=== PATIENT | male | born 1965 | race Caucasian/White ===

== ENCOUNTER 2020-09-09 10:30 | Outpatient (REF) | payer OTHER, SELFPAY ==
--- NOTE | 2020-09-09 | US_ITS ---
EXAMINATION: US COMPLETE ABDOMEN WITH LIVER ELASTOGRAPHY CLINICAL INFORMATION: Chronic viral hepatitis seen. COMPARISON: None. TECHNIQUE: Real-time imaging of the abdominal viscera. Noninvasive ultrasound liver fibrosis assessment is performed using Rusty ElastPQ point quantification shear wave elastography (pSWE) with a 5 MHz transducer. Multiple elastography samples are obtained. FINDINGS: PANCREAS: The pancreas is completely obscured by overlying gas. ABDOMINAL AORTA: The proximal abdominal aorta is normal caliber. The [id number]-[id number] abdominal aorta is obscured by overlying gas. INFERIOR VENA CAVA: Visualized portions are normal. LIVER: The liver demonstrates increased size, normal contour and increased echogenicity. No focal lesion or intrahepatic biliary duct dilatation. The right lobe measures 18.0 cm in length. The left lobe measures 13.2 cm in length. There is normal hepatopedal flow seen in the portal vein. Shear wave elastography provides a median stiffness of 1.65 m/s (reference: normal median stiffness is 0.81 - 1.22 m/s). The IQR/median stiffness to assess sampling precision is 0.06 (reference: optimal IQR/median stiffness is under 0.3). GALLBLADDER: The gallbladder is contracted with echogenic bile noted. COMMON BILE DUCT: Normal in caliber measuring 1.0 cm in diameter. RIGHT KIDNEY: There is anechoic cyst midpole measuring 1.7 x 1.7 x 1.4 cm right No hydronephrosis. No renal calculi or focal parenchymal lesions. The kidney measures 11.5 cm in maximum dimension. LEFT KIDNEY: The kidney measures 11.2 cm in maximum dimension. There is an anechoic cyst in the upper pole measuring 2.1 x 2.1 x 1.9 cm. A complex cyst seen in lower pole measuring 3.5 x 3.1 x 3.1 cm. There is a nonobstructive echogenic stone upper pole measuring 0.3 x 0.2 x 0.3 cm. SPLEEN: Normal. The spleen measures 11.4 cm in maximum dimension. FREE FLUID: None. US/US abdomen comp w elastography IMPRESSION: 1. Hepatomegaly with increased echogenicity. 2. Echogenic bile in a contracted gallbladder. 3. Bilateral renal cysts with a complex lower pole left renal cyst and a nonobstructive echogenic stone upper pole left kidney. 4. The pancreas is not visualized. 5. Elastography: [id number] fibrosis.
== END 2020-09-09 10:31 | disposition home or self-care (01) ==
LOC: HO.US 10:30
PROVIDERS: Visit Provider Family Medicine
DX: B18.2 Chronic viral hepatitis C (principal)
CPT/HCPCS: 76705; 76981

== ENCOUNTER 2022-06-13 09:21 | Emergency (ER) | payer OTHER, SELFPAY ==
--- NOTE | ~2022-06-13 | XR_ITS ---
EXAMINATION: XR WRIST-RIGHT CLINICAL INFORMATION: Status post fall, pain. COMPARISON: None TECHNIQUE: 3 views of the right wrist and dedicated view of the navicular, total of 4 images were obtained. FINDINGS: Moderate diffuse osteopenia. Moderate to severe osteoarthrosis is noted at the radiocarpal joint with evidence of widening of the scapholunate joint space, consistent with underlying scapholunate ligamentous tear. Mild osteoarthrosis at the distal radioulnar joint. Cystic changes are noted within the lunate, most consistent with posttraumatic and/or postsurgical degenerative changes. The carpal bones are intact. Mild osteoarthrosis is noted at the first carpometacarpal joint. Distal tapering is noted at the terminal phalanx of the index finger, most consistent with old posttraumatic change. No evidence of any displaced fracture, subluxation or dislocation. No radiopaque foreign body. XR/XR hand wrist RT IMPRESSION: 1. Moderate diffuse osteopenia. 2. Moderate to severe osteoarthrosis of the radiocarpal joint and features of scapholunate ligamentous tear. 3. Mild osteoarthrosis at the first carpometacarpal joint and distal radioulnar joint. 4. Cystic changes within the lunate, may represent posttraumatic and/or post degenerative cysts. 5. Smooth tapering with well-corticated bony involving the terminal phalanx of the second digit, most consistent with old posttraumatic change. 6. No radiographic evidence of any displaced fracture, subluxation or dislocation or radiopaque foreign body.
[2022-06-13 09:33] VITALS: BP 174/90; PULSE 71; RESP 17; TEMP 36.6; O2SAT 98; BMI 29.5
--- NOTE | 2022-06-13 12:16 | ED.EXTPRO ---
HPI - Extremity Problem General Chief complaint: Extremity Injury, Upper Stated complaint: Fall/ R wrist pain Time Seen by Provider: 06/13/22 12:16 Source: patient Mode of arrival: ambulatory Limitations: no limitations History of Present Illness HPI Narrative: 57-year-old male presents to the ER for evaluation of right lateral wrist pain after he fell off of a ladder yesterday. He reports missing the last 3 rungs of the ladder when he was painting in his house, he fell backward onto his buttock and used his right hand to brace himself. He has history of a left hip replacement and did not want a fall onto his left side. He reports swelling and pain in the hand That worsened this morning. He reports pain with any movement of the wrist. He denies any numbness, tingling, weakness. He is left-hand dominant. No other injuries. MD Complaint: joint swelling and joint pain Onset (ago): day(s) (1) Pain Consistency: constant Location: right and upper extremity Severity scale (1-10): 6 Quality: aching Radiation: none Relieving factors: rest and other ( Ice) Exacerbating factors: range of motion and palpation Associated symptoms: denies other symptoms Related Data Home Medications Medication Instructions Recorded Confirmed acamprosate 333 mg tablet,delayed 666 mg PO TID 09/04/20 release albuterol sulfate 2.5 mg/3 mL 2.5 mg inhalation Q4-6H PRN 09/04/20 (0.083 %) solution for nebulization bictegravir 50 mg-emtricitabine 1 tab PO DAILY 09/04/20 200 mg-tenofovir alafenam 25 mg tablet (Biktarvy) buprenorphine 300 mg/1.5 mL mg subcut 09/04/20 solution,exten.rel.subcutaneous syringe (Sublocade) bupropion HCl 150 mg 24 hr tablet, 150 mg PO QAM 09/04/20 extended release fluticasone furoate 100 1 inh inhalation DAILY 09/04/20 mcg-vilanterol 25 mcg/dose inhalation powder (Breo Ellipta) gabapentin 800 mg tablet 800 mg PO TID 09/04/20 hydroxyzine HCl 50 mg tablet 50 mg PO TID 09/04/20 inhalational spacing device #1 ea 09/04/20 (Aerochamber Plus Z Stat spacer) naproxen 500 mg tablet 500 mg PO BID 09/04/20 omeprazole 40 mg capsule,delayed 40 mg PO DAILY 09/04/20 release prazosin 1 mg capsule 1 mg PO BEDTIME 09/04/20 quetiapine 300 mg tablet 300 mg PO DAILY 09/04/20 sulfamethoxazole 800 1 tab PO Q12H 09/04/20 mg-trimethoprim 160 mg tablet (Bactrim DS) Previous Rx's Medication Instructions Recorded ibuprofen 600 mg tablet 600 mg PO Q8H PRN pain #20 tabs 06/13/22 Allergies Allergy/AdvReac Type Severity Reaction Status Date / Time No Known Allergies Allergy Unverified 06/11/20 16:55 [No Known Allergies*] Review of Systems Review of Systems: Constitutional: No Fever, No Chills Cardiovascular: No Chest Pain, No SOB Gastrointestinal: No Nausea, No Vomiting Musculoskeletal: + joint pain, No Myalgias Skin: No Skin Lesions, No rash Neuro: No Weakness, No Numbness, No Dizziness, No Headache Psych: No Anxiety/Panic, No Depression Heme/Lymph: No Bruising, No Lymphadenopathy PMFSH Past Medical History Medical History (Updated 06/13/22 @ 12:21 by THU Sung) Colitis COPD (chronic obstructive pulmonary disease) Hepatitis C HIV infection Hypertension IBS (irritable bowel syndrome) Opioid dependence Osteoarthritis of both hips Prediabetes PTSD (post-traumatic stress disorder) Surgical History (Updated 09/04/20 @ 13:45 by Rachelle Reyes CMA) History of right hip replacement Status post right shoulder hemiarthroplasty Social History Social History Advance Directives: No Advance Directives Information Provided: No Physical Exam Vital Signs: Vital Signs: Last Vital Signs Temp 98 F 06/13/22 09:33 Pulse 71 06/13/22 09:33 Resp 17 06/13/22 09:33 BP 174/90 H 06/13/22 09:33 Pulse Ox 98 06/13/22 09:33 O2 Del Method 06/13/22 09:33 BMI result Body Mass Index 29.5 Appearance: Alert. Oriented X3. No acute distress. HEENT: normal inspection CVS: Normal heart rate and rhythm. Pulses normal. Respiratory: No respiratory distress. Skin: Skin warm and dry. Normal skin color. Normal skin turgor. No rashes. Extremities: dorsal right wrist with mild generalized swelling. There is tenderness over the proximal 5th meta carpal as well as the styloid process of the ulna. Pain with flexion and extension of the right wrist. 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 No sensory or motor deficit. Neuro: Oriented X 3. Nonfocal Course Course Course Narrative: 57-year-old male presents to the ER with right wrist pain after he fell yesterday off a ladder, missing the last 3 runs falling back onto his buttock and using his right hand to brace himself. X-ray today does not show any acute fractures. There are multiple chronic findings including osteopenia, osteoarthritis and evidence of old injuries within the right hand. He has tenderness of the ulnar aspect of the wrist and hand, exacerbated by palpation and range of motion of the wrist. Will place in a velcro cock-up wrist splint for immobilization and support. he will follow-up with his PCP. stable for d/c Discharge Plan Discharge Clinical Impression: Sprain and strain of wrist Patient Disposition: Home, Self-Care Instructions: Wrist Sprain (ED) Additional Instructions: Your x-ray today did not show any broken bones but it did show chronic findings of osteopenia, osteoarthrosis and some post traumatic and post degenerative changes within the hand and joints. Recommend wearing the provided wrist splint as needed for comfort and support. Recommend icing your wrist several times per day and elevate whenever possible. Take the prescribed anti-inflammatory pain medication as needed for pain and swelling. Follow up with Orthopedics if you are still having pain despite conservative measures. If you develop new or worsening symptoms call 911 or come back to the ER for further evaluation. Prescriptions: New ibuprofen 600 mg tablet 600 mg PO Q8H PRN (Reason: pain) Qty: 20 0RF Referrals: [facility] [place] [facility] [Provider Group] Shayy Nielson NP [Primary Care Provider] - Discharge Date/Time: 06/13/22 13:14
== END 2022-06-13 13:14 | disposition home or self-care (01) ==
LOC: HO.ED 12:56
PROVIDERS: Emergency Provider Emergency Medicine; PCP Nurse Practitioner Primary Care
DX: S63.501A Unspecified sprain of right wrist, initial encounter (principal); S66.911A Strain of unspecified muscle, fascia and tendon at wrist and hand level, right hand, initial encounter; W11.XXXA Fall on and from ladder, initial encounter; Y93.9 Activity, unspecified; Y92.017 Garden or yard in single-family (private) house as the place of occurrence of the external cause; Y99.9 Unspecified external cause status; M85.841 Other specified disorders of bone density and structure, right hand; M19.031 Primary osteoarthritis, right wrist
CPT/HCPCS: 73110; 73130; 99282; 99283

== ENCOUNTER 2022-09-06 15:48 | Inpatient (IN) | payer OTHER, SELFPAY ==
--- NOTE | 2022-09-06 | ECG_ITS ---
Test Reason : CHEST PAIN Blood Pressure : / mmHG Vent. Rate : 063 BPM Atrial Rate : 063 BPM P-R Int : 134 ms QRS Dur : 076 ms QT Int : 440 ms P-R-T Axes : 026 058 047 degrees QTc Int : 450 ms Normal sinus rhythm Nonspecific T wave abnormality Abnormal ECG When compared with ECG of 26-OCT-2019 21:54, Vent. rate has decreased BY 47 BPM Nonspecific T wave abnormality now evident in Anterior leads Referred By: Generic ED Physician Electronically Signed By:GIULIANO CH
--- NOTE | ~2022-09-06 | XR_ITS ---
EXAMINATION: XR CHEST CLINICAL INFORMATION: Altered mental status COMPARISON: 10/27/2019 TECHNIQUE: Frontal view of the chest was obtained. FINDINGS: Heart size normal. No evidence of CHF. Previously seen multifocal airspace disease has cleared. Some coarse reticulonodular markings are seen at the lung bases. No consolidations, pleural effusions or lung masses are seen. Suture anchor present right humerus. XR/XR chest 1V IMPRESSION: No acute intrathoracic disease.
--- NOTE | ~2022-09-06 | CT_ITS ---
EXAMINATION: CT HEAD WITHOUT CONTRAST CLINICAL INFORMATION: Altered mental status fall. COMPARISON: Prior CT August 2017 TECHNIQUE: Contiguous axial imaging was performed from the skull base to vertex without intravenous administration of contrast. This CT examination was performed using dose optimization techniques as appropriate, variously including the following: *Automated exposure control *Adjustment of mA and/or kV according to patient size (this includes techniques or standardized protocols for targeted exams where dose is matched to indication/reason for exam; i.e. extremities or head) *Use of iterative reconstruction technique DLP: 762 mGy-cm FINDINGS: Soft tissues: Normal. No fracture. Chronic mucosal thickening of the left maxillary sinus new compared to prior. Mastoid air cells clear. There is no intracranial mass hemorrhage or cerebral edema. Ventricles and basal cisterns are unremarkable. CT/CT head/brain wo IV con IMPRESSION: No acute intracranial pathology.
--- NOTE | ~2022-09-06 | CT_ITS ---
EXAMINATION: CT ABDOMEN AND PELVIS WITHOUT CONTRAST CLINICAL INFORMATION: Elevated ammonia with lactic acidosis COMPARISON: Ultrasound abdomen 09/09/2020, CT abdomen pelvis 10/29/2019 TECHNIQUE: Multidetector volumetric imaging was performed from the superior aspect of the liver through the pubic symphysis. Sagittal and coronal reformatted images were obtained on the technologist's workstation. This CT examination was performed using dose optimization techniques as appropriate, variously including the following: *Automated exposure control *Adjustment of mA and/or kV according to patient size (this includes techniques or standardized protocols for targeted exams where dose is matched to indication/reason for exam; i.e. extremities or head) *Use of iterative reconstruction technique DLP: 722 mGy-cm FINDINGS: LUNG BASES: The visualized lung bases are unremarkable. LIVER, GALLBLADDER, AND BILIARY TREE: The liver is normal in size. The border is somewhat nodular. Attenuation is normal, greater than the spleen. No focal mass or bile duct dilatation is seen The gallbladder is unremarkable with no evidence of radiopaque gallstones, gallbladder wall thickening, or obvious pericholecystic inflammatory changes. PANCREAS: Unremarkable. SPLEEN: Unremarkable. ADRENAL GLANDS: Unremarkable. KIDNEYS AND URETERS: Right: The right kidney appears normal aside from the presence of a water density 1.7 cm benign Bosniak class I renal cyst. No pelvocaliectasis or solid renal masses. No nephrolithiasis. Left: There is a 4 mm nonobstructing calculus present at the upper pole left kidney. 2 cysts are present, one in the upper pole measuring 2.2 cm and one in the lower pole measuring 3.8 cm. The larger lower pole cyst has a probable tiny septation which was noted to be complex on ultrasound BLADDER: Detail obscured by bilateral hip prostheses. GASTROINTESTINAL TRACT: The small and large bowel are unremarkable. The appendix is unremarkable. ABDOMINAL WALL: No significant hernia is appreciated. LYMPH NODES: No retroperitoneal lymphadenopathy. VASCULAR: Calcific plaque without aneurysms PELVIC VISCERA: Cannot assess secondary to artifact. OSSEOUS STRUCTURES: Bilateral hip prostheses are present. Degenerative changes are present in the spine. There is a compression fracture of the superior endplate of L4, unchanged from prior. Marked degenerative changes with narrowing present at T12-L1 and L1-L2. CT/CT abdomen pelvis wo IV con IMPRESSION: 1. A cause for the patient's lactic acidosis has not been found. 2. Nodular border of the liver suggests possible cirrhosis. Correlate clinically and with lab values. 3. Incidental note made of bilateral benign Bosniak class I renal cysts which need no further follow-up, nonobstructing left renal calculus and degenerative changes in the spine with compression fracture superior endplate L4. Fleischner guidelines were followed.
[2022-09-06 16:16] VITALS: BP 132/76; BP 134/72; PULSE 66; PULSE 70; RESP 16; O2SAT 100; O2SAT 95; BMI 24.4
--- NOTE | 2022-09-06 16:50 | ED_ITS ---
HPI - Altered Mental Status General Chief Complaint: Fall Stated Complaint: AMS, UNSTEADY GAIT Time Seen by Provider: 09/06/22 16:48 Source: patient Mode of arrival: EMS Limitations: no limitations and altered mental status History of Present Illness HPI narrative: Patient history of HIV infection hepatitis-C PTSD opiate dependence hypertension came from sober home for increased confusion for last few days and near fall today patient is very confused unable answer questions afebrile no signs of head injury Related Data Home Medications Medication Instructions Recorded Confirmed acamprosate 333 mg tablet,delayed 666 mg PO TID 09/04/20 release albuterol sulfate 2.5 mg/3 mL 2.5 mg inhalation Q4-6H PRN 09/04/20 (0.083 %) solution for nebulization bictegravir 50 mg-emtricitabine 1 tab PO DAILY 09/04/20 200 mg-tenofovir alafenam 25 mg tablet (Biktarvy) buprenorphine 300 mg/1.5 mL mg subcut 09/04/20 solution,exten.rel.subcutaneous syringe (Sublocade) bupropion HCl 150 mg 24 hr tablet, 150 mg PO QAM 09/04/20 extended release fluticasone furoate 100 1 inh inhalation DAILY 09/04/20 mcg-vilanterol 25 mcg/dose inhalation powder (Breo Ellipta) gabapentin 800 mg tablet 800 mg PO TID 09/04/20 hydroxyzine HCl 50 mg tablet 50 mg PO TID 09/04/20 inhalational spacing device #1 ea 09/04/20 (Aerochamber Plus Z Stat spacer) naproxen 500 mg tablet 500 mg PO BID 09/04/20 omeprazole 40 mg capsule,delayed 40 mg PO DAILY 09/04/20 release prazosin 1 mg capsule 1 mg PO BEDTIME 09/04/20 quetiapine 300 mg tablet 300 mg PO DAILY 09/04/20 sulfamethoxazole 800 1 tab PO Q12H 09/04/20 mg-trimethoprim 160 mg tablet (Bactrim DS) Previous Rx's Medication Instructions Recorded ibuprofen 600 mg tablet 600 mg PO Q8H PRN pain #20 tabs 06/13/22 Allergies Allergy/AdvReac Type Severity Reaction Status Date / Time No Known Allergies Allergy Unverified 06/11/20 16:55 [No Known Allergies*] Review of Systems Review of Systems: Yes all other systems are reviewed and are negative PMFSH Past Medical History Medical History Colitis COPD (chronic obstructive pulmonary disease) Hepatitis C HIV infection Hypertension IBS (irritable bowel syndrome) Opioid dependence Osteoarthritis of both hips Prediabetes PTSD (post-traumatic stress disorder) Surgical History History of right hip replacement Status post right shoulder hemiarthroplasty Social History Social History Alcohol intake: former Smoked in Last 30 Days: Yes Use of substances other than those prescribed or required for medical reasons: No Advance Directives: No Advance Directives Information Provided: Yes Physical Exam ED Vital Signs: Vital Signs - 24 hr 09/06/22 16:16 09/06/22 20:02 09/07/22 00:03 Temperature 98.2 F 98.5 F Pulse Rate 66 67 68 Respiratory Rate 16 14 14 Blood Pressure 134/72 176/92 H 178/97 H Pulse Oximetry 95 96 95 Oxygen Delivery Method Room Air Room Air Room Air 09/07/22 00:13 09/07/22 00:14 09/07/22 00:15 Temperature Pulse Rate 64 70 68 Respiratory Rate Blood Pressure 166/88 H 166/85 H 155/79 H Pulse Oximetry Oxygen Delivery Method BMI result Body Mass Index 24.4 Appearance: Alert. And awake x1. No acute distress. Eyes: PERRLA, No Nystagmus ENT: Pharynx normal. Oral Mucosa moist Neck: Normal inspection. Neck supple. CVS: Normal heart rate and rhythm. Pulses normal. Respiratory: No respiratory distress. Equal air entry bilateral, no wheezing/rales/rhonchi Abdomen: Soft and nontender. Bowel sounds are present, no mass palpable, no CVA tenderness Skin: Skin warm and dry. Normal skin color. Normal skin turgor. Extremities: No lower extremity edema. No calf tenderness Neuro: Oriented X 3. No motor deficit. No sensory deficit.No cerebellar signs , cranial nerves II-XII intact Medications Administered Generic Name Dose Route Start Last Admin Trade Name Freq PRN Reason Stop Dose Admin Enoxaparin Sodium 40 mg 09/06/22 23:00 09/07/22 00:42 Enoxaparin Sodium 40 Mg/0.4 Ml Syringe SUBCUT 40 mg Q24H CRISTY Administration Lactated Ringer's 1,000 mls @ 100 mls/hr 09/06/22 23:00 09/07/22 00:42 Lr IVCONT 100 mls/hr .Q10H CRISTY Administration Sodium Chloride 3 ml 09/07/22 00:00 09/07/22 00:42 0.9 % Sodium Chloride Flush 3 Ml Syringe IVFLUSH 3 ml QSHIFT CRISTY Administration Discontinued Medications Generic Name Dose Route Start Last Admin Trade Name Beryl PRN Reason Stop Dose Admin Sodium Chloride 1,000 mls @ 999 mls/hr 09/06/22 16:50 09/06/22 18:51 Ns IV 09/06/22 17:50 Infused .Q1H1M ONE Infusion Piperacillin Sod/Tazobactam 50 mls @ 100 mls/hr 09/06/22 17:58 09/06/22 19:33 Sod 3.375 gm/ Sodium Chloride IV 09/06/22 18:27 Infused ONCE ONE Infusion Sodium Chloride 3,000 mls @ 1,000 mls/hr 09/06/22 17:59 09/07/22 00:43 Ns IV 09/06/22 20:58 Infused .Q3H STA Infusion Vancomycin HCl 2,000 mg in 520 mls @ 260 mls/hr 09/06/22 19:29 09/07/22 00:47 Vancomycin/Ns IV 09/06/22 21:28 Infused ONCE ONE Infusion Lactulose 20 gm 09/06/22 17:58 09/06/22 18:50 Lactulose 20 Gm/30 Ml Solution PO 09/06/22 17:59 20 gm ONCE ONE Administration Medical Decision Making Medical Decision Making MDM Narrative: Patient with history of HIV infection hepatitis-C PTSD opiate dependence hypertension came from sober home for increased confusion for last few days and near fall today lab workup showed leukocytosis 18.8 1000 with left shift with bandemia lactic acid of 5.2 ammonia of 78 cause for acute confusion not very clear source of infection unknown, possibility of meningitis or encephalopathy considered although there is no neck pain spinal tap was done which was clear sent for culture meningitis profile will give him empirical vancomycin and Zosyn for broad-spectrum coverage after receiving IV fluids patient alert and awake almost back to baseline Differential Diagnosis Substance abuse/sepsis/drug overdose/meningitis/encephalopathy/metabolic abnormality Admission/Observation Consideration of admission/observation: Escalation of care including admission/observation considered Consult Healthcare Provider Management of the patient was discussed with: Hospitalist Lab Data MDM Lab Attestation statement: I reviewed the patient's lab results. Result Diagrams: 09/06/22 17:32 09/07/22 00:24 Labs: Lab Results 09/06/22 09/06/22 09/06/22 Range/Units 17:17 17:17 17:31 WBC (4.8-10.8) X10*3/uL RBC (4.60-5.80) X10*6/uL Hgb (14.0-18.0) g/dl Hct (42.0-52.0) % MCV (80.0-98.0) fL MCH (27.0-33.0) pg MCHC (31.0-36.0) g/dl RDW (11.0-16.0) % Plt Count (160-400) X10*3/uL MPV (9.4-12.4) fL Immature Gran % (Auto) (0.0-0.4) % Neut % (Auto) (45-73) % Lymph % (Auto) (20-40) % [place] % (Auto) (2-11) % Eos % (Auto) (0-4) % Baso % (Auto) (0-2) % Lymph # (Auto) (1.2-4.9) X10*3/uL [place] # (Auto) (0.1-1.2) X10*3/uL Eos # (Auto) (0.0-0.4) X10*3/uL Baso # (Auto) (0.0-0.2) X10*3/uL Abs Immat Gran (auto) (0.00-0.03) X10*3/uL Absolute Neuts (auto) (2.0-8.3) x10*3/uL Absolute Nucleated RBC (0.0-0.012) X10*3/uL Nucleated RBC % (auto) (0.0-0.2) /100WBC PT 11.9 (10.0-13.1) SEC INR 1.0 (0.9-1.1) Sodium (135-145) mmol/L Potassium (3.3-5.1) mmol/L Chloride (96-108) mmol/L Carbon Dioxide (22-29) mmol/L Anion Gap (12-20) BUN (9-16) mg/dL Creatinine (0.5-1.4) mg/dL Estim Creat Clear Calc Estimated GFR Random Glucose (60-115) mg/dL Lactic Acid (0.5-2.0) mmol/L Lactic Acid F/U @ 2Hr (0.5-2.0) mmol/L Lactic Acid F/U @ 4Hr (0.5-2.0) mmol/L Calcium (8.4-10.2) mg/dL Magnesium (1.6-2.6) mg/dL Total Bilirubin (0.0-1.0) mg/dL AST (5-37) U/L ALT (0-40) U/L Alkaline Phosphatase (39-117) U/L Ammonia 78 H (13-55) umol/L Total Protein (6.5-8.0) g/dL Albumin (3.5-5.0) g/dL Urine Color Urine Appearance Urine pH (5.0-9.0) Ur Specific [place] (1.005-1.025) Urine Protein (Neg-Trace) mg/dL Urine Glucose (UA) (Negative) mg/dL Urine Ketones (Negative) mg/dL Urine Blood (Negative) Urine Nitrite (Negative) Ur Leukocyte Esterase (Negative) CSF Tube Number CSF Volume ML CSF Appearance CSF Color CSF WBC MM*3 CSF RBC MM*3 CSF Neutrophils % CSF Lymphocytes % CSF Monocytes % % CSF Appearance (b) CSF Glucose mg/dL CSF Total Protein (15-45) mg/dL Urine Opiates Screen (Not Detect) Urine Fentanyl Screen (Not Detect) Ur Barbiturates Screen (Not Detect) Ur Phencyclidine Scrn (Not Detect) Ur Amphetamines Screen (Not Detect) U Benzodiazepines Scrn (Not Detect) Urine Cocaine Screen (Not Detect) U Marijuana (THC) Screen (Not Detect) Influenza Type A (PCR) NEGATIVE (Negative) Influenza Type B (PCR) NEGATIVE (Negative) RSV RNA Qual (PCR) NEGATIVE (Negative) SARS-CoV-2 RNA (RT-PCR) NEGATIVE (Negative) 09/06/22 09/06/22 09/06/22 Range/Units 17:31 17:32 17:32 WBC 18.8 H (4.8-10.8) X10*3/uL RBC 4.66 (4.60-5.80) X10*6/uL Hgb 14.8 (14.0-18.0) g/dl Hct 44.5 (42.0-52.0) % MCV 95.5 (80.0-98.0) fL MCH 31.8 (27.0-33.0) pg MCHC 33.3 (31.0-36.0) g/dl RDW 13.4 (11.0-16.0) % Plt Count 185 (160-400) X10*3/uL MPV 11.3 (9.4-12.4) fL Immature Gran % (Auto) 1.2 H (0.0-0.4) % Neut % (Auto) 79.8 H (45-73) % Lymph % (Auto) 12.5 L (20-40) % [place] % (Auto) 5.7 (2-11) % Eos % (Auto) 0.2 (0-4) % Baso % (Auto) 0.6 (0-2) % Lymph # (Auto) 2.4 (1.2-4.9) X10*3/uL [place] # (Auto) 1.1 (0.1-1.2) X10*3/uL Eos # (Auto) 0.0 (0.0-0.4) X10*3/uL Baso # (Auto) 0.1 (0.0-0.2) X10*3/uL Abs Immat Gran (auto) 0.23 H (0.00-0.03) X10*3/uL Absolute Neuts (auto) 14.9 H (2.0-8.3) x10*3/uL Absolute Nucleated RBC 0.000 (0.0-0.012) X10*3/uL Nucleated RBC % (auto) 0.0 (0.0-0.2) /100WBC PT (10.0-13.1) SEC INR (0.9-1.1) Sodium 140 (135-145) mmol/L Potassium 5.2 H (3.3-5.1) mmol/L Chloride 105 (96-108) mmol/L Carbon Dioxide 26 (22-29) mmol/L Anion Gap 14 (12-20) BUN 18 H (9-16) mg/dL Creatinine 0.96 (0.5-1.4) mg/dL Estim Creat Clear Calc 97.1 Estimated GFR > 60 Random Glucose 85 (60-115) mg/dL Lactic Acid 5.2 H* (0.5-2.0) mmol/L Lactic Acid F/U @ 2Hr (0.5-2.0) mmol/L Lactic Acid F/U @ 4Hr (0.5-2.0) mmol/L Calcium 8.9 (8.4-10.2) mg/dL Magnesium 2.4 (1.6-2.6) mg/dL Total Bilirubin 0.8 (0.0-1.0) mg/dL AST 63 H (5-37) U/L ALT 39 (0-40) U/L Alkaline Phosphatase 225 H (39-117) U/L Ammonia (13-55) umol/L Total Protein 8.0 (6.5-8.0) g/dL Albumin 3.9 (3.5-5.0) g/dL Urine Color Urine Appearance Urine pH (5.0-9.0) Ur Specific [place] (1.005-1.025) Urine Protein (Neg-Trace) mg/dL Urine Glucose (UA) (Negative) mg/dL Urine Ketones (Negative) mg/dL Urine Blood (Negative) Urine Nitrite (Negative) Ur Leukocyte Esterase (Negative) CSF Tube Number CSF Volume ML CSF Appearance CSF Color CSF WBC MM*3 CSF RBC MM*3 CSF Neutrophils % CSF Lymphocytes % CSF Monocytes % % CSF Appearance (b) CSF Glucose mg/dL CSF Total Protein (15-45) mg/dL Urine Opiates Screen (Not Detect) Urine Fentanyl Screen (Not Detect) Ur Barbiturates Screen (Not Detect) Ur Phencyclidine Scrn (Not Detect) Ur Amphetamines Screen (Not Detect) U Benzodiazepines Scrn (Not Detect) Urine Cocaine Screen (Not Detect) U Marijuana (THC) Screen (Not Detect) Influenza Type A (PCR) (Negative) Influenza Type B (PCR) (Negative) RSV RNA Qual (PCR) (Negative) SARS-CoV-2 RNA (RT-PCR) (Negative) 09/06/22 09/06/22 09/06/22 Range/Units 20:02 20:02 20:02 WBC (4.8-10.8) X10*3/uL RBC (4.60-5.80) X10*6/uL Hgb (14.0-18.0) g/dl Hct (42.0-52.0) % MCV (80.0-98.0) fL MCH (27.0-33.0) pg MCHC (31.0-36.0) g/dl RDW (11.0-16.0) % Plt Count (160-400) X10*3/uL MPV (9.4-12.4) fL Immature Gran % (Auto) (0.0-0.4) % Neut % (Auto) (45-73) % Lymph % (Auto) (20-40) % [place] % (Auto) (2-11) % Eos % (Auto) (0-4) % Baso % (Auto) (0-2) % Lymph # (Auto) (1.2-4.9) X10*3/uL [place] # (Auto) (0.1-1.2) X10*3/uL Eos # (Auto) (0.0-0.4) X10*3/uL Baso # (Auto) (0.0-0.2) X10*3/uL Abs Immat Gran (auto) (0.00-0.03) X10*3/uL Absolute Neuts (auto) (2.0-8.3) x10*3/uL Absolute Nucleated RBC (0.0-0.012) X10*3/uL Nucleated RBC % (auto) (0.0-0.2) /100WBC PT (10.0-13.1) SEC INR (0.9-1.1) Sodium (135-145) mmol/L Potassium (3.3-5.1) mmol/L Chloride (96-108) mmol/L Carbon Dioxide (22-29) mmol/L Anion Gap (12-20) BUN (9-16) mg/dL Creatinine (0.5-1.4) mg/dL Estim Creat Clear Calc Estimated GFR Random Glucose (60-115) mg/dL Lactic Acid (0.5-2.0) mmol/L Lactic Acid F/U @ 2Hr (0.5-2.0) mmol/L Lactic Acid F/U @ 4Hr (0.5-2.0) mmol/L Calcium (8.4-10.2) mg/dL Magnesium (1.6-2.6) mg/dL Total Bilirubin (0.0-1.0) mg/dL AST (5-37) U/L ALT (0-40) U/L Alkaline Phosphatase (39-117) U/L Ammonia (13-55) umol/L Total Protein (6.5-8.0) g/dL Albumin (3.5-5.0) g/dL Urine Color Urine Appearance Urine pH (5.0-9.0) Ur Specific [place] (1.005-1.025) Urine Protein (Neg-Trace) mg/dL Urine Glucose (UA) (Negative) mg/dL Urine Ketones (Negative) mg/dL Urine Blood (Negative) Urine Nitrite (Negative) Ur Leukocyte Esterase (Negative) CSF Tube Number 1 1 4 CSF Volume 1.5 2.0 ML CSF Appearance CLEAR HAZY CSF Color COLORLESS PINK CSF WBC 2 5 MM*3 CSF RBC 64 828 MM*3 CSF Neutrophils 50 50 % CSF Lymphocytes 50 % CSF Monocytes % 50 % CSF Appearance (b) Clear, Colorless CSF Glucose 58 mg/dL CSF Total Protein 50.5 H (15-45) mg/dL Urine Opiates Screen (Not Detect) Urine Fentanyl Screen (Not Detect) Ur Barbiturates Screen (Not Detect) Ur Phencyclidine Scrn (Not Detect) Ur Amphetamines Screen (Not Detect) U Benzodiazepines Scrn (Not Detect) Urine Cocaine Screen (Not Detect) U Marijuana (THC) Screen (Not Detect) Influenza Type A (PCR) (Negative) Influenza Type B (PCR) (Negative) RSV RNA Qual (PCR) (Negative) SARS-CoV-2 RNA (RT-PCR) (Negative) 09/06/22 09/06/22 09/06/22 Range/Units 20:28 20:28 20:28 WBC (4.8-10.8) X10*3/uL RBC (4.60-5.80) X10*6/uL Hgb (14.0-18.0) g/dl Hct (42.0-52.0) % MCV (80.0-98.0) fL MCH (27.0-33.0) pg MCHC (31.0-36.0) g/dl RDW (11.0-16.0) % Plt Count (160-400) X10*3/uL MPV (9.4-12.4) fL Immature Gran % (Auto) (0.0-0.4) % Neut % (Auto) (45-73) % Lymph % (Auto) (20-40) % [place] % (Auto) (2-11) % Eos % (Auto) (0-4) % Baso % (Auto) (0-2) % Lymph # (Auto) (1.2-4.9) X10*3/uL [place] # (Auto) (0.1-1.2) X10*3/uL Eos # (Auto) (0.0-0.4) X10*3/uL Baso # (Auto) (0.0-0.2) X10*3/uL Abs Immat Gran (auto) (0.00-0.03) X10*3/uL Absolute Neuts (auto) (2.0-8.3) x10*3/uL Absolute Nucleated RBC (0.0-0.012) X10*3/uL Nucleated RBC % (auto) (0.0-0.2) /100WBC PT (10.0-13.1) SEC INR (0.9-1.1) Sodium (135-145) mmol/L Potassium (3.3-5.1) mmol/L Chloride (96-108) mmol/L Carbon Dioxide (22-29) mmol/L Anion Gap (12-20) BUN (9-16) mg/dL Creatinine (0.5-1.4) mg/dL Estim Creat Clear Calc Estimated GFR Random Glucose (60-115) mg/dL Lactic Acid (0.5-2.0) mmol/L Lactic Acid F/U @ 2Hr 2.8 H* (0.5-2.0) mmol/L Lactic Acid F/U @ 4Hr (0.5-2.0) mmol/L Calcium (8.4-10.2) mg/dL Magnesium (1.6-2.6) mg/dL Total Bilirubin (0.0-1.0) mg/dL AST (5-37) U/L ALT (0-40) U/L Alkaline Phosphatase (39-117) U/L Ammonia (13-55) umol/L Total Protein (6.5-8.0) g/dL Albumin (3.5-5.0) g/dL Urine Color Yellow Urine Appearance Clear Urine pH 7.5 (5.0-9.0) Ur Specific [place] 1.010 (1.005-1.025) Urine Protein Negative (Neg-Trace) mg/dL Urine Glucose (UA) Negative (Negative) mg/dL Urine Ketones Negative (Negative) mg/dL Urine Blood Negative (Negative) Urine Nitrite Negative (Negative) Ur Leukocyte Esterase Negative (Negative) CSF Tube Number CSF Volume ML CSF Appearance CSF Color CSF WBC MM*3 CSF RBC MM*3 CSF Neutrophils % CSF Lymphocytes % CSF Monocytes % % CSF Appearance (b) CSF Glucose mg/dL CSF Total Protein (15-45) mg/dL Urine Opiates Screen Not Detected (Not Detect) Urine Fentanyl Screen Not Detected (Not Detect) Ur Barbiturates Screen Not Detected (Not Detect) Ur Phencyclidine Scrn Not Detected (Not Detect) Ur Amphetamines Screen Not Detected (Not Detect) U Benzodiazepines Scrn Not Detected (Not Detect) Urine Cocaine Screen Not Detected (Not Detect) U Marijuana (THC) Screen Not Detected (Not Detect) Influenza Type A (PCR) (Negative) Influenza Type B (PCR) (Negative) RSV RNA Qual (PCR) (Negative) SARS-CoV-2 RNA (RT-PCR) (Negative) 09/07/22 09/07/22 Range/Units 00:24 00:24 WBC (4.8-10.8) X10*3/uL RBC (4.60-5.80) X10*6/uL Hgb (14.0-18.0) g/dl Hct (42.0-52.0) % MCV (80.0-98.0) fL MCH (27.0-33.0) pg MCHC (31.0-36.0) g/dl RDW (11.0-16.0) % Plt Count (160-400) X10*3/uL MPV (9.4-12.4) fL Immature Gran % (Auto) (0.0-0.4) % Neut % (Auto) (45-73) % Lymph % (Auto) (20-40) % [place] % (Auto) (2-11) % Eos % (Auto) (0-4) % Baso % (Auto) (0-2) % Lymph # (Auto) (1.2-4.9) X10*3/uL [place] # (Auto) (0.1-1.2) X10*3/uL Eos # (Auto) (0.0-0.4) X10*3/uL Baso # (Auto) (0.0-0.2) X10*3/uL Abs Immat Gran (auto) (0.00-0.03) X10*3/uL Absolute Neuts (auto) (2.0-8.3) x10*3/uL Absolute Nucleated RBC (0.0-0.012) X10*3/uL Nucleated RBC % (auto) (0.0-0.2) /100WBC PT (10.0-13.1) SEC INR (0.9-1.1) Sodium 142 (135-145) mmol/L Potassium 4.7 (3.3-5.1) mmol/L Chloride 107 (96-108) mmol/L Carbon Dioxide 24 (22-29) mmol/L Anion Gap 16 (12-20) BUN 13 (9-16) mg/dL Creatinine 0.89 (0.5-1.4) mg/dL Estim Creat Clear Calc 104.7 Estimated GFR > 60 Random Glucose 81 (60-115) mg/dL Lactic Acid (0.5-2.0) mmol/L Lactic Acid F/U @ 2Hr (0.5-2.0) mmol/L Lactic Acid F/U @ 4Hr 6.3 H* (0.5-2.0) mmol/L Calcium 8.4 (8.4-10.2) mg/dL Magnesium (1.6-2.6) mg/dL Total Bilirubin (0.0-1.0) mg/dL AST (5-37) U/L ALT (0-40) U/L Alkaline Phosphatase (39-117) U/L Ammonia (13-55) umol/L Total Protein (6.5-8.0) g/dL Albumin (3.5-5.0) g/dL Urine Color Urine Appearance Urine pH (5.0-9.0) Ur Specific [place] (1.005-1.025) Urine Protein (Neg-Trace) mg/dL Urine Glucose (UA) (Negative) mg/dL Urine Ketones (Negative) mg/dL Urine Blood (Negative) Urine Nitrite (Negative) Ur Leukocyte Esterase (Negative) CSF Tube Number CSF Volume ML CSF Appearance CSF Color CSF WBC MM*3 CSF RBC MM*3 CSF Neutrophils % CSF Lymphocytes % CSF Monocytes % % CSF Appearance (b) CSF Glucose mg/dL CSF Total Protein (15-45) mg/dL Urine Opiates Screen (Not Detect) Urine Fentanyl Screen (Not Detect) Ur Barbiturates Screen (Not Detect) Ur Phencyclidine Scrn (Not Detect) Ur Amphetamines Screen (Not Detect) U Benzodiazepines Scrn (Not Detect) Urine Cocaine Screen (Not Detect) U Marijuana (THC) Screen (Not Detect) Influenza Type A (PCR) (Negative) Influenza Type B (PCR) (Negative) RSV RNA Qual (PCR) (Negative) SARS-CoV-2 RNA (RT-PCR) (Negative) Independent Interpretation I performed an independent interpretation of an: EKG Interpretation: Normal sinus rhythm heart rate 63 beats per minute nonspecific T-wave changes no acute ST wave changes no acute ischemia Radiology Impression Discussion of test interpretation with radiology: I have reviewed the radi ologist's reading. Procedures Lumbar Puncture Time Out Performed: Yes Patient Position: upright Skin Prep: Povidone-Iodine 1% Local Anesthetic: lidocaine 2% Amount of anesthesia used (mL): 4 Spinal Needle Gauge: 22G Interspace Used: L4-L5 Fluid Initially Obtained: clear Complications: none Critical Care Time Critical Care Time Critical Care Time: Yes Total Critical Care Time: 65 Attestation: The patient was critically ill with a high probability of imminent or life threatening deterioration. I spent greater than 70 minutes of discontinuous time evaluating the patient,delivering critical care at the bedside, discussing and evaluating pertinent data with consultants. Critical care time does not include time spent performing separately billable procedures or teaching. Total time spent performing critical care was 65 minutes. Discharge Plan Discharge Clinical Impression: Leukocytosis, AMS (altered mental status), Acidosis, lactic, Hyperammonemia Patient Disposition: Admitted As Inpatient
[2022-09-06] MEDS: 0.9 % Sodium Chloride 1,000 ML 999 ML IV (17:19)
--- NOTE | 2022-09-06 17:19 | PC.NURSE ---
Pt remains confused, unable to recite year, slo to respond to other questions like name and here he is. NSR on monitor. Fluids started. Skin pwd. No unilateral weakness on exam. Breathing easy, unlabored. Denies pain.
[2022-09-06 17:37] LABS: MANUAL DIFF FLAG NO
[2022-09-06 17:41] LABS: Prothrombin Time 11.9 SEC (10.0-13.1)
[2022-09-06 17:43] LABS: Basophils Absolute Auto 0.1 X10*3/uL (0.0-0.2); Basophils Percent Auto 0.6 % (0-2); Eosinophils Percent Auto 0.2 % (0-4); Hematocrit 44.5 % (42.0-52.0); Hemoglobin 14.8 g/dl (14.0-18.0); Imm Gran Abs Auto 0.23 X10*3/uL (0.00-0.03); Imm Gran Pct Auto 1.2 % (0.0-0.4); Lymphocytes Absolute Auto 2.4 X10*3/uL (1.2-4.9); Lymphocytes Percent Auto 12.5 % (20-40); Mean Corpuscular HGB Conc 33.3 g/dl (31.0-36.0); Mean Corpuscular Hemoglobin 31.8 pg (27.0-33.0); Mean Corpuscular Volume 95.5 fL (80.0-98.0); Mean Platelet Volume 11.3 fL (9.4-12.4); Monocytes Absolute Auto 1.1 X10*3/uL (0.1-1.2); Monocytes Percent Auto 5.7 % (2-11); Neutrophils Absolute Auto 14.9 x10*3/uL (2.0-8.3); Neutrophils Percent Auto 79.8 % (45-73); Platelet Count 185 X10*3/uL (160-400); Red Blood Count 4.66 X10*6/uL (4.60-5.80); Red Cell Distribution Width 13.4 % (11.0-16.0); White Blood Count 18.8 X10*3/uL (4.8-10.8)
[2022-09-06 17:49] LABS: Ammonia 78 umol/L (13-55)
[2022-09-06 17:57] LABS: Alanine Aminotransferase 39 U/L (0-40); Albumin Level 3.9 g/dL (3.5-5.0); Alkaline Phosphatase 225 U/L (39-117); Anion Gap 14 (12-20); Aspartate Amino Transferase 63 U/L (5-37); Bilirubin Total 0.8 mg/dL (0.0-1.0); Blood Urea Nitrogen 18 mg/dL (9-16); Calcium 8.9 mg/dL (8.4-10.2); Carbon Dioxide 26 mmol/L (22-29); Chloride 105 mmol/L (96-108); Creatinine Clr Calc Pharmacy 97.1; Estimated Glomerular Filt Rate > 60; Glucose Random 85 mg/dL (60-115); Magnesium 2.4 mg/dL (1.6-2.6); Potassium 5.2 mmol/L (3.3-5.1); Sodium 140 mmol/L (135-145)
[2022-09-06 18:00] LABS: Lactic Acid 5.2 mmol/L (0.5-2.0)
[2022-09-06 18:02] LABS: Influenza A PCR NEGATIVE (Negative); Influenza B PCR NEGATIVE (Negative); Resp Syncy Virus RNA Qual PCR NEGATIVE (Negative); SARS COV2 PCR INHOUSE NEGATIVE (Negative)
[2022-09-06] MEDS: Piperacillin Sodium/Tazobactam 3.375 GM in 0.9 % Sodium Chloride 50 ML IV (18:49)
[2022-09-06] MEDS: Lactulose 20 GM/30 ML SOLUTION PO (18:50)
[2022-09-06] MEDS: 0.9 % Sodium Chloride 3,000 ML 1000 ML IV (18:51)
[2022-09-06 19:36] LABS: Reflex Lactate? Lactic Acid Added
[2022-09-06 20:02] VITALS: BP 176/92; PULSE 67; RESP 14; TEMP 36.8; O2SAT 96
[2022-09-06 20:13] LABS: CSF Tube # 1
[2022-09-06 20:28] LABS: CSF Appearance Clear, Colorless
[2022-09-06 20:35] LABS: Glucose CSF 58 mg/dL; Total Protein CSF 50.5 mg/dL (15-45)
[2022-09-06 20:45] LABS: Appearance Urine Clear; Color Urine Yellow; Glucose Urine UA Negative (Negative); Leukocyte Esterase Urine Negative (Negative); Nitrite Urine Negative (Negative); PH 7.5 (5.0-9.0); Urine Blood Negative (Negative); Urine Ketones Negative (Negative); Urine Protein Negative (Neg-Trace)
[2022-09-06 20:48] LABS: Amphetamine Screen Urine Not Detected (Not Detect); Barbiturates, Urine Not Detected (Not Detect); Benzodiazepines Screen Urine Not Detected (Not Detect); Cannabinoid Screen Urine Not Detected (Not Detect); Cocaine Screen Urine Not Detected (Not Detect); Fentanyl, urine Not Detected (Not Detect); Opiate Screen Urine Not Detected (Not Detect); Phencyclidine Screen Urine Not Detected (Not Detect)
[2022-09-06 20:53] LABS: ~Lactic Acid-LAB USE ONLY 2.8 mmol/L (0.5-2.0)
--- NOTE | 2022-09-06 21:19 | PC.NURSE ---
Pt'S v/s stable, pt is on the cadiac monitor and it shows NSR. Pt seems to be talking to himself frequency. Pt had 2 bags of fluids running when this nurse arrived. Pt has the 3rd IV bag running and Vanco as order by the provider. Pt has been urinating on the urine.
[2022-09-06 21:30] LABS: Appearance CSF CLEAR; CSF Tube # 1; CSF Volume 1.5 ML; Color CSF COLORLESS; Lymphocytes CSF 50 %; Neutrophils CSF 50 %; Red Blood Cell CSF 64 MM*3; White Blood Cell CSF 2 MM*3
[2022-09-06 21:31] LABS: Appearance CSF HAZY; CSF Monos 50 %; CSF Tube # 4; Color CSF PINK; Neutrophils CSF 50 %; Red Blood Cell CSF 828 MM*3; White Blood Cell CSF 5 MM*3
--- NOTE | 2022-09-06 21:33 | MHC.EDTECH ---
Spoke with Dr. Breaux second order for EKG ordered at 16:50 will be canceled
[2022-09-06 22:31] LABS: Reflex Lactate? 2 Y
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
[2022-09-07] VITALS (7 sets, daily range): BP systolic 127–178; BP diastolic 74–97; PULSE 56–71; RESP 14–19; TEMP 36.6–36.9; O2SAT 93–98
[2022-09-07] MEDS: 0.9 % Sodium Chloride Flush 3 ML SYRINGE IVFLUSH ×2 (00:42→07:26)
[2022-09-07] MEDS: Enoxaparin Sodium 40 MG/0.4 ML SYRINGE SUBCUT (00:42)
[2022-09-07] MEDS: Lactated Ringers 1,000 ML 100 ML IVCONT ×2 (00:42→07:28)
[2022-09-07 00:55] LABS: Anion Gap 16 (12-20); Blood Urea Nitrogen 13 mg/dL (9-16); Calcium 8.4 mg/dL (8.4-10.2); Carbon Dioxide 24 mmol/L (22-29); Chloride 107 mmol/L (96-108); Creatinine Clr Calc Pharmacy 104.7; Estimated Glomerular Filt Rate > 60; Glucose Random 81 mg/dL (60-115); Potassium 4.7 mmol/L (3.3-5.1); Sodium 142 mmol/L (135-145)
[2022-09-07 00:58] LABS: ~Lactic Acid-LAB USE ONLY 6.3 mmol/L (0.5-2.0)
--- NOTE | 2022-09-07 01:01 | MHC.EDTECH ---
completed orthostatics on pt. pt tolerated well. No dizziness when standing.
[2022-09-07] MEDS: Lactulose 20 GM/30 ML SOLUTION PO (07:26)
[2022-09-07 08:17] LABS: MANUAL DIFF FLAG NO
[2022-09-07 08:20] LABS: Basophils Absolute Auto 0.1 X10*3/uL (0.0-0.2); Basophils Percent Auto 0.6 % (0-2); Eosinophils Absolute Auto 0.1 X10*3/uL (0.0-0.4); Eosinophils Percent Auto 0.6 % (0-4); Hematocrit 42.8 % (42.0-52.0); Hemoglobin 14.4 g/dl (14.0-18.0); Imm Gran Pct Auto 0.7 % (0.0-0.4); Lymphocytes Absolute Auto 2.3 X10*3/uL (1.2-4.9); Lymphocytes Percent Auto 16.6 % (20-40); Mean Corpuscular HGB Conc 33.6 g/dl (31.0-36.0); Mean Corpuscular Hemoglobin 32.1 pg (27.0-33.0); Mean Corpuscular Volume 95.5 fL (80.0-98.0); Mean Platelet Volume 11.3 fL (9.4-12.4); Monocytes Absolute Auto 1.1 X10*3/uL (0.1-1.2); Monocytes Percent Auto 8.2 % (2-11); Neutrophils Absolute Auto 10.2 x10*3/uL (2.0-8.3); Neutrophils Percent Auto 73.3 % (45-73); Platelet Count 171 X10*3/uL (160-400); Red Blood Count 4.48 X10*6/uL (4.60-5.80); Red Cell Distribution Width 13.4 % (11.0-16.0)
--- NOTE | 2022-09-07 08:22 | PHA.MEDREC ---
Pharmacy Consult ? Medication Reconciliation Pharmacy has completed the medication reconciliation. PATIENT GETS METHADONE FROM [facility]. GOT 13 TAKE HOME BOTTLES ON 08/30. dOSE IS BEING DECREASED SO DOSE FOR 09/07 IS 79 MG LUCINDA
[2022-09-07 08:36] LABS: Anion Gap 14 (12-20); Blood Urea Nitrogen 10 mg/dL (9-16); Calcium 8.3 mg/dL (8.4-10.2); Carbon Dioxide 23 mmol/L (22-29); Chloride 105 mmol/L (96-108); Creatinine Clr Calc Pharmacy 117.9; Estimated Glomerular Filt Rate > 60; Glucose Random 99 mg/dL (60-115); Potassium 3.7 mmol/L (3.3-5.1); Sodium 138 mmol/L (135-145)
--- NOTE | 2022-09-07 08:58 | MHC.CM.PN ---
Addendum entered by Denise Eldridge 09/07/22 09:01: IMM delivered. Original Note: Meet with patient for CM assessment. Patient awake and alert, answering questions appropriately. Reports living at sober living house @ [address] [facility], has been living there for 4-5 months. No services in the home prior to admission. Reports he does have PCP but can not remember the name. Vax'd and boosted for COVID. Declines completing HCP. D/C plan- Home no services. Will need ride [employer] shuttle or Lyft @ d/c.
--- NOTE | 2022-09-07 11:32 | PC.NURSE ---
PT AOX4 AMB WITH STEADY GAIT, STATES HE WANTS TO GO HOME
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
== END 2022-09-07 13:30 | DRG 442 ==
LOC: HO.ED 09-07 01:47 → HO.EDOVER 09-07 06:05
PROVIDERS: Admitting Provider Internal Medicine; Emergency Provider Internal Medicine; PCP Nurse Practitioner Primary Care; Visit Provider Hospitalist
DX: K76.82 Hepatic encephalopathy (principal); E87.20 Acidosis, unspecified; F11.20 Opioid dependence, uncomplicated; E86.0 Dehydration; Z21 Asymptomatic human immunodeficiency virus [HIV] infection status; F43.10 Post-traumatic stress disorder, unspecified; K74.60 Unspecified cirrhosis of liver; F17.210 Nicotine dependence, cigarettes, uncomplicated; Z71.6 Tobacco abuse counseling; Z20.822 Contact with and (suspected) exposure to COVID-19; Z96.641 Presence of right artificial hip joint; Z79.899 Other long term (current) drug therapy
CPT/HCPCS: 0241U; 36415; 70450; 71045; 74176; 80048; 80053; 80307; 81003; 82140; 82945; 83605; 83735; 84157; 85025; 85610; 87015; 87040; 87070; 87205; 89051; 93005; 99285; J1650; J2543; J3370

== ENCOUNTER 2022-12-08 08:34 | Emergency (ER) | payer OTHER, SELFPAY ==
--- NOTE | ~2022-12-08 | XR_ITS ---
EXAMINATION: XR HIP, RIGHT CLINICAL INFORMATION: Fall with right hip pain COMPARISON: November 2019. TECHNIQUE: AP view pelvis and 2 additional views of the right hip. FINDINGS: A right hip prosthesis is in position. Fracture of the proximal right femur observed in the right intertrochanteric region. The right hip prosthesis appears intact. No distinct acetabular or pubic disruption. A left hip prosthesis is now observed, new since November 2019. XR/XR hip RT w PEL1V IMPRESSION: Fracture of the proximal right femur, adjacent to the right hip prosthesis.
[2022-12-08 08:40] VITALS: BP 131/75; BP 184/96; PULSE 62; PULSE 68; RESP 18; TEMP 36.9; O2SAT 97; O2SAT 99; BMI 27.8
--- NOTE | 2022-12-08 08:40 | ED.GENADULT ---
HPI - General Adult General Chief complaint: Fall <THU Love - Last Filed: 12/08/22 16:58> Stated complaint: R HIP PAIN S/P FALL,-LOC,-THINNERS,-DEFORMITY <THU Love Last Filed: 12/08/22 16:58> Time Seen by Provider: 12/08/22 08:39 <THU Love Last Filed: 12/08/22 16:58> Source: patient and EMS <THU Love Last Filed: 12/08/22 16:58> Mode of arrival: EMS <THU Love Last Filed: 12/08/22 16:58> Limitations: no limitations <THU Love Last Filed: 12/08/22 16:58> History of Present Illness HPI narrative: Patient is a 57 year old assigned male at with a history of bilateral hip replacement presenting to the emergency department today with right hip pain after a trip and fall. Patient states that he stood up too quickly, tripped over his own feet, and landed on his right hip. Patient denies hitting his head with the incident. Patient denies any loss of consciousness with the incident. Patient denies any dizziness, lightheadedness, abdominal pain, nausea, vomiting, fever, chills, blurry vision, double vision, loss of vision, chest pain, difficulty breathing, shortness of breath, back pain, night sweats, pain with urination, increased urinary frequency, increased urinary urgency, blood in his urine or stool, syncope or a near syncopal episode, bowel incontinence, bladder incontinence, bowel retention, bladder retention, or any other complaints at this time. <THU Love - Last Filed: 12/08/22 16:58> Onset (ago): minute(s) <THU Love Last Filed: 12/08/22 16:58> Location: pelvis and right <THU Love Last Filed: 12/08/22 16:58> Radiation: non-radiation <THU Love Last Filed: 12/08/22 16:58> Severity: moderate <THU Love Last Filed: 12/08/22 16:58> Severity scale (1-10): 4 <THU Love - Last Filed: 12/08/22 16:58> Quality: aching <THU Love Last Filed: 12/08/22 16:58> Pain Consistency: constant <THU Love Last Filed: 12/08/22 16:58> Relieving factors: none <THU Love Last Filed: 12/08/22 16:58> Exacerbating factors: movement <THU Love Last Filed: 12/08/22 16:58> Associated symptoms: denies other symptoms <THU Love Last Filed: 12/08/22 16:58> Treatments prior to arrival: none <THU Love Last Filed: 12/08/22 16:58> Related Data Home medications: Home Medications Medication Instructions Recorded Confirmed bictegravir 50 mg-emtricitabine 1 tab PO DAILY 09/04/20 12/08/22 200 mg-tenofovir alafenam 25 mg tablet (Biktarvy) gabapentin 800 mg tablet 800 mg PO TID 09/04/20 12/08/22 inhalational spacing device #1 ea 09/04/20 09/07/22 (Aerochamber Plus Z Stat spacer) quetiapine 300 mg tablet 300 mg PO BEDTIME 09/04/20 12/08/22 buspirone 15 mg tablet 15 mg PO BID 09/07/22 12/08/22 ibuprofen 600 mg tablet 600 mg PO TID PRN Pain 09/07/22 12/08/22 methadone 10 mg/mL oral concentrate 69 mg PO DAILY 09/07/22 12/08/22 omeprazole 40 mg capsule,delayed 1 cap PO DAILY@0630 09/07/22 12/08/22 release bupropion HCl 300 mg 24 hr tablet, 1 tab PO DAILY 12/08/22 12/08/22 extended release buspirone 10 mg tablet 10 mg PO BID 12/08/22 12/08/22 clonidine HCl 0.1 mg tablet 1 tab PO BID PRN Anxiety 12/08/22 12/08/22 fluticasone furoate 100 1 puff inhalation DAILY 12/08/22 12/08/22 mcg-vilanterol 25 mcg/dose inhalation powder (Breo Ellipta) <THU Love Last Filed: 12/08/22 16:58> Allergies/adverse reactions: Allergies Allergy/AdvReac Type Severity Reaction Status Date / Time ketorolac [From Toradol] AdvReac Itching Verified 12/08/22 08:53 <THU Love - Last Filed: 12/08/22 16:58> Review of Systems Constitutional: Constitutional: Reports no additional constitutional complaints, Denies chills, Denies fever(s) and Denies night sweats <THU Love - Last Filed: 12/08/22 16:58> Eyes: Eyes: Reports no additional eye complaints, Denies blurry vision, Denies change in vision, Denies diplopia, Denies eye discharge, Denies loss of vision and Denies eye pain <THU Love - Last Filed: 12/08/22 16:58> ENT: Denies dizziness <THU Love - Last Filed: 12/08/22 16:58> Cardiovascular: Cardiovascular: Reports no additional cardiovascular complaints, Denies chest pain, Denies lightheadedness, Denies Loss of Consciousness and Denies dyspnea <THU Love - Last Filed: 12/08/22 16:58> Respiratory: Respiratory: Reports no additional respiratory complaints and Denies dyspnea <THU Love Last Filed: 12/08/22 16:58> Gastrointestinal: Gastrointestinal: Reports no additional gastrointestinal complaints, Denies abdominal pain, Denies melena, Denies hematochezia, Denies change in bowel habits and Denies change in stool character <THU Love - Last Filed: 12/08/22 16:58> Genitourinary: Genitourinary: Reports no additional male genitourinary complaints, Denies hematuria, Denies oliguria, Denies difficulty urinating, Denies dysuria, Denies urinary frequency, Denies urinary hesitancy, Denies urinary incontinence and Denies urinary urgency <THU Love Last Filed: 12/08/22 16:58> Musculoskeletal: Musculoskeletal: Reports no additional musculoskeletal complaints, Denies numbness and Denies tingling <THU Love Last Filed: 12/08/22 16:58> Comments: right hip pain <THU Love - Last Filed: 12/08/22 16:58> Neurologic: Denies dizziness, Denies loss of vision, Denies numbness and Denies tingling <THU Love - Last Filed: 12/08/22 16:58> Psychiatric: Psychiatric: Reports no additional psychiatric complaints <THU Love - Last Filed: 12/08/22 16:58> Endocrine: Endocrine: Reports no additional endocrine complaints <THU Love - Last Filed: 12/08/22 16:58> Hematologic/Lymphatic: Hematologic/Lymphatic: Reports no additional hematologic/lymphatic complaints <THU Love - Last Filed: 12/08/22 16:58> Allergic/Immunologic: Allergic/Immunologic: Reports no additional allergic/immunologic complaints <THU Love - Last Filed: 12/08/22 16:58> PMFSH Past Medical History Attestation statement: The following information was validated with the patient. <THU Love - Last Filed: 12/08/22 16:58> Source: old records reviewed and nursing notes reviewed <THU Love - Last Filed: 12/08/22 16:58> Medical History: Medical History Colitis COPD (chronic obstructive pulmonary disease) Hepatitis C HIV infection Hypertension IBS (irritable bowel syndrome) Opioid dependence Osteoarthritis of both hips Prediabetes PTSD (post-traumatic stress disorder) <THU Love - Last Filed: 12/08/22 16:58> Surgical History: Surgical History History of right hip replacement Status post right shoulder hemiarthroplasty <THU Love - Last Filed: 12/08/22 16:58> Family History Family History: Family History Other No family history of coronary artery disease <THU Love - Last Filed: 12/08/22 16:58> Social History Social History: Social History Alcohol intake: never Patient Tobacco Use Status: Current everyday Tobacco user Cigarette Packs Per Day: 1 Smoked in Last 30 Days: No Use of substances other than those prescribed or required for medical reasons: No Advance Directives: Yes Advance Directives on File: Yes Advance Directives Date on File: 09/07/22 service: No Current occupational status: disabled <THU Love - Last Filed: 12/08/22 16:58> Physical Exam ED Vital Signs: Vital Signs - 24 hr 12/08/22 11:21 12/08/22 14:16 12/08/22 23:25 Temperature 97.9 F 98.1 F Pulse Rate 62 63 68 Respiratory Rate 14 16 Blood Pressure 131/75 136/83 130/76 Pulse Oximetry 99 93 95 Oxygen Delivery Method Room Air Room Air 12/09/22 08:34 Temperature 98.0 F Pulse Rate 67 Respiratory Rate 16 Blood Pressure 135/78 Pulse Oximetry 94 Oxygen Delivery Method Room Air BMI result Body Mass Index 27.8 <THU Love Last Filed: 12/08/22 16:58> Vital Signs - 24 hr 12/08/22 11:21 12/08/22 14:16 12/08/22 23:25 Temperature 97.9 F 98.1 F Pulse Rate 62 63 68 Respiratory Rate 14 16 Blood Pressure 131/75 136/83 130/76 Pulse Oximetry 99 93 95 Oxygen Delivery Method Room Air Room Air 12/09/22 08:34 Temperature 98.0 F Pulse Rate 67 Respiratory Rate 16 Blood Pressure 135/78 Pulse Oximetry 94 Oxygen Delivery Method Room Air BMI result Body Mass Index 27.8 <THU Sung - Last Filed: 12/09/22 10:39> Const General: cooperative, no acute distress, alert and awake <THU Love - Last Filed: 12/08/22 16:58> Nutritional Appearance: well nourished <THU Love Last Filed: 12/08/22 16:58> Orientation/consciousness: patient oriented x3 <THU Love Last Filed: 12/08/22 16:58> Limitations: no limitations <THU Love Last Filed: 12/08/22 16:58> HENMT Head: Yes normal to inspection and Yes atraumatic <THU Love Last Filed: 12/08/22 16:58> Ears: hearing grossly normal bilaterally and external ears normal <THU Love - Last Filed: 12/08/22 16:58> General nose exam: Normal external nose present, no nasal discharge noted and no epistaxis <THU Love - Last Filed: 12/08/22 16:58> Face and sinus: Yes normal facial exam, No abrasion and No laceration <Elle Mack [place] - Last Filed: 12/08/22 16:58> Mouth: Normal oral and palatal mucosa present, no drooling and no muffled voice <Elle Mack [place] - Last Filed: 12/08/22 16:58> Eyes General: appearance normal, both eyes and all related structures <Elle Mack [place] - Last Filed: 12/08/22 16:58> Periorbital: periorbital findings normal <THU Love - Last Filed: 12/08/22 16:58> Eyelids: Yes eyelids normal <Elle Mack [place] - Last Filed: 12/08/22 16:58> Conjunctivae: conjunctivae normal <Elle Mack [place] - Last Filed: 12/08/22 16:58> Pupils: Equal, round and reactive pupils present <THU Love - Last Filed: 12/08/22 16:58> EOM: EOMs intact bilaterally <Elle Mack [place] - Last Filed: 12/08/22 16:58> Neck Neck: Yes normal visual inspection, Yes full ROM and Yes no lymphadenopathy <THU Love - Last Filed: 12/08/22 16:58> Chest Chest palpation & inspection: normal inspection of the chest <Elle Mack [place] - Last Filed: 12/08/22 16:58> Resp Effort & Inspection: normal respiratory effort and able to speak in complete sentences <THU Love - Last Filed: 12/08/22 16:58> Auscultation: clear to auscultation bilaterally <THU Love - Last Filed: 12/08/22 16:58> Cardio Rate: regular rate <THU Love - Last Filed: 12/08/22 16:58> Rhythm: regular rhythm <THU Love - Last Filed: 12/08/22 16:58> GI Inspection: Yes normal to inspection <Elle Mack PA - Last Filed: 12/08/22 16:58> Palpation (GI): Soft to palpation, not firm, nontender, no guarding and not rigid <Elle Mack PA - Last Filed: 12/08/22 16:58> Back/Spine/Pelvis Cervical Spine: cervical ROM normal <Elle Lozanotatiana PA - Last Filed: 12/08/22 16:58> Thoracic/Lumbar Spine: thoraco-lumbar ROM normal <Elle Mack PA - Last Filed: 12/08/22 16:58> Pelvis: Other pelvic findings (right sided hip pain with palpation) <Elle Lozanotatiana PA - Last Filed: 12/08/22 16:58> Coccyx: Other pelvic findings (right sided hip pain with palpation) <Elle Lozanotatiana PA - Last Filed: 12/08/22 16:58> Neuro General: patient oriented x3 and moves all extremities <Elle Lozanotatiana PA - Last Filed: 12/08/22 16:58> Cranial nerves: Yes Equal, round and reactive pupils present <Elle Lozanotatiana PA - Last Filed: 12/08/22 16:58> Cognition (Neuro): normal cognition <Elle Lozanotatiana PA - Last Filed: 12/08/22 16:58> Motor exam (neuro): 5/5 motor strength present throughout <Elle Lozanotatiana PA - Last Filed: 12/08/22 16:58> Sensory Exam: Normal double simultaneous stimulation for sensation <Elle Lozanotatiana PA - Last Filed: 12/08/22 16:58> Coordination: [id number] test normal <Elle Lozanotatiana PA - Last Filed: 12/08/22 16:58> Extrem General: Yes normal to inspection, Yes full ROM and Yes capillary refill normal <Elle Lozanotatiana PA - Last Filed: 12/08/22 16:58> Psych Appearance: grossly normal <Elle Lozanotatiana PA - Last Filed: 12/08/22 16:58> Mental Status: mental status grossly normal <Elle Martina PA - Last Filed: 12/08/22 16:58> Affect: normal affect <THU Love - Last Filed: 12/08/22 16:58> Attitude: cooperative <THU Love Last Filed: 12/08/22 16:58> Thought process: Normal thought process present <THU Love Last Filed: 12/08/22 16:58> Thought content: Normal thought content present <THU Love Last Filed: 12/08/22 16:58> Insight: Good insight present (Psych) <THU Love Last Filed: 12/08/22 16:58> Course Course Course Narrative: Physician observation continued. Patient's has a fracture around his right hip prosthesis. Ortho was contacted, he is nonweightbearing and follow up as an outpatient. Physical therapy evaluated yesterday morning and is recommending short-term rehab. His pain is adequately controlled with oxycodone 10 mg Q 6 p.r.n.. Will add around the clock acetaminophen and a bowel regimen. All other home meds have been restarted. Nicotine patch added per request. Vital signs remained stable. Potassium was 5.7 yesterday. He was given dose of Kayexalate. Will follow-up BMP today to ensure improvement. Will continue to monitor. <THU Sung - Last Filed: 12/09/22 10:39> Medications Administered Generic Name Dose Route Start Last Admin Trade Name Beryl PRN Reason Stop Dose Admin Buspirone HCl 10 mg 12/08/22 21:00 12/08/22 20:58 Buspirone Hcl 10 Mg Tablet PO 10 mg BID CRISTY Administration Buspirone HCl 15 mg 12/08/22 21:00 12/08/22 20:58 Buspirone Hcl 5 Mg Tablet PO 15 mg BID CRISTY Administration Gabapentin 800 mg 12/08/22 15:00 12/09/22 07:56 Gabapentin 400 Mg Capsule PO 800 mg TID CRISTY Administration Methadone HCl 70 mg 12/08/22 12:00 12/09/22 07:56 Methadone Hcl 20 Mg/2 Ml Oral.Conc PO 70 mg DAILY CRISTY Administration Omeprazole 40 mg 12/09/22 06:30 12/09/22 06:44 Omeprazole 40 Mg Capsule.Dr PO 40 mg DAILY@0630 CRISTY Administration Oxycodone HCl 10 mg 12/08/22 15:37 12/09/22 06:44 Oxycodone Hcl Immed Release 5 Mg Tablet PO 10 mg Q6H PRN Administration Pain, Moderate (Pain Scale 4-6 Quetiapine Fumarate 300 mg 12/08/22 21:00 12/08/22 20:59 Quetiapine Fumarate 300 Mg Tablet PO 300 mg BEDTIME CRISTY Administration Discontinued Medications Generic Name Dose Route Start Last Admin Trade Name Freq PRN Reason Stop Dose Admin Morphine Sulfate 4 mg 12/08/22 10:14 12/08/22 10:57 Morphine Sulfate 4 Mg/Ml Cartridge IVPUSH 12/08/22 10:15 4 mg ONCE ONE Administration Protocol Nicotine 21 mg 12/08/22 13:09 12/08/22 13:23 Nicotine 21 Mg Patch.Td24 TRANSDERMA 12/08/22 13:10 21 mg ONCE ONE Administration Sodium Polystyrene Sulfonate 45 gm 12/08/22 11:51 12/08/22 12:56 Sodium Polystyrene Sulfon/Sorb 15 Gm/60 Ml Oral.Susp PO 12/08/22 11:52 45 gm ONCE ONE Administration <THU Love - Last Filed: 12/08/22 16:58> Medications Administered Generic Name Dose Route Start Last Admin Trade Name Freq PRN Reason Stop Dose Admin Buspirone HCl 10 mg 12/08/22 21:00 12/08/22 20:58 Buspirone Hcl 10 Mg Tablet PO 10 mg BID CRISTY Administration Buspirone HCl 15 mg 12/08/22 21:00 12/08/22 20:58 Buspirone Hcl 5 Mg Tablet PO 15 mg BID CRISTY Administration Gabapentin 800 mg 12/08/22 15:00 12/09/22 07:56 Gabapentin 400 Mg Capsule PO 800 mg TID CRISTY Administration Methadone HCl 70 mg 12/08/22 12:00 12/09/22 07:56 Methadone Hcl 20 Mg/2 Ml Oral.Conc PO 70 mg DAILY CRISTY Administration Omeprazole 40 mg 12/09/22 06:30 12/09/22 06:44 Omeprazole 40 Mg Capsule.Dr PO 40 mg DAILY@0630 CRISTY Administration Oxycodone HCl 10 mg 12/08/22 15:37 12/09/22 06:44 Oxycodone Hcl Immed Release 5 Mg Tablet PO 10 mg Q6H PRN Administration Pain, Moderate (Pain Scale 4-6 Quetiapine Fumarate 300 mg 12/08/22 21:00 12/08/22 20:59 Quetiapine Fumarate 300 Mg Tablet PO 300 mg BEDTIME CRISTY Administration Discontinued Medications Generic Name Dose Route Start Last Admin Trade Name Beryl PRN Reason Stop Dose Admin Morphine Sulfate 4 mg 12/08/22 10:14 12/08/22 10:57 Morphine Sulfate 4 Mg/Ml Cartridge IVPUSH 12/08/22 10:15 4 mg ONCE ONE Administration Protocol Nicotine 21 mg 12/08/22 13:09 12/08/22 13:23 Nicotine 21 Mg Patch.Td24 TRANSDERMA 12/08/22 13:10 21 mg ONCE ONE Administration Sodium Polystyrene Sulfonate 45 gm 12/08/22 11:51 12/08/22 12:56 Sodium Polystyrene Sulfon/Sorb 15 Gm/60 Ml Oral.Susp PO 12/08/22 11:52 45 gm ONCE ONE Administration <THU Sung - Last Filed: 12/09/22 10:39> Medical Decision Making Medical Decision Making MDM Narrative: Patient is a 57 year old assigned male at with a history of methadone use and bilateral hip replacements presenting to the emergency department today with right hip pain after a fall. Patient's physical exam showed right hip pain with palpation and movement but was otherwise unremarkable. Patient's blood work showed hyperkalemia for which he was given kayexolate. Patient's EKG was unremarkable. Patient's right hip x-ray showed an acute right femur fracture around the prosthesis. I spoke to the orthopedic provider consulting business developer who recommended the patient be discharged home, non-weight bearing, and follow up with them outpatient. I explained my physical exam findings as well as all test results to the patient. I answered all questions asked by the patient. Patient states that he lives on the second floor and won't be able to be discharged home safely. Patient placed in physician observation pending case management placement. <THU Love - Last Filed: 12/08/22 16:58> Differential Diagnosis Differential Diagnoses: The differential diagnosis associated with the presentation includes <THU Love - Last Filed: 12/08/22 16:58> right hip fx <THU Love - Last Filed: 12/08/22 16:58> Consult Healthcare Provider Management of the patient was discussed with: Alteration Manager (orthopedics recommends non-weight bearing and follow up out patient) <THU Love - Last Filed: 12/08/22 16:58> Lab Data MDM Lab Attestation statement: I reviewed the patient's lab results. <THU Love - Last Filed: 12/08/22 16:58> Result Diagrams: 12/08/22 10:51 12/08/22 10:51 <THU Love - Last Filed: 12/08/22 16:58> Labs: Lab Results 12/08/22 12/08/22 12/08/22 Range/Units 10:21 10:51 11:24 WBC 8.9 (4.8-10.8) X10*3/uL RBC 4.47 L (4.60-5.80) X10*6/uL Hgb 14.0 (14.0-18.0) g/dl Hct 42.0 (42.0-52.0) % MCV 94.0 (80.0-98.0) fL MCH 31.3 (27.0-33.0) pg MCHC 33.3 (31.0-36.0) g/dl RDW 13.4 (11.0-16.0) % Plt Count 235 D (160-400) X10*3/uL MPV 12.3 (9.4-12.4) fL Immature Gran % (Auto) 0.9 H (0.0-0.4) % Neut % (Auto) 68.1 (45-73) % Lymph % (Auto) 20.1 (20-40) % [place] % (Auto) 8.6 (2-11) % Eos % (Auto) 1.7 (0-4) % Baso % (Auto) 0.6 (0-2) % Lymph # (Auto) 1.8 (1.2-4.9) X10*3/uL [place] # (Auto) 0.8 (0.1-1.2) X10*3/uL Eos # (Auto) 0.2 (0.0-0.4) X10*3/uL Baso # (Auto) 0.1 (0.0-0.2) X10*3/uL Abs Immat Gran (auto) 0.08 H (0.00-0.03) X10*3/uL Absolute Neuts (auto) 6.0 (2.0-8.3) x10*3/uL Absolute Nucleated RBC 0.000 (0.0-0.012) X10*3/uL Nucleated RBC % (auto) 0.0 (0.0-0.2) /100WBC Smear Tech's Comments VERIFIED Sodium 138 (135-145) mmol/L Potassium 5.7 H D (3.3-5.1) mmol/L Chloride 104 (96-108) mmol/L Carbon Dioxide 28 (22-29) mmol/L Anion Gap 12 (12-20) BUN 14 (9-16) mg/dL Creatinine 1.03 (0.5-1.4) mg/dL Estim Creat Clear Calc 92.2 Estimated GFR > 60 Random Glucose 79 (60-115) mg/dL Calcium 8.9 D (8.4-10.2) mg/dL Magnesium 2.0 (1.6-2.6) mg/dL Total Bilirubin 0.9 (0.0-1.0) mg/dL AST 58 H (5-37) U/L ALT 43 H (0-40) U/L Alkaline Phosphatase 190 H (39-117) U/L Total Protein 7.5 (6.5-8.0) g/dL Albumin 3.7 (3.5-5.0) g/dL Urine Opiates Screen (Not Detect) Urine Fentanyl Screen (Not Detect) Ur Barbiturates Screen (Not Detect) Ur Phencyclidine Scrn (Not Detect) Ur Amphetamines Screen (Not Detect) U Benzodiazepines Scrn (Not Detect) Urine Cocaine Screen (Not Detect) U Marijuana (THC) Screen (Not Detect) COVID-19 ([facility]) Negative (Negative) COVID-19 Clin Com See Note 12/08/22 Range/Units 17:07 WBC (4.8-10.8) X10*3/uL RBC (4.60-5.80) X10*6/uL Hgb (14.0-18.0) g/dl Hct (42.0-52.0) % MCV (80.0-98.0) fL MCH (27.0-33.0) pg MCHC (31.0-36.0) g/dl RDW (11.0-16.0) % Plt Count (160-400) X10*3/uL MPV (9.4-12.4) fL Immature Gran % (Auto) (0.0-0.4) % Neut % (Auto) (45-73) % Lymph % (Auto) (20-40) % [place] % (Auto) (2-11) % Eos % (Auto) (0-4) % Baso % (Auto) (0-2) % Lymph # (Auto) (1.2-4.9) X10*3/uL [place] # (Auto) (0.1-1.2) X10*3/uL Eos # (Auto) (0.0-0.4) X10*3/uL Baso # (Auto) (0.0-0.2) X10*3/uL Abs Immat Gran (auto) (0.00-0.03) X10*3/uL Absolute Neuts (auto) (2.0-8.3) x10*3/uL Absolute Nucleated RBC (0.0-0.012) X10*3/uL Nucleated RBC % (auto) (0.0-0.2) /100WBC Smear Tech's Comments Sodium (135-145) mmol/L Potassium (3.3-5.1) mmol/L Chloride (96-108) mmol/L Carbon Dioxide (22-29) mmol/L Anion Gap (12-20) BUN (9-16) mg/dL Creatinine (0.5-1.4) mg/dL Estim Creat Clear Calc Estimated GFR Random Glucose (60-115) mg/dL Calcium (8.4-10.2) mg/dL Magnesium (1.6-2.6) mg/dL Total Bilirubin (0.0-1.0) mg/dL AST (5-37) U/L ALT (0-40) U/L Alkaline Phosphatase (39-117) U/L Total Protein (6.5-8.0) g/dL Albumin (3.5-5.0) g/dL Urine Opiates Screen POSITIVE H (Not Detect) Urine Fentanyl Screen Not Detected (Not Detect) Ur Barbiturates Screen Not Detected (Not Detect) Ur Phencyclidine Scrn Not Detected (Not Detect) Ur Amphetamines Screen Not Detected (Not Detect) U Benzodiazepines Scrn Not Detected (Not Detect) Urine Cocaine Screen Not Detected (Not Detect) U Marijuana (THC) Screen Not Detected (Not Detect) COVID-19 ([facility]) (Negative) COVID-19 Clin Com <THU Love - Last Filed: 12/08/22 16:58> Lab Results 12/08/22 12/08/22 12/08/22 Range/Units 10:21 10:51 11:24 WBC 8.9 (4.8-10.8) X10*3/uL RBC 4.47 L (4.60-5.80) X10*6/uL Hgb 14.0 (14.0-18.0) g/dl Hct 42.0 (42.0-52.0) % MCV 94.0 (80.0-98.0) fL MCH 31.3 (27.0-33.0) pg MCHC 33.3 (31.0-36.0) g/dl RDW 13.4 (11.0-16.0) % Plt Count 235 D (160-400) X10*3/uL MPV 12.3 (9.4-12.4) fL Immature Gran % (Auto) 0.9 H (0.0-0.4) % Neut % (Auto) 68.1 (45-73) % Lymph % (Auto) 20.1 (20-40) % [place] % (Auto) 8.6 (2-11) % Eos % (Auto) 1.7 (0-4) % Baso % (Auto) 0.6 (0-2) % Lymph # (Auto) 1.8 (1.2-4.9) X10*3/uL [place] # (Auto) 0.8 (0.1-1.2) X10*3/uL Eos # (Auto) 0.2 (0.0-0.4) X10*3/uL Baso # (Auto) 0.1 (0.0-0.2) X10*3/uL Abs Immat Gran (auto) 0.08 H (0.00-0.03) X10*3/uL Absolute Neuts (auto) 6.0 (2.0-8.3) x10*3/uL Absolute Nucleated RBC 0.000 (0.0-0.012) X10*3/uL Nucleated RBC % (auto) 0.0 (0.0-0.2) /100WBC Smear Tech's Comments VERIFIED Sodium 138 (135-145) mmol/L Potassium 5.7 H D (3.3-5.1) mmol/L Chloride 104 (96-108) mmol/L Carbon Dioxide 28 (22-29) mmol/L Anion Gap 12 (12-20) BUN 14 (9-16) mg/dL Creatinine 1.03 (0.5-1.4) mg/dL Estim Creat Clear Calc 92.2 Estimated GFR > 60 Random Glucose 79 (60-115) mg/dL Calcium 8.9 D (8.4-10.2) mg/dL Magnesium 2.0 (1.6-2.6) mg/dL Total Bilirubin 0.9 (0.0-1.0) mg/dL AST 58 H (5-37) U/L ALT 43 H (0-40) U/L Alkaline Phosphatase 190 H (39-117) U/L Total Protein 7.5 (6.5-8.0) g/dL Albumin 3.7 (3.5-5.0) g/dL Urine Opiates Screen (Not Detect) Urine Fentanyl Screen (Not Detect) Ur Barbiturates Screen (Not Detect) Ur Phencyclidine Scrn (Not Detect) Ur Amphetamines Screen (Not Detect) U Benzodiazepines Scrn (Not Detect) Urine Cocaine Screen (Not Detect) U Marijuana (THC) Screen (Not Detect) COVID-19 ([facility]) Negative (Negative) COVID-19 Clin Com See Note 12/08/22 Range/Units 17:07 WBC (4.8-10.8) X10*3/uL RBC (4.60-5.80) X10*6/uL Hgb (14.0-18.0) g/dl Hct (42.0-52.0) % MCV (80.0-98.0) fL MCH (27.0-33.0) pg MCHC (31.0-36.0) g/dl RDW (11.0-16.0) % Plt Count (160-400) X10*3/uL MPV (9.4-12.4) fL Immature Gran % (Auto) (0.0-0.4) % Neut % (Auto) (45-73) % Lymph % (Auto) (20-40) % [place] % (Auto) (2-11) % Eos % (Auto) (0-4) % Baso % (Auto) (0-2) % Lymph # (Auto) (1.2-4.9) X10*3/uL [place] # (Auto) (0.1-1.2) X10*3/uL Eos # (Auto) (0.0-0.4) X10*3/uL Baso # (Auto) (0.0-0.2) X10*3/uL Abs Immat Gran (auto) (0.00-0.03) X10*3/uL Absolute Neuts (auto) (2.0-8.3) x10*3/uL Absolute Nucleated RBC (0.0-0.012) X10*3/uL Nucleated RBC % (auto) (0.0-0.2) /100WBC Smear Tech's Comments Sodium (135-145) mmol/L Potassium (3.3-5.1) mmol/L Chloride (96-108) mmol/L Carbon Dioxide (22-29) mmol/L Anion Gap (12-20) BUN (9-16) mg/dL Creatinine (0.5-1.4) mg/dL Estim Creat Clear Calc Estimated GFR Random Glucose (60-115) mg/dL Calcium (8.4-10.2) mg/dL Magnesium (1.6-2.6) mg/dL Total Bilirubin (0.0-1.0) mg/dL AST (5-37) U/L ALT (0-40) U/L Alkaline Phosphatase (39-117) U/L Total Protein (6.5-8.0) g/dL Albumin (3.5-5.0) g/dL Urine Opiates Screen POSITIVE H (Not Detect) Urine Fentanyl Screen Not Detected (Not Detect) Ur Barbiturates Screen Not Detected (Not Detect) Ur Phencyclidine Scrn Not Detected (Not Detect) Ur Amphetamines Screen Not Detected (Not Detect) U Benzodiazepines Scrn Not Detected (Not Detect) Urine Cocaine Screen Not Detected (Not Detect) U Marijuana (THC) Screen Not Detected (Not Detect) COVID-19 ([facility]) (Negative) COVID-19 Clin Com <THU Sung - Last Filed: 12/09/22 10:39> Independent Interpretation I performed an independent interpretation of an: EKG <THU Love - Last Filed: 12/08/22 16:58> Interpretation: Vent. Rate: 056 BPM ? ? Atrial Rate: 056 BPM P-R Int: 146 ms? QRS Dur: 072 ms QT Int: 412 ms ? ? ? P-R-T Axes: 041 059 061 degrees QTc Int: 397 ms ? Sinus bradycardia Otherwise normal ECG When compared with ECG of 06-SEP-2022 16:37, Nonspecific T wave abnormality no longer evident in Anterior leads QT has shortened DD/ 1158 <THU Love - Last Filed: 12/08/22 16:58> Radiology Impression Radiologist Impression: My interpretation is in agreement with the radiologist's impression of this imaging study. EXAMINATION: XR HIP, RIGHT CLINICAL INFORMATION: Fall with right hip pain COMPARISON: November 2019. TECHNIQUE: AP view pelvis and 2 additional views of the right hip. FINDINGS: A right hip prosthesis is in position. Fracture of the proximal right femur observed in the right intertrochanteric region. The right hip prosthesis appears intact. No distinct acetabular or pubic disruption. A left hip prosthesis is now observed, new since November 2019. XR/XR hip RT w PEL1V IMPRESSION: Fracture of the proximal right femur, adjacent to the right hip prosthesis. Dictated By: Víctor Machado Signed By: Electronically signed by Víctor?Carter 12/08/22 0957 <THU Love - Last Filed: 12/08/22 16:58> Critical Care Time Critical Care Time Critical Care Time: Yes <THU Love - Last Filed: 12/08/22 16:58> Total Critical Care Time: 30 <THU Love - Last Filed: 12/08/22 16:58> Attestation: I spent 30 minutes of Critical Care Time with this patient. This does not include time spent on separately reported billable procedures. <THU Love - Last Filed: 12/08/22 16:58> Discharge Plan Discharge Clinical Impression: Closed hip fracture <THU Love - Last Filed: 12/08/22 16:58> Patient Disposition: Still a Patient <THU Love - Last Filed: 12/08/22 16:58> Prescriptions: No Action clonidine HCl 0.1 mg tablet 1 tab PO BID PRN (Reason: Anxiety) bupropion HCl 300 mg tablet extended release 24 hr 1 tab PO DAILY fluticasone furoate-vilanterol [Breo Ellipta] 100-25 mcg/dose blister with device 1 puff inhalation DAILY buspirone 10 mg Tablet 10 mg PO BID omeprazole 40 mg capsule,delayed release(DR/EC) 1 cap PO DAILY@0630 buspirone 15 mg tablet 15 mg PO BID methadone 10 mg/mL Concentrate 69 mg PO DAILY ibuprofen 600 mg Tablet 600 mg PO TID PRN (Reason: Pain) (DME) Aerochamber Plus Z Stat Spacer See Rx Instructions .ROUTE .MEDSUPPLY Qty: 1 Rx Instructions: As directed Biktarvy 50-200-25 mg tablet 1 tab PO DAILY gabapentin 800 mg tablet 800 mg PO TID quetiapine 300 mg tablet 300 mg PO BEDTIME <THU Love - Last Filed: 12/08/22 16:58>
--- NOTE | 2022-12-08 10:44 | PHA.MEDREC ---
Pharmacy Consult ? Medication Reconciliation Pharmacy has completed the medication reconciliation. Completed med rec with conversation with patient. He's mostly aware of medications he's on and with help of claim history he was able to verify medications and doses.
--- NOTE | 2022-12-08 10:47 | MHC.CM.PN ---
PT WITH HIP FRACTURE, PER ORTHO WILL NEED TO BE NWB FOR TWO WEEKS AND THEN FOLLOW UP PT LIVES ON 2ND FLOOR AND DOES NOT HAVE ADEQUATE SUPPORT AT HOME REFERRALS MADE FOR STR, PT EVAL PENDING
--- NOTE | 2022-12-08 10:56 | MHC.EDTECH ---
Labs collected and sent
[2022-12-08] MEDS: Morphine Sulfate 4 MG/ML CARTRIDGE IVPUSH (10:57)
[2022-12-08 11:21] VITALS: BP 131/75; PULSE 62; O2SAT 99
--- NOTE | 2022-12-08 11:27 | MHC.EDTECH ---
Labs redraw collected and sent
--- NOTE | 2022-12-08 11:30 | PC.NURSE ---
METHADONE VERIFIED: LAST DOSE 69 mg, ON 12/07/22. VERIFIED BY EDDIE WILKS AT [facility]. [phone]. VERIFICATION FORM FAXED TO PHARMACY.
[2022-12-08 11:38] LABS: Basophils Absolute Auto 0.1 X10*3/uL (0.0-0.2); Basophils Percent Auto 0.6 % (0-2); Eosinophils Absolute Auto 0.2 X10*3/uL (0.0-0.4); Eosinophils Percent Auto 1.7 % (0-4); Imm Gran Abs Auto 0.08 X10*3/uL (0.00-0.03); Imm Gran Pct Auto 0.9 % (0.0-0.4); Lymphocytes Absolute Auto 1.8 X10*3/uL (1.2-4.9); Lymphocytes Percent Auto 20.1 % (20-40); MANUAL DIFF FLAG SCAN; Mean Corpuscular HGB Conc 33.3 g/dl (31.0-36.0); Mean Corpuscular Hemoglobin 31.3 pg (27.0-33.0); Mean Platelet Volume 12.3 fL (9.4-12.4); Monocytes Absolute Auto 0.8 X10*3/uL (0.1-1.2); Monocytes Percent Auto 8.6 % (2-11); Neutrophils Percent Auto 68.1 % (45-73); PLT CLUMP 1; Platelet Count 235 X10*3/uL (160-400); Red Blood Count 4.47 X10*6/uL (4.60-5.80); Red Cell Distribution Width 13.4 % (11.0-16.0); SCAN SMEAR FLAG 1; White Blood Count 8.9 X10*3/uL (4.8-10.8)
[2022-12-08 11:39] LABS: SLIDE REVIEW VERIFIED
[2022-12-08 11:47] LABS: Alanine Aminotransferase 43 U/L (0-40); Albumin Level 3.7 g/dL (3.5-5.0); Alkaline Phosphatase 190 U/L (39-117); Anion Gap 12 (12-20); Aspartate Amino Transferase 58 U/L (5-37); Bilirubin Total 0.9 mg/dL (0.0-1.0); Blood Urea Nitrogen 14 mg/dL (9-16); Calcium 8.9 mg/dL (8.4-10.2); Carbon Dioxide 28 mmol/L (22-29); Chloride 104 mmol/L (96-108); Creatinine Clr Calc Pharmacy 92.2; Estimated Glomerular Filt Rate > 60; Glucose Random 79 mg/dL (60-115); Potassium 5.7 mmol/L (3.3-5.1); Sodium 138 mmol/L (135-145); Total Protein 7.5 g/dL (6.5-8.0)
--- NOTE | 2022-12-08 11:51 | ECG_ITS ---
Test Reason : FALL Blood Pressure : / mmHG Vent. Rate : 056 BPM Atrial Rate : 056 BPM P-R Int : 146 ms QRS Dur : 072 ms QT Int : 412 ms P-R-T Axes : 041 059 061 degrees QTc Int : 397 ms Sinus bradycardia Otherwise normal ECG When compared with ECG of 06-SEP-2022 16:37, Nonspecific T wave abnormality no longer evident in Anterior leads QT has shortened Referred By: Elle Mack Electronically Signed By:Angel Stern
[2022-12-08 11:53] LABS: COVID-19 Test Negative (Negative); IDNOW Serial# 9DB6401D
--- NOTE | 2022-12-08 12:00 | HE.PHANOTE ---
RE METHADONE 69 MG, LAST DOSED BY [facility], LAST DOSE 12/07 LUCINDA
--- NOTE | 2022-12-08 12:03 | MHC.EDTECH ---
EKG completed and signed by
--- NOTE | 2022-12-08 12:14 | PC.NURSE ---
PT REPORTED THAT HE TRIPPED OVER HIS LEG AND FELL, DENIES HS/LOC. HE HAD BILAT HIP REPLACEMENT 1yr ago AND IS CONCERNED THAT HE REINJURED HIS HIPS. REPORTS 10/10 HIP PAIN, PAIN MED GIVEN DOCUMENTED. WILL CONTINUE TO OBSERVE.
[2022-12-08] MEDS: methADONE HCl 20 MG/2 ML ORAL.CONC 70 MG PO (12:55)
[2022-12-08] MEDS: Sodium Polystyrene Sulfon/Sorb 15 GM/60 ML ORAL.SUSP 45 GM PO (12:56)
[2022-12-08] MEDS: Nicotine 21 MG PATCH.TD24 TRANSDERMA (13:23)
[2022-12-08 14:16] VITALS: BP 136/83; PULSE 63; RESP 14; TEMP 36.6; O2SAT 93
--- NOTE | 2022-12-08 15:24 | MHC.CM.ED ---
Addendum entered by Bettye Payne 12/08/22 16:33: Moderna x2/booster x1. HCP on file. Pt does not have a phone. Referred out 50 miles to facilities that contract with [facility] and accept methadone. Expect patient will be difficult to place. CM to follow for discharge planning. Original Note: Pt lives at [facility]. Has been on methadone for about a year. Gets his methadone 10 mg daily from [facility] in [place]. No bed offers yet. Will refer farther out to facilities that contract with [facility]. CM will follow for discharge planning.
[2022-12-08] MEDS: Gabapentin 400 MG CAPSULE 800 MG PO ×2 (16:02→20:58)
[2022-12-08] MEDS: oxyCODONE HCl Immed Release 5 MG TABLET 10 MG PO ×2 (16:03→22:04)
[2022-12-08 17:41] LABS: Amphetamine Screen Urine Not Detected (Not Detect); Barbiturates, Urine Not Detected (Not Detect); Benzodiazepines Screen Urine Not Detected (Not Detect); Cannabinoid Screen Urine Not Detected (Not Detect); Cocaine Screen Urine Not Detected (Not Detect); Fentanyl, urine Not Detected (Not Detect); Opiate Screen Urine POSITIVE (Not Detect); Phencyclidine Screen Urine Not Detected (Not Detect)
--- NOTE | 2022-12-08 17:46 | MHC.EDTECH ---
threw out soiled commode bag and put a new commode bag for future use.
--- NOTE | 2022-12-08 17:53 | MHC.EDTECH ---
Brought patient a renettae.
--- NOTE | 2022-12-08 19:49 | PC.NURSE ---
Pt was transferred from main ED. Pt is A&Ox 4 complaining solely of R hip pain r/t fall. Pt is otherwise stable. Request made for pain management medications made and granted by provider. Will continue to monitor
[2022-12-08] MEDS: busPIRone HCl 5 MG TABLET 15 MG PO (20:58)
[2022-12-08] MEDS: busPIRone HCl 10 MG TABLET PO (20:58)
[2022-12-08] MEDS: QUEtiapine Fumarate 300 MG TABLET PO (20:59)
[2022-12-08 23:25] VITALS: BP 130/76; PULSE 68; RESP 16; TEMP 36.7; O2SAT 95
--- NOTE | 2022-12-09 01:29 | PC.NURSE ---
Assumed care of pt. at 2300. Pt. asleep in bed at that time. Pt. remains asleep in bed, respirations even and unlabored, no distress noted. Will continue to monitor.
[2022-12-09] MEDS: Omeprazole 40 MG CAPSULE.DR PO (06:44)
[2022-12-09] MEDS: oxyCODONE HCl Immed Release 5 MG TABLET 10 MG PO ×3 (06:44→20:02)
[2022-12-09] MEDS: methADONE HCl 20 MG/2 ML ORAL.CONC 70 MG PO (07:56)
[2022-12-09] MEDS: Gabapentin 400 MG CAPSULE 800 MG PO ×3 (07:56→20:00)
[2022-12-09 08:34] VITALS: BP 135/78; PULSE 67; RESP 16; TEMP 36.7; O2SAT 94
--- NOTE | 2022-12-09 08:43 | PC.NURSE ---
Assumed care at 0645. Patient A+0 x4. Resting comfortably in bed. Non labored breathing, no distress noted. VSS. Pain medication given for right hip fracture with good effect. Patient resting comfortably in bed at this time.
[2022-12-09] MEDS: Docusate Sodium 100 MG CAPSULE PO (10:45)
[2022-12-09] MEDS: Acetaminophen 325 MG TABLET 975 MG PO ×2 (10:45→20:01)
[2022-12-09] MEDS: Nicotine 21 MG PATCH.TD24 TRANSDERMA (10:46)
--- NOTE | 2022-12-09 11:11 | MHC.CM.ED ---
Addendum entered by Shantel Longo 12/09/22 14:44: [facility] operating systems programmer: Jill [phone]: She states pt will be a bed hold while in STR and when he is able to safely return to the program house, his room will be moved to the 1st floor. Pt updated on above. Addendum entered by Shantel Longo 12/09/22 13:52: CORRECTION: NOT [facility] [place] Addendum entered by Shantel Longo 12/09/22 13:48: Call placed to Adeola at [facility] for possible out of network contract as pt is very difficult to place. Adeola will speak with her cook room supervisor and call ED CM back w/answer. out of >60 referrals, only one center, [facility] in [facility] to check back on Monday for an open bed. Original Note: Pt continues boarding for STR placement: Referral expanded to 50 miles to facilities that are both contracted and non contracted w/[facility]. Because pt will be difficult to place d/t Methadone dosing, it is likely [facility] will do an out of network contract to place pt. Call to [facility] to inquire on this option: will await call back. ED CM to follow expanded STR search for any accepting offers.
[2022-12-09 11:41] LABS: Anion Gap 14 (12-20); Blood Urea Nitrogen 9 mg/dL (9-16); Calcium 8.9 mg/dL (8.4-10.2); Carbon Dioxide 30 mmol/L (22-29); Chloride 100 mmol/L (96-108); Creatinine Clr Calc Pharmacy 105.6; Estimated Glomerular Filt Rate > 60; Glucose Random 99 mg/dL (60-115); Potassium 5.1 mmol/L (3.3-5.1); Sodium 139 mmol/L (135-145)
[2022-12-09] MEDS: buPROPion HCl XL 300 MG TAB.ER.24H PO (13:36)
[2022-12-09] MEDS: Bictegrav/Emtricit/Tenofov Ala TABLET 1 TAB PO (13:37)
[2022-12-09] MEDS: busPIRone HCl 5 MG TABLET 15 MG PO ×2 (13:37→20:00)
[2022-12-09] MEDS: busPIRone HCl 10 MG TABLET PO ×2 (13:37→20:01)
[2022-12-09 16:16] VITALS: BP 141/74; PULSE 64; RESP 18; TEMP 36.9; O2SAT 93
--- NOTE | 2022-12-09 17:03 | PC.NURSE ---
Patient A&O x4, no c/o pain at this time. Resting , using urinal as needed. No distress noted.
[2022-12-09] MEDS: QUEtiapine Fumarate 300 MG TABLET PO (20:01)
--- NOTE | 2022-12-10 02:39 | PC.NURSE ---
Addendum entered by Shila Adams RN 12/10/22 05:45: pt voiding in [facility]. Original Note: Pt A&OX4, on ra, He had c/o R-hip pain earlier in the shift and received his PRN oxycodone with good effect. Pt is currently sleeping.
[2022-12-10] MEDS: oxyCODONE HCl Immed Release 5 MG TABLET 10 MG PO ×3 (05:42→20:06)
[2022-12-10] MEDS: Omeprazole 40 MG CAPSULE.DR PO (05:42)
[2022-12-10 05:59] VITALS: BP 96/65; PULSE 79; RESP 16; TEMP 36.9; O2SAT 98
--- NOTE | 2022-12-10 06:01 | MHC.EDTECH ---
0600 rounding done ,vitals sign taken ,frtesh water given ,pt void x 2 .
[2022-12-10] MEDS: Docusate Sodium 100 MG CAPSULE PO ×2 (08:46→20:06)
[2022-12-10] MEDS: busPIRone HCl 10 MG TABLET PO ×2 (08:46→20:06)
[2022-12-10] MEDS: Bictegrav/Emtricit/Tenofov Ala TABLET 1 TAB PO (08:46)
[2022-12-10] MEDS: busPIRone HCl 5 MG TABLET 15 MG PO ×2 (08:46→20:06)
[2022-12-10] MEDS: buPROPion HCl XL 300 MG TAB.ER.24H PO (08:46)
[2022-12-10] MEDS: Gabapentin 400 MG CAPSULE 800 MG PO ×3 (08:46→20:05)
[2022-12-10] MEDS: methADONE HCl 20 MG/2 ML ORAL.CONC 70 MG PO (08:47)
[2022-12-10] MEDS: Acetaminophen 325 MG TABLET 975 MG PO ×2 (11:25→18:31)
--- NOTE | 2022-12-10 12:07 | PC.NURSE ---
patient resting in bed. given prn pain medication for 8/10 hip pain. able to make needs known, call schilling within reach
[2022-12-10 15:00] VITALS: BP 150/72; PULSE 69; RESP 18; TEMP 36.7; O2SAT 94
--- NOTE | 2022-12-10 16:14 | MHC.EDTECH ---
this pct assumed care of pt at 1500 ,pt rang for a urinal ,pt watching television .
--- NOTE | 2022-12-10 19:16 | MHC.EDTECH ---
pt ate 100 % of meal ,drank 600 ml fluids ,400 ml out put empty .
--- NOTE | 2022-12-10 20:08 | PC.NURSE ---
Pt resting in bed at this time. Complaining of 8/10 pain in his hip. PRN Oxycodone was given. Pt also requesting a nicotine patch.
[2022-12-10 20:23] VITALS: BP 160/64; PULSE 82; RESP 18; TEMP 36.8; O2SAT 97
[2022-12-10] MEDS: QUEtiapine Fumarate 300 MG TABLET PO (20:55)
[2022-12-10] MEDS: Nicotine 21 MG PATCH.TD24 TRANSDERMA (20:55)
--- NOTE | 2022-12-11 04:29 | PC.NURSE ---
ASSUMED CARE OF PT AT 2300. PT HAS BEEN RESTING IN BED AND ASLEEP THIS SHIFT. NO ACUTE RESPIRATORY DISTRESS. RESPIRATIONS EASY AND REGULAR.
[2022-12-11 05:46] VITALS: BP 147/79; PULSE 61; RESP 12; TEMP 36.2; O2SAT 95
[2022-12-11] MEDS: Omeprazole 40 MG CAPSULE.DR PO (05:46)
[2022-12-11] MEDS: buPROPion HCl XL 300 MG TAB.ER.24H PO (09:01)
[2022-12-11] MEDS: busPIRone HCl 5 MG TABLET 15 MG PO ×2 (09:01→19:49)
[2022-12-11] MEDS: busPIRone HCl 10 MG TABLET PO ×2 (09:01→19:49)
[2022-12-11] MEDS: Bictegrav/Emtricit/Tenofov Ala TABLET 1 TAB PO (09:01)
[2022-12-11] MEDS: Docusate Sodium 100 MG CAPSULE PO ×2 (09:01→19:49)
[2022-12-11] MEDS: methADONE HCl 20 MG/2 ML ORAL.CONC 70 MG PO (09:01)
[2022-12-11] MEDS: Gabapentin 400 MG CAPSULE 800 MG PO ×3 (09:01→19:50)
[2022-12-11] MEDS: Fluticasone/Vilanterol 100/25 BLST.W.DEV 1 PUFF INHALE (09:04)
[2022-12-11] MEDS: Acetaminophen 325 MG TABLET 975 MG PO ×2 (11:00→19:49)
[2022-12-11] MEDS: Nicotine 21 MG PATCH.TD24 TRANSDERMA (11:00)
[2022-12-11] MEDS: oxyCODONE HCl Immed Release 5 MG TABLET 10 MG PO ×2 (11:02→17:41)
[2022-12-11 14:31] VITALS: BP 125/76; PULSE 76; RESP 18; O2SAT 95
[2022-12-11] MEDS: QUEtiapine Fumarate 300 MG TABLET PO (19:57)
[2022-12-12 05:36] VITALS: BP 133/67; PULSE 65; RESP 17; TEMP 36.5; O2SAT 95
[2022-12-12] MEDS: Omeprazole 40 MG CAPSULE.DR PO (05:44)
[2022-12-12] MEDS: Acetaminophen 325 MG TABLET 975 MG PO ×2 (05:44→14:11)
[2022-12-12] MEDS: oxyCODONE HCl Immed Release 5 MG TABLET 10 MG PO ×3 (05:45→17:47)
--- NOTE | 2022-12-12 06:47 | PC.NURSE ---
Assumed care at 23:00. Patient without any complaints most of night, denied pain. Patient with acute right intertrochanteric fx, note says plan includes non-weightbearing status. Aide says patient had been out of bed today to commode. Discussed with PA, and new order for nonweightbearing for safety/clarification? Per PA no need for to repeat a hip xray in morning unless increased pain.
[2022-12-12 08:20] VITALS: BP 126/88; PULSE 71; RESP 16; TEMP 36.6; O2SAT 94
[2022-12-12] MEDS: Gabapentin 400 MG CAPSULE 800 MG PO ×3 (08:31→20:04)
[2022-12-12] MEDS: Docusate Sodium 100 MG CAPSULE PO ×2 (08:32→20:04)
[2022-12-12] MEDS: Bictegrav/Emtricit/Tenofov Ala TABLET 1 TAB PO (08:32)
[2022-12-12] MEDS: busPIRone HCl 5 MG TABLET 15 MG PO ×2 (08:33→20:04)
[2022-12-12] MEDS: busPIRone HCl 10 MG TABLET PO ×2 (08:33→20:04)
[2022-12-12] MEDS: buPROPion HCl XL 300 MG TAB.ER.24H PO (08:34)
[2022-12-12] MEDS: methADONE HCl 20 MG/2 ML ORAL.CONC 70 MG PO (08:36)
[2022-12-12] MEDS: Nicotine 21 MG PATCH.TD24 TRANSDERMA (08:39)
--- NOTE | 2022-12-12 09:40 | PC.NURSE ---
Patient alert and oriented. Vitals stable. All medications taken without problem. Patient with c/o pain in right hip, with order for oxycodone every six hours as needed. Will give prn pain medication when due, and reassess.
--- NOTE | 2022-12-12 11:10 | MHC.EDTECH ---
pt used commode. commode was changed and pt was given the phone and number for the [facility] per request of the pt.
[2022-12-12] MEDS: Ibuprofen 600 MG TABLET PO ×2 (15:06→20:04)
[2022-12-12 16:32] VITALS: BP 165/103; PULSE 65; RESP 14; TEMP 36.7; O2SAT 95
--- NOTE | 2022-12-12 18:21 | PC.NURSE ---
Discontinued #22 peripheral IV in left forearm. Patient tolerated procedure well.
[2022-12-12] MEDS: QUEtiapine Fumarate 300 MG TABLET PO (20:04)
--- NOTE | 2022-12-12 21:33 | MHC.CM.ED ---
Addendum entered by Bettye Payne 12/12/22 22:11: Pt will be NWB until 12/22, not 11/24. Original Note: Clinical updates resent. [facility] and [facility]. Pt remains difficult to place secondary to methadone. Pt will be non-weight bearing until 11/24. Will need to F/U with ortho at that time. TSS will move patient to first floor for safety at discharge.
[2022-12-13 03:14] VITALS: BP 128/70; PULSE 62; RESP 16; TEMP 36.8; O2SAT 96
[2022-12-13] MEDS: Acetaminophen 325 MG TABLET 975 MG PO ×3 (05:02→21:00)
[2022-12-13] MEDS: oxyCODONE HCl Immed Release 5 MG TABLET 10 MG PO ×3 (05:03→19:53)
[2022-12-13] MEDS: Omeprazole 40 MG CAPSULE.DR PO (05:03)
[2022-12-13] MEDS: Fluticasone/Vilanterol 100/25 BLST.W.DEV 1 PUFF INHALE (08:30)
[2022-12-13 08:32] VITALS: PULSE 104; RESP 18; O2SAT 97
[2022-12-13] MEDS: methADONE HCl 20 MG/2 ML ORAL.CONC 70 MG PO (08:48)
[2022-12-13] MEDS: Docusate Sodium 100 MG CAPSULE PO ×2 (08:49→20:58)
[2022-12-13] MEDS: buPROPion HCl XL 300 MG TAB.ER.24H PO (08:49)
[2022-12-13] MEDS: busPIRone HCl 10 MG TABLET PO ×2 (08:49→21:02)
[2022-12-13] MEDS: Bictegrav/Emtricit/Tenofov Ala TABLET 1 TAB PO (08:49)
[2022-12-13] MEDS: Gabapentin 400 MG CAPSULE 800 MG PO ×3 (08:49→20:58)
[2022-12-13] MEDS: busPIRone HCl 5 MG TABLET 15 MG PO ×2 (08:49→21:01)
[2022-12-13] MEDS: Ibuprofen 600 MG TABLET PO ×3 (08:50→20:59)
[2022-12-13] MEDS: Nicotine 21 MG PATCH.TD24 TRANSDERMA (08:50)
--- NOTE | 2022-12-13 08:52 | MHC.EDTECH ---
Pt ate breakfast, urinal emptied, and given supplies to get himself cleaned up. Advised Pt to ring the call schilling if/when he needed help and he agreed to. Resting quietly, watching TV.
[2022-12-13 08:54] VITALS: BP 123/78; PULSE 62; RESP 18; O2SAT 95
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
--- NOTE | 2022-12-13 10:27 | MHC.CM.ED ---
Addendum entered by Frances Gamboa 12/13/22 15:34: Jimmie Perdomo inquiring if patient can return to [facility] with PRN narcotics. T/W spoke with Milagrso at [facility]. Milagros verified patient would be able to return to their facility with pain meds as long as it is an active prescription from a provider. [facility] made aware. Addendum entered by Frances Gamboa 12/13/22 14:52: [facility] PASRR Level 2 obtained. Original Note: Patient remains in ER overflow. Physical therapy recommending STR. Patient will be difficult to place due to being on Methadone. Clinical updates sent to all facilities still following patient. Patient will need a [facility] PASRR Level 2. T/W already submitted Level 1. Continue to monitor for d/c needs.
--- NOTE | 2022-12-13 14:26 | PC.NURSE ---
PT SEEN BY MANDREL PULLER THIS MORNING. [facility] CONTINUES TO SEEK PLACEMENT. PT AWARE OF PLAN.
[2022-12-13] MEDS: QUEtiapine Fumarate 300 MG TABLET PO (21:02)
--- NOTE | 2022-12-13 21:49 | PC.NURSE ---
Patient is AOx4, no respiratory distress on shift. Medicated x1 with PRN oxycodone with effectiveness for right hip pain 05/04 described as throbbing . No other complain or concerns voiced at this time. Patient educated on weight bearing status and he stated I know, I just can't believe I fell like that . Fall precautions in place, care ongoing.
[2022-12-14] MEDS: Omeprazole 40 MG CAPSULE.DR PO (05:38)
[2022-12-14] MEDS: Acetaminophen 325 MG TABLET 975 MG PO ×2 (05:38→15:15)
[2022-12-14 06:18] VITALS: BP 129/85; PULSE 60; RESP 15; TEMP 36.2; O2SAT 92
--- NOTE | 2022-12-14 06:41 | MHC.EDTECH ---
Pt was never changed over and was still in outside clothing. Pt given hospital pants and gown and changed over. Pt given personal belongings bag for belongings placed bedside.
[2022-12-14 08:28] VITALS: BP 114/77; PULSE 65; RESP 20; TEMP 36.9; O2SAT 95
[2022-12-14] MEDS: methADONE HCl 20 MG/2 ML ORAL.CONC 70 MG PO (08:34)
[2022-12-14] MEDS: busPIRone HCl 5 MG TABLET 15 MG PO ×2 (08:34→20:12)
[2022-12-14] MEDS: Gabapentin 400 MG CAPSULE 800 MG PO ×3 (08:38→20:11)
[2022-12-14] MEDS: Docusate Sodium 100 MG CAPSULE PO ×2 (08:39→20:12)
[2022-12-14] MEDS: Ibuprofen 600 MG TABLET PO ×3 (08:39→20:10)
[2022-12-14] MEDS: Bictegrav/Emtricit/Tenofov Ala TABLET 1 TAB PO (08:39)
[2022-12-14] MEDS: oxyCODONE HCl Immed Release 5 MG TABLET 10 MG PO ×3 (08:39→20:11)
[2022-12-14] MEDS: buPROPion HCl XL 300 MG TAB.ER.24H PO (08:40)
[2022-12-14] MEDS: Nicotine 21 MG PATCH.TD24 TRANSDERMA (08:40)
[2022-12-14] MEDS: busPIRone HCl 10 MG TABLET PO ×2 (09:07→20:12)
--- NOTE | 2022-12-14 10:48 | MHC.EDTECH ---
Emptied patients commode and replaced liner. Jenny Barry
--- NOTE | 2022-12-14 11:27 | PC.NURSE ---
Pt remains in ED overflow awaiting placement/disposition. Pt is A&O x4 complaining of R hip pain r/t fall. Pain is temporarily relieved with PRN oxycodone. Will continue to monitor
--- NOTE | 2022-12-14 12:20 | MHC.CM.ED ---
Addendum entered by Frances Gamboa 12/14/22 13:14: Patient will d/c to [facility] tomorrow 12/15, once insurance auth has been obtained and guest dosing is arranged with [facility]. Original Note: Patient remains in ER overflow. [facility] and [facility] are able to offer a bed. Patient will need to have guest dosing for Methadone at [facility]. Alexei Clark RN is helping establish this. T/W met with patient. Patient agreeable to either facility. [facility] and [facility] made aware. Continue to monitor for d/c needs.
--- NOTE | 2022-12-14 14:09 | MHC.EDTECH ---
Emptied patients commode / replaced liner. Jenny Barry
[2022-12-14 15:54] LABS: COVID-19 Test Negative (Negative); IDNOW Serial# 08D9AD1C
[2022-12-14 17:15] VITALS: BP 151/88; PULSE 67; RESP 16; TEMP 36.5; O2SAT 97
--- NOTE | 2022-12-14 18:29 | PC.NURSE ---
Pt had a fairly good day. Pt continues to have pain in the R hip. PRN medication given as ordered, but pt continues to have pain between dosages. Otherwise no new complaints voiced or noted
[2022-12-14] MEDS: QUEtiapine Fumarate 300 MG TABLET PO (20:11)
[2022-12-15] MEDS: oxyCODONE HCl Immed Release 5 MG TABLET 10 MG PO ×3 (06:50→20:19)
[2022-12-15] MEDS: Acetaminophen 325 MG TABLET 975 MG PO ×2 (06:51→13:28)
[2022-12-15] MEDS: Omeprazole 40 MG CAPSULE.DR PO (06:53)
[2022-12-15 06:55] VITALS: BP 128/72; PULSE 65; RESP 15; TEMP 36.4; O2SAT 93
[2022-12-15] MEDS: Nicotine 21 MG PATCH.TD24 TRANSDERMA (08:19)
[2022-12-15] MEDS: busPIRone HCl 10 MG TABLET PO ×2 (08:20→20:19)
[2022-12-15] MEDS: Bictegrav/Emtricit/Tenofov Ala TABLET 1 TAB PO (08:20)
[2022-12-15] MEDS: buPROPion HCl XL 300 MG TAB.ER.24H PO (08:20)
[2022-12-15] MEDS: busPIRone HCl 5 MG TABLET 15 MG PO ×2 (08:20→20:19)
[2022-12-15] MEDS: Docusate Sodium 100 MG CAPSULE PO ×2 (08:20→20:19)
[2022-12-15] MEDS: Gabapentin 400 MG CAPSULE 800 MG PO ×3 (08:20→20:18)
[2022-12-15] MEDS: Ibuprofen 600 MG TABLET PO ×3 (08:20→20:19)
[2022-12-15] MEDS: methADONE HCl 20 MG/2 ML ORAL.CONC 70 MG PO (08:21)
[2022-12-15 08:35] VITALS: PULSE 71; RESP 20; O2SAT 97
[2022-12-15] MEDS: Fluticasone/Vilanterol 100/25 BLST.W.DEV 1 PUFF INHALE (08:53)
[2022-12-15 09:18] VITALS: BP 104/73; PULSE 65; RESP 17; TEMP 36.6; O2SAT 97
--- NOTE | 2022-12-15 13:00 | MHC.CM.ED ---
[facility] Patient's Methadone clinic, [facility], sent a release of information form for patient to sign so they can sent and receive information with [facility] in [place]. T/W spoke with intake at [facility]. They have received info from patient's clinic. However, they need clinical information faxed from our ER. Information faxed to [phone] as requested. It is unlikely patient will be set up with their program before tomorrow. Patient, Vee VILLA and Yocasta ANDINO aware. Continue to monitor or d/c needs.
--- NOTE | 2022-12-15 16:52 | PC.NURSE ---
Assumed care of patient 15:00 Pt A+Ox4, clear speech, able to communicate needs States hip pain level improved after prn medications administered, no complaints at this time Pt asked for gingerale and saltine crackers, nurse provided. Respirations WNL, nonlabored, on room air.
[2022-12-15] MEDS: QUEtiapine Fumarate 300 MG TABLET PO (20:22)
[2022-12-15 22:04] VITALS: BP 177/74; PULSE 62; RESP 16; TEMP 36.6; O2SAT 96
[2022-12-16] MEDS: Acetaminophen 325 MG TABLET 975 MG PO ×2 (05:48→11:57)
[2022-12-16] MEDS: Omeprazole 40 MG CAPSULE.DR PO (05:48)
[2022-12-16] MEDS: oxyCODONE HCl Immed Release 5 MG TABLET 10 MG PO ×2 (05:51→11:57)
[2022-12-16 06:00] VITALS: BP 122/72; PULSE 60; RESP 12; TEMP 36.7; O2SAT 98
[2022-12-16] MEDS: Fluticasone/Vilanterol 100/25 BLST.W.DEV 1 PUFF INHALE (08:16)
[2022-12-16 08:17] VITALS: PULSE 86; RESP 18; O2SAT 95
[2022-12-16] MEDS: busPIRone HCl 5 MG TABLET 15 MG PO (09:02)
[2022-12-16] MEDS: Gabapentin 400 MG CAPSULE 800 MG PO (09:02)
[2022-12-16] MEDS: Bictegrav/Emtricit/Tenofov Ala TABLET 1 TAB PO (09:02)
[2022-12-16] MEDS: methADONE HCl 20 MG/2 ML ORAL.CONC 70 MG PO (09:03)
[2022-12-16] MEDS: Docusate Sodium 100 MG CAPSULE PO (09:03)
[2022-12-16] MEDS: buPROPion HCl XL 300 MG TAB.ER.24H PO (09:03)
[2022-12-16] MEDS: Nicotine 21 MG PATCH.TD24 TRANSDERMA (09:03)
[2022-12-16] MEDS: Ibuprofen 600 MG TABLET PO (09:03)
[2022-12-16] MEDS: busPIRone HCl 10 MG TABLET PO (09:03)
--- NOTE | 2022-12-16 09:10 | PC.NURSE ---
Pt resting comfortably in bed, medicated per the MAR. Pt offering no complaints, questioning about potential discharge today.
--- NOTE | 2022-12-16 10:37 | PC.NURSE ---
Plan for discharge at 1130 via EMS to facility
--- NOTE | 2022-12-16 12:11 | PC.NURSE ---
Report given to short term rehab, EMS to transfer patient at this time.
== END 2022-12-16 12:11 ==
PROVIDERS: Physician Assistant; Physician Assistant Medical; Emergency Provider Emergency Medicine; PCP Nurse Practitioner Primary Care
DX: S72.141A Displaced intertrochanteric fracture of right femur, initial encounter for closed fracture (principal); W01.0XXA Fall on same level from slipping, tripping and stumbling without subsequent striking against object, initial encounter; F11.20 Opioid dependence, uncomplicated; B20 Human immunodeficiency virus [HIV] disease; B19.20 Unspecified viral hepatitis C without hepatic coma; Z96.643 Presence of artificial hip joint, bilateral; Z79.899 Other long term (current) drug therapy; F17.210 Nicotine dependence, cigarettes, uncomplicated; Z20.822 Contact with and (suspected) exposure to COVID-19; Y93.89 Activity, other specified; Y92.049 Unspecified place in boarding-house as the place of occurrence of the external cause; Y99.9 Unspecified external cause status
CPT/HCPCS: 36415; 73502; 80048; 80053; 80307; 83735; 85025; 87635; 93005; 96374; 97162; 99285; J2270

== ENCOUNTER 2023-01-26 10:18 | Outpatient (REF) | payer OTHER, MEDICAID, SELFPAY ==
--- NOTE | ~2023-01-26 | XR_ITS ---
EXAMINATION: XR HIP, RIGHT CLINICAL INFORMATION: Pain COMPARISON: Previous x-ray November 2022 TECHNIQUE: Two views of the right hip and one view of the pelvis. FINDINGS: There are bilateral hip replacements. No fracture, dislocation or x-ray evidence of loosening. The stem of the femoral component of the left hip replacement is not imaged. There is arthritis at the sacroiliac joints. Bones of the pelvis are otherwise normal. There are degenerative changes of the lower lumbar spine. There is a L4 vertebral body compression fracture. Soft tissues are normal. XR/XR hip RT w PEL1V IMPRESSION: Satisfactory appearance of right hip replacement.
== END 2023-01-26 10:19 | disposition home or self-care (01) ==
LOC: HO.HOSX 10:18
PROVIDERS: Visit Provider Physician Assistant
DX: Z13.89 Encounter for screening for other disorder (principal)

== ENCOUNTER → 2023-01-31 08:12 | Outpatient (BNVA) | payer OTHER, MEDICAID, SELFPAY | PROVIDERS: PCP Nurse Practitioner Primary Care; Visit Provider Physician Assistant | DX: M97.01XA Periprosthetic fracture around internal prosthetic right hip joint, initial encounter (principal) | CPT/HCPCS: 73502; 99212 ==

== ENCOUNTER 2023-02-28 07:36 | Outpatient (REF) | payer OTHER, MEDICAID, SELFPAY ==
--- NOTE | ~2023-02-28 | XR_ITS ---
EXAMINATION: XR HIP, RIGHT CLINICAL INFORMATION: Pain. COMPARISON: Radiographs dated 01/31/2023. TECHNIQUE: Two views of the right hip. FINDINGS: Prosthetic components of the bilateral total hip arthroplasties are appropriately aligned, without periprosthetic fracture or abnormal lucency. No component migration. There are pelvic phleboliths. Right femoral atherosclerotic calcifications are noted. XR/XR hip RT w PEL1V IMPRESSION: Appropriate alignment of the bilateral total hip arthroplasties, without surrounding abnormalities.
== END 2023-02-28 07:37 | disposition home or self-care (01) ==
LOC: HO.HOSX 07:36
PROVIDERS: Visit Provider Physician Assistant
DX: M97.01XA Periprosthetic fracture around internal prosthetic right hip joint, initial encounter (principal)
CPT/HCPCS: 73502; 99212

== ENCOUNTER 2023-04-16 04:18 | Emergency (ER) | payer OTHER, SELFPAY ==
--- NOTE | ~2023-04-16 | XR_ITS ---
EXAMINATION: XR HIP, RIGHT CLINICAL INFORMATION: Status post fall COMPARISON: 02/28/2023 TECHNIQUE: Two views of the right hip. AP pelvis. FINDINGS: Bilateral total hip arthroplasty hardware appears well seated and in anatomic alignment. No acute fracture is seen. Sacroiliac joints and pubic symphysis appear intact. Phleboliths are present in the pelvis. Scattered vascular calcifications. XR/XR hip RT w PEL1V IMPRESSION: No acute findings identified. Status post bilateral hip arthroplasty.
--- NOTE | ~2023-04-16 | XR_ITS ---
EXAMINATION: XR LUMBOSACRAL SPINE CLINICAL INFORMATION: Status post fall COMPARISON: 09/06/2022 TECHNIQUE: Three views of the lumbosacral spine. FINDINGS: Alignment of the vertebral bodies and posterior elements appears anatomic. There is partial loss of height in the superior endplate of L4 which appears without significant change from 09/06/2022. Remaining vertebral body heights are maintained. There is multilevel disc space narrowing throughout the lumbar spine with vacuum disc phenomena at T12-L1, L1-L2, and L2-L3. There is facet arthropathy of the lower lumbar spine. No acute fracture is seen. Sacroiliac joints are intact. XR/XR lumbar spine 2-3V IMPRESSION: No acute findings identified. Chronic/degenerative changes as described above.
[2023-04-16 04:27] VITALS: BP 109/65; BP 138/80; PULSE 73; PULSE 76; RESP 14; TEMP 36.4; O2SAT 94; O2SAT 97; BMI 25.8
--- NOTE | 2023-04-16 04:33 | ED.FALL ---
HPI - Fall General Chief Complaint: ETOH/Substance Use Stated Complaint: ETOH/FALL Time Seen by Provider: 04/16/23 04:29 Source: patient Mode of arrival: EMS Limitations: no limitations History of Present Illness HPI Narrative: Patient With history of alcohol abuse comes here as he fell yesterday and having pain in the lower back and right hip ,history of hip surgery in the past no head injury no loss of consciousness patient is ambulatory no bladder or bowel incontinence Related Data Home Medications Medication Instructions Recorded Confirmed bictegravir 50 mg-emtricitabine 1 tab PO DAILY 09/04/20 12/08/22 200 mg-tenofovir alafenam 25 mg tablet (Biktarvy) gabapentin 800 mg tablet 800 mg PO TID 09/04/20 12/08/22 inhalational spacing device #1 ea 09/04/20 09/07/22 (Aerochamber Plus Z Stat spacer) quetiapine 300 mg tablet 300 mg PO BEDTIME 09/04/20 12/08/22 buspirone 15 mg tablet 15 mg PO BID 09/07/22 12/08/22 ibuprofen 600 mg tablet 600 mg PO TID PRN Pain 09/07/22 12/08/22 methadone 10 mg/mL oral concentrate 69 mg PO DAILY 09/07/22 12/08/22 omeprazole 40 mg capsule,delayed 1 cap PO DAILY@0630 09/07/22 12/08/22 release bupropion HCl 300 mg 24 hr tablet, 1 tab PO DAILY 12/08/22 12/08/22 extended release buspirone 10 mg tablet 10 mg PO BID 12/08/22 12/08/22 clonidine HCl 0.1 mg tablet 1 tab PO BID PRN Anxiety 12/08/22 12/08/22 fluticasone furoate 100 1 puff inhalation DAILY 12/08/22 12/08/22 mcg-vilanterol 25 mcg/dose inhalation powder (Breo Ellipta) Previous Rx's Medication Instructions Recorded oxycodone 10 mg tablet 10 mg PO Q6H PRN severe pain 12/16/22 (scale score 7-10) #8 tabs cyclobenzaprine 10 mg tablet 10 mg PO Q8H #20 tabs 04/16/23 tramadol 50 mg tablet 50 mg PO Q6H PRN pain #20 tabs 04/16/23 Allergies Allergy/AdvReac Type Severity Reaction Status Date / Time ketorolac [From Toradol] AdvReac Itching Verified 02/28/23 14:51 Review of Systems Review of Systems: Yes all other systems are reviewed and are negative [facility] Past Medical History Medical History Colitis COPD (chronic obstructive pulmonary disease) Hepatitis C HIV infection Hypertension IBS (irritable bowel syndrome) Opioid dependence Osteoarthritis of both hips Prediabetes PTSD (post-traumatic stress disorder) Surgical History History of right hip replacement Status post right shoulder hemiarthroplasty Family History Family History Other No family history of coronary artery disease Social History Social History Alcohol intake: current Alcohol intake frequency: 3 or more drinks per day Alcohol type: beer Patient Tobacco Use Status: Current everyday Tobacco user Cigarette Packs Per Day: 1 Use of substances other than those prescribed or required for medical reasons: No Advance Directives: Yes Advance Directives on File: Yes Advance Directives Date on File: 09/07/22 service: No Current occupational status: disabled Physical Exam Vital Signs: Vital Signs: Last Vital Signs Temp 98.1 F 04/16/23 05:46 Pulse 75 04/16/23 05:46 Resp 12 04/16/23 05:46 BP 103/61 04/16/23 05:46 Pulse Ox 93 04/16/23 05:46 O2 Del Method Room Air 04/16/23 05:46 BMI result Body Mass Index 25.8 Appearance: Alert. Oriented X3. No acute distress. Eyes: PERRLA, No Nystagmus ENT: Pharynx normal. Oral Mucosa moist Neck: Normal inspection. Neck supple. CVS: Normal heart rate and rhythm. Pulses normal. Respiratory: No respiratory distress. Equal air entry bilateral, no wheezing/rales/rhonchi Abdomen: Soft and nontender. Bowel sounds are present, no mass palpable, no CVA tenderness Skin: Skin warm and dry. Normal skin color. Normal skin turgor. Extremities: No lower extremity edema. No calf tenderness back: Diffuse tenderness lower lumbar area SLR negative bilateral patient ambulatory and steady gait pelvis stable soft tissue tenderness right hip Neuro: Oriented X 3. No motor deficit. No sensory deficit.No cerebellar signs , cranial nerves II-XII intact Medications Administered Discontinued Medications Generic Name Dose Route Start Last Admin Trade Name Manuelq PRN Reason Stop Dose Admin Oxycodone HCl 10 mg 04/16/23 04:34 04/16/23 04:45 Oxycodone Hcl Immed Release 5 Mg Tablet PO 04/16/23 04:35 10 mg ONCE ONE Administration Medical Decision Making Medical Decision Making MDM Narrative: Patient x-ray negative for any fracture ambulate in the ER discharge patient home on tramadol and Flexeril Discharge Plan Discharge Clinical Impression: Lumbosacral strain Patient Disposition: Home, Self-Care Instructions: Low Back Strain (ED) Additional Instructions: Take pain medication and muscle relaxer as prescribed follow with PCP Prescriptions: New cyclobenzaprine 10 mg tablet 10 mg PO Q8H Qty: 20 0RF tramadol 50 mg tablet 50 mg PO Q6H PRN (Reason: pain) Qty: 20 0RF No Action clonidine HCl 0.1 mg tablet 1 tab PO BID PRN (Reason: Anxiety) bupropion HCl 300 mg tablet extended release 24 hr 1 tab PO DAILY fluticasone furoate-vilanterol [Breo Ellipta] 100-25 mcg/dose blister with device 1 puff inhalation DAILY buspirone 10 mg Tablet 10 mg PO BID oxycodone 10 mg tablet 10 mg PO Q6H PRN (Reason: severe pain (scale score 7-10)) Qty: 8 0RF Rx Instructions: Partial Fill upon patient request. omeprazole 40 mg capsule,delayed release(DR/EC) 1 cap PO DAILY@0630 buspirone 15 mg tablet 15 mg PO BID methadone 10 mg/mL Concentrate 69 mg PO DAILY ibuprofen 600 mg Tablet 600 mg PO TID PRN (Reason: Pain) (DME) Aerochamber Plus Z Stat Spacer See Rx Instructions .ROUTE .MEDSUPPLY Qty: 1 Rx Instructions: As directed Biktarvy 50-200-25 mg tablet 1 tab PO DAILY gabapentin 800 mg tablet 800 mg PO TID quetiapine 300 mg tablet 300 mg PO BEDTIME
[2023-04-16 04:41] VITALS: PULSE 73
[2023-04-16] MEDS: oxyCODONE HCl Immed Release 5 MG TABLET 10 MG PO (04:45)
[2023-04-16 05:46] VITALS: BP 103/61; PULSE 75; RESP 12; TEMP 36.7; O2SAT 93
--- OUTSIDE RECORDS SUMMARY | 2023-04-16 06:24 | XMS_ITS | Continuity of Care Document ---
Author Name Unknown Organization [facility] Address [address] [place] [id number]- Care Team Providers Care Feather Drying Machine Operator Name Role Phone Rosendo Quinonez MD Primary Care Physician Encounter [facility] [place] ACCT R [id number] Date(s): 11/18/19 - 11/28/19 [facility] [address] [place] [id number]- [facility] Attending Physician: Tad Toth Admitting Physician: AdmtrTad Referring Physician: AdmtrTad Allergies, Adverse Reactions, Alerts Substance Reaction Severity Status Toradol Active Immunizations Given and Recorded Vaccine Date Status Refusal Reason influenza virus vaccine, inactivated 07/26/15 Give n Twinrix (oldterm) 1 01/01/14 Given pneumococcal 13-valent vaccine 01/02/13 Given tetanus/diphtheria/pertussis, acel(Tdap) 07/11/12 Given Pneumovax 23 (oldterm) 2 03/16/10 Given 1Admin Note: Booster, double dose in divided doses both arms 2Admin Note: pt states received at [place] Medications amLODIPine 10 mg oral tablet 10 mg, 1, tablet, By Mouth, Daily, # 30 tablet, Refills 2, Tot. Refills 2, Maintenance, 09/23/19 14:17:00 EST, Print Requisition, Dry Weight Start Date: 09/23/19 Stop Date: 12/22/19 Status: Ordered buPROPion 150 mg/12 hours (SR) oral tablet, extended release 1 tablet = 150 mg, By Mouth, 2 times a day, # 60 tablet, 2 Refills, Maintenance, 09/23/19 14:17:00 EST, SR Tablet Start Date: 09/23/19 Status: Ordered clotrimazole 1% topical cream 1 applicator, Topically, 2 times a day, 0 Refills, Maintenance, 09/12/18 11:17:35 EST Start Date: 09/12/18 Status: Ordered Descovy 200 mg-25 mg oral tablet 1 tablet, By Mouth, Daily, # 30 tablet, 2 Refills, Maintenance, 09/23/19 14:15:00 EST, Tablet Start Date: 09/23/19 Status: Ordered Isentress 400 mg oral tablet 1 tablet = 400 mg, By Mouth, 2 times a day, # 60 tablet, 2 Refills, Maintenance, 09/23/19 14:18:00 EST, Tablet Start Date: 09/23/19 Status: Ordered mirtazapine 15 mg oral tablet 1 tablet = 15 mg, By Mouth, Daily at bedtime, # 30 tablet, 2 Refills, Maintenance, 09/23/19 14:17:00 EST, Tablet Start Date: 09/23/19 Status: Ordered Neurontin 800 mg oral tablet 1 tablet = 800 mg, By Mouth, 4 times a day, # 56 tablet, 2 Refills, Maintenance, 09/23/19 14:16:00 EST, Tablet, Dry Weight Start Date: 09/23/19 Stop Date: 11/04/19 Status: Ordered Nicotrol Inhaler 10 mg inhalation device See Instructions, 6 to 16 cartridges per day. donot exceed 16 cartridges per day, # 100 each, 8 Refills, Maintenance, 09/23/19 14:18:00 EST Start Date: 09/23/19 Status: Ordered omeprazole 40 mg oral enteric coated capsule 1 capsule = 40 mg, By Mouth, Daily, # 30 capsule, 2 Refills, Maintenance, 06/28/18 8:57:32 EDT, EC Capsule Start Date: 06/28/18 Status: Ordered prazosin 1 mg oral capsule 1 mg, 1, capsule, By Mouth, Daily at bedtime, # 30 capsule, Refills 2, Tot. Refills 2, Maintenance,09/23/19 14:16:00 EST, Print Requisition Start Date: 09/23/19 Status: Ordered Proventil HFA 90 mcg/inh inhalation aerosol with adapter 1, puffs, Inhalation, Every 6 hours, PRN, # 6.7 Gm, Refills 3, Tot. Refills 3, Maintenance, 09/23/19 14:23:00 EST, Aerosol, Print Requisition Start Date: 09/23/19 Status: Ordered SEROquel 25 mg oral tablet 25 mg, 1, tablet, By Mouth, 3 times a day, PRN, # 90 tablet, Refills 2, Tot. Refills 2, Maintenance, Anxiety, 09/23/19 14:18:00 EST, Print Requisition Start Date: 09/23/19 Status: Ordered SEROquel 300 mg oral tablet 1 tablet = 300 mg, By Mouth, Daily at bedtime, # 30 tablet, 2 Refills, Maintenance, 09/23/19 14:18:00 EST, Tablet Start Date: 09/23/19 Status: Ordered Spiriva HandiHaler 18 mcg inhalation capsule 1 capsule = 18 mcg, Inhalation, Daily, # 30 capsule, 2 Refills, Maintenance, 09/23/19 14:22:00 EST Start Date: 09/23/19 Status: Ordered Suboxone 8 mg-2 mg Sublingual Film 2 film, Sublingual, Daily, dissolve under the tongue, 0 Refills, Maintenance, 08/26/19 23:21:55 EST, Film Start Date: 08/26/19 Status: Ordered Problem List Condition Effective Dates Status Health Status Inform ant COPD exacerbation(Confirmed) Active Asthma(Confirmed) Active Cannabis abuse(Confirmed) Active Chronic low back pain(Confirmed) 07/11/12 Active Cocaine abuse(Confirmed) Active DDD (degenerative disc disease)(Confirmed) Active H/O repair of right rotator cuff(Confirmed) Active HIV(Confirmed) Active HIV disease(Confirmed) Active HLA-B*5701 positive(Confirmed) 1 08/30/18 Active Hypertension(Confirmed) Active Major depressive disorder(Confirmed) Active Nicotine dependence(Confirmed) Active Opiate dependence(Confirmed) Active 1Lab done at [facility]- document sent to scanning. Social History Social History Type Response Smoking Status Current every day klaudia welsh entered on: 08/21/16 Sex
--- OUTSIDE RECORDS SUMMARY | 2023-04-16 06:24 | XMS_ITS | Continuity of Care Document ---
Author Name Unknown Organization [facility] Address [address] [place] [address]- Care Team Providers Care Freight Broker Name Role Phone Naga KOHLER, Shayy Barnes Primary Care Physician [place] [facility] [place]/22 [facility] [address], [place] [address] Attending Physician: Tad Toth Admitting Physician: Tad Toth Referring Physician: AdmtrTad Allergies, Adverse Reactions, Alerts [...] arms 2Admin Note: pt states received at [facility] acetaminophen 325 mg oral tablet 650 mg, By Mouth, Every 6 hours, Refills 0, Maintenance, 03/02/22 11:12:00 EDT, Partial fill upon patient request if the prescription is for a schedule II opioid drug. Start Date: 03/02/22 Status: Ordered aspirin 325 mg oral tablet 325 mg, 1, tablet, By Mouth, 2 times a day, enteric coated, # 60 tablet, Refills 0, Tot. Refills 0,Maintenance, 03/02/22 11:13:00 EDT, Route to Pharmacy Electronically, [facility]-, Partial fill upon patient request if the pre... Start Date: 03/02/22 Stop Date: 04/01/22 Status: Ordered Biktarvy oral tablet 1 tablet, By Mouth, Daily, # 30 tablet, 0 Refills, Maintenance, 02/14/22 8:31:00 EDT, Tablet, Partial fill upon patient request if the prescription is for a schedule II opioid drug. Start Date: 02/14/22 Status: Ordered Breo Ellipta 100 mcg-25 mcg/inh inhalation powder 1 puffs, Inhalation, Daily, # 30 each, 0 Refills, Maintenance, 02/14/22 8:31:00 EDT, Powder, Partial fill upon patient request if the prescription is for a schedule II opioid drug. Start Date: 02/14/22 Status: Ordered buPROPion 150 mg/12 hours (SR) oral tablet, extended release 1 tablet = 150 mg, By Mouth, 2 times a day, 0 Refills, Maintenance, 03/02/22 11:23:00 EDT, SR Tablet, Partial fill upon patient request if the prescription is for a schedule II opioid drug. Start Date: 03/02/22 Status: Ordered busPIRone 10 mg oral tablet 25 mg, 2.5, tablet, By Mouth, Daily in AM, Refills 0, Maintenance, 03/02/22 11:12:00 EDT, Partial fill upon patient request if the prescription is for a schedule II opioid drug. Start Date: 03/02/22 Status: Ordered celecoxib 200 mg oral capsule 1 capsule = 200 mg, By Mouth, Daily in AM, # 30 capsule, 0 Refills, Maintenance, 03/02/22 11:14:00 EDT, Capsule, [facility]-, Partial fill upon patient request if the prescription is for a schedule II opioid drug., 180.34, cm,... Start Date: 03/02/22 Stop Date: 04/01/22 Status: Ordered docusate sodium 100 mg oral capsule 100 mg, 1, capsule, By Mouth, 2 times a day, hold for loose stool, # 60 capsule, Refills 0, Tot. Refills 0, Maintenance, 03/02/22 11:14:00 EDT, Route to Pharmacy Electronically, [facility]-, Partial fill upon patient request if... Start Date: 03/02/22 Stop Date: 04/01/22 Status: Ordered duloxetine 30 mg oral enteric coated capsule 1 capsule = 30 mg, By Mouth, Daily, # 30 capsule, 0 Refills, Maintenance, 02/14/22 8:31:00 EDT, Partial fill upon patient request if the prescription is for a schedule II opioid drug. Start Date: 02/14/22 Status: Ordered gabapentin 400 mg oral capsule 800 mg, 2, capsule, By Mouth, 3 times a day, Refills 0, Maintenance, 03/02/22 11:12:00 EDT, Partialfill upon patient request if the prescription is for a schedule II opioid drug. Start Date: 03/02/22 Status: Ordered Maalox Plus Liquid 30 mL, By Mouth, Every 4 hours, PRN Other, Heartburn, 0 Refills, Maintenance, 03/02/22 11:12:00 EDT, Suspension, Partial fill upon patient request if the prescription is for a schedule II opioid drug. Start Date: 03/02/22 Status: Ordered Methadone = 95 mg, Daily, 0 Refills, Maintenance, 02/14/22 12:52:00 EDT, Partial fill upon patient request ifthe prescription is for a schedule II opioid drug. Start Date: 02/14/22 Status: Ordered methocarbamol 750 mg oral tablet 0 Refills, Maintenance, 02/14/22 8:32:00 EDT, Partial fill upon patient request if the prescriptionis for a schedule II opioid drug. Start Date: 02/14/22 Status: Ordered MiraLax Powder 1 pack/packet = 17 Gm, By Mouth, Daily, PRN Constipation, 0 Refills, Maintenance, 03/02/22 11:15:00EDT, Powder, Partial fill upon patient request if the prescription is for a schedule II opioid drug. Start Date: 03/02/22 Status: Ordered MOM Liquid 30 mL, By Mouth, Daily, PRN Constipation, 0 Refills, Maintenance, 03/02/22 11:15:00 EDT, Suspension, Partial fill upon patient request if the prescription is for a schedule II opioid drug. Start Date: 03/02/22 Status: Ordered omeprazole 40 mg oral enteric coated capsule 1 capsule = 40 mg, By Mouth, Daily, # 30 capsule, 0 Refills, Maintenance, 02/14/22 8:31:00 EDT, EC Capsule, Partial fill upon patient request if the prescription is for a schedule II opioid drug. Start Date: 02/14/22 Status: Ordered QUEtiapine 100 mg oral tablet 300 mg, 3, tablet, By Mouth, Daily at bedtime, Refills 0, Maintenance, 03/02/22 11:12:00 EDT, Partial fill upon patient request if the prescription is for a schedule II opioid drug. Start Date: 03/02/22 Status: Ordered senna 187 mg oral tablet 1 tablet = 8.6 mg, By Mouth, Daily at bedtime, PRN as needed for constipation, 0 Refills, Maintenance, 03/02/22 11:15:00 EDT, Tablet, Partial fill upon patient request if the prescription is for a schedule II opioid drug. Start Date: 03/02/22 Status: Ordered Problem List Condition Effective Dates [...] Active Opiate dependence(Confirmed) Active 1Lab done at [facility]- document sent to scanning. Social History Social History Type Response Smoking Status Current every day klaudia welsh entered on: 08/21/16 Sex
--- OUTSIDE RECORDS SUMMARY | 2023-04-16 06:24 | XMS_ITS | Continuity of Care Document ---
Author Name Unknown Organization [facility] Address [address] [place] [address]- Care Team Providers Care Photo Technician Name Role Phone Naga KOHLER, Shayy Barnes Primary Care Physician Encounter [facility] [place] [id number] Date(s): 12/31/21 - 01/07/22 [facility] [address] [place] [address]- Encounter Diagnosis Osteoarthritis of left hip(Discharge Diagnosis) - 12/31/21 Attending Physician: Ezequiel Ragland DO Referring Physician: Shayy Nielson NP Allergies, Adverse Reactions, Alerts Substance Reaction Severity Status Toradol Active Immunizations Given and Recorded Vaccine Date Status Refusal Reason influenza virus vaccine, inactivated 07/26/15 Give n Twinrix (oldterm) 1 01/01/14 Given pneumococcal 13-valent vaccine 01/02/13 Given tetanus/diphtheria/pertussis, acel(Tdap) 07/11/12 Given Pneumovax 23 (oldterm) 2 03/16/10 Given 1Admin Note: Booster, double dose in divided doses both arms 2Admin Note: pt states received at [place] Medications acetaminophen 500 mg oral tablet 1 tablet = 500 mg, By Mouth, 3 times a day, PRN as needed for pain, # 50 tablet, 0 Refills, Acute 01/10/22 17:42:00 EDT, 12/31/21 17:42:00 EDT, Tablet, [facility]/pharmacy #[id number], Partial fill upon patient request if the prescription is for a schedule II opio... Start Date: 12/31/21 Stop Date: 01/10/22 Status: Ordered amLODIPine 10 mg oral tablet 10 mg, [...] EST, Tablet Start Date: 09/23/19 Status: Ordered ibuprofen 600 mg oral tablet See Instructions, 1 tablet By Mouth Every 8 hours as needed for pain take with food or milk, # 50 tablet, Refills 0, Tot. Refills 0, Acute 01/22/22 17:42:00 EDT, 12/31/21 17:41:00 EDT, Instructions Replace Required Details, Route to Pharmacy Electron... Start Date: 12/31/21 Stop Date: 01/22/22 Status: Ordered Isentress 400 mg oral tablet [...] Active Opiate dependence(Confirmed) Active 1Lab done at [facility]- document sent to scanning. Diagnosis Diagnosis Type Effective Dates Health Status Clinical Service Informant Osteoarthritis of left hip Discharge Diagnosis 12/31/21 Vital Signs Most recent to oldest [Reference Range]: 1 Height 180 cm (12/31/21 5:23 PM) Oxygen Saturation [94-100 %] 99 % (12/31/21 5:23 PM) Pulse Rate [55-90 bpm] 73 bpm (12/31/21 5:23 PM) Blood Pressure [90-138/55-84 mm Hg] 168/ 92mm Hg *H* (12/31/21 5:23 PM) Respiratory Rate [16-30 br/min] 20 br/mi n (12/31/21 5:23 PM) Temperature [96.8-100.4 DegF] 97.9 DegF (12/31/21 5:23 PM) Mode of Delivery (Oxygen) Room air (12/31/21 5:23 PM) Blood pressure sites Arm, left (12/31/21 5:23 PM) Temperature Route Temporal (12/31/21 5:23 PM) Social History Social History Type Response Smoking Status Current every day klaudia welsh entered on: 08/21/16 Sex
--- OUTSIDE RECORDS SUMMARY | 2023-04-16 06:24 | XMS_ITS | Continuity of Care Document ---
Author Name Unknown Organization [facility] Address [address] [place] [address]- Care Team Providers Care Auto Rental Supervisor Name Role Phone Naga KOHLER, Shayy Barnes Primary Care Physician Encounter [facility] [place] Date(s): 02/25/22 - 03/27/[address] [address] Attending Physician: AdmtrTad Admitting Physician: AdmtrTad Referring Physician: Admtr, ArZulma Allergies, Adverse Reactions, Alerts Substance Reaction Severity Status Toradol Active Immunizations Given and Recorded Vaccine Date Status Refusal Reason influenza virus vaccine, inactivated 07/26/15 Give n Twinrix (oldterm) 1 01/01/14 Given pneumococcal 13-valent vaccine 01/02/13 Given tetanus/diphtheria/pertussis, acel(Tdap) 07/11/12 Given Pneumovax 23 (oldterm) 2 03/16/10 Given 1Admin Note: Booster, double dose in divided doses both arms 2Admin Note: pt states received at [facility] acetaminophen 325 mg oral tablet 650 [...] 03/02/22 11:13:00 EDT, Route to Pharmacy Electronically, [facility]-, Partial fill upon patient request if [...] 0 Refills, Maintenance, 03/02/22 11:14:00 EDT, Capsule, [facility]-, Partial fill upon patient request if the prescription is for a schedule II opioid drug., 180.34, cm,... Start Date: 03/02/22 Stop Date: 04/01/22 Status: Ordered docusate sodium 100 mg oral capsule 100 mg, 1, capsule, By Mouth, 2 times a day, hold for loose stool, # 60 capsule, Refills 0, Tot. Refills 0, Maintenance, 03/02/22 11:14:00 EDT, Route to Pharmacy Electronically, [facility]-, Partial fill upon patient request if... [...] Active Opiate dependence(Confirmed) Active 1Lab done at [facility]- document sent to scanning. Social History Social History Type Response Smoking Status Current every day klaudia welsh entered on: 08/21/16 Sex
--- OUTSIDE RECORDS SUMMARY | 2023-04-16 06:24 | XMS_ITS | Continuity of Care Document ---
Author Name Unknown Organization [facility] Address [address] [place] [address]- Care Team Providers Care Auto Service Instructor Name Role Phone Rosendo Quinonez MD Primary Care Physician [place] [facility] [place]02/19 [facility] [address] [place] [id number] [facility] Attending Physician: Chad Sethi MD Admitting Physician: Chad Sethi MD Referring Physician: Rosendo Quinonez MD Allergies, Adverse Reactions, Alerts Substance Reaction Severity Status Toradol Active Immunizations Given and Recorded Vaccine Date Status Refusal Reason influenza virus vaccine, inactivated 07/26/15 Give n Twinrix (oldterm) 1 01/01/14 Given pneumococcal 13-valent vaccine 01/02/13 Given tetanus/diphtheria/pertussis, acel(Tdap) 07/11/12 Given Pneumovax 23 (oldterm) 2 03/16/10 Given 1Admin Note: Booster, double dose in divided doses both arms 2Admin Note: pt states received at [place] Medications amLODIPine 10 mg oral tablet 10 [...] EST, Film Start Date: 08/26/19 Status: Ordered sulfamethoxazole-trimethoprim 800 mg-160 mg oral tablet 1 tablet, By Mouth, Daily, for 30 days, # 30 tablet, 1 Refills, Acute 11/22/19 14:26:00 EST, 09/23/19 14:26:00 EST, Tablet, Dry Weight Start Date: 09/23/19 Stop Date: 11/22/19 Status: Ordered Problem List Condition Effective Dates [...] Active Opiate dependence(Confirmed) Active 1Lab done at [facility]- document sent to scanning. Social History Social History Type Response Smoking Status Current every day klaudia welsh entered on: 08/21/16 Sex
--- OUTSIDE RECORDS SUMMARY | 2023-04-16 06:24 | XMS_ITS | Continuity of Care Document ---
Author Name Unknown Organization [facility] ter Address [address] [place] [address]- Care Team Providers Care Third Shift Lieutenant Name Role Phone Naga SAFETY LEADER, Shayy Barnes Primary Care Physician [phone] Encounter [facility] Date(s): 03/01/22 - 03/03/[address] [address] Discharge Disposition: A-Transfer VNA/Home Health Attending Physician: Gibran Ramirez MD Admitting Physician: Gibran Ramirez MD Referring Physician: Gibran Ramirez MD Allergies, Adverse Reactions, Alerts Substance Reaction Severity Status Toradol Active Immunizations Given and Recorded Vaccine Date Status Refusal Reason influenza virus vaccine, inactivated 07/26/15 Give n Twinrix (oldterm) 1 01/01/14 Given pneumococcal 13-valent vaccine 01/02/13 Given tetanus/diphtheria/pertussis, acel(Tdap) 07/11/12 Given Pneumovax 23 (oldterm) 2 03/16/10 Given 1Admin Note: Booster, double dose in divided doses both arms 2Admin Note: pt states received at [facility] acetaminophen 325 mg oral tablet 650 mg, [...] 03/02/22 11:13:00 EDT, Route to Pharmacy Electronically, [facility], Partial fill upon patient request if the [...] Refills, Maintenance, 03/02/22 11:14:00 EDT, Capsule, [facility]-, Partial fill upon patient request [...] 11:14:00 EDT, Route to Pharmacy Electronically, [facility]-, Partial fill upon patient request [...] opioid drug. Start Date: 03/02/22 Status: Ordered gabapentin 400 mg oral capsule 800 mg, Capsule, By Mouth, 03/03/22 15:00:00 EDT Start Date: 03/03/22 Stop Date: 03/03/22 Status: Completed Maalox Plus Liquid 30 mL, By Mouth, [...] opioid drug. Start Date: 02/14/22 Status: Ordered methadone 10 mg oral tablet 35 mg, Tablet, By Mouth, 03/03/22 14:30:00 EDT Start Date: 03/03/22 Stop Date: 03/03/22 Status: Completed methadone 10 mg oral tablet 30 mg, Tablet, By Mouth, 03/03/22 14:00:00 EDT Start Date: 03/03/22 Stop Date: 03/03/22 Status: Completed methocarbamol 750 mg oral tablet 0 Refills, [...] opioid drug. Start Date: 02/14/22 Status: Ordered oxyCODONE 10 mg oral tablet See Instructions, PRN Pain , Moderate, Take 1-1.5 tablets By Mouth Every 3 hours as needed, # 84 tablet, 0 Refills, Acute 03/09/22 11:18:00 EDT, 03/02/22 11:16:00 EDT, Tablet, [facility], Partial fill upon patient request if t... Start Date: 03/02/22 Stop Date: 03/09/22 Status: Ordered OxyCODONE IR Tablet 15 mg, Tablet, By Mouth, Every 3 hours, PRN for Pain , Moderate, Routine, 03/01/22 12:02:00 EDT Start Date: 03/01/22 Stop Date: 03/04/22 Status: Discontinued QUEtiapine 100 mg oral tablet 300 mg, [...] opioid drug. Start Date: 03/02/22 Status: Ordered Valium 2 mg oral tablet 2 mg, 1, tablet, By Mouth, 3 times a day, PRN, for 7 days, # 21 tablet, Refills 0, Tot. Refills 0, Acute 03/09/22 11:14:00 EDT, Spasm, 03/02/22 11:14:00 EDT, Route to Pharmacy Electronically, [id number], Partial fill upon jose guadalupe... Start Date: 03/02/22 Stop Date: 03/09/22 Status: Ordered Problem List Condition Effective Dates [...] Active Opiate dependence(Confirmed) Active 1Lab done at [facility]- document sent to scanning. Results Radiology Reports * Exam Date Time Procedure Performing Provider Status 03/01/22 10:57 PM Pelvis 1 or 2 Views Garrick Morrison; Auth (Verified) Notes: (Pelvis 1 or 2 Views) Reason For Exam: Postop Prosthesis;Postop Prosthesis RESULT: Pelvis 1 or 2 Views Pelvis 1 or 2 Views Reason: Postop Prosthesis; Clinical Question(s): Status of Hip Prosthesis; Special Instructions: LEFT Hip - Do today at 2200 COMPARISON: Earlier the same day FINDINGS: Completion of a left total hip arthroplasty with intact hardware and normal alignment. Unremarkableright total hip arthroplasty. IMPRESSION: No apparent complication. WSN: [id number] Ordering Physician: Kirstie Restrepo Dictated By: Christopher Gross MD Dictated Date/Time: 03/01/22 11:14 p Reviewed By: Christopher Gross MD Signed By: Christopher Gross MD Signed Date/Time: 03/01/22 11:14 pm Transcribed By: ATUL Transcribed Date/Time: 03/01/22 11:13 pm * Exam Date Time Procedure Performing Provider Status 03/01/22 10:55 AM Pelvis 1 or 2 Views Nicole Hardy; Auth (Verified) Notes: (Pelvis 1 or 2 Views) Reason For Exam: osteoarthritis, left total hip replacement RESULT: Pelvis 1 or 2 Views Pelvis 1 or 2 Views Reason: osteoarthritis, left total hip replacement COMPARISON: Pelvic radiograph 18 2017. Left hip MRI 07/08/2019 FINDINGS: A single crosstable intraoperative view of the pelvis demonstrates changes of recent total left hiparthroplasty. Hardware appears intact and within normal anatomic alignment. No periprosthetic fractures. A total right hip arthroplasty is partially visualized. Moderate subcutaneous emphysema of the left hip from recent instrumentation. A hemostat is superimposed over the left lower pelvis, likely external to the patient. IMPRESSION: Status post placement of a well-aligned and intact total left hip arthroplasty with expected postsurgical changes and no evidence of complication. I have personally reviewed the images and I agree with this report. WSN: [id number] Ordering Physician: Gibran Ramirez Dictated By: Migdalia Fragoso DO Dictated Date/Time: 03/01/22 4:11 pm Reviewed By: Víctor Mederos MD Signed By: Víctor Mederos MD Signed Date/Time: 03/01/22 4:16 pm Transcribed By: ATUL Transcribed Date/Time: 03/01/22 2:02 pm Vital Signs Most recent to oldest [Reference Range]: 1 2 3 4 Height 180.34 cm (03/03/22 10:48 AM) 180.34 cm (03/03/22 7:35 AM) 180.34 cm (03/02/22 6:30 AM) Weight 89.3 kg (03/01/22 9:31 AM) 89.3 kg (03/01/22 7:01 AM) Oxygen Saturation [94-100 %] 98 % (03/03/22 10:48 AM) 95 % (03/03/22 7:35 AM) 96 % (03/03/22 3:00 AM) Pulse Rate [55-90 bpm] 61 bpm (03/03/22 10:48 AM) 59 bpm (03/03/22 7:35 AM) 55 bpm (03/03/22 3:00 AM) Body Mass Index [18.5-24.99] 27.46 *H* (03/01/22 9:31 AM) 27.46 *H* (03/01/22 7:01 AM) Blood Pressure [90-138/55-84 mm Hg] 121/75mm Hg (03/03/22 10:48 AM) 122/93mm Hg (03/03/22 7:35 AM) 114/77mm Hg (03/03/22 3:00 AM) Respiratory Rate [16-30 br/min] 18 br/min (03/03/22 2:35 PM) 18 br/min (03/03/22 2:35 PM) 18 br/min (03/03/22 2:34 PM) 18 br/min (03/03/22 2:34 PM) Temperature [96.8-100.4 DegF] 98.1 DegF (03/03/22 10:48 AM) 97.7 DegF (03/03/22 7:35 AM) 97.4 DegF (03/03/22 3:00 AM) Liters per Minute 2 L/min (03/02/22 12:12 AM) 6 L/min (03/01/22 11:45 AM) 6 L/min (03/01/22 11:35 AM) Mode of Delivery (Oxygen) Room air (03/03/22 10:48 AM) Room air (03/03/22 7:35 AM) Room air (03/03/22 3:00 AM) Blood pressure sites Arm, left (03/03/22 10:48 AM) Arm, right (03/03/22 7:35 AM) Arm, right (03/03/22 3:00 AM) Temperature Route Oral (03/03/22 10:48 AM) Oral (03/03/22 7:35 AM) Oral (03/03/22 3:00 AM) Dry Weight 89.3 kg (03/01/22 7:01 AM) Social History Social History Type Response Smoking Status Current every day klaudia welsh entered on: 08/21/16 Sex
--- OUTSIDE RECORDS SUMMARY | 2023-04-16 06:24 | XMS_ITS | Continuity of Care Document ---
Author Name Unknown Organization [facility] ter Address [address] [place] [address]- Care Team Providers Care Supervisor Gear Repair Name Role Phone Naga BUSINESS OFFICE ASSISTANT, Shayy Barnes Primary Care Physician [phone] [place]counter [facility] Date(s): 02/07/22 - 03/19/[address] [address] Attending Physician: Gibran Ramirez MD Admitting Physician: [...] arms 2Admin Note: pt states received at [place] [facility] acetaminophen 325 mg oral tablet 650 mg, [...] 03/02/22 11:13:00 EDT, Route to Pharmacy Electronically, [facility], Partial fill upon patient request if the [...] 0 Refills, Maintenance, 03/02/22 11:14:00 EDT, Capsule, [facility]-, Partial fill upon patient request if the prescription is for a schedule II opioid drug., 180.34, cm,... Start Date: 03/02/22 Stop Date: 04/01/22 Status: Ordered docusate sodium 100 mg oral capsule 100 mg, 1, capsule, By Mouth, 2 times a day, hold for loose stool, # 60 capsule, Refills 0, Tot. Refills 0, Maintenance, 03/02/22 11:14:00 EDT, Route to Pharmacy Electronically, [facility]-, Partial fill upon patient request if... Start [...] Active Opiate dependence(Confirmed) Active 1Lab done at [facility]- document sent to scanning. Social History Social History Type Response Smoking Status Current every day klaudia welsh entered on: 08/21/16 Sex
--- OUTSIDE RECORDS SUMMARY | 2023-04-16 06:24 | XMS_ITS | Continuity of Care Document ---
Author Name Unknown Organization [facility] Address [address] [place] [address]- Care Team Providers Care Gem Carver Name Role Phone Rosendo Quinonez MD Primary Care Physician [phone] Encounter [facility] Date(s): 09/20/19 - 12/18/19 [facility] [address] [place] [address]- [facility] Attending Physician: Paco Rao MD Admitting Physician: Paco Rao MD Referring Physician: Rosendo Quinonez MD Allergies, [...] arms 2Admin Note: pt states received at [place] Medications amLODIPine 10 mg oral tablet 10 [...] Active Opiate dependence(Confirmed) Active 1Lab done at [facility]- document sent to scanning. Social History Social History Type Response Smoking Status Current every day klaudia welsh entered on: 08/21/16 Sex
--- OUTSIDE RECORDS SUMMARY | 2023-04-16 06:24 | XMS_ITS | Continuity of Care Document ---
Author Name Unknown Organization [facility] Address [address] [place] [address]- Care Team Providers Care Content Manager Name Role Phone Naga DRONE OPERATOR, Shayy Barnes Primary Care Physician [place] [facility] 12/[place]/21 - 01/30/22 [facility] [address] [place], [place] [address] Attending Physician: Tad Toth Admitting Physician: AdmTad valdez Referring Physician: AdmtrTad Allergies, Adverse Reactions, Alerts [...] arms 2Admin Note: pt states received at [place] Medications amLODIPine 10 mg oral tablet 10 [...] Active Opiate dependence(Confirmed) Active 1Lab done at [facility]- document sent to scanning. Social History Social History Type Response Smoking Status Current every day klaudia welsh entered on: 08/21/16 Sex
--- OUTSIDE RECORDS SUMMARY | 2023-04-16 06:24 | XMS_ITS | Continuity of Care Document ---
Author Name Unknown Organization [facility] Address [address] [place] [address]- Care Team Providers Care Industrial Ecology Technician Name Role Phone Rosendo Quinonez MD Primary Care Physician Encounter [facility] Date(s): 09/02/19 - 10/26/19 [facility] [address] [place] [address] [facility] Attending Physician: Chad Sethi MD Admitting Physician: [...] arms 2Admin Note: pt states received at [place] Medications amLODIPine 10 mg oral tablet 10 [...] [facility]- document sent to scanning. Social History Social History Type Response Smoking Status Current every day klaudia welsh entered on: 08/21/16 Sex
--- OUTSIDE RECORDS SUMMARY | 2023-04-16 06:24 | XMS_ITS | Continuity of Care Document ---
Author Name Unknown Organization [facility] Address [address] [place] [address]- Care Team Providers Care Overlock Hemmer Name Role Phone Rosendo Quinonez MD Primary Care Physician Encounter [facility] Date(s): 09/26/19 - 10/06/19 [facility] [address] [place] [address]- [facility] Attending Physician: Admtr, Ar8 Allergies, Adverse Reactions, Alerts Substance Reaction Severity Status Toradol Active Immunizations Given and Recorded Vaccine Date Status Refusal Reason influenza virus vaccine, inactivated 07/26/15 Give n Twinrix (oldterm) 1 01/01/14 Given pneumococcal 13-valent vaccine 01/02/13 Given tetanus/diphtheria/pertussis, acel(Tdap) 07/11/12 Given Pneumovax 23 (oldterm) 2 03/16/10 Given 1Admin Note: Booster, double dose in divided doses both arms 2Admin Note: pt states received at [place] Medications amLODIPine 10 mg oral tablet 10 [...] Active Opiate dependence(Confirmed) Active 1Lab done at [facility]- document sent to scanning. Social History Social History Type Response Smoking Status Current every day klaudia welsh entered on: 08/21/16 Sex
--- OUTSIDE RECORDS SUMMARY | 2023-04-16 06:25 | XMS_ITS | Continuity of Care Document ---
Author Name Unknown Organization [facility] ter Address [address] [place] [address]- Care Team Providers Care Special Services Supervisor Name Role Phone Rosendo Quinonez MD Primary Care Physician [place] [facility] [place] 09/19/19 - 09/23/[address] [address]- [facility] Encounter Diagnosis COPD exacerbation(Final) - 09/17/19 Discharge Disposition: A-D/C Home Attending Physician: Zeke Jacobs MD Admitting Physician: Chayito Shannon MD Referring Physician: Not on Staff, Referring MD Allergies, Adverse Reactions, Alerts Substance Reaction Severity Status Toradol Active Immunizations Given and Recorded Vaccine Date Status Refusal Reason influenza virus vaccine, inactivated 07/26/15 Give n Twinrix (oldterm) 1 01/01/14 Given pneumococcal 13-valent vaccine 01/02/13 Given tetanus/diphtheria/pertussis, acel(Tdap) 07/11/12 Given Pneumovax 23 (oldterm) 2 03/16/10 Given 1Admin Note: Booster, double dose in divided doses both arms 2Admin Note: pt states received at [place] Medications amLODIPine 10 mg oral tablet 10 [...] Print Requisition Start Date: 09/23/19 Status: Ordered predniSONE 20 mg oral tablet 2 tablet = 40 mg, By Mouth, Daily, for 2 days, # 4 tablet, 0 Refills, Acute 01/01/20 15:02:00 EST, 09/23/19 15:02:00 EST, Tablet, [facility] [address], 180, cm, 09/23/19 9:29:00 EST, Height, 84, kg, 09/20/19 16:47:00 EST, Dry Weight Start Date: 09/23/19 Stop Date: 09/25/19 Status: Ordered Proventil HFA 90 mcg/inh inhalation [...] Active Opiate dependence(Confirmed) Active 1Lab done at [facility]- document sent to scanning. Results Orders for Microbiology Reports Name Date Wound Deep Culture w/ Gram Smear (DEEP W OUND CULTURE) 09/20/19 AFB Culture w/ AFB Smear, Respiratory Anaerobic Culture 09/20/19 Fungal Culture, Respiratory 09/20/19 AFB Culture w/ AFB Smear, Respiratory (A ALICIA FAST CULT,RESPIRATORY) 09/19/19 Sputum Culture w/ Gram Smear 09/18/19 Blood Culture 09/17/19 Blood Culture #2 09/17/19 Microbiology Reports TEST:Anaerobic Culture STATUS:Unauthenticated BODY SITE: SOURCE:ASPIRA COLLECTED DATE/TIME:09/20/19 10:40 AM Anaerobic Culture SPECIMEN DESCRIPTION : ASPIRATE LUNGR SPECIAL REQUESTS : NONE CULTURE : NO ANAEROBES ISOLATED SO FAR. REPORT STATUS : PRELIMINARY REPORT TEST:Deep Wound Culture STATUS:Auth (Verified) BODY SITE: SOURCE:ASPIRA COLLECTED DATE/TIME:09/20/19 10:40 AM Deep Wound Culture SPECIMEN DESCRIPTION : ASPIRATE RT LUNG SPECIAL REQUESTS : NONE GRAM STAIN : 3+ POLYMORPHONUCLEAR LEUKOCYTES NO ORGANISMS SEEN CULTURE : 1+ NORMAL VIRIDIANA REPORT STATUS : FINAL 09/22/2019 TEST:AFB Culture w/AFB Smear, Respiratory STATUS:Unauthenticated BODY SITE: SOURCE:BRONCH COLLECTED DATE/TIME:09/20/19 10:40 AM AFB Culture w/AFB Smear, Respiratory SPECIMEN DESCRIPTION : BRONCH WASH, RIGHT LUNGR SPECIAL REQUESTS : NONE DIRECT EXAM : NO ACID FAST BACILLI SEEN ON DIRECT SMEAR, TEST PERFORMED AT [facility] CULTURE : SPECIMEN SENT TO [facility], [place], [place] REPORT STATUS : PRELIMINARY REPORT TEST:Fungal Culture, Respiratory STATUS:Unauthenticated BODY SITE: SOURCE:BRONCH COLLECTED DATE/TIME:09/20/19 10:40 AM Fungal Culture, Respiratory SPECIMEN DESCRIPTION : BRONCH WASH, RIGHT LUNGR SPECIAL REQUESTS : NONE DIRECT EXAM : NO FUNGAL ELEMENTS OBSERVED CULTURE : YEAST ISOLATED, ID TO FOLLOW REPORT STATUS : PRELIMINARY REPORT TEST:AFB Culture w/AFB Smear, Respiratory STATUS:Unauthenticated BODY SITE: SOURCE:SPUTUM COLLECTED DATE/TIME:09/19/19 11:06 AM AFB Culture w/AFB Smear, Respiratory SPECIMEN DESCRIPTION : SPUTUM SPECIAL REQUESTS : NONE DIRECT EXAM : NO ACID FAST BACILLI SEEN ON DIRECT SMEAR, TEST PERFORMED AT [facility] CULTURE : SPECIMEN SENT TO [facility], [place], [place] REPORT STATUS : PRELIMINARY REPORT TEST:Sputum Culture STATUS:Auth (Verified) BODY SITE: SOURCE:EXPECT COLLECTED DATE/TIME:09/18/19 10:57 AM Sputum Culture SPECIMEN DESCRIPTION : EXPECTORATED SPUTUM SPECIAL REQUESTS : NONE GRAM STAIN : 3+ POLYMORPHONUCLEAR LEUKOCYTES 2+ TISSUE CELLS 2+ YEAST CULTURE : 2+ NORMAL VIRIDIANA REPORT STATUS : FINAL 09/20/2019 TEST:Blood Culture, Second Order STATUS:Auth (Verified) BODY SITE: SOURCE:Blood COLLECTED DATE/TIME:09/17/19 9:30 AM Blood Culture, Second Order SPECIMEN DESCRIPTION : BLOOD L AC SPECIAL REQUESTS : NONE CULTURE : NO GROWTH 5 DAYS. REPORT STATUS : FINAL 09/22/2019 TEST:Blood Culture STATUS:Auth (Verified) BODY SITE: SOURCE:Blood COLLECTED DATE/TIME:09/17/19 9:22 AM Blood Culture SPECIMEN DESCRIPTION : BLOOD R AC SPECIAL REQUESTS : NONE CULTURE : NO GROWTH 5 DAYS. REPORT STATUS : FINAL 09/22/2019 Radiology Reports * Exam Date Time Procedure Performing Provider Status 09/20/19 9:14 AM Chest Portable Abiel He; Aut h (Verified) Notes: (Chest Portable) Reason For Exam: Fever/Increased White Count RESULT: Chest Portable Chest Portable Refer to EMR; Reason: Fever Increased White Count; Clinical Question(s): Pneumonia; Hx of Present Illness: pt c o productive cough with yellow green colored sputum, ?fevers, wheezing, and SOB for two days now. Pt was discharge last week with pneumonia, finished steroids and still taking bactrim.;Other Objective Findings: pt alert, oriented x3, speaking in full sentences, resp nonlabored and equ COMPARISON: Multiple prior examinations, the most recent 09/17/2019. FINDINGS: LINES AND TUBES: None. LUNGS AND PLEURA: Clear lungs. Normal pulmonary vascularity. No pleural effusion. No pneumothorax. HEART, MEDIASTINUM AND KRYSTAL: Heart is normal in size. Normal mediastinal and hilar contour. BONES AND SOFT TISSUES: No acute abnormality. IMPRESSION: No acute abnormality. I have personally reviewed the images and I agree with this report. WSN: [id number] Dictated By: Pool Boswell MD Dictated Date/Time: 09/20/19 10:03 a Reviewed By: Scott Guzmán MD Signed By: Scott Guzmán MD Signed Date/Time: 09/20/19 10:08 am Transcribed By: ATUL Transcribed Date/Time: 09/20/19 9:30 am * Exam Date Time Procedure Performing Provider Status 09/17/19 9:45 AM Chest 2 Views Frontal and Lat Pat Price; Auth (Verified) Notes: (Chest 2 Views Frontal and Lat) Reason For Exam: Persistent Cough RESULT: Chest 2 Views Frontal and Lat Chest 2 Views Frontal and Lat Indication: Persistent Cough; Clinical Question(s): Pneumonia; Hx of Present Illness: pt c o productive cough with yellow green colored sputum, ?fevers, wheezing, and SOB for two days now. pt was discharge last week with pneumonia, finished steroids and still taking bactrim. COMPARISON: Multiple prior examinations, the most recent 08/26/2019 FINDINGS: LINES AND TUBES: None. LUNGS AND PLEURA: Clear lungs. Normal pulmonary vascularity. No pleural effusion. No pneumothorax. HEART, MEDIASTINUM AND KRYSTAL: Heart is normal in size. Normal mediastinal and hilar contour. BONES AND SOFT TISSUES: No acute abnormality. Postsurgical changes along the right humeral head. IMPRESSION: No evidence of acute abnormality. I have personally reviewed the images and I agree with this report. WSN: [id number] Dictated By: Pool Boswell MD Dictated Date/Time: 09/17/19 9:54 am Reviewed By: Yong Venegas MD Signed By: Yong Venegas MD Signed Date/Time: 09/17/19 9:59 am Transcribed By: ATUL Transcribed Date/Time: 09/17/19 9:52 am Vital Signs Most recent to oldest [Reference Range]: 1 2 3 4 Height 180 cm (12/30/19 9:29 AM) 180 cm (09/22/19 7:00 PM) 180 cm (09/22/19 8:11 AM) Weight 84 kg (09/20/19 4:39 PM) 84 kg (09/20/19 9:52 AM) 84 kg (09/17/19 3:57 PM) Oxygen Saturation [94-100 %] 100 % (09/23/19 9:29 AM) 98 % (09/22/19 7:00 PM) 97 % (09/22/19 8:11 AM) Pulse Rate [55-90 bpm] 97 bpm *H* (09/23/19 9:29 AM) 78 bpm (09/22/19 7:00 PM) 71 bpm (09/22/19 8:11 AM) Body Mass Index [18.5-24.99] 25.93 *H* (09/20/19 4:39 PM) 25.93 *H* (09/20/19 9:52 AM) 25.93 *H* (09/17/19 3:57 PM) Blood Pressure [90-138/55-84 mm Hg] 130/80mm Hg (09/23/19 1:50 PM) 138/82mm Hg (09/23/19 9:29 AM) 129/80mm Hg (09/23/19 8:21 AM) 129/80mm Hg (09/23/19 8:21 AM) Respiratory Rate [16-30 br/min] 18 br/min (09/23/19 10:56 AM) 20 br/min (09/23/19 9:29 AM) 18 br/min (09/22/19 7:00 PM) Temperature [96.8-100.4 DegF] 98.3 DegF (09/23/19 9:29 AM) 98.4 DegF (09/22/19 7:00 PM) 98.2 DegF (09/22/19 8:11 AM) Liters per Minute 10 L/min (09/20/19 11:02 AM) Mode of Delivery (Oxygen) Room air (09/23/19 9:29 AM) Room air (09/22/19 7:00 PM) Room air (09/22/19 8:11 AM) Blood pressure sites Arm, left (09/23/19 9:29 AM) Arm, left (09/22/19 7:00 PM) Arm, left (09/22/19 8:11 AM) Temperature Route Oral (09/23/19 9:29 AM) Oral (09/22/19 7:00 PM) Oral (09/22/19 8:11 AM) Dry Weight 84 kg (09/20/19 4:39 PM) 84 kg (09/17/19 3:57 PM) Weight Obtained Via Bed scale (09/20/19 4:39 PM) Patient/family stated (09/17/19 3:57 PM) Dry Weight Obtained Via Bed scale (09/20/19 4:39 PM) Patient/family stated (09/17/19 3:57 PM) Sensory deficits None (09/20/19 4:39 PM) Mobility assistance Independent (09/20/19 4:39 PM) Social History Social History Type Response Smoking Status Current every day klaudia welsh entered on: 08/21/16 Sex
--- OUTSIDE RECORDS SUMMARY | 2023-04-16 06:25 | XMS_ITS | Continuity of Care Document ---
Author Name Unknown Organization [facility] Address [address] [place] [address]- Care Team Providers Care Retail Service Technician Name Role Phone Naga HADOOP APPLICATION DEVELOPER, Shayy Barnes Primary Care Physician [phone] [place]counter [facility] [place](s): 03/28/23 - 03/31/[address] [address]- Encounter Diagnosis Abdominal pain(Final) - 03/28/23 Discharge Disposition: A-D/C Home Attending Physician: Josias Bearden MD Admitting Physician: Jose Miguel Henson MD Referring Physician: Not on Staff, Referring [...] arms 2Admin Note: pt states received at [facility] Biktarv oral tablet 1 tablet, By Mouth, Daily, [...] Start Date: 02/14/22 Status: Ordered buPROPion 150 mg/24 hours (XL) oral tablet, extended release 1 tablet = 150 mg, By Mouth, Daily in AM, # 30 tablet, 0 Refills, Maintenance, 03/31/23 6:56:00 EDT, XL Tablet, [facility], Partial fill upon patient request if the prescription is for a schedule II opioid drug., 1 tablet By Mouth Daily... Start Date: 03/31/23 Status: Ordered busPIRone 10 mg oral tablet 25 mg, 2.5, tablet, By Mouth, 2 times a day, Refills 0, Maintenance, 03/02/22 11:12:00 EDT, Partialfill upon patient request if the prescription is for a schedule II opioid drug. Start Date: 03/02/22 Status: Ordered duloxetine 30 mg oral enteric coated capsule 1 capsule = 30 mg, By Mouth, Daily, # 30 capsule, 0 Refills, Maintenance, 02/14/22 8:31:00 EDT, Partial fill upon patient request if the prescription is for a schedule II opioid drug. Start Date: 02/14/22 Status: Ordered gabapentin 400 mg oral capsule 800 mg, Capsule, By Mouth, 03/31/23 9:00:00 EDT Start Date: 03/31/23 Stop Date: 03/31/23 Status: Completed gabapentin 800 mg oral tablet 1 tablet = 800 mg, By Mouth, 3 times a day, 0 Refills, Maintenance, 03/28/23 17:58:00 EDT, Partial fill upon patient request if the prescription is for a schedule II opioid drug. Start Date: 03/28/23 Status: Ordered Methadone = 70 mg, By Mouth, Daily, 0 Refills, Maintenance, 02/14/22 12:52:00 EDT, Partial fill upon patient request if the prescription is for a schedule II opioid drug. Start Date: 02/14/22 Status: Ordered Methadone Liquid 70 mg, Solution, By Mouth, RN reports that pharmacy district manager confirmed dose, 03/31/23 9:00:00 EDT Start Date: 03/31/23 Stop Date: 03/31/23 Status: Completed omeprazole 40 mg oral enteric coated capsule 1 capsule = 40 mg, By Mouth, Daily, # 30 capsule, 0 Refills, Maintenance, 02/14/22 8:31:00 EDT, EC Capsule, Partial fill upon patient request if the prescription is for a schedule II opioid drug. Start Date: 02/14/22 Status: Ordered SEROquel 300 mg oral tablet 1 tablet = 300 mg, By Mouth, Daily at bedtime, 0 Refills, Maintenance, 03/28/23 17:59:00 EDT, Partial fill upon patient request if the prescription is for a schedule II opioid drug. Start Date: 03/28/23 Status: Ordered Problem List Condition Confirmation Course Effective Dates Status Health St atus Informant Asthma Confirmed Active Cannabis abuse Confirmed Active Chronic low back pain Confirmed 07/11/12 Active Cocaine abuse Confirmed Active DDD (degenerative disc disease) Confirmed Active H/O repair of right rotator cuff Confirmed Active HIV Confirmed Active HIV disease Confirmed Active HLA-B*5701 positive 1 Confirmed 08/30/18 Active Hypertension Confirmed Active Major depressive disorder Confirmed Active Alcohol use disorder, moderate, dependence Confirmed Active Nicotine dependence Confirmed Active Opiate dependence Confirmed Active COPD with emphysema Confirmed Active 1Lab done at [facility]- document sent to scanning. Results Orders for Microbiology Reports Name Date Blood Culture 03/28/23 Blood Culture #2 03/28/23 Microbiology Reports TEST:Blood Culture, Second Order STATUS:Unauthenticated BODY SITE: SOURCE:Blood COLLECTED DATE/TIME:03/28/23 5:58 AM Blood Culture, Second Order SPECIMEN DESCRIPTION : BLOOD NONE SPECIAL REQUESTS : NONE CULTURE : NO GROWTH AFTER 48 HOURS REPORT STATUS : PRELIMINARY REPORT TEST:Blood Culture STATUS:Unauthenticated BODY SITE: SOURCE:Blood COLLECTED DATE/TIME:03/28/23 5:54 AM Blood Culture SPECIMEN DESCRIPTION : BLOOD NONE SPECIAL REQUESTS : NONE CULTURE : NO GROWTH AFTER 48 HOURS REPORT STATUS : PRELIMINARY REPORT Radiology Reports * Exam Date Time Procedure Performing Provider Status 03/30/23 2:30 AM MRI Abdomen W+W/O Contrast Clement Delunad; Auth (Verified) Notes: (MRI Abdomen W+W/O Contrast) Reason For Exam: Mass on Other Study RESULT: MRI Abdomen W+W/O Contrast MRI Abdomen W+W/O Contrast CLINICAL INDICATION: Complex cyst seen on the lower pole of the left kidney. Question: Tumor Primary TECHNIQUE: Multiplanar, multisequence pre and post contrast MRI evaluation of the abdomen was performed. 19 cc of Clariscan was administered intravenously. COMPARISON: CT 03/28/2023. FINDINGS: LOWER THORAX: No pleural or pericardial effusion. LIVER: Minimally nodular contour with interlobar atrophy and prominence of the lateral segment. Normal parenchymal enhancement. No suspicious lesion. Mild hepatic steatosis as evidenced by loss of signal on opposed phase T1-weighted images. GALLBLADDER: 3 mm dependent filling defect, probably a gallstone (series 4, image 17). Second probable filling defect. BILE DUCTS: No intrahepatic biliary dilation. Top normal common bile duct measuring 0.7 cm (image 21 series 3). No evidence of filling defect or stricture. SPLEEN: Mildly prominent spleen, craniocaudal span 13.8 cm. PANCREAS: Moderately atrophic, two cystic lesions measuring 5 mm, one seen at the body of pancreas (image 18 series 4) and the other at the tail of the pancreas (image 16 series 4). There is no associated solid component, restricted diffusion, or abnormal enhancement No pancreatic ductal dilatation. ADRENAL GLANDS: No nodules. KIDNEYS: The complex lesion seen on CT correlates with a renal cyst with multiple thin nonenhancingseptations. This measures 3.6 x 3.6 x 4.3 cm. There is no restricted diffusion. No associated solidcomponent. Medially in the left upper pole is a 2.7 cm cyst with a few, thin, partial, peripheral, nonenhancing septations, Bosniak II. No hydronephrosis. Kidneys enhance symmetrically. Additional bilateral renal T2 hyperintense foci consistent with cysts. No suspicious mass. STOMACH/UPPER GI TRACT: Stomach and visualized abdominal bowel normal in caliber. PERITONEUM AND RETROPERITONEUM: No loculated fluid collection or peritoneal mass. LYMPH NODES: No lymphadenopathy. VESSELS: Abdominal aorta is nonaneurysmal with mild atherosclerotic irregularity. Hepatic, portal and splenic veins patent. Visualized inferior vena cava unremarkable. ABDOMINAL WALL: Unremarkable. BONES: Degenerative changes involving the spine including moderate multilevel degenerative disc disease about the thoracolumbar junction. No suspicious focal lesion. IMPRESSION: 4.3 cm minimally complex cyst in the lower pole of the left kidney, with multiple thin septations, Bosniak IIF. Recommend follow-up in one year with renal ultrasound to assess for stability. Cystic lesions seen in the body and tail of the pancreas measuring up to 5 mm. Differential diagnosis includes non-neoplastic cysts, ectatic branch ducts, and low-grade neoplasms such as side-branch intraductal papillary mucinous neoplasms. A follow-up MRI pancreas is suggested in one year, per ACRwhite paper recommendations for management of incidental pancreatic cysts (JACR 2017;14:911- 923). To decrease cost and shorten scan time for the patient, this follow-up MRI could be performed withoutIV contrast. Mildly cirrhotic liver morphology without suspicious lesion; correlate clinically. Mild hepatic steatosis. Minimal splenomegaly may reflect overall body size or mild portal hypertension. Few probable small gallstones. I have personally reviewed the images and I agree with this report. WSN: [id number] Ordering Physician: Víctor Dos Santos Dictated By: Robin Raya DO Dictated Date/Time: 03/30/23 1:43 pm Reviewed By: Yong Joshua MD Signed By: Yong Joshua MD Signed Date/Time: 03/30/23 1:48 pm Transcribed By: ATUL Transcribed Date/Time: 03/30/23 1:30 pm * Exam Date Time Procedure Performing Provider Status 03/28/23 6:25 AM Chest 2 Views Frontal and Lat Rj Aranda; Auth (Verified) Notes: (Chest 2 Views Frontal and Lat) Reason For Exam: Angina RESULT: Chest 2 Views Frontal and Lat Chest 2 Views Frontal and Lat Hx of Present Illness: PT endorses SI with plan to jump off bridge.; Reason: Angina; Clinical Question(s): CHF COMPARISON: 09/20/2019. FINDINGS: LINES AND TUBES: None. LUNGS AND PLEURA: Lung volumes are low and right hemidiaphragm is mildly elevated. Clear lungs. Normal pulmonary vascularity. No pleural effusion. No pneumothorax. HEART, MEDIASTINUM AND KRYSTAL: Heart is normal in size. Normal mediastinal and hilar contour. BONES AND SOFT TISSUES: No acute abnormality. There is a bone anchor in the right humeral head. IMPRESSION: No acute abnormality. WSN: [id number] Ordering Physician: Jennifer Beltran Dictated By: Tk Lacy MD Dictated Date/Time: 03/28/23 8:04 am Reviewed By: Tk Lacy MD Signed By: Tk Lacy MD Signed Date/Time: 03/28/23 8:04 am Transcribed By: ATUL Transcribed Date/Time: 03/28/23 8:04 am * Exam Date Time Procedure Performing Provider Status 03/28/23 6:[address] Abd/Pelvis W/ IV Contrast Only Araceli Fischer; Auth (Verified) Notes: (CT Abd/Pelvis W/ IV Contrast Only) Reason For Exam: LLQ abdominal pain;Other: RESULT: CT Abd/Pelvis W/ IV Contrast Only CT Abd/Pelvis W/ IV Contrast Only INDICATION: Abdominal pain. TECHNIQUE: Spiral CT through the abdomen and pelvis with IV contrast formatted in 3 planes. 100 cc of Omnipaque 300 was administered intravenously. This study was performed without oral contrast. Weight-based protocol using automatic tube modulation was used to optimize exposure parameters. CTDIvol Body: 18.70 mGy, DLP Body: 1045 mGy*cm. COMPARISON: 07/08/2008. FINDINGS: Visualized Chest: Mild right basilar atelectasis with possible scarring. No pleural effusion. The heart is normal in size. No pericardial effusion. Diaphragm: Normal. Liver: Diffuse low-attenuation throughout the liver parenchyma consistent with hepatic steatosis. No evidence of mass. Gallbladder: Cholelithiasis with no evidence of acute cholecystitis. Bile ducts: No biliary ductal dilation. Spleen: Normal. Pancreas: Normal. Adrenal glands: Normal. Kidneys and ureters: 0.5 cm nonobstructing stone in the left kidney (image 46 series 201). No hydronephrosis. 3.4 cm lobular hypodense lesion with few hyperdense septae (image 66 series 201). Simple appearing renal cysts are also noted. Bladder: Normal. Reproductive organs: Unremarkable. Stomach, small bowel, and large bowel: Stomach is normal. There is diffuse distention of the small bowel without a definite transition point. The findings could be secondary to an ileus. Large bowel appears normal. Appendix: Normal. Peritoneum and retroperitoneum: No ascites or pneumoperitoneum. No omental or mesenteric lesions. Lymph nodes: No enlarged lymph nodes. Blood vessels: Mild vascular calcifications but no aneurysm. Abdominal and pelvic wall: Unremarkable. Bones: Bilateral hip arthroplasty. IMPRESSION: Indeterminate 3.4 cm lobular hypodense lesion with few hyperdense septae in the left kidney. Renal protocol MRI is recommended for further evaluation. Cholelithiasis with no evidence of acute cholecystitis. Hepatic steatosis. I have personally reviewed the images and I agree with this report. WSN: [id number] Ordering Physician: Jennifer Beltran Dictated By: Darryl Rosales MD Dictated Date/Time: 03/28/23 7:48 am Reviewed By: Janelle Whitaker MD Signed By: Janelle Whitaker MD Signed Date/Time: 03/28/23 7:53 am Transcribed By: ATUL Transcribed Date/Time: 03/28/23 6:39 am * Exam Date Time Procedure Performing Provider Status 03/28/23 6:[address] Head/Brain W/O Contrast John Driver; Auth (Verified) Notes: (CT Head/Brain W/O Contrast) Reason For Exam: Headache(s) RESULT: CT Head/Brain W/O Contrast CT Head/Brain W/O Contrast INDICATION: PT endorses SI with plan to jump off bridge.; Reason: Headache(s). TECHNIQUE: Noncontrast head CT using axial technique and reconstructed in axial and coronal planes.Iterative reconstruction techniques are used to optimize dose and image quality. CTDIvol Head: 47.80 mGy, DLP Head: 773 mGy*cm. COMPARISON: 08/06/2016. FINDINGS: Please note that evaluation of the skull base is slightly limited by motion artifact. Public Improvement Inspector view findings, lines and tubes: None. BRAIN AND EXTRA-AXIAL SPACES: No parenchymal hemorrhage, midline shift, or mass effect. Johansen-white matter differentiation is wellpreserved. No acute infarct. Negative insular ribbon sign. Atherosclerotic vascular calcification of the carotid arteries but negative hyperdense vessel sign. Mild prominence of the ventricles and sulci consistent with parenchymal volume loss. Mild low-density white matter changes. No subarachnoid hemorrhage. No subdural or epidural collection. CALVARIUM, SKULL BASE, AND SOFT TISSUES: Mild motion artifact, however, no evidence of fractures or suspicious bony lesions. The paranasal sinuses and mastoid air cells are clear. Status-post left lens extraction. The extracranial soft tissues are unremarkable. IMPRESSION: Study slightly limited by motion artifact especially near the skull base. No definite CT evidence of acute intracranial abnormality. I have personally reviewed the images and I agree with this report. WSN: [id number] Ordering Physician: Jennifer Beltran Dictated By: Darryl Rosales MD Dictated Date/Time: 03/28/23 7:03 am Reviewed By: Irais Arnett MD Signed By: Irais Arnett MD Signed Date/Time: 03/28/23 7:08 am Transcribed By: ATUL Transcribed Date/Time: 03/28/23 6:30 am Vital Signs Most recent to oldest [Reference Range]: 1 2 3 Oxygen Saturation [94-100 %] 97 % (03/31/23 7:16 AM) 95 % (03/31/23 4:00 AM) 98 % (03/30/23 8:00 PM) Pulse Rate [55-90 bpm] 74 bpm (03/31/23 7:16 AM) 66 bpm (03/31/23 4:00 AM) 74 bpm (03/30/23 8:00 PM) Blood Pressure [90-138/55-84 mm Hg] 121/88mm Hg (03/31/23 7:16 AM) 144/72mm Hg *H* (03/31/23 4:00 AM) 160/88mm Hg *H* (03/30/23 8:00 PM) Respiratory Rate [16-30 br/min] 18 br/min (03/31/23 8:32 AM) 18 br/min (03/31/23 8:13 AM) 18 br/min (03/31/23 7:16 AM) Temperature [96.8-100.4 DegF] 97.5 DegF (03/31/23 7:16 AM) 97.5 DegF (03/31/23 4:00 AM) 98.0 DegF (03/30/23 8:00 PM) Mode of Delivery (Oxygen) Room air (03/31/23 7:16 AM) Room air (03/31/23 4:00 AM) Room air (03/30/23 8:00 PM) Blood pressure sites Arm, left (03/31/23 7:16 AM) Arm, right (03/31/23 4:00 AM) Arm, right (03/30/23 8:00 PM) Temperature Route Oral (03/31/23 7:16 AM) Oral (03/31/23 4:00 AM) Oral (03/30/23 8:00 PM) Social History Social History Type Response Smoking Status Current every day klaudia welsh entered on: 08/21/16 Sex History and physical note * Deo ALBARRAN, Vandana P: PERFORM Event Display: History and Physical Hospital Authored Date: [id number] Patient: ??WILVER DAMIAN ? Age:??58 Years?Sex:??Male?:??1965?? Chief Complaint/Reason for Consultation SI with plan to jump off bridge, abd pain, ETOH intox History of Present Illness 58-year-old male with history??of??depression,??polysubstance abuse (previous heroin, opiate dependence??on methadone, occasional cocaine use,??alcohol, marijuana,??and tobacco), HIV disease,??prediabetes,??COPD,??peripheral neuropathy,??and chronic low back pain??who presented to the emergency depa rtment this morning??with statements??of suicidal ideation and planning to jump off a bridge.?? He does have a prior history of SI attempt.?? He also reported??abdominal discomfort and nausea that had been going on for a few days. ??This was in the setting of??a recent alcohol binge due to?? life st [employer], ??and also to help control his chronic??pain.?? He states he has been eating poorly and only drinking alcohol??since recently??leaving rehab.?He reports I might have done a line of cocaine. ?? He has had normal bowel movements. ??No vomiting.?No urinary symptoms.?? He has not had any significant chest pain??or shortness of breath.?? No fever. ??He last drank earlier this morning.?? He reports compliance with his medications. ?? In the emergency room, the patient has been afebrile and hemodynamically stable.?? He is in a normal sinus rhythm in the 80s on the monitor.?? He is not in respiratory distress with low normal pulse oximetry around 92 to 93%.?? He was found to have hypokalemia and hypoglycemia, along with elevated LFTs and lactic acid level.?? He was given IV dextrose, IV magnesium, and IV potassium, along with 1 L bolus LR IV.?? His hypoglycemia has improved, and lactic acid level has declined.?? He was given phenobarbital 260 mg IV for concern of alcohol withdrawal with initial CIWA score??13. ??Most recent CIWA score is 7. Review of Systems Other than those positives as noted in the HPI above, the remaining comprehensive 14-point review of systems is negative. Objective ? Vital Signs?? Temperature: 97.4 DegF (03/28/23 08:22:00) Temperature Route: Oral (03/28/23 08:22:00) Pulse Rate: 88 bpm (03/28/23 17:01:00) Respiratory Rate: 19 br/min (03/28/23 17:01:00) Systolic Blood Pressure:??147 mm Hg??High (03/28/23 17:01:00) Diastolic Blood Pressure: 78 mm Hg (03/28/23 17:01:00) Blood pressure sites: Arm, right (03/28/23 17:01:00) Mean Arterial Pressure: 101 mm Hg (03/28/23 08:22:00) Pulse Pressure: 69 mm Hg (03/28/23 17:01:00) Oxygen Saturation:??93 %??Low (03/28/23 17:01:00) Mode of Delivery (Oxygen): Room air (03/28/23 17:01:00) Early Warning Score: 8 (03/28/23 19:08:31) ? Pain Scores 1 - 10 Pain Scale Score: 3 (00:45) ? Physical Exam General Appearance: Alert, appears stated age, answers questions appropriately HEENT: Normocephalic, atraumatic, PERRL, EOMI, no scleral icterus, no facial droop,??dry mucous membranes, no oropharynx lesions?? Neck: Supple, no JVD, no C-Spine tenderness, no LAD Cardiac: RRR, S1 & S2 present, no m / r / g appreciated Chest: Clear to auscultation bilaterally, no wheezing / ronchi / rales, no tenderness to percussion Abdomen: Soft, minimal tenderness hypogastric region,??no distention, no rebound or guarding, no masses,??hypoactive??bowel sounds Extremities: No clubbing, cyanosis, or edema. ??2+ distal pulses. ??Capillary refill < 3 seconds. ??No calf tenderness or cords Skin: Warm, dry Neuro: ??A & O x 3, CN III-XII intact, strength 5/5 of upper / lower extremities bilaterally, gross sensation intact, no asterixis Psych:?Depressed mood Assessment/Plan Assessment:??58-year-old male with history of depression, polysubstance abuse (previous heroin, opiate dependence on methadone, occasional cocaine use, alcohol, marijuana, and tobacco), HIV disease, prediabetes, COPD, peripheral neuropathy, and chronic low back pain who presented to the emergency department this morning with statements of suicidal ideation and planning to jump off a bridge.??He also reported abdominal discomfort and nausea that had been going on for a few days. This was in the setting of a recent alcohol binge.??He is found to have metabolic derangement??with abnormal LFTs,??and is??clinically in alcohol withdrawal. ?? Abdominal pain (R10.9) Ileus (K56.7):??The patient is afebrile and hemodynamically stable. He is not vomiting and reports normal bowel movements. He does not have peritoneal signs on abdominal exam. Urinalysis is unremarkable. He is noted to have abnormal LFTs likely consistent with his recent alcohol use. CT does not show ascites,??and exam is not consistent with SBP.??CT??does show diffuse distention of the small bowel without transition point, which could be secondary to ileus.??Gastritis??or enteritis??is certainly possible with??recent alcohol binge. No evidence for pancreatitis??with normal lipase. He does have hepatic steatosis. There was also an incidental 3.4 cm lobular hypodense lesion in the left kidney for which renal protocol MRI is recommended as follow-up,??and can be done as outpatient. -Clear liquid diet only as tolerated -IV fluid hydration -Serial abdominal exams -Increase PPI to twice daily dosing -Maalox as needed for indigestion -General surgical consultation if worsening pain or peritoneal signs ?? Hypokalemia (E87.6) Hypoglycemia (E16.2):??Potassium 3.5 and initial glucose 56, likely in the setting of??malnutritionand alcoholic ketosis.??Initial lactic acid level elevated??with dehydration and abnormal LFTs, buthas??declined reassuringly after IV fluid hydration.??No??acidosis at this time with stable renal function. -Change IV fluid to LR at 100 cc/h -We will follow-up stat??metabolic panel??and continue to monitor with supplements as needed -Monitor POC's??and add D5 to IV fluid as needed ?? Abnormal LFTs (R79.89):??I suspect the patient has liver cirrhosis with??a long history of polysubstance abuse.??LFTs are acutely elevated??in the setting of recent alcohol binge.??CT shows hepatic steatosis without biliary obstruction. Given??concurrent HIV, we will check hepatitis B and C profile. Hold Biktarvy pending repeat LFTs in the morning. ?? Abnormal EKG (R94.31):??The patient has nonspecific T wave inversions which could be secondary to hypokalemia and hypoglycemia.??He received magnesium supplementation as well, with level 2.1. He has no chest pain and I have??low suspicion for ACS. Now that he has received??potassium??supplementation,??will repeat EKG.??Monitor QT interval. Check second high-sensitivity troponin value. ?? Alcohol withdrawal (F10.939):??The patient's current CIWA score is 7.?? He is calm without tremor on my evaluation.?? He was given phenobarbital 260 mg in the Emergency room to minimize symptoms and prevent alcohol withdrawal seizures. Presenting with symptoms of withdrawal including increased anxiety and tremors.?? He is??at increased risk due to history of withdrawal and DTs/prior seizure, lab evidence of liver disease, age greater than 30, and concurrent illness. ?? Continue symptom-triggered treatment protocol of alcohol withdrawal syndrome (EB) with benzodiazepines: ?? If CIWA???Ar less than 14 during first 24 hours of EB: Lorazepam 1-2 mg PO/IV every 1 to 2 hours as needed for CIWA???Ar 1-13.?? If unchanged or escalating CIWA-Ar score despite 6 mg of Lorazepam, consider Phenobarbital and contact provider. ?? Monitor for oversedation.?? Continue gabapentin.?? Consider adjunctive medications??such as Clonidine, Haldol,??or Risperdone for anxiety / agitation / autonomic symptoms. ?? Start Thiamine 100 mg orally twice daily, Folic acid 1 mg daily, MVI daily, and Pyridoxine 50 mgdaily. ?? Addiction medicine consultation requested. ?? Suicidal ideation (R45.851) Major depressive disorder (F32.9):??The patient's mood is depressed. He describes life stressors.??He has been on an alcohol binge. He will remain on suicide precautions??with constant sustain engineer. Continue his prescribed home medications including??bupropion,??duloxetine,??gabapentin,??buspirone,??and quetiapine at bedtime. Psychiatry consultation requested??once medically cleared. ?? COPD with emphysema (J43.9):??He does not have current bronchospasm. Pulse oximetry 92 to 93% on room air. Continue Breo Ellipta as prescribed. Albuterol MDI will be ordered as needed. ?? HIV disease (B20):??Hold Biktarvy pending repeat LFTs in the morning. ?? Opiate dependence (F11.20):??The patient states he takes 70 mg methadone daily. The [facility] is closed today; please confirm dose in the morning. The patient received 30 mg of methadone today in the emergency department. ?? VTE Prophylaxis:??Heparin subcu 5000 units 3 times daily. ?VTE Prophylaxis Assessment:??VTE Prophylaxis Ordered ?? Code Status:??FULL. ?Order Code Status:??Code Status Ordered ?? Tobacco Use Treatment:??Smoking??cessation counseling provided. Nicotine patch 21 mg daily. ?Tobacco Use Treatment Provided:??Cessation Medication Ordered ?? Discharge Planning:??Disposition pending; anticipate 2 to 3 days hospitalization. ?? I spent a total of 94 minutes today reviewing the chart / medical records, evaluating the patient, evaluating and interpreting laboratory and imaging data, formulating and discussing the treatment plan, and documenting the encounter. ? Histories Allergies Allergies ?(Active and Proposed Allergies Only) Toradol? (Severity: Unknown severity, Onset: Unknown) ? Past Medical History/Problem List Active Problems??(17) Alcohol use disorder, moderate, dependence Asthma Cannabis abuse Chronic low back pain Cocaine abuse COPD with emphysema DDD (degenerative disc disease) H/O repair of right rotator cuff Heroin overdose HIV HIV disease HLA-B*[id number] positive Hypertension Major depressive disorder Nicotine dependence Opiate dependence Suicidal ideation ? Past Surgical History ORIF - Open reduction and internal fixation right ankle 2016 Bilateral hip arthroplasty (avascular necrosis), 2016, 2021 Right rotator cuff repair 2001 ? Social History Alcohol Details:??Use: Current. ??Frequency: Daily. ??Type: Beer. Substance Abuse Details:??Use:??Current?Type: Cocaine, marijuana.?? Previous heroin. Tobacco Details:??Current every day smoker. The patient lives alone and ambulates independently. HCP:?? His brother, Vandana, [phone]. ? Family History No family history contributory to this admission. ? Medications Home Medications bictegravir/emtricitabine/tenofovir (Biktarvy oral tablet)?1?tab(s)?By Mouth?Daily BuPROpion (buPROPion 150 mg/12 hours (SR) oral tablet, extended release)?1?tab(s)?150?Milligram?By Mouth?2 times a day BusPIRone (busPIRone 10 mg oral tablet)?25?Milligram?2.5?tablet?By Mouth?2 times a day Duloxetine (duloxetine 30 mg oral enteric coated capsule)?1?capsule?30?Milligram?By Mouth?Daily fluticasone-vilanterol (Breo Ellipta 100 mcg-25 mcg/inh inhalation powder)?1?puff(s)?Inhalation?Daily Gabapentin (gabapentin 800 mg oral tablet)?1?tab(s)?800?Milligram?By Mouth?3 times a day Methadone?70?Milligram?By Mouth?Daily Omeprazole (omeprazole 40 mg oral enteric coated capsule)?1?capsule?40?Milligram?By Mouth?Daily Quetiapine (SEROquel 300 mg oral tablet)?1?tab(s)?300?Milligram?By Mouth?Daily atbedtime ? Results Recent Labs BLOOD COUNT & DIFF WBC 12.4 k/mm3 (High)?? 03/28/2023 04:20 RBC 4.48 m/mm3 (Low)?? 03/28/2023 04:20 Hgb 14.1 Gm/dL ()?? 03/28/2023 04:20 Hct 41.1 % ()?? 03/28/2023 04:20 MCV 91.7 femtoliters ()?? 03/28/2023 04:20 MCH 31.5 pg ()?? 03/28/2023 04:20 MCHC 34.3 g/dL ()?? 03/28/2023 04:20 Platelet Count 217 k/mm3 ()?? 03/28/2023 04:20 RDW-SD 45.0 femtoliters ()?? 03/28/2023 04:20 MPV 12.2 femtoliters ()?? 03/28/2023 04:20 Nucleated RBC (Automated) 0.0 #/100 WBC'S ()?? 03/28/2023 04:20 Abs. NRBC 0.0 k/mm3 ()?? 03/28/2023 04:20 Abs. Neut 8.5 k/mm3 (High)?? 03/28/2023 04:20 Abs. Lymph 2.1 k/mm3 ()?? 03/28/2023 04:20 Abs. [place] 1.5 k/mm3 (High)?? 03/28/2023 04:20 Abs. Eo 0.1 k/mm3 ()?? 03/28/2023 04:20 Abs. Baso 0.1 k/mm3 ()?? 03/28/2023 04:20 Neut % 69.0 % ()?? 03/28/2023 04:20 Lymph % 16.8 % ()?? 03/28/2023 04:20 [place] % 11.7 % (High)?? 03/28/2023 04:20 Eos % 0.6 % ()?? 03/28/2023 04:20 Baso % 1.1 % ()?? 03/28/2023 04:20 Imm Gran 0.8 % ()?? 03/28/2023 04:20 Abs. Imm Gran 0.1 k/mm3 ()?? 03/28/2023 04:20 ?? CARDIAC Nt-Probnp 279 pg/mL (High)?? 03/28/2023 04:20 High Sensitivity Troponin (HSTnT) 8 ng/L ()?? 03/28/2023 18:18 ?? CHEM GENERAL Sodium 135 mmol/L ()?? 03/28/2023 18:18 Potassium 4.3 mmol/L ()?? 03/28/2023 18:18 Chloride 98 mmol/L ()?? 03/28/2023 18:18 Bicarbonate Level 27 mmol/L ()?? 03/28/2023 18:18 Anion Gap 10 ()?? 03/28/2023 18:18 Glucose Level 56 mg/dL (Low)?? 03/28/2023 04:20 Glucose, POC 121 mg/dL (High)?? 03/28/2023 16:47 BUN 12 mg/dL ()?? 03/28/2023 04:20 Creatinine-Blood 0.7 mg/dL ()?? 03/28/2023 04:20 Estimated GFR Creatinine 107 ML/MIN/1.73 M2 ()?? 03/28/2023 04:20 Calcium 8.9 mg/dL ()?? 03/28/2023 04:20 Magnesium 2.1 mg/dL ()?? 03/28/2023 04:20 Protein, Total 7.9 Gm/dL ()?? 03/28/2023 04:20 Albumin 4.3 Gm/dL ()?? 03/28/2023 04:20 AG Ratio 1.2 ()?? 03/28/2023 04:20 Alkaline Phosphatase 214 units/L (High)?? 03/28/2023 04:20 Lipase 37 units/L ()?? 03/28/2023 04:20 AST (SGOT) 124 units/L (High)?? 03/28/2023 04:20 ALT (SGPT) 44 units/L (High)?? 03/28/2023 04:20 Bilirubin, Total 1.8 mg/dL (High)?? 03/28/2023 04:20 Lactate 1.5 mmol/L ()?? 03/28/2023 05:54 ?? ENDOCRINE/TUMOR MARKER TSH 1.67 uIU/mL ()?? 03/28/2023 04:20 ?? HEME OTHER Hold Lavender Top SPECIMEN DISCARDED AFTER 24 HOURS. ()?? 03/28/2023 05:54 Hold Blue Top SPECIMEN DISCARDED AFTER 4 HOURS. ()?? 03/28/2023 04:20 ?? MISC. CHEMISTRY Hold Green Top SPECIMEN DISCARDED AFTER 1 WEEK ()?? 03/28/2023 05:54 Hold Gel Top SPECIMEN DISCARDED AFTER 1 WEEK ()?? 03/28/2023 07:55 ?? TOXICOLOGY/TDM Ethanol, Serum or Plasma 38 mg/dL (Abnormal)?? 03/28/2023 04:20 ?? UA/URINALYSIS Appear/Color, Urine YELLOW ()?? 03/28/2023 05:00 Specific [place], Urine 1.019 ()?? 03/28/2023 05:00 pH, Urine 6.0 ()?? 03/28/2023 05:00 Albumin, Urine TRACE (Abnormal)?? 03/28/2023 05:00 Glucose, Urine NEGATIVE ()?? 03/28/2023 05:00 Ketones, Urine 1+ (Abnormal)?? 03/28/2023 05:00 Bilirubin, Urine NEGATIVE ()?? 03/28/2023 05:00 Hemoglobin, Urine NEGATIVE ()?? 03/28/2023 05:00 Nitrite, Urine NEGATIVE ()?? 03/28/2023 05:00 Leukocyte, Urine NEGATIVE ()?? 03/28/2023 05:00 Urobilinogen 4 mg/dL (Abnormal)?? 03/28/2023 05:00 WBC's, Urine 4 /HPF ()?? 03/28/2023 05:00 RBC's, Urine 2 /HPF ()?? 03/28/2023 05:00 Squamous Epith <1 /HPF ()?? 03/28/2023 05:00 Mucus SLIGHT /LPF ()?? 03/28/2023 05:00 Hold Urine Culture Testing available 48 hours from time of collection. ()?? 03/28/2023 05:00 ? Imaging(s) ?CT Head/Brain W/O Contrast ?? 03/28/2023 06:20??by Irais Arnett MD ?IMPRESSION: Study slightly limited by motion artifact especially near the skull base. No definite CT evidence of acute intracranial abnormality. ?Chest 2 Views Frontal and Lat ?? 03/28/2023 06:25??by Tk Lacy MD ?IMPRESSION: No acute abnormality. ?CT Abd/Pelvis W/ IV Contrast Only ?? 03/28/2023 06:20??by Julianne ALBARRAN , Janelle ?Visualized Chest: Mild right basilar atelectasis with possible scarring. No pleural effusion. The heart is normal in size. No pericardial effusion. Diaphragm: Normal. Liver: Diffuse low-attenuation throughout the liver parenchyma consistent with hepatic steatosis. No evidence of mass. Gallbladder: Cholelithiasis with no evidence of acute cholecystitis. Bile ducts: No biliary ductal dilation. Spleen: Normal. Pancreas: Normal. Adrenal glands: Normal. Kidneys and ureters: 0.5 cm nonobstructing stone in the left kidney (image 46 series 201). No hydronephrosis. 3.4 cm lobular hypodense lesion with few hyperdense septae (image 66 series 201). Simple appearing renal cysts are also noted. Bladder: Normal. Reproductive organs: Unremarkable. Stomach, small bowel, and large bowel: Stomach is normal. There is diffuse distention of the small bowel without a definite transition point. The findings could be secondary to an ileus. Large bowel appears normal. Appendix: Normal. Peritoneum and retroperitoneum: No ascites or pneumoperitoneum. No omental or mesenteric lesions. Lymph nodes: No enlarged lymph nodes. Blood vessels: Mild vascular calcifications but no aneurysm. Abdominal and pelvic wall: Unremarkable. Bones: Bilateral hip arthroplasty. ?? IMPRESSION: Indeterminate 3.4 cm lobular hypodense lesion with few hyperdense septae in the left kidney. Renal protocol MRI is recommended for further evaluation. Cholelithiasis with no evidence of acute cholecystitis. Hepatic steatosis. ?Other Image ?EKG: Ventricular Rate: 82 BPM Atrial Rate: 82 BPM P-R Interval: 146 ms QRS Duration: 76 ms Q-T Interval: 382 ms QTC Calculation(Bazett): 446 ms P [place]: 36 degrees R [place]: 59 degrees T [place]: -18 degrees Normal sinus rhythm ? EKG study * Event Display: EKG Authored Date: * Event Display: EKG Authored Date: Hospital Progress note * Daylin Segovia RN: PERFORM, SIGN, VERIFY Event Display: Progress Note Hospital Authored Date: Patient: WILVER DAMIAN Age: 58 years Sex: Male : 1965 Associated Diagnoses: None Author: Daylin Segovia RN Findings Evaluation Assumed care of pt around 0700. Pt A&Ox4. VSS. No complaints of pain. Pt ambualting in room independently. Safety precautions maintaed. . * Monisha ALBARRAN, Josias Mendoza: PERFORM Event Display: Progress Note Hospital Authored Date: Patient: ??WILVER DAMIAN ? Age:??58 Years?Sex:??Male?:??1965?? Subjective ? -Seen and examined at bedside, resting comfortably -In good spirits, nausea vomiting and abdominal pain has resolved -Was evaluated by psychiatry and there is no active suicidal ideation, cleared for discharge by psychiatry -Due to binge drinking prior to admission we will continue to monitor patient, if remains stable into tomorrow we will anticipate discharge home within ?? -MRI to better characterize renal mass complete, awaiting results ? Review of Systems Other than those positives as noted above, the remaining comprehensive 14-point review of systems is negative. Objective Vital Signs?? Temperature: 97.6 DegF (03/30/23 08:00:00) Temperature Route: Oral (03/30/23 08:00:00) Pulse Rate: 72 bpm (03/30/23 08:00:00) Respiratory Rate: 18 br/min (03/30/23 09:25:00) Systolic Blood Pressure:??140 mm Hg??High (03/30/23 08:00:00) Diastolic Blood Pressure:??88 mm Hg??High (03/30/23 08:00:00) Blood pressure sites: Arm, right (03/30/23 08:00:00) Mean Arterial Pressure: 75 mm Hg (03/30/23 03:58:00) Pulse Pressure: 44 mm Hg (03/30/23 03:58:00) Oxygen Saturation: 94 % (03/30/23 08:00:00) Mode of Delivery (Oxygen): Room air (03/30/23 08:00:00) Early Warning Score: 7 (03/30/23 12:26:18) ? Intake/Output? 03/28 09:11 07 07:00 0705 07:00 03/28 07:00 0703 07:00 ?? 03/30 14:09 03/30 14:09 06 06:59 07/05 06:59 0704 06:59 Intake ?395 ?225 ?120 ? 12.5 ? 37.5 Output ?0 ?0 ?0 ?0 ?0 Net Total ?395 ?225 ?120 ? 12.5 ? 37.5 ? Urine Count ?2 ?0 ?2 ?0 ?0 ? Physical Exam Constitutional: Alert, in no acute distress. Mental Status: Oriented to person, place and time. Neck: Supple, Full range of motion. Respiratory: Clear to auscultation and percussion. No wheezing, rales or rhonchi. Cardiovascular: S1 S2 regular. No murmurs, rubs or gallops. Gastrointestinal: Abdomen soft, non-tender, non-distended. Normal bowel sounds. No pulsatile mass. No hepatosplenomegaly. Genitourinary: No costovertebral angle tenderness. Neurologic: Cranial nerves II-XII grossly intact. No focal neurological deficits. Flexor plantar response. Moves all extremities spontaneously. Sensation intact bilaterally. Skin: No rashes or lesions. No petechiae or purpura. Musculoskeletal: No cyanosis or clubbing. No gross deformities. Normal range of motion. ? _ Home Medications bictegravir/emtricitabine/tenofovir (Biktarvy oral tablet)?1?tab(s)?By Mouth?Daily BuPROpion (buPROPion 150 mg/12 hours (SR) oral tablet, extended release)?1?tab(s)?150?Milligram?By Mouth?2 times a day BusPIRone (busPIRone 10 mg oral tablet)?25?Milligram?2.5?tablet?By Mouth?2 times a day Duloxetine (duloxetine 30 mg oral enteric coated capsule)?1?capsule?30?Milligram?By Mouth?Daily fluticasone-vilanterol (Breo Ellipta 100 mcg-25 mcg/inh inhalation powder)?1?puff(s)?Inhalation?Daily Gabapentin (gabapentin 800 mg oral tablet)?1?tab(s)?800?Milligram?By Mouth?3 times a day Methadone?70?Milligram?By Mouth?Daily Omeprazole (omeprazole 40 mg oral enteric coated capsule)?1?capsule?40?Milligram?By Mouth?Daily Quetiapine (SEROquel 300 mg oral tablet)?1?tab(s)?300?Milligram?By Mouth?Daily atbedtime ? Inpatient Medications Medications (35) Active SCHEDULED: (18) Bictegravir/Emtricitabine/Tenofovir 50 mg-200 mg-25 mg Tablet (Biktarvy Tablet) ??1 tablet, By Mouth, Daily Breo Ellipta 100 mcg / 25 mcg Inhaler (Breo Ellipta 100 mcg-25 mcg Inhaler) ??1 puffs, Inhalation, Daily BuPROPion 150 mg SR Tablet (buPROPion 150 mg/12 hours (SR) oral tablet, extended release) ??150 mg,By Mouth, Daily in AM BusPIRone 10 mg Tablet (busPIRone 10 mg oral tablet) ??25 mg, By Mouth, 2 times a day Duloxetine 30 mg Capsule (Duloxetine) ??30 mg, By Mouth, Daily Folic Acid 1 mg Tablet (Folic Acid Tablet) ??1 mg, By Mouth, Daily Gabapentin 400 mg Capsule (gabapentin 400 mg oral capsule) ??800 mg, By Mouth, 3 times a day Heparin 5000 units/mL Inj (1 mL) (Heparin Inj) ??5,000 units 1 mL, Subcutaneous Injection, 3 times a day Insulin Lispro 100 units/mL Inj (3mL) (Insulin LISPRO Sliding Scale) ??2-10 units, Subcutaneous Injection, 3 times a day before meals Methadone 10mg/5mL UD Solution (Methadone Liquid) ??70 mg 35 mL, By Mouth, Daily Multivitamin Tablet ??1 tablet, By Mouth, Daily NaCl 0.9% Flush 3ml (NaCL 0.9% Flush) ??3 mL, IV Push, Every 8 hours Nicotine 21 mg / 24 hour Patch (Nicotine Topical) ??21 mg, Topically, Daily Pantoprazole 40 mg EC Tablet (Protonix 40 mg oral delayed release tablet) ??40 mg, By Mouth, 2 times a day Pyridoxine 50 mg Tablet (Pyridoxine Tablet) ??50 mg, By Mouth, Daily Quetiapine 100 mg Tablet (SEROquel 100 mg oral tablet) ??300 mg, By Mouth, Daily at bedtime Remove Patch (Remove ??Patch) ??1 each, Topically, Daily Thiamine 100 mg Tablet (Thiamine Tablet) ??100 mg, By Mouth, 2 times a day CONTINUOUS: (0) PRN: (17) Acetaminophen 325 mg Tablet (Acetaminophen Tablet) ??650 mg, By Mouth, Every 4 hours Al hydroxide/Mg hydroxide/simethicone 200 mg-200 mg-20 mg/5 mL Susp UD (Maalox Plus Liquid) ??15 mL, By Mouth, 4 times a day Albuterol 90mcg/Inhalation Inhaler HFA (albuterol CFC free 90 mcg/inh inhalation aerosol) ??180 mcg2 puffs, Inhalation, Every 4 hours Dextromethorphan-Guaifenesin 20 mg-200 mg/10 mL Liqu UD (Robitussin DM Liquid) ??10 mL, By Mouth, Every 4 hours Dextrose Inj Syringe (Dextrose 50% Inj Syringe (25Gm)) ??12.5 Gm, IV Push Slowly, Every 20 minutes Dextrose Inj Syringe (Dextrose 50% Inj Syringe (25Gm)) ??25 Gm, IV Push Slowly, Every 15 minutes Glucagon 1 mg Inj (Glucagon Inj) ??1 mg, Intramuscular, Once Glucose 40% Gel (15 Gm) (Glucose Gel) ??15 Gm, By Mouth, Every 20 minutes Glucose 40% Gel (15 Gm) (Glucose Gel) ??30 Gm, By Mouth, Every 20 minutes Lorazepam 1 mg Tablet (Ativan Tablet) ??1 mg, By Mouth, Every 2 hours Lorazepam 2 mg Tablet (Ativan Tablet) ??2 mg, By Mouth, Every 2 hours Lorazepam 2 mg Tablet (LORazepam Tablet) ??2 mg, By Mouth, Every hour Melatonin 3 mg Tablet (Melatonin Tablet) ??3 mg, By Mouth, Daily at bedtime NaCl 0.9% Flush 3ml (NaCL 0.9% Flush) ??3 mL, IV Push, Every 8 hours nalOXONE ??400mcg/mL Inj (nalOXONE Inj) ??0.2 mg 0.5 mL, IV Push, Every 5 minutes Polyethylene Glycol 17 Gm Powder (MiraLax Powder) ??17 Gm 1 pack/packet, By Mouth, Daily Senna 8.6 mg / Docusate 50 mg tablet (Docusate/Senna Tablet) ??1 tablet, By Mouth, 2 times a day ? 72 Hour Antibiotic History Active Antibiotics Calendar Day Last Administered First Administered bictegravir/emtricitabine/tenofovir??1 tablet, By Mouth, Daily ?2 03/30/2023 12:56 03/29/2023 11:25 ? Stopped Antibiotics Stop Date/Time Last Administered First Administered Ceftriaxone??1 Gm, 100 mL/hr, IVPB, Once 03/28/2023 06:02 03/28/2023 05:58 03/28/2023 05:58 ? Results Abnormal Labs No lab data available. ?? Assessment/Plan ?? 58-year-old male with history of depression, polysubstance abuse (previous heroin, opiate dependence on methadone, occasional cocaine use, alcohol, marijuana, and tobacco), HIV disease, prediabetes, COPD, peripheral neuropathy, and chronic low back pain who presented to the emergency department this morning with statements of suicidal ideation and planning to jump off a bridge. He also reported abdominal discomfort and nausea that had been going on for a few days. This was in the setting of a recent alcohol binge. He is found to have metabolic derangement with abnormal LFTs ? Suicidal ideation (R45.851) Major depressive disorder (F32.9): The patient's mood is depressed. He describes life stressors. He will remain on suicide precautions with constant sustain engineer. Continue his prescribed home medications including bupropion, duloxetine, gabapentin, buspirone, and quetiapine at bedtime. psychiatry eval +/- placement ?? -In good spirits, nausea vomiting and abdominal pain has resolved -Was evaluated by psychiatry and there is no active suicidal ideation, cleared for discharge by psychiatry -Due to binge drinking prior to admission we will continue to monitor patient, if remains stable into tomorrow we will anticipate discharge home within ?? -MRI to better characterize renal mass complete, awaiting results ? Abdominal pain (R10.9) Ileus (K56.7): Question of ileus on CT abdo but no vomiting and moving his bowels normally abdo exam is benign Pain resolved, likely alcoholic gastritis ?? Incidental renal lesion MRI pending ? Hypokalemia (E87.6) Hypoglycemia (E16.2): resolved with repletion ? Abnormal LFTs (R79.89): hepatic steatosis on CT also recent alcohol intake Hepatatis labs ordered LFTs downtrending ? Abnormal EKG (R94.31): The patient has nonspecific T wave inversions which could be secondary to hypokalemia and hypoglycemia. He received magnesium supplementation as well, with level 2.1. He has no chest pain troponins flat ? Alcohol use disorder patient states not??drinking very heavily prior to presentation received some phenobarbital in the ED but not scoring??highly on CIWA at present continue prn benzodiazepines thiamine, folic acid, multivitamin ?? Hx of opiate use disorder on methadone 70mg daily dose confirmed by RN - continue ?? Suicidal ideation (R45.851) Major depressive disorder (F32.9): The patient's mood is depressed. He describes life stressors. Hehas been on an alcohol binge. ??He will remain on suicide precautions with constant sustain engineer. ??Continue his prescribed home medications including bupropion, duloxetine, gabapentin, buspirone, and quetiapine at bedtime. Cleared by??psych ? 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 Pulse oximetry 92 to 93% on room air. Continue Breo Ellipta as prescribed. Albuterol MDI will be ordered as needed. ? HIV disease (B20):??resume Biktarvy ? VTE Prophylaxis: Heparin subcu 5000 units 3 times daily. ? VTE Prophylaxis Assessment: VTE Prophylaxis Ordered ? Code Status: FULL. ?? OMN: DC home tomorrow * Levon ALBARRAN, Víctor Ly: PERFORM Event Display: Progress Note Hospital Authored Date: [id number] Patient: ??WILVER DAMIAN ? Age:??58 Years?Sex:??Male?:??1965?? Subjective Hx noted patient reports having ongoing suicidal ideation precipitated by a number of life events reports that he has not been drinking much. states that he had a 12 pack of beer over 2 days denies abdo pain or vomiting has been moving his bowels wants to try eating solid food Review of Systems ?Constitutional: no fevers/chills ?Eyes: no pain, no vision changes ?ENT: no ear pain, no change in hearing ?Cardiovasc: no chest pain, no palpitations, no PND, no orthopnoea ?Resp: no cough, no sputum, no haemoptysis, no dyspnoea ? Objective ? Vital Signs?? Temperature: 98.2 DegF (03/29/23 06:18:00) Temperature Route: Oral (03/29/23 06:18:00) Pulse Rate: 86 bpm (03/29/23 06:18:00) Respiratory Rate: 18 br/min (03/29/23 09:50:00) Systolic Blood Pressure:??154 mm Hg??High (03/29/23 06:18:00) Diastolic Blood Pressure:??91 mm Hg??High (03/29/23 06:18:00) Blood pressure sites: Arm, right (03/29/23 06:18:00) Pulse Pressure: 63 mm Hg (03/29/23 06:18:00) Oxygen Saturation:??93 %??Low (03/29/23 06:18:00) Mode of Delivery (Oxygen): Room air (03/29/23 06:18:00) Early Warning Score: 5 (03/29/23 10:38:06) ? Intake/Output? 03/28 09:11 03/29 07:00 03/28 07:00 03/27 07:00 03/26 07:00 ?? 03/29 11:24 03/29 11:24 03/29 06:59 03/28 06:59 03/27 06:59 Intake ? 50 ?0 ? 12.5 ? 37.5 ?0 Output ?0 ?0 ?0 ?0 ?0 Net Total ? 50 ?0 ? 12.5 ? 37.5 ?0 ? Physical Exam Gen: comfortable, well: HEENT: normocephalic, atraumatic Chest: CTA, no wheeze/crackles CVS: no M/G/R, no JVD Abdo: soft, non-tender. normal bowel sounds Ext: no oedema, no cyanosis or clubbing Vasc: pulses symmetric Neuro: A+Ox3. no tremor Psych: WNL _ 72 Hour Antibiotic History Stopped Antibiotics Stop Date/Time Last Administered First Administered Ceftriaxone??1 Gm, 100 mL/hr, IVPB, Once 03/28/2023 06:02 03/28/2023 05:58 03/28/2023 05:58 ? Assessment/Plan Assessment:??58-year-old male with history of depression, polysubstance abuse (previous heroin, opiate dependence on methadone, occasional cocaine use, alcohol, marijuana, and tobacco), HIV disease, prediabetes, COPD, peripheral neuropathy, and chronic low back pain who presented to the emergency department this morning with statements of suicidal ideation and planning to jump off a bridge. He also reported abdominal discomfort and nausea that had been going on for a few days. This was in the setting of a recent alcohol binge. He is found to have metabolic derangement with abnormal LFTs ? Suicidal ideation (R45.851) Major depressive disorder (F32.9): The patient's mood is depressed. He describes life stressors. He will remain on suicide precautions with constant sustain engineer. Continue his prescribed home medications including bupropion, duloxetine, gabapentin, buspirone, and quetiapine at bedtime. psychiatry eval +/- placement ?? Abdominal pain (R10.9) Ileus (K56.7): Question of ileus on CT abdo but no vomiting and moving his bowels normally abdo exam is benign will advance diet to regular continue PPI ?? Incidental renal lesion needs MRI for further characterization will order inpatient but can be deferred to outpatient if patient has psychiatry bed in the meantime ? Hypokalemia (E87.6) Hypoglycemia (E16.2): resolved with repletion ? Abnormal LFTs (R79.89): hepatic steatosis on CT also recent alcohol intake Hepatatis labs ordered LFTs downtrending ? Abnormal EKG (R94.31): The patient has nonspecific T wave inversions which could be secondary to hypokalemia and hypoglycemia. He received magnesium supplementation as well, with level 2.1. He has no chest pain troponins flat ? Alcohol use disorder patient states not??drinking very heavily prior to presentation received some phenobarbital in the ED but not scoring??highly on CIWA at present continue prn benzodiazepines thiamine, folic acid, multivitamin ?? Hx of opiate use disorder on methadone 70mg daily dose confirmed by RN - continue ?? Suicidal ideation (R45.851) Major depressive disorder (F32.9): The patient's mood is depressed. He describes life stressors. Hehas been on an alcohol binge. ??He will remain on suicide precautions with constant sustain engineer. ??Continue his prescribed home medications including bupropion, duloxetine, gabapentin, buspirone, and quetiapine at bedtime. ??Psychiatry consultation requested once medically cleared. ? 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 Pulse oximetry 92 to 93% on room air. Continue Breo Ellipta as prescribed. Albuterol MDI will be ordered as needed. ? HIV disease (B20):??resume Biktarvy ? VTE Prophylaxis: Heparin subcu 5000 units 3 times daily. ? VTE Prophylaxis Assessment: VTE Prophylaxis Ordered ? Code Status: FULL. ? Order Code Status: Code Status Ordered ? Tobacco Use Treatment: Smoking cessation counseling provided. ??Nicotine patch 21 mg daily. ? Tobacco Use Treatment Provided: Cessation Medication Ordered ? OMN: psychiatry eval +/- placement ? Consult note * Saba ANDINO, June Savage: PERFORM Event Display: Consultation Note Authored Date: [id number] Patient: ??WILVER DAMIAN ? Age:??58 Years?Sex:??Male?:??1965?? Reason for Consultation Addiction Med Consult - ETOH, OUD Hx Requested by??Dr Desuoza History of Present Illness Wilver Damian is a 58 yo male with a PMHx of heroin/cocaine/ETOH/marijuana use, HIV, prediabetes, COPD, peripheral neuropathy and low back pain. He was admitted 03/28 after presenting with SI w/ plan tojump off a bridge, and recent ETOH relapse due to stress. Did endorse possible recent use of cocaine x1. He was assessed by psychiatry this morning and does not require IPLOC at this time. Pt is on aCIWA with PRN ativan available, so far received one dose of 1mg today. ?? Met with pt this morning while he was in the ED waiting for a bed on the medical floors. He reports that he has been going to [facility] on , and has been on methadone 70mg daily. He has been on this dose for about a year now, and actually has been discussing coming off of it with his clinic. He does not request any adjustments to his dose while here, up or down. Pt states he has not used any recreational opiates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 mmol/L 03/29/23 08:14:00 Potassium 4.3 mmol/L 3.6 mmol/L - 5.2 mmol/L 03/28/23 18:18:00 Chloride 100 mmol/L 98 mmol/L - 107 mmol/L 03/29/23 08:14:00 Chloride 98 mmol/L 98 mmol/L - 107 mmol/L 03/28/23 18:18:00 Bicarbonate Level 24 mmol/L 22 mmol/L - 29 mmol/L 03/29/23 08:14:00 Bicarbonate Level 27 mmol/L 22 mmol/L - 29 mmol/L 03/28/23 18:18:00 Anion Gap 12 4 ??- 17 03/29/23 08:14:00 Anion Gap 10 4 ??- 17 03/28/23 18:18:00 Glucose Level 103 mg/dL??High 70 mg/dL - 99 mg/dL 03/29/23 08:14:00 Glucose, POC 87 mg/dL 70 mg/dL - 99 mg/dL 03/29/23 06:57:00 Glucose, POC 121 mg/dL??High 70 mg/dL - 99 mg/dL 03/28/23 16:47:00 BUN 11 mg/dL 6 mg/dL - 20 mg/dL 03/29/23 08:14:00 Creatinine-Blood 0.7 mg/dL 0.7 mg/dL - 1.2 mg/dL 03/29/23 08:14:00 Estimated GFR Creatinine 110 ML/MIN/1.73 M2 ?? 03/29/23 08:14:00 Calcium 8.3 mg/dL??Low 8.6 mg/dL - 10.5 mg/dL 03/29/23 08:14:00 Phosphorus 2.8 mg/dL 2.5 mg/dL - 4.5 mg/dL 03/29/23 08:14:00 Magnesium 2 mg/dL 1.6 mg/dL - 2.3 mg/dL 03/29/23 08:14:00 Protein, Total 6.6 Gm/dL 6.2 Gm/dL - 8.2 Gm/dL 03/29/23 08:14:00 Albumin 3.4 Gm/dL 3.4 Gm/dL - 4.8 Gm/dL 03/29/23 08:14:00 AG Ratio 1.1 ?? 03/29/23 08:14:00 Alkaline Phosphatase 181 units/L??High 40 units/L - 129 units/L 03/29/23 08:14:00 AST (SGOT) 84 units/L??High 0 units/L - 40 units/L 03/29/23 08:14:00 ALT (SGPT) 37 units/L 0 units/L - 41 units/L 03/29/23 08:14:00 Bilirubin, Total 1.8 mg/dL??High 0 mg/dL - 1.2 mg/dL 03/29/23 08:14:00 High Sensitivity Troponin (HSTnT) 8 ng/L ?? 03/28/23 18:18:00 COVID-19 by RT-PCR NEGATIVE ?? 03/28/23 21:59:00 ? Note * Debbie Haq RN: PERFORM Event Display: Discharge/Transfer Note Hospital Authored Date: [id number] Nursing Discharge Note Entered On: 03/31/2023 7:11 EDT Performed On: 03/31/2023 7:10 EDT by Debbie Haq RN Nursing Discharge Note 2 Discharge Time : 03/31/2023 10:10 EDT Debbie Haq RN - 03/31/2023 18:01 EDT Discharge Level of Care at Discharge : Home/Care Home/Foster Care Patient Left Unit Via : Wheelchair Patient Accompanied Off Unit with : Responsible adult, Other: STAFF DC Instructions Provided & Signed by Pt : Yes Patient Understands D/C Instructions : Yes Patient Instructions Discharge Signed : Yes Did Pt have Specialty Bed or Wound Vac : No Debbie Haq RN - 03/31/2023 7:10 EDT * Monisha ALBARRAN, Josias Mendoza: PERFORM Event Display: Discharge/Transfer Note Hospital Authored Date: [id number] Patient: ??WILVER DAMIAN ? Age:??58 Years?Sex:??Male?:??1965?? 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 _ Discharge Medications bictegravir/emtricitabine/tenofovir (Biktarvy oral tablet)?1?tab(s)?By Mouth?Daily BuPROpion (buPROPion 150 mg/24 hours (XL) oral tablet, extended release)?1?tab(s)?150?Milligram?By Mouth?Daily in AM BusPIRone (busPIRone 10 mg oral tablet)?25?Milligram?2.5?tablet?By Mouth?2 times a day Duloxetine (duloxetine 30 mg oral enteric coated capsule)?1?capsule?30?Milligram?By Mouth?Daily fluticasone-vilanterol (Breo Ellipta 100 mcg-25 mcg/inh inhalation powder)?1?puff(s)?Inhalation?Daily Gabapentin (gabapentin 800 mg oral tablet)?1?tab(s)?800?Milligram?By Mouth?3 times a day Methadone?70?Milligram?By Mouth?Daily Omeprazole (omeprazole 40 mg oral enteric coated capsule)?1?capsule?40?Milligram?By Mouth?Daily Quetiapine (SEROquel 300 mg oral tablet)?1?tab(s)?300?Milligram?By Mouth?Daily atbedtime ? PCP Follow-Up/Heads-Up ?? -Incidental renal complex cyst and pancreatic cyst findings which will need 1 year repeat ultrasound and repeat MRI, please ensure this is done -Please ensure patient follows regularly with his psychiatrist Hospital Course ?? 58-year-old male with history of depression, polysubstance abuse (previous heroin, opiate dependence on methadone, occasional cocaine use, alcohol, marijuana, and tobacco), HIV disease, prediabetes, COPD, peripheral neuropathy, and chronic low back pain who presented to the emergency department this morning with statements of suicidal ideation and planning to jump off a bridge. He also reported abdominal discomfort and nausea that had been going on for a few days. This was in the setting of a recent alcohol binge. He is found to have metabolic derangement with abnormal LFTs. ??Metabolic derangements resolved.?? No signs of alcohol withdrawal since it was only a short alcohol binge.?? Evaluated by psychiatry with no??need for??inpatient intervention and was cleared for discharge with some minor medication changes. ??Discharged in stable condition ? Suicidal ideation (R45.851) Major depressive disorder (F32.9): The patient's mood is depressed. He describes life stressors. Hehas been on an alcohol binge. ??Continue his prescribed home medications including bupropion, duloxetine, gabapentin, buspirone, and quetiapine at bedtime. Cleared by??psych??for discharge with no safety concerns Bupropion was switched to once in the morning 150 Mg XL extended release ? Abdominal pain (R10.9) Ileus (K56.7): Pain resolved, likely alcoholic gastritis ?? Incidental renal lesion MRI shows complex cyst, needs 1 year ultrasound follow-up ? Hypokalemia (E87.6) Hypoglycemia (E16.2): resolved with repletion ? Abnormal LFTs (R79.89): hepatic steatosis on CT also recent alcohol intake LFTs downtrending ? Abnormal EKG (R94.31): The patient has nonspecific T wave inversions which could be secondary to hypokalemia and hypoglycemia. He received magnesium supplementation as well, with level 2.1. He has no chest pain troponins flat ? Alcohol use disorder patient states not??drinking very heavily prior to presentation received some phenobarbital in the ED but no further signs of withdrawal ?? Hx of opiate use disorder on methadone 70mg daily dose confirmed by RN - continue Last dose was 03/31/2020 ? 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 Pulse oximetry 92 to 93% on room air. Continue Breo Ellipta as prescribed. ? HIV disease (B20):??Biktarvy ? Objective ? Vital Signs?? Temperature: 97.5 DegF (03/31/23 04:00:00) Temperature Route: Oral (03/31/23 04:00:00) Pulse Rate: 66 bpm (03/31/23 04:00:00) Respiratory Rate: 17 br/min (03/31/23 04:00:00) Systolic Blood Pressure:??144 mm Hg??High (03/31/23 04:00:00) Diastolic Blood Pressure: 72 mm Hg (03/31/23 04:00:00) Blood pressure sites: Arm, right (03/31/23 04:00:00) Oxygen Saturation: 95 % (03/31/23 04:00:00) Mode of Delivery (Oxygen): Room air (03/31/23 04:00:00) Early Warning Score: 7 (03/31/23 04:39:28) ? . Physical Exam ?? Constitutional: Alert, in no acute distress. Mental Status: Oriented to person, place and time. Neck: Supple, Full range of motion. Respiratory: Clear to auscultation and percussion. No wheezing, rales or rhonchi. Cardiovascular: S1 S2 regular. No murmurs, rubs or gallops. Gastrointestinal: Abdomen soft, non-tender, non-distended. Normal bowel sounds. No pulsatile mass. No hepatosplenomegaly. Genitourinary: No costovertebral angle tenderness. Neurologic: Cranial nerves II-XII grossly intact. No focal neurological deficits. Flexor plantar response. Moves all extremities spontaneously. Sensation intact bilaterally. Skin: No rashes or lesions. No petechiae or purpura. Musculoskeletal: No cyanosis or clubbing. No gross deformities. Normal range of motion. ? Pending Results Blood Culture ordered on 03/28/2023 Blood Culture #2 ordered on 03/28/2023 Hepatitis B Core Ab ordered on 03/29/2023 Hepatitis B Surface Antigen ordered on 03/29/2023 Hepatitis C Ab ordered on 03/29/2023 Follow-Up Appointments Added Follow Up ?Time Frame ?Comments Shayy Nielson NP?Within two weeks Patient Instructions ? -You were admitted to the hospital due to binge alcohol drinking and intoxication,??this was to review of systems in your??electrolytes remain normal??with no signs of withdrawal - You also had low mood/thoughts of harming yourself and the psychiatry team saw you and made some medication adjustments, your bupropion will be now once a day??extended release -The psychiatry doctors had no other concerns and cleared you for discharge, please follow-up with your??outpatient psychiatrist and primary care physician Post Discharge Care Diet: Regular Diet Code Status: ?? Full Resuscitation Condition: Stable Prognosis: Fair Discharge ?03/31/23 7:00:00 EDT Discharge Prescriptions ?ePrescribed, ??03/31/23 7:01:00 EDT Home Health Face to Face ^HomeHealthFTF Results Discharge Labs BLOOD COUNT & DIFF WBC 8.2 k/mm3 ()?? 03/29/2023 08:13 RBC 4.35 m/mm3 (Low)?? 03/29/2023 08:13 Hgb 13.9 Gm/dL ()?? 03/29/2023 08:13 Hct 40.4 % (Low)?? 03/29/2023 08:13 MCV 92.9 femtoliters ()?? 03/29/2023 08:13 MCH 32.0 pg ()?? 03/29/2023 08:13 MCHC 34.4 g/dL ()?? 03/29/2023 08:13 Platelet Count 165 k/mm3 ()?? 03/29/2023 08:13 RDW-SD 45.1 femtoliters ()?? 03/29/2023 08:13 MPV 11.8 femtoliters ()?? 03/29/2023 08:13 Nucleated RBC (Automated) 0.0 #/100 WBC'S ()?? 03/29/2023 08:13 Abs. NRBC 0.0 k/mm3 ()?? 03/29/2023 08:13 Abs. Neut 5.0 k/mm3 ()?? 03/29/2023 08:13 Abs. Lymph 1.8 k/mm3 ()?? 03/29/2023 08:13 Abs. [place] 1.0 k/mm3 ()?? 03/29/2023 08:13 Abs. Eo 0.2 k/mm3 ()?? 03/29/2023 08:13 Abs. Baso 0.1 k/mm3 ()?? 03/29/2023 08:13 Neut % 61.0 % ()?? 03/29/2023 08:13 Lymph % 22.0 % ()?? 03/29/2023 08:13 [place] % 12.0 % (High)?? 03/29/2023 08:13 Eos % 2.8 % ()?? 03/29/2023 08:13 Baso % 1.5 % ()?? 03/29/2023 08:13 Imm Gran 0.7 % ()?? 03/29/2023 08:13 Abs. Imm Gran 0.1 k/mm3 ()?? 03/29/2023 08:13 ?? CARDIAC Nt-Probnp 279 pg/mL (High)?? 03/28/2023 04:20 High Sensitivity Troponin (HSTnT) 8 ng/L ()?? 03/28/2023 18:18 ?? CHEM GENERAL Sodium 136 mmol/L ()?? 03/29/2023 08:14 Potassium 3.7 mmol/L ()?? 03/29/2023 08:14 Chloride 100 mmol/L ()?? 03/29/2023 08:14 Bicarbonate Level 24 mmol/L ()?? 03/29/2023 08:14 Anion Gap 12 ()?? 03/29/2023 08:14 Glucose Level 103 mg/dL (High)?? 03/29/2023 08:14 Glucose, POC 120 mg/dL (High)?? 03/30/2023 20:32 BUN 11 mg/dL ()?? 03/29/2023 08:14 Creatinine-Blood 0.7 mg/dL ()?? 03/29/2023 08:14 Estimated GFR Creatinine 110 ML/MIN/1.73 M2 ()?? 03/29/2023 08:14 Calcium 8.3 mg/dL (Low)?? 03/29/2023 08:14 Phosphorus 2.8 mg/dL ()?? 03/29/2023 08:14 Magnesium 2.0 mg/dL ()?? 03/29/2023 08:14 Protein, Total 6.6 Gm/dL ()?? 03/29/2023 08:14 Albumin 3.4 Gm/dL ()?? 03/29/2023 08:14 AG Ratio 1.1 ()?? 03/29/2023 08:14 Alkaline Phosphatase 181 units/L (High)?? 03/29/2023 08:14 Lipase 37 units/L ()?? 03/28/2023 04:20 AST (SGOT) 84 units/L (High)?? 03/29/2023 08:14 ALT (SGPT) 37 units/L ()?? 03/29/2023 08:14 Bilirubin, Total 1.8 mg/dL (High)?? 03/29/2023 08:14 Lactate 1.5 mmol/L ()?? 03/28/2023 05:54 ?? COAG INR 1.1 ()?? 03/29/2023 08:13 Protime (PT) 11.8 seconds (High)?? 03/29/2023 08:13 ?? ENDOCRINE/TUMOR MARKER TSH 1.67 uIU/mL ()?? 03/28/2023 04:20 ? HEME OTHER Hold Lavender Top SPECIMEN DISCARDED AFTER 24 HOURS. ()?? 03/28/2023 05:54 Hold Blue Top SPECIMEN DISCARDED AFTER 4 HOURS. ()?? 03/28/2023 04:20 ?? MISC. CHEMISTRY Hold Green Top SPECIMEN DISCARDED AFTER 1 WEEK ()?? 03/28/2023 05:54 Hold Gel Top SPECIMEN DISCARDED AFTER 1 WEEK ()?? 03/28/2023 07:55 ?? TOXICOLOGY/TDM Ethanol, Serum or Plasma 38 mg/dL (Abnormal)?? 03/28/2023 04:20 ? UA/URINALYSIS Appear/Color, Urine YELLOW ()?? 03/28/2023 05:00 Specific [place], Urine 1.019 ()?? 03/28/2023 05:00 pH, Urine 6.0 ()?? 03/28/2023 05:00 Albumin, Urine TRACE (Abnormal)?? 03/28/2023 05:00 Glucose, Urine NEGATIVE ()?? 03/28/2023 05:00 Ketones, Urine 1+ (Abnormal)?? 03/28/2023 05:00 Bilirubin, Urine NEGATIVE ()?? 03/28/2023 05:00 Hemoglobin, Urine NEGATIVE ()?? 03/28/2023 05:00 Nitrite, Urine NEGATIVE ()?? 03/28/2023 05:00 Leukocyte, Urine NEGATIVE ()?? 03/28/2023 05:00 Urobilinogen 4 mg/dL (Abnormal)?? 03/28/2023 05:00 WBC's, Urine 4 /HPF ()?? 03/28/2023 05:00 RBC's, Urine 2 /HPF ()?? 03/28/2023 05:00 Squamous Epith <1 /HPF ()?? 03/28/2023 05:00 Mucus SLIGHT /LPF ()?? 03/28/2023 05:00 Hold Urine Culture Testing available 48 hours from time of collection. ()?? 03/28/2023 05:00 ?? VIROLOGY COVID-19 by RT-PCR NEGATIVE ()?? 03/28/2023 21:59 COVID-19 PCR Specimen Source NASAL ()?? 03/28/2023 05:00 COVID-19 PCR Result NEGATIVE ()?? 03/28/2023 05:00 ? Microbiology ?? COVID-19 (2019 Novel Coronavirus) PCR?? Completed?? Source: Nasopharyngeal Swab Body Site: Nasopharyngeal Collected Dt/Tm: 03/28/2023 05:02 Last Updated Dt/Tm: 03/29/2023 06:10 COVID-19 (Novel Coronavirus), Rapid PCR?? Completed?? Source: Nasal Body Site: Nose Collected Dt/Tm: 03/28/2023 21:40 Last Updated Dt/Tm: 03/28/2023 23:10 ? Imaging(s) ?CT Head/Brain W/O Contrast ?? 03/28/2023 06:20??by Irais Arnett MD ?IMPRESSION: Study slightly limited by motion artifact especially near the skull base. No definite CT evidence of acute intracranial abnormality. ?MRI Abdomen W+W/O Contrast ?? 03/30/2023 02:30??by Yong Joshua MD ?4.3 cm minimally complex cyst in the lower pole of the left kidney, with multiple thin septations, Bosniak IIF. Recommend follow-up in one year with renal ultrasound to assess for stability. ?? Cystic lesions seen in the body and tail of the pancreas measuring up to 5 mm. Differential diagnosis includes non-neoplastic cysts, ectatic branch ducts, and low-grade neoplasms such as side-branch intraductal papillary mucinous neoplasms. A follow-up MRI pancreas is suggested in one year, per ACRwhite paper recommendations for management of incidental pancreatic cysts (JACR 2017;14:911- 923). To decrease cost and shorten scan time for the patient, this follow-up MRI could be performed withoutIV contrast. ?Chest 2 Views Frontal and Lat ?? 03/28/2023 06:25??by Regino ALBARRAN, Devrim ?IMPRESSION: No acute abnormality. ?CT Abd/Pelvis W/ IV Contrast Only ?? 03/28/2023 06:20??by Janelle Whitaker MD M ?Visualized Chest: Mild right basilar atelectasis with possible scarring. No pleural effusion. The heart is normal in size. No pericardial effusion. Diaphragm: Normal. Liver: Diffuse low-attenuation throughout the liver parenchyma consistent with hepatic steatosis. No evidence of mass. Gallbladder: Cholelithiasis with no evidence of acute cholecystitis. Bile ducts: No biliary ductal dilation. Spleen: Normal. Pancreas: Normal. Adrenal glands: Normal. Kidneys and ureters: 0.5 cm nonobstructing stone in the left kidney (image 46 series 201). No hydronephrosis. 3.4 cm lobular hypodense lesion with few hyperdense septae (image 66 series 201). Simple appearing renal cysts are also noted. Bladder: Normal. Reproductive organs: Unremarkable. Stomach, small bowel, and large bowel: Stomach is normal. There is diffuse distention of the small bowel without a definite transition point. The findings could be secondary to an ileus. Large bowel appears normal. Appendix: Normal. Peritoneum and retroperitoneum: No ascites or pneumoperitoneum. No omental or mesenteric lesions. Lymph nodes: No enlarged lymph nodes. Blood vessels: Mild vascular calcifications but no aneurysm. Abdominal and pelvic wall: Unremarkable. Bones: Bilateral hip arthroplasty. ?? IMPRESSION: Indeterminate 3.4 cm lobular hypodense lesion with few hyperdense septae in the left kidney. Renal protocol MRI is recommended for further evaluation. Cholelithiasis with no evidence of acute cholecystitis. Hepatic steatosis. ? Consults(s) ?Consultation Note ?? 03/29/2023 13:01??by Nichole García MD ?Psych evaL: ?? - No acute safety concerns. The patient does not require 1:1 or psychiatric admission currently. ??- Switch Wellbutrin to 150mg XL once in the morning to aid with medication adherence. Otherwise continue current medications, as well as counseling regarding medication adherence including dosage and timing ??- We recommend that the patient follows up with his outpatient primary care provider, as well as consider meeting with a psychiatrist for med management and a therapist for counseling/coping with grief. Resources provided in discharge paperwork ??-Patient might also consider intensive rehabilitation program to help with substance use disorders, which are compounding his preexisting psychiatric diagnoses however patient at this time deferred ? 39_ minutes spent on discharge * Debbie Haq RN: PERFORM Event Display: Patient Education/Instruction Authored Date: [id number] Inpatient Adult Discharge Instructions [address] [address] Name: WILVER DAMIAN : 1965 Visit: 03/28/2023 09:11:00 Current Date: 03/31/2023 07:11 Account: [id number] Inpatient Adult Discharge Instructions We would like to thank you for allowing us to assist you with your healthcare needs. The following includes patient education materials and information regarding your injury/illness. Our entire staffstrives to provide an excellent experience for our patients and their families. PLEASE ENSURE YOU FOLLOW-UP PER THE INSTRUCTIONS BELOW! ?? YOUR OPINION IS IMPORTANT TO US! Please complete the survey you may receive by mail or email. Your feedback will be used to make improvements to the healthcare experiences of our patients and their families. Surveys are administered by [employer] ?? If further treatment with your primary care physician or another doctor is recommended, it is important for you to keep the appointment. Call your primary care physician or return to the Emergency Department immediately if your condition worsens, fails to improve, or new symptoms develop. If you need to find a doctor, you can call [facility] [email or web address] Link for a referral at [phone] or toll free at [phone] or log in to [email or web address].. ?? You can view and manage your care through the patient portal or by using a health care nba of your choosing. [employer] is a website that allows you to securely view your medical information including your hospital discharge summary, office visit summaries, medications and follow-up visits. You can also request appointments, renew medications, and request access to your medical information using a health care nba of your choosing, or just ask a question. You can enroll at [email or web address] or register during your next office visit. You have been discharged from [facility], Patient Care Unit: W4. If you have any questions regarding these instructions after you leave, please call us and we will be happy to assist you. [facility] Your Care Team Attending Physician Josias Bearedn MD Consulting Providers Nichole García MD Discharging Providers Josias Bearden MD Reason for Admission SI with plan to jump off bridge, abd pain, ETOH intox Your Diagnosis Abdominal pain Suicidal ideation Hypokalemia Abnormal EKG COPD with emphysema HIV disease Major depressive disorder Opiate dependence Alcohol withdrawal Hypoglycemia Abnormal LFTs Ileus Tobacco dependence Tests Performed Below is a partial list of the tests performed during your hospitalization. You may have had other tests and procedures not included in this list. Please discuss all test results with your provider. Alcohol Level CBC w/ Differential Comprehensive Metabolic Panel COVID-19 (2019 Novel Coronavirus) PCR COVID-19 (Novel Coronavirus), Rapid PCR GLUCOSE POC High??Sensitivity??Troponin T HOLD BLUE TUBE HOLD GEL TUBE HOLD GREEN TUBE HOLD LAVENDER TUBE INR Lactate Level Lipase Lytes Magnesium Level Phosphorus Level ProBNP Troponin T, High Sensitivity TSH with T4 Reflex (Adults Only) Urinalysis w/hold for Urine Culture CT Abd/Pelvis W/ IV Contrast Only CT Head/Brain W/O Contrast MRI Abdomen W+W/O Contrast XR Chest 2 Views Frontal and Lat Primary Care Provider Naga KOHLER, Shayy Barnes Advance Directive Health Care Proxy on File Yes - Health Care Proxy Discharge Vitals Temperature: 97.5 DegF Pulse Rate: 66 bpm Respiratory Rate: 17 br/min Systolic Blood Pressure:??144 mm Hg??High Diastolic Blood Pressure: 72 mm Hg Oxygen Saturation: 95 % Studies Pending All tests and labs ordered during this hospital stay have been completed unless listed below. Please discuss all pending results with your provider listed above in these instructions. ?? Blood Culture Blood Culture #2 Hepatitis B Core Ab Hepatitis B Surface Antigen Hepatitis C Ab What to do next Instructions From Your Doctor ? -You were admitted to the hospital due to binge alcohol drinking and intoxication,??this was to review of systems in your??electrolytes remain normal??with no signs of withdrawal - You also had low mood/thoughts of harming yourself and the psychiatry team saw you and made some medication adjustments, your bupropion will be now once a day??extended release -The psychiatry doctors had no other concerns and cleared you for discharge, please follow-up with your??outpatient psychiatrist and primary care physician Discharge Orders Diet:??Regular Diet Code Status:?? Full Resuscitation Condition:??Stable Prognosis:??Fair You Need to Schedule the Following Appointments Follow Up with??Naga KOHLER, Shayy Barnes When:??Within Within two weeks Where: [address], [place] [address]- Discharge Medications WILVER DAMIAN :1965 Visit Date:03/28/2023 Medications: Please continue your medications until treatment is completed or stopped by your provider. Medications not listed below should be discontinued. Discuss any questions related to medications with your provider. What How Much When Instructions Next Dose Changed BuPROpion (buPROPion 150 mg/ 24 hours (XL) oral tablet, extended release) 1 tab(s) Oral Daily in the morning Pickup at [facility] 3 04/01 Unchanged bictegravir/ emtricitabine/ tenofovir (Biktarvy oral tablet) 1 tab(s) Oral Daily 04/01 Unchanged BusPIRone (busPIRone 10 mg oral tablet) 2.5 tab(s) Oral Twice a day 9pm 03/31 Unchanged Duloxetine (duloxetine 30 mg oral enteric coated capsule) 1 capsule Oral Daily 04/01 Unchanged fluticasone-vilanterol (Breo Ellipta 100 mcg-25 mcg/ inh inhalation powder) 1 puff(s) Inhalation Daily 04/01 Unchanged Gabapentin (gabapentin 800 mg oral tablet) 1 tab(s) Oral 3 times a day 3pm 03/31 Unchanged Methadone 70 Milligram Oral Daily 04/01 Unchanged Omeprazole (omeprazole 40 mg oral enteric coated capsule) 1 capsule Oral Daily 04/01 Unchanged Quetiapine (SEROquel 300 mg oral tablet) 1 tab(s) Oral Daily at Bedtime 9pm 03/31 Pharmacy Information [facility]: [address], [place] [id number] [phone] Test Results Below is a partial list of the most recent Laboratory test results done prior to this discharge. You may have had other tests and procedures not included in this list. Please discuss all test resultswith your provider. Alcohol Level (03/28/2023) ???Ethanol, Serum or Plasma - 38 mg/dL CBC w/ Differential (03/29/2023) ???WBC - 8.2 k/mm3???RBC - 4.35 m/mm3???Hgb - 13.9 Gm/dL???Hct - 40.4 %???MCV - 92.9 femtoliters???MCH - 32.0 pg???MCHC - 34.4 g/dL???Platelet Count - 165 k/mm3???RDW-SD - 45.1 femtoliters???MPV - 11.8 femtoliters???Nucleated RBC (Automated) - 0.0 #/100 WBC'S???Abs. NRBC - 0.0 k/mm3???Abs. Neut - 5.0 k/mm3???Abs. Lymph - 1.8 k/mm3???Abs. [place] - 1.0 k/mm3???Abs. Eo - 0.2 k/mm3???Abs. Baso - 0.1 k/mm3???Neut % - 61.0 %???Lymph % - 22.0 %???Lincoln % - 12.0 %???Eos % - 2.8 %???Baso % - 1.5 %???Imm Gran - 0.7 %???Abs. Imm Gran - 0.1 k/mm3 Comprehensive Metabolic Panel (03/29/2023) ???Sodium - 136 mmol/L???Potassium - 3.7 mmol/L???Chloride - 100 mmol/L???Bicarbonate Level - 24 mmol/L???Anion Gap - 12???Glucose Level - 103 mg/dL???BUN - 11 mg/dL???Creatinine-Blood - 0.7 mg/dL???Estimated GFR Creatinine - 110 ML/MIN/1.73 M2???Calcium - 8.3 mg/dL???Protein, Total - 6.6 Gm/dL???Al bumin - 3.4 Gm/dL???AG Ratio - 1.1???Alkaline Phosphatase - 181 units/L???AST (SGOT) - 84 units/L???ALT (SGPT) - 37 units/L???Bilirubin, Total - 1.8 mg/dL COVID-19 (2019 Novel Coronavirus) PCR (03/28/2023) ???COVID-19 PCR Specimen Source - NASAL???COVID-19 PCR Result - NEGATIVE COVID-19 (Novel Coronavirus), Rapid PCR (03/28/2023) ???COVID-19 by RT-PCR - NEGATIVE GLUCOSE POC (03/30/2023) ???Glucose, POC - 120 mg/dL High??Sensitivity??Troponin T (03/28/2023) ???High Sensitivity Troponin (HSTnT) - HEMOLYZED HOLD BLUE TUBE (03/28/2023) ???Hold Blue Top - SPECIMEN DISCARDED AFTER 4 HOURS. HOLD GEL TUBE (03/28/2023) ???Hold Gel Top - SPECIMEN DISCARDED AFTER 1 WEEK HOLD GREEN TUBE (03/28/2023) ???Hold Green Top - SPECIMEN DISCARDED AFTER 1 WEEK HOLD LAVENDER TUBE (03/28/2023) ???Hold Lavender Top - SPECIMEN DISCARDED AFTER 24 HOURS. INR (03/29/2023) ???INR - 1.1???Protime (PT) - 11.8 seconds Lactate Level (03/28/2023) ???Lactate - 1.5 mmol/L Lipase (03/28/2023) ???Lipase - 37 units/L Lytes (03/28/2023) ???Sodium - 135 mmol/L???Potassium - 4.3 mmol/L???Chloride - 98 mmol/L???Bicarbonate Level - 27 mmol/L???Anion Gap - 10 Magnesium Level (03/29/2023) ???Magnesium - 2.0 mg/dL Phosphorus Level (03/29/2023) ???Phosphorus - 2.8 mg/dL ProBNP (03/28/2023) ???Nt-Probnp - 279 pg/mL Troponin T, High Sensitivity (03/28/2023) ???High Sensitivity Troponin (HSTnT) - 8 ng/L TSH with T4 Reflex (Adults Only) (03/28/2023) ???TSH - 1.67 uIU/mL Urinalysis w/hold for Urine Culture (03/28/2023) ???Appear/Color, Urine - YELLOW???Specific [place], Urine - 1.019???pH, Urine - 6.0???Albumin, Urine - TRACE???Glucose, Urine - NEGATIVE???Ketones, Urine - 1+???Bilirubin, Urine - NEGATIVE???Hemoglobin, Urine - NEGATIVE???Nitrite, Urine - NEGATIVE???Leukocyte, Urine - NEGATIVE???Urobilinogen - 4 mg/dL? ?WBC's, Urine - 4 /HPF? ?RBC's, Urine - 2 /HPF? ?Squamous Epith - <1 /HPF? ?Mucus - SLIGHT? ?Hold Urine Culture - Testing available 48 hours from time of collection. Allergies (NKA means No Known Allergies) Toradol Problems Active Problems??(17) Alcohol use disorder, moderate, dependence?? Asthma?? Cannabis abuse?? Chronic low back pain?? Cocaine abuse?? COPD with emphysema?? DDD (degenerative disc disease)?? H/O repair of right rotator cuff?? Heroin overdose?? HIV?? HIV disease?? [id number] positive?? Hypertension?? Major depressive disorder?? Nicotine dependence?? Opiate dependence?? Suicidal ideation?? Education Materials Below is the list of Educational Leaflet Providered with your Discharge Instructions. Valuables and Belongings I fully understand and agree that [facility] accepts no responsibility for all my personal property including clothing, toilet articles, radios, jewelry, dentures, hearing aids, rings, money, or any other property that is in my possession or is brought to me after admission. I understand certain valuables may be placed in a hospital safe for a short period of time. I understand that the hospital is not liable for loss or damage due to accident, fire, or other natural occurrence while said property is in the safe. I accept full responsibility for any personal property that I keep with me, and will not hold the hospital responsible in case of loss or disappearance. I acknowledge that i have been encouraged to send valuables and belongings home. ?? Safe envelope number: [id number] Review of Valuable and Belonging List: With witness Date for Pt to Sign Valuables/Belongings: 03/29/23 14:50:00 ?? Other Discharge Information ? Case Management Discharge Plan?? Discharge Plan?? Discharge Level of Care at Discharge: Home/Care Home/Foster Care ?? Pulmonary Rehab Status?? Pulmonary Rehab Discharge Status?? Respiratory Rate: 17 br/min ? Common Emergency Awareness Tips IS IT A STROKE? Act FAST and Check for these signs: FACE Does the face look uneven? ARM Does one arm drift down? SPEECH Does their speech sound strange? TIME Call at any sign of stroke ?? Heart Attack Signs Chest discomfort: Most heart attacks involve discomfort in the center of the chest and lasts more than a few minutes, or goes away and comes back. It can feel like uncomfortable pressure, squeezing, fullness or pain. Discomfort in upper body: Symptoms can include pain or discomfort in one or both arms, back, neck, jaw or stomach. Shortness of breath: With or without discomfort. Other signs: Breaking out in a cold sweat, nausea, or lightheaded. Remember, MINUTES DO MATTER. If you experience any of these heart attack warning signs, call to get immediate medical attention! ?? Smoking can increase your chances of developing chronic health problems and can cause harmful effects to other family members in your house. If you smoke, you are strongly encouraged to quit. Please call [employer] Link at [phone] or [phone] ([phone]) or log in to [email or web address] for referrals to smoking cessation programs. ?? 988 Suicide & Crisis Lifeline is available 17/04 if you or someone you know needs to find a reason to keep living. By calling 988 you'll be connected to a skilled, trained counselor at a crisis center in your area. INPATIENT DISCHARGE INSTRUCTIONS SIGNATURE PAGE WILVER DAMIAN Location:[facility] Registration Date and Time:03/28/2023 09:11 EDT Primary Care Physician: Shayy Nielson NP, Attending Physician: Monisha ALBARRAN, Josias Mendoza, I WILVER DAMIAN, have received the above patient education materials/instructions and have verbalized understanding. If ambulance or transport services are being used I further acknowledge being given a choice of service. ?? If you need to contact me, please call me at this number: . Patient/Physician In Private Practice Name: Patient/Physician In Private Practice Signature: Relationship to Patient: Witness Name/Signature: Date: * Debbie Haq RN: PERFORM Event Display: Patient Education Leaflets Authored Date: [id number] Alcohol Addiction: Do I have a problem? ?? 05045 Alcohol Addiction: Do I have a problem? Do you want to have more fun, to fit in, to cope better with your problems? It???s as easy as taking a drink???if you believe what you see on TV and in movies. But don't fool yourself. The more you regularly rely on alcohol to relax you or make you feel good, the closer you move toward addiction. If you decide you are on the path to addiction, you can take action to change your behavior. And you can find caring people to help you. Do I have a problem with alcohol? You may drink to feel more likable, to loosen up, or to relax. But drinking has a serious downside.Alcohol can lead to slurred speech, poor judgment, and risky behavior. Alcohol can also lead to serious health problems. These include liver disease and heart disease. It can also cause loss of mental function. To find out if you may have a problem with alcohol, think about the questions below. The National [place] on Alcohol Abuse and Alcoholism (NIAAA) states any of the symptoms listed below could be cause for concern. Think about these and talk with your healthcare provider. In the past year, have I: ??? Had times when I drank more or longer than I meant to? Tried to cut back or stop drinking more than once, but couldn't? Spent a lot of time drinking? Or being sick after I drank? Wanted a drink so badly that I couldn't think of anything else? Had family, school, or work problems linked to my drinking? Kept drinking even though it causes problems with my relationships with my family, friends, or peers? Given up doing things I enjoy, so I could drink? Taken part in risky behaviors after drinking? These may include unprotected sex or operating a car or machine after drinking. ??? Kept drinking even though it makes another health problemworse? Or even if it makes me feel anxious or depressed? Had to drink more than I used to just to get the effect I want? Had withdrawal symptoms when the alcohol starts to wear off? These caninclude shakiness, insomnia, sweating, a racing heart, or digestive upset. ?? Last Reviewed Date: 2021 ?? [employer]. All rights reserved. This information is not intended as a substitute for professional medical care. Always follow your healthcare professional's instructions. ?? * Debbie Haq RN: PERFORM Event Display: Patient Education Leaflets Authored Date: [id number] Alcohol Abuse ?? [id number] Alcohol Abuse Alcoholic drinks harm you when you have too many of them. No set number of drinks means too much. Drinking that affects your life or your health is called alcohol abuse. Alcohol abuse can hurt your relationships with others. You may lose friends, a spouse, or even your job. You may be abusing alcohol if any of the following are true for you: ??? Duties at home or with child care center administrator suffer because of drinking. ??? Duties at work or in school suffer because of drinking. ??? You have missed work or school because of drinking. ??? You use alcohol while driving or using machinery. ??? You have legal problems such as arrests because of drinking. ??? You keep drinking even though it causes serious problems in your life. Health problems Alcohol abuse causes many health problems.??Sometimes this can happen after only drinking a ???little. ??The effects depend on how much you drink at one time and how often you drink. The effects also depend on how long you drink. For example, months, years, or decades.??Alcohol affects all parts of your body Brain Alcohol affects the central nervous system. It can damage parts of the brain that control your balance and gait, memory, thinking, and emotions. It can cause: ??? Memory loss ??? Blackouts ??? Depression ??? Agitation ??? Sleep problems ??? Seizures These changes may be human resource adviser (permanent). Heart and blood vessels Alcohol can damage heart muscle (cardiomyopathy). This can lead to: ??? Trouble breathing ??? Irregular heartbeat ??? Atrial fibrillation ??? Leg swelling ??? Heart failure Alcohol also makes the blood vessels stiff. This causes high blood pressure. All of these problems raise your risk of having a heart attack or stroke. Liver Alcohol causes fat to build up in the liver. This affects how the liver works. Alcohol also raises the risk for hepatitis. It can cause: ??? Belly (abdominal) pain ??? Belly swelling ??? Loss of appetite ??? Yellowed eyes or skin (jaundice) ??? Bleeding problems ??? Cirrhosis This can make it harder for you to fight off infections. The liver changes keep it from removing toxins in your blood that can cause brain disease (encephalopathy). This condition cause: ??? Confusion ??? Changed level of consciousness ??? Personality changes ??? Memory loss ??? Seizures, coma, and The liver changes can also cause the veins in your esophagus and stomach to become thin and swollenwith blood (varices). This can cause bleeding and vomiting of blood. Pancreas Alcohol can cause swelling (inflammation) of the pancreas (pancreatitis). This can cause belly pain, fever, and diabetes. Immune system Alcohol weakens your immune system. This makes it harder for you to fight infections and colds. It also makes it more likely for you to get pneumonia and tuberculosis. Cancer Alcohol raises the risk for several types of cancer. These include cancer of the mouth, esophagus, pharynx, larynx, liver, and breast. Sexual function Alcohol can lead to sexual problems. ?? Home care These guidelines will help you deal with alcohol abuse: ??? Admit you have a problem with alcohol. ??? Ask for help from your healthcare provider. Also ask for help from trusted family members or close friends. ??? Get help from people trained in dealing with alcohol abuse. This may be one-on-one counseling or group therapy. Or it may be an alcohol treatment program. ??? Join a self-help group for alcohol abuse such as Alcoholics Anonymous. ??? Stay away from people who abuse alcohol or tempt you to drink. ?? Follow-up care Follow up with your healthcare provider, or as advised. Contact these groups to get help: ??? Alcoholics Anonymous (AA) at www.aa.org. Or check the phone book for meetings near you. ??? National Alcohol and Substance Abuse Information Center (NASAIC) at www.addictioncareSourceTrace Systems.[employer] or 754-412-5029 ??? National [place] on Alcoholism and Drug Dependence (NCADD) at www.ncadd.org or 812-UVR-XBHY (234-817-9807) ?? Call 911 Call 911 if any of these occur: ??? Trouble breathing or slow, irregular breathing ??? Chest pain ??? Sudden weakness on one side of your body or sudden trouble speaking ??? Heavy bleeding or vomiting blood ??? Very drowsy or trouble awakening ??? Fainting or loss of consciousness ??? Rapid heart rate ??? Seizure ?? When to seek medical care Call your healthcare provider right away if any of these occur:? Confusion ??? Seeing, hearing, or feeling things that aren???t there (hallucinations) ??? Pain in your upper belly that gets worse ??? Vomiting that continues, vomiting with blood, or black or tarry stools ??? Severe shakiness ?? Last Reviewed Date: 2021 ?? 0030-0114 [employer]. All rights reserved. This information is not intended as a substitute for professional medical care. Always follow your healthcare professional's instructions. ?? Patient Care team information Care Team Personnel Name: Flor Ludwig RN Position: [facility] RN Member Role: Primary Care Nurse Name: Thuy Ferrer RN Position: [facility] RN Member Role: Primary Care Nurse Name: Mary Adorno Position: [facility] Outreach Member Role: Lifetime Consulting Physician Name: Kelly Menon RN Position: [facility] RN Member Role: Primary Care Nurse Name: Lon Stephens RN Position: [facility] SN RN Member Role: Primary Care Nurse Name: Debbie Hawkins RN Position: [facility] TAD RN W/OE and Tasks Member Role: Primary Care Nurse Name: Shauna Ayala RN Position: [facility] RN Member Role: Primary Care Nurse Name: Yong Olsen RN Position: [facility] SN RN Member Role: Primary Care Nurse Name: Octavia Tellez RN Position: [facility] RN Member Role: Primary Care Nurse Name: Annia James RN Position: [facility] Fisherman Helper Member Role: Primary Care Nurse Name: Mary Frost RN Position: [facility] RN Member Role: Primary Care Nurse Name: Shayy Nielson NP Position: [facility] Outreach Member Role: PCP Address: Address: [address] [place] [id number] Name: Heide Eldridge RN Position: [facility] RN Member Role: Primary Care Nurse Name: Debbie Haq RN Position: [facility] RN Member Role: Primary Care Nurse Name: Barbra Jerez RN Position: [facility] RN Member Role: Primary Care Nurse Name: Mason Ornelas RN Position: [facility] Hospital Fisherman Helper Member Role: Primary Care Nurse Name: Latisha EDWARD Attending Position: [facility] ED Medicine MD Name: Veronica Bruno RN Position: [facility] ED RN W/OE and Tasks Member Role: Patient Care Provider Name: Mckenzie Castillo Position: [facility] ED TA [facility] Member Role: Force Dispatcher Care Team Related Persons Name: TAMMY VARGAS Address: home [address] [place] [address] Name: VANDANA DAMIAN Address: [address] [place] [address]
== END 2023-04-16 07:27 | disposition home or self-care (01) ==
PROVIDERS: Emergency Provider Internal Medicine
DX: S39.012A Strain of muscle, fascia and tendon of lower back, initial encounter (principal); W18.30XA Fall on same level, unspecified, initial encounter; Y93.9 Activity, unspecified; Y92.9 Unspecified place or not applicable; Y99.9 Unspecified external cause status
CPT/HCPCS: 72100; 73502; 99283; 99285

== ENCOUNTER 2023-04-18 08:17 | Inpatient (IN) | payer OTHER, SELFPAY ==
[2023-04-18] VITALS (7 sets, daily range): BP systolic 121–158; BP diastolic 67–76; PULSE 60–84; RESP 13–18; TEMP 36.1–36.8; O2SAT 92–99; BMI 28.2
--- NOTE | 2023-04-18 | ECG_ITS ---
Test Reason : ADMIT REQUIREMENT Blood Pressure : / mmHG Vent. Rate : 072 BPM Atrial Rate : 072 BPM P-R Int : 148 ms QRS Dur : 082 ms QT Int : 388 ms P-R-T Axes : 032 036 -12 degrees QTc Int : 424 ms Normal sinus rhythm T wave abnormality, consider anterolateral ischemia Abnormal ECG When compared with ECG of 08-DEC-2022 11:58, T wave inversion now evident in Anterolateral leads Referred By: Raphael Alonso Electronically Signed By:ANGELI FERRARI MD
--- NOTE | ~2023-04-18 | US_ITS ---
EXAMINATION: US ABDOMEN COMPLETE CLINICAL INFORMATION: Increasing alkaline phosphatase with history of hepatitis C. COMPARISON: CT abdomen/pelvis 09/06/2022, prior abdominal ultrasounds from 09/09/2020 and 09/13/2018. TECHNIQUE: Real-time imaging of the abdominal viscera. FINDINGS: PANCREAS: The pancreas could not be seen as it was obscured by bowel gas. ABDOMINAL AORTA: No aortic aneurysm is seen. Plaque is present in the infrarenal aorta. The visualized IVC is unremarkable. INFERIOR VENA CAVA: Visualized portions are normal. LIVER: The liver is normal in size. The liver contour is normal. There is diffuse increased liver parenchymal echogenicity, consistent with hepatic steatosis. No focal hepatic lesion. There is no intrahepatic biliary duct dilatation seen. GALLBLADDER: The gallbladder is physiologically distended. A single mobile 6 mm gallstone is seen. No evidence of gallbladder wall thickening or pericholecystic fluid. COMMON BILE DUCT: Normal in caliber measuring 0.6 cm in diameter. RIGHT KIDNEY: No hydronephrosis. No renal calculi. A benign 1.8 cm Bosniak class I renal cyst is noted which requires no additional imaging or follow up. No solid renal masses are seen. The kidney measures 9.2 cm in maximum dimension. LEFT KIDNEY: No hydronephrosis. No renal calculi. The kidney measures 9.7 cm in maximum dimension. There is a single benign Bosniak class I renal cyst present measuring 2.6 cm for which no additional imaging or followup is necessary. There is an additional complex cyst with multiple septations some of which may contain calcium measuring 4.2 x 3.5 x 3.3 cm. This can be seen on the 09/06/2022 CT scan measuring fairly similar in size. On the 09/09/2020 study maximal dimension was 3.5 cm. On the 09/13/2018 ultrasound, this measured a maximum of 4.1 cm in size. SPLEEN: Normal. The spleen measures 8.9 cm in maximum dimension. FREE FLUID: None. US/US abdomen complete IMPRESSION: 1. Hepatic steatosis. 2. Cholelithiasis. 3. Bosniak class I renal cysts for which no additional imaging or follow up is necessary. 4. There is an additional Bosniak class II complex cyst at the lower pole of the left kidney with multiple septations. This has waxed and waned in size since 2018. There has never been a precontrast and postcontrast study of this renal lesion and dedicated renal precontrast and postcontrast CT scan is recommended for further evaluation.
--- NOTE | ~2023-04-18 | XR_ITS ---
EXAMINATION: XR SACRUM AND COCCYX CLINICAL INFORMATION: Status post fall with sacral pain. COMPARISON: None available. TECHNIQUE: 2 views of the sacrum and 2 views of the coccyx were obtained. FINDINGS: Normal sacrococcygeal curvature. Generalized osteopenia is seen. There is no acute fracture. Mild degenerative disc disease at L5-S1. Bilateral hip hardware appears intact and the visualized portions. XR/XR sacrum coccyx min 2V IMPRESSION: 1. Generalized osteopenia. No acute fracture. 2. L5-S1 mild degenerative disc disease. Bilateral hip hardware appears intact.
--- NOTE | ~2023-04-18 | XR_ITS ---
EXAMINATION: XR FOOT, RIGHT CLINICAL INFORMATION: Right foot pain and swelling. COMPARISON: None available. TECHNIQUE: AP, lateral, and oblique views of the right foot. FINDINGS: The bones and soft tissues are normal. No fracture. Alignment is anatomic. 2 screws in the medial malleolus appear intact without abnormality. Joint spaces are maintained. XR/XR foot RT min 3V IMPRESSION: Unremarkable right foot.
[2023-04-18 09:44] LABS: MANUAL DIFF FLAG NO
[2023-04-18 09:46] LABS: Basophils Absolute Auto 0.1 X10*3/uL (0.0-0.2); Basophils Percent Auto 0.6 % (0-2); Eosinophils Absolute Auto 0.1 X10*3/uL (0.0-0.4); Eosinophils Percent Auto 0.4 % (0-4); Hematocrit 39.1 % (42.0-52.0); Hemoglobin 13.3 g/dl (14.0-18.0); Imm Gran Abs Auto 0.11 X10*3/uL (0.00-0.03); Imm Gran Pct Auto 0.6 % (0.0-0.4); Lymphocytes Absolute Auto 2.2 X10*3/uL (1.2-4.9); Lymphocytes Percent Auto 12.1 % (20-40); Mean Corpuscular Hemoglobin 32.8 pg (27.0-33.0); Mean Corpuscular Volume 96.5 fL (80.0-98.0); Mean Platelet Volume 10.4 fL (9.4-12.4); Monocytes Absolute Auto 1.2 X10*3/uL (0.1-1.2); Monocytes Percent Auto 6.9 % (2-11); Neutrophils Absolute Auto 14.2 x10*3/uL (2.0-8.3); Neutrophils Percent Auto 79.4 % (45-73); Platelet Count 242 X10*3/uL (160-400); Red Blood Count 4.05 X10*6/uL (4.60-5.80); Red Cell Distribution Width 14.1 % (11.0-16.0); White Blood Count 17.9 X10*3/uL (4.8-10.8)
[2023-04-18] MEDS: Acetaminophen 325 MG TABLET 975 MG PO (09:50)
[2023-04-18] MEDS: ondansetron HCL 4 MG/2 ML VIAL IVPUSH (09:51)
[2023-04-18] MEDS: Ibuprofen 600 MG TABLET PO (09:53)
[2023-04-18 10:03] LABS: Amphetamine Screen Urine Not Detected (Not Detect); Barbiturates, Urine Not Detected (Not Detect); Benzodiazepines Screen Urine Not Detected (Not Detect); Cannabinoid Screen Urine Not Detected (Not Detect); Cocaine Screen Urine POSITIVE (Not Detect); Fentanyl, urine POSITIVE (Not Detect); Opiate Screen Urine Not Detected (Not Detect); Phencyclidine Screen Urine Not Detected (Not Detect)
[2023-04-18 10:05] LABS: Alanine Aminotransferase 49 U/L (0-40); Albumin Level 3.5 g/dL (3.5-5.0); Alkaline Phosphatase 178 U/L (39-117); Anion Gap 13 (12-20); Aspartate Amino Transferase 82 U/L (5-37); Bilirubin Total 1.6 mg/dL (0.0-1.0); Blood Urea Nitrogen 13 mg/dL (9-16); Calcium 8.8 mg/dL (8.4-10.2); Carbon Dioxide 25 mmol/L (22-29); Chloride 100 mmol/L (96-108); Creatinine Clr Calc Pharmacy 98.2; Estimated Glomerular Filt Rate > 60; Glucose Random 60 mg/dL (60-115); Potassium 3.8 mmol/L (3.3-5.1); Sodium 134 mmol/L (135-145); Total Protein 7.5 g/dL (6.5-8.0)
--- NOTE | 2023-04-18 10:23 | MHC.EDTECH ---
PT changed over. Belongings in locker #10.
--- NOTE | 2023-04-18 10:39 | PC.NURSE ---
pt states that he overdosed on fentanyl a couple days ago as a si attempt, states a friend gave him narcan, states si and depression for 6 months, [facility] informed and getting a sitter for the pt, pt changed into hosp attire, calm and cooperative but tearful at times
--- NOTE | 2023-04-18 11:16 | ED_ITS ---
HPI - General Adult General Chief complaint: Wound/Laceration Stated complaint: R FOOT PAIN/?INF,LOW BACK PAIN FALL T-2 PER EMS Time Seen by Provider: 04/18/23 09:19 Source: patient Mode of arrival: EMS Limitations: no limitations History of Present Illness HPI narrative: 58-year-old male presents with multiple complaints. First of all, patient complaining right foot pain. Symptoms started 2 weeks ago. Patient is currently homeless and spending a lot of time walking. He has developed swelling and redness the right foot. The pain is moderate to severe. Worse with walking. The pain does not radiate. Not associated with any numbness or tingling. There has been no trauma. Additionally, patient fell yesterday. Was a mechanical fall. Fell onto his buttock area. Since then he is having tailbone pain. The tailbone pain is moderate nature. Worse with sitting. The pain does not radiate. Is able to control his bowel in his bladder. There is no numbness and tingling. Patient also reports having suicidal ideation last night. There has been no plan. He is very depressed and anxious. His son has cancer and is in [place]. His sister recently passed and he is currently homeless. Related Data Home Medications Medication Instructions Recorded Confirmed bictegravir 50 mg-emtricitabine 1 tab PO DAILY 09/04/20 04/18/23 200 mg-tenofovir alafenam 25 mg tablet (Biktarvy) gabapentin 800 mg tablet 800 mg PO TID 09/04/20 04/18/23 inhalational spacing device #1 ea 09/04/20 09/07/22 (Aerochamber Plus Z Stat spacer) quetiapine 300 mg tablet 300 mg PO BEDTIME 09/04/20 04/18/23 buspirone 15 mg tablet 15 mg PO BID 09/07/22 04/18/23 methadone 10 mg/mL oral concentrate 69 mg PO DAILY 09/07/22 12/08/22 omeprazole 40 mg capsule,delayed 1 cap PO DAILY@0630 09/07/22 04/18/23 release buspirone 10 mg tablet 10 mg PO BID 12/08/22 04/18/23 fluticasone furoate 100 1 puff inhalation DAILY 12/08/22 04/18/23 mcg-vilanterol 25 mcg/dose inhalation powder (Breo Ellipta) bupropion HCl 150 mg tablet,12 hr 150 mg PO BID 04/18/23 04/18/23 sustained-release cyclobenzaprine 10 mg tablet 10 mg PO Q8H PRN Muscle Spasm 04/18/23 04/18/23 Previous Rx's Medication Instructions Recorded tramadol 50 mg tablet 50 mg PO Q6H PRN pain #20 tabs 04/16/23 Allergies Allergy/AdvReac Type Severity Reaction Status Date / Time ketorolac [From Toradol] AdvReac Itching Verified 02/28/23 14:51 Review of Systems Review of Systems: CONSTITUTIONAL: Denies weight loss, fever and chills. HEENT: Denies changes in vision and hearing. RESPIRATORY: Denies SOB and cough. CV: Denies palpitations no CP. GI: Denies abdominal pain, nausea, vomiting and diarrhea. : Denies dysuria and urinary frequency. MSK: + myalgia and joint pain. SKIN: Denies rash and pruritus. NEUROLOGICAL: Denies headache and syncope. PSYCHIATRIC: + recent changes in mood. + anxiety and depression. All other ROS are negative unless in HPI PMFSH Past Medical History Medical History Colitis COPD (chronic obstructive pulmonary disease) Hepatitis C HIV infection Hypertension IBS (irritable bowel syndrome) Opioid dependence Osteoarthritis of both hips Prediabetes PTSD (post-traumatic stress disorder) Surgical History History of right hip replacement Status post right shoulder hemiarthroplasty Family History Family History Other No family history of coronary artery disease Social History Social History Alcohol intake: current Alcohol intake frequency: a few times a week Alcohol type: beer Patient Tobacco Use Status: Current everyday Tobacco user Cigarette Packs Per Day: 1 Smoked in Last 30 Days: Yes Use of substances other than those prescribed or required for medical reasons: Yes Substance Use Type: Heroin Substance Use Frequency: Chronic Longstanding Last Used Substance: Days (ago) Any prior treatment program specific to substance use: Yes Advance Directives: Yes Advance Directives on File: Yes Advance Directives Date on File: 09/07/22 Healthcare Proxy: No Guardian: No service: No Current occupational status: disabled Physical Exam ED Vital Signs: Vital Signs - 24 hr 04/18/23 08:30 04/18/23 11:09 04/18/23 13:50 Temperature 98.2 F Pulse Rate 84 77 74 Respiratory Rate 15 15 17 Blood Pressure 152/75 H 121/67 Pulse Oximetry 97 97 92 Oxygen Delivery Method Room Air Room Air 04/18/23 14:00 Temperature 97.9 F Pulse Rate 74 Respiratory Rate 13 Blood Pressure 135/76 Pulse Oximetry 93 Oxygen Delivery Method Room Air BMI result Body Mass Index 28.2 GEN: Well developed, no acute distress, alert, oriented HEENT: Normocephalic, atraumatic, normal external ears, nose appears normal, no oropharyngeal edema or exudates Eyes: Normal to appearance Neck: Supple, no lymphadenopathy Respiratory: Talks in complete sentences, no respiratory distress, clear to auscultation bilaterally Cardiovascular: Regular rate and rhythm, no murmurs rubs or gallops Abdomen: Soft, nontender, nondistended, no guarding, no rebound Back: No CVA tenderness Extremities: No clubbing cyanosis or edema, right medial foot erythematous changes, swelling, possible fluid-filled cyst, less likely to be abscess Neurologic: No focal neurologic deficits, cranial nerves 2-12 intact, strength is 5/5 bilaterally Skin: No rash Psych: Tearful, depressed affect, anxious appearing, passive suicidal ideation Course Course Course Narrative: Patient is medically clear for psychiatric evaluation. Discussed all results with the patient. Additionally, I assessed his foot with an ultrasound identif elisabeth a fluid-filled cavity. I doubt abscess. Patient does not want an incision and drainage at this time. I will place patient in physician observation at this time Reevaluation(s) Reevaluation #1: Patient will be an inpatient bed search. Time: 13:03 Reevaluation #2: Patient's care will be transitioned to Dr. Sharp. Disposition pending bed search. Time: 16:24 Medications Administered Discontinued Medications Generic Name Dose Route Start Last Admin Trade Name Freq PRN Reason Stop Dose Admin Acetaminophen 975 mg 04/18/23 09:27 04/18/23 09:50 Acetaminophen 325 Mg Tablet PO 04/18/23 09:28 975 mg ONCE ONE Administration Ibuprofen 600 mg 04/18/23 09:27 04/18/23 09:53 Ibuprofen 600 Mg Tablet PO 04/18/23 09:28 600 mg ONCE ONE Administration Methadone HCl 20 mg 04/18/23 15:00 04/18/23 14:56 Methadone Hcl 20 Mg/2 Ml Oral.Conc PO 04/18/23 15:01 20 mg ONCE ONE Administration Ondansetron HCl 4 mg 04/18/23 09:27 04/18/23 09:51 Ondansetron Hcl 4 Mg/2 Ml Vial IVPUSH 04/18/23 09:28 4 mg ONCE ONE Administration Medical Decision Making Medical Decision Making [facility] Narrative: Foot DD: blister, fracture, contusion, abscess Plan: XR to r/o Fx Possible IandD Scaral Pain: DD contusion, fracture Plan XR, pain management SI/Depression DD: drepssive disorder, mood disoder, SI, anxiety, PTSD Plan: medically clear, Care Team Differential Diagnosis Differential Diagnoses: The differential diagnosis associated with the presentation includes (see above) Admission/Observation Consideration of admission/observation: Escalation of care including admission/observation considered Lab Data [facility] Lab Attestation statement: I reviewed the patient's lab results. 04/18/23 09:39 04/18/23 09:39 Labs: Lab Results 04/18/23 04/18/23 04/18/23 Range/Units 09:39 09:39 09:39 WBC 17.9 H (4.8-10.8) X10*3/uL RBC 4.05 L (4.60-5.80) X10*6/uL Hgb 13.3 L (14.0-18.0) g/dl Hct 39.1 L (42.0-52.0) % MCV 96.5 (80.0-98.0) fL MCH 32.8 (27.0-33.0) pg MCHC 34.0 (31.0-36.0) g/dl RDW 14.1 (11.0-16.0) % Plt Count 242 (160-400) X10*3/uL MPV 10.4 (9.4-12.4) fL Immature Gran % (Auto) 0.6 H (0.0-0.4) % Neut % (Auto) 79.4 H (45-73) % Lymph % (Auto) 12.1 L (20-40) % Anson % (Auto) 6.9 (2-11) % Eos % (Auto) 0.4 (0-4) % Baso % (Auto) 0.6 (0-2) % Lymph # (Auto) 2.2 (1.2-4.9) X10*3/uL Anson # (Auto) 1.2 (0.1-1.2) X10*3/uL Eos # (Auto) 0.1 (0.0-0.4) X10*3/uL Baso # (Auto) 0.1 (0.0-0.2) X10*3/uL Abs Immat Gran (auto) 0.11 H (0.00-0.03) X10*3/uL Absolute Neuts (auto) 14.2 H (2.0-8.3) x10*3/uL Absolute Nucleated RBC 0.000 (0.0-0.012) X10*3/uL Nucleated RBC % (auto) 0.0 (0.0-0.2) /100WBC Sodium 134 L (135-145) mmol/L Potassium 3.8 D (3.3-5.1) mmol/L Chloride 100 (96-108) mmol/L Carbon Dioxide 25 (22-29) mmol/L Anion Gap 13 (12-20) BUN 13 (9-16) mg/dL Creatinine 0.96 (0.5-1.4) mg/dL Estim Creat Clear Calc 98.2 Estimated GFR > 60 Random Glucose 60 (60-115) mg/dL Calcium 8.8 (8.4-10.2) mg/dL Total Bilirubin 1.6 H (0.0-1.0) mg/dL AST 82 H (5-37) U/L ALT 49 H (0-40) U/L Alkaline Phosphatase 178 H (39-117) U/L Total Protein 7.5 (6.5-8.0) g/dL Albumin 3.5 (3.5-5.0) g/dL Urine Color Urine Appearance Urine pH (5.0-9.0) Ur Specific [place] (1.005-1.025) Urine Protein (Neg-Trace) mg/dL Urine Glucose (UA) (Negative) mg/dL Urine Ketones (Negative) mg/dL Urine Blood (Negative) Urine Nitrite (Negative) Ur Leukocyte Esterase (Negative) Urine Opiates Screen Not Detected (Not Detect) Urine Fentanyl Screen POSITIVE H (Not Detect) Ur Barbiturates Screen Not Detected (Not Detect) Ur Phencyclidine Scrn Not Detected (Not Detect) Ur Amphetamines Screen Not Detected (Not Detect) U Benzodiazepines Scrn Not Detected (Not Detect) Urine Cocaine Screen POSITIVE H (Not Detect) U Marijuana (THC) Screen Not Detected (Not Detect) COVID-19 (LAURA) (Negative) COVID-19 Clin Com 04/18/23 04/18/23 Range/Units 09:39 14:00 WBC (4.8-10.8) X10*3/uL RBC (4.60-5.80) X10*6/uL Hgb (14.0-18.0) g/dl Hct (42.0-52.0) % MCV (80.0-98.0) fL MCH (27.0-33.0) pg MCHC (31.0-36.0) g/dl RDW (11.0-16.0) % Plt Count (160-400) X10*3/uL MPV (9.4-12.4) fL Immature Gran % (Auto) (0.0-0.4) % Neut % (Auto) (45-73) % Lymph % (Auto) (20-40) % Anson % (Auto) (2-11) % Eos % (Auto) (0-4) % Baso % (Auto) (0-2) % Lymph # (Auto) (1.2-4.9) X10*3/uL Anson # (Auto) (0.1-1.2) X10*3/uL Eos # (Auto) (0.0-0.4) X10*3/uL Baso # (Auto) (0.0-0.2) X10*3/uL Abs Immat Gran (auto) (0.00-0.03) X10*3/uL Absolute Neuts (auto) (2.0-8.3) x10*3/uL Absolute Nucleated RBC (0.0-0.012) X10*3/uL Nucleated RBC % (auto) (0.0-0.2) /100WBC Sodium (135-145) mmol/L Potassium (3.3-5.1) mmol/L Chloride (96-108) mmol/L Carbon Dioxide (22-29) mmol/L Anion Gap (12-20) BUN (9-16) mg/dL Creatinine (0.5-1.4) mg/dL Estim Creat Clear Calc Estimated GFR Random Glucose (60-115) mg/dL Calcium (8.4-10.2) mg/dL Total Bilirubin (0.0-1.0) mg/dL AST (5-37) U/L ALT (0-40) U/L Alkaline Phosphatase (39-117) U/L Total Protein (6.5-8.0) g/dL Albumin (3.5-5.0) g/dL Urine Color Yellow Urine Appearance Clear Urine pH 6.0 (5.0-9.0) Ur Specific [place] <= 1.005 (1.005-1.025) Urine Protein Negative (Neg-Trace) mg/dL Urine Glucose (UA) Negative (Negative) mg/dL Urine Ketones Negative (Negative) mg/dL Urine Blood Negative (Negative) Urine Nitrite Negative (Negative) Ur Leukocyte Esterase Negative (Negative) Urine Opiates Screen (Not Detect) Urine Fentanyl Screen (Not Detect) Ur Barbiturates Screen (Not Detect) Ur Phencyclidine Scrn (Not Detect) Ur Amphetamines Screen (Not Detect) U Benzodiazepines Scrn (Not Detect) Urine Cocaine Screen (Not Detect) U Marijuana (THC) Screen (Not Detect) COVID-19 (LAURA) Negative (Negative) COVID-19 Clin Com See Note Independent Interpretation I performed an independent interpretation of an: Plain X-Ray (Foot: NAD, Sacru: NAD) Radiology Impression Radiologist Impression: XR/XR foot RT min 3V IMPRESSION: Unremarkable right foot. Dictated By: Rod Velásquez MD Signed By: <Electronically signed by Rod Velásquez MD in [place]> 04/18/23 1056 XR/XR sacrum coccyx min 2V IMPRESSION: 1.? Generalized osteopenia. No acute fracture. 2.? L5-S1 mild degenerative disc disease. Bilateral hip hardware appears intact. Dictated By: Rod Velásquez MD Signed By: <Electronically signed by Rod Velásquez MD in [place]> 04/18/23 1056 Prescription Management I considered prescription management with: Pain Medication and Antibiotic Chronic Conditions Patient?s care impacted by: Other (HIV) Social Determinants Patient?s care significantly limited by Social Determinants of Health including: Inadequate housing Discharge Plan Discharge Clinical Impression: Acute foot pain, Coccygeal pain, Depressive disorder Patient Disposition: Still a Patient Prescriptions: No Action fluticasone furoate-vilanterol [Breo Ellipta] 100-25 mcg/dose blister with device 1 puff inhalation DAILY buspirone 10 mg Tablet 10 mg PO BID omeprazole 40 mg capsule,delayed release(DR/EC) 1 cap PO DAILY@0630 buspirone 15 mg tablet 15 mg PO BID methadone 10 mg/mL Concentrate 69 mg PO DAILY tramadol 50 mg tablet 50 mg PO Q6H PRN (Reason: pain) Qty: 20 0RF bupropion HCl 150 mg tablet sustained-release 12 hr 150 mg PO BID cyclobenzaprine 10 mg tablet 10 mg PO Q8H PRN (Reason: Muscle Spasm) (DME) Aerochamber Plus Z Stat Spacer See Rx Instructions .ROUTE .MEDSUPPLY Qty: 1 Rx Instructions: As directed Biktarvy 50-200-25 mg tablet 1 tab PO DAILY gabapentin 800 mg tablet 800 mg PO TID quetiapine 300 mg tablet 300 mg PO BEDTIME
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
[2023-04-18 11:24] LABS: Appearance Urine Clear; Color Urine Yellow; Glucose Urine UA Negative (Negative); Leukocyte Esterase Urine Negative (Negative); Nitrite Urine Negative (Negative); Specific Gravity - Urine <= 1.005 (1.005-1.025); Urine Blood Negative (Negative); Urine Ketones Negative (Negative); Urine Protein Negative (Neg-Trace)
--- NOTE | 2023-04-18 11:31 | PC.NURSE ---
md turner notified cows 3 ciwa 12. md turner closed loop re: pt having si- behavioral team aware.
[2023-04-18 14:21] LABS: COVID-19 Test Negative (Negative); IDNOW Serial# BCCEAD1C
[2023-04-18] MEDS: methADONE HCl 20 MG/2 ML ORAL.CONC PO (14:56)
--- NOTE | 2023-04-18 15:05 | PC.NURSE ---
arvin turner- ordered 20mg methadone- admin'd per nov. johnny given last dose letter to review.
--- NOTE | 2023-04-18 15:48 | PHA.MEDREC ---
Pharmacy Consult ? Medication Reconciliation Pharmacy has completed the medication reconciliation. Patient reported all of his medication that were filled at [facility] pharmacy. When asked about Biktarvy he report that he takes it and its an important medication. Patient was recently prescribed cyclobenzaprine and tramdol in the ER but has not picked up the prescripitions yet. Methadone need to be confirmed by RN. Mary Beth Faulkner, SriramD
[2023-04-18] MEDS: hydrOXYzine HCL 25 MG TABLET PO (22:54)
[2023-04-18] MEDS: QUEtiapine Fumarate 50 MG TABLET 150 MG PO (22:54)
--- NOTE | 2023-04-19 02:35 | PC.ADMIT ---
PT is a 58 year old single, homeless, white male admitted to unit at 2245 on CV from [facility] where he presented to ED for R foot pain for past 2 weeks, and a mechanical fall causing coccygeal pain. PT ambulates with a cane. PT reported SI with no plan. PT has hx of suicide attempts by hanging and recent OD. PT has past medical hx of HIV, Hep C, IBS, HTN, PTSD, colitis, COPD, opioid, alcohol, and cocaine dependance, osteoarthritis of both hips and depressive d/o. VSS, COVID negative. Tox screen positive for cocaine and fentanyl. PT had R foot xray which was unremarkable. PT had untrasound of R foot which showed a fluid filled cavity and PT refused a incision and drainage. EKG showed NSR and a T wave inversion. PT is known to CARE team and has hx of multiple inpatient admissions since 2013, last one being 'a few years ago.' PT placed on 15 minute safety checks and treatment plan initiated. PT wanted to go to bed and agreed to do safety tool in the am. PT currently resting in bed.
[2023-04-19] MEDS: Omeprazole 40 MG CAPSULE.DR PO (05:30)
--- NOTE | 2023-04-19 07:20 | HE.PHANOTE ---
RE: methadone Received methadone verifiction form, last dose from [facility] 04/17/23 @0613am 70mg
[2023-04-19] MEDS: methADONE HCl 20 MG/2 ML ORAL.CONC 70 MG PO (08:12)
[2023-04-19] MEDS: Bictegrav/Emtricit/Tenofov Ala TABLET 1 TAB PO (08:13)
[2023-04-19] MEDS: buPROPion HCl XL 300 MG TAB.ER.24H PO (08:13)
[2023-04-19] MEDS: busPIRone HCl 10 MG TABLET PO ×2 (08:13→16:56)
[2023-04-19 08:15] VITALS: BP 122/74; PULSE 78; RESP 18; TEMP 36.1; O2SAT 98
--- NOTE | 2023-04-19 09:20 | P.HPPS_ITS ---
HPI Date of Service: 04/19/23 Chief Complaint: SI Sources of Information: patient interviewed, chart reviewed and crisis/core team assessment reviewed HPI Subjective Notes: Mir Warning and Conditional Voluntary Narrative: Patient is a 58-year-old male with history of depression, PTSD, substance abuse and other medical comorbidities including HIV, COPD, osteoarthritis, who presents for worsening depression and attempted SI by fentanyl overdose in the face of psychosocial stressors, homelessness and sons terminal cancer diagnosis, relapse with substance abuse. Patient reports that he was overall doing okay, good mood and till the past 2 years when he became homeless after his father did not hair at the mobile home. Since the onset of homelessness, patient has also undergone several losses, including his sister who about 2 years ago and now his son's worsening siddiqi with cancer. Patient says he has been taking his medications regularly throughout and he has been sober for the past 2 years. However the depression has recently mounted, he has been feeling guilty, with intermittent thoughts that his is his fault his son has cancer, no appetite, diminished interest, low energy, and with a burgeoning SI. This past week he relapsed and used opiates and cocaine and became suicidal and attempted to overdose. His friend gave him Narcan and called 911. Patient reports ongoing flashbacks to past trauma; he is unsure if he has bipolar disorder and is only able to reference some vague, possibly hypomanic episodes. No AVH; minimal alcohol abuse; SI resolved and patient looking for treatment Past Psychiatric History: Past psychiatric hospitalizations History of ECT 2019 Multiple medication trials Medical Evaluation Reviewed: Yes [facility] Medical History (Updated 04/19/23 @ 16:48 by Omari Lobo MD) Cocaine abuse Colitis COPD (chronic obstructive pulmonary disease) Hepatitis C HIV infection Hypertension IBS (irritable bowel syndrome) MDD (major depressive disorder), recurrent severe, without psychosis Opioid abuse Opioid dependence Osteoarthritis of both hips Prediabetes PTSD (post-traumatic stress disorder) Surgical History History of right hip replacement Status post right shoulder hemiarthroplasty Family History: Sister: Bipolar disorder Social History: Raised his kids and [facility] 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 After his father , lost access to the mobile home and has been homeless for the past 2 years Substance History: Opioid and cocaine abuse; sober for the past 2 years Trauma History: Childhood trauma Diagnostics Vital Signs (24Hr): Vital Signs - 24 hr 04/18/23 11:09 04/18/23 13:50 04/18/23 14:00 Temperature 97.9 F Pulse Rate 77 74 74 Respiratory Rate 15 17 13 Blood Pressure 121/67 135/76 Pulse Oximetry 97 92 93 Oxygen Delivery Method Room Air Room Air Room Air 04/18/23 22:45 Temperature 97 F Pulse Rate 60 Respiratory Rate 18 Blood Pressure 144/74 H Pulse Oximetry 98 Oxygen Delivery Method Room Air BMI result Body Mass Index 28.2 Labs 04/18/23 09:39 04/18/23 09:39 Labs: Laboratory Results - last 48 hr 04/18/23 04/18/23 04/18/23 09:39 09:39 09:39 WBC 17.9 H RBC 4.05 L Hgb 13.3 L Hct 39.1 L MCV 96.5 MCH 32.8 MCHC 34.0 RDW 14.1 Plt Count 242 MPV 10.4 Immature Gran % (Auto) 0.6 H Neut % (Auto) 79.4 H Lymph % (Auto) 12.1 L [place] % (Auto) 6.9 Eos % (Auto) 0.4 Baso % (Auto) 0.6 Lymph # (Auto) 2.2 [place] # (Auto) 1.2 Eos # (Auto) 0.1 Baso # (Auto) 0.1 Abs Immat Gran (auto) 0.11 H Absolute Neuts (auto) 14.2 H Absolute Nucleated RBC 0.000 Nucleated RBC % (auto) 0.0 Sodium 134 L Potassium 3.8 D Chloride 100 Carbon Dioxide 25 Anion Gap 13 BUN 13 Creatinine 0.96 Estim Creat Clear Calc 98.2 Estimated GFR > 60 Random Glucose 60 Calcium 8.8 Total Bilirubin 1.6 H AST 82 H ALT 49 H Alkaline Phosphatase 178 H Total Protein 7.5 Albumin 3.5 Urine Color Urine Appearance Urine pH Ur Specific [place] Urine Protein Urine Glucose (UA) Urine Ketones Urine Blood Urine Nitrite Ur Leukocyte Esterase Urine Opiates Screen Not Detected Urine Fentanyl Screen POSITIVE H Ur Barbiturates Screen Not Detected Ur Phencyclidine Scrn Not Detected Ur Amphetamines Screen Not Detected U Benzodiazepines Scrn Not Detected Urine Cocaine Screen POSITIVE H U Marijuana (THC) Screen Not Detected COVID-19 ([facility]) COVID-19 Clin Com 04/18/23 04/18/23 09:39 14:00 WBC RBC Hgb Hct MCV MCH MCHC RDW Plt Count MPV Immature Gran % (Auto) Neut % (Auto) Lymph % (Auto) [place] % (Auto) Eos % (Auto) Baso % (Auto) Lymph # (Auto) [place] # (Auto) Eos # (Auto) Baso # (Auto) Abs Immat Gran (auto) Absolute Neuts (auto) Absolute Nucleated RBC Nucleated RBC % (auto) Sodium Potassium Chloride Carbon Dioxide Anion Gap BUN Creatinine Estim Creat Clear Calc Estimated GFR Random Glucose Calcium Total Bilirubin AST ALT Alkaline Phosphatase Total Protein Albumin Urine Color Yellow Urine Appearance Clear Urine pH 6.0 Ur Specific [place] <= 1.005 Urine Protein Negative Urine Glucose (UA) Negative Urine Ketones Negative Urine Blood Negative Urine Nitrite Negative Ur Leukocyte Esterase Negative Urine Opiates Screen Urine Fentanyl Screen Ur Barbiturates Screen Ur Phencyclidine Scrn Ur Amphetamines Screen U Benzodiazepines Scrn Urine Cocaine Screen U Marijuana (THC) Screen COVID-19 ([facility]) Negative COVID-19 Clin Com See Note Imaging Radiology Impressions: ITS Impressions Foot X-Ray 04/18/23 10:08 IMPRESSION: Unremarkable right foot. Sacrum and Coccyx X-Ray 04/18/23 10:08 IMPRESSION: 1. Generalized osteopenia. No acute fracture. 2. L5-S1 mild degenerative disc disease. Bilateral hip hardware appears intact. Meds/Allergies Meds Home Medications Medication Instructions Recorded Confirmed Type bictegravir 50 mg-emtricitabine 1 tab PO DAILY 09/04/20 04/18/23 History 200 mg-tenofovir alafenam 25 mg tablet (Biktarvy) gabapentin 800 mg tablet 800 mg PO TID 09/04/20 04/18/23 History quetiapine 300 mg tablet 300 mg PO BEDTIME 09/04/20 04/18/23 History buspirone 15 mg tablet 15 mg PO BID 09/07/22 04/18/23 History omeprazole 40 mg capsule,delayed 1 cap PO DAILY@0630 09/07/22 04/18/23 History release buspirone 10 mg tablet 10 mg PO BID 12/08/22 04/18/23 History fluticasone furoate 100 1 puff inhalation DAILY 12/08/22 04/18/23 History mcg-vilanterol 25 mcg/dose inhalation powder (Breo Ellipta) bupropion HCl 150 mg tablet,12 hr 150 mg PO BID 04/18/23 04/18/23 History sustained-release cyclobenzaprine 10 mg tablet 10 mg PO Q8H PRN Muscle Spasm 04/18/23 04/18/23 History Allergies Allergies Allergy/AdvReac Type Severity Reaction Status Date / Time ketorolac [From Toradol] AdvReac Itching Verified 02/28/23 14:51 Mental Status Exam Mental Status Exam Narrative: Pt is alert and oriented; behavior is cooperative, friendly, tearful; patient is not in distress; dressed in casual attire, a bit unkempt but with adequate hygiene; mood is described as depressed and affect congruent, downcast, tearful; eye contact appropriate; Speech is normal rate, volume and prosody and not pressured; psychomotor retardation present; thought process is organized and goal directed; Thought content is on guilty feelings, sons terminal illness, wrongs he has endured; tx; otherwise pertinent to relevant topics and without any delusional content, paranoid ideations or grandiosity; intermittent SI; no HI. There is no evidence of perceptual disturbance. Patients insight and judgment impaired Assessment & Plan Assessment & Plan (1) MDD (major depressive disorder), recurrent severe, without psychosis: Status: Acute Code(s): F33.2 - Major depressive disorder, recurrent severe without psychotic features (2) PTSD (post-traumatic stress disorder): Status: Acute Code(s): F43.10 - Post-traumatic stress disorder, unspecified (3) Cocaine abuse: Status: Acute Code(s): F14.10 - Cocaine abuse, uncomplicated (4) Opioid dependence: Status: Acute Code(s): F11.20 - Opioid dependence, uncomplicated Plan Patient is a 58-year-old male with history of depression, PTSD, substance abuse and other medical comorbidities including HIV, COPD, osteoarthritis, who presents for worsening depression and attempted SI by fentanyl overdose in the face of psychosocial stressors, homelessness and sons terminal cancer diagnosis, relapse with substance abuse. -significant psychosocial stressors resulting had an worsening depression SI. Patient looking for treatment and help with coping with depression so that he can be present to help his son. Also looking for help with housing -will continue home medication regimen for now which he has been on for years; has a history of ECT which will consider -bipolar disorder seems less likely; patient could not give a clear example of an actual hypomanic/manic episode for diagnosis, however policy writer understands history is obscured by substance abuse; he may benefit from mood stabilizer. That said patient is facing significant psychosocial stressors that may be little effected by additional medication management Plan: CV Q 15 minute checks Wellbutrin XL 150 b.i.d.; normally on SR; says is not tolerate higher doses of extended release Gabapentin 800 mg t.i.d.; for chronic neuropathic pain BuSpar 25 mg b.i.d. Methadone 70 mg daily Seroquel 300 mg q.h.s.; does not tolerate higher doses Consider ECT Consider mood stabilizer Patient educated on: diagnosis, medication risk/benefits, substance abuse and medical condition Informed Consent: understands Reason for continued inpatient stay Substantial Risk for: rapid decompensation Statement Statement: I have reviewed the history and physical and performed a pertinent examination on my patient. No changes have occurred unless specified. If the History and Physical was not performed prior to admission, the Hospitalist's service will be consulted for completing the admission physical. Time Spent With Patient Time: Total time managing care of this patient today ____ minutes.
[2023-04-19] MEDS: Gabapentin 400 MG CAPSULE 800 MG PO ×3 (09:34→20:58)
[2023-04-19 09:35] LABS: Estimated Average Glucose 91 mg/dL; Hemoglobin A1c % 4.8 %
[2023-04-19] MEDS: Nicotine 21 MG PATCH.TD24 TRANSDERMA (09:35)
[2023-04-19 09:36] LABS: Cholesterol 106 mg/dL; HDL Cholesterol 35 mg/dL; LDL Cholesterol Calculated 58 mg/dl; Triglycerides 67 mg/dL
[2023-04-19 10:05] LABS: MANUAL DIFF FLAG NO
[2023-04-19 10:08] LABS: Basophils Absolute Auto 0.1 X10*3/uL (0.0-0.2); Basophils Percent Auto 0.7 % (0-2); Eosinophils Absolute Auto 0.2 X10*3/uL (0.0-0.4); Eosinophils Percent Auto 1.6 % (0-4); Hematocrit 41.5 % (42.0-52.0); Hemoglobin 14.3 g/dl (14.0-18.0); Imm Gran Abs Auto 0.05 X10*3/uL (0.00-0.03); Imm Gran Pct Auto 0.5 % (0.0-0.4); Lymphocytes Absolute Auto 1.3 X10*3/uL (1.2-4.9); Lymphocytes Percent Auto 13.2 % (20-40); Mean Corpuscular HGB Conc 34.5 g/dl (31.0-36.0); Mean Corpuscular Hemoglobin 33.3 pg (27.0-33.0); Mean Corpuscular Volume 96.5 fL (80.0-98.0); Mean Platelet Volume 11.1 fL (9.4-12.4); Monocytes Absolute Auto 0.8 X10*3/uL (0.1-1.2); Monocytes Percent Auto 8.3 % (2-11); Neutrophils Absolute Auto 7.6 x10*3/uL (2.0-8.3); Neutrophils Percent Auto 75.7 % (45-73); Platelet Count 217 X10*3/uL (160-400); Red Cell Distribution Width 14.3 % (11.0-16.0)
[2023-04-19] MEDS: Fluticasone/Vilanterol 100/25 BLST.W.DEV 1 PUFF INHALE (10:46)
[2023-04-19 20:45] VITALS: BP 138/68; PULSE 77; TEMP 36.4; O2SAT 100
[2023-04-19] MEDS: Cyclobenzaprine HCl 10 MG TABLET PO (20:58)
[2023-04-19] MEDS: hydrOXYzine HCL 25 MG TABLET PO (20:58)
[2023-04-19] MEDS: Acetaminophen 325 MG TABLET 650 MG PO (20:58)
[2023-04-19] MEDS: QUEtiapine Fumarate 300 MG TABLET PO (20:58)
--- NOTE | 2023-04-20 | ECG_ITS ---
Test Reason : ECT Blood Pressure : / mmHG Vent. Rate : 068 BPM Atrial Rate : 068 BPM P-R Int : 136 ms QRS Dur : 076 ms QT Int : 390 ms P-R-T Axes : 043 061 034 degrees QTc Int : 414 ms Normal sinus rhythm Nonspecific ST abnormality Abnormal ECG When compared with ECG of 18-APR-2023 14:17, T wave inversion no longer evident in Anterolateral leads Referred By: Omari Lobo Electronically Signed By:ANGELI FERRARI MD
[2023-04-20] MEDS: Nicotine 21 MG PATCH.TD24 TRANSDERMA (08:46)
[2023-04-20] MEDS: buPROPion HCl XL 150 MG TAB.ER.24H PO ×2 (08:47→13:50)
[2023-04-20] MEDS: busPIRone HCl 5 MG TABLET 25 MG PO ×2 (08:47→13:50)
[2023-04-20] MEDS: methADONE HCl 20 MG/2 ML ORAL.CONC 70 MG PO (08:47)
[2023-04-20] MEDS: Gabapentin 400 MG CAPSULE 800 MG PO ×3 (08:47→20:36)
[2023-04-20] MEDS: Omeprazole 40 MG CAPSULE.DR PO (08:48)
[2023-04-20] MEDS: Bictegrav/Emtricit/Tenofov Ala TABLET 1 TAB PO (08:48)
[2023-04-20] MEDS: Fluticasone/Vilanterol 100/25 BLST.W.DEV 1 PUFF INHALE (08:48)
--- NOTE | 2023-04-20 09:35 | HO.PSYCHPN ---
Subjective Subjective Date of Service: 04/20/23 Reason For Visit: SI Interim History: Met with patient; discussed with team; discussed with Dr. Dill Patient remains depressed. Discussed medication management and he agrees to Wellbutrin XL 150 t.i.d.; he has tried XL before and does not tolerate the 300 mg all at once in the morning but would like to have an increased dose to address his depression. Also discussed ECT. Dealer Relationship Manager explained how with some depression, the kind that is situational like dealing with a in the family, ECT is not very effective; tech writer asked patient to see if he can discern whether or not his current depression is situational or more organic. Patient said he thinks it is both. He also said that the depression is flaring up his PTSD symptoms from childhood trauma and that the last time he had ECT, his PTSD symptoms were also well resolved. Discussed the need to reduce gabapentin which patient agrees with Mental Status Exam Mental Status Exam Narrative: Pt is alert and oriented; behavior is cooperative, friendly, calm; patient is not in distress; dressed in casual attire, a bit unkempt but with adequate hygiene; mood is described as depressed and affect congruent, downcast; eye contact appropriate; Speech is normal rate, volume and prosody and not pressured; psychomotor retardation present; thought process is organized and goal directed; Thought content is on guilty feelings, sons terminal illness, wrongs he has endured; tx; otherwise pertinent to relevant topics and without any delusional content, paranoid ideations or grandiosity; intermittent SI; no HI. There is no evidence of perceptual disturbance. Patients insight and judgment impaired Diagnostics Vital Signs (24Hr): Vital Signs - 24 hr 04/19/23 20:45 Temperature 97.5 F Pulse Rate 77 Blood Pressure 138/68 Pulse Oximetry 100 Oxygen Delivery Method Room Air BMI result Body Mass Index 28.2 Labs 04/19/23 09:15 04/18/23 09:39 Labs: Laboratory Results - last 48 hr 04/18/23 04/18/23 04/18/23 09:39 09:39 09:39 WBC 17.9 H RBC 4.05 L Hgb 13.3 L Hct 39.1 L MCV 96.5 MCH 32.8 MCHC 34.0 RDW 14.1 Plt Count 242 MPV 10.4 Immature Gran % (Auto) 0.6 H Neut % (Auto) 79.4 H Lymph % (Auto) 12.1 L [place] % (Auto) 6.9 Eos % (Auto) 0.4 Baso % (Auto) 0.6 Lymph # (Auto) 2.2 [place] # (Auto) 1.2 Eos # (Auto) 0.1 Baso # (Auto) 0.1 Abs Immat Gran (auto) 0.11 H Absolute Neuts (auto) 14.2 H Absolute Nucleated RBC 0.000 Nucleated RBC % (auto) 0.0 Sodium 134 L Potassium 3.8 D Chloride 100 Carbon Dioxide 25 Anion Gap 13 BUN 13 Creatinine 0.96 Estim Creat Clear Calc 98.2 Estimated GFR > 60 Random Glucose 60 Estimat Average Glucose Hemoglobin A1c % Calcium 8.8 Total Bilirubin 1.6 H AST 82 H ALT 49 H Alkaline Phosphatase 178 H Total Protein 7.5 Albumin 3.5 Triglycerides Cholesterol LDL Cholesterol, Calc HDL Cholesterol Urine Color Urine Appearance Urine pH Ur Specific [place] Urine Protein Urine Glucose (UA) Urine Ketones Urine Blood Urine Nitrite Ur Leukocyte Esterase Urine Opiates Screen Not Detected Urine Fentanyl Screen POSITIVE H Ur Barbiturates Screen Not Detected Ur Phencyclidine Scrn Not Detected Ur Amphetamines Screen Not Detected U Benzodiazepines Scrn Not Detected Urine Cocaine Screen POSITIVE H U Marijuana (THC) Screen Not Detected COVID-19 ([facility]) COVID-19 Clin Com 04/18/23 04/18/23 04/19/23 09:39 14:00 09:15 WBC RBC Hgb Hct MCV MCH MCHC RDW Plt Count MPV Immature Gran % (Auto) Neut % (Auto) Lymph % (Auto) [place] % (Auto) Eos % (Auto) Baso % (Auto) Lymph # (Auto) [place] # (Auto) Eos # (Auto) Baso # (Auto) Abs Immat Gran (auto) Absolute Neuts (auto) Absolute Nucleated RBC Nucleated RBC % (auto) Sodium Potassium Chloride Carbon Dioxide Anion Gap BUN Creatinine Estim Creat Clear Calc Estimated GFR Random Glucose Estimat Average Glucose 91 Hemoglobin A1c % 4.8 Calcium Total Bilirubin AST ALT Alkaline Phosphatase Total Protein Albumin Triglycerides Cholesterol LDL Cholesterol, Calc HDL Cholesterol Urine Color Yellow Urine Appearance Clear Urine pH 6.0 Ur Specific [place] <= 1.005 Urine Protein Negative Urine Glucose (UA) Negative Urine Ketones Negative Urine Blood Negative Urine Nitrite Negative Ur Leukocyte Esterase Negative Urine Opiates Screen Urine Fentanyl Screen Ur Barbiturates Screen Ur Phencyclidine Scrn Ur Amphetamines Screen U Benzodiazepines Scrn Urine Cocaine Screen U Marijuana (THC) Screen COVID-19 ([facility]) Negative COVID-19 Clin Com See Note 04/19/23 04/19/23 09:15 09:15 WBC 10.0 RBC 4.30 L Hgb 14.3 Hct 41.5 L MCV 96.5 MCH 33.3 H MCHC 34.5 RDW 14.3 Plt Count 217 MPV 11.1 Immature Gran % (Auto) 0.5 H Neut % (Auto) 75.7 H Lymph % (Auto) 13.2 L [place] % (Auto) 8.3 Eos % (Auto) 1.6 Baso % (Auto) 0.7 Lymph # (Auto) 1.3 [place] # (Auto) 0.8 Eos # (Auto) 0.2 Baso # (Auto) 0.1 Abs Immat Gran (auto) 0.05 H Absolute Neuts (auto) 7.6 Absolute Nucleated RBC 0.000 Nucleated RBC % (auto) 0.0 Sodium Potassium Chloride Carbon Dioxide Anion Gap BUN Creatinine Estim Creat Clear Calc Estimated GFR Random Glucose Estimat Average Glucose Hemoglobin A1c % Calcium Total Bilirubin AST ALT Alkaline Phosphatase Total Protein Albumin Triglycerides 67 Cholesterol 106 LDL Cholesterol, Calc 58 HDL Cholesterol 35 Urine Color Urine Appearance Urine pH Ur Specific [place] Urine Protein Urine Glucose (UA) Urine Ketones Urine Blood Urine Nitrite Ur Leukocyte Esterase Urine Opiates Screen Urine Fentanyl Screen Ur Barbiturates Screen Ur Phencyclidine Scrn Ur Amphetamines Screen U Benzodiazepines Scrn Urine Cocaine Screen U Marijuana (THC) Screen COVID-19 ([facility]) COVID-19 Clin Com Imaging Radiology Impressions: ITS Impressions Foot X-Ray 04/18/23 10:08 IMPRESSION: Unremarkable right foot. Sacrum and Coccyx X-Ray 04/18/23 10:08 IMPRESSION: 1. Generalized osteopenia. No acute fracture. 2. L5-S1 mild degenerative disc disease. Bilateral hip hardware appears intact. Medications Medications Current Medications Acetaminophen (Acetaminophen 325 Mg Tablet) 650 mg PO Q6H PRN PRN Reason: Headache/Pain Mild Scale (1-3) Last Admin: 04/19/23 20:58 Dose: 650 mg Al Hydroxide/Mg Hydroxide (Magnesium Hydrox/Alum Hydrox 30 Ml Oral.Susp) 30 ml PO Q6H PRN PRN Reason: Heartburn/Nausea Bictegravir/Emtricitabine/Tenofovir (Bictegrav/Emtricit/Tenofov Ala Tablet) 1 tab PO DAILY [facility] Last Admin: 04/20/23 08:48 Dose: 1 tab Bupropion HCl (Bupropion Hcl Xl 150 Mg Tab.Er.24h) 150 mg PO BID@0900,1400 [facility] Last Admin: 04/20/23 08:47 Dose: 150 mg Buspirone HCl (Buspirone Hcl 5 Mg Tablet) 25 mg PO BID@0900,1400 [facility] Last Admin: 04/20/23 08:47 Dose: 25 mg Cyclobenzaprine HCl (Cyclobenzaprine Hcl 10 Mg Tablet) 10 mg PO Q8H PRN PRN Reason: Muscle Spasm Last Admin: 04/19/23 20:58 Dose: 10 mg Fluticasone/Vilanterol (Fluticasone/Vilanterol 100/25 Blst.W.Dev) 1 puff INHALE RDAILY [facility] Last Admin: 04/20/23 08:48 Dose: 1 puff Gabapentin (Gabapentin 400 Mg Capsule) 800 mg PO TID [facility] Last Admin: 04/20/23 08:47 Dose: 800 mg Hydroxyzine HCl (Hydroxyzine Hcl 25 Mg Tablet) 25 mg PO Q6H PRN PRN Reason: Anxiety Last Admin: 04/19/23 20:58 Dose: 25 mg Magnesium Hydroxide (Milk Of Magnesia 30 Ml Oral.Susp) 30 ml PO DAILY PRN PRN Reason: Constipation Methadone HCl (Methadone Hcl 20 Mg/2 Ml Oral.Conc) 70 mg PO DAILY [facility] Last Admin: 04/20/23 08:47 Dose: 70 mg Nicotine (Nicotine 21 Mg Patch.Td24) 21 mg TRANSDERMA DAILY [facility] Last Admin: 04/20/23 08:46 Dose: 21 mg Nicotine Polacrilex (Nicotine Polacrilex 2 Mg Gum) 4 mg BUCCAL Q2H PRN PRN Reason: Nicotine Cravings Olanzapine (Olanzapine 5 Mg Tablet) 5 mg PO TID PRN PRN Reason: agitation Omeprazole (Omeprazole 40 Mg Capsule.Dr) 40 mg PO DAILY@0630 [facility] Last Admin: 04/20/23 08:48 Dose: 40 mg Quetiapine Fumarate (Quetiapine Fumarate 300 Mg Tablet) 300 mg PO BEDTIME [facility] Last Admin: 04/19/23 20:58 Dose: 300 mg Trazodone HCl (Trazodone Hcl 50 Mg Tablet) 50 mg PO BEDTIME MRX1 PRN PRN Reason: Insomnia Allergies Allergies Allergy/AdvReac Type Severity Reaction Status Date / Time ketorolac [From Toradol] AdvReac Itching Verified 02/28/23 14:51 Assessment & Plan Assessment & Plan (1) MDD (major depressive disorder), recurrent severe, without psychosis: Status: Acute Code(s): F33.2 - Major depressive disorder, recurrent severe without psychotic features (2) PTSD (post-traumatic stress disorder): Status: Acute Code(s): F43.10 - Post-traumatic stress disorder, unspecified (3) Cocaine abuse: Status: Acute Code(s): F14.10 - Cocaine abuse, uncomplicated (4) Opioid dependence: Status: Acute Code(s): F11.20 - Opioid dependence, uncomplicated Plan Patient is a 58-year-old male with history of depression, PTSD, substance abuse and other medical comorbidities including HIV, COPD, osteoarthritis, who presents for worsening depression and attempted SI by fentanyl overdose in the face of psychosocial stressors, homelessness and sons terminal cancer diagnosis, relapse with substance abuse. -significant psychosocial stressors resulting had an worsening depression SI. Patient looking for treatment and help with coping with depression so that he can be present to help his son. Also looking for help with housing -will continue home medication regimen for now which he has been on for years; has a history of ECT which will consider -bipolar disorder seems less likely; patient could not give a clear example of an actual hypomanic/manic episode for diagnosis, however tech writer understands history is obscured by substance abuse; he may benefit from mood stabilizer. That said patient is facing significant psychosocial stressors that may be little effected by additional medication management Hospital course: 04/20 patient remains depressed; interested in ECT which he reports has helped him in the past. Dealer Relationship Manager spoke with Dr. Dill and review chart which indicate patient did have a positive response. Patient also agrees to lowering gabapentin as needed so that it will not interfere with ECT. Dr. Dill agrees to ECT consult and will meet with patient tomorrow to further assess. In the meantime will increase Wellbutrin Plan: CV Q 15 minute checks Will increase Wellbutrin XL 150 t.i.d.; patient cannot tolerate taking extended-release all at once in the morning however wants help with depression; will try t.i.d. dosing (though this is not typical dosing for XL) Gabapentin 800 mg t.i.d.; for chronic neuropathic pain BuSpar 25 mg b.i.d. Methadone 70 mg daily Seroquel 300 mg q.h.s.; does not tolerate higher doses Consider ECT Consider mood stabilizer Patient educated on: diagnosis and medication risk/benefits Informed Consent: understands Reason for continued inpatient stay Substantial Risk for: rapid decompensation Time Spent With Patient Time: Total time managing care of this patient today ____ minutes.
[2023-04-20 10:50] VITALS: BP 135/84; PULSE 72; RESP 16; TEMP 36.4; O2SAT 100
[2023-04-20] MEDS: Acetaminophen 325 MG TABLET 650 MG PO ×2 (14:15→20:36)
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
[2023-04-20 20:20] VITALS: BP 117/66; PULSE 77; TEMP 36; O2SAT 100
[2023-04-20] MEDS: QUEtiapine Fumarate 300 MG TABLET PO (20:38)
[2023-04-20] MEDS: Cyclobenzaprine HCl 10 MG TABLET PO (20:38)
[2023-04-20] MEDS: hydrOXYzine HCL 25 MG TABLET PO (20:39)
[2023-04-21] MEDS: Omeprazole 40 MG CAPSULE.DR PO (05:36)
[2023-04-21 08:00] VITALS: BP 138/86; PULSE 71; RESP 16; TEMP 36.1; O2SAT 98
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
[2023-04-21] MEDS: Gabapentin 400 MG CAPSULE 800 MG PO (08:36)
[2023-04-21] MEDS: Fluticasone/Vilanterol 100/25 BLST.W.DEV 1 PUFF INHALE (08:36)
[2023-04-21] MEDS: methADONE HCl 20 MG/2 ML ORAL.CONC 70 MG PO (08:36)
[2023-04-21] MEDS: busPIRone HCl 5 MG TABLET 25 MG PO ×2 (08:37→14:10)
[2023-04-21] MEDS: Bictegrav/Emtricit/Tenofov Ala TABLET 1 TAB PO (08:37)
[2023-04-21] MEDS: Nicotine 21 MG PATCH.TD24 TRANSDERMA (08:37)
[2023-04-21] MEDS: buPROPion HCl XL 150 MG TAB.ER.24H PO ×3 (08:37→16:32)
[2023-04-21] MEDS: Gabapentin 300 MG CAPSULE 600 MG PO ×2 (14:10→19:33)
[2023-04-21] MEDS: Acetaminophen 325 MG TABLET 650 MG PO (16:32)
[2023-04-21] MEDS: Milk of Magnesia 30 ML ORAL.SUSP PO (17:37)
[2023-04-21 18:43] VITALS: BP 147/69; PULSE 73; TEMP 36.9
[2023-04-21] MEDS: QUEtiapine Fumarate 300 MG TABLET PO (19:33)
[2023-04-21] MEDS: hydrOXYzine HCL 25 MG TABLET PO (19:33)
[2023-04-21] MEDS: Cyclobenzaprine HCl 10 MG TABLET PO (19:33)
[2023-04-22] MEDS: Omeprazole 40 MG CAPSULE.DR PO (06:14)
[2023-04-22] MEDS: Milk of Magnesia 30 ML ORAL.SUSP PO (08:35)
[2023-04-22 08:48] VITALS: BP 104/75; PULSE 89; RESP 18; TEMP 36; O2SAT 99
[2023-04-22] MEDS: Nicotine 21 MG PATCH.TD24 TRANSDERMA (08:52)
[2023-04-22] MEDS: buPROPion HCl XL 150 MG TAB.ER.24H PO ×3 (08:52→17:00)
[2023-04-22] MEDS: Bictegrav/Emtricit/Tenofov Ala TABLET 1 TAB PO (08:52)
[2023-04-22] MEDS: Gabapentin 300 MG CAPSULE 600 MG PO ×3 (08:52→19:47)
[2023-04-22] MEDS: busPIRone HCl 5 MG TABLET 25 MG PO ×2 (08:52→14:07)
[2023-04-22] MEDS: methADONE HCl 20 MG/2 ML ORAL.CONC 70 MG PO (08:53)
--- NOTE | 2023-04-22 11:34 | HO.PSYCHPN ---
Subjective Subjective Date of Service: 04/22/23 Reason For Visit: SI Subjective Notes: Conditional Voluntary Healthcare Proxy: No Guardianship: No Medical Problems Affecting Mental Status: No Interim History: Patient was seen and discussed in rounds today. Records and plans were reviewed. He is going to be starting ECT treatment on Monday. He continues to be isolative, anxious and depressed. He is also having a lot of constipation and I will add Colace 100 mg b.i.d.. He did get Mag citrate last night with slight benefit. No other changes Medication Compliance: Yes (Were made) Side effects from medications: Yes (Constipation) Attending Groups: Yes Review of Systems Review of Systems Constipation Yes all other systems are reviewed and are negative Mental Status Exam Mental Status Exam Patient Appearance: Unkempt Patient Orientation: Person, Place, Time and Situation Level of Consciousness: Awake and Appropriate Patient Behavior: Appropriate and Cooperative Mood Description: Depressed, Blunted and Apprehensive Affect Description: Appropriate and Constricted Patient Cognition Impaired: No Ability to Follow Directions: Good Speech Pattern: Clear Memory Description: Intact Hallucinations: None Delusions: Not Present Thought Process: Intact and Goal Oriented Thought Content: positive for Goal Oriented, positive for Preoccupation, positive for Suicidal Ideation (Thoughts he might be better off ) and negative for Homicidal Ideation Depressive Symptoms: Increased Anxiety, Increased Irritability, Feelings of Worthlessness, Hopelessness, Increased Fatigue, Thoughts of /Suicide, Loss of Energy and Difficulty Concentrating Judgement: Good Judgement and Insight: Patient not knows and understands he needs structure after discharge. He did feel ECT 2019 help with both depressive symptoms and PTSD Diagnostics Vital Signs (24Hr): Vital Signs - 24 hr 04/21/23 18:43 04/22/23 08:48 Temperature 98.4 F 96.8 F Pulse Rate 73 89 Respiratory Rate 18 Blood Pressure 147/69 H 104/75 Pulse Oximetry 99 Oxygen Delivery Method Room Air BMI result Body Mass Index 28.2 Labs 04/19/23 09:15 04/18/23 09:39 Imaging Radiology Impressions: ITS Impressions Foot X-Ray 04/18/23 10:08 IMPRESSION: Unremarkable right foot. Sacrum and Coccyx X-Ray 04/18/23 10:08 IMPRESSION: 1. Generalized osteopenia. No acute fracture. 2. L5-S1 mild degenerative disc disease. Bilateral hip hardware appears intact. Medications Medications Current Medications Acetaminophen (Acetaminophen 325 Mg Tablet) 650 mg PO Q6H PRN PRN Reason: Headache/Pain Mild Scale (1-3) Last Admin: 04/21/23 16:32 Dose: 650 mg Al Hydroxide/Mg Hydroxide (Magnesium Hydrox/Alum Hydrox 30 Ml Oral.Susp) 30 ml PO Q6H PRN PRN Reason: Heartburn/Nausea Bictegravir/Emtricitabine/Tenofovir (Bictegrav/Emtricit/Tenofov Ala Tablet) 1 tab PO DAILY [facility] Last Admin: 04/22/23 08:52 Dose: 1 tab Bupropion HCl (Bupropion Hcl Xl 150 Mg Tab.Er.24h) 150 mg PO TID@0900,1200,1700 [facility] Last Admin: 04/22/23 08:52 Dose: 150 mg Buspirone HCl (Buspirone Hcl 5 Mg Tablet) 25 mg PO BID@0900,1400 [facility] Last Admin: 04/22/23 08:52 Dose: 25 mg Cyclobenzaprine HCl (Cyclobenzaprine Hcl 10 Mg Tablet) 10 mg PO Q8H PRN PRN Reason: Muscle Spasm Last Admin: 04/21/23 19:33 Dose: 10 mg Fluticasone/Vilanterol (Fluticasone/Vilanterol 100/25 Blst.W.Dev) 1 puff INHALE RDAILY [facility] Last Admin: 04/21/23 08:36 Dose: 1 puff Gabapentin (Gabapentin 300 Mg Capsule) 600 mg PO TID [facility] Last Admin: 04/22/23 08:52 Dose: 600 mg Hydroxyzine HCl (Hydroxyzine Hcl 25 Mg Tablet) 25 mg PO Q6H PRN PRN Reason: Anxiety Last Admin: 04/21/23 19:33 Dose: 25 mg Magnesium Hydroxide (Milk Of Magnesia 30 Ml Oral.Susp) 30 ml PO DAILY PRN PRN Reason: Constipation Last Admin: 04/22/23 08:35 Dose: 30 ml Methadone HCl (Methadone Hcl 20 Mg/2 Ml Oral.Conc) 70 mg PO DAILY [facility] Last Admin: 04/22/23 08:53 Dose: 70 mg Nicotine (Nicotine 21 Mg Patch.Td24) 21 mg TRANSDERMA DAILY [facility] Last Admin: 04/22/23 08:52 Dose: 21 mg Nicotine Polacrilex (Nicotine Polacrilex 2 Mg Gum) 4 mg BUCCAL Q2H PRN PRN Reason: Nicotine Cravings Olanzapine (Olanzapine 5 Mg Tablet) 5 mg PO TID PRN PRN Reason: agitation Omeprazole (Omeprazole 40 Mg Capsule.) 40 mg PO DAILY@0630 [facility] Last Admin: 04/22/23 06:14 Dose: 40 mg Quetiapine Fumarate (Quetiapine Fumarate 300 Mg Tablet) 300 mg PO BEDTIME [facility] Last Admin: 04/21/23 19:33 Dose: 300 mg Trazodone HCl (Trazodone Hcl 50 Mg Tablet) 50 mg PO BEDTIME MRX1 PRN PRN Reason: Insomnia Allergies Allergies Allergy/AdvReac Type Severity Reaction Status Date / Time ketorolac [From Toradol] AdvReac Itching Verified 02/28/23 14:51 Assessment & Plan Assessment & Plan (1) Pre-op evaluation: Status: Acute Code(s): Z01.818 - Encounter for other preprocedural examination Plan Patient is a 58-year-old male with a PMH significant for alcohol use disorder, hx of bilateral hip replacement, hepatitis-C, colitis, COPD, HTN, HIV, and depression who is admitted to for worsening depression and attempted SI by overdose. Medical consult for ECT clearance. Patient states that he underwent 6 ECT treatments a couple of years ago and they ?made a big difference?. Experienced a mild headache but no other adverse effects. Mood disorder Plan as per psychiatry ECT There are no apparent contraindications for the planned procedure Thank you for allowing us to participate in the care of this patient. Signing off at this time. Please let us know if there are any acute complaints or questions. 04/22: Continue current regimen and plans. Add Colace 100 mg b.i.d. Guardian/Caregiver educated on: medication risk/benefits and therapeutic strategies Reason for continued inpatient stay Substantial Risk for: med/psych decompensation Time Spent With Patient Time: Total time managing care of this patient today ____ minutes.
[2023-04-22] MEDS: Docusate Sodium 100 MG CAPSULE PO (14:07)
[2023-04-22] MEDS: Fluticasone/Vilanterol 100/25 BLST.W.DEV 1 PUFF INHALE (14:11)
[2023-04-22] MEDS: Acetaminophen 325 MG TABLET 650 MG PO (17:00)
[2023-04-22 17:53] VITALS: BP 152/70; PULSE 74; RESP 18; TEMP 36.2; O2SAT 99
[2023-04-22] MEDS: QUEtiapine Fumarate 300 MG TABLET PO (19:46)
[2023-04-22] MEDS: Cyclobenzaprine HCl 10 MG TABLET PO (19:46)
[2023-04-22] MEDS: hydrOXYzine HCL 25 MG TABLET PO (19:48)
[2023-04-23] MEDS: Acetaminophen 325 MG TABLET 650 MG PO ×2 (06:21→15:07)
[2023-04-23] MEDS: Omeprazole 40 MG CAPSULE.DR PO (06:22)
[2023-04-23 08:24] VITALS: BP 134/73; PULSE 68; RESP 18; TEMP 36.2; O2SAT 97
[2023-04-23] MEDS: Gabapentin 300 MG CAPSULE 600 MG PO ×3 (08:25→19:28)
[2023-04-23] MEDS: Bictegrav/Emtricit/Tenofov Ala TABLET 1 TAB PO (08:25)
[2023-04-23] MEDS: buPROPion HCl XL 150 MG TAB.ER.24H PO ×3 (08:25→16:43)
[2023-04-23] MEDS: busPIRone HCl 5 MG TABLET 25 MG PO ×2 (08:25→15:07)
[2023-04-23] MEDS: Nicotine 21 MG PATCH.TD24 TRANSDERMA (08:26)
[2023-04-23] MEDS: methADONE HCl 20 MG/2 ML ORAL.CONC 70 MG PO (08:26)
[2023-04-23] MEDS: Fluticasone/Vilanterol 100/25 BLST.W.DEV 1 PUFF INHALE (08:32)
--- NOTE | 2023-04-23 10:17 | P.PNPSI_ITS ---
Subjective Subjective Date of Service: 04/23/23 Reason For Visit: SI Subjective Notes: Conditional Voluntary Healthcare Proxy: No Guardianship: No Medical Problems Affecting Mental Status: No Interim History: Patient was seen and discussed in rounds today. Records and plans were reviewed. He has been visible in continues to struggle with depression and anxiety. He continues to have wishes of not being around and his looking forward to the ECT treatment. He is using his PRNs with good effect. Eating and sleeping well. No changes were made today. Medication Compliance: Yes (Were made) Side effects from medications: Yes (Constipation) Attending Groups: Yes Review of Systems Review of Systems Yes all other systems are reviewed and are negative Mental Status Exam Mental Status Exam Patient Appearance: Unkempt Patient Orientation: Person, Place, Time and Situation Level of Consciousness: Awake and Appropriate Patient Behavior: Appropriate and Cooperative Mood Description: Depressed, Blunted and Apprehensive Affect Description: Appropriate and Constricted Patient Cognition Impaired: No Ability to Follow Directions: Good Speech Pattern: Clear Memory Description: Intact Hallucinations: None Delusions: Not Present Thought Process: Intact and Goal Oriented Thought Content: positive for Goal Oriented, positive for Preoccupation, positive for Suicidal Ideation (Thoughts he might be better off ) and negative for Homicidal Ideation Depressive Symptoms: Increased Anxiety, Increased Irritability, Feelings of Worthlessness, Hopelessness, Increased Fatigue, Thoughts of /Suicide, Loss of Energy and Difficulty Concentrating Judgement: Good Judgement and Insight: Patient not knows and understands he needs structure after discharge. He did feel ECT 2019 help with both depressive symptoms and PTSD Diagnostics Vital Signs (24Hr): Vital Signs - 24 hr 04/22/23 17:53 04/23/23 08:24 Temperature 97.1 F 97.2 F Pulse Rate 74 68 Respiratory Rate 18 18 Blood Pressure 152/70 H 134/73 Pulse Oximetry 99 97 Oxygen Delivery Method Room Air Room Air BMI result Body Mass Index 28.2 Labs 04/19/23 09:15 04/18/23 09:39 Imaging Radiology Impressions: ITS Impressions Foot X-Ray 04/18/23 10:08 IMPRESSION: Unremarkable right foot. Sacrum and Coccyx X-Ray 04/18/23 10:08 IMPRESSION: 1. Generalized osteopenia. No acute fracture. 2. L5-S1 mild degenerative disc disease. Bilateral hip hardware appears intact. Medications Medications Current Medications Acetaminophen (Acetaminophen 325 Mg Tablet) 650 mg PO Q6H PRN PRN Reason: Headache/Pain Mild Scale (1-3) Last Admin: 04/23/23 06:21 Dose: 650 mg Al Hydroxide/Mg Hydroxide (Magnesium Hydrox/Alum Hydrox 30 Ml Oral.Susp) 30 ml PO Q6H PRN PRN Reason: Heartburn/Nausea Bictegravir/Emtricitabine/Tenofovir (Bictegrav/Emtricit/Tenofov Ala Tablet) 1 tab PO DAILY [facility] Last Admin: 04/23/23 08:25 Dose: 1 tab Bupropion HCl (Bupropion Hcl Xl 150 Mg Tab.Er.24h) 150 mg PO TID@0900,1200,1700 [facility] Last Admin: 04/23/23 08:25 Dose: 150 mg Buspirone HCl (Buspirone Hcl 5 Mg Tablet) 25 mg PO BID@0900,1400 [facility] Last Admin: 04/23/23 08:25 Dose: 25 mg Cyclobenzaprine HCl (Cyclobenzaprine Hcl 10 Mg Tablet) 10 mg PO Q8H PRN PRN Reason: Muscle Spasm Last Admin: 04/22/23 19:46 Dose: 10 mg Docusate Sodium (Docusate Sodium 100 Mg Capsule) 100 mg PO BID PRN PRN Reason: Constipation Last Admin: 04/22/23 14:07 Dose: 100 mg Fluticasone/Vilanterol (Fluticasone/Vilanterol 100/25 Blst.W.Dev) 1 puff INHALE RDAILY [facility] Last Admin: 04/23/23 08:32 Dose: 1 puff Gabapentin (Gabapentin 300 Mg Capsule) 600 mg PO TID [facility] Last Admin: 04/23/23 08:25 Dose: 600 mg Hydroxyzine HCl (Hydroxyzine Hcl 25 Mg Tablet) 25 mg PO Q6H PRN PRN Reason: Anxiety Last Admin: 04/22/23 19:48 Dose: 25 mg Magnesium Hydroxide (Milk Of Magnesia 30 Ml Oral.Susp) 30 ml PO DAILY PRN PRN Reason: Constipation Last Admin: 04/22/23 08:35 Dose: 30 ml Methadone HCl (Methadone Hcl 20 Mg/2 Ml Oral.Conc) 70 mg PO DAILY [facility] Last Admin: 04/23/23 08:26 Dose: 70 mg Nicotine (Nicotine 21 Mg Patch.Td24) 21 mg TRANSDERMA DAILY [facility] Last Admin: 04/23/23 08:26 Dose: 21 mg Nicotine Polacrilex (Nicotine Polacrilex 2 Mg Gum) 4 mg BUCCAL Q2H PRN PRN Reason: Nicotine Cravings Olanzapine (Olanzapine 5 Mg Tablet) 5 mg PO TID PRN PRN Reason: agitation Omeprazole (Omeprazole 40 Mg Capsule.Dr) 40 mg PO DAILY@0630 [facility] Last Admin: 04/23/23 06:22 Dose: 40 mg Quetiapine Fumarate (Quetiapine Fumarate 300 Mg Tablet) 300 mg PO BEDTIME [facility] Last Admin: 04/22/23 19:46 Dose: 300 mg Trazodone HCl (Trazodone Hcl 50 Mg Tablet) 50 mg PO BEDTIME MRX1 PRN PRN Reason: Insomnia Allergies Allergies Allergy/AdvReac Type Severity Reaction Status Date / Time ketorolac [From Toradol] AdvReac Itching Verified 02/28/23 14:51 Assessment & Plan Assessment & Plan (1) Pre-op evaluation: Status: Acute Code(s): Z01.818 - Encounter for other preprocedural examination Plan Patient is a 58-year-old male with a PMH significant for alcohol use disorder, hx of bilateral hip replacement, hepatitis-C, colitis, COPD, HTN, HIV, and depression who is admitted to for worsening depression and attempted SI by overdose. Medical consult for ECT clearance. Patient states that he underwent 6 ECT treatments a couple of years ago and they ?made a big difference?. Experienced a mild headache but no other adverse effects. Mood disorder Plan as per psychiatry ECT There are no apparent contraindications for the planned procedure Thank you for allowing us to participate in the care of this patient. Signing off at this time. Please let us know if there are any acute complaints or questions. 04/22: Continue current regimen and plans. Add Colace 100 mg b.i.d. 04/23: Continue current plans and regimen Reason for continued inpatient stay Substantial Risk for: med/psych decompensation Time Spent With Patient Time: Total time managing care of this patient today ____ minutes.
[2023-04-23] MEDS: Docusate Sodium 100 MG CAPSULE PO (16:56)
[2023-04-23] MEDS: Milk of Magnesia 30 ML ORAL.SUSP PO (16:56)
[2023-04-23 18:00] VITALS: BP 135/71; PULSE 74; TEMP 36.7; O2SAT 95
[2023-04-23] MEDS: Cyclobenzaprine HCl 10 MG TABLET PO (19:28)
[2023-04-23] MEDS: QUEtiapine Fumarate 300 MG TABLET PO (19:29)
[2023-04-23] MEDS: hydrOXYzine HCL 25 MG TABLET PO (19:29)
--- NOTE | 2023-04-23 19:42 | PC.NURSE ---
this nurse gave patient gabapentin 600mg on 04/23/23. pt has ECT on 04/24/23. MD patent prosecution paralegal notified.
[2023-04-24] VITALS (9 sets, daily range): BP systolic 115–172; BP diastolic 55–97; PULSE 64–93; RESP 12–18; TEMP 35.7–36.6; O2SAT 96–100
--- NOTE | 2023-04-24 07:35 | MHC.SHP ---
Pre-Procedural Eval Section A Date of Service: 04/24/23 The patient is an INPATIENT: Yes Changes since office visit: Yes New Medical Problems, Yes Changes in Medication and Yes Patient answered all questions; No Cold of Flu in the past 2 weeks The History & Physical has been completed within 30 days and I have reviewed it.: Yes Section B Chief Complaint: SI Allergies: Allergies Allergy/AdvReac Type Severity Reaction Status Date / Time ketorolac [From Toradol] AdvReac Itching Verified 02/28/23 14:51 Plan I have reviewed the history and physical and performed a pertinent physical examination on my patient. No changes have occurred unless specified. Time Spent With Patient Time: Total time managing care of this patient today ____ minutes.
--- NOTE | 2023-04-24 07:41 | MHC.SHP ---
Pre-Procedural Eval Section A Date of Service: 04/24/23 Section B Chief Complaint: SI Allergies: Allergies Allergy/AdvReac Type Severity Reaction Status Date / Time ketorolac [From Toradol] AdvReac Itching Verified 02/28/23 14:51 Plan I have reviewed the history and physical and performed a pertinent physical examination on my patient. No changes have occurred unless specified. Time Spent With Patient Time: Total time managing care of this patient today ____ minutes.
--- NOTE | 2023-04-24 08:03 | HO.ECTPROC ---
ECT Procedure Note Diagnosis/Treatment Date of Service: 04/25/23 Diagnosis: Major Depressive Disorder Current Treatment Number: 1 Treatment: Series Interval Clinical Notes: Patient with history of good response to ECT no acute contraindications tolerated ECT previously Time: Total time managing care of this patient today ____ minutes. ECT Settings Device: THYMATRON DGx Electrode Placement: Bifrontal Program/Pulse Width: 0.25 Energy Percent: 100 Seizure Duration By EEG (in seconds): 38 Medications Administration General Anesthetic: Methohexital (120) Muscle Relaxant: Succinylcholine (100) Ancillary Medications Analgesics: Torodol - Pre ECT Anti-emetics: Zofran - Pre ECT Miscillaneous Medications: Propofol (30) Airway Management Airway Management: Bag Mask Ventilation Treatment Recommendations Notes: given esmolol 20 mg tachycardia ? flutter anesthesia recommends iv metoprolol will ck vs tid
[2023-04-24] MEDS: busPIRone HCl 5 MG TABLET 25 MG PO ×2 (09:24→14:15)
[2023-04-24] MEDS: Gabapentin 300 MG CAPSULE 600 MG PO ×3 (09:25→19:33)
[2023-04-24] MEDS: methADONE HCl 20 MG/2 ML ORAL.CONC 70 MG PO (09:25)
[2023-04-24] MEDS: Omeprazole 40 MG CAPSULE.DR PO (09:25)
[2023-04-24] MEDS: Nicotine 21 MG PATCH.TD24 TRANSDERMA (09:26)
[2023-04-24] MEDS: Fluticasone/Vilanterol 100/25 BLST.W.DEV 1 PUFF INHALE (09:26)
[2023-04-24] MEDS: buPROPion HCl XL 150 MG TAB.ER.24H PO ×3 (09:27→16:55)
[2023-04-24] MEDS: Bictegrav/Emtricit/Tenofov Ala TABLET 1 TAB PO (09:27)
[2023-04-24] MEDS: Acetaminophen 325 MG TABLET 650 MG PO ×2 (09:31→16:54)
--- NOTE | 2023-04-24 10:21 | P.PNPSI_ITS ---
Subjective Subjective Date of Service: 04/24/23 Reason For Visit: SI Interim History: Met with patient; discussed with team Patient reports ECT when fine, has a headache that resolved with Tylenol; says he feels tired and wiped out from it but he appreciates it. He thinks increased Wellbutrin is helping and he says he is getting more hopeful. Patient says he wants to be there for his son when it is time for him to Mental Status Exam Mental Status Exam Narrative: Pt is alert and oriented; behavior is cooperative, friendly, calm; patient is not in distress; dressed in casual attire, a bit unkempt but with adequate hygiene; mood is described as depressed...little better and affect congruent, downcast; eye contact appropriate; Speech is normal rate, volume and prosody and not pressured; psychomotor retardation present; thought process is organized and goal directed; Thought content is on getting better to be there for to help his son during terminal illness; tx; otherwise pertinent to relevant topics and without any delusional content, paranoid ideations or grandiosity; intermittent SI; no HI. There is no evidence of perceptual disturbance. Patients insight and judgment impaired but improving Diagnostics Vital Signs (24Hr): Vital Signs - 24 hr 04/23/23 18:00 04/24/23 06:19 04/24/23 06:34 Temperature 98.0 F 97.5 F 97.3 F Pulse Rate 74 68 64 Respiratory Rate 16 16 Blood Pressure 135/71 120/70 149/80 H Pulse Oximetry 95 100 98 Oxygen Delivery Method Room Air Room Air Oxygen Flow Rate 04/24/23 08:08 04/24/23 08:13 04/24/23 08:18 Temperature 98 F Pulse Rate 93 92 87 Respiratory Rate 14 14 12 Blood Pressure 172/97 H 127/88 136/85 Pulse Oximetry 99 97 96 Oxygen Delivery Method Nasal Cannula Room Air Room Air Oxygen Flow Rate 3 04/24/23 08:23 04/24/23 08:38 04/24/23 09:08 Temperature 98 F 97.2 F Pulse Rate 83 77 77 Respiratory Rate 12 16 18 Blood Pressure 131/87 133/84 122/73 Pulse Oximetry 96 96 96 Oxygen Delivery Method Room Air Room Air Oxygen Flow Rate BMI result Body Mass Index 28.2 Labs 04/19/23 09:15 04/18/23 09:39 Imaging Radiology Impressions: ITS Impressions Foot X-Ray 04/18/23 10:08 IMPRESSION: Unremarkable right foot. Sacrum and Coccyx X-Ray 04/18/23 10:08 IMPRESSION: 1. Generalized osteopenia. No acute fracture. 2. L5-S1 mild degenerative disc disease. Bilateral hip hardware appears intact. Medications Medications Current Medications Acetaminophen (Acetaminophen 325 Mg Tablet) 650 mg PO Q6H PRN PRN Reason: Headache/Pain Mild Scale (1-3) Last Admin: 04/24/23 09:31 Dose: 650 mg Al Hydroxide/Mg Hydroxide (Magnesium Hydrox/Alum Hydrox 30 Ml Oral.Susp) 30 ml PO Q6H PRN PRN Reason: Heartburn/Nausea Bictegravir/Emtricitabine/Tenofovir (Bictegrav/Emtricit/Tenofov Ala Tablet) 1 tab PO DAILY [facility] Last Admin: 04/24/23 09:27 Dose: 1 tab Bupropion HCl (Bupropion Hcl Xl 150 Mg Tab.Er.24h) 150 mg PO TID@0900,1200,1700 [facility] Last Admin: 04/24/23 09:27 Dose: 150 mg Buspirone HCl (Buspirone Hcl 5 Mg Tablet) 25 mg PO BID@0900,1400 [facility] Last Admin: 04/24/23 09:24 Dose: 25 mg Cyclobenzaprine HCl (Cyclobenzaprine Hcl 10 Mg Tablet) 10 mg PO Q8H PRN PRN Reason: Muscle Spasm Last Admin: 04/23/23 19:28 Dose: 10 mg Docusate Sodium (Docusate Sodium 100 Mg Capsule) 100 mg PO BID PRN PRN Reason: Constipation Last Admin: 04/23/23 16:56 Dose: 100 mg Fluticasone/Vilanterol (Fluticasone/Vilanterol 100/25 Blst.W.Dev) 1 puff INHALE RDAILY [facility] Last Admin: 04/24/23 09:26 Dose: 1 puff Gabapentin (Gabapentin 300 Mg Capsule) 600 mg PO TID [facility] Last Admin: 04/24/23 09:25 Dose: 600 mg Hydroxyzine HCl (Hydroxyzine Hcl 25 Mg Tablet) 25 mg PO Q6H PRN PRN Reason: Anxiety Last Admin: 04/23/23 19:29 Dose: 25 mg Lactated Ringer's (Lr) 1,000 mls @ 50 mls/hr IVCONT .Q20H [facility] Last Admin: 04/24/23 09:49 Dose: Not Given Magnesium Hydroxide (Milk Of Magnesia 30 Ml Oral.Susp) 30 ml PO DAILY PRN PRN Reason: Constipation Last Admin: 04/23/23 16:56 Dose: 30 ml Methadone HCl (Methadone Hcl 20 Mg/2 Ml Oral.Conc) 70 mg PO DAILY [facility] Last Admin: 04/24/23 09:25 Dose: 70 mg Nicotine (Nicotine 21 Mg Patch.Td24) 21 mg TRANSDERMA DAILY [facility] Last Admin: 04/24/23 09:26 Dose: 21 mg Nicotine Polacrilex (Nicotine Polacrilex 2 Mg Gum) 4 mg BUCCAL Q2H PRN PRN Reason: Nicotine Cravings Olanzapine (Olanzapine 5 Mg Tablet) 5 mg PO TID PRN PRN Reason: agitation Omeprazole (Omeprazole 40 Mg Capsule.Dr) 40 mg PO DAILY@0630 [facility] Last Admin: 04/24/23 09:25 Dose: 40 mg Quetiapine Fumarate (Quetiapine Fumarate 300 Mg Tablet) 300 mg PO BEDTIME [facility] Last Admin: 04/23/23 19:29 Dose: 300 mg Trazodone HCl (Trazodone Hcl 50 Mg Tablet) 50 mg PO BEDTIME MRX1 PRN PRN Reason: Insomnia Allergies Allergies Allergy/AdvReac Type Severity Reaction Status Date / Time ketorolac [From Toradol] AdvReac Itching Verified 02/28/23 14:51 Assessment & Plan Assessment & Plan (1) Pre-op evaluation: Status: Acute Code(s): Z01.818 - Encounter for other preprocedural examination Plan Patient is a 58-year-old male with history of depression, PTSD, substance abuse and other medical comorbidities including HIV,? COPD, osteoarthritis, who presents for worsening depression and attempted SI by fentanyl overdose in the face of psychosocial stressors, homelessness and sons terminal cancer diagnosis, relapse with substance abuse. -significant psychosocial stressors resulting had an worsening depression SI.? Patient looking for treatment and help with coping with depression so that he can be present to help his son.? Also looking for help with housing -will continue home medication regimen for now which he has been on for years; has a history of ECT which will consider -bipolar disorder seems less likely; patient could not give a clear example of an actual hypomanic/manic episode for diagnosis, however sports writer understands history is obscured by substance abuse; he may benefit from mood stabilizer.? That said patient is facing significant psychosocial stressors that may be little effected by additional medication management Hospital course: 04/20 patient remains depressed; interested in ECT which he reports has helped him in the past.? Extension Clerk spoke with Dr. Dill and review chart which indicate patient did have a positive response.? Patient also agrees to lowering gabapentin as needed so that it will not interfere with ECT.? Dr. Dill agrees to ECT consult and will meet with patient tomorrow to further assess.? In the meantime will increase Wellbutrin 04/21/2023 Patient has a history of chronic dysphoria and PTSD worsening over the past 6 months.? Obviously this is contributed to by multiple factors including his son dying of terminal cancer multiple medical issues.? Patient normally stabilized on methadone he did make a suicide attempt and has been increasingly despairing difficulty functioning helpless hopeless despondent.? Frequent flashbacks nightmare patient did have a good response to ECT in 2018 with good benefit that helped both depression and PTSD symptoms patient has had a number of failed medication trials would benefit from ECT for acute depressive symptoms and PTSD acute symptoms and would benefit from more intensive Outpatient step-down as available monitor LFTs and ammonia hospital consult for medical evaluation pre ECT check labs in EKG case reviewed with Dr. Lobo 04/24 tolerated ECT; some increasing hopefulness; tolerating medications well. Continue with treatment plan ECT trial: ECT #1 04/24 ECT #2 pending 04/26; NPO Plan: CV Q 15 minute checks adding ibuprofen at pt request for muscle soreness post ect Continue Wellbutrin XL 150 t.i.d.; patient cannot tolerate taking extended-rel ease all at once in the morning however wants help with depression; will try t.i.d. dosing (though this is not typical dosing for XL) Lower to Gabapentin 600 mg t.i.d. since getting ECT; hold nighttime dose prior to ECT BuSpar 25 mg b.i.d. Methadone 70 mg daily Seroquel 300 mg q.h.s.; does not tolerate higher doses Consider mood stabilizer Patient educated on: diagnosis, medication risk/benefits and ECT Informed Consent: understands Reason for continued inpatient stay Substantial Risk for: rapid decompensation Time Spent With Patient Time: Total time managing care of this patient today ____ minutes.
[2023-04-24 11:01] LABS: Ammonia 26 umol/L (13-55)
[2023-04-24 11:09] LABS: Alanine Aminotransferase 60 U/L (0-40); Albumin Level 3.2 g/dL (3.5-5.0); Alkaline Phosphatase 243 U/L (39-117); Aspartate Amino Transferase 88 U/L (5-37); Bilirubin Direct 0.4 mg/dL (0.0-0.5); Bilirubin Total 0.6 mg/dL (0.0-1.0)
[2023-04-24] MEDS: Milk of Magnesia 30 ML ORAL.SUSP PO (18:38)
[2023-04-24] MEDS: Cyclobenzaprine HCl 10 MG TABLET PO (19:34)
[2023-04-24] MEDS: QUEtiapine Fumarate 300 MG TABLET PO (19:36)
[2023-04-24] MEDS: hydrOXYzine HCL 25 MG TABLET PO (19:38)
[2023-04-25] MEDS: Cyclobenzaprine HCl 10 MG TABLET PO ×2 (04:09→15:43)
[2023-04-25] MEDS: Acetaminophen 325 MG TABLET 650 MG PO (04:11)
[2023-04-25] MEDS: Omeprazole 40 MG CAPSULE.DR PO (05:38)
[2023-04-25] MEDS: Docusate Sodium 100 MG CAPSULE PO ×2 (05:38→19:32)
[2023-04-25] MEDS: Fluticasone/Vilanterol 100/25 BLST.W.DEV 1 PUFF INHALE (08:01)
[2023-04-25] MEDS: buPROPion HCl XL 150 MG TAB.ER.24H PO ×3 (08:03→16:51)
[2023-04-25] MEDS: Gabapentin 300 MG CAPSULE 600 MG PO ×2 (08:03→14:16)
[2023-04-25] MEDS: busPIRone HCl 5 MG TABLET 25 MG PO ×2 (08:03→14:16)
[2023-04-25] MEDS: Bictegrav/Emtricit/Tenofov Ala TABLET 1 TAB PO (08:03)
[2023-04-25] MEDS: methADONE HCl 20 MG/2 ML ORAL.CONC 70 MG PO (08:05)
[2023-04-25 08:20] VITALS: BP 125/70; PULSE 70; RESP 16; TEMP 36.1; O2SAT 97
[2023-04-25] MEDS: Nicotine 21 MG PATCH.TD24 TRANSDERMA (08:20)
[2023-04-25] MEDS: Sodium Phosphate,Mono-Dibasic 133 ML ENEMA PR (09:34)
[2023-04-25] MEDS: Milk of Magnesia 30 ML ORAL.SUSP PO (15:37)
[2023-04-25] MEDS: Ibuprofen 600 MG TABLET PO (15:44)
[2023-04-25 15:45] VITALS: BP 110/74; PULSE 71; TEMP 35.7
--- NOTE | 2023-04-25 16:45 | P.PNPSI_ITS ---
Subjective Subjective Date of Service: 04/25/23 Reason For Visit: SI Interim History: Met with patient; discussed with team Patient reports that he still depressed but is still hopeful and grateful for getting ECT. He said he was particularly feeling depressed this morning, thinking about his son with terminal illness, however high acuity moment on the unit snapped amount of this depression which he was thankful for. Like to continue with ECT. Mental Status Exam Mental Status Exam Narrative: Pt is alert and oriented; behavior is cooperative, friendly, calm; patient is not in distress; dressed in casual attire, a bit unkempt but with adequate hygiene; mood is described as depressed...little better and affect congruent, downcast; eye contact appropriate; Speech is normal rate, volume and prosody and not pressured; psychomotor retardation present; thought process is organized and goal directed; Thought content is on getting better to be there for to help his son during terminal illness; tx; otherwise pertinent to relevant topics and without any delusional content, paranoid ideations or grandiosity; intermittent SI; no HI. There is no evidence of perceptual disturbance. Patients insight and judgment impaired but improving Diagnostics Vital Signs (24Hr): Vital Signs - 24 hr 04/24/23 17:55 04/25/23 08:20 Temperature 96.3 F L 97 F Pulse Rate 68 70 Respiratory Rate 16 Blood Pressure 115/55 L 125/70 Pulse Oximetry 97 Oxygen Delivery Method Room Air BMI result Body Mass Index 28.2 Labs 04/19/23 09:15 04/18/23 09:39 Labs: Laboratory Results - last 48 hr 04/24/23 04/24/23 10:25 10:25 Total Bilirubin 0.6 Direct Bilirubin 0.4 AST 88 H ALT 60 H Alkaline Phosphatase 243 H Ammonia 26 Total Protein 7.0 Albumin 3.2 L Imaging Radiology Impressions: ITS Impressions Foot X-Ray 04/18/23 10:08 IMPRESSION: Unremarkable right foot. Sacrum and Coccyx X-Ray 04/18/23 10:08 IMPRESSION: 1. Generalized osteopenia. No acute fracture. 2. L5-S1 mild degenerative disc disease. Bilateral hip hardware appears intact. Medications Medications Current Medications Acetaminophen (Acetaminophen 325 Mg Tablet) 650 mg PO Q6H PRN PRN Reason: Headache/Pain Mild Scale (1-3) Last Admin: 04/25/23 04:11 Dose: 650 mg Al Hydroxide/Mg Hydroxide (Magnesium Hydrox/Alum Hydrox 30 Ml Oral.Susp) 30 ml PO Q6H PRN PRN Reason: Heartburn/Nausea Bictegravir/Emtricitabine/Tenofovir (Bictegrav/Emtricit/Tenofov Ala Tablet) 1 tab PO DAILY [facility] Last Admin: 04/25/23 08:03 Dose: 1 tab Bupropion HCl (Bupropion Hcl Xl 150 Mg Tab.Er.24h) 150 mg PO TID@0900,1200,1700 [facility] Last Admin: 04/25/23 11:15 Dose: 150 mg Buspirone HCl (Buspirone Hcl 5 Mg Tablet) 25 mg PO BID@0900,1400 [facility] Last Admin: 04/25/23 14:16 Dose: 25 mg Cyclobenzaprine HCl (Cyclobenzaprine Hcl 10 Mg Tablet) 10 mg PO Q8H PRN PRN Reason: Muscle Spasm Last Admin: 04/25/23 15:43 Dose: 10 mg Docusate Sodium (Docusate Sodium 100 Mg Capsule) 100 mg PO BID [facility] Fluticasone/Vilanterol (Fluticasone/Vilanterol 100/25 Blst.W.Dev) 1 puff INHALE RDAILY [facility] Last Admin: 04/25/23 08:01 Dose: 1 puff Gabapentin (Gabapentin 300 Mg Capsule) 600 mg PO TID [facility] Last Admin: 04/25/23 15:41 Dose: Not Given Hydroxyzine HCl (Hydroxyzine Hcl 25 Mg Tablet) 25 mg PO Q6H PRN PRN Reason: Anxiety Last Admin: 04/24/23 19:38 Dose: 25 mg Ibuprofen (Ibuprofen 600 Mg Tablet) 600 mg PO QID PRN PRN Reason: mild pain Last Admin: 04/25/23 15:44 Dose: 600 mg Magnesium Hydroxide (Milk Of Magnesia 30 Ml Oral.Susp) 30 ml PO DAILY PRN PRN Reason: Constipation Last Admin: 04/25/23 15:37 Dose: 30 ml Methadone HCl (Methadone Hcl 20 Mg/2 Ml Oral.Conc) 70 mg PO DAILY [facility] Last Admin: 04/25/23 08:05 Dose: 70 mg Nicotine (Nicotine 21 Mg Patch.Td24) 21 mg TRANSDERMA DAILY [facility] Last Admin: 04/25/23 08:20 Dose: 21 mg Nicotine Polacrilex (Nicotine Polacrilex 2 Mg Gum) 4 mg BUCCAL Q2H PRN PRN Reason: Nicotine Cravings Omeprazole (Omeprazole 40 Mg Maria Ines.) 40 mg PO DAILY@0630 [facility] Last Admin: 04/25/23 05:38 Dose: 40 mg Psyllium Hydrophilic Mucilloid (Psyllium Seed 3.4 Gm Powd.Pack) 3.4 gm PO DAILY PRN PRN Reason: Constipation Quetiapine Fumarate (Quetiapine Fumarate 300 Mg Tablet) 300 mg PO BEDTIME [facility] Last Admin: 04/24/23 19:36 Dose: 300 mg Sodium Biphosphate/Sodium Phosphate (Sodium Phosphate,Collier-Dibasic 133 Ml Enema) 133 ml IN ONCE PRN PRN Reason: Constipation Last Admin: 04/25/23 09:34 Dose: 133 ml Trazodone HCl (Trazodone Hcl 50 Mg Tablet) 50 mg PO BEDTIME MRX1 PRN PRN Reason: Insomnia Allergies Allergies Allergy/AdvReac Type Severity Reaction Status Date / Time ketorolac [From Toradol] AdvReac Itching Verified 02/28/23 14:51 Assessment & Plan Assessment & Plan (1) Pre-op evaluation: Status: Acute Code(s): Z01.818 - Encounter for other preprocedural examination Plan Patient is a 58-year-old male with history of depression, PTSD, substance abuse and other medical comorbidities including HIV,? COPD, osteoarthritis, who presents for worsening depression and attempted SI by fentanyl overdose in the face of psychosocial stressors, homelessness and sons terminal cancer diagnosis, relapse with substance abuse. -significant psychosocial stressors resulting had an worsening depression SI.? Patient looking for treatment and help with coping with depression so that he can be present to help his son.? 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 That said patient is facing significant psychosocial stressors that may be little effected by additional medication management Hospital course: 04/20 patient remains depressed; interested in ECT which he reports has helped him in the past.? Radar Technician spoke with Dr. Dill and review chart which indicate patient did have a positive response.? Patient also agrees to lowering gabapentin as needed so that it will not interfere with ECT.? Dr. Dill agrees to ECT consult and will meet with patient tomorrow to further assess.? In the meantime will increase Wellbutrin 04/21/2023 Patient has a history of chronic dysphoria and PTSD worsening over the past 6 months.? Obviously this is contributed to by multiple factors including his son dying of terminal cancer multiple medical issues.? Patient normally stabilized on methadone he did make a suicide attempt and has been increasingly despairing difficulty functioning helpless hopeless despondent.? Frequent flashbacks nightmare patient did have a good response to ECT in 2019 with good benefit that helped both depression and PTSD symptoms patient has had a number of failed medication trials would benefit from ECT for acute depressive symptoms and PTSD acute symptoms and would benefit from more intensive Outpatient step-down as available monitor LFTs and ammonia hospital consult for medical evaluation pre ECT check labs in EKG case reviewed with Dr. Lobo 04/24 tolerated ECT; some increasing hopefulness; tolerating medications well. Continue with treatment plan 04/25 same presentation; wants to continue with ECT ECT trial: ECT #1 04/24 ECT #2 pending 04/26; NPO Plan: CV Q 15 minute checks adding ibuprofen at pt request for muscle soreness post ect Continue Wellbutrin XL 150 t.i.d.; patient cannot tolerate taking extended- release all at once in the morning however wants help with depression; will try t.i.d. dosing (though this is not typical dosing for XL) Lower to Gabapentin 600 mg t.i.d. since getting ECT; hold nighttime dose prior to ECT BuSpar 25 mg b.i.d. Methadone 70 mg daily Seroquel 300 mg q.h.s.; does not tolerate higher doses Consider mood stabilizer Patient educated on: diagnosis, medication risk/benefits and ECT Informed Consent: understands Reason for continued inpatient stay Substantial Risk for: rapid decompensation Time Spent With Patient Time: Total time managing care of this patient today ____ minutes.
[2023-04-25] MEDS: QUEtiapine Fumarate 300 MG TABLET PO (19:29)
[2023-04-26] VITALS (9 sets, daily range): BP systolic 118–172; BP diastolic 61–86; PULSE 56–84; RESP 13–16; TEMP 36–36.7; O2SAT 96–97
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
--- NOTE | 2023-04-26 07:40 | MHC.SHP ---
Pre-Procedural Eval Section A Date of Service: 04/26/23 The patient is an INPATIENT: Yes Changes since office visit: No Cold of Flu in the past 2 weeks, No New Medical Problems, No Changes in Medication and No Patient answered all questions The History & Physical has been completed within 30 days and I have reviewed it.: Yes Section B Chief Complaint: SI Allergies: Allergies Allergy/AdvReac Type Severity Reaction Status Date / Time ketorolac [From Toradol] AdvReac Itching Verified 02/28/23 14:51 Plan I have reviewed the history and physical and performed a pertinent physical examination on my patient. No changes have occurred unless specified. Time Spent With Patient Time: Total time managing care of this patient today ____ minutes.
--- NOTE | 2023-04-26 07:40 | HO.ECTPROC ---
ECT Procedure Note Diagnosis/Treatment Date of Service: 04/26/23 Diagnosis: Major Depressive Disorder Previous ECT Date: 04/24/23 Current Treatment Number: 2 Treatment: Series Interval Clinical Notes: The patient reports dysphoria, no major changes on mood. He admitted some headache after the procedure. His first ECT was 19s and now we increased the Flumazenil up to 30 mg. Time: Total time managing care of this patient today __30__ minutes. ECT Settings Device: THYMATRON DGx Electrode Placement: Bifrontal Program/Pulse Width: 0.25 Energy Percent: 100 Seizure Duration By EEG (in seconds): 18 By Motor Observation (in seconds): 0 Medications Administration General Anesthetic: Methohexital (120) Muscle Relaxant: Succinylcholine (100) Ancillary Medications Analgesics: Torodol - Pre ECT Anti-emetics: Zofran - Pre ECT Miscillaneous Medications: Propofol Treatment Recommendations Electrode Placement: Bifrontal Program/Pulse Width: 0.50 Energy Percent: 100 Notes: 2nd short ECT with a very short seizure. No change with the increase of Flumazenil. Probably we should taper off Gabapentin Pt Tolerated Procedure w/o Issue: Yes
[2023-04-26] MEDS: Acetaminophen 325 MG TABLET 650 MG PO (08:18)
[2023-04-26] MEDS: Fluticasone/Vilanterol 100/25 BLST.W.DEV 1 PUFF INHALE (08:53)
[2023-04-26] MEDS: buPROPion HCl XL 150 MG TAB.ER.24H PO ×3 (08:54→16:23)
[2023-04-26] MEDS: methADONE HCl 20 MG/2 ML ORAL.CONC 70 MG PO (08:54)
[2023-04-26] MEDS: busPIRone HCl 5 MG TABLET 25 MG PO ×2 (08:54→14:09)
[2023-04-26] MEDS: Docusate Sodium 100 MG CAPSULE PO ×2 (08:54→19:28)
[2023-04-26] MEDS: Omeprazole 40 MG CAPSULE.DR PO (08:54)
[2023-04-26] MEDS: Bictegrav/Emtricit/Tenofov Ala TABLET 1 TAB PO (08:54)
[2023-04-26] MEDS: Gabapentin 300 MG CAPSULE 600 MG PO (08:54)
[2023-04-26] MEDS: Nicotine 21 MG PATCH.TD24 TRANSDERMA (08:55)
--- NOTE | 2023-04-26 10:01 | P.PNPSI_ITS ---
Subjective Subjective Date of Service: 04/26/23 Reason For Visit: SI Interim History: met with patient; discussed with team Patient reports he is feeling depressed. He still hopeful ECT will kick in but is still feeling down; wants to continue with current treatment plan. Says gets muscle soreness following ECT. Shiatsu Therapist communicated this to Dr. Dill who will address Mental Status Exam Mental Status Exam Narrative: Pt is alert and oriented; behavior is cooperative, friendly, calm; patient is not in distress; dressed in casual attire, a bit unkempt but with adequate hygiene; mood is described as pretty down and affect congruent, downcast; eye contact appropriate; Speech is normal rate, volume and prosody and not pressured; psychomotor retardation present; thought process is organized and goal directed; Thought content is on getting better to be there for to help his son during terminal illness; tx; otherwise pertinent to relevant topics and without any delusional content, paranoid ideations or grandiosity; no SI; no HI. There is no evidence of perceptual disturbance. Patients insight and judgment impaired but improving Diagnostics Vital Signs (24Hr): Vital Signs - 24 hr 04/25/23 15:45 04/26/23 06:04 04/26/23 06:27 Temperature 96.3 F L 98 F 97.3 F Pulse Rate 71 56 65 Respiratory Rate 16 13 Blood Pressure 110/74 143/70 H 140/77 H Pulse Oximetry 96 Oxygen Delivery Method Room Air Oxygen Flow Rate 04/26/23 07:52 04/26/23 07:57 04/26/23 08:02 Temperature 98.1 F Pulse Rate 82 83 78 Respiratory Rate 14 16 13 Blood Pressure 172/85 H 149/86 H 125/77 Pulse Oximetry 96 96 96 Oxygen Delivery Method Nasal Cannula with ETCO2 Room Air Room Air Oxygen Flow Rate 1 04/26/23 08:07 04/26/23 08:22 04/26/23 08:59 Temperature 98.1 F 97.5 F Pulse Rate 72 66 84 Respiratory Rate 14 14 16 Blood Pressure 133/70 120/73 127/84 Pulse Oximetry 97 97 96 Oxygen Delivery Method Room Air Room Air Oxygen Flow Rate BMI result Body Mass Index 28.2 Labs 04/19/23 09:15 04/18/23 09:39 Labs: Laboratory Results - last 48 hr 04/24/23 04/24/23 10:25 10:25 Total Bilirubin 0.6 Direct Bilirubin 0.4 AST 88 H ALT 60 H Alkaline Phosphatase 243 H Ammonia 26 Total Protein 7.0 Albumin 3.2 L Imaging Radiology Impressions: ITS Impressions Foot X-Ray 04/18/23 10:08 IMPRESSION: Unremarkable right foot. Sacrum and Coccyx X-Ray 04/18/23 10:08 IMPRESSION: 1. Generalized osteopenia. No acute fracture. 2. L5-S1 mild degenerative disc disease. Bilateral hip hardware appears intact. Medications Medications Current Medications Acetaminophen (Acetaminophen 325 Mg Tablet) 650 mg PO Q6H PRN PRN Reason: Headache/Pain Mild Scale (1-3) Last Admin: 04/26/23 08:18 Dose: 650 mg Al Hydroxide/Mg Hydroxide (Magnesium Hydrox/Alum Hydrox 30 Ml Oral.Susp) 30 ml PO Q6H PRN PRN Reason: Heartburn/Nausea Bictegravir/Emtricitabine/Tenofovir (Bictegrav/Emtricit/Tenofov Ala Tablet) 1 tab PO DAILY [facility] Last Admin: 04/26/23 08:54 Dose: 1 tab Bupropion HCl (Bupropion Hcl Xl 150 Mg Tab.Er.24h) 150 mg PO TID@0900,1200,1700 [facility] Last Admin: 04/26/23 08:54 Dose: 150 mg Buspirone HCl (Buspirone Hcl 5 Mg Tablet) 25 mg PO BID@0900,1400 [facility] Last Admin: 04/26/23 08:54 Dose: 25 mg Cyclobenzaprine HCl (Cyclobenzaprine Hcl 10 Mg Tablet) 10 mg PO Q8H PRN PRN Reason: Muscle Spasm Last Admin: 04/25/23 15:43 Dose: 10 mg Docusate Sodium (Docusate Sodium 100 Mg Capsule) 100 mg PO BID [facility] Last Admin: 04/26/23 08:54 Dose: 100 mg Fluticasone/Vilanterol (Fluticasone/Vilanterol 100/25 Blst.W.Dev) 1 puff INHALE RDAILY [facility] Last Admin: 04/26/23 08:53 Dose: 1 puff Gabapentin (Gabapentin 300 Mg Capsule) 600 mg PO TID [facility] Last Admin: 04/26/23 08:54 Dose: 600 mg Hydroxyzine HCl (Hydroxyzine Hcl 25 Mg Tablet) 25 mg PO Q6H PRN PRN Reason: Anxiety Last Admin: 04/24/23 19:38 Dose: 25 mg Ibuprofen (Ibuprofen 600 Mg Tablet) 600 mg PO QID PRN PRN Reason: mild pain Last Admin: 04/25/23 15:44 Dose: 600 mg Magnesium Hydroxide (Milk Of Magnesia 30 Ml Oral.Susp) 30 ml PO DAILY PRN PRN Reason: Constipation Last Admin: 04/25/23 15:37 Dose: 30 ml Methadone HCl (Methadone Hcl 20 Mg/2 Ml Oral.Conc) 70 mg PO DAILY [facility] Last Admin: 04/26/23 08:54 Dose: 70 mg Nicotine (Nicotine 21 Mg Patch.Td24) 21 mg TRANSDERMA DAILY [facility] Last Admin: 04/26/23 08:55 Dose: 21 mg Nicotine Polacrilex (Nicotine Polacrilex 2 Mg Gum) 4 mg BUCCAL Q2H PRN PRN Reason: Nicotine Cravings Omeprazole (Omeprazole 40 Mg Capsule.Dr) 40 mg PO DAILY@0630 [facility] Last Admin: 04/26/23 08:54 Dose: 40 mg Psyllium Hydrophilic Mucilloid (Psyllium Seed 3.4 Gm Powd.Pack) 3.4 gm PO DAILY PRN PRN Reason: Constipation Quetiapine Fumarate (Quetiapine Fumarate 300 Mg Tablet) 300 mg PO BEDTIME [facility] Last Admin: 04/25/23 19:29 Dose: 300 mg Sodium Biphosphate/Sodium Phosphate (Sodium Phosphate,[place]-Dibasic 133 Ml Enema) 133 ml [place] ONCE PRN PRN Reason: Constipation Last Admin: 04/25/23 09:34 Dose: 133 ml Trazodone HCl (Trazodone Hcl 50 Mg Tablet) 50 mg PO BEDTIME MRX1 PRN PRN Reason: Insomnia Allergies Allergies Allergy/AdvReac Type Severity Reaction Status Date / Time ketorolac [From Toradol] AdvReac Itching Verified 02/28/23 14:51 Assessment & Plan Assessment & Plan (1) Pre-op evaluation: Status: Acute Code(s): Z01.818 - Encounter for other preprocedural examination Plan Patient is a 58-year-old male with history of depression, PTSD, substance abuse and other medical comorbidities including HIV,? COPD, osteoarthritis, who presents for worsening depression and attempted SI by fentanyl overdose in the face of psychosocial stressors, homelessness and sons terminal cancer diagnosis, relapse with substance abuse. -significant psychosocial stressors resulting had an worsening depression SI.? Patient looking for treatment and help with coping with depression so that he can be present to help his son.? Also looking for help with housing -will continue home medication regimen for now which he has been on for years; has a history of ECT which will consider -bipolar disorder seems less likely; patient could not give a clear example of an actual hypomanic/manic episode for diagnosis, however automobile service writer understands history is obscured by substance abuse; he may benefit from mood stabilizer.? That said patient is facing significant psychosocial stressors that may be lisbeth le effected by additional medication management Hospital course: 04/20 patient remains depressed; interested in ECT which he reports has helped him in the past.? Shiatsu Therapist spoke with Dr. Dill and review chart which indicate patient did have a positive response.? Patient also agrees to lowering gabapentin as needed so that it will not interfere with ECT.? Dr. Dill agre es to ECT consult and will meet with patient tomorrow to further assess.? In the meantime will increase Wellbutrin 04/21/2023 Patient has a history of chronic dysphoria and PTSD worsening over the past 6 months.? Obviously this is contributed to by multiple factors including his son dying of terminal cancer multiple medical issues.? Patient normally stabilized on methadone he did make a suicide attempt and has been increasingly despairing difficulty functioning helpless hopeless despondent.? Frequent flashbacks nightmare patient did have a good response to ECT in 2018 with good benefit that helped both depression and PTSD symptoms patient has had a number of failed medication trials would benefit from ECT for acute depressive symptoms and PTSD acute symptoms and would benefit from more intensive Outpatient step-down as available monitor LFTs and ammonia hospital consult for medical evaluation pre ECT check labs in EKG case reviewed with Dr. Lobo 04/24 tolerated ECT; some increasing hopefulness; tolerating medications well. Continue with treatment plan 04/25 same presentation; wants to continue with ECT 04/26 depressed; continue tx c/o muscle soreness post ECT; will tell Dr. Dill and see if can add/increase muscle relaxant pre or post ect ECT trial: ECT #1 04/24 ECT #2 04/25 ECT #3 pending 04/28; NPO Plan: CV Q 15 minute checks Continue ECT adding ibuprofen at pt request for muscle soreness post ect Continue Wellbutrin XL 150 t.i.d.; patient cannot tolerate taking extended- release all at once in the morning however wants help with depression; will try t.i.d. dosing (though this is not typical dosing for XL) Lower to Gabapentin 600 mg t.i.d. since getting ECT; hold nighttime dose prior to ECT BuSpar 25 mg b.i.d. Methadone 70 mg daily Seroquel 300 mg q.h.s.; does not tolerate higher doses Consider mood stabilizer Patient educated on: diagnosis, medication risk/benefits and ECT Informed Consent: understands Reason for continued inpatient stay Substantial Risk for: rapid decompensation Time Spent With Patient Time: Total time managing care of this patient today ____ minutes.
[2023-04-26] MEDS: Gabapentin 300 MG CAPSULE PO ×2 (14:09→19:28)
[2023-04-26] MEDS: Ibuprofen 600 MG TABLET PO (16:22)
[2023-04-26] MEDS: Cyclobenzaprine HCl 10 MG TABLET PO (18:31)
[2023-04-26] MEDS: hydrOXYzine HCL 25 MG TABLET PO (19:28)
[2023-04-26] MEDS: QUEtiapine Fumarate 300 MG TABLET PO (19:29)
[2023-04-27] MEDS: Ibuprofen 600 MG TABLET PO (05:58)
[2023-04-27] MEDS: Omeprazole 40 MG CAPSULE.DR PO (05:58)
[2023-04-27] MEDS: Bictegrav/Emtricit/Tenofov Ala TABLET 1 TAB PO (08:22)
[2023-04-27] MEDS: methADONE HCl 20 MG/2 ML ORAL.CONC 70 MG PO (08:22)
[2023-04-27] MEDS: buPROPion HCl XL 150 MG TAB.ER.24H PO ×3 (08:22→16:25)
[2023-04-27] MEDS: Docusate Sodium 100 MG CAPSULE PO ×2 (08:22→19:12)
[2023-04-27] MEDS: Gabapentin 300 MG CAPSULE PO ×2 (08:22→14:06)
[2023-04-27] MEDS: busPIRone HCl 5 MG TABLET 25 MG PO ×2 (08:23→14:08)
[2023-04-27] MEDS: Nicotine 21 MG PATCH.TD24 TRANSDERMA (08:26)
[2023-04-27] MEDS: Fluticasone/Vilanterol 100/25 BLST.W.DEV 1 PUFF INHALE (08:55)
[2023-04-27 09:32] VITALS: BP 105/69; PULSE 70; RESP 18; TEMP 35.8; O2SAT 100
[2023-04-27 11:35] VITALS: BMI 26.7
[2023-04-27] MEDS: Acetaminophen 325 MG TABLET 650 MG PO (16:25)
[2023-04-27] MEDS: Milk of Magnesia 30 ML ORAL.SUSP PO (16:30)
--- NOTE | 2023-04-27 16:32 | HO.PSYCHPN ---
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 No SI/HI. What seems to be appropriate grieve related to recent losses. Pt pleasant, taking medications. No behavioral concerns. Medication Compliance: Yes Review of Systems Review of Systems Constipation Yes all other systems are reviewed and are negative Mental Status Exam Mental Status Exam Narrative: Pt is alert and oriented; behavior is cooperative, friendly, calm; patient is not in distress; dressed in casual attire, a bit unkempt but with adequate hygiene; mood is described as pretty down and affect congruent, downcast; eye contact appropriate; Speech is normal rate, volume and prosody and not pressured; psychomotor retardation present; thought process is organized and goal directed; Thought content is on getting better to be there for to help his son during terminal illness; tx; otherwise pertinent to relevant topics and without any delusional content, paranoid ideations or grandiosity; no SI; no HI. There is no evidence of perceptual disturbance. Patients insight and judgment impaired but improving Diagnostics Vital Signs (24Hr): Vital Signs - 24 hr 04/27/23 09:32 Temperature 96.5 F L Pulse Rate 70 Respiratory Rate 18 Blood Pressure 105/69 Pulse Oximetry 100 Oxygen Delivery Method Room Air BMI result Body Mass Index 26.7 Labs 04/19/23 09:15 04/18/23 09:39 Imaging Radiology Impressions: ITS Impressions Foot X-Ray 04/18/23 10:08 IMPRESSION: Unremarkable right foot. Sacrum and Coccyx X-Ray 04/18/23 10:08 IMPRESSION: 1. Generalized osteopenia. No acute fracture. 2. L5-S1 mild degenerative disc disease. Bilateral hip hardware appears intact. Medications Medications Current Medications Acetaminophen (Acetaminophen 325 Mg Tablet) 650 mg PO Q6H PRN PRN Reason: Headache/Pain Mild Scale (1-3) Last Admin: 04/27/23 16:25 Dose: 650 mg Al Hydroxide/Mg Hydroxide (Magnesium Hydrox/Alum Hydrox 30 Ml Oral.Susp) 30 ml PO Q6H PRN PRN Reason: Heartburn/Nausea Bictegravir/Emtricitabine/Tenofovir (Bictegrav/Emtricit/Tenofov Ala Tablet) 1 tab PO DAILY [facility] Last Admin: 04/27/23 08:22 Dose: 1 tab Bupropion HCl (Bupropion Hcl Xl 150 Mg Tab.Er.24h) 150 mg PO TID@0900,1200,1700 [facility] Last Admin: 04/27/23 16:25 Dose: 150 mg Buspirone HCl (Buspirone Hcl 5 Mg Tablet) 25 mg PO BID@0900,1400 [facility] Last Admin: 04/27/23 14:08 Dose: 25 mg Cyclobenzaprine HCl (Cyclobenzaprine Hcl 10 Mg Tablet) 10 mg PO Q8H PRN PRN Reason: Muscle Spasm Last Admin: 04/26/23 18:31 Dose: 10 mg Docusate Sodium (Docusate Sodium 100 Mg Capsule) 100 mg PO BID [facility] Last Admin: 04/27/23 08:22 Dose: 100 mg Fluticasone/Vilanterol (Fluticasone/Vilanterol 100/25 Blst.W.Dev) 1 puff INHALE RDAILY [facility] Last Admin: 04/27/23 08:55 Dose: 1 puff Gabapentin (Gabapentin 300 Mg Capsule) 300 mg PO TID [facility] Last Admin: 04/27/23 14:06 Dose: 300 mg Hydroxyzine HCl (Hydroxyzine Hcl 25 Mg Tablet) 25 mg PO Q6H PRN PRN Reason: Anxiety Last Admin: 04/26/23 19:28 Dose: 25 mg Ibuprofen (Ibuprofen 600 Mg Tablet) 600 mg PO QID PRN PRN Reason: mild pain Last Admin: 04/27/23 05:58 Dose: 600 mg Magnesium Hydroxide (Milk Of Magnesia 30 Ml Oral.Susp) 30 ml PO DAILY PRN PRN Reason: Constipation Last Admin: 04/27/23 16:30 Dose: 30 ml Melatonin (Melatonin 3 Mg Tablet) 6 mg PO BEDTIME [facility] Methadone HCl (Methadone Hcl 20 Mg/2 Ml Oral.Conc) 70 mg PO DAILY [facility] Last Admin: 04/27/23 08:22 Dose: 70 mg Nicotine (Nicotine 21 Mg Patch.Td24) 21 mg TRANSDERMA DAILY [facility] Last Admin: 04/27/23 08:26 Dose: 21 mg Nicotine Polacrilex (Nicotine Polacrilex 2 Mg Gum) 4 mg BUCCAL Q2H PRN PRN Reason: Nicotine Cravings Omeprazole (Omeprazole 40 Mg Capsule.Dr) 40 mg PO DAILY@0630 [facility] Last Admin: 04/27/23 05:58 Dose: 40 mg Psyllium Hydrophilic Mucilloid (Psyllium Seed 3.4 Gm Powd.Pack) 3.4 gm PO DAILY PRN PRN Reason: Constipation Quetiapine Fumarate (Quetiapine Fumarate 300 Mg Tablet) 300 mg PO BEDTIME [facility] Last Admin: 04/26/23 19:29 Dose: 300 mg Sodium Biphosphate/Sodium Phosphate (Sodium Phosphate,[place]-Dibasic 133 Ml Enema) 133 ml [place] ONCE PRN PRN Reason: Constipation Last Admin: 04/25/23 09:34 Dose: 133 ml Trazodone HCl (Trazodone Hcl 50 Mg Tablet) 50 mg PO BEDTIME MRX1 PRN PRN Reason: Insomnia Allergies Allergies Allergy/AdvReac Type Severity Reaction Status Date / Time ketorolac [From Toradol] AdvReac Itching Verified 02/28/23 14:51 Assessment & Plan Assessment & Plan (1) MDD (major depressive disorder), recurrent severe, without psychosis: Status: Acute Code(s): F33.2 - Major depressive disorder, recurrent severe without psychotic features (2) Opioid dependence: Status: Acute Code(s): F11.20 - Opioid dependence, uncomplicated (3) PTSD (post-traumatic stress disorder): Status: Acute Code(s): F43.10 - Post-traumatic stress disorder, unspecified Plan Patient is a 58-year-old male with history of depression, PTSD, substance abuse and other medical comorbidities including HIV,? COPD, osteoarthritis, who presents for worsening depression and attempted SI by fentanyl overdose in the face of psychosocial stressors, homelessness and sons terminal cancer diagnosis, relapse with substance abuse. -significant psychosocial stressors resulting had an worsening depression SI.? Patient looking for treatment and help with coping with depression so that he can be present to help his son.? Also looking for help with housing -will continue home medication regimen for now which he has been on for years; has a history of ECT which will consider -bipolar disorder seems less likely; patient could not give a clear example of an actual hypomanic/manic episode for diagnosis, however writer editor understands history is obscured by substance abuse; he may benefit from mood stabilizer.? That said patient is facing significant psychosocial stressors that may be little effected by additional medication management Hospital course: 04/20 patient remains depressed; interested in ECT which he reports has helped him in the past.? Divinity Teacher spoke with Dr. Dill and review chart which indicate patient did have a positive response.? Patient also agrees to lowering gabapentin as needed so that it will not interfere with ECT.? Dr. Dill agrees to ECT consult and will meet with patient tomorrow to further assess.? In the meantime will increase Wellbutrin 04/21/2023 Patient has a history of chronic dysphoria and PTSD worsening over the past 6 months.? Obviously this is contributed to by multiple factors including his son dying of terminal cancer multiple medical issues.? Patient normally stabilized on methadone he did make a suicide attempt and has been increasingly despairing difficulty functioning helpless hopeless despondent.? Frequent flashbacks nightmare patient did have a good response to ECT in 2018 with good benefit that helped both depression and PTSD symptoms patient has had a number of failed medication trials would benefit from ECT for acute depressive symptoms and PTSD acute symptoms and would benefit from more intensive Outpatient step-down as available monitor LFTs and ammonia hospital consult for medical evaluation pre ECT check labs in EKG case reviewed with Dr. Lobo 04/24 tolerated ECT; some increasing hopefulness; tolerating medications well. Continue with treatment plan 04/25 same presentation; wants to continue with ECT 04/26 depressed; continue tx c/o muscle soreness post ECT; will tell Dr. Dill and see if can add/increase muscle relaxant pre or post ect 04/27 stable. continue tx. ECT trial: ECT #1 04/24 ECT #2 04/25 ECT #3 pending 04/28; NPO Plan: CV Q 15 minute checks Continue ECT adding ibuprofen at pt request for muscle soreness post ect Continue Wellbutrin XL 150 t.i.d.; patient cannot tolerate taking extended-release all at once in the morning however wants help with depression; will try t.i.d. dosing (though this is not typical dosing for XL) Lower to Gabapentin 600 mg t.i.d. since getting ECT; hold nighttime dose prior to ECT BuSpar 25 mg b.i.d. Methadone 70 mg daily Seroquel 300 mg q.h.s.; does not tolerate higher doses Consider mood stabilizer Reason for continued inpatient stay Substantial Risk for: inability to function Time Spent With Patient Time: Total time managing care of this patient today ____ minutes.
[2023-04-27 18:00] VITALS: BP 148/73; PULSE 73; TEMP 36.2; O2SAT 98
[2023-04-27] MEDS: Cyclobenzaprine HCl 10 MG TABLET PO (19:12)
[2023-04-27] MEDS: Melatonin 3 MG TABLET 6 MG PO (19:12)
[2023-04-27] MEDS: QUEtiapine Fumarate 300 MG TABLET PO (19:12)
[2023-04-28] VITALS (11 sets, daily range): BP systolic 106–168; BP diastolic 67–96; PULSE 64–89; RESP 14–20; TEMP 36.2–37.3; O2SAT 94–100
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
--- NOTE | 2023-04-28 08:02 | MHC.SHP ---
Pre-Procedural Eval Section A Date of Service: 04/28/23 The patient is an INPATIENT: Yes Changes since office visit: Yes Patient answered all questions; No Cold of Flu in the past 2 weeks, No New Medical Problems and No Changes in Medication The History & Physical has been completed within 30 days and I have reviewed it.: Yes Section B Chief Complaint: SI Allergies: Allergies Allergy/AdvReac Type Severity Reaction Status Date / Time ketorolac [From Toradol] AdvReac Itching Verified 02/28/23 14:51 Plan I have reviewed the history and physical and performed a pertinent physical examination on my patient. No changes have occurred unless specified. Time Spent With Patient Time: Total time managing care of this patient today ____ minutes.
--- NOTE | 2023-04-28 08:03 | HO.ECTPROC ---
ECT Procedure Note Diagnosis/Treatment Date of Service: 04/28/23 Diagnosis: Major Depressive Disorder Previous ECT Date: 04/26/23 Current Treatment Number: 3 Interval Clinical Notes: no signifixant sz last tx no change in mood gabapentin change to bid 300 mg was changed to etomidate for improved sz Time: Total time managing care of this patient today ____ minutes. ECT Settings Device: THYMATRON DGx Electrode Placement: Rt temporal/ Lt frontal Program/Pulse Width: 0.50 Energy Percent: 100 Seizure Duration By EEG (in seconds): 31 Medications Administration General Anesthetic: Etomidate (18) Muscle Relaxant: Succinylcholine (100) Ancillary Medications Analgesics: Torodol - Pre ECT (4) Anti-emetics: Zofran - Pre ECT Miscillaneous Medications: Other (2 cc metoprolol) Airway Management Airway Management: Bag Mask Ventilation Treatment Recommendations Notes: Some post ECT confusional state would re-evaluate right temporal left frontal for next treatment Bifrontal can be less effective as people get older because of brain shrinkage
[2023-04-28] MEDS: busPIRone HCl 5 MG TABLET 25 MG PO ×2 (09:22→14:24)
[2023-04-28] MEDS: Docusate Sodium 100 MG CAPSULE PO ×2 (09:22→19:59)
[2023-04-28] MEDS: methADONE HCl 20 MG/2 ML ORAL.CONC 70 MG PO (09:22)
[2023-04-28] MEDS: Omeprazole 40 MG CAPSULE.DR PO (09:22)
[2023-04-28] MEDS: buPROPion HCl XL 150 MG TAB.ER.24H PO ×3 (09:23→16:01)
[2023-04-28] MEDS: Bictegrav/Emtricit/Tenofov Ala TABLET 1 TAB PO (09:23)
[2023-04-28] MEDS: Nicotine 21 MG PATCH.TD24 TRANSDERMA (09:23)
[2023-04-28] MEDS: Fluticasone/Vilanterol 100/25 BLST.W.DEV 1 PUFF INHALE (09:24)
[2023-04-28 09:30] LABS: Ammonia 47 umol/L (13-55)
[2023-04-28 09:38] LABS: Alanine Aminotransferase 47 U/L (0-40); Alkaline Phosphatase 308 U/L (39-117); Aspartate Amino Transferase 63 U/L (5-37); Bilirubin Direct 0.4 mg/dL (0.0-0.5); Bilirubin Total 0.7 mg/dL (0.0-1.0); Total Protein 6.9 g/dL (6.5-8.0)
[2023-04-28] MEDS: Gabapentin 300 MG CAPSULE PO ×3 (09:59→19:59)
[2023-04-28] MEDS: Cyclobenzaprine HCl 10 MG TABLET PO ×2 (11:03→19:59)
[2023-04-28] MEDS: Milk of Magnesia 30 ML ORAL.SUSP PO (19:12)
[2023-04-28] MEDS: QUEtiapine Fumarate 300 MG TABLET PO (19:59)
[2023-04-28] MEDS: Melatonin 3 MG TABLET 6 MG PO (19:59)
--- NOTE | 2023-04-28 23:37 | HO.PSYCHPN ---
Subjective Subjective Date of Service: 04/28/23 Reason For Visit: SI Subjective Notes: Conditional Voluntary Interim History: Patient showing some improvement had brief episode of confusion post ECT had fatigue post ECT generally some improvement noted Medication Compliance: Yes Mental Status Exam Mental Status Exam Narrative: Pt is alert and oriented; behavior is cooperative, friendly, calm; patient is not in distress; dressed in casual attire, a bit unkempt but with adequate hygiene; mood is described as pretty down and affect congruent, downcast; eye contact appropriate; Speech is normal rate, volume and prosody and not pressured; psychomotor retardation present; thought process is organized and goal directed; Thought content is on getting better to be there for to help his son during terminal illness; tx; otherwise pertinent to relevant topics and without any delusional content, paranoid ideations or grandiosity; no SI; no HI. There is no evidence of perceptual disturbance. Patients insight and judgment impaired but improving more hopeful Diagnostics Vital Signs (24Hr): Vital Signs - 24 hr 04/28/23 05:58 04/28/23 06:28 04/28/23 08:15 Temperature 98.4 F 97.6 F 97.1 F Pulse Rate 77 68 89 Respiratory Rate 17 20 14 Blood Pressure 128/78 129/71 149/84 H Pulse Oximetry 98 96 99 Oxygen Delivery Method Room Air Nasal Cannula with ETCO2 Oxygen Flow Rate 2 04/28/23 08:20 04/28/23 08:25 04/28/23 08:25 Temperature Pulse Rate 79 75 71 Respiratory Rate 16 15 15 Blood Pressure 130/86 143/95 H 142/85 H Pulse Oximetry 96 96 100 Oxygen Delivery Method Nasal Cannula with ETCO2 Nasal Cannula with ETCO2 Nasal Cannula with ETCO2 Oxygen Flow Rate 2 3 2 04/28/23 08:40 04/28/23 08:55 04/28/23 09:07 Temperature 97.7 F Pulse Rate 71 64 64 Respiratory Rate 16 16 17 Blood Pressure 132/82 115/76 115/76 Pulse Oximetry 97 94 95 Oxygen Delivery Method Nasal Cannula with ETCO2 Room Air Room Air Oxygen Flow Rate 2 04/28/23 09:10 04/28/23 09:20 04/28/23 18:00 Temperature 99.2 F 97.9 F Pulse Rate 80 64 73 Respiratory Rate 16 18 18 Blood Pressure 168/96 H 106/69 118/67 Pulse Oximetry 95 94 Oxygen Delivery Method Room Air Oxygen Flow Rate BMI result Body Mass Index 26.7 Labs 04/19/23 09:15 04/18/23 09:39 Labs: Laboratory Results - last 48 hr 04/28/23 04/28/23 09:08 09:08 Total Bilirubin 0.7 Direct Bilirubin 0.4 AST 63 H ALT 47 H Alkaline Phosphatase 308 H Ammonia 47 Total Protein 6.9 Albumin 3.0 L Imaging Radiology Impressions: ITS Impressions Foot X-Ray 04/18/23 10:08 IMPRESSION: Unremarkable right foot. Sacrum and Coccyx X-Ray 04/18/23 10:08 IMPRESSION: 1. Generalized osteopenia. No acute fracture. 2. L5-S1 mild degenerative disc disease. Bilateral hip hardware appears intact. Medications Medications Current Medications Acetaminophen (Acetaminophen 325 Mg Tablet) 650 mg PO Q6H PRN PRN Reason: Headache/Pain Mild Scale (1-3) Last Admin: 04/27/23 16:25 Dose: 650 mg Al Hydroxide/Mg Hydroxide (Magnesium Hydrox/Alum Hydrox 30 Ml Oral.Susp) 30 ml PO Q6H PRN PRN Reason: Heartburn/Nausea Bictegravir/Emtricitabine/Tenofovir (Bictegrav/Emtricit/Tenofov Ala Tablet) 1 tab PO DAILY [facility] Last Admin: 04/28/23 09:23 Dose: 1 tab Bupropion HCl (Bupropion Hcl Xl 150 Mg Tab.Er.24h) 150 mg PO TID@0900,1200,1700 [facility] Last Admin: 04/28/23 16:01 Dose: 150 mg Buspirone HCl (Buspirone Hcl 5 Mg Tablet) 25 mg PO BID@0900,1400 [facility] Last Admin: 04/28/23 14:24 Dose: 25 mg Cyclobenzaprine HCl (Cyclobenzaprine Hcl 10 Mg Tablet) 10 mg PO Q8H PRN PRN Reason: Muscle Spasm Last Admin: 04/28/23 19:59 Dose: 10 mg Docusate Sodium (Docusate Sodium 100 Mg Capsule) 100 mg PO BID [facility] Last Admin: 04/28/23 19:59 Dose: 100 mg Fluticasone/Vilanterol (Fluticasone/Vilanterol 100/25 Blst.W.Dev) 1 puff INHALE RDAILY [facility] Last Admin: 04/28/23 09:24 Dose: 1 puff Gabapentin (Gabapentin 300 Mg Capsule) 300 mg PO TID [facility] Last Admin: 04/28/23 19:59 Dose: 300 mg Hydroxyzine HCl (Hydroxyzine Hcl 25 Mg Tablet) 25 mg PO Q6H PRN PRN Reason: Anxiety Last Admin: 04/26/23 19:28 Dose: 25 mg Ibuprofen (Ibuprofen 600 Mg Tablet) 600 mg PO QID PRN PRN Reason: mild pain Last Admin: 04/27/23 05:58 Dose: 600 mg Magnesium Hydroxide (Milk Of Magnesia 30 Ml Oral.Susp) 30 ml PO DAILY PRN PRN Reason: Constipation Last Admin: 04/28/23 19:12 Dose: 30 ml Melatonin (Melatonin 3 Mg Tablet) 6 mg PO BEDTIME [facility] Last Admin: 04/28/23 19:59 Dose: 6 mg Methadone HCl (Methadone Hcl 20 Mg/2 Ml Oral.Conc) 70 mg PO DAILY [facility] Last Admin: 04/28/23 09:22 Dose: 70 mg Nicotine (Nicotine 21 Mg Patch.Td24) 21 mg TRANSDERMA DAILY [facility] Last Admin: 04/28/23 09:23 Dose: 21 mg Nicotine Polacrilex (Nicotine Polacrilex 2 Mg Gum) 4 mg BUCCAL Q2H PRN PRN Reason: Nicotine Cravings Omeprazole (Omeprazole 40 Mg Capsule.Dr) 40 mg PO DAILY@0630 [facility] Last Admin: 04/28/23 09:22 Dose: 40 mg Psyllium Hydrophilic Mucilloid (Psyllium Seed 3.4 Gm Powd.Pack) 3.4 gm PO DAILY PRN PRN Reason: Constipation Last Admin: 04/28/23 16:01 Dose: 3.4 gm Quetiapine Fumarate (Quetiapine Fumarate 300 Mg Tablet) 300 mg PO BEDTIME [facility] Last Admin: 04/28/23 19:59 Dose: 300 mg Sodium Biphosphate/Sodium Phosphate (Sodium Phosphate,[place]-Dibasic 133 Ml Enema) 133 ml [place] ONCE PRN PRN Reason: Constipation Last Admin: 04/25/23 09:34 Dose: 133 ml Trazodone HCl (Trazodone Hcl 50 Mg Tablet) 50 mg PO BEDTIME MRX1 PRN PRN Reason: Insomnia Allergies Allergies Allergy/AdvReac Type Severity Reaction Status Date / Time ketorolac [From Toradol] AdvReac Itching Verified 02/28/23 14:51 Assessment & Plan Assessment & Plan (1) MDD (major depressive disorder), recurrent severe, without psychosis: Status: Acute Code(s): F33.2 - Major depressive disorder, recurrent severe without psychotic features (2) Opioid dependence: Status: Acute Code(s): F11.20 - Opioid dependence, uncomplicated (3) PTSD (post-traumatic stress disorder): Status: Acute Code(s): F43.10 - Post-traumatic stress disorder, unspecified Plan Patient is a 58-year-old male with history of depression, PTSD, substance abuse and other medical comorbidities including HIV,? COPD, osteoarthritis, who presents for worsening depression and attempted SI by fentanyl overdose in the face of psychosocial stressors, homelessness and sons terminal cancer diagnosis, relapse with substance abuse. -significant psychosocial stressors resulting had an worsening depression SI.? Patient looking for treatment and help with coping with depression so that he can be present to help his son.? 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 That said patient is facing significant psychosocial stressors that may be little effected by additional medication management Hospital course: 04/20 patient remains depressed; interested in ECT which he reports has helped him in the past.? Hog Scraper spoke with Dr. Dill and review chart which indicate patient did have a positive response.? Patient also agrees to lowering gabapentin as needed so that it will not interfere with ECT.? Dr. Dill agrees to ECT consult and will meet with patient tomorrow to further assess.? In the meantime will increase Wellbutrin 04/21/2023 Patient has a history of chronic dysphoria and PTSD worsening over the past 6 months.? Obviously this is contributed to by multiple factors including his son dying of terminal cancer multiple medical issues.? Patient normally stabilized on methadone he did make a suicide attempt and has been increasingly despairing difficulty functioning helpless hopeless despondent.? Frequent flashbacks nightmare patient did have a good response to ECT in 2019 with good benefit that helped both depression and PTSD symptoms patient has had a number of failed medication trials would benefit from ECT for acute depressive symptoms and PTSD acute symptoms and would benefit from more intensive Outpatient step-down as available monitor LFTs and ammonia hospital consult for medical evaluation pre ECT check labs in EKG case reviewed with Dr. Lobo 04/24 tolerated ECT; some increasing hopefulness; tolerating medications well. Continue with treatment plan 04/25 same presentation; wants to continue with ECT 04/26 depressed; continue tx c/o muscle soreness post ECT; will tell Dr. Dill and see if can add/increase muscle relaxant pre or post ect 04/27 stable. continue tx. 04/28/2023 ECT technique changed right temporal left frontal ECT seizure 31 seconds he was changed to etomidate 18 succinylcholine 100 from [facility] ECT trial: ECT #1 04/24 ECT #2 04/25 ECT #3 pending 04/28; NPO Plan: CV Q 15 minute checks Continue ECT adding ibuprofen at pt request for muscle soreness post ect Continue Wellbutrin XL 150 t.i.d.; patient cannot tolerate taking extended-release all at once in the morning however wants help with depression; will try t.i.d. dosing (though this is not typical dosing for XL) Lower to Gabapentin 600 mg t.i.d. since getting ECT; hold nighttime dose prior to ECT BuSpar 25 mg b.i.d. Methadone 70 mg daily Seroquel 300 mg q.h.s.; does not tolerate higher doses Consider mood stabilizer Reason for continued inpatient stay Substantial Risk for: harm to self Time Spent With Patient Time: Total time managing care of this patient today ____ minutes.
[2023-04-29] MEDS: Omeprazole 40 MG CAPSULE.DR PO (06:12)
[2023-04-29] MEDS: Docusate Sodium 100 MG CAPSULE PO ×2 (08:02→19:52)
[2023-04-29] MEDS: Bictegrav/Emtricit/Tenofov Ala TABLET 1 TAB PO (08:02)
[2023-04-29] MEDS: busPIRone HCl 5 MG TABLET 25 MG PO ×2 (08:02→14:31)
[2023-04-29] MEDS: Gabapentin 300 MG CAPSULE PO ×3 (08:02→19:53)
[2023-04-29] MEDS: Nicotine 21 MG PATCH.TD24 TRANSDERMA (08:02)
[2023-04-29] MEDS: buPROPion HCl XL 150 MG TAB.ER.24H PO ×3 (08:02→16:13)
[2023-04-29] MEDS: methADONE HCl 20 MG/2 ML ORAL.CONC 70 MG PO (08:02)
[2023-04-29 08:20] VITALS: BP 113/59; PULSE 77; RESP 18; TEMP 36.1; O2SAT 95
[2023-04-29] MEDS: Fluticasone/Vilanterol 100/25 BLST.W.DEV 1 PUFF INHALE (09:03)
[2023-04-29] MEDS: Acetaminophen 325 MG TABLET 650 MG PO (11:04)
[2023-04-29] MEDS: Ibuprofen 600 MG TABLET PO (16:13)
--- NOTE | 2023-04-29 18:54 | P.PNPSI_ITS ---
Subjective Subjective Date of Service: 04/29/23 Reason For Visit: SI Interim History: Pt seen in milieu where he is active and engaged. Reviewed with team who report no current concerns. ECT plan continues. Pt is responding. No current questions or concerns about plan of care. Medication Compliance: Yes Side effects from medications: No Attending Groups: Yes Review of Systems Acute medical concerns: No Medical Review of Systems: unchanged Mental Status Exam Mental Status Exam Patient Appearance: Appropriate Patient Orientation: Person, Place, Time and Situation Level of Consciousness: Alert Patient Behavior: Talkative and Good Eye Contact Mood Description: Depressed Affect Description: Flat Patient Cognition Impaired: No Speech Pattern: Spontaneous Speech Memory Description: Intact Hallucinations: None Delusions: Not Present Thought Process: Rumination Thought Content: positive for Perseveration Depressive Symptoms: Unhappiness Judgement: Fair Diagnostics Vital Signs (24Hr): Vital Signs - 24 hr 04/29/23 08:20 Temperature 97.0 F Pulse Rate 77 Respiratory Rate 18 Blood Pressure 113/59 L Pulse Oximetry 95 Oxygen Delivery Method Room Air BMI result Body Mass Index 26.7 Labs 04/19/23 09:15 04/18/23 09:39 Labs: Laboratory Results - last 48 hr 04/28/23 04/28/23 09:08 09:08 Total Bilirubin 0.7 Direct Bilirubin 0.4 AST 63 H ALT 47 H Alkaline Phosphatase 308 H Ammonia 47 Total Protein 6.9 Albumin 3.0 L Imaging Radiology Impressions: ITS Impressions Foot X-Ray 04/18/23 10:08 IMPRESSION: Unremarkable right foot. Sacrum and Coccyx X-Ray 04/18/23 10:08 IMPRESSION: 1. Generalized osteopenia. No acute fracture. 2. L5-S1 mild degenerative disc disease. Bilateral hip hardware appears intact. Medications Medications Current Medications Acetaminophen (Acetaminophen 325 Mg Tablet) 650 mg PO Q6H PRN PRN Reason: Headache/Pain Mild Scale (1-3) Last Admin: 04/29/23 11:04 Dose: 650 mg Al Hydroxide/Mg Hydroxide (Magnesium Hydrox/Alum Hydrox 30 Ml Oral.Susp) 30 ml PO Q6H PRN PRN Reason: Heartburn/Nausea Bictegravir/Emtricitabine/Tenofovir (Bictegrav/Emtricit/Tenofov Ala Tablet) 1 tab PO DAILY [facility] Last Admin: 04/29/23 08:02 Dose: 1 tab Bupropion HCl (Bupropion Hcl Xl 150 Mg Tab.Er.24h) 150 mg PO TID@0900,1200,1700 [facility] Last Admin: 04/29/23 16:13 Dose: 150 mg Buspirone HCl (Buspirone Hcl 5 Mg Tablet) 25 mg PO BID@0900,1400 [facility] Last Admin: 04/29/23 14:31 Dose: 25 mg Cyclobenzaprine HCl (Cyclobenzaprine Hcl 10 Mg Tablet) 10 mg PO Q8H PRN PRN Reason: Muscle Spasm Last Admin: 04/28/23 19:59 Dose: 10 mg Docusate Sodium (Docusate Sodium 100 Mg Capsule) 100 mg PO BID [facility] Last Admin: 04/29/23 08:02 Dose: 100 mg Fluticasone/Vilanterol (Fluticasone/Vilanterol 100/25 Blst.W.Dev) 1 puff INHALE RDAILY [facility] Last Admin: 04/29/23 09:03 Dose: 1 puff Gabapentin (Gabapentin 300 Mg Capsule) 300 mg PO TID [facility] Last Admin: 04/29/23 14:31 Dose: 300 mg Hydroxyzine HCl (Hydroxyzine Hcl 25 Mg Tablet) 25 mg PO Q6H PRN PRN Reason: Anxiety Last Admin: 04/26/23 19:28 Dose: 25 mg Ibuprofen (Ibuprofen 600 Mg Tablet) 600 mg PO QID PRN PRN Reason: mild pain Last Admin: 04/29/23 16:13 Dose: 600 mg Magnesium Hydroxide (Milk Of Magnesia 30 Ml Oral.Susp) 30 ml PO DAILY PRN PRN Reason: Constipation Last Admin: 04/28/23 19:12 Dose: 30 ml Melatonin (Melatonin 3 Mg Tablet) 6 mg PO BEDTIME [facility] Last Admin: 04/28/23 19:59 Dose: 6 mg Methadone HCl (Methadone Hcl 20 Mg/2 Ml Oral.Conc) 70 mg PO DAILY [facility] Last Admin: 04/29/23 08:02 Dose: 70 mg Nicotine (Nicotine 21 Mg Patch.Td24) 21 mg TRANSDERMA DAILY [facility] Last Admin: 04/29/23 08:02 Dose: 21 mg Nicotine Polacrilex (Nicotine Polacrilex 2 Mg Gum) 4 mg BUCCAL Q2H PRN PRN Reason: Nicotine Cravings Omeprazole (Omeprazole 40 Mg Capsule.Dr) 40 mg PO DAILY@0630 [facility] Last Admin: 04/29/23 06:12 Dose: 40 mg Psyllium Hydrophilic Mucilloid (Psyllium Seed 3.4 Gm Powd.Pack) 3.4 gm PO DAILY PRN PRN Reason: Constipation Last Admin: 04/28/23 16:01 Dose: 3.4 gm Quetiapine Fumarate (Quetiapine Fumarate 300 Mg Tablet) 300 mg PO BEDTIME [facility] Last Admin: 04/28/23 19:59 Dose: 300 mg Sodium Biphosphate/Sodium Phosphate (Sodium Phosphate,[place]-Dibasic 133 Ml Enema) 133 ml [place] ONCE PRN PRN Reason: Constipation Last Admin: 04/25/23 09:34 Dose: 133 ml Trazodone HCl (Trazodone Hcl 50 Mg Tablet) 50 mg PO BEDTIME MRX1 PRN PRN Reason: Insomnia Allergies Allergies Allergy/AdvReac Type Severity Reaction Status Date / Time ketorolac [From Toradol] AdvReac Itching Verified 02/28/23 14:51 Assessment & Plan Assessment & Plan (1) MDD (major depressive disorder), recurrent severe, without psychosis: Status: Acute Code(s): F33.2 - Major depressive disorder, recurrent severe without psychotic features (2) Opioid dependence: Status: Acute Code(s): F11.20 - Opioid dependence, uncomplicated (3) PTSD (post-traumatic stress disorder): Status: Acute Code(s): F43.10 - Post-traumatic stress disorder, unspecified Plan Patient is a 58-year-old male with history of depression, PTSD, substance abuse and other medical comorbidities including HIV,? COPD, osteoarthritis, who presents for worsening depression and attempted SI by fentanyl overdose in the face of psychosocial stressors, homelessness and sons terminal cancer diagnosis, relapse with substance abuse. -significant psychosocial stressors resulting had an worsening depression SI.? Patient looking for treatment and help with coping with depression so that he ca n be present to help his son.? Also looking for help with housing -will continue home medication regimen for now which he has been on for years; has a history of ECT which will consider -bipolar disorder seems less likely; patient could not give a clear example of an actual hypomanic/manic episode for diagnosis, however physician underwriter understands history is obscured by substance abuse; he may benefit from mood stabilizer.? That said patient is facing significant psychosocial stressors that may be little effected by additional medication management Hospital course: 04/20 patient remains depressed; interested in ECT which he reports has helped him in the past.? Harness Installer spoke with Dr. Dill and review chart which indicate patient did have a positive response.? Patient also agrees to lowering gabapentin as needed so that it will not interfere with ECT.? Dr. Dill agrees to ECT consult and will meet with patient tomorrow to further assess.? In the meantime will increase Wellbutrin 04/21/2023 Patient has a history of chronic dysphoria and PTSD worsening over the past 6 months.? Obviously this is contributed to by multiple factors including his son dying of terminal cancer multiple medical issues.? Patient normally stabilized on methadone he did make a suicide attempt and has been increasingly despairing difficulty functioning helpless hopeless despondent.? Frequent flashbacks nightmare patient did have a good response to ECT in 2018 with good benefit that helped both depression and PTSD symptoms patient has had a number of failed medication trials would benefit from ECT for acute depressive symptoms and PTSD acute symptoms and would benefit from more intensive Outpatient step-down as available monitor LFTs and ammonia hospital consult for medical evaluation pre ECT check labs in EKG case reviewed with Dr. Lobo 04/24 tolerated ECT; some increasing hopefulness; tolerating medications well. Continue with treatment plan 04/25 same presentation; wants to continue with ECT 04/26 depressed; continue tx c/o muscle soreness post ECT; will tell Dr. Dill and see if can add/increase muscle relaxant pre or post ect 04/27 stable. continue tx. 04/28/2023 ECT technique changed right temporal left frontal ECT seizure 31 seconds he was changed to etomidate 18 succinylcholine 100 from [facility] 04/29/23: Continue regime and plan of care. ECT trial: ECT #1 04/24 ECT #2 04/25 ECT #3 pending 04/28; NPO Plan: CV Q 15 minute checks Continue ECT adding ibuprofen at pt request for muscle soreness post ect Continue Wellbutrin XL 150 t.i.d.; patient cannot tolerate taking extended- release all at once in the morning however wants help with depression; will try t.i.d. dosing (though this is not typical dosing for XL) Lower to Gabapentin 600 mg t.i.d. since getting ECT; hold nighttime dose prior to ECT BuSpar 25 mg b.i.d. Methadone 70 mg daily Seroquel 300 mg q.h.s.; does not tolerate higher doses Consider mood stabilizer Informed Consent: understands Reason for continued inpatient stay Substantial Risk for: rapid decompensation Time Spent With Patient Time: Total time managing care of this patient today ____ minutes.
[2023-04-29 19:51] VITALS: BP 132/61; PULSE 65; RESP 18; TEMP 36.4
[2023-04-29] MEDS: Melatonin 3 MG TABLET 6 MG PO (19:52)
[2023-04-29] MEDS: QUEtiapine Fumarate 300 MG TABLET PO (19:53)
[2023-04-29] MEDS: Cyclobenzaprine HCl 10 MG TABLET PO (19:53)
[2023-04-30] MEDS: Omeprazole 40 MG CAPSULE.DR PO (05:36)
[2023-04-30 08:00] VITALS: BP 125/77; PULSE 75; RESP 16; TEMP 36.4; O2SAT 98
[2023-04-30] MEDS: Bictegrav/Emtricit/Tenofov Ala TABLET 1 TAB PO (08:05)
[2023-04-30] MEDS: busPIRone HCl 5 MG TABLET 25 MG PO ×2 (08:05→13:10)
[2023-04-30] MEDS: Gabapentin 300 MG CAPSULE PO ×2 (08:05→14:05)
[2023-04-30] MEDS: buPROPion HCl XL 150 MG TAB.ER.24H PO ×3 (08:05→16:03)
[2023-04-30] MEDS: Docusate Sodium 100 MG CAPSULE PO ×2 (08:06→19:33)
[2023-04-30] MEDS: Nicotine 21 MG PATCH.TD24 TRANSDERMA (08:06)
[2023-04-30] MEDS: methADONE HCl 20 MG/2 ML ORAL.CONC 70 MG PO (08:06)
[2023-04-30] MEDS: Milk of Magnesia 30 ML ORAL.SUSP PO (09:07)
[2023-04-30] MEDS: Fluticasone/Vilanterol 100/25 BLST.W.DEV 1 PUFF INHALE (09:08)
[2023-04-30] MEDS: Ibuprofen 600 MG TABLET PO (16:03)
--- NOTE | 2023-04-30 16:50 | HO.PSYCHPN ---
Subjective Subjective Date of Service: 04/30/23 Reason For Visit: SI Subjective Notes: Conditional Voluntary Healthcare Proxy: No Guardianship: No Medical Problems Affecting Mental Status: No Interim History: Pt reviewed with team, records and reports were reviewed. Pt NPO for ECT 05.01.23. Team report pt is sleeping. He is visable in milieu, with peers, consistently interactive with ongoing sx of depression and family stress given son's illness. No med changes were made today. Medication Compliance: Yes Side effects from medications: No Attending Groups: Yes Review of Systems Acute medical concerns: No Mental Status Exam Mental Status Exam Patient Appearance: Appropriate Patient Orientation: Person, Place, Time and Situation Level of Consciousness: Alert Patient Behavior: Talkative and Good Eye Contact Mood Description: Depressed Affect Description: Flat Patient Cognition Impaired: No Speech Pattern: Spontaneous Speech Memory Description: Intact Hallucinations: None Delusions: Not Present Thought Process: Rumination Thought Content: positive for Perseveration Depressive Symptoms: Unhappiness Judgement: Fair Diagnostics Vital Signs (24Hr): Vital Signs - 24 hr 04/29/23 19:51 04/30/23 08:00 Temperature 97.6 F 97.6 F Pulse Rate 65 75 Respiratory Rate 18 16 Blood Pressure 132/61 125/77 Pulse Oximetry 98 Oxygen Delivery Method Room Air BMI result Body Mass Index 26.7 Labs 04/19/23 09:15 04/18/23 09:39 Imaging Radiology Impressions: ITS Impressions Foot X-Ray 04/18/23 10:08 IMPRESSION: Unremarkable right foot. Sacrum and Coccyx X-Ray 04/18/23 10:08 IMPRESSION: 1. Generalized osteopenia. No acute fracture. 2. L5-S1 mild degenerative disc disease. Bilateral hip hardware appears intact. Medications Medications Current Medications Acetaminophen (Acetaminophen 325 Mg Tablet) 650 mg PO Q6H PRN PRN Reason: Headache/Pain Mild Scale (1-3) Last Admin: 04/29/23 11:04 Dose: 650 mg Al Hydroxide/Mg Hydroxide (Magnesium Hydrox/Alum Hydrox 30 Ml Oral.Susp) 30 ml PO Q6H PRN PRN Reason: Heartburn/Nausea Bictegravir/Emtricitabine/Tenofovir (Bictegrav/Emtricit/Tenofov Ala Tablet) 1 tab PO DAILY CRISTY Last Admin: 04/30/23 08:05 Dose: 1 tab Bupropion HCl (Bupropion Hcl Xl 150 Mg Tab.Er.24h) 150 mg PO TID@0900,1200,1700 [facility] Last Admin: 04/30/23 16:03 Dose: 150 mg Buspirone HCl (Buspirone Hcl 5 Mg Tablet) 25 mg PO BID@0900,1400 [facility] Last Admin: 04/30/23 13:10 Dose: 25 mg Cyclobenzaprine HCl (Cyclobenzaprine Hcl 10 Mg Tablet) 10 mg PO Q8H PRN PRN Reason: Muscle Spasm Last Admin: 04/29/23 19:53 Dose: 10 mg Docusate Sodium (Docusate Sodium 100 Mg Capsule) 100 mg PO BID [facility] Last Admin: 04/30/23 08:06 Dose: 100 mg Fluticasone/Vilanterol (Fluticasone/Vilanterol 100/25 Blst.W.Dev) 1 puff INHALE RDAILY [facility] Last Admin: 04/30/23 09:08 Dose: 1 puff Gabapentin (Gabapentin 300 Mg Capsule) 300 mg PO BID@0830,1630 [facility] Hydroxyzine HCl (Hydroxyzine Hcl 25 Mg Tablet) 25 mg PO Q6H PRN PRN Reason: Anxiety Last Admin: 04/26/23 19:28 Dose: 25 mg Ibuprofen (Ibuprofen 600 Mg Tablet) 600 mg PO QID PRN PRN Reason: mild pain Last Admin: 04/30/23 16:03 Dose: 600 mg Magnesium Hydroxide (Milk Of Magnesia 30 Ml Oral.Susp) 30 ml PO DAILY PRN PRN Reason: Constipation Last Admin: 04/30/23 09:07 Dose: 30 ml Melatonin (Melatonin 3 Mg Tablet) 6 mg PO BEDTIME [facility] Last Admin: 04/29/23 19:52 Dose: 6 mg Methadone HCl (Methadone Hcl 20 Mg/2 Ml Oral.Conc) 70 mg PO DAILY [facility] Last Admin: 04/30/23 08:06 Dose: 70 mg Nicotine (Nicotine 21 Mg Patch.Td24) 21 mg TRANSDERMA DAILY [facility] Last Admin: 04/30/23 08:06 Dose: 21 mg Nicotine Polacrilex (Nicotine Polacrilex 2 Mg Gum) 4 mg BUCCAL Q2H PRN PRN Reason: Nicotine Cravings Omeprazole (Omeprazole 40 Mg Capsule.Dr) 40 mg PO DAILY@0630 [facility] Last Admin: 04/30/23 05:36 Dose: 40 mg Psyllium Hydrophilic Mucilloid (Psyllium Seed 3.4 Gm Powd.Pack) 3.4 gm PO DAILY PRN PRN Reason: Constipation Last Admin: 04/28/23 16:01 Dose: 3.4 gm Quetiapine Fumarate (Quetiapine Fumarate 300 Mg Tablet) 300 mg PO BEDTIME [facility] Last Admin: 04/29/23 19:53 Dose: 300 mg Sodium Biphosphate/Sodium Phosphate (Sodium Phosphate,[place]-Dibasic 133 Ml Enema) 133 ml MD ONCE PRN PRN Reason: Constipation Last Admin: 04/25/23 09:34 Dose: 133 ml Trazodone HCl (Trazodone Hcl 50 Mg Tablet) 50 mg PO BEDTIME MRX1 PRN PRN Reason: Insomnia Allergies Allergies Allergy/AdvReac Type Severity Reaction Status Date / Time ketorolac [From Toradol] AdvReac Itching Verified 02/28/23 14:51 Assessment & Plan Assessment & Plan (1) MDD (major depressive disorder), recurrent severe, without psychosis: Status: Acute Code(s): F33.2 - Major depressive disorder, recurrent severe without psychotic features (2) Opioid dependence: Status: Acute Code(s): F11.20 - Opioid dependence, uncomplicated (3) PTSD (post-traumatic stress disorder): Status: Acute Code(s): F43.10 - Post-traumatic stress disorder, unspecified Plan Patient is a 58-year-old male with history of depression, PTSD, substance abuse and other medical comorbidities including HIV,? COPD, osteoarthritis, who presents for worsening depression and attempted SI by fentanyl overdose in the face of psychosocial stressors, homelessness and sons terminal cancer diagnosis, relapse with substance abuse. -significant psychosocial stressors resulting had an worsening depression SI.? Patient looking for treatment and help with coping with depression so that he can be present to help his son.? Also looking for help with housing -will continue home medication regimen for now which he has been on for years; has a history of ECT which will consider -bipolar disorder seems less likely; patient could not give a clear example of an actual hypomanic/manic episode for diagnosis, however commercial underwriter understands history is obscured by substance abuse; he may benefit from mood stabilizer.? That said patient is facing significant psychosocial stressors that may be little effected by additional medication management Hospital course: 04/20 patient remains depressed; interested in ECT which he reports has helped him in the past.? Ripening Room Operator spoke with Dr. Dill and review chart which indicate patient did have a positive response.? Patient also agrees to lowering gabapentin as needed so that it will not interfere with ECT.? Dr. Dill agrees to ECT consult and will meet with patient tomorrow to further assess.? In the meantime will increase Wellbutrin 04/21/2023 Patient has a history of chronic dysphoria and PTSD worsening over the past 6 months.? Obviously this is contributed to by multiple factors including his son dying of terminal cancer multiple medical issues.? Patient normally stabilized on methadone he did make a suicide attempt and has been increasingly despairing difficulty functioning helpless hopeless despondent.? Frequent flashbacks nightmare patient did have a good response to ECT in 2019 with good benefit that helped both depression and PTSD symptoms patient has had a number of failed medication trials would benefit from ECT for acute depressive symptoms and PTSD acute symptoms and would benefit from more intensive Outpatient step-down as available monitor LFTs and ammonia hospital consult for medical evaluation pre ECT check labs in EKG case reviewed with Dr. Lobo 04/24 tolerated ECT; some increasing hopefulness; tolerating medications well. Continue with treatment plan 04/25 same presentation; wants to continue with ECT 04/26 depressed; continue tx c/o muscle soreness post ECT; will tell Dr. Dill and see if can add/increase muscle relaxant pre or post ect 04/27 stable. continue tx. 04/28/2023 ECT technique changed right temporal left frontal ECT seizure 31 seconds he was changed to etomidate 18 succinylcholine 100 from [facility] 04/29/23: Continue regime and plan of care. 04/30/23: NPO for ECT 05/01/23. ECT trial: ECT #1 04/24 ECT #2 04/25 ECT #3 pending 04/28; NPO Plan: CV Q 15 minute checks Continue ECT adding ibuprofen at pt request for muscle soreness post ect Continue Wellbutrin XL 150 t.i.d.; patient cannot tolerate taking extended-release all at once in the morning however wants help with depression; will try t.i.d. dosing (though this is not typical dosing for XL) Lower to Gabapentin 600 mg t.i.d. since getting ECT; hold nighttime dose prior to ECT BuSpar 25 mg b.i.d. Methadone 70 mg daily Seroquel 300 mg q.h.s.; does not tolerate higher doses Consider mood stabilizer Informed Consent: understands Reason for continued inpatient stay Substantial Risk for: rapid decompensation Time Spent With Patient Time: Total time managing care of this patient today ____ minutes.
[2023-04-30] MEDS: Cyclobenzaprine HCl 10 MG TABLET PO (19:32)
[2023-04-30] MEDS: QUEtiapine Fumarate 300 MG TABLET PO (19:33)
[2023-04-30] MEDS: Melatonin 3 MG TABLET 6 MG PO (19:33)
[2023-04-30 19:35] VITALS: BP 130/68; PULSE 71; RESP 18; TEMP 36.6; O2SAT 96
[2023-05-01] VITALS (9 sets, daily range): BP systolic 114–199; BP diastolic 11–112; PULSE 55–92; RESP 15–20; TEMP 36.1–37.1; O2SAT 95–98
--- NOTE | 2023-05-01 07:50 | MHC.SHP ---
Pre-Procedural Eval Section A Date of Service: 05/01/23 The patient is an INPATIENT: Yes Changes since office visit: No Cold of Flu in the past 2 weeks, No New Medical Problems, No Changes in Medication and No Patient answered all questions The History & Physical has been completed within 30 days and I have reviewed it.: No Section B Chief Complaint: SI Allergies: Allergies Allergy/AdvReac Type Severity Reaction Status Date / Time ketorolac [From Toradol] AdvReac Itching Verified 02/28/23 14:51 Plan I have reviewed the history and physical and performed a pertinent physical examination on my patient. No changes have occurred unless specified. Time Spent With Patient Time: Total time managing care of this patient today ____ minutes.
--- NOTE | 2023-05-01 07:50 | HO.ECTPROC ---
ECT Procedure Note Diagnosis/Treatment Date of Service: 05/01/23 Diagnosis: Major Depressive Disorder Previous ECT Date: 04/28/23 Current Treatment Number: 4 Treatment: Series Interval Clinical Notes: The patient reported mild improvement of depression, still dysphoric. Reported mild headache after last ECT. Today we did Rt temp Lt frontal with no side effects. He had a longer seizure since Gabapentin was lowered. Time: Total time managing care of this patient today __30__ minutes. ECT Settings Device: THYMATRON DGx Electrode Placement: Rt temporal/ Lt frontal Program/Pulse Width: 0.50 Energy Percent: 100 Seizure Duration By EEG (in seconds): 68 By Motor Observation (in seconds): 18 Medications Administration General Anesthetic: Etomidate (18) Muscle Relaxant: Succinylcholine (100) Ancillary Medications Anti-emetics: Zofran - Pre ECT Airway Management Airway Management: Bag Mask Ventilation Treatment Recommendations No Changes Recommended: No change Pt Tolerated Procedure w/o Issue: Yes
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
[2023-05-01] MEDS: busPIRone HCl 5 MG TABLET 25 MG PO ×2 (09:18→13:51)
[2023-05-01] MEDS: buPROPion HCl XL 150 MG TAB.ER.24H PO ×3 (09:18→16:43)
[2023-05-01] MEDS: Gabapentin 300 MG CAPSULE PO ×2 (09:19→16:43)
[2023-05-01] MEDS: Docusate Sodium 100 MG CAPSULE PO (09:19)
[2023-05-01] MEDS: Acetaminophen 325 MG TABLET 650 MG PO (09:19)
[2023-05-01] MEDS: Bictegrav/Emtricit/Tenofov Ala TABLET 1 TAB PO (09:19)
[2023-05-01] MEDS: Nicotine 21 MG PATCH.TD24 TRANSDERMA (09:20)
[2023-05-01] MEDS: Omeprazole 40 MG CAPSULE.DR PO (09:20)
[2023-05-01] MEDS: methADONE HCl 20 MG/2 ML ORAL.CONC 70 MG PO (09:22)
[2023-05-01] MEDS: Fluticasone/Vilanterol 100/25 BLST.W.DEV 1 PUFF INHALE (14:31)
[2023-05-01] MEDS: Melatonin 3 MG TABLET 6 MG PO (19:54)
[2023-05-01] MEDS: Ibuprofen 600 MG TABLET PO (19:54)
[2023-05-01] MEDS: Cyclobenzaprine HCl 10 MG TABLET PO (19:55)
[2023-05-01] MEDS: QUEtiapine Fumarate 300 MG TABLET PO (19:55)
[2023-05-01] MEDS: hydrOXYzine HCL 25 MG TABLET PO (19:56)
--- NOTE | 2023-05-01 22:11 | HO.PSYCHPN ---
Subjective Subjective Date of Service: 05/01/23 Reason For Visit: SI Subjective Notes: Conditional Voluntary Interim History: Patient tolerating ECT feeling somewhat better somewhat demoralized looking for more stable living situation Medication Compliance: Yes Mental Status Exam Mental Status Exam Patient Appearance: Appropriate Patient Orientation: Person, Place, Time and Situation Level of Consciousness: Alert Patient Behavior: Talkative and Good Eye Contact Mood Description: Depressed Affect Description: Flat Patient Cognition Impaired: No Speech Pattern: Spontaneous Speech Memory Description: Intact Hallucinations: None Delusions: Not Present Thought Process: Rumination Thought Content: positive for Perseveration Depressive Symptoms: Unhappiness Judgement: Fair Diagnostics Vital Signs (24Hr): Vital Signs - 24 hr 05/01/23 06:18 05/01/23 06:00 05/01/23 07:52 Temperature 97.3 F 97.3 F 98.7 F Pulse Rate 65 65 92 Respiratory Rate 18 18 15 Blood Pressure 114/75 114/75 199/112 H Pulse Oximetry 97 97 98 Oxygen Delivery Method Room Air Nasal Cannula 05/01/23 07:57 05/01/23 08:02 05/01/23 08:10 Temperature Pulse Rate 75 71 68 Respiratory Rate 18 18 18 Blood Pressure 169/11 H 167/101 H 160/98 H Pulse Oximetry 96 96 96 Oxygen Delivery Method Nasal Cannula Nasal Cannula Nasal Cannula 05/01/23 08:25 05/01/23 09:02 05/01/23 18:00 Temperature 97.1 F 96.9 F 97.1 F Pulse Rate 60 55 65 Respiratory Rate 18 18 20 Blood Pressure 145/76 H 126/74 131/75 Pulse Oximetry 97 95 97 Oxygen Delivery Method Nasal Cannula Room Air BMI result Body Mass Index 26.7 Labs 04/19/23 09:15 04/18/23 09:39 Imaging Radiology Impressions: ITS Impressions Foot X-Ray 04/18/23 10:08 IMPRESSION: Unremarkable right foot. Sacrum and Coccyx X-Ray 04/18/23 10:08 IMPRESSION: 1. Generalized osteopenia. No acute fracture. 2. L5-S1 mild degenerative disc disease. Bilateral hip hardware appears intact. Medications Medications Current Medications Acetaminophen (Acetaminophen 325 Mg Tablet) 650 mg PO Q6H PRN PRN Reason: Headache/Pain Mild Scale (1-3) Last Admin: 04/29/23 11:04 Dose: 650 mg Al Hydroxide/Mg Hydroxide (Magnesium Hydrox/Alum Hydrox 30 Ml Oral.Susp) 30 ml PO Q6H PRN PRN Reason: Heartburn/Nausea Bictegravir/Emtricitabine/Tenofovir (Bictegrav/Emtricit/Tenofov Ala Tablet) 1 tab PO DAILY [facility] Last Admin: 05/01/23 09:19 Dose: 1 tab Bupropion HCl (Bupropion Hcl Xl 150 Mg Tab.Er.24h) 150 mg PO TID@0900,1200,1700 [facility] Last Admin: 05/01/23 16:43 Dose: 150 mg Buspirone HCl (Buspirone Hcl 5 Mg Tablet) 25 mg PO BID@0900,1400 [facility] Last Admin: 05/01/23 13:51 Dose: 25 mg Cyclobenzaprine HCl (Cyclobenzaprine Hcl 10 Mg Tablet) 10 mg PO Q8H PRN PRN Reason: Muscle Spasm Last Admin: 05/01/23 19:55 Dose: 10 mg Docusate Sodium (Docusate Sodium 100 Mg Capsule) 100 mg PO BID [facility] Last Admin: 05/01/23 22:04 Dose: Not Given Fluticasone/Vilanterol (Fluticasone/Vilanterol 100/25 Blst.W.Dev) 1 puff INHALE RDAILY [facility] Last Admin: 05/01/23 14:31 Dose: 1 puff Gabapentin (Gabapentin 300 Mg Capsule) 300 mg PO BID@0830,1630 [facility] Last Admin: 05/01/23 16:43 Dose: 300 mg Hydroxyzine HCl (Hydroxyzine Hcl 25 Mg Tablet) 25 mg PO Q6H PRN PRN Reason: Anxiety Last Admin: 05/01/23 19:56 Dose: 25 mg Ibuprofen (Ibuprofen 600 Mg Tablet) 600 mg PO QID PRN PRN Reason: mild pain Last Admin: 05/01/23 19:54 Dose: 600 mg Magnesium Hydroxide (Milk Of Magnesia 30 Ml Oral.Susp) 30 ml PO DAILY PRN PRN Reason: Constipation Last Admin: 04/30/23 09:07 Dose: 30 ml Melatonin (Melatonin 3 Mg Tablet) 6 mg PO BEDTIME [facility] Last Admin: 05/01/23 19:54 Dose: 6 mg Methadone HCl (Methadone Hcl 20 Mg/2 Ml Oral.Conc) 70 mg PO DAILY [facility] Last Admin: 05/01/23 09:22 Dose: 70 mg Nicotine (Nicotine 21 Mg Patch.Td24) 21 mg TRANSDERMA DAILY [facility] Last Admin: 05/01/23 09:20 Dose: 21 mg Nicotine Polacrilex (Nicotine Polacrilex 2 Mg Gum) 4 mg BUCCAL Q2H PRN PRN Reason: Nicotine Cravings Omeprazole (Omeprazole 40 Mg Capsule.Dr) 40 mg PO DAILY@0630 [facility] Last Admin: 05/01/23 09:20 Dose: 40 mg Psyllium Hydrophilic Mucilloid (Psyllium Seed 3.4 Gm Powd.Pack) 3.4 gm PO DAILY PRN PRN Reason: Constipation Last Admin: 04/30/23 18:59 Dose: 3.4 gm Quetiapine Fumarate (Quetiapine Fumarate 300 Mg Tablet) 300 mg PO BEDTIME [facility] Last Admin: 05/01/23 19:55 Dose: 300 mg Sodium Biphosphate/Sodium Phosphate (Sodium Phosphate,[place]-Dibasic 133 Ml Enema) 133 ml CO ONCE PRN PRN Reason: Constipation Last Admin: 04/25/23 09:34 Dose: 133 ml Sodium Biphosphate/Sodium Phosphate (Sodium Phosphate,[place]-Dibasic 133 Ml Enema) 133 ml CO ONCE PRN PRN Reason: Constipation Trazodone HCl (Trazodone Hcl 50 Mg Tablet) 50 mg PO BEDTIME MRX1 PRN PRN Reason: Insomnia Allergies Allergies Allergy/AdvReac Type Severity Reaction Status Date / Time ketorolac [From Toradol] AdvReac Itching Verified 02/28/23 14:51 Assessment & Plan Assessment & Plan (1) MDD (major depressive disorder), recurrent severe, without psychosis: Status: Acute Code(s): F33.2 - Major depressive disorder, recurrent severe without psychotic features (2) Opioid dependence: Status: Acute Code(s): F11.20 - Opioid dependence, uncomplicated (3) PTSD (post-traumatic stress disorder): Status: Acute Code(s): F43.10 - Post-traumatic stress disorder, unspecified Plan Patient is a 58-year-old male with history of depression, PTSD, substance abuse and other medical comorbidities including HIV,? COPD, osteoarthritis, who presents for worsening depression and attempted SI by fentanyl overdose in the face of psychosocial stressors, homelessness and sons terminal cancer diagnosis, relapse with substance abuse. -significant psychosocial stressors resulting had an worsening depression SI.? Patient looking for treatment and help with coping with depression so that he can be present to help his son.? Also looking for help with housing -will continue home medication regimen for now which he has been on for years; has a history of ECT which will consider -bipolar disorder seems less likely; patient could not give a clear example of an actual hypomanic/manic episode for diagnosis, however financial underwriter understands history is obscured by substance abuse; he may benefit from mood stabilizer.? That said patient is facing significant psychosocial stressors that may be little effected by additional medication management Hospital course: 04/20 patient remains depressed; interested in ECT which he reports has helped him in the past.? Manager Utilization spoke with Dr. Dill and review chart which indicate patient did have a positive response.? Patient also agrees to lowering gabapentin as needed so that it will not interfere with ECT.? Dr. Dill agrees to ECT consult and will meet with patient tomorrow to further assess.? In the meantime will increase Wellbutrin 04/21/2023 Patient has a history of chronic dysphoria and PTSD worsening over the past 6 months.? Obviously this is contributed to by multiple factors including his son dying of terminal cancer multiple medical issues.? Patient normally stabilized on methadone he did make a suicide attempt and has been increasingly despairing difficulty functioning helpless hopeless despondent.? Frequent flashbacks nightmare patient did have a good response to ECT in 2019 with good benefit that helped both depression and PTSD symptoms patient has had a number of failed medication trials would benefit from ECT for acute depressive symptoms and PTSD acute symptoms and would benefit from more intensive Outpatient step-down as available monitor LFTs and ammonia hospital consult for medical evaluation pre ECT check labs in EKG case reviewed with Dr. Lobo 04/24 tolerated ECT; some increasing hopefulness; tolerating medications well. Continue with treatment plan 04/25 same presentation; wants to continue with ECT 04/26 depressed; continue tx c/o muscle soreness post ECT; will tell Dr. Dill and see if can add/increase muscle relaxant pre or post ect 04/27 stable. continue tx. 04/28/2023 ECT technique changed right temporal left frontal ECT seizure 31 seconds he was changed to etomidate 18 succinylcholine 100 from [facility] 04/29/23: Continue regime and plan of care. 04/30/23: NPO for ECT 8/7/23. ECT trial: ECT #1 04/24 ECT #2 04/25 ECT #3 pending 04/28; NPO 05/01/2023 Completed current ECT without difficulty continue plan of care check liver function tests and ammonia level Plan: CV Q 15 minute checks Continue ECT adding ibuprofen at pt request for muscle soreness post ect Continue Wellbutrin XL 150 t.i.d.; patient cannot tolerate taking extended-release all at once in the morning however wants help with depression; will try t.i.d. dosing (though this is not typical dosing for XL) Lower to Gabapentin 600 mg t.i.d. since getting ECT; hold nighttime dose prior to ECT BuSpar 25 mg b.i.d. Methadone 70 mg daily Seroquel 300 mg q.h.s.; does not tolerate higher doses Consider mood stabilizer Reason for continued inpatient stay Substantial Risk for: inability to function and rapid decompensation Time Spent With Patient Time: Total time managing care of this patient today ____ minutes.
[2023-05-02] MEDS: Omeprazole 40 MG CAPSULE.DR PO (06:24)
[2023-05-02 08:00] VITALS: BP 106/68; PULSE 66; RESP 18; TEMP 36.2; O2SAT 98
[2023-05-02] MEDS: methADONE HCl 20 MG/2 ML ORAL.CONC 70 MG PO (08:36)
[2023-05-02] MEDS: Nicotine 21 MG PATCH.TD24 TRANSDERMA (08:38)
[2023-05-02] MEDS: busPIRone HCl 5 MG TABLET 25 MG PO ×2 (08:38→13:00)
[2023-05-02] MEDS: Gabapentin 300 MG CAPSULE PO (08:39)
[2023-05-02] MEDS: Docusate Sodium 100 MG CAPSULE PO ×2 (08:39→19:47)
[2023-05-02] MEDS: buPROPion HCl XL 150 MG TAB.ER.24H PO ×3 (08:39→16:23)
[2023-05-02] MEDS: Bictegrav/Emtricit/Tenofov Ala TABLET 1 TAB PO (08:40)
[2023-05-02] MEDS: Fluticasone/Vilanterol 100/25 BLST.W.DEV 1 PUFF INHALE (08:41)
--- NOTE | 2023-05-02 10:08 | HO.PSYCHPN ---
Subjective Subjective Date of Service: 05/02/23 Reason For Visit: SI Subjective Notes: Conditional Voluntary Interim History: Pt is 58 yo male feeling somewhat better less depressed feels ect helpful Review of Systems ? inc alk phos lft ? wellbutrin Mental Status Exam Mental Status Exam Patient Appearance: Appropriate Patient Orientation: Person, Place, Time and Situation Level of Consciousness: Alert Patient Behavior: Talkative and Good Eye Contact Mood Description: Depressed Affect Description: Flat Patient Cognition Impaired: No Speech Pattern: Spontaneous Speech Memory Description: Intact Hallucinations: None Delusions: Not Present Thought Process: Rumination Thought Content: positive for Perseveration Depressive Symptoms: Unhappiness Judgement: Fair Diagnostics Vital Signs (24Hr): Vital Signs - 24 hr 05/01/23 18:00 05/02/23 08:00 Temperature 97.1 F 97.1 F Pulse Rate 65 66 Respiratory Rate 20 18 Blood Pressure 131/75 106/68 Pulse Oximetry 97 98 Oxygen Delivery Method Room Air Room Air BMI result Body Mass Index 26.7 Labs 04/19/23 09:15 04/18/23 09:39 Imaging Radiology Impressions: ITS Impressions Foot X-Ray 04/18/23 10:08 IMPRESSION: Unremarkable right foot. Sacrum and Coccyx X-Ray 04/18/23 10:08 IMPRESSION: 1. Generalized osteopenia. No acute fracture. 2. L5-S1 mild degenerative disc disease. Bilateral hip hardware appears intact. Medications Medications Current Medications Acetaminophen (Acetaminophen 325 Mg Tablet) 650 mg PO Q6H PRN PRN Reason: Headache/Pain Mild Scale (1-3) Last Admin: 04/29/23 11:04 Dose: 650 mg Al Hydroxide/Mg Hydroxide (Magnesium Hydrox/Alum Hydrox 30 Ml Oral.Susp) 30 ml PO Q6H PRN PRN Reason: Heartburn/Nausea Bictegravir/Emtricitabine/Tenofovir (Bictegrav/Emtricit/Tenofov Ala Tablet) 1 tab PO DAILY [facility] Last Admin: 05/02/23 08:40 Dose: 1 tab Bupropion HCl (Bupropion Hcl Xl 150 Mg Tab.Er.24h) 150 mg PO TID@0900,1200,1700 [facility] Last Admin: 05/02/23 08:39 Dose: 150 mg Buspirone HCl (Buspirone Hcl 5 Mg Tablet) 25 mg PO BID@0900,1400 [facility] Last Admin: 05/02/23 08:38 Dose: 25 mg Cyclobenzaprine HCl (Cyclobenzaprine Hcl 10 Mg Tablet) 10 mg PO Q8H PRN PRN Reason: Muscle Spasm Last Admin: 05/01/23 19:55 Dose: 10 mg Docusate Sodium (Docusate Sodium 100 Mg Capsule) 100 mg PO BID [facility] Last Admin: 05/02/23 08:39 Dose: 100 mg Fluticasone/Vilanterol (Fluticasone/Vilanterol 100/25 Blst.W.Dev) 1 puff INHALE RDAILY [facility] Last Admin: 05/02/23 08:41 Dose: 1 puff Gabapentin (Gabapentin 300 Mg Capsule) 300 mg PO BID@0830,1630 [facility] Last Admin: 05/02/23 08:39 Dose: 300 mg Hydroxyzine HCl (Hydroxyzine Hcl 25 Mg Tablet) 25 mg PO Q6H PRN PRN Reason: Anxiety Last Admin: 05/01/23 19:56 Dose: 25 mg Ibuprofen (Ibuprofen 600 Mg Tablet) 600 mg PO QID PRN PRN Reason: mild pain Last Admin: 05/01/23 19:54 Dose: 600 mg Magnesium Hydroxide (Milk Of Magnesia 30 Ml Oral.Susp) 30 ml PO DAILY PRN PRN Reason: Constipation Last Admin: 04/30/23 09:07 Dose: 30 ml Melatonin (Melatonin 3 Mg Tablet) 6 mg PO BEDTIME [facility] Last Admin: 05/01/23 19:54 Dose: 6 mg Methadone HCl (Methadone Hcl 20 Mg/2 Ml Oral.Conc) 70 mg PO DAILY [facility] Last Admin: 05/02/23 08:36 Dose: 70 mg Nicotine (Nicotine 21 Mg Patch.Td24) 21 mg TRANSDERMA DAILY [facility] Last Admin: 05/02/23 08:38 Dose: 21 mg Nicotine Polacrilex (Nicotine Polacrilex 2 Mg Gum) 4 mg BUCCAL Q2H PRN PRN Reason: Nicotine Cravings Omeprazole (Omeprazole 40 Mg Capsule.Dr) 40 mg PO DAILY@0630 [facility] Last Admin: 05/02/23 06:24 Dose: 40 mg Psyllium Hydrophilic Mucilloid (Psyllium Seed 3.4 Gm Powd.Pack) 3.4 gm PO DAILY PRN PRN Reason: Constipation Last Admin: 04/30/23 18:59 Dose: 3.4 gm Quetiapine Fumarate (Quetiapine Fumarate 300 Mg Tablet) 300 mg PO BEDTIME [facility] Last Admin: 05/01/23 19:55 Dose: 300 mg Sodium Biphosphate/Sodium Phosphate (Sodium Phosphate,[place]-Dibasic 133 Ml Enema) 133 ml NM ONCE PRN PRN Reason: Constipation Last Admin: 04/25/23 09:34 Dose: 133 ml Sodium Biphosphate/Sodium Phosphate (Sodium Phosphate,[place]-Dibasic 133 Ml Enema) 133 ml NM ONCE PRN PRN Reason: Constipation Trazodone HCl (Trazodone Hcl 50 Mg Tablet) 50 mg PO BEDTIME MRX1 PRN PRN Reason: Insomnia Allergies Allergies Allergy/AdvReac Type Severity Reaction Status Date / Time ketorolac [From Toradol] AdvReac Itching Verified 02/28/23 14:51 Assessment & Plan Assessment & Plan (1) MDD (major depressive disorder), recurrent severe, without psychosis: Status: Acute Code(s): F33.2 - Major depressive disorder, recurrent severe without psychotic features (2) Opioid dependence: Status: Acute Code(s): F11.20 - Opioid dependence, uncomplicated (3) PTSD (post-traumatic stress disorder): Status: Acute Code(s): F43.10 - Post-traumatic stress disorder, unspecified Plan Patient is a 58-year-old male with history of depression, PTSD, substance abuse and other medical comorbidities including HIV,? COPD, osteoarthritis, who presents for worsening depression and attempted SI by fentanyl overdose in the face of psychosocial stressors, homelessness and sons terminal cancer diagnosis, relapse with substance abuse. -significant psychosocial stressors resulting had an worsening depression SI.? Patient looking for treatment and help with coping with depression so that he can be present to help his son.? Also looking for help with housing -will continue home medication regimen for now which he has been on for years; has a history of ECT which will consider -bipolar disorder seems less likely; patient could not give a clear example of an actual hypomanic/manic episode for diagnosis, however senior underwriter understands history is obscured by substance abuse; he may benefit from mood stabilizer.? That said patient is facing significant psychosocial stressors that may be little effected by additional medication management Hospital course: 04/20 patient remains depressed; interested in ECT which he reports has helped him in the past.? Tankage Grinder spoke with Dr. Dill and review chart which indicate patient did have a positive response.? Patient also agrees to lowering gabapentin as needed so that it will not interfere with ECT.? Dr. Dill agrees to ECT consult and will meet with patient tomorrow to further assess.? In the meantime will increase Wellbutrin 04/21/2023 Patient has a history of chronic dysphoria and PTSD worsening over the past 6 months.? Obviously this is contributed to by multiple factors including his son dying of terminal cancer multiple medical issues.? Patient normally stabilized on methadone he did make a suicide attempt and has been increasingly despairing difficulty functioning helpless hopeless despondent.? Frequent flashbacks nightmare patient did have a good response to ECT in 2019 with good benefit that helped both depression and PTSD symptoms patient has had a number of failed medication trials would benefit from ECT for acute depressive symptoms and PTSD acute symptoms and would benefit from more intensive Outpatient step-down as available monitor LFTs and ammonia hospital consult for medical evaluation pre ECT check labs in EKG case reviewed with Dr. Lobo 04/24 tolerated ECT; some increasing hopefulness; tolerating medications well. Continue with treatment plan 04/25 same presentation; wants to continue with ECT 04/26 depressed; continue tx c/o muscle soreness post ECT; will tell Dr. Dill and see if can add/increase muscle relaxant pre or post ect 04/27 stable. continue tx. 04/28/2023 ECT technique changed right temporal left frontal ECT seizure 31 seconds he was changed to etomidate 18 succinylcholine 100 from [facility] 04/29/23: Continue regime and plan of care. 04/30/23: NPO for ECT 05/01/23. ECT trial: ECT #1 04/24 ECT #2 04/25 ECT #3 pending 04/28; NPO 05/01/2023 Completed current ECT without difficulty continue plan of care check liver function tests and ammonia level 05/02/23 Improved mood lft inc no confusion hold wellbutrin ck lft ammonoia inc alk phos Plan: CV Q 15 minute checks Continue ECT adding ibuprofen at pt request for muscle soreness post ect Continue Wellbutrin XL 150 t.i.d.; patient cannot tolerate taking extended-release all at once in the morning however wants help with depression; will try t.i.d. dosing (though this is not typical dosing for XL) Lower to Gabapentin 600 mg t.i.d. since getting ECT; hold nighttime dose prior to ECT BuSpar 25 mg b.i.d. Methadone 70 mg daily Seroquel 300 mg q.h.s.; does not tolerate higher doses Consider mood stabilizer Reason for continued inpatient stay Substantial Risk for: inability to function and rapid decompensation Time Spent With Patient Time: Total time managing care of this patient today ____ minutes.
[2023-05-02] MEDS: Acetaminophen 325 MG TABLET 650 MG PO (11:48)
[2023-05-02] MEDS: Ibuprofen 600 MG TABLET PO (16:23)
[2023-05-02 18:39] VITALS: BP 141/73; PULSE 71; TEMP 36.6
[2023-05-02] MEDS: QUEtiapine Fumarate 300 MG TABLET PO (19:46)
[2023-05-02] MEDS: hydrOXYzine HCL 25 MG TABLET PO (19:46)
[2023-05-02] MEDS: Melatonin 3 MG TABLET 6 MG PO (19:46)
[2023-05-02] MEDS: Cyclobenzaprine HCl 10 MG TABLET PO (19:47)
[2023-05-03] VITALS (12 sets, daily range): BP systolic 113–189; BP diastolic 64–145; PULSE 67–91; RESP 10–18; TEMP 36.1–36.7; O2SAT 93–99
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
--- NOTE | 2023-05-03 07:51 | MHC.SHP ---
Pre-Procedural Eval Section A Date of Service: 05/03/23 The patient is an INPATIENT: Yes Changes since office visit: Yes New Medical Problems, Yes Changes in Medication and Yes Patient answered all questions; No Cold of Flu in the past 2 weeks The History & Physical has been completed within 30 days and I have reviewed it.: Yes Section B Chief Complaint: SI Allergies: Allergies Allergy/AdvReac Type Severity Reaction Status Date / Time ketorolac [From Toradol] AdvReac Itching Verified 02/28/23 14:51 Plan I have reviewed the history and physical and performed a pertinent physical examination on my patient. No changes have occurred unless specified. Time Spent With Patient Time: Total time managing care of this patient today ____ minutes.
--- NOTE | 2023-05-03 07:52 | HO.ECTPROC ---
ECT Procedure Note Diagnosis/Treatment Date of Service: 05/03/23 Diagnosis: Major Depressive Disorder Previous ECT Date: 04/28/23 Current Treatment Number: 5 Treatment: Series Interval Clinical Notes: The patient states he is feeling somewhat better no complaint ongoing side effect from ECT Time: Total time managing care of this patient today ____ minutes. ECT Settings Device: THYMATRON DGx Electrode Placement: Rt temporal/ Lt frontal Program/Pulse Width: 0.50 Energy Percent: 100 Seizure Duration By EEG (in seconds): 35 Medications Administration General Anesthetic: Etomidate (18) Muscle Relaxant: Succinylcholine (100) Ancillary Medications Anti-emetics: Zofran - Pre ECT Airway Management Airway Management: Bag Mask Ventilation Treatment Recommendations No Changes Recommended: No change Notes: Received intravenous metoprolol x2 secondary to previous tachycardia has been tolerating this had some delirium symptoms post was given Haldol 2.5 mg with good effect Pt Tolerated Procedure w/o Issue: Yes
[2023-05-03 08:55] LABS: Alanine Aminotransferase 53 U/L (0-40); Albumin Level 3.5 g/dL (3.5-5.0); Alkaline Phosphatase 373 U/L (39-117); Anion Gap 13 (12-20); Aspartate Amino Transferase 85 U/L (5-37); Bilirubin Total 0.6 mg/dL (0.0-1.0); Blood Urea Nitrogen 14 mg/dL (9-16); Carbon Dioxide 27 mmol/L (22-29); Chloride 100 mmol/L (96-108); Creatinine Clr Calc Pharmacy 102.1; Estimated Glomerular Filt Rate > 60; Glucose Random 109 mg/dL (60-115); Potassium 4.9 mmol/L (3.3-5.1); Sodium 135 mmol/L (135-145); Total Protein 8.5 g/dL (6.5-8.0)
[2023-05-03] MEDS: Gabapentin 300 MG CAPSULE PO (09:19)
[2023-05-03] MEDS: Docusate Sodium 100 MG CAPSULE PO ×2 (09:19→19:40)
[2023-05-03] MEDS: busPIRone HCl 5 MG TABLET 25 MG PO ×2 (09:19→14:56)
[2023-05-03] MEDS: Bictegrav/Emtricit/Tenofov Ala TABLET 1 TAB PO (09:19)
[2023-05-03] MEDS: methADONE HCl 20 MG/2 ML ORAL.CONC 70 MG PO (09:20)
[2023-05-03] MEDS: Nicotine 21 MG PATCH.TD24 TRANSDERMA (09:20)
[2023-05-03] MEDS: Fluticasone/Vilanterol 100/25 BLST.W.DEV 1 PUFF INHALE (10:00)
--- NOTE | 2023-05-03 17:03 | HO.PSYCHPN ---
Subjective Subjective Date of Service: 05/03/23 Reason For Visit: SI Subjective Notes: Conditional Voluntary Interim History: See ECT note for full information. The patient did have a transient delirium for few minutes post ECT did well afterwards did have what appeared to be gabapentin withdrawal symptoms later in the day reviewed with patient increase in liver function tests Mental Status Exam Mental Status Exam Narrative: Somewhat tremulous Patient Appearance: Appropriate Patient Orientation: Person, Place, Time and Situation Level of Consciousness: Alert Patient Behavior: Talkative and Good Eye Contact Mood Description: Depressed and Apprehensive Affect Description: Flat and Apprehensive Patient Cognition Impaired: No Speech Pattern: Spontaneous Speech Memory Description: Intact Hallucinations: None Delusions: Not Present Thought Process: Rumination Thought Content: positive for Perseveration Depressive Symptoms: Unhappiness Judgement: Fair Diagnostics Vital Signs (24Hr): Vital Signs - 24 hr 05/02/23 18:39 05/03/23 05:56 05/03/23 06:42 Temperature 97.9 F 97.2 F 97.6 F Pulse Rate 71 67 67 Respiratory Rate 16 16 Blood Pressure 141/73 H 132/79 143/78 H Pulse Oximetry 98 97 Oxygen Delivery Method Room Air Oxygen Flow Rate 05/03/23 08:10 05/03/23 08:15 05/03/23 08:20 Temperature 97.0 F Pulse Rate 91 80 76 Respiratory Rate 12 10 L 16 Blood Pressure 185/100 H 169/145 H Pulse Oximetry 98 93 96 Oxygen Delivery Method Nasal Cannula with ETCO2 Nasal Cannula with ETCO2 Room Air Oxygen Flow Rate 3 3 05/03/23 08:25 05/03/23 08:30 05/03/23 08:35 Temperature Pulse Rate 75 73 71 Respiratory Rate 17 18 18 Blood Pressure 189/93 H 149/101 H Pulse Oximetry 98 99 97 Oxygen Delivery Method Room Air Room Air Oxygen Flow Rate 05/03/23 08:40 05/03/23 09:03 05/03/23 10:09 Temperature 97.2 F 97.4 F Pulse Rate 77 70 68 Respiratory Rate 17 18 16 Blood Pressure 136/89 140/81 H 113/64 Pulse Oximetry 93 95 98 Oxygen Delivery Method Room Air Room Air Oxygen Flow Rate BMI result Body Mass Index 26.7 Labs 04/19/23 09:15 05/03/23 08:15 Labs: Laboratory Results - last 48 hr 05/03/23 05/03/23 08:15 08:15 Sodium 135 Potassium 4.9 D Chloride 100 Carbon Dioxide 27 Anion Gap 13 BUN 14 Creatinine 0.85 Estim Creat Clear Calc 102.1 Estimated GFR > 60 Random Glucose 109 Calcium 9.0 Total Bilirubin 0.6 AST 85 H ALT 53 H Alkaline Phosphatase 373 H Ammonia Cancelled Total Protein 8.5 H Albumin 3.5 Imaging Radiology Impressions: ITS Impressions Foot X-Ray 04/18/23 10:08 IMPRESSION: Unremarkable right foot. Sacrum and Coccyx X-Ray 04/18/23 10:08 IMPRESSION: 1. Generalized osteopenia. No acute fracture. 2. L5-S1 mild degenerative disc disease. Bilateral hip hardware appears intact. Medications Medications Current Medications Acetaminophen (Acetaminophen 325 Mg Tablet) 650 mg PO ONCE PRN PRN Reason: Pain, Mild (Pain Scale 1-3) Al Hydroxide/Mg Hydroxide (Magnesium Hydrox/Alum Hydrox 30 Ml Oral.Susp) 30 ml PO Q6H PRN PRN Reason: Heartburn/Nausea Bictegravir/Emtricitabine/Tenofovir (Bictegrav/Emtricit/Tenofov Ala Tablet) 1 tab PO DAILY [facility] Last Admin: 05/03/23 09:19 Dose: 1 tab Buspirone HCl (Buspirone Hcl 5 Mg Tablet) 25 mg PO BID@0900,1400 [facility] Last Admin: 05/03/23 14:56 Dose: 25 mg Cyclobenzaprine HCl (Cyclobenzaprine Hcl 10 Mg Tablet) 10 mg PO Q8H PRN PRN Reason: Muscle Spasm Last Admin: 05/02/23 19:47 Dose: 10 mg Docusate Sodium (Docusate Sodium 100 Mg Capsule) 100 mg PO BID [facility] Last Admin: 05/03/23 09:19 Dose: 100 mg Fluticasone/Vilanterol (Fluticasone/Vilanterol 100/25 Blst.W.Dev) 1 puff INHALE RDAILY [facility] Last Admin: 05/03/23 10:00 Dose: 1 puff Gabapentin (Gabapentin 300 Mg Capsule) 300 mg PO BID@0830,1630 [facility] Last Admin: 05/03/23 16:50 Dose: Not Given Hydroxyzine HCl (Hydroxyzine Hcl 25 Mg Tablet) 25 mg PO Q6H PRN PRN Reason: Anxiety Last Admin: 05/02/23 19:46 Dose: 25 mg Ibuprofen (Ibuprofen 600 Mg Tablet) 600 mg PO QID PRN PRN Reason: mild pain Last Admin: 05/02/23 16:23 Dose: 600 mg Magnesium Hydroxide (Milk Of Magnesia 30 Ml Oral.Susp) 30 ml PO DAILY PRN PRN Reason: Constipation Last Admin: 04/30/23 09:07 Dose: 30 ml Melatonin (Melatonin 3 Mg Tablet) 6 mg PO BEDTIME [facility] Last Admin: 05/02/23 19:46 Dose: 6 mg Methadone HCl (Methadone Hcl 20 Mg/2 Ml Oral.Conc) 70 mg PO DAILY [facility] Last Admin: 05/03/23 09:20 Dose: 70 mg Nicotine (Nicotine 21 Mg Patch.Td24) 21 mg TRANSDERMA DAILY [facility] Last Admin: 05/03/23 09:20 Dose: 21 mg Nicotine Polacrilex (Nicotine Polacrilex 2 Mg Gum) 4 mg BUCCAL Q2H PRN PRN Reason: Nicotine Cravings Omeprazole (Omeprazole 40 Mg Capsule.Dr) 40 mg PO DAILY@0630 [facility] Last Admin: 05/03/23 05:55 Dose: Not Given Ondansetron HCl (Ondansetron Hcl 4 Mg/2 Ml Vial) 4 mg IVPUSH ONCE PRN PRN Reason: Nausea and Vomiting Psyllium Hydrophilic Mucilloid (Psyllium Seed 3.4 Gm Powd.Pack) 3.4 gm PO DAILY PRN PRN Reason: Constipation Last Admin: 04/30/23 18:59 Dose: 3.4 gm Quetiapine Fumarate (Quetiapine Fumarate 300 Mg Tablet) 300 mg PO BEDTIME [facility] Last Admin: 05/02/23 19:46 Dose: 300 mg Sodium Biphosphate/Sodium Phosphate (Sodium Phosphate,[place]-Dibasic 133 Ml Enema) 133 ml AR ONCE PRN PRN Reason: Constipation Last Admin: 04/25/23 09:34 Dose: 133 ml Sodium Biphosphate/Sodium Phosphate (Sodium Phosphate,[place]-Dibasic 133 Ml Enema) 133 ml AR ONCE PRN PRN Reason: Constipation Trazodone HCl (Trazodone Hcl 50 Mg Tablet) 50 mg PO BEDTIME MRX1 PRN PRN Reason: Insomnia Allergies Allergies Allergy/AdvReac Type Severity Reaction Status Date / Time ketorolac [From Toradol] AdvReac Itching Verified 02/28/23 14:51 Assessment & Plan Assessment & Plan (1) MDD (major depressive disorder), recurrent severe, without psychosis: Status: Acute Code(s): F33.2 - Major depressive disorder, recurrent severe without psychotic features (2) Opioid dependence: Status: Acute Code(s): F11.20 - Opioid dependence, uncomplicated (3) PTSD (post-traumatic stress disorder): Status: Acute Code(s): F43.10 - Post-traumatic stress disorder, unspecified Plan Patient is a 58-year-old male with history of depression, PTSD, substance abuse and other medical comorbidities including HIV,? COPD, osteoarthritis, who presents for worsening depression and attempted SI by fentanyl overdose in the face of psychosocial stressors, homelessness and sons terminal cancer diagnosis, relapse with substance abuse. -significant psychosocial stressors resulting had an worsening depression SI.? Patient looking for treatment and help with coping with depression so that he can be present to help his son.? 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 That said patient is facing significant psychosocial stressors that may be little effected by additional medication management Hospital course: 04/20 patient remains depressed; interested in ECT which he reports has helped him in the past.? Assistant In Nursing spoke with Dr. Dill and review chart which indicate patient did have a positive response.? Patient also agrees to lowering gabapentin as needed so that it will not interfere with ECT.? Dr. Dill agrees to ECT consult and will meet with patient tomorrow to further assess.? In the meantime will increase Wellbutrin 04/21/2023 Patient has a history of chronic dysphoria and PTSD worsening over the past 6 months.? Obviously this is contributed to by multiple factors including his son dying of terminal cancer multiple medical issues.? Patient normally stabilized on methadone he did make a suicide attempt and has been increasingly despairing difficulty functioning helpless hopeless despondent.? Frequent flashbacks nightmare patient did have a good response to ECT in 2019 with good benefit that helped both depression and PTSD symptoms patient has had a number of failed medication trials would benefit from ECT for acute depressive symptoms and PTSD acute symptoms and would benefit from more intensive Outpatient step-down as available monitor LFTs and ammonia hospital consult for medical evaluation pre ECT check labs in EKG case reviewed with Dr. Lobo 04/24 tolerated ECT; some increasing hopefulness; tolerating medications well. Continue with treatment plan 04/25 same presentation; wants to continue with ECT 04/26 depressed; continue tx c/o muscle soreness post ECT; will tell Dr. Dill and see if can add/increase muscle relaxant pre or post ect 04/27 stable. continue tx. 04/28/2023 ECT technique changed right temporal left frontal ECT seizure 31 seconds he was changed to etomidate 18 succinylcholine 100 from [facility] 04/29/23: Continue regime and plan of care. 04/30/23: NPO for ECT 05/01/23. ECT trial: ECT #1 04/24 ECT #2 04/25 ECT #3 pending 04/28; NPO 05/01/2023 Completed current ECT without difficulty continue plan of care check liver function tests and ammonia level 05/02/23 Improved mood lft inc no confusion hold wellbutrin ck lft ammonoia inc alk phos 05/03/2023 Patient tolerated ECT with low-dose haloperidol after. Case reviewed with Dr. Odom gastroenterology noted increased alk-phos question Wellbutrin related question other etiology labs and liver ultrasound ordered GI consult order Plan: CV Q 15 minute checks Continue ECT adding ibuprofen at pt request for muscle soreness post ect Continue Wellbutrin XL 150 t.i.d.; patient cannot tolerate taking extended-release all at once in the morning however wants help with depression; will try t.i.d. dosing (though this is not typical dosing for XL) Lower to Gabapentin 600 mg t.i.d. since getting ECT; hold nighttime dose prior to ECT BuSpar 25 mg b.i.d. Methadone 70 mg daily Seroquel 300 mg q.h.s.; does not tolerate higher doses Consider mood stabilizer Reason for continued inpatient stay Substantial Risk for: inability to function, rapid decompensation and med/psych decompensation Time Spent With Patient Time: Total time managing care of this patient today ____ minutes.
[2023-05-03] MEDS: buPROPion HCL 100 MG TABLET PO (17:16)
[2023-05-03] MEDS: Gabapentin 400 MG CAPSULE 800 MG PO (18:28)
[2023-05-03] MEDS: Cyclobenzaprine HCl 10 MG TABLET PO (19:40)
[2023-05-03] MEDS: Melatonin 3 MG TABLET 6 MG PO (19:40)
[2023-05-03] MEDS: QUEtiapine Fumarate 300 MG TABLET PO (19:40)
[2023-05-04] MEDS: Omeprazole 40 MG CAPSULE.DR PO (06:49)
[2023-05-04 07:00] VITALS: BMI 25.8
[2023-05-04] MEDS: methADONE HCl 20 MG/2 ML ORAL.CONC 70 MG PO (08:38)
[2023-05-04] MEDS: Bictegrav/Emtricit/Tenofov Ala TABLET 1 TAB PO (08:38)
[2023-05-04] MEDS: Docusate Sodium 100 MG CAPSULE PO ×2 (08:38→21:06)
[2023-05-04] MEDS: busPIRone HCl 5 MG TABLET 25 MG PO ×2 (08:38→13:35)
[2023-05-04] MEDS: buPROPion HCL 100 MG TABLET PO ×2 (08:38→12:44)
[2023-05-04] MEDS: Gabapentin 300 MG CAPSULE PO ×3 (08:38→17:07)
[2023-05-04 08:45] VITALS: BP 131/71; PULSE 70; RESP 18; TEMP 36.1; O2SAT 97
[2023-05-04 09:24] LABS: Alanine Aminotransferase 52 U/L (0-40); Albumin Level 3.3 g/dL (3.5-5.0); Alkaline Phosphatase 375 U/L (39-117); Aspartate Amino Transferase 80 U/L (5-37); Bilirubin Direct 0.3 mg/dL (0.0-0.5); Bilirubin Total 0.5 mg/dL (0.0-1.0); Gamma Glutamyl Transpeptidase 507 U/L (11-51)
[2023-05-04] MEDS: Nicotine 21 MG PATCH.TD24 TRANSDERMA (10:04)
[2023-05-04] MEDS: Fluticasone/Vilanterol 100/25 BLST.W.DEV 1 PUFF INHALE (10:04)
[2023-05-04] MEDS: Ibuprofen 600 MG TABLET PO ×2 (11:11→21:06)
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
--- NOTE | 2023-05-04 16:40 | PM.EVENT ---
Event Note Date of Service: 05/04/23 Event Note: GI Consult-Full note dictated Imp: Chronic Hep C, rising Alk phos with elevated GGTP. He has no signs nor symptoms of worsening hepatitis nor liver function based on his exam and other labs. The rising Alk phos from baseline may be due to a higher dose of Buproprion and/or perhaps from medication received during his ECT anesthesia. He denies abdominal pain so I doubt he has a biliary process occurring. Rec: F/U labs in AM including a PT/INR and Liver profile, check results of his abdominal U/S, and avoid known hepatotoxins. 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 He states that he will F/U with his PCP at [facility] regarding the chronic Hep C. D/W patient in detail and he is comfortable with this plan. Thanks. Time Spent With Patient Time: Total time managing care of this patient today ____ minutes.
[2023-05-04 18:00] VITALS: BP 128/80; PULSE 86; RESP 18; TEMP 36.6; O2SAT 96
[2023-05-04] MEDS: QUEtiapine Fumarate 300 MG TABLET PO (21:06)
[2023-05-04] MEDS: Melatonin 3 MG TABLET 6 MG PO (21:06)
[2023-05-04] MEDS: Cyclobenzaprine HCl 10 MG TABLET PO (21:10)
--- NOTE | 2023-05-04 21:19 | P.PNPSI_ITS ---
Subjective Subjective Date of Service: 05/04/23 Reason For Visit: SI Subjective Notes: Conditional Voluntary Interim History: pt seen discussed holding ect x 1 normalize lft had confusion post last ect Medication Compliance: Yes Side effects from medications: Yes Review of Systems inc alk phos Mental Status Exam Mental Status Exam Narrative: Somewhat tremulous Patient Appearance: Appropriate Patient Orientation: Person, Place, Time and Situation Level of Consciousness: Alert Patient Behavior: Talkative and Good Eye Contact Mood Description: Depressed and Apprehensive Affect Description: Flat and Apprehensive Patient Cognition Impaired: No Speech Pattern: Spontaneous Speech Memory Description: Intact Hallucinations: None Delusions: Not Present Thought Process: Rumination Thought Content: positive for Perseveration Depressive Symptoms: Unhappiness Judgement: Fair Diagnostics Vital Signs (24Hr): Vital Signs - 24 hr 05/04/23 08:45 Temperature 97.0 F Pulse Rate 70 Respiratory Rate 18 Blood Pressure 131/71 Pulse Oximetry 97 Oxygen Delivery Method Room Air BMI result Body Mass Index 25.8 Labs 04/19/23 09:15 05/03/23 08:15 Labs: Laboratory Results - last 48 hr 05/03/23 05/03/23 05/04/23 08:15 08:15 08:40 Sodium 135 Potassium 4.9 D Chloride 100 Carbon Dioxide 27 Anion Gap 13 BUN 14 Creatinine 0.85 Estim Creat Clear Calc 102.1 Estimated GFR > 60 Random Glucose 109 Calcium 9.0 Total Bilirubin 0.6 0.5 Direct Bilirubin 0.3 GGT 507 H AST 85 H 80 H ALT 53 H 52 H Alkaline Phosphatase 373 H 375 H Ammonia Cancelled Total Protein 8.5 H 8.0 Albumin 3.5 3.3 L Imaging Radiology Impressions: ITS Impressions Foot X-Ray 04/18/23 10:08 IMPRESSION: Unremarkable right foot. Sacrum and Coccyx X-Ray 04/18/23 10:08 IMPRESSION: 1. Generalized osteopenia. No acute fracture. 2. L5-S1 mild degenerative disc disease. Bilateral hip hardware appears intact. Medications Medications Current Medications Acetaminophen (Acetaminophen 325 Mg Tablet) 650 mg PO ONCE PRN PRN Reason: Pain, Mild (Pain Scale 1-3) Al Hydroxide/Mg Hydroxide (Magnesium Hydrox/Alum Hydrox 30 Ml Oral.Susp) 30 ml PO Q6H PRN PRN Reason: Heartburn/Nausea Bictegravir/Emtricitabine/Tenofovir (Bictegrav/Emtricit/Tenofov Ala Tablet) 1 tab PO DAILY [facility] Last Admin: 05/04/23 08:38 Dose: 1 tab Bupropion HCl (Bupropion Hcl 100 Mg Tablet) 100 mg PO BID@0830,1330 [facility] Last Admin: 05/04/23 12:44 Dose: 100 mg Buspirone HCl (Buspirone Hcl 5 Mg Tablet) 25 mg PO BID@0900,1400 [facility] Last Admin: 05/04/23 13:35 Dose: 25 mg Cyclobenzaprine HCl (Cyclobenzaprine Hcl 10 Mg Tablet) 10 mg PO Q8H PRN PRN Reason: Muscle Spasm Last Admin: 05/03/23 19:40 Dose: 10 mg Docusate Sodium (Docusate Sodium 100 Mg Capsule) 100 mg PO BID [facility] Last Admin: 05/04/23 21:06 Dose: 100 mg Fluticasone/Vilanterol (Fluticasone/Vilanterol 100/25 Blst.W.Dev) 1 puff INHALE RDAILY [facility] Last Admin: 05/04/23 10:04 Dose: 1 puff Gabapentin (Gabapentin 300 Mg Capsule) 300 mg PO BID@0830,1630 [facility] Last Admin: 05/04/23 17:07 Dose: 300 mg Hydroxyzine HCl (Hydroxyzine Hcl 25 Mg Tablet) 25 mg PO Q6H PRN PRN Reason: Anxiety Last Admin: 05/02/23 19:46 Dose: 25 mg Ibuprofen (Ibuprofen 600 Mg Tablet) 600 mg PO QID PRN PRN Reason: mild pain Last Admin: 05/04/23 21:06 Dose: 600 mg Magnesium Hydroxide (Milk Of Magnesia 30 Ml Oral.Susp) 30 ml PO DAILY PRN PRN Reason: Constipation Last Admin: 04/30/23 09:07 Dose: 30 ml Melatonin (Melatonin 3 Mg Tablet) 6 mg PO BEDTIME [facility] Last Admin: 05/04/23 21:06 Dose: 6 mg Methadone HCl (Methadone Hcl 20 Mg/2 Ml Oral.Conc) 70 mg PO DAILY [facility] Last Admin: 05/04/23 08:38 Dose: 70 mg Nicotine (Nicotine 21 Mg Patch.Td24) 21 mg TRANSDERMA DAILY [facility] Last Admin: 05/04/23 10:04 Dose: 21 mg Nicotine Polacrilex (Nicotine Polacrilex 2 Mg Gum) 4 mg BUCCAL Q2H PRN PRN Reason: Nicotine Cravings Omeprazole (Omeprazole 40 Mg Capsule.Dr) 40 mg PO DAILY@0630 [facility] Last Admin: 05/04/23 06:49 Dose: 40 mg Ondansetron HCl (Ondansetron Hcl 4 Mg/2 Ml Vial) 4 mg IVPUSH ONCE PRN PRN Reason: Nausea and Vomiting Psyllium Hydrophilic Mucilloid (Psyllium Seed 3.4 Gm Powd.Pack) 3.4 gm PO DAILY PRN PRN Reason: Constipation Last Admin: 04/30/23 18:59 Dose: 3.4 gm Quetiapine Fumarate (Quetiapine Fumarate 300 Mg Tablet) 300 mg PO BEDTIME [facility] Last Admin: 05/04/23 21:06 Dose: 300 mg Sodium Biphosphate/Sodium Phosphate (Sodium Phosphate,Solano-Dibasic 133 Ml Enema) 133 ml [place] ONCE PRN PRN Reason: Constipation Last Admin: 04/25/23 09:34 Dose: 133 ml Sodium Biphosphate/Sodium Phosphate (Sodium Phosphate,Solano-Dibasic 133 Ml Enema) 133 ml [place] ONCE PRN PRN Reason: Constipation Trazodone HCl (Trazodone Hcl 50 Mg Tablet) 50 mg PO BEDTIME MRX1 PRN PRN Reason: Insomnia Allergies Allergies Allergy/AdvReac Type Severity Reaction Status Date / Time ketorolac [From Toradol] AdvReac Itching Verified 02/28/23 14:51 Assessment & Plan Assessment & Plan (1) MDD (major depressive disorder), recurrent severe, without psychosis: Status: Acute Code(s): F33.2 - Major depressive disorder, recurrent severe without psychotic features (2) Opioid dependence: Status: Acute Code(s): F11.20 - Opioid dependence, uncomplicated (3) PTSD (post-traumatic stress disorder): Status: Acute Code(s): F43.10 - Post-traumatic stress disorder, unspecified Plan Patient is a 58-year-old male with history of depression, PTSD, substance abuse and other medical comorbidities including HIV,? COPD, osteoarthritis, who presents for worsening depression and attempted SI by fentanyl overdose in the face of psychosocial stressors, homelessness and sons terminal cancer diagnosis, relapse with substance abuse. -significant psychosocial stressors resulting had an worsening depression SI.? Patient looking for treatment and help with coping with depression so that he can be present to help his son.? Also looking for help with housing -will continue home medication regimen for now which he has been on for years; has a history of ECT which will consider -bipolar disorder seems less likely; patient could not give a clear example of an actual hypomanic/manic episode for diagnosis, however typewriter operator automatic understands history is obscured by substance abuse; he may benefit from mood stabilizer.? That said patient is facing significant psychosocial stressors that may be little effected by additional medication management Hospital course: 04/20 patient remains depressed; interested in ECT which he reports has helped him in the past.? Machine Adjuster Leader spoke with Dr. Dill and review chart which indicate patient did have a positive response.? Patient also agrees to lowering gabapentin as needed so that it will not interfere with ECT.? Dr. Dill agrees to ECT consult and will meet with patient tomorrow to further assess.? In the meantime will increase Wellbutrin 04/21/2023 Patient has a history of chronic dysphoria and PTSD worsening over the past 6 months.? Obviously this is contributed to by multiple factors including his son dying of terminal cancer multiple medical issues.? Patient normally stabilized on methadone he did make a suicide attempt and has been increasingly despairing difficulty functioning helpless hopeless despondent.? Frequent flashbacks nightmare patient did have a good response to ECT in 2019 with good benefit that helped both depression and PTSD symptoms patient has had a number of failed medication trials would benefit from ECT for acute depressive symptoms and PTSD acute symptoms and would benefit from more intensive Outpatient step-down as available monitor LFTs and ammonia hospital consult for medical evaluation pre ECT check labs in EKG case reviewed with Dr. Lobo 04/24 tolerated ECT; some increasing hopefulness; tolerating medications well. Continue with treatment plan 04/25 same presentation; wants to continue with ECT 04/26 depressed; continue tx c/o muscle soreness post ECT; will tell Dr. Dill and see if can add/increase muscle relaxant pre or post ect 04/27 stable. continue tx. 04/28/2023 ECT technique changed right temporal left frontal ECT seizure 31 seconds he was changed to etomidate 18 succinylcholine 100 from [facility] 04/29/23: Continue regime and plan of care. 04/30/23: NPO for ECT 05/01/23. ECT trial: ECT #1 04/24 ECT #2 04/25 ECT #3 pending 04/28; NPO 05/01/2023 Completed current ECT without difficulty continue plan of care check liver function tests and ammonia level 05/02/23 Improved mood lft inc no confusion hold wellbutrin ck lft ammonoia inc alk phos 05/03/2023 Patient tolerated ECT with low-dose haloperidol after. Case reviewed with Dr. Odom gastroenterology noted increased alk-phos question Wellbutrin related question other etiology labs and liver ultrasound ordered GI consult order 05/04/2023 Hold tomorrow's ECT secondary to confusion post ECT Wellbutrin lowered alk phosphatase seems to have stabilized GI consult read and appreciated Plan: CV Q 15 minute checks Continue ECT adding ibuprofen at pt request for muscle soreness post ect Continue Wellbutrin XL 150 t.i.d.; patient cannot tolerate taking extended- release all at once in the morning however wants help with depression; will try t.i.d. dosing (though this is not typical dosing for XL) Lower to Gabapentin 600 mg t.i.d. since getting ECT; hold nighttime dose prior to ECT BuSpar 25 mg b.i.d. Methadone 70 mg daily Seroquel 300 mg q.h.s.; does not tolerate higher doses Consider mood stabilizer Reason for continued inpatient stay Substantial Risk for: inability to function, rapid decompensation and med/psych decompensation Time Spent With Patient Time: Total time managing care of this patient today ____ minutes.
--- NOTE | 2023-05-04 23:14 | CONS_ITS ---
DATE OF SERVICE: 05/04/2023 REQUESTING PHYSICIAN: Israel Dill M.D. REASON FOR CONSULTATION: Chronic hepatitis C and elevated LFTs. HISTORY OF PRESENT ILLNESS: The patient is a 58-year-old male admitted to the hospital on April 19 for evaluation of depression and PTSD, along with a history of substance abuse. The patient relates a history of daily alcohol use up until about a month or 2 ago, which consisted of at least a six-pack of beer daily. He denies any history of IV drug use but does admit to some cocaine use in the past. He describes having been told of a hepatitis C infection about 3 years ago, but has never seen a recreation teacher, had a liver biopsy, nor been treated for the hepatitis C. He denies any history of jaundice. He denies any history of increasing abdominal girth, edema, jaundice, pruritus, nor fatigue. He denies any known family history of liver disease. He denies use of any significant amounts of NSAIDs, nor acetaminophen at home. His admitting labs on April 18 were notable for a total bilirubin of 1.6, AST 82, ALT 49, and alkaline phosphatase 178. Over the course of the hospitalization during his 2 weeks here, his total bilirubin as of yesterday was 0.6, AST 85, ALT 53, and alkaline phosphatase has climbed to 373. His alkaline phosphatase on April 28 was 308 and on April 24 was 243, as compared to his original one as mentioned above of 178 on April 18. His abdominal CT scan in August 2022 described a somewhat nodular liver border but normal liver size and no sign of any biliary disease or liver mass. There was no splenomegaly. There was no mention of ascites. His most recent hepatitis C viral load in 2018 was over 1 million. His toxicology screen when he got admitted to the hospital on April 18 was positive for fentanyl and positive for cocaine in his urine. CURRENT MEDICATIONS: Include acetaminophen p.r.n., Biktarvy, bupropion, buspirone, cyclobenzaprine, Colace, gabapentin, Haldol p.r.n., hydroxyzine, ibuprofen p.r.n., melatonin, methadone, milk of magnesia p.r.n., nicotine patch, omeprazole 40 mg daily, Zofran p.r.n., Metamucil, Seroquel, and trazodone. PAST MEDICAL HISTORY: Multiple orthopedic surgeries after having fallen off a roof including lower extremity fractures and bilateral hip replacements. He does have a history of HIV infection, opioid dependence, COPD, PTSD, depression, and some back pain. He denies history of IA, diabetes, nor stroke. SOCIAL HISTORY: He is single. Alcohol as above. Previous substance abuse for which he admits that he is sober but again had the above positive toxicology screen on admission. FAMILY HISTORY: Noncontributory. REVIEW OF SYSTEMS: CONSTITUTIONAL: He presently has a good appetite and describes good energy. SKIN: Denies any rash, no pruritus. CARDIAC: No chest pain. PULMONARY: No cough or hemoptysis. GI: He reports his bowel movements have been somewhat hard, but there has been no bleeding. He enjoys a good appetite without any heartburn nor dysphagia. He denies any abdominal pain. NEUROLOGIC: No headache or seizures. PSYCHIATRIC: As above. UROLOGY: No dysuria, no hematuria. PHYSICAL EXAMINATION: GENERAL: The patient is a pleasant, alert, cooperative male, in no distress. SKIN: Warm and dry. No obvious spider angiomata. Nonjaundiced. NECK: Supple. CHEST: Clear. CARDIAC: Normal S1, S2. ABDOMEN: Soft, nondistended, nontender without palpable mass. EXTREMITIES: Without edema. NEUROLOGIC: He is alert and oriented without asterixis. LABORATORY DATA: As above. His GGT was 507 today. Alkaline phosphatase isoenzymes are pending. His total bilirubin today is 0.5, AST is 89, ALT is 52. His alkaline phosphatase is pending as well. He did have an abdominal ultrasound earlier today, the results of which are pending as well. IMPRESSION: Overall the patient appears clinically well and clinically stable in regard to his underlying liver disease. He does have a rising alkaline phosphatase, but the other liver enzymes and bilirubin are very stable, and he does not show any signs of liver decompensation such as jaundice, encephalopathy, ascites, nor GI bleeding. The isolated rising alkaline phosphatase could be medication induced, either perhaps from his increased dose of bupropion and/or some medication he received during his anesthesia for his ECT that he has had here in the hospital. Given no abdominal pain and his otherwise good clinical appearance, I do not think this reflects any acute biliary process. He has had a lot of orthopedic surgeries, but denies any acute musculoskeletal type pain. The elevated alkaline phosphatase is most likely at least partially from the liver due to the elevated GGT. The pending alkaline phosphatase isoenzymes will be helpful to determine if there is any other source such as a skeletal source. At this point, I would continue simply observing him. I would avoid any known hepatotoxins. I have ordered followup laboratories in the morning including another liver profile and PT with INR. The results of his ultrasound will be important to check. I did review with him the need to treat his chronic hepatitis C at some point, and he advised that he will follow up with his primary care physician at the [facility] where he receives his HIV treatment as well. I did advise him that he obviously needs to avoid alcohol on a long-term basis as well. He seemed to have a good understanding of this and was comfortable with the plan. Thank you for the consultation. MD AVINASH Pop/MARIA L / [id number] ARLET
[2023-05-05] MEDS: Omeprazole 40 MG CAPSULE.DR PO (06:33)
[2023-05-05 08:31] LABS: Prothrombin Time 12.7 SEC (11.1-13.3)
[2023-05-05] MEDS: Nicotine 21 MG PATCH.TD24 TRANSDERMA (08:48)
[2023-05-05] MEDS: Bictegrav/Emtricit/Tenofov Ala TABLET 1 TAB PO (08:49)
[2023-05-05] MEDS: Gabapentin 300 MG CAPSULE PO ×2 (08:49→17:45)
[2023-05-05] MEDS: busPIRone HCl 5 MG TABLET 25 MG PO ×2 (08:49→13:30)
[2023-05-05] MEDS: Docusate Sodium 100 MG CAPSULE PO ×2 (08:49→19:25)
[2023-05-05] MEDS: methADONE HCl 20 MG/2 ML ORAL.CONC 70 MG PO (08:49)
[2023-05-05] MEDS: buPROPion HCL 100 MG TABLET PO ×2 (08:49→13:28)
[2023-05-05 09:29] LABS: Alanine Aminotransferase 52 U/L (0-40); Albumin Level 3.1 g/dL (3.5-5.0); Alkaline Phosphatase 358 U/L (39-117); Aspartate Amino Transferase 86 U/L (5-37); Bilirubin Direct 0.2 mg/dL (0.0-0.5); Bilirubin Total 0.5 mg/dL (0.0-1.0); Total Protein 7.7 g/dL (6.5-8.0)
[2023-05-05 09:38] VITALS: BP 103/66; PULSE 69; RESP 20; TEMP 36.2; O2SAT 98
[2023-05-05] MEDS: Fluticasone/Vilanterol 100/25 BLST.W.DEV 1 PUFF INHALE (10:20)
[2023-05-05 18:00] VITALS: BP 132/80; PULSE 72; TEMP 36.8; O2SAT 95
[2023-05-05] MEDS: Melatonin 3 MG TABLET 6 MG PO (19:25)
[2023-05-05] MEDS: QUEtiapine Fumarate 300 MG TABLET PO (19:25)
[2023-05-05] MEDS: Cyclobenzaprine HCl 10 MG TABLET PO (19:26)
[2023-05-06] MEDS: Omeprazole 40 MG CAPSULE.DR PO (06:03)
[2023-05-06 08:45] VITALS: BP 125/77; PULSE 87; RESP 18; TEMP 36.2; O2SAT 98
[2023-05-06] MEDS: Nicotine 21 MG PATCH.TD24 TRANSDERMA (08:50)
[2023-05-06] MEDS: methADONE HCl 20 MG/2 ML ORAL.CONC 70 MG PO (08:50)
[2023-05-06] MEDS: busPIRone HCl 5 MG TABLET 25 MG PO ×2 (08:52→13:14)
[2023-05-06] MEDS: Gabapentin 300 MG CAPSULE PO ×2 (08:53→16:36)
[2023-05-06] MEDS: buPROPion HCL 100 MG TABLET PO ×2 (08:53→13:14)
[2023-05-06] MEDS: Docusate Sodium 100 MG CAPSULE PO ×2 (08:53→19:50)
[2023-05-06] MEDS: Bictegrav/Emtricit/Tenofov Ala TABLET 1 TAB PO (08:54)
[2023-05-06] MEDS: Fluticasone/Vilanterol 100/25 BLST.W.DEV 1 PUFF INHALE (08:54)
--- NOTE | 2023-05-06 12:40 | HO.PSYCHPN ---
Subjective Subjective Date of Service: 05/05/23 Reason For Visit: SI Subjective Notes: Conditional Voluntary Healthcare Proxy: No Interim History: pt lft stabilizing cooperative fearful regarding medical issues Mental Status Exam Mental Status Exam Narrative: Somewhat tremulous Patient Appearance: Appropriate Patient Orientation: Person, Place, Time and Situation Level of Consciousness: Alert Patient Behavior: Talkative and Good Eye Contact Mood Description: Depressed and Apprehensive Affect Description: Flat and Apprehensive Patient Cognition Impaired: No Speech Pattern: Spontaneous Speech Memory Description: Intact Hallucinations: None Delusions: Not Present Thought Process: Rumination Thought Content: positive for Perseveration Depressive Symptoms: Unhappiness Judgement: Fair Diagnostics Vital Signs (24Hr): Vital Signs - 24 hr 05/05/23 18:00 05/06/23 08:45 Temperature 98.3 F 97.2 F Pulse Rate 72 87 Respiratory Rate 18 Blood Pressure 132/80 125/77 Pulse Oximetry 95 98 Oxygen Delivery Method Room Air Room Air BMI result Body Mass Index 25.8 Labs 04/19/23 09:15 05/03/23 08:15 Labs: Laboratory Results - last 48 hr 05/05/23 05/05/23 08:14 08:14 PT 12.7 INR 1.0 Total Bilirubin 0.5 Direct Bilirubin 0.2 AST 86 H ALT 52 H Alkaline Phosphatase 358 H Total Protein 7.7 Albumin 3.1 L Imaging Radiology Impressions: ITS Impressions Foot X-Ray 04/18/23 10:08 IMPRESSION: Unremarkable right foot. Sacrum and Coccyx X-Ray 04/18/23 10:08 IMPRESSION: 1. Generalized osteopenia. No acute fracture. 2. L5-S1 mild degenerative disc disease. Bilateral hip hardware appears intact. Abdomen Ultrasound 05/04/23 15:08 IMPRESSION: 1. Hepatic steatosis. 2. Cholelithiasis. 3. Bosniak class I renal cysts for which no additional imaging or follow up is necessary. 4. There is an additional Bosniak class II complex cyst at the lower pole of the left kidney with multiple septations. This has waxed and waned in size since 2018. There has never been a precontrast and postcontrast study of this renal lesion and dedicated renal precontrast and postcontrast CT scan is recommended for further evaluation. Medications Medications Current Medications Acetaminophen (Acetaminophen 325 Mg Tablet) 650 mg PO ONCE PRN PRN Reason: Pain, Mild (Pain Scale 1-3) Al Hydroxide/Mg Hydroxide (Magnesium Hydrox/Alum Hydrox 30 Ml Oral.Susp) 30 ml PO Q6H PRN PRN Reason: Heartburn/Nausea Bictegravir/Emtricitabine/Tenofovir (Bictegrav/Emtricit/Tenofov Ala Tablet) 1 tab PO DAILY [facility] Last Admin: 05/06/23 08:54 Dose: 1 tab Bupropion HCl (Bupropion Hcl 100 Mg Tablet) 100 mg PO BID@0830,1330 [facility] Last Admin: 05/06/23 08:53 Dose: 100 mg Buspirone HCl (Buspirone Hcl 5 Mg Tablet) 25 mg PO BID@0900,1400 [facility] Last Admin: 05/06/23 08:52 Dose: 25 mg Cyclobenzaprine HCl (Cyclobenzaprine Hcl 10 Mg Tablet) 10 mg PO Q8H PRN PRN Reason: Muscle Spasm Last Admin: 05/05/23 19:26 Dose: 10 mg Docusate Sodium (Docusate Sodium 100 Mg Capsule) 100 mg PO BID [facility] Last Admin: 05/06/23 08:53 Dose: 100 mg Fluticasone/Vilanterol (Fluticasone/Vilanterol 100/25 Blst.W.Dev) 1 puff INHALE RDAILY [facility] Last Admin: 05/06/23 08:54 Dose: 1 puff Gabapentin (Gabapentin 300 Mg Capsule) 300 mg PO BID@0830,1630 [facility] Last Admin: 05/06/23 08:53 Dose: 300 mg Hydroxyzine HCl (Hydroxyzine Hcl 25 Mg Tablet) 25 mg PO Q6H PRN PRN Reason: Anxiety Last Admin: 05/02/23 19:46 Dose: 25 mg Ibuprofen (Ibuprofen 600 Mg Tablet) 600 mg PO QID PRN PRN Reason: mild pain Last Admin: 05/04/23 21:06 Dose: 600 mg Magnesium Hydroxide (Milk Of Magnesia 30 Ml Oral.Susp) 30 ml PO DAILY PRN PRN Reason: Constipation Last Admin: 04/30/23 09:07 Dose: 30 ml Melatonin (Melatonin 3 Mg Tablet) 6 mg PO BEDTIME [facility] Last Admin: 05/05/23 19:25 Dose: 6 mg Methadone HCl (Methadone Hcl 20 Mg/2 Ml Oral.Conc) 70 mg PO DAILY [facility] Last Admin: 05/06/23 08:50 Dose: 70 mg Nicotine (Nicotine 21 Mg Patch.Td24) 21 mg TRANSDERMA DAILY [facility] Last Admin: 05/06/23 08:50 Dose: 21 mg Nicotine Polacrilex (Nicotine Polacrilex 2 Mg Gum) 4 mg BUCCAL Q2H PRN PRN Reason: Nicotine Cravings Omeprazole (Omeprazole 40 Mg Capsule.Dr) 40 mg PO DAILY@0630 [facility] Last Admin: 05/06/23 06:03 Dose: 40 mg Ondansetron HCl (Ondansetron Hcl 4 Mg/2 Ml Vial) 4 mg IVPUSH ONCE PRN PRN Reason: Nausea and Vomiting Psyllium Hydrophilic Mucilloid (Psyllium Seed 3.4 Gm Powd.Pack) 3.4 gm PO DAILY PRN PRN Reason: Constipation Last Admin: 04/30/23 18:59 Dose: 3.4 gm Quetiapine Fumarate (Quetiapine Fumarate 300 Mg Tablet) 300 mg PO BEDTIME [facility] Last Admin: 05/05/23 19:25 Dose: 300 mg Sodium Biphosphate/Sodium Phosphate (Sodium Phosphate,[place]-Dibasic 133 Ml Enema) 133 ml [place] ONCE PRN PRN Reason: Constipation Last Admin: 04/25/23 09:34 Dose: 133 ml Sodium Biphosphate/Sodium Phosphate (Sodium Phosphate,[place]-Dibasic 133 Ml Enema) 133 ml [place] ONCE PRN PRN Reason: Constipation Trazodone HCl (Trazodone Hcl 50 Mg Tablet) 50 mg PO BEDTIME MRX1 PRN PRN Reason: Insomnia Allergies Allergies Allergy/AdvReac Type Severity Reaction Status Date / Time ketorolac [From Toradol] AdvReac Itching Verified 02/28/23 14:51 Assessment & Plan Assessment & Plan (1) MDD (major depressive disorder), recurrent severe, without psychosis: Status: Acute Code(s): F33.2 - Major depressive disorder, recurrent severe without psychotic features (2) Opioid dependence: Status: Acute Code(s): F11.20 - Opioid dependence, uncomplicated (3) PTSD (post-traumatic stress disorder): Status: Acute Code(s): F43.10 - Post-traumatic stress disorder, unspecified Plan Patient is a 58-year-old male with history of depression, PTSD, substance abuse and other medical comorbidities including HIV,? COPD, osteoarthritis, who presents for worsening depression and attempted SI by fentanyl overdose in the face of psychosocial stressors, homelessness and sons terminal cancer diagnosis, relapse with substance abuse. -significant psychosocial stressors resulting had an worsening depression SI.? Patient looking for treatment and help with coping with depression so that he can be present to help his son.? Also looking for help with housing -will continue home medication regimen for now which he has been on for years; has a history of ECT which will consider -bipolar disorder seems less likely; patient could not give a clear example of an actual hypomanic/manic episode for diagnosis, however commercial insurance underwriter understands history is obscured by substance abuse; he may benefit from mood stabilizer.? That said patient is facing significant psychosocial stressors that may be little effected by additional medication management Hospital course: 04/20 patient remains depressed; interested in ECT which he reports has helped him in the past.? Seed Production Field Supervisor spoke with Dr. Dill and review chart which indicate patient did have a positive response.? Patient also agrees to lowering gabapentin as needed so that it will not interfere with ECT.? Dr. Dill agrees to ECT consult and will meet with patient tomorrow to further assess.? In the meantime will increase Wellbutrin 04/21/2023 Patient has a history of chronic dysphoria and PTSD worsening over the past 6 months.? Obviously this is contributed to by multiple factors including his son dying of terminal cancer multiple medical issues.? Patient normally stabilized on methadone he did make a suicide attempt and has been increasingly despairing difficulty functioning helpless hopeless despondent.? Frequent flashbacks nightmare patient did have a good response to ECT in 2019 with good benefit that helped both depression and PTSD symptoms patient has had a number of failed medication trials would benefit from ECT for acute depressive symptoms and PTSD acute symptoms and would benefit from more intensive Outpatient step-down as available monitor LFTs and ammonia hospital consult for medical evaluation pre ECT check labs in EKG case reviewed with Dr. Lobo 04/24 tolerated ECT; some increasing hopefulness; tolerating medications well. Continue with treatment plan 04/25 same presentation; wants to continue with ECT 04/26 depressed; continue tx c/o muscle soreness post ECT; will tell Dr. Dill and see if can add/increase muscle relaxant pre or post ect 04/27 stable. continue tx. 04/28/2023 ECT technique changed right temporal left frontal ECT seizure 31 seconds he was changed to etomidate 18 succinylcholine 100 from [facility] 04/29/23: Continue regime and plan of care. 04/30/23: NPO for ECT 05/01/23. ECT trial: ECT #1 04/24 ECT #2 04/25 ECT #3 pending 04/28; NPO 05/01/2023 Completed current ECT without difficulty continue plan of care check liver function tests and ammonia level 05/02/23 Improved mood lft inc no confusion hold wellbutrin ck lft ammonoia inc alk phos 05/03/2023 Patient tolerated ECT with low-dose haloperidol after. Case reviewed with Dr. Odom gastroenterology noted increased alk-phos question Wellbutrin related question other etiology labs and liver ultrasound ordered GI consult order 05/04/2023 Hold tomorrow's ECT secondary to confusion post ECT Wellbutrin lowered alk phosphatase seems to have stabilized GI consult read and appreciated 05/05/23 pt depressed anxious ect held x 1 siria lft if stable add mirtazapine Plan: CV Q 15 minute checks Continue ECT adding ibuprofen at pt request for muscle soreness post ect Continue Wellbutrin XL 150 t.i.d.; patient cannot tolerate taking extended-release all at once in the morning however wants help with depression; will try t.i.d. dosing (though this is not typical dosing for XL) Lower to Gabapentin 600 mg t.i.d. since getting ECT; hold nighttime dose prior to ECT BuSpar 25 mg b.i.d. Methadone 70 mg daily Seroquel 300 mg q.h.s.; does not tolerate higher doses Consider mood stabilizer Reason for continued inpatient stay Substantial Risk for: harm to self, inability to function and rapid decompensation Time Spent With Patient Time: Total time managing care of this patient today ____ minutes.
--- NOTE | 2023-05-06 12:49 | P.PNPSI_ITS ---
Subjective Subjective Date of Service: 05/06/23 Reason For Visit: SI Subjective Notes: Conditional Voluntary Interim History: pt with periods anxiety depression Medication Compliance: Yes Diagnostics Vital Signs (24Hr): Vital Signs - 24 hr 05/05/23 18:00 05/06/23 08:45 Temperature 98.3 F 97.2 F Pulse Rate 72 87 Respiratory Rate 18 Blood Pressure 132/80 125/77 Pulse Oximetry 95 98 Oxygen Delivery Method Room Air Room Air BMI result Body Mass Index 25.8 Labs 04/19/23 09:15 05/03/23 08:15 Labs: Laboratory Results - last 48 hr 05/05/23 05/05/23 08:14 08:14 PT 12.7 INR 1.0 Total Bilirubin 0.5 Direct Bilirubin 0.2 AST 86 H ALT 52 H Alkaline Phosphatase 358 H Total Protein 7.7 Albumin 3.1 L Imaging Radiology Impressions: ITS Impressions Foot X-Ray 04/18/23 10:08 IMPRESSION: Unremarkable right foot. Sacrum and Coccyx X-Ray 04/18/23 10:08 IMPRESSION: 1. Generalized osteopenia. No acute fracture. 2. L5-S1 mild degenerative disc disease. Bilateral hip hardware appears intact. Abdomen Ultrasound 05/04/23 15:08 IMPRESSION: 1. Hepatic steatosis. 2. Cholelithiasis. 3. Bosniak class I renal cysts for which no additional imaging or follow up is necessary. 4. There is an additional Bosniak class II complex cyst at the lower pole of the left kidney with multiple septations. This has waxed and waned in size since 2018. There has never been a precontrast and postcontrast study of this renal lesion and dedicated renal precontrast and postcontrast CT scan is recommended for further evaluation. Medications Medications Current Medications Acetaminophen (Acetaminophen 325 Mg Tablet) 650 mg PO ONCE PRN PRN Reason: Pain, Mild (Pain Scale 1-3) Al Hydroxide/Mg Hydroxide (Magnesium Hydrox/Alum Hydrox 30 Ml Oral.Susp) 30 ml PO Q6H PRN PRN Reason: Heartburn/Nausea Bictegravir/Emtricitabine/Tenofovir (Bictegrav/Emtricit/Tenofov Ala Tablet) 1 tab PO DAILY [facility] Last Admin: 05/06/23 08:54 Dose: 1 tab Bupropion HCl (Bupropion Hcl 100 Mg Tablet) 100 mg PO BID@0830,1330 [facility] Last Admin: 05/06/23 08:53 Dose: 100 mg Buspirone HCl (Buspirone Hcl 5 Mg Tablet) 25 mg PO BID@0900,1400 [facility] Last Admin: 05/06/23 08:52 Dose: 25 mg Cyclobenzaprine HCl (Cyclobenzaprine Hcl 10 Mg Tablet) 10 mg PO Q8H PRN PRN Reason: Muscle Spasm Last Admin: 05/05/23 19:26 Dose: 10 mg Docusate Sodium (Docusate Sodium 100 Mg Capsule) 100 mg PO BID [facility] Last Admin: 05/06/23 08:53 Dose: 100 mg Fluticasone/Vilanterol (Fluticasone/Vilanterol 100/25 Blst.W.Dev) 1 puff INHALE RDAILY [facility] Last Admin: 05/06/23 08:54 Dose: 1 puff Gabapentin (Gabapentin 300 Mg Capsule) 300 mg PO BID@0830,1630 [facility] Last Admin: 05/06/23 08:53 Dose: 300 mg Hydroxyzine HCl (Hydroxyzine Hcl 25 Mg Tablet) 25 mg PO Q6H PRN PRN Reason: Anxiety Last Admin: 05/02/23 19:46 Dose: 25 mg Ibuprofen (Ibuprofen 600 Mg Tablet) 600 mg PO QID PRN PRN Reason: mild pain Last Admin: 05/04/23 21:06 Dose: 600 mg Magnesium Hydroxide (Milk Of Magnesia 30 Ml Oral.Susp) 30 ml PO DAILY PRN PRN Reason: Constipation Last Admin: 04/30/23 09:07 Dose: 30 ml Melatonin (Melatonin 3 Mg Tablet) 6 mg PO BEDTIME [facility] Last Admin: 05/05/23 19:25 Dose: 6 mg Methadone HCl (Methadone Hcl 20 Mg/2 Ml Oral.Conc) 70 mg PO DAILY [facility] Last Admin: 05/06/23 08:50 Dose: 70 mg Nicotine (Nicotine 21 Mg Patch.Td24) 21 mg TRANSDERMA DAILY [facility] Last Admin: 05/06/23 08:50 Dose: 21 mg Nicotine Polacrilex (Nicotine Polacrilex 2 Mg Gum) 4 mg BUCCAL Q2H PRN PRN Reason: Nicotine Cravings Omeprazole (Omeprazole 40 Mg Capsule.Dr) 40 mg PO DAILY@0630 [facility] Last Admin: 05/06/23 06:03 Dose: 40 mg Ondansetron HCl (Ondansetron Hcl 4 Mg/2 Ml Vial) 4 mg IVPUSH ONCE PRN PRN Reason: Nausea and Vomiting Psyllium Hydrophilic Mucilloid (Psyllium Seed 3.4 Gm Powd.Pack) 3.4 gm PO DAILY PRN PRN Reason: Constipation Last Admin: 04/30/23 18:59 Dose: 3.4 gm Quetiapine Fumarate (Quetiapine Fumarate 300 Mg Tablet) 300 mg PO BEDTIME [facility] Last Admin: 05/05/23 19:25 Dose: 300 mg Sodium Biphosphate/Sodium Phosphate (Sodium Phosphate,[place]-Dibasic 133 Ml Enema) 133 ml [place] ONCE PRN PRN Reason: Constipation Last Admin: 04/25/23 09:34 Dose: 133 ml Sodium Biphosphate/Sodium Phosphate (Sodium Phosphate,[place]-Dibasic 133 Ml Enema) 133 ml [place] ONCE PRN PRN Reason: Constipation Trazodone HCl (Trazodone Hcl 50 Mg Tablet) 50 mg PO BEDTIME MRX1 PRN PRN Reason: Insomnia Allergies Allergies Allergy/AdvReac Type Severity Reaction Status Date / Time ketorolac [From Toradol] AdvReac Itching Verified 02/28/23 14:51 Assessment & Plan Assessment & Plan (1) MDD (major depressive disorder), recurrent severe, without psychosis: Status: Acute Code(s): F33.2 - Major depressive disorder, recurrent severe without psychotic features (2) Opioid dependence: Status: Acute Code(s): F11.20 - Opioid dependence, uncomplicated (3) PTSD (post-traumatic stress disorder): Status: Acute Code(s): F43.10 - Post-traumatic stress disorder, unspecified Plan Patient is a 58-year-old male with history of depression, PTSD, substance abuse and other medical comorbidities including HIV,? COPD, osteoarthritis, who presents for worsening depression and attempted SI by fentanyl overdose in the face of psychosocial stressors, homelessness and sons terminal cancer diagnosis, relapse with substance abuse. -significant psychosocial stressors resulting had an worsening depression SI.? Patient looking for treatment and help with coping with depression so that he can be present to help his son.? Also looking for help with housing -will continue home medication regimen for now which he has been on for years; has a history of ECT which will consider -bipolar disorder seems less likely; patient could not give a clear example of an actual hypomanic/manic episode for diagnosis, however typewriter mechanic understands history is obscured by substance abuse; he may benefit from mood stabilizer.? That said patient is facing significant psychosocial stressors that may be little effected by additional medication management Hospital course: 04/20 patient remains depressed; interested in ECT which he reports has helped him in the past.? Senior Sql Server Database Developer spoke with Dr. Dill and review chart which indicate patient did have a positive response.? Patient also agrees to lowering gabapentin as needed so that it will not interfere with ECT.? Dr. Dill agrees to ECT consult and will meet with patient tomorrow to further assess.? In the meantime will increase Wellbutrin 04/21/2023 Patient has a history of chronic dysphoria and PTSD worsening over the past 6 months.? Obviously this is contributed to by multiple factors including his son dying of terminal cancer multiple medical issues.? Patient normally stabilized on methadone he did make a suicide attempt and has been increasingly despairing difficulty functioning helpless hopeless despondent.? Frequent flashbacks nightmare patient did have a good response to ECT in 2018 with good benefit that helped both depression and PTSD symptoms patient has had a number of failed medication trials would benefit from ECT for acute depressive symptoms and PTSD acute symptoms and would benefit from more intensive Outpatient step-down as available monitor LFTs and ammonia hospital consult for medical evaluation pre ECT check labs in EKG case reviewed with Dr. Lobo 04/24 tolerated ECT; some increasing hopefulness; tolerating medications well. Continue with treatment plan 04/25 same presentation; wants to continue with ECT 04/26 depressed; continue tx c/o muscle soreness post ECT; will tell Dr. Dill and see if can add/increase muscle relaxant pre or post ect 04/27 stable. continue tx. 04/28/2023 ECT technique changed right temporal left frontal ECT seizure 31 seconds he was changed to etomidate 18 succinylcholine 100 from [facility] 04/29/23: Continue regime and plan of care. 04/30/23: NPO for ECT 05/01/23. ECT trial: ECT #1 04/24 ECT #2 04/25 ECT #3 pending 04/28; NPO 05/01/2023 Completed current ECT without difficulty continue plan of care check liver function tests and ammonia level 05/02/23 Improved mood lft inc no confusion hold wellbutrin ck lft ammonoia inc alk phos 05/03/2023 Patient tolerated ECT with low-dose haloperidol after. Case reviewed with Dr. Odom gastroenterology noted increased alk-phos question Wellbutrin related question other etiology labs and liver ultrasound ordered GI consult order 05/04/2023 Hold tomorrow's ECT secondary to confusion post ECT Wellbutrin lowered alk phosphatase seems to have stabilized GI consult read and appreciated 05/05/23 pt depressed anxious ect held x 1 siria lft if stable add mirtazapine 05/06/23 cont plan of care follow lft ect Plan: CV Q 15 minute checks Continue ECT adding ibuprofen at pt request for muscle soreness post ect Continue Wellbutrin XL 150 t.i.d.; patient cannot tolerate taking extended- release all at once in the morning however wants help with depression; will try t.i.d. dosing (though this is not typical dosing for XL) Lower to Gabapentin 600 mg t.i.d. since getting ECT; hold nighttime dose prior to ECT BuSpar 25 mg b.i.d. Methadone 70 mg daily Seroquel 300 mg q.h.s.; does not tolerate higher doses Consider mood stabilizer Reason for continued inpatient stay Substantial Risk for: harm to self, inability to function and rapid decompensation Time Spent With Patient Time: Total time managing care of this patient today ____ minutes.
[2023-05-06 16:16] LABS: Alanine Aminotransferase 58 U/L (0-40); Albumin Level 3.4 g/dL (3.5-5.0); Alkaline Phosphatase 367 U/L (39-117); Aspartate Amino Transferase 86 U/L (5-37); Bilirubin Direct 0.3 mg/dL (0.0-0.5); Bilirubin Total 0.5 mg/dL (0.0-1.0); Total Protein 8.1 g/dL (6.5-8.0)
[2023-05-06 18:00] VITALS: BP 118/73; PULSE 83; TEMP 36.2; O2SAT 93
[2023-05-06 19:44] LABS: HCV Log PCR 6.01 Log IU/mL (NOT DETECTED); HepC Viral Load 1020000 IU/mL (NOT DETECTED)
[2023-05-06] MEDS: QUEtiapine Fumarate 300 MG TABLET PO (19:50)
[2023-05-06] MEDS: Cyclobenzaprine HCl 10 MG TABLET PO (19:50)
[2023-05-06] MEDS: Melatonin 3 MG TABLET 6 MG PO (19:51)
[2023-05-07] MEDS: Omeprazole 40 MG CAPSULE.DR PO (06:27)
[2023-05-07] MEDS: Nicotine 21 MG PATCH.TD24 TRANSDERMA (08:45)
[2023-05-07] MEDS: methADONE HCl 20 MG/2 ML ORAL.CONC 70 MG PO (08:45)
[2023-05-07] MEDS: Gabapentin 300 MG CAPSULE PO ×2 (08:48→15:50)
[2023-05-07] MEDS: buPROPion HCL 100 MG TABLET PO ×2 (08:48→13:06)
[2023-05-07] MEDS: Docusate Sodium 100 MG CAPSULE PO ×2 (08:48→19:03)
[2023-05-07] MEDS: Bictegrav/Emtricit/Tenofov Ala TABLET 1 TAB PO (08:48)
[2023-05-07] MEDS: busPIRone HCl 5 MG TABLET 25 MG PO ×2 (08:48→13:06)
[2023-05-07] MEDS: Fluticasone/Vilanterol 100/25 BLST.W.DEV 1 PUFF INHALE (08:49)
[2023-05-07 08:50] VITALS: BP 96/63; PULSE 77; RESP 18; TEMP 36.3; O2SAT 98
--- NOTE | 2023-05-07 12:21 | HO.PSYCHPN ---
Subjective Subjective Date of Service: 05/07/23 Reason For Visit: SI Subjective Notes: Conditional Voluntary Interim History: Patient generally feeling better on lowered Wellbutrin liver function test stable but higher than on admission. Seems with a stratton range of affect Medication Compliance: Yes Side effects from medications: Yes Review of Systems Acute medical concerns: Yes Increased alk-phos Mental Status Exam Mental Status Exam Narrative: Somewhat tremulous Patient Appearance: Appropriate Patient Orientation: Person, Place, Time and Situation Level of Consciousness: Alert Patient Behavior: Talkative and Good Eye Contact Mood Description: Appropriate and Apprehensive Affect Description: Calm and Appropriate Patient Cognition Impaired: No Speech Pattern: Spontaneous Speech Memory Description: Intact Hallucinations: None Delusions: Not Present Thought Process: Rumination Thought Content: positive for Perseveration Depressive Symptoms: Unhappiness Judgement: Good Judgement and Insight: Less isolated improved mood an affect more future oriented Diagnostics Vital Signs (24Hr): Vital Signs - 24 hr 05/06/23 18:00 05/07/23 08:50 Temperature 97.1 F 97.3 F Pulse Rate 83 77 Respiratory Rate 18 Blood Pressure 118/73 96/63 Pulse Oximetry 93 98 Oxygen Delivery Method Room Air Room Air BMI result Body Mass Index 25.8 Labs 04/19/23 09:15 05/03/23 08:15 Labs: Laboratory Results - last 48 hr 05/03/23 05/06/23 08:15 15:51 Total Bilirubin 0.5 Direct Bilirubin 0.3 AST 86 H ALT 58 H Alkaline Phosphatase 367 H Total Protein 8.1 H Albumin 3.4 L Hep C Viral Load 6309017 H Hep C Viral Load Log 6.01 H Imaging Radiology Impressions: ITS Impressions Foot X-Ray 04/18/23 10:08 IMPRESSION: Unremarkable right foot. Sacrum and Coccyx X-Ray 04/18/23 10:08 IMPRESSION: 1. Generalized osteopenia. No acute fracture. 2. L5-S1 mild degenerative disc disease. Bilateral hip hardware appears intact. Abdomen Ultrasound 05/04/23 15:08 IMPRESSION: 1. Hepatic steatosis. 2. Cholelithiasis. 3. Bosniak class I renal cysts for which no additional imaging or follow up is necessary. 4. There is an additional Bosniak class II complex cyst at the lower pole of the left kidney with multiple septations. This has waxed and waned in size since 2018. There has never been a precontrast and postcontrast study of this renal lesion and dedicated renal precontrast and postcontrast CT scan is recommended for further evaluation. Medications Medications Current Medications Acetaminophen (Acetaminophen 325 Mg Tablet) 650 mg PO ONCE PRN PRN Reason: Pain, Mild (Pain Scale 1-3) Al Hydroxide/Mg Hydroxide (Magnesium Hydrox/Alum Hydrox 30 Ml Oral.Susp) 30 ml PO Q6H PRN PRN Reason: Heartburn/Nausea Bictegravir/Emtricitabine/Tenofovir (Bictegrav/Emtricit/Tenofov Ala Tablet) 1 tab PO DAILY [facility] Last Admin: 05/07/23 08:48 Dose: 1 tab Bupropion HCl (Bupropion Hcl 100 Mg Tablet) 100 mg PO BID@0830,1330 [facility] Last Admin: 05/07/23 08:48 Dose: 100 mg Buspirone HCl (Buspirone Hcl 5 Mg Tablet) 25 mg PO BID@0900,1400 [facility] Last Admin: 05/07/23 08:48 Dose: 25 mg Cyclobenzaprine HCl (Cyclobenzaprine Hcl 10 Mg Tablet) 10 mg PO Q8H PRN PRN Reason: Muscle Spasm Last Admin: 05/06/23 19:50 Dose: 10 mg Docusate Sodium (Docusate Sodium 100 Mg Capsule) 100 mg PO BID [facility] Last Admin: 05/07/23 08:48 Dose: 100 mg Fluticasone/Vilanterol (Fluticasone/Vilanterol 100/25 Blst.W.Dev) 1 puff INHALE RDAILY [facility] Last Admin: 05/07/23 08:49 Dose: 1 puff Gabapentin (Gabapentin 300 Mg Capsule) 300 mg PO BID@0830,1630 [facility] Last Admin: 05/07/23 08:48 Dose: 300 mg Hydroxyzine HCl (Hydroxyzine Hcl 25 Mg Tablet) 25 mg PO Q6H PRN PRN Reason: Anxiety Last Admin: 05/02/23 19:46 Dose: 25 mg Ibuprofen (Ibuprofen 600 Mg Tablet) 600 mg PO QID PRN PRN Reason: mild pain Last Admin: 05/04/23 21:06 Dose: 600 mg Magnesium Hydroxide (Milk Of Magnesia 30 Ml Oral.Susp) 30 ml PO DAILY PRN PRN Reason: Constipation Last Admin: 04/30/23 09:07 Dose: 30 ml Melatonin (Melatonin 3 Mg Tablet) 6 mg PO BEDTIME [facility] Last Admin: 05/06/23 19:51 Dose: 6 mg Methadone HCl (Methadone Hcl 20 Mg/2 Ml Oral.Conc) 70 mg PO DAILY [facility] Last Admin: 05/07/23 08:45 Dose: 70 mg Nicotine (Nicotine 21 Mg Patch.Td24) 21 mg TRANSDERMA DAILY [facility] Last Admin: 05/07/23 08:45 Dose: 21 mg Nicotine Polacrilex (Nicotine Polacrilex 2 Mg Gum) 4 mg BUCCAL Q2H PRN PRN Reason: Nicotine Cravings Omeprazole (Omeprazole 40 Mg Capsule.Dr) 40 mg PO DAILY@0630 [facility] Last Admin: 05/07/23 06:27 Dose: 40 mg Ondansetron HCl (Ondansetron Hcl 4 Mg/2 Ml Vial) 4 mg IVPUSH ONCE PRN PRN Reason: Nausea and Vomiting Psyllium Hydrophilic Mucilloid (Psyllium Seed 3.4 Gm Powd.Pack) 3.4 gm PO DAILY PRN PRN Reason: Constipation Last Admin: 04/30/23 18:59 Dose: 3.4 gm Quetiapine Fumarate (Quetiapine Fumarate 300 Mg Tablet) 300 mg PO BEDTIME [facility] Last Admin: 05/06/23 19:50 Dose: 300 mg Sodium Biphosphate/Sodium Phosphate (Sodium Phosphate,Waldo-Dibasic 133 Ml Enema) 133 ml UT ONCE PRN PRN Reason: Constipation Last Admin: 04/25/23 09:34 Dose: 133 ml Sodium Biphosphate/Sodium Phosphate (Sodium Phosphate,Waldo-Dibasic 133 Ml Enema) 133 ml UT ONCE PRN PRN Reason: Constipation Trazodone HCl (Trazodone Hcl 50 Mg Tablet) 50 mg PO BEDTIME MRX1 PRN PRN Reason: Insomnia Allergies Allergies Allergy/AdvReac Type Severity Reaction Status Date / Time ketorolac [From Toradol] AdvReac Itching Verified 02/28/23 14:51 Assessment & Plan Assessment & Plan (1) MDD (major depressive disorder), recurrent severe, without psychosis: Status: Acute Code(s): F33.2 - Major depressive disorder, recurrent severe without psychotic features (2) Opioid dependence: Status: Acute Code(s): F11.20 - Opioid dependence, uncomplicated (3) PTSD (post-traumatic stress disorder): Status: Acute Code(s): F43.10 - Post-traumatic stress disorder, unspecified Plan Patient is a 58-year-old male with history of depression, PTSD, substance abuse and other medical comorbidities including HIV,? COPD, osteoarthritis, who presents for worsening depression and attempted SI by fentanyl overdose in the face of psychosocial stressors, homelessness and sons terminal cancer diagnosis, relapse with substance abuse. -significant psychosocial stressors resulting had an worsening depression SI.? Patient looking for treatment and help with coping with depression so that he can be present to help his son.? Also looking for help with housing -will continue home medication regimen for now which he has been on for years; has a history of ECT which will consider -bipolar disorder seems less likely; patient could not give a clear example of an actual hypomanic/manic episode for diagnosis, however instructional writer understands history is obscured by substance abuse; he may benefit from mood stabilizer.? That said patient is facing significant psychosocial stressors that may be little effected by additional medication management Hospital course: 04/20 patient remains depressed; interested in ECT which he reports has helped him in the past.? Python Java Developer spoke with Dr. Dill and review chart which indicate patient did have a positive response.? Patient also agrees to lowering gabapentin as needed so that it will not interfere with ECT.? Dr. Dill agrees to ECT consult and will meet with patient tomorrow to further assess.? In the meantime will increase Wellbutrin 04/21/2023 Patient has a history of chronic dysphoria and PTSD worsening over the past 6 months.? Obviously this is contributed to by multiple factors including his son dying of terminal cancer multiple medical issues.? Patient normally stabilized on methadone he did make a suicide attempt and has been increasingly despairing difficulty functioning helpless hopeless despondent.? Frequent flashbacks nightmare patient did have a good response to ECT in 2019 with good benefit that helped both depression and PTSD symptoms patient has had a number of failed medication trials would benefit from ECT for acute depressive symptoms and PTSD acute symptoms and would benefit from more intensive Outpatient step-down as available monitor LFTs and ammonia hospital consult for medical evaluation pre ECT check labs in EKG case reviewed with Dr. Lobo 04/24 tolerated ECT; some increasing hopefulness; tolerating medications well. Continue with treatment plan 04/25 same presentation; wants to continue with ECT 04/26 depressed; continue tx c/o muscle soreness post ECT; will tell Dr. Dill and see if can add/increase muscle relaxant pre or post ect 04/27 stable. continue tx. 04/28/2023 ECT technique changed right temporal left frontal ECT seizure 31 seconds he was changed to etomidate 18 succinylcholine 100 from [facility] 04/29/23: Continue regime and plan of care. 04/30/23: NPO for ECT 05/01/23. ECT trial: ECT #1 04/24 ECT #2 04/25 ECT #3 pending 04/28; NPO 05/01/2023 Completed current ECT without difficulty continue plan of care check liver function tests and ammonia level 05/02/23 Improved mood lft inc no confusion hold wellbutrin ck lft ammonoia inc alk phos 05/03/2023 Patient tolerated ECT with low-dose haloperidol after. Case reviewed with Dr. Odom gastroenterology noted increased alk-phos question Wellbutrin related question other etiology labs and liver ultrasound ordered GI consult order 05/04/2023 Hold tomorrow's ECT secondary to confusion post ECT Wellbutrin lowered alk phosphatase seems to have stabilized GI consult read and appreciated 05/05/23 pt depressed anxious ect held x 1 siria lft if stable add mirtazapine 05/06/23 cont plan of care follow lft ect 05/07/2023 ECT in a.m. mood improved less anxious and irritable on lower dose of Wellbutrin still not clear why alk-phos increased may benefit from read consult with Dr. Odom Plan: CV Q 15 minute checks Continue ECT adding ibuprofen at pt request for muscle soreness post ect Continue Wellbutrin XL 150 t.i.d.; patient cannot tolerate taking extended-release all at once in the morning however wants help with depression; will try t.i.d. dosing (though this is not typical dosing for XL) Lower to Gabapentin 600 mg t.i.d. since getting ECT; hold nighttime dose prior to ECT BuSpar 25 mg b.i.d. Methadone 70 mg daily Seroquel 300 mg q.h.s.; does not tolerate higher doses Consider mood stabilizer Reason for continued inpatient stay Substantial Risk for: inability to function and rapid decompensation Time Spent With Patient Time: Total time managing care of this patient today ____ minutes.
[2023-05-07 15:55] VITALS: BP 130/75; PULSE 82; TEMP 36; O2SAT 97
[2023-05-07] MEDS: Melatonin 3 MG TABLET 6 MG PO (19:02)
[2023-05-07] MEDS: QUEtiapine Fumarate 300 MG TABLET PO (19:02)
[2023-05-07] MEDS: Cyclobenzaprine HCl 10 MG TABLET PO (19:06)
[2023-05-08] VITALS (10 sets, daily range): BP systolic 111–183; BP diastolic 73–96; PULSE 67–99; RESP 10–18; TEMP 36.1–36.8; O2SAT 92–99
--- NOTE | 2023-05-08 07:48 | MHC.SHP ---
Pre-Procedural Eval Section A Date of Service: 05/08/23 The patient is an INPATIENT: Yes Changes since office visit: No Cold of Flu in the past 2 weeks, No New Medical Problems, No Changes in Medication and No Patient answered all questions The History & Physical has been completed within 30 days and I have reviewed it.: Yes Section B Chief Complaint: SI Allergies: Allergies Allergy/AdvReac Type Severity Reaction Status Date / Time ketorolac [From Toradol] AdvReac Itching Verified 02/28/23 14:51 Plan I have reviewed the history and physical and performed a pertinent physical examination on my patient. No changes have occurred unless specified. Time Spent With Patient Time: Total time managing care of this patient today ____ minutes.
--- NOTE | 2023-05-08 08:02 | HO.ECTPROC ---
ECT Procedure Note Diagnosis/Treatment Date of Service: 05/08/23 Diagnosis: Major Depressive Disorder Previous ECT Date: 05/05/23 Current Treatment Number: 6 Treatment: Series Interval Clinical Notes: The patient reported mild improvement of dysphoria, still depressed. No side effects reported with the last procedure. Last time, he was delirious post ECT and needed Haldol 2.5 mg Time: Total time managing care of this patient today __30__ minutes. ECT Settings Device: THYMATRON DGx Electrode Placement: Rt temporal/ Lt frontal Program/Pulse Width: 0.50 Energy Percent: 100 Seizure Duration By EEG (in seconds): 32 By Motor Observation (in seconds): 20 Medications Administration General Anesthetic: Etomidate (18) Muscle Relaxant: Succinylcholine (100) Ancillary Medications Anti-emetics: Zofran - Pre ECT Airway Management Airway Management: Bag Mask Ventilation Treatment Recommendations No Changes Recommended: No change Pt Tolerated Procedure w/o Issue: Yes
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
[2023-05-08] MEDS: Nicotine 21 MG PATCH.TD24 TRANSDERMA (09:34)
[2023-05-08] MEDS: methADONE HCl 20 MG/2 ML ORAL.CONC 70 MG PO (09:34)
[2023-05-08] MEDS: Acetaminophen 325 MG TABLET 650 MG PO (09:37)
[2023-05-08] MEDS: busPIRone HCl 5 MG TABLET 25 MG PO ×2 (09:37→13:30)
[2023-05-08] MEDS: Bictegrav/Emtricit/Tenofov Ala TABLET 1 TAB PO (09:38)
[2023-05-08] MEDS: Ibuprofen 600 MG TABLET PO ×2 (09:38→18:24)
[2023-05-08] MEDS: Gabapentin 300 MG CAPSULE PO ×2 (09:39→16:27)
[2023-05-08] MEDS: buPROPion HCL 100 MG TABLET PO ×2 (09:39→13:30)
[2023-05-08] MEDS: Omeprazole 40 MG CAPSULE.DR PO (09:39)
[2023-05-08] MEDS: Docusate Sodium 100 MG CAPSULE PO ×2 (09:39→19:39)
[2023-05-08] MEDS: Fluticasone/Vilanterol 100/25 BLST.W.DEV 1 PUFF INHALE (09:40)
--- NOTE | 2023-05-08 10:11 | HO.PSYCHPN ---
Subjective Subjective Date of Service: 05/08/23 Reason For Visit: SI Interim History: met with patient; discussed with team; reviewed progress notes Patient says mood has improved; some lingering headache from today's ECT but overall reports he is feeling better. Wondering if he should have more ECT or if 6 treatments is enough; will continue to discuss with Dr. Dill. Also wondered about ECT as an outpatient for maintenance. Discussed substance abuse. Patient wants to switch from Methadone to suboxone; says etoh more a problem than opiates and going to clinic daily is more than he needs. Mental Status Exam Mental Status Exam Narrative: Pt is alert and oriented; behavior is cooperative, friendly, calm; patient is not in distress; dressed in casual attire, a bit unkempt but with adequate hygiene; mood is described as improved and affect congruent; eye contact appropriate; Speech is normal rate, volume and prosody and not pressured; no psychomotor retardation present; thought process is organized and goal directed; Thought content is on treatment; otherwise pertinent to relevant topics and without any delusional content, paranoid ideations or grandiosity; no SI; no HI. There is no evidence of perceptual disturbance. Patients insight and judgment fair Diagnostics Vital Signs (24Hr): Vital Signs - 24 hr 05/07/23 15:55 05/08/23 06:16 05/08/23 06:44 Temperature 96.8 F 97.0 F 97.7 F Pulse Rate 82 67 72 Respiratory Rate 16 16 Blood Pressure 130/75 147/74 H 160/82 H Pulse Oximetry 97 98 95 Oxygen Delivery Method Room Air Room Air Oxygen Flow Rate 05/08/23 08:17 05/08/23 08:22 05/08/23 08:27 Temperature 98 F Pulse Rate 99 84 86 Respiratory Rate 12 13 10 L Blood Pressure 183/92 H 163/94 H 155/96 H Pulse Oximetry 96 95 99 Oxygen Delivery Method Nasal Cannula with ETCO2 Nasal Cannula with ETCO2 Nasal Cannula with ETCO2 Oxygen Flow Rate 3 3 3 05/08/23 08:32 05/08/23 08:46 05/08/23 09:01 Temperature 97.8 F Pulse Rate 83 82 78 Respiratory Rate 12 12 14 Blood Pressure 145/74 H 136/89 111/83 Pulse Oximetry 99 92 95 Oxygen Delivery Method Nasal Cannula with ETCO2 Room Air Room Air Oxygen Flow Rate 2 05/08/23 09:45 Temperature 98.3 F Pulse Rate 72 Respiratory Rate 18 Blood Pressure 144/73 H Pulse Oximetry 94 Oxygen Delivery Method Oxygen Flow Rate BMI result Body Mass Index 25.8 Labs 04/19/23 09:15 05/03/23 08:15 Labs: Laboratory Results - last 48 hr 05/03/23 05/06/23 08:15 15:51 Total Bilirubin 0.5 Direct Bilirubin 0.3 AST 86 H ALT 58 H Alkaline Phosphatase 367 H Total Protein 8.1 H Albumin 3.4 L Hep C Viral Load [id number] H Hep C Viral Load Log 6.01 H Imaging Radiology Impressions: ITS Impressions Foot X-Ray 04/18/23 10:08 IMPRESSION: Unremarkable right foot. Sacrum and Coccyx X-Ray 04/18/23 10:08 IMPRESSION: 1. Generalized osteopenia. No acute fracture. 2. L5-S1 mild degenerative disc disease. Bilateral hip hardware appears intact. Abdomen Ultrasound 05/04/23 15:08 IMPRESSION: 1. Hepatic steatosis. 2. Cholelithiasis. 3. Bosniak class I renal cysts for which no additional imaging or follow up is necessary. 4. There is an additional Bosniak class II complex cyst at the lower pole of the left kidney with multiple septations. This has waxed and waned in size since 2018. There has never been a precontrast and postcontrast study of this renal lesion and dedicated renal precontrast and postcontrast CT scan is recommended for further evaluation. Medications Medications Current Medications Acetaminophen (Acetaminophen 325 Mg Tablet) 650 mg PO ONCE PRN PRN Reason: Pain, Mild (Pain Scale 1-3) Al Hydroxide/Mg Hydroxide (Magnesium Hydrox/Alum Hydrox 30 Ml Oral.Susp) 30 ml PO Q6H PRN PRN Reason: Heartburn/Nausea Bictegravir/Emtricitabine/Tenofovir (Bictegrav/Emtricit/Tenofov Ala Tablet) 1 tab PO DAILY [facility] Last Admin: 05/08/23 09:38 Dose: 1 tab Bupropion HCl (Bupropion Hcl 100 Mg Tablet) 100 mg PO BID@0830,1330 [facility] Last Admin: 05/08/23 09:39 Dose: 100 mg Buspirone HCl (Buspirone Hcl 5 Mg Tablet) 25 mg PO BID@0900,1400 [facility] Last Admin: 08/14/23 09:37 Dose: 25 mg Cyclobenzaprine HCl (Cyclobenzaprine Hcl 10 Mg Tablet) 10 mg PO Q8H PRN PRN Reason: Muscle Spasm Last Admin: 05/07/23 19:06 Dose: 10 mg Docusate Sodium (Docusate Sodium 100 Mg Capsule) 100 mg PO BID [facility] Last Admin: 05/08/23 09:39 Dose: 100 mg Fluticasone/Vilanterol (Fluticasone/Vilanterol 100/25 Blst.W.Dev) 1 puff INHALE RDAILY [facility] Last Admin: 05/08/23 09:40 Dose: 1 puff Gabapentin (Gabapentin 300 Mg Capsule) 300 mg PO BID@0830,1630 [facility] Last Admin: 05/08/23 09:39 Dose: 300 mg Hydroxyzine HCl (Hydroxyzine Hcl 25 Mg Tablet) 25 mg PO Q6H PRN PRN Reason: Anxiety Last Admin: 05/02/23 19:46 Dose: 25 mg Lactated Ringer's (Lr) 1,000 mls @ 50 mls/hr IVCONT .Q20H [facility] Ibuprofen (Ibuprofen 600 Mg Tablet) 600 mg PO QID PRN PRN Reason: mild pain Last Admin: 05/08/23 09:38 Dose: 600 mg Magnesium Hydroxide (Milk Of Magnesia 30 Ml Oral.Susp) 30 ml PO DAILY PRN PRN Reason: Constipation Last Admin: 04/30/23 09:07 Dose: 30 ml Melatonin (Melatonin 3 Mg Tablet) 6 mg PO BEDTIME [facility] Last Admin: 05/07/23 19:02 Dose: 6 mg Methadone HCl (Methadone Hcl 20 Mg/2 Ml Oral.Conc) 70 mg PO DAILY [facility] Last Admin: 05/08/23 09:34 Dose: 70 mg Nicotine (Nicotine 21 Mg Patch.Td24) 21 mg TRANSDERMA DAILY [facility] Last Admin: 05/08/23 09:34 Dose: 21 mg Nicotine Polacrilex (Nicotine Polacrilex 2 Mg Gum) 4 mg BUCCAL Q2H PRN PRN Reason: Nicotine Cravings Omeprazole (Omeprazole 40 Mg Capsule.Dr) 40 mg PO DAILY@0630 [facility] Last Admin: 05/08/23 09:39 Dose: 40 mg Ondansetron HCl (Ondansetron Hcl 4 Mg/2 Ml Vial) 4 mg IVPUSH ONCE PRN PRN Reason: Nausea and Vomiting Psyllium Hydrophilic Mucilloid (Psyllium Seed 3.4 Gm Powd.Pack) 3.4 gm PO DAILY PRN PRN Reason: Constipation Last Admin: 04/30/23 18:59 Dose: 3.4 gm Quetiapine Fumarate (Quetiapine Fumarate 300 Mg Tablet) 300 mg PO BEDTIME [facility] Last Admin: 05/07/23 19:02 Dose: 300 mg Sodium Biphosphate/Sodium Phosphate (Sodium Phosphate,[place]ama-Dibasic 133 Ml Enema) 133 ml [place] ONCE PRN PRN Reason: Constipation Last Admin: 04/25/23 09:34 Dose: 133 ml Sodium Biphosphate/Sodium Phosphate (Sodium Phosphate,Tama-Dibasic 133 Ml Enema) 133 ml MA ONCE PRN PRN Reason: Constipation Trazodone HCl (Trazodone Hcl 50 Mg Tablet) 50 mg PO BEDTIME MRX1 PRN PRN Reason: Insomnia Allergies Allergies Allergy/AdvReac Type Severity Reaction Status Date / Time ketorolac [From Toradol] AdvReac Itching Verified 02/28/23 14:51 Assessment & Plan Assessment & Plan (1) MDD (major depressive disorder), recurrent severe, without psychosis: Status: Acute Code(s): F33.2 - Major depressive disorder, recurrent severe without psychotic features (2) Opioid dependence: Status: Acute Code(s): F11.20 - Opioid dependence, uncomplicated (3) PTSD (post-traumatic stress disorder): Status: Acute Code(s): F43.10 - Post-traumatic stress disorder, unspecified Plan Patient is a 58-year-old male with history of depression, PTSD, substance abuse and other medical comorbidities including HIV,? COPD, osteoarthritis, who presents for worsening depression and attempted SI by fentanyl overdose in the face of psychosocial stressors, homelessness and sons terminal cancer diagnosis, relapse with substance abuse. -significant psychosocial stressors resulting had an worsening depression SI.? Patient looking for treatment and help with coping with depression so that he can be present to help his son.? Also looking for help with housing -will continue home medication regimen for now which he has been on for years; has a history of ECT which will consider -bipolar disorder seems less likely; patient could not give a clear example of an actual hypomanic/manic episode for diagnosis, however curriculum writer understands history is obscured by substance abuse; he may benefit from mood stabilizer.? That said patient is facing significant psychosocial stressors that may be little effected by additional medication management Plan: CV Q 15 minute checks Discuss if should continue ECT ibuprofen at pt request for muscle soreness post ect Changed to Wellbutrin XL 150 bid. Due to elevated liver enzymes Lower to Gabapentin 600 mg t.i.d. since getting ECT; hold nighttime dose prior to ECT BuSpar 25 mg b.i.d. Methadone 70 mg daily; however will switch to Suboxone START Suboxone, cross taper with methadone Suboxone 0.5mg BID on 05/09 Seroquel 300 mg q.h.s.; does not tolerate higher doses Hospital course: 04/20 patient remains depressed; interested in ECT which he reports has helped him in the past.? Cell Tower Climber spoke with Dr. Dill and review chart which indicate patient did have a positive response.? Patient also agrees to lowering gabapentin as needed so that it will not interfere with ECT.? Dr. Dill agrees to ECT consult and will meet with patient tomorrow to further assess.? In the meantime will increase Wellbutrin 04/21/2023 Patient has a history of chronic dysphoria and PTSD worsening over the past 6 months.? Obviously this is contributed to by multiple factors including his son dying of terminal cancer multiple medical issues.? Patient normally stabilized on methadone he did make a suicide attempt and has been increasingly despairing difficulty functioning helpless hopeless despondent.? Frequent flashbacks nightmare patient did have a good response to ECT in 2018 with good benefit that helped both depression and PTSD symptoms patient has had a number of failed medication trials would benefit from ECT for acute depressive symptoms and PTSD acute symptoms and would benefit from more intensive Outpatient step-down as available monitor LFTs and ammonia hospital consult for medical evaluation pre ECT check labs in EKG case reviewed with Dr. Lobo 04/24 tolerated ECT; some increasing hopefulness; tolerating medications well. Continue with treatment plan 04/25 same presentation; wants to continue with ECT 04/26 depressed; continue tx c/o muscle soreness post ECT; will tell Dr. Dill and see if can add/increase muscle relaxant pre or post ect 04/27 stable. continue tx. 04/28/2023 ECT technique changed right temporal left frontal ECT seizure 31 seconds he was changed to etomidate 18 succinylcholine 100 from [facility] 04/29/23: Continue regime and plan of care. 04/30/23: NPO for ECT 05/01/23. 05/01/2023 Completed current ECT without difficulty continue plan of care check liver function tests and ammonia level 05/02/23 Improved mood lft inc no confusion hold wellbutrin ck lft ammonoia inc alk phos 05/03/2023atient tolerated ECT with low-dose haloperidol after. Case reviewed with Dr. Odom gastroenterology noted increased alk-phos question Wellbutrin related question other etiology labs and liver ultrasound ordered GI consult order 05/04/2023Hold tomorrow's ECT secondary to confusion post ECT Wellbutrin lowered alk phosphatase seems to have stabilized GI consult read and appreciated 05/05/23pt depressed anxious ect held x 1 siria lft if stable add mirtazapine 05/06/23cont plan of care follow lft ect 05/07/2023ECT in a.m. mood improved less anxious and irritable on lower dose of Wellbutrin still not clear why alk-phos increased may benefit from read consult with Dr. Odom 05/08 mood improved; will discuss with Dr. Dill whether not to continue for more ECT trials. Switching from methadone to Suboxone; setting up aftercare Patient educated on: diagnosis, medication risk/benefits, substance abuse and ECT Informed Consent: understands Reason for continued inpatient stay Substantial Risk for: med/psych decompensation Time Spent With Patient Time: Total time managing care of this patient today ____ minutes.
--- NOTE | 2023-05-08 14:10 | PC.NURSE ---
Pt became disoriented around 1240 and reported a 7/10 headache that he has never experienced with prior ECT treatments (unrelieved by medications), MD Dill made aware, no more ECT going forward per MD.
[2023-05-08] MEDS: Buprenorphine/Naloxone 2/0.5mg FILM 0.25 FILM SUBLINGUAL (16:27)
[2023-05-08] MEDS: Cyclobenzaprine HCl 10 MG TABLET PO (18:25)
[2023-05-08] MEDS: QUEtiapine Fumarate 300 MG TABLET PO (19:39)
[2023-05-08] MEDS: Melatonin 3 MG TABLET 6 MG PO (19:40)
[2023-05-09] MEDS: Omeprazole 40 MG CAPSULE.DR PO (06:21)
[2023-05-09] MEDS: busPIRone HCl 5 MG TABLET 25 MG PO ×2 (08:43→13:14)
[2023-05-09] MEDS: Bictegrav/Emtricit/Tenofov Ala TABLET 1 TAB PO (08:44)
[2023-05-09] MEDS: Gabapentin 300 MG CAPSULE PO ×2 (08:45→16:36)
[2023-05-09] MEDS: Docusate Sodium 100 MG CAPSULE PO ×2 (08:45→20:01)
[2023-05-09] MEDS: buPROPion HCL 100 MG TABLET PO ×2 (08:45→13:14)
[2023-05-09] MEDS: methADONE HCl 20 MG/2 ML ORAL.CONC 70 MG PO (08:45)
[2023-05-09] MEDS: Nicotine 21 MG PATCH.TD24 TRANSDERMA (08:48)
[2023-05-09 08:49] VITALS: BP 120/73; PULSE 69; RESP 18; TEMP 36.3; O2SAT 98
--- NOTE | 2023-05-09 10:11 | P.PNPSI_ITS ---
Subjective Subjective Date of Service: 05/09/23 Reason For Visit: SI Interim History: met with patient; discussed with team overall feeling better and thinks he's had enough ECT. Anxiety remains but feels it's tolerable level. No w/drawal symptoms from transfer to Suboxone from methadone. Discussed case further with Dr. Dill who agrees to outpt maintenance ECT if pt can secure a ride. Pt discussing options/aftercare with SW. Mental Status Exam Mental Status Exam Narrative: Pt is alert and oriented; behavior is cooperative, friendly, calm; patient is not in distress; dressed in casual attire, a bit unkempt but with adequate hygiene; mood is described as good and affect congruent; eye contact appropriate; Speech is normal rate, volume and prosody and not pressured; no psychomotor retardation present; thought process is organized and goal directed; Thought content is on treatment; otherwise pertinent to relevant topics and without any delusional content, paranoid ideations or grandiosity; no SI; no HI. There is no evidence of perceptual disturbance. Patients insight and judgment fair Diagnostics Vital Signs (24Hr): Vital Signs - 24 hr 05/08/23 17:57 05/09/23 08:49 Temperature 97.3 F 97.3 F Pulse Rate 74 69 Respiratory Rate 18 Blood Pressure 122/80 120/73 Pulse Oximetry 95 98 Oxygen Delivery Method Room Air Room Air BMI result Body Mass Index 25.8 Labs 04/19/23 09:15 05/03/23 08:15 Imaging Radiology Impressions: ITS Impressions Foot X-Ray 04/18/23 10:08 IMPRESSION: Unremarkable right foot. Sacrum and Coccyx X-Ray 04/18/23 10:08 IMPRESSION: 1. Generalized osteopenia. No acute fracture. 2. L5-S1 mild degenerative disc disease. Bilateral hip hardware appears intact. Abdomen Ultrasound 05/04/23 15:08 IMPRESSION: 1. Hepatic steatosis. 2. Cholelithiasis. 3. Bosniak class I renal cysts for which no additional imaging or follow up is necessary. 4. There is an additional Bosniak class II complex cyst at the lower pole of the left kidney with multiple septations. This has waxed and waned in size since 2018. There has never been a precontrast and postcontrast study of this renal lesion and dedicated renal precontrast and postcontrast CT scan is recommended for further evaluation. Medications Medications Current Medications Acetaminophen (Acetaminophen 325 Mg Tablet) 650 mg PO ONCE PRN PRN Reason: Pain, Mild (Pain Scale 1-3) Al Hydroxide/Mg Hydroxide (Magnesium Hydrox/Alum Hydrox 30 Ml Oral.Susp) 30 ml PO Q6H PRN PRN Reason: Heartburn/Nausea Bictegravir/Emtricitabine/Tenofovir (Bictegrav/Emtricit/Tenofov Ala Tablet) 1 tab PO DAILY [facility] Last Admin: 05/09/23 08:44 Dose: 1 tab Buprenorphine/Naloxone (Buprenorphine/Naloxone 2/0.5mg Tab.Subl) 0.25 tab SUBLINGUAL BID [facility] Stop: 05/09/23 23:59 Buprenorphine/Naloxone (Buprenorphine/Naloxone 2/0.5mg Tab.Subl) 0.5 tab SUBLINGUAL BID [facility] Stop: 05/10/23 21:00 Bupropion HCl (Bupropion Hcl 100 Mg Tablet) 100 mg PO BID@0830,1330 [facility] Last Admin: 05/09/23 08:45 Dose: 100 mg Buspirone HCl (Buspirone Hcl 5 Mg Tablet) 25 mg PO BID@0900,1400 [facility] Last Admin: 05/09/23 08:43 Dose: 25 mg Cyclobenzaprine HCl (Cyclobenzaprine Hcl 10 Mg Tablet) 10 mg PO Q8H PRN PRN Reason: Muscle Spasm Last Admin: 05/08/23 18:25 Dose: 10 mg Docusate Sodium (Docusate Sodium 100 Mg Capsule) 100 mg PO BID [facility] Last Admin: 05/09/23 08:45 Dose: 100 mg Fluticasone/Vilanterol (Fluticasone/Vilanterol 100/25 Blst.W.Dev) 1 puff INHALE RDAILY [facility] Last Admin: 05/09/23 09:07 Dose: Not Given Gabapentin (Gabapentin 300 Mg Capsule) 300 mg PO BID@0830,1630 [facility] Last Admin: 05/09/23 08:45 Dose: 300 mg Hydroxyzine HCl (Hydroxyzine Hcl 25 Mg Tablet) 25 mg PO Q6H PRN PRN Reason: Anxiety Last Admin: 05/02/23 19:46 Dose: 25 mg Ibuprofen (Ibuprofen 600 Mg Tablet) 600 mg PO QID PRN PRN Reason: mild pain Last Admin: 05/08/23 18:24 Dose: 600 mg Magnesium Hydroxide (Milk Of Magnesia 30 Ml Oral.Susp) 30 ml PO DAILY PRN PRN Reason: Constipation Last Admin: 04/30/23 09:07 Dose: 30 ml Melatonin (Melatonin 3 Mg Tablet) 6 mg PO BEDTIME [facility] Last Admin: 05/08/23 19:40 Dose: 6 mg Methadone HCl (Methadone Hcl 20 Mg/2 Ml Oral.Conc) 70 mg PO DAILY [facility] Last Admin: 05/09/23 08:45 Dose: 70 mg Nicotine (Nicotine 21 Mg Patch.Td24) 21 mg TRANSDERMA DAILY [facility] Last Admin: 05/09/23 08:48 Dose: 21 mg Nicotine Polacrilex (Nicotine Polacrilex 2 Mg Gum) 4 mg BUCCAL Q2H PRN PRN Reason: Nicotine Cravings Omeprazole (Omeprazole 40 Mg Capsule.Dr) 40 mg PO DAILY@0630 [facility] Last Admin: 05/09/23 06:21 Dose: 40 mg Ondansetron HCl (Ondansetron Hcl 4 Mg/2 Ml Vial) 4 mg IVPUSH ONCE PRN PRN Reason: Nausea and Vomiting Psyllium Hydrophilic Mucilloid (Psyllium Seed 3.4 Gm Powd.Pack) 3.4 gm PO DAILY PRN PRN Reason: Constipation Last Admin: 04/30/23 18:59 Dose: 3.4 gm Quetiapine Fumarate (Quetiapine Fumarate 300 Mg Tablet) 300 mg PO BEDTIME [facility] Last Admin: 05/08/23 19:39 Dose: 300 mg Sodium Biphosphate/Sodium Phosphate (Sodium Phosphate,Wilkin-Dibasic 133 Ml Enema) 133 ml [place] ONCE PRN PRN Reason: Constipation Last Admin: 04/25/23 09:34 Dose: 133 ml Sodium Biphosphate/Sodium Phosphate (Sodium Phosphate,Wilkin-Dibasic 133 Ml Enema) 133 ml AK ONCE PRN PRN Reason: Constipation Trazodone HCl (Trazodone Hcl 50 Mg Tablet) 50 mg PO BEDTIME MRX1 PRN PRN Reason: Insomnia Allergies Allergies Allergy/AdvReac Type Severity Reaction Status Date / Time ketorolac [From Toradol] AdvReac Itching Verified 02/28/23 14:51 Assessment & Plan Assessment & Plan (1) MDD (major depressive disorder), recurrent severe, without psychosis: Status: Acute Code(s): F33.2 - Major depressive disorder, recurrent severe without psychotic features (2) Opioid dependence: Status: Acute Code(s): F11.20 - Opioid dependence, uncomplicated (3) PTSD (post-traumatic stress disorder): Status: Acute Code(s): F43.10 - Post-traumatic stress disorder, unspecified Plan Patient is a 58-year-old male with history of depression, PTSD, substance abuse and other medical comorbidities including HIV,? COPD, osteoarthritis, who presents for worsening depression and attempted SI by fentanyl overdose in the face of psychosocial stressors, homelessness and sons terminal cancer diagnosis, relapse with substance abuse. -significant psychosocial stressors resulting had an worsening depression SI.? Patient looking for treatment and help with coping with depression so that he can be present to help his son.? Also looking for help with housing -will continue home medication regimen for now which he has been on for years; has a history of ECT which will consider -bipolar disorder seems less likely; patient could not give a clear example of an actual hypomanic/manic episode for diagnosis, however business writer understands history is obscured by substance abuse; he may benefit from mood stabilizer.? That said patient is facing significant psychosocial stressors that may be little effected by additional medication management Plan: CV Q 15 minute checks DC ECT ibuprofen at pt request for muscle soreness post ect Changed to Wellbutrin XL 150 bid. Due to elevated liver enzymes Lower to Gabapentin 600 mg t.i.d. since getting ECT; hold nighttime dose prior to ECT BuSpar 25 mg b.i.d. Methadone 70 mg daily; however will switch to Suboxone START Suboxone, cross taper with methadone Suboxone 0.5mg BID on 05/09 Seroquel 300 mg q.h.s.; does not tolerate higher doses Hospital course: 04/20 patient remains depressed; interested in ECT which he reports has helped him in the past.? Motorcycle Police Officer spoke with Dr. Dill and review chart which indicate patient did have a positive response.? Patient also agrees to lowering g abapentin as needed so that it will not interfere with ECT.? Dr. Dill agrees to ECT consult and will meet with patient tomorrow to further assess.? In the meantime will increase Wellbutrin 04/21/2023 Patient has a history of chronic dysphoria and PTSD worsening over the past 6 months.? Obviously this is contributed to by multiple factors including his son dying of terminal cancer multiple medical issues.? Patient normally stabilized on methadone he did make a suicide attempt and has been increasingly despairing difficulty functioning helpless hopeless despondent.? Frequent flashbacks nightm are patient did have a good response to ECT in 2019 with good benefit that helped both depression and PTSD symptoms patient has had a number of failed medication trials would benefit from ECT for acute depressive symptoms and PTSD acute symptoms and would benefit from more intensive Outpatient step-down as available monitor LFTs and ammonia hospital consult for medical evaluation pre ECT check labs in EKG case reviewed with Dr. Lobo 04/24 tolerated ECT; some increasing hopefulness; tolerating medications well. Continue with treatment plan 04/25 same presentation; wants to continue with ECT 04/26 depressed; continue tx c/o muscle soreness post ECT; will tell Dr. Dill and see if can add/increase muscle relaxant pre or post ect 04/27 stable. continue tx. 04/28/2023 ECT technique changed right temporal left frontal ECT seizure 31 seconds he was changed to etomidate 18 succinylcholine 100 from [facility] 04/29/23: Continue regime and plan of care. 04/30/23: NPO for ECT 05/01/23. 05/01/2023 Completed current ECT without difficulty continue plan of care check liver function tests and ammonia level 05/02/23 Improved mood lft inc no confusion hold wellbutrin ck lft ammonoia inc alk phos 05/03/2023atient tolerated ECT with low-dose haloperidol after. Case reviewed with Dr. Odom gastroenterology noted increased alk-phos question Wellbutrin related question other etiology labs and liver ultrasound ordered GI consult order 05/04/2023Hold tomorrow's ECT secondary to confusion post ECT Wellbutrin lowered alk phosphatase seems to have stabilized GI consult read and appreciated 05/05/23pt depressed anxious ect held x 1 siria lft if stable add mirtazapine 05/06/23cont plan of care follow lft ect 05/07/2023ECT in a.m. mood improved less anxious and irritable on lower dose of Wellbutrin still not clear why alk-phos increased may benefit from read consult with Dr. Odom 05/08 mood improved; will discuss with Dr. Dill whether not to continue for more ECT trials. Switching from methadone to Suboxone; setting up aftercare 05/09 dc ect; pt doing well; continue w/ transfer to suboxone and aftercare set up reached out to ID for Hep C tx Reason for continued inpatient stay Substantial Risk for: stable for discharge Time Spent With Patient Time: Total time managing care of this patient today ____ minutes.
[2023-05-09] MEDS: Ibuprofen 600 MG TABLET PO ×2 (11:19→18:38)
[2023-05-09] MEDS: Buprenorphine/Naloxone 2/0.5mg FILM 0.25 FILM SUBLINGUAL ×2 (11:37→20:33)
[2023-05-09 17:36] VITALS: BP 129/72; PULSE 69; RESP 16; TEMP 35.8; O2SAT 99
[2023-05-09] MEDS: Melatonin 3 MG TABLET 6 MG PO (20:00)
[2023-05-09] MEDS: QUEtiapine Fumarate 300 MG TABLET PO (20:01)
[2023-05-10] MEDS: Omeprazole 40 MG CAPSULE.DR PO (06:26)
[2023-05-10 08:15] VITALS: BP 135/82; PULSE 85; RESP 18; TEMP 35.9; O2SAT 99
[2023-05-10] MEDS: Docusate Sodium 100 MG CAPSULE PO ×2 (08:17→19:36)
[2023-05-10] MEDS: Bictegrav/Emtricit/Tenofov Ala TABLET 1 TAB PO (08:17)
[2023-05-10] MEDS: buPROPion HCL 100 MG TABLET PO ×2 (08:17→12:33)
[2023-05-10] MEDS: Gabapentin 300 MG CAPSULE PO ×2 (08:17→16:14)
[2023-05-10] MEDS: busPIRone HCl 5 MG TABLET 25 MG PO ×2 (08:17→13:53)
[2023-05-10] MEDS: Nicotine 21 MG PATCH.TD24 TRANSDERMA (08:18)
[2023-05-10] MEDS: Buprenorphine/Naloxone 2/0.5mg FILM 0.5 FILM SUBLINGUAL ×2 (08:18→19:38)
[2023-05-10] MEDS: methADONE HCl 20 MG/2 ML ORAL.CONC 70 MG PO (08:37)
--- NOTE | 2023-05-10 10:16 | P.PNPSI_ITS ---
Subjective Subjective Date of Service: 05/10/23 Reason For Visit: SI Interim History: Met with patient; discussed with team Feeling better; asks if gabapentin can be increased back to home dose; va underwriter agreed to titrate; mood remains better anxiety under control. Mental Status Exam Mental Status Exam Narrative: Pt is alert and oriented; behavior is cooperative, friendly, calm; patient is not in distress; dressed in casual attire, a bit unkempt but with adequate hygiene; mood is described as good and affect congruent; eye contact appropriate; Speech is normal rate, volume and prosody and not pressured; no psychomotor retardation present; thought process is organized and goal directed; Thought content is on treatment; otherwise pertinent to relevant topics and without any delusional content, paranoid ideations or grandiosity; no SI; no HI. There is no evidence of perceptual disturbance. Patients insight and judgment fair Diagnostics Vital Signs (24Hr): Vital Signs - 24 hr 05/09/23 17:36 05/10/23 08:15 Temperature 96.4 F L 96.6 F L Pulse Rate 69 85 Respiratory Rate 16 18 Blood Pressure 129/72 135/82 Pulse Oximetry 99 99 Oxygen Delivery Method Room Air Room Air BMI result Body Mass Index 25.8 Labs 04/19/23 09:15 05/03/23 08:15 Imaging Radiology Impressions: ITS Impressions Foot X-Ray 04/18/23 10:08 IMPRESSION: Unremarkable right foot. Sacrum and Coccyx X-Ray 04/18/23 10:08 IMPRESSION: 1. Generalized osteopenia. No acute fracture. 2. L5-S1 mild degenerative disc disease. Bilateral hip hardware appears intact. Abdomen Ultrasound 05/04/23 15:08 IMPRESSION: 1. Hepatic steatosis. 2. Cholelithiasis. 3. Bosniak class I renal cysts for which no additional imaging or follow up is necessary. 4. There is an additional Bosniak class II complex cyst at the lower pole of the left kidney with multiple septations. This has waxed and waned in size since 2018. There has never been a precontrast and postcontrast study of this renal lesion and dedicated renal precontrast and postcontrast CT scan is recommended for further evaluation. Medications Medications Current Medications Acetaminophen (Acetaminophen 325 Mg Tablet) 650 mg PO ONCE PRN PRN Reason: Pain, Mild (Pain Scale 1-3) Al Hydroxide/Mg Hydroxide (Magnesium Hydrox/Alum Hydrox 30 Ml Oral.Susp) 30 ml PO Q6H PRN PRN Reason: Heartburn/Nausea Bictegravir/Emtricitabine/Tenofovir (Bictegrav/Emtricit/Tenofov Ala Tablet) 1 tab PO DAILY [facility] Last Admin: 05/10/23 08:17 Dose: 1 tab Buprenorphine/Naloxone (Buprenorphine/Naloxone 2/0.5mg Film) 0.5 film SUBLINGUAL BID [facility] Last Admin: 05/10/23 08:18 Dose: 0.5 film Bupropion HCl (Bupropion Hcl 100 Mg Tablet) 100 mg PO BID@0830,1330 [facility] Last Admin: 05/10/23 08:17 Dose: 100 mg Buspirone HCl (Buspirone Hcl 5 Mg Tablet) 25 mg PO BID@0900,1400 [facility] Last Admin: 05/10/23 08:17 Dose: 25 mg Cyclobenzaprine HCl (Cyclobenzaprine Hcl 10 Mg Tablet) 10 mg PO Q8H PRN PRN Reason: Muscle Spasm Last Admin: 05/08/23 18:25 Dose: 10 mg Docusate Sodium (Docusate Sodium 100 Mg Capsule) 100 mg PO BID [facility] Last Admin: 05/10/23 08:17 Dose: 100 mg Fluticasone/Vilanterol (Fluticasone/Vilanterol 100/25 Blst.W.Dev) 1 puff INHALE RDAILY [facility] Last Admin: 05/09/23 09:07 Dose: Not Given Gabapentin (Gabapentin 300 Mg Capsule) 300 mg PO BID@0830,1630 [facility] Last Admin: 05/10/23 08:17 Dose: 300 mg Hydroxyzine HCl (Hydroxyzine Hcl 25 Mg Tablet) 25 mg PO Q6H PRN PRN Reason: Anxiety Last Admin: 05/02/23 19:46 Dose: 25 mg Ibuprofen (Ibuprofen 600 Mg Tablet) 600 mg PO QID PRN PRN Reason: mild pain Last Admin: 05/09/23 18:38 Dose: 600 mg Magnesium Hydroxide (Milk Of Magnesia 30 Ml Oral.Susp) 30 ml PO DAILY PRN PRN Reason: Constipation Last Admin: 04/30/23 09:07 Dose: 30 ml Melatonin (Melatonin 3 Mg Tablet) 6 mg PO BEDTIME [facility] Last Admin: 05/09/23 20:00 Dose: 6 mg Methadone HCl (Methadone Hcl 20 Mg/2 Ml Oral.Conc) 70 mg PO DAILY [facility] Last Admin: 05/10/23 08:37 Dose: 70 mg Nicotine (Nicotine 21 Mg Patch.Td24) 21 mg TRANSDERMA DAILY [facility] Last Admin: 05/10/23 08:18 Dose: 21 mg Nicotine Polacrilex (Nicotine Polacrilex 2 Mg Gum) 4 mg BUCCAL Q2H PRN PRN Reason: Nicotine Cravings Omeprazole (Omeprazole 40 Mg Capsule.Dr) 40 mg PO DAILY@0630 [facility] Last Admin: 05/10/23 06:26 Dose: 40 mg Ondansetron HCl (Ondansetron Hcl 4 Mg/2 Ml Vial) 4 mg IVPUSH ONCE PRN PRN Reason: Nausea and Vomiting Psyllium Hydrophilic Mucilloid (Psyllium Seed 3.4 Gm Powd.Pack) 3.4 gm PO DAILY PRN PRN Reason: Constipation Last Admin: 04/30/23 18:59 Dose: 3.4 gm Quetiapine Fumarate (Quetiapine Fumarate 300 Mg Tablet) 300 mg PO BEDTIME [facility] Last Admin: 05/09/23 20:01 Dose: 300 mg Sodium Biphosphate/Sodium Phosphate (Sodium Phosphate,[place]-Dibasic 133 Ml Enema) 133 ml DE ONCE PRN PRN Reason: Constipation Last Admin: 04/25/23 09:34 Dose: 133 ml Sodium Biphosphate/Sodium Phosphate (Sodium Phosphate,[place]-Dibasic 133 Ml Enema) 133 ml DE ONCE PRN PRN Reason: Constipation Trazodone HCl (Trazodone Hcl 50 Mg Tablet) 50 mg PO BEDTIME MRX1 PRN PRN Reason: Insomnia Allergies Allergies Allergy/AdvReac Type Severity Reaction Status Date / Time ketorolac [From Toradol] AdvReac Itching Verified 02/28/23 14:51 Assessment & Plan Assessment & Plan (1) MDD (major depressive disorder), recurrent severe, without psychosis: Status: Acute Code(s): F33.2 - Major depressive disorder, recurrent severe without psychotic features (2) Opioid dependence: Status: Acute Code(s): F11.20 - Opioid dependence, uncomplicated (3) PTSD (post-traumatic stress disorder): Status: Acute Code(s): F43.10 - Post-traumatic stress disorder, unspecified Plan Patient is a 58-year-old male with history of depression, PTSD, substance abuse and other medical comorbidities including HIV,? COPD, osteoarthritis, who presents for worsening depression and attempted SI by fentanyl overdose in the face of psychosocial stressors, homelessness and sons terminal cancer diagnosis, relapse with substance abuse. -significant psychosocial stressors resulting had an worsening depression SI.? Patient looking for treatment and help with coping with depression so that he can be present to help his son.? Also looking for help with housing -will continue home medication regimen for now which he has been on for years; has a history of ECT which will consider -bipolar disorder seems less likely; patient could not give a clear example of an actual hypomanic/manic episode for diagnosis, however va underwriter understands history is obscured by substance abuse; he may benefit from mood stabilizer.? That said patient is facing significant psychosocial stressors that may be little effected by additional medication management Plan: CV Q 15 minute checks DC ECT ibuprofen at pt request for muscle soreness post ect Changed to Wellbutrin XL 150 bid. Due to elevated liver enzymes titrate back to Gabapentin 800 mg t.i.d. BuSpar 25 mg b.i.d. Seroquel 300 mg q.h.s.; does not tolerate higher doses Methadone 70 mg daily to Suboxone cross titration: 05/10 Day 3 suboxone 1mg Bid (plus methadone dose) 05/11 Day 4 suboxone 2mg Bid (plus methadone dose) 05/12 Day 5 suboxone 4mg Bid (plus methadone dose) Day 6 suboxone 4mg bid (plus methadone dose) Day 7 suboxone 8mg and 4mg (LAST methadone dose) Day 8 suboxone 8mg Bid (NO METHADONE ) Hospital course: 04/20 patient remains depressed; interested in ECT which he reports has helped him in the past.? Durable Medical Equipment Repairer spoke with Dr. Dill and review chart which indicate patient did have a positive response.? Patient also agrees to lowering gabap entin as needed so that it will not interfere with ECT.? Dr. Dill agrees to ECT consult and will meet with patient tomorrow to further assess.? In the meantime will increase Wellbutrin 04/21/2023 Patient has a history of chronic dysphoria and PTSD worsening over the past 6 months.? Obviously this is contributed to by multiple factors including his son dying of terminal cancer multiple medical issues.? Patient normally stabilized on methadone he did make a suicide attempt and has been increasingly despairing difficulty functioning helpless hopeless despondent.? Frequent flashbacks nightmare patient did have a good response to ECT in 2019 with good benefit that helped both depression and PTSD symptoms patient has had a number of failed medication trials would benefit from ECT for acute depressive symptoms and PTSD acute symptoms and would benefit from more intensive Outpatient step-down as available monitor LFTs and ammonia hospital consult for medical evaluation pre ECT check labs in EKG case reviewed with Dr. Lobo 04/24 tolerated ECT; some increasing hopefulness; tolerating medications well. Continue with treatment plan 04/25 same presentation; wants to continue with ECT 04/26 depressed; continue tx c/o muscle soreness post ECT; will tell Dr. Dill and see if can add/increase muscle relaxant pre or post ect 04/27 stable. continue tx. 04/28/2023 ECT technique changed right temporal left frontal ECT seizure 31 seconds he was changed to etomidate 18 succinylcholine 100 from [facility] 04/29/23: Continue regime and plan of care. 04/30/23: NPO for ECT 05/01/23. 05/01/2023 Completed current ECT without difficulty continue plan of care check liver function tests and ammonia level 05/02/23 Improved mood lft inc no confusion hold wellbutrin ck lft ammonoia inc alk phos 05/03/2023atient tolerated ECT with low-dose haloperidol after. Case reviewed with Dr. Odom gastroenterology noted increased alk-phos question Wellbutrin related question other etiology labs and liver ultrasound ordered GI consult order 05/04/2023Hold tomorrow's ECT secondary to confusion post ECT Wellbutrin lowered alk phosphatase seems to have stabilized GI consult read and appreciated 05/05/23pt depressed anxious ect held x 1 siria lft if stable add mirtazapine 05/06/23cont plan of care follow lft ect 05/07/2023ECT in a.m. mood improved less anxious and irritable on lower dose of Wellbutrin still not clear why alk-phos increased may benefit from read consult with Dr. Odom 05/08 mood improved; will discuss with Dr. Dill whether not to continue for more ECT trials. Switching from methadone to Suboxone; setting up aftercare 05/09 dc ect; pt doing well; continue w/ transfer to suboxone and aftercare set up reached out to ID for Hep C tx 05/10 continue current treatment; will titrate gabapentin back to home dose Patient educated on: diagnosis and medication risk/benefits Informed Consent: understands Reason for continued inpatient stay Substantial Risk for: stable for discharge Time Spent With Patient Time: Total time managing care of this patient today ____ minutes.
[2023-05-10] MEDS: Fluticasone/Vilanterol 100/25 BLST.W.DEV 1 PUFF INHALE (10:17)
[2023-05-10 18:52] VITALS: BP 146/76; PULSE 72; TEMP 36.3
[2023-05-10] MEDS: Melatonin 3 MG TABLET 6 MG PO (19:36)
[2023-05-10] MEDS: QUEtiapine Fumarate 300 MG TABLET PO (19:36)
[2023-05-11] MEDS: Omeprazole 40 MG CAPSULE.DR PO (06:02)
[2023-05-11 08:30] VITALS: BP 123/77; PULSE 87; RESP 18; TEMP 35.8; O2SAT 96
[2023-05-11] MEDS: busPIRone HCl 5 MG TABLET 25 MG PO ×2 (08:32→13:27)
[2023-05-11] MEDS: Docusate Sodium 100 MG CAPSULE PO ×2 (08:32→19:18)
[2023-05-11] MEDS: Bictegrav/Emtricit/Tenofov Ala TABLET 1 TAB PO (08:32)
[2023-05-11] MEDS: buPROPion HCL 100 MG TABLET PO (08:32)
[2023-05-11] MEDS: Gabapentin 300 MG CAPSULE 600 MG PO ×3 (08:33→19:18)
[2023-05-11] MEDS: Nicotine 21 MG PATCH.TD24 TRANSDERMA (08:33)
[2023-05-11] MEDS: Buprenorphine/Naloxone 2/0.5mg FILM 1 FILM SUBLINGUAL ×2 (08:33→19:17)
[2023-05-11] MEDS: Fluticasone/Vilanterol 100/25 BLST.W.DEV 1 PUFF INHALE (08:58)
[2023-05-11] MEDS: methADONE HCl 20 MG/2 ML ORAL.CONC 70 MG PO (08:58)
[2023-05-11] MEDS: buPROPion HCl XL 150 MG TAB.ER.24H PO (14:06)
[2023-05-11 14:39] VITALS: BMI 26.3
--- NOTE | 2023-05-11 18:32 | P.PNPSI_ITS ---
Subjective Subjective Date of Service: 05/11/23 Reason For Visit: SI Interim History: Met with patient; discussed with team; met out reach worker from [facility] Patient grateful, hopeful, feeling better. Feels ready for discharge tomorrow Mental Status Exam Mental Status Exam Narrative: Pt is alert and oriented; behavior is cooperative, friendly, calm; patient is not in distress; dressed in casual attire, a bit unkempt but with adequate hygiene; mood is described as good and affect congruent; eye contact appropriate; Speech is normal rate, volume and prosody and not pressured; no psychomotor retardation present; thought process is organized and goal directed; Thought content is on treatment; otherwise pertinent to relevant topics and without any delusional content, paranoid ideations or grandiosity; no SI; no HI. There is no evidence of perceptual disturbance. Patients insight and judgment fair Diagnostics Vital Signs (24Hr): Vital Signs - 24 hr 05/10/23 18:52 05/11/23 08:30 Temperature 97.4 F 96.5 F L Pulse Rate 72 87 Respiratory Rate 18 Blood Pressure 146/76 H 123/77 Pulse Oximetry 96 Oxygen Delivery Method Room Air BMI result Body Mass Index 26.3 Labs 04/19/23 09:15 05/03/23 08:15 Imaging Radiology Impressions: ITS Impressions Foot X-Ray 04/18/23 10:08 IMPRESSION: Unremarkable right foot. Sacrum and Coccyx X-Ray 04/18/23 10:08 IMPRESSION: 1. Generalized osteopenia. No acute fracture. 2. L5-S1 mild degenerative disc disease. Bilateral hip hardware appears intact. Abdomen Ultrasound 05/04/23 15:08 IMPRESSION: 1. Hepatic steatosis. 2. Cholelithiasis. 3. Bosniak class I renal cysts for which no additional imaging or follow up is necessary. 4. There is an additional Bosniak class II complex cyst at the lower pole of the left kidney with multiple septations. This has waxed and waned in size since 2018. There has never been a precontrast and postcontrast study of this renal lesion and dedicated renal precontrast and postcontrast CT scan is recommended for further evaluation. Medications Medications Current Medications Acetaminophen (Acetaminophen 325 Mg Tablet) 650 mg PO ONCE PRN PRN Reason: Pain, Mild (Pain Scale 1-3) Al Hydroxide/Mg Hydroxide (Magnesium Hydrox/Alum Hydrox 30 Ml Oral.Susp) 30 ml PO Q6H PRN PRN Reason: Heartburn/Nausea Bictegravir/Emtricitabine/Tenofovir (Bictegrav/Emtricit/Tenofov Ala Tablet) 1 tab PO DAILY [facility] Last Admin: 05/11/23 08:32 Dose: 1 tab Buprenorphine/Naloxone (Buprenorphine/Naloxone 2/0.5mg Film) 1 film SUBLINGUAL BID [facility] Last Admin: 05/11/23 08:33 Dose: 1 film Bupropion HCl (Bupropion Hcl Xl 150 Mg Tab.Er.24h) 150 mg PO BID@0900,1500 [facility] Last Admin: 05/11/23 14:06 Dose: 150 mg Buspirone HCl (Buspirone Hcl 5 Mg Tablet) 25 mg PO BID@0900,1400 [facility] Last Admin: 05/11/23 13:27 Dose: 25 mg Docusate Sodium (Docusate Sodium 100 Mg Capsule) 100 mg PO BID [facility] Last Admin: 05/11/23 08:32 Dose: 100 mg Fluticasone/Vilanterol (Fluticasone/Vilanterol 100/25 Blst.W.Dev) 1 puff INHALE RDAILY [facility] Last Admin: 05/11/23 08:58 Dose: 1 puff Gabapentin (Gabapentin 300 Mg Capsule) 600 mg PO TID [facility] Last Admin: 05/11/23 14:06 Dose: 600 mg Hydroxyzine HCl (Hydroxyzine Hcl 25 Mg Tablet) 25 mg PO Q6H PRN PRN Reason: Anxiety Last Admin: 05/02/23 19:46 Dose: 25 mg Ibuprofen (Ibuprofen 600 Mg Tablet) 600 mg PO QID PRN PRN Reason: mild pain Last Admin: 05/09/23 18:38 Dose: 600 mg Magnesium Hydroxide (Milk Of Magnesia 30 Ml Oral.Susp) 30 ml PO DAILY PRN PRN Reason: Constipation Last Admin: 04/30/23 09:07 Dose: 30 ml Melatonin (Melatonin 3 Mg Tablet) 6 mg PO BEDTIME [facility] Last Admin: 05/10/23 19:36 Dose: 6 mg Methadone HCl (Methadone Hcl 20 Mg/2 Ml Oral.Conc) 70 mg PO DAILY [facility] Last Admin: 05/11/23 08:58 Dose: 70 mg Nicotine (Nicotine 21 Mg Patch.Td24) 21 mg TRANSDERMA DAILY [facility] Last Admin: 05/11/23 08:33 Dose: 21 mg Nicotine Polacrilex (Nicotine Polacrilex 2 Mg Gum) 4 mg BUCCAL Q2H PRN PRN Reason: Nicotine Cravings Omeprazole (Omeprazole 40 Mg Capsule.Dr) 40 mg PO DAILY@0630 [facility] Last Admin: 05/11/23 06:02 Dose: 40 mg Psyllium Hydrophilic Mucilloid (Psyllium Seed 3.4 Gm Powd.Pack) 3.4 gm PO DAILY PRN PRN Reason: Constipation Last Admin: 04/30/23 18:59 Dose: 3.4 gm Quetiapine Fumarate (Quetiapine Fumarate 300 Mg Tablet) 300 mg PO BEDTIME [facility] Last Admin: 05/10/23 19:36 Dose: 300 mg Sodium Biphosphate/Sodium Phosphate (Sodium Phosphate,[place]-Dibasic 133 Ml Enema) 133 ml [place] ONCE PRN PRN Reason: Constipation Last Admin: 04/25/23 09:34 Dose: 133 ml Sodium Biphosphate/Sodium Phosphate (Sodium Phosphate,[place]-Dibasic 133 Ml Enema) 133 ml VT ONCE PRN PRN Reason: Constipation Allergies Allergies Allergy/AdvReac Type Severity Reaction Status Date / Time ketorolac [From Toradol] AdvReac Itching Verified 02/28/23 14:51 Assessment & Plan Assessment & Plan (1) MDD (major depressive disorder), recurrent severe, without psychosis: Status: Acute Code(s): F33.2 - Major depressive disorder, recurrent severe without psychotic features (2) Opioid dependence: Status: Acute Code(s): F11.20 - Opioid dependence, uncomplicated (3) PTSD (post-traumatic stress disorder): Status: Acute Code(s): F43.10 - Post-traumatic stress disorder, unspecified Plan Patient is a 58-year-old male with history of depression, PTSD, substance abuse and other medical comorbidities including HIV,? COPD, osteoarthritis, who presents for worsening depression and attempted SI by fentanyl overdose in the face of psychosocial stressors, homelessness and sons terminal cancer diagnosis, relapse with substance abuse. -significant psychosocial stressors resulting had an worsening depression SI.? Patient looking for treatment and help with coping with depression so that he can be present to help his son.? Also looking for help with housing -will continue home medication regimen for now which he has been on for years; has a history of ECT which will consider -bipolar disorder seems less likely; patient could not give a clear example of an actual hypomanic/manic episode for diagnosis, however brief writer understands history is obscured by substance abuse; he may benefit from mood stabilizer.? That said patient is facing significant psychosocial stressors that may be little effected by additional medication management Plan: CV Q 15 minute checks DC ECT ibuprofen at pt request for muscle soreness post ect Changed to Wellbutrin XL 150 bid. Due to elevated liver enzymes titrate back to Gabapentin 800 mg t.i.d. BuSpar 25 mg b.i.d. Seroquel 300 mg q.h.s.; does not tolerate higher doses Methadone 70 mg daily to Suboxone cross titration: 05/10 Day 3 suboxone 1mg Bid (plus methadone dose) 05/11 Day 4 suboxone 2mg Bid (plus methadone dose) 05/12 Day 5 suboxone 4mg Bid (plus methadone dose) Day 6 suboxone 4mg bid (plus methadone dose) Day 7 suboxone 8mg and 4mg (LAST methadone dose) Day 8 suboxone 8mg Bid (NO METHADONE ) Hospital course: 04/20 patient remains depressed; interested in ECT which he reports has helped him in the past.? Wood Carving Lathe Operator spoke with Dr. Dill and review chart which indicate patient did have a positive response.? Patient also agrees to lowering gabapentin as needed so that it will not interfere with ECT.? Dr. Dill agrees to ECT consult and will meet with patient tomorrow to further assess.? In the meantime will increase Wellbutrin 04/21/2023 Patient has a history of chronic dysphoria and PTSD worsening over the past 6 months.? Obviously this is contributed to by multiple factors including his son dying of terminal cancer multiple medical issues.? Patient normally stabilized on methadone he did make a suicide attempt and has been increasingly despairing difficulty functioning helpless hopeless despondent.? Frequent flashbacks nightmare patient did have a good response to ECT in 2019 with good benefit that helped both depression and PTSD symptoms patient has had a number of failed medication trials would benefit from ECT for acute depressive symptoms and PTSD acute symptoms and would benefit from more intensive Outpatient step-down as a vailable monitor LFTs and ammonia hospital consult for medical evaluation pre ECT check labs in EKG case reviewed with Dr. Lobo 04/24 tolerated ECT; some increasing hopefulness; tolerating medications well. Continue with treatment plan 04/25 same presentation; wants to continue with ECT 04/26 depressed; continue tx c/o muscle soreness post ECT; will tell Dr. Dill and see if can add/increase muscle relaxant pre or post ect 04/27 stable. continue tx. 04/28/2023 ECT technique changed right temporal left frontal ECT seizure 31 seconds he was changed to etomidate 18 succinylcholine 100 from [facility] 04/29/23: Continue regime and plan of care. 04/30/23: NPO for ECT 05/01/23. 05/01/2023 Completed current ECT without difficulty continue plan of care check liver function tests and ammonia level 05/02/23 Improved mood lft inc no confusion hold wellbutrin ck lft ammonoia inc alk phos 05/03/2023atient tolerated ECT with low-dose haloperidol after. Case reviewed with Dr. Odom gastroenterology noted increased alk-phos question Wellbutrin related question other etiology labs and liver ultrasound ordered GI consult order 05/04/2023Hold tomorrow's ECT secondary to confusion post ECT Wellbutrin lowered alk phosphatase seems to have stabilized GI consult read and appreciated 05/05/23pt depressed anxious ect held x 1 siria lft if stable add mirtazapine 05/06/23cont plan of care follow lft ect 05/07/2023ECT in a.m. mood improved less anxious and irritable on lower dose of Wellbutrin still not clear why alk-phos increased may benefit from read consult with Dr. Odom 05/08 mood improved; will discuss with Dr. Dill whether not to continue for more ECT trials. Switching from methadone to Suboxone; setting up aftercare 05/09 dc ect; pt doing well; continue w/ transfer to suboxone and aftercare set up reached out to ID for Hep C tx 05/10 continue current treatment; will titrate gabapentin back to home dose -discussed treatment with [facility] and they will continue patient on Suboxone; also will treat for hep C since they have id physician available Patient educated on: diagnosis, medication risk/benefits, substance abuse and medical condition Informed Consent: understands Reason for continued inpatient stay Substantial Risk for: stable for discharge Time Spent With Patient Time: Total time managing care of this patient today ____ minutes.
[2023-05-11] MEDS: QUEtiapine Fumarate 300 MG TABLET PO (19:17)
[2023-05-11] MEDS: Melatonin 3 MG TABLET 6 MG PO (19:17)
[2023-05-11 19:24] VITALS: BP 138/74; PULSE 81; RESP 18; TEMP 36.1; O2SAT 95
[2023-05-12] MEDS: Omeprazole 40 MG CAPSULE.DR PO (06:16)
[2023-05-12] MEDS: Fluticasone/Vilanterol 100/25 BLST.W.DEV 1 PUFF INHALE (07:49)
[2023-05-12] MEDS: busPIRone HCl 5 MG TABLET 25 MG PO ×2 (07:49→14:16)
[2023-05-12 07:50] VITALS: BP 138/77; PULSE 78; RESP 16; TEMP 36.5; O2SAT 98
[2023-05-12] MEDS: Gabapentin 300 MG CAPSULE 600 MG PO ×2 (07:50→14:17)
[2023-05-12] MEDS: Docusate Sodium 100 MG CAPSULE PO (07:50)
[2023-05-12] MEDS: Bictegrav/Emtricit/Tenofov Ala TABLET 1 TAB PO (07:50)
[2023-05-12] MEDS: Nicotine 21 MG PATCH.TD24 TRANSDERMA (07:51)
[2023-05-12] MEDS: buPROPion HCl XL 150 MG TAB.ER.24H PO ×2 (07:51→14:16)
[2023-05-12] MEDS: Buprenorphine/Naloxone 2/0.5mg FILM 1 FILM SUBLINGUAL ×2 (07:51→09:32)
[2023-05-12] MEDS: methADONE HCl 20 MG/2 ML ORAL.CONC 70 MG PO (08:38)
--- NOTE | 2023-05-12 09:10 | PM.PSYDC ---
DS: Providers Provider Date of Service: 05/12/23 Date of admission: 04/18/23 22:15 Date of discharge: 05/12/23 Primary care physician: Shayy Nielson NP Attending physician on admission: Omari Lobo Consults: 04/20/23 15:35 Consult to Hospitalist Routine Comment: Consulting Provider: Hospitalist Reason For Exam: assess for ECT 05/04/23 10:08 Consult to Gastroenterology Stat Consulting Provider: Lalit Odom Reason for consultation: inc alk phos rising hep c Has provider been notified: Yes Attending physician on discharge: Omari Lobo DS: Diagnosis Discharge Diagnosis (1) MDD (major depressive disorder), recurrent severe, without psychosis: Status: Acute (2) Opioid dependence: Status: Acute (3) PTSD (post-traumatic stress disorder): Status: Acute DS: Medications Discharge Medications Home Medications: Home Medications Medication Instructions Recorded Confirmed bictegravir 50 mg-emtricitabine 1 tab PO DAILY 09/04/20 04/18/23 200 mg-tenofovir alafenam 25 mg tablet (Biktarvy) gabapentin 800 mg tablet 800 mg PO TID 09/04/20 04/18/23 quetiapine 300 mg tablet 300 mg PO BEDTIME 09/04/20 04/18/23 buspirone 15 mg tablet 15 mg PO BID 09/07/22 04/18/23 omeprazole 40 mg capsule,delayed 1 cap PO DAILY@0630 09/07/22 04/18/23 release buspirone 10 mg tablet 10 mg PO BID 12/08/22 04/18/23 fluticasone furoate 100 1 puff inhalation DAILY 12/08/22 04/18/23 mcg-vilanterol 25 mcg/dose inhalation powder (Breo Ellipta) bupropion HCl 150 mg tablet,12 hr 150 mg PO BID 04/18/23 04/18/23 sustained-release cyclobenzaprine 10 mg tablet 10 mg PO Q8H PRN Muscle Spasm 04/18/23 04/18/23 Previous Rx's Medication Instructions Recorded tramadol 50 mg tablet 50 mg PO Q6H PRN pain #20 tabs 04/16/23 Mental Status Exam Mental Status Exam Narrative: Pt is alert and oriented; behavior is cooperative, friendly, calm; patient is not in distress; dressed in casual attire, long hair, adequate hygiene; mood is described as good and affect congruent; eye contact appropriate; Speech is normal rate, volume and prosody and not pressured; no psychomotor retardation present; thought process is organized and goal directed; Thought content is on treatment and aftercare; otherwise pertinent to relevant topics and without any delusional content, paranoid ideations or grandiosity; no SI; no HI. There is no evidence of perceptual disturbance. Patients insight and judgment fair Data Data Completed and Pending Completed studies during hospitalization [Text1]: 05/03/23 05/05/23 05/06/23 08:15 08:14 15:51 Total Bilirubin 0.5 0.5 Direct Bilirubin 0.2 0.3 AST 86 H 86 H ALT 52 H 58 H Alkaline Phosphatase 358 H 367 H Total Protein 7.7 8.1 H Albumin 3.1 L 3.4 L Hep C Viral Load 1920481 H Hep C Viral Load Log 6.01 H 05/10/23 07:50 Total Bilirubin Direct Bilirubin AST ALT Alkaline Phosphatase Total Protein Albumin Hep C Viral Load Pending Hep C Viral Load Log Pending Imaging Diagnostic Imaging Impressions Foot X-Ray 04/18/23 10:08 IMPRESSION: Unremarkable right foot. Sacrum and Coccyx X-Ray 04/18/23 10:08 IMPRESSION: 1. Generalized osteopenia. No acute fracture. 2. L5-S1 mild degenerative disc disease. Bilateral hip hardware appears intact. Abdomen Ultrasound 05/04/23 15:08 IMPRESSION: 1. Hepatic steatosis. 2. Cholelithiasis. 3. Bosniak class I renal cysts for which no additional imaging or follow up is necessary. 4. There is an additional Bosniak class II complex cyst at the lower pole of the left kidney with multiple septations. This has waxed and waned in size since 2018. There has never been a precontrast and postcontrast study of this renal lesion and dedicated renal precontrast and postcontrast CT scan is recommended for further evaluation. DS: Summary Hospital Course Hospital Course: HPI: Patient is a 58-year-old male with history of depression with history of ECT, PTSD, substance abuse and other medical comorbidities including HIV,? COPD, osteoarthritis, who presents for worsening depression and attempted SI by fentanyl overdose in the face of psychosocial stressors, homelessness and sons terminal cancer diagnosis, relapse with substance abuse. -significant psychosocial stressors resulting had an worsening depression SI.? Patient looking for treatment and help with coping with depression so that he can be present to help his son.? Also looking for help with housing -will continue home medication regimen for now which he has been on for years; has a history of ECT which will consider -bipolar disorder seems less likely; patient could not give a clear example of an actual hypomanic/manic episode for diagnosis, however press writer understands history is obscured by substance abuse; he may benefit from mood stabilizer.? That said patient is facing significant psychosocial stressors that may be little effected by additional medication management Hospital course Patient was pleasant and cooperative on admission but depressed. SI fully resolved. Wellbutrin changed to extended release and increased which help some but depression remained. Patient had ECT in the past and team agreed that patient would benefit from another ECT trial which was initiated to good effect, with mild, self-resolving side effects. Patient remained engaged in treatment, attending groups and forthcoming in 1 on 1 sessions. He was appropriate with peers and staff; he demonstrated good behavioral and impulse control throughout his stay on the unit. With 6 ECT sessions and milieu therapy, patient's depression abated, his affect became noticeably brighter and developed good mood. SI remained fully resolved. Patient was future oriented, hopeful. Patient was also transitioned from methadone to Suboxone. Patient involved in aftercare planning and will have wraparound services from [facility] including treatment for HIV, hep C, substance abuse treatment, psychiatry and therapy. Patient felt ready for discharge. While he remains vulnerable to relapse, he was not in imminent risk for harm to self or others and appropriate to return to the community for continued treatment. Time spent discussing smoking cessation with patient: 3 to 10 minutes Status at Discharge Functional status at discharge: independent ambulation Overall status at discharge: patient is back to baseline Time Spent with Patient Time attestation: Total time managing care of this patient today ____ minutes. Time spent: Greater than 30 minutes Discharge Plan Discharge Anticipated Discharge Date/Time: 05/12/23 11:30 Patient Disposition: Assisted Discharge Diagnosis: MDD, recurrent, severe w/out psychosis in full remission Referrals: [facility] Infect. Disease Specialist Dr. Quinonez [Other] - 05/19/23 11:00 am Nayana Soler [facility] [Other] - 1 Week [facility] Suboxone Appt [Other] - 05/17/23 9:00 am Medical Case Management Odette VILLA [Other] - 05/17/23 10:30 am Community Health Worker Shira [Other] - 1 Week Shayy Nielson NP [Primary Care Provider] - 05/25/23 11:15 am Discharge Medications: New buprenorphine-naloxone 8-2 mg film See Rx Instructions .ROUTE .COMPLEX Qty: 10 0RF Rx Instructions: 05/12: suboxone 1/2 film at Bedtime (plus methadone dose) 05/13: suboxone 1/2 film morning and 1/2 film at bedtime (plus methadone dose) 05/14: suboxone 1 film in morning and 1/2 film at bedtime (LAST methadone dose) 05/15 suboxone 1 film in morning and 1 film bedtime (NO METHADONE ) 05/16 and on 2mg BID nicotine 21 mg/24 hr Patch 24 Hour 21 mg transdermal DAILY PRN (Reason: nicotine cravings) 28 Days Qty: 28 0RF buspirone 30 mg tablet 30 mg PO BID 30 Days Qty: 60 0RF bupropion HCl 150 mg Tablet Extended Release 24 Hr 150 mg PO BID@0900,1500 30 Days Qty: 60 0RF hydroxyzine HCl 25 mg Tablet 25 mg PO Q6H PRN (Reason: Anxiety) 30 Days Qty: 90 0RF methadone [Methadose] 10 mg/mL Concentrate 70 mg PO DAILY Qty: 0 0RF Rx Instructions: Partial Fill upon patient request. docusate sodium 100 mg Capsule 100 mg PO BID PRN (Reason: constipation) 30 Days Qty: 60 0RF melatonin 5 mg tablet 5 mg PO BEDTIME PRN (Reason: sleep) 30 Days Qty: 30 0RF Continued gabapentin 800 mg tablet 800 mg PO TID 30 Days Qty: 90 0RF Biktarvy 50-200-25 mg tablet 1 tab PO DAILY 30 Days Qty: 30 0RF quetiapine 300 mg tablet 300 mg PO BEDTIME 30 Days Qty: 30 0RF Changed cyclobenzaprine 10 mg tablet 10 mg PO Q8H PRN (Reason: Muscle Spasm) 30 Days Qty: 60 0RF omeprazole 40 mg capsule,delayed release(DR/EC) 40 mg PO DAILY@0630 30 Days Qty: 30 0RF fluticasone furoate-vilanterol [Breo Ellipta] 100-25 mcg/dose blister with device 1 ea inhalation DAILY 30 Days Qty: 60 0RF Discontinued buspirone 10 mg Tablet 10 mg PO BID buspirone 15 mg tablet 15 mg PO BID tramadol 50 mg tablet 50 mg PO Q6H PRN (Reason: pain) Qty: 20 0RF bupropion HCl 150 mg tablet sustained-release 12 hr 150 mg PO BID Discharge Orders: Discharge Order (Routine); Ordered 05/12/23 Ordered By: Omari Lobo Diet: Regular diet Activity on Discharge: As tolerated Stand Alone Forms: Patient Portal Discharge page Care Plan Goals: Maintain mood and safe behaviors Take medications as prescribed Continue to pursue sobriety Practice coping skills Continue with outpatient providers and reach out to them as needed Health Concerns: Mood stability and behaviors Sobriety Retrovirus Hep C Plan of Treatment: Follow up with your PCP, psychiatric provider and other outpatient providers regarding above concerns Take medications as prescribed Methadone to Suboxone cross titration: 05/12: ?suboxone 1/2 film at Bedtime? (plus ?methadone dose) 05/13: suboxone 1/2 film morning and 1/2 film at bedtime? (plus ?methadone dose) 05/14: suboxone ?1 film in morning and ?1/2 film at bedtime (LAST methadone dose) 05/15 suboxone 1 film in morning and 1 film bedtime (NO METHADONE ) 05/16 and 8/2mg Film BID Assessment: Risk assessment at time of discharge:? Patient was interviewed prior to discharge and found to be fully oriented and without any SI or HI. Patient has insight and demonstrates good judgment in terms of wanting to pursue treatment. Patient is not in imminent risk of harm to self or others and has a safety plan that includes presenting to the closest ER or calling 911 if feeling unsafe.? Patient has been observed closely by nursing and unit staff throughout admission; patient has not engaged in any behaviors that suggest dangerousness to self or others and has demonstrated appropriate behaviors and impulse control
[2023-05-12] MEDS: Naloxone HCl Nasal TAKE HOME 4 MG SPRAY 8 MG NOSTRILALT (09:32)
[2023-05-12] MEDS: hydrOXYzine HCL 25 MG TABLET PO (11:21)
[2023-05-12 19:04] LABS: HCV Log PCR 5.85 Log IU/mL (NOT DETECTED); HepC Viral Load 714000 IU/mL (NOT DETECTED)
[2023-05-14 05:53] LABS: Alk.Phos Iso. Macrohepatic 0 % (<=0); Alk.Phos Isoenzymes Bone 75 % (28-66); Alk.Phos Isoenzymes Intest 0 % (1-24); Alk.Phos Isoenzymes Liver 25 % (25-69); Alk.Phos Isoenzymes Placental 0 % (<=0); Alk.Phos Isoenzymes Total 328 U/L (35-144)
== END 2023-05-12 15:21 | disposition home or self-care (01) | DRG 885 ==
LOC: HO.ED 15:47 → HO.PM5 22:29
PROVIDERS: Internal Medicine; Psychiatry & Neurology Psychiatry; Admitting Provider Psychiatry & Neurology Psychiatry; Emergency Provider Emergency Medicine; PCP Nurse Practitioner Primary Care; Visit Provider Psychiatry & Neurology Psychiatry
PROC: (CPT 90870; principal; 2023-04-24 08:00)
PROC: GZB4ZZZ Other Electroconvulsive Therapy (ICD-10-PCS; CPT 90870; principal; 2023-04-26 08:00)
DX: F33.2 Major depressive disorder, recurrent severe without psychotic features (principal); R45.851 Suicidal ideations; F11.20 Opioid dependence, uncomplicated; F10.10 Alcohol abuse, uncomplicated; F43.10 Post-traumatic stress disorder, unspecified; Z21 Asymptomatic human immunodeficiency virus [HIV] infection status; Z59.02 Unsheltered homelessness; Z79.51 Long term (current) use of inhaled steroids; Z79.899 Other long term (current) drug therapy
CPT/HCPCS: 36415; 72220; 73630; 76700; 80053; 80061; 80076; 80307; 81003; 82140; 82977; 83036; 84080; 85025; 85610; 87522; 87635; 90870; 93005; 99285; J0330; J2060; J2405; S9485

== ENCOUNTER → 2023-04-18 14:17 | Outpatient (BNV) | payer OTHER, SELFPAY | PROVIDERS: Emergency Provider Emergency Medicine; PCP Nurse Practitioner Primary Care; Visit Provider Internal Medicine Cardiovascular Disease | DX: M54.50 Low back pain, unspecified (principal) | CPT/HCPCS: 93010 ==

== ENCOUNTER 2023-04-18 22:15 | Outpatient (BNV) | payer OTHER, SELFPAY | END 2023-04-20 15:44 | PROVIDERS: Admitting Provider Psychiatry & Neurology Psychiatry; Emergency Provider Emergency Medicine; PCP Nurse Practitioner Primary Care; Visit Provider Internal Medicine Cardiovascular Disease | DX: R94.31 Abnormal electrocardiogram [ECG] [EKG] (principal) | CPT/HCPCS: 93010 ==

== ENCOUNTER → 2023-04-18 22:15 | Outpatient (BNV) | payer OTHER, SELFPAY | PROVIDERS: Admitting Provider Psychiatry & Neurology Psychiatry; Emergency Provider Emergency Medicine; PCP Nurse Practitioner Primary Care; Visit Provider Psychiatry & Neurology Psychiatry | DX: F33.2 Major depressive disorder, recurrent severe without psychotic features (principal); F11.20 Opioid dependence, uncomplicated; F43.10 Post-traumatic stress disorder, unspecified | CPT/HCPCS: 90870; 99231; 99232; 99233 ==

== ENCOUNTER → 2023-04-18 22:15 | Outpatient (BNV) | payer OTHER, SELFPAY | PROVIDERS: Admitting Provider Psychiatry & Neurology Psychiatry; Emergency Provider Emergency Medicine; PCP Nurse Practitioner Primary Care; Visit Provider Student in an Organized Health Care Education/Training Program | DX: Z01.818 Encounter for other preprocedural examination (principal) | CPT/HCPCS: 99221 ==

== ENCOUNTER → 2023-04-18 22:15 | Outpatient (BNV) | payer OTHER, SELFPAY | PROVIDERS: Admitting Provider Psychiatry & Neurology Psychiatry; Emergency Provider Emergency Medicine; PCP Nurse Practitioner Primary Care; Visit Provider Psychiatry & Neurology Psychiatry | DX: F33.2 Major depressive disorder, recurrent severe without psychotic features (principal); F11.20 Opioid dependence, uncomplicated; F43.11 Post-traumatic stress disorder, acute | CPT/HCPCS: 90792; 90870; 99231; 99232; 99239 ==

== ENCOUNTER 2023-05-25 18:11 | Emergency (ER) | payer OTHER, SELFPAY ==
--- NOTE | 2023-05-25 | ECG_ITS ---
Test Reason : CP Blood Pressure : / mmHG Vent. Rate : 076 BPM Atrial Rate : 076 BPM P-R Int : 136 ms QRS Dur : 080 ms QT Int : 416 ms P-R-T Axes : 036 059 056 degrees QTc Int : 468 ms Normal sinus rhythm Nonspecific ST and T wave abnormality Prolonged QT Abnormal ECG When compared with ECG of 20-APR-2023 15:44, QT has lengthened ST more depressed Anterior leads Referred By: Kirstie Waggoner Electronically Signed By:KAELA ROLNAD
--- NOTE | ~2023-05-25 | CT_ITS ---
EXAMINATION: CT HEAD WITHOUT CONTRAST CLINICAL INFORMATION: Head injury, frontal headache COMPARISON: 09/06/2022 TECHNIQUE: Contiguous axial imaging was performed from the skull base to vertex without intravenous administration of contrast. This CT examination was performed using dose optimization techniques as appropriate, variously including the following: *Automated exposure control *Adjustment of mA and/or kV according to patient size (this includes techniques or standardized protocols for targeted exams where dose is matched to indication/reason for exam; i.e. extremities or head) *Use of iterative reconstruction technique DLP: 958 mGy-cm FINDINGS: There is no evidence of acute intracranial hemorrhage or territorial infarction. No abnormal mass effect or midline shift is seen. Johansen to white matter differentiation is well preserved. No extra-axial fluid collections are identified. No hydrocephalus. No significant volume loss. Patchy periventricular and deep white matter hypoattenuation is consistent with mild small vessel ischemic changes. No acute osseous or soft tissue abnormality. There is mucosal thickening in the right maxillary sinus. CT/CT head/brain wo IV con IMPRESSION: No acute intracranial pathology.
--- NOTE | ~2023-05-25 | XR_ITS ---
EXAMINATION: XR CHEST CLINICAL INFORMATION: Chest pain COMPARISON: 09/06/2022 TECHNIQUE: 2 views of the chest were obtained. FINDINGS: Cardiomediastinal silhouette is stable. No consolidation, pleural effusion or pneumothorax. No acute osseous abnormalities. XR/XR chest 2V IMPRESSION: No acute abnormality in the chest.
[2023-05-25 18:22] VITALS: BP 145/80; BP 150/94; PULSE 78; PULSE 84; RESP 20; TEMP 37; O2SAT 96; O2SAT 99; BMI 23.7
[2023-05-25 18:25] VITALS: BP 145/80; PULSE 73; PULSE 74; RESP 15; TEMP 37.1; O2SAT 95
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
--- NOTE | 2023-05-25 18:36 | MHC.EDTECH ---
CHANGED OVER W/ SECURITY. BELONGINGS STORED POD LOCKER 10
[2023-05-25 18:57] LABS: MANUAL DIFF FLAG NO
[2023-05-25 19:05] LABS: Prothrombin Time 12.5 SEC (11.1-13.3)
[2023-05-25 19:11] LABS: Basophils Absolute Auto 0.2 X10*3/uL (0.0-0.2); Basophils Percent Auto 1.3 % (0-2); Eosinophils Absolute Auto 0.3 X10*3/uL (0.0-0.4); Eosinophils Percent Auto 2.4 % (0-4); Hematocrit 39.6 % (42.0-52.0); Hemoglobin 14.1 g/dl (14.0-18.0); Imm Gran Abs Auto 0.04 X10*3/uL (0.00-0.03); Imm Gran Pct Auto 0.3 % (0.0-0.4); Lymphocytes Absolute Auto 3.4 X10*3/uL (1.2-4.9); Lymphocytes Percent Auto 25.2 % (20-40); Mean Corpuscular HGB Conc 35.6 g/dl (31.0-36.0); Mean Corpuscular Hemoglobin 32.3 pg (27.0-33.0); Mean Corpuscular Volume 90.8 fL (80.0-98.0); Mean Platelet Volume 11.7 fL (9.4-12.4); Monocytes Absolute Auto 1.1 X10*3/uL (0.1-1.2); Monocytes Percent Auto 8.5 % (2-11); Neutrophils Absolute Auto 8.3 x10*3/uL (2.0-8.3); Neutrophils Percent Auto 62.3 % (45-73); Platelet Count 172 X10*3/uL (160-400); Red Blood Count 4.36 X10*6/uL (4.60-5.80); Red Cell Distribution Width 12.9 % (11.0-16.0); White Blood Count 13.4 X10*3/uL (4.8-10.8)
[2023-05-25 19:23] LABS: COVID-19 Test Negative (Negative); IDNOW Serial# BCCEAD1C
[2023-05-25 19:29] LABS: Alanine Aminotransferase 90 U/L (0-40); Albumin Level 3.7 g/dL (3.5-5.0); Alkaline Phosphatase 293 U/L (39-117); Anion Gap 22 (12-20); Aspartate Amino Transferase 189 U/L (5-37); Bilirubin Total 1.2 mg/dL (0.0-1.0); Blood Urea Nitrogen 7 mg/dL (9-16); Calcium 8.7 mg/dL (8.4-10.2); Carbon Dioxide 17 mmol/L (22-29); Chloride 97 mmol/L (96-108); Creatinine Clr Calc Pharmacy 131.5; Estimated Glomerular Filt Rate > 60; Ethanol 245 mg/dL; Glucose Random 90 mg/dL (60-115); Lipase 41 U/L (8-78); Sodium 132 mmol/L (135-145); Total Protein 8.6 g/dL (6.5-8.0)
[2023-05-25 19:35] LABS: Troponin-I High Sensitivity 6.7 ng/L (<3.5-35.0)
[2023-05-25 19:42] VITALS: BP 136/89; PULSE 85; RESP 19; O2SAT 96
[2023-05-25] MEDS: 0.9 % Sodium Chloride 1,000 ML 999 ML IV (20:08)
[2023-05-25 20:24] LABS: Appearance Urine Cloudy; Color Urine Yellow; Glucose Urine UA Negative (Negative); Leukocyte Esterase Urine Negative (Negative); Nitrite Urine Negative (Negative); Specific Gravity - Urine <= 1.005 (1.005-1.025); Urine Blood Negative (Negative); Urine Ketones Negative (Negative); Urine Protein Negative (Neg-Trace)
[2023-05-25 20:35] LABS: Amphetamine Screen Urine Not Detected (Not Detect); Barbiturates, Urine Not Detected (Not Detect); Benzodiazepines Screen Urine Not Detected (Not Detect); Cannabinoid Screen Urine Not Detected (Not Detect); Cocaine Screen Urine Not Detected (Not Detect); Fentanyl, urine POSITIVE (Not Detect); Opiate Screen Urine Not Detected (Not Detect); Phencyclidine Screen Urine Not Detected (Not Detect)
--- NOTE | 2023-05-25 21:50 | PC.NURSE ---
Pt resting comfortably, ate dinner, now sleeping, respirations even and unlabored, skin pwd. No apparent distress. Second BMP drawn, awaiting results. Pending pt to go to pod
--- NOTE | 2023-05-25 22:00 | PHA.MEDREC ---
Pharmacy Consult ? Medication Reconciliation Pharmacy has reviewed the medication reconciliation completed by [facility]. Patient just discharge 05/12 for inpatient psych unit. Per discharge summary, patient was transition off methadone to suboxone. Mary Beth Faulkner, SriramD
[2023-05-25 22:04] VITALS: BP 129/88; PULSE 86; RESP 19; TEMP 36.6; O2SAT 98
[2023-05-25 22:19] LABS: Anion Gap 20 (12-20); Blood Urea Nitrogen 7 mg/dL (9-16); Calcium 8.2 mg/dL (8.4-10.2); Carbon Dioxide 19 mmol/L (22-29); Chloride 99 mmol/L (96-108); Creatinine Clr Calc Pharmacy 135.4; Estimated Glomerular Filt Rate > 60; Glucose Random 104 mg/dL (60-115); Potassium 2.4 mmol/L (3.3-5.1); Sodium 136 mmol/L (135-145)
[2023-05-25 23:00] VITALS: BP 130/70; PULSE 82; RESP 16; TEMP 37; O2SAT 95
[2023-05-25 23:30] LABS: Potassium 2.5 mmol/L (3.3-5.1)
[2023-05-26] MEDS: Potassium Chloride/H20 10 MEQ/100 ML PIGGYBACK 100 MEQ IV ×2 (00:01→01:20)
[2023-05-26] MEDS: Potassium Chloride Packet 20 MEQ PACKET 80 MEQ PO (00:01)
[2023-05-26 00:54] VITALS: BP 126/88; PULSE 77; RESP 20; TEMP 36.8; O2SAT 97
--- NOTE | 2023-05-26 01:15 | MHC.CARE ---
CARE team will assess Pt in the morning due to very high BAL.
[2023-05-26] MEDS: Thiamine HCL 100 MG TABLET PO (01:19)
[2023-05-26] MEDS: Dextrose 5 % and 0.45 % NaCl 1,000 ML 999 ML IVCONT (02:13)
[2023-05-26 02:43] VITALS: BP 154/81; PULSE 83; RESP 20; TEMP 37; O2SAT 98
[2023-05-26 03:18] LABS: Anion Gap 18 (12-20); Blood Urea Nitrogen 6 mg/dL (9-16); Carbon Dioxide 16 mmol/L (22-29); Chloride 102 mmol/L (96-108); Creatinine Clr Calc Pharmacy 129.7; Estimated Glomerular Filt Rate > 60; Glucose Random 274 mg/dL (60-115); Magnesium 1.8 mg/dL (1.6-2.6); Potassium 3.8 mmol/L (3.3-5.1); Sodium 132 mmol/L (135-145)
--- NOTE | 2023-05-26 04:53 | PC.NURSE ---
Patient was just transferred from main ED for endorsing suicidality, medically cleared, no distress observed/reported, behavior non concerning, ambulates steady with walker, med rec completed/pending provider's approval, asymptomatic of ETOH withdrawal at this time, PRN Ativan 2 mg available for withdrawal, care consult ordered, pending evaluation, will continue to monitor.
[2023-05-26] MEDS: LORazepam 1 MG TABLET 2 MG PO (05:19)
[2023-05-26 08:15] VITALS: BP 171/78; PULSE 78; RESP 18; TEMP 36.7; O2SAT 99
--- NOTE | 2023-05-26 09:38 | PC.NURSE ---
Pt up ambulatory to bathroom. Steady on feet. Calm and cooperative
[2023-05-26] MEDS: Omeprazole 40 MG CAPSULE.DR PO (10:31)
[2023-05-26] MEDS: Buprenorphine/Naloxone 8/2 mg FILM 1 FILM SUBLINGUAL (10:31)
[2023-05-26] MEDS: Gabapentin 400 MG CAPSULE 800 MG PO ×2 (10:31→15:48)
[2023-05-26] MEDS: busPIRone HCl 10 MG TABLET 30 MG PO (10:32)
[2023-05-26] MEDS: Fluticasone/Vilanterol 100/25 BLST.W.DEV 1 PUFF INHALE (10:34)
[2023-05-26] MEDS: Bictegrav/Emtricit/Tenofov Ala TABLET 1 TAB PO (10:44)
[2023-05-26] MEDS: Nicotine 21 MG PATCH.TD24 TRANSDERMA (10:44)
--- NOTE | 2023-05-26 12:20 | MHC.CARE ---
[facility] referral faxed to [facility] at 1220pm
--- NOTE | 2023-05-26 15:27 | MHC.CARE ---
Pt accepted to [facility] in [place] ETA pending
[2023-05-26] MEDS: buPROPion HCl XL 150 MG TAB.ER.24H PO (15:48)
[2023-05-26 15:54] VITALS: PULSE 88; RESP 15; O2SAT 98
--- NOTE | 2023-05-26 15:57 | PC.NURSE ---
assumed care of patient at 1500, patient has been resting in bed, respirations even and unlabored, skin pwd, no apparent distress. Patient tearful about situation. This RN spoke with patient and was able to console him. Pt provided with food and beverage. Plan of care for respite
== END 2023-05-26 18:34 | disposition home or self-care (01) ==
PROVIDERS: Internal Medicine; Nurse Practitioner Family; Emergency Provider Emergency Medicine; PCP Nurse Practitioner Primary Care
DX: E87.6 Hypokalemia (principal); E87.20 Acidosis, unspecified; E87.1 Hypo-osmolality and hyponatremia; F10.988 Alcohol use, unspecified with other alcohol-induced disorder; Y90.8 Blood alcohol level of 240 mg/100 ml or more; R07.9 Chest pain, unspecified; R51.9 Headache, unspecified; R45.851 Suicidal ideations; F33.9 Major depressive disorder, recurrent, unspecified; F43.10 Post-traumatic stress disorder, unspecified; B20 Human immunodeficiency virus [HIV] disease; B19.20 Unspecified viral hepatitis C without hepatic coma; F11.20 Opioid dependence, uncomplicated; F17.210 Nicotine dependence, cigarettes, uncomplicated; Z79.899 Other long term (current) drug therapy; Z20.822 Contact with and (suspected) exposure to COVID-19
CPT/HCPCS: 36415; 70450; 71046; 80048; 80053; 80307; 81003; 83690; 83735; 84132; 84484; 85025; 85610; 87635; 93005; 96361; 96365; 96366; 96367; 99285; S9485

== ENCOUNTER 2023-09-27 15:05 | Outpatient (REF) | payer OTHER, SELFPAY ==
[2023-09-27 16:23] LABS: MANUAL DIFF FLAG NO
[2023-09-27 16:31] LABS: Basophils Absolute Auto 0.1 X10*3/uL (0.0-0.2); Basophils Percent Auto 1.2 % (0-2); Eosinophils Absolute Auto 0.2 X10*3/uL (0.0-0.4); Eosinophils Percent Auto 2.1 % (0-4); Hematocrit 40.7 % (42.0-52.0); Hemoglobin 13.8 g/dl (14.0-18.0); Imm Gran Abs Auto 0.05 X10*3/uL (0.00-0.03); Imm Gran Pct Auto 0.7 % (0.0-0.4); Lymphocytes Percent Auto 25.6 % (20-40); Mean Corpuscular HGB Conc 33.9 g/dl (31.0-36.0); Mean Corpuscular Volume 88.5 fL (80.0-98.0); Mean Platelet Volume 12.9 fL (9.4-12.4); Monocytes Absolute Auto 0.9 X10*3/uL (0.1-1.2); Monocytes Percent Auto 11.7 % (2-11); Neutrophils Absolute Auto 4.5 x10*3/uL (2.0-8.3); Neutrophils Percent Auto 58.7 % (45-73); Platelet Count 121 X10*3/uL (160-400); Red Cell Distribution Width 15.9 % (11.0-16.0); White Blood Count 7.6 X10*3/uL (4.8-10.8)
[2023-09-27 16:52] LABS: Alanine Aminotransferase 47 U/L (0-40); Albumin Level 3.2 g/dL (3.5-5.0); Alkaline Phosphatase 340 U/L (39-117); Anion Gap 13 (12-20); Aspartate Amino Transferase 93 U/L (5-37); Bilirubin Total 2.5 mg/dL (0.0-1.0); Blood Urea Nitrogen 9 mg/dL (9-16); Calcium 8.8 mg/dL (8.4-10.2); Carbon Dioxide 28 mmol/L (22-29); Chloride 102 mmol/L (96-108); Estimated Glomerular Filt Rate > 60; Glucose Random 214 mg/dL (60-115); Potassium 4.6 mmol/L (3.3-5.1); Sodium 138 mmol/L (135-145); Total Protein 8.3 g/dL (6.5-8.0)
[2023-09-29 10:59] LABS: Absolute CD3 Count 1080 cells/uL (840-3060); Absolute CD4 Count 357 cells/uL (490-1740); Absolute CD8 Count 758 cells/uL (180-1170); Absolute Lymphocytes 1689 cells/uL (850-3900); CD4 CD8 Ratio 0.47 (0.86-5.00); Percent CD3 Cells 64 % (57-85); Percent CD4 Cells 21 % (30-61); Percent CD8 Cells 45 % (12-42)
[2023-09-29 11:14] LABS: RPR Rapid Plasma Reagin NON-REACTIVE (NON-REACTIVE)
[2023-09-29 13:39] LABS: HIV RNA PCR Qn Copies 129 copies/mL (NOT DETECTED); HIV RNA PCR Qn Log Copies 2.11 (NOT DETECTED)
[2023-09-30 08:08] LABS: TS Negative Control Passed; TS Panel A 1; TS Panel B 0; TS Positive Control Passed; TSpotTB Negative (Negative)
== END 2023-09-27 15:06 | disposition home or self-care (01) ==
LOC: HO.HHCL 15:05
PROVIDERS: Visit Provider Student in an Organized Health Care Education/Training Program
DX: B20 Human immunodeficiency virus [HIV] disease (principal)
CPT/HCPCS: 36415; 80053; 85025; 86359; 86360; 86481; 86592; 87536

== ENCOUNTER 2024-02-29 09:33 | Inpatient (IN) | payer OTHER, SELFPAY ==
[2024-02-29] VITALS (10 sets, daily range): BP systolic 125–179; BP diastolic 60–96; PULSE 83–101; RESP 13–22; TEMP 36–36.9; O2SAT 91–98; BMI 27.0; BMI 26.6
--- NOTE | ~2024-02-29 | US_ITS ---
EXAMINATION: US ABDOMEN LIMITED CLINICAL INFORMATION: Abdominal pain. COMPARISON: CT scan abdomen and pelvis 02/29/2024 TECHNIQUE: Real-time imaging of all 4 quadrants for ascites check FINDINGS: Technically limited study due to bowel gas. No fluid is seen in the abdomen. Ascites is noted on today's CT scan abdomen and pelvis which will be dictated in a separate report. US/US abdomen limited IMPRESSION: No fluid is seen in the abdomen on abdominal ultrasound. Technically limited study due to bowel gas. Ascites is noted on today's CT scan abdomen and pelvis which will be dictated in a separate report.
--- NOTE | ~2024-02-29 | US_ITS ---
EXAMINATION: US ABDOMEN LIMITED CLINICAL INFORMATION: Ascites and cirrhosis; question portal vein thrombosis.. COMPARISON: CT abdomen and pelvis dated 03/11/2024; abdominal ultrasound dated 03/03/2024. TECHNIQUE: Pulse and color Doppler techniques were utilized. FINDINGS: Limited evaluation shows a patent main portal vein, with hepatopedal portal venous flow. US/US abdomen limited IMPRESSION: Limited abdominal ultrasound examination demonstrates hepatopedal portal venous flow.
--- NOTE | ~2024-02-29 | XR_ITS ---
EXAMINATION: XR CHEST CLINICAL INFORMATION: Evaluate for pneumonia elevated WBC COMPARISON: CT abdomen from 03/11/2024, chest radiograph from 03/05/2024 TECHNIQUE: Frontal view of the chest was obtained. FINDINGS: Interval removal of enteric tube. Bilateral low lung volumes. Streaky opacities involving the bilateral mid and lower lung plaza may reflect atelectasis though evolving infectious/inflammatory etiology not excluded. No pneumothorax. Trachea is midline. Cardiac mediastinal silhouette is stable. No large pleural effusion. Osseous structures are intact. Soft tissues are unremarkable. XR/XR chest 1V IMPRESSION: 1. Interval removal of enteric tube. 2. Bilateral low lung volumes. 3. Streaky opacities involving the bilateral mid and lower lung plaza may reflect atelectasis though evolving infectious/inflammatory etiology not excluded.
--- NOTE | ~2024-02-29 | XR_ITS ---
EXAMINATION: XR CHEST CLINICAL INFORMATION: Nasogastric tube placement. COMPARISON: 03/04/2024 TECHNIQUE: Frontal view of the chest was obtained. FINDINGS: The volumes are low. The cardiomediastinal silhouette is stable. There are faint bibasilar opacities. There are no significant pleural effusions. A gastric tube extends below the diaphragm into left upper quadrant in good position. The bony structures and soft tissues are unremarkable XR/XR chest 1V IMPRESSION: 1. Gastric tube in good position. 2. Low lung volumes and bibasilar atelectasis. 3. No significant pleural effusions.
--- NOTE | ~2024-02-29 | XR_ITS ---
EXAMINATION: XR ABDOMEN KUB CLINICAL INDICATION: Abdominal pain. Distention. COMPARISON: None available. TECHNIQUE: AP view of the abdomen. FINDINGS: There is gas throughout large and small bowel loops. There is gas to the rectum. The overall bowel pattern is nonspecific. No abnormal calcifications are seen. Bilateral hip prostheses are noted. Soft tissues are unremarkable. XR/XR KUB IMPRESSION: Nonspecific bowel pattern. Gas throughout large and small bowel loops.
--- NOTE | ~2024-02-29 | CT_ITS ---
EXAMINATION: CT ANGIOGRAM OF THE CHEST WITH AND WITHOUT CONTRAST (CT PULMONARY ANGIOGRAM FOR PE) CLINICAL INFORMATION: Reason for Exam hypoxia COMPARISON: CT chest 10/27/2019 TECHNIQUE: Prior to contrast administration, noncontrast localization images were obtained. Subsequently, multidetector volumetric imaging was performed from the thoracic inlet to below the diaphragms following the administration of 100 mL Omnipaque 350 intravenous contrast. No contrast reaction reported Sagittal, coronal, and MIP oblique sagittal reformatted images were obtained on the CT workstation, uploaded to PACS, and reviewed. This CT examination was performed using dose optimization techniques as appropriate, variously including the following: *Automated exposure control *Adjustment of mA and/or kV according to patient size (this includes techniques or standardized protocols for targeted exams where dose is matched to indication/reason for exam; i.e. extremities or head) *Use of iterative reconstruction technique Total exam dose-length product 3092 mGy-cm FINDINGS: QUALITY OF STUDY/CONTRAST BOLUS: Bolus is satisfactory however there is marked motion artifact especially at the lung bases interfering with diagnostic detail. PULMONARY ARTERIES: No central or large segmental emboli are seen. Beyond this, comments cannot be made. THORACIC AORTA: No aneurysm. LUNG: Dependent groundglass changes are seen. Mild emphysema is present. No focal consolidation, nodules or masses. PLEURA: No pleural effusion or pneumothorax. MEDIASTINUM: The heart is mildly enlarged. No pericardial effusion. No hilar or mediastinal lymphadenopathy. No evidence of septal bowing or right heart strain. CORONARY ARTERY CALCIFICATION: Moderate CHEST WALL/AXILLA: No axillary or internal mammary lymphadenopathy. OSSEOUS STRUCTURES: No acute or suspicious osseous abnormality. UPPER ABDOMEN: See report of CT abdomen pelvis same day. No reflux of contrast into the hepatic veins to suggest elevated right heart pressures. CT/CT angio chest PE protocol IMPRESSION: No evidence of central or large segmental pulmonary emboli. This study is limited as described above.
--- NOTE | ~2024-02-29 | CT_ITS ---
EXAMINATION: CT ABDOMEN AND PELVIS WITHOUT CONTRAST CLINICAL INFORMATION: Leukocytosis. Abdominal distention. COMPARISON: Previous KUB from yesterday abdominal ultrasound from March [address] of the abdomen and pelvis 02/29/2024 TECHNIQUE: Multidetector volumetric imaging was performed from the superior aspect of the liver through the pubic symphysis. Sagittal and coronal reformatted images were obtained on the technologist's workstation. This CT examination was performed using dose optimization techniques as appropriate, variously including the following: *Automated exposure control *Adjustment of mA and/or kV according to patient size (this includes techniques or standardized protocols for targeted exams where dose is matched to indication/reason for exam; i.e. extremities or head) *Use of iterative reconstruction technique DLP: 9 7 mGy-cm FINDINGS: LIVER, GALLBLADDER, AND BILIARY TREE: Cirrhotic appearing liver. No focal liver lesion. Upper normal gallbladder size. No gallstones. No biliary duct dilatation. Increasing small amount of ascites. PANCREAS: Unremarkable. SPLEEN: Unremarkable. ADRENAL GLANDS: Unremarkable. KIDNEYS AND URETERS: Small stone in the upper pole of the left kidney versus vascular calcification. Small left renal cyst. Normal right kidney. BLADDER: Not well visualized due to artifact from bilateral hip replacements. GASTROINTESTINAL TRACT: Dilated fluid-filled stomach and small bowel new or increased from 02/29/2024. Differential would include ileus and distal small bowel obstruction. Normal caliber large bowel. Mild diverticulosis. ABDOMINAL WALL: No significant hernia is appreciated. LYMPH NODES: Normal. VASCULAR: Atherosclerotic disease. No aneurysm. PELVIC VISCERA: Not well visualized due to artifact from bilateral hip replacements. OSSEOUS STRUCTURES: Mild L4 compression fracture versus Schmorl's node. Degenerative changes of the spine. Bilateral hip replacements. CT/CT abdomen pelvis wo IV con IMPRESSION: Dilated fluid-filled stomach and small bowel new or increased from 02/29/2024. Differential would include ileus and distal small bowel obstruction. Cirrhotic-appearing liver. Increasing small amount of ascites. Small left renal stone and left renal cyst. Fleischner guidelines were followed.
--- NOTE | ~2024-02-29 | CT_ITS ---
EXAMINATION: CT ABDOMEN AND PELVIS WITHOUT CONTRAST CLINICAL INFORMATION: Abdominal pain. COMPARISON: 03/04/2024 TECHNIQUE: Multidetector volumetric imaging was performed from the superior aspect of the liver through the pubic symphysis. Sagittal and coronal reformatted images were obtained on the technologist's workstation. This CT examination was performed using dose optimization techniques as appropriate, variously including the following: *Automated exposure control *Adjustment of mA and/or kV according to patient size (this includes techniques or standardized protocols for targeted exams where dose is matched to indication/reason for exam; i.e. extremities or head) *Use of iterative reconstruction technique DLP: 806 mGy-cm FINDINGS: LUNG BASES: Chronic emphysematous lung disease. Persistent opacities with air bronchograms from consolidation and/or atelectasis in lower lobes. Also, there are persistent patchy groundglass opacities in the partially visualized lungs. HEPATOBILIARY: The cirrhotic liver has nodular surface contour. Gallbladder is grossly normal. No dilated bile ducts. PANCREAS: Mildly atrophied. No edema, pancreatic ductal dilatation or mass. SPLEEN: Normal. ADRENAL GLANDS: Normal. KIDNEYS AND URETERS: 0.2 x 0.5 cm calyceal stone of the posterior upper pole of the left kidney. Bilateral renal cysts have a benign appearance on these noncontrast images. There appears to be thin septation of a left lower pole cyst (Bosniak category 2 cyst). No renal imaging follow-up recommended. No ureteral stones or hydroureteronephrosis. BLADDER: Unremarkable. BOWEL AND PERITONEUM: [id number] volume of ascitic fluid is present, significantly increased compared to 03/04/2024. No pneumoperitoneum. Interval resolution of the previously seen distention of the stomach and small bowel. No small bowel obstruction is identified on this current exam. ABDOMINAL WALL: Mild edema of subcutaneous tissues. VASCULATURE: There is atherosclerotic calcification of the abdominal aorta without aneurysm. LYMPH NODES: No pathologic sized lymph nodes in the abdomen or pelvis. No inguinal lymphadenopathy. PELVIC VISCERA: Prostate gland is grossly unremarkable. MUSCULOSKELETAL: Streak artifact is produced by components of bilateral total hip arthroplasties. No acute or suspicious osseous abnormality. Mild and moderate discovertebral degenerative change of the visualized thoracolumbar spine. Old L4 compression fracture affecting the superior endplate. Anterior bridging enthesophytes of sacroiliac joints and chronic osseous fusion of the anteroinferior right sacroiliac joint. CT/CT abdomen pelvis wo IV con IMPRESSION: * Liver cirrhosis and significant increase in volume of ascitic fluid compared to 03/04/2024. * No evidence of small bowel obstruction on this current examination. * There is a stone of the posterior upper pole of the left kidney. No ureteral calculi or hydroureteronephrosis. * The bibasilar consolidation and groundglass pulmonary opacities remain similar in appearance compared to 03/04/2024. No new observations in the visualized lung bases.
--- NOTE | ~2024-02-29 | XR_ITS ---
EXAMINATION: XR ABDOMEN KUB CLINICAL INDICATION: Abdominal distention. Question ileus. COMPARISON: Ultrasound abdomen 02/29/2024 TECHNIQUE: AP view of the abdomen. FINDINGS: There is moderate gas seen throughout the colon and the small bowel loops likely ileus. No air-fluid levels are free air seen. There is scattered stool in the ascending and descending colon. No organomegaly. Bilateral hip prosthesis is noted. XR/XR KUB IMPRESSION: Moderate gas seen throughout the colon and small bowel loops likely ileus. No air-fluid levels seen. Mild constipation
--- NOTE | ~2024-02-29 | US_ITS ---
EXAMINATION: US ABDOMEN LIMITED CLINICAL INFORMATION: Abdominal pain and elevated LFTs. COMPARISON: Ultrasound and CT scan from 02/29/2024 TECHNIQUE: Real-time imaging of the right upper quadrant abdominal viscera. FINDINGS: Examination limited due to bowel gas distribution. PANCREAS: Pancreas is not visualized due to bowel gas distribution. LIVER: Partially visualized liver is heterogeneous with nodular contour limited for evaluation due to position and surrounded by small amount of ascites adjacent to the right lobe of liver. GALLBLADDER: Partially seen gallbladder revealed echogenic sludge and reported to be tender on compression COMMON BILE DUCT: Normal in caliber measuring 0.4 cm in diameter. RIGHT KIDNEY: Normal. No hydronephrosis. No renal calculi or focal parenchymal lesions. The kidney measures 9.6 cm in maximum dimension. FREE FLUID: There is small amount of ascites surrounding liver . US/US abdomen limited IMPRESSION: Technically limited study revealed sludge in the gallbladder, cirrhotic liver and ascites is
--- NOTE | ~2024-02-29 | CT_ITS ---
EXAMINATION: CT ABDOMEN AND PELVIS WITH CONTRAST CLINICAL INFORMATION: abd pain cp sp fall ams COMPARISON: CT scan abdomen pelvis September 06, 2022 TECHNIQUE: Multidetector volumetric images were obtained from the superior aspect of the liver through the pubic symphysis following administration 100 mL of Omnipaque 350 intravenous contrast. Sagittal and coronal reformatted images were obtained on the technologist's workstation. Oral contrast: No This CT examination was performed using dose optimization techniques as appropriate, variously including the following: *Automated exposure control *Adjustment of mA and/or kV according to patient size (this includes techniques or standardized protocols for targeted exams where dose is matched to indication/reason for exam; i.e. extremities or head) *Use of iterative reconstruction technique DLP: 817.28 mGy-cm FINDINGS: LUNG BASES: Centrilobular emphysematous change of lungs. LIVER, GALLBLADDER, AND BILIARY TREE: Nodular contour of liver suggesting underlying cirrhosis. No focal liver lesion. No intrahepatic bile duct dilatation. Right lobe of liver measures 16 cm superior inferior. The gallbladder is unremarkable with no evidence of radiopaque gallstones, gallbladder wall thickening, or obvious pericholecystic inflammatory changes. PANCREAS: Unremarkable. SPLEEN: Unremarkable. ADRENAL GLANDS: Unremarkable. KIDNEYS AND URETERS: Nonobstructive stone in the upper pole of the left kidney measuring 4 mm. Density measurement 276 Hounsfield units. There is no right renal calculus. No ureteral stone and no hydronephrosis. Multiple bilateral renal cysts. No follow-up imaging is recommended for simple renal cyst.. BLADDER: Obscured by streak artifact from bilateral hip replacement. GASTROINTESTINAL TRACT: The small and large bowel are unremarkable. The appendix is nonvisualized. MESENTERY: Small volume of abdominal ascites. Most of the fluid is in the right upper quadrant around the liver. No inflammation. ABDOMINAL WALL: No significant hernia is appreciated. LYMPH NODES: Normal. VASCULAR: Scattered vascular wall calcifications of aorta and iliac arteries. There is no aneurysm. PELVIC VISCERA: Beam hardening artifact from bilateral hip replacement obscures pelvis. OSSEOUS STRUCTURES: Bilateral hip replacement. Multilevel degenerative spondylosis spine. Compression deformity superior endplate of L4 ,about 50% loss of height of the vertebrae. This has slightly progressed since prior study September 06, 2022. CT/CT abdomen pelvis w IV con IMPRESSION: 1. No acute abnormality CT scan abdomen pelvis. 2. Compression deformity superior endplate of L4 slightly progressed since prior study September 06, 2022. 3. Nodular contour of liver suggesting underlying cirrhosis. 4. Small volume of abdominal ascites. 5. Nonobstructive stone upper pole left kidney. Fleischner guidelines were followed.
--- NOTE | ~2024-02-29 | CT_ITS ---
EXAMINATION: CT CHEST WITHOUT CONTRAST CLINICAL INFORMATION: Hypoxia. Leukocytosis. COMPARISON: Previous chest x-ray from the same day and chest CT a 02/29/2024 TECHNIQUE: Multidetector volumetric CT imaging of the chest was done. Axial MIP volume rendering provided. Sagittal and coronal reformatted images were obtained. This CT examination was performed using dose optimization techniques as appropriate, variously including the following: *Automated exposure control *Adjustment of mA and/or kV according to patient size (this includes techniques or standardized protocols for targeted exams where dose is matched to indication/reason for exam; i.e. extremities or head) *Use of iterative reconstruction technique DLP: 321 mGy-cm FINDINGS: LUNGS: The lung volumes are low. There is new dependent inferior right upper lobe airspace disease with air bronchograms. There is new bilateral dependent or posterior lower lobe airspace disease with air bronchograms. Dependent or posterior location raises question of possible aspiration. There is evidence of emphysema. Scattered areas of groundglass attenuation seen in the right middle lobe and lingula. MEDIASTINUM: The esophagus is slightly dilated and fluid-filled. Normal heart size. Small mediastinal lymph nodes. No pericardial effusion. CORONARY ARTERY CALCIFICATION: Mild PLEURA: There is no pleural effusion. No pleural mass or thickening. AXILLA: No lymphadenopathy. UPPER ABDOMEN: Ascites and cirrhosis. Very distended fluid-filled stomach. OSSEOUS STRUCTURES: C5 and C6 vertebral body nor lymph nodes versus compression fractures similar to recent chest CTA CT/CT chest wo IV con IMPRESSION: New right upper and bilateral lower lobe pneumonia. Question aspiration pneumonia. Dilated fluid-filled stomach is slightly distended fluid-filled esophagus. Fleischner guidelines were followed.
--- NOTE | ~2024-02-29 | XR_ITS ---
EXAMINATION: XR CHEST CLINICAL INFORMATION: Hypoxia COMPARISON: Chest radiograph 03/01/2024 TECHNIQUE: Frontal view of the chest was obtained. FINDINGS: Redemonstrated markedly low lung volumes with bibasilar reticular atelectasis, limits assessment. No new, confluent consolidation. No significant pleural effusion or pneumothorax. Cardiomediastinal silhouette is unchanged. XR/XR chest 1V IMPRESSION: Redemonstrated markedly low lung volumes with bibasilar atelectasis. No new, confluent consolidation.
--- NOTE | ~2024-02-29 | US_ITS ---
EXAMINATION: US ABDOMEN LIMITED CLINICAL INFORMATION: Ascites. COMPARISON: None available. TECHNIQUE: Real-time imaging of the right upper quadrant abdominal viscera. FINDINGS: Scanning in 4 quadrants shows minimal fluid in the right upper quadrant and right lower quadrant. Paracentesis was elected not to be performed at this time. US/US abdomen limited IMPRESSION: Small amount of ascites.
--- NOTE | ~2024-02-29 | CT_ITS ---
Indication: Pain EXAMINATION: CT brain, CT cervical spine. Axial imaging with coronal and sagittal reformatted images. This CT examination was performed using dose optimization techniques as appropriate, variously including the following: *Automated exposure control *Adjustment of mA and/or kV according to patient size (this includes techniques or standardized protocols for targeted exams where dose is matched to indication/reason for exam; i.e. extremities or head) *Use of iterative reconstruction technique. Radiation dose [address] brain; There is no midline shift. There is no mass effect. There is no hemorrhage. The basilar cisterns appear patent. The posterior fossa risk grossly within normal limits. No extra-axial collection. Note is made of diffuse white matter ischemic changes. Review of the bone windows demonstrates mucous retention cyst or polyp in the right maxillary sinus. Cervical spine; Degenerative changes. No acute fracture or dislocation. Carotid stent on the right seen. CT/CT cervical spine wo IV con IMPRESSION: Negative acute noncontrast CT the brain. Areas of white matter ischemic change are noted in this young patient. No acute fracture or dislocation in the cervical spine. Degenerative changes are noted.
--- NOTE | ~2024-02-29 | XR_ITS ---
EXAMINATION: XR CHEST CLINICAL INFORMATION: Shortness of breath COMPARISON: Previous chest x-ray most recent from yesterday TECHNIQUE: Frontal view of the chest was obtained. FINDINGS: The cardiac and mediastinal contours are stable. The lung volumes are low. There is bilateral atelectasis/small infiltrates. Appears increased from yesterday's exam. No pleural effusion or pneumothorax. Dilated stomach below the diaphragms noted. XR/XR chest 1V IMPRESSION: Lung volumes and increasing bilateral atelectasis or small infiltrates.
--- NOTE | ~2024-02-29 | US_ITS ---
ULTRASOUND GUIDED PARACENTESIS HISTORY: Ascites. Therapeutic and diagnostic drainage TECHNIQUE: Risks and benefits and possible complications were discussed with the patient and consent form was signed. A safe pocket of ascitic fluid was identified right lower quadrant using ultrasound guidance, and the overlying skin was marked, prepped and draped in sterile fashion. 1% lidocaine was used as a local anesthetic. Using ultrasound guidance, a 5 fr catheter was placed into the ascitic pocket. 5.0 liters of yellow fluid was removed passively. The catheter was then removed. A few human resources hr representative images from before and after the examination were obtained. The procedure was performed by Ron Farris PA-C and supervised by Dr. Spaulding. US/US paracentesis abd w/image IMPRESSION: Ultrasound-guided paracentesis as described above. No immediate complications
--- NOTE | ~2024-02-29 | XR_ITS ---
EXAMINATION: XR CHEST CLINICAL INFORMATION: Hypoxia COMPARISON: Previous chest x-ray most recent April 2023 TECHNIQUE: Frontal view of the chest was obtained. FINDINGS: The cardiac and mediastinal contours are stable. The lung volumes are low. There is subsegmental atelectasis at the lung bases. No pleural effusion or pneumothorax. No acute bone abnormality. XR/XR chest 1V IMPRESSION: Low lung volumes and subsegmental atelectasis at the lung bases.
--- NOTE | ~2024-02-29 | US_ITS ---
EXAMINATION: US ABDOMEN LIMITED CLINICAL INFORMATION: Abdominal distention. Evaluate ascites.. COMPARISON: Limited ultrasound from paracentesis procedure on 03/12/2024. Abdomen CT from 03/11/2024. TECHNIQUE: Limited sonographic imaging of the abdomen performed to evaluate for ascites. US/US abdomen limited FINDINGS AND IMPRESSION: Limited imaging of all quadrants of the abdomen reveals moderate to large volume of ascites. The ascitic fluid is anechoic (i.e., simple appearance). Otherwise, unremarkable exam.
--- NOTE | ~2024-02-29 | CT_ITS ---
Indication: Pain EXAMINATION: CT brain, CT cervical spine. Axial imaging with coronal and sagittal reformatted images. This CT examination was performed using dose optimization techniques as appropriate, variously including the following: *Automated exposure control *Adjustment of mA and/or kV according to patient size (this includes techniques or standardized protocols for targeted exams where dose is matched to indication/reason for exam; i.e. extremities or head) *Use of iterative reconstruction technique. Radiation dose [address] brain; There is no midline shift. There is no mass effect. There is no hemorrhage. The basilar cisterns appear patent. The posterior fossa risk grossly within normal limits. No extra-axial collection. Note is made of diffuse white matter ischemic changes. Review of the bone windows demonstrates mucous retention cyst or polyp in the right maxillary sinus. Cervical spine; Degenerative changes. No acute fracture or dislocation. Carotid stent on the right seen. CT/CT head/brain wo IV con IMPRESSION: Negative acute noncontrast CT the brain. Areas of white matter ischemic change are noted in this young patient. No acute fracture or dislocation in the cervical spine. Degenerative changes are noted.
--- NOTE | ~2024-02-29 | US_ITS ---
Ultrasound paracentesis History: Ascites. Risks and benefits and possible complications were discussed with the patient and consent form was signed. A safe pocket of ascitic fluid was identified using ultrasound guidance, and the overlying skin was marked. The abdomen prepped and draped in sterile fashion. 1% lidocaine was used as a local anesthetic. Using ultrasound guidance, a 5 fr catheter was placed into the ascitic pocket. 7.2 liters of yellow fluid was removed passively. The catheter was then removed. A few lifeline representatives images from before and after the examination were obtained. The procedure was performed by Ron Farris PA-C and supervised by Dr. Keyes. US/US paracentesis abd w/image Impression: Ultrasound-guided paracentesis as described above. No immediate complications
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
--- NOTE | 2024-02-29 09:58 | PC.NURSE ---
Pt placed on bedside supervisor gluing, NSR. RA SPO2 91-95%. VSS. ABD slightly distended.
--- NOTE | 2024-02-29 10:00 | ECG_ITS ---
Test Reason : SOB Blood Pressure : / mmHG Vent. Rate : 086 BPM Atrial Rate : 086 BPM P-R Int : 142 ms QRS Dur : 078 ms QT Int : 376 ms P-R-T Axes : 024 047 -06 degrees QTc Int : 449 ms Normal sinus rhythm ST & T wave abnormality, consider inferior ischemia Abnormal ECG When compared with ECG of 25-MAY-2023 18:17, T wave inversion now evident in Inferior leads Nonspecific T wave abnormality, improved in Anterior leads Referred By: Yogi Smyth Electronically Signed By:ANGELI FERRARI MD
--- NOTE | 2024-02-29 10:22 | ED_ITS ---
HPI - General Adult General Chief complaint: General Medical Stated complaint: AMS,CONFUSED,UNABLE TO ANSWER QUESTIONS PER EMS Time Seen by Provider: 02/29/24 09:45 Source: patient and EMS Mode of arrival: EMS Limitations: altered mental status History of Present Illness ED Provider: Sierra KEEN HPI narrative: 59 yo male pmh opiod dependence, COPD, HIV, Cocaine abuse, PTSD, MDD, hepatic encephalopathy, colitis, IBS, Hep C presents for evaluation of weakness, altered mental status, abdominal pain, reports alcohol use and recent fall. Poor historian, unable to provide a clear history, slow to answer questions. Patient was found by bystanders slumped over outside of hotel per EMS. Patient reports he has been drinking a lot of alcohol today. Denies drug use. Patient reports abdominal pain, nausea, SOB. Denies chest pain, fever, chills, but unable to answer questions completely. Hard to obtain NIHSS as patient is not following comands Related Data Home Medications ?Medication ?Instructions ?Recorded ?Confirmed buprenorphine 8 mg-naloxone 2 mg 1 film sublingual BID 05/25/23 05/25/23 sublingual film (Suboxone) Previous Rx's ?Medication ?Instructions ?Recorded bictegravir 50 mg-emtricitabine 1 tab PO DAILY 30 days #30 tabs 05/12/23 200 mg-tenofovir alafenam 25 mg tablet (Biktarvy) bupropion HCl 150 mg 24 hr tablet, 150 mg PO BID@0900,1500 30 days 05/12/23 extended release #60 tabs buspirone 30 mg tablet 30 mg PO BID 30 days #60 tabs 05/12/23 cyclobenzaprine 10 mg tablet 10 mg PO Q8H PRN Muscle Spasm 30 05/12/23 days #60 tabs docusate sodium 100 mg capsule 100 mg PO BID PRN constipation 30 05/12/23 days #60 caps fluticasone furoate 100 1 ea inhalation DAILY 30 days #60 05/12/23 mcg-vilanterol 25 mcg/dose ea inhalation powder (Breo Ellipta) gabapentin 800 mg tablet 800 mg PO TID 30 days #90 tabs 05/12/23 hydroxyzine HCl 25 mg tablet 25 mg PO Q6H PRN Anxiety 30 days 05/12/23 #90 tabs nicotine 21 mg/24 hr daily 21 mg transdermal DAILY PRN 05/12/23 transdermal patch nicotine cravings 28 days #28 ea omeprazole 40 mg capsule,delayed 40 mg PO DAILY@0630 30 days #30 05/12/23 release caps quetiapine 300 mg tablet 300 mg PO BEDTIME 30 days #30 tabs 05/12/23 Allergies Allergy/AdvReac Type Severity Reaction Status Date / Time ketorolac [From Toradol] AdvReac Itching Verified 02/29/24 09:47 Review of Systems 2 Review of Systems: Yes all other systems are reviewed and are negative [facility] Past Medical History Attestation statement: The following information was validated with the patient. Source: old records reviewed and nursing notes reviewed Medical History Cocaine abuse Opioid abuse MDD (major depressive disorder), recurrent severe, without psychosis Coccygeal pain Acute foot pain IBS (irritable bowel syndrome) COPD (chronic obstructive pulmonary disease) Prediabetes Colitis Hypertension PTSD (post-traumatic stress disorder) Osteoarthritis of both hips Opioid dependence Hepatitis C HIV infection Surgical History Status post right shoulder hemiarthroplasty History of right hip replacement Family History Family History Other No family history of coronary artery disease Social History Social History Household Members: None Housing: Homeless Do you presently have visiting nurse or other home services: No Unable to assess alcohol history related to: Unknown Alcohol intake: current Alcohol intake frequency: 0-2 drinks per day Alcohol type: beer Patient Tobacco Use Status: Current someday Tobacco user Cigarette Packs Per Day: 1 Years Smoked: unknown Smoked in Last 30 Days: Yes Use of substances other than those prescribed or required for medical reasons: No Substance Use Type: Marijuana Advance Directives: Yes Advance Directives on File: Yes Advance Directives Date on File: 09/07/22 Do you have a plan to hurt others: No Plan service: No Current occupational status: disabled Sexual orientation: Straight/Heterosexual Physical Exam ED Vital Signs: Vital Signs - 24 hr 02/29/24 09:44 02/29/24 09:49 02/29/24 11:42 Temperature 98.3 F Pulse Rate 91 90 88 Respiratory Rate 18 19 19 Blood Pressure 152/63 H 152/63 H 152/60 H Pulse Oximetry 94 95 98 Oxygen Delivery Method Room Air Room Air Nasal Cannula Oxygen Flow Rate 2 02/29/24 12:10 02/29/24 13:50 02/29/24 13:53 Temperature 98.4 F Pulse Rate 85 Respiratory Rate 20 20 Blood Pressure 166/84 H Pulse Oximetry 95 Oxygen Delivery Method Nasal Cannula Oxygen Flow Rate 2 BMI result Body Mass Index 27.0 vss Appearance: Alert.? Oriented to person and place not time or situation.? Slow to respond to questions Head: Normocephalic, atraumatic, no step-offs or deformities Eyes: Pupils equal, round and reactive to light.? Neck: Normal inspection.? Neck supple.? CVS: Normal heart rate and rhythm.? Pulses normal.? Respiratory: No respiratory distress.? Breath sounds normal.? Abdomen: Soft and nontender.? Skin: Skin warm and dry.? Normal skin color.? Normal skin turgor.? Extremities: No lower extremity edema.? No calf ttp. Global weakness UE asterixis noted. Neuro: Alert.? Oriented to person and place not time or situation.? Slow to respond to questions. Course Reevaluation(s) Reevaluation #1: CBC with a normocytic anemia appears to be around patient's baseline. Low platelets 141 however have been seen in the past around his baseline. Chemistry with no acute findings requiring intervention. Patient is noted to have elevated bilirubin and transaminases at baseline today slightly higher than usual. Ammonia 67 could attribute to patient's altered mental status. Troponin is pending. I was informed by nursing patient desatted to the 80s, on nasal cannula at this time. Patient is becoming more confused. I did ask CT scan to take patient next as I am concerned that there may be something else wrong with patient. Ethanol less than 10 however patient was adamant that he was drinking a lot this morning. He could just be confused. Time: 11:06 Reevaluation #2: Just received a call from the lab that patient's lactic acid is elevated. There is now concerns for infection. Zosyn as well as vancomycin ordered. As well as fluids. UA and SANCHES still pending. Time: 11:58 Reevaluation #3: UA without infection. Urine toxicology positive for buprenorphine. CT head with negative acute noncontrast CT of the brain. Areas of white matter ischemic changes are noted in the young patient. No acute fractures or dislocations of cervical spine. No evidence of central large subsegmental pulmonary emboli limited study however. CT cervical spine no acute fractures or dislocations. CT of abdomen is still pending. Plan is hospital admission. Ultrasound-guided paracentesis has been ordered. Time: 15:34 Medications Administered Discontinued Medications Generic Name Dose Route Start Last Admin Trade Name Beryl PRN Reason Stop Dose Admin Acetaminophen 975 mg 02/29/24 12:47 02/29/24 13:49 Acetaminophen 325 Mg Tablet PO 02/29/24 12:48 975 mg ONCE ONE Administration Fentanyl 50 mcg 02/29/24 13:40 02/29/24 13:50 Fentanyl Citrate/Pf 100 Mcg/2 Ml Vial IVPUSH 02/29/24 13:41 50 mcg ONCE ONE Administration Protocol Haloperidol Lactate 5 mg 02/29/24 13:47 02/29/24 14:03 Haloperidol Lactate 5 Mg/Ml Vial IVPUSH 02/29/24 13:48 5 mg ONCE ONE Administration Piperacillin Sod/Tazobactam 50 mls @ 100 mls/hr 02/29/24 11:03 02/29/24 12:14 Sod 3.375 gm/ Sodium Chloride IV 02/29/24 11:32 Infused ONCE ONE Infusion Vancomycin HCl 2,000 mg in 500 mls @ 250 mls/hr 02/29/24 11:57 02/29/24 12:13 Vancomycin/Ns IV 02/29/24 13:56 250 mls/hr ONCE ONE Administration Sodium Chloride 1,000 mls @ 999 mls/hr 02/29/24 12:00 02/29/24 12:12 Ns IV 02/29/24 13:00 999 mls/hr .Q1H1M CRISTY Administration Iohexol 100 ml 02/29/24 11:53 02/29/24 11:53 Iohexol 350 Mg/Ml 100 Ml Infus..Btl IV 02/29/24 11:54 100 ml ONCE ONE Administration Lactulose 20 gm 02/29/24 11:59 02/29/24 12:11 Lactulose 20 Gm/30 Ml Solution PO 02/29/24 12:00 20 gm ONCE ONE Administration Ondansetron HCl 4 mg 02/29/24 13:01 02/29/24 13:07 Ondansetron Hcl 4 Mg/2 Ml Vial IVPUSH 02/29/24 13:02 4 mg ONCE ONE Administration Medical Decision Making Medical Decision Making [facility] Narrative: 1015 59-year-old male presents for evaluation of weakness, altered mental status, abdominal pain, reports alcohol use and recent fall poor historian unable to provide me a clear history Physical exam this abdominal discomfort, patient slow to respond to questions, upper extremity asterixis. Global weakness. Alert to person place not time, situation. Concerns for polysubstance abuse & alcohol intoxication with possible trauma to head, neck, chest, abdomen or pelvis. Will rule out metabolic derangements, urinary tract infection overall unlikely. Will also rule out hepatic encephalopathy. Less likely dissection . Meningitis / encephalitis less likely and SBP unlikely Plan labs, imaging, urine, drug screen Differential Diagnosis Differential Diagnoses: The differential diagnosis associated with the presentation includes Concerns for polysubstance abuse & alchol intoxication with possible trauma to head, neck, chest, abdomen or pelvis. Will rule out metabolic derangements, urinary tract infection overall unlikely. Will also rule out hepatic encephalopathy. . Less likely dissection . Meningitis / encephalitis less likely nd SBP unlikely Admission/Observation Consideration of admission/observation: Escalation of care including admission/observation considered Lab Data 02/29/24 10:36 02/29/24 10:36 Labs: Lab Results 02/29/24 02/29/24 02/29/24 Range/Units 10:36 11:34 11:35 WBC 8.8 (4.8-10.8) X10*3/uL RBC 3.98 L (4.60-5.80) X10*6/uL Hgb 13.5 L (14.0-18.0) g/dl Hct 38.8 L (42.0-52.0) % MCV 97.5 (80.0-98.0) fL MCH 33.9 H (27.0-33.0) pg MCHC 34.8 (31.0-36.0) g/dl RDW 15.6 (11.0-16.0) % Plt Count 141 L (160-400) X10*3/uL MPV 11.3 (9.4-12.4) fL Immature Gran % (Auto) 0.7 H (0.0-0.4) % Neut % (Auto) 76.0 H (45-73) % Lymph % (Auto) 13.5 L (20-40) % [place] % (Auto) 8.9 (2-11) % Eos % (Auto) 0.2 (0-4) % Baso % (Auto) 0.7 (0-2) % Lymph # (Auto) 1.2 (1.2-4.9) X10*3/uL [place] # (Auto) 0.8 (0.1-1.2) X10*3/uL Eos # (Auto) 0.0 (0.0-0.4) X10*3/uL Baso # (Auto) 0.1 (0.0-0.2) X10*3/uL Abs Immat Gran (auto) 0.06 H (0.00-0.03) X10*3/uL Absolute Neuts (auto) 6.7 (2.0-8.3) x10*3/uL Absolute Nucleated RBC 0.000 (0.0-0.012) X10*3/uL Nucleated RBC % (auto) 0.0 (0.0-0.2) /100WBC PT 13.8 H 14.7 H (11.1-13.3) SEC INR 1.1 1.2 H (0.9-1.1) Sodium 138 (135-145) mmol/L Potassium 5.0 (3.3-5.1) mmol/L Chloride 105 (96-108) mmol/L Carbon Dioxide 24 (22-29) mmol/L Anion Gap 14 (12-20) BUN 11 (9-16) mg/dL Creatinine 1.02 (0.5-1.4) mg/dL Estim Creat Clear Calc 86.6 Estimated GFR > 60 Random Glucose 121 H (60-115) mg/dL Lactic Acid 2.6 H* (0.5-2.0) mmol/L Lactic Acid F/U @ 2Hr (0.5-2.0) mmol/L Calcium 8.9 (8.4-10.2) mg/dL Magnesium 2.3 (1.6-2.6) mg/dL Total Bilirubin 3.0 H (0.0-1.0) mg/dL AST 104 H (5-37) U/L ALT 45 H (0-40) U/L Alkaline Phosphatase 317 H (39-117) U/L Ammonia 67 H (13-55) umol/L Total Creatine Kinase 205 H (38-174) U/L Troponin I High Sens 4.0 (<3.5-35.0) ng/L Total Protein 8.3 H (6.5-8.0) g/dL Albumin 3.2 L (3.5-5.0) g/dL Urine Color Urine Appearance Urine pH (5.0-9.0) Ur Specific [place] (1.005-1.025) Urine Protein (Neg-Trace) mg/dL Urine Glucose (UA) (Negative) mg/dL Urine Ketones (Negative) mg/dL Urine Blood (Negative) Urine Nitrite (Negative) Ur Leukocyte Esterase (Negative) Urine RBC (0-2) /HPF Urine WBC (0-5) /HPF Ur Squamous Epith Cells (0-2) /HPF Urine Bacteria (None Seen) Hyaline Casts (0-2) /LPF Urine Opiates Screen (Not Detect) Ur Buprenorphine Scrn (Not Detect) ng/mL Ur Oxycodone Screen (Not Detect) ng/mL Urine Methadone Screen (Not Detect) ng/mL Urine Fentanyl Screen (Not Detect) Ur Barbiturates Screen (Not Detect) Ur Phencyclidine Scrn (Not Detect) Ur Amphetamines Screen (Not Detect) U Benzodiazepines Scrn (Not Detect) Urine Cocaine Screen (Not Detect) U Marijuana (THC) Screen (Not Detect) Ethyl Alcohol < 10 mg/dL 02/29/24 02/29/24 Range/Units 13:10 14:49 WBC (4.8-10.8) X10*3/uL RBC (4.60-5.80) X10*6/uL Hgb (14.0-18.0) g/dl Hct (42.0-52.0) % MCV (80.0-98.0) fL MCH (27.0-33.0) pg MCHC (31.0-36.0) g/dl RDW (11.0-16.0) % Plt Count (160-400) X10*3/uL MPV (9.4-12.4) fL Immature Gran % (Auto) (0.0-0.4) % Neut % (Auto) (45-73) % Lymph % (Auto) (20-40) % [place] % (Auto) (2-11) % Eos % (Auto) (0-4) % Baso % (Auto) (0-2) % Lymph # (Auto) (1.2-4.9) X10*3/uL [place] # (Auto) (0.1-1.2) X10*3/uL Eos # (Auto) (0.0-0.4) X10*3/uL Baso # (Auto) (0.0-0.2) X10*3/uL Abs Immat Gran (auto) (0.00-0.03) X10*3/uL Absolute Neuts (auto) (2.0-8.3) x10*3/uL Absolute Nucleated RBC (0.0-0.012) X10*3/uL Nucleated RBC % (auto) (0.0-0.2) /100WBC PT (11.1-13.3) SEC INR (0.9-1.1) Sodium (135-145) mmol/L Potassium (3.3-5.1) mmol/L Chloride (96-108) mmol/L Carbon Dioxide (22-29) mmol/L Anion Gap (12-20) BUN (9-16) mg/dL Creatinine (0.5-1.4) mg/dL Estim Creat Clear Calc Estimated GFR Random Glucose (60-115) mg/dL Lactic Acid (0.5-2.0) mmol/L Lactic Acid F/U @ 2Hr 1.3 (0.5-2.0) mmol/L Calcium (8.4-10.2) mg/dL Magnesium (1.6-2.6) mg/dL Total Bilirubin (0.0-1.0) mg/dL AST (5-37) U/L ALT (0-40) U/L Alkaline Phosphatase (39-117) U/L Ammonia (13-55) umol/L Total Creatine Kinase (38-174) U/L Troponin I High Sens (<3.5-35.0) ng/L Total Protein (6.5-8.0) g/dL Albumin (3.5-5.0) g/dL Urine Color Yellow Urine Appearance Clear Urine pH 7.0 (5.0-9.0) Ur Specific [place] >= 1.030 H (1.005-1.025) Urine Protein Negative (Neg-Trace) mg/dL Urine Glucose (UA) >=1000 H (Negative) mg/dL Urine Ketones Negative (Negative) mg/dL Urine Blood Negative (Negative) Urine Nitrite Negative (Negative) Ur Leukocyte Esterase Negative (Negative) Urine RBC 0-2 (0-2) /HPF Urine WBC 0-5 (0-5) /HPF Ur Squamous Epith Cells 0-2 (0-2) /HPF Urine Bacteria None Seen (None Seen) Hyaline Casts 0-2 (0-2) /LPF Urine Opiates Screen Not Detected (Not Detect) Ur Buprenorphine Scrn Positive H (Not Detect) ng/mL Ur Oxycodone Screen Not Detected (Not Detect) ng/mL Urine Methadone Screen Not Detected (Not Detect) ng/mL Urine Fentanyl Screen Not Detected (Not Detect) Ur Barbiturates Screen Not Detected (Not Detect) Ur Phencyclidine Scrn Not Detected (Not Detect) Ur Amphetamines Screen Not Detected (Not Detect) U Benzodiazepines Scrn Not Detected (Not Detect) Urine Cocaine Screen Not Detected (Not Detect) U Marijuana (THC) Screen Not Detected (Not Detect) Ethyl Alcohol mg/dL Critical Care Time Critical Care Time Critical Care Time: Yes Total Critical Care Time: 35 Attestation: I attest to this time spent taking care of the patient, obtaining history, physical, reviewing labs, imaging, speaking to my attending, specialist or hospitalist. Discharge Plan Discharge Clinical Impression: AMS (altered mental status), Encephalitis, Hypoxia, Acute hepatic encephalopathy Patient Disposition: Admitted As Inpatient Prescriptions: No Action nicotine 21 mg/24 hr Patch 24 Hour 21 mg transdermal DAILY PRN (Reason: nicotine cravings) 28 Days Qty: 28 0RF buspirone 30 mg tablet 30 mg PO BID 30 Days Qty: 60 0RF bupropion HCl 150 mg Tablet Extended Release 24 Hr 150 mg PO BID@0900,1500 30 Days Qty: 60 0RF hydroxyzine HCl 25 mg Tablet 25 mg PO Q6H PRN (Reason: Anxiety) 30 Days Qty: 90 0RF docusate sodium 100 mg Capsule 100 mg PO BID PRN (Reason: constipation) 30 Days Qty: 60 0RF cyclobenzaprine 10 mg tablet 10 mg PO Q8H PRN (Reason: Muscle Spasm) 30 Days Qty: 60 0RF omeprazole 40 mg capsule,delayed release(DR/EC) 40 mg PO DAILY@0630 30 Days Qty: 30 0RF gabapentin 800 mg tablet 800 mg PO TID 30 Days Qty: 90 0RF fluticasone furoate-vilanterol [Breo Ellipta] 100-25 mcg/dose blister with device 1 ea inhalation DAILY 30 Days Qty: 60 0RF Biktarvy 50-200-25 mg tablet 1 tab PO DAILY 30 Days Qty: 30 0RF quetiapine 300 mg tablet 300 mg PO BEDTIME 30 Days Qty: 30 0RF buprenorphine-naloxone [Suboxone] 8-2 mg film 1 film sublingual BID Print Language: Burundian
--- NOTE | 2024-02-29 10:33 | PC.NURSE ---
Pts SPO2 noted to drop to 86-88% on RA, placed on 2L O2 via NC with improvements to 95-98%
[2024-02-29 10:45] LABS: MANUAL DIFF FLAG NO
[2024-02-29 10:51] LABS: Basophils Absolute Auto 0.1 X10*3/uL (0.0-0.2); Basophils Percent Auto 0.7 % (0-2); Eosinophils Percent Auto 0.2 % (0-4); Hematocrit 38.8 % (42.0-52.0); Hemoglobin 13.5 g/dl (14.0-18.0); Imm Gran Abs Auto 0.06 X10*3/uL (0.00-0.03); Imm Gran Pct Auto 0.7 % (0.0-0.4); Lymphocytes Absolute Auto 1.2 X10*3/uL (1.2-4.9); Lymphocytes Percent Auto 13.5 % (20-40); Mean Corpuscular HGB Conc 34.8 g/dl (31.0-36.0); Mean Corpuscular Hemoglobin 33.9 pg (27.0-33.0); Mean Corpuscular Volume 97.5 fL (80.0-98.0); Mean Platelet Volume 11.3 fL (9.4-12.4); Monocytes Absolute Auto 0.8 X10*3/uL (0.1-1.2); Monocytes Percent Auto 8.9 % (2-11); Neutrophils Absolute Auto 6.7 x10*3/uL (2.0-8.3); Platelet Count 141 X10*3/uL (160-400); Red Blood Count 3.98 X10*6/uL (4.60-5.80); Red Cell Distribution Width 15.6 % (11.0-16.0); White Blood Count 8.8 X10*3/uL (4.8-10.8)
[2024-02-29 10:52] LABS: INTERNATIONAL NORM RATIO 1.1 (0.9-1.1); Prothrombin Time 13.8 SEC (11.1-13.3)
[2024-02-29 10:53] LABS: Ammonia 67 umol/L (13-55)
[2024-02-29 11:02] LABS: Alanine Aminotransferase 45 U/L (0-40); Albumin Level 3.2 g/dL (3.5-5.0); Alkaline Phosphatase 317 U/L (39-117); Anion Gap 14 (12-20); Aspartate Amino Transferase 104 U/L (5-37); Blood Urea Nitrogen 11 mg/dL (9-16); Calcium 8.9 mg/dL (8.4-10.2); Carbon Dioxide 24 mmol/L (22-29); Chloride 105 mmol/L (96-108); Creatinine Clr Calc Pharmacy 86.6; Estimated Glomerular Filt Rate > 60; Ethanol < 10 mg/dL; Glucose Random 121 mg/dL (60-115); Magnesium 2.3 mg/dL (1.6-2.6); Sodium 138 mmol/L (135-145); Total Protein 8.3 g/dL (6.5-8.0)
--- NOTE | 2024-02-29 11:02 | PC.NURSE ---
Pt clammy and warm. Noted to have some difficulty forming words/ difficulty with his speech. Stroke scale assessed, pt neg for unilateral arm and leg weakness, arm drift, facial droop. Provider alerted.
--- NOTE | 2024-02-29 11:08 | PC.NURSE ---
Delay in blood cultures and ABX due to pt taken to CT scan
[2024-02-29] MEDS: Piperacillin Sodium/Tazobactam 3.375 GM in 0.9 % Sodium Chloride 50 ML IV (11:41)
--- NOTE | 2024-02-29 11:44 | PC.NURSE ---
Addendum entered by Lynette Vogel 02/29/24 12:23: order changed to PO, pt able to swallow, tolerates PO. Nursing swallow screen done and pt passed. Original Note: waiting for Lactulose FL from pharmacy.
[2024-02-29 11:47] LABS: INTERNATIONAL NORM RATIO 1.2 (0.9-1.1); Prothrombin Time 14.7 SEC (11.1-13.3)
[2024-02-29] MEDS: iohexoL 350 MG/ML 100 ML INFUS..BTL IV (11:53)
[2024-02-29 11:56] LABS: Lactic Acid 2.6 mmol/L (0.5-2.0)
[2024-02-29] MEDS: Lactulose 20 GM/30 ML SOLUTION PO ×2 (12:11→21:03)
[2024-02-29] MEDS: 0.9 % Sodium Chloride 1,000 ML 999 ML IV (12:12)
[2024-02-29] MEDS: vancomycin/NS 2,000 MG/500 ML PLAST..BAG 250 MG IV (12:13)
[2024-02-29] MEDS: ondansetron HCL 4 MG/2 ML VIAL IVPUSH (13:07)
[2024-02-29 13:37] LABS: Amphetamine Screen Urine Not Detected (Not Detect); Barbiturates, Urine Not Detected (Not Detect); Benzodiazepines Screen Urine Not Detected (Not Detect); Buprenorphine Scr Positive (Not Detect); Cannabinoid Screen Urine Not Detected (Not Detect); Cocaine Screen Urine Not Detected (Not Detect); Fentanyl, urine Not Detected (Not Detect); Methadone Screen, Urine Not Detected (Not Detect); Opiate Screen Urine Not Detected (Not Detect); Oxycodone Screen Urine Not Detected (Not Detect); Phencyclidine Screen Urine Not Detected (Not Detect)
[2024-02-29 13:38] LABS: Reflex Lactate? Lactic Acid Added
[2024-02-29 13:45] LABS: Appearance Urine Clear; Color Urine Yellow; Glucose Urine UA >=1000 mg/dL (Negative); Leukocyte Esterase Urine Negative (Negative); Nitrite Urine Negative (Negative); Specific Gravity - Urine >= 1.030 (1.005-1.025); UMIC TRIGGER UACC YES; Urine Blood Negative (Negative); Urine Ketones Negative (Negative); Urine Protein Negative (Neg-Trace)
[2024-02-29 13:48] LABS: Bacteria Urine None Seen (None Seen); Hyaline Casts Urine 0-2 /LPF (0-2); RBC Urine 0-2 /HPF (0-2); Squamous Epithelial Cell Urine 0-2 /HPF (0-2); WBC Urine 0-5 /HPF (0-5)
[2024-02-29] MEDS: Acetaminophen 325 MG TABLET 975 MG PO (13:49)
[2024-02-29] MEDS: fentaNYL citrate/PF 100 MCG/2 ML VIAL 50 MCG IVPUSH (13:50)
[2024-02-29] MEDS: Haloperidol Lactate 5 MG/ML VIAL IVPUSH (14:03)
[2024-02-29 15:07] LABS: ~Lactic Acid-LAB USE ONLY 1.3 mmol/L (0.5-2.0)
--- NOTE | 2024-02-29 15:47 | PC.NURSE ---
ABD noted to increase in distention. Pt reports nausea has resolved but pain still persists. Provider aware. US at bedside.
--- NOTE | 2024-02-29 16:33 | PM.IMHP ---
History of Present Illness Date of Service: 02/29/24 Attending physician on admission: Rosendo Quinonez Chief Complaint: confusion This is a 59 year old male with history of opiate abuse on Suboxone chronic hepatitis-C, HIV on Biktarvy, history of alcohol abuse, liver cirrhosis brought into the emergency department for evaluation of altered mental status. He was reportedly found by bystanders slumped over outside of a hotel. He reports drinking a lot of alcohol however his alcohol level was negative. Received a dose of lactulose and empiric antibiotics. Multiple imaging studies obtained mostly unremarkable. Patient was complaining of abdominal pain, CT scan of the abdomen and pelvis was negative for any acute changes. Did show compression deformity of L4 which was slightly progressed from prior study in 2021. Slight abdominal distention therefore plan was for paracentesis however there was not enough abdominal fluid for this to be done. He received a dose of lactulose and his mental status improved somewhat. Brain CT was negative for any acute changes, chronic white matter ischemic changes noted. Lab work was significant for elevated ammonia level. He was afebrile, no leukocytosis, no evidence of infection. Lactic acid initially 2.6, down to 1.3 after fluid. LFTs chronically elevated, appears similar to baseline. Patient will be admitted for further management of acute toxic metabolic encephalopathy Review of Systems Review of Systems: Yes all other systems are reviewed and are negative Constitutional: Constitutional: Denies fever(s) Cardiovascular: Cardiovascular: Denies chest pain Gastrointestinal: Gastrointestinal: Reports abdominal pain [facility] Medical History Cocaine abuse Opioid abuse MDD (major depressive disorder), recurrent severe, without psychosis Coccygeal pain Acute foot pain IBS (irritable bowel syndrome) COPD (chronic obstructive pulmonary disease) Prediabetes Colitis Hypertension PTSD (post-traumatic stress disorder) Osteoarthritis of both hips Opioid dependence Hepatitis C HIV infection Family History Other No family history of coronary artery disease Surgical History Status post right shoulder hemiarthroplasty History of right hip replacement Social History Household Members: None Housing: Homeless Do you presently have visiting nurse or other home services: No Unable to assess alcohol history related to: Unknown Alcohol intake: current Alcohol intake frequency: 0-2 drinks per day Alcohol type: beer Patient Tobacco Use Status: Current someday Tobacco user Cigarette Packs Per Day: 1 Years Smoked: unknown Smoked in Last 30 Days: Yes Use of substances other than those prescribed or required for medical reasons: No Substance Use Type: Marijuana Advance Directives: Yes Advance Directives on File: Yes Advance Directives Date on File: 09/07/22 Do you have a plan to hurt others: No Plan service: No Current occupational status: disabled Sexual orientation: Straight/Heterosexual Meds Allergies Allergy/AdvReac Type Severity Reaction Status Date / Time ketorolac [From Toradol] AdvReac Itching Verified 02/29/24 09:47 Home Medications ?Medication ?Instructions ?Recorded ?Confirmed ?Last Taken ?Type buprenorphine 8 mg-naloxone 2 mg 1 film sublingual BID 05/25/23 05/25/23 05/22/23 History sublingual film (Suboxone) Physical Exam Vital Signs and Narrative: Vital Signs: Last Vital Signs Temp 98.4 F 02/29/24 12:10 Pulse 85 02/29/24 13:53 Resp 20 02/29/24 13:53 BP 166/84 H 02/29/24 13:53 Pulse Ox 95 02/29/24 13:53 O2 Del Method Nasal Cannula 02/29/24 13:53 O2 Flow Rate 2 02/29/24 13:53 BMI result Body Mass Index 27.0 Const: General: cooperative, comfortable, no acute distress, alert and awake Nutritional Appearance: average body habitus Orientation/consciousness: oriented to person and oriented to place Resp: Effort & Inspection: normal respiratory effort, able to speak in complete sentences, no respiratory distress and no use of accessory muscles Cardio: Rate: regular rate Neuro: Other: grossly nonfocal; face symmetrical, tongue midline, moving all extremities General: oriented to person, oriented to place and moves all extremities Extrem: General: Yes no pedal edema Results Labs 02/29/24 10:36 02/29/24 10:36 Labs: Laboratory Results - last 24 hr 02/29/24 02/29/24 02/29/24 10:36 11:34 11:35 MCV 97.5 MCH 33.9 H MCHC 34.8 RDW 15.6 Plt Count 141 L MPV 11.3 Immature Gran % (Auto) 0.7 H Neut % (Auto) 76.0 H Lymph % (Auto) 13.5 L Lander % (Auto) 8.9 Eos % (Auto) 0.2 Baso % (Auto) 0.7 Lymph # (Auto) 1.2 Lander # (Auto) 0.8 Eos # (Auto) 0.0 Baso # (Auto) 0.1 Abs Immat Gran (auto) 0.06 H Absolute Neuts (auto) 6.7 Absolute Nucleated RBC 0.000 Nucleated RBC % (auto) 0.0 PT 13.8 H 14.7 H INR 1.1 1.2 H Anion Gap 14 Estim Creat Clear Calc 86.6 Estimated GFR > 60 Random Glucose 121 H Lactic Acid 2.6 H* Lactic Acid F/U @ 2Hr Calcium 8.9 Magnesium 2.3 Total Bilirubin 3.0 H AST 104 H ALT 45 H Alkaline Phosphatase 317 H Ammonia 67 H Total Creatine Kinase 205 H Troponin I High Sens 4.0 Total Protein 8.3 H Albumin 3.2 L Urine Color Urine Appearance Urine pH Ur Specific Harper Urine Protein Urine Glucose (UA) Urine Ketones Urine Blood Urine Nitrite Ur Leukocyte Esterase Urine RBC Urine WBC Ur Squamous Epith Cells Urine Bacteria Hyaline Casts Urine Opiates Screen Ur Buprenorphine Scrn Ur Oxycodone Screen Urine Methadone Screen Urine Fentanyl Screen Ur Barbiturates Screen Ur Phencyclidine Scrn Ur Amphetamines Screen U Benzodiazepines Scrn Urine Cocaine Screen U Marijuana (THC) Screen Ethyl Alcohol < 10 02/29/24 02/29/24 13:10 14:49 MCV MCH MCHC RDW Plt Count MPV Immature Gran % (Auto) Neut % (Auto) Lymph % (Auto) Lander % (Auto) Eos % (Auto) Baso % (Auto) Lymph # (Auto) Lander # (Auto) Eos # (Auto) Baso # (Auto) Abs Immat Gran (auto) Absolute Neuts (auto) Absolute Nucleated RBC Nucleated RBC % (auto) PT INR Anion Gap Estim Creat Clear Calc Estimated GFR Random Glucose Lactic Acid Lactic Acid F/U @ 2Hr 1.3 Calcium Magnesium Total Bilirubin AST ALT Alkaline Phosphatase Ammonia Total Creatine Kinase Troponin I High Sens Total Protein Albumin Urine Color Yellow Urine Appearance Clear Urine pH 7.0 Ur Specific Harper >= 1.030 H Urine Protein Negative Urine Glucose (UA) >=1000 H Urine Ketones Negative Urine Blood Negative Urine Nitrite Negative Ur Leukocyte Esterase Negative Urine RBC 0-2 Urine WBC 0-5 Ur Squamous Epith Cells 0-2 Urine Bacteria None Seen Hyaline Casts 0-2 Urine Opiates Screen Not Detected Ur Buprenorphine Scrn Positive H Ur Oxycodone Screen Not Detected Urine Methadone Screen Not Detected Urine Fentanyl Screen Not Detected Ur Barbiturates Screen Not Detected Ur Phencyclidine Scrn Not Detected Ur Amphetamines Screen Not Detected U Benzodiazepines Scrn Not Detected Urine Cocaine Screen Not Detected U Marijuana (THC) Screen Not Detected Ethyl Alcohol Imaging Radiologist's Impressions: Impressions Abdomen/Pelvis CT 02/29/24 11:53 IMPRESSION: 1. No acute abnormality CT scan abdomen pelvis. 2. Compression deformity superior endplate of L4 slightly progressed since prior study September 06, 2022. 3. Nodular contour of liver suggesting underlying cirrhosis. 4. Small volume of abdominal ascites. 5. Nonobstructive stone upper pole left kidney. Fleischner guidelines were followed. Cervical Spine CT 02/29/24 11:53 IMPRESSION: Negative acute noncontrast CT the brain. Areas of white matter ischemic change are noted in this young patient. No acute fracture or dislocation in the cervical spine. Degenerative changes are noted. Chest CTA 02/29/24 11:53 IMPRESSION: No evidence of central or large segmental pulmonary emboli. This study is limited as described above. Head CT 02/29/24 11:53 IMPRESSION: Negative acute noncontrast CT the brain. Areas of white matter ischemic change are noted in this young patient. No acute fracture or dislocation in the cervical spine. Degenerative changes are noted. Assessment and Plan (1) Acute hepatic encephalopathy: Status: Acute Plan This is a 59-year-old homeless male with history of opiate dependence on Suboxone, HIV on Biktarvy, chronic hepatitis-C, depression, PTSD, liver cirrhosis, COPD who was brought to the emergency department for evaluation of encephalopathy found to have elevated ammonia levels Acute Toxic metabolic encephalopathy likely due to hepatic encephalopathy in the setting of multifactorial liver cirrhosis Received a dose of lactulose in the emergency department with some improvement - Will continue scheduled lactulose with goal of 2-3 bowel movements daily will treat with IV thiamine due to history of etoh abuse Afebrile, no leukocytosis, UA negative, no evidence of infection. brain CT negative for acute findings and no focal neurological deficits Abdominal pain Question referred pain from L4 compression fracture Possible component of constipation CT scan of abdomen/pelvis shows no other pathology which could explain lower abdominal pain Minimal ascites, per IR not enough for paracentesis Acute lactic acidosis Likely secondary to decreased clearance due to underlying liver disease and not due to sepsis No evidence of infection History of alcohol abuse No evidence of alcohol withdrawal at this time alcohol level negative in the emergency department Will monitor on CIWA, if patient becomes symptomatic we will treat with phenobarbital protocol addiction medicine evaluation History of opiate abuse Continue baseline Suboxone med reconciliation has been completed Tobacco dependence Smoking cessation advised NRT Thrombocytopenia Appears chronic. Likely related to underlying liver disease Liver cirrhosis Has history of chronic hepatitis-C as well as alcohol abuse LFTs chronically elevated, near baseline Outpatient follow-up with GI Normocytic anemia Likely due to chronic alcohol use Above transfusion threshold HIV continue biktarvy when med rec complete outpatient follow up Med rec pending at the time of admission DVT prophylaxis Lovenox Healthcare proxy - patient reports he would want his brother Garfield to be his healthcare proxy Patient will likely require 2 midnight stay in the hospital for management encephalopathy likely due to hepatic encephalopathy Quality Stroke Does the patient have a stroke diagnosis?: No VTE Prior VTE?: No VTE Risk Level:: Medical - moderate - high VTE Device Contraindication: N/A - Device Ordered VTE Drug Contraindication: Treatment Not Indicated
[2024-02-29] MEDS: Thiamine HCL 200 MG in 0.9 % Sodium Chloride 100 ML 204 MG IV (17:17)
[2024-02-29] MEDS: Nicotine 14 MG PATCH.TD24 TRANSDERMA (17:17)
[2024-02-29] MEDS: Morphine Sulfate 2 MG/ML CARTRIDGE IVPUSH (17:31)
[2024-02-29 17:46] LABS: Alanine Aminotransferase 44 U/L (0-40); Albumin Level 3.3 g/dL (3.5-5.0); Alkaline Phosphatase 325 U/L (39-117); Aspartate Amino Transferase 97 U/L (5-37); Bilirubin Total 4.2 mg/dL (0.0-1.0); Total Protein 8.6 g/dL (6.5-8.0)
[2024-02-29 18:49] LABS: Glucose, Whole Blood 134 mg/dL (60-115)
[2024-02-29] MEDS: Docusate Sodium 100 MG CAPSULE PO (21:01)
[2024-02-29 22:25] LABS: Glucose, Whole Blood 130 mg/dL (60-115)
--- NOTE | 2024-02-29 22:35 | PHA.MEDREC ---
Pharmacy Consult ? Medication Reconciliation Pharmacy has completed the medication reconciliation. Patient has altered mental status, utilized rx bottles in safe and pharmacy claims.
[2024-02-29] MEDS: 0.9 % Sodium Chloride Flush 3 ML SYRINGE IVFLUSH (22:52)
[2024-03-01] VITALS (7 sets, daily range): BP systolic 126–184; BP diastolic 66–96; PULSE 72–87; RESP 16–20; TEMP 36–36.8; O2SAT 88–92
[2024-03-01] MEDS: Thiamine HCL 200 MG in 0.9 % Sodium Chloride 100 ML 204 MG IV ×3 (00:07→17:08)
--- NOTE | 2024-03-01 01:23 | PM.EVENT ---
Event Note Date of Service: 03/01/24 Event Note: Was notified that patient's blood culture positive for Gram-positive cocci in clusters. Initiating empiric IV vancomycin Time Spent With Patient Time: Total time managing care of this patient today ____ minutes.
[2024-03-01] MEDS: vancomycin HCL 1,250 MG in 0.9 % Sodium Chloride 250 ML 166.67 MG IV ×2 (02:15→15:35)
[2024-03-01] MEDS: ondansetron HCL 4 MG/2 ML VIAL IVPUSH (06:04)
--- NOTE | 2024-03-01 07:00 | CA_ITS ---
Transthoracic Echocardiogram Patient (Last, First, Middle): Wilver Damian Tremelle R Gender: Male Date of : 1965 Age: 59 Procedure Date: 03/01/2024 Procedure Type: Transthoracic Echocardiogram Location: [facility] – [place] Height: 182.88 cm Weight: 88.91 kg BSA: 2.11 m2 Heart Rate: bpm BP: 184 / 96 mmHg Sales Operations Coordinator: TO Referring MD: Donya ANDINO Global Process Owner: Rohit To MD Symptoms: gram + bacteremia, eval for endocarditis Study Quality: Fair/Contrast ECG Rhythm: Sinus Conclusions: - 1. Hyperdynamic LV ejection fraction greater than 70% with impaired relaxation filling pattern 2. No obvious vegetations on this study but they can not be entirely ruled out with normal cardiac valvular Dopplers Findings Procedure Information Contrast agent, definity, is being given per protocol without apparent complications. Left Ventricle Normal left ventricular cavity size. There is normal left ventricular wall thickness. The left ventricular systolic function is hyperdynamic. The visually estimated ejection fraction is >70%. Spectral Doppler is indicative of an impaired relaxation filling pattern. E/E prime ratio is between 8 and 15 consistent with indeterminate filling pressures. Right Ventricle Mildly increased right ventricular cavity size. There is normal right ventricular systolic function. Atria The left atrium is normal in size. Interatrial shunt cannot be excluded. The right atrium was not well visualized. Aortic Valve There is mild calcification of the aortic valve. There is mild thickening of the aortic valve. There is no aortic valve stenosis. There is no aortic valve regurgitation. Mitral Valve There is mild anterior and posterior mitral leaflet thickening. There is trace mitral valve regurgitation. There is no mitral valve stenosis. Pulmonic Valve The pulmonic valve was not well visualized. Tricuspid Valve The tricuspid valve was not well visualized. There is mild tricuspid valve regurgitation. The right ventricular systolic pressure is not calculated. Indeterminate right atrial pressure. Great Vessels The aorta was not well visualized. The pulmonary artery was not well visualized. There is mild dilatation of the ascending aorta measuring 3.70 cm. Venous The inferior vena cava was not well visualized. Pericardium/Pleural The pericardium was not well visualized. Recommendations, Care & Conclusions Consider a GORDO if clinically appropriate. Measurements 2D Linear Measurements IVSd: 0.90 0.6-0.9/0.6-1.0 cm LVIDd: 5.06 3.9-5.3/4.2-5.9 cm LVIDd Index: 2.40 2.4-3.2/2.2-3.1 cm/m2 LVIDs: 3.21 2.0-3.6 cm LVPWd: 0.92 0.7-1.1 cm LA Diam: 3.80 2.7-3.8/3.0-4.0 cm LAIDs Index: 1.80 1.5-2.3 cm/m2 LV Mass: 203.95 67-162/88-224 g LV Mass Index: 96.66 43-95/49-115 g/m2 LVOT Diam: 2.30 3.0+(-)1.3 cm 2D Systolic Function EF 4C: 78.60 >55% EF 2C: 67.70 >55% EF BiP: 72.60 >55% Mitral Valve MV Pk E: 0.72 MV PK A: 0.69 MV Decel Time: 193.00 E/A: 1.00 E'Lateral: 10.10 E'Medial: 7.18 E/E' Med: 10.10 E/E' Lat: 7.20 PHT: 56.00 MVA PHT: 3.93 Decel [place]: 3.76 Aortic Valve AoV Pk Joo: 1.54 AoV Mn Joo: 1.09 AoV VTI: 0.29 AoV Pk Grad: 9.00 Aov Mn Grad: 5.00 OBIE Cont.VTI: 3.02 LVOT LVOT Pk Joo: 1.16 LVOT Mn Joo: 0.70 LVOT VTI: 0.21 LVOT Pk Grad: 5.00 LVOT Mn Grad: 2.00 LVOT Diam: 2.30 LVOT Area: 4.15 Diastolic Function MV Pk E: 0.72 MV Pk A: 0.69 E/A: 1.00 E'Medial: 7.18 E/E' Med: 10.10 E' Laterial: 10.10 E/E' Lat: 7.20 Right Ventricle TAPSE (mm): 20.80 TVS' Joo: 22.10 Tricuspid Valve TR Pk Joo: 2.85 TR Pk Grad: 32.00 Great Vessels Aorta Sinus of Valsalva: 3.71 2.0-3.5 cm Ao Asc: 3.70 2.1-3.4 cm Updated in Other Vendor System with Status of Final Rohit To MD electronically signed on 03/01/2024 5:01:24 PM with status of Final
[2024-03-01 07:08] LABS: Glucose, Whole Blood 158 mg/dL (60-115)
[2024-03-01 07:34] LABS: Hematocrit 39.2 % (42.0-52.0); Hemoglobin 13.5 g/dl (14.0-18.0); Mean Corpuscular HGB Conc 34.4 g/dl (31.0-36.0); Mean Corpuscular Hemoglobin 34.3 pg (27.0-33.0); Mean Corpuscular Volume 99.5 fL (80.0-98.0); Mean Platelet Volume 11.2 fL (9.4-12.4); Platelet Count 144 X10*3/uL (160-400); Red Blood Count 3.94 X10*6/uL (4.60-5.80); Red Cell Distribution Width 15.9 % (11.0-16.0)
[2024-03-01 07:47] LABS: Anion Gap 12 (12-20); Blood Urea Nitrogen 15 mg/dL (9-16); Calcium 8.2 mg/dL (8.4-10.2); Carbon Dioxide 22 mmol/L (22-29); Chloride 107 mmol/L (96-108); Creatinine Clr Calc Pharmacy 109.1; Estimated Glomerular Filt Rate > 60; Glucose Random 148 mg/dL (60-115); Potassium 4.3 mmol/L (3.3-5.1); Sodium 137 mmol/L (135-145)
[2024-03-01 08:28] LABS: Alanine Aminotransferase 37 U/L (0-40); Albumin Level 2.9 g/dL (3.5-5.0); Alkaline Phosphatase 258 U/L (39-117); Aspartate Amino Transferase 71 U/L (5-37); Bilirubin Direct 4.3 mg/dL (0.0-0.5); Bilirubin Total 5.8 mg/dL (0.0-1.0); Total Protein 7.8 g/dL (6.5-8.0)
[2024-03-01] MEDS: Nicotine 14 MG PATCH.TD24 TRANSDERMA (08:50)
[2024-03-01] MEDS: Docusate Sodium 100 MG CAPSULE PO ×2 (08:50→21:48)
[2024-03-01] MEDS: Lactulose 20 GM/30 ML SOLUTION PO ×3 (08:50→21:46)
[2024-03-01] MEDS: Folic Acid 1 MG TABLET PO (08:51)
[2024-03-01] MEDS: Famotidine 20 MG TABLET PO (08:51)
[2024-03-01] MEDS: Bictegrav/Emtricit/Tenofov Ala TABLET 1 TAB PO (08:51)
[2024-03-01] MEDS: buPROPion HCl XL 150 MG TAB.ER.24H PO ×2 (08:51→15:36)
[2024-03-01] MEDS: Buprenorphine/Naloxone 8/2 mg FILM 1 FILM SUBLINGUAL ×3 (08:51→21:47)
[2024-03-01] MEDS: 0.9 % Sodium Chloride Flush 3 ML SYRINGE IVFLUSH ×3 (08:51→21:50)
[2024-03-01] MEDS: Insulin Lispro 100 UNIT/ML 3 ML VIAL SUBCUT ×3 (08:51→17:07)
[2024-03-01] MEDS: Clopidogrel Bisulfate 75 MG TABLET PO (08:51)
--- NOTE | 2024-03-01 09:35 | PHA.PROG ---
Admission Date/Time: February 29, 2024 16:22 Indication: BACTEREMIA Weight in k kg Adjusted body weight in Kg: [place] body weight in Kg: Obesity Dosing Indication % IBW: Serum Creatinine - Last 168 Hours 02/29/24 03/01/24 10:36 07:13 Creatinine 1.02 0.81 Estimated CrCl and GFR - Last 168 Hours 02/29/24 03/01/24 10:36 07:13 Estim Creat Clear Calc 86.6 109.1 Estimated GFR > 60 > 60 Vancomycin Loading Dose: 2000 MG Current Vancomycin Dosing Regimen: 1250 MG Q12H Vancomycin Monitoring using AUC goal of 400 - 600 range with trough as surrogate marker: CYR=316 TROUGH=16.6 Date and Time for next Vancomycin Level to be drawn: 03/01/24 @2100 Pharmacist Comments on Vancomycin Plan: random is being drawn early because otherwise it would be 0000 03/02/24. Vancomycin dosing will take advantage of [employer] as a clinical decision support tool that uses Bayesian modeling to calculate individual patient's pharmacokinetic parameters and forecast the patient's drug concentration time course with the target goal AUC 24 range of 400 - 600 mg/L/hr.
--- NOTE | 2024-03-01 09:47 | MHC.CM.PN ---
CM met with Patient at bedside, who was mumbling words that CM could not understand. CM attempted both #s listed for Brother/HCP/[facility], but was not able to reach him(original IMM will b mailed certified letter to [facility] and a copy has been placed on the chart). From chart review, Patient is homeless, although he has an address listed. Patient may benefit from a Care e and Recovery Team Consult to assist with disposition. CM has initiated and will follow for dc planning.
[2024-03-01 10:56] LABS: Glucose, Whole Blood 167 mg/dL (60-115)
--- OUTSIDE RECORDS SUMMARY | 2024-03-01 11:15 | XMS_ITS | Continuity of Care Document ---
Author Organization [facility] Address [address] [place] [address]- Care Team Providers Care Net Finisher Name Role Phone Naga TIMBER SUPERVISOR, Shayy Barnes Primary Care Physician Encounter [facility] Date(s): 10/30/23 - 11/15/[address] [id number] Discharge Disposition: A-Transfer SNF Attending Physician: Yassine Hernandez MD Admitting Physician: Miles ALBARRAN, Stephen Peacock Referring Physician: Not on Staff, Referring MD Allergies, Adverse Reactions, Alerts Substance Reaction Severity Status Toradol Active Immunizations Given and Recorded Vaccine Date Status Refusal Reason influenza virus vaccine, inactivated 10/31/23 Give n influenza virus vaccine, inactivated 07/26/15 Give n Twinrix (oldterm) 1 01/01/14 Given pneumococcal 13-valent vaccine 01/02/13 Given tetanus/diphtheria/pertussis, acel(Tdap) 07/11/12 Given Pneumovax 23 (oldterm) 2 03/16/10 Given 1Admin Note: Booster, double dose in divided doses both arms 2Admin Note: pt states received at [facility] amoxicillin 500 mg oral capsule = 1,000 mg, By Mouth, 3 times a day, 0 Refills, Maintenance, 11/15/23 13:45:00 EST, Capsule, Partial fill upon patient request if the prescription is for a schedule II opioid drug. Start Date: 11/15/23 Stop Date: 11/21/23 Status: Ordered aspirin 81 mg oral delayed release tablet 81 mg, By Mouth, Daily, Refills 0, Maintenance, 11/15/23 13:46:00 EST, Partial fill upon patient request if the prescription is for a schedule II opioid drug. Start Date: 11/15/23 Status: Ordered Biktarvy oral tablet 1 tablet, By Mouth, Daily, # 30 tablet, 0 Refills, Maintenance, 11/15/23 11:58:00 EST, Tablet, [facility], Partial fill upon patient request if the prescription is for a schedule II opioid drug., 1 tablet By Mouth Daily, 180.34, cm, 10/26... Start Date: 11/15/23 Status: Ordered busPIRone 10 mg oral tablet 10 mg, 1, tablet, By Mouth, 2 times a day, Total per dosin mg, Maintenance, 10/30/23 10:55:00 EST, Partial fill upon patient request if the prescription is for a schedule II opioid drug. Start Date: 10/30/23 Status: Ordered busPIRone 15 mg oral tablet 1 tablet = 15 mg, By Mouth, 2 times a day, Total per dosin mg, Maintenance, 10/30/23 10:54:00 EST, Partial fill upon patient request if the prescription is for a schedule II opioid drug. Start Date: 10/30/23 Status: Ordered clopidogrel 75 mg oral tablet 75 mg, By Mouth, Daily, Refills 0, Maintenance, 11/15/23 13:46:00 EST, Partial fill upon patient request if the prescription is for a schedule II opioid drug. Start Date: 11/15/23 Status: Ordered cyclobenzaprine 10 mg oral tablet 10 mg, 1, tablet, By Mouth, 3 times a day, PRN, Maintenance, Spasm, 10/30/23 11:06:00 EST, Partial fill upon patient request if the prescription is for a schedule II opioid drug. Start Date: 10/30/23 Status: Ordered DOK sodium 100 mg oral capsule 1 capsule = 100 mg, By Mouth, 2 times a day, PRN as needed for constipation, Maintenance, 10/30/23 11:00:00 EST, Partial fill upon patient request if the prescription is for a schedule II opioid drug. Start Date: 10/30/23 Status: Ordered folic acid 1 mg oral tablet 1 mg, By Mouth, Daily, Refills 0, Maintenance, 11/15/23 13:46:00 EST, Partial fill upon patient request if the prescription is for a schedule II opioid drug. Start Date: 11/15/23 Status: Ordered HYDROmorphone 2 mg oral tablet 4 mg, Tablet, By Mouth, Every 4 hours, For severe breakthrough pain, to use during PT, PRN for Pain, Severe, Routine, 11/12/23 12:35:00 EST Start Date: 11/12/23 Stop Date: 11/16/23 Status: Discontinued HYDROmorphone 4 mg oral tablet 1 tablet = 4 mg, By Mouth, Every 4 hours, PRN Pain , Severe, # 30 tablet, 0 Refills, Maintenance, 11/15/23 14:18:00 EST, Tablet, Partial fill upon patient request if the prescription is for a schedule II opioid drug. Start Date: 11/15/23 Status: Ordered hydrOXYzine pamoate 50 mg oral capsule 1 capsule = 50 mg, By Mouth, Every 6 hours, PRN as needed for anxiety, Maintenance, 10/30/23 11:01:00 EST, Partial fill upon patient request if the prescription is for a schedule II opioid drug. Start Date: 10/30/23 Status: Ordered Incruse Ellipta 62.5 mcg/inh inhalation powder 1 puffs, Inhalation, Every 24 hours, Maintenance, 10/30/23 11:51:00 EST, Partial fill upon patient request if the prescription is for a schedule II opioid drug. Start Date: 10/30/23 Status: Ordered melatonin 3 mg oral tablet 1 tablet = 3 mg, By Mouth, Daily at bedtime, PRN as needed for insomnia, Maintenance, 10/30/23 11:05:00 EST, Partial fill upon patient request if the prescription is for a schedule II opioid drug. Start Date: 10/30/23 Status: Ordered metFORMIN 500 mg oral tablet, extended release 1 tablet = 500 mg, By Mouth, Daily, Maintenance, 10/30/23 10:51:00 EST, ER Tablet, Partial fill upon patient request if the prescription is for a schedule II opioid drug. Start Date: 10/30/23 Status: Ordered midodrine 5 mg oral tablet 5 mg, By Mouth, 3 times a day, PRN, as needed for SBP <100, Refills 0, Maintenance, Other, 11/15/23 13:46:00 EST, Partial fill upon patient request if the prescription is for a schedule II opioid drug. Start Date: 11/15/23 Status: Ordered MiraLax oral powder for reconstitution = 17 Gm, By Mouth, Daily, PRN Constipation, Maintenance, 10/30/23 11:00:00 EST, Partial fill upon patient request if the prescription is for a schedule II opioid drug. Start Date: 10/30/23 Status: Ordered Multivit Therapeutic/Minerals Tablet 1 tablet, By Mouth, Daily, 0 Refills, Maintenance, 11/15/23 13:47:00 EST, Tablet, Partial fill uponpatient request if the prescription is for a schedule II opioid drug. Start Date: 11/15/23 Status: Ordered Neurontin 400 mg oral capsule 800 mg, Capsule, By Mouth, 11/15/23 15:00:00 EST Start Date: 11/15/23 Stop Date: 11/15/23 Status: Completed Neurontin 800 mg oral tablet 1 tablet = 800 mg, By Mouth, 3 times a day, Maintenance, 10/30/23 11:51:00 EST, Partial fill upon patient request if the prescription is for a schedule II opioid drug. Start Date: 10/30/23 Status: Ordered Nicotine = 21 mg, Topically, Daily, 0 Refills, Maintenance, 11/15/23 13:47:00 EST, Patch, Partial fill upon patient request if the prescription is for a schedule II opioid drug. Start Date: 11/15/23 Status: Ordered Protonix 40 mg oral delayed release tablet 1 tablet = 40 mg, By Mouth, Daily, Maintenance, 10/30/23 10:56:00 EST Start Date: 10/30/23 Status: Ordered pyridoxine 50 mg oral tablet 50 mg, By Mouth, Daily, Refills 0, Maintenance, 11/15/23 13:47:00 EST, Partial fill upon patient request if the prescription is for a schedule II opioid drug. Start Date: 11/15/23 Status: Ordered senna 187 mg oral tablet 1 tablet = 8.6 mg, By Mouth, 2 times a day, PRN Constipation, 0 Refills, Maintenance, 11/15/23 13:47:00 EST, Tablet, Partial fill upon patient request if the prescription is for a schedule II opioid drug. Start Date: 11/15/23 Status: Ordered SEROquel 300 mg oral tablet 1 tablet = 300 mg, By Mouth, Daily at bedtime, PRN Sleep, 0 Refills, Maintenance, 03/28/23 17:59:00EDT, Partial fill upon patient request if the prescription is for a schedule II opioid drug. Start Date: 03/28/23 Status: Ordered Suboxone 8 mg-2 mg sublingual film 1 film, Sublingual, 3 times a day, # 90 film, 0 Refills, Maintenance, 11/15/23 13:26:00 EST, Film, Partial fill upon patient request if the prescription is for a schedule II opioid drug. Start Date: 11/15/23 Status: Ordered thiamine 100 mg oral tablet 100 mg, By Mouth, Daily, Refills 0, Maintenance, 11/15/23 13:47:00 EST, Partial fill upon patient request if the prescription is for a schedule II opioid drug. Start Date: 11/15/23 Status: Ordered Tylenol 325 mg oral tablet 1 - 2 tablet, By Mouth, Every 4 hours, PRN, Maintenance, Pain , Mild, 10/30/23 11:04:00 EST, Partial fill upon patient request if the prescription is for a schedule II opioid drug. Start Date: 10/30/23 Status: Ordered Wellbutrin SR 150 mg/12 hours oral tablet, extended release 1 tablet = 150 mg, By Mouth, 2 times a day, Maintenance, 10/30/23 10:56:00 EST, Partial fill upon patient request if the prescription is for a schedule II opioid drug. Start Date: 10/30/23 Status: Ordered Problem List Condition Confirmation Course [...] with emphysema Confirmed Active 1Lab done at [facility]- document sent to scanning. Results Orders for Microbiology Reports Name Date Urine Culture (URINE CULTURE) 11/12/23 Blood Culture 11/12/23 Blood Culture #2 11/12/23 Microbiology Reports TEST:Urine Culture STATUS:Auth (Verified) BODY SITE: SOURCE:URINE COLLECTED DATE/TIME:11/12/23 8:50 AM Urine Culture SPECIMEN DESCRIPTION : URINE SPECIAL REQUESTS : NONE CULTURE : 50-100,000 COL/ML ESCHERICHIA COLI This isolate was identified using Maldi-TOF system These AST results were performed on the Vitek 2 ID and AST system REPORT STATUS : FINAL 11/14/2023 ORGANISM 50-100,000 COL/ML ESCHERICHIA COLI This isolate was identified using Maldi-TOF system These AST results were performed on the Vitek 2 ID and AST system METHOD MIN. INHIB. CONC. (MCG/ML) AMPICILLIN SUSCEPTIBLE AMPICILLIN/SULBACTAM SUSCEPTIBLE CEFAZOLIN SUSCEPTIBLE CEFEPIME SUSCEPTIBLE CEFTRIAXONE SUSCEPTIBLE CIPROFLOXACIN SUSCEPTIBLE ERTAPENEM SUSCEPTIBLE GENTAMICIN SUSCEPTIBLE LEVOFLOXACIN SUSCEPTIBLE NITROFURANTOIN SUSCEPTIBLE PIPERACILLIN/TAZOBAC SUSCEPTIBLE TRIMETH/SULFAMETHOX RESISTANT TEST:Blood Culture STATUS:Auth (Verified) BODY SITE: SOURCE:Blood COLLECTED DATE/TIME:11/12/23 1:22 AM Blood Culture SPECIMEN DESCRIPTION : BLOOD NONE SPECIAL REQUESTS : CRITICAL VALUE CALLED AND VERIFIED BY READBACK FOR: GRAM NEGATIVE RODS AND PCR RESULT CALLED TO [id number] [email or web address] [id number] CULTURE : ESCHERICHIA COLI FOR SUSCEPTIBILITY RESULT REFER TO BLOOD CULTURE Escherichia coli was identified by multiplex PCR. REPORT STATUS : FINAL 11/14/2023 TEST:Blood Culture, Second Order STATUS:Auth (Verified) BODY SITE: SOURCE:Blood COLLECTED DATE/TIME:11/12/23 1:22 AM Blood Culture, Second Order SPECIMEN DESCRIPTION : BLOOD NONE SPECIAL REQUESTS : NONE CULTURE : ESCHERICHIA COLI This isolate was identified using Maldi-TOF system These AST results were performed on the Vitek 2 ID and AST system REPORT STATUS : FINAL 11/14/2023 ORGANISM ESCHERICHIA COLI This isolate was identified using Maldi-TOF system These AST results were performed on the Vitek 2 ID and AST system METHOD MIN. INHIB. CONC. (MCG/ML) AMOXICILLIN/CLAVULAN SUSCEPTIBLE CEFAZOLIN SUSCEPTIBLE AMPICILLIN SUSCEPTIBLE AMPICILLIN/SULBACTAM SUSCEPTIBLE CEFEPIME SUSCEPTIBLE CEFTRIAXONE SUSCEPTIBLE CIPROFLOXACIN SUSCEPTIBLE ERTAPENEM SUSCEPTIBLE GENTAMICIN SUSCEPTIBLE LEVOFLOXACIN SUSCEPTIBLE PIPERACILLIN/TAZOBAC SUSCEPTIBLE TRIMETH/SULFAMETHOX RESISTANT Radiology Reports (Most Recent Ten) * Exam Date Time Procedure Performing Provider Status 11/13/23 9:12 PM US Doppler Ext Lower Venous Left Kaykay Mcguire; Auth (Verified) Notes: (US Doppler Ext Lower Venous Left) Reason For Exam: Swelling Extremities RESULT: US Doppler Ext Lower Venous Left US Doppler Ext Lower Venous Left Reason: Swelling Extremities; Clinical Question(s): Thrombus COMPARISON: None IMAGING TECHNIQUE: Ultrasound of the veins from the groin through the calf was performed using grayscale, color, and spectral Doppler ultrasound assessing for complete compressibility and normal flowcharacteristics. FINDINGS: Common femoral vein: Patent. No thrombosis. Femoral vein: Patent. Popliteal vein: Patent. No thrombosis. Gastrocnemius veins: The visualized portions are patent without evidence of thrombosis. Peroneal veins: The visualized portions are patent without evidence of thrombosis. Posterior tibial veins: The visualized portions are patent without evidence of thrombosis. Contralateral common femoral vein: Patent. No thrombosis. OTHER FINDINGS: IMPRESSION: No evidence of deep venous thrombosis. WSN: [id number] Ordering Physician: Meka Crowe Dictated By: Yong Rocha MD Dictated Date/Time: 11/13/23 10:59 p Reviewed By: Yong Rocha MD Signed By: Yong Rocha MD Signed Date/Time: 11/13/23 10:59 pm Transcribed By: ATUL Transcribed Date/Time: 11/13/23 10:58 pm * Exam Date Time Procedure Performing Provider Status 11/12/23 2:08 PM Chest 2 Views Frontal and Lat Ata Ambrose; Auth (Verified) Notes: (Chest 2 Views Frontal and Lat) Reason For Exam: Fever RESULT: Chest 2 Views Frontal and Lat Chest 2 Views Frontal and Lat Reason: Fever; Clinical Question(s): Pneumonia COMPARISON: 10/30/2023. FINDINGS: LINES AND TUBES: None. LUNGS AND PLEURA: Clear lungs. Normal pulmonary vascularity. No pleural effusion. No pneumothorax. HEART, MEDIASTINUM AND KRYSTAL: Heart is normal in size. Normal mediastinal and hilar contour. BONES AND SOFT TISSUES: No acute abnormality. IMPRESSION: No acute abnormality. WSN: [id number] Ordering Physician: Meka Crowe Dictated By: Georgia Mims MD Dictated Date/Time: 11/12/23 2:10 pm Reviewed By: Georgia Mims MD Signed By: Georgia Mims MD Signed Date/Time: 11/12/23 2:10 pm Transcribed By: ATUL Transcribed Date/Time: 11/12/23 2:09 pm * Exam Date Time Procedure Performing Provider Status 11/05/23 8:32 PM Pelvis 1 or 2 Views Kaycee Braswell; Auth (Verified) Notes: (Pelvis 1 or 2 Views) Reason For Exam: Eval for change in fracture;Pain RESULT: Pelvis 1 or 2 Views Pelvis 1 or 2 Views Reason: Pain; Eval for change in fracture; Clinical Question(s): Position Fixation COMPARISON: 10/31/2023 FINDINGS: Bilateral total hip arthroplasties. No significant change in periprosthetic proximal left femoral fracture with minimal displacement. No evidence of sclerosis or bridging to indicate healing. No new fractures. IMPRESSION: No significant change in bilateral hip arthroplasties and proximal left femoral periprosthetic fracture. I have personally reviewed the images and I agree with this report. WSN: [id number] Ordering Physician: Gibran Ramirez Dictated By: Aidan Thornton MD Dictated Date/Time: 11/05/23 8:59 pm Reviewed By: Christopher Gross MD Signed By: Christopher Gross MD Signed Date/Time: 11/05/23 9:04 pm Transcribed By: ATUL Transcribed Date/Time: 11/05/23 8:55 pm * Exam Date Time Procedure Performing Provider Status 11/01/23 6:43 PM MRI Brain W/O Contrast Rosina Messina; Jackie (Verified) Notes: (MRI Brain W/O Contrast) Reason For Exam: expressive aphasia, LLE weakness;Other: RESULT: MRI Brain W/O Contrast MRI Brain W/O Contrast INDICATION: Reason: Other:; expressive aphasia, LLE weakness; Clinical Question(s): Other:; stroke LVO; Order Comment: Please see Reference Text for complete list of contraindications Other: TECHNIQUE: MRI of the brain was performed without contrast utilizing sagittal T1, axial T2, axial FLAIR, axial SWAN, and axial DWI sequences. COMPARISON: CT of 10/30/2023 FINDINGS: BRAIN and EXTRA-AXIAL SPACES: The midline structures, including sella, corpus callosum, and craniocervical junction, are unremarkable. There is no mass effect, midline shift, or effacement of the basal cisterns. There is a punctate focus of questionable restricted diffusion in the right posterior lateral frontal cortex (image 6 of series 3) which could be artifactual as no abnormalities seen in the other sequences. Alternatively, it could represent a punctate area of ischemia. There is no evidence of intracranial hemorrhage on susceptibility sensitive sequence. Moderate patchy foci of T2 prolongation are seen in the white matter. Ventricles, cisterns, and sulci are normal in size and configuration, without hydrocephalus. No abnormal extra-axial fluid collections are seen. Meningeal surfaces are normal. Major intracranial flow voids are present. EXTRACRANIAL SOFT TISSUES: There is a left lens replacement. The right globe is normal. Moderate mucosal thickening of the bilateral maxillary sinuses and mild patchy mucosal thickening of the remaining paranasal sinuses is noted. The mastoid air cells are clear. BONES: Marrow signal is preserved. IMPRESSION: 1. Punctate focus of questionable abnormal effusion in the lateral posterior right frontal cortex which could be artifactual or may represent punctate focus of ischemia. Otherwise, no mass, hemorrhage, or other acute intracranial abnormality. 2. Moderate T2/FLAIR hyperintense foci in the white matter, nonspecific but most likely reflecting chronic small vessel disease. Clinical correlation is advised. An actionable message ([place]) has been communicated via the [employer] system on 11/02/2023 7:47 AM, Message ID [id number]. WSN: [id number] Ordering Physician: Jena Owusu Dictated By: Angie Morgan MD Dictated Date/Time: 11/02/23 7:47 am Reviewed By: Angie Morgan MD Signed By: Angie Morgan MD Signed Date/Time: 11/02/23 7:47 am Transcribed By: ATUL Transcribed Date/Time: 11/02/23 7:41 am * Exam Date Time Procedure Performing Provider Status 10/31/23 5:21 PM US Liver Mey Messer; Jackie (Ve rified) Notes: (US Liver) Reason For Exam: Transaminitis with hx of untreated hepC;Other: RESULT: US Liver US Liver Reason: Other:; Transaminitis with hx of untreated hepC; Clinical Question(s): Cirrhosis COMPARISON: 10/30/2023 CT, 03/30/2023 MRI. IMAGING TECHNIQUE: Grayscale and color Doppler ultrasound examination of the liver. FINDINGS: Liver: Coarse hepatic echotexture. No suspicious lesion. Nodular hepatic contour. Main portal vein patent with normal hepatopetal direction of flow. Biliary Tree: No intrahepatic or extrahepatic bile duct dilation is identified. Common duct: 0.3 cm. IMPRESSION: Coarse nodular hepatic echotexture suggestive of cirrhosis. No suspicious lesion. WSN: [id number] Ordering Physician: Vandana Watson Dictated By: Rosina Perez MD Dictated Date/Time: 10/31/23 8:49 pm Reviewed By: Rosina Perez MD Signed By: Rosina Perez MD Signed Date/Time: 10/31/23 8:49 pm Transcribed By: ATUL Transcribed Date/Time: 10/31/23 8:47 pm * Exam Date Time Procedure Performing Provider Status 10/31/23 10:36 AM XR Hip w/Pelvis 2-3 View Left Akash , O juliana; Auth (Verified) Notes: (XR Hip w/Pelvis 2-3 View Left) Reason For Exam: Pain RESULT: XR Hip w/Pelvis 2-3 View Left XR Hip w/Pelvis 2-3 View Left Reason: Pain; Clinical Question(s): Fracture COMPARISON: Left femur radiographs of the same date. FINDINGS: Status post remote bilateral total hip arthroplasty. Periprosthetic fracture of the proximal left femur involving the lateral no fragment displacement. No other fracture or dislocation is present. Bone mineralization is normal. Intertrochanteric region SI joints and the visualized portion of the lower lumbar spine are unremarkable. Normal soft tissues. IMPRESSION: Nondisplaced periprosthetic fracture of the lateral intertrochanteric region of the left femur. No other acute abnormality. Remote bilateral total hip arthroplasty. Findings previously communicated to Vandana Watson M.D. by text message. WSN: [id number] Ordering Physician: Vandana Watson Dictated By: Miguel Angel Yates MD Dictated Date/Time: 10/31/23 10:55 a Reviewed By: Miguel Angel Yates MD Signed By: Miguel Angel Yates MD Signed Date/Time: 10/31/23 10:55 am Transcribed By: ATUL Transcribed Date/Time: 10/31/23 10:53 am * Exam Date Time Procedure Performing Provider Status 10/31/23 10:36 AM XR Femur 2 Views Left Anne Bustos; [facility] (Verified) Notes: (XR Femur 2 Views Left) Reason For Exam: Pain RESULT: Femur 2 Views Left Femur 2 Views Left, 2 views Reason: Pain; Clinical Question(s): Fracture COMPARISON: None. FINDINGS: Status post remote left total hip arthroplasty. There is a periprosthetic fracture in the lateral intertrochanteric region without appreciable fragment displacement. No other fracture or dislocation is present. Bone mineralization is normal. The left knee joint is unremarkable. Normal soft tissues. IMPRESSION: Periprosthetic fracture in the lateral intertrochanteric region of the left femur, without fragmentdisplacement. Status post remote left total hip arthroplasty. Findings were communicated to Vandana Watson M.D. by text message at 10:53 AM. WSN: [id number] Ordering Physician: Vandana Watson Dictated By: Miguel Angel Yates MD Dictated Date/Time: 10/31/23 10:53 a Reviewed By: Miguel Angel Yates MD Signed By: Miguel Angel Yates MD Signed Date/Time: 10/31/23 10:53 am Transcribed By: ATUL Transcribed Date/Time: 10/31/23 10:48 am * Exam Date Time Procedure Performing Provider Status 10/30/23 5:[address] Angio Neck Hyperacute Stroke Araceli House; Auth (Verified) Notes: (CT Angio Neck Hyperacute Stroke) Reason For Exam: Aneurysm, neck vessel(s);Other: RESULT: CT Angio Neck Hyperacute Stroke CT Angio Head Hyperacute Stroke, CT Angio Neck Hyperacute Stroke Reason: Other:; Stroke; Clinical Question(s): Other:; Hematoma Aneurysm / Other: TECHNIQUE: CT angiogram of the head and neck was performed after bolus administration of intravenous contrast. 100 mL of Omnipaque 300 was administered intravenously. Coronal and sagittal MIP reformatted images were obtained. Additional 3-D images were created on a separate workstation under concurrent supervision by the attending radiologist. All stenoses are measured using NASCET criteria. Weight-based protocol using automatic tube modulation was used to optimize exposure parameters. RADIATION DOSE PARAMETERS: CTDIvol Body: 14.50 mGy, DLP Body: 1737 mGy*cm. COMPARISON: Noncontrast CT head performed concurrently. FINDINGS: There is a 3 vessel arch. Mural calcified and noncalcified atherosclerotic plaques are seen along the visualized aortic arch and the supraaortic proximal great neck vessels. No hemodynamically significant stenosis. The right common carotid artery is normal in caliber. The right carotid bulb has mild mural calcifications extending to the right proximal internal carotid artery. The right ICA origin shows 90% stenosis by NASCET criteria. The left common carotid artery is normal in caliber. The left carotid bulb has mild mural calcifications extending to the left proximal internal carotid artery. The left proximal ICA shows 50% stenosis by NASCET criteria. Right vertebral artery: Slightly dominant. Patent without stenosis. Left vertebral artery: Patent without stenosis. Cervical spine: No acute pathology. Mild cervical spondylosis. Soft tissues and lung apices: The visualized upper lungs show diffuse emphysematous changes, worse on the right. Mild dependent atelectasis bilaterally. Bilateral thyroid lobes are normal. There is no definite abnormality throughout the soft tissue neck. [place]: Concurrent CT of head showed no acute pathology. Generalized volume loss and bilateral periventricular hypodensities are noted. Status post left lens extraction. Mucosal thickening is seen maxillary sinuses. The right maxillary sinus contains a small mucus retention cyst. Bilateral internal carotid arteries at the skull base have multiple mural calcifications. No definite stenosis is seen. Bilateral posterior communicating arteries are not visualized. No posterior communicating artery aneurysm is seen. Bilateral ACAs, MCAs and their branches are patent. No stenosis or vessel cut off is seen. No definite aneurysm is noted. Bilateral intracranial vertebral arteries show no definite stenosis. The vertebrobasilar junction is normal. The basilar artery is slightly tortuous. No stenosis or dissection is seen. There is no basilar tip aneurysm. Bilateral collar turner operator and their branches are patent. The superior sagittal sinuses, the straight sinus, bilateral transverse and sigmoid sinuses: Patentwithout dural sinus thrombosis. IMPRESSION: No cutoff or high-grade stenosis of the major branches of the intracranial arteries. No aneurysm, stenosis, or vascular malformations present. The right internal carotid artery origin has 90% stenosis by NASCET criteria. The left internal carotid artery origin has 50% stenosis by NASCET criteria. The right cervical vertebral artery shows no significant stenosis. The left cervical vertebral artery shows no significant stenosis. REFERENCE: NASCET Criteria: The degree of internal carotid stenosis is based on NASCET Criteria: Normal: No stenosis Mild: Less than 50% stenosis Moderate: 50-69% stenosis Severe: 70-99% stenosis Total occlusion: No detectable patent lumen. The preliminary reports were given by the [facility]. WSN: [id number] Ordering Physician: Jena Owusu Dictated By: Osbaldo Long MD Dictated Date/Time: 10/30/23 10:50 a Reviewed By: Osbaldo Long MD Signed By: Osbaldo Long MD Signed Date/Time: 10/30/23 10:50 am Transcribed By: ATUL Transcribed Date/Time: 10/30/23 8:44 am * Exam Date Time Procedure Performing Provider Status 10/30/23 5:[address] Angio Head Hyperacute Stroke Araceli House; Auth (Verified) Notes: (CT Angio Head Hyperacute Stroke) Reason For Exam: Stroke;Other: RESULT: CT Angio Head Hyperacute Stroke CT Angio Head Hyperacute Stroke, CT Angio Neck Hyperacute Stroke Reason: Other:; Stroke; Clinical Question(s): Other:; Hematoma Aneurysm / Other: TECHNIQUE: CT angiogram of the head and neck was performed after bolus administration of intravenous contrast. 100 mL of Omnipaque 300 was administered intravenously. Coronal and sagittal MIP reformatted images were obtained. Additional 3-D images were created on a separate workstation under concurrent supervision by the attending radiologist. All stenoses are measured using NASCET criteria. Weight-based protocol using automatic tube modulation was used to optimize exposure parameters. RADIATION DOSE PARAMETERS: CTDIvol Body: 14.50 mGy, DLP Body: 1737 mGy*cm. COMPARISON: Noncontrast CT head performed concurrently. FINDINGS: There is a 3 vessel arch. Mural calcified and noncalcified atherosclerotic plaques are seen along the visualized aortic arch and the supraaortic proximal great neck vessels. No hemodynamically significant stenosis. The right common carotid artery is normal in caliber. The right carotid bulb has mild mural calcifications extending to the right proximal internal carotid artery. The right ICA origin shows 90% stenosis by NASCET criteria. The left common carotid artery is normal in caliber. The left carotid bulb has mild mural calcifications extending to the left proximal internal carotid artery. The left proximal ICA shows 50% stenosis by NASCET criteria. Right vertebral artery: Slightly dominant. Patent without stenosis. Left vertebral artery: Patent without stenosis. Cervical spine: No acute pathology. Mild cervical spondylosis. Soft tissues and lung apices: The visualized upper lungs show diffuse emphysematous changes, worse on the right. Mild dependent atelectasis bilaterally. Bilateral thyroid lobes are normal. There is no definite abnormality throughout the soft tissue neck. [place]: Concurrent CT of head showed no acute pathology. Generalized volume loss and bilateral periventricular hypodensities are noted. Status post left lens extraction. Mucosal thickening is seen maxillary sinuses. The right maxillary sinus contains a small mucus retention cyst. Bilateral internal carotid arteries at the skull base have multiple mural calcifications. No definite stenosis is seen. Bilateral posterior communicating arteries are not visualized. No posterior communicating artery aneurysm is seen. Bilateral ACAs, MCAs and their branches are patent. No stenosis or vessel cut off is seen. No definite aneurysm is noted. Bilateral intracranial vertebral arteries show no definite stenosis. The vertebrobasilar junction is normal. The basilar artery is slightly tortuous. No stenosis or dissection is seen. There is no basilar tip aneurysm. Bilateral collar turner operator and their branches are patent. The superior sagittal sinuses, the straight sinus, bilateral transverse and sigmoid sinuses: Patentwithout dural sinus thrombosis. IMPRESSION: No cutoff or high-grade stenosis of the major branches of the intracranial arteries. No aneurysm, stenosis, or vascular malformations present. The right internal carotid artery origin has 90% stenosis by NASCET criteria. The left internal carotid artery origin has 50% stenosis by NASCET criteria. The right cervical vertebral artery shows no significant stenosis. The left cervical vertebral artery shows no significant stenosis. REFERENCE: NASCET Criteria: The degree of internal carotid stenosis is based on NASCET Criteria: Normal: No stenosis Mild: Less than 50% stenosis Moderate: 50-69% stenosis Severe: 70-99% stenosis Total occlusion: No detectable patent lumen. The preliminary reports were given by the [facility]. WSN: [id number] Ordering Physician: Jena Owusu Dictated By: Osbaldo oLng MD Dictated Date/Time: 10/30/23 10:50 a Reviewed By: Osbaldo Long MD Signed By: Osbaldo Long MD Signed Date/Time: 10/30/23 10:50 am Transcribed By: ATUL Transcribed Date/Time: 10/30/23 8:44 am * Exam Date Time Procedure Performing Provider Status 10/30/23 5:40 AM Chest Portable Chelly Ornelas; Auth (Verified) Notes: (Chest Portable) Reason For Exam: Stroke;Other: RESULT: Chest Portable Examination: Portable chest performed on 10/30/23. History: Word finding difficulties. Findings: A frontal view of the chest is compared to a prior study dated 05/14/2023. The cardiac and mediastinal silhouettes are within normal limits. The lungs are clear. The osseous and soft tissue structures are unremarkable. IMPRESSION: There is no acute cardiopulmonary disease. WSN: [id number] Ordering Physician: Jena Owusu Dictated By: Janelle Whitaker MD Dictated Date/Time: 10/30/23 7:20 am Reviewed By: Janelle Whitaker MD Signed By: Janelle Whitaker MD Signed Date/Time: 10/30/23 7:20 am Transcribed By: ATUL Transcribed Date/Time: 10/30/23 7:19 am Vital Signs Most recent to oldest [Reference Range]: 1 2 3 Height 180.34 cm (11/15/23 1:02 PM) 180.34 cm (11/11/23 3:43 PM) 180.34 cm (11/11/23 12:53 PM) Weight 82.1 kg (11/06/23 12:10 PM) 95.7 kg (11/03/23 3:23 AM) 95.2 kg (10/31/23 11:30 AM) Oxygen Saturation [94-100 %] 95 % (11/15/23 1:02 PM) 100 % (11/15/23 11:00 AM) 97 % (11/15/23 7:00 AM) Pulse Rate [55-90 bpm] 75 bpm (11/15/23 1:02 PM) 91 bpm *H* (11/15/23 11:00 AM) 57 bpm (11/15/23 7:00 AM) Body Mass Index [18.5-24.99 kg/m2] 29.27 kg/m2 *H* (10/31/23 11:30 AM) Blood Pressure [90-138/55-84 mm Hg] 110/62mm Hg (11/15/23 1:02 PM) 110/67mm Hg (11/15/23 11:00 AM) 113/79mm Hg (11/15/23 7:00 AM) Respiratory Rate [16-30 br/min] 18 br/min (11/15/23 2:21 PM) 18 br/min (11/15/23 2:18 PM) 18 br/min (11/15/23 1:02 PM) Temperature [96.8-100.4 DegF] 97.4 DegF (11/15/23 1:02 PM) 97.7 DegF (11/15/23 11:00 AM) 97.5 DegF (11/15/23 7:00 AM) Liters per Minute 3 L/min (11/06/23 8:00 PM) 3 L/min (11/06/23 7:16 PM) 3 L/min (11/06/23 6:35 PM) Mode of Delivery (Oxygen) Room air (11/15/23 1:02 PM) Room air (11/15/23 11:00 AM) Room air (11/15/23 7:00 AM) Blood pressure sites Arm, left (11/15/23 1:02 PM) Arm, left (11/15/23 11:00 AM) Arm, left (11/15/23 7:00 AM) Temperature Route Oral (11/15/23 1:02 PM) Temporal (11/15/23 11:00 AM) Temporal (11/15/23 7:00 AM) Weight Obtained Via Bed scale (11/06/23 12:10 PM) Bed scale (11/03/23 3:23 AM) Bed scale (10/31/23 11:30 AM) Social History Social History Type Response Smoking Status 10 or more cigarette s (1/2 pack or more)/day in last 30 days entered on: 05/14/23 Sex Note * Dee Gates RN: PERFORM Event Display: Discharge/Transfer Note Hospital Authored Date: [id number] Nursing Discharge Note Entered On: 11/15/2023 15:12 EST Performed On: 11/15/2023 15:11 EST by Dee Gates RN Nursing Discharge Note 2 Discharge Time : 11/15/2023 15:10 EST Discharge Level of Care at Discharge : detention facility Discharge Nursing Homes/Rehab Facilities : [facility] Patient Left Unit Via : Ambulance Patient Accompanied Off Unit with : Ambulance/[facility] Personnel Handover Given to Transport Personnel : Yes DC Instructions Provided & Signed by Pt : Yes Patient Understands D/C Instructions : Yes Patient Instructions Discharge Signed : Yes Did Pt have Specialty Bed or Wound Vac : No Dee Gates RN - 11/15/2023 15:11 EST * Starla Chavarria DO: PERFORM, MODIFY, MODIFY, MODIFY, MODIFY, MODIFY, MODIFY, MODIFY, MODIFY, MODIFY, MODIFY, MODIFY, MODIFY, MODIFY, MODIFY, MODIFY, MODIFY, MODIFY, MODIFY, MODIFY, MODIFY, MODIFY Event Display: Discharge/Transfer Note Hospital Authored Date: [id number] Patient: ??HARMAN DAMIAN ? Age:??58 Years?Sex:??Male?:??1965?? Patient Information Discharge Location: S3 Primary Care Physician: Shayy Nielson NP Admit Date/Time: 10/30/23 06:48 Discharge Date: 11/15/23 Discharge Disposition Discharge Disposition: Halfway Facility/Rehab??for less than 30 days Discharge Diagnosis Carotid stenosis, right (I65.21) Vasovagal syndrome (R55) History of intravascular stent placement (Z95.828) Alcohol use disorder in remission (F10.91) Aphasia of unknown origin (R47.01) Asterixis (R27.8) COPD without exacerbation (J44.9) Closed nondisplaced fracture of greater trochanter of left femur (S72.115A) Depression with anxiety (F41.8) Elevated transaminase level (R74.01) Fall (W19.XXXA) GERD (gastroesophageal reflux disease) (K21.9) HIV disease (B20) Hepatic encephalopathy (K76.82) Liver disease (K76.9) Malnutrition (E46) Opioid use disorder in remission (F11.91) Periprosthetic fracture around internal prosthetic left hip joint, initial encounter (M97.02XA) Pre-diabetes (R73.03) Rash (R21) Tobacco use disorder (F17.200) Type 2 diabetes mellitus (E11.9) Word finding difficulty (R47.89) ?? _ Discharge Medications Acetaminophen (Tylenol 325 mg oral tablet)?1 - 2 tablet?By Mouth?Every 4 hours?as needed?Pain , Mild Amoxicillin (amoxicillin 500 mg oral capsule)?1,000?Milligram?By Mouth?3 times a day Aspirin (aspirin 81 mg oral delayed release tablet)?81?Milligram?By Mouth?Daily bictegravir/emtricitabine/tenofovir (Biktarvy oral tablet)?1?tab(s)?By Mouth?Daily Buprenorphine-Naloxone (Suboxone 8 mg-2 mg sublingual film)?1?Film?Sublingual?3 times aday BuPROpion (Wellbutrin SR 150 mg/12 hours oral tablet, extended release)?1?tab(s)?150?Milligram?By Mouth?2 times a day BusPIRone (busPIRone 15 mg oral tablet)?1?tab(s)?15?Milligram?By Mouth?2 times a day?Total per dosin mg BusPIRone (busPIRone 10 mg oral tablet)?10?Milligram?1?tablet?By Mouth?2 times a day?Total per dosin mg Clopidogrel (clopidogrel 75 mg oral tablet)?75?Milligram?By Mouth?Daily Cyclobenzaprine (cyclobenzaprine 10 mg oral tablet)?10?Milligram?1?tablet?By Mouth?3 times a day?as needed?Spasm Docusate (DOK sodium 100 mg oral capsule)?1?capsule?100?Milligram?By Mouth?2 times a day?as needed?as needed for constipation Folic Acid (folic acid 1 mg oral tablet)?1?Milligram?By Mouth?Daily Gabapentin (Neurontin 800 mg oral tablet)?1?tab(s)?800?Milligram?By Mouth?3 timesa day Hydromorphone (HYDROmorphone 2 mg oral tablet)?4?Milligram?By Mouth?Every 4 hours?asneeded?Pain , Severe HydrOXYzine (hydrOXYzine pamoate 50 mg oral capsule)?1?capsule?50?Milligram?By Mouth?Every 6 hours?as needed?as needed for anxiety Melatonin (melatonin 3 mg oral tablet)?1?tab(s)?3?Milligram?By Mouth?Daily at bedtime?as needed?as needed for insomnia Metformin (metFORMIN 500 mg oral tablet, extended release)?1?tab(s)?500?Milligram?ByMouth?Daily Midodrine (midodrine 5 mg oral tablet)?5?Milligram?By Mouth?3 times a day?as needed?as needed for SBP <100?Other Multivitamin With Minerals (Multivit Therapeutic/Minerals Tablet)?1?tab(s)?By Mouth?Daily Nicotine?21?Milligram?Topically?Daily Pantoprazole (Protonix 40 mg oral delayed release tablet)?1?tab(s)?40?Milligram?By Mouth?Daily Polyethylene Glycol 3350 (MiraLax oral powder for reconstitution)?17?gram?By Mouth?Daily?as needed?Constipation Pyridoxine (pyridoxine 50 mg oral tablet)?50?Milligram?By Mouth?Daily Quetiapine (SEROquel 300 mg oral tablet)?1?tab(s)?300?Milligram?By Mouth?Daily atbedtime?as needed?Sleep Senna (senna 187 mg oral tablet)?1?tab(s)?8.6?Milligram?By Mouth?2 times a day?as needed?Constipation Thiamine (thiamine 100 mg oral tablet)?100?Milligram?By Mouth?Daily umeclidinium (Incruse Ellipta 62.5 mcg/inh inhalation powder)?1?puff(s)?Inhalation?Every 24 hours ? Quality Measures Tobacco Use Treatment:?Cessation Medication Prescribed on Discharge:??Active Home Med for Cessation Medication ? Medications Started Amoxicillin (amoxicillin 500 mg oral capsule)?1,000?Milligram?By Mouth?3 times a day Aspirin (aspirin 81 mg oral delayed release tablet)?81?Milligram?By Mouth?Daily Clopidogrel (clopidogrel 75 mg oral tablet)?75?Milligram?By Mouth?Daily Folic Acid (folic acid 1 mg oral tablet)?1?Milligram?By Mouth?Daily Gabapentin (Neurontin 800 mg oral tablet)?1?tab(s)?800?Milligram?By Mouth?3 timesa day Hydromorphone (HYDROmorphone 2 mg oral tablet)?4?Milligram?By Mouth?Every 4 hours?asneeded?Pain , Severe Midodrine (midodrine 5 mg oral tablet)?5?Milligram?By Mouth?3 times a day?as needed?as needed for SBP <100?Other Multivitamin With Minerals (Multivit Therapeutic/Minerals Tablet)?1?tab(s)?By Mouth?Daily Nicotine?21?Milligram?Topically?Daily Pyridoxine (pyridoxine 50 mg oral tablet)?50?Milligram?By Mouth?Daily Senna (senna 187 mg oral tablet)?1?tab(s)?8.6?Milligram?By Mouth?2 times a day?as needed?Constipation Thiamine (thiamine 100 mg oral tablet)?100?Milligram?By Mouth?Daily Medications Discontinued none Doses Changed none Allergies Allergies ?(Active and Proposed Allergies Only) Toradol? (Severity: Unknown severity, Onset: Unknown) ? PCP Follow-Up/Heads-Up Please complete amoxicillin course-end date 11/21 Please recheck electrolytes in one week to reassess sodium. Hospital Course Harman Damian is a 58-year-old man with a past medical history of depression with prior SI, polysubstance use (alcohol, heroin, cocaine, opiates, marijuana, tobacco) opiate use disorder in remission, HIV on ART, COPD, hypertension, prediabetes, chronic back pain, history of bilateral hip replacements who presented from a detention after a mechanical fall followed by dysarthria and encephalopathy.??Initial CT negative; MRI brain??with punctate focus of questionable abnormal focus; Cerebral angio??with ??ELKE 90% stenosis, S/P right ICA stent 11/06.??He was also??found to have left periprosthetic fracture in the lateral intertrochanteric region with conservative management recommended given risks outweighed the benefits.??His course was 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 His course has been further complicated pansusceptible??Ecoli bacteremia for which he is receiving high dose amoxicillin. ?? He is hemodynamically stable and is ready to be discharged to rehab for a total of <30 days ?? E Coli Bacteremia: UTI: Febrile to a Tmax of 101.3 with??leukocytosis of 19,000, patient was started on vancomycin and Zosyn. UA with 3+leukocytes, WBCs and heavy bacteria. Urine culture with 50-100,000 Ecoli. Blood culturenow growing Ecoli, resistant to Bactrim otherwise pansusceptible. ?? Recommendations: -Continue Amoxicillin 1000mg TID for a total of 10 day course (11/12-11/21 ) ?? Hyponatremia: improved SIADH: pt appears euvolemic.??Urine studies indicate SIADH. Is not drinking excessive fluids. sodium improved today to 132. Patient remains asymptomatic. ?? Recommendations: -fluid restriction to 1.5L daily -recheck electrolytes in 1 week ?? Fall (W19.XXXA) L periprosthetic fracture in the lateral intertrochanteric region of femur Likely mechanical in nature as pt able to recall event pretty well. Ortho following??recommending nonsurgical option, to continue working with PT??as benefits of surgery outweigh risks. Hepatic encephalopathy probably contributing to this, but with aphasia, TIA/CVA could have contributed as well ?? Recommendations: - Scheduled Tylenol for pain - hydromorphone??2 mg tabs every 4 hours for severe pain -cyclobenzaprine PRN -gabapentin 800mg TID -bowel regimen ?? Carotid stenosis, right (I65.21):??- s/p stenting on 11/06 Aphasia of unknown origin (R47.01) -resolved Word finding difficulty (R47.89) resolved- ??Subacute, pt reports started 2 mos prior to presentation in regards to word finding difficulty ??However, noted to have aphasia after the fall ??Currently back to baseline without any aphasia ??Given quick recovery, TIA is on the ddx ??MRI brain (11/02) - Punctate focus of questionable abnormal effusion in the lateral posterior rightfrontal cortex which could be artifactual or may represent punctate focus of ischemia. ??The right internal carotid artery origin has 90% stenosis by NASCET criteria. Neuro thinks possible right frontal infarct in the setting of right ICA stenosis - S/p ELKE stent on 11/06 complicated by vasovagal hypotension, now resolve. LDL was 55 on 10/30, chol largely WNL, HDL low at 31. Patient reports feeling much better,??speaking clear sentences,??states he has no difficulty with speech. ?? Recommendations: -??Continue aspirin??81 and 75 mg of Plavix daily - follow-up with Dr. Melo in clinic - goal LDL < 70, A1C < 7, BP < 120/80 ?? Hypotension following ICA Stent -resolved Vasovagal syndrome (R55):?? resolved Patient was hypotensive following ICA stent??placement, received 250 cc bolus??and postop care??with improvement, however on the floor the patient's blood pressure??was persistently low, yang of 68/42,??this slowly improved with??IV fluid resuscitation of 1 L,??ROUGH ROUNDER MACHINE nurse was present to help place a second IV, EKG was done??showing sinus bradycardia??heart rate 54,??patient's temperature was??approximately 97 via axillary??check, he was??passively rewarmed with??warm blankets.?? Blood pressure improving to 119/65.??Right fem access with mild tenderness and no sign of??hematoma.??Possibly vasovagal syndrome,??versus postop changes after ICA stent??opening. Also poor PO intakebeing NPO overnight. ? -Continue midodrine 5 mg TID??(hold for SBP??>100 AND MAP 65 or greater) ?? Malnutrition (E46): ??Patient has notable temporal wasting, thin extremities with a protuberant abdomen has not been eating well, has food insecurity ?? Recommendations: ??? folic acid, pyridoxine, thiamine ?? Alcohol use disorder in remission (F10.91): - ??Patient reports he is abstained from alcohol for the last 7 months, goes to , continue to monitor and support, can consider addiction consult later in hospital course if patient is interested in getting connected to community resources ?? Type 2 diabetes mellitus (E11.9): - ??Hemoglobin A1c on admission 7.4. Home regimen: Metformin ?? recommendations: -resume home metformin ?? Liver disease (K76.9): - Elevated transaminase level (R74.01): - Hepatic encephalopathy (K76.82): - resolved Asterixis (R27.8): -resolved ??Patient noted to have elevated transaminases as well as an elevated ammonia level and dysmetria with asterixis on exam. CT abd/pelvis shows irregular hepatic contour. LFT elevations may be secondary to underlying cirrhosis possibly secondary to history of alcohol use disorder, may be secondary to medication such as his antiretrovirals, his acetaminophen level was undetected on admission and he had no reports of other toxic ingestions. ??Completed couple days of lactulose with good response ?? GERD (gastroesophageal reflux disease) (K21.9): Continue home PPI ?? COPD without exacerbation (J44.9): - Patient reports history of COPD, no oxygen at home, has a prescription for an Incruse inhaler at home has not had recent exacerbation ?? Tobacco use disorder (F17.200): - ??Patient smokes usually 3 to 4 cigarettes up to half pack a day, requests patch ??Plan: Nicotine replacement patch, counseled patient on tobacco cessation ?? HIV disease (B20): - ??On Biktarvy. Appears to have been feeling it consistently. ID pharmacy reviewed and is okay to continue. CD4 count was 207??likely??falsely low per ID. ? Opioid use disorder in remission (F11.91): - ??Prescriber is through [facility] ?Plan:??Continue Suboxone 8???2 3 times daily ?? Depression with anxiety (F41.8): ???Continue home psych regimen including bupropion, BuSpar but only as needed (reduced from home dose), Seroquel 30 mg as needed at bedtime for insomnia, hydroxyzine as needed for anxiety Objective Vital Signs?? Temperature: 97.4 DegF (11/15/23 13:02:00) Temperature Route: Oral (11/15/23 13:02:00) Pulse Rate: 75 bpm (11/15/23 13:02:00) Respiratory Rate: 18 br/min (11/15/23 13:02:00) Systolic Blood Pressure: 110 mm Hg (11/15/23 13:02:00) Diastolic Blood Pressure: 62 mm Hg (11/15/23 13:02:00) Blood pressure sites: Arm, left (11/15/23 13:02:00) Mean Arterial Pressure: 78 mm Hg (11/15/23 13:02:00) Pulse Pressure: 48 mm Hg (11/15/23 13:02:00) Oxygen Saturation: 95 % (11/15/23 13:02:00) Mode of Delivery (Oxygen): Room air (11/15/23 13:02:00) Early Warning Score: 8 (11/15/23 13:05:53) ? Intake/Output? 10/30 06:48 11/15 07:00 11/14 07:00 11/13 07:00 11/12 07:00 ?? 11/15 13:16 11/15 13:16 11/15 06:59 11/14 06:59 11/13 06:59 Intake ?53199 ?0 ? 1020 ? 1560 ?100 Output ?27886 ?600 ? 1725 ? 1875 ?850 Net Total ? -94853 ? -600 ? -705 ? -315 ? -750 ? Urine Count ?7 ?0 ?0 ?1 ?5 ? Precautions No Precautions documented.? Basic ADLs Activity Assistance: Maximum assistance (11/15/23) Ambulatory devices needed: None (11/14/23) Feeding Assistance: Set up (11/14/23) Hygiene: Shaina care, Total, Partial bath (11/13/23) ? . Physical Exam Constitutional: Alert, in no distress. Mental Status: Oriented to person, place and time. Head: Normocephalic. Eyes: Extraocular muscles intact. Neck: Supple, Full range of motion. Respiratory: Clear to auscultation. No wheezing, rales or rhonchi. Cardiovascular: S1 S2 regular. No murmurs, rubs or gallops. Gastrointestinal: Abdomen soft, non-tender, non-distended. Neurologic: Cranial nerves II-XII grossly intact. No focal neurological deficits. Moves all extremities spontaneously. Skin: no rashes or lesions Musculoskeletal: left hip tenderness. Is able to wiggle toes. Psychiatric: Normal mood and affect Patient Education Titles [employer] Patient Education - Understanding Carotid Angioplasty and Stenting?? [employer] Patient Education - Bacteremia, Suspected (Adult)?? [employer] Patient Education - Urinary Tract Infections in Men?? Fluzone Quadrivalent Influenza Vaccine Injectable Suspension?? Follow-Up Appointments Added Follow Up ?Time Frame ?Comments Naga KOHLER, Shayy Barnes?Within two weeks Home Health Face to Face ^[facility] Results Discharge Labs BACTERIOLOGY MRSA PCR Result Negative, MRSA target DNA not detected. ()?? 11/12/2023 16:22 S Aureus ??PCR Result Positive, SA target DNA detected. ()?? 11/12/2023 16:22 ?? BLOOD COUNT & DIFF WBC 8.9 k/mm3 ()?? 11/14/2023 00:12 RBC 3.55 m/mm3 (Low)?? 11/14/2023 00:12 Hgb 11.4 Gm/dL (Low)?? 11/14/2023 00:12 Hct 33.2 % (Low)?? 11/14/2023 00:12 MCV 93.5 femtoliters ()?? 11/14/2023 00:12 MCH 32.1 pg ()?? 11/14/2023 00:12 MCHC 34.3 g/dL ()?? 11/14/2023 00:12 Platelet Count 131 k/mm3 (Low)?? 11/14/2023 00:12 RDW-SD 51.1 femtoliters (High)?? 11/14/2023 00:12 MPV 13.0 femtoliters (High)?? 11/14/2023 00:12 Nucleated RBC (Automated) 0.0 #/100 WBC'S ()?? 11/14/2023 00:12 Abs. NRBC 0.0 k/mm3 ()?? 11/14/2023 00:12 Abs. Neut 11.2 k/mm3 (High)?? 10/31/2023 00:07 Abs. Lymph 2.3 k/mm3 ()?? 10/31/2023 00:07 Abs. [place] 1.2 k/mm3 ()?? 10/31/2023 00:07 Abs. Eo 0.1 k/mm3 ()?? 10/31/2023 00:07 Abs. Baso 0.1 k/mm3 ()?? 10/31/2023 00:07 Neut % 75.3 % ()?? 10/31/2023 00:07 Lymph % 15.6 % ()?? 10/31/2023 00:07 [place] % 7.8 % ()?? 10/31/2023 00:07 Eos % 0.3 % ()?? 10/31/2023 00:07 Baso % 0.5 % ()?? 10/31/2023 00:07 Imm Gran 0.5 % ()?? 10/31/2023 00:07 Abs. Imm Gran 0.1 k/mm3 ()?? 10/31/2023 00:07 ?? CARDIAC High Sensitivity Troponin (HSTnT) 10 ng/L ()?? 10/30/2023 11:43 ? CHEM GENERAL Sodium 132 mmol/L (Low)?? 11/15/2023 00:56 Potassium 3.7 mmol/L ()?? 11/15/2023 00:56 Chloride 100 mmol/L ()?? 11/15/2023 00:56 Bicarbonate Level 21 mmol/L (Low)?? 11/15/2023 00:56 Anion Gap 11 ()?? 11/15/2023 00:56 Glucose Level 113 mg/dL (High)?? 11/15/2023 00:56 Glucose, POC 91 mg/dL ()?? 11/15/2023 06:16 Hemoglobin A1C (Monitoring) 7.4 % (High)?? 10/30/2023 05:04 BUN 34 mg/dL (High)?? 11/15/2023 00:56 Creatinine-Blood 0.8 mg/dL ()?? 11/15/2023 00:56 Estimated GFR Creatinine 102 ML/MIN/1.73 M2 ()?? 11/15/2023 00:56 Osmolality 277 mOs/kg (Low)?? 11/11/2023 08:37 Calcium 8.0 mg/dL (Low)?? 11/15/2023 00:56 Calcium, Ionized pH Corrected 1.16 mmol/L ()?? 10/31/2023 00:07 Phosphorus 3.8 mg/dL ()?? 11/11/2023 08:37 Magnesium 1.9 mg/dL ()?? 11/11/2023 08:37 Protein, Total 7.7 Gm/dL ()?? 11/01/2023 04:52 Albumin 3.3 Gm/dL (Low)?? 11/01/2023 04:52 AG Ratio 0.8 ()?? 11/01/2023 04:52 Alkaline Phosphatase 281 units/L (High)?? 11/01/2023 04:52 AST (SGOT) 73 units/L (High)?? 11/01/2023 04:52 ALT (SGPT) 45 units/L (High)?? 11/01/2023 04:52 Bilirubin, Total 2.1 mg/dL (High)?? 11/01/2023 04:52 Lactate 1.7 mmol/L ()?? 11/06/2023 15:43 ?? COAG POC ACT-LR 165.0 seconds ()?? 11/06/2023 11:15 ? ENDOCRINE/TUMOR MARKER TSH 3.96 uIU/mL ()?? 10/30/2023 05:05 ? FLOW CYTOMETRY/IMMUNOPHENOTYPING Cd4/Cd8 Ratio 0.45 (Low)?? 11/08/2023 02:36 CD45 Lymph Abs Count, Flow 999 cells/mm3 ()?? 11/08/2023 02:36 % CD4 (Trezevant T Cells) 21 % (Low)?? 11/08/2023 02:36 Abs CD4 (Trezevant T Cells) 207 cells/mm3 (Low)?? 11/08/2023 02:36 % CD8 (Suppressor T Cells) 46 % (High)?? 11/08/2023 02:36 Abs CD8 (Suppressor T Cells) 456 cells/mm3 ()?? 11/08/2023 02:36 % CD3 (T Cells) 65 % ()?? 11/08/2023 02:36 Abs CD3 (T Cells) 648 cells/mm3 (Low)?? 11/08/2023 02:36 % CD19 (B Cells) 7 % ()?? 11/08/2023 02:36 Abs CD19 (B Cells) 74 cells/mm3 (Low)?? 11/08/2023 02:36 % CD16+CD56 (NK Cells) 27 % (High)?? 11/08/2023 02:36 Abs CD16+CD56 (NK Cells) 268 cells/mm3 ()?? 11/08/2023 02:36 ?? HEME OTHER Hold Lavender Top SPECIMEN DISCARDED AFTER 24 HOURS. ()?? 11/15/2023 00:56 ? LIPID STUDIES Cholesterol 113 mg/dL ()?? 10/30/2023 05:05 Triglycerides 137 mg/dL ()?? 10/30/2023 05:05 HDL Cholesterol 31 mg/dL (Low)?? 10/30/2023 05:05 LDL Cholesterol 55 mg/dL ()?? 10/30/2023 05:05 Non HDL Cholesterol 82 mg/dL ()?? 10/30/2023 05:05 ? MISC. CHEMISTRY Ammonia, Venous 68 ??mole/L (High)?? 10/30/2023 13:05 ? SEROLOGY INF DISEASE Anti Hepatitis A IgM NEGATIVE (N)?? 10/31/2023 00:07 Hepatitis B Surface Antigen NEGATIVE (N)?? 10/31/2023 00:07 Hepatitis B Core Ab, Total NEGATIVE (N)?? 10/31/2023 00:07 Hepatitis C Ab Reactive by screening EIA. (Abnormal)?? 10/31/2023 00:07 Anti-HBS Quant 12.07 mIU/mL ()?? 10/31/2023 00:07 Anti-HAV IgG POSITIVE ()?? 10/31/2023 00:07 ?? TOXICOLOGY/TDM Ethanol, Serum or Plasma NONE DETECTED mg/dL ()?? 10/30/2023 05:05 Salicylate Level <0.3 mg/dL (Low)?? 10/30/2023 05:05 Barbiturate Screen, Urine NONE DETECTED ()?? 10/30/2023 10:46 Cannabinoid Screen, Urine NONE DETECTED ()?? 10/30/2023 10:46 Cocaine Metabolite Screen, Urine NONE DETECTED ()?? 10/30/2023 10:46 Benzodiazepine Screen, Urine NONE DETECTED ()?? 10/30/2023 10:46 Amphetamine Screen, Urine NONE DETECTED ()?? 10/30/2023 10:46 Opiate Screen, Urine NONE DETECTED ()?? 10/30/2023 10:46 Acetaminophen Level <5 mg/L (Low)?? 10/30/2023 05:05 ? UA/URINALYSIS Appear/Color, Urine YELLOW ()?? 11/12/2023 08:50 Specific Bowman, Urine 1.020 ()?? 11/12/2023 08:50 pH, Urine 6.5 ()?? 11/12/2023 08:50 Albumin, Urine 1+ (Abnormal)?? 11/12/2023 08:50 Glucose, Urine NEGATIVE ()?? 11/12/2023 08:50 Ketones, Urine NEGATIVE ()?? 11/12/2023 08:50 Bilirubin, Urine NEGATIVE ()?? 11/12/2023 08:50 Hemoglobin, Urine 3+ (Abnormal)?? 11/12/2023 08:50 Nitrite, Urine NEGATIVE ()?? 11/12/2023 08:50 Leukocyte, Urine 3+ (Abnormal)?? 11/12/2023 08:50 Urobilinogen 2 mg/dL (Abnormal)?? 11/12/2023 08:50 WBC's, Urine >182 /HPF (High)?? 11/12/2023 08:50 RBC's, Urine >182 /HPF (High)?? 11/12/2023 08:50 Bacteria HEAVY HPF (Abnormal)?? 11/12/2023 08:50 Squamous Epith <1 /HPF ()?? 10/30/2023 10:46 Hyaline Cast 1 LPF ()?? 10/30/2023 10:46 Hold Urine Culture Testing available 48 hours from time of collection. ()?? 11/12/2023 08:50 ? URINE OTHER Sodium, Urine Random 33 mmol/L ()?? 11/12/2023 08:50 Osmolality, Urine Random 513 mOsm/kg ()?? 11/12/2023 08:50 ?? VIROLOGY Hepatitis C, RNA PCR, Quantitative [id number] IU/mL ()?? 11/02/2023 08:41 HCV Quant Log Result 6.08 log IU/mL ()?? 11/02/2023 08:41 Influenza A PCR NEGATIVE ()?? 11/12/2023 03:30 Influenza B PCR NEGATIVE ()?? 11/12/2023 03:30 RSV PCR NEGATIVE ()?? 11/12/2023 03:30 COVID-19 PCR Specimen Source NASAL ()?? 11/12/2023 03:30 COVID-19 PCR Result NEGATIVE ()?? 11/12/2023 03:30 ? Discussed case with attending physician, Dr. David Chavarria, PGY 4 Med-Peds 40??minutes spent on discharge * Zeenat Ratliff RN: PERFORM, SIGN, VERIFY Event Display: Case Management Discharge Plan Authored Date: Patient: HARMAN DAMIAN Age: 58 years Sex: Male : 1965 Associated Diagnoses: None Author: Zeenat Ratliff RN Discharge Plan Case Management Discharge Plan : Case Management Discharge Plan Data 11/15/2023 15:05 EST Discharge Level of Care at Discharge detention facility Discharge Nursing Homes/Rehab Facilities [facility] Discharge Transportation Arranged [facility] [address] [place] [phone] Discharge Arranged Transport Date/Time 11/15/2023 14:00 Mode of Transportation Arranged Ambulance Name of Agency #1 [facility] Comments #1 An ambulance has been arranged to transport patient today @ 2pm Name of Person Notified of Transfer Patient * Dee Gates RN: PERFORM, MODIFY Event Display: Patient Education/Instruction Authored Date: Inpatient Adult Discharge Instructions. [address] [id number] Name: HARMAN DAMIAN : 1965?? Visit: 10/30/2023 06:48?? Current Date: 11/15/2023 13:53 ?? Account: [id number]?? Inpatient Adult Discharge Instructions We would like [...] and their families. Surveys are administered by [employer]. ?? If further treatment with your primary care physician or another doctor is recommended, it is important for you to keep the appointment. Call your primary care physician or return to the Emergency Department immediately if your condition worsens, fails to improve, or new symptoms develop. If you need to find a doctor, you can call [facility] Link for a referral at [phone] or toll free at [phone]) or log in to [email or web address] ?? [facility], in keeping with [facility] guidance, no longer requires face masks for staff, patientsor visitors in most situations. Similiar to time spent indoors at other locations, there is the chance that you were exposed to repiratory viruses during your time with us (such as flu or COVID-19). If you develop symptoms concerning for a viral respiratory infection, please seek testing (and treatment if indicated) from your medical provider or home test kit. ?? You can view and manage your care through the patient portal or by using a health care nba of your choosing. [employer] is a website that allows you to securely view your medical information including your hospital discharge summary, office visit summaries, medications and follow-up visits. You can also request appointments, renew medications, and request access to your medical information using a health care nba of your choosing, or just ask a question. You can enroll at [email or web address] or register during your next office visit. You have been discharged from [facility], Patient Care Unit: S3??. If you have any questions regarding these instructions, including results of studies pending, afteryou leave, please call us and we will be happy to assist you 17/04. [facility] Your Care Team Attending Physician Yassine Hernandez MD?? Consulting Providers Yassine Hernandez MD?? Discharging Providers Starla Chavarria DO Reason for Your Visit aphasia?? Your Diagnosis Carotid stenosis, right Vasovagal syndrome History of intravascular stent placement Alcohol use disorder in remission Altered mental status Aphasia of unknown origin Asterixis Closed nondisplaced fracture of greater trochanter of left femur COPD without exacerbation Depression with anxiety Elevated transaminase level Fall GERD (gastroesophageal reflux disease) Hepatic encephalopathy HIV disease Liver disease Malnutrition Opioid use disorder in remission Periprosthetic fracture around internal prosthetic left hip joint, initial encounter Pre-diabetes Rash Tobacco use disorder Type 2 diabetes mellitus Word finding difficulty Tests Performed Below is a partial list of the tests performed during your hospitalization. You may have had other tests and procedures not included in this list. Please discuss all test results with your provider. Acetaminophen Level Alcohol Level Ammonia Venous Amphetamine Urine Screen Aspirin Level Barbiturate Urine Screen Basic Metabolic Panel Benzodiazepine Urine Screen BUN Cannabinoid Urine Screen CBC CBC w/ Differential Cocaine Urine Screen Comprehensive Metabolic Panel COVID-19, RSV, and Flu A/B, Rapid PCR Creatinine Electrolytes GLUCOSE POC HEMOGLOBIN A1C Hepatitis A Ab IgM Hepatitis A IgG Hepatitis B Core Ab Hepatitis B Surface Antibody, Quant Hepatitis B Surface Antigen Hepatitis C Ab Hepatitis C RNA PCR Quant High??Sensitivity??Troponin T HOLD LAVENDER TUBE IMMUNODEFICIENCY PANEL (TBNK) Ionized Calcium Lactate Level LIPID PANEL Lytes Magnesium Level MRSA PCR Nasal Swab Opiate Screen Urine OSMOLALITY, SERUM Phosphorus Level POC Hemochron ACT-LR TSH with T4 Reflex (Adults Only) Urinalysis w/hold for Urine Culture Urine Osmolality Urine Sodium CT Abd/Pelvis W/ IV Contrast Only CT Angio Head Hyperacute Stroke CT Angio Neck Hyperacute Stroke CT Chest W/ IV Contrast CT Head-Hyper Acute Stroke CXR Doppler Ext Lower Venous Left (US) MRI Brain W/O Contrast US Liver XR Chest Portable XR Femur 2 Views Left XR Hip w/Pelvis 2-3 View Left XR Pelvis 1 or 2 Views Add On Lab Order?? Primary Care Provider Naga KOHLER, Shayy Barnes? Discharge Vitals Temperature: 97.4 DegF Height: 180.34 cm Pulse Rate: 75 bpm Weight: 82.1 kg Respiratory Rate: 18 br/min Body Mass Index:??29.27 kg/m2??High Systolic Blood Pressure: 110 mm Hg Body surface area: 2.18 Diastolic Blood Pressure: 62 mm Hg ?? Oxygen Saturation: 95 % ?? Studies Pending All studies ordered during this hospital stay have been completed unless listed below. Please discuss all pending results with your provider listed above in these instructions. ?? Add On Lab Order?? What to do next Instructions From Your Doctor ?? Orders?? transport arrives, ??11/15/23 13:51:00 EST?? Prescriptions??, ??[facility] request, ??11/15/23 13:51:00 EST?? You Need to Schedule the Following Appointments Follow Up with??Naga KOHLER, Shayy aBrnes When:??Within Within two weeks Where: [address] [place] [address]- Discharge Medications HARMAN DAMIAN :1965 Visit Date:10/30/2023 Medications: Please continue your medications until treatment is completed or stopped by your provider. Medications not listed below should be discontinued. Discuss any questions related to medications with your provider. What How Much When Instructions Next Dose New Amoxicillin (amoxicillin 500 mg oral capsule) 1,000 Milligram Oral 3 times a day 11/15?? 8 PM New Aspirin (aspirin 81 mg oral delayed release tablet) 81 Milligram Oral Daily 11/16 AM New Clopidogrel (clopidogrel 75 mg oral tablet) 75 Milligram Oral Daily 11/16 AM New Folic Acid (folic acid 1 mg oral tablet) 1 Milligram Oral Daily 11/16 AM New Hydromorphone (HYDROmorphone 2 mg oral tablet) 4 Milligram Oral Every 4 hours as needed for Pain , Severe as needed last dose 1430 New Midodrine (midodrine 5 mg oral tablet) 5 Milligram Oral 3 times a day as needed for Other as needed for SBP <100 ?? as needed New Multivitamin With Minerals (Multivit Therapeutic/ Minerals Tablet) 1 tab(s) Oral Daily 11/16 AM New Nicotine 21 Milligram Topically Daily 11/16 AM New Pyridoxine (pyridoxine 50 mg oral tablet) 50 Milligram Oral Daily 11/16 AM New Senna (senna 187 mg oral tablet) 1 tab(s) Oral Twice a day as needed for Constipation as needed New Thiamine (thiamine 100 mg oral tablet) 100 Milligram Oral Daily 11/16 Changed Buprenorphine-Naloxone (Suboxone 8 mg-2 mg sublingual film) 1 Film Sublingual 3 times a day 11/15 8 pm Unchanged Acetaminophen (Tylenol 325 mg oral tablet) 1 - 2 tablet Oral Every 4 hours as needed for Pain , Mild as needed Unchanged bictegravir/ emtricitabine/ tenofovir (Biktarvy oral tablet) 1 tab(s) Oral Daily Pickup at [facility] 11/16 Unchanged BuPROpion (Wellbutrin SR 150 mg/ 12 hours oral tablet, extended release) 1 tab(s) Oral Twice a day PM Unchanged BusPIRone (busPIRone 10 mg oral tablet) 1 tab(s) Oral Twice a day Total per dosin mg ?? 11/15 PM Unchanged BusPIRone (busPIRone 15 mg oral tablet) 1 tab(s) Oral Twice a day Total per dosin mg ?? 11/15 PM Unchanged Cyclobenzaprine (cyclobenzaprine 10 mg oral tablet) 1 tab(s) Oral 3 times a day as needed for Spasm as needed Unchanged Docusate (DOK sodium 100 mg oral capsule) 1 capsule Oral Twice a day as needed for as needed for constipation as needed Unchanged Gabapentin (Neurontin 800 mg oral tablet) 1 tab(s) Oral 3 times a day 11/15 Unchanged HydrOXYzine (hydrOXYzine pamoate 50 mg oral capsule) 1 capsule Oral Every 6 hours as needed for as needed for anxiety as needed Unchanged Melatonin (melatonin 3 mg oral tablet) 1 tab(s) Oral Daily at Bedtime as needed for as needed for insomnia as needed Unchanged Metformin (metFORMIN 500 mg oral tablet, extended release) 1 tab(s) Oral Daily 11/16 Unchanged Pantoprazole (Protonix 40 mg oral delayed release tablet) 1 tab(s) Oral Daily 11/16 Unchanged Polyethylene Glycol 3350 (MiraLax oral powder for reconstitution) 17 gram Oral Daily as needed for Constipation as needed Unchanged Quetiapine (SEROquel 300 mg oral tablet) 1 tab(s) Oral Daily at Bedtime as needed for Sleep as needed Unchanged umeclidinium (Incruse Ellipta 62.5 mcg/ inh inhalation powder) 1 puff(s) Inhalation Every 24 hours 11/16 Pharmacy Information [facility]: [address], [place] [id number] [phone] ?? What How Much When Comments Stop Taking Ibuprofen (ibuprofen 600 mg oral tablet) 1 tab(s) Oral 3 times a day as needed for Pain , Moderate Stop Taking Omeprazole (omeprazole 20 mg oral delayed release tablet) 1 tab(s) Oral Twice a day Stop Taking Prazosin (prazosin 1 mg oral capsule) 1 capsule Oral Daily at Bedtime Prescription Given During Visit Buprenorphine-Naloxone (Suboxone 8 mg-2 mg sublingual film) - 1 film, Sublingual, 3 times a day, # 90 film, 0 Refills?? bictegravir/emtricitabine/tenofovir (Biktarvy oral tablet) - 1 tablet, By Mouth, Daily, # 30 tablet, 0 Refills, [facility], [address] [place] [phone]?? Laboratory Results Below is a partial list of the most recent Laboratory test results done prior to this discharge. You may have had other tests and procedures not included in this list. Please discuss all test resultswith your provider. Acetaminophen Level (10/30/2023) ? ?Acetaminophen Level - <5 mg/L Alcohol Level (10/30/2023) ???Ethanol, Serum or Plasma - NONE DETECTED Ammonia Venous (10/30/2023) ???Ammonia, Venous - 68 ??mole/L Amphetamine Urine Screen (10/30/2023) ???Amphetamine Screen, Urine - NONE DETECTED Aspirin Level (10/30/2023) ? ?Salicylate Level - <0.3 mg/dL Barbiturate Urine Screen (10/30/2023) ???Barbiturate Screen, Urine - NONE DETECTED Basic Metabolic Panel (11/15/2023) ???Sodium - 132 mmol/L???Potassium - 3.7 mmol/L???Chloride - 100 mmol/L???Bicarbonate Level - 21 mmol/L???Anion Gap - 11???Glucose Level - 113 mg/dL???BUN - 34 mg/dL???Creatinine-Blood - 0.8 mg/dL???Estimated GFR Creatinine - 102 ML/MIN/1.73 M2???Calcium - 8.0 mg/dL Benzodiazepine Urine Screen (10/30/2023) ???Benzodiazepine Screen, Urine - NONE DETECTED BUN (11/11/2023) ???BUN - 19 mg/dL Cannabinoid Urine Screen (10/30/2023) ???Cannabinoid Screen, Urine - NONE DETECTED CBC (11/14/2023) ???WBC - 8.9 k/mm3???RBC - 3.55 m/mm3???Hgb - 11.4 Gm/dL???Hct - 33.2 %???MCV - 93.5 femtoliters???MCH - 32.1 pg???MCHC - 34.3 g/dL???Platelet Count - 131 k/mm3???RDW-SD - 51.1 femtoliters???MPV - 13.0 femtoliters???Nucleated RBC (Automated) - 0.0 #/100 WBC'S???Abs. NRBC - 0.0 k/mm3 CBC w/ Differential (10/31/2023) ???WBC - 15.0 k/mm3???RBC - 3.98 m/mm3???Hgb - 12.6 Gm/dL???Hct - 36.0 %???MCV - 90.5 femtoliters???MCH - 31.7 pg???MCHC - 35.0 g/dL???Platelet Count - 109 k/mm3???RDW-SD - 50.8 femtoliters???MPV - 12.4 femtoliters???Nucleated RBC (Automated) - 0.0 #/100 WBC'S???Abs. NRBC - 0.0 k/mm3???Abs. Neut - 11.2 k/mm3???Abs. Lymph - 2.3 k/mm3???Abs. [place] - 1.2 k/mm3???Abs. Eo - 0.1 k/mm3???Abs. Baso - 0.1 k/mm3???Neut % - 75.3 %???Lymph % - 15.6 %???[place] % - 7.8 %???Eos % - 0.3 %???Baso % - 0.5 %???Imm Gran - 0.5 %???Abs. Imm Gran - 0.1 k/mm3 Cocaine Urine Screen (10/30/2023) ???Cocaine Metabolite Screen, Urine - NONE DETECTED Comprehensive Metabolic Panel (11/01/2023) ???Sodium - 137 mmol/L???Potassium - 4.5 mmol/L???Chloride - 101 mmol/L???Bicarbonate Level - 28 mmol/L???Anion Gap - 8???Glucose Level - 98 mg/dL???BUN - 12 mg/dL???Creatinine-Blood - 0.8 mg/dL???Estimated GFR Creatinine - 105 ML/MIN/1.73 M2???Calcium - 8.3 mg/dL???Protein, Total - 7.7 Gm/dL???Albu min - 3.3 Gm/dL???AG Ratio - 0.8???Alkaline Phosphatase - 281 units/L???AST (SGOT) - 73 units/L???ALT (SGPT) - 45 units/L???Bilirubin, Total - 2.1 mg/dL COVID-19, RSV, and Flu A/B, Rapid PCR (11/12/2023) ???Influenza A PCR - NEGATIVE???Influenza B PCR - NEGATIVE???RSV PCR - NEGATIVE???COVID-19 PCR Specimen Source - NASAL???COVID-19 PCR Result - NEGATIVE Creatinine (11/11/2023) ???Creatinine-Blood - 0.8 mg/dL???Estimated GFR Creatinine - 102 ML/MIN/1.73 M2 Electrolytes (11/11/2023) ???Sodium - 129 mmol/L???Potassium - 4.4 mmol/L???Chloride - 99 mmol/L???Bicarbonate Level - 19 mmol/L???Anion Gap - 11 GLUCOSE POC (11/15/2023) ???Glucose, POC - 91 mg/dL HEMOGLOBIN A1C (10/30/2023) ???Hemoglobin A1C (Monitoring) - 7.4 % Hepatitis A Ab IgM (10/31/2023) ???Anti Hepatitis A IgM - NEGATIVE Hepatitis A IgG (10/31/2023) ???Anti-HAV IgG - POSITIVE Hepatitis B Core Ab (10/31/2023) ???Hepatitis B Core Ab, Total - NEGATIVE Hepatitis B Surface Antibody, Quant (10/31/2023) ???Anti-HBS Quant - 12.07 mIU/mL Hepatitis B Surface Antigen (10/31/2023) ???Hepatitis B Surface Antigen - NEGATIVE Hepatitis C Ab (10/31/2023) ???Hepatitis C Ab - Reactive by screening EIA. Hepatitis C RNA PCR Quant (11/02/2023) ???Hepatitis C, RNA PCR, Quantitative - [id number] IU/mL???HCV Quant Log Result - 6.08 log IU/mL High??Sensitivity??Troponin T (10/30/2023) ???High Sensitivity Troponin (HSTnT) - 10 ng/L HOLD LAVENDER TUBE (11/15/2023) ???Hold Lavender Top - SPECIMEN DISCARDED AFTER 24 HOURS. IMMUNODEFICIENCY PANEL (TBNK) (11/08/2023) ???Cd4/Cd8 Ratio - 0.45???CD45 Lymph Abs Count, Flow - 999 cells/mm3???% CD4 (Trezevant T Cells) - 21 %???Abs CD4 (Trezevant T Cells) - 207 cells/mm3???% CD8 (Suppressor T Cells) - 46 %???Abs CD8 (Suppressor T Cells) - 456 cells/mm3???% CD3 (T Cells) - 65 %???Abs CD3 (T Cells) - 648 cells/mm3???% CD19 (BCells) - 7 %???Abs CD19 (B Cells) - 74 cells/mm3???% CD16+CD56 (NK Cells) - 27 %???Abs CD16+CD56 (NK Cells) - 268 cells/mm3 Ionized Calcium (10/31/2023) ???Calcium, Ionized pH Corrected - 1.16 mmol/L Lactate Level (11/06/2023) ???Lactate - 1.7 mmol/L LIPID PANEL (10/30/2023) ???Cholesterol - 113 mg/dL???Triglycerides - 137 mg/dL???HDL Cholesterol - 31 mg/dL???LDL Cholesterol - 55 mg/dL???Non HDL Cholesterol - 82 mg/dL Lytes (11/11/2023) ???Sodium - 129 mmol/L???Potassium - 4.7 mmol/L???Chloride - 98 mmol/L???Bicarbonate Level - 19 mmol/L???Anion Gap - 12 Magnesium Level (11/11/2023) ???Magnesium - 1.9 mg/dL MRSA PCR Nasal Swab (11/12/2023) ???MRSA PCR Result - Negative, MRSA target DNA not detected.???S Aureus PCR Result - Positive, SA target DNA detected. Opiate Screen Urine (10/30/2023) ???Opiate Screen, Urine - NONE DETECTED OSMOLALITY, SERUM (11/11/2023) ???Osmolality - 277 mOs/kg Phosphorus Level (11/11/2023) ???Phosphorus - 3.8 mg/dL POC Hemochron ACT-LR (11/06/2023) ???POC ACT-LR - 165.0 seconds TSH with T4 Reflex (Adults Only) (10/30/2023) ???TSH - 3.96 uIU/mL Urinalysis w/hold for Urine Culture (11/12/2023) ???Appear/Color, Urine - YELLOW???Specific Bowman, Urine - 1.020???pH, Urine - 6.5???Albumin, Urine - 1+???Glucose, Urine - NEGATIVE???Ketones, Urine - NEGATIVE???Bilirubin, Urine - NEGATIVE???Hemoglobin, Urine - 3+???Nitrite, Urine - NEGATIVE???Leukocyte, Urine - 3+???Urobilinogen - 2 mg/dL???WBC's, Urine - >182 /HPF? ?RBC's, Urine - >182 /HPF? ?Bacteria - HEAVY? ?Hold Urine Culture - Testing available 48 hours from time of collection. Urine Osmolality (11/12/2023) ???Osmolality, Urine Random - 513 mOsm/kg Urine Sodium (11/12/2023) ???Sodium, Urine Random - 33 mmol/L Immunizations This Visit Given Vaccine Date influenza virus vaccine, inactivated 10/31/2023 Allergies (NKA means No Known Allergies) Toradol [...] Educational Leaflet Providered with your Discharge Instructions. WebMD Ignite Patient Education - Understanding Carotid Angioplasty and Stenting?? Web[employer] Ignite Patient Education - Bacteremia, Suspected (Adult)?? Web[employer] Ignite Patient Education - Urinary Tract Infections in Men?? Fluzone Quadrivalent Influenza Vaccine Injectable Suspension?? Valuables and Belongings I fully understand and agree that [facility] accepts no responsibility for all my personal [...] to send valuables and belongings home. ?? Review of Valuable and Belonging List: With patient Date for Pt to Sign Valuables/Belongings: 11/15/23 13:02:00 ?? Other Discharge Information ? Pulmonary Rehab Status?? Pulmonary Rehab Discharge Status?? Respiratory Rate: 18 br/min ? Common Emergency Awareness Tips IS [...] are strongly encouraged to quit. Please call [facility] Link at [phone] or [phone] ([phone]) or log in to [email or web address] for referrals to smoking cessation programs. ?? 079 Suicide & Crisis Lifeline is available 17/04 if you or someone you know needs to find a reason to keep living. By calling 137 you'll be connected to a skilled, trained counselor at a crisis center in your area. INPATIENT DISCHARGE INSTRUCTIONS SIGNATURE PAGE HARMAN DAMIAN Location:[facility] Registration Date and Time:10/30/2023 06:48 EST Primary Care Physician: Naga KOHLER, Shayy Barnes, Attending Physician: Yassine Hernandez MD, I HARMAN DAMIAN, have received the above patient education materials/instructions and have verbalized understanding. If ambulance or transport services are being used I further acknowledge being given a choice of service. ?? If you need to contact me, please call me at this number: . Patient/Union Representative Name: Patient/Union Representative Signature: Relationship to Patient: Witness Name/Signature: Date: * Deon ESTRELLA Starla: PERFORM Event Display: Patient Education Leaflets Authored Date: [id number] Understanding Carotid Angioplasty and Stenting ?? [id number] Understanding Carotid Angioplasty and Stenting Angioplasty and stenting is a type of procedure to improve the blood flow in an artery or vein. Thecarotid arteries are 2 large arteries on either side of your neck. During the procedure, healthcareproviders use a thin tube with a balloon at its tip to open up the artery. A tiny metal mesh tube called a stent is put into the artery. It's left in place to help keep the artery open. This is a mini lorraine invasive procedure. That means it???s done with a small incision. Why is carotid angioplasty and stenting done? You have 2 carotid arteries. There's 1 on each side of your neck. These arteries send oxygen-rich blood to your neck, face, and brain. A condition called carotid artery stenosis means that one of these arteries is narrowed. It can???t send as much blood as it should. Carotid angioplasty and stenting can help reopen this artery. Carotid stenosis is often caused by the buildup of plaque on the inside of the artery. This is known as atherosclerosis. Certain things can raise your risk for carotid stenosis. These include: ??? Smoking ??? High blood pressure ??? High cholesterol ??? Diabetes ??? Obesity ??? Aging If you have mild carotid artery stenosis, your healthcare provider may give you medicines to reduceyour risk for stroke. If you have more severe blockage, your provider is more likely to advise a procedure to open the artery. Your provider is also more likely to advise a procedure if you have already had a stroke or ministroke. Carotid angioplasty and stenting is one option. Another is a surgery called carotid endarterectomy.This surgery removes plaque and any damaged part of the artery. Carotid angioplasty and stenting isless invasive. That means it uses only a small incision. Because of this, you may recover faster. It also avoids the risks of general anesthesia. Talk with your provider about the risks and benefits of each procedure for you. ?? How is carotid angioplasty and stenting done? The procedure will likely be done by a healthcare provider trained in vascular medicine. They will work with a team of special nurses and technicians. The provider makes a small cut (incision) in a blood vessel in your groin. They then put a long, thin wire into this cut. The provider then inserts a thin, flexible tube (catheter) over the wire. It has a tiny, deflated balloon on the end. The provider threads the catheter up into the carotid artery in your neck. There, the provider inflates the balloon inside the narrow part of the carotid artery. This stretches the area open. You may also geta mesh tube called a stent in the narrowed area. This helps keep the area open. ?? Risks of carotid angioplasty and stenting All procedures have risks. The risks of this procedure include: ??? Infection ??? Heavy bleeding ??? Artery injury ??? Allergic reaction to contrast material ??? Kidney damage ??? Stroke ??? Heart attack ??? Sudden vessel closure ??? Low blood pressure ??? Heart arrhythmias ??? Return of the blockage Your risks may vary based on your overall health, the severity of your condition, and other factors. You may have an increased risk for complications if you: ??? Have symptoms from your carotid stenosis ??? Have had a stroke or ministroke ??? Have other health conditions such as diabetes Ask your healthcare provider about which risks apply most to you. ?? Last Reviewed Date: 2022 ?? 5760-4595 [employer]. All rights reserved. This information is not intended as a substitute for professional medical care. Always follow your healthcare professional's instructions. ?? * Starla Chavarria DO: PERFORM Event Display: Patient Education Leaflets Authored Date: [id number] Bacteremia, Suspected (Adult) ?? [id number] Bacteremia, Suspected (Adult) Bacteremia is a bacterial infection that has spread to the bloodstream. This is serious because it can cause a lot of harm to the body. It can spread to other organs, including the bones, joints, kidneys, brain, and lungs. Bacteremia that spreads and causes significant inflammation in the body is called sepsis. You will have lab tests and imaging tests. The lab tests will include blood cultures to check for bacteremia. Blood cultures will find out the type of bacteria that you have. You will likely be started on antibiotics even before the results of the blood cultures are known. Causes Bacteremia often starts with an infection in one area, but it then spreads to the blood. Almost anytype of infection can cause bacteremia. This includes: ??? Urinary tract infection ??? Skin infection ??? Gastrointestinal problem ??? Infection after surgery ??? Lung infection (pneumonia) ??? Infection of a certified court/medical interpreter placed in a vein or the bladder ?? Symptoms At first, symptoms may seem like any local infection or illness. But then they get worse. Symptoms can include: ??? Fever and chills ??? Loss of appetite ??? Upset stomach (nausea) or vomiting ??? Trouble breathing or fast breathing ??? Fast heart rate ??? Feeling lightheaded or faint ??? Skin rashes or blotches ??? Confusion, severe sleepiness, or loss of consciousness ?? Home care People with bacteremia are most often treated in the hospital. After the most severe part of the illness is better, you may be sent home to complete your treatment. When caring for yourself at home: ??? Rest at home for the first 2 to 3 days. When resuming activity, don't let yourself become too tired. ??? You can take acetaminophen or ibuprofen for pain, unlessyou were given a different pain medicine to use. Talk with your healthcare provider before using these medicines if you have chronic liver or kidney disease. Talk with your provider if you have had astomach ulcer or digestive bleeding. Also talk with your provider if you are taking medicine to prevent blood clots such as blood thinners. ??? If you were given antibiotics, take them until they areused up, or your provider tells you to stop. It's important to finish the antibiotics even though you feel better. This is to make sure the infection has cleared. ??? Your appetite may be poor, so a light diet is fine. Drink plenty of fluids (6 to 8 glasses of fluid per day). This includes water, soft drinks, sports drinks, juices, tea, or soup. ?? Follow-up care Follow up with your healthcare provider, or as advised. Once the results of the blood culture are known, your healthcare provider may change your antibiotic. You can call for the results. If you had X-rays, a CT scan, or an ultrasound, a healthcare provider will look at them. You will be told of any results that may affect your care. ?? Call 911 Call 911 if you have any of these: ??? Wheezing or trouble breathing ??? Trouble swallowing ??? Chest pain ??? Confusion or sudden change in behavior ??? Extreme drowsiness or trouble waking up ??? Fainting or loss of consciousness ??? Fast heart rate ??? Low blood pressure ??? Vomiting blood, or large amounts of blood in stool ??? Seizure ?? When to get medical care Call your healthcare provider if you have any of these: ??? Cough with lots of colored mucus, or blood in your mucus ??? Severe headache ??? Severe face, neck, throat, or ear pain ??? Belly pain ??? Weakness, dizziness, repeated vomiting, or diarrhea ??? Joint pain or a new rash ??? Burning feelingwhen peeing (urinating) ??? Fever of 100.4??F (38??C) or higher, or as advised by your provider ?? Last Reviewed Date: 2022 ?? [id number] [employer]. All rights reserved. This information is not intended as a substitute for professional medical care. Always follow your healthcare professional's instructions. ?? * Starla Chavarria DO: PERFORM Event Display: Patient Education Leaflets Authored Date: [id number] Urinary Tract Infections in Men ?? [id number] Urinary Tract Infections in Men Urinary tract infections (UTIs) are most often caused by bacteria that invade the urinary tract. The bacteria may come from outside the body. Or they may travel from the skin outside the rectum into the urethra. The urethra is the tube that carries urine from the bladder out of the body. Pain in oraround the urinary tract is a common symptom for most UTIs. Woman more commonly get UTIs than men. That???s because their urethra is shorter. Older men get UTIs more commonly than younger because older men may have an enlarged prostate. A UTI in a male is usually a sign that something is wrong with their urinary system. Using a catheter also increases the risk for UTI. Most UTIs are treated with antibiotics. These kill the bacteria. How long you need to take them depends on the type of infection. Take antibiotics exactly as directed until all of the medicine is gone. If you don't, the infection may not go away and may become harder to treat in the future. Gender words are used here to talk about anatomy and health risk. Please use this information in a way that works best for you and your provider as you talk about your care. Home care The lifestyle changes below will help get rid of your current infection. They may also help preventfuture UTIs: ??? Drink plenty of fluids, such as water, juice, or other caffeine-free drinks. This helps flush bacteria out of your system. ??? Empty your bladder when you feel the urge to urinate and before going to sleep. Urine that stays in your bladder makes an infection more likely. ??? If youare uncircumcised, pull the foreskin back and wash under the foreskin each time you take a bath or shower. ?? Follow-up care Follow up with your healthcare provider, or as advised if your symptoms continue after finishing all of the antibiotic medicine. Your healthcare provider may do tests to make sure the infection has cleared. If needed, more treatment can be started. ?? When to get medical advice Call your healthcare provider right away if any of the following occur: ??? Frequent urination ??? Pain or burning when passing urine ??? Weak urine stream ??? Feeling that you can't empty your bladder ??? Fever of 100.4??F (38??C) or higher , or as directed by your healthcare provider ??? Urine that looks dark, cloudy, or reddish in color. This may mean that blood is in the urine. ??? Urine smells bad ??? Feeling pain even when not urinating ??? Tiredness ??? Pain in the belly (abdomen) area below the bellybutton, or in the back or side, below the ribs ??? Nausea or vomiting ??? Have a strong urge to urinate, but only a small amount of urine is passed (dribbling) ??? Feeling confused or very tired (in older adults) ?? Last Reviewed Date: 2022 ?? [id number] [employer]. All rights reserved. This information is not intended as a substitute for professional medical care. Always follow your healthcare professional's instructions. ?? * Event Display: Hemodynamic Procedure Report Authored Date: * Event Display: Hemodynamic Procedure Report Authored Date: * Event Display: Hemodynamic Procedure Report Authored Date: Admission evaluation note * Stacey Em MD: PERFORM, MODIFY, MODIFY, MODIFY Event Display: Admission Note Authored Date: [id number] Patient: ??HARMAN DAMIAN ? Age:??58 Years?Sex:??Male?:??1965?? Chief Complaint/Reason for Consultation collapse, word finding difficulty History of Present Illness Harman Damian??is a 58-year-old man with a past medical history of depression with prior SI, polysubstance use (alcohol, heroin, cocaine, opiates, marijuana, tobacco) opiate use disorder in remission on methadone, HIV on ART, COPD, hypertension, prediabetes, chronic back pain, history of bilateral hip replacements who presented from a detention after possible syncopal episode. ?? Per initial intake notes, last known well was around 1 AM, staff heard a thud and found patient on the floor, unclear if the fall itself was witnessed.?? Patient found to have expressive aphasia and word finding difficulties and presented by EMS as a stroke alert. ?? ED course:?? Vitals: Afebrile, heart rate 70s to 80s, normotensive 110s to 120s over 70s to 90s, respiratory rate 18, satting 96% on room air Imaging: - CT head hyperacute stroke: No acute intracranial pathology, bilateral diffuse mucosal thickening of left maxillary and frontal and bilateral ethmoid sinuses with mucosal retention cyst versus polyp - CTA Head/Neck: Right ICA origin 90% stenosis, left ICA origin 50% stenosis, no high-grade stenosis of major branches of intracranial arteries - CT Chest/Abd/Pelvis w/: contrast: Mild splenomegaly, chronic T4-T5 and L5 compression fracture, mild short segment sigmoid colitis with trace surrounding fluid-no perforation or abscess, no traumatic injuries to chest abdomen or pelvis Labs: Leukocytosis 13.7, hemoglobin 13.9 platelets 125, electrolytes within normal limits, hemoglobin A1c 7.4, creatinine 0.8, elevated LFTs AST 114, ALT 59, total bili 2.6, lactate 1.7, alk phos 321TSH within normal limits, toxicology screen included ethanol (not detected) salicylates (<0.3) and acetaminophen (<5), negative flu/RSV/COVID, UA bland, ammonia 64 ?? Patient seen in the afternoon resting in bed appearing comfortable except has notable??word findingdifficulties and stammering,??as well as restless flailing??movements of his limbs while talking. He is alert and oriented to person place and time??though struggles to give me his history due to hisspeech difficulty.?? He does much better when answering yes or no questions??at which time the??stammering as well as flailing body movements seem to settle.?? He tells me that this morning around 4 AM he got up??to get his medications, at that time he felt well and in his usual state of health??and then shortly after taking his usual medicines (including bupropion, BuSpar, Suboxone)??he??suddenly collapsed. ??Denied any chest pain, palpitations, dizziness, lightheadedness, changes in his vision. ??Denies loss of consciousness.?? Did feel some confusion after the event, denies tongue biting.?? No history of seizures. ??No changes in his medications recently. ??Denies any recent relapse or substance use.?? He tells me that over the last 2 months??the word finding difficulties and stammering began, his friends have noticed it??and it tends to come and go but right now it is persistent. ??He also complains of pain in his left hip??radiating down his leg??and weakness in his left leg, hx bilateral hip surgeries after a fall from 50 feet. ?? Tearful when discussing his sister passing last year from fentanyl OD. Close to this time he found his father he believes from a heart attack at home. His broth Vandana is his HCP, has not spoken to him in some time, only wants him updated if necessary. ?? Review of Systems ROS??per HPI Objective Vital Signs?? Temperature: 98.9 DegF (10/30/23 08:36:00) Temperature Route: Oral (10/30/23 08:36:00) Pulse Rate: 90 bpm (10/30/23 14:32:00) Respiratory Rate: 18 br/min (10/30/23 14:32:00) Systolic Blood Pressure: 136 mm Hg (10/30/23 14:32:00) Diastolic Blood Pressure: 71 mm Hg (10/30/23 14:32:00) Blood pressure sites: Arm, left (10/30/23 14:32:00) Mean Arterial Pressure: 83 mm Hg (10/30/23 05:00:00) Pulse Pressure: 65 mm Hg (10/30/23 14:32:00) Oxygen Saturation: 96 % (10/30/23 14:32:00) Mode of Delivery (Oxygen): Room air (10/30/23 14:32:00) Early Warning Score: 6 (10/30/23 14:33:27) ? Physical Exam General Appearance: The patient is in NAD. Eyes: EOMI. KARLEE. No scleral icterus. ENT: ??MM moist. upper dentures only.?? Cardiovascular: RRR S1 and S2 heard with no M/R/G. Respiratory: ??Breath sounds clear to auscultation bilaterally. No wheezing. Good air movement throughout both lungs. GI: Soft, distended but nontender. Normal bowel sounds present throughout abdomen. ??No rebound tenderness or other findings suggestive of an acute abdomen.?? MS: ??No edema or erythema in the lower extremities. Peripheral sensation intact. No spinal or paraspinal tenderness. ??No CVA tenderness. right comber tender callus. Skin:??rash on left lateral thigh, no open sores, scattered lesions in various stages of healing, no evidence of purulence or cellulitis. otherwise skin is dry.? Psych: Alert and oriented x3. Content of speech appropriate, not pressured. Lines: Peripheral IV in place.? Neurologic Physical Exam: CNI:?No change in taste or smell. CN II:?Visual plaza are full to confrontation.?Pupils are 3 mm and briskly reactive to light. CN III, IV, :?At primary gaze, there is no eye deviation. Extraocular muscles grossly intact.?Convergence is intact. CN V:? reports feels more on right side in all 3 divisions. CN VII:?Face is symmetric with??appropriate??eye closure and smile. CN VII:?Hearing is??intact??to lightly rubbing fingers. CN IX, X:?Palate elevates symmetrically. CN XI:?Head turning and shoulder shrug are intact??bilaterally. CN XII:?Tongue is midline with normal movements and no atrophy. Motor:?There is no pronator drift of out-stretched arms. Strength UE 5/5, right LE 5/5, left LE limited by hip pain. Some diffuse chorea like movements throughout conversation but are distractible. Reflexes:??Patellar reflexes +2 bilaterally. Sensory:?Light touch??is intact in bilateral upper and lower extremities. Coordination:?+dysmetria on [id number]-[id number], struggled with [id number]-wfpa but suspect due to effort/pain not incoordination. + asterixis. Gait/Stance:??not tested ? Assessment/Plan Harman Damian??is a 58-year-old man with a past medical history of depression with prior SI, polysubstance use (alcohol, heroin, cocaine, opiates, marijuana, tobacco) opiate use disorder in remission on methadone, HIV on ART, COPD, hypertension, prediabetes, chronic back pain, history of bilateral hip replacements who presented from a detention after possible syncopal episode. ??He initially presented as a code stroke though acute imaging shows no acute abnormalities, neurology is following and heis currently pending an MRI brain to further evaluate.?? Based on his history, physical exam and lab findings??concerning for??metabolic component??including underlying liver disease secondary to history of chronic alcohol use??which may also be a factor.?? Admitted to medicine for further management. ?? Fall (W19.XXXA):??- Unwitnessed event, unclear if this was a syncopal episode. ??Patient had no prodrome,??chest pain, lightheadedness or dizziness??prior to falling to the ground. ??There is no change in his medication.?? Initial troponin??checked and was flat, will trend however he had no acute??ischemic changes on his EKG.?? Will monitor with cardiac telemetry for now.?? Patient has a history of??a traumatic falland muscle spasms for which she is prescribed cyclobenzaprine as needed, possible that patient had??a muscle spasm in his left leg which led him to fall.?? He has no history of seizures, there is no witnessed seizure activity??and he did not have an elevated lactate on??admission making seizure less likely. ??Will monitor for seizures and if seizure activity is noted could consider obtaining a routine EEG.?? Will assess for orthostatic hypotension.?? Patient had prediabetes but based on his hemoglobin A1c this admission??he has progressed to diabetes, he is only taking metformin at home but??h ypoglycemic??episode versus??peripheral neuropathy secondary to diabetes could also have been a component.?? He does have asterixis on exam??and a mildly elevated ammonia level,??unlikely that he was??in advanced stage of hepatic encephalopathy at the time but could also be considered. Less likely on the differential would be a post infectious ataxia- he has a rash on his hip with appearance of resolving shingles, more likely his neuro findings are due to underlying liver disease and metabolic issues. Plan: ?Continue traffic officer ?Check orthostatic vitals ?Continue home cyclobenzaprine as needed for muscle spasm ???For any seizure activity consider routine EEG ???Follow-up with neuro recommendations ?? Aphasia of unknown origin (R47.01):??- Word finding difficulty (R47.89):??-subacute, pt reports started 2 mos ago Depression with anxiety (F41.8):??- On exam patient??was noted to have difficulty with word finding??as well as??stammering which seem to worsen when he talked about traumatic incidents in his life, it is possible this is a somatic presentation of underlying psychiatric disorder.?His stroke workup??was significant only for 90% sten osis of??right ICA origin which may not??be consistent with his symptoms. Consider TIA??due to transient nature of patient's??sx.??Denies active SI. Plan: ??? Follow-up MRI brain??ordered per neuro ??? Continue aspirin 81 mg daily ?ST eval for speech ???Continue home psych regimen??including bupropion,??BuSpar??but only as needed (reduced from homedose), Seroquel 30 mg as needed at bedtime for insomnia, hydroxyzine as needed for anxiety ?? Malnutrition (E46):??- Patient has notable temporal wasting, thin extremities with a protuberant abdomen has not been eating well, has food insecurity Plan: ?Nutrition consult ?folic acid, pyridoxine, thiamine ordered ?? Liver disease (K76.9):??- Elevated transaminase level (R74.01):??- Hepatic encephalopathy (K76.82):??- Asterixis (R27.8):??- Patient noted to have elevated transaminases as well as an elevated ammonia level and??dysmetria??with??asterixis on exam. CT abd/pelvis shows irregular hepatic contour. ??LFT elevations may be secondary to underlying cirrhosis??possibly secondary to history of alcohol use disorder, may be secondary to medication such as his??antiretrovirals,??his acetaminophen level was undetected on admission??and he had no reports of other toxic ingestions.?? Plan: ??? Monitor??liver function daily ??? Start lactulose titrate to 3 bowel movements daily??and monitor for resolution of asterixis ??? Follow-up hepatitis panel ?? Alcohol use disorder in remission (F10.91):??- Patient reports he is??abstained from alcohol for the last 7 months, goes to , continue to monitor and support, can consider addiction consult later in hospital course if patient is interested in??getting connected to community resources ?? Type 2 diabetes mellitus (E11.9):??- Hemoglobin A1c on admission 7.4. ??Home regimen: Metformin Plan: ??? Hold metformin ??? POC 3 times daily, lispro sliding scale ?? GERD (gastroesophageal reflux disease) (K21.9): Continue home PPI ?? COPD without exacerbation (J44.9):??- Patient reports history of COPD, no oxygen at home,??has a prescription for an Incruse inhaler at home has not had recent exacerbation Plan: ?Breo while admitted ?? Rash (R21) Patient has a small rash on the??lateral aspect of his left hip??with the appearance of resolving shingles potentially, no open lesions Plan: ??? Continue to monitor ?? Tobacco use disorder (F17.200):??- Patient smokes??usually 3 to 4 cigarettes up to half pack a day, requests patch Plan: ?Nicotine replacement patch ordered,??counseled patient on tobacco cessation ?? HIV disease (B20):??- On Biktarvy. ??Appears to have been feeling it consistently.?? ID pharmacy reviewed and is okay to continue. Plan: ??? Continue Biktarvy ??? Follow-up C4 level ?? Opioid use disorder in remission (F11.91):??- Prescriber??is through [facility] Plan: ??? Continue Suboxone 8???2 3 times daily ? Quality Measures: Code status:??Limited Resuscitation:?? No External Chest Compressions * confirmed with pt on admission he does not want chest compressions but if he could not breath he would want a breathing tube Diet:Cardiac Diet -- Cardiac, No Carbohydrate Restriction, 2 Gram Sodium, Fluids: No Fluid Restriction, Start: now, 10/30/23 10:06:00 EST VTE prophylaxis:_??unable to order without updated weight, ordered weight to be checked on admission, please follow up in morning and order as appropriate, likely can use enoxaparin renal function ok HCP: brother Vandana Damian OMN: Neuro workup, tx underlying liver disease DISPO: from detention, pending above workup may need PT ?? Stacey Em MD Internal Medicine PGY 2 Pager [phone] ?? Patient seen and discussed with??Dr. Hernandez Histories Allergies Allergies ?(Active and Proposed Allergies [...] ORIF - Open reduction and internal fixation of fracture Left cataract surgery ? Social History Alcohol Details:??Use: Past. ??Frequency: Daily. ??Type: Beer. ??Other: 7 months sober Substance Abuse Details:??Use: Past. ??Type: Heroin.?? Stable on Suboxone Tobacco Details:??Use: 3 to 4 cigarettes/day Currently homeless, living??at[facility]??currently ? Family History Father sudden [place] Mom had??a neurologic condition which she cannot tell me more about ? Medications Home Medications Acetaminophen (Tylenol 325 mg oral tablet)?1 - 2 tablet?By Mouth?Every 4 hours?as needed?Pain , Mild bictegravir/emtricitabine/tenofovir (Biktarvy oral tablet)?1?tab(s)?By Mouth?Daily Buprenorphine-Naloxone (Suboxone 8 mg-2 mg sublingual film)?1?Film?Sublingual?3 times aday BuPROpion (Wellbutrin SR 150 mg/12 hours oral tablet, extended release)?1?tab(s)?150?Milligram?By Mouth?2 times a day BusPIRone (busPIRone 15 mg oral tablet)?1?tab(s)?15?Milligram?By Mouth?2 times a day?Total per dosin mg BusPIRone (busPIRone 10 mg oral tablet)?10?Milligram?1?tablet?By Mouth?2 times a day?Total per dosin mg Cyclobenzaprine (cyclobenzaprine 10 mg oral tablet)?10?Milligram?1?tablet?By Mouth?3 times a day?as needed?Spasm Docusate (DOK sodium 100 mg oral capsule)?1?capsule?100?Milligram?By Mouth?2 times a day?as needed?as needed for constipation Gabapentin (Neurontin 800 mg oral tablet)?1?tab(s)?800?Milligram?By Mouth?3 timesa day HydrOXYzine (hydrOXYzine pamoate 50 mg oral capsule)?1?capsule?50?Milligram?By Mouth?Every 6 hours?as needed?as needed for anxiety Ibuprofen (ibuprofen 600 mg oral tablet)?600?Milligram?1?tablet?By Mouth?3 times a day?as needed?Pain , Moderate Melatonin (melatonin 3 mg oral tablet)?1?tab(s)?3?Milligram?By Mouth?Daily at bedtime?as needed?as needed for insomnia Metformin (metFORMIN 500 mg oral tablet, extended release)?1?tab(s)?500?Milligram?ByMouth?Daily Pantoprazole (Protonix 40 mg oral delayed release tablet)?1?tab(s)?40?Milligram?By Mouth?Daily Polyethylene Glycol 3350 (MiraLax oral powder for reconstitution)?17?gram?By Mouth?Daily?as needed?Constipation Prazosin (prazosin 1 mg oral capsule)?1?Milligram?1?capsule?By Mouth?Daily at bedtime Quetiapine (SEROquel 300 mg oral tablet)?1?tab(s)?300?Milligram?By Mouth?Daily atbedtime?as needed?Sleep umeclidinium (Incruse Ellipta 62.5 mcg/inh inhalation powder)?1?puff(s)?Inhalation?Every 24 hours ? Inpatient Medications Medications (24) Active SCHEDULED: (14) Aspirin 81 mg EC Tablet (aspirin 81 mg oral delayed release tablet) ??81 mg, By Mouth, Daily Bictegravir/Emtricitabine/Tenofovir 50 mg-200 mg-25 mg Tablet (Biktarvy Tablet) ??1 tablet, By Mouth, Daily Breo Ellipta 100 mcg / 25 mcg Inhaler (Breo Ellipta 100 mcg-25 mcg Inhaler) ??1 puffs, Inhalation, Daily buprenorphine-naloxone 8 mg-2 mg Film (Suboxone 8 mg-2 mg Sublingual Film) ??1 film, Sublingual, 3 times a day BuPROPion 150 mg SR Tablet (BuPROpion SR Tablet) ??150 mg, By Mouth, 2 times a day Folic Acid 1 mg Tablet (folic acid 1 mg oral tablet) ??1 mg, By Mouth, Daily Gabapentin 400 mg Capsule (Neurontin 400 mg oral capsule) ??800 mg, By Mouth, 3 times a day Lactulose 20 Gm/30mL Syrup (lactulose 10 gm/15 ml oral syrup) ??20 Gm 30 mL, By Mouth, 3 times a day NaCl 0.9% Flush 3ml (NaCL 0.9% Flush) ??3 mL, IV Push, Every 8 hours Nicotine 21 mg / 24 hour Patch (Nicotine Topical) ??21 mg, Topically, Daily Pantoprazole 40 mg EC Tablet (Protonix 40 mg oral delayed release tablet) ??40 mg, By Mouth, Daily Pyridoxine 50 mg Tablet (pyridoxine 50 mg oral tablet) ??50 mg, By Mouth, Daily Remove Patch (Remove ??Patch) ??1 each, Topically, Daily Thiamine 100 mg Tablet (thiamine 100 mg oral tablet) ??100 mg, By Mouth, Daily CONTINUOUS: (0) PRN: (10) Acetaminophen 325 mg Tablet (Tylenol 325 mg oral tablet) ??650 mg, By Mouth, Every 6 hours BusPIRone 10 mg Tablet (busPIRone 10 mg oral tablet) ??10 mg, By Mouth, 2 times a day Cyclobenzaprine 10 mg Tablet (cyclobenzaprine 10 mg oral tablet) ??10 mg, By Mouth, 3 times a day Docusate Sodium 100 mg Capsule (Docusate Sodium Capsule) ??100 mg 1 capsule, By Mouth, 2 times a day HydrOXYzine Pamoate 25mg Capsule (hydrOXYzine pamoate 25 mg oral capsule) ??50 mg, By Mouth, Every 6 hours Melatonin 3 mg Tablet (Melatonin Tablet) ??3 mg, By Mouth, Daily at bedtime NaCl 0.9% Flush 3ml (NaCL 0.9% Flush) ??3 mL, IV Push, Every 8 hours Polyethylene Glycol 17 Gm Powder (MiraLax Powder) ??17 Gm 1 pack/packet, By Mouth, Daily Quetiapine 100 mg Tablet (SEROquel 100 mg oral tablet) ??300 mg, By Mouth, Daily at bedtime Senna Tablet ??8.6 mg 1 tablet, By Mouth, 2 times a day ? Results Recent Labs BLOOD COUNT & DIFF WBC 13.7 k/mm3 (High)?? 10/30/2023 05:04 RBC 4.40 m/mm3 (Low)?? 10/30/2023 05:04 Hgb 13.9 Gm/dL ()?? 10/30/2023 05:04 Hct 41.1 % ()?? 10/30/2023 05:04 MCV 93.4 femtoliters ()?? 10/30/2023 05:04 MCH 31.6 pg ()?? 10/30/2023 05:04 MCHC 33.8 g/dL ()?? 10/30/2023 05:04 Platelet Count 125 k/mm3 (Low)?? 10/30/2023 05:04 RDW-SD 52.6 femtoliters (High)?? 10/30/2023 05:04 MPV 12.7 femtoliters (High)?? 10/30/2023 05:04 Nucleated RBC (Automated) 0.0 #/100 WBC'S ()?? 10/30/2023 05:04 Abs. NRBC 0.0 k/mm3 ()?? 10/30/2023 05:04 Abs. Neut 9.0 k/mm3 (High)?? 10/30/2023 05:04 Abs. Lymph 3.1 k/mm3 ()?? 10/30/2023 05:04 Abs. [place] 1.3 k/mm3 ()?? 10/30/2023 05:04 Abs. Eo 0.1 k/mm3 ()?? 10/30/2023 05:04 Abs. Baso 0.1 k/mm3 ()?? 10/30/2023 05:04 Neut % 65.5 % ()?? 10/30/2023 05:04 Lymph % 22.6 % ()?? 10/30/2023 05:04 [place] % 9.2 % ()?? 10/30/2023 05:04 Eos % 0.9 % ()?? 10/30/2023 05:04 Baso % 0.8 % ()?? 10/30/2023 05:04 Imm Gran 1.0 % ()?? 10/30/2023 05:04 Abs. Imm Gran 0.1 k/mm3 ()?? 10/30/2023 05:04 ?? CARDIAC High Sensitivity Troponin (HSTnT) 10 ng/L ()?? 10/30/2023 11:43 ?? CHEM GENERAL Sodium 137 mmol/L ()?? 10/30/2023 05:05 Potassium 4.6 mmol/L ()?? 10/30/2023 05:05 Chloride 100 mmol/L ()?? 10/30/2023 05:05 Bicarbonate Level 27 mmol/L ()?? 10/30/2023 05:05 Anion Gap 10 ()?? 10/30/2023 05:05 Glucose Level 147 mg/dL (High)?? 10/30/2023 05:05 Glucose, POC 146 mg/dL (High)?? 10/30/2023 04:48 Hemoglobin A1C (Monitoring) 7.4 % (High)?? 10/30/2023 05:04 BUN 14 mg/dL ()?? 10/30/2023 05:05 Creatinine-Blood 0.8 mg/dL ()?? 10/30/2023 05:05 Estimated GFR Creatinine 103 ML/MIN/1.73 M2 ()?? 10/30/2023 05:05 Calcium 8.8 mg/dL ()?? 10/30/2023 05:05 Phosphorus 3.3 mg/dL ()?? 10/30/2023 11:43 Magnesium 1.7 mg/dL ()?? 10/30/2023 11:43 Protein, Total 8.2 Gm/dL ()?? 10/30/2023 05:05 Albumin 3.6 Gm/dL ()?? 10/30/2023 05:05 AG Ratio 0.8 ()?? 10/30/2023 05:05 Alkaline Phosphatase 321 units/L (High)?? 10/30/2023 05:05 AST (SGOT) 114 units/L (High)?? 10/30/2023 05:05 ALT (SGPT) 59 units/L (High)?? 10/30/2023 05:05 Bilirubin, Total 2.6 mg/dL (High)?? 10/30/2023 05:05 Lactate 1.7 mmol/L ()?? 10/30/2023 05:05 ?? ENDOCRINE/TUMOR MARKER TSH 3.96 uIU/mL ()?? 10/30/2023 05:05 ?? LIPID STUDIES Cholesterol 113 mg/dL ()?? 10/30/2023 05:05 Triglycerides 137 mg/dL ()?? 10/30/2023 05:05 HDL Cholesterol 31 mg/dL (Low)?? 10/30/2023 05:05 LDL Cholesterol 55 mg/dL ()?? 10/30/2023 05:05 Non HDL Cholesterol 82 mg/dL ()?? 10/30/2023 05:05 ?? MISC. CHEMISTRY Ammonia, Venous 68 ??mole/L (High)?? 10/30/2023 13:05 ?? TOXICOLOGY/TDM Ethanol, Serum or Plasma NONE DETECTED mg/dL ()?? 10/30/2023 05:05 Salicylate Level <0.3 mg/dL (Low)?? 10/30/2023 05:05 Barbiturate Screen, Urine NONE DETECTED ()?? 10/30/2023 10:46 Cannabinoid Screen, Urine NONE DETECTED ()?? 10/30/2023 10:46 Cocaine Metabolite Screen, Urine NONE DETECTED ()?? 10/30/2023 10:46 Benzodiazepine Screen, Urine NONE DETECTED ()?? 10/30/2023 10:46 Amphetamine Screen, Urine NONE DETECTED ()?? 10/30/2023 10:46 Opiate Screen, Urine NONE DETECTED ()?? 10/30/2023 10:46 Acetaminophen Level <5 mg/L (Low)?? 10/30/2023 05:05 ?? UA/URINALYSIS Appear/Color, Urine YELLOW ()?? 10/30/2023 10:46 Specific Bowman, Urine 1.038 (High)?? 10/30/2023 10:46 pH, Urine 6.5 ()?? 10/30/2023 10:46 Albumin, Urine NEGATIVE ()?? 10/30/2023 10:46 Glucose, Urine NEGATIVE ()?? 10/30/2023 10:46 Ketones, Urine NEGATIVE ()?? 10/30/2023 10:46 Bilirubin, Urine NEGATIVE ()?? 10/30/2023 10:46 Hemoglobin, Urine NEGATIVE ()?? 10/30/2023 10:46 Nitrite, Urine NEGATIVE ()?? 10/30/2023 10:46 Leukocyte, Urine NEGATIVE ()?? 10/30/2023 10:46 Urobilinogen NORMAL mg/dL ()?? 10/30/2023 10:46 WBC's, Urine 1 /HPF ()?? 10/30/2023 10:46 RBC's, Urine 1 /HPF ()?? 10/30/2023 10:46 Squamous Epith <1 /HPF ()?? 10/30/2023 10:46 Hyaline Cast 1 LPF ()?? 10/30/2023 10:46 Hold Urine Culture Testing available 48 hours from time of collection. ()?? 10/30/2023 10:46 ?? VIROLOGY Influenza A PCR NEGATIVE ()?? 10/30/2023 07:44 Influenza B PCR NEGATIVE ()?? 10/30/2023 07:44 RSV PCR NEGATIVE ()?? 10/30/2023 07:44 COVID-19 PCR Specimen Source NASAL ()?? 10/30/2023 07:44 COVID-19 PCR Result NEGATIVE ()?? 10/30/2023 07:44 ? * David ALBARRAN, Yassine Kerr: PERFORM Event Display: Admission Note Authored Date: Attending Attestation: I have??seen and evaluated??HARMAN DAMIAN, on 09/29/23. ??I have??reviewed the patient???s medical history, findings on examination, diagnosis, and treatment. I have discussed thecase and its management with the resident and agree with the findings and plan as documented in theresident???s note.? Additional Clarifying information:?? Seen in the ED, presented after syncopal episode with associated leg pain that seems to be causing his weakness.?? Exam notable for asterixis and subjective subacute to chronic word finding/ stuttering that was not appreciated on my exam but noted by Dr. Em.?? Unclear etiology for syncopal episode, though neurology wants to rule out CVA.?? Will also rule out orthostatics. ??No clear seizure activity, not likely cardiac, but given sudden collapse will keep on Telemetry and monitor for 24-48 hours.?? Given the asterixis on exam, nodular appearing liver on CT and abnormal LFTs, concern for cirrhosis and mild hepatic encephalopathy. No clear abdominal pathology on exam, but given underlying immunocompromised state and medications, will assess for viralhepatitis.? EKG study * Event Display: ECG 12-Lead Authored Date: Please click on pdf link to open report * Event Display: ECG 12-Lead Authored Date: Ventricular Rate: 54 BPM Atrial Rate: 54 BPM P-R Interval: 130 ms QRS Duration: 78 ms Q-T Interval: 470 ms QTC Calculation(Bazett): 445 ms P Harrison: 50 degrees R Harrison: 65 degrees T Harrison: 44 degrees Sinus bradycardia Otherwise normal ECG When compared with ECG of 30-OCT-2023 07:43, Vent. rate has decreased BY 28 BPM Confirmed by MATTHIEU DONIS ([id number]) on 11/06/2023 6:43:55 PM Varnell: MATTHIEU DONIS * Event Display: ECG 12-Lead Authored Date: Please click on pdf link to open report * Event Display: ECG 12-Lead Authored Date: Ventricular Rate: 82 BPM Atrial Rate: 82 BPM P-R Interval: 130 ms QRS Duration: 72 ms Q-T Interval: 354 ms QTC Calculation(Bazett): 413 ms P Harrison: 35 degrees R Harrison: 64 degrees T Harrison: 33 degrees Normal sinus rhythm Normal ECG When compared with ECG of 30-OCT-2023 05:57, No significant change was found Confirmed by JOHN CHAVEZ MD ([id number]) on 11/02/2023 8:34:12 AM Varnell: JOHN CHAVEZ MD * Event Display: ECG 12-Lead Authored Date: Please click on pdf link to open report * Event Display: ECG 12-Lead Authored Date: Ventricular Rate: 78 BPM Atrial Rate: 78 BPM P-R Interval: 138 ms QRS Duration: 78 ms Q-T Interval: 374 ms QTC Calculation(Bazett): 426 ms P Harrison: 22 degrees R Harrison: 51 degrees T Harrison: 18 degrees Normal sinus rhythm Normal ECG When compared with ECG of 14-MAY-2023 14:42, No significant change was found Confirmed by JOHN CHAVEZ MD ([id number]) on 11/02/2023 8:34:08 AM Varnell: JOHN CHAVEZ MD Cardiology * Event Display: Cardiac Rhythm Strips Authored Date: * Event Display: Cardiac Rhythm Strips Authored Date: * Event Display: Cardiac Rhythm Strips Authored Date: Hospital Progress note * Karlee Gill RN: PERFORM, SIGN, VERIFY Event Display: Progress Note Hospital Authored Date: Patient: HARMAN DAMIAN Age: 58 years Sex: Male : 1965 Associated Diagnoses: None Author: Karlee Gill RN Findings Problem Related to Alteration in Neurological : Alteration in Neurological Function/new 11/15/2023 8:00 EST Alteration in Neuro status Related to Acute Stroke (CVA), Other: right ICA stenosis s/p stent 11/06 Goals & Outcomes, Neurological Lab studies/diagnostic tests within pt specific limits, Pt is safe with transfers & activities, Pt will be hemodynamically stable, Pt will be Neurologically stable, Pt will remain free from injury, Pt will resume/maintain adequate cardiac output, Pt will stateimportance of adhering to medication regime, Pt/caregiver will receive psychosocial support as needed, Pt/caregiver will state strategies to reduce risk factors, Pt/caregiver will state understandingof disease process, Pt/caregiver will state understanding of plan/goals of care Interventions, Neurological Assess/monitor for abnormal posturing, Assess/monitor neurologic status, Assess/monitor VS per unit standards & prn, Call/Report variances in assessments to provider, Collaborate w/ provider to implement appropriate guidelines, Collaborate with provider re: medication regime, Keep patient's head & body in good alignment, Maintain HOB at least 30 deg, Maintain normothermia, report temp >101.5 F, Maintain patient safety if unsteady gait, Monitor Fluid & Electrolytes, Serum Osmolarity, Monitor for headaches, nausea, vomiting, Monitor speech fluency, aphasia, word finding difficulty, Physical assessment per unit standards, Teach pt/caregiver discharge plan & follow up care, Teach pt/caregiver on plan of care, treatment, s/s & meds, Assess pt using NIHSS scale on admit & D/C, DVT prophylaxis as ordered BH Goals/Interventions, Neurological Yes Neurological, Problem Start 10/31/2023 8:00 Reviewed plan with, Neurological Patient Patient Progression, Neurological Pt progressing according to plan . Nursing Data Neurological Data. : Neurological Data. 11/15/2023 8:00 EST Neurological Symptoms Back pain, Weakness or loss of muscle strength Level of Consciousness Full Consciousness Orientated to person, place, time Person, Place, Time, Event Facial Symmetry Intact Characteristics of Speech Clear and normal Swallowing Difficulty None Strength LUE 5-Active movement against gravity & full resistance Strength RUE 5-Active movement against gravity & full resistance Strength LLE 3-Active movement against gravity Strength RLE 5-Active movement against gravity & full resistance Tone LUE Normal Tone RUE Normal Tone LLE Normal Tone RLE Normal Sensation LUE Intact Sensation RUE Intact Sensation LLE Intact Sensation RLE Intact Movement LUE Spontaneous Movement RUE Spontaneous Movement LLE Spontaneous Movement RLE Spontaneous Gait Unable to assess Response Eye Opening Spontaneously Motor Response-Adult Obeys commands Verbal Response-Adult Oriented and converses Kb Coma Score 15 Pain Location Hip, left, Leg, left 1 - 10 Pain Scale Score 8 Pain Interventions Pharmacological, PRN medication, Repositioning, Rest Neuro WNL except . Evaluation Pt alert, oriented x 4, can be forgetful. Speech clear, language appropriate. Follows commands. Swallow intact, takes pills whole without difficulty. Moves all extremities spontaneous to command fullstrength except for LLE d/t hip pain. Sensation intact. No SOB reported or observed, denies chest pain, on room air. Denies numbness/tingling, MCMANUS, dizziness, or visual disturbances. Reports 9/10 painin L hip down L leg, prn PO Dilaudid given with some relief, pt states it only last about 2 hours. +BS x 4 quadrants, abdomen soft, non-tender. Last BM 11/13, pt refused bowel meds. Voiding clear yellow urine in urinal. Skin intact, blanchable redness on coccyx. Safety precautions maintained, call schilling within reach and instructed on use. Bed in lowest, locked position, alarmed. See CIS for full biophysical.. * Andrey VILLA, Abigail: PERFORM, MODIFY, SIGN, VERIFY Event Display: Progress Note Hospital Authored Date: [id number] Patient: HARMAN DAMIAN Age: 58 years Sex: Male : 1965 Associated Diagnoses: None Author: Andrey VILLA, Abigail Findings Problem Related to Alteration in Neurological : Alteration in Neurological Function/new 11/15/2023 0:00 EST Alteration in Neuro status Related to Acute Stroke (CVA), Other: right ICA stenosis s/p stent 11/06 Goals & Outcomes, Neurological Lab studies/diagnostic tests within pt specific limits, Pt is safe with transfers & activities, Pt will be hemodynamically stable, Pt will be Neurologically stable, Pt will remain free from injury, Pt will resume/maintain adequate cardiac output, Pt will stateimportance of adhering to medication regime, Pt/caregiver will receive psychosocial support as needed, Pt/caregiver will state strategies to reduce risk factors, Pt/caregiver will state understandingof disease process, Pt/caregiver will state understanding of plan/goals of care Interventions, Neurological Assess/monitor for abnormal posturing, Assess/monitor neurologic status, Assess/monitor VS per unit standards & prn, Call/Report variances in assessments to provider, Collaborate w/ provider to implement appropriate guidelines, Collaborate with provider re: medication regime, Document & Monitor O2 Sats; Administer O2 as ordered, Emergency airway equipment at bedside, Identify psychosocial issues related to diagnosis/illness, If no bowel movement in 3 days activate bowel regime, [place] alternate means of communication, Keep patient's head & body in good alignment, Maintain HOB at least 30 deg, Maintain normothermia, report temp >101.5 F, Maintainpatient safety if unsteady gait, Maintain strict intake & output, Monitor Fluid & Electrolytes, Serum Osmolarity, Monitor for headaches, nausea, vomiting, Monitor speech fluency, aphasia, word finding difficulty, Physical assessment per unit standards, Provide emotional support to Pt/caregiver, Teach & encourage deep breath & cough exercises, Teach and encourage use of Incentive spirometer, Teach pt/caregiver on plan of care, treatment, s/s & meds, Teach pt/caregiver on use o f pain scale Goals/Interventions, Neurological Yes Neurological, Problem Start 10/31/2023 8:00 Reviewed plan with, Neurological Patient Patient Progression, Neurological Pt progressing according to plan . Nursing Data Neurological Data. : Neurological Data. 11/14/2023 21:05 EST Tongue Disposition Midline Neurological Symptoms Tremors, Weakness or loss of muscle strength Level of Consciousness Full Consciousness Orientated to person, place, time Person, Place, Time, Event Facial Symmetry Intact Characteristics of Speech Clear and normal Swallowing Difficulty None Pupil description, left Regular Pupil description, right Regular Pupil reaction, left Brisk Pupil reaction, right Brisk Strength LUE 4-Active movement against gravity & some resistance Strength RUE 4-Active movement against gravity & some resistance Strength LLE 3-Active movement against gravity Strength RLE 4-Active movement against gravity & some resistance Tone LUE Normal Tone RUE Normal Tone LLE Normal Tone RLE Normal Sensation LUE Intact Sensation RUE Intact Sensation LLE Intact Sensation RLE Intact Movement LUE Spontaneous Movement RUE Spontaneous Movement LLE Spontaneous Movement RLE Spontaneous Gait Unable to assess Tremors Resting Response Eye Opening Spontaneously Motor Response-Adult Obeys commands Verbal Response-Adult Oriented and converses Kb Coma Score 15 Neurological Comments forgetful Pain Interventions Pharmacological, PRN medication, Repositioning, Rest Pain relief acceptable Yes Neuro WNL except Eyes and Movements Conjugate gaze: Move in same direction at same speed Headache None Swallow - Neuro Normal . Evaluation A&Ox3-4. Forgetful. Able to make needs known and follow commands. Speech clear, PERRL, face symmetric. No c/o MCMANUS, n/v, dizziness, tingling. TRAYLOR LLE 3/5 all other extremities 4/5. Pt c/o LLE pain,scheduled meds and Dilaudid administered with positive effect. SV in urinal. Last BM 11/13. Bed in lowest position, call light within reach, bed alarm on. Safety maintained. See CIS for more informatio n. . * Starla Chavarria DO: MODIFY, MODIFY, MODIFY, MODIFY, PERFORM Event Display: Progress Note Hospital Authored Date: Patient: ??HARMAN DAMIAN ? Age:??58 Years?Sex:??Male?:??1965?? Subjective No overnight events. ?? This morning, he continues to feel better. His leg pain is controlled with his current pain regimen. He has had no further fevers.??He denies any chest pain, shortness of breath, abdominal pain, nausea, vomiting. Review of Systems Constitutional:??no fever Respiratory:??No shortness of breath or cough Cardiovascular:??No chest pain or palpitations Gastrointestinal:??No nausea, vomiting or diarrhea. No abdominal pain Neurologic:??No headache or??dizziness MSK: left hip/leg pain Allergies Allergies ?(Active and Proposed Allergies Only) Toradol? (Severity: Unknown severity, Onset: Unknown) ? 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 Past Surgical History ORIF - Open reduction and internal fixation of fracture ? Social History Alcohol Details:??Use: Past. ??Frequency: Daily. ??Type: Beer. ??Other: reports 6 months sober. Substance Abuse Details:??Use: Past. ??Type: Heroin. Tobacco Details:??Use: 10 or more cigarettes (1/2 pack or more)/day in last 30 days. ? Family History No positive family history reported. ? Objective Measurements?? Height: 180.34 cm (11/11/23) Weight: 82.1 kg (11/06/23) Body Mass Index:??29.27 kg/m2??High (10/31/23) ? Vital Signs?? Temperature: 97.5 DegF (11/14/23 15:00:00) Temperature Route: Temporal (11/14/23 15:00:00) Pulse Rate: 62 bpm (11/14/23 15:42:00) Respiratory Rate: 18 br/min (11/14/23 15:42:00) Systolic Blood Pressure: 104 mm Hg (11/14/23 15:42:00) Diastolic Blood Pressure:??54 mm Hg??Low (11/14/23 15:42:00) Blood pressure sites: Arm, left (11/14/23 15:00:00) Pulse Pressure: 34 mm Hg (11/14/23 15:00:00) Oxygen Saturation: 95 % (11/14/23 15:00:00) Mode of Delivery (Oxygen): Room air (11/14/23 15:00:00) Early Warning Score: 9 (11/14/23 16:20:23) ? Intake/Output? 10/30 06:48 11/14 07:00 11/13 07:00 11/12 07:00 11/11 07:00 ?? 11/14 16:40 11/14 16:40 11/14 06:59 11/13 06:59 11/12 06:59 Intake ?83703 ?540 ? 1560 ?100 ?240 Output ?97989 ?425 ? 1875 ?850 ? 1000 Net Total ? -34775 ?115 ? -315 ? -750 ? -760 ? Urine Count ?7 ?0 ?1 ?3 ?2 ? Physical Exam Constitutional: Alert, in no distress. Mental Status: Oriented to person, place and time. Head: Normocephalic. Eyes: Extraocular muscles intact. Neck: Supple, Full range of motion. Respiratory: Clear to auscultation. No wheezing, rales or rhonchi. Cardiovascular: S1 S2 regular. No murmurs, rubs or gallops. Gastrointestinal: Abdomen soft, non-tender, non-distended. Neurologic: Cranial nerves II-XII grossly intact. No focal neurological deficits. Moves all extremities spontaneously. Skin: no rashes or lesions Musculoskeletal: left hip tenderness. Is able to wiggle toes. Psychiatric: Normal mood and affect _ Inpatient Medications Medications (32) Active SCHEDULED: (23) Acetaminophen 325 mg Tablet (Tylenol 325 mg oral tablet) ??650 mg, By Mouth, Every 8 hours Amoxicillin 250 mg Capsule (Amoxicillin Capsule) ??1,000 mg, By Mouth, 3 times a day Aspirin 81 mg EC Tablet (aspirin 81 mg oral delayed release tablet) ??81 mg, By Mouth, Daily Bictegravir/Emtricitabine/Tenofovir 50 mg-200 mg-25 mg Tablet (Biktarvy Tablet) ??1 tablet, By Mouth, Daily Breo Ellipta 100 mcg / 25 mcg Inhaler (Breo Ellipta 100 mcg-25 mcg Inhaler) ??1 puffs, Inhalation, Daily buprenorphine-naloxone 8 mg-2 mg Film (Suboxone 8 mg-2 mg Sublingual Film) ??1 film, Sublingual, 3 times a day BuPROPion 150 mg SR Tablet (BuPROpion SR Tablet) ??150 mg, By Mouth, 2 times a day Clopidogrel 75 mg Tablet (clopidogrel 75 mg oral tablet) ??75 mg, By Mouth, Daily Enoxaparin 40 mg Inj (Enoxaparin Inj) ??40 mg 0.4 mL, Subcutaneous Injection, Daily Folic Acid 1 mg Tablet (folic acid 1 mg oral tablet) ??1 mg, By Mouth, Daily Gabapentin 400 mg Capsule (Neurontin 400 mg oral capsule) ??800 mg, By Mouth, 3 times a day Insulin Lispro 100 units/mL Inj (3mL) (Insulin LISPRO Sliding Scale) ??2-10 units, Subcutaneous Injection, 3 times a day before meals Lidocaine 5% Topical Patch (Lidocaine 5% Patch) ??1 each, Topically, Daily Midodrine 5 mg Tablet (midodrine 5 mg oral tablet) ??5 mg, By Mouth, 3 times a day Multivitamin Therapeutic / Minerals Tablet (Multivit Therapeutic/Minerals Tablet) ??1 tablet, By Mouth, Daily NaCl 0.9% Flush 3ml (NaCL 0.9% Flush) ??3 mL, IV Push, Every 8 hours Nicotine 21 mg / 24 hour Patch (Nicotine Topical) ??21 mg, Topically, Daily Pantoprazole 40 mg EC Tablet (Protonix 40 mg oral delayed release tablet) ??40 mg, By Mouth, Daily Pyridoxine 50 mg Tablet (pyridoxine 50 mg oral tablet) ??50 mg, By Mouth, Daily Remove Patch (Remove ??Patch) ??1 each, Topically, Daily Remove Patch (Remove Lidocaine Patch) ??1 each, Topically, Daily at bedtime Thiamine 100 mg Tablet (thiamine 100 mg oral tablet) ??100 mg, By Mouth, Daily Urea 15 Gm Powder (Urea Powder) ??15 Gm, By Mouth, 2 times a day CONTINUOUS: (0) PRN: (9) BusPIRone 10 mg Tablet (busPIRone 10 mg oral tablet) ??10 mg, By Mouth, 2 times a day Cyclobenzaprine 10 mg Tablet (cyclobenzaprine 10 mg oral tablet) ??10 mg, By Mouth, 3 times a day Docusate Sodium 100 mg Capsule (Docusate Sodium Capsule) ??100 mg 1 capsule, By Mouth, 2 times a day HYDROmorphone 4 mg Tablet (HYDROmorphone 2 mg oral tablet) ??4 mg, By Mouth, Every 4 hours HydrOXYzine Pamoate 25mg Capsule (hydrOXYzine pamoate 25 mg oral capsule) ??50 mg, By Mouth, Every 6 hours Melatonin 3 mg Tablet (Melatonin Tablet) ??3 mg, By Mouth, Daily at bedtime NaCl 0.9% Flush 3ml (NaCL 0.9% Flush) ??3 mL, IV Push, Every 8 hours Quetiapine 100 mg Tablet (SEROquel 100 mg oral tablet) ??300 mg, By Mouth, Daily at bedtime Senna Tablet ??8.6 mg 1 tablet, By Mouth, 2 times a day ? Durable Medical Equipment Discharge recommendations: Rehab (11/02/23) Ambulatory devices needed: None (11/14/23) ? Results Recent Labs BLOOD COUNT & DIFF WBC 8.9 k/mm3 ()?? 11/14/2023 00:12 RBC 3.55 m/mm3 (Low)?? 11/14/2023 00:12 Hgb 11.4 Gm/dL (Low)?? 11/14/2023 00:12 Hct 33.2 % (Low)?? 11/14/2023 00:12 MCV 93.5 femtoliters ()?? 11/14/2023 00:12 MCH 32.1 pg ()?? 11/14/2023 00:12 MCHC 34.3 g/dL ()?? 11/14/2023 00:12 Platelet Count 131 k/mm3 (Low)?? 11/14/2023 00:12 RDW-SD 51.1 femtoliters (High)?? 11/14/2023 00:12 MPV 13.0 femtoliters (High)?? 11/14/2023 00:12 Nucleated RBC (Automated) 0.0 #/100 WBC'S ()?? 11/14/2023 00:12 Abs. NRBC 0.0 k/mm3 ()?? 11/14/2023 00:12 ?? CHEM GENERAL Sodium 128 mmol/L (Low)?? 11/14/2023 00:12 Potassium 4.1 mmol/L ()?? 11/14/2023 00:12 Chloride 96 mmol/L (Low)?? 11/14/2023 00:12 Bicarbonate Level 21 mmol/L (Low)?? 11/14/2023 00:12 Anion Gap 11 ()?? 11/14/2023 00:12 Glucose Level 93 mg/dL ()?? 11/14/2023 00:12 Glucose, POC 112 mg/dL (High)?? 11/14/2023 15:55 BUN 17 mg/dL ()?? 11/14/2023 00:12 Creatinine-Blood 0.8 mg/dL ()?? 11/14/2023 00:12 Estimated GFR Creatinine 102 ML/MIN/1.73 M2 ()?? 11/14/2023 00:12 Calcium 7.6 mg/dL (Low)?? 11/14/2023 00:12 ? Assessment/Plan Harman Damian is a 58-year-old man with a past medical history of depression with prior SI, polysubstance use (alcohol, heroin, cocaine, opiates, marijuana, tobacco) opiate use disorder in remission, HIV on ART, COPD, hypertension, prediabetes, chronic back pain, history of bilateral hip replacements who presented from a detention after a mechanical fall followed by dysarthria and encephalopathy. Initial CT negative; MRI brain??with punctate focus of questionable abnormal focus; Cerebral angio??with ??ELKE 90% stenosis, S/P right ICA stent 11/06.??He was also??found to have left periprosthetic fracture in the lateral intertrochanteric region with conservative management recommended.??His course has been complicated by UTI and now Ecoli bacteremia. ?? E Coli Bacteremia: UTI: Febrile to a Tmax of 101.3 with??leukocytosis of 19,000, patient was started on vancomycin and Zosyn. UA with 3+leukocytes, WBCs and heavy bacteria. Urine culture with 50-100,000 Ecoli. Blood culturenow growing Ecoli, resistant to Bactrim otherwise pansusceptible. ?? Plan -Transition to Amoxicillin 1000mg TID (11/12- ) -Continue to monitor for fever curve ?? Hyponatremia: stable pt appears euvolemic.??Urine studies indicate SIADH. Is not drinking excessive fluids. Sodium without any improvement, 128 today. ?? Plan: -Start urea 15g BID -fluid restriction -trend Na ?? Fall (W19.XXXA) L periprosthetic fracture in the lateral intertrochanteric region of femur Likely mechanical in nature as pt able to recall event pretty well. Ortho following??recommending nonsurgical option, to continue working with PT??as benefits of surgery outweigh risks. Hepatic encephalopathy probably contributing to this, but with aphasia, TIA/CVA could have contributed as well ?? Plan: - Scheduled Tylenol for pain - hydromorphone??2 mg tabs every 4 hours for severe pain. - Lidocaine patches - PT??following - rec rehab once medically cleared ? Carotid stenosis, right (I65.21):??- s/p stenting on 11/06 Aphasia of unknown origin (R47.01) -resolved Word finding difficulty (R47.89) resolved- ??Subacute, pt reports started 2 mos prior to presentation in regards to word finding difficulty ??However, noted to have aphasia after the fall ??Currently back to baseline without any aphasia ??Given quick recovery, TIA is on the ddx ??MRI brain (11/02) - Punctate focus of questionable abnormal effusion in the lateral posterior rightfrontal cortex which could be artifactual or may represent punctate focus of ischemia. ??The right internal carotid artery origin has 90% stenosis by NASCET criteria. Neuro thinks possible right frontal infarct in the setting of right ICA stenosis - S/p ELKE stent on 11/06 complicated by vasovagal hypotension, now resolve. LDL was 55 on 10/30, chol largely WNL, HDL low at 31. Patient reports feeling much better,??speaking clear sentences,??states he has no difficulty with speech. ?? Plan: -??Continue aspirin??81 and 75 mg of Plavix daily - Monitor for seizure episodes -??Neuro-checks every 4 hrs - follow-up with Dr. Melo in clinic - goal LDL < 70, A1C < 7, BP < 120/80 ?? Hypotension following ICA Stent -resolved Vasovagal syndrome (R55):?? resolved Patient was hypotensive following ICA stent??placement, received 250 cc bolus??and postop care??with improvement, however on the floor the patient's blood pressure??was persistently low, yang of 68/42,??this slowly improved with??IV fluid resuscitation of 1 L,??[employer] nurse was present to help place a second IV, EKG was done??showing sinus bradycardia??heart rate 54,??patient's temperature was??approximately 97 via axillary??check, he was??passively rewarmed with??warm blankets.?? Blood pressure improving to 119/65.??Right fem access with mild tenderness and no sign of??hematoma.??Possibly vasovagal syndrome,??versus postop changes after ICA stent??opening. Also poor PO intakebeing NPO overnight. ?? Plan:?? -Continue midodrine 5 mg TID??(hold for SBP??>100 AND MAP 65 or greater) ?? Malnutrition (E46): ??Patient has notable temporal wasting, thin extremities with a protuberant abdomen has not been eating well, has food insecurity ?Plan: ??? Nutrition consult, appreciate rec ??? folic acid, pyridoxine, thiamine ordered ?? Alcohol use disorder in remission (F10.91): - ??Patient reports he is abstained from alcohol for the last 7 months, goes to , continue to monitor and support, can consider addiction consult later in hospital course if patient is interested in getting connected to community resources ?? Type 2 diabetes mellitus (E11.9): - ??Hemoglobin A1c on admission 7.4. Home regimen: Metformin ?Plan: ??? Hold metformin ??? POC 3 times daily, lispro sliding scale - F/u with PCP for DM management ?? Liver disease (K76.9): - Elevated transaminase level (R74.01): - Hepatic encephalopathy (K76.82): - resolved Asterixis (R27.8): - ??Patient noted to have elevated transaminases as well as an elevated ammonia level and dysmetria with asterixis on exam. CT abd/pelvis shows irregular hepatic contour. LFT elevations may be secondary to underlying cirrhosis possibly secondary to history of alcohol use disorder, may be secondary to medication such as his antiretrovirals, his acetaminophen level was undetected on admission and he had no reports of other toxic ingestions. ??Completed couple days of lactulose with good response ?? Plan: ??? Monitor clinically ?? GERD (gastroesophageal reflux disease) (K21.9): Continue home PPI ?? COPD without exacerbation (J44.9): - Patient reports history of COPD, no oxygen at home, has a prescription for an Incruse inhaler at home has not had recent exacerbation Plan:??Breo while admitted ?? Tobacco use disorder (F17.200): - ??Patient smokes usually 3 to 4 cigarettes up to half pack a day, requests patch ??Plan: Nicotine replacement patch ordered, counseled patient on tobacco cessation ?? HIV disease (B20): - ??On Biktarvy. Appears to have been feeling it consistently. ID pharmacy reviewed and is okay to continue. CD4 count was 207??likely??falsely low per ID. ?Plan: -Continue Biktarvy - F/u CD4??counts/immunology panel ? Opioid use disorder in remission (F11.91): - ??Prescriber is through [facility] ?Plan:??Continue Suboxone 8???2 3 times daily ?? Depression with anxiety (F41.8): ???Continue home psych regimen including bupropion, BuSpar but only as needed (reduced from home dose), Seroquel 30 mg as needed at bedtime for insomnia, hydroxyzine as needed for anxiety ?? Rash (R21) Patient has a small rash on the lateral aspect of his left hip with the appearance of resolving shingles potentially, no open lesions ??Plan: Continue to monitor ?? Quality Measures: ??Code status: Full ??Diet: DM diet ??VTE prophylaxis:Lovenox 40mg daily ?? OMN:??Ecoli bacteremia, hyponatremia ?? Discussed case with attending physician, Dr. David Chavraria, PGY 4 Med-Peds? * Yassine Hernandez MD: PERFORM Event Display: Progress Note Hospital Authored Date: [id number] Attending Attestation: I have??seen and evaluated??HARMAN DAMIAN, on 11/14/23. ??I have??reviewed thepatient???s medical history, findings on examination, diagnosis, and treatment. I have discussed the case and its management with the resident and agree with the findings and plan as documented in the resident???s note.? _ ? Consult note * Vicente Campbell MD: PERFORM Event Display: Consultation Note Authored Date: [id number] Patient: ??HARMAN DAMIAN ? Age:??58 Years?Sex:??Male?:??1965?? Provider Clinical Summary Reason for consult: HIV and risk for infection??after orthopedic surgery History of Present Illness The patient is a pleasant 58-year-old gentleman with a past medical history of HIV diagnosed in 1984 who is currently being followed at [facility] with excellent compliance.?? His most recent CD4 count at [facility] was 357/21% with a viral load of 129 on 09/27 when he was last seen by them.?? Previously his HIV viral load was undetectable as far back as 2001 as per his HIV nurse director of casework department.?? The patient was admitted to [facility] on 10/30 [facility] with a mechanical fall followed by dysarthria and encephalopathy.?? He was found to have a left periprosthetic fracture in the lateral intertrochanteric region of the femur for which orthopedics was consulted.?? They requested that the patient have a risk assessment for his risk of infection should he require operative management.?? A CD4 count was done and was found to be 207/21% yesterday.?? He is antiretrovirals are being continued and an infectious disease consult was requested tocomment on risk of infection. Review of Systems All other review of systems fully reviewed and negative aside from what is listed above in the HPI.No fatigue, weight loss, blurred vision, hallucinations, chest pain, nausea, vomiting, diarrhea, headache, blurred vision. Physical Exam Vitals & Measurements Vital Signs?? Temperature: 98.3 DegF (11/09/23 07:15:00) Temperature Route: Temporal (11/09/23 07:15:00) Pulse Rate: 55 bpm (11/09/23 07:15:00) Heart Rate Monitored: 65 bpm (11/08/23 14:00:00) Respiratory Rate: 16 br/min (11/09/23 12:22:00) Respiratory Rate: 16 br/min (11/09/23 12:22:00) Vented: No (11/08/23 14:00:00) Systolic Blood Pressure: 91 mm Hg (11/09/23 07:15:00) Diastolic Blood Pressure: 60 mm Hg (11/09/23 07:15:00) Blood pressure sites: Arm, left (11/09/23 07:15:00) Mean Arterial Pressure: 70 mm Hg (11/09/23 07:15:00) Pulse Pressure: 31 mm Hg (11/09/23 07:15:00) Oxygen Saturation: 98 % (11/09/23 07:15:00) Mode of Delivery (Oxygen): Room air (11/09/23 07:15:00) Early Warning Score: 4 (11/09/23 12:23:48) GENERAL: In no acute distress HEENT: Anicteric, no subconjunctival petechiae, moist oral mucosa without lesions or thrush NECK: Neck supple, without cervical lymphadenopathy CARDIOVASCULAR: Regular rate and rhythm. ??Not able to appreciate any murmurs, rubs, or gallops. ??No peripheral edema.?? RESPIRATORY: Lungs clear to auscultation GASTROINTESTINAL: Non-distended, normoactive bowel sounds, non-tender GENITOURINARY: No CVAT MUSCULOSKELETAL:??Tender to the??upper left??leg??on the lateral aspect SKIN: ??No diffuse rash present, no stigmata of infective endocarditis PSYCHIATRIC: No signs of hallucinations or delusions NEUROLOGICAL: A&Ox3, grossly intact LINES: PIV Assessment/Plan Assessment:??Impression/Plan: This is a 58-year-old gentleman with a history of well-controlled HIVon Biktarvy followed by [facility]. His HIV viral load was 129 with a CD4 count of 357/21% on 09/27/2023 at [facility] and he claims 100% compliance. He was admitted with a mechanical fall and periprosthetic left hip infection and an infectious disease consult was requested toassess his risk of infection. The patient had a CD4 count done in- house and was found to be 207/21%but this is a falsely lower CD4 count given that he is acutely admitted with multiple medical issues and this can happen in such patients. His CD4 count percentage remains preserved which is a more re liable predictor of overall immune status than an absolute CD4 count. His risk of infection post orthopedic surgery is the same as someone without HIV given his CD4 count of over 300. No need for OI prophylaxis. ?? 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 Hypertension Major depressive disorder Nicotine dependence Opiate dependence Suicidal ideation Procedure/Surgical History ???ORIF - Open reduction and internal fixation of fracture Medications Inpatient aspirin 81 mg oral delayed release tablet, 81 mg, By Mouth, Daily Biktarvy Tablet, 1 tablet, By Mouth, Daily Breo Ellipta 100 mcg-25 mcg Inhaler, 1 puffs, Inhalation, Daily BuPROpion SR Tablet, 150 mg, By Mouth, 2 times a day busPIRone 10 mg oral tablet, 10 mg, By Mouth, 2 times a day, PRN clopidogrel 75 mg oral tablet, 75 mg, By Mouth, Daily cyclobenzaprine 10 mg oral tablet, 10 mg, By Mouth, 3 times a day, PRN Dilaudid Inj, 1 mg= 1 mL, IV Push Slowly, Every 4 hours, PRN Docusate Sodium Capsule, 100 mg= 1 capsule, By Mouth, 2 times a day, PRN Enoxaparin Inj, 40 mg= 0.4 mL, Subcutaneous Injection, Daily folic acid 1 mg oral tablet, 1 mg, By Mouth, Daily hydrOXYzine pamoate 25 mg oral capsule, 50 mg, By Mouth, Every 6 hours, PRN Insulin LISPRO Sliding Scale, 2-10 units, Subcutaneous Injection, 3 times a day before meals Melatonin Tablet, 3 mg, By Mouth, Daily at bedtime, PRN midodrine 5 mg oral tablet, 10 mg, By Mouth, 3 times a day MiraLax Powder, 17 Gm= 1 pack/packet, By Mouth, Daily, PRN Multivit Therapeutic/Minerals Tablet, 1 tablet, By Mouth, Daily NaCL 0.9% Flush, 3 mL, IV Push, Every 8 hours NaCL 0.9% Flush, 3 mL, IV Push, Every 8 hours, PRN Neurontin 400 mg oral capsule, 800 mg, By Mouth, 3 times a day Nicotine Topical, 21 mg, Topically, Daily oxyCODONE 5 mg oral tablet, 5 mg, By Mouth, Every 6 hours, PRN Protonix 40 mg oral delayed release tablet, 40 mg, By Mouth, Daily pyridoxine 50 mg oral tablet, 50 mg, By Mouth, Daily Remove Patch, 1 each, Topically, Daily Senna Tablet, 8.6 mg= 1 tablet, By Mouth, 2 times a day, PRN SEROquel 100 mg oral tablet, 300 mg, By Mouth, Daily at bedtime, PRN Suboxone 8 mg-2 mg Sublingual Film, 1 film, Sublingual, 3 times a day thiamine 100 mg oral tablet, 100 mg, By Mouth, Daily Tylenol 325 mg oral tablet, 650 mg, By Mouth, Every 8 hours, PRN Home Biktarvy oral tablet, 1 tablet, By Mouth, Daily busPIRone 10 mg oral tablet, 10 mg= 1 tablet, By Mouth, 2 times a day busPIRone 15 mg oral tablet, 15 mg= 1 tablet, By Mouth, 2 times a day cyclobenzaprine 10 mg oral tablet, 10 mg= 1 tablet, By Mouth, 3 times a day, PRN DOK sodium 100 mg oral capsule, 100 mg= 1 capsule, By Mouth, 2 times a day, PRN hydrOXYzine pamoate 50 mg oral capsule, 50 mg= 1 capsule, By Mouth, Every 6 hours, PRN ibuprofen 600 mg oral tablet, 600 mg= 1 tablet, By Mouth, 3 times a day, PRN Incruse Ellipta 62.5 mcg/inh inhalation powder, 1 puffs, Inhalation, Every 24 hours melatonin 3 mg oral tablet, 3 mg= 1 tablet, By Mouth, Daily at bedtime, PRN metFORMIN 500 mg oral tablet, extended release, 500 mg= 1 tablet, By Mouth, Daily MiraLax oral powder for reconstitution, 17 Gm, By Mouth, Daily, PRN Neurontin 800 mg oral tablet, 800 mg= 1 tablet, By Mouth, 3 times a day prazosin 1 mg oral capsule, 1 mg= 1 capsule, By Mouth, Daily at bedtime Protonix 40 mg oral delayed release tablet, 40 mg= 1 tablet, By Mouth, Daily SEROquel 300 mg oral tablet, 300 mg= 1 tablet, By Mouth, Daily at bedtime, PRN Suboxone 8 mg-2 mg sublingual film, 1 film, Sublingual, 3 times a day Tylenol 325 mg oral tablet, 1 - 2 tablet, By Mouth, Every 4 hours, PRN Wellbutrin SR 150 mg/12 hours oral tablet, extended release, 150 mg= 1 tablet, By Mouth, 2 times a day Antibiotic History Active Antibiotics Calendar Day Last Administered First Administered bictegravir/emtricitabine/tenofovir??1 tablet, By Mouth, Daily ? 11 11/08/2023 08:34 10/30/2023 21:31 ? Allergies Toradol Social History Alcohol Use: Past. Frequency: Daily. Type: Beer. Other: reports 6 months sober. Substance Abuse Use: Past. Type: Heroin. Tobacco Use: 10 or more cigarettes (1/2 pack or more)/day in last 30 days. Family History Bleeding disorder: Negative: Other. DVT - Deep vein thrombosis: Negative: Other. Pulmonary embolism: Negative: Other. Immunizations Vaccine Date Status influenza virus vaccine, inactivated 10/31/2023 Given influenza virus vaccine, inactivated 07/26/2015 Given Twinrix (oldterm) 01/01/2014 Given Comments : Booster, double dose in divided doses both arms pneumococcal 13-valent vaccine 01/02/2013 Given tetanus/diphtheria/pertussis, acel(Tdap) 07/11/2012 Given Pneumovax 23 (oldterm) 03/16/2010 Given Comments : pt states received at [place] [facility] Results Test Name Test Result Date/Time WBC 7.7 k/mm3 11/08/2023 02:36 EST Hgb 12.2 Gm/dL 11/08/2023 02:36 EST Platelet Count 135 k/mm3 11/08/2023 02:36 EST Sodium 137 mmol/L 11/08/2023 02:36 EST Potassium 4.8 mmol/L 11/08/2023 02:36 EST Glucose Level 69 mg/dL 11/08/2023 02:36 EST BUN 17 mg/dL 11/08/2023 02:36 EST Creatinine-Blood 1.0 mg/dL 11/08/2023 02:36 EST Estimated GFR Creatinine 92 ML/MIN/1.73 M2 11/08/2023 02:36 EST * Debbie Cherry: PERFORM, MODIFY, MODIFY, MODIFY, MODIFY, MODIFY Event Display: Consultation Note Authored Date: [id number] Patient: ??HARMAN DAMIAN ? Age:??58 Years?Sex:??Male?:??1965?? Chief Complaint/Reason for Consult Left??total hip arthroplasty periprosthetic fracture ?? This consult was requested by Dr. Watson under the supervision of Dr. Garcia of the [facility] Medicine Department. History of Present Illness Harman is a 58-year-old man with a past medical history of depression with prior SI, polysubstance use (alcohol, heroin, cocaine, opiates, marijuana, tobacco) opiate use disorder in remission on methadone, HIV on ART, COPD, hypertension, prediabetes, chronic back pain, history of bilateral hip replacements who is admitted to [facility] [place] stroke work up after a fall at his [facility] on 10[facility]30[facility]23. Reports that he was??walking in the hallway??early in the morning when he slipped and fell. ??He has not been able to ambulate since the fall. ??He had immediate left knee and??hip pain. ??He denies numbness and paresthesias. Radiographs obtained by the medicine team demonstrates left periprosthetic??total hip fracture.?Orthopedic trauma surgery service consulted for further??evaluation and treatment recommendations. Review of Systems Denies fevers and chills. Denies chest pain. Denies shortness??of breath.?Denies other injuries or painful joints. ??All others as per HPI Physical Exam Vitals & Measurements T:??97.7?F?? HR:??75??(Peripheral)?? RR:??20?? BP:??135/82?? SpO2:??96%?? HT:??180.34??cm?? WT:??95.2??kg?? BMI:??29.27?? General: Patient evaluated in??hospital stretcher, student nurse at bedside. He is??in no acute distress, alert, oriented and cooperative with exam.? HEENT: Atraumatic, normocephalic Cardiac: Per??medicine provider Pulmonary: Per??medicine??provider Abdomen: Per??medicine provider ?? Right lower extremity: Full, supple, non-painful range of motion of the hip, knee, foot and ankle. ??No discomfort with log roll maneuver.?Appreciate??leg length discrepancy with right leg shorterthan contralateral lower extremity, per patient leg length discrepancy is chronic. ??No tenderness to palpation. Calf supple and nontender. ??Active dorsiflexion and plantar flexion strength. ??Palpable DP and PT pulses. Sensation grossly intact to light touch. ?? Left lower extremity: Limited, guarded,??painful??hip??flexion and extension. ??Moderate discomfortwith logroll maneuver.?Limited, guarded, non- painful??range of motion??of the knee however patient notes discomfort??at the??hip.?Full, supple, non-painful range of motion of the foot and ankle. ??Appreciate leg length discrepancy with left leg longer than contralateral lower extremity, patient reports that leg length discrepancy is chronic.?Exquisite tenderness to palpation about the lateral aspect of the hip. ??Moderate tenderness to palpation about the lateral thigh??and anterior knee. ??Mild edema about the hip laterally.?No open wounds or abrasions??appreciated. ??Calf suppleand nontender.?Active dorsiflexion and plantarflexion strength.?Palpable DP and PT pulses. Sensation grossly intact to light touch. Assessment/Plan Impression: 1.) ??Left??periprosthetic total hip arthroplasty fracture ?? Plan: Patient is admitted to the medical service. ??Orthopedics will follow.?Recommend elevation, pain control and DVT prophylaxis.?Discussed??precaution of no active??abduction??for??6 weeks??on the left lower extremity.?? Discussed??strict nonweightbearing??on the left lower extremity for??6 weeks.?? Case will be further discussed with orthopedic surgery attending regarding operative vs non-operative management. This was discussed with the patient who voiced understanding. ??Questions are asked and answered.? Case will be discussed with??Dr Esqueda 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 Hypertension Major depressive disorder Nicotine dependence Opiate dependence Suicidal ideation Procedure/Surgical History ORIF Right medial malleolus by Dr. Hdez on 07/12/[address] Ramirez on 04/25/[address] Ramirez on 03/01/2022 Home Medications Acetaminophen: 1 - 2 tablet, By Mouth, Every 4 hours, PRN (Pain , Mild) bictegravir/emtricitabine/tenofovir: 1 tablet, By Mouth, Daily Buprenorphine-Naloxone: 1 film, Sublingual, 3 times a day BuPROpion: 150 mg = 1 tablet, By Mouth, 2 times a day BusPIRone: 15 mg = 1 tablet, By Mouth, 2 times a day, Total per dosin mg BusPIRone: 10 mg = 1 tablet, By Mouth, 2 times a day, Total per dosin mg Cyclobenzaprine: 10 mg = 1 tablet, By Mouth, 3 times a day, PRN (Spasm) Docusate: 100 mg = 1 capsule, By Mouth, 2 times a day, PRN (as needed for constipation) Gabapentin: 800 mg = 1 tablet, By Mouth, 3 times a day HydrOXYzine: 50 mg = 1 capsule, By Mouth, Every 6 hours, PRN (as needed for anxiety) Ibuprofen: 600 mg = 1 tablet, By Mouth, 3 times a day, PRN (Pain , Moderate) Melatonin: 3 mg = 1 tablet, By Mouth, Daily at bedtime, PRN (as needed for insomnia) Metformin: 500 mg = 1 tablet, By Mouth, Daily Pantoprazole: 40 mg = 1 tablet, By Mouth, Daily Polyethylene Glycol 3350: 17 Gm, By Mouth, Daily, PRN (Constipation) Prazosin: 1 mg = 1 capsule, By Mouth, Daily at bedtime Quetiapine: 300 mg = 1 tablet, By Mouth, Daily at bedtime, PRN (Sleep) umeclidinium: 1 puffs, Inhalation, Every 24 hours Allergies Toradol Social History Denies current alcohol,??marijuana and illicit drug use. ??He has been sober??for 7 months. ??He reports current tobacco use approximately 5 cigarettes/day down from 3 packs/day. ??He has been smoking tobacco for at least 35 years. ??He??lives at a fdc which has an elevator. ??He walks with a single-point cane at baseline. ??Does not work at this time. Family History Denies history of DVT, bleeding dyscrasias and adverse reaction to anesthesia.?? Radiology Radiographs of the left hip with pelvis reviewed by myself demonstrates bilateral total hip arthroplasties.?? Appreciate intact left total hip arthroplasty hardware out signs of loosening or failure.?? Appreciate oblique, nondisplaced lateral greater trochanter fracture. Right total hip arthroplasty appears intact without signs of loosening, fracture or dislocation. No additional fractures or dislocations appreciated. ?? Radiographs compared to left RON post-operative imaging obtained on 03/01/2022. Lab Results Labs Last 24 Hours BLOOD COUNT & DIFF ? Event Name?? Event Result?? Date/Time?? WBC 15 k/mm3??High 10/31/23 00:07:00 RBC 3.98 m/mm3??Low 10/31/23 00:07:00 Hgb 12.6 Gm/dL??Low 10/31/23 00:07:00 Hct 36 %??Low 10/31/23 00:07:00 MCV 90.5 femtoliters 10/31/23 00:07:00 MCH 31.7 pg 10/31/23 00:07:00 MCHC 35 g/dL 10/31/23 00:07:00 Platelet Count 109 k/mm3??Low 10/31/23 00:07:00 MPV 12.4 femtoliters 10/31/23 00:07:00 Nucleated RBC (Automated) 0 #/100 WBC'S 10/31/23 00:07:00 ? CHEM GENERAL ? Event Name?? Event Result?? Date/Time?? Sodium 131 mmol/L??Low 10/31/23 00:07:00 Chloride 97 mmol/L??Low 10/31/23 00:07:00 Bicarbonate Level 24 mmol/L 10/31/23 00:07:00 Anion Gap 10 10/31/23 00:07:00 Glucose Level 215 mg/dL??High 10/31/23 00:07:00 BUN 16 mg/dL 10/31/23 00:07:00 Creatinine-Blood 0.7 mg/dL 10/31/23 00:07:00 Calcium, Ionized pH Corrected 1.16 mmol/L 10/31/23 00:07:00 Phosphorus 4 mg/dL 10/31/23 00:07:00 Magnesium 1.9 mg/dL 10/31/23 00:07:00 Alkaline Phosphatase 283 units/L??High 10/31/23 00:07:00 AST (SGOT) 86 units/L??High 10/31/23 00:07:00 ALT (SGPT) 49 units/L??High 10/31/23 00:07:00 Bilirubin, Total 2.4 mg/dL??High 10/31/23 00:07:00 ? * Raphael Esqueda MD: PERFORM Event Display: Consultation Note Authored Date: Attending addendum,??imaging reviewed,??the position of the implant versus the??neck??has not changed versus operative and postop films, CT scan does not demonstrate any loosening or??displacement between the??prosthesis and the bone, nor is there any extension to the medial aspect. ??We therefore feel this is probably an isolated greater trochanter fracture, however if??pain fails to decrease over the next 2 weeks to the point where patient is unable to resume ambulation, may still consider possibility of??stabilization with a cable, or??hook plate construct. ??However in a slender patient these are oftentimes very symptomatic, and we can treat him closed??with avoiding active abduction, touchdown weightbearing this would certainly be preferable for him in the long run. * Raphael Esqueda MD: PERFORM Event Display: Consultation Note Authored Date: [id number] Plan: Closed treatment of left greater trochanter without manipulation, protected weightbearing, walker??no active abduction, do not think he needs an abduction brace at this point.?? Follow-up in 2 weeks for repeat films * Harinder ALBARRAN, Samuel: PERFORM, MODIFY, MODIFY, MODIFY, MODIFY, MODIFY Event Display: Consultation Note Authored Date: Patient: ??HARMAN DAMIAN ? Age:??58 Years?Sex:??Male?:??1965?? Telemedicine Service was provided using telemedicine Chief Complaint got up to go to bathroom at 1AM; had fall and then trouble speaking; LLE Reason For Visit STROKE?? History of Present Illness This is a 58yo with long time polysubstance abuse disorder, HIV, various other dependencies, now presents with fall, speech problems and left lower extremity weakness possible due to pain. ?? Review of Systems Constitutional:??No weight loss, fever, chills, weakness or fatigue. Allergy/Immune: Denies any??Eczema or hives Eyes:??No visual loss, blurred vision, double vision or yellow sclera ENT:??No hearing loss, sneezing, congestion, runny nose or sore throat. Respiratory:??No shortness of breath, cough or sputum production. Cardiovascular:??No chest pain, chest pressure or chest discomfort. No palpitations or pedal edema. Gastrointestinal:??No anorexia, nausea, vomiting or diarrhea. No abdominal pain or blood in stool. Genitourinary:??No burning micturition. No urinary frequency or incontinence. Neurologic:??No headache, dizziness, syncope, unilateral weakness, ataxia, numbness or tingling in the extremities. No change in bowel or bladder control. Musculoskeletal:??No muscle pain, back pain, joint pain or stiffness. Hematologic/Lymphatics:??No bleeding or bruising. No painful lymph nodes. Skin:??No rash or itching. Endocrine:??No reports of sweating. No cold or heat intolerance. No polyuria or polydipsia. Psychiatric:??No depression or anxiety. Physical Exam Vitals: HR 82 (regular); 96%?? 139/78; 98.3 oral; ?? General Medical Examination:?? GEN: NAD. Interactive. Well developed.?? HEENT: Normocephalic and atraumatic head; Neck: Supple. No carotid bruits COR: RRR CHEST: CTA ABDOMEN: soft, NT, ND Extr: Warm and well perfused, no evidence of edema, strong distal pulses.? Neuro:??Throughout he had jerky movements and muscle twitches affecting all regions of his body andall actions; this looked like a polymyoclonus; all responses were delayed and frequently started with a mumbling before a clear answer came out. ?? MENTAL STATUS: The patient was fully alert and oriented x 2 (not to time), and was following all instructions with some delay and with some suttering speech, but hadno right-left confusion. There wasusually some hesitancy and some mumbling in all of his expression, but he was able to say strings of words and phrases fluently; he comprehended simple commands; ?? CN II-XII: Visual plaza were full to confrontation. PERRL (4mm -> 3mm). There was no ptosis andthe EOM were intact without nystagmus or saccadic breakdown. Light-touch and temperature sensation on face was normal bilaterally. There was no facial asymmetry. The tongue and palate were midline with protrusion and elevation, respectively. There was mild dysarthria. ?? MOTOR: There was no pronator drift, fasciculations, myoclonus or tremor in UE; he was able to lift up his right leg against gravity; he could not lift up his left leg; when lifted up, he was grimassing of pain; he was able to wiggle his toes on the left side. ?? SENSATION: Diffusely intact to light touch. There is no evidence of extinction.? CEREBELLAR: The swjuja-we-yebj and rapid alternating movements were normal. ?? GAIT/STANCE: deferred; ?? NIHSS = 4 Assessment/Plan This is a 58yo RH man with polysubstance abuse, HIV+, HTN, smoking, bilateral hip replacement; now with fall going to the bathroom around 1AM, speech impairment and difficulty moving his left leg, most likely pain related. hCT and CTA did not show any acute findings and no major vessel occlusion. On exam, he only has the left leg weakness (sensation seems intact) that is a focal finding and that seems to be pain related. 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 ?? I doubt that this is a stroke or a TIA, even though he has an NIHSS of 4. ?? Rec: - screen for drugs or other toxic substances - left leg weakness seems to be pain related; may need x-ray of left hip - could obtain MRI of brain if left leg weakness persists and no other toxic substances are found to explain his mental and physical state. - keep on telemetry to rule out any cardiac arrhythmias - check fasting lipid panel and HbA1c - check extended/comprehensive metabolic panel (LFT, Mg, Ca, Phos) - needs bedside swallow eval. - intravenous TNK was considered, but he is outside of the time window. - he is not a thrombectomy candidate, since there is no target - stroke education was provided - my assessment and recommendations were discussed with ED, Dr. Owusu. ? Samuel Pizano MD, PhD Telehealth Time of direct telehealth encounter/medical discussion:??55 minutes The patient was located in a home setting in the [facility] during this Video electronic televisit, and gave consent to conduct the visit via telehealth. Provider was located in a [facility] office. Persons other than patient involved in televisit included: none Total Time Spent 55 minutes Medical Decision Making review of??his previous??medical information??and review??of previous??imaging studies 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 Hypertension Major depressive disorder Nicotine dependence Opiate dependence Suicidal ideation Procedure/Surgical History ORIF - Open reduction and internal fixation of fracture Medications Biktarvy oral tablet, 1 tablet, By Mouth, Daily Breo Ellipta 100 mcg-25 mcg/inh inhalation powder, 1 puffs, Inhalation, Daily buPROPion 150 mg/24 hours (XL) oral tablet, extended release, 150 mg= 1 tablet, By Mouth, Daily in AM busPIRone 10 mg oral tablet, 30 mg= 3 tablet, By Mouth, 2 times a day Cyclobenzaprine, 10 mg, By Mouth, Every 8 hours duloxetine 30 mg oral enteric coated capsule, [...] bedtime Allergies Toradol Social History Alcohol Use: Past. Frequency: Daily. Type: Beer. Other: reports 6 months sober. Substance Abuse Use: Past. Type: Heroin. Tobacco Use: 10 or more cigarettes (1/2 pack or more)/day in last 30 days. Family History No positive family history reported. Lab Results WBC 13.7 Plt 125K Radiology hCT: no acute lesion CTA: all vessels seem to be open Radiology * Event Display: [place] Interventional Angiogram Extracranial Authored Date: * Event Display: [place] Interventional Angiogram Extracranial Authored Date: Peripheral Interventional Report Demographics Patient Name KIAN HAMMER Gender Male [employer] Room Number S342 Height Date of 1965 Weight 186.29 pounds Age 58 year(s) Accession Number [id number] BMI Referring Physician Kameron Hathaway Date of Study 11/06/2023 Performing Physician Kameron Hathaway Fellow Interventional Physician Kameron Hathaway Procedure Procedure Type Percutaneous Peripheral Intervention:Peripheral Stent , Neuro Intervention, Interventional Extracranial Angiogram Indications Indications: Stenosis of major intracranial artery. Clinical History Additional Clinical History:HISTORY: 58-year-old gentleman recently admitted to the hospital for right MCA stroke symptoms, found to have an area of restricted diffusion in the right MCA terrotiry. CT angiogram of the head and neck showed flow limiting stenosis at the origin of the right internal character artery, confirmed earlier by conventional angiography. Repeat cerebral angiogram done for right carotid stent placement. OPERATION: 1. Cerebral angiogram with stent placement for treatment of flow limiting right carotid stenosis, with the aid of distal protection device. Tasks: Conscious sedation provided by nursing staff Cannulation right common femoral artery, insertion of 6 Fr sheath Cannulation, angiogram right common carotid artery Deployment of distal protection device to the right internal carotid artery Deployment of XACT stent to the right internal carotid artery Control angiogram right common carotid artery Angiogram right MIDDLEWARE SOLUTIONS ARCHITECT 6 Fr Angio-seal to right MIDDLEWARE SOLUTIONS ARCHITECT. Procedure Data Procedure Date Date: 11/06/2023Start: 10:58End: 11:47 The procedure was explained in detail to the patient. Risks, complications and alternative treatments were reviewed. Written consent was obtained. Entry Locations - Percutaneous access was performed through the Right Femoral artery. A 6 Fr sheath was inserted. Hemostasis was successfully obtained using Angio-Seal. Procedure Medications - Versed (Midazolam) I.V. 1 mg. - Fentanyl I.V. 50 mcg. - Lidocaine 2% S.C. Right groin 10 ml. - Robinol (Glycopyrolate) I.V. 0.2 mg. - Heparin I.V. 5000 units. - Neosynephrine (Phenylephrine) I.V. 80 mcg. - Neosynephrine (Phenylephrine) I.V. 80 mcg. - Neosynephrine (Phenylephrine) I.V. 80 mcg. Sedation: My intra-service moderate sedation time was: from 1105 to 1137. Refer to procedural log for detailed chronological information. Contrast Material - Omnipaque 45 ml Diagnostic Catheters - ANeuron Select Catheter 5F 120 cm Berenstein. Fluoroscopy Time: Diagnostic: 3:06 minutes. Total: 3:06 minutes. Fluoroscopy Dose: Diagnostic: 155 mGy. Total: 155 mGy. Dose Area Product:Diagnostic: 90908 mGy/cm2. Total: 83912 mGy/cm2. Procedure Narrative Technique: The procedure, risks including stroke, intracranial hemorrhage, coma, , blood vessel injury, failure of intervention, need for further procedures, need for parent vessel sacrifice, groin hematoma, contrast nephropathy, radiation injury, were explained to the patient and her family and informed consent obtained. Using a micropuncture needle, the right MIDDLEWARE SOLUT[employer] ARCHITECT was cannulated with a shuttle sheath. The above-mentioned vessels were cannulated with a 5 Garcia 2 catheter on continuous heparinized saline flush. Angiogram of the right common carotid artery revealed severe stenosis of the right internal carotid artery, >70% stenosis by NASCET criteria. Intervention: A total of 5000 units of IV heparin were given to keep the ACT over 200. The diagnostic catheter was for an [employer] SAMMY distal protection device advanced over the provided guidewire, into the distal right cervical internal carotid artery. The distal protection device was then deployed in the right cervical internal carotid artery. Over the guidewire, an 8-6 mm by 40 mm XACT stent was advanced into the right cervical internal carotid artery, traversing the earlier mentioned stenosis. The stent was deployed using standard technique. Control angiogram of the right common carotid artery revealed satisfactory patency of the right internal carotid artery. The distal protection device was then removed. Following the angiogram of the right MID[employer] SOL[employer] ARCHITECT, Angio-seal was applied to the right common femoral artery. Angiographic Findings Peripheral Arteries and Lesion Findings Common Carotid, Right: Lesion in Distal: 1% stenosis . Hemodynamics Condition: Rest O2 Consumption: Heart Rate: 69 bpm Shunts Oxygen Values O2 Capacity 176.8 O2 Consumption 253.5 Interventional Procedure Peripheral lesions: Common Carotid, Right: Lesion in Distal: 1% stenosis reduced to 1%. Devices used - [employer]oshield NAV6 0.014 in 190 cm Small. Number of passes: 1. - Xact 8.00-6.00 mm 40 mm RX. Length: 40 mm. Number of passes: 1. to a max pressure of: 1 ivett. Conclusions Interventional Summary Observation: Right common carotid artery: atherosclerotic plaque resulting in severe flow limiting stenosis seen at the origin of the right internal carotid artery, greater than 70% by NASCET criteria. Normal contrast opacification of the supraclinoid right internal carotid artery, right CONRAD, right MCA, right STOCK SAW OPERATOR with contrast washout and their branches seen. Arterial, parenchymal and venous fears of the angiogram are unremarkable. No intracranial aneurysm or early venous drainage noted. Post carotid stent placement, there is significant improvement in patency of the cervical right internal carotid artery along with markedly improved flow to the bilateral cerebral hemispheres. Interventional Recommendations IMPRESSION: Severe flow limiting stenosis seen at the origin of the right internal character artery, greater than 70% by NASCET criteria. Post stent deployment, there is significant improvement in patency of the cervical right internal carotid artery, along with markedly improved flow to the bilateral cerebral hemispheres. The findings of the study were discussed with the patient as well as the stroke team after the procedure. Plan to continue Aspirin 81 mg daily and Plavix 75 mg daily for 6 months. Plan for repeat CTA head and neck in six months to evaluate for interval changes. Signatures * Event Display: NV Interventional Angiogram Extracranial Authored Date: * Event Display: NV Diagnostic Angiogram Cerebral Authored Date: * Event Display: [place] Diagnostic Angiogram Cerebral Authored Date: Peripheral Diagnostic Report Demographics Patient Name KIAN HAMMER Gender Male [employer] Room Number S342 Height Date of 1965 Weight 186.29 pounds Age 58 year(s) Accession Number [id number] BMI Referring Physician Kameron Hathaway Date of Study 11/03/2023 Performing Physician Kameron Hathaway Fellow Interventional Physician Kameron Hathaway Procedure Procedure Type Peripheral Cath Diagnostic Procedure:Neuro Diagnostic, Diagnostic Cerebral Angiogram, Carotid-Cerebral Bilateral Indications Indications: Stenosis of major intracranial artery. Clinical History Additional Clinical History:HISTORY: 58-year-old gentleman recently admitted to the hospital for right MCA stroke symptoms, found to have an area of restricted diffusion in the right MCA territory. CT angiogram of the head and neck showed flow limiting stenosis at the origin of the right internal carotid artery. Tasks: Cannulation right radial artery, insertion of 5 Fr sheath Cannulation, angiogram right common carotid artery Cannulation, angiogram left common carotid artery Cannulation, angiogram right subclavian artery Cannulation, angiogram right vertebral artery Angiogram right radial artery TR band to right radial artery. Technique: The procedure, risks including stroke, coma, intracranial hemorrhage, blood vessel injury, limb ischemia, contrast nephropathy, radiation injury, need to convert to femoral access were explained to the patient and informed consent obtained. Using a micropuncture needle, the right radial artery was cannulated with a 5 Fr sheath. The above-mentioned vessels were cannulated with a 5 Fr catheter on continuous heparinized saline flush. Following the angiogram, TR band was applied to the right radial artery. Procedure Data Procedure Date Date: 11/03/2023Start: 08:31End: 09:22 The procedure was explained in detail to the patient. Risks, complications and alternative treatments were reviewed. Written consent was obtained. Entry Locations - Retrograde Percutaneous access was performed through the Right Radial artery. A 5 Fr sheath was inserted. Hemostasis was successfully obtained using TR Band. Closure Comments: 12cc of Air. Procedure Medications - Versed (Midazolam) I.V. 0.5 mg. - Fentanyl I.V. 50 mcg. - Lidocaine 2% 10 ml. - Fentanyl I.V. 25 mcg. - Nitroglycerin I.A. 200 mcg. - Heparin I.V. 3000 units. - Nitroglycerin I.A. 100 mcg/hr. Sedation: My intra-service moderate sedation time was: from 835 to 909. Refer to procedural log for detailed chronological information. Contrast Material - Omnipaque 45 ml Diagnostic Catheters - A5 FrRadifocus GLIDECATH 5F 100 cm Garcia 2was advancedviaipsilateralapproachandwas used for:Rightside. - A5 FrRadifocus GLIDECATH 5F 100 cm Angle Tipwas advancedviaipsilateralapproachandwas used for:Rightside. Fluoroscopy Time: Diagnostic: 8:12 minutes. Total: 8:12 minutes. Fluoroscopy Dose: PCI: 198 mGy. Total: 198 mGy. Dose Area Product:PCI: 39544 mGy/cm2. Total: 92603 mGy/cm2. Procedure Narrative Observation: Right subclavian artery: normal contrast opacification, seen at the origin of the right vertebral artery. Right vertebral artery: normal contrast opacification of the intracranial right vertebral artery, right PICA artery, basilar artery, bilateral AICA arteries, bilateral SCA arteries, bilateral STOCK SAW OPERATOR's and their branches seen. Arterial, parenchymal and venous phases of the angiogram are unremarkable. No intracranial aneurysm or early venous drainage noted. Right common carotid artery: atherosclerotic plaque resulting in severe flow limiting stenosis seen at the origin of the right internal carotid artery, greater than 70% by NASCET criteria. Normal contrast opacification of the supraclinoid right internal carotid fracture, right CONRAD, right MCA, right STOCK SAW OPERATOR with contrast washout I branches seen. Arterial, parenchymal and venous phases of the angiogram are unremarkable. No intracranial aneurysm or early venous drainage noted. Left common carotid artery: atherosclerotic plaque without any underlying vessel stenosis seen at the origin of the left internal carotid artery, less than 50% by NASCET criteria. Normal contrast opacification of the supraclinoid left internal character artery, left CONRAD, left MCA, left STOCK SAW OPERATOR with contrast washout and their branches seen. Arterial, parenchymal and venous phases of the angiogram are unremarkable. No intracranial aneurysm or early venous drainage noted. Hemodynamics Condition: Rest O2 Consumption: Heart Rate: 74 bpm Shunts Oxygen Values O2 Capacity 190.4 O2 Consumption 253.5 Conclusions Interventional Summary IMPRESSION: Cerebral angiogram demonstrates severe flow limiting stenosis at the origin of the right internal carotid artery, greater than 70% by NASCET criteria. Also seen is atherosclerotic plaque at the origin of the left internal cursor artery without any underlying vessel stenosis, less than 50% by NASCET criteria. The findings of the study were discussed with the patient as well as the stroke team after the procedure. Plan for carotid stent placement to the right ICA in the coming days. Signatures * Event Display: NV Diagnostic Angiogram Cerebral Authored Date: [id number] Patient Care team information Care Team Personnel Name: Flor Ludwig RN Position: [facility] RN Member Role: Primary Care Nurse Name: Thuy Ferrer RN Position: [facility] RN Member Role: Primary Care Nurse Name: Mary Adorno Position: [facility] Outreach Member Role: [employer]etime Consulting Physician Name: Ekaterina Richardson RN Position: [facility] RN Member Role: Primary Care Nurse Name: Vale Watson RN Position: [facility] RN Member Role: Primary Care Nurse Name: Kelly Menon RN Position: [facility] SN RN Member Role: Primary Care Nurse Name: Shonda White RN Position: [facility] RN Member Role: Primary Care Nurse Name: Lorie Desai RN Position: [facility] RN Member Role: Primary Care Nurse Name: Lon Stephens RN Position: [facility] SN RN Member Role: Primary Care Nurse Name: Ross VILLA, Debbie Lora Position: [facility] ED RN W/OE and Tasks Member Role: Primary Care Nurse Name: Paul Hurley Position: [facility] RN Member Role: Primary Care Nurse Name: Megan Bowens RN Position: [facility] RN Member Role: Primary Care Nurse Name: Abigail Balderas RN Position: [facility] RN Member Role: Primary Care Nurse Name: Shauna Ayala RN Position: [facility] RN Member Role: Primary Care Nurse Name: Yong Olsen RN Position: [facility] SN RN Member Role: Primary Care Nurse Name: Octavia Tellez RN Position: [facility] RN Member Role: Primary Care Nurse Name: Annia James RN Position: [facility] [employer] Member Role: Primary Care Nurse Name: Mary Frost RN Position: [facility] RN Member Role: Primary Care Nurse Name: Shayy Nielson NP Position: [facility] Outreach Member Role: PCP Address: Address: [address] [place] [id number] Name: Heide Eldridge RN Position: [facility] RN Member Role: Primary Care Nurse Name: Nick Simmons RN Position: [facility] RN Member Role: Primary Care Nurse Name: Debbie Haq RN Position: [facility] RN Member Role: Primary Care Nurse Name: Barbra Jerez RN Position: [facility] RN Member Role: Primary Care Nurse Name: Mason Ornelas RN Position: [facility] [employer] Member Role: Primary Care Nurse Care Team Related Persons Name: SHONDA VARGAS Address: home [address] [facility] [place] [address] Name: VANDANA DAMIAN Address: home [address] [place] [address]
--- OUTSIDE RECORDS SUMMARY | 2024-03-01 11:15 | XMS_ITS | Continuity of Care Document ---
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 Role Phone Naga KOHLER, Shayy Barnes Primary Care Physician Encounter [facility] Date(s): 02/13/24 - 02/14/[address] [id number] Discharge Disposition: A-D/C Home Attending Physician: Diana Alexandra MD Admitting Physician: Breanna Winston MD Referring Physician: Not on Staff, Referring MD Allergies, Adverse Reactions, Alerts Substance Reaction Severity Status Toradol Active Immunizations Given and Recorded Vaccine Date Status Refusal Reason influenza virus vaccine, inactivated 10/31/23 Give n influenza virus vaccine, inactivated 07/26/15 Give n SARS-CoV-2 (COVID-19) mRNA-1273 vaccine 12/08/21 R ecorded SARS-CoV-2 (COVID-19) mRNA-1273 vaccine 01/20/21 R ecorded SARS-CoV-2 (COVID-19) mRNA-1273 vaccine 01/01/21 R ecorded SARS-CoV-2 (COVID-19) mRNA-1273 vaccine 11/24/20 R ecorded SARS-CoV-2 (COVID-19) mRNA-1273 vaccine 06/07/11 R ecorded Twinrix (oldterm) 1 01/01/14 Given pneumococcal 13-valent vaccine 01/02/13 Given tetanus/diphtheria/pertussis, acel(Tdap) 07/11/12 Given Pneumovax 23 (oldterm) 2 03/16/10 Given SARS-CoV-2 (COVID-19) Ad26 vaccine 07/06/06 Record ed 1Admin Note: Booster, double dose in divided doses both arms 2Admin Note: pt states received at [facility] Medications aspirin 81 mg oral delayed release tablet 81 mg, By Mouth, Daily, Refills 0, Maintenance, 11/15/23 13:46:00 EST, Partial fill upon patient request if the prescription is for a schedule II opioid drug. Start Date: 11/15/23 Status: Ordered Biktarvy oral tablet 1 tablet, By Mouth, Daily, # 30 tablet, 0 Refills, Maintenance, 11/15/23 11:58:00 EST, Tablet, [facility], Partial fill upon patient request if [...] opioid drug. Start Date: 11/15/23 Status: Ordered folic acid 1 mg oral tablet 1 mg, By Mouth, Daily, Refills 0, Maintenance, 11/15/23 13:46:00 EST, Partial fill upon patient request if the prescription is for a schedule II opioid drug. Start Date: 11/15/23 Status: Ordered Incruse Ellipta 62.5 mcg/inh inhalation powder 1 puffs, Inhalation, Every 24 hours, Maintenance, 10/30/23 11:51:00 EST, Partial fill upon patient request if the prescription is for a schedule II opioid drug. Start Date: 10/30/23 Status: Ordered lactulose 10 gm/15 ml oral syrup 30 mL = 20 Gm, By Mouth, 3 times a day, for 14 days, # 1,260 mL, 0 Refills, Acute 02/28/24 13:03:00EDT, 02/14/24 13:03:00 EDT, Syrup, [facility], Partial fill upon patient request if the prescription is for a schedule II opioid drug., 3... Start Date: 02/14/24 Stop Date: 02/28/24 Status: Ordered melatonin 3 mg oral tablet [...] oral capsule 800 mg, Capsule, By Mouth, 02/14/24 9:00:00 EDT Start Date: 02/14/24 Stop Date: 02/14/24 Status: Completed Neurontin 800 mg oral tablet 1 tablet = 800 mg, By Mouth, 3 times a day, Maintenance, 10/30/23 11:51:00 EST, Partial fill upon patient request if the prescription is for a schedule II opioid drug. Start Date: 10/30/23 Status: Ordered nicotine 21 mg/24 hr transdermal film, extended release 1 patch, Topically, Daily, for 14 days, # 14 patch, 0 Refills, Acute 02/28/24 13:12:00 EDT, 02/14/24 13:12:00 EDT, Patch, [facility], Partial fill upon patient request if the prescription is for a schedule II opioid drug., 1 patch Topica... Start Date: 02/14/24 Stop Date: 02/28/24 Status: Ordered Protonix 40 mg oral delayed [...] mg, By Mouth, 2 times a day, taper by PCP and discontinue gradually as outpatient, Maintenance, 10/30/23 10:56:00 EST, Partial fill upon patient request if the prescription is for a schedule II opioid drug. Start Date: 10/30/23 Status: Ordered Problem List Condition Confirmation Course Effective Dates Status Health St [facility] Informant Alcoholic cirrhosis of liver Confirmed Active Cannabis abuse Confirmed Active Chronic low back pain Confirmed 07/11/12 Active Cocaine abuse Confirmed Active DDD (degenerative disc disease) Confirmed Active GERD (gastroesophageal reflux disease) Confirmed Active H/O repair of right rotator cuff Confirmed Active HIV Confirmed Active HIV disease Confirmed Active HLA-B*5701 positive 1 Confirmed 08/30/18 Active Hypertension Confirmed Active Major depressive disorder Confirmed Active Alcohol use disorder, moderate, dependence Confirmed Active Nicotine dependence Confirmed Active Opiate dependence Confirmed Active COPD with emphysema Confirmed Active Carotid stenosis, right Confirmed Active Type 2 diabetes mellitus Confirmed Active 1Lab done at [facility]- document sent to scanning. Results Radiology Reports * Exam Date Time Procedure Performing Provider Status 02/13/24 11:[address] Head/Brain W/O Contrast Elder Rivera; Jackie (Verified) Notes: (CT Head/Brain W/O Contrast) Reason For Exam: Seizure Disorder RESULT: CT Head/Brain W/O Contrast CT Head/Brain W/O Contrast INDICATION: Reason: Seizure Disorder; Clinical Question(s): Hematoma; Order Comment: TECHNIQUE: Noncontrast head CT using axial technique and reconstructed in axial and coronal planes.Iterative reconstruction techniques are used to optimize dose and image quality. CTDIvol Head: 48.30 mGy, DLP Head: 773 mGy*cm. COMPARISON: 10/30/2023. FINDINGS: Slab Stripper view findings, lines and tubes: None. BRAIN [...] collection. CALVARIUM, SKULL BASE, AND SOFT TISSUES: No fractures or suspicious bony lesions. Almost complete opacification of the left maxillary sinus. Mastoid air cells are clear. Soft tissuedensities within the bilateral external auditory canals, likely impacted cerumen. Status-post left lens extraction. The extracranial soft tissues are unremarkable. IMPRESSION: No acute intracranial pathology. I have personally reviewed the images and I agree with this report. WSN: [id number] Ordering Physician: Vandana Desouza Dictated By: Lizandro[Radiology] Rubin ALBARRAN Dictated Date/Time: 02/13/24 11:39 p Reviewed By: Jagdish Ramirez MD Signed By: Jagdish Ramirez MD Signed Date/Time: 02/13/24 11:44 pm Transcribed By: ATUL Transcribed Date/Time: 02/13/24 11:36 pm Vital Signs Most recent to oldest [Reference Range]: 1 2 3 4 Height 180 cm (02/14/24 8:23 AM) 180 cm (02/14/24 4:56 AM) 180 cm (02/13/24 8:47 PM) Weight 90 kg (02/13/24 2:40 PM) Oxygen Saturation [94-100 %] 96 % (02/14/24 8:23 AM) 95 % (02/14/24 4:56 AM) 97 % (02/13/24 8:47 PM) Pulse Rate [55-90 bpm] 71 bpm (02/14/24 8:23 AM) 71 bpm (02/14/24 8:23 AM) 72 bpm (02/14/24 4:56 AM) Body Mass Index [18.5-24.99 kg/m2] 27.78 kg/m2 *H* (02/13/24 2:40 PM) Blood Pressure [90-138/55-84 mm Hg] 107/88mm Hg (02/14/24 8:23 AM) 107/88mm Hg (02/14/24 8:23 AM) 96/64mm Hg (02/14/24 4:56 AM) Respiratory Rate [16-30 br/min] 16 br/min (02/14/24 11:07 AM) 16 br/min (02/14/24 8:30 AM) 16 br/min (02/14/24 8:23 AM) 16 br/min (02/14/24 8:23 AM) Temperature [96.8-100.4 DegF] 97.8 DegF (02/14/24 8:23 AM) 97.7 DegF (02/14/24 4:56 AM) 98.2 DegF (02/13/24 8:47 PM) Liters per Minute 2 L/min (02/13/24 8:47 PM) 1 L/min (02/13/24 5:00 PM) 2 L/min (02/13/24 2:40 PM) Mode of Delivery (Oxygen) Room air (02/14/24 8:23 AM) Room air (02/14/24 4:56 AM) Nasal cannula (02/13/24 8:47 PM) Blood pressure sites Leg, right (02/14/24 8:23 AM) Arm, right (02/14/24 4:56 AM) Arm, right (02/13/24 8:47 PM) Temperature Route Axillary (02/14/24 8:23 AM) Oral (02/14/24 4:56 AM) Oral (02/13/24 8:47 PM) Dry Weight 84.5 kg (02/13/24 2:40 PM) Weight Obtained Via Bed scale (02/13/24 2:40 PM) Social History Social History Type Response Smoking Status 10 or more cigarette s (1/2 pack or more)/day in last 30 days entered on: 05/14/23 Sex History and physical note * Deo ALBARRAN, Vandana Christian: PERFORM Event Display: History and Physical Hospital Authored Date: [id number] Patient: ??HARMAN LANGSTON ? Age:??59 Years?Sex:??Male?:??1965?? Chief Complaint/Reason for Consultation Staff at [facility] heard patient and called 911 becuase patient was twitching, pt was unable to answer questions when EMS arrived, pt had grand mal seizure in front of EMS for 30 seconds. ??Pt now postictal History of Present Illness 59-year-old male with past medical history significant for??polysubstance abuse,??opiate dependenceon??Suboxone, alcohol use disorder,??previous alcohol withdrawal seizure,??alcoholic liver cirrhosis with previous hepatic encephalopathy,??hypertension,??diabetes mellitus type 2,??right??carotid michelle nosis status post stent??11/06/2023,??HIV disease,??COPD, tobacco use disorder, chronic back pain,??GERD, anxiety, and depression??who was brought to the emergency room this morning after an apparent seizure??at the hotel he was staying at.?? The patient states that he has recently relapsed with alcohol use,??and last drank last night.?? This morning,??he decided to snort a crushed Wellbutrin pill.?? Per EMS, hotel staff heard??the patient twitching and called 911.?? He had a witnessed tonic-clonic seizure for approximately 30 seconds when they arrived, and then was postictal.?? He did not receive any other medications.?? The patient denies any recent fever or illness.?? He did not complain of chest pain, palpitations, or shortness of breath. ??There was no reported vomiting, abdominal pain, diarrhea, or urinary symptoms.?? The patient denies any other illicit drug use.?He does reporta fall onto his buttocks while getting up from the toilet??late last night, while he was intoxicated .?He does not know if he hit his head. ?? In the emergency department, the patient has been afebrile.?? He is hemodynamically stable.?? Hewas initially mildly tachycardic in the 90s.?? No respiratory distress or hypoxia.?? He was monitored with CIWA score as high as 13, and received IV lorazepam (2 mg IV x 2).?? Laboratory workup was significant for leukocytosis (WBC 16.3 K), anion gap metabolic acidosis with preserved renal function, and chronic abnormal LFTs. His ammonia level was found to be elevated at 144, and he was started on oral lactulose.?? He received 2 L LR IV bolusing. Review of Systems Other than those positives as noted in the HPI above, all other systems were reviewed and are negative. Objective Measurements?? Height: 180 cm (02/13/24) Weight: 90 kg (02/13/24) Dry Weight: 84.5 kg (02/13/24) Body Mass Index:??27.78 kg/m2??High (02/13/24) ? Vital Signs?? Temperature: 98.2 DegF (02/13/24 20:47:00) Temperature Route: Oral (02/13/24 20:47:00) Pulse Rate: 77 bpm (02/13/24 20:47:00) Respiratory Rate: 16 br/min (02/13/24 20:47:00) Systolic Blood Pressure: 122 mm Hg (02/13/24 20:47:00) Diastolic Blood Pressure: 80 mm Hg (02/13/24 20:47:00) Blood pressure sites: Arm, right (02/13/24 20:47:00) Mean Arterial Pressure: 94 mm Hg (02/13/24 20:47:00) Pulse Pressure: 42 mm Hg (02/13/24 20:47:00) Oxygen Saturation: 97 % (02/13/24 20:47:00) Liters per Minute: 2 L/min (02/13/24 20:47:00) Mode of Delivery (Oxygen): Nasal cannula (02/13/24 20:47:00) Early Warning Score: 7 (02/13/24 20:48:07) ? Pain Scores 1 - 10 Pain Scale Score: 3 (06:30) ? Physical Exam General Appearance: Alert, appears stated age, no distress, answers questions appropriately with some minimal expressive aphasia (? baseline) HEENT: Normocephalic, atraumatic, PERRL, EOMI, no scleral icterus, no facial droop, moist mucous membranes, no oropharynx lesions?? Neck: Supple, no JVD, no C-Spine tenderness Cardiac: RRR, S1 & S2 present, no m / r / g appreciated Chest: Clear to auscultation bilaterally, no wheezing / ronchi / rales, no tenderness to percussion Abdomen: Soft, nontender, no distention, no rebound or guarding, no masses, normal bowel sounds in all quadrants Extremities: No clubbing, cyanosis, or edema. ??2+ distal pulses.?? No calf tenderness or cords Skin: Warm, no rash Neuro: ??A & O x 3, CN III-XII intact, strength 5/5 of upper / lower extremities bilaterally, no drift, gross sensation intact, positive asterixis and fine tremor Psych: ??Stable mood, appropriate affect Assessment/Plan Assessment:??59-year-old male with past medical history significant for??polysubstance abuse,??opiate dependence on??Suboxone, alcohol use disorder,??previous alcohol withdrawal seizure,??alcoholic liver cirrhosis with previous hepatic encephalopathy,??hypertension,??diabetes mellitus type 2,??right??carotid stenosis status post stent??11/06/2023,??HIV disease,??COPD, tobacco use disorder, chronicback pain,??GERD, anxiety, and depression??who was brought to the emergency room this morning afteran apparent seizure??at the hotel he was staying at.??The patient states that he has recently relapsed with alcohol use,??and last drank last night.??This morning,??he decided to snort a crushed Wellbutrin pill.??Per EMS, he had a witnessed tonic-clonic seizure for approximately 30 seconds when they arrived.?Laboratory workup was significant for leukocytosis, anion gap metabolic acidosis, and elevated ammonia level with chronic abnormal LFTs.??Admission requested for alcohol withdrawal seizure and hepatic encephalopathy. ?? Alcohol withdrawal seizure (F10.939) ?Associated with??Alcohol use disorder, moderate, dependence (F10.20) The patient had a witnessed tonic-clonic seizure today, likely related to alcohol withdrawal.??He does have a history of this.??Nasal inhalation of??Wellbutrin??could have also lowered his seizure threshold.??He denied other substance use.??His initial CIWA score here was 13, now improved to 4 after IV lorazepam in the emergency room.?He is??at increased risk for complicated withdrawal??due tohistory of withdrawal and DTs/prior seizure,??lab evidence of liver disease, heavy and sustained alcohol use, and age greater than 30. -??Continue symptom-triggered treatment protocol of alcohol withdrawal syndrome (EB) with benzodiazepines (and possibly??phenobarbital) as follows: ?? If CIWA???Ar less than 14 during first 24 hours of EB: Lorazepam 1-2 mg PO/IV every 1 to 2 hours as needed for CIWA???Ar 1-13.??If unchanged or escalating CIWA-Ar score despite 6 mg of Lorazepam, consider Phenobarbital and contact provider. ?? Monitor for oversedation.??We will continue the patient's prescribed gabapentin.??Consider adjunctive medications such as Valproate, Clonidine, Haldol, and Risperdone for anxiety / agitation / autonomic symptoms. ?? Start Thiamine 100 mg orally twice daily, Folic acid 1 mg daily, MVI daily, and Pyridoxine 50 mg daily. ?? Addiction medicine consultation requested. ?? Given seizure, and??the patient's history of fall??last night while intoxicated, we will obtain head CT??to rule out intracranial hemorrhage.??He does not have??any other significant focal neurologicfindings at this time.?We will also check urine toxicology. ?? Hepatic encephalopathy (K76.82) ?Associated with??Alcoholic cirrhosis of liver (K70.30) The patient's ammonia level is 144, with chronic??abnormal LFTs due to alcoholic liver cirrhosis.??He does not have significant ascites on exam.??Stable CBC without evidence of active bleeding??or history of varices.??The patient is currently alert and oriented x 3, but still with some asterixis onexam. -Continue lactulose 30 cc 3 times daily to promote 2-3 loose bowel movements daily -Monitor LFTs and ammonia level ?? Metabolic acidosis, increased anion gap (E87.29):??I suspect??this is secondary to??alcoholic ketoacidosis.??Unfortunately lactic acid level was not obtained in the emergency room, which may have been elevated in the setting of seizure.??Renal function is stable. The patient received 2 L LR IV bolusing, and is not vomiting.??No significant abdominal pain. Encourage oral intake. Will monitor metabolic panel. ?? Hypertension (I10):??The patient??was initially hypertensive in the setting of alcohol??withdrawal,but now controlled.??He is not currently taking??any??blood pressure medications due to vasovagal??hypotension on last admission.??He states he is no longer using midodrine. We will continue to monitor blood pressure. Continue aspirin and clopidogrel??as prescribed after??right carotid stent in October. ?? Type 2 diabetes mellitus (E11.9):??Hold metformin. Monitor POC's with insulin lispro sliding scale coverage. ?? HIV disease (B20):??Continue Biktarvy as prescribed. ?? 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 DuoNebs will be ordered as needed for wheezing. Smoking cessation counseling provided for 4 minutes. Nicotine 21 mg patch daily??accepted. ?? Chronic low back pain (M54.50) ?Grouped with??Opiate dependence (F11.20) Continue Suboxone as prescribed. Continue gabapentin as prescribed. ?? GERD (gastroesophageal reflux disease) (K21.9):??Continue PPI as prescribed. ?? Major depressive disorder (F32.9):??Mood is currently stable. Continue??bupropion,??buspirone,??and quetiapine as prescribed. Check EKG??for QT interval. ?? VTE Prophylaxis:??Low risk for VTE per guidelines. ?VTE Prophylaxis Assessment:??Risk Level documented as Low Risk ?? Discharge Planning:??Disposition pending. Anticipate 2 to 4 days hospitalization. ?? Code Status:??FULL. ?Order Code Status:??Code Status Ordered ?? I spent a total of??94 minutes today reviewing the chart / medical records, evaluating the patient,evaluating and interpreting laboratory and imaging data, formulating and discussing the treatment plan, and documenting the encounter. ? Histories Allergies Allergies ?(Active and Proposed Allergies Only) Toradol? (Severity: Unknown severity, Onset: Unknown) ? Past Medical History/Problem List Active Problems(19) Alcohol use disorder, moderate, dependence Alcoholic cirrhosis of liver Cannabis abuse Carotid stenosis, right Chronic low back pain Cocaine abuse COPD with emphysema DDD (degenerative disc disease) GERD (gastroesophageal reflux disease) H/O repair of right rotator cuff Heroin overdose HIV disease Hypertension Major depressive disorder Nicotine dependence Opiate dependence Type 2 diabetes mellitus ? Past Surgical History ORIF - Open reduction and internal fixation of fracture Bilateral THR ? Social History Alcohol Details:??Use:??Current.?Frequency: Daily. ??Type: Beer.? Substance Abuse Details:??Use: Past. ??Type: Heroin, cocaine. Tobacco Details:??Use: 10 or more cigarettes (1/2 pack or more)/day in last 30 days. ? Family History No Positive Family History contributory to this admission. ? Medications Home Medications Acetaminophen (Tylenol 325 mg oral tablet)?1 - 2 tablet?By Mouth?Every 4 hours?as needed?Pain , Mild Aspirin (aspirin 81 mg oral delayed release [...] 800 mg oral tablet)?1?tab(s)?800?Milligram?By Mouth?3 timesa day Melatonin (melatonin 3 mg oral tablet)?1?tab(s)?3?Milligram?By Mouth?Daily at bedtime?as needed?as needed for insomnia Metformin (metFORMIN 500 mg oral tablet, extended release)?1?tab(s)?500?Milligram?ByMouth?Daily Multivitamin With Minerals (Multivit Therapeutic/Minerals Tablet)?1?tab(s)?By Mouth?Daily Pantoprazole (Protonix 40 mg oral delayed release tablet)?1?tab(s)?40?Milligram?By Mouth?Daily Pyridoxine (pyridoxine 50 mg oral tablet)?50?Milligram?By Mouth?Daily Quetiapine (SEROquel 300 mg oral tablet)?1?tab(s)?300?Milligram?By Mouth?Daily atbedtime?as needed?Sleep Thiamine (thiamine 100 mg oral tablet)?100?Milligram?By Mouth?Daily umeclidinium (Incruse Ellipta 62.5 mcg/inh inhalation powder)?1?puff(s)?Inhalation?Every 24 hours ? Results Recent Labs BLOOD COUNT & DIFF WBC 16.3 k/mm3 (High)?? 02/13/2024 06:45 RBC 4.15 m/mm3 (Low)?? 02/13/2024 06:45 Hgb 13.5 Gm/dL (Low)?? 02/13/2024 06:45 Hct 39.3 % (Low)?? 02/13/2024 06:45 MCV 94.7 femtoliters (High)?? 02/13/2024 06:45 MCH 32.5 pg ()?? 02/13/2024 06:45 MCHC 34.4 g/dL ()?? 02/13/2024 06:45 Platelet Count 175 k/mm3 ()?? 02/13/2024 06:45 RDW-SD 53.4 femtoliters (High)?? 02/13/2024 06:45 MPV 11.3 femtoliters ()?? 02/13/2024 06:45 Nucleated RBC (Automated) 0.0 #/100 WBC'S ()?? 02/13/2024 06:45 Abs. NRBC 0.0 k/mm3 ()?? 02/13/2024 06:45 Abs. Neut 9.0 k/mm3 (High)?? 02/13/2024 06:45 Abs. Lymph 5.7 k/mm3 (High)?? 02/13/2024 06:45 Abs. Piatt 1.3 k/mm3 ()?? 02/13/2024 06:45 Abs. Eo 0.1 k/mm3 ()?? 02/13/2024 06:45 Abs. Baso 0.1 k/mm3 ()?? 02/13/2024 06:45 Neut % 53.7 % ()?? 02/13/2024 06:45 Lymph % 31.7 % ()?? 02/13/2024 06:45 Piatt % 8.1 % ()?? 02/13/2024 06:45 Eos % 0.8 % ()?? 02/13/2024 06:45 Baso % 0.8 % ()?? 02/13/2024 06:45 Band % 1.6 % ()?? 02/13/2024 06:45 Atypical Lymph % 3.3 % ()?? 02/13/2024 06:45 Platelet Estimate ADEQUATE ()?? 02/13/2024 06:45 ?? CARDIAC High Sensitivity Troponin (HSTnT) 8 ng/L ()?? 02/13/2024 11:30 ?? CHEM GENERAL Sodium 134 mmol/L ()?? 02/13/2024 06:45 Potassium 3.9 mmol/L ()?? 02/13/2024 06:45 Chloride 97 mmol/L (Low)?? 02/13/2024 06:45 Bicarbonate Level 12 mmol/L (Low)?? 02/13/2024 06:45 Anion Gap 25 (High)?? 02/13/2024 06:45 Glucose Level 151 mg/dL (High)?? 02/13/2024 06:45 Glucose, POC 126 mg/dL (High)?? 02/13/2024 20:34 BUN 7 mg/dL ()?? 02/13/2024 06:45 Creatinine-Blood 0.84 mg/dL ()?? 02/13/2024 06:45 Estimated GFR Creatinine 101 ML/MIN/1.73 M2 ()?? 02/13/2024 06:45 Calcium 8.5 mg/dL (Low)?? 02/13/2024 06:45 Protein, Total 7.8 Gm/dL ()?? 02/13/2024 06:45 Albumin 3.3 Gm/dL (Low)?? 02/13/2024 06:45 AG Ratio 0.7 ()?? 02/13/2024 06:45 Alkaline Phosphatase 264 units/L (High)?? 02/13/2024 06:45 Lipase 35 units/L ()?? 02/13/2024 06:45 AST (SGOT) 127 units/L (High)?? 02/13/2024 06:45 ALT (SGPT) 62 units/L (High)?? 02/13/2024 06:45 Bilirubin, Total 1.8 mg/dL (High)?? 02/13/2024 06:45 ?? COAG INR 1.2 (High)?? 02/13/2024 06:45 Protime (PT) 12.7 seconds (High)?? 02/13/2024 06:45 ?? MISC. CHEMISTRY Ammonia, Venous 144 ??mole/L (High)?? 02/13/2024 06:45 ?? TOXICOLOGY/TDM Ethanol, Serum or Plasma 38 mg/dL (Abnormal)?? 02/13/2024 06:45 ?? URINE OTHER Est Creatinine Clearance 101.68 mL/min ()?? 02/13/2024 14:48 ? EKG study * Event Display: ECG 12-Lead Authored Date: Please click on pdf link to open report * Event Display: ECG 12-Lead Authored Date: Ventricular Rate: 73 BPM Atrial Rate: 73 BPM P-R Interval: 136 ms QRS Duration: 78 ms Q-T Interval: 406 ms QTC Calculation(Bazett): 447 ms P [place]: 39 degrees R [place]: 60 degrees T [place]: 7 degrees Normal sinus rhythm Nonspecific T wave abnormality Abnormal ECG When compared with ECG of 06-NOV-2023 12:43, Nonspecific T wave abnormality now evident in Anterior leads Confirmed by VANDANA ROJAS MD ([id number]) on 02/14/2024 1:11:26 PM [place] * Taya Bolton RN: VERIFY, PERFORM, SIGN Event Display: Progress Note Hospital Authored Date: [id number] Patient: HARMAN LANGSTON Age: 59 years Sex: Male : 1965 Associated Diagnoses: None Author: Taya Bolton RN Findings Evaluation Discharge instructions reviewed. Opportunity provided for questions. Wheelchair offerred. . * Alondra Ramos RN: PERFORM, SIGN, VERIFY Event Display: Progress Note Hospital Authored Date: [id number] Patient: HARMAN LANGSTON Age: 59 years Sex: Male : 1965 Associated Diagnoses: None Author: Alondra Ramos RN Findings Problem Related to Alteration in Psychosocial : Alteration in Psychosocial Function/new 02/13/2024 23:00 EDT Alteration in Psychosocial Related to Acute Alcohol Withdrawal, Anxiety, Substance abuse Goals & Outcomes, Psychosocial Pt will identify stressors leading up to event, Pt will state importance of adhering to medication regime, Pt/caregiver will be offered appropriate resources & support, Pt/caregiver will express feelings/needs/fears /concerns, Pt/caregiver will maintain/obtainpsychological stability, Pt/caregiver will participate in coping skill counseling, Pt will be free from anxiety, Pt successfully withdraws with minimal side effects, Encourage patient to attend NA/AAmeetings, Pt will be free from withdrawal symptoms, Pt will complete written assignment: Other, Pt will complete written assignment: Pros & Cons, Pt will complete written assignment: Relapse Analysis, Pt will detoxify from substance, Pt will develop plan for sobriety after discharge, Pt will participate in recovery groups Interventions, Psychosocial Assess psychosocial needs, Assess readiness to learn needed lifestyle changes, Assess/monitor level of consciousness, Collaborate with provider for psychiatric consult, Evaluate resources & support system available to pt, Offer support; discuss coping strategies, Provide a calm, supportive environment, Identify complications of chronic alcohol use, Assess for complications related to acute alcohol withdrawal, Determine pt's stage of withdrawal as per CIWA scale, Encourage pt to continue to detox, Initiate & maintain Seizure Precautions, Minimize stimulation, Minimize stressors, Assess causes of anxiety needing immediate treatment, Assess for anxiety, Encourage family to bring in music pt enjoys, Evaluate & document effectiveness of anxiolytic meds, Notify MD if anti-anxiety dose is ineffective, Talk to patient regarding concerns BH Goals/Interventions, Psychosocial Yes Psychosocial, Problem Start 02/13/2024 23:55 Reviewed Plan with, Psychosocial Patient Patient Progression, Psychosocial Plan Initiation . Nursing Data Psychosocial : Psychosocial Data. 02/13/2024 23:47 EDT Current Thoughts of Suicide/Harming Self No Can alert staff before acting on impulse Yes . Evaluation pt alert and oriented x4. vss see flowheets for full assessments. poc 126. ct completed. pending urine sample. CIWA 9 ativan given with + effect. bed alarm on for safety. stable WCTM. * Alvin Jones RN: PERFORM, SIGN, VERIFY Event Display: Progress Note Hospital Authored Date: Patient: HARMAN LANGSTON Age: 59 years Sex: Male : 1965 Associated Diagnoses: None Author: Alvin Jones RN Findings Narrative/Incidental Pt A&O*4. VSS. C/o back pain for me. CIWA neg during my shift. place on 1L O2 NC for comfort satting at 100%. admission process done per protocol including two RN skin check. skin WDL. bed alarm is on for hx of fall , 1 assist stnadby with cane. call light within reach and oiriented to new room. hourly rounding done. . Consult note * June Duncan: PERFORM, SIGN, VERIFY Event Display: Consultation Note Authored Date: Patient: HARMAN LANGSTON Age: 59 years Sex: Male : 1965 Associated Diagnoses: None Author: June Duncan Addiction med consult requested, pt drinking ETOH regularly, along with some possible nasal wellbutrin use. Wellbutrin can be misused to have effects similar to that of cocaine, which can lead to similar adverse effects such as seizure, hallucinations, tachycardia. This is typically moreso seen in settingske residential where access to illicit substances otherwise is hard to come by, so not totally unheardof. It can also be cheaper to obtain than cocaine depending on the location. Addiction lift team technician met with pt this morning, at which time he expressed he would not be interested in any medication to help with ETOH cravings, or any referrals for community supports such as treatment programs, therapy, etc. If pt changes his mind on wanting to pursue medication or resources through his admission here, feel free to reach out. Otherwise, due to lack of interest in available interventions, will sign off for now. * Michelle Young: PERFORM, SIGN, VERIFY Event Display: Consultation Note Authored Date: Patient: HARMAN LANGSTON Age: 59 years Sex: Male : 1965 Associated Diagnoses: None Author: Michelle Young This rfp writer met with patient this morning to discuss recovery resources. Patient declined all resources such as therapy, recovery coaching, MAT, IOP and inpatient treatment programs. If patient decides she would like assistance with resources, this rfp writer will meet with patient again. Note * Taya Bolton RN: PERFORM Event Display: Discharge/Transfer Note Hospital Authored Date: Nursing Discharge Note Entered On: 02/14/2024 13:27 EDT Performed On: 02/14/2024 13:26 EDT by Taya Bolton RN Nursing Discharge Note 2 Discharge Time : 02/14/2024 13:26 EDT Discharge Level of Care at Discharge : Home/Long Term/Foster Care Patient Left Unit Via : Wheelchair Patient Accompanied Off Unit with : Responsible adult DC Instructions Provided & Signed by Pt : Yes Patient Understands D/C Instructions : Yes Patient Instructions Discharge Signed : Yes Did Pt have Specialty Bed or Wound Vac : No Taya Bolton RN - 02/14/2024 13:26 EDT * Diana Alexandra MD: PERFORM Event Display: Discharge/Transfer Note Hospital Authored Date: Patient: ??HARMAN LANGSTON ? Age:??59 Years?Sex:??Male?:??1965?? 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) Nicotine dependence (F17.200) Chronic low back pain (M54.50) Opiate dependence (F11.20) GERD (gastroesophageal reflux disease) (K21.9) Major depressive disorder (F32.9) _ Discharge Medications Acetaminophen (Tylenol 325 mg oral tablet)?1 - 2 tablet?By Mouth?Every 4 hours?as needed?Pain , Mild Aspirin (aspirin 81 mg oral delayed release tablet)?81?Milligram?By Mouth?Daily bictegravir/emtricitabine/tenofovir (Biktarvy oral tablet)?1?tab(s)?By Mouth?Daily Buprenorphine-Naloxone (Suboxone 8 mg-2 mg sublingual film)?1?Film?Sublingual?3 times aday BuPROpion (Wellbutrin SR 150 mg/12 hours oral tablet, extended release)?1?tab(s)?150?Milligram?By Mouth?2 times a day?taper by PCP and discontinue gradually as outpatient BusPIRone (busPIRone 15 mg oral tablet)?1?tab(s)?15?Milligram?By Mouth?2 times a day?Total per dosin mg BusPIRone (busPIRone 10 mg oral tablet)?10?Milligram?1?tablet?By Mouth?2 times a day?Total per dosin mg Clopidogrel (clopidogrel 75 mg oral tablet)?75?Milligram?By Mouth?Daily Folic Acid (folic acid 1 mg oral tablet)?1?Milligram?By Mouth?Daily Gabapentin (Neurontin 800 mg oral tablet)?1?tab(s)?800?Milligram?By Mouth?3 timesa day Lactulose (lactulose 10 gm/15 ml oral syrup)?30?Milliliter?20?gram?By Mouth?3 times a day?for 14?Days Melatonin (melatonin 3 mg oral tablet)?1?tab(s)?3?Milligram?By Mouth?Daily at bedtime?as needed?as needed for insomnia Metformin (metFORMIN 500 mg oral tablet, extended release)?1?tab(s)?500?Milligram?ByMouth?Daily Multivitamin With Minerals (Multivit Therapeutic/Minerals Tablet)?1?tab(s)?By Mouth?Daily Nicotine (nicotine 21 mg/24 hr transdermal film, extended release)?1?patch(es)?Topically?Daily?for 14?Days Pantoprazole (Protonix 40 mg oral delayed release tablet)?1?tab(s)?40?Milligram?By Mouth?Daily Pyridoxine (pyridoxine 50 mg oral tablet)?50?Milligram?By Mouth?Daily Quetiapine (SEROquel 300 mg oral tablet)?1?tab(s)?300?Milligram?By Mouth?Daily atbedtime?as needed?Sleep Thiamine (thiamine 100 mg oral tablet)?100?Milligram?By Mouth?Daily umeclidinium (Incruse Ellipta 62.5 mcg/inh inhalation powder)?1?puff(s)?Inhalation?Every 24 hours ? Quality Measures Tobacco Use Treatment:?Cessation Medication Prescribed on Discharge:??Tobacco Cessation Medication Prescribed ? Allergies Allergies ?(Active and Proposed Allergies Only) Toradol? (Severity: Unknown severity, Onset: Unknown) ? PCP Follow-Up/Heads-Up Blood cultures to be followed outpatient Hospital Course ??59-year-old male with past medical history significant for??polysubstance abuse,??opiate dependence on??Suboxone, alcohol use disorder,??previous alcohol withdrawal seizure,??alcoholic liver cirrhosis with previous hepatic encephalopathy,??hypertension,??diabetes mellitus type 2,??right??carotid s tenosis status post stent??11/06/2023,??HIV disease,??COPD, tobacco use disorder, chronic back pain,??GERD, anxiety, and depression??who was brought to the emergency room this morning after an apparent seizure??at the hotel he was staying at.??The patient states that he has recently relapsed with alcohol use,??and last drank last night.??This morning,??he decided to snort a crushed Wellbutrin pill.??Per EMS, he had a witnessed tonic-clonic seizure for approximately 30 seconds when they arrived.?Laboratory workup was significant for leukocytosis, anion gap metabolic acidosis, and elevated ammonia level with chronic abnormal LFTs.??Admission requested for alcohol withdrawal seizure and hepatic encephalopathy. ?? Alcohol withdrawal seizure (F10.939) ?Associated with??Alcohol use disorder, moderate, dependence (F10.20) The patient had a witnessed tonic-clonic seizure today, likely related to alcohol withdrawal.??He does have a history of this.??Nasal inhalation of??Wellbutrin??could have also lowered his seizure threshold.??He denied other substance use.??His initial CIWA score here was 13, now improved to 4 after IV lorazepam in the emergency room.?He is??at increased risk for complicated withdrawal??due tohistory of withdrawal and DTs/prior seizure,??lab evidence of liver disease, heavy and sustained alcohol use, and age greater than 30. -??Continue symptom-triggered treatment protocol of alcohol withdrawal syndrome (EB) with benzodiazepines (and possibly??phenobarbital) as follows: ?? If CIWA???Ar less than 14 during first 24 hours of EB: Lorazepam 1-2 mg PO/IV every 1 to 2 hours as needed for CIWA???Ar 1-13.??If unchanged or escalating CIWA-Ar score despite 6 mg of Lorazepam, consider Phenobarbital and contact provider. ?? Monitor for oversedation.??We will continue the patient's prescribed gabapentin.??Consider adjunctive medications such as Valproate, Clonidine, Haldol, and Risperdone for anxiety / agitation / autonomic symptoms. ?? Start Thiamine 100 mg orally twice daily, Folic acid 1 mg daily, MVI daily, and Pyridoxine 50 mg daily. ?? Addiction medicine consultation requested. ?? Given seizure, and??the patient's history of fall??last night while intoxicated, we will obtain head CT??to rule out intracranial hemorrhage.??He does not have??any other significant focal neurologicfindings at this time.? 02/13-patient was seen and examined in AM.?? CIWA score??0. ??Patient is alert recounted x 3. ??Denies any complaints and wants to go.?? Previously??addiction medicine saw the patient??and he refused any help??for alcohol??craving.??informed that??most likely patient's Wellbutrin??use caused his??seizure.?? However?? cannot??discontinue Wellbutrin??suddenly and needs to be tapered,??to closely followed with his PCP??for tapering and gradual discontinuation of Wellbutrin.?? Social work was consulted for homelessness. ??Patient is??going to stay with his friend??per social work. ?? Hepatic encephalopathy (K76.82)??resolved ?Associated with??Alcoholic cirrhosis of liver (K70.30) The patient's ammonia level is 144, with chronic??abnormal LFTs due to alcoholic liver cirrhosis.??He does not have significant ascites on exam.??Stable CBC without evidence of active bleeding??or history of varices.??The patient is currently alert and oriented x 3, no asterixis on discharge -Continue lactulose 30 cc 3 times daily to promote 2-3 loose bowel movements daily -Monitor LFTs and ammonia level ?? Metabolic acidosis, increased anion gap (E87.29):??Resolved I suspect??this is secondary to??alcoholic ketoacidosis.??Unfortunately lactic acid level was not obtained in the emergency room, which may have been elevated in the setting of seizure.??Renal function is stable. The patient received 2 L LR IV bolusing, and is not vomiting.??No significant abdominal pain. Encourage oral intake. Will monitor metabolic panel. ?? Hypertension (I10):??The patient??was initially hypertensive in the setting of alcohol??withdrawal,but now controlled.??He is not currently taking??any??blood pressure medications due to vasovagal??hypotension on last admission.??He states he is no longer using midodrine. We will continue to monitor blood pressure. Continue aspirin and clopidogrel??as prescribed after??right carotid stent in October. ?? Type 2 diabetes mellitus (E11.9):??Hold metformin. Monitor POC's with insulin lispro sliding scale coverage. ?? HIV disease (B20):??Continue Biktarvy as prescribed. ?? 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 DuoNebs will be ordered as needed for wheezing. Smoking cessation counseling provided for 4 minutes. Nicotine 21 mg patch daily??accepted. ?? Chronic low back pain (M54.50) ?Grouped with??Opiate dependence (F11.20) Continue Suboxone as prescribed. Continue gabapentin as prescribed. ?? GERD (gastroesophageal reflux disease) (K21.9):??Continue PPI as prescribed. ?? Major depressive disorder (F32.9):??Mood is currently stable. Continue??bupropion,??buspirone,??and quetiapine as prescribed. Check EKG??for QT interval. ?? Objective Assessment and Plan Discharge Planning:? Measurements?? Height: 180 cm (02/14/24) Weight: 90 kg (02/13/24) Dry Weight: 84.5 kg (02/13/24) Body Mass Index:??27.78 kg/m2??High (02/13/24) ? Vital Signs?? Temperature: 97.8 DegF (02/14/24 08:23:00) Temperature Route: Axillary (02/14/24 08:23:00) Pulse Rate: 71 bpm (02/14/24 08:23:00) Pulse Rate: 71 bpm (02/14/24 08:23:00) Respiratory Rate: 16 br/min (02/14/24 11:07:00) Vented: No (02/14/24 08:00:00) Systolic Blood Pressure: 107 mm Hg (02/14/24 08:23:00) Systolic Blood Pressure: 107 mm Hg (02/14/24 08:23:00) Diastolic Blood Pressure:??88 mm Hg??High (02/14/24 08:23:00) Diastolic Blood Pressure:??88 mm Hg??High (02/14/24 08:23:00) Blood pressure sites: Leg, right (02/14/24 08:23:00) Mean Arterial Pressure: 94 mm Hg (02/14/24 08:23:00) Pulse Pressure: 19 mm Hg (02/14/24 08:23:00) Oxygen Saturation: 96 % (02/14/24 08:23:00) Liters per Minute: 2 L/min (02/13/24 20:47:00) Mode of Delivery (Oxygen): Room air (02/14/24 08:23:00) Early Warning Score: 9 (02/14/24 12:00:15) ? . Physical Exam General Appearance: Alert, appears stated age, no distress Cardiac: RRR, S1 & S2 present, no m / r / g appreciated Chest: Clear to auscultation bilaterally, no wheezing / ronchi / rales, no tenderness to percussion Abdomen: Soft, nontender, no distention, no rebound or guarding, no masses, normal bowel sounds in all quadrants Extremities: No clubbing, cyanosis, or edema. ??2+ distal pulses.?? No calf tenderness or cords Skin: Warm, no rash Neuro: ??A & O x 3, CN III-XII intact, strength 5/5 of upper / lower extremities bilaterally, no drift, gross sensation intact,??no asterixis and??no tremor Psych: ??Stable mood, appropriate affect Pending Results Blood Culture ordered on 02/13/2024 Blood Culture #2 ordered on 02/13/2024 Cannabinoid Urine Screen ordered on 02/13/2024 Cocaine Urine Screen ordered on 02/13/2024 Hold Lavender Tube (BB) ordered on 02/13/2024 Lactic Acid Level ordered on 02/13/2024 Opiate Screen Urine ordered on 02/13/2024 Follow-Up Appointments Added Follow Up ?Time Frame ?Comments Naga KOHLER, Shayy Barnes Patient Instructions -??Blood culture??to be followed by PCP -Wellbutrin??use likely caused?seizure.?? Follow-up with PCP to slowly taper it and??then discontinue -Nicotine patches sent -Will suggest??to stop drinking alcohol??and smoking tobacco -As per??[place] law,??after any seizure,??recommended no driving for 6-month Home Health Face to Face ^HomeHealthFTF Results Discharge Labs BLOOD COUNT & DIFF WBC 10.4 k/mm3 ()?? 02/14/2024 00:44 RBC 3.72 m/mm3 (Low)?? 02/14/2024 00:44 Hgb 12.0 Gm/dL (Low)?? 02/14/2024 00:44 Hct 35.1 % (Low)?? 02/14/2024 00:44 MCV 94.4 femtoliters (High)?? 02/14/2024 00:44 MCH 32.3 pg ()?? 02/14/2024 00:44 MCHC 34.2 g/dL ()?? 02/14/2024 00:44 Platelet Count 128 k/mm3 (Low)?? 02/14/2024 00:44 RDW-SD 55.1 femtoliters (High)?? 02/14/2024 00:44 MPV 11.5 femtoliters ()?? 02/14/2024 00:44 Nucleated RBC (Automated) 0.0 #/100 WBC'S ()?? 02/14/2024 00:44 Abs. NRBC 0.0 k/mm3 ()?? 02/14/2024 00:44 Abs. Neut 6.7 k/mm3 ()?? 02/14/2024 00:44 Abs. Lymph 2.5 k/mm3 ()?? 02/14/2024 00:44 Abs. Piatt 0.9 k/mm3 ()?? 02/14/2024 00:44 Abs. Eo 0.2 k/mm3 ()?? 02/14/2024 00:44 Abs. Baso 0.1 k/mm3 ()?? 02/14/2024 00:44 Neut % 64.2 % ()?? 02/14/2024 00:44 Lymph % 23.7 % ()?? 02/14/2024 00:44 Piatt % 9.0 % ()?? 02/14/2024 00:44 Eos % 1.6 % ()?? 02/14/2024 00:44 Baso % 0.9 % ()?? 02/14/2024 00:44 Band % 1.6 % ()?? 02/13/2024 06:45 Atypical Lymph % 3.3 % ()?? 02/13/2024 06:45 Platelet Estimate ADEQUATE ()?? 02/13/2024 06:45 Imm Gran 0.6 % ()?? 02/14/2024 00:44 Abs. Imm Gran 0.1 k/mm3 ()?? 02/14/2024 00:44 ? CARDIAC High Sensitivity Troponin (HSTnT) 8 ng/L ()?? 02/13/2024 11:30 ? CHEM GENERAL Sodium 135 mmol/L ()?? 02/14/2024 00:44 Potassium 3.7 mmol/L ()?? 02/14/2024 00:44 Chloride 100 mmol/L ()?? 02/14/2024 00:44 Bicarbonate Level 24 mmol/L ()?? 02/14/2024 00:44 Anion Gap 11 ()?? 02/14/2024 00:44 Glucose Level 133 mg/dL (High)?? 02/14/2024 00:44 Glucose, POC 223 mg/dL (High)?? 02/14/2024 11:58 BUN 7 mg/dL ()?? 02/14/2024 00:44 Creatinine-Blood 0.85 mg/dL ()?? 02/14/2024 00:44 Estimated GFR Creatinine 101 ML/MIN/1.73 M2 ()?? 02/14/2024 00:44 Calcium 8.2 mg/dL (Low)?? 02/14/2024 00:44 Phosphorus 4.1 mg/dL ()?? 02/14/2024 00:44 Magnesium 2.0 mg/dL ()?? 02/14/2024 00:44 Protein, Total 6.7 Gm/dL ()?? 02/14/2024 00:44 Albumin 2.9 Gm/dL (Low)?? 02/14/2024 00:44 AG Ratio 0.8 ()?? 02/14/2024 00:44 Alkaline Phosphatase 218 units/L (High)?? 02/14/2024 00:44 Lipase 35 units/L ()?? 02/13/2024 06:45 AST (SGOT) 99 units/L (High)?? 02/14/2024 00:44 ALT (SGPT) 50 units/L (High)?? 02/14/2024 00:44 Bilirubin, Total 2.0 mg/dL (High)?? 02/14/2024 00:44 ? COAG INR 1.2 (High)?? 02/14/2024 00:44 Protime (PT) 12.9 seconds (High)?? 02/14/2024 00:44 ?? MISC. CHEMISTRY Ammonia, Venous 50 ??mole/L ()?? 02/14/2024 08:17 ? TOXICOLOGY/TDM Ethanol, Serum or Plasma 38 mg/dL (Abnormal)?? 02/13/2024 06:45 ? URINE OTHER Est Creatinine Clearance 100.48 mL/min ()?? 02/14/2024 02:03 ? _40 minutes spent on discharge * Taya Bolton RN: PERFORM Event Display: Patient Education/Instruction Authored Date: [id number] Inpatient Adult Discharge Instructions. [address] [address] Name: HARMAN LANGSTON : 1965?? Visit: 02/13/2024 11:48?? Current Date: 02/14/2024 13:19 ?? Account: [id number]?? Inpatient Adult Discharge Instructions We would like [...] and their families. Surveys are administered by [employer] ?? If further treatment with your primary care physician or another doctor is recommended, it is important for you to keep the appointment. Call your primary care physician or return to the Emergency Department immediately if your condition worsens, fails to improve, or new symptoms develop. If you need to find a doctor, you can call [facility] for a referral at [phone] or toll free at [phone]) or log in to [email or web address].. ?? [facility], in keeping with [facility] guidance, no longer requires face masks for [...] a health care nba of your choosing. [employer] is a website that allows you to securely view your medical information including your hospital discharge summary, office visit summaries, medications and follow-up visits. You can also request appointments, renew medications, and request access to your medical information using a health care nba of your choosing, or just ask a question. You can enroll at [email or web address] or register during your next office visit. You have been discharged from [facility], Patient Care Unit: S64??. If you have any questions regarding these instructions, including results of studies pending, afteryou leave, please call us and we will be happy to assist you 17/04. [facility] Your Care Team Attending Physician Diana Alexandra MD?? Consulting Providers Diana Alexandra MD?? Discharging Providers Diana Alexandra MD Reason for Your Visit Staff at [facility] heard patient and called 911 becuase patient was twitching, pt was unable to answer questions when EMS arrived, pt had grand mal seizure in front of EMS for 30 seconds. ??Pt now postictal?? Your Diagnosis Alcohol withdrawal seizure Alcohol use disorder, moderate, dependence Hepatic encephalopathy Alcoholic cirrhosis of liver Metabolic acidosis, increased anion gap Hypertension Type 2 diabetes mellitus HIV disease COPD with emphysema Nicotine dependence Chronic low back pain Opiate dependence GERD (gastroesophageal reflux disease) Major depressive disorder Tests Performed Below is a partial list of the tests performed during your hospitalization. You may have had other tests and procedures not included in this list. Please discuss all test results with your provider. Alcohol Level Ammonia Venous CBC w/ Differential Comprehensive Metabolic Panel GLUCOSE POC High??Sensitivity??Troponin T INR Lactate Level?-- Results Pending -- Lipase Magnesium Level Phosphorus Level CT Head/Brain W/O Contrast You will be contacted within 72 hours with your results. Blood Culture?? Blood Culture #2?? Cannabinoid Urine Screen?? Cocaine Urine Screen?? Hold Lavender Tube (BB)?? Lactic Acid Level (Lactate Level)?? Opiate Screen Urine?? Primary Care Provider Shayy Nielson NP? Advance Directive Health Care Proxy on File Yes - Health Care Proxy Discharge Vitals Temperature: 97.8 DegF Height: 180 cm Pulse Rate: 71 bpm Weight: 90 kg Pulse Rate: 71 bpm Body Mass Index:??27.78 kg/m2??High Respiratory Rate: 16 br/min Body surface area: 2.12 Systolic Blood Pressure: 107 mm Hg ?? Systolic Blood Pressure: 107 mm Hg ?? Diastolic Blood Pressure:??88 mm Hg??High ?? Diastolic Blood Pressure:??88 mm Hg??High ?? Oxygen Saturation: 96 % ?? Studies Pending All studies ordered during this hospital stay have been completed unless listed below. Please discuss all pending results with your provider listed above in these instructions. ?? Blood Culture?? Blood Culture #2?? Cannabinoid Urine Screen?? Cocaine Urine Screen?? Hold Lavender Tube (BB)?? Lactic Acid Level (Lactate Level)?? Opiate Screen Urine?? What to do next Instructions From Your Doctor -??Blood culture??to be followed by PCP -Wellbutrin??use likely caused?seizure.?? Follow-up with PCP to slowly taper it and??then discontinue -Nicotine patches sent -Will suggest??to stop drinking alcohol??and smoking tobacco -As per??[place] law,??after any seizure,??recommended no driving for 6-month ?? Orders? 02/14/24 13:17:00 EDT?? You Need to Schedule the Following Appointments Follow Up with??Shayy Nielson NP Where: [address] [facility], [place] [address]- Discharge Medications HARMAN LANGSTON :1965 Visit Date:02/13/2024 Medications: Please continue your medications until treatment is completed or stopped by your provider. Medications not listed below should be discontinued. Discuss any questions related to medications with your provider. What How Much When Instructions Next Dose New Lactulose (lactulose 10 gm/ 15 ml oral syrup) 30 Milliliter Oral 3 times a day Duration: 14 Days Pickup at [place] [address] 02/13 at 3pm Changed BuPROpion (Wellbutrin SR 150 mg/ 12 hours oral tablet, extended release) 1 tab(s) Oral Twice a day taper by PCP and discontinue gradually as outpatient ?? 02/13 3pm Changed Nicotine (nicotine 21 mg/ 24 hr transdermal film, extended release) 1 patch(es) Topically Daily Duration: 14 Days Pickup at [place] [address] 02/14 9a Unchanged Acetaminophen (Tylenol 325 mg oral tablet) 1 - 2 tablet Oral Every 4 hours as needed for Pain , Mild Unchanged Aspirin (aspirin 81 mg oral delayed release tablet) 81 Milligram Oral Daily 02/14 9a Unchanged bictegravir/ emtricitabine/ tenofovir (Biktarvy oral tablet) 1 tab(s) Oral Daily 02/14 9am Unchanged Buprenorphine-Naloxone (Suboxone 8 mg-2 mg sublingual film) 1 Film Sublingual 3 times a day 02/14 9am Unchanged BusPIRone (busPIRone 10 mg oral tablet) 1 tab(s) Oral Twice a day Total per dosin mg ?? 02/13?? 3 pm Unchanged BusPIRone (busPIRone 15 mg oral tablet) 1 tab(s) Oral Twice a day Total per dosin mg ?? 02/13 3pm Unchanged Clopidogrel (clopidogrel 75 mg oral tablet) 75 Milligram Oral Daily 02/14 9am Unchanged Folic Acid (folic acid 1 mg oral tablet) 1 Milligram Oral Daily 02/14 9am Unchanged Gabapentin (Neurontin 800 mg oral tablet) 1 tab(s) Oral 3 times a day 02/13?? 3pm Unchanged Melatonin (melatonin 3 mg oral tablet) 1 tab(s) Oral Daily at Bedtime as needed for as needed for insomnia 02/13 9pm Unchanged Metformin (metFORMIN 500 mg oral tablet, extended release) 1 tab(s) Oral Daily 02/14 9am Unchanged Multivitamin With Minerals (Multivit Therapeutic/ Minerals Tablet) 1 tab(s) Oral Daily 02/14 9am Unchanged Pantoprazole (Protonix 40 mg oral delayed release tablet) 1 tab(s) Oral Daily 02/14 9am Unchanged Pyridoxine (pyridoxine 50 mg oral tablet) 50 Milligram Oral Daily 02/14 9am Unchanged Quetiapine (SEROquel 300 mg oral tablet) 1 tab(s) Oral Daily at Bedtime as needed for Sleep 02/13 9pm Unchanged Thiamine (thiamine 100 mg oral tablet) 100 Milligram Oral Daily 02/14 9am Unchanged umeclidinium (Incruse Ellipta 62.5 mcg/ inh inhalation powder) 1 puff(s) Inhalation Every 24 hours 02/14 9am Pharmacy Information [facility]: [address] [place], [place] [id number] [phone] ?? What How Much When Comments Stop Taking Amoxicillin (amoxicillin 500 mg oral capsule) 1,000 Milligram Oral 3 times a day Stop Taking Cyclobenzaprine (cyclobenzaprine 10 mg oral tablet) 1 tab(s) Oral 3 times a day as needed for Spasm Stop Taking Docusate (DOK sodium 100 mg oral capsule) 1 capsule Oral Twice a day as needed for as needed for constipation Stop Taking Hydromorphone (HYDROmorphone 4 mg oral tablet) 1 tab(s) Oral Every 4 hours as needed for Pain , Severe Stop Taking HydrOXYzine (hydrOXYzine pamoate 50 mg oral capsule) 1 capsule Oral Every 6 hours as needed for as needed for anxiety Stop Taking Midodrine (midodrine 5 mg oral tablet) 5 Milligram Oral 3 times a day as needed for Other as needed for SBP <100 ?? Stop Taking Polyethylene Glycol 3350 (MiraLax oral powder for reconstitution) 17 gram Oral Daily as needed for Constipation Stop Taking Senna (senna 187 mg oral tablet) 1 tab(s) Oral Twice a day as needed for Constipation Prescription Given During Visit Lactulose (lactulose 10 gm/15 ml oral syrup) - 30 mL = 20 Gm, By Mouth, 3 times a day, # 1,260 mL, 0 Refills, [facility], [address] [place] [phone]?? Nicotine (nicotine 21 mg/24 hr transdermal film, extended release) - 1 patch, Topically, Daily, # 14 patch, 0 Refills, [facility], [address] [place] [phone]?? Laboratory Results Below is a partial list of the most recent Laboratory test results done prior to this discharge. You may have had other tests and procedures not included in this list. Please discuss all test resultswith your provider. Est Creatinine Clearance - 100.48 mL/min (02/14/2024) Alcohol Level (02/13/2024) ???Ethanol, Serum or Plasma - 38 mg/dL Ammonia Venous (02/14/2024) ???Ammonia, Venous - 50 ??mole/L CBC w/ Differential (02/14/2024) ???WBC - 10.4 k/mm3???RBC - 3.72 m/mm3???Hgb - 12.0 Gm/dL???Hct - 35.1 %???MCV - 94.4 femtoliters???MCH - 32.3 pg???MCHC - 34.2 g/dL???Platelet Count - 128 k/mm3???RDW-SD - 55.1 femtoliters???MPV - 11.5 femtoliters???Nucleated RBC (Automated) - 0.0 #/100 WBC'S???Abs. NRBC - 0.0 k/mm3???Abs. Neut - 6.7 k/mm3???Abs. Lymph - 2.5 k/mm3???Abs. Piatt - 0.9 k/mm3???Abs. Eo - 0.2 k/mm3???Abs. Baso - 0.1 k/mm3???Neut % - 64.2 %???Lymph % - 23.7 %???Piatt % - 9.0 %???Eos % - 1.6 %???Baso % - 0.9 %???Imm Gran - 0.6 %???Abs. Imm Gran - 0.1 k/mm3 Comprehensive Metabolic Panel (02/14/2024) ???Sodium - 135 mmol/L???Potassium - 3.7 mmol/L???Chloride - 100 mmol/L???Bicarbonate Level - 24 mmol/L???Anion Gap - 11???Glucose Level - 133 mg/dL???BUN - 7 mg/dL???Creatinine-Blood - 0.85 mg/dL???Estimated GFR Creatinine - 101 ML/MIN/1.73 M2???Calcium - 8.2 mg/dL???Protein, Total - 6.7 Gm/dL???Al bumin - 2.9 Gm/dL???AG Ratio - 0.8???Alkaline Phosphatase - 218 units/L???AST (SGOT) - 99 units/L???ALT (SGPT) - 50 units/L???Bilirubin, Total - 2.0 mg/dL GLUCOSE POC (02/14/2024) ???Glucose, POC - 223 mg/dL High??Sensitivity??Troponin T (02/13/2024) ???High Sensitivity Troponin (HSTnT) - 8 ng/L INR (02/14/2024) ???INR - 1.2???Protime (PT) - 12.9 seconds Lipase (02/13/2024) ???Lipase - 35 units/L Magnesium Level (02/14/2024) ???Magnesium - 2.0 mg/dL Phosphorus Level (02/14/2024) ???Phosphorus - 4.1 mg/dL Allergies (NKA means No Known Allergies) Toradol Problems Active Problems??(19) Alcohol use disorder, moderate, dependence?? Alcoholic cirrhosis of liver?? Cannabis abuse?? Carotid stenosis, right?? Chronic low back pain?? Cocaine abuse?? COPD with emphysema?? DDD (degenerative disc disease)?? GERD (gastroesophageal reflux disease)?? H/O repair of right rotator cuff?? Heroin overdose?? HIV?? HIV disease?? [id number] positive?? Hypertension?? Major depressive disorder?? Nicotine dependence?? Opiate dependence?? Type 2 diabetes mellitus?? Education Materials Below is the list of Educational Leaflet Providered with your Discharge Instructions. Valuables and Belongings I fully understand and agree that [facility] accepts no responsibility for all my personal [...] patient Date for Pt to Sign Valuables/Belongings: 02/13/24 14:23:00 ?? Other Discharge Information ? Pulmonary Rehab Status?? Pulmonary Rehab Discharge Status?? Respiratory Rate: 16 br/min ? Common Emergency Awareness Tips IS [...] are strongly encouraged to quit. Please call [facility] [employer] Link at [phone] or [phone] ([phone]) or log in to [email or web address] for referrals to smoking cessation programs. ?? 986 Suicide & Crisis Lifeline is available 17/04 if you or someone you know needs to find a reason to keep living. By calling 704 you'll be connected to a skilled, trained counselor at a crisis center in your area. INPATIENT DISCHARGE INSTRUCTIONS SIGNATURE HARMAN IBARRA Location:[facility] Registration Date and Time:02/13/2024 11:48 EDT Primary Care Physician: Naga KOHLER, Shayy Barnes, Attending Physician: Diana Alexandra MD, I HARMAN LANGSTON, have received the above patient education materials/instructions and have verbalized understanding. If ambulance or transport services are being used I further acknowledge being given a choice of service. ?? If you need to contact me, please call me at this number: . Patient/Gas Meter Reader Name: Patient/Gas Meter Reader Signature: Relationship to Patient: Witness Name/Signature: Date: Patient Care team information Care Team Personnel Name: Flor Ludwig RN Position: [facility] RN Member Role: Primary Care Nurse Name: Taya Bolton RN Position: [facility] RN Member Role: Primary Care Nurse Name: Thuy Ferrer RN Position: [facility] RN Member Role: Primary Care Nurse Name: Mary Adorno Position: [facility] Outreach Member Role: Lifetime Consulting Physician Name: Ekaterina Richardson RN Position: [facility] RN Member Role: Primary Care Nurse Name: Vale Watson RN Position: [facility] RN Member Role: Primary Care Nurse Name: Kelly Menon RN Position: [facility] RN Member Role: Primary Care Nurse Name: Shonda White RN Position: [facility] RN Member Role: Primary Care Nurse Name: Lorie Desai RN Position: [facility] RN Member Role: Primary Care Nurse Name: Lon Stephens RN Position: [facility] SN RN Member Role: Primary Care Nurse Name: Debbie Hawkins RN Position: [facility] ED RN W/OE and Tasks Member Role: Primary Care Nurse Name: Paul Hurley Position: [facility] RN Member Role: Primary Care Nurse Name: Megan Bowens RN Position: [facility] RN Member Role: Primary Care Nurse Name: Abigail Balderas RN Position: [facility] RN Member Role: Primary Care Nurse Name: Shauna Ayala RN Position: [facility] RN Member Role: Primary Care Nurse Name: Yong Olsen RN Position: [facility] SN RN Member Role: Primary Care Nurse Name: Octavia Tellez RN Position: [facility] RN Member Role: Primary Care Nurse Name: Krys Weiss RN Position: [facility] RN Member Role: Primary Care Nurse Name: Annia James RN Position: [facility] Outbound Sales Agent Member Role: Primary Care Nurse Name: Mary Frost RN Position: [facility] RN Member Role: Primary Care Nurse Name: Shayy Nielson NP Position: [facility] Outreach Member Role: PCP Address: Address: [address] [place] [id number] Name: Heide Eldridge RN Position: [facility] RN Member Role: Primary Care Nurse Name: Nick Simmons RN Position: [facility] RN Member Role: Primary Care Nurse Name: Debbie Haq RN Position: [facility] RN Member Role: Primary Care Nurse Name: Barbra Jerez RN Position: [facility] RN Member Role: Primary Care Nurse Name: Mason Ornelas RN Position: [facility] Outbound Sales Agent Member Role: Primary Care Nurse Care Team Related Persons Name: SHONDA VARGAS Address: home [address] [place] [address] Name: VANDANA LANGSTON Address: home [address] [place] [address]
[2024-03-01] MEDS: Fluticasone/Vilanterol 100/25 BLST.W.DEV 1 PUFF INHALE (11:24)
--- NOTE | 2024-03-01 12:52 | P.PNIM_ITS ---
Subjective Subjective Date of Service: 03/01/24 Interval History: Seen and examined this morning Follow-up for abdominal pain, encephalopathy More awake and alert this morning, less confused Still reporting lower abdominal pain, abdominal distention, passing gas, but no bowel movement Review of Systems Review of Systems: Yes all other systems are reviewed and are negative Constitutional Constitutional: Denies fever(s) Cardiovascular Cardiovascular: Denies chest pain and Denies dyspnea Respiratory Respiratory: Denies dyspnea Physical Exam 2 Vital Signs: Vital Signs: Last Vital Signs Temp 97.9 F 03/01/24 11:09 Pulse 75 03/01/24 11:24 Resp 16 03/01/24 11:24 BP 126/69 03/01/24 11:09 Pulse Ox 92 03/01/24 11:09 O2 Del Method Nasal Cannula 03/01/24 11:09 O2 Flow Rate 4 03/01/24 11:09 BMI result Body Mass Index 26.6 Const: General: cooperative, comfortable, no acute distress, alert and awake Nutritional Appearance: average body habitus Orientation/consciousness: p atient oriented x3 Resp: Effort & Inspection: normal respiratory effort, able to speak in complete sentences, no respiratory distress and no use of accessory muscles A uscultation: clear to auscultation bilaterally Cardio: Rate: regular rate GI: Other: soft, mild distention, mild ttp b/l lower quadrant primarily. No rebound, no guarding Neuro: Other: grossly nonfocal; face symmetrical, tongue midline, moving all extremities General: patient oriented x3 and moves all extremities Extrem: General: Yes no pedal edema Objective Data Active Medications Acetaminophen (Acetaminophen 325 Mg Tablet) 650 mg PO Q6H PRN PRN Reason: Pain, Mild (Pain Scale 1-3) Bictegravir/Emtricitabine/Tenofovir (Bictegrav/Emtricit/Tenofov Ala Tablet) 1 tab PO DAILY [facility] Last Admin: 03/01/24 08:51 Dose: 1 tab Documented By: BOBO Buprenorphine/Naloxone (Buprenorphine/Naloxone 8/2 Mg Film) 1 film SUBLINGUAL TID [facility] Last Admin: 03/01/24 08:51 Dose: 1 film Documented By: BOBO Bupropion HCl (Bupropion Hcl Xl 150 Mg Tab.Er.24h) 150 mg PO BID@0900,1500 [facility] Last Admin: 03/01/24 08:51 Dose: 150 mg Documented By: BOBO Buspirone HCl (Buspirone Hcl 5 Mg Tablet) 15 mg PO BID [facility] Last Admin: 03/01/24 10:04 Dose: Not Given Documented By: BOBO Non-Admin Reason: Physician Held Med Buspirone HCl (Buspirone Hcl 10 Mg Tablet) 10 mg PO BID [facility] Last Admin: 03/01/24 10:05 Dose: Not Given Documented By: BOBO Non-Admin Reason: Physician Held Med Clopidogrel Bisulfate (Clopidogrel Bisulfate 75 Mg Tablet) 75 mg PO DAILY [facility] Last Admin: 03/01/24 08:51 Dose: 75 mg Documented By: BOBO Docusate Sodium (Docusate Sodium 100 Mg Capsule) 100 mg PO BID [facility] Last Admin: 03/01/24 08:50 Dose: 100 mg Documented By: BOBO Famotidine (Famotidine 20 Mg Tablet) 20 mg PO DAILY [facility] Last Admin: 03/01/24 08:51 Dose: 20 mg Documented By: BOBO Fluticasone/Vilanterol (Fluticasone/Vilanterol 100/25 Blst.W.Dev) 1 puff INHALE RDAILY [facility] Last Admin: 03/01/24 11:24 Dose: 1 puff Documented By: EDISON Folic Acid (Folic Acid 1 Mg Tablet) 1 mg PO DAILY [facility] Last Admin: 03/01/24 08:51 Dose: 1 mg Documented By: BOBO Glucose (Glucose Gel 15 Gm Gel..Gram.) 15 gm PO Q15M PRN; Protocol PRN Reason: per Hypoglycemia Standing Ord. Thiamine HCl 200 mg/ Sodium (Chloride) 102 mls @ 204 mls/hr IV Q8H [facility] Last Infusion: 03/01/24 11:03 Dose: Infused Documented By: BOBO Dextrose (D10) 250 mls @ 750 mls/hr IV Q15M PRN; Protocol PRN Reason: per Hypoglycemia Standing Ord. Vancomycin HCl 1,250 mg/ (Sodium Chloride) 250 mls @ 166.667 mls/hr IV Q12H [facility] Insulin Human Lispro (Insulin Lispro 100 Unit/Ml 3 Ml Vial) 0 unit SUBCUT QIDACHS [facility]; Protocol Last Admin: 03/01/24 12:40 Dose: 2 unit Documented By: BOBO Lactulose (Lactulose 20 Gm/30 Ml Solution) 20 gm PO TID [facility] Nicotine (Nicotine 14 Mg Patch.Td24) 14 mg TRANSDERMA DAILY [facility] Last Admin: 03/01/24 08:50 Dose: 14 mg Documented By: BOBO Ondansetron HCl (Ondansetron Hcl 4 Mg/2 Ml Vial) 4 mg IVPUSH Q6H PRN PRN Reason: Nausea and Vomiting Last Admin: 03/01/24 06:04 Dose: 4 mg Documented By: DESTIN Pharmacy Consult (Consult Rx Vancomycin Dosing) 1 each MISCELLANE DAILY PRN PRN Reason: Consult order Quetiapine Fumarate (Quetiapine Fumarate 200 Mg Tablet) 200 mg PO BEDTIME [facility] Quetiapine Fumarate (Quetiapine Fumarate 50 Mg Tablet) 50 mg PO BEDTIME [facility] Sodium Chloride (0.9 % Sodium Chloride Flush 3 Ml Syringe) 3 ml IVFLUSH QSHIFT [facility] Last Admin: 03/01/24 08:51 Dose: 3 ml Documented By: BOBO Labs 03/01/24 07:13 03/01/24 07:13 Labs: Laboratory Results - last 24 hr 02/29/24 02/29/24 02/29/24 13:10 14:49 17:19 MCV MCH MCHC RDW Plt Count MPV Absolute Nucleated RBC Nucleated RBC % (auto) Anion Gap Estim Creat Clear Calc Estimated GFR POC Glucose Random Glucose Lactic Acid F/U @ 2Hr 1.3 Calcium Total Bilirubin 4.2 H Direct Bilirubin 3.0 H AST 97 H ALT 44 H Alkaline Phosphatase 325 H Total Protein 8.6 H Albumin 3.3 L Urine Color Yellow Urine Appearance Clear Urine pH 7.0 Ur Specific [place] >= 1.030 H Urine Protein Negative Urine Glucose (UA) >=1000 H Urine Ketones Negative Urine Blood Negative Urine Nitrite Negative Ur Leukocyte Esterase Negative Urine RBC 0-2 Urine WBC 0-5 Ur Squamous Epith Cells 0-2 Urine Bacteria None Seen Hyaline Casts 0-2 Urine Opiates Screen Not Detected Ur Buprenorphine Scrn Positive H Ur Oxycodone Screen Not Detected Urine Methadone Screen Not Detected Urine Fentanyl Screen Not Detected Ur Barbiturates Screen Not Detected Ur Phencyclidine Scrn Not Detected Ur Amphetamines Screen Not Detected U Benzodiazepines Scrn Not Detected Urine Cocaine Screen Not Detected U Marijuana (THC) Screen Not Detected 02/29/24 02/29/24 03/01/24 18:42 22:22 07:04 MCV MCH MCHC RDW Plt Count MPV Absolute Nucleated RBC Nucleated RBC % (auto) Anion Gap Estim Creat Clear Calc Estimated GFR POC Glucose 134 H 130 H 158 H Random Glucose Lactic Acid F/U @ 2Hr Calcium Total Bilirubin Direct Bilirubin AST ALT Alkaline Phosphatase Total Protein Albumin Urine Color Urine Appearance Urine pH Ur Specific [place] Urine Protein Urine Glucose (UA) Urine Ketones Urine Blood Urine Nitrite Ur Leukocyte Esterase Urine RBC Urine WBC Ur Squamous Epith Cells Urine Bacteria Hyaline Casts Urine Opiates Screen Ur Buprenorphine Scrn Ur Oxycodone Screen Urine Methadone Screen Urine Fentanyl Screen Ur Barbiturates Screen Ur Phencyclidine Scrn Ur Amphetamines Screen U Benzodiazepines Scrn Urine Cocaine Screen U Marijuana (THC) Screen 03/01/24 03/01/24 07:13 10:53 MCV 99.5 H MCH 34.3 H MCHC 34.4 RDW 15.9 Plt Count 144 L MPV 11.2 Absolute Nucleated RBC 0.000 Nucleated RBC % (auto) 0.0 Anion Gap 12 Estim Creat Clear Calc 109.1 Estimated GFR > 60 POC Glucose 167 H Random Glucose 148 H Lactic Acid F/U @ 2Hr Calcium 8.2 L D Total Bilirubin 5.8 H Direct Bilirubin 4.3 H AST 71 H ALT 37 Alkaline Phosphatase 258 H Total Protein 7.8 Albumin 2.9 L Urine Color Urine Appearance Urine pH Ur Specific [place] Urine Protein Urine Glucose (UA) Urine Ketones Urine Blood Urine Nitrite Ur Leukocyte Esterase Urine RBC Urine WBC Ur Squamous Epith Cells Urine Bacteria Hyaline Casts Urine Opiates Screen Ur Buprenorphine Scrn Ur Oxycodone Screen Urine Methadone Screen Urine Fentanyl Screen Ur Barbiturates Screen Ur Phencyclidine Scrn Ur Amphetamines Screen U Benzodiazepines Scrn Urine Cocaine Screen U Marijuana (THC) Screen Microbiology Microbiology Results: Microbiology 02/29/24 11:39 Blood Culture - Preliminary Blood - Venous Prelim: GPC Gram Stain only 02/29/24 11:34 Blood Culture - Preliminary Blood - Venous Prelim: GPC Gram Stain only Assessment and Plan (1) Acute hepatic encephalopathy: Status: Acute (2) Bacteremia: Status: Acute Plan This is a 59-year-old homeless male with history of opiate dependence on Suboxone, HIV on Biktarvy, chronic hepatitis-C, depression, PTSD, liver cirrhosis, COPD who was brought to the emergency department for evaluation of encephalopathy found to have elevated ammonia levels Acute Toxic metabolic encephalopathy Multifactorial due to hepatic encephalopathy in the setting of multifactorial liver cirrhosis and bacteremia Received a dose of lactulose in the emergency department with some improvement - Will continue scheduled lactulose with goal of 2-3 bowel movements daily will treat with IV thiamine due to history of etoh abuse, can likely transition to p.o. in a.m. Afebrile, no leukocytosis, UA negative, no evidence of infection. brain CT negative for acute findings and no focal neurological deficits Gram-positive bacteremia 2/2 blood cultures growing Gram-positive cocci Echocardiogram pending to for endocarditis Started IV vancomycin Surveillance cultures ordered ID consult pending Acute respiratory failure with hypoxia History of underlying COPD, not requiring supplemental. No wheezing on exam Chest x-ray negative for pneumonia, showing atelectasis Incentive spirometry P.r.n. breathing treatments Abdominal pain ? due to constipation CT scan of abdomen/pelvis shows no other pathology which could explain lower abdominal pain Minimal ascites, per IR not enough for paracentesis Bowel regimen for constipation GI consult pending Abdominal ultrasound pending Elevated LFTs Transaminases trending down, bilirubin trending up CT scan without evidence of biliary ductal dilation, gallbladder unremarkable Abdominal ultrasound pending Acute lactic acidosis Likely secondary to decreased clearance due to underlying liver disease and not due to sepsis History of alcohol abuse No evidence of alcohol withdrawal at this time alcohol level negative in the emergency department CIWA remains low, no signs of etoh withdrawal at this time; if patient becomes symptomatic we will treat with phenobarbital protocol addiction medicine evaluation pending History of opiate abuse Denies the use of intravenous drugs reports using pills only Continue baseline Suboxone Addiction medicine consult pending as above Tobacco dependence Smoking cessation advised NRT Thrombocytopenia Appears chronic. Likely related to underlying liver disease Liver cirrhosis Has history of chronic hepatitis-C as well as alcohol abuse LFTs chronically elevated Normocytic anemia Likely due to chronic alcohol use Above transfusion threshold Mood Resume baseline medications bupropion, buspirone, seroquel HIV continue biktarvy outpatient follow up DVT prophylaxis Lovenox Healthcare proxy - patient reports he would want his brother Garfield to be his healthcare proxy Disposition-patient homeless, TBD based on blood culture results Patient requires ongoing inpatient stay for management of abdominal pain, bacteremia requiring IV antibiotics Quality Stroke Does the patient have a stroke diagnosis?: No VTE Prior VTE?: No VTE Risk Level:: Medical - moderate - high VTE Device Contraindication: N/A - Device Ordered VTE Drug Contraindication: Treatment Not Indicated
[2024-03-01] MEDS: polyethylene glycoL 3350 17 GM POWD.PACK PO (15:35)
[2024-03-01] MEDS: Gabapentin 300 MG CAPSULE PO ×2 (15:36→21:48)
[2024-03-01 16:04] LABS: Glucose, Whole Blood 167 mg/dL (60-115)
--- NOTE | 2024-03-01 16:25 | P.CNGI_ITS ---
History of Present Illness Data of Consult Service Date: 03/01/24 Requesting physician: Donya Melendez Primary Care Provider: Unknown Physician HPI Reason for consult: Elevated LFTs, HE This is a 59-year-old gentleman with past medical history of HCV, HIV on Biktarvy, alcohol use disorder that has led to cirrhosis, who presented to the hospital for abdominal pain and altered mental status. Gastroenterology has been consulted for question of elevated LFTs and hepatic encephalopathy. History was reviewed with the patient, who states that around 2 days ago, he was visiting his younger sister and had too much alcohol?. Reports almost a quart of vodka in that 1 day alone. Since then, has been feeling very lousy, with increased fatigue and weakness. Does not quite remember the events leading up to his arrival to the emergency room. Does complain of left-sided abdominal pain, with constipation. No fevers, chills. On arrival, noted to have stable vitals with labs showing leukocytosis, mild increase in creatinine, elevated LFTs with AST greater than ALT and high bili. CT abdomen and pelvis with IV contrast shows cirrhotic appearing liver but otherwise no abnormality in the gastrointestinal lumen. Blood cultures with GPC bacteremia. Review of Systems 2 Review of Systems: Yes all other systems are reviewed and are negative PMF[facility] Past Medical History Medical History Cocaine abuse Opioid abuse MDD (major depressive disorder), recurrent severe, without psychosis Coccygeal pain Acute foot pain IBS (irritable bowel syndrome) COPD (chronic obstructive pulmonary disease) Prediabetes Colitis Hypertension PTSD (post-traumatic stress disorder) Osteoarthritis of both hips Opioid dependence Hepatitis C HIV infection Family History Family History Other No family history of coronary artery disease Surgical History Surgical History Status post right shoulder hemiarthroplasty History of right hip replacement Social History Social History Household Members: Friend(s) Housing: Homeless Do you presently have visiting nurse or other home services: No Unable to assess alcohol history related to: Unknown Alcohol intake: current Alcohol intake frequency: 0-2 drinks per day Alcohol type: beer Patient Tobacco Use Status: Current everyday Tobacco user Tobacco use type: Cigarette Cigarette Packs Per Day: 1 Cigarettes Per Day: 20.0 Years Smoked: 35 Substance Use Type: Marijuana Advance Directives Date on File: 09/07/22 service: No Current occupational status: disabled Sexual orientation: Straight/Heterosexual Meds Allergies Allergy/AdvReac Type Severity Reaction Status Date / Time ketorolac [From Toradol] AdvReac Itching Verified 02/29/24 09:47 Active Medications: Current Medications Acetaminophen (Acetaminophen 325 Mg Tablet) 650 mg PO Q6H PRN PRN Reason: Pain, Mild (Pain Scale 1-3) Albuterol/Ipratropium (Albuterol/Iprat 2.5/0.5mg 3 Ml Ampul.Neb) 3 ml INHALE Q6H PRN PRN Reason: Shortness of breaths Bictegravir/Emtricitabine/Tenofovir (Bictegrav/Emtricit/Tenofov Ala Tablet) 1 tab PO DAILY [facility] Last Admin: 03/01/24 08:51 Dose: 1 tab Bisacodyl (Bisacodyl 10 Mg Supp.Rect) 10 mg [place] DAILY PRN PRN Reason: Constipation Buprenorphine/Naloxone (Buprenorphine/Naloxone 8/2 Mg Film) 1 film SUBLINGUAL TID [facility] Last Admin: 03/01/24 15:35 Dose: 1 film Bupropion HCl (Bupropion Hcl Xl 150 Mg Tab.Er.24h) 150 mg PO BID@0900,1500 [facility] Last Admin: 03/01/24 15:36 Dose: 150 mg Buspirone HCl (Buspirone Hcl 5 Mg Tablet) 15 mg PO BID [facility] Last Admin: 03/01/24 10:04 Dose: Not Given Buspirone HCl (Buspirone Hcl 10 Mg Tablet) 10 mg PO BID [facility] Last Admin: 03/01/24 10:05 Dose: Not Given Clopidogrel Bisulfate (Clopidogrel Bisulfate 75 Mg Tablet) 75 mg PO DAILY [facility] Last Admin: 03/01/24 08:51 Dose: 75 mg Docusate Sodium (Docusate Sodium 100 Mg Capsule) 100 mg PO BID [facility] Last Admin: 03/01/24 08:50 Dose: 100 mg Famotidine (Famotidine 20 Mg Tablet) 20 mg PO DAILY [facility] Last Admin: 03/01/24 08:51 Dose: 20 mg Fluticasone/Vilanterol (Fluticasone/Vilanterol 100/25 Blst.W.Dev) 1 puff INHALE RDAILY [facility] Last Admin: 03/01/24 11:24 Dose: 1 puff Folic Acid (Folic Acid 1 Mg Tablet) 1 mg PO DAILY [facility] Last Admin: 03/01/24 08:51 Dose: 1 mg Gabapentin (Gabapentin 300 Mg Capsule) 300 mg PO TID [facility] Last Admin: 03/01/24 15:36 Dose: 300 mg Glucose (Glucose Gel 15 Gm Gel..Gram.) 15 gm PO Q15M PRN; Protocol PRN Reason: per Hypoglycemia Standing Ord. Thiamine HCl 200 mg/ Sodium (Chloride) 102 mls @ 204 mls/hr IV Q8H [facility] Last Infusion: 03/01/24 11:03 Dose: Infused Dextrose (D10) 250 mls @ 750 mls/hr IV Q15M PRN; Protocol PRN Reason: per Hypoglycemia Standing Ord. Vancomycin HCl 1,250 mg/ (Sodium Chloride) 250 mls @ 166.667 mls/hr IV Q12H [facility] Last Admin: 03/01/24 15:35 Dose: 166.67 mls/hr Insulin Human Lispro (Insulin Lispro 100 Unit/Ml 3 Ml Vial) 0 unit SUBCUT QIDACHS [facility]; Protocol Last Admin: 03/01/24 12:40 Dose: 2 unit Lactulose (Lactulose 20 Gm/30 Ml Solution) 20 gm PO TID [facility] Last Admin: 03/01/24 15:36 Dose: 20 gm Nicotine (Nicotine 14 Mg Patch.Td24) 14 mg TRANSDERMA DAILY [facility] Last Admin: 03/01/24 08:50 Dose: 14 mg Ondansetron HCl (Ondansetron Hcl 4 Mg/2 Ml Vial) 4 mg IVPUSH Q6H PRN PRN Reason: Nausea and Vomiting Last Admin: 03/01/24 06:04 Dose: 4 mg Pharmacy Consult (Consult Rx Vancomycin Dosing) 1 each MISCELLANE DAILY PRN PRN Reason: Consult order Quetiapine Fumarate (Quetiapine Fumarate 200 Mg Tablet) 200 mg PO BEDTIME [facility] Quetiapine Fumarate (Quetiapine Fumarate 50 Mg Tablet) 50 mg PO BEDTIME [facility] Rifaximin (Rifaximin 550 Mg Tablet) 550 mg PO BID [facility] Sodium Chloride (0.9 % Sodium Chloride Flush 3 Ml Syringe) 3 ml IVFLUSH QSHIFT [facility] Last Admin: 03/01/24 15:36 Dose: 3 ml Home Medications ?Medication ?Instructions ?Recorded ?Confirmed ?Last Taken ?Type buprenorphine 8 mg-naloxone 2 mg 1 film sublingual TID 05/25/23 02/29/24 05/22/23 History sublingual film (Suboxone) buspirone 10 mg tablet 10 mg PO BID 02/29/24 02/29/24 Unknown History buspirone 30 mg tablet 15 mg PO BID 02/29/24 02/29/24 Unknown History clopidogrel 75 mg tablet 75 mg PO DAILY 02/29/24 02/29/24 Unknown History empagliflozin 10 mg tablet 10 mg PO DAILY 02/29/24 02/29/24 Unknown History (Jardiance) folic acid 1 mg tablet 1 mg PO DAILY 02/29/24 02/29/24 Unknown History lactulose 10 gram/15 mL oral PO 02/29/24 Unknown History solution (Enulose) melatonin 3 mg tablet 3 mg PO BEDTIME 02/29/24 02/29/24 Unknown History pantoprazole 40 mg tablet,delayed 40 mg PO DAILY@0630 02/29/24 02/29/24 Unknown History release quetiapine 200 mg tablet 200 mg PO BEDTIME 02/29/24 02/29/24 Unknown History quetiapine 50 mg tablet 50 mg PO BEDTIME 02/29/24 02/29/24 Unknown History Physical Exam 2 Vital Signs: Vital Signs: Last Vital Signs Temp 97.9 F 03/01/24 11:09 Pulse 75 03/01/24 11:24 Resp 16 03/01/24 11:24 BP 126/69 03/01/24 11:09 Pulse Ox 92 03/01/24 11:09 O2 Del Method Nasal Cannula 03/01/24 11:09 O2 Flow Rate 4 03/01/24 11:09 BMI result Body Mass Index 26.6 Appears older than stated age, disheveled Icteric Abdomen is soft, tender in left lower quadrant, nondistended No overt respiratory distress Lethargic but able to provide history, oriented x3, asterixis ++ Results Labs 03/01/24 07:13 03/01/24 07:13 Labs: Short CBC 03/01/24 Range/Units 07:13 WBC 20.0 H (4.8-10.8) X10*3/uL Hgb 13.5 L (14.0-18.0) g/dl Hct 39.2 L (42.0-52.0) % Plt Count 144 L (160-400) X10*3/uL BMP 03/01/24 07:13 Sodium 137 Potassium 4.3 Chloride 107 Carbon Dioxide 22 BUN 15 Creatinine 0.81 Calcium 8.2 L D Liver Function 02/29/24 03/01/24 Range/Units 17:19 07:13 Total Bilirubin 4.2 H 5.8 H (0.0-1.0) mg/dL Direct Bilirubin 3.0 H 4.3 H (0.0-0.5) mg/dL AST 97 H 71 H (5-37) U/L ALT 44 H 37 (0-40) U/L Alkaline Phosphatase 325 H 258 H (39-117) U/L Albumin 3.3 L 2.9 L (3.5-5.0) g/dL Microbiology Microbiology Results: Microbiology 02/29/24 11:39 Blood - Venous Blood Culture - Preliminary Prelim: GPC Gram Stain only 02/29/24 11:34 Blood - Venous Blood Culture - Preliminary Prelim: GPC Gram Stain only Assessment and Plan (1) Bacteremia: Status: Acute (2) Acute hepatic encephalopathy: Status: Acute (3) HIV infection: Status: Acute (4) Decompensation of cirrhosis of liver: Status: Acute (5) Alcoholic hepatitis: Status: Acute Plan Alc hep -- MDF 18 Decomp cirrhosis 2/2 etOH and chronic HCV -- MELD-Na 17 -- HE Elevated LFTs likely in the setting of ongoing acute on chronic liver failure due to alcoholic hepatitis. However, has low Maddrey's. Corticosteroids contraindicated in any case with ongoing infection bacteremia. Has ongoing HE despite lactulose and would recommend addition of Rifaximin. Anticipate improvement with resolution of infection. Plan: - management of sepsis as per primary team - speciation on blood cultures awaited - no indication for corticosteroids for alc hep at this time - continue lactulose 30 mL t.i.d. for goal 2-3 bowel movements per day - start rifaximin 550 b.i.d. - Consider checking CD4 count and if low, eval for opportunistic infections - echo pending - strong counseling for polysubstance use done, will also benefit from comprehensive care referral as outpatient Thank you for allowing me to participate in his care. Please do not hesitate to reach out for any questions or concerns. Procedures Date of Service Date of Service: 03/01/24
--- NOTE | 2024-03-01 16:39 | W.PM.IDCN ---
History of Present Illness Data of Consult Service Date: 03/01/24 Requesting physician: Donya Melendez Primary Care Provider: Unknown Physician HPI Reason for consult: bacteremia in setting of HIV He presents with confusion and altered mental status. His tox screen shows buprenorphine only. He has fever and chills. He takes Biktarvy and has CD4 count of 357 and viral load 129 in September 2023. He is seen at [facility] for HIV. Review of Systems Review of Systems: Yes all other systems are reviewed and are negative [facility] Past Medical History Medical History Cocaine abuse Opioid abuse MDD (major depressive disorder), recurrent severe, without psychosis Coccygeal pain Acute foot pain IBS (irritable bowel syndrome) COPD (chronic obstructive pulmonary disease) Prediabetes Colitis Hypertension PTSD (post-traumatic stress disorder) Osteoarthritis of both hips Opioid dependence Hepatitis C HIV infection Family History Family History Other No family history of coronary artery disease Family history: reviewed and not pertinent Surgical History Surgical History Status post right shoulder hemiarthroplasty History of right hip replacement Social History Social History Household Members: Friend(s) Housing: Homeless Do you presently have visiting nurse or other home services: No Unable to assess alcohol history related to: Unknown Alcohol intake: current Alcohol intake frequency: 0-2 drinks per day Alcohol type: beer Patient Tobacco Use Status: Current everyday Tobacco user Tobacco use type: Cigarette Cigarette Packs Per Day: 1 Cigarettes Per Day: 20.0 Years Smoked: 35 Substance Use Type: Marijuana Advance Directives Date on File: 09/07/22 service: No Current occupational status: disabled Sexual orientation: Straight/Heterosexual Meds Allergies Allergy/AdvReac Type Severity Reaction Status Date / Time ketorolac [From Toradol] AdvReac Itching Verified 02/29/24 09:47 Active Medications: Current Medications Acetaminophen (Acetaminophen 325 Mg Tablet) 650 mg PO Q6H PRN PRN Reason: Pain, Mild (Pain Scale 1-3) Albuterol/Ipratropium (Albuterol/Iprat 2.5/0.5mg 3 Ml Ampul.Neb) 3 ml INHALE Q6H PRN PRN Reason: Shortness of breaths Bictegravir/Emtricitabine/Tenofovir (Bictegrav/Emtricit/Tenofov Ala Tablet) 1 tab PO DAILY [facility] Last Admin: 03/01/24 08:51 Dose: 1 tab Bisacodyl (Bisacodyl 10 Mg Supp.Rect) 10 mg [place] DAILY PRN PRN Reason: Constipation Buprenorphine/Naloxone (Buprenorphine/Naloxone 8/2 Mg Film) 1 film SUBLINGUAL TID [facility] Last Admin: 03/01/24 15:35 Dose: 1 film Bupropion HCl (Bupropion Hcl Xl 150 Mg Tab.Er.24h) 150 mg PO BID@0900,1500 [facility] Last Admin: 03/01/24 15:36 Dose: 150 mg Buspirone HCl (Buspirone Hcl 5 Mg Tablet) 15 mg PO BID [facility] Last Admin: 03/01/24 10:04 Dose: Not Given Buspirone HCl (Buspirone Hcl 10 Mg Tablet) 10 mg PO BID [facility] Last Admin: 03/01/24 10:05 Dose: Not Given Clopidogrel Bisulfate (Clopidogrel Bisulfate 75 Mg Tablet) 75 mg PO DAILY [facility] Last Admin: 03/01/24 08:51 Dose: 75 mg Docusate Sodium (Docusate Sodium 100 Mg Capsule) 100 mg PO BID [facility] Last Admin: 03/01/24 08:50 Dose: 100 mg Famotidine (Famotidine 20 Mg Tablet) 20 mg PO DAILY [facility] Last Admin: 03/01/24 08:51 Dose: 20 mg Fluticasone/Vilanterol (Fluticasone/Vilanterol 100/25 Blst.W.Dev) 1 puff INHALE RDAILY [facility] Last Admin: 03/01/24 11:24 Dose: 1 puff Folic Acid (Folic Acid 1 Mg Tablet) 1 mg PO DAILY [facility] Last Admin: 03/01/24 08:51 Dose: 1 mg Gabapentin (Gabapentin 300 Mg Capsule) 300 mg PO TID [facility] Last Admin: 03/01/24 15:36 Dose: 300 mg Glucose (Glucose Gel 15 Gm Gel..Gram.) 15 gm PO Q15M PRN; Protocol PRN Reason: per Hypoglycemia Standing Ord. Thiamine HCl 200 mg/ Sodium (Chloride) 102 mls @ 204 mls/hr IV Q8H [facility] Last Infusion: 03/01/24 11:03 Dose: Infused Dextrose (D10) 250 mls @ 750 mls/hr IV Q15M PRN; Protocol PRN Reason: per Hypoglycemia Standing Ord. Vancomycin HCl 1,250 mg/ (Sodium Chloride) 250 mls @ 166.667 mls/hr IV Q12H [facility] Last Admin: 03/01/24 15:35 Dose: 166.67 mls/hr Insulin Human Lispro (Insulin Lispro 100 Unit/Ml 3 Ml Vial) 0 unit SUBCUT QIDACHS [facility]; Protocol Last Admin: 03/01/24 12:40 Dose: 2 unit Lactulose (Lactulose 20 Gm/30 Ml Solution) 20 gm PO TID [facility] Last Admin: 03/01/24 15:36 Dose: 20 gm Nicotine (Nicotine 14 Mg Patch.Td24) 14 mg TRANSDERMA DAILY [facility] Last Admin: 03/01/24 08:50 Dose: 14 mg Ondansetron HCl (Ondansetron Hcl 4 Mg/2 Ml Vial) 4 mg IVPUSH Q6H PRN PRN Reason: Nausea and Vomiting Last Admin: 03/01/24 06:04 Dose: 4 mg Pharmacy Consult (Consult Rx Vancomycin Dosing) 1 each MISCELLANE DAILY PRN PRN Reason: Consult order Quetiapine Fumarate (Quetiapine Fumarate 200 Mg Tablet) 200 mg PO BEDTIME [facility] Quetiapine Fumarate (Quetiapine Fumarate 50 Mg Tablet) 50 mg PO BEDTIME [facility] Rifaximin (Rifaximin 550 Mg Tablet) 550 mg PO BID [facility] Sodium Chloride (0.9 % Sodium Chloride Flush 3 Ml Syringe) 3 ml IVFLUSH QSHIFT [facility] Last Admin: 03/01/24 15:36 Dose: 3 ml Home Medications ?Medication ?Instructions ?Recorded ?Confirmed ?Last Taken ?Type buprenorphine 8 mg-naloxone 2 mg 1 film sublingual TID 05/25/23 02/29/24 05/22/23 History sublingual film (Suboxone) buspirone 10 mg tablet 10 mg PO BID 02/29/24 02/29/24 Unknown History buspirone 30 mg tablet 15 mg PO BID 02/29/24 02/29/24 Unknown History clopidogrel 75 mg tablet 75 mg PO DAILY 02/29/24 02/29/24 Unknown History empagliflozin 10 mg tablet 10 mg PO DAILY 02/29/24 02/29/24 Unknown History (Jardiance) folic acid 1 mg tablet 1 mg PO DAILY 02/29/24 02/29/24 Unknown History lactulose 10 gram/15 mL oral PO 02/29/24 Unknown History solution (Enulose) melatonin 3 mg tablet 3 mg PO BEDTIME 02/29/24 02/29/24 Unknown History pantoprazole 40 mg tablet,delayed 40 mg PO DAILY@0630 02/29/24 02/29/24 Unknown History release quetiapine 200 mg tablet 200 mg PO BEDTIME 02/29/24 02/29/24 Unknown History quetiapine 50 mg tablet 50 mg PO BEDTIME 02/29/24 02/29/24 Unknown History Physical Exam Vital Signs: Vital Signs: Last Vital Signs Temp 97.4 F 03/01/24 16:00 Pulse 87 03/01/24 16:00 Resp 18 03/01/24 16:00 BP 161/79 H 03/01/24 16:00 Pulse Ox 92 03/01/24 16:00 O2 Del Method Nasal Cannula 03/01/24 16:00 O2 Flow Rate 4 03/01/24 16:00 BMI result Body Mass Index 26.6 Const: General: cooperative HEENT: Head: Yes normal to inspection Face and sinus: Yes normal facial exam Mouth: Normal oral and palatal mucosa present Teeth and gingiva: dentition normal Eyes: General: appearance normal, both eyes and all related structures Pupils: Equal, round and reactive pupils present Resp: Effort & Inspection: normal respiratory effort Cardio: Rate: regular rate Rhythm: regular rhythm GI: Palpation (GI): Soft to palpation and nontender : General: Yes no CVA tenderness Back/Spine/Pelvis: Back: no CVA tenderness Skin: Other: scabbed areas lower legs General skin exam: no rashes or lesions noted Neuro: General: moves all extremities Cranial nerves: Yes Equal, round and reactive pupils present Extrem: General: Yes normal to inspection Psych: Appearance: grossly normal Results Labs 03/01/24 07:13 03/01/24 07:13 Labs: Short CBC 03/01/24 Range/Units 07:13 WBC 20.0 H (4.8-10.8) X10*3/uL Hgb 13.5 L (14.0-18.0) g/dl Hct 39.2 L (42.0-52.0) % Plt Count 144 L (160-400) X10*3/uL BMP 03/01/24 07:13 Sodium 137 Potassium 4.3 Chloride 107 Carbon Dioxide 22 BUN 15 Creatinine 0.81 Calcium 8.2 L D Liver Function 02/29/24 03/01/24 Range/Units 17:19 07:13 Total Bilirubin 4.2 H 5.8 H (0.0-1.0) mg/dL Direct Bilirubin 3.0 H 4.3 H (0.0-0.5) mg/dL AST 97 H 71 H (5-37) U/L ALT 44 H 37 (0-40) U/L Alkaline Phosphatase 325 H 258 H (39-117) U/L Albumin 3.3 L 2.9 L (3.5-5.0) g/dL Microbiology Microbiology Results: Microbiology 02/29/24 11:39 Blood - Venous Blood Culture - Preliminary Prelim: GPC Gram Stain only 02/29/24 11:34 Blood - Venous Blood Culture - Preliminary Prelim: GPC Gram Stain only Assessment and Plan (1) Alcoholic hepatitis: Status: Acute (2) Decompensation of cirrhosis of liver: Status: Acute (3) Hypoxia: Status: Acute (4) Bacteremia: Status: Acute (5) HIV infection: Status: Acute Plan He has bacteremia Echo is pending Probably skin source staph or strep Agree Vancomycin Continue Biktarvy Await echo. Probably IV 4 weeks.
[2024-03-01] MEDS: Morphine Sulfate 2 MG/ML CARTRIDGE IVPUSH (17:19)
[2024-03-01 20:47] LABS: Glucose, Whole Blood 126 mg/dL (60-115)
[2024-03-01 21:37] LABS: Vancomycin Random 20.2 mcg/mL (15-20)
[2024-03-01] MEDS: QUEtiapine Fumarate 50 MG TABLET PO (21:47)
[2024-03-01] MEDS: QUEtiapine Fumarate 200 MG TABLET PO (21:47)
[2024-03-01] MEDS: rifAXIMin 550 MG TABLET PO (21:47)
[2024-03-01] MEDS: busPIRone HCl 10 MG TABLET PO (21:48)
[2024-03-01] MEDS: busPIRone HCl 5 MG TABLET 15 MG PO (21:49)
--- NOTE | 2024-03-01 21:56 | HE.PHANOTE ---
Re: Jalen Good renal function. Trough returned at 20.2. Held evening dose. Next trough scheduled in 12 hours on 03/02 at 0900. If in range, change dose to 750mg q8h, predicted auc 497, predicted trough 16.9.
[2024-03-02] VITALS (7 sets, daily range): BP systolic 130–161; BP diastolic 80–96; PULSE 89–109; RESP 18–20; TEMP 36.2–37; O2SAT 88–95
[2024-03-02] MEDS: Thiamine HCL 200 MG in 0.9 % Sodium Chloride 100 ML 204 MG IV ×3 (02:16→16:15)
[2024-03-02 06:46] LABS: Basophils Absolute Auto 0.1 X10*3/uL (0.0-0.2); Basophils Percent Auto 0.4 % (0-2); Eosinophils Absolute Auto 0.1 X10*3/uL (0.0-0.4); Eosinophils Percent Auto 0.4 % (0-4); Hematocrit 39.2 % (42.0-52.0); Hemoglobin 13.8 g/dl (14.0-18.0); Imm Gran Abs Auto 0.12 X10*3/uL (0.00-0.03); Imm Gran Pct Auto 0.8 % (0.0-0.4); Lymphocytes Absolute Auto 1.9 X10*3/uL (1.2-4.9); Lymphocytes Percent Auto 12.3 % (20-40); MANUAL DIFF FLAG SCAN; Mean Corpuscular HGB Conc 35.2 g/dl (31.0-36.0); Mean Corpuscular Hemoglobin 34.5 pg (27.0-33.0); Monocytes Absolute Auto 1.9 X10*3/uL (0.1-1.2); Monocytes Percent Auto 12.1 % (2-11); Neutrophils Absolute Auto 11.5 x10*3/uL (2.0-8.3); PLT CLUMP 1; Red Cell Distribution Width 15.8 % (11.0-16.0); SCAN SMEAR FLAG 1
[2024-03-02 06:47] LABS: INTERNATIONAL NORM RATIO 1.3 (0.9-1.1); Prothrombin Time 15.9 SEC (11.1-13.3); White Blood Count 15.5 X10*3/uL (4.8-10.8)
[2024-03-02 06:50] LABS: Alanine Aminotransferase 30 U/L (0-40); Albumin Level 2.7 g/dL (3.5-5.0); Alkaline Phosphatase 214 U/L (39-117); Anion Gap 13 (12-20); Aspartate Amino Transferase 53 U/L (5-37); Bilirubin Direct 5.3 mg/dL (0.0-0.5); Blood Urea Nitrogen 21 mg/dL (9-16); Calcium 8.4 mg/dL (8.4-10.2); Carbon Dioxide 21 mmol/L (22-29); Chloride 104 mmol/L (96-108); Creatinine Clr Calc Pharmacy 116.2; Estimated Glomerular Filt Rate > 60; Glucose Random 132 mg/dL (60-115); Sodium 134 mmol/L (135-145); Total Protein 7.4 g/dL (6.5-8.0)
[2024-03-02 07:04] LABS: Estimated Average Glucose 128 mg/dL; Hemoglobin A1c % 6.1 % (<6.0)
[2024-03-02 07:12] LABS: Mean Platelet Volume 11.9 fL (9.4-12.4)
[2024-03-02 07:13] LABS: Platelet Count 133 X10*3/uL (160-400); SLIDE REVIEW VERIFIED
[2024-03-02] MEDS: Fluticasone/Vilanterol 100/25 BLST.W.DEV 1 PUFF INHALE (07:57)
[2024-03-02 08:11] LABS: Glucose, Whole Blood 139 mg/dL (60-115)
[2024-03-02] MEDS: Docusate Sodium 100 MG CAPSULE PO ×2 (08:57→22:17)
[2024-03-02] MEDS: busPIRone HCl 5 MG TABLET 15 MG PO ×2 (08:57→22:16)
[2024-03-02] MEDS: Buprenorphine/Naloxone 8/2 mg FILM 1 FILM SUBLINGUAL ×3 (08:58→22:11)
[2024-03-02] MEDS: Famotidine 20 MG TABLET PO (08:58)
[2024-03-02] MEDS: buPROPion HCl XL 150 MG TAB.ER.24H PO ×2 (08:58→16:15)
[2024-03-02] MEDS: Folic Acid 1 MG TABLET PO (08:58)
[2024-03-02] MEDS: Nicotine 14 MG PATCH.TD24 TRANSDERMA (08:58)
[2024-03-02] MEDS: Clopidogrel Bisulfate 75 MG TABLET PO (08:58)
[2024-03-02] MEDS: Bictegrav/Emtricit/Tenofov Ala TABLET 1 TAB PO (08:58)
[2024-03-02] MEDS: rifAXIMin 550 MG TABLET PO ×2 (08:58→22:17)
[2024-03-02] MEDS: Gabapentin 300 MG CAPSULE PO ×3 (08:58→22:17)
[2024-03-02] MEDS: busPIRone HCl 10 MG TABLET PO ×2 (08:58→22:17)
[2024-03-02] MEDS: Lactulose 20 GM/30 ML SOLUTION PO (08:59)
[2024-03-02] MEDS: 0.9 % Sodium Chloride Flush 3 ML SYRINGE IVFLUSH ×3 (08:59→22:19)
[2024-03-02 09:08] LABS: Vancomycin Random 8.5 mcg/mL (15-20)
--- NOTE | 2024-03-02 09:08 | PC.NURSE ---
pt began to desat to 85% at approx 0310. He was repositioned and encouraged to take deep breaths with minimal rise in O2 sat. Pt switched to oxymask for some mouth breathing and was titrated up to 8L which brought him up and sustained him 90-92%. MD Serrano paged and no change in plan except to keep on current settings. Pt states comfort after change.
--- NOTE | 2024-03-02 09:39 | P.PNIM_ITS ---
Subjective Subjective Date of Service: 03/02/24 Interval History: seen and examined feels tired only 1 bm abd pain slightly better Review of Systems Negative except HPI/interval history. Physical Exam 2 Vital Signs: Vital Signs: Last Vital Signs Temp 97.8 F 03/02/24 08:00 Pulse 106 H 03/02/24 08:01 Resp 20 03/02/24 08:01 BP 130/87 03/02/24 08:00 Pulse Ox 93 03/02/24 08:00 O2 Del Method Room Air, Nasal C annula, Oxymask 03/02/24 08:00 O2 Flow Rate 8 03/02/24 08:00 BMI result Body Mass Index 26.6 Objective Data Active Medications Acetaminophen (Acetaminophen 325 Mg Tablet) 650 mg PO Q6H PRN PRN Reason: Pain, Mild (Pain Scale 1-3) Albuterol/Ipratropium (Albuterol/Iprat 2.5/0.5mg 3 Ml Ampul.Neb) 3 ml INHALE Q6H PRN PRN Reason: Shortness of breaths Bictegravir/Emtricitabine/Tenofovir (Bictegrav/Emtricit/Tenofov Ala Tablet) 1 tab PO DAILY [facility] Last Admin: 03/02/24 08:58 Dose: 1 tab Documented By: ANIYA Bisacodyl (Bisacodyl 10 Mg Supp.Rect) 10 mg [place] DAILY PRN PRN Reason: Constipation Buprenorphine/Naloxone (Buprenorphine/Naloxone 8/2 Mg Film) 1 film SUBLINGUAL TID [facility] Last Admin: 03/02/24 08:58 Dose: 1 film Documented By: ANIYA Bupropion HCl (Bupropion Hcl Xl 150 Mg Tab.Er.24h) 150 mg PO BID@0900,1500 [facility] Last Admin: 03/02/24 08:58 Dose: 150 mg Documented By: ANIYA Buspirone HCl (Buspirone Hcl 5 Mg Tablet) 15 mg PO BID [facility] Last Admin: 03/02/24 08:57 Dose: 15 mg Documented By: ANIYA Buspirone HCl (Buspirone Hcl 10 Mg Tablet) 10 mg PO BID [facility] Last Admin: 03/02/24 08:58 Dose: 10 mg Documented By: ANIYA Clopidogrel Bisulfate (Clopidogrel Bisulfate 75 Mg Tablet) 75 mg PO DAILY [facility] Last Admin: 03/02/24 08:58 Dose: 75 mg Documented By: ANIYA Docusate Sodium (Docusate Sodium 100 Mg Capsule) 100 mg PO BID [facility] Last Admin: 03/02/24 08:57 Dose: 100 mg Documented By: ANIYA Famotidine (Famotidine 20 Mg Tablet) 20 mg PO DAILY [facility] Last Admin: 03/02/24 08:58 Dose: 20 mg Documented By: ANIYA Fluticasone/Vilanterol (Fluticasone/Vilanterol 100/25 Blst.W.Dev) 1 puff INHALE RDAILY [facility] Last Admin: 03/02/24 07:57 Dose: 1 puff Documented By: CYNTHIA Folic Acid (Folic Acid 1 Mg Tablet) 1 mg PO DAILY [facility] Last Admin: 03/02/24 08:58 Dose: 1 mg Documented By: ANIYA Gabapentin (Gabapentin 300 Mg Capsule) 300 mg PO TID [facility] Last Admin: 03/02/24 08:58 Dose: 300 mg Documented By: ANIYA Glucose (Glucose Gel 15 Gm Gel..Gram.) 15 gm PO Q15M PRN; Protocol PRN Reason: per Hypoglycemia Standing Ord. Thiamine HCl 200 mg/ Sodium (Chloride) 102 mls @ 204 mls/hr IV Q8H [facility] Last Admin: 03/02/24 08:57 Dose: 204 mls/hr Documented By: ANIYA Dextrose (D10) 250 mls @ 750 mls/hr IV Q15M PRN; Protocol PRN Reason: per Hypoglycemia Standing Ord. Insulin Human Lispro (Insulin Lispro 100 Unit/Ml 3 Ml Vial) 0 unit SUBCUT QIDACHS [facility]; Protocol Last Admin: 03/02/24 08:16 Dose: Not Given Documented By: ANIYA Non-Admin Reason: No Insulin Coverage Lactulose (Lactulose 20 Gm/30 Ml Solution) 20 gm PO TID [facility] Last Admin: 03/02/24 08:59 Dose: 20 gm Documented By: ANIYA Nicotine (Nicotine 14 Mg Patch.Td24) 14 mg TRANSDERMA DAILY [facility] Last Admin: 03/02/24 08:58 Dose: 14 mg Documented By: ANIYA Ondansetron HCl (Ondansetron Hcl 4 Mg/2 Ml Vial) 4 mg IVPUSH Q6H PRN PRN Reason: Nausea and Vomiting Last Admin: 03/01/24 06:04 Dose: 4 mg Documented By: DESTIN Pharmacy Consult (Consult Rx Vancomycin Dosing) 1 each MISCELLANE DAILY PRN PRN Reason: Consult order Quetiapine Fumarate (Quetiapine Fumarate 200 Mg Tablet) 200 mg PO BEDTIME [facility] Last Admin: 03/01/24 21:47 Dose: 200 mg Documented By: PARVIN Quetiapine Fumarate (Quetiapine Fumarate 50 Mg Tablet) 50 mg PO BEDTIME [facility] Last Admin: 03/01/24 21:47 Dose: 50 mg Documented By: PARVIN Rifaximin (Rifaximin 550 Mg Tablet) 550 mg PO BID [facility] Last Admin: 03/02/24 08:58 Dose: 550 mg Documented By: ANIYA Sodium Chloride (0.9 % Sodium Chloride Flush 3 Ml Syringe) 3 ml IVFLUSH QSHIFT [facility] Last Admin: 03/02/24 08:59 Dose: 3 ml Documented By: ANIYA Labs 03/02/24 05:55 03/02/24 05:55 Labs: Laboratory Results - last 24 hr 03/01/24 03/01/24 03/01/24 10:53 15:58 20:43 MCV MCH MCHC RDW Plt Count MPV Immature Gran % (Auto) Neut % (Auto) Lymph % (Auto) Woods % (Auto) Eos % (Auto) Baso % (Auto) Lymph # (Auto) Woods # (Auto) Eos # (Auto) Baso # (Auto) Abs Immat Gran (auto) Absolute Neuts (auto) Absolute Nucleated RBC Nucleated RBC % (auto) Smear Tech's Comments PT INR Anion Gap Estim Creat Clear Calc Estimated GFR POC Glucose 167 H 167 H 126 H Random Glucose Estimat Average Glucose Hemoglobin A1c % Calcium Total Bilirubin Direct Bilirubin AST ALT Alkaline Phosphatase Total Protein Albumin Random Vancomycin 03/01/24 03/02/24 03/02/24 21:01 05:55 08:05 MCV 98.0 MCH 34.5 H MCHC 35.2 RDW 15.8 Plt Count 133 L MPV 11.9 Immature Gran % (Auto) 0.8 H Neut % (Auto) 74.0 H Lymph % (Auto) 12.3 L Woods % (Auto) 12.1 H Eos % (Auto) 0.4 Baso % (Auto) 0.4 Lymph # (Auto) 1.9 Woods # (Auto) 1.9 H Eos # (Auto) 0.1 Baso # (Auto) 0.1 Abs Immat Gran (auto) 0.12 H Absolute Neuts (auto) 11.5 H Absolute Nucleated RBC 0.000 Nucleated RBC % (auto) 0.0 Smear Tech's Comments VERIFIED PT 15.9 H INR 1.3 H Anion Gap 13 Estim Creat Clear Calc 116.2 Estimated GFR > 60 POC Glucose 139 H Random Glucose 132 H Estimat Average Glucose 128 Hemoglobin A1c % 6.1 H Calcium 8.4 Total Bilirubin 7.0 H Direct Bilirubin 5.3 H AST 53 H ALT 30 Alkaline Phosphatase 214 H Total Protein 7.4 Albumin 2.7 L Random Vancomycin 20.2 H 03/02/24 08:49 MCV MCH MCHC RDW Plt Count MPV Immature Gran % (Auto) Neut % (Auto) Lymph % (Auto) Woods % (Auto) Eos % (Auto) Baso % (Auto) Lymph # (Auto) Woods # (Auto) Eos # (Auto) Baso # (Auto) Abs Immat Gran (auto) Absolute Neuts (auto) Absolute Nucleated RBC Nucleated RBC % (auto) Smear Tech's Comments PT INR Anion Gap Estim Creat Clear Calc Estimated GFR POC Glucose Random Glucose Estimat Average Glucose Hemoglobin A1c % Calcium Total Bilirubin Direct Bilirubin AST ALT Alkaline Phosphatase Total Protein Albumin Random Vancomycin 8.5 L Microbiology Microbiology Results: Microbiology 02/29/24 11:39 Blood Culture - Preliminary Blood - Venous Staphylococcus species 02/29/24 11:34 Blood Culture - Preliminary Blood - Venous Staphylococcus species Assessment and Plan (1) Alcoholic hepatitis: Status: Acute Plan This is a 59-year-old homeless male with history of opiate dependence on Suboxone, HIV on Biktarvy, chronic hepatitis-C, depression, PTSD, liver cirrhosis, COPD who was brought to the emergency department for evaluation of encephalopathy found to have elevated ammonia levels Acute Toxic metabolic encephalopathy Multifactorial due to hepatic encephalopathy in the setting of multifactorial liver cirrhosis and bacteremia appears to be slowly improving but still with asterixis increase lactulose Staph bactermia 2/2 blood cultures growing Gram-positive cocci Echocardiogram without vegetations iv vancomyin Acute respiratory failure with hypoxia History of underlying COPD, not requiring supplemental. No wheezing on exam Chest x-ray negative for pneumonia, showing atelectasis Incentive spirometry P.r.n. breathing treatments abd pain likely due to constipation CT scan of abdomen/pelvis shows no other pathology which could explain lower abdominal pain Minimal ascites, per IR not enough for paracentesis Bowel regimen for constipation GI input appreciated abd u/s pending read Alcoholic hepatitis GI input appreciated -- no steroids fo rnow monitor lfts daily Acute lactic acidosis Likely secondary to decreased clearance due to underlying liver disease and not due to sepsis History of alcohol abuse No evidence of alcohol withdrawal at this time alcohol level negative in the emergency department CIWA remains low, no signs of etoh withdrawal at this time; if patient becomes symptomatic we will treat with phenobarbital protocol addiction medicine evaluation pending History of opiate abuse Denies the use of intravenous drugs reports using pills only Continue baseline Suboxone Addiction medicine consult pending as above Tobacco dependence Smoking cessation advised NRT Thrombocytopenia Appears chronic. Likely related to underlying liver disease Liver cirrhosis Has history of chronic hepatitis-C as well as alcohol abuse LFTs chronically elevated Normocytic anemia Likely due to chronic alcohol use Above transfusion threshold Mood Resume baseline medications bupropion, buspirone, seroquel HIV continue biktarvy outpatient follow up DVT prophylaxis Lovenox Healthcare proxy - patient reports he would want his brother Garfield to be his healthcare proxy Disposition-patient homeless, TBD based on blood culture results Patient requires ongoing inpatient stay for management of abdominal pain, bacteremia requiring IV antibiotics Quality Stroke Does the patient have a stroke diagnosis?: No VTE Prior VTE?: No VTE Risk Level:: Medical - moderate - high VTE Device Contraindication: N/A - Device Ordered VTE Drug Contraindication: Treatment Not Indicated
--- NOTE | 2024-03-02 09:40 | HE.PHANOTE ---
RE VANCO TROUGH RETURNED SUBTHERAPUETIC AT 8.5 LIKELY DUE TO HELD DOSE ON 03/01/24. NOTE LAST TROUGH WAS 20.2 BUT IT WAS ONLY FIVE HOURS AFTER DOSE. TROUGH IS EXPECTED TO BE ELEVATED (POINT OF TROUGH IS TO TEST ANGELINA OF DRUG). WILL INCREASE DOSE TO 1500 MG Q12H TO GET PT BACK TO THERAPEUTIC LEVEL WITHIN 2 DOSES. SCR STABLE. WILL REEVALUATE AND CONSIDER DOSE DECREASE AT F/U. NEXT LEVEL DUE 03/03 @0800
[2024-03-02] MEDS: oxyCODONE HCl Immed Release 5 MG TABLET PO (10:10)
[2024-03-02] MEDS: vancomycin HCL 1,500 MG in 0.9 % Sodium Chloride 500 ML 333.33 MG IV (10:12)
[2024-03-02 12:06] LABS: Glucose, Whole Blood 183 mg/dL (60-115)
[2024-03-02] MEDS: Insulin Lispro 100 UNIT/ML 3 ML VIAL SUBCUT ×3 (12:14→22:16)
[2024-03-02] MEDS: polyethylene glycoL 3350 17 GM POWD.PACK PO (13:32)
[2024-03-02] MEDS: Lactulose 20 GM/30 ML SOLUTION 30 GM PO ×2 (16:14→22:11)
[2024-03-02 16:55] LABS: Glucose, Whole Blood 161 mg/dL (60-115)
[2024-03-02 21:22] LABS: Glucose, Whole Blood 182 mg/dL (60-115)
[2024-03-02] MEDS: QUEtiapine Fumarate 200 MG TABLET PO (22:17)
[2024-03-02] MEDS: QUEtiapine Fumarate 50 MG TABLET PO (22:17)
[2024-03-02] MEDS: vancomycin HCL 1,500 MG in 0.9 % Sodium Chloride 500 ML 333.3 MG IV (22:18)
[2024-03-03] VITALS (8 sets, daily range): BP systolic 103–176; BP diastolic 69–100; PULSE 90–106; RESP 16–22; TEMP 36–37.1; O2SAT 90–100
[2024-03-03] MEDS: Thiamine HCL 200 MG in 0.9 % Sodium Chloride 100 ML 204 MG IV ×3 (02:47→17:09)
--- NOTE | 2024-03-03 06:25 | PM.EVENT ---
Event Note Date of Service: 03/03/24 Event Note: Nurse reported increasing oxygen requirements. Decreased breath sounds, crackles present, no wheezing. Respiratory rate around 20. Patient denies chest discomfort. Previous x-ray with atelectasis. Ordering chest x-ray, VBG and BNP Time Spent With Patient Time: Total time managing care of this patient today ____ minutes.
[2024-03-03 08:00] LABS: VBG Base Excess 1.2 mmol/L; VBG HCO3 20 mmol/L (22-26); VBG pCO2 21 mmHg; VBG pH 7.58 (7.32-7.43); VBG pO2 114 mmHg
[2024-03-03 08:04] LABS: Venous Blood Gas Refer to POC result
[2024-03-03 08:14] LABS: Vancomycin Random 20.5 mcg/mL (15-20)
[2024-03-03 08:22] LABS: Glucose, Whole Blood 173 mg/dL (60-115)
--- NOTE | 2024-03-03 08:26 | PC.NURSE ---
Pt noted approx 0615 to be satting in low 80's. O2 via oxymask titrated slowly up to 12L with sats leveling out at 86-87. Dr. Serrano made aware and O2 further titrated up to 15L, Dr. Serrano down to bedside, xray and vbg obtained, Pt repositioned to facilitate lung expansion. Pt denied complaint at that time and sats increased to 88-89%. At approx 0700 Pt suddenly reported dificulty breathing although sats 90%. Md Ambrose paged and made aware and down to see patient. Report given to Rj Anaya. Plan of care ongoing.
[2024-03-03] MEDS: Famotidine 20 MG TABLET PO (08:35)
[2024-03-03] MEDS: busPIRone HCl 10 MG TABLET PO ×2 (08:35→22:01)
[2024-03-03] MEDS: buPROPion HCl XL 150 MG TAB.ER.24H PO ×2 (08:36→15:31)
[2024-03-03] MEDS: Bictegrav/Emtricit/Tenofov Ala TABLET 1 TAB PO (08:36)
[2024-03-03] MEDS: busPIRone HCl 5 MG TABLET 15 MG PO ×2 (08:36→21:58)
[2024-03-03] MEDS: Clopidogrel Bisulfate 75 MG TABLET PO (08:36)
[2024-03-03] MEDS: Nicotine 14 MG PATCH.TD24 TRANSDERMA (08:37)
[2024-03-03] MEDS: rifAXIMin 550 MG TABLET PO ×2 (08:37→21:59)
[2024-03-03] MEDS: Gabapentin 300 MG CAPSULE PO ×3 (08:37→21:59)
[2024-03-03] MEDS: Folic Acid 1 MG TABLET PO (08:37)
[2024-03-03] MEDS: Fluticasone/Vilanterol 100/25 BLST.W.DEV 1 PUFF INHALE (08:38)
[2024-03-03] MEDS: Lactulose 20 GM/30 ML SOLUTION 30 GM PO ×3 (08:40→21:57)
[2024-03-03] MEDS: Buprenorphine/Naloxone 8/2 mg FILM 1 FILM SUBLINGUAL ×3 (08:40→21:58)
[2024-03-03] MEDS: Docusate Sodium 100 MG CAPSULE PO ×2 (08:41→21:59)
[2024-03-03] MEDS: Insulin Lispro 100 UNIT/ML 3 ML VIAL SUBCUT ×3 (08:46→21:59)
[2024-03-03] MEDS: 0.9 % Sodium Chloride Flush 3 ML SYRINGE IVFLUSH ×2 (08:47→17:06)
[2024-03-03 09:23] LABS: Creatinine Clr Calc Pharmacy 119.4; Estimated Glomerular Filt Rate > 60
--- NOTE | 2024-03-03 11:56 | P.PNIM_ITS ---
Subjective Subjective Date of Service: 03/03/24 Interval History: seen and examined event of ealry AM reviewed pt reports constipation and sob denies cp denies n/v Review of Systems Negative except HPI/interval history. Physical Exam 2 Vital Signs: Vital Signs: Last Vital Signs Temp 97.6 F 03/03/24 07:40 Pulse 98 03/03/24 08:41 Resp 22 H 03/03/24 08:41 BP 160/100 H 03/03/24 07:40 Pulse Ox 90 L 03/03/24 07:40 O2 Del Method Oxymask 03/03/24 07:40 O2 Flow Rate 15 03/03/24 07:40 BMI result Body Mass Index 26.6 Const: Other: General - in mild respiratory distress Cardiovascular - regular rate and rhythm, S1-S2 Lungs - RR in the low 20s, able to sspeak in full sentences; decreased sounds at b/l bases; no rales appreciated Abdomen - distended, but appears more gasous without fluid thrill; non tender Extremities - no edema bilaterally Neuro - awake and alert, no focal deficits; +asterixis; Objective Data Active Medications Acetaminophen (Acetaminophen 325 Mg Tablet) 650 mg PO Q6H PRN PRN Reason: Pain, Mild (Pain Scale 1-3) Albuterol/Ipratropium (Albuterol/Iprat 2.5/0.5mg 3 Ml Ampul.Neb) 3 ml INHALE Q6H PRN PRN Reason: Shortness of breaths Bictegravir/Emtricitabine/Tenofovir (Bictegrav/Emtricit/Tenofov Ala Tablet) 1 tab PO DAILY [facility] Last Admin: 03/03/24 08:36 Dose: 1 tab Documented By: PRINCESS Bisacodyl (Bisacodyl 10 Mg Supp.Rect) 10 mg [place] DAILY PRN PRN Reason: Constipation Buprenorphine/Naloxone (Buprenorphine/Naloxone 8/2 Mg Film) 1 film SUBLINGUAL TID [facility] Last Admin: 03/03/24 08:40 Dose: 1 film Documented By: PRINCESS Bupropion HCl (Bupropion Hcl Xl 150 Mg Tab.Er.24h) 150 mg PO BID@0900,1500 [facility] Last Admin: 03/03/24 08:36 Dose: 150 mg Documented By: PRINCESS Buspirone HCl (Buspirone Hcl 5 Mg Tablet) 15 mg PO BID [facility] Last Admin: 03/03/24 08:36 Dose: 15 mg Documented By: PRINCESS Buspirone HCl (Buspirone Hcl 10 Mg Tablet) 10 mg PO BID [facility] Last Admin: 03/03/24 08:35 Dose: 10 mg Documented By: PRINCESS Clopidogrel Bisulfate (Clopidogrel Bisulfate 75 Mg Tablet) 75 mg PO DAILY [facility] Last Admin: 03/03/24 08:36 Dose: 75 mg Documented By: PRINCESS Docusate Sodium (Docusate Sodium 100 Mg Capsule) 100 mg PO BID [facility] Last Admin: 03/03/24 08:41 Dose: 100 mg Documented By: PRINCESS Famotidine (Famotidine 20 Mg Tablet) 20 mg PO DAILY [facility] Last Admin: 03/03/24 08:35 Dose: 20 mg Documented By: PRINCESS Fluticasone/Vilanterol (Fluticasone/Vilanterol 100/25 Blst.W.Dev) 1 puff INHALE RDAILY [facility] Last Admin: 03/03/24 08:38 Dose: 1 puff Documented By: CYNTHIA Folic Acid (Folic Acid 1 Mg Tablet) 1 mg PO DAILY [facility] Last Admin: 03/03/24 08:37 Dose: 1 mg Documented By: PRINCESS Gabapentin (Gabapentin 300 Mg Capsule) 300 mg PO TID [facility] Last Admin: 03/03/24 08:37 Dose: 300 mg Documented By: PRINCESS Glucose (Glucose Gel 15 Gm Gel..Gram.) 15 gm PO Q15M PRN; Protocol PRN Reason: per Hypoglycemia Standing Ord. Thiamine HCl 200 mg/ Sodium (Chloride) 102 mls @ 204 mls/hr IV Q8H [facility] Last Admin: 03/03/24 08:47 Dose: 204 mls/hr Documented By: PRINCESS Dextrose (D10) 250 mls @ 750 mls/hr IV Q15M PRN; Protocol PRN Reason: per Hypoglycemia Standing Ord. Insulin Human Lispro (Insulin Lispro 100 Unit/Ml 3 Ml Vial) 0 unit SUBCUT QIDACHS [facility]; Protocol Last Admin: 03/03/24 08:46 Dose: 2 unit Documented By: PRINCESS Lactulose (Lactulose 20 Gm/30 Ml Solution) 30 gm PO TID [facility] Last Admin: 03/03/24 08:40 Dose: 30 gm Documented By: PRINCESS Nicotine (Nicotine 14 Mg Patch.Td24) 14 mg TRANSDERMA DAILY [facility] Last Admin: 03/03/24 08:37 Dose: 14 mg Documented By: PRINCESS Ondansetron HCl (Ondansetron Hcl 4 Mg/2 Ml Vial) 4 mg IVPUSH Q6H PRN PRN Reason: Nausea and Vomiting Last Admin: 03/01/24 06:04 Dose: 4 mg Documented By: DESTIN Oxycodone HCl (Oxycodone Hcl Immed Release 5 Mg Tablet) 5 mg PO Q4H PRN PRN Reason: Pain, Severe (Pain Scale 7-10) Last Admin: 03/02/24 10:10 Dose: 5 mg Documented By: ANIYA Pharmacy Consult (Consult Rx Vancomycin Dosing) 1 each MISCELLANE DAILY PRN PRN Reason: Consult order Polyethylene Glycol (Polyethylene Glycol 3350 17 Gm Powd.Pack) 17 gm PO DAILY PRN PRN Reason: Constipation Last Admin: 03/02/24 13:32 Dose: 17 gm Documented By: ANIYA Quetiapine Fumarate (Quetiapine Fumarate 200 Mg Tablet) 200 mg PO BEDTIME [facility] Last Admin: 03/02/24 22:17 Dose: 200 mg Documented By: PARVIN Quetiapine Fumarate (Quetiapine Fumarate 50 Mg Tablet) 50 mg PO BEDTIME [facility] Last Admin: 03/02/24 22:17 Dose: 50 mg Documented By: PARVIN Rifaximin (Rifaximin 550 Mg Tablet) 550 mg PO BID [facility] Last Admin: 03/03/24 08:37 Dose: 550 mg Documented By: PRINCESS Sodium Chloride (0.9 % Sodium Chloride Flush 3 Ml Syringe) 3 ml IVFLUSH QSHIFT [facility] Last Admin: 03/03/24 08:47 Dose: 3 ml Documented By: PRINCESS Labs 03/02/24 05:55 03/03/24 07:51 Labs: Laboratory Results - last 24 hr 03/02/24 03/02/24 03/02/24 12:03 16:51 21:17 VBG pH VBG pCO2 VBG pO2 VBG HCO3 VBG O2 Saturation VBG Base Excess Estim Creat Clear Calc Estimated GFR POC Glucose 183 H 161 H 182 H Random Vancomycin 03/03/24 03/03/24 03/03/24 07:51 07:53 08:14 VBG pH 7.58 H VBG pCO2 21 VBG pO2 114 VBG HCO3 20 L VBG O2 Saturation 99.0 VBG Base Excess 1.2 Estim Creat Clear Calc 119.4 Estimated GFR > 60 POC Glucose 173 H Random Vancomycin 20.5 H Microbiology Microbiology Results: Microbiology 02/29/24 11:34 Blood Culture - Final Blood - Venous Staphylococcus aureus 02/29/24 11:39 Blood Culture - Final Blood - Venous Staphylococcus aureus 03/01/24 10:57 Blood Culture - Preliminary Blood - Venous No growth after 24 hours. 03/01/24 10:57 Blood Culture - Preliminary Blood - Venous No growth after 24 hours. Assessment and Plan (1) Decompensation of cirrhosis of liver: Status: Acute Plan This is a 59-year-old homeless male with history of opiate dependence on Suboxone, HIV on Biktarvy, chronic hepatitis-C, depression, PTSD, liver cirrhosis, COPD who was brought to the emergency department for evaluation of encephalopathy found to have elevated ammonia levels Acute respiratory failure with hypoxia suspected in part due to distended abdomen and resultant atelectasis currently on 15L face mask CXR stable VBG without CO2 retention will work on his GI issues and re-eval Constipation on bowel regime with minimal improvement s/p enema this AM with some movement, will repeat later today check KUB, will repeat abd ultrasound to eval for fluid if KUB wnl (previous ultrasound without much fluid) Acute Toxic metabolic encephalopathy Multifactorial due to hepatic encephalopathy in the setting of multifactorial liver cirrhosis and bacteremia appears to be slowly improving but still with asterixis continue rifaxinmin and lactulose Staph bacteremia 2/2 blood cultures growing Gram-positive cocci Echocardiogram without vegetations iv vancomyin duration TBD, but likely ? 4 weeks Alcoholic hepatitis GI input appreciated -- no steroids for now monitor lfts daily repeat labs pending today Acute lactic acidosis Likely secondary to decreased clearance due to underlying liver disease and not due to sepsis History of alcohol abuse No evidence of alcohol withdrawal at this time alcohol level negative in the emergency department CIWA remains low, no signs of etoh withdrawal at this time; if patient becomes symptomatic we will treat with phenobarbital protocol History of opiate abuse Denies the use of intravenous drugs reports using pills only Continue baseline Suboxone Addiction medicine consult pending as above Tobacco dependence Smoking cessation advised NRT Thrombocytopenia Appears chronic. Likely related to underlying liver disease Liver cirrhosis Has history of chronic hepatitis-C as well as alcohol abuse LFTs chronically elevated Normocytic anemia Likely due to chronic alcohol use Above transfusion threshold Mood Resume baseline medications bupropion, buspirone, seroquel HIV continue biktarvy outpatient follow up DVT prophylaxis Lovenox Healthcare proxy - patient reports he would want his brother Garfield to be his healthcare proxy Disposition-patient homeless, TBD based on blood culture results Patient requires ongoing inpatient stay for management of abdominal pain, bacteremia requiring IV antibiotics Quality Stroke Does the patient have a stroke diagnosis?: No VTE Prior VTE?: No VTE Risk Level:: Medical - moderate - high VTE Device Contraindication: N/A - Device Ordered VTE Drug Contraindication: Treatment Not Indicated
[2024-03-03 13:02] LABS: Glucose, Whole Blood 145 mg/dL (60-115)
[2024-03-03 14:01] LABS: Anion Gap 18 (12-20)
[2024-03-03 14:10] LABS: Alanine Aminotransferase 31 U/L (0-40); Albumin Level 2.8 g/dL (3.5-5.0); Alkaline Phosphatase 232 U/L (39-117); Aspartate Amino Transferase 63 U/L (5-37); Bilirubin Direct 6.6 mg/dL (0.0-0.5); Bilirubin Total 11.1 mg/dL (0.0-1.0); Carbon Dioxide 17 mmol/L (22-29); Chloride 103 mmol/L (96-108); Potassium 4.5 mmol/L (3.3-5.1); Sodium 133 mmol/L (135-145); Total Protein 7.9 g/dL (6.5-8.0)
[2024-03-03 16:42] LABS: B Type Natriuretic Peptide 47 pg/mL (<100)
[2024-03-03 16:47] LABS: Glucose, Whole Blood 158 mg/dL (60-115)
[2024-03-03 20:33] LABS: Glucose, Whole Blood 189 mg/dL (60-115)
[2024-03-03] MEDS: vancomycin HCL 1,250 MG in 0.9 % Sodium Chloride 250 ML 166.67 MG IV (21:58)
[2024-03-03] MEDS: QUEtiapine Fumarate 200 MG TABLET PO (21:59)
[2024-03-03] MEDS: QUEtiapine Fumarate 50 MG TABLET PO (21:59)
[2024-03-04] VITALS (11 sets, daily range): BP systolic 144–184; BP diastolic 72–105; PULSE 81–106; RESP 15–26; TEMP 35.7–36.8; O2SAT 88–96
[2024-03-04] MEDS: 0.9 % Sodium Chloride Flush 3 ML SYRINGE IVFLUSH ×3 (00:07→16:34)
[2024-03-04] MEDS: Thiamine HCL 200 MG in 0.9 % Sodium Chloride 100 ML 204 MG IV ×3 (02:50→16:45)
[2024-03-04 07:06] LABS: Hematocrit 42.5 % (42.0-52.0); Hemoglobin 14.8 g/dl (14.0-18.0); Mean Corpuscular HGB Conc 34.8 g/dl (31.0-36.0); Mean Corpuscular Hemoglobin 34.9 pg (27.0-33.0); Mean Corpuscular Volume 100.2 fL (80.0-98.0); Mean Platelet Volume 11.2 fL (9.4-12.4); Platelet Count 223 X10*3/uL (160-400); Red Blood Count 4.24 X10*6/uL (4.60-5.80)
[2024-03-04 07:17] LABS: INTERNATIONAL NORM RATIO 1.3 (0.9-1.1); Prothrombin Time 16.2 SEC (11.1-13.3)
[2024-03-04 07:26] LABS: Glucose, Whole Blood 153 mg/dL (60-115)
[2024-03-04 07:37] LABS: Alanine Aminotransferase 28 U/L (0-40); Albumin Level 2.8 g/dL (3.5-5.0); Alkaline Phosphatase 248 U/L (39-117); Anion Gap 18 (12-20); Aspartate Amino Transferase 49 U/L (5-37); Blood Urea Nitrogen 33 mg/dL (9-16); Carbon Dioxide 25 mmol/L (22-29); Chloride 102 mmol/L (96-108); Estimated Glomerular Filt Rate > 60; Glucose Random 150 mg/dL (60-115); Potassium 4.6 mmol/L (3.3-5.1); Sodium 140 mmol/L (135-145); Total Protein 7.7 g/dL (6.5-8.0); Vancomycin Random 16.7 mcg/mL (15-20)
[2024-03-04] MEDS: Fluticasone/Vilanterol 100/25 BLST.W.DEV 1 PUFF INHALE (07:43)
[2024-03-04] MEDS: oxyCODONE HCl Immed Release 5 MG TABLET PO ×3 (07:58→22:55)
[2024-03-04] MEDS: Famotidine 20 MG TABLET PO (07:59)
[2024-03-04] MEDS: busPIRone HCl 10 MG TABLET PO ×2 (07:59→22:03)
[2024-03-04] MEDS: Bictegrav/Emtricit/Tenofov Ala TABLET 1 TAB PO (07:59)
[2024-03-04] MEDS: Clopidogrel Bisulfate 75 MG TABLET PO (07:59)
[2024-03-04] MEDS: buPROPion HCl XL 150 MG TAB.ER.24H PO ×2 (07:59→16:34)
[2024-03-04] MEDS: rifAXIMin 550 MG TABLET PO ×2 (07:59→22:07)
[2024-03-04] MEDS: busPIRone HCl 5 MG TABLET 15 MG PO ×2 (07:59→22:02)
[2024-03-04] MEDS: Folic Acid 1 MG TABLET PO (07:59)
[2024-03-04] MEDS: Gabapentin 300 MG CAPSULE PO ×3 (07:59→22:07)
[2024-03-04] MEDS: Nicotine 14 MG PATCH.TD24 TRANSDERMA (08:01)
[2024-03-04] MEDS: Insulin Lispro 100 UNIT/ML 3 ML VIAL SUBCUT ×3 (08:01→16:45)
[2024-03-04] MEDS: Lactulose 20 GM/30 ML SOLUTION 30 GM PO ×3 (08:02→20:44)
[2024-03-04] MEDS: Docusate Sodium 100 MG CAPSULE PO ×2 (08:02→22:03)
--- NOTE | 2024-03-04 08:13 | HE.PHANOTE ---
RE: VANCO DOSING Random came back as 16.7, continue with dose of 1250 mg q12h, next random is scheduled for 03/05@0600.
--- NOTE | 2024-03-04 09:08 | MHC.CM.PN ---
PATIENT IS REQUIRING SUPPLEMENTAL OXYGEN AT THIS TIME. CASE MANAGEMENT FOLLOWING FOR DC NEEDS .
[2024-03-04 09:37] LABS: Absolute CD3 Count 868 cells/uL (840-3060); Absolute CD4 Count 270 cells/uL (490-1740); Absolute CD8 Count 612 cells/uL (180-1170); Absolute Lymphocytes 1580 cells/uL (850-3900); CD4 CD8 Ratio 0.44 (0.86-5.00); Percent CD3 Cells 55 % (57-85); Percent CD4 Cells 17 % (30-61); Percent CD8 Cells 39 % (12-42)
--- NOTE | 2024-03-04 10:27 | MHC.CM.PN ---
PER MEDICAL ROUNDS, PATIENT WILL LIKELY REQUIRE PICC LINE FOR IV ABX. NO PLAN FOR DC TODAY.
[2024-03-04 11:25] LABS: Glucose, Whole Blood 230 mg/dL (60-115)
[2024-03-04] MEDS: Albuterol/Iprat 2.5/0.5MG 3 ML AMPUL.NEB INHALE (11:26)
[2024-03-04] MEDS: Buprenorphine/Naloxone 8/2 mg FILM 1 FILM SUBLINGUAL ×3 (11:39→22:08)
[2024-03-04] MEDS: vancomycin HCL 1,250 MG in 0.9 % Sodium Chloride 250 ML 166.67 MG IV ×2 (11:45→20:42)
--- NOTE | 2024-03-04 14:47 | P.PNIM_ITS ---
Subjective Subjective Date of Service: 03/04/24 Interval History: seen and examined no abd pain, nausea or vomiting Review of Systems Negative except HPI/interval history. Physical Exam 2 Vital Signs: Vital Signs: Last Vital Signs Temp 98.1 F 03/04/24 12:00 Pulse 82 03/04/24 12:00 Resp 20 03/04/24 12:00 BP 159/72 H 03/04/24 12:00 Pulse Ox 88 L 03/04/24 12:00 O2 Del Method Nasal Cannula 03/04/24 12:00 O2 Flow Rate 7 03/04/24 12:00 BMI result Body Mass Index 26.6 Objective Data Active Medications Acetaminophen (Acetaminophen 325 Mg Tablet) 650 mg PO Q6H PRN PRN Reason: Pain, Mild (Pain Scale 1-3) Albuterol/Ipratropium (Albuterol/Iprat 2.5/0.5mg 3 Ml Ampul.Neb) 3 ml INHALE Q6H PRN PRN Reason: Shortness of breaths Last Admin: 03/04/24 11:26 Dose: 3 ml Documented By: FABIANA Bictegravir/Emtricitabine/Tenofovir (Bictegrav/Emtricit/Tenofov Ala Tablet) 1 tab PO DAILY [facility] Last Admin: 03/04/24 07:59 Dose: 1 tab Documented By: JUNE Bisacodyl (Bisacodyl 10 Mg Supp.Rect) 10 mg MN DAILY PRN PRN Reason: Constipation Buprenorphine/Naloxone (Buprenorphine/Naloxone 8/2 Mg Film) 1 film SUBLINGUAL TID [facility] Last Admin: 03/04/24 11:39 Dose: 1 film Documented By: KARYN Bupropion HCl (Bupropion Hcl Xl 150 Mg Tab.Er.24h) 150 mg PO BID@0900,1500 [facility] Last Admin: 03/04/24 07:59 Dose: 150 mg Documented By: JUNE Buspirone HCl (Buspirone Hcl 5 Mg Tablet) 15 mg PO BID [facility] Last Admin: 03/04/24 07:59 Dose: 15 mg Documented By: JUNE Buspirone HCl (Buspirone Hcl 10 Mg Tablet) 10 mg PO BID [facility] Last Admin: 03/04/24 07:59 Dose: 10 mg Documented By: JUNE Clopidogrel Bisulfate (Clopidogrel Bisulfate 75 Mg Tablet) 75 mg PO DAILY [facility] Last Admin: 03/04/24 07:59 Dose: 75 mg Documented By: JUNE Docusate Sodium (Docusate Sodium 100 Mg Capsule) 100 mg PO BID [facility] Last Admin: 03/04/24 08:02 Dose: 100 mg Documented By: JUNE Famotidine (Famotidine 20 Mg Tablet) 20 mg PO DAILY [facility] Last Admin: 03/04/24 07:59 Dose: 20 mg Documented By: JUNE Fluticasone/Vilanterol (Fluticasone/Vilanterol 100/25 Blst.W.Dev) 1 puff INHALE RDAILY [facility] Last Admin: 03/04/24 07:43 Dose: 1 puff Documented By: FABIANA Folic Acid (Folic Acid 1 Mg Tablet) 1 mg PO DAILY [facility] Last Admin: 03/04/24 07:59 Dose: 1 mg Documented By: JUNE Gabapentin (Gabapentin 300 Mg Capsule) 300 mg PO TID [facility] Last Admin: 03/04/24 07:59 Dose: 300 mg Documented By: JUNE Glucose (Glucose Gel 15 Gm Gel..Gram.) 15 gm PO Q15M PRN; Protocol PRN Reason: per Hypoglycemia Standing Ord. Thiamine HCl 200 mg/ Sodium (Chloride) 102 mls @ 204 mls/hr IV Q8H [facility] Last Infusion: 03/04/24 11:47 Dose: Infused Documented By: KARYN Dextrose (D10) 250 mls @ 750 mls/hr IV Q15M PRN; Protocol PRN Reason: per Hypoglycemia Standing Ord. Vancomycin HCl 1,250 mg/ (Sodium Chloride) 250 mls @ 166.667 mls/hr IV Q12H [facility] Last Admin: 03/04/24 11:45 Dose: 166.67 mls/hr Documented By: KARYN Insulin Human Lispro (Insulin Lispro 100 Unit/Ml 3 Ml Vial) 0 unit SUBCUT QIDACHS [facility]; Protocol Last Admin: 03/04/24 11:40 Dose: 4 unit Documented By: KARYN Lactulose (Lactulose 20 Gm/30 Ml Solution) 30 gm PO TID [facility] Last Admin: 03/04/24 08:02 Dose: 30 gm Documented By: JUNE Nicotine (Nicotine 14 Mg Patch.Td24) 14 mg TRANSDERMA DAILY [facility] Last Admin: 03/04/24 08:01 Dose: 14 mg Documented By: JUNE Ondansetron HCl (Ondansetron Hcl 4 Mg/2 Ml Vial) 4 mg IVPUSH Q6H PRN PRN Reason: Nausea and Vomiting Last Admin: 03/01/24 06:04 Dose: 4 mg Documented By: DESTIN Oxycodone HCl (Oxycodone Hcl Immed Release 5 Mg Tablet) 5 mg PO Q4H PRN PRN Reason: Pain, Severe (Pain Scale 7-10) Last Admin: 03/04/24 11:40 Dose: 5 mg Documented By: KARYN Pharmacy Consult (Consult Rx Vancomycin Dosing) 1 each MISCELLANE DAILY PRN PRN Reason: Consult order Polyethylene Glycol (Polyethylene Glycol 3350 17 Gm Powd.Pack) 17 gm PO DAILY PRN PRN Reason: Constipation Last Admin: 03/02/24 13:32 Dose: 17 gm Documented By: ANIYA Quetiapine Fumarate (Quetiapine Fumarate 200 Mg Tablet) 200 mg PO BEDTIME [facility] Last Admin: 03/03/24 21:59 Dose: 200 mg Documented By: ALEJANDRA Quetiapine Fumarate (Quetiapine Fumarate 50 Mg Tablet) 50 mg PO BEDTIME [facility] Last Admin: 03/03/24 21:59 Dose: 50 mg Documented By: ALEJANDRA Rifaximin (Rifaximin 550 Mg Tablet) 550 mg PO BID [facility] Last Admin: 03/04/24 07:59 Dose: 550 mg Documented By: JUNE Sodium Chloride (0.9 % Sodium Chloride Flush 3 Ml Syringe) 3 ml IVFLUSH QSHIFT [facility] Last Admin: 03/04/24 08:00 Dose: 3 ml Documented By: JUNE Labs 03/04/24 06:53 03/04/24 06:53 Labs: Laboratory Results - last 24 hr 03/02/24 03/03/24 03/03/24 05:55 15:29 16:44 MCV MCH MCHC RDW Plt Count MPV Absolute Nucleated RBC Nucleated RBC % (auto) PT INR Anion Gap Estim Creat Clear Calc Estimated GFR POC Glucose 158 H Random Glucose Calcium Total Bilirubin AST ALT Alkaline Phosphatase B-Natriuretic Peptide 47 Total Protein Albumin Random Vancomycin Total Lymphocytes 1580 % CD3 Cells 55 L Absolute CD3 Count 868 % CD4 Cells 17 L Absolute CD4 Count 270 L CD4/CD8 Ratio 0.44 L % CD8 Cells 39 Absolute CD8 Count 612 03/03/24 03/04/24 03/04/24 20:26 06:53 07:22 MCV 100.2 H MCH 34.9 H MCHC 34.8 RDW 16.0 Plt Count 223 D MPV 11.2 Absolute Nucleated RBC 0.000 Nucleated RBC % (auto) 0.0 PT 16.2 H INR 1.3 H Anion Gap 18 Estim Creat Clear Calc 96.0 Estimated GFR > 60 POC Glucose 189 H 153 H Random Glucose 150 H Calcium 9.0 D Total Bilirubin 14.0 H AST 49 H ALT 28 Alkaline Phosphatase 248 H B-Natriuretic Peptide Total Protein 7.7 Albumin 2.8 L Random Vancomycin 16.7 Total Lymphocytes % CD3 Cells Absolute CD3 Count % CD4 Cells Absolute CD4 Count CD4/CD8 Ratio % CD8 Cells Absolute CD8 Count 03/04/24 11:20 MCV MCH MCHC RDW Plt Count MPV Absolute Nucleated RBC Nucleated RBC % (auto) PT INR Anion Gap Estim Creat Clear Calc Estimated GFR POC Glucose 230 H Random Glucose Calcium Total Bilirubin AST ALT Alkaline Phosphatase B-Natriuretic Peptide Total Protein Albumin Random Vancomycin Total Lymphocytes % CD3 Cells Absolute CD3 Count % CD4 Cells Absolute CD4 Count CD4/CD8 Ratio % CD8 Cells Absolute CD8 Count Microbiology Microbiology Results: Microbiology 03/01/24 10:57 Blood Culture - Preliminary Blood - Venous No growth after 48 hours. 03/01/24 10:57 Blood Culture - Preliminary Blood - Venous No growth after 48 hours. Assessment and Plan (1) Decompensation of cirrhosis of liver: Status: Acute Plan This is a 59-year-old homeless male with history of opiate dependence on Suboxone, HIV on Biktarvy, chronic hepatitis-C, depression, PTSD, liver cirrhosis, COPD who was brought to the emergency department for evaluation of encephalopathy found to have elevated ammonia levels Worsening leukocytosis no fever check chest and abd ct to r/o infectious process continue vancomycin Alcoholic hepatitis GI input appreciated> no steroids for now in light of bacteremia Acute respiratory failure with hypoxia suspected in part due to distended abdomen and resultant atelectasis currently on 15L face mask CXR stable VBG without CO2 retention Staph aureus bacteremia 2/2 blood cultures growing Gram-positive cocci Echocardiogram without vegetations iv vancomyin likely 4 weeks of abx Constipation continue bowel regime s/p enema Acute Toxic metabolic encephalopathy Multifactorial due to hepatic encephalopathy in the setting of multifactorial liver cirrhosis and bacteremia appears to be slowly improving but still with asterixis continue rifaximin and lactulose Acute lactic acidosis Likely secondary to decreased clearance due to underlying liver disease and not due to sepsis History of alcohol abuse No evidence of alcohol withdrawal at this time alcohol level negative in the emergency department CIWA remains low, no signs of etoh withdrawal at this time; if patient becomes symptomatic we will treat with phenobarbital protocol History of opiate abuse Denies the use of intravenous drugs reports using pills only Continue baseline Suboxone Addiction medicine consult pending as above Tobacco dependence Smoking cessation advised NRT Thrombocytopenia Appears chronic. Likely related to underlying liver disease Liver cirrhosis Has history of chronic hepatitis-C as well as alcohol abuse LFTs chronically elevated Normocytic anemia Likely due to chronic alcohol use Above transfusion threshold Mood Resume baseline medications bupropion, buspirone, seroquel HIV continue biktarvy outpatient follow up DVT prophylaxis Lovenox Healthcare proxy - patient reports he would want his brother Garfield to be his healthcare proxy Disposition-patient homeless, TBD based on blood culture results Patient requires ongoing inpatient stay for management of abdominal pain, bacteremia requiring IV antibiotics Quality Stroke Does the patient have a stroke diagnosis?: No VTE Prior VTE?: No VTE Risk Level:: Medical - moderate - high VTE Device Contraindication: N/A - Device Ordered VTE Drug Contraindication: Treatment Not Indicated
[2024-03-04 16:13] LABS: Glucose, Whole Blood 193 mg/dL (60-115)
[2024-03-04 20:14] LABS: Glucose, Whole Blood 131 mg/dL (60-115)
[2024-03-04] MEDS: ondansetron HCL 4 MG/2 ML VIAL IVPUSH (20:59)
[2024-03-04 21:32] LABS: ABG Base Excess 0.6 mmol/L; ABG HCO3 23 mmol/L (22-26); ABG pCO2 32 mmHg (32-45); ABG pH 7.46 (7.35-7.45); ABG pO2 64 mmHg (83-108)
[2024-03-04] MEDS: Furosemide 100 MG/10 ML VIAL 60 MG IVPUSH (21:34)
[2024-03-04 21:45] LABS: Basophils Absolute Auto 0.1 X10*3/uL (0.0-0.2); Basophils Percent Auto 0.5 % (0-2); Eosinophils Absolute Auto 0.2 X10*3/uL (0.0-0.4); Eosinophils Percent Auto 0.6 % (0-4); Hematocrit 43.9 % (42.0-52.0); Hemoglobin 15.3 g/dl (14.0-18.0); Imm Gran Abs Auto 0.51 X10*3/uL (0.00-0.03); Imm Gran Pct Auto 1.9 % (0.0-0.4); Lymphocytes Absolute Auto 2.4 X10*3/uL (1.2-4.9); Lymphocytes Percent Auto 9.1 % (20-40); MANUAL DIFF FLAG SCAN; Mean Corpuscular HGB Conc 34.9 g/dl (31.0-36.0); Mean Corpuscular Hemoglobin 34.2 pg (27.0-33.0); Mean Corpuscular Volume 98.2 fL (80.0-98.0); Mean Platelet Volume 11.1 fL (9.4-12.4); Monocytes Absolute Auto 2.5 X10*3/uL (0.1-1.2); Monocytes Percent Auto 9.3 % (2-11); Neutrophils Absolute Auto 20.9 x10*3/uL (2.0-8.3); Neutrophils Percent Auto 78.6 % (45-73); Platelet Count 257 X10*3/uL (160-400); Red Blood Count 4.47 X10*6/uL (4.60-5.80); Red Cell Distribution Width 16.1 % (11.0-16.0); SCAN SMEAR FLAG 1; White Blood Count 26.5 X10*3/uL (4.8-10.8)
[2024-03-04 22:00] LABS: Alanine Aminotransferase 32 U/L (0-40); Albumin Level 3.1 g/dL (3.5-5.0); Alkaline Phosphatase 283 U/L (39-117); Anion Gap 17 (12-20); Aspartate Amino Transferase 55 U/L (5-37); Bilirubin Total 14.7 mg/dL (0.0-1.0); Blood Urea Nitrogen 35 mg/dL (9-16); Carbon Dioxide 24 mmol/L (22-29); Chloride 100 mmol/L (96-108); Estimated Glomerular Filt Rate > 60; Glucose Random 167 mg/dL (60-115); Magnesium 2.1 mg/dL (1.6-2.6); Sodium 137 mmol/L (135-145); Total Protein 8.3 g/dL (6.5-8.0)
[2024-03-04] MEDS: QUEtiapine Fumarate 50 MG TABLET PO (22:04)
[2024-03-04 22:05] LABS: B Type Natriuretic Peptide 53 pg/mL (<100); SLIDE REVIEW VERIFIED
[2024-03-04] MEDS: QUEtiapine Fumarate 200 MG TABLET PO (22:06)
[2024-03-04 22:59] LABS: ABG Refer to POC result
--- NOTE | 2024-03-04 23:10 | P.EN_ITS ---
Event Note Date of Service: 03/05/24 Event Note: 9:03 PM - Contacted by nursing to notify Mr. Damian is having a hard time breathing and O2 sats dropped to 85% on 7L/min oxymask. On evaluation, patient was noted to be fatigued. Alert and answering simple questions appropriately. Cardiopulmonary exam remarkable for mid lung crackles however poor inspiratory effort. Abdomen seems to be distended and barely depressible. Lasix 60 mg IV given stat. Indwelling urinary catheter ordered but unable to find a catheter that fit him. He is urinary spontaneously. ABGs stat obtained and remarkable for low PO2. Started on high flow. 11:53 PM - Radiology service contacted me about chest, abdomen pelvis CT scan results. There is concern for aspiration pneumonia, no pulmonary embolism, ascites and SBO vs ileus. NPO order and surgery consult placed. Therapy with Zosyn was initiated and will continue vancomycin for Staphylococcus bacteremia. 3:14 AM - Contacted by nursing to let me know to express concern about patient's symptoms. Patient persists with increased short of breath, drowsiness and has congestive lungs. Abdomen seems to be more distended. Small amount of emesis. NG tube was placed and draining abundant quantity > 2L of dark gastric content. Stool for occult blood testing contrast was ordered. Plavix is on hold now. Protonix 40 mg IV twice daily ordered. We will hold all sedatives/[employer] meds including oxycodone, Seroquel, gabapentin and bupropion as well stool softeners/laxatives. 4:45 AM - IVFs started: KCl 40 mEq + D5 + normal saline. Recheck lytes at 10 am as well as ammonia level. Lactulose on hold due to possible SBO. 5:00 AM - Discussed with ICU team. Recommended to cover for SBP, reengaging IR for possible paracentesis and check type and screen. Time Spent With Patient Time: Total time managing care of this patient today ____ minutes.
[2024-03-05] VITALS (11 sets, daily range): BP systolic 119–145; BP diastolic 58–97; PULSE 76–112; RESP 15–22; TEMP 36.2–36.9; O2SAT 90–96
[2024-03-05] MEDS: Prochlorperazine Edisylate 10 MG/2 ML VIAL 5 MG IVPUSH (00:54)
[2024-03-05] MEDS: Piperacillin Sodium/Tazobactam 3.375 GM in 0.9 % Sodium Chloride 50 ML IV ×3 (02:20→15:29)
[2024-03-05] MEDS: Thiamine HCL 200 MG in 0.9 % Sodium Chloride 100 ML 204 MG IV ×3 (02:20→15:29)
[2024-03-05 05:01] LABS: Hematocrit 42.9 % (42.0-52.0); Hemoglobin 15.1 g/dl (14.0-18.0); Mean Corpuscular HGB Conc 35.2 g/dl (31.0-36.0); Mean Corpuscular Hemoglobin 34.6 pg (27.0-33.0); Mean Corpuscular Volume 98.2 fL (80.0-98.0); Mean Platelet Volume 11.2 fL (9.4-12.4); Platelet Count 256 X10*3/uL (160-400); Red Blood Count 4.37 X10*6/uL (4.60-5.80); Red Cell Distribution Width 16.2 % (11.0-16.0)
[2024-03-05 05:11] LABS: GASOB Int Pos Ctl Valid YES
[2024-03-05 05:12] LABS: GASOB Int Neg Ctl Valid YES; GASOB Lot 20422; Occult Blood Gastric POSITIVE (NEG)
[2024-03-05 05:19] LABS: Alanine Aminotransferase 33 U/L (0-40); Albumin Level 2.9 g/dL (3.5-5.0); Alkaline Phosphatase 292 U/L (39-117); Anion Gap 17 (12-20); Aspartate Amino Transferase 65 U/L (5-37); Bilirubin Direct 11.1 mg/dL (0.0-0.5); Bilirubin Total 15.4 mg/dL (0.0-1.0); Blood Urea Nitrogen 38 mg/dL (9-16); Carbon Dioxide 22 mmol/L (22-29); Chloride 101 mmol/L (96-108); Creatinine Clr Calc Pharmacy 102.7; Estimated Glomerular Filt Rate > 60; Glucose Random 216 mg/dL (60-115); Magnesium 2.1 mg/dL (1.6-2.6); Potassium 4.2 mmol/L (3.3-5.1); Sodium 136 mmol/L (135-145); Total Protein 8.2 g/dL (6.5-8.0)
[2024-03-05] MEDS: KCl 40 mEq in 5% Dex/0.9% Sod 40 MEQ/1,000 ML IV.SOLN 100 MEQ IVCONT ×2 (05:48→15:29)
[2024-03-05] MEDS: Pantoprazole Sodium 40 MG/10 ML VIAL IVPUSH ×2 (05:49→15:29)
[2024-03-05] MEDS: Albumin Human 25 % 100 ML IV ×4 (05:57→23:07)
--- NOTE | 2024-03-05 06:22 | PM.EVENT ---
Documented by User: Rosina Hughes NP 03/05/24 06:25 Event Note Date of Service: 03/05/24 Event Note: Dr. Veliz requested that the patient be evaluated for level of care evaluation. The patient?s oxygen requirements had been increasing throughout the day.? He was put on high-flow around midnight? For a low PO2 without CO2 retention.? At that time his labs were drawn and were significant for leukocytosis.? He was given Lasix.? CT done earlier in the day showed aspiration pneumonia, atelectasis, no PE, ascites, SBO versus ileus. ? An NG tube was placed.? He was started on Zosyn.? He was started on fluids with KCl.? He was given Protonix IV.? A surgery consult was placed. An IR consult was placed. On my assessment the patient was lethargic but arousable. His skin was jaundiced; icteric sclera. Breath sounds even and unlabored, breathing easy, not in any distress. He had drained about 4 L through the NG tube. Abdomen round but soft. Bowel sounds absent. Vital signs stable BP 116/79, heart rate 90, afebrile, O2 sat 95-96% on 50 L/ 70% high-flow.? At this time, he does not require additional sedation or airway management necessitating a transfer to the ICU. The case was discussed with Dr Veliz who will monitor the patient on? the medical floor and notify for re-evaluation if the patient's condition changes. Patient's care was discussed in detail with Dr. Talbot.? She is aware of all the above as well as the plan of care for this patient. Time Spent With Patient Time: Total time managing care of this patient today ____ minutes. Documented by User: Kendal Talbot MD 03/05/24 08:10 Event Note Date of Service: 03/05/24 Event Note: Dr. Veliz requested that the patient be evaluated for level of care evaluation. The patient?s oxygen requirements had been increasing throughout the day.? He was put on high-flow around midnight? For a low PO2 without CO2 retention.? At that time his labs were drawn and were significant for leukocytosis.? He was given Lasix.? CT done earlier in the day showed aspiration pneumonia, atelectasis, no PE, ascites, SBO versus ileus. ? An NG tube was placed.? He was started on Zosyn.? He was started on fluids with KCl.? He was given Protonix IV.? A surgery consult was placed. An IR consult was placed. On my assessment the patient was lethargic but arousable. His skin was jaundiced; icteric sclera. Breath sounds even and unlabored, breathing easy, not in any distress. He had drained about 4 L through the NG tube. Abdomen round but soft. Bowel sounds absent. Vital signs stable BP 116/79, heart rate 90, afebrile, O2 sat 95-96% on 50 L/ 70% high-flow.? At this time, he does not require additional sedation or airway management necessitating a transfer to the ICU. The case was discussed with Dr Veliz who will monitor the patient on? the medical floor and notify for re-evaluation if the patient's condition changes. Patient's care was discussed in detail with Dr. Talbot.? She is aware of all the above as well as the plan of care for this patient. I agree with the above. In addition, it was discussed with Dr. Veliz to maintain a low threshold to treat empirically for spontaneous bacterial peritonitis.
[2024-03-05 06:29] LABS: Glucose, Whole Blood 200 mg/dL (60-115)
[2024-03-05 07:45] LABS: Glucose, Whole Blood 189 mg/dL (60-115)
[2024-03-05 07:56] LABS: Vancomycin Random 32.8 mcg/mL (15-20)
[2024-03-05] MEDS: Fluticasone/Vilanterol 100/25 BLST.W.DEV 1 PUFF INHALE (08:02)
[2024-03-05] MEDS: 0.9 % Sodium Chloride Flush 3 ML SYRINGE IVFLUSH ×2 (08:09→15:29)
--- NOTE | 2024-03-05 08:17 | HE.PHANOTE ---
Addendum entered by Radha Landrum [facility] 03/05/24 08:20: Decided to get another level @1800 to verify trough level Original Note: RE: vanco Level on 03/05 came back high at 32.8mg/L. Held dose for today. Next level to be drawn 03/06/24 @0700. PAteint's creatinine improving; verified with nurse that nothing odd happened regarding vanco/lab draws overnight.
--- NOTE | 2024-03-05 09:15 | P.CONGS_ITS ---
History of Present Illness Consult details Consult date: 03/05/24 Requesting physician: Barbara Galeano Narrative: This is a 59 year old male with history of opiate abuse on Suboxone chronic hepatitis-C, HIV on Biktarvy, history of alcohol abuse, liver cirrhosis brought into the emergency department for evaluation of altered mental status. He was reportedly found by bystanders slumped over outside of a hotel. He reports drinking a lot of alcohol however his alcohol level was negative. Received a dose of lactulose and empiric antibiotics. Multiple imaging studies obtained mostly unremarkable. Patient was complaining of abdominal pain, CT scan of the abdomen and pelvis was negative for any acute changes. Did show compression deformity of L4 which was slightly progressed from prior study in 2021. Slight abdominal distention therefore plan was for paracentesis however there was not enough abdominal fluid for this to be done. He received a dose of lactulose and his mental status improved somewhat. Brain CT was negative for any acute changes, chronic white matter ischemic changes noted. Lab work was significant for elevated ammonia level. He was afebrile, no leukocytosis, no evidence of infection. Lactic acid initially 2.6, down to 1.3 after fluid. LFTs chronically elevated, appears similar to baseline. Patient will be admitted for further management of acute toxic metabolic encephalopathy Pt had been doing better but now worse with increasing abdo distension and CT confirming distended stomach and small bowel. Pt has been given lactulose and was passing stool. Also noted to have pneumonia and being treated for that with iv antibx. NG tube placed and 4L of fluid removed intiially now less over the day - pt not cooperative and poor mental status for getting a history and accurate exam. Review of Systems 2 Review of Systems: Yes Unobtainable due to mental condition and Unobtainable due to mental status PMFSH Past Medical History Medical History Cocaine abuse Opioid abuse MDD (major depressive disorder), recurrent severe, without psychosis Coccygeal pain Acute foot pain IBS (irritable bowel syndrome) COPD (chronic obstructive pulmonary disease) Prediabetes Colitis Hypertension PTSD (post-traumatic stress disorder) Osteoarthritis of both hips Opioid dependence Hepatitis C HIV infection Family History Family History Other No family history of coronary artery disease Family history: reviewed and not pertinent Surgical History Surgical History Status post right shoulder hemiarthroplasty History of right hip replacement Social History Social History Household Members: Friend(s) Housing: Homeless Do you presently have visiting nurse or other home services: No Unable to assess alcohol history related to: Unknown Alcohol intake: current Alcohol intake frequency: 0-2 drinks per day Alcohol type: beer Patient Tobacco Use Status: Current everyday Tobacco user Tobacco use type: Cigarette Cigarette Packs Per Day: 1 Cigarettes Per Day: 20.0 Years Smoked: 35 Substance Use Type: Marijuana Advance Directives Date on File: 09/07/22 service: No Current occupational status: disabled Sexual orientation: Straight/Heterosexual Meds Allergies Allergy/AdvReac Type Severity Reaction Status Date / Time ketorolac [From Toradol] AdvReac Itching Verified 02/29/24 09:47 Active Medications: Current Medications Albuterol/Ipratropium (Albuterol/Iprat 2.5/0.5mg 3 Ml Ampul.Neb) 3 ml INHALE Q6H PRN PRN Reason: Shortness of breaths Last Admin: 03/04/24 11:26 Dose: 3 ml Bictegravir/Emtricitabine/Tenofovir (Bictegrav/Emtricit/Tenofov Ala Tablet) 1 tab PO DAILY [facility] Last Admin: 03/05/24 09:04 Dose: Not Given Bisacodyl (Bisacodyl 10 Mg Supp.Rect) 10 mg NE DAILY PRN PRN Reason: Constipation Buprenorphine/Naloxone (Buprenorphine/Naloxone 8/2 Mg Film) 1 film SUBLINGUAL TID [facility] Last Admin: 03/05/24 09:04 Dose: Not Given Bupropion HCl (Bupropion Hcl Xl 150 Mg Tab.Er.24h) 150 mg PO BID@0900,1500 [facility] Last Admin: 03/04/24 16:34 Dose: 150 mg Buspirone HCl (Buspirone Hcl 10 Mg Tablet) 10 mg PO BID [facility] Last Admin: 03/04/24 22:03 Dose: 10 mg Clopidogrel Bisulfate (Clopidogrel Bisulfate 75 Mg Tablet) 75 mg PO DAILY [facility] Last Admin: 03/04/24 07:59 Dose: 75 mg Docusate Sodium (Docusate Sodium 100 Mg Capsule) 100 mg PO BID [facility] Last Admin: 03/04/24 22:03 Dose: 100 mg Fluticasone/Vilanterol (Fluticasone/Vilanterol 100/25 Blst.W.Dev) 1 puff INHALE RDAILY [facility] Last Admin: 03/05/24 08:02 Dose: 1 puff Folic Acid (Folic Acid 1 Mg Tablet) 1 mg PO DAILY [facility] Last Admin: 03/05/24 09:04 Dose: Not Given Gabapentin (Gabapentin 300 Mg Capsule) 300 mg PO TID [facility] Last Admin: 03/04/24 22:07 Dose: 300 mg Glucose (Glucose Gel 15 Gm Gel..Gram.) 15 gm PO Q15M PRN; Protocol PRN Reason: per Hypoglycemia Standing Ord. Thiamine HCl 200 mg/ Sodium (Chloride) 102 mls @ 204 mls/hr IV Q8H [facility] Last Infusion: 03/05/24 09:02 Dose: Infused Dextrose (D10) 250 mls @ 750 mls/hr IV Q15M PRN; Protocol PRN Reason: per Hypoglycemia Standing Ord. Piperacillin Sod/Tazobactam (Sod 3.375 gm/ Sodium Chloride) 50 mls @ 100 mls/hr IV Q8H [facility] Last Infusion: 03/05/24 09:02 Dose: Infused Potassium Chloride/Dextrose/Sod Cl (Kcl 40 Meq In 5% Dex/0.9% Sod) 40 meq in 1,000 mls @ 100 mls/hr IVCONT .Q10H [facility] Last Admin: 03/05/24 05:48 Dose: 100 mls/hr Albumin Human (Kedbumin 25 %) 100 mls @ 100 mls/hr IV Q6H [facility] Stop: 03/05/24 23:44 Last Infusion: 03/05/24 06:57 Dose: Infused Vancomycin HCl 500 mg/ Sodium (Chloride) 110 mls @ 110 mls/hr IV Q24H [facility] Insulin Human Lispro (Insulin Lispro 100 Unit/Ml 3 Ml Vial) 0 unit SUBCUT Q6H [facility]; Protocol Last Admin: 03/05/24 07:51 Dose: Not Given Lactulose (Lactulose 20 Gm/30 Ml Solution) 30 gm PO TID [facility] Last Admin: 03/04/24 20:44 Dose: 30 gm Ondansetron HCl (Ondansetron Hcl 4 Mg/2 Ml Vial) 4 mg IVPUSH Q6H PRN PRN Reason: Nausea and Vomiting Last Admin: 03/04/24 20:59 Dose: 4 mg Oxycodone HCl (Oxycodone Hcl Immed Release 5 Mg Tablet) 5 mg PO Q4H PRN PRN Reason: Pain, Severe (Pain Scale 7-10) Last Admin: 03/04/24 22:55 Dose: 5 mg Pantoprazole Sodium (Pantoprazole Sodium 40 Mg/10 Ml Vial) 40 mg IVPUSH BID@0630,1630 [facility] Last Admin: 03/05/24 05:49 Dose: 40 mg Pharmacy Consult (Consult Rx Vancomycin Dosing) 1 each MISCELLANE DAILY PRN PRN Reason: Consult order Polyethylene Glycol (Polyethylene Glycol 3350 17 Gm Powd.Pack) 17 gm PO DAILY PRN PRN Reason: Constipation Last Admin: 03/02/24 13:32 Dose: 17 gm Quetiapine Fumarate (Quetiapine Fumarate 200 Mg Tablet) 200 mg PO BEDTIME [facility] Last Admin: 03/04/24 22:06 Dose: 200 mg Quetiapine Fumarate (Quetiapine Fumarate 50 Mg Tablet) 50 mg PO BEDTIME [facility] Last Admin: 03/04/24 22:04 Dose: 50 mg Rifaximin (Rifaximin 550 Mg Tablet) 550 mg PO BID [facility] Last Admin: 03/04/24 22:07 Dose: 550 mg Sodium Chloride (0.9 % Sodium Chloride Flush 3 Ml Syringe) 3 ml IVFLUSH QSHIFT [facility] Last Admin: 03/05/24 08:09 Dose: 3 ml Home Medications ?Medication ?Instructions ?Recorded ?Confirmed ?Last Taken ?Type buprenorphine 8 mg-naloxone 2 mg 1 film sublingual TID 05/25/23 02/29/24 05/22/23 History sublingual film (Suboxone) buspirone 10 mg tablet 10 mg PO BID 02/29/24 02/29/24 Unknown History buspirone 30 mg tablet 15 mg PO BID 02/29/24 02/29/24 Unknown History clopidogrel 75 mg tablet 75 mg PO DAILY 02/29/24 02/29/24 Unknown History empagliflozin 10 mg tablet 10 mg PO DAILY 02/29/24 02/29/24 Unknown History (Jardiance) folic acid 1 mg tablet 1 mg PO DAILY 02/29/24 02/29/24 Unknown History lactulose 10 gram/15 mL oral PO 02/29/24 Unknown History solution (Enulose) melatonin 3 mg tablet 3 mg PO BEDTIME 02/29/24 02/29/24 Unknown History pantoprazole 40 mg tablet,delayed 40 mg PO DAILY@0630 02/29/24 02/29/24 Unknown History release quetiapine 200 mg tablet 200 mg PO BEDTIME 02/29/24 02/29/24 Unknown History quetiapine 50 mg tablet 50 mg PO BEDTIME 02/29/24 02/29/24 Unknown History Physical Exam 2 Vital Signs: Vital Signs: Last Vital Signs Temp 97.1 F 03/05/24 07:32 Pulse 87 03/05/24 08:02 Resp 18 03/05/24 08:02 BP 132/76 03/05/24 07:32 Pulse Ox 94 03/05/24 07:32 O2 Del Method High Flow Nasal C annula 03/05/24 07:32 O2 Flow Rate 50 03/05/24 07:32 FiO2 75 03/05/24 07:32 BMI result Body Mass Index 26.6 GI: Other: abdomen is distended but soft not seemingly tender hypo bowel sounds greenish ng fluid coming out - little thick Results Labs 03/05/24 04:54 03/05/24 10:18 Labs: Abnormal lab results 03/02/24 03/04/24 03/04/24 Range/Units 05:55 11:20 16:03 WBC (4.8-10.8) X10*3/uL RBC (4.60-5.80) X10*6/uL MCV (80.0-98.0) fL MCH (27.0-33.0) pg RDW (11.0-16.0) % Immature Gran % (Auto) (0.0-0.4) % Neut % (Auto) (45-73) % Lymph % (Auto) (20-40) % Worth # (Auto) (0.1-1.2) X10*3/uL Abs Immat Gran (auto) (0.00-0.03) X10*3/uL Absolute Neuts (auto) (2.0-8.3) x10*3/uL ABG pH at Pt Temp (7.35-7.45) ABG pO2 at Pt Temp (83-108) mmHg BUN (9-16) mg/dL POC Glucose 230 H 193 H (60-115) mg/dL Random Glucose (60-115) mg/dL Total Bilirubin (0.0-1.0) mg/dL Direct Bilirubin (0.0-0.5) mg/dL AST (5-37) U/L Alkaline Phosphatase (39-117) U/L Total Protein (6.5-8.0) g/dL Albumin (3.5-5.0) g/dL Random Vancomycin (15-20) mcg/mL % CD3 Cells 55 L (57-85) % % CD4 Cells 17 L (30-61) % Absolute CD4 Count 270 L (490-1740) cells/uL CD4/CD8 Ratio 0.44 L (0.86-5.00) 03/04/24 03/04/24 03/04/24 Range/Units 20:09 21:23 21:37 WBC 26.5 H (4.8-10.8) X10*3/uL RBC 4.47 L (4.60-5.80) X10*6/uL MCV 98.2 H (80.0-98.0) fL MCH 34.2 H (27.0-33.0) pg RDW 16.1 H (11.0-16.0) % Immature Gran % (Auto) 1.9 H (0.0-0.4) % Neut % (Auto) 78.6 H (45-73) % Lymph % (Auto) 9.1 L (20-40) % Worth # (Auto) 2.5 H (0.1-1.2) X10*3/uL Abs Immat Gran (auto) 0.51 H (0.00-0.03) X10*3/uL Absolute Neuts (auto) 20.9 H (2.0-8.3) x10*3/uL ABG pH at Pt Temp 7.46 H (7.35-7.45) ABG pO2 at Pt Temp 64 L (83-108) mmHg BUN 35 H (9-16) mg/dL POC Glucose 131 H (60-115) mg/dL Random Glucose 167 H (60-115) mg/dL Total Bilirubin 14.7 H (0.0-1.0) mg/dL Direct Bilirubin (0.0-0.5) mg/dL AST 55 H (5-37) U/L Alkaline Phosphatase 283 H (39-117) U/L Total Protein 8.3 H (6.5-8.0) g/dL Albumin 3.1 L (3.5-5.0) g/dL Random Vancomycin (15-20) mcg/mL % CD3 Cells (57-85) % % CD4 Cells (30-61) % Absolute CD4 Count (490-1740) cells/uL CD4/CD8 Ratio (0.86-5.00) 03/05/24 03/05/24 03/05/24 Range/Units 04:54 06:25 06:53 WBC 26.0 H (4.8-10.8) X10*3/uL RBC 4.37 L (4.60-5.80) X10*6/uL MCV 98.2 H (80.0-98.0) fL MCH 34.6 H (27.0-33.0) pg RDW 16.2 H (11.0-16.0) % Immature Gran % (Auto) (0.0-0.4) % Neut % (Auto) (45-73) % Lymph % (Auto) (20-40) % Worth # (Auto) (0.1-1.2) X10*3/uL Abs Immat Gran (auto) (0.00-0.03) X10*3/uL Absolute Neuts (auto) (2.0-8.3) x10*3/uL ABG pH at Pt Temp (7.35-7.45) ABG pO2 at Pt Temp (83-108) mmHg BUN 38 H (9-16) mg/dL POC Glucose 200 H (60-115) mg/dL Random Glucose 216 H (60-115) mg/dL Total Bilirubin 15.4 H (0.0-1.0) mg/dL Direct Bilirubin 11.1 H (0.0-0.5) mg/dL AST 65 H (5-37) U/L Alkaline Phosphatase 292 H (39-117) U/L Total Protein 8.2 H (6.5-8.0) g/dL Albumin 2.9 L (3.5-5.0) g/dL Random Vancomycin 32.8 H* (15-20) mcg/mL % CD3 Cells (57-85) % % CD4 Cells (30-61) % Absolute CD4 Count (490-1740) cells/uL CD4/CD8 Ratio (0.86-5.00) 03/05/24 Range/Units 07:31 WBC (4.8-10.8) X10*3/uL RBC (4.60-5.80) X10*6/uL MCV (80.0-98.0) fL MCH (27.0-33.0) pg RDW (11.0-16.0) % Immature Gran % (Auto) (0.0-0.4) % Neut % (Auto) (45-73) % Lymph % (Auto) (20-40) % Worth # (Auto) (0.1-1.2) X10*3/uL Abs Immat Gran (auto) (0.00-0.03) X10*3/uL Absolute Neuts (auto) (2.0-8.3) x10*3/uL ABG pH at Pt Temp (7.35-7.45) ABG pO2 at Pt Temp (83-108) mmHg BUN (9-16) mg/dL POC Glucose 189 H (60-115) mg/dL Random Glucose (60-115) mg/dL Total Bilirubin (0.0-1.0) mg/dL Direct Bilirubin (0.0-0.5) mg/dL AST (5-37) U/L Alkaline Phosphatase (39-117) U/L Total Protein (6.5-8.0) g/dL Albumin (3.5-5.0) g/dL Random Vancomycin (15-20) mcg/mL % CD3 Cells (57-85) % % CD4 Cells (30-61) % Absolute CD4 Count (490-1740) cells/uL CD4/CD8 Ratio (0.86-5.00) Short CBC 03/04/24 03/05/24 Range/Units 21:37 04:54 WBC 26.5 H 26.0 H (4.8-10.8) X10*3/uL Hgb 15.3 15.1 (14.0-18.0) g/dl Hct 43.9 42.9 (42.0-52.0) % Plt Count 257 256 (160-400) X10*3/uL BMP 03/04/24 03/05/24 21:37 04:54 Sodium 137 136 Potassium 4.0 4.2 Chloride 100 101 Carbon Dioxide 24 22 BUN 35 H 38 H Creatinine 0.94 0.86 Calcium 9.0 9.0 Liver Function 03/04/24 03/05/24 Range/Units 21:37 04:54 Total Bilirubin 14.7 H 15.4 H (0.0-1.0) mg/dL Direct Bilirubin 11.1 H (0.0-0.5) mg/dL AST 55 H 65 H (5-37) U/L ALT 32 33 (0-40) U/L Alkaline Phosphatase 283 H 292 H (39-117) U/L Albumin 3.1 L 2.9 L (3.5-5.0) g/dL Urine 02/29/24 Range/Units 13:10 Urine Color Yellow Urine Appearance Clear Urine pH 7.0 (5.0-9.0) Ur Specific Sunburst >= 1.030 H (1.005-1.025) Urine Protein Negative (Neg-Trace) mg/dL Urine Glucose (UA) >=1000 H (Negative) mg/dL All other labs normal. Imaging Additional studies: official read of ct scan still pending but seemingly looks like ileus with distension throughout sb and stomach and no transition point Assessment and Plan (1) Ileus: Status: Acute Plan 59 yo male with mulitple med issues - hepatic encephalopathy from ETOH abuse, pneumonia - aspiration, ileus - at this point no surgical intervention is required and the pt is extremely high risk. agree with conservative management- his NH is going up so lactulose is an option - if not much via ng can give via ng and clamp and then reopen and resume suction. correct lytes - hard to do with his issues will follow along Procedures Date of Service Date of Service: 03/05/24
--- NOTE | 2024-03-05 09:54 | P.PNIM_ITS ---
Subjective Subjective Date of Service: 03/05/24 Interval History: seen and examined no abd pain, nausea or vomiting more encephalopathic today Review of Systems Negative except HPI/interval history. Physical Exam 2 Vital Signs: Vital Signs: Last Vital Signs Temp 97.1 F 03/05/24 07:32 Pulse 87 03/05/24 08:02 Resp 18 03/05/24 08:02 BP 132/76 03/05/24 07:32 Pulse Ox 94 03/05/24 07:32 O2 Del Method High Flow Nasal C annula 03/05/24 07:32 O2 Flow Rate 50 03/05/24 07:32 FiO2 75 03/05/24 07:32 BMI result Body Mass Index 26.6 Objective Data Active Medications Albuterol/Ipratropium (Albuterol/Iprat 2.5/0.5mg 3 Ml Ampul.Neb) 3 ml INHALE Q6H PRN PRN Reason: Shortness of breaths Last Admin: 03/04/24 11:26 Dose: 3 ml Documented By: FABIANA Bictegravir/Emtricitabine/Tenofovir (Bictegrav/Emtricit/Tenofov Ala Tablet) 1 tab PO DAILY [facility] Last Admin: 03/05/24 09:04 Dose: Not Given Documented By: ARIELLA Non-Admin Reason: Physician Held Med Bisacodyl (Bisacodyl 10 Mg Supp.Rect) 10 mg OK DAILY PRN PRN Reason: Constipation Buprenorphine/Naloxone (Buprenorphine/Naloxone 8/2 Mg Film) 1 film SUBLINGUAL TID [facility] Last Admin: 03/05/24 09:04 Dose: Not Given Documented By: ARIELLA Non-Admin Reason: Physician Held Med Bupropion HCl (Bupropion Hcl Xl 150 Mg Tab.Er.24h) 150 mg PO BID@0900,1500 [facility] Last Admin: 03/04/24 16:34 Dose: 150 mg Documented By: KARYN Buspirone HCl (Buspirone Hcl 10 Mg Tablet) 10 mg PO BID [facility] Last Admin: 03/04/24 22:03 Dose: 10 mg Documented By: RIOS Clopidogrel Bisulfate (Clopidogrel Bisulfate 75 Mg Tablet) 75 mg PO DAILY [facility] Last Admin: 03/04/24 07:59 Dose: 75 mg Documented By: JUNE Docusate Sodium (Docusate Sodium 100 Mg Capsule) 100 mg PO BID [facility] Last Admin: 03/04/24 22:03 Dose: 100 mg Documented By: RIOS Fluticasone/Vilanterol (Fluticasone/Vilanterol 100/25 Blst.W.Dev) 1 puff INHALE RDAILY [facility] Last Admin: 03/05/24 08:02 Dose: 1 puff Documented By: FABIANA Folic Acid (Folic Acid 1 Mg Tablet) 1 mg PO DAILY [facility] Last Admin: 03/05/24 09:04 Dose: Not Given Documented By: ARIELLA Non-Admin Reason: Physician Held Med Gabapentin (Gabapentin 300 Mg Capsule) 300 mg PO TID [facility] Last Admin: 03/04/24 22:07 Dose: 300 mg Documented By: RIOS Glucose (Glucose Gel 15 Gm Gel..Gram.) 15 gm PO Q15M PRN; Protocol PRN Reason: per Hypoglycemia Standing Ord. Thiamine HCl 200 mg/ Sodium (Chloride) 102 mls @ 204 mls/hr IV Q8H [facility] Last Infusion: 03/05/24 09:02 Dose: Infused Documented By: ARIELLA Dextrose (D10) 250 mls @ 750 mls/hr IV Q15M PRN; Protocol PRN Reason: per Hypoglycemia Standing Ord. Piperacillin Sod/Tazobactam (Sod 3.375 gm/ Sodium Chloride) 50 mls @ 100 mls/hr IV Q8H [facility] Last Infusion: 03/05/24 09:02 Dose: Infused Documented By: ARIELLA Potassium Chloride/Dextrose/Sod Cl (Kcl 40 Meq In 5% Dex/0.9% Sod) 40 meq in 1,000 mls @ 100 mls/hr IVCONT .Q10H [facility] Last Admin: 03/05/24 05:48 Dose: 100 mls/hr Documented By: RIOS Albumin Human (Kedbumin 25 %) 100 mls @ 100 mls/hr IV Q6H [facility] Stop: 03/05/24 23:44 Last Infusion: 03/05/24 06:57 Dose: Infused Documented By: ARIELLA Vancomycin HCl 500 mg/ Sodium (Chloride) 110 mls @ 110 mls/hr IV Q24H [facility] Insulin Human Lispro (Insulin Lispro 100 Unit/Ml 3 Ml Vial) 0 unit SUBCUT Q6H [facility]; Protocol Last Admin: 03/05/24 07:51 Dose: Not Given Documented By: ARIELLA Non-Admin Reason: [id number] Lactulose (Lactulose 20 Gm/30 Ml Solution) 30 gm PO TID [facility] Last Admin: 03/04/24 20:44 Dose: 30 gm Documented By: RIOS Ondansetron HCl (Ondansetron Hcl 4 Mg/2 Ml Vial) 4 mg IVPUSH Q6H PRN PRN Reason: Nausea and Vomiting Last Admin: 03/04/24 20:59 Dose: 4 mg Documented By: RIOS Oxycodone HCl (Oxycodone Hcl Immed Release 5 Mg Tablet) 5 mg PO Q4H PRN PRN Reason: Pain, Severe (Pain Scale 7-10) Last Admin: 03/04/24 22:55 Dose: 5 mg Documented By: RIOS Pantoprazole Sodium (Pantoprazole Sodium 40 Mg/10 Ml Vial) 40 mg IVPUSH BID@0630,1630 [facility] Last Admin: 03/05/24 05:49 Dose: 40 mg Documented By: RIOS Pharmacy Consult (Consult Rx Vancomycin Dosing) 1 each MISCELLANE DAILY PRN PRN Reason: Consult order Polyethylene Glycol (Polyethylene Glycol 3350 17 Gm Powd.Pack) 17 gm PO DAILY PRN PRN Reason: Constipation Last Admin: 03/02/24 13:32 Dose: 17 gm Documented By: ANIYA Quetiapine Fumarate (Quetiapine Fumarate 200 Mg Tablet) 200 mg PO BEDTIME [facility] Last Admin: 03/04/24 22:06 Dose: 200 mg Documented By: RIOS Quetiapine Fumarate (Quetiapine Fumarate 50 Mg Tablet) 50 mg PO BEDTIME [facility] Last Admin: 03/04/24 22:04 Dose: 50 mg Documented By: RIOS Rifaximin (Rifaximin 550 Mg Tablet) 550 mg PO BID [facility] Last Admin: 03/04/24 22:07 Dose: 550 mg Documented By: RIOS Sodium Chloride (0.9 % Sodium Chloride Flush 3 Ml Syringe) 3 ml IVFLUSH QSHIFT [facility] Last Admin: 03/05/24 08:09 Dose: 3 ml Documented By: ARIELLA Labs 03/05/24 04:54 03/05/24 10:18 Labs: Laboratory Results - last 24 hr 03/02/24 03/04/24 03/04/24 05:55 11:20 16:03 MCV MCH MCHC RDW Plt Count MPV Immature Gran % (Auto) Neut % (Auto) Lymph % (Auto) Trinity % (Auto) Eos % (Auto) Baso % (Auto) Lymph # (Auto) Trinity # (Auto) Eos # (Auto) Baso # (Auto) Abs Immat Gran (auto) Absolute Neuts (auto) Absolute Nucleated RBC Nucleated RBC % (auto) Smear Tech's Comments O2 Saturation ABG pH at Pt Temp ABG pCO2 at Pt Temp ABG pO2 at Pt Temp ABG HCO3 ABG Base Excess (Actual) Anion Gap Estim Creat Clear Calc Estimated GFR POC Glucose 230 H 193 H Random Glucose Lactic Acid Calcium Magnesium Total Bilirubin Direct Bilirubin AST ALT Alkaline Phosphatase B-Natriuretic Peptide Total Protein Albumin Gastric Occult Blood Random Vancomycin Lymphocyte Subset Cmmnt TNP Blood Type Antibody Screen 03/04/24 03/04/24 03/04/24 20:09 21:23 21:37 MCV 98.2 H MCH 34.2 H MCHC 34.9 RDW 16.1 H Plt Count 257 MPV 11.1 Immature Gran % (Auto) 1.9 H Neut % (Auto) 78.6 H Lymph % (Auto) 9.1 L Trinity % (Auto) 9.3 Eos % (Auto) 0.6 Baso % (Auto) 0.5 Lymph # (Auto) 2.4 Trinity # (Auto) 2.5 H Eos # (Auto) 0.2 Baso # (Auto) 0.1 Abs Immat Gran (auto) 0.51 H Absolute Neuts (auto) 20.9 H Absolute Nucleated RBC 0.000 Nucleated RBC % (auto) 0.0 Smear Tech's Comments VERIFIED O2 Saturation 89.0 ABG pH at Pt Temp 7.46 H ABG pCO2 at Pt Temp 32 ABG pO2 at Pt Temp 64 L ABG HCO3 23 ABG Base Excess (Actual) 0.6 Anion Gap 17 Estim Creat Clear Calc 94.0 Estimated GFR > 60 POC Glucose 131 H Random Glucose 167 H Lactic Acid 2.0 Calcium 9.0 Magnesium 2.1 Total Bilirubin 14.7 H Direct Bilirubin AST 55 H ALT 32 Alkaline Phosphatase 283 H B-Natriuretic Peptide 53 Total Protein 8.3 H Albumin 3.1 L Gastric Occult Blood Random Vancomycin Lymphocyte Subset Cmmnt Blood Type Antibody Screen 03/05/24 03/05/24 03/05/24 04:20 04:54 06:25 MCV 98.2 H MCH 34.6 H MCHC 35.2 RDW 16.2 H Plt Count 256 MPV 11.2 Immature Gran % (Auto) Neut % (Auto) Lymph % (Auto) Trinity % (Auto) Eos % (Auto) Baso % (Auto) Lymph # (Auto) Trinity # (Auto) Eos # (Auto) Baso # (Auto) Abs Immat Gran (auto) Absolute Neuts (auto) Absolute Nucleated RBC 0.000 Nucleated RBC % (auto) 0.0 Smear Tech's Comments O2 Saturation ABG pH at Pt Temp ABG pCO2 at Pt Temp ABG pO2 at Pt Temp ABG HCO3 ABG Base Excess (Actual) Anion Gap 17 Estim Creat Clear Calc 102.7 Estimated GFR > 60 POC Glucose 200 H Random Glucose 216 H Lactic Acid Calcium 9.0 Magnesium 2.1 Total Bilirubin 15.4 H Direct Bilirubin 11.1 H AST 65 H ALT 33 Alkaline Phosphatase 292 H B-Natriuretic Peptide Total Protein 8.2 H Albumin 2.9 L Gastric Occult Blood POSITIVE Random Vancomycin Lymphocyte Subset Cmmnt Blood Type Antibody Screen 03/05/24 03/05/24 06:53 07:31 MCV MCH MCHC RDW Plt Count MPV Immature Gran % (Auto) Neut % (Auto) Lymph % (Auto) Trinity % (Auto) Eos % (Auto) Baso % (Auto) Lymph # (Auto) Trinity # (Auto) Eos # (Auto) Baso # (Auto) Abs Immat Gran (auto) Absolute Neuts (auto) Absolute Nucleated RBC Nucleated RBC % (auto) Smear Tech's Comments O2 Saturation ABG pH at Pt Temp ABG pCO2 at Pt Temp ABG pO2 at Pt Temp ABG HCO3 ABG Base Excess (Actual) Anion Gap Estim Creat Clear Calc Estimated GFR POC Glucose 189 H Random Glucose Lactic Acid Calcium Magnesium Total Bilirubin Direct Bilirubin AST ALT Alkaline Phosphatase B-Natriuretic Peptide Total Protein Albumin Gastric Occult Blood Random Vancomycin 32.8 H* Lymphocyte Subset Cmmnt Blood Type O Positive Antibody Screen NEGATIVE Assessment and Plan (1) Decompensation of cirrhosis of liver: Status: Acute Plan This is a 59-year-old homeless male with history of opiate dependence on Suboxone, HIV on Biktarvy, chronic hepatitis-C, depression, PTSD, liver cirrhosis, COPD who was brought to the emergency department for evaluation of encephalopathy found to have elevated ammonia levels Acute Toxic metabolic encephalopathy Multifactorial due to hepatic encephalopathy in the setting of liver cirrhosis and bacteremia continue rifaximin and lactulose worsening bilirubin, 15.4 leukocytosis secondary to Aspiration pneumonia no fever chest ct showing consolidation continue vancomycin and zosyn Acute hypoxic respiratory failure secondary to aspiration pna high flow oxygen VBG 7.46/32/64/23 SBO, acute NGT placed 3 liters brown abdominal contents drained overnight on LIS , may give lactulose and clamp for an hour and restart gen surg following>ok to clamp for meds but restart Alcoholic hepatitis worsening bilirubin GI input appreciated> no steroids for now in light of bacteremia Staph aureus bacteremia 2/2 blood cultures growing Gram-positive cocci Echocardiogram without vegetations iv vancomyin likely 4 weeks of abx Constipation continue bowel regime s/p enema Acute lactic acidosis Likely secondary to decreased clearance due to underlying liver disease and not due to sepsis History of alcohol abuse No evidence of alcohol withdrawal at this time alcohol level negative in the emergency department CIWA remains low, no signs of etoh withdrawal at this time; if patient becomes symptomatic we will treat with phenobarbital protocol History of opiate abuse Denies the use of intravenous drugs reports using pills only Continue baseline Suboxone Addiction medicine consult pending as above Tobacco dependence Smoking cessation advised NRT Thrombocytopenia Appears chronic. Likely related to underlying liver disease Liver cirrhosis Has history of chronic hepatitis-C as well as alcohol abuse LFTs chronically elevated Normocytic anemia Likely due to chronic alcohol use Above transfusion threshold Mood Resume baseline medications bupropion, buspirone, seroquel HIV continue biktarvy outpatient follow up DVT prophylaxis SCD boots Healthcare proxy - patient reports he would want his brother Garfield to be his healthcare proxy Disposition-patient homeless, TBD Patient requires ongoing inpatient stay for management of abdominal pain, bacteremia requiring IV antibiotics Quality Stroke Does the patient have a stroke diagnosis?: No VTE Prior VTE?: No VTE Risk Level:: Medical - moderate - high VTE Device Contraindication: N/A - Device Ordered VTE Drug Contraindication: Treatment Not Indicated
[2024-03-05 10:32] LABS: Ammonia 94 umol/L (13-55)
[2024-03-05 10:41] LABS: Alanine Aminotransferase 28 U/L (0-40); Albumin Level 2.8 g/dL (3.5-5.0); Alkaline Phosphatase 243 U/L (39-117); Anion Gap 13 (12-20); Aspartate Amino Transferase 47 U/L (5-37); Bilirubin Total 13.1 mg/dL (0.0-1.0); Blood Urea Nitrogen 42 mg/dL (9-16); Calcium 8.2 mg/dL (8.4-10.2); Carbon Dioxide 22 mmol/L (22-29); Chloride 105 mmol/L (96-108); Creatinine Clr Calc Pharmacy 97.1; Estimated Glomerular Filt Rate > 60; Glucose Random 222 mg/dL (60-115); Potassium 4.3 mmol/L (3.3-5.1); Sodium 136 mmol/L (135-145); Total Protein 7.1 g/dL (6.5-8.0)
[2024-03-05 11:49] LABS: Glucose, Whole Blood 197 mg/dL (60-115)
[2024-03-05] MEDS: Insulin Lispro 100 UNIT/ML 3 ML VIAL SUBCUT (12:26)
[2024-03-05] MEDS: Buprenorphine/Naloxone 8/2 mg FILM 1 FILM SUBLINGUAL ×2 (15:29→23:42)
[2024-03-05 16:04] LABS: Glucose, Whole Blood 185 mg/dL (60-115)
--- NOTE | 2024-03-05 17:02 | P.PNGI_ITS ---
Subjective Subjective Date of Service: 03/05/24 Interval History: Seen at bedside. HFNC in place. Pt lethargic but rouses to verbal cues. Per bedside RN resp and mental status much improved since the morning. Had discussed verdin-scan with hospitalist on 03/04 for rising white count which has been performed, report pending. Critical Care Time (minutes): 0 Physical Exam 2 Vital Signs: Vital Signs: Selected Entries 03/05/24 15:31 Temperature 97.1 F Pulse Rate 80 Respiratory Rate 20 Blood Pressure 130/76 Pulse Oximetry 95 Oxygen Delivery Me thod High Flow Nasal Ca nnula Lethargic, sick appearing grossly jaundiced abd soft, mild wincing to palpation, no guarding rectal exam deferred - per RN BMs were flanagan/brown Objective Data Labs 03/05/24 04:54 03/06/24 06:46 Labs: Laboratory Results - last 24 hr 03/02/24 03/03/24 03/04/24 05:55 20:26 06:53 WBC 23.0 H RBC 4.24 L Hgb 14.8 Hct 42.5 MCV 100.2 H MCH 34.9 H MCHC 34.8 RDW 16.0 Plt Count 223 D MPV 11.2 Absolute Nucleated RBC 0.000 Nucleated RBC % (auto) 0.0 PT 16.2 H INR 1.3 H Sodium 140 Potassium 4.6 Chloride 102 Carbon Dioxide 25 Anion Gap 18 BUN 33 H Creatinine 0.92 Estim Creat Clear Calc 96.0 Estimated GFR > 60 POC Glucose 189 H Random Glucose 150 H Calcium 9.0 D Total Bilirubin 14.0 H AST 49 H ALT 28 Alkaline Phosphatase 248 H Total Protein 7.7 Albumin 2.8 L Random Vancomycin 16.7 Total Lymphocytes 1580 % CD3 Cells 55 L Absolute CD3 Count 868 % CD4 Cells 17 L Absolute CD4 Count 270 L CD4/CD8 Ratio 0.44 L % CD8 Cells 39 Absolute CD8 Count 612 03/04/24 03/04/24 03/04/24 07:22 11:20 16:03 WBC RBC Hgb Hct MCV MCH MCHC RDW Plt Count MPV Absolute Nucleated RBC Nucleated RBC % (auto) PT INR Sodium Potassium Chloride Carbon Dioxide Anion Gap BUN Creatinine Estim Creat Clear Calc Estimated GFR POC Glucose 153 H 230 H 193 H Random Glucose Calcium Total Bilirubin AST ALT Alkaline Phosphatase Total Protein Albumin Random Vancomycin Total Lymphocytes % CD3 Cells Absolute CD3 Count % CD4 Cells Absolute CD4 Count CD4/CD8 Ratio % CD8 Cells Absolute CD8 Count Microbiology Microbiology Results: Microbiology 03/01/24 10:57 Blood - Venous Blood Culture - Preliminary No growth after 48 hours. 03/01/24 10:57 Blood - Venous Blood Culture - Preliminary No growth after 48 hours. 02/29/24 11:34 Blood - Venous Blood Culture - Final Staphylococcus aureus 02/29/24 11:39 Blood - Venous Blood Culture - Final Staphylococcus aureus Procedures Date of Service Date of Service: 03/06/24 Progress Note: A&P Assessment and plan (1) Alcoholic hepatitis: Status: Acute (2) Bacteremia: Status: Acute (3) Acute hepatic encephalopathy: Status: Acute (4) Hypoxia: Status: Acute (5) AMS (altered mental status): Status: Acute (6) Decompensation of cirrhosis of liver: Status: Acute Plan Encephalopathy multifactorial 2/2 hepatic and metabolic. Improved since this AM per collateral information from RN. Management of sepsis/staph bacteremia as per primary team. Bilirubin also down from 15 to 13 today. Likely peaked yest given timing of etOH use. Kidney function stable, though based on the urine output suspect may see a rise in Cr tmrw. Plan: - Follow up on CT reports - Cont to hold off steroids - Clinically volume down, would recommend fluids and avoid further diuresis - Start enteral nutrition - pt has NGT. Can start with trickle feeds and advance as tolerated - Cont to monitor meld labs. If bili plateaus or rises again, low threshold to contact [facility] for ?transfer Time Spent With Patient Time: Total time managing care of this patient today ____ minutes. Quality Stroke Does the patient have a stroke diagnosis?: No VTE Prior VTE?: No VTE Risk Level:: Medical - moderate - high VTE Device Contraindication: N/A - Device Ordered VTE Drug Contraindication: Treatment Not Indicated
[2024-03-05 17:27] LABS: Glucose, Whole Blood 131 mg/dL (60-115)
[2024-03-05 22:01] LABS: Glucose, Whole Blood 97 mg/dL (60-115)
[2024-03-05] MEDS: Lactulose 20 GM/30 ML SOLUTION 30 GM PO (23:14)
[2024-03-06] VITALS (11 sets, daily range): BP systolic 135–145; BP diastolic 67–85; PULSE 72–95; RESP 16–22; TEMP 36.3–36.7; O2SAT 92–98
[2024-03-06 00:08] LABS: Glucose, Whole Blood 153 mg/dL (60-115)
[2024-03-06] MEDS: Piperacillin Sodium/Tazobactam 3.375 GM in 0.9 % Sodium Chloride 50 ML IV ×3 (01:08→14:37)
[2024-03-06] MEDS: Insulin Lispro 100 UNIT/ML 3 ML VIAL SUBCUT (01:17)
[2024-03-06] MEDS: Thiamine HCL 200 MG in 0.9 % Sodium Chloride 100 ML 204 MG IV ×3 (01:18→16:41)
[2024-03-06] MEDS: KCl 40 mEq in 5% Dex/0.9% Sod 40 MEQ/1,000 ML IV.SOLN 100 MEQ IVCONT ×2 (02:47→18:04)
[2024-03-06 06:14] LABS: Glucose, Whole Blood 134 mg/dL (60-115)
[2024-03-06] MEDS: Pantoprazole Sodium 40 MG/10 ML VIAL IVPUSH ×2 (06:36→16:41)
[2024-03-06 07:11] LABS: Ammonia 79 umol/L (13-55)
[2024-03-06 07:19] LABS: Vancomycin Random 10.6 mcg/mL (15-20)
[2024-03-06] MEDS: Bictegrav/Emtricit/Tenofov Ala TABLET 1 TAB PO (07:22)
[2024-03-06] MEDS: Lactulose 20 GM/30 ML SOLUTION 30 GM PO ×2 (07:22→14:36)
[2024-03-06] MEDS: Folic Acid 1 MG TABLET PO (07:22)
[2024-03-06] MEDS: Buprenorphine/Naloxone 8/2 mg FILM 1 FILM SUBLINGUAL ×3 (07:22→21:52)
[2024-03-06] MEDS: 0.9 % Sodium Chloride Flush 3 ML SYRINGE IVFLUSH ×3 (07:23→22:03)
[2024-03-06 07:29] LABS: Alanine Aminotransferase 21 U/L (0-40); Albumin Level 3.2 g/dL (3.5-5.0); Alkaline Phosphatase 185 U/L (39-117); Anion Gap 10 (12-20); Aspartate Amino Transferase 35 U/L (5-37); Bilirubin Direct 7.4 mg/dL (0.0-0.5); Blood Urea Nitrogen 32 mg/dL (9-16); Carbon Dioxide 21 mmol/L (22-29); Chloride 116 mmol/L (96-108); Creatinine Clr Calc Pharmacy 91.1; Estimated Glomerular Filt Rate > 60; Glucose Random 146 mg/dL (60-115); Sodium 143 mmol/L (135-145); Total Protein 6.3 g/dL (6.5-8.0)
[2024-03-06] MEDS: Fluticasone/Vilanterol 100/25 BLST.W.DEV 1 PUFF INHALE (07:32)
--- NOTE | 2024-03-06 07:40 | HE.PHANOTE ---
Re: Jalen Fluctuating renal function. Trough returned at 10.6. Start 750mg Q12H, with predicted AUC 474, predicted trough 15.9. Next trough to be drawn 03/07 @ 1800.
[2024-03-06] MEDS: vancomycin HCL 750 MG in 0.9 % Sodium Chloride 250 ML 265 MG IV ×2 (08:16→21:52)
--- NOTE | 2024-03-06 09:38 | HO.PM.IMPN ---
Subjective Subjective Date of Service: 03/06/24 Interval History: SEEN IN FOLLOW-UP FOR ALCOHOLIC HEPATITIS, ASPIRATION PNEUMONIA, HYPOXIA, SBO/ILEUS, BACTEREMIA, HEPATIC ENCEPHALOPATHY INTERVAL HISTORY: REQUESTING ICE CHIPS. NG TUBE IN PLACE DRAINING YELLOW/BROWN BILE. no ABD PAIN, NAUSEA, VOMITING. 3-4 LARGE BMS SINCE LAST NIGHT. ORIENTED X4 Review of Systems Review of Systems: Yes all other systems are reviewed and are negative Physical Exam Vital Signs: Vital Signs: Last Vital Signs Temp 97.4 F 03/06/24 08:00 Pulse 80 03/06/24 08:00 Resp 20 03/06/24 08:00 BP 139/73 03/06/24 08:00 Pulse Ox 97 03/06/24 08:00 O2 Del Method High Flow Nasal C annula 03/06/24 08:00 O2 Flow Rate 50 03/06/24 08:00 FiO2 70 03/06/24 08:00 BMI result Body Mass Index 26.6 Constitutional - Awake and Alert, No apparent distress Eyes - PERRLA, EOMI . Scleral icterus Cardiovascular - S1S2, RRR, No edema Respiratory - Normal lung expansion, Normal respiratory effort, No respiratory distress, CTA bilaterally Gastrointestinal - softly distended, NT ; +BS; No rebound or guarding> NGT in place with yellow/brown bilious output. No coffee-ground Extremities - no calf tenderness bilaterally, no swelling Skin - Warm/Dry. Slight jaundice Neurological - Alert & oriented x3 Psychological - Appropriate affect Objective Data Active Medications Albuterol/Ipratropium (Albuterol/Iprat 2.5/0.5mg 3 Ml Ampul.Neb) 3 ml INHALE Q6H PRN PRN Reason: Shortness of breaths Last Admin: 03/04/24 11:26 Dose: 3 ml Documented By: FABIANA Bictegravir/Emtricitabine/Tenofovir (Bictegrav/Emtricit/Tenofov Ala Tablet) 1 tab PO DAILY [facility] Last Admin: 03/06/24 07:22 Dose: 1 tab Documented By: ARIELLA Bisacodyl (Bisacodyl 10 Mg Supp.Rect) 10 mg [place] DAILY PRN PRN Reason: Constipation Buprenorphine/Naloxone (Buprenorphine/Naloxone 8/2 Mg Film) 1 film SUBLINGUAL TID [facility] Last Admin: 03/06/24 07:22 Dose: 1 film Documented By: ARIELLA Bupropion HCl (Bupropion Hcl Xl 150 Mg Tab.Er.24h) 150 mg PO BID@0900,1500 [facility] Last Admin: 03/04/24 16:34 Dose: 150 mg Documented By: KARYN Buspirone HCl (Buspirone Hcl 10 Mg Tablet) 10 mg PO BID [facility] Last Admin: 03/04/24 22:03 Dose: 10 mg Documented By: RIOS Clopidogrel Bisulfate (Clopidogrel Bisulfate 75 Mg Tablet) 75 mg PO DAILY [facility] Last Admin: 03/04/24 07:59 Dose: 75 mg Documented By: JUNE Docusate Sodium (Docusate Sodium 100 Mg Capsule) 100 mg PO BID [facility] Last Admin: 03/04/24 22:03 Dose: 100 mg Documented By: RIOS Fluticasone/Vilanterol (Fluticasone/Vilanterol 100/25 Blst.W.Dev) 1 puff INHALE RDAILY [facility] Last Admin: 03/06/24 07:32 Dose: 1 puff Documented By: SHAMIKA Folic Acid (Folic Acid 1 Mg Tablet) 1 mg PO DAILY [facility] Last Admin: 03/06/24 07:22 Dose: 1 mg Documented By: ARIELLA Gabapentin (Gabapentin 300 Mg Capsule) 300 mg PO TID [facility] Last Admin: 03/04/24 22:07 Dose: 300 mg Documented By: RIOS Glucose (Glucose Gel 15 Gm Gel..Gram.) 15 gm PO Q15M PRN; Protocol PRN Reason: per Hypoglycemia Standing Ord. Thiamine HCl 200 mg/ Sodium (Chloride) 102 mls @ 204 mls/hr IV Q8H [facility] Last Infusion: 03/06/24 07:52 Dose: Infused Documented By: ARIELLA Dextrose (D10) 250 mls @ 750 mls/hr IV Q15M PRN; Protocol PRN Reason: per Hypoglycemia Standing Ord. Piperacillin Sod/Tazobactam (Sod 3.375 gm/ Sodium Chloride) 50 mls @ 100 mls/hr IV Q8H [facility] Last Infusion: 03/06/24 07:53 Dose: Infused Documented By: ARIELLA Potassium Chloride/Dextrose/Sod Cl (Kcl 40 Meq In 5% Dex/0.9% Sod) 40 meq in 1,000 mls @ 100 mls/hr IVCONT .Q10H [facility] Last Admin: 03/06/24 02:47 Dose: 100 mls/hr Documented By: RIOS Vancomycin HCl 750 mg/ Sodium (Chloride) 265 mls @ 265 mls/hr IV Q12H [facility] Last Infusion: 03/06/24 09:16 Dose: Infused Documented By: ARIELLA Insulin Human Lispro (Insulin Lispro 100 Unit/Ml 3 Ml Vial) 0 unit SUBCUT Q6H [facility]; Protocol Last Admin: 03/06/24 06:14 Dose: Not Given Documented By: RIOS Non-Admin Reason: No Insulin Coverage Lactulose (Lactulose 20 Gm/30 Ml Solution) 30 gm PO TID [facility] Last Admin: 03/06/24 07:22 Dose: 30 gm Documented By: ARIELLA Ondansetron HCl (Ondansetron Hcl 4 Mg/2 Ml Vial) 4 mg IVPUSH Q6H PRN PRN Reason: Nausea and Vomiting Last Admin: 03/04/24 20:59 Dose: 4 mg Documented By: RIOS Oxycodone HCl (Oxycodone Hcl Immed Release 5 Mg Tablet) 5 mg PO Q4H PRN PRN Reason: Pain, Severe (Pain Scale 7-10) Last Admin: 03/04/24 22:55 Dose: 5 mg Documented By: RIOS Pantoprazole Sodium (Pantoprazole Sodium 40 Mg/10 Ml Vial) 40 mg IVPUSH BID@0630,1630 [facility] Last Admin: 03/06/24 06:36 Dose: 40 mg Documented By: RIOS Pharmacy Consult (Consult Rx Vancomycin Dosing) 1 each MISCELLANE DAILY PRN PRN Reason: Consult order Polyethylene Glycol (Polyethylene Glycol 3350 17 Gm Powd.Pack) 17 gm PO DAILY PRN PRN Reason: Constipation Last Admin: 03/02/24 13:32 Dose: 17 gm Documented By: ANIYA Quetiapine Fumarate (Quetiapine Fumarate 200 Mg Tablet) 200 mg PO BEDTIME [facility] Last Admin: 03/04/24 22:06 Dose: 200 mg Documented By: RIOS Quetiapine Fumarate (Quetiapine Fumarate 50 Mg Tablet) 50 mg PO BEDTIME [facility] Last Admin: 03/04/24 22:04 Dose: 50 mg Documented By: RIOS Rifaximin (Rifaximin 550 Mg Tablet) 550 mg PO BID [facility] Last Admin: 03/04/24 22:07 Dose: 550 mg Documented By: RIOS Sodium Chloride (0.9 % Sodium Chloride Flush 3 Ml Syringe) 3 ml IVFLUSH QSHIFT [facility] Last Admin: 03/06/24 07:23 Dose: 3 ml Documented By: ARIELLA Labs 03/05/24 04:54 03/06/24 06:46 Labs: Laboratory Results - last 24 hr 03/05/24 03/05/24 03/05/24 10:18 10:18 11:30 Anion Gap 13 Estim Creat Clear Calc 97.1 Estimated GFR > 60 POC Glucose 197 H Random Glucose 222 H Calcium 8.2 L D Total Bilirubin 13.1 H Direct Bilirubin AST 47 H ALT 28 Alkaline Phosphatase 243 H Ammonia 94 H Cancelled Total Protein 7.1 Albumin 2.8 L Random Vancomycin 03/05/24 03/05/24 03/05/24 15:30 17:20 18:08 Anion Gap Estim Creat Clear Calc Estimated GFR POC Glucose 185 H 131 H Random Glucose Calcium Total Bilirubin Direct Bilirubin AST ALT Alkaline Phosphatase Ammonia Total Protein Albumin Random Vancomycin 19.0 03/05/24 03/06/24 03/06/24 21:56 00:03 06:10 Anion Gap Estim Creat Clear Calc Estimated GFR POC Glucose 97 153 H 134 H Random Glucose Calcium Total Bilirubin Direct Bilirubin AST ALT Alkaline Phosphatase Ammonia Total Protein Albumin Random Vancomycin 03/06/24 06:46 Anion Gap 10 L Estim Creat Clear Calc 91.1 Estimated GFR > 60 POC Glucose Random Glucose 146 H Calcium 8.0 L Total Bilirubin 11.0 H Direct Bilirubin 7.4 H AST 35 ALT 21 Alkaline Phosphatase 185 H Ammonia 79 H Total Protein 6.3 L Albumin 3.2 L Random Vancomycin 10.6 L Assessment and Plan (1) Decompensation of cirrhosis of liver: Status: Acute Plan This is a 59-year-old homeless male with history of opiate dependence on Suboxone, HIV on Biktarvy, chronic hepatitis-C, depression, PTSD, liver cirrhosis, COPD who was brought to the emergency department for evaluation of encephalopathy found to have elevated ammonia levels Acute Toxic metabolic encephalopathy - improving Multifactorial due to hepatic encephalopathy in the setting of liver cirrhosis and bacteremia continue rifaximin and lactulose ammonia trending down, mentation improving. Decrease lactulose to 20g TID to achieve 2-3 loose stools daily leukocytosis secondary to Aspiration pneumonia no fever chest ct showing consolidation continue vancomycin and zosyn Acute hypoxic respiratory failure secondary to aspiration pna high flow oxygen VBG 7.46/32/64/23 SBO, acute NGT placed -4.3 liters brown abdominal contents drained, continues draining on LIS , may give lactulose and clamp for an hour and restart gen surg following>ok to clamp for meds but restart appreciate surgery input NPO- give 500ml IV NS bolus, then NS @100 ml/hr Alcoholic hepatitis-bili trending down GI input appreciated> no steroids for now in light of bacteremia Staph aureus bacteremia 2/2 blood cultures growing staph aureus, sensitivities pending. Midline vs picc line pending cultures Echocardiogram without vegetations iv vancomyin likely 4 weeks of abx Constipation hold bowel regimen given lactulose use s/p enema Acute lactic acidosis Likely secondary to decreased clearance due to underlying liver disease and not due to sepsis History of alcohol abuse No evidence of alcohol withdrawal at this time alcohol level negative in the emergency department CIWA remains low, no signs of etoh withdrawal at this time; if patient becomes symptomatic we will treat with phenobarbital protocol History of opiate abuse Denies the use of intravenous drugs reports using pills only Continue baseline Suboxone Addiction medicine consult- plan to return to [facility] following STR Tobacco dependence Smoking cessation advised NRT Thrombocytopenia Appears chronic. Likely related to underlying liver disease Liver cirrhosis Has history of chronic hepatitis-C as well as alcohol abuse LFTs chronically elevated Normocytic anemia Likely due to chronic alcohol use Above transfusion threshold Mood Resume baseline medications bupropion, buspirone, seroquel HIV continue biktarvy outpatient follow up DVT prophylaxis SCD boots Healthcare proxy - patient reports he would want his brother Garfield to be his healthcare proxy Disposition-patient homeless, TBD Patient requires ongoing inpatient stay for management of abdominal pain, bacteremia requiring IV antibiotics Quality Stroke Does the patient have a stroke diagnosis?: No VTE Prior VTE?: No VTE Risk Level:: Medical - moderate - high VTE Device Contraindication: N/A - Device Ordered VTE Drug Contraindication: Treatment Not Indicated
[2024-03-06 11:50] LABS: Glucose, Whole Blood 119 mg/dL (60-115)
--- NOTE | 2024-03-06 16:25 | P.PNGS_ITS ---
Subjective Subjective Date of Service: 03/06/24 Interval history: he says abd feels better ,uch less distended says he has flatus Physical Exam 2 Vital Signs: Vital Signs: Last Vital Signs Temp 98.1 F 03/06/24 15:51 Pulse 83 03/06/24 15:51 Resp 18 03/06/24 15:51 BP 145/72 H 03/06/24 15:51 Pulse Ox 92 03/06/24 15:51 O2 Del Method Nasal Cannula 03/06/24 15:51 O2 Flow Rate 4 03/06/24 15:51 FiO2 45 03/06/24 11:35 BMI result Body Mass Index 26.6 Const: General: comfortable and no acute distress O rientation/consciousness: patient oriented x3 Resp: Effort & Inspection: normal respiratory effort GI: Other: mildly distended Palpation (GI): Soft to palpation, not firm and nontender Neuro: General: patient oriented x3 Objective Data Active Medications Albuterol/Ipratropium (Albuterol/Iprat 2.5/0.5mg 3 Ml Ampul.Neb) 3 ml INHALE Q6H PRN PRN Reason: Shortness of breaths Last Admin: 03/04/24 11:26 Dose: 3 ml Documented By: FABIANA Bictegravir/Emtricitabine/Tenofovir (Bictegrav/Emtricit/Tenofov Ala Tablet) 1 tab PO DAILY [facility] Last Admin: 03/06/24 07:22 Dose: 1 tab Documented By: ARIELLA Bisacodyl (Bisacodyl 10 Mg Supp.Rect) 10 mg [place] DAILY PRN PRN Reason: Constipation Buprenorphine/Naloxone (Buprenorphine/Naloxone 8/2 Mg Film) 1 film SUBLINGUAL TID [facility] Last Admin: 03/06/24 14:36 Dose: 1 film Documented By: ARIELLA Bupropion HCl (Bupropion Hcl Xl 150 Mg Tab.Er.24h) 150 mg PO BID@0900,1500 [facility] Last Admin: 03/04/24 16:34 Dose: 150 mg Documented By: KARYN Buspirone HCl (Buspirone Hcl 10 Mg Tablet) 10 mg PO BID [facility] Last Admin: 03/04/24 22:03 Dose: 10 mg Documented By: RIOS Clopidogrel Bisulfate (Clopidogrel Bisulfate 75 Mg Tablet) 75 mg PO DAILY [facility] Last Admin: 03/04/24 07:59 Dose: 75 mg Documented By: JUNE Docusate Sodium (Docusate Sodium 100 Mg Capsule) 100 mg PO BID [facility] Last Admin: 03/04/24 22:03 Dose: 100 mg Documented By: RIOS Fluticasone/Vilanterol (Fluticasone/Vilanterol 100/25 Blst.W.Dev) 1 puff INHALE RDAILY [facility] Last Admin: 03/06/24 07:32 Dose: 1 puff Documented By: SHAMIKA Folic Acid (Folic Acid 1 Mg Tablet) 1 mg PO DAILY [facility] Last Admin: 03/06/24 07:22 Dose: 1 mg Documented By: ARIELLA Gabapentin (Gabapentin 300 Mg Capsule) 300 mg PO TID [facility] Last Admin: 03/04/24 22:07 Dose: 300 mg Documented By: RIOS Glucose (Glucose Gel 15 Gm Gel..Gram.) 15 gm PO Q15M PRN; Protocol PRN Reason: per Hypoglycemia Standing Ord. Thiamine HCl 200 mg/ Sodium (Chloride) 102 mls @ 204 mls/hr IV Q8H [facility] Last Infusion: 03/06/24 07:52 Dose: Infused Documented By: ARIELLA Dextrose (D10) 250 mls @ 750 mls/hr IV Q15M PRN; Protocol PRN Reason: per Hypoglycemia Standing Ord. Piperacillin Sod/Tazobactam (Sod 3.375 gm/ Sodium Chloride) 50 mls @ 100 mls/hr IV Q8H [facility] Last Infusion: 03/06/24 15:07 Dose: Infused Documented By: ARIELLA Potassium Chloride/Dextrose/Sod Cl (Kcl 40 Meq In 5% Dex/0.9% Sod) 40 meq in 1,000 mls @ 100 mls/hr IVCONT .Q10H [facility] Last Admin: 03/06/24 02:47 Dose: 100 mls/hr Documented By: RIOS Vancomycin HCl 750 mg/ Sodium (Chloride) 265 mls @ 265 mls/hr IV Q12H [facility] Last Infusion: 03/06/24 09:16 Dose: Infused Documented By: ARIELLA Sodium Chloride (Ns) 1,000 mls @ 100 mls/hr IVCONT .Q10H [facility] Sodium Chloride (Ns) 500 mls @ 500 mls/hr IV .Q1H [facility] Stop: 03/06/24 16:44 Insulin Human Lispro (Insulin Lispro 100 Unit/Ml 3 Ml Vial) 0 unit SUBCUT Q6H [facility]; Protocol Last Admin: 03/06/24 11:37 Dose: Not Given Documented By: ARIELLA Non-Admin Reason: [id number] Lactulose (Lactulose 20 Gm/30 Ml Solution) 20 gm PO TID [facility] Ondansetron HCl (Ondansetron Hcl 4 Mg/2 Ml Vial) 4 mg IVPUSH Q6H PRN PRN Reason: Nausea and Vomiting Last Admin: 03/04/24 20:59 Dose: 4 mg Documented By: RIOS Oxycodone HCl (Oxycodone Hcl Immed Release 5 Mg Tablet) 5 mg PO Q4H PRN PRN Reason: Pain, Severe (Pain Scale 7-10) Last Admin: 03/04/24 22:55 Dose: 5 mg Documented By: RIOS Pantoprazole Sodium (Pantoprazole Sodium 40 Mg/10 Ml Vial) 40 mg IVPUSH BID@0630,1630 [facility] Last Admin: 03/06/24 06:36 Dose: 40 mg Documented By: RIOS Pharmacy Consult (Consult Rx Vancomycin Dosing) 1 each MISCELLANE DAILY PRN PRN Reason: Consult order Polyethylene Glycol (Polyethylene Glycol 3350 17 Gm Powd.Pack) 17 gm PO DAILY PRN PRN Reason: Constipation Last Admin: 03/02/24 13:32 Dose: 17 gm Documented By: ANIYA Quetiapine Fumarate (Quetiapine Fumarate 200 Mg Tablet) 200 mg PO BEDTIME [facility] Last Admin: 03/04/24 22:06 Dose: 200 mg Documented By: RIOS Quetiapine Fumarate (Quetiapine Fumarate 50 Mg Tablet) 50 mg PO BEDTIME [facility] Last Admin: 03/04/24 22:04 Dose: 50 mg Documented By: RIOS Rifaximin (Rifaximin 550 Mg Tablet) 550 mg PO BID [facility] Last Admin: 03/04/24 22:07 Dose: 550 mg Documented By: RIOS Sodium Chloride (0.9 % Sodium Chloride Flush 3 Ml Syringe) 3 ml IVFLUSH [facility] Last Admin: 03/06/24 14:37 Dose: 3 ml Documented By: ARIELLA Labs 03/05/24 04:54 03/06/24 06:46 Labs: Laboratory Results - last 24 hr 03/05/24 03/05/24 03/05/24 17:20 18:08 21:56 Anion Gap Estim Creat Clear Calc Estimated GFR POC Glucose 131 H 97 Random Glucose Calcium Total Bilirubin Direct Bilirubin AST ALT Alkaline Phosphatase Ammonia Total Protein Albumin Random Vancomycin 19.0 03/06/24 03/06/24 03/06/24 00:03 06:10 06:46 Anion Gap 10 L Estim Creat Clear Calc 91.1 Estimated GFR > 60 POC Glucose 153 H 134 H Random Glucose 146 H Calcium 8.0 L Total Bilirubin 11.0 H Direct Bilirubin 7.4 H AST 35 ALT 21 Alkaline Phosphatase 185 H Ammonia 79 H Total Protein 6.3 L Albumin 3.2 L Random Vancomycin 10.6 L 03/06/24 11:34 Anion Gap Estim Creat Clear Calc Estimated GFR POC Glucose 119 H Random Glucose Calcium Total Bilirubin Direct Bilirubin AST ALT Alkaline Phosphatase Ammonia Total Protein Albumin Random Vancomycin Microbiology Microbiology Results: Microbiology 03/06/24 00:05 Gram Stain - Final Sputum - Expectorated 03/01/24 10:57 Blood Culture - Final Blood - Venous No growth after 5 days. 03/01/24 10:57 Blood Culture - Final Blood - Venous No growth after 5 days. Procedures Date of Service Date of Service: 03/06/24 Progress Note: A&P Assessment and plan (1) Ileus: Status: Acute Assessment and Plan: admitted for etoh hepatitis NGT in place for ileus - output thin,seems to be from water intake abd soft, mildly distended now ileus likely resolving hope to be able to dc NGT tomorrow will follow exam benign Time Spent With Patient Time: Total time managing care of this patient today ____ minutes. Quality Stroke Does the patient have a stroke diagnosis?: No VTE Prior VTE?: No VTE Risk Level:: Medical - moderate - high VTE Device Contraindication: N/A - Device Ordered VTE Drug Contraindication: Treatment Not Indicated
[2024-03-06] MEDS: 0.9 % Sodium Chloride 500 ML IV (16:42)
[2024-03-06 18:13] LABS: Glucose, Whole Blood 133 mg/dL (60-115)
[2024-03-06] MEDS: ondansetron HCL 4 MG/2 ML VIAL IVPUSH (21:51)
[2024-03-06] MEDS: Lactulose 20 GM/30 ML SOLUTION PO (22:03)
[2024-03-07] VITALS (8 sets, daily range): BP systolic 127–168; BP diastolic 71–84; PULSE 68–84; RESP 18–20; TEMP 36.2–36.6; O2SAT 92–98
[2024-03-07] MEDS: Piperacillin Sodium/Tazobactam 3.375 GM in 0.9 % Sodium Chloride 50 ML IV ×3 (01:13→17:02)
[2024-03-07 01:15] LABS: Glucose, Whole Blood 119 mg/dL (60-115)
[2024-03-07] MEDS: Thiamine HCL 200 MG in 0.9 % Sodium Chloride 100 ML 204 MG IV (01:17)
[2024-03-07] MEDS: Pantoprazole Sodium 40 MG/10 ML VIAL IVPUSH ×2 (05:43→17:01)
[2024-03-07 05:47] LABS: Glucose, Whole Blood 127 mg/dL (60-115)
--- NOTE | 2024-03-07 07:41 | MHC.CM.PN ---
[facility] is following; Patient may benefit from a PT Eval but STR appears likely. Patient has a N/G tube,is on Suboxone, and will need 4 weeks of IV ABT via a midline. CM will follow.
[2024-03-07] MEDS: Fluticasone/Vilanterol 100/25 BLST.W.DEV 1 PUFF INHALE (07:45)
[2024-03-07 08:03] LABS: Ammonia 56 umol/L (13-55)
--- NOTE | 2024-03-07 08:29 | PM.PNGS ---
Subjective Subjective Date of Service: 03/08/24 Interval history: Confused likely because of encephalopathy NG tube output seems to be thin and clear Seems to have hallucinations, stating that he is in another room Physical Exam Vital Signs: Vital Signs: Last Vital Signs Temp 97.2 F 03/07/24 04:00 Pulse 84 03/07/24 07:48 Resp 18 03/07/24 07:48 BP 167/84 H 03/07/24 04:00 Pulse Ox 94 03/07/24 04:00 O2 Del Method Nasal Cannula 03/07/24 04:00 O2 Flow Rate 4 03/07/24 04:00 FiO2 45 03/06/24 11:35 BMI result Body Mass Index 26.6 Const: Other: Appears confused, not in distress Eyes: Other: Jaundice Resp: Effort & Inspection: normal respiratory effort GI: Palpation (GI): Soft to palpation, not firm, nontender and no guarding Objective Data Active Medications Albuterol/Ipratropium (Albuterol/Iprat 2.5/0.5mg 3 Ml Ampul.Neb) 3 ml INHALE Q6H PRN PRN Reason: Shortness of breaths Last Admin: 03/04/24 11:26 Dose: 3 ml Documented By: FABIANA Bictegravir/Emtricitabine/Tenofovir (Bictegrav/Emtricit/Tenofov Ala Tablet) 1 tab PO DAILY FORMER[facility], [facility] Last Admin: 03/06/24 07:22 Dose: 1 tab Documented By: ARIELLA Bisacodyl (Bisacodyl 10 Mg Supp.Rect) 10 mg [place] DAILY PRN PRN Reason: Constipation Buprenorphine/Naloxone (Buprenorphine/Naloxone 8/2 Mg Film) 1 film SUBLINGUAL TID [facility], [facility]1983 Last Admin: 03/06/24 21:52 Dose: 1 film Documented By: ALFONSO Bupropion HCl (Bupropion Hcl Xl 150 Mg Tab.Er.24h) 150 mg PO BID@0900,1500 [facility], [facility]1983 Last Admin: 03/04/24 16:34 Dose: 150 mg Documented By: KARYN Buspirone HCl (Buspirone Hcl 10 Mg Tablet) 10 mg PO BID [facility], [facility] Last Admin: 03/04/24 22:03 Dose: 10 mg Documented By: RIOS Clopidogrel Bisulfate (Clopidogrel Bisulfate 75 Mg Tablet) 75 mg PO DAILY [facility], [facility] Last Admin: 03/04/24 07:59 Dose: 75 mg Documented By: JUNE Docusate Sodium (Docusate Sodium 100 Mg Capsule) 100 mg PO BID [facility], [facility] Last Admin: 03/04/24 22:03 Dose: 100 mg Documented By: RIOS Fluticasone/Vilanterol (Fluticasone/Vilanterol 100/25 Blst.W.Dev) 1 puff INHALE RDAILY [facility], [facility] Last Admin: 03/07/24 07:45 Dose: 1 puff Documented By: CYNTHIA Folic Acid (Folic Acid 1 Mg Tablet) 1 mg PO DAILY [facility], [facility] Last Admin: 03/06/24 07:22 Dose: 1 mg Documented By: ARIELLA Gabapentin (Gabapentin 300 Mg Capsule) 300 mg PO TID [facility], [facility] Last Admin: 03/04/24 22:07 Dose: 300 mg Documented By: RIOS Glucose (Glucose Gel 15 Gm Gel..Gram.) 15 gm PO Q15M PRN; Protocol PRN Reason: per Hypoglycemia Standing Ord. Thiamine HCl 200 mg/ Sodium (Chloride) 102 mls @ 204 mls/hr IV Q8H [facility], [facility] Last Infusion: 03/07/24 01:53 Dose: Infused Documented By: ALFONSO Dextrose (D10) 250 mls @ 750 mls/hr IV Q15M PRN; Protocol PRN Reason: per Hypoglycemia Standing Ord. Piperacillin Sod/Tazobactam (Sod 3.375 gm/ Sodium Chloride) 50 mls @ 100 mls/hr IV Q8H [facility], [facility] Last Infusion: 03/07/24 07:23 Dose: Infused Documented By: ALFONSO Vancomycin HCl 750 mg/ Sodium (Chloride) 265 mls @ 265 mls/hr IV Q12H [facility], [facility]1983 Last Infusion: 03/07/24 01:25 Dose: Infused Documented By: ALFONSO Potassium Chloride/Dextrose/Sod Cl (Kcl 40 Meq In 5% Dex/0.9% Sod) 40 meq in 1,000 mls @ 100 mls/hr IVCONT .Q10H [facility], [facility] Last Infusion: 03/07/24 07:23 Dose: Infused Documented By: ALFONSO Insulin Human Lispro (Insulin Lispro 100 Unit/Ml 3 Ml Vial) 0 unit SUBCUT Q6H [facility], [facility]; Protocol Last Admin: 03/07/24 05:47 Dose: Not Given Documented By: ALFONSO Non-Admin Reason: No Insulin Coverage Lactulose (Lactulose 20 Gm/30 Ml Solution) 20 gm PO TID [facility], [facility] Last Admin: 03/06/24 22:03 Dose: 20 gm Documented By: ALFONSO Ondansetron HCl (Ondansetron Hcl 4 Mg/2 Ml Vial) 4 mg IVPUSH Q6H PRN PRN Reason: Nausea and Vomiting Last Admin: 03/06/24 21:51 Dose: 4 mg Documented By: ALFONSO Oxycodone HCl (Oxycodone Hcl Immed Release 5 Mg Tablet) 5 mg PO Q4H PRN PRN Reason: Pain, Severe (Pain Scale 7-10) Last Admin: 03/04/24 22:55 Dose: 5 mg Documented By: RIOS Pantoprazole Sodium (Pantoprazole Sodium 40 Mg/10 Ml Vial) 40 mg IVPUSH BID@0630,1630 [facility], [facility]1983 Last Admin: 03/07/24 05:43 Dose: 40 mg Documented By: ALFONSO Pharmacy Consult (Consult Rx Vancomycin Dosing) 1 each MISCELLANE DAILY PRN PRN Reason: Consult order Polyethylene Glycol (Polyethylene Glycol 3350 17 Gm Powd.Pack) 17 gm PO DAILY PRN PRN Reason: Constipation Last Admin: 03/02/24 13:32 Dose: 17 gm Documented By: ANIYA Quetiapine Fumarate (Quetiapine Fumarate 200 Mg Tablet) 200 mg PO BEDTIME [facility], [facility] Last Admin: 03/04/24 22:06 Dose: 200 mg Documented By: RIOS Quetiapine Fumarate (Quetiapine Fumarate 50 Mg Tablet) 50 mg PO BEDTIME [facility], [facility] Last Admin: 03/04/24 22:04 Dose: 50 mg Documented By: RIOS Rifaximin (Rifaximin 550 Mg Tablet) 550 mg PO BID [facility], [facility] Last Admin: 03/04/24 22:07 Dose: 550 mg Documented By: RIOS Sodium Chloride (0.9 % Sodium Chloride Flush 3 Ml Syringe) 3 ml IVFLUSH QSHIFT [facility], [facility] Last Admin: 03/06/24 22:03 Dose: 3 ml Documented By: ALFONSO Labs 03/08/24 07:01 03/08/24 07:01 Labs: Laboratory Results - last 24 hr 03/06/24 03/06/24 03/07/24 11:34 18:08 01:10 POC Glucose 119 H 133 H 119 H Ammonia 03/07/24 03/07/24 05:41 07:38 POC Glucose 127 H Ammonia 56 H Microbiology Microbiology Results: Microbiology 03/06/24 00:05 Gram Stain - Final Sputum - Expectorated 03/01/24 10:57 Blood Culture - Final Blood - Venous No growth after 5 days. 03/01/24 10:57 Blood Culture - Final Blood - Venous No growth after 5 days. Procedures Date of Service Date of Service: 03/08/24 Progress Note: A&P Assessment and plan (1) Ileus: Status: Acute Assessment and Plan: Ongoing decompensation of liver disease Abdomen now soft and benign NG-tube output seems clear Plan to clamp NG tube and check in about 4 hours If no significant residual, we will can DC the NG tube later today Discussed with nursing staff Time Spent With Patient Time: Total time managing care of this patient today ____ minutes. Quality Stroke Does the patient have a stroke diagnosis?: No VTE Prior VTE?: No VTE Risk Level:: Medical - moderate - high VTE Device Contraindication: N/A - Device Ordered VTE Drug Contraindication: Treatment Not Indicated
[2024-03-07 10:07] LABS: Hematocrit 38.7 % (42.0-52.0); Mean Corpuscular HGB Conc 33.6 g/dl (31.0-36.0); Mean Corpuscular Hemoglobin 34.7 pg (27.0-33.0); Mean Corpuscular Volume 103.2 fL (80.0-98.0); Mean Platelet Volume 11.4 fL (9.4-12.4); Platelet Count 193 X10*3/uL (160-400); Red Blood Count 3.75 X10*6/uL (4.60-5.80)
[2024-03-07 10:16] LABS: WBC ABN SCTR FOR CBC 1
[2024-03-07 10:17] LABS: White Blood Count 14.5 X10*3/uL (4.8-10.8)
[2024-03-07 10:25] LABS: Alanine Aminotransferase 24 U/L (0-40); Alkaline Phosphatase 222 U/L (39-117); Anion Gap 11 (12-20); Aspartate Amino Transferase 45 U/L (5-37); Bilirubin Direct 6.8 mg/dL (0.0-0.5); Bilirubin Total 9.8 mg/dL (0.0-1.0); Blood Urea Nitrogen 21 mg/dL (9-16); Calcium 8.3 mg/dL (8.4-10.2); Carbon Dioxide 23 mmol/L (22-29); Chloride 113 mmol/L (96-108); Creatinine Clr Calc Pharmacy 114.7; Estimated Glomerular Filt Rate > 60; Glucose Random 112 mg/dL (60-115); Potassium 3.8 mmol/L (3.3-5.1); Sodium 143 mmol/L (135-145); Total Protein 6.8 g/dL (6.5-8.0)
[2024-03-07] MEDS: Folic Acid 1 MG TABLET PO (10:33)
[2024-03-07] MEDS: Bictegrav/Emtricit/Tenofov Ala TABLET 1 TAB PO (10:33)
[2024-03-07] MEDS: Lactulose 20 GM/30 ML SOLUTION PO ×3 (10:33→20:27)
[2024-03-07] MEDS: Buprenorphine/Naloxone 8/2 mg FILM 1 FILM SUBLINGUAL ×3 (10:33→20:30)
[2024-03-07] MEDS: vancomycin HCL 750 MG in 0.9 % Sodium Chloride 250 ML 265 MG IV (10:34)
[2024-03-07] MEDS: 0.9 % Sodium Chloride Flush 3 ML SYRINGE IVFLUSH ×2 (10:34→17:02)
[2024-03-07] MEDS: KCl 40 mEq in 5% Dex/0.9% Sod 40 MEQ/1,000 ML IV.SOLN 100 MEQ IVCONT ×2 (10:48→22:48)
[2024-03-07 11:07] LABS: Band Neutrophils Percent 4 % (3-5); Basophils Abs Manual 0.1 X10*3/uL (0.0-0.2); Basophils Percent Manual 1 % (0-2); Eosinophils Absolute Manual 0.3 X10*3/uL (0.0-0.4); Eosinophils Percent Manual 2 % (0-4); Lymphocytes Absolute Manual 0.4 X10*3/uL (1.2-4.9); Lymphocytes Percent Manual 3 % (20-40); Metamyelocytes Absolute 0.1 X10*3/uL; Metamyelocytes Percent 1 %; Monocytes Absolute Manual 1.6 X10*3/uL (0.1-1.2); Monocytes Percent Manual 11 % (2-11); Myelocytes Absolute 0.1 X10*/uL; Myelocytes Percent 1 %; Neutrophils Absolute Manual 11.7 X10*3/uL (2.0-8.3); Neutrophils Percent Manual 77 % (45-73)
[2024-03-07 11:08] LABS: Macrocytosis 1+ (5-14) /OIF; Platelet Estimate NORMAL (NORMAL); Platelet Morphology Comment NORMAL; RBC Morphology NOTED
[2024-03-07 11:14] LABS: Glucose, Whole Blood 103 mg/dL (60-115)
--- NOTE | 2024-03-07 11:42 | P.PNIM_ITS ---
Subjective Subjective Date of Service: 03/07/24 Interval History: Seen and examined this morning Follow-up for encephalopathy, SBO, bacteremia Awake, alert, answering questions appropriately Feels the abdominal distention is improving, having bowel movements Denies shortness of breath Review of Systems Review of Systems: Yes all other systems are reviewed and are negative Constitutional Constitutional: Denies chills and Denies fever(s) Cardiovascular Cardiovascular: Denies chest pain and Denies dyspnea Respiratory Respiratory: Denies dyspnea Physical Exam 2 Vital Signs: Vital Signs: Last Vital Signs Temp 97.6 F 03/07/24 08:00 Pulse 68 03/07/24 08:00 Resp 20 03/07/24 08:00 BP 146/84 H 03/07/24 08:00 Pulse Ox 97 03/07/24 08:00 O2 Del Method Room Air 03/07/24 08:00 O2 Flow Rate 4 03/07/24 04:00 FiO2 45 03/06/24 11:35 BMI result Body Mass Index 26.6 Const: General: comfortable, alert and awake Nutritional Appearance: a verage body habitus Orientation/consciousness: patient oriented x3 Resp: Other: diminished Effort & Inspection: normal respiratory effort, able to speak in complete sentences, no respiratory distress and no use of accessory muscles Cardio: Rate: regular rate GI: Other: NGT in place; Softly distended, nontender : Other: Ruiz in place draining yellow urine Neuro: Other: Grossly nonfocal, able to move all 4 extremities spontaneously General: patient oriented x3 Objective Data Active Medications Albuterol/Ipratropium (Albuterol/Iprat 2.5/0.5mg 3 Ml Ampul.Neb) 3 ml INHALE Q6H PRN PRN Reason: Shortness of breaths Last Admin: 03/04/24 11:26 Dose: 3 ml Documented By: FABIANA Bictegravir/Emtricitabine/Tenofovir (Bictegrav/Emtricit/Tenofov Ala Tablet) 1 tab PO DAILY [facility] Last Admin: 03/07/24 10:33 Dose: 1 tab Documented By: DARRELL Bisacodyl (Bisacodyl 10 Mg Supp.Rect) 10 mg [place] DAILY PRN PRN Reason: Constipation Buprenorphine/Naloxone (Buprenorphine/Naloxone 8/2 Mg Film) 1 film SUBLINGUAL TID [facility] Last Admin: 03/07/24 10:33 Dose: 1 film Documented By: DARRELL Bupropion HCl (Bupropion Hcl Xl 150 Mg Tab.Er.24h) 150 mg PO BID@0900,1500 [facility] Last Admin: 03/04/24 16:34 Dose: 150 mg Documented By: KARYN Buspirone HCl (Buspirone Hcl 10 Mg Tablet) 10 mg PO BID [facility] Last Admin: 03/04/24 22:03 Dose: 10 mg Documented By: RIOS Clopidogrel Bisulfate (Clopidogrel Bisulfate 75 Mg Tablet) 75 mg PO DAILY [facility] Last Admin: 03/04/24 07:59 Dose: 75 mg Documented By: JUNE Docusate Sodium (Docusate Sodium 100 Mg Capsule) 100 mg PO BID [facility] Last Admin: 03/04/24 22:03 Dose: 100 mg Documented By: RIOS Fluticasone/Vilanterol (Fluticasone/Vilanterol 100/25 Blst.W.Dev) 1 puff INHALE RDAILY [facility] Last Admin: 03/07/24 07:45 Dose: 1 puff Documented By: CYNTHIA Folic Acid (Folic Acid 1 Mg Tablet) 1 mg PO DAILY [facility] Last Admin: 03/07/24 10:33 Dose: 1 mg Documented By: DARRELL Gabapentin (Gabapentin 300 Mg Capsule) 300 mg PO TID [facility] Last Admin: 03/04/24 22:07 Dose: 300 mg Documented By: RIOS Glucose (Glucose Gel 15 Gm Gel..Gram.) 15 gm PO Q15M PRN; Protocol PRN Reason: per Hypoglycemia Standing Ord. Dextrose (D10) 250 mls @ 750 mls/hr IV Q15M PRN; Protocol PRN Reason: per Hypoglycemia Standing Ord. Piperacillin Sod/Tazobactam (Sod 3.375 gm/ Sodium Chloride) 50 mls @ 100 mls/hr IV Q8H [facility] Last Infusion: 03/07/24 07:23 Dose: Infused Documented By: BARRETT-RIVLA Vancomycin HCl 750 mg/ Sodium (Chloride) 265 mls @ 265 mls/hr IV Q12H [facility] Last Admin: 03/07/24 10:34 Dose: 265 mls/hr Documented By: DARRELL Potassium Chloride/Dextrose/Sod Cl (Kcl 40 Meq In 5% Dex/0.9% Sod) 40 meq in 1,000 mls @ 100 mls/hr IVCONT .Q10H [facility] Last Admin: 03/07/24 10:48 Dose: 100 mls/hr Documented By: DARRELL Insulin Human Lispro (Insulin Lispro 100 Unit/Ml 3 Ml Vial) 0 unit SUBCUT Q6H [facility]; Protocol Last Admin: 03/07/24 11:27 Dose: Not Given Documented By: DARRELL Non-Admin Reason: No Insulin Coverage Lactulose (Lactulose 20 Gm/30 Ml Solution) 20 gm PO TID [facility] Last Admin: 03/07/24 10:33 Dose: 20 gm Documented By: DARRELL Ondansetron HCl (Ondansetron Hcl 4 Mg/2 Ml Vial) 4 mg IVPUSH Q6H PRN PRN Reason: Nausea and Vomiting Last Admin: 03/06/24 21:51 Dose: 4 mg Documented By: ALFONSO Oxycodone HCl (Oxycodone Hcl Immed Release 5 Mg Tablet) 5 mg PO Q4H PRN PRN Reason: Pain, Severe (Pain Scale 7-10) Last Admin: 03/04/24 22:55 Dose: 5 mg Documented By: RIOS Pantoprazole Sodium (Pantoprazole Sodium 40 Mg/10 Ml Vial) 40 mg IVPUSH BID@0630,1630 [facility] Last Admin: 03/07/24 05:43 Dose: 40 mg Documented By: ALFONSO Pharmacy Consult (Consult Rx Vancomycin Dosing) 1 each MISCELLANE DAILY PRN PRN Reason: Consult order Polyethylene Glycol (Polyethylene Glycol 3350 17 Gm Powd.Pack) 17 gm PO DAILY PRN PRN Reason: Constipation Last Admin: 03/02/24 13:32 Dose: 17 gm Documented By: ANIYA Quetiapine Fumarate (Quetiapine Fumarate 200 Mg Tablet) 200 mg PO BEDTIME [facility] Last Admin: 03/04/24 22:06 Dose: 200 mg Documented By: RIOS Quetiapine Fumarate (Quetiapine Fumarate 50 Mg Tablet) 50 mg PO BEDTIME [facility] Last Admin: 03/04/24 22:04 Dose: 50 mg Documented By: RIOS Rifaximin (Rifaximin 550 Mg Tablet) 550 mg PO BID [facility] Last Admin: 03/04/24 22:07 Dose: 550 mg Documented By: RIOS Sodium Chloride (0.9 % Sodium Chloride Flush 3 Ml Syringe) 3 ml IVFLUSH QSHIFT [facility] Last Admin: 03/07/24 10:34 Dose: 3 ml Documented By: DARRELL Thiamine HCl (Thiamine Hcl 100 Mg Tablet) 100 mg PO DAILY [facility] Labs 03/07/24 09:13 03/07/24 09:13 Labs: Laboratory Results - last 24 hr 03/06/24 03/06/24 03/07/24 11:34 18:08 01:10 MCV MCH MCHC RDW Plt Count MPV Immature Gran % (Auto) Neut % (Auto) Lymph % (Auto) [place] % (Auto) Eos % (Auto) Baso % (Auto) Lymph # (Auto) [place] # (Auto) Eos # (Auto) Baso # (Auto) Abs Immat Gran (auto) Absolute Neuts (auto) Absolute Nucleated RBC Nucleated RBC % (auto) Neutrophils % (Manual) Band Neutrophils % Lymphocytes % (Manual) Monocytes % (Manual) Eosinophils % (Manual) Basophils % (Manual) Metamyelocytes % Myelocytes % Abs Neuts (Manual) Lymphocytes # (Manual) Monocytes # (Manual) Eosinophils # (Manual) Basophils # (Manual) Metamyelocytes # Myelocytes # Platelet Estimate Plt Morphology Comment RBC Morphology Macrocytosis Anion Gap Estim Creat Clear Calc Estimated GFR POC Glucose 119 H 133 H 119 H Random Glucose Calcium Magnesium Total Bilirubin Direct Bilirubin AST ALT Alkaline Phosphatase Ammonia Total Protein Albumin 03/07/24 03/07/24 03/07/24 05:41 07:38 09:13 MCV 103.2 H D MCH 34.7 H MCHC 33.6 RDW 17.0 H Plt Count 193 MPV 11.4 Immature Gran % (Auto) Cancelled Neut % (Auto) Cancelled Lymph % (Auto) Cancelled [place] % (Auto) Cancelled Eos % (Auto) Cancelled Baso % (Auto) Cancelled Lymph # (Auto) Cancelled [place] # (Auto) Cancelled Eos # (Auto) Cancelled Baso # (Auto) Cancelled Abs Immat Gran (auto) Cancelled Absolute Neuts (auto) Cancelled Absolute Nucleated RBC 0.000 Nucleated RBC % (auto) 0.0 Neutrophils % (Manual) 77 H Band Neutrophils % 4 Lymphocytes % (Manual) 3 L Monocytes % (Manual) 11 Eosinophils % (Manual) 2 Basophils % (Manual) 1 Metamyelocytes % 1 Myelocytes % 1 Abs Neuts (Manual) 11.7 H Lymphocytes # (Manual) 0.4 L Monocytes # (Manual) 1.6 H Eosinophils # (Manual) 0.3 Basophils # (Manual) 0.1 Metamyelocytes # 0.1 Myelocytes # 0.1 Platelet Estimate NORMAL Plt Morphology Comment NORMAL RBC Morphology NOTED Macrocytosis 1+ (5-14) Anion Gap 11 L Estim Creat Clear Calc 114.7 Estimated GFR > 60 POC Glucose 127 H Random Glucose 112 Calcium 8.3 L Magnesium 2.0 Total Bilirubin 9.8 H Direct Bilirubin 6.8 H AST 45 H ALT 24 Alkaline Phosphatase 222 H Ammonia 56 H Total Protein 6.8 Albumin 3.0 L 03/07/24 11:04 MCV MCH MCHC RDW Plt Count MPV Immature Gran % (Auto) Neut % (Auto) Lymph % (Auto) [place] % (Auto) Eos % (Auto) Baso % (Auto) Lymph # (Auto) [place] # (Auto) Eos # (Auto) Baso # (Auto) Abs Immat Gran (auto) Absolute Neuts (auto) Absolute Nucleated RBC Nucleated RBC % (auto) Neutrophils % (Manual) Band Neutrophils % Lymphocytes % (Manual) Monocytes % (Manual) Eosinophils % (Manual) Basophils % (Manual) Metamyelocytes % Myelocytes % Abs Neuts (Manual) Lymphocytes # (Manual) Monocytes # (Manual) Eosinophils # (Manual) Basophils # (Manual) Metamyelocytes # Myelocytes # Platelet Estimate Plt Morphology Comment RBC Morphology Macrocytosis Anion Gap Estim Creat Clear Calc Estimated GFR POC Glucose 103 Random Glucose Calcium Magnesium Total Bilirubin Direct Bilirubin AST ALT Alkaline Phosphatase Ammonia Total Protein Albumin Microbiology Microbiology Results: Microbiology 03/06/24 00:05 Gram Stain - Final Sputum - Expectorated Sputum Culture - Preliminary Culture in progress. 03/01/24 10:57 Blood Culture - Final Blood - Venous No growth after 5 days. 03/01/24 10:57 Blood Culture - Final Blood - Venous No growth after 5 days. Assessment and Plan (1) Alcoholic hepatitis: Status: Acute (2) Bacteremia: Status: Acute (3) Ileus: Status: Acute Plan This is a 59-year-old homeless male with history of opiate dependence on Suboxone, HIV on Biktarvy, chronic hepatitis-C, depression, PTSD, liver cirrhosis, COPD who was brought to the emergency department for evaluation of encephalopathy found to have elevated ammonia levels Acute Toxic metabolic encephalopathy - improving Multifactorial due to hepatic encephalopathy in the setting of liver cirrhosis and bacteremia continue rifaximin and lactulose ammonia trending down, mentation improving. Decrease lactulose to 20g TID to achieve 2-3 loose stools daily leukocytosis secondary to Aspiration pneumonia no fever chest ct showing consolidation continue vancomycin and zosyn Acute hypoxic respiratory failure secondary to aspiration pna s/p high flow oxygen, now on 3L SBO, acute NGT placed gen surg following> plan to clamp the tube this morning and possibly remove this afternoon Alcoholic hepatitis-bili trending down GI input appreciated> no steroids for now in light of bacteremia MSSA bacteremia will need line for 4 weeks of IV abx Echocardiogram without vegetations Continue iv vancomyin Acute lactic acidosis Likely secondary to decreased clearance due to underlying liver disease and not due to sepsis History of alcohol abuse No evidence of alcohol withdrawal at this time alcohol level negative in the emergency department CIWA remains low, no signs of etoh withdrawal at this time History of opiate abuse Denies the use of intravenous drugs reports using pills only Continue baseline Suboxone Addiction medicine consult- plan to return to [facility] following STR Tobacco dependence Smoking cessation advised NRT Thrombocytopenia Appears chronic. Likely related to underlying liver disease Liver cirrhosis Has history of chronic hepatitis-C as well as alcohol abuse LFTs chronically elevated Outpatient follow-up Normocytic anemia Likely due to chronic alcohol use Above transfusion threshold Mood Resume baseline medications bupropion, buspirone, seroquel when able to take po HIV continue biktarvy outpatient follow up DVT prophylaxis SCD boots Healthcare proxy - Brothflorencia Merrill HCP Disposition-patient homeless, TBD Patient requires ongoing inpatient stay for management of abdominal pain, bacteremia requiring IV antibiotics Quality Stroke Does the patient have a stroke diagnosis?: No VTE Prior VTE?: No VTE Risk Level:: Medical - moderate - high VTE Device Contraindication: N/A - Device Ordered VTE Drug Contraindication: Treatment Not Indicated
--- NOTE | 2024-03-07 15:41 | PM.EVENT ---
Event Note Date of Service: 03/07/24 Event Note: NG-tube had been clamped for 4 hours No significant residuals He remains comfortable No abdominal pain Abdominal exam benign - soft, no guarding or rebound or tenderness NG tube DC therefore Okay to have sips of liquids for now Time Spent With Patient Time: Total time managing care of this patient today ____ minutes.
[2024-03-07 17:11] LABS: Glucose, Whole Blood 134 mg/dL (60-115)
--- NOTE | 2024-03-07 18:20 | MHC.SL.SWA ---
Speech Pathologist Impression: Risk of Aspiration Due to: Medically Fragile History of Pneumonia Dysphasia Diet Status: Liquid Consistency and Strategies for Safe Swallow: Liquid Intake Recommendation: Thin Liquid Intake Strategies: Small Sips Solid Food Consistency: Dietary Recommendations: Chopped/Advanced (NDD3) Additional Modifications to Solid Foods: Patient, due to generalized weakness, requires full assistance with eating and drinking at this time. Oral Medication Intake: Whole with Puree Please contact the pharmacy regarding appropriate crushable or liquid drug formulations that are available whenever modified delivery is recommended. Compensatory Strategies and Precautions to be Taken for Safe Swallow: Sitting Upright (90 deg) Liquids from Cup Small Bites and Sips Alternate Liquids/Solids Supervision While Eating and Drinking for Safe Swallow: Total Assistance (1:1) Foods to Avoid: Tough, difficult to chew solids Swallowing Recommended Treatments: Compens. Strategy Educat. Recommendation for Speech: Inpatient Speech Therapy Comment: Patient presented with oral motor function mostly wfl, and mild oral dysphagia secondary to single upper denture. He is currently recommended to start diet of clear liquids only by GI, however when ready to advance to solids recommend chopped/advanced (NDD3), for ease of mastication. Pills whole in puree or liquid as preferred by patient. Patient presents as mildly confused and with generalized weakness, requires 1-1 assistance with meals at this time. MD/RN/RD notified of recommendations by secure text. TECHNICAL BUSINESS ANALYST will continue to follow. Frequency/Duration: Date Range for Service Req: Timeline to reassess: Casing Fluid Tender Clinican/Clinical Fellow: No Supervisory Statement: I have reviewed and agree with the student/clinical fellow's documentation: N/A Speech Language Pathologist: Starla Ornelas M.A., [facility]-TECHNICAL BUSINESS ANALYST
[2024-03-07 19:19] LABS: Vancomycin Random 12.8 mcg/mL (15-20)
[2024-03-07] MEDS: vancomycin HCL 1,000 MG in 0.9 % Sodium Chloride 250 ML 270 MG IV (20:25)
[2024-03-07] MEDS: rifAXIMin 550 MG TABLET PO (20:25)
[2024-03-08] VITALS (9 sets, daily range): BP systolic 126–175; BP diastolic 78–93; PULSE 53–95; RESP 16–22; TEMP 35.8–36.9; O2SAT 87–96
[2024-03-08 00:42] LABS: Glucose, Whole Blood 132 mg/dL (60-115)
[2024-03-08] MEDS: Piperacillin Sodium/Tazobactam 3.375 GM in 0.9 % Sodium Chloride 50 ML IV ×2 (00:45→07:46)
[2024-03-08] MEDS: Albuterol/Iprat 2.5/0.5MG 3 ML AMPUL.NEB INHALE (01:33)
[2024-03-08] MEDS: Pantoprazole Sodium 40 MG/10 ML VIAL IVPUSH ×2 (06:01→17:45)
[2024-03-08 06:21] LABS: Glucose, Whole Blood 130 mg/dL (60-115)
[2024-03-08] MEDS: oxyCODONE HCl Immed Release 5 MG TABLET 2.5 MG PO ×2 (06:24→21:28)
[2024-03-08 07:34] LABS: Glucose, Whole Blood 132 mg/dL (60-115)
[2024-03-08 07:41] LABS: Alanine Aminotransferase 26 U/L (0-40); Albumin Level 2.9 g/dL (3.5-5.0); Alkaline Phosphatase 236 U/L (39-117); Aspartate Amino Transferase 49 U/L (5-37); Bilirubin Direct 5.6 mg/dL (0.0-0.5); Bilirubin Total 8.3 mg/dL (0.0-1.0); Creatinine Clr Calc Pharmacy 114.7; Estimated Glomerular Filt Rate > 60; Total Protein 6.6 g/dL (6.5-8.0)
[2024-03-08] MEDS: Fluticasone/Vilanterol 100/25 BLST.W.DEV 1 PUFF INHALE (08:12)
[2024-03-08] MEDS: vancomycin HCL 1,000 MG in 0.9 % Sodium Chloride 250 ML 270 MG IV (08:21)
[2024-03-08] MEDS: rifAXIMin 550 MG TABLET PO ×2 (08:23→20:49)
[2024-03-08] MEDS: Thiamine HCL 100 MG TABLET PO (08:23)
[2024-03-08] MEDS: Bictegrav/Emtricit/Tenofov Ala TABLET 1 TAB PO (08:23)
[2024-03-08] MEDS: Folic Acid 1 MG TABLET PO (08:23)
[2024-03-08] MEDS: Buprenorphine/Naloxone 8/2 mg FILM 1 FILM SUBLINGUAL ×3 (08:24→20:49)
[2024-03-08] MEDS: Lactulose 20 GM/30 ML SOLUTION PO ×3 (08:24→20:49)
[2024-03-08 08:33] LABS: Hematocrit 39.1 % (42.0-52.0); Hemoglobin 13.2 g/dl (14.0-18.0); Mean Corpuscular HGB Conc 33.8 g/dl (31.0-36.0); Mean Corpuscular Hemoglobin 34.7 pg (27.0-33.0); Mean Corpuscular Volume 102.9 fL (80.0-98.0); Mean Platelet Volume 11.5 fL (9.4-12.4); Platelet Count 201 X10*3/uL (160-400); Red Cell Distribution Width 16.5 % (11.0-16.0); White Blood Count 13.4 X10*3/uL (4.8-10.8)
[2024-03-08 08:41] LABS: Anion Gap 9 (12-20)
[2024-03-08 08:44] LABS: Blood Urea Nitrogen 16 mg/dL (9-16); Calcium 8.4 mg/dL (8.4-10.2); Carbon Dioxide 23 mmol/L (22-29); Chloride 110 mmol/L (96-108); Glucose Random 151 mg/dL (60-115); Sodium 138 mmol/L (135-145)
--- NOTE | 2024-03-08 10:21 | PM.PNGS ---
Subjective Subjective Date of Service: 03/08/24 Interval history: No events reported Mental status seems the same with periods of drowsiness No vomiting reported Physical Exam Vital Signs: Vital Signs: Last Vital Signs Temp 98.5 F 03/08/24 08:00 Pulse 95 03/08/24 08:14 Resp 18 03/08/24 08:14 BP 126/78 03/08/24 08:00 Pulse Ox 92 03/08/24 08:00 O2 Del Method Nasal Cannula 03/08/24 08:00 O2 Flow Rate 1 03/08/24 08:00 FiO2 45 03/06/24 11:35 BMI result Body Mass Index 26.6 Const: Other: Very drowsy General: no acute distress Resp: Other: Mildly short of breath Cardio: Rate: regular rate GI: Other: Soft, no guarding, no rebound, no obvious tenderness Objective Data Active Medications Albuterol/Ipratropium (Albuterol/Iprat 2.5/0.5mg 3 Ml Ampul.Neb) 3 ml INHALE Q6H PRN PRN Reason: Shortness of breaths Last Admin: 03/08/24 01:33 Dose: 3 ml Documented By: MAY Bictegravir/Emtricitabine/Tenofovir (Bictegrav/Emtricit/Tenofov Ala Tablet) 1 tab PO DAILY [facility] Last Admin: 03/08/24 08:23 Dose: 1 tab Documented By: KIM Bisacodyl (Bisacodyl 10 Mg Supp.Rect) 10 mg [place] DAILY PRN PRN Reason: Constipation Buprenorphine/Naloxone (Buprenorphine/Naloxone 8/2 Mg Film) 1 film SUBLINGUAL TID [facility] Last Admin: 03/08/24 08:24 Dose: 1 film Documented By: KIM Bupropion HCl (Bupropion Hcl Xl 150 Mg Tab.Er.24h) 150 mg PO BID@0900,1500 [facility] Last Admin: 03/04/24 16:34 Dose: 150 mg Documented By: KARYN Buspirone HCl (Buspirone Hcl 10 Mg Tablet) 10 mg PO BID [facility] Last Admin: 03/04/24 22:03 Dose: 10 mg Documented By: RIOS Clopidogrel Bisulfate (Clopidogrel Bisulfate 75 Mg Tablet) 75 mg PO DAILY [facility] Last Admin: 03/04/24 07:59 Dose: 75 mg Documented By: JUNE Docusate Sodium (Docusate Sodium 100 Mg Capsule) 100 mg PO BID [facility] Last Admin: 03/04/24 22:03 Dose: 100 mg Documented By: RIOS Fluticasone/Vilanterol (Fluticasone/Vilanterol 100/25 Blst.W.Dev) 1 puff INHALE RDAILY [facility] Last Admin: 03/08/24 08:12 Dose: 1 puff Documented By: CYNTHIA Folic Acid (Folic Acid 1 Mg Tablet) 1 mg PO DAILY [facility] Last Admin: 03/08/24 08:23 Dose: 1 mg Documented By: KIM Gabapentin (Gabapentin 300 Mg Capsule) 300 mg PO TID [facility] Last Admin: 03/04/24 22:07 Dose: 300 mg Documented By: RIOS Glucose (Glucose Gel 15 Gm Gel..Gram.) 15 gm PO Q15M PRN; Protocol PRN Reason: per Hypoglycemia Standing Ord. Dextrose (D10) 250 mls @ 750 mls/hr IV Q15M PRN; Protocol PRN Reason: per Hypoglycemia Standing Ord. Piperacillin Sod/Tazobactam (Sod 3.375 gm/ Sodium Chloride) 50 mls @ 100 mls/hr IV Q8H [facility] Last Infusion: 03/08/24 08:29 Dose: Infused Documented By: KIM Potassium Chloride/Dextrose/Sod Cl (Kcl 40 Meq In 5% Dex/0.9% Sod) 40 meq in 1,000 mls @ 100 mls/hr IVCONT .Q10H [facility] Last Admin: 03/07/24 22:48 Dose: 100 mls/hr Documented By: RIOS Vancomycin HCl 1,000 mg/ (Sodium Chloride) 270 mls @ 270 mls/hr IV Q12H [facility] Last Infusion: 03/08/24 09:35 Dose: Infused Documented By: KIM Insulin Human Lispro (Insulin Lispro 100 Unit/Ml 3 Ml Vial) 0 unit SUBCUT Q6H [facility]; Protocol Last Admin: 03/08/24 00:45 Dose: Not Given Documented By: RIOS Non-Admin Reason: No Insulin Coverage Lactulose (Lactulose 20 Gm/30 Ml Solution) 20 gm PO TID [facility] Last Admin: 03/08/24 08:24 Dose: 20 gm Documented By: KIM Ondansetron HCl (Ondansetron Hcl 4 Mg/2 Ml Vial) 4 mg IVPUSH Q6H PRN PRN Reason: Nausea and Vomiting Last Admin: 03/06/24 21:51 Dose: 4 mg Documented By: ALFONSO Oxycodone HCl (Oxycodone Hcl Immed Release 5 Mg Tablet) 5 mg PO Q4H PRN PRN Reason: Pain, Severe (Pain Scale 7-10) Last Admin: 03/04/24 22:55 Dose: 5 mg Documented By: RIOS Pantoprazole Sodium (Pantoprazole Sodium 40 Mg/10 Ml Vial) 40 mg IVPUSH BID@0630,1630 [facility] Last Admin: 03/08/24 06:01 Dose: 40 mg Documented By: RIOS Pharmacy Consult (Consult Rx Vancomycin Dosing) 1 each [place] DAILY PRN PRN Reason: Consult order Polyethylene Glycol (Polyethylene Glycol 3350 17 Gm Powd.Pack) 17 gm PO DAILY PRN PRN Reason: Constipation Last Admin: 03/02/24 13:32 Dose: 17 gm Documented By: ANIYA Quetiapine Fumarate (Quetiapine Fumarate 200 Mg Tablet) 200 mg PO BEDTIME [facility] Last Admin: 03/04/24 22:06 Dose: 200 mg Documented By: RIOS Quetiapine Fumarate (Quetiapine Fumarate 50 Mg Tablet) 50 mg PO BEDTIME [facility] Last Admin: 03/04/24 22:04 Dose: 50 mg Documented By: RIOS Rifaximin (Rifaximin 550 Mg Tablet) 550 mg PO BID [facility] Last Admin: 03/08/24 08:23 Dose: 550 mg Documented By: KIM Sodium Chloride (0.9 % Sodium Chloride Flush 3 Ml Syringe) 3 ml IVFLUSH QSHIFT [facility] Last Admin: 03/08/24 08:24 Dose: Not Given Documented By: KIM Non-Admin Reason: IV Running Thiamine HCl (Thiamine Hcl 100 Mg Tablet) 100 mg PO DAILY [facility] Last Admin: 03/08/24 08:23 Dose: 100 mg Documented By: KIM Labs 03/08/24 07:01 03/08/24 07:01 Labs: Laboratory Results - last 24 hr 0603/07/24 03/07/24 09:13 11:04 17:07 MCV MCH MCHC RDW Plt Count MPV Absolute Nucleated RBC Nucleated RBC % (auto) Neutrophils % (Manual) 77 H Band Neutrophils % 4 Lymphocytes % (Manual) 3 L Monocytes % (Manual) 11 Eosinophils % (Manual) 2 Basophils % (Manual) 1 Metamyelocytes % 1 Myelocytes % 1 Abs Neuts (Manual) 11.7 H Lymphocytes # (Manual) 0.4 L Monocytes # (Manual) 1.6 H Eosinophils # (Manual) 0.3 Basophils # (Manual) 0.1 Metamyelocytes # 0.1 Myelocytes # 0.1 Platelet Estimate NORMAL Plt Morphology Comment NORMAL RBC Morphology NOTED Macrocytosis 1+ (5-14) Hold Purple Top Anion Gap 11 L Estim Creat Clear Calc 114.7 Estimated GFR > 60 POC Glucose 103 134 H Random Glucose 112 Calcium 8.3 L Magnesium 2.0 Total Bilirubin 9.8 H Direct Bilirubin 6.8 H AST 45 H ALT 24 Alkaline Phosphatase 222 H Total Protein 6.8 Albumin 3.0 L Random Vancomycin 03/07/24 03/08/24 03/08/24 18:02 00:36 06:17 MCV MCH MCHC RDW Plt Count MPV Absolute Nucleated RBC Nucleated RBC % (auto) Neutrophils % (Manual) Band Neutrophils % Lymphocytes % (Manual) Monocytes % (Manual) Eosinophils % (Manual) Basophils % (Manual) Metamyelocytes % Myelocytes % Abs Neuts (Manual) Lymphocytes # (Manual) Monocytes # (Manual) Eosinophils # (Manual) Basophils # (Manual) Metamyelocytes # Myelocytes # Platelet Estimate Plt Morphology Comment RBC Morphology Macrocytosis Hold Purple Top Anion Gap Estim Creat Clear Calc Estimated GFR POC Glucose 132 H 130 H Random Glucose Calcium Magnesium Total Bilirubin Direct Bilirubin AST ALT Alkaline Phosphatase Total Protein Albumin Random Vancomycin 12.8 L 03/08/24 03/08/24 07:01 07:06 MCV 102.9 H MCH 34.7 H MCHC 33.8 RDW 16.5 H Plt Count 201 MPV 11.5 Absolute Nucleated RBC 0.000 Nucleated RBC % (auto) 0.0 Neutrophils % (Manual) Band Neutrophils % Lymphocytes % (Manual) Monocytes % (Manual) Eosinophils % (Manual) Basophils % (Manual) Metamyelocytes % Myelocytes % Abs Neuts (Manual) Lymphocytes # (Manual) Monocytes # (Manual) Eosinophils # (Manual) Basophils # (Manual) Metamyelocytes # Myelocytes # Platelet Estimate Plt Morphology Comment RBC Morphology Macrocytosis Hold Purple Top SEE NOTE Anion Gap 9 L Estim Creat Clear Calc 114.7 Estimated GFR > 60 POC Glucose 132 H Random Glucose 151 H Calcium 8.4 Magnesium Total Bilirubin 8.3 H Direct Bilirubin 5.6 H AST 49 H ALT 26 Alkaline Phosphatase 236 H Total Protein 6.6 Albumin 2.9 L Random Vancomycin Microbiology Microbiology Results: Microbiology 03/06/24 00:05 Gram Stain - Final Sputum - Expectorated Sputum Culture - Final Procedures Date of Service Date of Service: 03/08/24 Progress Note: A&P Assessment and plan (1) Ileus: Status: Acute Assessment and Plan: NG tube removed yesterday No vomiting reported Abdomen soft and benign Nurse reported patient had complained of bloating Okay to have sips of clear liquids for now and advance diet as tolerated Exam benign Time Spent With Patient Time: Total time managing care of this patient today ____ minutes. Quality Stroke Does the patient have a stroke diagnosis?: No VTE Prior VTE?: No VTE Risk Level:: Medical - moderate - high VTE Device Contraindication: N/A - Device Ordered VTE Drug Contraindication: Treatment Not Indicated
[2024-03-08] MEDS: KCl 40 mEq in 5% Dex/0.9% Sod 40 MEQ/1,000 ML IV.SOLN 100 MEQ IVCONT (11:00)
[2024-03-08 11:31] LABS: Glucose, Whole Blood 99 mg/dL (60-115)
--- NOTE | 2024-03-08 12:37 | P.PNIM_ITS ---
Subjective Subjective Date of Service: 03/08/24 Interval History: Seen and examined this morning Follow-up for bacteremia, alcoholic hepatitis, bowel obstruction NGT tube out 03/07 no overnight events Review of Systems Review of Systems: Yes all other systems are reviewed and are negative Constitutional Constitutional: Denies fever(s) Cardiovascular Cardiovascular: Denies chest pain and Denies dyspnea Respiratory Respiratory: Denies dyspnea Gastrointestinal Gastrointestinal: Denies abdominal pain Physical Exam 2 Vital Signs: Vital Signs: Last Vital Signs Temp 97.6 F 03/08/24 12:00 Pulse 76 03/08/24 12:00 Resp 20 03/08/24 12:00 BP 175/88 H 03/08/24 12:00 Pulse Ox 96 03/08/24 12:00 O2 Del Method Nasal Cannula 03/08/24 12:00 O2 Flow Rate 1 03/08/24 12:00 FiO2 45 03/06/24 11:35 BMI result Body Mass Index 26.6 Const: General: cooperative, comfortable, no acute distress, alert and awake Nutritional Appearance: average body habitus Orientation/consciousness: o riented to person and oriented to place Resp: Other: diminished, scattered expiratory wheeze Effort & Inspection: normal respiratory effort, able to speak in complete sentences, no respiratory distress and no use of accessory muscles A uscultation: clear to auscultation bilaterally Cardio: Rate: regular rate GI: Other: softly distended, +BS, no guarding, no rebound : Other: Ruiz in place draining yellow urine Neuro: Other: Grossly nonfocal, able to move all 4 extremities spontaneously; no asterixis General: oriented to person, oriented to place and moves all extremities Extrem: General: Yes no pedal edema Objective Data Active Medications Albuterol/Ipratropium (Albuterol/Iprat 2.5/0.5mg 3 Ml Ampul.Neb) 3 ml INHALE Q6H PRN PRN Reason: Shortness of breaths Last Admin: 03/08/24 01:33 Dose: 3 ml Documented By: MAY Bictegravir/Emtricitabine/Tenofovir (Bictegrav/Emtricit/Tenofov Ala Tablet) 1 tab PO DAILY [facility] Last Admin: 03/08/24 08:23 Dose: 1 tab Documented By: KIM Bisacodyl (Bisacodyl 10 Mg Supp.Rect) 10 mg [place] DAILY PRN PRN Reason: Constipation Buprenorphine/Naloxone (Buprenorphine/Naloxone 8/2 Mg Film) 1 film SUBLINGUAL TID [facility] Last Admin: 03/08/24 08:24 Dose: 1 film Documented By: KIM Bupropion HCl (Bupropion Hcl Xl 150 Mg Tab.Er.24h) 150 mg PO BID@0900,1500 [facility] Last Admin: 03/04/24 16:34 Dose: 150 mg Documented By: KARYN Buspirone HCl (Buspirone Hcl 10 Mg Tablet) 10 mg PO BID [facility] Last Admin: 03/04/24 22:03 Dose: 10 mg Documented By: RIOS Clopidogrel Bisulfate (Clopidogrel Bisulfate 75 Mg Tablet) 75 mg PO DAILY [facility] Last Admin: 03/04/24 07:59 Dose: 75 mg Documented By: JUNE Docusate Sodium (Docusate Sodium 100 Mg Capsule) 100 mg PO BID [facility] Last Admin: 03/04/24 22:03 Dose: 100 mg Documented By: RIOS Fluticasone/Vilanterol (Fluticasone/Vilanterol 100/25 Blst.W.Dev) 1 puff INHALE RDAILY [facility] Last Admin: 03/08/24 08:12 Dose: 1 puff Documented By: CYNTHIA Folic Acid (Folic Acid 1 Mg Tablet) 1 mg PO DAILY [facility] Last Admin: 03/08/24 08:23 Dose: 1 mg Documented By: KIM Gabapentin (Gabapentin 300 Mg Capsule) 300 mg PO TID [facility] Last Admin: 03/04/24 22:07 Dose: 300 mg Documented By: RIOS Glucose (Glucose Gel 15 Gm Gel..Gram.) 15 gm PO Q15M PRN; Protocol PRN Reason: per Hypoglycemia Standing Ord. Dextrose (D10) 250 mls @ 750 mls/hr IV Q15M PRN; Protocol PRN Reason: per Hypoglycemia Standing Ord. Insulin Human Lispro (Insulin Lispro 100 Unit/Ml 3 Ml Vial) 0 unit SUBCUT Q6H [facility]; Protocol Last Admin: 03/08/24 11:40 Dose: Not Given Documented By: KIM Non-Admin Reason: No Insulin Coverage Lactulose (Lactulose 20 Gm/30 Ml Solution) 20 gm PO TID [facility] Last Admin: 03/08/24 08:24 Dose: 20 gm Documented By: KIM Ondansetron HCl (Ondansetron Hcl 4 Mg/2 Ml Vial) 4 mg IVPUSH Q6H PRN PRN Reason: Nausea and Vomiting Last Admin: 03/06/24 21:51 Dose: 4 mg Documented By: BARRETT-RIVLA Oxycodone HCl (Oxycodone Hcl Immed Release 5 Mg Tablet) 5 mg PO Q4H PRN PRN Reason: Pain, Severe (Pain Scale 7-10) Last Admin: 03/04/24 22:55 Dose: 5 mg Documented By: RIOS Pantoprazole Sodium (Pantoprazole Sodium 40 Mg/10 Ml Vial) 40 mg IVPUSH BID@0630,1630 [facility] Last Admin: 03/08/24 06:01 Dose: 40 mg Documented By: RIOS Polyethylene Glycol (Polyethylene Glycol 3350 17 Gm Powd.Pack) 17 gm PO DAILY PRN PRN Reason: Constipation Last Admin: 03/02/24 13:32 Dose: 17 gm Documented By: ANIYA Quetiapine Fumarate (Quetiapine Fumarate 200 Mg Tablet) 200 mg PO BEDTIME [facility] Last Admin: 03/04/24 22:06 Dose: 200 mg Documented By: RIOS Quetiapine Fumarate (Quetiapine Fumarate 50 Mg Tablet) 50 mg PO BEDTIME [facility] Last Admin: 03/04/24 22:04 Dose: 50 mg Documented By: RIOS Rifaximin (Rifaximin 550 Mg Tablet) 550 mg PO BID [facility] Last Admin: 03/08/24 08:23 Dose: 550 mg Documented By: KIM Sodium Chloride (0.9 % Sodium Chloride Flush 3 Ml Syringe) 3 ml IVFLUSH QSHIFT [facility] Last Admin: 03/08/24 08:24 Dose: Not Given Documented By: KIM Non-Admin Reason: IV Running Thiamine HCl (Thiamine Hcl 100 Mg Tablet) 100 mg PO DAILY [facility] Last Admin: 03/08/24 08:23 Dose: 100 mg Documented By: KIM Labs 03/08/24 07:01 03/08/24 07:01 Labs: Laboratory Results - last 24 hr 06/13/24 06/13/24 06/14/24 17:07 18:02 00:36 MCV MCH MCHC RDW Plt Count MPV Absolute Nucleated RBC Nucleated RBC % (auto) Hold Purple Top Anion Gap Estim Creat Clear Calc Estimated GFR POC Glucose 134 H 132 H Random Glucose Calcium Total Bilirubin Direct Bilirubin AST ALT Alkaline Phosphatase Total Protein Albumin Random Vancomycin 12.8 L 03/08/24 03/08/24 03/08/24 06:17 07:01 07:06 MCV 102.9 H MCH 34.7 H MCHC 33.8 RDW 16.5 H Plt Count 201 MPV 11.5 Absolute Nucleated RBC 0.000 Nucleated RBC % (auto) 0.0 Hold Purple Top SEE NOTE Anion Gap 9 L Estim Creat Clear Calc 114.7 Estimated GFR > 60 POC Glucose 130 H 132 H Random Glucose 151 H Calcium 8.4 Total Bilirubin 8.3 H Direct Bilirubin 5.6 H AST 49 H ALT 26 Alkaline Phosphatase 236 H Total Protein 6.6 Albumin 2.9 L Random Vancomycin 03/08/24 11:27 MCV MCH MCHC RDW Plt Count MPV Absolute Nucleated RBC Nucleated RBC % (auto) Hold Purple Top Anion Gap Estim Creat Clear Calc Estimated GFR POC Glucose 99 Random Glucose Calcium Total Bilirubin Direct Bilirubin AST ALT Alkaline Phosphatase Total Protein Albumin Random Vancomycin Microbiology Microbiology Results: Microbiology 03/06/24 00:05 Gram Stain - Final Sputum - Expectorated Sputum Culture - Final Assessment and Plan (1) Ileus: Status: Acute (2) Alcoholic hepatitis: Status: Acute (3) Bacteremia: Status: Acute Plan This is a 59-year-old homeless male with history of opiate dependence on Suboxone, HIV on Biktarvy, chronic hepatitis-C, depression, PTSD, liver cirrhosis, COPD who was brought to the emergency department for evaluation of encephalopathy found to have elevated ammonia levels Acute Toxic metabolic encephalopathy - improving Multifactorial due to hepatic encephalopathy in the setting of liver cirrhosis and bacteremia continue rifaximin and lactulose ammonia trending down, mentation improving. continue lactulose to 20g TID to achieve 2-3 loose stools daily leukocytosis secondary to Aspiration pneumonia no fever chest ct showing consolidation s/p vancomycin and zosyn Acute hypoxic respiratory failure secondary to aspiration pna s/p high flow oxygen, now on 1L SBO, acute NGT placed, removed 03/07 general surgery following Alcoholic hepatitis- bili trending down GI input appreciated> no steroids in light of bacteremia MSSA bacteremia seen by ID, will need 4 weeks of IV abx, initially treated with IV vancomycin, transitioned to IV cefazolin 03/08. end date 03/29 Echocardiogram without vegetations midline ordered Acute lactic acidosis Likely secondary to decreased clearance due to underlying liver disease and not due to sepsis History of alcohol abuse No evidence of alcohol withdrawal at this time alcohol level negative in the emergency department CIWA has remained low, will d/c CIWA History of opiate abuse Denies the use of intravenous drugs reports using pills only Continue baseline Suboxone Addiction medicine consult- plan to return to [facility] following STR Tobacco dependence Smoking cessation advised NRT Thrombocytopenia Likely related to underlying liver disease platelets have improved Liver cirrhosis Has history of chronic hepatitis-C as well as alcohol abuse LFTs chronically elevated Outpatient follow-up Normocytic anemia Likely due to chronic alcohol use H/H stable Above transfusion threshold Mood Resume baseline medications bupropion, buspirone, seroquel when able to take po HIV continue biktarvy outpatient follow up COPD no acute exacerbation continue baseline inhalers DVT prophylaxis SCD boots Healthcare proxy - Brother Garfield HCP Disposition-PT rec STR Patient requires ongoing inpatient stay for management of autte hepatitis, bacteremia requiring IV antibiotics, safe disposition Quality Stroke Does the patient have a stroke diagnosis?: No VTE Prior VTE?: No VTE Risk Level:: Medical - moderate - high VTE Device Contraindication: N/A - Device Ordered VTE Drug Contraindication: Treatment Not Indicated
--- NOTE | 2024-03-08 13:32 | MHC.CM.PN ---
EMR reviewed and per MD rounds, pt is not medically cleared for discharge due to management of acute hepatitis and bacteremia. PT rec STR, [facility] is only facility interested/following.
[2024-03-08] MEDS: ceFAZolin Sodium/Dextrose,Iso 2 GM/50 ML PIGGYBACK IV ×2 (14:34→20:49)
[2024-03-08] MEDS: Dextrose 5 % and Lactated Ring 1,000 ML 80 ML IVCONT (17:42)
--- NOTE | 2024-03-08 17:56 | HO.MIDLINE ---
Midline Insertion MIDLINE INSERTION Diagnosis: BACTEREMIA Indication: 3 WEEKS OF ANTIBX Pertinent Labs: REVIEWED Technique: Using sterile technique including cap and mask, glove and drape, the LEFT arm was prepped and draped in the usual sterile fashion of full barrier technique with CHG. Using ultrasound guidance, LEFT BASILIC vein access was obtained ON FIRST ATTEMPT. [id number] NON-PASV ST MIDLINE was positioned. The procedure was performed in 272. Ultrasound was used to document vein patency and for needle entry. A formal ultrasound picture was recorded. Vascular Camera Control Operator has released the line for use and it is currently dressed with a StatLock, Tegaderm, and CHG disc. Verification has been performed for blood return and line patency. Arm Circumference: 30CM Equipment: BARD POWERGLIDE ST MIDLINE CATHETER Catheter Type: [id number] NON-PASV ST MIDLINE Lot #: [id number]
[2024-03-08 18:31] LABS: Glucose, Whole Blood 114 mg/dL (60-115)
[2024-03-08] MEDS: Heparin Sodium,Porcine Flush 50 UNITS, 0.9 % Sodium Chloride Flush 5 ML IVFLUSH (20:49)
[2024-03-08] MEDS: Nystatin Oral Susp 500,000 UNIT/5 ML ORAL.SUSP 500000 UNIT PO (21:28)
[2024-03-09] VITALS (8 sets, daily range): BP systolic 139–168; BP diastolic 79–104; PULSE 79–94; RESP 18–20; TEMP 36.4–36.9; O2SAT 86–97
[2024-03-09 00:17] LABS: Glucose, Whole Blood 134 mg/dL (60-115)
[2024-03-09] MEDS: Dextrose 5 % and Lactated Ring 1,000 ML 80 ML IVCONT ×2 (05:40→16:51)
[2024-03-09] MEDS: Pantoprazole Sodium 40 MG/10 ML VIAL IVPUSH ×2 (05:40→16:50)
[2024-03-09] MEDS: ceFAZolin Sodium/Dextrose,Iso 2 GM/50 ML PIGGYBACK IV ×3 (05:41→21:06)
[2024-03-09 06:25] LABS: Glucose, Whole Blood 114 mg/dL (60-115)
[2024-03-09 06:48] LABS: Creatinine Clr Calc Pharmacy 116.2; Estimated Glomerular Filt Rate > 60
[2024-03-09] MEDS: Fluticasone/Vilanterol 100/25 BLST.W.DEV 1 PUFF INHALE (07:28)
[2024-03-09] MEDS: Bictegrav/Emtricit/Tenofov Ala TABLET 1 TAB PO (08:45)
[2024-03-09] MEDS: Folic Acid 1 MG TABLET PO (08:45)
[2024-03-09] MEDS: Thiamine HCL 100 MG TABLET PO (08:45)
[2024-03-09] MEDS: Lactulose 20 GM/30 ML SOLUTION PO ×3 (08:45→20:52)
[2024-03-09] MEDS: Buprenorphine/Naloxone 8/2 mg FILM 1 FILM SUBLINGUAL ×3 (08:45→21:06)
[2024-03-09] MEDS: rifAXIMin 550 MG TABLET PO ×2 (08:45→20:52)
[2024-03-09] MEDS: Heparin Sodium,Porcine Flush 50 UNITS, 0.9 % Sodium Chloride Flush 5 ML IVFLUSH ×2 (08:46→14:24)
[2024-03-09] MEDS: 0.9 % Sodium Chloride Flush 3 ML SYRINGE IVFLUSH ×2 (08:46→16:50)
--- NOTE | 2024-03-09 09:33 | PM.PNGS ---
Subjective Subjective Date of Service: 03/09/24 Interval history: Denies abdominal pain Denies nausea or vomiting Says he is passing large amounts of flatus Physical Exam Vital Signs: Vital Signs: Last Vital Signs Temp 98.2 F 03/09/24 08:00 Pulse 87 03/09/24 08:00 Resp 20 03/09/24 08:00 BP 143/79 H 03/09/24 08:00 Pulse Ox 93 03/09/24 08:00 O2 Del Method Nasal Cannula 03/09/24 08:00 O2 Flow Rate 2 03/09/24 08:00 FiO2 45 03/06/24 11:35 BMI result Body Mass Index 26.6 Const: General: no acute distress Resp: Effort & Inspection: normal respiratory effort Cardio: Rate: regular rate GI: Other: Mildly distended Palpation (GI): Soft to palpation, not firm, nontender and no guarding Objective Data Active Medications Albuterol/Ipratropium (Albuterol/Iprat 2.5/0.5mg 3 Ml Ampul.Neb) 3 ml INHALE Q6H PRN PRN Reason: Shortness of breaths Last Admin: 03/08/24 01:33 Dose: 3 ml Documented By: MAY Bictegravir/Emtricitabine/Tenofovir (Bictegrav/Emtricit/Tenofov Ala Tablet) 1 tab PO DAILY [facility] Last Admin: 03/09/24 08:45 Dose: 1 tab Documented By: TOBIN Bisacodyl (Bisacodyl 10 Mg Supp.Rect) 10 mg [place] DAILY PRN PRN Reason: Constipation Buprenorphine/Naloxone (Buprenorphine/Naloxone 8/2 Mg Film) 1 film SUBLINGUAL TID [facility] Last Admin: 03/09/24 08:45 Dose: 1 film Documented By: TOBIN Bupropion HCl (Bupropion Hcl Xl 150 Mg Tab.Er.24h) 150 mg PO BID@0900,1500 [facility] Last Admin: 03/04/24 16:34 Dose: 150 mg Documented By: KARYN Buspirone HCl (Buspirone Hcl 10 Mg Tablet) 10 mg PO BID [facility] Last Admin: 03/04/24 22:03 Dose: 10 mg Documented By: RIOS Clopidogrel Bisulfate (Clopidogrel Bisulfate 75 Mg Tablet) 75 mg PO DAILY [facility] Last Admin: 03/04/24 07:59 Dose: 75 mg Documented By: JUNE Heparin Sodium (Porcine) 50 (units/ Sodium Chloride 5 ml) 0 units IVFLUSH TID [facility] Last Admin: 03/09/24 08:46 Dose: 50 unit Documented By: TOBIN Docusate Sodium (Docusate Sodium 100 Mg Capsule) 100 mg PO BID [facility] Last Admin: 03/04/24 22:03 Dose: 100 mg Documented By: RIOS Fluticasone/Vilanterol (Fluticasone/Vilanterol 100/25 Blst.W.Dev) 1 puff INHALE RDAILY [facility] Last Admin: 03/09/24 07:28 Dose: 1 puff Documented By: MARLENE Folic Acid (Folic Acid 1 Mg Tablet) 1 mg PO DAILY [facility] Last Admin: 03/09/24 08:45 Dose: 1 mg Documented By: TOBIN Gabapentin (Gabapentin 300 Mg Capsule) 300 mg PO TID [facility] Last Admin: 03/04/24 22:07 Dose: 300 mg Documented By: RIOS Glucose (Glucose Gel 15 Gm Gel..Gram.) 15 gm PO Q15M PRN; Protocol PRN Reason: per Hypoglycemia Standing Ord. Dextrose (D10) 250 mls @ 750 mls/hr IV Q15M PRN; Protocol PRN Reason: per Hypoglycemia Standing Ord. Cefazolin Sodium/Dextrose (Ancef) 2 gm in 50 mls @ 100 mls/hr IV Q8H [facility] Last Infusion: 03/09/24 06:16 Dose: Infused Documented By: SENAIT Dextrose/Lactated Ringer's (D5lr) 1,000 mls @ 80 mls/hr IVCONT .[id number] [facility] Last Admin: 03/09/24 05:40 Dose: 80 mls/hr Documented By: SENAIT Insulin Human Lispro (Insulin Lispro 100 Unit/Ml 3 Ml Vial) 0 unit SUBCUT Q6H [facility]; Protocol Last Admin: 03/09/24 06:28 Dose: Not Given Documented By: SENAIT Non-Admin Reason: No Insulin Coverage Lactulose (Lactulose 20 Gm/30 Ml Solution) 20 gm PO TID [facility] Last Admin: 03/09/24 08:45 Dose: 20 gm Documented By: TOBIN Ondansetron HCl (Ondansetron Hcl 4 Mg/2 Ml Vial) 4 mg IVPUSH Q6H PRN PRN Reason: Nausea and Vomiting Last Admin: 03/06/24 21:51 Dose: 4 mg Documented By: ALFONSO Oxycodone HCl (Oxycodone Hcl Immed Release 5 Mg Tablet) 2.5 mg PO Q6H PRN PRN Reason: Pain, Severe (Pain Scale 7-10) Last Admin: 03/08/24 21:28 Dose: 2.5 mg Documented By: SENAIT Pantoprazole Sodium (Pantoprazole Sodium 40 Mg/10 Ml Vial) 40 mg IVPUSH BID@0630,1630 [facility] Last Admin: 03/09/24 05:40 Dose: 40 mg Documented By: SENAIT Polyethylene Glycol (Polyethylene Glycol 3350 17 Gm Powd.Pack) 17 gm PO DAILY PRN PRN Reason: Constipation Last Admin: 03/02/24 13:32 Dose: 17 gm Documented By: ANIYA Quetiapine Fumarate (Quetiapine Fumarate 200 Mg Tablet) 200 mg PO BEDTIME [facility] Last Admin: 03/04/24 22:06 Dose: 200 mg Documented By: RIOS Quetiapine Fumarate (Quetiapine Fumarate 50 Mg Tablet) 50 mg PO BEDTIME [facility] Last Admin: 03/04/24 22:04 Dose: 50 mg Documented By: RIOS Rifaximin (Rifaximin 550 Mg Tablet) 550 mg PO BID [facility] Last Admin: 03/09/24 08:45 Dose: 550 mg Documented By: TOBIN Sodium Chloride (0.9 % Sodium Chloride Flush 3 Ml Syringe) 3 ml IVFLUSH QSHIFT [facility] Last Admin: 03/09/24 08:46 Dose: 3 ml Documented By: TOBIN Thiamine HCl (Thiamine Hcl 100 Mg Tablet) 100 mg PO DAILY [facility] Last Admin: 03/09/24 08:45 Dose: 100 mg Documented By: TOBIN Labs 03/08/24 07:01 03/09/24 06:12 Labs: Laboratory Results - last 24 hr 03/08/24 03/08/24 03/09/24 11:27 18:27 00:12 Hold Purple Top Estim Creat Clear Calc Estimated GFR POC Glucose 99 114 134 H 03/09/24 03/09/24 06:12 06:21 Hold Purple Top SEE NOTE Estim Creat Clear Calc 116.2 Estimated GFR > 60 POC Glucose 114 Microbiology Microbiology Results: Microbiology 03/06/24 00:05 Gram Stain - Final Sputum - Expectorated Sputum Culture - Final Procedures Date of Service Date of Service: 03/09/24 Progress Note: A&P Assessment and plan (1) Ileus: Status: Acute Assessment and Plan: Exam remains soft Passing large amounts of flatus but denies BMs Stool softeners Treat ongoing acute illness Encouraged to ambulate Keep on clear liquids for now Exam otherwise benign Time Spent With Patient Time: Total time managing care of this patient today ____ minutes. Quality Stroke Does the patient have a stroke diagnosis?: No VTE Prior VTE?: No VTE Risk Level:: Medical - moderate - high VTE Device Contraindication: N/A - Device Ordered VTE Drug Contraindication: Treatment Not Indicated
[2024-03-09] MEDS: oxyCODONE HCl Immed Release 5 MG TABLET 2.5 MG PO ×2 (11:21→20:52)
[2024-03-09 11:30] LABS: Glucose, Whole Blood 136 mg/dL (60-115)
--- NOTE | 2024-03-09 15:36 | HO.PM.IMPN ---
Subjective Subjective Date of Service: 03/09/24 Interval History: Seen and examined this morning Follow-up for bacteremia, aspiration, SBO Still with some abdominal distention, passing gas Denies shortness of breath Review of Systems Review of Systems: Yes all other systems are reviewed and are negative Physical Exam Vital Signs: Vital Signs: Last Vital Signs Temp 98.4 F 03/09/24 11:47 Pulse 89 03/09/24 11:47 Resp 20 03/09/24 11:47 BP 155/97 H 03/09/24 11:47 Pulse Ox 92 03/09/24 11:47 O2 Del Method Nasal Cannula 03/09/24 11:47 O2 Flow Rate 2 03/09/24 11:47 FiO2 45 03/06/24 11:35 BMI result Body Mass Index 26.6 Const: General: cooperative, comfortable, no acute distress, alert and awake Nutritional Appearance: average body habitus Orientation/consciousness: oriented to person, oriented to place and patient oriented x3 Resp: Effort & Inspection: normal respiratory effort, able to speak in complete sentences, no respiratory distress and no use of accessory muscles Auscultation: clear to auscultation bilaterally Cardio: Rate: regular rate GI: Other: softly distended, +BS, no guarding, no rebound Neuro: Other: Grossly nonfocal, able to move all 4 extremities spontaneously; no asterixis General: oriented to person, oriented to place, patient oriented x3 and moves all extremities Extrem: General: Yes no pedal edema Objective Data Active Medications Albuterol/Ipratropium (Albuterol/Iprat 2.5/0.5mg 3 Ml Ampul.Neb) 3 ml INHALE Q6H PRN PRN Reason: Shortness of breaths Last Admin: 03/08/24 01:33 Dose: 3 ml Documented By: MAY Bictegravir/Emtricitabine/Tenofovir (Bictegrav/Emtricit/Tenofov Ala Tablet) 1 tab PO DAILY [facility] Last Admin: 03/09/24 08:45 Dose: 1 tab Documented By: TOBIN Bisacodyl (Bisacodyl 10 Mg Supp.Rect) 10 mg [place] DAILY PRN PRN Reason: Constipation Buprenorphine/Naloxone (Buprenorphine/Naloxone 8/2 Mg Film) 1 film SUBLINGUAL TID [facility] Last Admin: 03/09/24 14:24 Dose: 1 film Documented By: TOBIN Bupropion HCl (Bupropion Hcl Xl 150 Mg Tab.Er.24h) 150 mg PO BID@0900,1500 [facility] Last Admin: 03/04/24 16:34 Dose: 150 mg Documented By: KARYN Buspirone HCl (Buspirone Hcl 10 Mg Tablet) 10 mg PO BID [facility] Last Admin: 03/04/24 22:03 Dose: 10 mg Documented By: RIOS Clopidogrel Bisulfate (Clopidogrel Bisulfate 75 Mg Tablet) 75 mg PO DAILY [facility] Last Admin: 03/04/24 07:59 Dose: 75 mg Documented By: JUNE Heparin Sodium (Porcine) 50 (units/ Sodium Chloride 5 ml) 0 units IVFLUSH TID [facility] Last Admin: 03/09/24 14:24 Dose: 50 unit Documented By: TOBIN Docusate Sodium (Docusate Sodium 100 Mg Capsule) 100 mg PO BID [facility] Last Admin: 03/04/24 22:03 Dose: 100 mg Documented By: RIOS Fluticasone/Vilanterol (Fluticasone/Vilanterol 100/25 Blst.W.Dev) 1 puff INHALE RDAILY [facility] Last Admin: 03/09/24 07:28 Dose: 1 puff Documented By: MARLENE Folic Acid (Folic Acid 1 Mg Tablet) 1 mg PO DAILY [facility] Last Admin: 03/09/24 08:45 Dose: 1 mg Documented By: TOBIN Gabapentin (Gabapentin 300 Mg Capsule) 300 mg PO TID [facility] Last Admin: 03/04/24 22:07 Dose: 300 mg Documented By: RIOS Glucose (Glucose Gel 15 Gm Gel..Gram.) 15 gm PO Q15M PRN; Protocol PRN Reason: per Hypoglycemia Standing Ord. Dextrose (D10) 250 mls @ 750 mls/hr IV Q15M PRN; Protocol PRN Reason: per Hypoglycemia Standing Ord. Cefazolin Sodium/Dextrose (Ancef) 2 gm in 50 mls @ 100 mls/hr IV Q8H [facility] Last Infusion: 03/09/24 13:07 Dose: Infused Documented By: TOBIN Dextrose/Lactated Ringer's (D5lr) 1,000 mls @ 80 mls/hr IVCONT .[id number] [facility] Last Admin: 03/09/24 05:40 Dose: 80 mls/hr Documented By: SENAIT Insulin Human Lispro (Insulin Lispro 100 Unit/Ml 3 Ml Vial) 0 unit SUBCUT Q6H [facility]; Protocol Last Admin: 03/09/24 12:23 Dose: Not Given Documented By: TOBIN Non-Admin Reason: No Insulin Coverage Lactulose (Lactulose 20 Gm/30 Ml Solution) 20 gm PO TID [facility] Last Admin: 03/09/24 14:24 Dose: 20 gm Documented By: TOBIN Ondansetron HCl (Ondansetron Hcl 4 Mg/2 Ml Vial) 4 mg IVPUSH Q6H PRN PRN Reason: Nausea and Vomiting Last Admin: 03/06/24 21:51 Dose: 4 mg Documented By: ALFONSO Oxycodone HCl (Oxycodone Hcl Immed Release 5 Mg Tablet) 2.5 mg PO Q6H PRN PRN Reason: Pain, Severe (Pain Scale 7-10) Last Admin: 03/09/24 11:21 Dose: 2.5 mg Documented By: TOBIN Pantoprazole Sodium (Pantoprazole Sodium 40 Mg/10 Ml Vial) 40 mg IVPUSH BID@0630,1630 [facility] Last Admin: 03/09/24 05:40 Dose: 40 mg Documented By: SENAIT Polyethylene Glycol (Polyethylene Glycol 3350 17 Gm Powd.Pack) 17 gm PO DAILY PRN PRN Reason: Constipation Last Admin: 03/02/24 13:32 Dose: 17 gm Documented By: ANIYA Quetiapine Fumarate (Quetiapine Fumarate 200 Mg Tablet) 200 mg PO BEDTIME [facility] Last Admin: 03/04/24 22:06 Dose: 200 mg Documented By: RIOS Quetiapine Fumarate (Quetiapine Fumarate 50 Mg Tablet) 50 mg PO BEDTIME [facility] Last Admin: 03/04/24 22:04 Dose: 50 mg Documented By: RIOS Rifaximin (Rifaximin 550 Mg Tablet) 550 mg PO BID [facility] Last Admin: 03/09/24 08:45 Dose: 550 mg Documented By: TOBIN Sodium Chloride (0.9 % Sodium Chloride Flush 3 Ml Syringe) 3 ml IVFLUSH QSHIFT [facility] Last Admin: 03/09/24 08:46 Dose: 3 ml Documented By: TOBIN Thiamine HCl (Thiamine Hcl 100 Mg Tablet) 100 mg PO DAILY [facility] Last Admin: 03/09/24 08:45 Dose: 100 mg Documented By: TOBIN Labs 03/08/24 07:01 03/09/24 06:12 Labs: Laboratory Results - last 24 hr 03/08/24 03/09/24 03/09/24 18:27 00:12 06:12 Hold Purple Top SEE NOTE Estim Creat Clear Calc 116.2 Estimated GFR > 60 POC Glucose 114 134 H 03/09/24 03/09/24 06:21 11:18 Hold Purple Top Estim Creat Clear Calc Estimated GFR POC Glucose 114 136 H Assessment and Plan (1) Ileus: Status: Acute (2) Alcoholic hepatitis: Status: Acute (3) Bacteremia: Status: Acute Plan This is a 59-year-old homeless male with history of opiate dependence on Suboxone, HIV on Biktarvy, chronic hepatitis-C, depression, PTSD, liver cirrhosis, COPD who was brought to the emergency department for evaluation of encephalopathy found to have elevated ammonia levels Acute Toxic metabolic encephalopathy - improving Multifactorial due to hepatic encephalopathy in the setting of liver cirrhosis and bacteremia continue rifaximin and lactulose ammonia trending down, mentation improving. continue lactulose to 20g TID to achieve 2-3 loose stools daily leukocytosis secondary to Aspiration pneumonia no fever chest ct showing consolidation s/p vancomycin and zosyn Acute hypoxic respiratory failure secondary to aspiration pna s/p high flow oxygen, now on 1-2L SBO, acute NGT placed, removed 03/07 general surgery following still on sips of clears rec out of bed to chair Alcoholic hepatitis- bili trending down GI input appreciated> no steroids in light of bacteremia MSSA bacteremia seen by ID, will need 4 weeks of IV abx, initially treated with IV vancomycin, transitioned to IV cefazolin 03/08. end date 03/29 midline placed 03/08 Echocardiogram without vegetations Acute lactic acidosis Likely secondary to decreased clearance due to underlying liver disease and not due to sepsis History of alcohol abuse No evidence of alcohol withdrawal at this time alcohol level negative in the emergency department CIWA has remained low, will d/c CIWA History of opiate abuse Denies the use of intravenous drugs reports using pills only Continue baseline Suboxone Addiction medicine consult[facility] Tobacco dependence Smoking cessation advised NRT Thrombocytopenia Likely related to underlying liver disease platelets have improved Liver cirrhosis Has history of chronic hepatitis-C as well as alcohol abuse LFTs chronically elevated Outpatient follow-up Normocytic anemia Likely due to chronic alcohol use H/H stable Above transfusion threshold Mood Resume baseline medications bupropion, buspirone, seroquel when able to take po HIV continue biktarvy outpatient follow up COPD no acute exacerbation continue baseline inhalers DVT prophylaxis SCD boots Healthcare proxy - Brother Garfield HCP Disposition-PT rec STR Patient requires ongoing inpatient stay for management of autte hepatitis, bacteremia requiring IV antibiotics, safe disposition Quality Stroke Does the patient have a stroke diagnosis?: No VTE Prior VTE?: No VTE Risk Level:: Medical - moderate - high VTE Device Contraindication: N/A - Device Ordered VTE Drug Contraindication: Treatment Not Indicated
[2024-03-09 17:37] LABS: Glucose, Whole Blood 153 mg/dL (60-115)
[2024-03-09 18:28] LABS: Vancomycin Random 5.3 mcg/mL (15-20)
[2024-03-09 20:39] LABS: Glucose, Whole Blood 144 mg/dL (60-115)
[2024-03-09] MEDS: Docusate Sodium 100 MG CAPSULE PO (20:52)
[2024-03-09] MEDS: Albuterol/Iprat 2.5/0.5MG 3 ML AMPUL.NEB INHALE (22:40)
[2024-03-10] VITALS (7 sets, daily range): BP systolic 106–170; BP diastolic 80–90; PULSE 80–94; RESP 15–20; TEMP 36.1–37.1; O2SAT 90–95
[2024-03-10] MEDS: bisacodyL 10 MG SUPP.RECT PR (00:42)
[2024-03-10 00:44] LABS: Glucose, Whole Blood 168 mg/dL (60-115)
[2024-03-10] MEDS: 0.9 % Sodium Chloride Flush 3 ML SYRINGE IVFLUSH ×4 (00:47→21:34)
[2024-03-10] MEDS: oxyCODONE HCl Immed Release 5 MG TABLET 2.5 MG PO ×3 (02:38→21:40)
[2024-03-10] MEDS: Dextrose 5 % and Lactated Ring 1,000 ML 80 ML IVCONT (05:39)
[2024-03-10] MEDS: ceFAZolin Sodium/Dextrose,Iso 2 GM/50 ML PIGGYBACK IV ×3 (05:39→21:40)
[2024-03-10] MEDS: Pantoprazole Sodium 40 MG/10 ML VIAL IVPUSH ×2 (05:39→16:49)
[2024-03-10 06:15] LABS: Hematocrit 37.2 % (42.0-52.0); Hemoglobin 12.6 g/dl (14.0-18.0); Mean Corpuscular HGB Conc 33.9 g/dl (31.0-36.0); Mean Corpuscular Hemoglobin 34.1 pg (27.0-33.0); Mean Corpuscular Volume 100.8 fL (80.0-98.0); Mean Platelet Volume 11.2 fL (9.4-12.4); Platelet Count 215 X10*3/uL (160-400); Red Blood Count 3.69 X10*6/uL (4.60-5.80); Red Cell Distribution Width 15.9 % (11.0-16.0); White Blood Count 17.4 X10*3/uL (4.8-10.8)
[2024-03-10 06:33] LABS: Alanine Aminotransferase 24 U/L (0-40); Albumin Level 2.7 g/dL (3.5-5.0); Alkaline Phosphatase 249 U/L (39-117); Anion Gap 9 (12-20); Aspartate Amino Transferase 57 U/L (5-37); Bilirubin Direct 6.3 mg/dL (0.0-0.5); Bilirubin Total 9.7 mg/dL (0.0-1.0); Blood Urea Nitrogen 12 mg/dL (9-16); Calcium 8.1 mg/dL (8.4-10.2); Carbon Dioxide 22 mmol/L (22-29); Chloride 109 mmol/L (96-108); Estimated Glomerular Filt Rate > 60; Glucose Random 160 mg/dL (60-115); Potassium 3.4 mmol/L (3.3-5.1); Sodium 137 mmol/L (135-145); Total Protein 6.7 g/dL (6.5-8.0)
[2024-03-10 07:01] LABS: Glucose, Whole Blood 136 mg/dL (60-115)
[2024-03-10] MEDS: Fluticasone/Vilanterol 100/25 BLST.W.DEV 1 PUFF INHALE (07:45)
[2024-03-10] MEDS: Heparin Sodium,Porcine Flush 50 UNITS, 0.9 % Sodium Chloride Flush 5 ML IVFLUSH ×3 (08:58→21:33)
[2024-03-10] MEDS: Folic Acid 1 MG TABLET PO (09:00)
[2024-03-10] MEDS: Bictegrav/Emtricit/Tenofov Ala TABLET 1 TAB PO (09:00)
[2024-03-10] MEDS: Buprenorphine/Naloxone 8/2 mg FILM 1 FILM SUBLINGUAL ×3 (09:00→21:33)
[2024-03-10] MEDS: Lactulose 20 GM/30 ML SOLUTION PO ×2 (09:00→21:33)
[2024-03-10] MEDS: Docusate Sodium 100 MG CAPSULE PO ×2 (09:00→21:33)
[2024-03-10] MEDS: Thiamine HCL 100 MG TABLET PO (09:00)
[2024-03-10] MEDS: rifAXIMin 550 MG TABLET PO ×2 (09:00→21:33)
--- NOTE | 2024-03-10 09:53 | HO.PM.IMPN ---
Subjective Subjective Date of Service: 03/10/24 Interval History: seen and examined this morning follow up for bacteremia, acute hepatitis, bowel obstruction had large BM this am after suppository, abdomen still somewhat distended, but remains soft and nontender no sob, no cough Review of Systems Review of Systems: Yes all other systems are reviewed and are negative Constitutional Constitutional: Denies fever(s) Cardiovascular Cardiovascular: Denies chest pain, Denies palpitations and Denies dyspnea Respiratory Respiratory: Denies cough and Denies dyspnea Gastrointestinal Gastrointestinal: Denies abdominal pain, Denies nausea and Denies vomiting Endocrine Endocrine: Denies palpitations Physical Exam Vital Signs: Vital Signs: Last Vital Signs Temp 97.5 F 03/10/24 08:00 Pulse 82 03/10/24 08:00 Resp 20 03/10/24 08:00 BP 148/80 H 03/10/24 08:00 Pulse Ox 93 03/10/24 08:00 O2 Del Method Nasal Cannula 03/10/24 08:00 O2 Flow Rate 2 03/10/24 08:00 FiO2 45 03/06/24 11:35 BMI result Body Mass Index 26.6 Const: General: cooperative, comfortable, no acute distress, alert and awake Nutritional Appearance: average body habitus Orientation/consciousness: patient oriented x3 Resp: Other: diminished, scattered expiratory wheeze Effort & Inspection: normal respiratory effort, able to speak in complete sentences, no respiratory distress and no use of accessory muscles Cardio: Rate: regular rate GI: Other: softly distended, +BS, no guarding, no rebound Percussion: No Fluid wave present Neuro: Other: Grossly nonfocal, able to move all 4 extremities spontaneously; no asterixis General: patient oriented x3 and moves all extremities Extrem: General: Yes no pedal edema Objective Data Active Medications Albuterol/Ipratropium (Albuterol/Iprat 2.5/0.5mg 3 Ml Ampul.Neb) 3 ml INHALE Q6H PRN PRN Reason: Shortness of breaths Last Admin: 03/09/24 22:40 Dose: 3 ml Documented By: GUS Bictegravir/Emtricitabine/Tenofovir (Bictegrav/Emtricit/Tenofov Ala Tablet) 1 tab PO DAILY [facility] Last Admin: 03/10/24 09:00 Dose: 1 tab Documented By: TOBIN Bisacodyl (Bisacodyl 10 Mg Supp.Rect) 10 mg HI DAILY PRN PRN Reason: Constipation Last Admin: 03/10/24 00:42 Dose: 10 mg Documented By: CRISPIN Buprenorphine/Naloxone (Buprenorphine/Naloxone 8/2 Mg Film) 1 film SUBLINGUAL TID [facility] Last Admin: 03/10/24 09:00 Dose: 1 film Documented By: TOBIN Bupropion HCl (Bupropion Hcl Xl 150 Mg Tab.Er.24h) 150 mg PO BID@0900,1500 [facility] Last Admin: 03/04/24 16:34 Dose: 150 mg Documented By: KARYN Buspirone HCl (Buspirone Hcl 10 Mg Tablet) 10 mg PO BID [facility] Last Admin: 03/04/24 22:03 Dose: 10 mg Documented By: RIOS Clopidogrel Bisulfate (Clopidogrel Bisulfate 75 Mg Tablet) 75 mg PO DAILY [facility] Last Admin: 03/04/24 07:59 Dose: 75 mg Documented By: JUNE Heparin Sodium (Porcine) 50 (units/ Sodium Chloride 5 ml) 0 units IVFLUSH TID [facility] Last Admin: 03/10/24 08:58 Dose: 50 unit Documented By: TOBIN Docusate Sodium (Docusate Sodium 100 Mg Capsule) 100 mg PO BID [facility] Last Admin: 03/10/24 09:00 Dose: 100 mg Documented By: TOBIN Fluticasone/Vilanterol (Fluticasone/Vilanterol 100/25 Blst.W.Dev) 1 puff INHALE RDAILY [facility] Last Admin: 03/10/24 07:45 Dose: 1 puff Documented By: FABIANA Folic Acid (Folic Acid 1 Mg Tablet) 1 mg PO DAILY [facility] Last Admin: 03/10/24 09:00 Dose: 1 mg Documented By: TOBIN Gabapentin (Gabapentin 300 Mg Capsule) 300 mg PO TID [facility] Last Admin: 03/04/24 22:07 Dose: 300 mg Documented By: RIOS Glucose (Glucose Gel 15 Gm Gel..Gram.) 15 gm PO Q15M PRN; Protocol PRN Reason: per Hypoglycemia Standing Ord. Dextrose (D10) 250 mls @ 750 mls/hr IV Q15M PRN; Protocol PRN Reason: per Hypoglycemia Standing Ord. Cefazolin Sodium/Dextrose (Ancef) 2 gm in 50 mls @ 100 mls/hr IV Q8H [facility] Last Infusion: 03/10/24 06:33 Dose: Infused Documented By: SENAIT Dextrose/Lactated Ringer's (D5lr) 1,000 mls @ 80 mls/hr IVCONT .[id number] [facility] Last Admin: 03/10/24 05:39 Dose: 80 mls/hr Documented By: SENAIT Insulin Human Lispro (Insulin Lispro 100 Unit/Ml 3 Ml Vial) 0 unit SUBCUT Q6H [facility]; Protocol Last Admin: 03/10/24 07:06 Dose: Not Given Documented By: SENAIT Non-Admin Reason: No Insulin Coverage Lactulose (Lactulose 20 Gm/30 Ml Solution) 20 gm PO TID [facility] Last Admin: 03/10/24 09:00 Dose: 20 gm Documented By: TOBIN Ondansetron HCl (Ondansetron Hcl 4 Mg/2 Ml Vial) 4 mg IVPUSH Q6H PRN PRN Reason: Nausea and Vomiting Last Admin: 03/06/24 21:51 Dose: 4 mg Documented By: ALFONSO Oxycodone HCl (Oxycodone Hcl Immed Release 5 Mg Tablet) 2.5 mg PO Q6H PRN PRN Reason: Pain, Severe (Pain Scale 7-10) Last Admin: 03/10/24 02:38 Dose: 2.5 mg Documented By: CRISPIN Pantoprazole Sodium (Pantoprazole Sodium 40 Mg/10 Ml Vial) 40 mg IVPUSH BID@0630,1630 [facility] Last Admin: 03/10/24 05:39 Dose: 40 mg Documented By: SENAIT Polyethylene Glycol (Polyethylene Glycol 3350 17 Gm Powd.Pack) 17 gm PO DAILY PRN PRN Reason: Constipation Last Admin: 03/02/24 13:32 Dose: 17 gm Documented By: ANIYA Quetiapine Fumarate (Quetiapine Fumarate 200 Mg Tablet) 200 mg PO BEDTIME [facility] Last Admin: 03/04/24 22:06 Dose: 200 mg Documented By: RIOS Quetiapine Fumarate (Quetiapine Fumarate 50 Mg Tablet) 50 mg PO BEDTIME [facility] Last Admin: 03/04/24 22:04 Dose: 50 mg Documented By: RIOS Rifaximin (Rifaximin 550 Mg Tablet) 550 mg PO BID [facility] Last Admin: 03/10/24 09:00 Dose: 550 mg Documented By: TOBIN Sodium Chloride (0.9 % Sodium Chloride Flush 3 Ml Syringe) 3 ml IVFLUSH QSHIFT [facility] Last Admin: 03/10/24 09:00 Dose: 3 ml Documented By: TOBIN Thiamine HCl (Thiamine Hcl 100 Mg Tablet) 100 mg PO DAILY [facility] Last Admin: 03/10/24 09:00 Dose: 100 mg Documented By: TOBIN Labs 03/10/24 05:51 03/10/24 05:51 Labs: Laboratory Results - last 24 hr 03/09/24 03/09/24 03/09/24 11:18 17:33 18:02 MCV MCH MCHC RDW Plt Count MPV Absolute Nucleated RBC Nucleated RBC % (auto) Anion Gap Estim Creat Clear Calc Estimated GFR POC Glucose 136 H 153 H Random Glucose Calcium Total Bilirubin Direct Bilirubin AST ALT Alkaline Phosphatase Total Protein Albumin Random Vancomycin 5.3 L 03/09/24 03/10/24 03/10/24 20:24 00:41 05:51 MCV 100.8 H MCH 34.1 H MCHC 33.9 RDW 15.9 Plt Count 215 MPV 11.2 Absolute Nucleated RBC 0.000 Nucleated RBC % (auto) 0.0 Anion Gap 9 L Estim Creat Clear Calc 138.0 Estimated GFR > 60 POC Glucose 144 H 168 H Random Glucose 160 H Calcium 8.1 L Total Bilirubin 9.7 H Direct Bilirubin 6.3 H AST 57 H ALT 24 Alkaline Phosphatase 249 H Total Protein 6.7 Albumin 2.7 L Random Vancomycin 03/10/24 06:58 MCV MCH MCHC RDW Plt Count MPV Absolute Nucleated RBC Nucleated RBC % (auto) Anion Gap Estim Creat Clear Calc Estimated GFR POC Glucose 136 H Random Glucose Calcium Total Bilirubin Direct Bilirubin AST ALT Alkaline Phosphatase Total Protein Albumin Random Vancomycin Assessment and Plan (1) Ileus: Status: Acute (2) Alcoholic hepatitis: Status: Acute (3) Bacteremia: Status: Acute (4) Aspiration into airway: Status: Acute Plan This is a 59-year-old homeless male with history of opiate dependence on Suboxone, HIV on Biktarvy, chronic hepatitis-C, depression, PTSD, liver cirrhosis, COPD who was brought to the emergency department for evaluation of encephalopathy found to have elevated ammonia levels Acute Toxic metabolic encephalopathy. resolved Multifactorial due to hepatic encephalopathy in the setting of liver cirrhosis and bacteremia continue rifaximin and lactulose ammonia trending down, asterixis resolved. continue lactulose to 20g TID to achieve 2-3 loose stools daily Aspiration pneumonia no fever chest ct showing consolidation s/p vancomycin and zosyn seen by speech, cleared for NDD3 diet when able to advance diet Acute hypoxic respiratory failure secondary to aspiration pna s/p high flow oxygen, now on 1-2L leukocytosis white count trending up. no change in condition, no fever no diarrhea, no urinary or respiratory symptoms on cefazolin for bacteremia monitor white count SBO, acute NGT placed, removed 03/07 general surgery following rec out of bed to chair trial clear liquids Alcoholic hepatitis- bili trending up slightly, follow trend GI input appreciated> no steroids in light of bacteremia MSSA bacteremia seen by ID, will need 4 weeks of IV abx, initially treated with IV vancomycin, transitioned to IV cefazolin 03/08. end date 03/29 midline placed 03/08 Echocardiogram without vegetations Acute lactic acidosis Likely secondary to decreased clearance due to underlying liver disease and not due to sepsis History of alcohol abuse No evidence of alcohol withdrawal at this time alcohol level negative in the emergency department CIWA has remained low, will d/c CIWA History of opiate abuse Denies the use of intravenous drugs reports using pills only Continue baseline Suboxone Addiction medicine consult- plan to return to [facility] following STR Tobacco dependence Smoking cessation advised NRT Thrombocytopenia Likely related to underlying liver disease platelets have improved Liver cirrhosis Has history of chronic hepatitis-C as well as alcohol abuse LFTs chronically elevated Outpatient follow-up Normocytic anemia Likely due to chronic alcohol use H/H stable Above transfusion threshold Mood Resume baseline medications bupropion, buspirone, seroquel when able to take po HIV continue biktarvy outpatient follow up COPD no acute exacerbation continue baseline inhalers DVT prophylaxis SCD boots Healthcare proxy - Brother Garfield HCP Disposition-PT rec STR Patient requires ongoing inpatient stay for management of autte hepatitis, bacteremia requiring IV antibiotics, safe disposition Quality Stroke Does the patient have a stroke diagnosis?: No VTE Prior VTE?: No VTE Risk Level:: Medical - moderate - high VTE Device Contraindication: N/A - Device Ordered VTE Drug Contraindication: Treatment Not Indicated
--- NOTE | 2024-03-10 10:01 | PM.PNGS ---
Subjective Subjective Date of Service: 03/10/24 Interval history: Denies abdominal pain Describes pain ?all over my body? Passing with amounts of flatus and stools Physical Exam Vital Signs: Vital Signs: Last Vital Signs Temp 97.5 F 03/10/24 08:00 Pulse 82 03/10/24 08:00 Resp 20 03/10/24 08:00 BP 148/80 H 03/10/24 08:00 Pulse Ox 93 03/10/24 08:00 O2 Del Method Nasal Cannula 03/10/24 08:00 O2 Flow Rate 2 03/10/24 08:00 FiO2 45 03/06/24 11:35 BMI result Body Mass Index 26.6 Const: Other: Jaundiced General: no acute distress Resp: Effort & Inspection: normal respiratory effort Cardio: Rate: regular rate GI: Other: Distended but soft, no guarding, no rebound, no tenderness Objective Data Active Medications Albuterol/Ipratropium (Albuterol/Iprat 2.5/0.5mg 3 Ml Ampul.Neb) 3 ml INHALE Q6H PRN PRN Reason: Shortness of breaths Last Admin: 03/09/24 22:40 Dose: 3 ml Documented By: GUS Bictegravir/Emtricitabine/Tenofovir (Bictegrav/Emtricit/Tenofov Ala Tablet) 1 tab PO DAILY [facility] Last Admin: 03/10/24 09:00 Dose: 1 tab Documented By: TOBIN Bisacodyl (Bisacodyl 10 Mg Supp.Rect) 10 mg AL DAILY PRN PRN Reason: Constipation Last Admin: 03/10/24 00:42 Dose: 10 mg Documented By: CRISPIN Buprenorphine/Naloxone (Buprenorphine/Naloxone 8/2 Mg Film) 1 film SUBLINGUAL TID [facility] Last Admin: 03/10/24 09:00 Dose: 1 film Documented By: TOBIN Bupropion HCl (Bupropion Hcl Xl 150 Mg Tab.Er.24h) 150 mg PO BID@0900,1500 [facility] Last Admin: 03/04/24 16:34 Dose: 150 mg Documented By: KARYN Buspirone HCl (Buspirone Hcl 10 Mg Tablet) 10 mg PO BID [facility] Last Admin: 03/04/24 22:03 Dose: 10 mg Documented By: RIOS Clopidogrel Bisulfate (Clopidogrel Bisulfate 75 Mg Tablet) 75 mg PO DAILY [facility] Last Admin: 03/04/24 07:59 Dose: 75 mg Documented By: JUNE Heparin Sodium (Porcine) 50 (units/ Sodium Chloride 5 ml) 0 units IVFLUSH TID [facility] Last Admin: 03/10/24 08:58 Dose: 50 unit Documented By: TOBIN Docusate Sodium (Docusate Sodium 100 Mg Capsule) 100 mg PO BID [facility] Last Admin: 03/10/24 09:00 Dose: 100 mg Documented By: TOBIN Fluticasone/Vilanterol (Fluticasone/Vilanterol 100/25 Blst.W.Dev) 1 puff INHALE RDAILY [facility] Last Admin: 03/10/24 07:45 Dose: 1 puff Documented By: FABIANA Folic Acid (Folic Acid 1 Mg Tablet) 1 mg PO DAILY [facility] Last Admin: 03/10/24 09:00 Dose: 1 mg Documented By: TOBIN Gabapentin (Gabapentin 300 Mg Capsule) 300 mg PO TID [facility] Last Admin: 03/04/24 22:07 Dose: 300 mg Documented By: RIOS Glucose (Glucose Gel 15 Gm Gel..Gram.) 15 gm PO Q15M PRN; Protocol PRN Reason: per Hypoglycemia Standing Ord. Dextrose (D10) 250 mls @ 750 mls/hr IV Q15M PRN; Protocol PRN Reason: per Hypoglycemia Standing Ord. Cefazolin Sodium/Dextrose (Ancef) 2 gm in 50 mls @ 100 mls/hr IV Q8H [facility] Last Infusion: 03/10/24 06:33 Dose: Infused Documented By: SENAIT Insulin Human Lispro (Insulin Lispro 100 Unit/Ml 3 Ml Vial) 0 unit SUBCUT Q6H [facility]; Protocol Last Admin: 03/10/24 07:06 Dose: Not Given Documented By: SENAIT Non-Admin Reason: No Insulin Coverage Lactulose (Lactulose 20 Gm/30 Ml Solution) 20 gm PO TID [facility] Last Admin: 03/10/24 09:00 Dose: 20 gm Documented By: TOBIN Ondansetron HCl (Ondansetron Hcl 4 Mg/2 Ml Vial) 4 mg IVPUSH Q6H PRN PRN Reason: Nausea and Vomiting Last Admin: 03/06/24 21:51 Dose: 4 mg Documented By: ALFONSO Oxycodone HCl (Oxycodone Hcl Immed Release 5 Mg Tablet) 2.5 mg PO Q6H PRN PRN Reason: Pain, Severe (Pain Scale 7-10) Last Admin: 03/10/24 02:38 Dose: 2.5 mg Documented By: CRISPIN Pantoprazole Sodium (Pantoprazole Sodium 40 Mg/10 Ml Vial) 40 mg IVPUSH BID@0630,1630 [facility] Last Admin: 03/10/24 05:39 Dose: 40 mg Documented By: SENAIT Polyethylene Glycol (Polyethylene Glycol 3350 17 Gm Powd.Pack) 17 gm PO DAILY PRN PRN Reason: Constipation Last Admin: 03/02/24 13:32 Dose: 17 gm Documented By: AINYA Quetiapine Fumarate (Quetiapine Fumarate 200 Mg Tablet) 200 mg PO BEDTIME [facility] Last Admin: 03/04/24 22:06 Dose: 200 mg Documented By: RIOS Quetiapine Fumarate (Quetiapine Fumarate 50 Mg Tablet) 50 mg PO BEDTIME [facility] Last Admin: 03/04/24 22:04 Dose: 50 mg Documented By: RIOS Rifaximin (Rifaximin 550 Mg Tablet) 550 mg PO BID [facility] Last Admin: 03/10/24 09:00 Dose: 550 mg Documented By: TOBIN Sodium Chloride (0.9 % Sodium Chloride Flush 3 Ml Syringe) 3 ml IVFLUSH QSHIFT [facility] Last Admin: 03/10/24 09:00 Dose: 3 ml Documented By: TOBIN Thiamine HCl (Thiamine Hcl 100 Mg Tablet) 100 mg PO DAILY [facility] Last Admin: 03/10/24 09:00 Dose: 100 mg Documented By: TOBIN Labs 03/10/24 05:51 03/10/24 05:51 Labs: Laboratory Results - last 24 hr 03/09/24 03/09/24 03/09/24 11:18 17:33 18:02 MCV MCH MCHC RDW Plt Count MPV Absolute Nucleated RBC Nucleated RBC % (auto) Anion Gap Estim Creat Clear Calc Estimated GFR POC Glucose 136 H 153 H Random Glucose Calcium Total Bilirubin Direct Bilirubin AST ALT Alkaline Phosphatase Total Protein Albumin Random Vancomycin 5.3 L 03/09/24 03/10/2403/10/24 20:24 00:41 05:51 MCV 100.8 H MCH 34.1 H MCHC 33.9 RDW 15.9 Plt Count 215 MPV 11.2 Absolute Nucleated RBC 0.000 Nucleated RBC % (auto) 0.0 Anion Gap 9 L Estim Creat Clear Calc 138.0 Estimated GFR > 60 POC Glucose 144 H 168 H Random Glucose 160 H Calcium 8.1 L Total Bilirubin 9.7 H Direct Bilirubin 6.3 H AST 57 H ALT 24 Alkaline Phosphatase 249 H Total Protein 6.7 Albumin 2.7 L Random Vancomycin 03/10/24 06:58 MCV MCH MCHC RDW Plt Count MPV Absolute Nucleated RBC Nucleated RBC % (auto) Anion Gap Estim Creat Clear Calc Estimated GFR POC Glucose 136 H Random Glucose Calcium Total Bilirubin Direct Bilirubin AST ALT Alkaline Phosphatase Total Protein Albumin Random Vancomycin Procedures Date of Service Date of Service: 03/10/24 Progress Note: A&P Assessment and plan (1) Ileus: Status: Acute Assessment and Plan: Overall clinical picture is with ileus from acute illness Passing flatus and has BMs No vomiting Still distended but soft Okay to try clear liquids today would recommend trying to get the patient out of bed Time Spent With Patient Time: Total time managing care of this patient today ____ minutes. Quality Stroke Does the patient have a stroke diagnosis?: No VTE Prior VTE?: No VTE Risk Level:: Medical - moderate - high VTE Device Contraindication: N/A - Device Ordered VTE Drug Contraindication: Treatment Not Indicated
[2024-03-10 11:29] LABS: Glucose, Whole Blood 162 mg/dL (60-115)
[2024-03-10] MEDS: ondansetron HCL 4 MG/2 ML VIAL IVPUSH (11:59)
[2024-03-10 18:02] LABS: Glucose, Whole Blood 133 mg/dL (60-115)
[2024-03-11] VITALS (8 sets, daily range): BP systolic 134–175; BP diastolic 76–105; PULSE 77–98; RESP 16–18; TEMP 36.1–36.5; O2SAT 92–97
[2024-03-11 00:20] LABS: Glucose, Whole Blood 111 mg/dL (60-115)
[2024-03-11 05:43] LABS: Glucose, Whole Blood 132 mg/dL (60-115)
[2024-03-11] MEDS: ceFAZolin Sodium/Dextrose,Iso 2 GM/50 ML PIGGYBACK IV ×3 (05:47→20:03)
[2024-03-11] MEDS: Pantoprazole Sodium 40 MG/10 ML VIAL IVPUSH ×2 (05:47→16:28)
[2024-03-11] MEDS: Fluticasone/Vilanterol 100/25 BLST.W.DEV 1 PUFF INHALE (07:37)
[2024-03-11] MEDS: Folic Acid 1 MG TABLET PO (09:09)
[2024-03-11] MEDS: Buprenorphine/Naloxone 8/2 mg FILM 1 FILM SUBLINGUAL ×3 (09:09→20:33)
[2024-03-11] MEDS: Lactulose 20 GM/30 ML SOLUTION PO ×3 (09:09→20:04)
[2024-03-11] MEDS: rifAXIMin 550 MG TABLET PO ×2 (09:09→20:03)
[2024-03-11] MEDS: Thiamine HCL 100 MG TABLET PO (09:09)
[2024-03-11] MEDS: Bictegrav/Emtricit/Tenofov Ala TABLET 1 TAB PO (09:09)
[2024-03-11] MEDS: Docusate Sodium 100 MG CAPSULE PO ×2 (09:09→20:04)
[2024-03-11] MEDS: 0.9 % Sodium Chloride Flush 3 ML SYRINGE IVFLUSH ×3 (09:10→20:04)
--- NOTE | 2024-03-11 10:20 | MHC.CM.PN ---
Per ROUNDS discussion, Patient is not yet medically cleared for dc (Abdominal CT today r/t c/o abdominal pain); [facility] has accepted Patient pending [facility] auth and [facility] is following. CM will follow.
[2024-03-11 11:28] LABS: Glucose, Whole Blood 156 mg/dL (60-115)
[2024-03-11] MEDS: Insulin Lispro 100 UNIT/ML 3 ML VIAL SUBCUT (11:44)
--- NOTE | 2024-03-11 12:16 | HO.PM.IMPN ---
Subjective Subjective Date of Service: 03/11/24 Interval History: seen and examined this morning follow up for bacteremia, acute hepatitis, bowel obstruction had large BM this am after suppository, abdomen still somewhat distended, but remains soft and nontender no sob, no cough Review of Systems Review of Systems: Yes all other systems are reviewed and are negative Constitutional Constitutional: Denies fever(s) Cardiovascular Cardiovascular: Denies chest pain, Denies palpitations and Denies dyspnea Respiratory Respiratory: Denies cough and Denies dyspnea Gastrointestinal Gastrointestinal: Denies abdominal pain, Denies nausea and Denies vomiting Endocrine Endocrine: Denies palpitations Physical Exam Vital Signs: Vital Signs: Last Vital Signs Temp 97.1 F 03/11/24 11:37 Pulse 88 03/11/24 11:37 Resp 17 03/11/24 11:37 BP 148/76 H 03/11/24 11:37 Pulse Ox 95 03/11/24 11:37 O2 Del Method Nasal Cannula 03/11/24 11:37 O2 Flow Rate 2 03/11/24 11:37 FiO2 45 03/06/24 11:35 BMI result Body Mass Index 26.6 Appearing in no acute distress lung sounds are clear to auscultation heart regular rate rhythm, clear S1, S2 positive bowel sounds, abdomen is soft, nontender neuro patient is alert x3, no focal deficits Objective Data Active Medications Albuterol/Ipratropium (Albuterol/Iprat 2.5/0.5mg 3 Ml Ampul.Neb) 3 ml INHALE Q6H PRN PRN Reason: Shortness of breaths Last Admin: 03/09/24 22:40 Dose: 3 ml Documented By: GUS Bictegravir/Emtricitabine/Tenofovir (Bictegrav/Emtricit/Tenofov Ala Tablet) 1 tab PO DAILY [facility] Last Admin: 03/11/24 09:09 Dose: 1 tab Documented By: ANIYA Bisacodyl (Bisacodyl 10 Mg Supp.Rect) 10 mg [place] DAILY PRN PRN Reason: Constipation Last Admin: 03/10/24 00:42 Dose: 10 mg Documented By: CRISPIN Buprenorphine/Naloxone (Buprenorphine/Naloxone 8/2 Mg Film) 1 film SUBLINGUAL TID [facility] Last Admin: 03/11/24 09:09 Dose: 1 film Documented By: ANIYA Bupropion HCl (Bupropion Hcl Xl 150 Mg Tab.Er.24h) 150 mg PO BID@0900,1500 [facility] Last Admin: 03/04/24 16:34 Dose: 150 mg Documented By: KARYN Buspirone HCl (Buspirone Hcl 10 Mg Tablet) 10 mg PO BID [facility] Last Admin: 03/04/24 22:03 Dose: 10 mg Documented By: RIOS Clopidogrel Bisulfate (Clopidogrel Bisulfate 75 Mg Tablet) 75 mg PO DAILY [facility] Last Admin: 03/04/24 07:59 Dose: 75 mg Documented By: JUNE Heparin Sodium (Porcine) 50 (units/ Sodium Chloride 5 ml) 0 units IVFLUSH TID [facility] Last Admin: 03/11/24 10:21 Dose: Not Given Documented By: ANIYA Non-Admin Reason: midline Docusate Sodium (Docusate Sodium 100 Mg Capsule) 100 mg PO BID [facility] Last Admin: 03/11/24 09:09 Dose: 100 mg Documented By: ANIYA Fluticasone/Vilanterol (Fluticasone/Vilanterol 100/25 Blst.W.Dev) 1 puff INHALE RDAILY [facility] Last Admin: 03/11/24 07:37 Dose: 1 puff Documented By: MARLENE Folic Acid (Folic Acid 1 Mg Tablet) 1 mg PO DAILY [facility] Last Admin: 03/11/24 09:09 Dose: 1 mg Documented By: ANIYA Gabapentin (Gabapentin 300 Mg Capsule) 300 mg PO TID [facility] Last Admin: 03/04/24 22:07 Dose: 300 mg Documented By: RIOS Glucose (Glucose Gel 15 Gm Gel..Gram.) 15 gm PO Q15M PRN; Protocol PRN Reason: per Hypoglycemia Standing Ord. Dextrose (D10) 250 mls @ 750 mls/hr IV Q15M PRN; Protocol PRN Reason: per Hypoglycemia Standing Ord. Cefazolin Sodium/Dextrose (Ancef) 2 gm in 50 mls @ 100 mls/hr IV Q8H [facility] Last Admin: 03/11/24 12:01 Dose: 100 mls/hr Documented By: ANIYA Insulin Human Lispro (Insulin Lispro 100 Unit/Ml 3 Ml Vial) 0 unit SUBCUT Q6H [facility]; Protocol Last Admin: 03/11/24 11:44 Dose: 2 unit Documented By: ANIYA Lactulose (Lactulose 20 Gm/30 Ml Solution) 20 gm PO TID [facility] Last Admin: 03/11/24 09:09 Dose: 20 gm Documented By: ANIYA Ondansetron HCl (Ondansetron Hcl 4 Mg/2 Ml Vial) 4 mg IVPUSH Q6H PRN PRN Reason: Nausea and Vomiting Last Admin: 03/10/24 11:59 Dose: 4 mg Documented By: TOBIN Oxycodone HCl (Oxycodone Hcl Immed Release 5 Mg Tablet) 2.5 mg PO Q6H PRN PRN Reason: Pain, Severe (Pain Scale 7-10) Last Admin: 03/10/24 21:40 Dose: 2.5 mg Documented By: SENAIT Pantoprazole Sodium (Pantoprazole Sodium 40 Mg/10 Ml Vial) 40 mg IVPUSH BID@0630,1630 [facility] Last Admin: 03/11/24 05:47 Dose: 40 mg Documented By: SENAIT Polyethylene Glycol (Polyethylene Glycol 3350 17 Gm Powd.Pack) 17 gm PO DAILY PRN PRN Reason: Constipation Last Admin: 03/02/24 13:32 Dose: 17 gm Documented By: ANIYA Quetiapine Fumarate (Quetiapine Fumarate 200 Mg Tablet) 200 mg PO BEDTIME [facility] Last Admin: 03/04/24 22:06 Dose: 200 mg Documented By: RIOS Quetiapine Fumarate (Quetiapine Fumarate 50 Mg Tablet) 50 mg PO BEDTIME [facility] Last Admin: 03/04/24 22:04 Dose: 50 mg Documented By: RIOS Rifaximin (Rifaximin 550 Mg Tablet) 550 mg PO BID [facility] Last Admin: 03/11/24 09:09 Dose: 550 mg Documented By: ANIYA Sodium Chloride (0.9 % Sodium Chloride Flush 3 Ml Syringe) 3 ml IVFLUSH QSHIFT [facility] Last Admin: 03/11/24 09:10 Dose: 3 ml Documented By: ANIYA Thiamine HCl (Thiamine Hcl 100 Mg Tablet) 100 mg PO DAILY [facility] Last Admin: 03/11/24 09:09 Dose: 100 mg Documented By: ANIYA Labs 03/10/24 05:51 03/10/24 05:51 Labs: Laboratory Results - last 24 hr 03/10/24 03/11/24 03/11/24 17:52 00:15 05:37 POC Glucose 133 H 111 132 H 03/11/24 11:20 POC Glucose 156 H Assessment and Plan (1) Ileus: Status: Acute (2) Alcoholic hepatitis: Status: Acute (3) Bacteremia: Status: Acute (4) Aspiration into airway: Status: Acute Plan 59-year-old homeless male with history of opiate dependence on Suboxone, HIV on Biktarvy, chronic hepatitis-C, depression, PTSD, liver cirrhosis, COPD who was brought to the emergency department for evaluation of encephalopathy found to have elevated ammonia levels Acute Toxic metabolic encephalopathy. resolved Multifactorial due to hepatic encephalopathy in the setting of liver cirrhosis and bacteremia continue rifaximin and lactulose ammonia trending down, asterixis resolved. continue lactulose to 20g TID to achieve 2-3 loose stools daily Aspiration pneumonia no fever chest ct showing consolidation s/p vancomycin and zosyn seen by speech, cleared for NDD3 diet when able to advance diet Acute hypoxic respiratory failure secondary to aspiration pna s/p high flow oxygen, now on 1-2L leukocytosis white count trending up. no change in condition, no fever no diarrhea, no urinary or respiratory symptoms on cefazolin for bacteremia monitor white count SBO, acute. Resolved s/p NGT, removed 03/07 general surgery following rec out of bed to chair advance diet Alcoholic hepatitis bili trending down GI input appreciated> no steroids in light of bacteremia MSSA bacteremia seen by ID, will need 4 weeks of IV abx, initially treated with IV vancomycin, transitioned to IV cefazolin 03/08. end date 03/29 midline placed 03/08 Echocardiogram without vegetations Acute lactic acidosis Likely secondary to decreased clearance due to underlying liver disease and not due to sepsis History of alcohol abuse No evidence of alcohol withdrawal at this time alcohol level negative in the emergency department CIWA has remained low, will d/c CIWA History of opiate abuse Denies the use of intravenous drugs reports using pills only Continue baseline Suboxone Addiction medicine consult- plan to return to [facility] following STR Tobacco dependence Smoking cessation advised NRT Thrombocytopenia Likely related to underlying liver disease platelets have improved Liver cirrhosis Has history of chronic hepatitis-C as well as alcohol abuse LFTs chronically elevated Outpatient follow-up Normocytic anemia Likely due to chronic alcohol use H/H stable Above transfusion threshold Mood Resume baseline medications bupropion, buspirone, seroquel when able to take po HIV continue biktarvy outpatient follow up COPD no acute exacerbation continue baseline inhalers DVT prophylaxis SCD boots Healthcare proxy - Brother Garfield HCP Disposition-PT rec STR Attending Dr. Ambrose Patient requires ongoing inpatient stay for management of autte hepatitis, bacteremia requiring IV antibiotics, safe disposition Quality Stroke Does the patient have a stroke diagnosis?: No VTE Prior VTE?: No VTE Risk Level:: Medical - moderate - high VTE Device Contraindication: N/A - Device Ordered VTE Drug Contraindication: Treatment Not Indicated
--- NOTE | 2024-03-11 12:41 | P.PNGS_ITS ---
Subjective Subjective Date of Service: 03/11/24 Interval history: Mental status the same complains of abdominal bloating No vomiting reported Had BMs yesterday Physical Exam 2 Vital Signs: Vital Signs: Last Vital Signs Temp 97.1 F 03/11/24 11:37 Pulse 88 03/11/24 11:37 Resp 17 03/11/24 11:37 BP 148/76 H 03/11/24 11:37 Pulse Ox 95 03/11/24 11:37 O2 Del Method Nasal Cannula 03/11/24 11:37 O2 Flow Rate 2 03/11/24 11:37 FiO2 45 03/06/24 11:35 BMI result Body Mass Index 26.6 Const: Other: Mental status seems the same, answering questions with flight of ideas Resp: Effort & Inspection: normal respiratory effort Cardio: Rate: regular rate GI: Other: Distended but soft, no guarding, no rebound, no significant tenderness currently Objective Data Active Medications Albuterol/Ipratropium (Albuterol/Iprat 2.5/0.5mg 3 Ml Ampul.Neb) 3 ml INHALE Q6H PRN PRN Reason: Shortness of breaths Last Admin: 03/09/24 22:40 Dose: 3 ml Documented By: GUS Bictegravir/Emtricitabine/Tenofovir (Bictegrav/Emtricit/Tenofov Ala Tablet) 1 tab PO DAILY [facility] Last Admin: 03/11/24 09:09 Dose: 1 tab Documented By: ANIYA Bisacodyl (Bisacodyl 10 Mg Supp.Rect) 10 mg [place] DAILY PRN PRN Reason: Constipation Last Admin: 03/10/24 00:42 Dose: 10 mg Documented By: CRISPIN Buprenorphine/Naloxone (Buprenorphine/Naloxone 8/2 Mg Film) 1 film SUBLINGUAL TID [facility] Last Admin: 03/11/24 09:09 Dose: 1 film Documented By: ANIYA Bupropion HCl (Bupropion Hcl Xl 150 Mg Tab.Er.24h) 150 mg PO BID@0900,1500 [facility] Last Admin: 03/04/24 16:34 Dose: 150 mg Documented By: KARYN Buspirone HCl (Buspirone Hcl 10 Mg Tablet) 10 mg PO BID [facility] Last Admin: 03/04/24 22:03 Dose: 10 mg Documented By: RIOS Clopidogrel Bisulfate (Clopidogrel Bisulfate 75 Mg Tablet) 75 mg PO DAILY [facility] Last Admin: 03/04/24 07:59 Dose: 75 mg Documented By: JUNE Heparin Sodium (Porcine) 50 (units/ Sodium Chloride 5 ml) 0 units IVFLUSH TID [facility] Last Admin: 03/11/24 10:21 Dose: Not Given Documented By: ANIYA Non-Admin Reason: midline Docusate Sodium (Docusate Sodium 100 Mg Capsule) 100 mg PO BID [facility] Last Admin: 03/11/24 09:09 Dose: 100 mg Documented By: ANIYA Fluticasone/Vilanterol (Fluticasone/Vilanterol 100/25 Blst.W.Dev) 1 puff INHALE RDAILY [facility] Last Admin: 03/11/24 07:37 Dose: 1 puff Documented By: MARLENE Folic Acid (Folic Acid 1 Mg Tablet) 1 mg PO DAILY [facility] Last Admin: 03/11/24 09:09 Dose: 1 mg Documented By: ANIYA Gabapentin (Gabapentin 300 Mg Capsule) 300 mg PO TID [facility] Last Admin: 03/04/24 22:07 Dose: 300 mg Documented By: RIOS Glucose (Glucose Gel 15 Gm Gel..Gram.) 15 gm PO Q15M PRN; Protocol PRN Reason: per Hypoglycemia Standing Ord. Dextrose (D10) 250 mls @ 750 mls/hr IV Q15M PRN; Protocol PRN Reason: per Hypoglycemia Standing Ord. Cefazolin Sodium/Dextrose (Ancef) 2 gm in 50 mls @ 100 mls/hr IV Q8H [facility] Last Admin: 03/11/24 12:01 Dose: 100 mls/hr Documented By: ANIYA Insulin Human Lispro (Insulin Lispro 100 Unit/Ml 3 Ml Vial) 0 unit SUBCUT Q6H [facility]; Protocol Last Admin: 03/11/24 11:44 Dose: 2 unit Documented By: ANIYA Lactulose (Lactulose 20 Gm/30 Ml Solution) 20 gm PO TID [facility] Last Admin: 03/11/24 09:09 Dose: 20 gm Documented By: ANIYA Ondansetron HCl (Ondansetron Hcl 4 Mg/2 Ml Vial) 4 mg IVPUSH Q6H PRN PRN Reason: Nausea and Vomiting Last Admin: 03/10/24 11:59 Dose: 4 mg Documented By: TOBIN Oxycodone HCl (Oxycodone Hcl Immed Release 5 Mg Tablet) 2.5 mg PO Q6H PRN PRN Reason: Pain, Severe (Pain Scale 7-10) Last Admin: 03/10/24 21:40 Dose: 2.5 mg Documented By: SENAIT Pantoprazole Sodium (Pantoprazole Sodium 40 Mg/10 Ml Vial) 40 mg IVPUSH BID@0630,1630 [facility] Last Admin: 03/11/24 05:47 Dose: 40 mg Documented By: SENAIT Polyethylene Glycol (Polyethylene Glycol 3350 17 Gm Powd.Pack) 17 gm PO DAILY PRN PRN Reason: Constipation Last Admin: 03/02/24 13:32 Dose: 17 gm Documented By: ANIYA Quetiapine Fumarate (Quetiapine Fumarate 200 Mg Tablet) 200 mg PO BEDTIME [facility] Last Admin: 03/04/24 22:06 Dose: 200 mg Documented By: RIOS Quetiapine Fumarate (Quetiapine Fumarate 50 Mg Tablet) 50 mg PO BEDTIME [facility] Last Admin: 03/04/24 22:04 Dose: 50 mg Documented By: RIOS Rifaximin (Rifaximin 550 Mg Tablet) 550 mg PO BID [facility] Last Admin: 03/11/24 09:09 Dose: 550 mg Documented By: ANIYA Sodium Chloride (0.9 % Sodium Chloride Flush 3 Ml Syringe) 3 ml IVFLUSH QSHIFT [facility] Last Admin: 03/11/24 09:10 Dose: 3 ml Documented By: ANIYA Thiamine HCl (Thiamine Hcl 100 Mg Tablet) 100 mg PO DAILY [facility] Last Admin: 03/11/24 09:09 Dose: 100 mg Documented By: ANIYA Labs 03/10/24 05:51 03/10/24 05:51 Labs: Laboratory Results - last 24 hr 03/10/24 03/11/24 03/11/24 17:52 00:15 05:37 POC Glucose 133 H 111 132 H 03/11/24 11:20 POC Glucose 156 H Procedures Date of Service Date of Service: 03/11/24 Progress Note: A&P Assessment and plan (1) Ileus: Status: Acute Assessment and Plan: CT repeated this morning - no signs of obstruction Has significant ascites For paracentesis Abdomen soft and benign On clear liquids, okay to advance as tolerated Still with elevated bilirubin, still appears jaundice Appears to have some degree of encephalopathy Time Spent With Patient Time: Total time managing care of this patient today ____ minutes. Quality Stroke Does the patient have a stroke diagnosis?: No VTE Prior VTE?: No VTE Risk Level:: Medical - moderate - high VTE Device Contraindication: N/A - Device Ordered VTE Drug Contraindication: Treatment Not Indicated
[2024-03-11] MEDS: oxyCODONE HCl Immed Release 5 MG TABLET 2.5 MG PO ×2 (12:54→20:03)
--- NOTE | 2024-03-11 13:41 | MHC.SLORD ---
Speech Language Pathology Order Status: [employer] consult on hold until patient is advanced from clear liquid diet. Patient has been tolerating thin liquids without difficulty.
--- NOTE | 2024-03-11 16:51 | P.CNPS_ITS ---
History of Present Illness Date of Service: 03/11/24 Chief Complaint: Hepatic encephalopathy Reason for Consult: depression Requesting physician: Barbara Galeano Discussed with referring provider: Yes Sources of Information: patient interviewed and chart reviewed HPI Narrative: Patient is a 59 year old male with history of opiate dependence on Suboxone, HIV on Biktarvy, chronic hepatitis-C, depression, PTSD, liver cirrhosis, COPD who was brought to the emergency department for evaluation of encephalopathy found to have elevated ammonia levels. Psychiatric consult for: depression During psychiatric assessment, pt presents alert, oriented, calm, cooperative and tearful at times. Pt reports feeling upset about everything ; pt stated, I was taking my medications as prescribed before I came here. My sister 2 years ago from an overdose and the next day I found my father from a heart attack. I'm still recovering from that. I was drinking a lot of alcohol and I guess my drinking got too much. I didn't realize that alcohol can do this to you . Pt reports he is concerned regarding his health condition. Pt stated, I don't even know if I'm going to live. I don't want to here . Pt declined to have a therapist referral. Pt declined to speak with clergy. Pt denies SI/HI/VH/AH. He was encouraged to tell his provider or staff if feeling unsafe. Past Psychiatric History: Past psychiatric hospitalizations History of ECT 2019 Multiple medication trials Medical Evaluation Reviewed: Yes Review of Systems Constitutional: Reports as per HPI Eyes: Reports as per HPI Reports as per HPI Cardiovascular: Reports as per HPI Respiratory: Reports as per HPI Gastrointestinal: Reports as per HPI Genitourinary: Reports as per HPI Musculoskeletal: Reports as per HPI Skin/Breast: Reports as per HPI Reports as per HPI Psychiatric: Reports as per HPI Endocrine: Reports as per HPI Hematologic/Lymphatic: Reports as per HPI Allergic/Immunologic: Reports as per HPI [facility] Medical History Cocaine abuse Opioid abuse MDD (major depressive disorder), recurrent severe, without psychosis Coccygeal pain Acute foot pain IBS (irritable bowel syndrome) COPD (chronic obstructive pulmonary disease) Prediabetes Colitis Hypertension PTSD (post-traumatic stress disorder) Osteoarthritis of both hips Opioid dependence Hepatitis C HIV infection Surgical History Status post right shoulder hemiarthroplasty History of right hip replacement Family History: Sister: Bipolar disorder Social History: Raised his kids and [facility] 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 Trauma History: Childhood trauma Diagnostics Vital Signs (24Hr): Vital Signs - 24 hr 03/10/24 20:00 03/11/24 00:00 03/11/24 04:00 Temperature 97.6 F 97.7 F 96.9 F Pulse Rate 80 84 88 Respiratory Rate 18 18 18 Blood Pressure 140/90 H 148/88 H 155/88 H Pulse Oximetry 95 97 92 Oxygen Delivery Method Room Air Nasal Cannula Room Air Oxygen Flow Rate 3 03/11/24 07:37 03/11/24 07:40 03/11/24 11:37 Temperature 97.5 F 97.1 F Pulse Rate 77 84 88 Respiratory Rate 16 16 17 Blood Pressure 134/82 148/76 H Pulse Oximetry 94 95 Oxygen Delivery Method Nasal Cannula Nasal Cannula Oxygen Flow Rate 2.5 2 03/11/24 15:41 03/11/24 15:53 Temperature 97.0 F Pulse Rate 88 92 Respiratory Rate 17 Blood Pressure 148/76 H 157/89 H Pulse Oximetry 95 92 Oxygen Delivery Method Room Air Oxygen Flow Rate BMI result Body Mass Index 26.6 Labs 03/10/24 05:51 03/10/24 05:51 Labs: Laboratory Results - last 48 hr 03/09/24 03/09/24 03/09/24 17:33 18:02 20:24 WBC RBC Hgb Hct MCV MCH MCHC RDW Plt Count MPV Absolute Nucleated RBC Nucleated RBC % (auto) Sodium Potassium Chloride Carbon Dioxide Anion Gap BUN Creatinine Estim Creat Clear Calc Estimated GFR POC Glucose 153 H 144 H Random Glucose Calcium Total Bilirubin Direct Bilirubin AST ALT Alkaline Phosphatase Total Protein Albumin Random Vancomycin 5.3 L 03/10/24 03/10/24 03/10/24 00:41 05:51 06:58 WBC 17.4 H RBC 3.69 L Hgb 12.6 L Hct 37.2 L MCV 100.8 H MCH 34.1 H MCHC 33.9 RDW 15.9 Plt Count 215 MPV 11.2 Absolute Nucleated RBC 0.000 Nucleated RBC % (auto) 0.0 Sodium 137 Potassium 3.4 Chloride 109 H Carbon Dioxide 22 Anion Gap 9 L BUN 12 Creatinine 0.64 Estim Creat Clear Calc 138.0 Estimated GFR > 60 POC Glucose 168 H 136 H Random Glucose 160 H Calcium 8.1 L Total Bilirubin 9.7 H Direct Bilirubin 6.3 H AST 57 H ALT 24 Alkaline Phosphatase 249 H Total Protein 6.7 Albumin 2.7 L Random Vancomycin 03/10/24 03/10/24 03/11/24 11:17 17:52 00:15 WBC RBC Hgb Hct MCV MCH MCHC RDW Plt Count MPV Absolute Nucleated RBC Nucleated RBC % (auto) Sodium Potassium Chloride Carbon Dioxide Anion Gap BUN Creatinine Estim Creat Clear Calc Estimated GFR POC Glucose 162 H 133 H 111 Random Glucose Calcium Total Bilirubin Direct Bilirubin AST ALT Alkaline Phosphatase Total Protein Albumin Random Vancomycin 03/11/24 03/11/24 05:37 11:20 WBC RBC Hgb Hct MCV MCH MCHC RDW Plt Count MPV Absolute Nucleated RBC Nucleated RBC % (auto) Sodium Potassium Chloride Carbon Dioxide Anion Gap BUN Creatinine Estim Creat Clear Calc Estimated GFR POC Glucose 132 H 156 H Random Glucose Calcium Total Bilirubin Direct Bilirubin AST ALT Alkaline Phosphatase Total Protein Albumin Random Vancomycin Imaging Radiology Impressions: ITS Impressions Abdomen/Pelvis CT 02/29/24 11:53 IMPRESSION: 1. No acute abnormality CT scan abdomen pelvis. 2. Compression deformity superior endplate of L4 slightly progressed since prior study September 06, 2022. 3. Nodular contour of liver suggesting underlying cirrhosis. 4. Small volume of abdominal ascites. 5. Nonobstructive stone upper pole left kidney. Fleischner guidelines were followed. Cervical Spine CT 02/29/24 11:53 IMPRESSION: Negative acute noncontrast CT the brain. Areas of white matter ischemic change are noted in this young patient. No acute fracture or dislocation in the cervical spine. Degenerative changes are noted. Chest CTA 02/29/24 11:53 IMPRESSION: No evidence of central or large segmental pulmonary emboli. This study is limited as described above. Head CT 02/29/24 11:53 IMPRESSION: Negative acute noncontrast CT the brain. Areas of white matter ischemic change are noted in this young patient. No acute fracture or dislocation in the cervical spine. Degenerative changes are noted. Abdomen Ultrasound 02/29/24 15:39 IMPRESSION: No fluid is seen in the abdomen on abdominal ultrasound. Technically limited study due to bowel gas. Ascites is noted on today's CT scan abdomen and pelvis which will be dictated in a separate report. Chest X-Ray 03/01/24 08:36 IMPRESSION: Low lung volumes and subsegmental atelectasis at the lung bases. Abdomen Ultrasound 03/01/24 16:39 IMPRESSION: Technically limited study revealed sludge in the gallbladder, cirrhotic liver and ascites is Chest X-Ray 03/03/24 06:50 IMPRESSION: Redemonstrated markedly low lung volumes with bibasilar atelectasis. No new, confluent consolidation. KUB X-Ray 03/03/24 12:34 IMPRESSION: Moderate gas seen throughout the colon and small bowel loops likely ileus. No air-fluid levels seen. Mild constipation Abdomen/Pelvis CT 03/04/24 17:50 IMPRESSION: Dilated fluid-filled stomach and small bowel new or increased from 02/29/2024. Differential would include ileus and distal small bowel obstruction. Cirrhotic-appearing liver. Increasing small amount of ascites. Small left renal stone and left renal cyst. Fleischner guidelines were followed. Chest CT 03/04/24 17:50 IMPRESSION: New right upper and bilateral lower lobe pneumonia. Question aspiration pneumonia. Dilated fluid-filled stomach is slightly distended fluid-filled esophagus. Fleischner guidelines were followed. Chest X-Ray 03/04/24 21:29 IMPRESSION: Lung volumes and increasing bilateral atelectasis or small infiltrates. Chest X-Ray 03/05/24 04:31 IMPRESSION: 1. Gastric tube in good position. 2. Low lung volumes and bibasilar atelectasis. 3. No significant pleural effusions. Abdomen Ultrasound 03/05/24 07:37 IMPRESSION: Small amount of ascites. KUB X-Ray 03/10/24 03:08 IMPRESSION: Nonspecific bowel pattern. Gas throughout large and small bowel loops. Abdomen/Pelvis CT 03/11/24 09:57 IMPRESSION: * Liver cirrhosis and significant increase in volume of ascitic fluid compared to 03/04/2024. * No evidence of small bowel obstruction on this current examination. * There is a stone of the posterior upper pole of the left kidney. No ureteral calculi or hydroureteronephrosis. * The bibasilar consolidation and groundglass pulmonary opacities remain similar in appearance compared to 03/04/2024. No new observations in the visualized lung bases. Mental Status Exam Mental Status Exam Narrative: Pt is alert and oriented; behavior is cooperative, calm, tearful at times; dressed in hospital attire; mood is described as upset ; eye contact appropriate; Speech is normal rate, volume and not pressured; thought process is organized; Thought content is on tx; otherwise pertinent to relevant topics and without any delusional content, paranoid ideations or grandiosity; denies SI/HI/VH/AH. Medications Medications Current Medications Albuterol/Ipratropium (Albuterol/Iprat 2.5/0.5mg 3 Ml Ampul.Neb) 3 ml INHALE Q6H PRN PRN Reason: Shortness of breaths Last Admin: 03/09/24 22:40 Dose: 3 ml Bictegravir/Emtricitabine/Tenofovir (Bictegrav/Emtricit/Tenofov Ala Tablet) 1 tab PO DAILY [facility] Last Admin: 03/11/24 09:09 Dose: 1 tab Bisacodyl (Bisacodyl 10 Mg Supp.Rect) 10 mg KS DAILY PRN PRN Reason: Constipation Last Admin: 03/10/24 00:42 Dose: 10 mg Buprenorphine/Naloxone (Buprenorphine/Naloxone 8/2 Mg Film) 1 film SUBLINGUAL TID [facility] Last Admin: 03/11/24 16:28 Dose: 1 film Bupropion HCl (Bupropion Hcl Xl 150 Mg Tab.Er.24h) 150 mg PO BID@0900,1500 [facility] Last Admin: 03/04/24 16:34 Dose: 150 mg Buspirone HCl (Buspirone Hcl 10 Mg Tablet) 10 mg PO BID [facility] Last Admin: 03/04/24 22:03 Dose: 10 mg Clopidogrel Bisulfate (Clopidogrel Bisulfate 75 Mg Tablet) 75 mg PO DAILY [facility] Last Admin: 03/04/24 07:59 Dose: 75 mg Heparin Sodium (Porcine) 50 (units/ Sodium Chloride 5 ml) 0 units IVFLUSH TID [facility] Last Admin: 03/11/24 16:08 Dose: Not Given Docusate Sodium (Docusate Sodium 100 Mg Capsule) 100 mg PO BID [facility] Last Admin: 03/11/24 09:09 Dose: 100 mg Fluticasone/Vilanterol (Fluticasone/Vilanterol 100/25 Blst.W.Dev) 1 puff INHALE RDAILY [facility] Last Admin: 03/11/24 07:37 Dose: 1 puff Folic Acid (Folic Acid 1 Mg Tablet) 1 mg PO DAILY [facility] Last Admin: 03/11/24 09:09 Dose: 1 mg Gabapentin (Gabapentin 300 Mg Capsule) 300 mg PO TID [facility] Last Admin: 03/04/24 22:07 Dose: 300 mg Glucose (Glucose Gel 15 Gm Gel..Gram.) 15 gm PO Q15M PRN; Protocol PRN Reason: per Hypoglycemia Standing Ord. Dextrose (D10) 250 mls @ 750 mls/hr IV Q15M PRN; Protocol PRN Reason: per Hypoglycemia Standing Ord. Cefazolin Sodium/Dextrose (Ancef) 2 gm in 50 mls @ 100 mls/hr IV Q8H [facility] Last Infusion: 03/11/24 12:46 Dose: Infused Insulin Human Lispro (Insulin Lispro 100 Unit/Ml 3 Ml Vial) 0 unit SUBCUT Q6H [facility]; Protocol Last Admin: 03/11/24 11:44 Dose: 2 unit Lactulose (Lactulose 20 Gm/30 Ml Solution) 20 gm PO TID [facility] Last Admin: 03/11/24 16:28 Dose: 20 gm Ondansetron HCl (Ondansetron Hcl 4 Mg/2 Ml Vial) 4 mg IVPUSH Q6H PRN PRN Reason: Nausea and Vomiting Last Admin: 03/10/24 11:59 Dose: 4 mg Oxycodone HCl (Oxycodone Hcl Immed Release 5 Mg Tablet) 2.5 mg PO Q6H PRN PRN Reason: Pain, Severe (Pain Scale 7-10) Last Admin: 03/11/24 12:54 Dose: 2.5 mg Pantoprazole Sodium (Pantoprazole Sodium 40 Mg/10 Ml Vial) 40 mg IVPUSH BID@0630,1630 [facility] Last Admin: 03/11/24 16:28 Dose: 40 mg Polyethylene Glycol (Polyethylene Glycol 3350 17 Gm Powd.Pack) 17 gm PO DAILY PRN PRN Reason: Constipation Last Admin: 03/02/24 13:32 Dose: 17 gm Quetiapine Fumarate (Quetiapine Fumarate 200 Mg Tablet) 200 mg PO BEDTIME [facility] Last Admin: 03/04/24 22:06 Dose: 200 mg Quetiapine Fumarate (Quetiapine Fumarate 50 Mg Tablet) 50 mg PO BEDTIME [facility] Last Admin: 03/04/24 22:04 Dose: 50 mg Rifaximin (Rifaximin 550 Mg Tablet) 550 mg PO BID [facility] Last Admin: 03/11/24 09:09 Dose: 550 mg Sodium Chloride (0.9 % Sodium Chloride Flush 3 Ml Syringe) 3 ml IVFLUSH QSHIFT [facility] Last Admin: 03/11/24 16:28 Dose: 3 ml Thiamine HCl (Thiamine Hcl 100 Mg Tablet) 100 mg PO DAILY [facility] Last Admin: 03/11/24 09:09 Dose: 100 mg Allergies Allergies Allergy/AdvReac Type Severity Reaction Status Date / Time ketorolac [From Toradol] AdvReac Itching Verified 02/29/24 09:47 Assessment & Plan Assessment & Plan (1) MDD (major depressive disorder), recurrent severe, without psychosis: Status: Acute Code(s): F33.2 - Major depressive disorder, recurrent severe without psychotic features (2) PTSD (post-traumatic stress disorder): Status: Acute Code(s): F43.10 - Post-traumatic stress disorder, unspecified (3) Opioid abuse: Status: Acute Code(s): F11.10 - Opioid abuse, uncomplicated (4) Cocaine abuse: Status: Acute Code(s): F14.10 - Cocaine abuse, uncomplicated Plan During psychiatric assessment, pt presents alert, oriented, calm, cooperative and tearful at times. Pt reports feeling upset about everything ; pt stated, I was taking my medications as prescribed before I came here. My sister 2 years ago from an overdose and the next day I found my father from a heart attack. I'm still recovering from that. I was drinking a lot of alcohol and I guess my drinking got too much. I didn't realize that alcohol can do this to you . Pt reports he is concerned regarding his health condition. Pt stated, I don't even know if I'm going to live. I don't want to here . Pt declined to have a therapist referral. Pt declined to speak with clergy. Pt denies SI/HI/VH/AH. He was encouraged to tell his provider or staff if feeling unsafe. Recommendations: Continue home psychiatric medications Consult Care Team for an assessment if inpatient psychiatric admission is needed Total time managing care of this patient today _30___ minutes. Patient educated on: diagnosis, medication risk/benefits and therapeutic strategies Informed Consent: understands
[2024-03-11 18:40] LABS: Glucose, Whole Blood 141 mg/dL (60-115)
[2024-03-11] MEDS: oxyCODONE HCl Immed Release 5 MG TABLET PO (22:17)
[2024-03-12 00:04] LABS: Glucose, Whole Blood 147 mg/dL (60-115)
[2024-03-12 03:39] VITALS: BP 143/99; PULSE 93; RESP 18; TEMP 36; O2SAT 94
[2024-03-12] MEDS: ceFAZolin Sodium/Dextrose,Iso 2 GM/50 ML PIGGYBACK IV ×3 (04:11→21:13)
[2024-03-12 06:01] LABS: Glucose, Whole Blood 127 mg/dL (60-115)
[2024-03-12 06:19] LABS: Hematocrit 38.4 % (42.0-52.0); Hemoglobin 13.3 g/dl (14.0-18.0); Mean Corpuscular HGB Conc 34.6 g/dl (31.0-36.0); Mean Corpuscular Hemoglobin 34.5 pg (27.0-33.0); Mean Corpuscular Volume 99.7 fL (80.0-98.0); Mean Platelet Volume 11.4 fL (9.4-12.4); Platelet Count 258 X10*3/uL (160-400); Red Blood Count 3.85 X10*6/uL (4.60-5.80); White Blood Count 25.7 X10*3/uL (4.8-10.8)
[2024-03-12 06:26] LABS: Alanine Aminotransferase 19 U/L (0-40); Albumin Level 2.6 g/dL (3.5-5.0); Alkaline Phosphatase 287 U/L (39-117); Anion Gap 12 (12-20); Aspartate Amino Transferase 67 U/L (5-37); Bilirubin Direct 6.2 mg/dL (0.0-0.5); Bilirubin Total 9.4 mg/dL (0.0-1.0); Blood Urea Nitrogen 16 mg/dL (9-16); Calcium 8.5 mg/dL (8.4-10.2); Carbon Dioxide 20 mmol/L (22-29); Chloride 106 mmol/L (96-108); Creatinine Clr Calc Pharmacy 129.9; Estimated Glomerular Filt Rate > 60; Glucose Random 133 mg/dL (60-115); INTERNATIONAL NORM RATIO 2.9 (0.9-1.1); Potassium 3.9 mmol/L (3.3-5.1); Prothrombin Time 35.3 SEC (11.1-13.3); Sodium 134 mmol/L (135-145); Total Protein 7.2 g/dL (6.5-8.0)
[2024-03-12 07:50] LABS: Glucose, Whole Blood 133 mg/dL (60-115)
[2024-03-12] MEDS: Fluticasone/Vilanterol 100/25 BLST.W.DEV 1 PUFF INHALE (07:50)
[2024-03-12 07:53] VITALS: PULSE 83; RESP 16; O2SAT 91
[2024-03-12 07:55] VITALS: BP 162/95; PULSE 98; RESP 18; TEMP 36.6; O2SAT 92
[2024-03-12] MEDS: Albumin Human 25 % 100 ML IV ×4 (08:31→17:35)
[2024-03-12] MEDS: Lactulose 20 GM/30 ML SOLUTION PO ×3 (08:31→21:13)
[2024-03-12] MEDS: Pantoprazole Sodium 40 MG/10 ML VIAL IVPUSH (08:31)
[2024-03-12] MEDS: rifAXIMin 550 MG TABLET PO ×2 (08:32→21:13)
[2024-03-12] MEDS: Docusate Sodium 100 MG CAPSULE PO ×2 (08:32→21:13)
[2024-03-12] MEDS: Buprenorphine/Naloxone 8/2 mg FILM 1 FILM SUBLINGUAL ×3 (08:32→21:27)
[2024-03-12] MEDS: Thiamine HCL 100 MG TABLET PO (08:32)
[2024-03-12] MEDS: Bictegrav/Emtricit/Tenofov Ala TABLET 1 TAB PO (08:32)
[2024-03-12] MEDS: Folic Acid 1 MG TABLET PO (08:32)
[2024-03-12] MEDS: oxyCODONE HCl Immed Release 5 MG TABLET 2.5 MG PO ×2 (08:53→22:58)
[2024-03-12] MEDS: 0.9 % Sodium Chloride Flush 3 ML SYRINGE IVFLUSH (10:12)
[2024-03-12 11:32] LABS: Glucose, Whole Blood 134 mg/dL (60-115)
[2024-03-12 11:33] VITALS: BP 169/88; PULSE 85; RESP 18; TEMP 36.3; O2SAT 96
--- NOTE | 2024-03-12 11:52 | HO.PM.IMPN ---
Subjective Subjective Date of Service: 03/12/24 Interval History: seen and examined this morning follow up for bacteremia, acute hepatitis, bowel obstruction had large BM this am after suppository, abdomen still somewhat distended, but remains soft and nontender no sob, no cough Review of Systems Review of Systems: Yes all other systems are reviewed and are negative Constitutional Constitutional: Denies fever(s) Cardiovascular Cardiovascular: Denies chest pain, Denies palpitations and Denies dyspnea Respiratory Respiratory: Denies cough and Denies dyspnea Gastrointestinal Gastrointestinal: Denies abdominal pain, Denies nausea and Denies vomiting Endocrine Endocrine: Denies palpitations Physical Exam Vital Signs: Vital Signs: Last Vital Signs Temp 97.4 F 03/12/24 11:33 Pulse 85 03/12/24 11:33 Resp 18 03/12/24 11:33 BP 169/88 H 03/12/24 11:33 Pulse Ox 96 03/12/24 11:33 O2 Del Method Room Air 03/12/24 11:33 O2 Flow Rate 2 03/12/24 07:55 FiO2 45 03/06/24 11:35 BMI result Body Mass Index 26.6 Appearing in no acute distress Jaundice lung sounds are clear to auscultation heart regular rate rhythm, clear S1, S2 positive bowel sounds, abdomen is soft, nontender neuro patient is alert x3, no focal deficits Objective Data Active Medications Albuterol/Ipratropium (Albuterol/Iprat 2.5/0.5mg 3 Ml Ampul.Neb) 3 ml INHALE Q6H PRN PRN Reason: Shortness of breaths Last Admin: 03/09/24 22:40 Dose: 3 ml Documented By: GUS Bictegravir/Emtricitabine/Tenofovir (Bictegrav/Emtricit/Tenofov Ala Tablet) 1 tab PO DAILY [facility] Last Admin: 03/12/24 08:32 Dose: 1 tab Documented By: ANIYA Bisacodyl (Bisacodyl 10 Mg Supp.Rect) 10 mg [place] DAILY PRN PRN Reason: Constipation Last Admin: 03/10/24 00:42 Dose: 10 mg Documented By: CRISPNI Buprenorphine/Naloxone (Buprenorphine/Naloxone 8/2 Mg Film) 1 film SUBLINGUAL TID [facility]RIST[facility] Last Admin: 03/12/24 08:32 Dose: 1 film Documented By: ANIYA Bupropion HCl (Bupropion Hcl Xl 150 Mg Tab.Er.24h) 150 mg PO BID@0900,1500 [facility] Last Admin: 03/04/24 16:34 Dose: 150 mg Documented By: KARYN Buspirone HCl (Buspirone Hcl 10 Mg Tablet) 10 mg PO BID [facility] Last Admin: 03/04/24 22:03 Dose: 10 mg Documented By: RIOS Clopidogrel Bisulfate (Clopidogrel Bisulfate 75 Mg Tablet) 75 mg PO DAILY [facility] Last Admin: 03/04/24 07:59 Dose: 75 mg Documented By: JUNE Heparin Sodium (Porcine) 50 (units/ Sodium Chloride 5 ml) 0 units IVFLUSH TID [facility] Last Admin: 03/12/24 08:32 Dose: Not Given Documented By: ANIYA Non-Admin Reason: pt has a midline Docusate Sodium (Docusate Sodium 100 Mg Capsule) 100 mg PO BID [facility] Last Admin: 03/12/24 08:32 Dose: 100 mg Documented By: ANIYA Fluticasone/Vilanterol (Fluticasone/Vilanterol 100/25 Blst.W.Dev) 1 puff INHALE RDAILY [facility] Last Admin: 03/12/24 07:50 Dose: 1 puff Documented By: CYNTHIA Folic Acid (Folic Acid 1 Mg Tablet) 1 mg PO DAILY [facility] Last Admin: 03/12/24 08:32 Dose: 1 mg Documented By: ANIYA Gabapentin (Gabapentin 300 Mg Capsule) 300 mg PO TID [facility] Last Admin: 03/04/24 22:07 Dose: 300 mg Documented By: RIOS Glucose (Glucose Gel 15 Gm Gel..Gram.) 15 gm PO Q15M PRN; Protocol PRN Reason: per Hypoglycemia Standing Ord. Dextrose (D10) 250 mls @ 750 mls/hr IV Q15M PRN; Protocol PRN Reason: per Hypoglycemia Standing Ord. Cefazolin Sodium/Dextrose (Ancef) 2 gm in 50 mls @ 100 mls/hr IV Q8H [facility] Last Infusion: 03/12/24 05:16 Dose: Infused Documented By: WILIAN Insulin Human Lispro (Insulin Lispro 100 Unit/Ml 3 Ml Vial) 0 unit SUBCUT Q6H [facility]; Protocol Last Admin: 03/12/24 11:42 Dose: Not Given Documented By: ANIYA Non-Admin Reason: No Insulin Coverage Lactulose (Lactulose 20 Gm/30 Ml Solution) 20 gm PO TID [facility] Last Admin: 03/12/24 08:31 Dose: 20 gm Documented By: ANIYA Ondansetron HCl (Ondansetron Hcl 4 Mg/2 Ml Vial) 4 mg IVPUSH Q6H PRN PRN Reason: Nausea and Vomiting Last Admin: 03/10/24 11:59 Dose: 4 mg Documented By: TOBIN Oxycodone HCl (Oxycodone Hcl Immed Release 5 Mg Tablet) 2.5 mg PO Q6H PRN PRN Reason: Pain, Severe (Pain Scale 7-10) Last Admin: 03/12/24 08:53 Dose: 2.5 mg Documented By: ANIYA Pantoprazole Sodium (Pantoprazole Sodium 40 Mg/10 Ml Vial) 40 mg IVPUSH BID@0630,1630 [facility] Last Admin: 03/12/24 08:31 Dose: 40 mg Documented By: ANIYA Polyethylene Glycol (Polyethylene Glycol 3350 17 Gm Powd.Pack) 17 gm PO DAILY PRN PRN Reason: Constipation Last Admin: 03/02/24 13:32 Dose: 17 gm Documented By: ANIYA Quetiapine Fumarate (Quetiapine Fumarate 200 Mg Tablet) 200 mg PO BEDTIME [facility] Last Admin: 03/04/24 22:06 Dose: 200 mg Documented By: RIOS Quetiapine Fumarate (Quetiapine Fumarate 50 Mg Tablet) 50 mg PO BEDTIME [facility] Last Admin: 03/04/24 22:04 Dose: 50 mg Documented By: RIOS Rifaximin (Rifaximin 550 Mg Tablet) 550 mg PO BID [facility] Last Admin: 03/12/24 08:32 Dose: 550 mg Documented By: ANIYA Sodium Chloride (0.9 % Sodium Chloride Flush 3 Ml Syringe) 3 ml IVFLUSH QSHIFT [facility] Last Admin: 03/12/24 10:12 Dose: 3 ml Documented By: ANIYA Thiamine HCl (Thiamine Hcl 100 Mg Tablet) 100 mg PO DAILY [facility] Last Admin: 03/12/24 08:32 Dose: 100 mg Documented By: ANIYA Labs 03/12/24 05:26 03/12/24 05:26 Labs: Laboratory Results - last 24 hr 03/11/24 03/12/24 03/12/24 18:36 00:00 05:26 MCV 99.7 H MCH 34.5 H MCHC 34.6 RDW 16.0 Plt Count 258 MPV 11.4 Absolute Nucleated RBC 0.000 Nucleated RBC % (auto) 0.0 PT 35.3 H D INR 2.9 H Anion Gap 12 Estim Creat Clear Calc 129.9 Estimated GFR > 60 POC Glucose 141 H 147 H Random Glucose 133 H Calcium 8.5 Total Bilirubin 9.4 H Direct Bilirubin 6.2 H AST 67 H ALT 19 Alkaline Phosphatase 287 H Total Protein 7.2 Albumin 2.6 L 03/12/24 03/12/24 03/12/24 05:57 07:26 11:22 MCV MCH MCHC RDW Plt Count MPV Absolute Nucleated RBC Nucleated RBC % (auto) PT INR Anion Gap Estim Creat Clear Calc Estimated GFR POC Glucose 127 H 133 H 134 H Random Glucose Calcium Total Bilirubin Direct Bilirubin AST ALT Alkaline Phosphatase Total Protein Albumin Assessment and Plan (1) Ileus: Status: Acute (2) Alcoholic hepatitis: Status: Acute (3) Bacteremia: Status: Acute (4) Aspiration into airway: Status: Acute Plan 59-year-old homeless male with history of opiate dependence on Suboxone, HIV on Biktarvy, chronic hepatitis-C, depression, PTSD, liver cirrhosis, COPD who was brought to the emergency department for evaluation of encephalopathy found to have elevated ammonia levels Acute Toxic metabolic encephalopathy. resolved Multifactorial due to hepatic encephalopathy in the setting of liver cirrhosis and bacteremia continue rifaximin and lactulose ammonia trending down, asterixis resolved. continue lactulose to 20g TID to achieve 2-3 loose stools daily Aspiration pneumonia no fever chest ct showing consolidation s/p vancomycin and zosyn seen by speech, cleared for NDD3 diet when able to advance diet Acute hypoxic respiratory failure secondary to aspiration pna s/p high flow oxygen, now on 1-2L leukocytosis white count trending up. no change in condition, no fever no diarrhea, no urinary or respiratory symptoms on cefazolin for bacteremia monitor white count SBO, acute. Resolved s/p NGT, removed 03/07 general surgery following rec out of bed to chair advance diet Alcoholic hepatitis bili trending down GI input appreciated> no steroids in light of bacteremia MSSA bacteremia seen by ID, will need 4 weeks of IV abx, initially treated with IV vancomycin, transitioned to IV cefazolin 03/08. end date 03/29 midline placed 03/08 Echocardiogram without vegetations Acute lactic acidosis Likely secondary to decreased clearance due to underlying liver disease and not due to sepsis History of alcohol abuse No evidence of alcohol withdrawal at this time alcohol level negative in the emergency department CIWA has remained low, will d/c CIWA History of opiate abuse Denies the use of intravenous drugs reports using pills only Continue baseline Suboxone Addiction medicine consult- plan to return to [facility] following STR Tobacco dependence Smoking cessation advised NRT Thrombocytopenia Likely related to underlying liver disease platelets have improved Liver cirrhosis Has history of chronic hepatitis-C as well as alcohol abuse LFTs chronically elevated Outpatient follow-up Normocytic anemia Likely due to chronic alcohol use H/H stable Above transfusion threshold Mood Resume baseline medications bupropion, buspirone, seroquel when able to take po HIV continue biktarvy outpatient follow up COPD no acute exacerbation continue baseline inhalers DVT prophylaxis SCD boots Healthcare proxy - Brother Garfield HCP Disposition-PT rec STR Attending Dr. Ambrose Patient requires ongoing inpatient stay for management of autte hepatitis, bacteremia requiring IV antibiotics, safe disposition Quality Stroke Does the patient have a stroke diagnosis?: No VTE Prior VTE?: No VTE Risk Level:: Medical - moderate - high VTE Device Contraindication: N/A - Device Ordered VTE Drug Contraindication: Treatment Not Indicated
--- NOTE | 2024-03-12 13:37 | MHC.SL.DTX ---
Dysphagia Diet modifications: Last documented Solid diet consistencies: Last documented Liquid consistency: Clear Liquids Last documented Medication Administration: Changes made to current diet?: No: No changes at this time Liquid Consistency and Strategies: Liquid Intake Recommendation: Thin Compensatory Strategies for Safe Swallow: Small Sips Compensatory Strategies for Safe Swallow(b): Sitting Upright (90 deg) Small Bites and Sips Alternate Liquids/Solids Rate of Ingestion Change Solid Food Consistency: Dietary Recommendations: Clear Liquids Oral Medication Intake: Whole with Puree Strategies and Precautions to be Taken for Safe Swallow: Sitting Upright (90 deg) Small Bites and Sips Alternate Liquids/Solids Rate of Ingestion Change Supervision While Eating and/Drinking: Total Supervision (1:1) Foods to Avoid: Tough, difficult to chew solids Swallowing Recommended Treatments: Compens. Strategy Educat. Level of Impact on: Daily activities: Interpersonal interactions: Education: Employment: Community: Prognosis for Improvement: Recommendation for Speech: Inpatient Speech Therapy Comment: Patient presented with oral motor function mostly wfl, and mild oral dysphagia secondary to single upper denture. He is currently recommended to start diet of clear liquids only by GI, however when ready to advance to solids recommend chopped/advanced (NDD3), for ease of mastication. Pills whole in puree or liquid as preferred by patient. Patient presents as mildly confused and with generalized weakness, requires 1-1 assistance with meals at this time. MD/RN/RD notified of recommendations by secure text. ACCOUNT MAINTENANCE REPRESENTATIVE will continue to follow. Frequency/Duration: Date Range for Service Req: Timeline to reassess: Additional Comments: Surgical note recommends advanced diet as tolerated. Treatment: Pt is uncomfortable when repositioned. He is adjusted with assistance of a BILL CHECKER. He accepts a piece of soft bread with butter. However only takes x2 very small bites. When chewing and preparing, he states, I can't do it , I can't swallow . He eventually does but expresses discomfort and a cough. He is handed an emesis back and almost immediately brings back up the small amound of PO that he had just tried. ACCOUNT MAINTENANCE REPRESENTATIVE continues to recommend Liquid-Only diet at this time as Pt is still in esophageal distress. PA/RD notified. Assessment: Living Nurse Clinican/Clinical Fellow: No Supervisory Statement: I have reviewed and agree with the student/clinical fellow's documentation: N/A Speech Language Pathologist: Kelly Monreal M.A., [facility]-ACCOUNT MAINTENANCE REPRESENTATIVE
[2024-03-12] MEDS: Lidocaine HCl 1 % MPF 5 ML VIAL SUBCUT (15:23)
[2024-03-12 15:38] LABS: MN% 58.1 %; PMN% 41.9 %
[2024-03-12 15:55] VITALS: BP 160/82; PULSE 90; RESP 19; TEMP 36.3; O2SAT 99
[2024-03-12 16:20] LABS: RBC Peritoneal Fluid < 0.002 X10*6/uL
[2024-03-12 16:56] LABS: Glucose, Whole Blood 149 mg/dL (60-115)
[2024-03-12 17:38] LABS: BF Shift QC OK YES
[2024-03-12 17:39] LABS: Man Diluent Bkgrd OK YES
[2024-03-12 20:00] VITALS: BP 119/72; PULSE 73; RESP 18; TEMP 36.3; O2SAT 92
[2024-03-12 20:50] LABS: Glucose, Whole Blood 137 mg/dL (60-115)
[2024-03-12] MEDS: Heparin Sodium,Porcine Flush 50 UNITS, 0.9 % Sodium Chloride Flush 5 ML IVFLUSH (21:13)
[2024-03-13] VITALS (9 sets, daily range): BP systolic 105–152; BP diastolic 60–88; PULSE 20–89; RESP 17–20; TEMP 36.3–37.1; O2SAT 92–97
[2024-03-13] MEDS: 0.9 % Sodium Chloride Flush 3 ML SYRINGE IVFLUSH ×3 (02:28→17:53)
[2024-03-13] MEDS: ceFAZolin Sodium/Dextrose,Iso 2 GM/50 ML PIGGYBACK IV ×3 (06:32→20:02)
[2024-03-13 06:52] LABS: Hemoglobin 12.1 g/dl (14.0-18.0); Mean Corpuscular HGB Conc 34.6 g/dl (31.0-36.0); Mean Corpuscular Hemoglobin 34.4 pg (27.0-33.0); Mean Corpuscular Volume 99.4 fL (80.0-98.0); Platelet Count 213 X10*3/uL (160-400); Red Blood Count 3.52 X10*6/uL (4.60-5.80); Red Cell Distribution Width 16.3 % (11.0-16.0); White Blood Count 18.6 X10*3/uL (4.8-10.8)
[2024-03-13 07:15] LABS: Alanine Aminotransferase 13 U/L (0-40); Albumin Level 3.2 g/dL (3.5-5.0); Alkaline Phosphatase 210 U/L (39-117); Anion Gap 9 (12-20); Aspartate Amino Transferase 46 U/L (5-37); Bilirubin Direct 4.3 mg/dL (0.0-0.5); Bilirubin Total 7.5 mg/dL (0.0-1.0); Blood Urea Nitrogen 15 mg/dL (9-16); Calcium 8.5 mg/dL (8.4-10.2); Carbon Dioxide 26 mmol/L (22-29); Chloride 105 mmol/L (96-108); Creatinine Clr Calc Pharmacy 119.4; Estimated Glomerular Filt Rate > 60; Glucose Random 142 mg/dL (60-115); Potassium 3.5 mmol/L (3.3-5.1); Sodium 136 mmol/L (135-145); Total Protein 6.2 g/dL (6.5-8.0)
[2024-03-13 07:36] LABS: Glucose, Whole Blood 147 mg/dL (60-115)
[2024-03-13] MEDS: Fluticasone/Vilanterol 100/25 BLST.W.DEV 1 PUFF INHALE (07:55)
--- NOTE | 2024-03-13 09:35 | MHC.SLORD ---
Speech Language Pathology Order Status: Spoke w/ hospitalist RE: PO trials w/ [employer] yesterday w/ episode of emesis. Prior [employer] recommended CHOPPED/ADVANCED solids (NDD3) for ease of mastication and THIN liquids. Per hospitalist, she will advance diet from clear liquids for pt. [employer] to see pt for PO trials.
--- NOTE | 2024-03-13 09:38 | P.PNIM_ITS ---
Subjective Subjective Date of Service: 03/13/24 Interval History: seen and examined this morning follow up for bacteremia, acute hepatitis, bowel obstruction Feeling better, up in a chair no sob, no cough Review of Systems Review of Systems: Yes all other systems are reviewed and are negative Constitutional Constitutional: Denies fever(s) Cardiovascular Cardiovascular: Denies chest pain, Denies palpitations and Denies dyspnea Respiratory Respiratory: Denies cough and Denies dyspnea Gastrointestinal Gastrointestinal: Denies abdominal pain, Denies nausea and Denies vomiting Endocrine Endocrine: Denies palpitations Physical Exam 2 Vital Signs: Vital Signs: Last Vital Signs Temp 97.5 F 03/13/24 07:47 Pulse 82 03/13/24 09:21 Resp 18 03/13/24 07:58 BP 105/69 03/13/24 07:47 Pulse Ox 94 03/13/24 07:47 O2 Del Method Room Air 03/13/24 07:47 O2 Flow Rate 2 03/12/24 15:55 FiO2 45 03/06/24 11:35 BMI result Body Mass Index 26.6 Appearing in no acute distress mild jaundice lung sounds are clear to auscultation heart regular rate rhythm, clear S1, S2 positive bowel sounds, abdomen is soft, nontender neuro patient is alert x3, no focal deficits Objective Data Active Medications Albuterol/Ipratropium (Albuterol/Iprat 2.5/0.5mg 3 Ml Ampul.Neb) 3 ml INHALE Q6H PRN PRN Reason: Shortness of breaths Last Admin: 03/09/24 22:40 Dose: 3 ml Documented By: GUS Bictegravir/Emtricitabine/Tenofovir (Bictegrav/Emtricit/Tenofov Ala Tablet) 1 tab PO DAILY [facility] Last Admin: 03/12/24 08:32 Dose: 1 tab Documented By: ANIYA Bisacodyl (Bisacodyl 10 Mg Supp.Rect) 10 mg [place] DAILY PRN PRN Reason: Constipation Last Admin: 03/10/24 00:42 Dose: 10 mg Documented By: CRISPIN Buprenorphine/Naloxone (Buprenorphine/Naloxone 8/2 Mg Film) 1 film SUBLINGUAL TID [facility] Last Admin: 03/12/24 21:27 Dose: 1 film Documented By: GEORGE Bupropion HCl (Bupropion Hcl Xl 150 Mg Tab.Er.24h) 150 mg PO BID@0900,1500 [facility] Last Admin: 03/04/24 16:34 Dose: 150 mg Documented By: KARYN Buspirone HCl (Buspirone Hcl 10 Mg Tablet) 10 mg PO BID [facility] Last Admin: 03/04/24 22:03 Dose: 10 mg Documented By: RIOS Clopidogrel Bisulfate (Clopidogrel Bisulfate 75 Mg Tablet) 75 mg PO DAILY [facility] Last Admin: 03/04/24 07:59 Dose: 75 mg Documented By: JUNE Heparin Sodium (Porcine) 50 (units/ Sodium Chloride 5 ml) 0 units IVFLUSH TID [facility] Last Admin: 03/12/24 21:13 Dose: 50 unit Documented By: GEORGE Docusate Sodium (Docusate Sodium 100 Mg Capsule) 100 mg PO BID [facility] Last Admin: 03/12/24 21:13 Dose: 100 mg Documented By: GEORGE Fluticasone/Vilanterol (Fluticasone/Vilanterol 100/25 Blst.W.Dev) 1 puff INHALE RDAILY [facility] Last Admin: 03/13/24 07:55 Dose: 1 puff Documented By: CYNTHIA Folic Acid (Folic Acid 1 Mg Tablet) 1 mg PO DAILY [facility] Last Admin: 03/12/24 08:32 Dose: 1 mg Documented By: ANIYA Gabapentin (Gabapentin 300 Mg Capsule) 300 mg PO TID [facility] Last Admin: 03/04/24 22:07 Dose: 300 mg Documented By: RIOS Glucose (Glucose Gel 15 Gm Gel..Gram.) 15 gm PO Q15M PRN; Protocol PRN Reason: per Hypoglycemia Standing Ord. Dextrose (D10) 250 mls @ 750 mls/hr IV Q15M PRN; Protocol PRN Reason: per Hypoglycemia Standing Ord. Cefazolin Sodium/Dextrose (Ancef) 2 gm in 50 mls @ 100 mls/hr IV Q8H [facility] Last Infusion: 03/13/24 07:29 Dose: Infused Documented By: GEORGE Insulin Human Lispro (Insulin Lispro 100 Unit/Ml 3 Ml Vial) 0 unit SUBCUT Q6H [facility]; Protocol Last Admin: 03/13/24 07:37 Dose: Not Given Documented By: ELISSA Non-Admin Reason: No Insulin Coverage Lactulose (Lactulose 20 Gm/30 Ml Solution) 20 gm PO TID [facility] Last Admin: 03/12/24 21:13 Dose: 20 gm Documented By: GEORGE Ondansetron HCl (Ondansetron Hcl 4 Mg/2 Ml Vial) 4 mg IVPUSH Q6H PRN PRN Reason: Nausea and Vomiting Last Admin: 03/10/24 11:59 Dose: 4 mg Documented By: TOBIN Oxycodone HCl (Oxycodone Hcl Immed Release 5 Mg Tablet) 2.5 mg PO Q6H PRN PRN Reason: Pain, Severe (Pain Scale 7-10) Last Admin: 03/12/24 22:58 Dose: 2.5 mg Documented By: GEORGE Polyethylene Glycol (Polyethylene Glycol 3350 17 Gm Powd.Pack) 17 gm PO DAILY PRN PRN Reason: Constipation Last Admin: 03/02/24 13:32 Dose: 17 gm Documented By: ANIYA Quetiapine Fumarate (Quetiapine Fumarate 200 Mg Tablet) 200 mg PO BEDTIME [facility] Last Admin: 03/04/24 22:06 Dose: 200 mg Documented By: RIOS Quetiapine Fumarate (Quetiapine Fumarate 50 Mg Tablet) 50 mg PO BEDTIME [facility] Last Admin: 03/04/24 22:04 Dose: 50 mg Documented By: RIOS Rifaximin (Rifaximin 550 Mg Tablet) 550 mg PO BID [facility] Last Admin: 03/12/24 21:13 Dose: 550 mg Documented By: GEORGE Sodium Chloride (0.9 % Sodium Chloride Flush 3 Ml Syringe) 3 ml IVFLUSH QSHIFT [facility] Last Admin: 03/13/24 02:28 Dose: 3 ml Documented By: GEORGE Thiamine HCl (Thiamine Hcl 100 Mg Tablet) 100 mg PO DAILY [facility] Last Admin: 03/12/24 08:32 Dose: 100 mg Documented By: ANIYA Labs 03/13/24 06:32 03/13/24 06:32 Labs: Laboratory Results - last 24 hr 03/12/24 03/12/24 03/12/24 11:22 14:45 16:40 MCV MCH MCHC RDW Plt Count MPV Absolute Nucleated RBC Nucleated RBC % (auto) Anion Gap Estim Creat Clear Calc Estimated GFR POC Glucose 134 H 149 H Random Glucose Calcium Total Bilirubin Direct Bilirubin AST ALT Alkaline Phosphatase Total Protein Albumin Peritoneal WBC 0.690 Peritoneal RBC < 0.002 Periton Neutrophils 6 Periton Lymphocytes 1 Peritoneal Monocytes 3 03/12/24 03/13/24 03/13/24 20:23 06:32 07:28 MCV 99.4 H MCH 34.4 H MCHC 34.6 RDW 16.3 H Plt Count 213 MPV 11.0 Absolute Nucleated RBC 0.000 Nucleated RBC % (auto) 0.0 Anion Gap 9 L Estim Creat Clear Calc 119.4 Estimated GFR > 60 POC Glucose 137 H 147 H Random Glucose 142 H Calcium 8.5 Total Bilirubin 7.5 H Direct Bilirubin 4.3 H AST 46 H ALT 13 Alkaline Phosphatase 210 H Total Protein 6.2 L Albumin 3.2 L Peritoneal WBC Peritoneal RBC Periton Neutrophils Periton Lymphocytes Peritoneal Monocytes Microbiology Microbiology Results: Microbiology 03/12/24 14:45 Gram Stain - Final Ascites Fluid Assessment and Plan (1) Ileus: Status: Acute (2) Alcoholic hepatitis: Status: Acute (3) Bacteremia: Status: Acute (4) Aspiration into airway: Status: Acute Plan 59-year-old homeless male with history of opiate dependence on Suboxone, HIV on Biktarvy, chronic hepatitis-C, depression, PTSD, liver cirrhosis, COPD who was brought to the emergency department for evaluation of encephalopathy found to have elevated ammonia levels Acute Toxic metabolic encephalopathy. resolved Multifactorial due to hepatic encephalopathy in the setting of liver cirrhosis and bacteremia continue rifaximin and lactulose ammonia trending down, asterixis resolved. continue lactulose to 20g TID to achieve 2-3 loose stools daily Aspiration pneumonia no fever chest ct showing consolidation s/p vancomycin and zosyn advance diet Acute hypoxic respiratory failure secondary to aspiration pna s/p high flow oxygen, now on 1-2L, wean down leukocytosis white count trending up. no change in condition, no fever no diarrhea, no urinary or respiratory symptoms on cefazolin for bacteremia monitor white count SBO, acute. Resolved s/p NGT, removed 03/07 general surgery following rec out of bed to chair Alcoholic hepatitis bili trending down GI input appreciated> no steroids in light of bacteremia MSSA bacteremia seen by ID, will need 4 weeks of IV abx, initially treated with IV vancomycin, transitioned to IV cefazolin 03/08. end date 03/29 midline placed 03/08 Echocardiogram without vegetations Acute lactic acidosis Likely secondary to decreased clearance due to underlying liver disease and not due to sepsis History of alcohol abuse No evidence of alcohol withdrawal at this time alcohol level negative in the emergency department CIWA has remained low, will d/c CIWA History of opiate abuse Denies the use of intravenous drugs reports using pills only Continue baseline Suboxone Addiction medicine consult- plan to return to [facility] following STR Tobacco dependence Smoking cessation advised NRT Thrombocytopenia Likely related to underlying liver disease platelets have improved Liver cirrhosis Has history of chronic hepatitis-C as well as alcohol abuse LFTs chronically elevated Outpatient follow-up Normocytic anemia Likely due to chronic alcohol use H/H stable Above transfusion threshold Mood baseline medications bupropion, buspirone resumed continue to hold seroquel as it can be sedating at bedtime, resume when pt at baseline mental status HIV continue biktarvy outpatient follow up COPD no acute exacerbation continue baseline inhalers DVT prophylaxis SCD boots Healthcare proxy - Brother Garfield HCP Disposition-PT rec STR Attending Dr. Arnol HEALY will need STR when medically clear, [facility] Patient requires ongoing inpatient stay for management of autte hepatitis, bacteremia requiring IV antibiotics, safe disposition Quality Stroke Does the patient have a stroke diagnosis?: No VTE Prior VTE?: No VTE Risk Level:: Medical - moderate - high VTE Device Contraindication: N/A - Device Ordered VTE Drug Contraindication: Treatment Not Indicated
--- NOTE | 2024-03-13 10:38 | MHC.CM.PN ---
Per ROUNDS discussion, Patient may be medically cleared for dc to STR/SNF in the next 1-2 days; [facility] is following and [facility] has accepted. CM will follow.
--- NOTE | 2024-03-13 10:40 | MHC.SL.SWA ---
Risk of Aspiration Due to: Medically Fragile History of Pneumonia Dysphasia Diet Status: NO CHANGE Liquid Consistency and Strategies for Safe Swallow: Liquid Intake Recommendation: Thin Liquid Intake Strategies: Small Sips Solid Food Consistency: Dietary Recommendations: Regular Oral Medication Intake: Whole with Liquid Please contact the pharmacy regarding appropriate crushable or liquid drug formulations that are available whenever modified delivery is recommended. Compensatory Strategies and Precautions to be Taken for Safe Swallow: Sitting Upright (90 deg) Small Bites and Sips Alternate Liquids/Solids Rate of Ingestion Change Supervision While Eating and Drinking for Safe Swallow: Total Supervision (1:1) Foods to Avoid: Tough, difficult to chew solids Swallowing Recommended Treatments: Compens. Strategy Educat. Recommendation for Speech: Inpatient Speech Therapy Comment: Recommend patient continue w/ REGULAR SOLIDS and thin liquids w/ pills whole in liquid. Ensure patient is given dentures prior to any solid PO to assist w/ mastication. Pt may require some assistance w/ tray set up (opening containers, putting in straw, cutting food). Recommend FULL SUPERVISION at this time to ensure toleration of diet w/o emesis. [place] Clinican/Clinical Fellow: No Supervisory Statement: I have reviewed and agree with the student/clinical fellow's documentation: N/A Speech Language Pathologist: Jena Black M.A., CCC-EDUCATIONAL THERAPY TEACHER
[2024-03-13 11:03] LABS: Glucose, Whole Blood 189 mg/dL (60-115)
[2024-03-13] MEDS: Lactulose 20 GM/30 ML SOLUTION PO ×3 (11:11→19:59)
[2024-03-13] MEDS: rifAXIMin 550 MG TABLET PO ×2 (11:11→19:59)
[2024-03-13] MEDS: Docusate Sodium 100 MG CAPSULE PO ×2 (11:11→19:59)
[2024-03-13] MEDS: Thiamine HCL 100 MG TABLET PO (11:11)
[2024-03-13] MEDS: Folic Acid 1 MG TABLET PO (11:11)
[2024-03-13] MEDS: Bictegrav/Emtricit/Tenofov Ala TABLET 1 TAB PO (11:11)
[2024-03-13] MEDS: Buprenorphine/Naloxone 8/2 mg FILM 1 FILM SUBLINGUAL ×3 (11:12→20:00)
[2024-03-13 11:18] LABS: Neutrophils Peritoneal Fluid 41 %
[2024-03-13 11:19] LABS: Lymphocyte Peritoneal Fl 3 %; Monocytes Peritoneal Fl 10 %; Other Peritioneal Fl 46 %
[2024-03-13] MEDS: Insulin Lispro 100 UNIT/ML 3 ML VIAL SUBCUT ×2 (12:37→17:53)
[2024-03-13] MEDS: buPROPion HCl XL 150 MG TAB.ER.24H PO (17:54)
[2024-03-13 18:11] LABS: Glucose, Whole Blood 202 mg/dL (60-115)
[2024-03-13] MEDS: oxyCODONE HCl Immed Release 5 MG TABLET 2.5 MG PO (18:16)
[2024-03-13] MEDS: busPIRone HCl 10 MG TABLET PO (21:49)
[2024-03-14] VITALS (7 sets, daily range): BP systolic 121–141; BP diastolic 71–85; PULSE 80–89; RESP 16–20; TEMP 36.4–36.9; O2SAT 90–93
[2024-03-14] MEDS: 0.9 % Sodium Chloride Flush 3 ML SYRINGE IVFLUSH ×3 (00:28→21:26)
[2024-03-14 00:39] LABS: Glucose, Whole Blood 152 mg/dL (60-115)
[2024-03-14] MEDS: Insulin Lispro 100 UNIT/ML 3 ML VIAL SUBCUT ×2 (00:41→12:30)
[2024-03-14] MEDS: ceFAZolin Sodium/Dextrose,Iso 2 GM/50 ML PIGGYBACK IV ×3 (05:42→21:30)
[2024-03-14 05:49] LABS: Glucose, Whole Blood 110 mg/dL (60-115)
[2024-03-14 07:34] LABS: Albumin Peritoneal Fluid 0.9
[2024-03-14 07:35] LABS: Total Protein Peritoneal Fluid 1.5
[2024-03-14] MEDS: Fluticasone/Vilanterol 100/25 BLST.W.DEV 1 PUFF INHALE (07:37)
[2024-03-14] MEDS: buPROPion HCl XL 150 MG TAB.ER.24H PO ×2 (08:31→14:33)
[2024-03-14] MEDS: Docusate Sodium 100 MG CAPSULE PO (08:31)
[2024-03-14] MEDS: Thiamine HCL 100 MG TABLET PO (08:31)
[2024-03-14] MEDS: Folic Acid 1 MG TABLET PO (08:32)
[2024-03-14] MEDS: Bictegrav/Emtricit/Tenofov Ala TABLET 1 TAB PO (08:32)
[2024-03-14] MEDS: rifAXIMin 550 MG TABLET PO ×2 (08:32→21:26)
[2024-03-14] MEDS: busPIRone HCl 10 MG TABLET PO ×2 (08:32→21:26)
[2024-03-14] MEDS: Buprenorphine/Naloxone 8/2 mg FILM 1 FILM SUBLINGUAL ×3 (09:58→21:26)
[2024-03-14] MEDS: Lactulose 20 GM/30 ML SOLUTION PO ×2 (09:58→21:26)
[2024-03-14] MEDS: oxyCODONE HCl Immed Release 5 MG TABLET PO (10:15)
--- NOTE | 2024-03-14 11:11 | MHC.SLORD ---
Speech Language Pathology Order Status: Patient is currently on least restrictive diet, presentation of swallow is mostly WFL, mild oral phase issues secondary to single upper denture (e.g. may have difficulty with tougher solids, crunchy textures). Patient is delighted by food offered, but has been having ongoing GI issues secondary to Ileus. No further REGIONAL CRA services needed at this time as patient is cleared to have least restrictive dietary textures. Continue with GI management of diet, re: most appropriate foods for GI toleration. d/c Speech.
[2024-03-14 11:50] LABS: Glucose, Whole Blood 197 mg/dL (60-115)
--- NOTE | 2024-03-14 13:40 | P.PNIM_ITS ---
Subjective Subjective Date of Service: 03/14/24 Interval History: Seen make this morning Follow-up for bacteremia, ascites, bowel obstruction Tolerating regular diet, having bowel movements Review of Systems Review of Systems: Yes all other systems are reviewed and are negative Constitutional Constitutional: Denies chills and Denies fever(s) Cardiovascular Cardiovascular: Denies chest pain and Denies dyspnea Respiratory Respiratory: Denies dyspnea Physical Exam 2 Vital Signs: Vital Signs: Last Vital Signs Temp 98.4 F 03/14/24 11:52 Pulse 89 03/14/24 11:52 Resp 18 03/14/24 11:52 BP 136/83 03/14/24 11:52 Pulse Ox 93 03/14/24 11:52 O2 Del Method Room Air 03/14/24 11:52 O2 Flow Rate 2 03/12/24 15:55 FiO2 45 03/06/24 11:35 BMI result Body Mass Index 26.6 Const: General: cooperative, comfortable, alert and awake Nutritional Appearance: average body habitus Orientation/consciousness: patient oriented x3 Resp: Effort & Inspection: normal respiratory effort, able to speak in complete sentences, no respiratory distress and no use of accessory muscles Cardio: Rate: regular rate GI: Other: Softly distended, +BS Neuro: Other: No asterixis General: patient oriented x3, moves all extremities and CN's II-XI intact bilaterally Extrem: General: Yes no pedal edema Objective Data Active Medications Albuterol/Ipratropium (Albuterol/Iprat 2.5/0.5mg 3 Ml Ampul.Neb) 3 ml INHALE Q6H PRN PRN Reason: Shortness of breaths Last Admin: 03/09/24 22:40 Dose: 3 ml Documented By: GUS Bictegravir/Emtricitabine/Tenofovir (Bictegrav/Emtricit/Tenofov Ala Tablet) 1 tab PO DAILY [facility] Last Admin: 03/14/24 08:32 Dose: 1 tab Documented By: REA Bisacodyl (Bisacodyl 10 Mg Supp.Rect) 10 mg SD DAILY PRN PRN Reason: Constipation Last Admin: 03/10/24 00:42 Dose: 10 mg Documented By: CRISPIN Buprenorphine/Naloxone (Buprenorphine/Naloxone 8/2 Mg Film) 1 film SUBLINGUAL TID [facility] Last Admin: 03/14/24 09:58 Dose: 1 film Documented By: REA Bupropion HCl (Bupropion Hcl Xl 150 Mg Tab.Er.24h) 150 mg PO BID@0900,1500 [facility] Last Admin: 03/14/24 08:31 Dose: 150 mg Documented By: REA Buspirone HCl (Buspirone Hcl 10 Mg Tablet) 10 mg PO BID [facility] Last Admin: 03/14/24 08:32 Dose: 10 mg Documented By: REA Clopidogrel Bisulfate (Clopidogrel Bisulfate 75 Mg Tablet) 75 mg PO DAILY [facility] Last Admin: 03/04/24 07:59 Dose: 75 mg Documented By: JUNE Heparin Sodium (Porcine) 50 (units/ Sodium Chloride 5 ml) 0 units IVFLUSH TID [facility] Last Admin: 03/14/24 08:40 Dose: Not Given Documented By: REA Non-Admin Reason: Midline. MD cat Docusate Sodium (Docusate Sodium 100 Mg Capsule) 100 mg PO BID [facility] Last Admin: 03/14/24 08:31 Dose: 100 mg Documented By: ERA Fluticasone/Vilanterol (Fluticasone/Vilanterol 100/25 Blst.W.Dev) 1 puff INHALE RDAILY [facility] Last Admin: 03/14/24 07:37 Dose: 1 puff Documented By: EDISON Folic Acid (Folic Acid 1 Mg Tablet) 1 mg PO DAILY [facility] Last Admin: 03/14/24 08:32 Dose: 1 mg Documented By: REA Gabapentin (Gabapentin 300 Mg Capsule) 300 mg PO TID [facility] Last Admin: 03/04/24 22:07 Dose: 300 mg Documented By: RIOS Glucose (Glucose Gel 15 Gm Gel..Gram.) 15 gm PO Q15M PRN; Protocol PRN Reason: per Hypoglycemia Standing Ord. Dextrose (D10) 250 mls @ 750 mls/hr IV Q15M PRN; Protocol PRN Reason: per Hypoglycemia Standing Ord. Cefazolin Sodium/Dextrose (Ancef) 2 gm in 50 mls @ 100 mls/hr IV Q8H [facility] Last Infusion: 03/14/24 13:38 Dose: Infused Documented By: REA Insulin Human Lispro (Insulin Lispro 100 Unit/Ml 3 Ml Vial) 0 unit SUBCUT Q6H [facility]; Protocol Last Admin: 03/14/24 12:30 Dose: 2 unit Documented By: REA Lactulose (Lactulose 20 Gm/30 Ml Solution) 20 gm PO TID [facility] Last Admin: 03/14/24 09:58 Dose: 20 gm Documented By: REA Ondansetron HCl (Ondansetron Hcl 4 Mg/2 Ml Vial) 4 mg IVPUSH Q6H PRN PRN Reason: Nausea and Vomiting Last Admin: 03/10/24 11:59 Dose: 4 mg Documented By: TOBIN Polyethylene Glycol (Polyethylene Glycol 3350 17 Gm Powd.Pack) 17 gm PO DAILY PRN PRN Reason: Constipation Last Admin: 03/02/24 13:32 Dose: 17 gm Documented By: ANIYA Quetiapine Fumarate (Quetiapine Fumarate 200 Mg Tablet) 200 mg PO BEDTIME [facility] Last Admin: 03/04/24 22:06 Dose: 200 mg Documented By: RIOS Quetiapine Fumarate (Quetiapine Fumarate 50 Mg Tablet) 50 mg PO BEDTIME [facility] Last Admin: 03/04/24 22:04 Dose: 50 mg Documented By: RIOS Rifaximin (Rifaximin 550 Mg Tablet) 550 mg PO BID [facility] Last Admin: 03/14/24 08:32 Dose: 550 mg Documented By: REA Sodium Chloride (0.9 % Sodium Chloride Flush 3 Ml Syringe) 3 ml IVFLUSH QSHIFT [facility] Last Admin: 03/14/24 08:37 Dose: 3 ml Documented By: REA Thiamine HCl (Thiamine Hcl 100 Mg Tablet) 100 mg PO DAILY [facility] Last Admin: 03/14/24 08:31 Dose: 100 mg Documented By: REA Labs 03/13/24 06:32 03/13/24 06:32 Labs: Laboratory Results - last 24 hr 03/12/24 03/13/24 03/14/24 14:45 17:51 00:34 POC Glucose 202 H 152 H Peritoneal Tot Protein 1.5 Peritoneal Albumin 0.9 03/14/24 03/14/24 05:44 11:46 POC Glucose 110 197 H Peritoneal Tot Protein Peritoneal Albumin Microbiology Microbiology Results: Microbiology 03/12/24 14:45 Gram Stain - Final Ascites Fluid Anaerobic Culture - Preliminary No growth to date. Body Fluid Culture - Final No growth after 2 days Assessment and Plan (1) Aspiration into airway: Status: Acute (2) Ileus: Status: Acute (3) Alcoholic hepatitis: Status: Acute (4) Bacteremia: Status: Acute (5) Acute hepatic encephalopathy: Status: Acute Plan 59-year-old homeless male with history of opiate dependence on Suboxone, HIV on Biktarvy, chronic hepatitis-C, depression, PTSD, liver cirrhosis, COPD who was brought to the emergency department for evaluation of encephalopathy found to have elevated ammonia levels Acute Toxic metabolic encephalopathy. resolved Multifactorial due to hepatic encephalopathy in the setting of liver cirrhosis and bacteremia continue rifaximin and lactulose ammonia trending down, asterixis resolved. continue lactulose to 20g TID to achieve 2-3 loose stools daily Aspiration pneumonia no fever chest ct showing consolidation s/p vancomycin and zosyn advance diet Acute hypoxic respiratory failure secondary to aspiration pna s/p high flow oxygen, now on room air leukocytosis white count trending up. no change in condition, no fever no diarrhea, no urinary or respiratory symptoms on cefazolin for bacteremia monitor white count SBO, acute. Resolved s/p NGT, removed 03/07 general surgery following rec out of bed to chair Alcoholic hepatitis bili trending down GI input appreciated> no steroids in light of bacteremia MSSA bacteremia seen by ID, will need 4 weeks of IV abx, initially treated with IV vancomycin, transitioned to IV cefazolin 03/08. end date 03/29 midline placed 03/08 Echocardiogram without vegetations Acute lactic acidosis Likely secondary to decreased clearance due to underlying liver disease and not due to sepsis History of alcohol abuse No evidence of alcohol withdrawal at this time alcohol level negative in the emergency department CIWA has remained low, will d/c CIWA History of opiate abuse Denies the use of intravenous drugs reports using pills only Continue baseline Suboxone Addiction medicine consult- plan to return to [facility] following STR Tobacco dependence Smoking cessation advised NRT Thrombocytopenia Likely related to underlying liver disease platelets have improved Liver cirrhosis Has history of chronic hepatitis-C as well as alcohol abuse LFTs chronically elevated Outpatient follow-up Normocytic anemia Likely due to chronic alcohol use H/H stable Above transfusion threshold Mood baseline medications bupropion, buspirone resumed continue to hold seroquel as it can be sedating at bedtime, resume when pt at baseline mental status HIV continue biktarvy outpatient follow up COPD no acute exacerbation continue baseline inhalers DVT prophylaxis SCD boots Healthcare proxy - Brother Garfield HCP Disposition-PT rec STR Attending Dr. Arnol HEALY will need STR when medically clear, likely [facility] Patient requires ongoing inpatient stay for management of acute hepatitis, bacteremia requiring IV antibiotics, safe disposition Quality Stroke Does the patient have a stroke diagnosis?: No VTE Prior VTE?: No VTE Risk Level:: Medical - moderate - high VTE Device Contraindication: N/A - Device Ordered VTE Drug Contraindication: Treatment Not Indicated
[2024-03-14] MEDS: Heparin Sodium,Porcine Flush 50 UNITS, 0.9 % Sodium Chloride Flush 5 ML IVFLUSH (14:36)
[2024-03-14 16:51] LABS: Glucose, Whole Blood 121 mg/dL (60-115)
[2024-03-14 21:00] LABS: Glucose, Whole Blood 124 mg/dL (60-115)
[2024-03-15] VITALS (8 sets, daily range): BP systolic 106–138; BP diastolic 69–82; PULSE 71–86; RESP 14–20; TEMP 36.6–36.8; O2SAT 90–93
[2024-03-15 00:13] LABS: Glucose, Whole Blood 142 mg/dL (60-115)
[2024-03-15] MEDS: oxyCODONE HCl Immed Release 5 MG TABLET PO (00:38)
[2024-03-15] MEDS: ceFAZolin Sodium/Dextrose,Iso 2 GM/50 ML PIGGYBACK IV ×3 (05:45→22:36)
[2024-03-15 05:55] LABS: Glucose, Whole Blood 116 mg/dL (60-115)
[2024-03-15] MEDS: Fluticasone/Vilanterol 100/25 BLST.W.DEV 1 PUFF INHALE (07:52)
[2024-03-15] MEDS: busPIRone HCl 10 MG TABLET PO ×2 (08:58→20:27)
[2024-03-15] MEDS: buPROPion HCl XL 150 MG TAB.ER.24H PO ×2 (08:58→14:50)
[2024-03-15] MEDS: rifAXIMin 550 MG TABLET PO ×2 (08:59→20:27)
[2024-03-15] MEDS: Folic Acid 1 MG TABLET PO (09:00)
[2024-03-15] MEDS: Thiamine HCL 100 MG TABLET PO (09:00)
[2024-03-15] MEDS: Buprenorphine/Naloxone 8/2 mg FILM 1 FILM SUBLINGUAL ×3 (09:00→20:27)
[2024-03-15] MEDS: Lactulose 20 GM/30 ML SOLUTION PO ×3 (09:00→20:27)
[2024-03-15] MEDS: Bictegrav/Emtricit/Tenofov Ala TABLET 1 TAB PO (09:00)
[2024-03-15] MEDS: Heparin Sodium,Porcine Flush 50 UNITS, 0.9 % Sodium Chloride Flush 5 ML IVFLUSH ×3 (09:04→22:41)
[2024-03-15] MEDS: 0.9 % Sodium Chloride Flush 3 ML SYRINGE IVFLUSH ×2 (09:04→18:17)
--- NOTE | 2024-03-15 11:00 | MHC.CM.PN ---
Addendum entered by Angy Teixeira 03/15/24 15:51: Second IMM given 03/15. Pt aware and in agreement with discharge plan. [facility] auth is pending for STR at [facility]. [facility] transport pre-booked for pt for tomorrow on 03/16 at 11am, [facility] transport auth received (run #[id number]). Original Note: EMR reviewed and per MD rounds, pt will be medically cleared pending repeat abdominal ultrasound. Pt will need STR upon discharge. [facility] has offered pt a bed pending insurance auth. This CM met with pt to discuss discharge plans, pt accepts bed offer at [facility]. This CM let [facility] know and they have gone for auth.
[2024-03-15 11:17] LABS: Glucose, Whole Blood 156 mg/dL (60-115)
[2024-03-15] MEDS: Insulin Lispro 100 UNIT/ML 3 ML VIAL SUBCUT (11:50)
--- NOTE | 2024-03-15 12:22 | P.PNIM_ITS ---
Subjective Subjective Date of Service: 03/15/24 Interval History: Seen and examined this morning Overall feeling pretty well but reporting abdominal distention No shortness a breath, no cough. Having bowel movements Review of Systems Review of Systems: Yes all other systems are reviewed and are negative Constitutional Constitutional: Denies chills and Denies fever(s) Physical Exam 2 Vital Signs: Vital Signs: Last Vital Signs Temp 98.1 F 03/15/24 11:22 Pulse 82 03/15/24 11:22 Resp 20 03/15/24 11:22 BP 135/82 03/15/24 11:22 Pulse Ox 90 L 03/15/24 11:22 O2 Del Method Room Air 03/15/24 11:22 O2 Flow Rate 2 03/12/24 15:55 FiO2 45 03/06/24 11:35 BMI result Body Mass Index 26.6 Const: General: cooperative, comfortable, no acute distress, alert and awake Nutritional Appearance: average body habitus Orientation/consciousness: o riented to person, oriented to place and patient oriented x3 Resp: Effort & Inspection: normal respiratory effort, able to speak in complete sentences, no respiratory distress and no use of accessory muscles A uscultation: clear to auscultation bilaterally Cardio: Rate: regular rate GI: Other: Softly distended, +BS Percussion: No Fluid wave present Neuro: Other: No asterixis General: oriented to person, oriented to place, patient oriented x3, moves all extremities and CN's II-XI intact bilaterally Extrem: General: Yes no pedal edema Objective Data Active Medications Bictegravir/Emtricitabine/Tenofovir (Bictegrav/Emtricit/Tenofov Ala Tablet) 1 tab PO DAILY [facility] Last Admin: 03/15/24 09:00 Dose: 1 tab Documented By: ARTIE Bisacodyl (Bisacodyl 10 Mg Supp.Rect) 10 mg SC DAILY PRN PRN Reason: Constipation Last Admin: 03/10/24 00:42 Dose: 10 mg Documented By: CRISPIN Buprenorphine/Naloxone (Buprenorphine/Naloxone 8/2 Mg Film) 1 film SUBLINGUAL TID [facility] Last Admin: 03/15/24 09:00 Dose: 1 film Documented By: ARTIE Bupropion HCl (Bupropion Hcl Xl 150 Mg Tab.Er.24h) 150 mg PO BID@0900,1500 [facility] Last Admin: 03/15/24 08:58 Dose: 150 mg Documented By: ARTIE Buspirone HCl (Buspirone Hcl 10 Mg Tablet) 10 mg PO BID [facility] Last Admin: 03/15/24 08:58 Dose: 10 mg Documented By: ARTIE Clopidogrel Bisulfate (Clopidogrel Bisulfate 75 Mg Tablet) 75 mg PO DAILY [facility] Last Admin: 03/04/24 07:59 Dose: 75 mg Documented By: JUNE Heparin Sodium (Porcine) 50 (units/ Sodium Chloride 5 ml) 0 units IVFLUSH TID [facility] Last Admin: 03/15/24 09:04 Dose: 50 unit Documented By: ARTIE Docusate Sodium (Docusate Sodium 100 Mg Capsule) 100 mg PO DAILY [facility] Last Admin: 03/15/24 09:00 Dose: Not Given Documented By: ARTIE Non-Admin Reason: Patient Refused Fluticasone/Vilanterol (Fluticasone/Vilanterol 100/25 Blst.W.Dev) 1 puff INHALE RDAILY [facility] Last Admin: 03/15/24 07:52 Dose: 1 puff Documented By: GUS Folic Acid (Folic Acid 1 Mg Tablet) 1 mg PO DAILY [facility] Last Admin: 03/15/24 09:00 Dose: 1 mg Documented By: ARTIE Gabapentin (Gabapentin 100 Mg Capsule) 100 mg PO TID [facility] Glucose (Glucose Gel 15 Gm Gel..Gram.) 15 gm PO Q15M PRN; Protocol PRN Reason: per Hypoglycemia Standing Ord. Dextrose (D10) 250 mls @ 750 mls/hr IV Q15M PRN; Protocol PRN Reason: per Hypoglycemia Standing Ord. Cefazolin Sodium/Dextrose (Ancef) 2 gm in 50 mls @ 100 mls/hr IV Q8H [facility] Last Infusion: 03/15/24 09:02 Dose: Infused Documented By: ARTIE Insulin Human Lispro (Insulin Lispro 100 Unit/Ml 3 Ml Vial) 0 unit SUBCUT Q6H [facility]; Protocol Last Admin: 03/15/24 11:50 Dose: 2 unit Documented By: ARTIE Lactulose (Lactulose 20 Gm/30 Ml Solution) 20 gm PO TID [facility] Last Admin: 03/15/24 09:00 Dose: 20 gm Documented By: ARTIE Ondansetron HCl (Ondansetron Hcl 4 Mg/2 Ml Vial) 4 mg IVPUSH Q6H PRN PRN Reason: Nausea and Vomiting Last Admin: 03/10/24 11:59 Dose: 4 mg Documented By: TOBIN Quetiapine Fumarate (Quetiapine Fumarate 200 Mg Tablet) 200 mg PO BEDTIME [facility] Last Admin: 03/04/24 22:06 Dose: 200 mg Documented By: RISO Quetiapine Fumarate (Quetiapine Fumarate 50 Mg Tablet) 50 mg PO BEDTIME [facility] Last Admin: 03/04/24 22:04 Dose: 50 mg Documented By: RIOS Rifaximin (Rifaximin 550 Mg Tablet) 550 mg PO BID [facility] Last Admin: 03/15/24 08:59 Dose: 550 mg Documented By: ARTIE Sodium Chloride (0.9 % Sodium Chloride Flush 3 Ml Syringe) 3 ml IVFLUSH QSHIFT [facility] Last Admin: 03/15/24 09:04 Dose: 3 ml Documented By: ARTIE Thiamine HCl (Thiamine Hcl 100 Mg Tablet) 100 mg PO DAILY [facility] Last Admin: 03/15/24 09:00 Dose: 100 mg Documented By: ARTIE Labs 03/13/24 06:32 03/13/24 06:32 Labs: Laboratory Results - last 24 hr 03/14/24 03/14/24 03/15/24 16:38 20:51 00:09 POC Glucose 121 H 124 H 142 H 03/15/24 03/15/24 05:49 11:11 POC Glucose 116 H 156 H Microbiology Microbiology Results: Microbiology 03/12/24 14:45 Gram Stain - Final Ascites Fluid Anaerobic Culture - Preliminary No growth to date. Body Fluid Culture - Final No growth after 2 days Assessment and Plan (1) Decompensation of cirrhosis of liver: Status: Acute Plan 59-year-old homeless male with history of opiate dependence on Suboxone, HIV on Biktarvy, chronic hepatitis-C, depression, PTSD, liver cirrhosis, COPD who was brought to the emergency department for evaluation of encephalopathy found to have elevated ammonia levels Liver cirrhosis with ascites Has history of chronic hepatitis-C as well as alcohol abuse s/p paracentesis 03/12 with re-accumulation on repeat US plan for paracentesis may need diuretiscs, discuss with GI Acute Toxic metabolic encephalopathy. resolved Multifactorial due to hepatic encephalopathy in the setting of liver cirrhosis and bacteremia continue rifaximin and lactulose ammonia trending down, asterixis resolved. continue lactulose to 20g TID to achieve 2-3 loose stools daily Aspiration pneumonia no fever chest ct showing consolidation s/p vancomycin and zosyn advance diet Acute hypoxic respiratory failure secondary to aspiration pna s/p high flow oxygen, now on room air leukocytosis white count trending up. no change in condition, no fever no diarrhea, no urinary or respiratory symptoms on cefazolin for bacteremia monitor white count SBO, acute. Resolved s/p NGT, removed 03/07 general surgery following rec out of bed to chair Alcoholic hepatitis bili trending down GI input appreciated> no steroids in light of bacteremia MSSA bacteremia seen by ID, will need 4 weeks of IV abx, initially treated with IV vancomycin, transitioned to IV cefazolin 03/08. end date 03/29 midline placed 03/08 Echocardiogram without vegetations Acute lactic acidosis Likely secondary to decreased clearance due to underlying liver disease and not due to sepsis History of alcohol abuse No evidence of alcohol withdrawal at this time alcohol level negative in the emergency department CIWA has remained low, will d/c CIWA History of opiate abuse Denies the use of intravenous drugs reports using pills only Continue baseline Suboxone Addiction medicine consult- plan to return to [facility] following STR Tobacco dependence Smoking cessation advised NRT Thrombocytopenia Likely related to underlying liver disease platelets have improved Normocytic anemia Likely due to chronic alcohol use H/H stable Above transfusion threshold Mood baseline medications bupropion, buspirone resumed Resume Seroquel 50 mg, up titrate if no excessive sedation HIV continue biktarvy outpatient follow up COPD no acute exacerbation continue baseline inhalers DVT prophylaxis SCD boots Healthcare proxy - Brother Garfield HCP Disposition-PT rec STR Attending Dr. Arnol HEALY will need STR when medically clear, accepted at [facility], insurance auth pending Patient requires ongoing inpatient stay for management of acute hepatitis, bacteremia requiring IV antibiotics, safe disposition Quality Stroke Does the patient have a stroke diagnosis?: No VTE Prior VTE?: No VTE Risk Level:: Medical - moderate - high VTE Device Contraindication: N/A - Device Ordered VTE Drug Contraindication: Treatment Not Indicated
[2024-03-15] MEDS: Lidocaine HCl 1 % MPF 5 ML VIAL SUBCUT (14:49)
[2024-03-15 15:14] LABS: MN% 53.1 %; PMN% 46.9 %; WBC Peritoneal Fluid 0.958 X10*3/uL
[2024-03-15 15:28] LABS: Anion Gap 12 (12-20); Blood Urea Nitrogen 15 mg/dL (9-16); Calcium 8.2 mg/dL (8.4-10.2); Carbon Dioxide 20 mmol/L (22-29); Chloride 105 mmol/L (96-108); Creatinine Clr Calc Pharmacy 50.2; Estimated Glomerular Filt Rate 40; Glucose Random 123 mg/dL (60-115); Potassium 4.7 mmol/L (3.3-5.1); Sodium 132 mmol/L (135-145)
[2024-03-15 17:02] LABS: RBC Peritoneal Fluid < 0.002 X10*6/uL
[2024-03-15 17:03] LABS: BF Shift QC OK YES; Lymphocyte Peritoneal Fl 21 %; Man Diluent Bkgrd OK YES; Monocytes Peritoneal Fl 29 %; Neutrophils Peritoneal Fluid 50 %; Other Peritioneal Fl 3 %
[2024-03-15 18:03] LABS: Glucose, Whole Blood 131 mg/dL (60-115)
[2024-03-15] MEDS: Albumin Human 25 % 100 ML IV ×2 (18:17→20:22)
[2024-03-15] MEDS: Lactated Ringers 250 ML 50 ML IVCONT (20:24)
[2024-03-15 20:25] LABS: Glucose, Whole Blood 144 mg/dL (60-115)
[2024-03-15] MEDS: QUEtiapine Fumarate 50 MG TABLET PO (20:27)
[2024-03-16] VITALS: BP 109/66; PULSE 74; RESP 18; TEMP 36.2; O2SAT 91
[2024-03-16] MEDS: 0.9 % Sodium Chloride Flush 3 ML SYRINGE IVFLUSH ×2 (00:34→08:45)
[2024-03-16 00:41] LABS: Glucose, Whole Blood 102 mg/dL (60-115)
[2024-03-16 04:00] VITALS: BP 110/59; PULSE 75; RESP 18; TEMP 36.3; O2SAT 94
[2024-03-16] MEDS: ceFAZolin Sodium/Dextrose,Iso 2 GM/50 ML PIGGYBACK IV (05:40)
[2024-03-16 05:57] LABS: Glucose, Whole Blood 91 mg/dL (60-115)
[2024-03-16] MEDS: Fluticasone/Vilanterol 100/25 BLST.W.DEV 1 PUFF INHALE (07:47)
[2024-03-16 07:49] VITALS: PULSE 82; RESP 18; O2SAT 95
--- NOTE | 2024-03-16 07:49 | PM.DS ---
DS: Providers Provider Date of Service: 03/16/24 Date of admission: 02/29/24 16:22 Primary care physician: Unknown Physician Consults: 03/01/24 08:06 Consult to Gastroenterology Routine Consulting Provider: Lalit Odom Reason for consultation: elevated LFTs, abdominal pain; HCV, cirrhosis Has provider been notified: No 03/01/24 13:03 Consult to Infectious Diseases Routine Consulting Provider: [facility] [place] [facility] Reason for consultation: GPC bacteremia Has provider been notified: No 03/04/24 23:51 Consult to General Surgery Routine Consulting Provider: [facility] [place] General Surgeons Reason for consultation: ?SBO Has provider been notified: No 03/11/24 08:56 Consult to Psychiatry Routine Consulting Provider: Psych Covering Reason for consultation: depression DS: Diagnosis Discharge Diagnosis (1) Decompensation of cirrhosis of liver: Status: Acute DS: Summary Hospital Course Hospital Course: Physical as per admitting provider. This is a 59 year old male with history of opiate abuse on Suboxone chronic hepatitis-C, HIV on Biktarvy, history of alcohol abuse, liver cirrhosis brought into the emergency department for evaluation of altered mental status. He was reportedly found by bystanders slumped over outside of a hotel. He reports drinking a lot of alcohol however his alcohol level was negative. Received a dose of lactulose and empiric antibiotics. Multiple imaging studies obtained mostly unremarkable. Patient was complaining of abdominal pain, CT scan of the abdomen and pelvis was negative for any acute changes. Did show compression deformity of L4 which was slightly progressed from prior study in 2021. Slight abdominal distention therefore plan was for paracentesis however there was not enough abdominal fluid for this to be done. He received a dose of lactulose and his mental status improved somewhat. Brain CT was negative for any acute changes, chronic white matter ischemic changes noted. Lab work was significant for elevated ammonia level. He was afebrile, no leukocytosis, no evidence of infection. Lactic acid initially 2.6, down to 1.3 after fluid. LFTs chronically elevated, appears similar to baseline. Patient will be admitted for further management of acute toxic metabolic encephalopathy During the discharge process patient reported that he asked his brother to pick him up so he could do his laundry. He stated that he would then go to the rehab center in [place]. I explained to patient that would not be possible, he would have to have his midline catheter removed and he would not be on IV antibiotics for the bacteremia. He reported that he understood that and he still wanted to leave. During this interview Lacy Rivera RN was also present. The patient was told that he should stay in the hospital to continue his IV abx and then tx to STR for continued IV abx tx. Patient decided to leave against medical advice. He has normal mental status and adequate capacity to make medical decisions. The patient refuses hospital admission and wants to be discharged. The risks have been explained to the patient including worsening illness, chronic pain, permanent disability and even . The benefits of admission have also been explained including the availability of nurses, medical providers, close monitoring, IV medications, diagnostic imaging, treatments, etc.. The patient was able to understand and state the risks and benefits of hospital admission. The patient was given opportunities to ask questions prior to leaving. Patient told that he should return to the ED for worsening symptoms including fever, chills, abd pain and distension, nausea or vomting or if he is feeling unwell in any way. Patient is aware that the oral antibiotic is not first line for his bacteremia but will be sent to the pharmacy with the possibility that it may work. He stated understading of this. Hospital course: 59-year-old man treated for acute toxic metabolic encephalopathy secondary to acute liver failure with ascites. Patient was initially treated with lactulose and started on IV thiamine for concern of alcohol abuse. Brain CT was negative for acute findings and patient had no focal neurological deficits. He does have a history of liver cirrhosis with chronic hepatitis-C. LFTs are chronically elevated and had been noted to be near baseline however bilirubin peaked at 15.4, down to 7.5. He was seen and evaluated by Gastroenterology with recommendation to hold off on steroids due to bacteremia. Patient slowly improved with treatment with lactulose, rifaximin and some IV fluids and albumin for volume. Ammonia trended down, asterixis resolved He did have to paracentesis x2, 1 with removal of 7.2 L the other with removal of 5 L. DELMI. Patient was also treated for DELMI likely in the setting of hypovolemia and paracentesis. He was initially treated with IV Lasix. His creatinine peaked at 7.16 but down to 0.87 he was treated with some IV fluids and albumin for this. Hypoxic respiratory failure secondary to Aspiration pneumonia. Patient had chest CT showing consolidation that was thought to be secondary to aspiration. He was treated with vancomycin and Zosyn and completed the treatment. Hypoxia resolved after treatment with high-flow oxygen, now on room air. Small-bowel obstruction. Patient with pain and fullness. Found to have small-bowel obstruction. Had NG tube placed on 03/05 and subsequently removed on 03/07. He was followed by General surgery with no recommendation for surgical procedure as the bowel obstruction resolved. MSSA bacteremia. Patient was found to have bacteremia. Initially treated with IV vancomycin, transition to IV cefazolin on 03/08. Plan for 4 weeks of IV antibiotics with end date of 03/29/2024. RN may remove midline after last dose. Echocardiogram without vegetations. Acute lactic acidosis. Likely secondary to decreased clearance due to underlying liver disease and not due to sepsis History of alcohol abuse. No evidence of alcohol withdrawal. CIWA remained low during hospitalization History of opiate abuse. Continue baseline Suboxone. Seen by addiction Medicine, patient is interested in returning to [facility] following short-term rehab Tobacco dependence . Smoking cessation advised. May use nicotine replacement therapy Thrombocytopenia. Secondary to underlying liver disease Normocytic anemia. Secondary to chronic alcohol abuse. H&H stable and remained above transfusion threshold Mood. Continue baseline medications, bupropion, buspirone and Seroquel. Hold for any sedating affects that may worsen patient's condition HIV. Continue Biktarvy. Outpatient follow-up COPD. No exacerbation during hospitalization. Continue home inhalers Less than 30 day stay Time Attestation Discharge Coordination Time (in mins): 45 Quality: Safe Use of Opioids Does Pt have an Active Cancer Diagnosis on the Problem List?: No Quality: Stroke Does the patient have a stroke diagnosis?: No Physical Exam Vital Signs: Vital Signs: Last Vital Signs Temp 97.3 F 03/16/24 04:00 Pulse 75 03/16/24 04:00 Resp 18 03/16/24 04:00 BP 110/59 L 03/16/24 04:00 Pulse Ox 94 03/16/24 04:00 O2 Del Method Nasal Cannula 03/16/24 04:00 O2 Flow Rate 1 03/16/24 04:00 FiO2 45 03/06/24 11:35 BMI result Body Mass Index 26.6 Appearing in no acute distress Mild jaundice head is normocephalic atraumatic eyes pupils are PERRLA sclera is anicteric mouth throat mucous membranes are intact and moist neck is supple no lymphadenopathy, no JVD noted lung sounds are clear to auscultation heart regular rate rhythm, clear S1, S2 positive bowel sounds, abdomen is soft, nontender neuro patient is alert x3, no focal deficits DS: Data Data Completed and Pending Completed studies during hospitalization [Text1]: Pending at discharge 03/12/24 14:43 Cytology [PTH] Routine Procedures Drainage of Spinal Canal, Percutaneous Approach, Diagnostic (09/06/22) Other Electroconvulsive Therapy (04/18/23) Labs on day of discharge: Laboratory Results - last 24 hr 03/15/24 03/15/24 03/15/24 11:11 13:40 14:57 Sodium 132 L Potassium 4.7 D Chloride 105 Carbon Dioxide 20 L Anion Gap 12 BUN 15 Creatinine 1.76 H Estim Creat Clear Calc 50.2 Estimated GFR 40 POC Glucose 156 H Random Glucose 123 H Calcium 8.2 L Peritoneal WBC 0.958 Peritoneal RBC < 0.002 Periton Neutrophils 50 Periton Lymphocytes 21 Peritoneal Monocytes 29 Peritoneal Other Cells 3 03/15/24 03/15/24 03/16/24 17:58 20:21 00:30 Sodium Potassium Chloride Carbon Dioxide Anion Gap BUN Creatinine Estim Creat Clear Calc Estimated GFR POC Glucose 131 H 144 H 102 Random Glucose Calcium Peritoneal WBC Peritoneal RBC Periton Neutrophils Periton Lymphocytes Peritoneal Monocytes Peritoneal Other Cells 03/16/24 05:52 Sodium Potassium Chloride Carbon Dioxide Anion Gap BUN Creatinine Estim Creat Clear Calc Estimated GFR POC Glucose 91 Random Glucose Calcium Peritoneal WBC Peritoneal RBC Periton Neutrophils Periton Lymphocytes Peritoneal Monocytes Peritoneal Other Cells Preliminary micro results at discharge 03/15/24 13:40 Anaerobic Culture - Preliminary Ascites Fluid No growth to date. Body Fluid Culture - Preliminary No growth to date. 03/12/24 14:45 Anaerobic Culture - Preliminary Ascites Fluid No growth to date. Discharge Plan Discharge Anticipated Discharge Date/Time: 03/16/24 09:44 Patient Disposition: Left Against Medical Advice Discharge Diagnosis: MSSA bacteremia Liver cirrhosis with recurrent ascites status post paracentesis x2 Toxic metabolic encephalopathy. Resolved Acute hypoxic respiratory failure due to Aspiration pneumonia. Resolved, completed antibiotics, on room air. Small-bowel obstruction/ileus status post NG tube, resolved, tolerating regular diet Acute alcoholic hepatitis, not candidate for steroids due to concurrent bacteremia, LFTs trending down DELMI Discharge Medications: New Xifaxan 550 mg Tablet 550 mg PO BID Qty: 60 0RF lactulose 20 gram/30 mL Solution 20 g PO TID Qty: 1200 0RF thiamine mononitrate (vit B1) 100 mg Tablet 100 mg PO DAILY 30 Days Qty: 30 0RF insulin lispro [Admelog U-100 Insulin lispro] 100 unit/mL Solution See Protocol subcut QIDACHS Qty: 10 0RF Protocol: Insulin Correction Scale Less than or equal to 110 ---- Give (units): 0 111 to 150 Give (units): 0 151 to 200 Give (units): 2 201 to 250 Give (units): 4 251 to 300 Give (units): 6 301 to 350 Give (units): 8 Greater than 350 Give (units): 10 Call MD if Blood Glucose > : 350 cephalexin 500 mg capsule 500 mg PO Q12H Qty: 26 0RF Continued melatonin 3 mg tablet 3 mg PO BEDTIME clopidogrel 75 mg tablet 75 mg PO DAILY pantoprazole 40 mg tablet,delayed release (DR/EC) 40 mg PO DAILY@0630 buspirone 10 mg tablet 10 mg PO BID folic acid 1 mg tablet 1 mg PO DAILY quetiapine 50 mg tablet 50 mg PO BEDTIME Jardiance 10 mg tablet 10 mg PO DAILY buspirone 30 mg tablet 15 mg PO BID buprenorphine-naloxone [Suboxone] 8-2 mg film 1 film sublingual TID Qty: 90 0RF bupropion HCl 150 mg Tablet Extended Release 24 Hr 150 mg PO BID@0900,1500 30 Days Qty: 60 0RF fluticasone furoate-vilanterol [Breo Ellipta] 100-25 mcg/dose blister with device 1 ea inhalation DAILY 30 Days Qty: 60 0RF Biktarvy 50-200-25 mg tablet 1 tab PO DAILY 30 Days Qty: 30 0RF Discontinued quetiapine 200 mg tablet 200 mg PO BEDTIME lactulose [Enulose] 10 gram/15 mL solution PO gabapentin 800 mg tablet 800 mg PO TID 30 Days Qty: 90 0RF Discharge Orders: Discharge Order (Routine); Ordered 03/16/24 Ordered By: Barbara Galeano Diet: Advance to usual diet Activity on Discharge: As tolerated Print Language: Setswana Care Plan Goals: The patient has decided to leave against medical advice. He has normal mental status and adequate capacity to make medical decisions. The patient refuses hospital admission and wants to be discharged. The risks have been explained to the patient including worsening illness, chronic pain, permanent disability and even . The benefits of admission have also been explained including the availability of nurses, medical providers, close monitoring, IV medications, diagnostic imaging, treatments, etc.. The patient was able to understand and state the risks and benefits of hospital admission. The patient was given opportunities to ask questions prior to leaving. RN was present during the interview. Health Concerns: MSSA bacteremia Liver cirrhosis with recurrent ascites status post paracentesis x2 Toxic metabolic encephalopathy. Resolved Acute hypoxic respiratory failure due to Aspiration pneumonia. Resolved, completed antibiotics, on room air. Small-bowel obstruction/ileus status post NG tube, resolved, tolerating regular diet Acute alcoholic hepatitis, not candidate for steroids due to concurrent bacteremia, LFTs trending down DELMI Plan of Treatment: will need outpatient follow up with GI for management of cirrhosis. Continue Suboxone for history of opiate abuse For MSSA bacteremia, cefazolin 2 g every 8 hours with end date of March 29. Midline placed March 08, can remove after a final dose of antibiotics Recommend to check CBC and BMP weekly starting on Monday until antibiotics are complete Outpatient follow-up with ID for management of HIV, continue Biktarvy Continue lactulose to achieve 2-3 bowel movements daily Assessment: see discharge summary
[2024-03-16 08:00] VITALS: BP 120/59; PULSE 82; RESP 16; TEMP 36.1; O2SAT 95
[2024-03-16] MEDS: Folic Acid 1 MG TABLET PO (08:45)
[2024-03-16] MEDS: Buprenorphine/Naloxone 8/2 mg FILM 1 FILM SUBLINGUAL (08:45)
[2024-03-16] MEDS: Docusate Sodium 100 MG CAPSULE PO (08:45)
[2024-03-16] MEDS: buPROPion HCl XL 150 MG TAB.ER.24H PO (08:45)
[2024-03-16] MEDS: rifAXIMin 550 MG TABLET PO (08:45)
[2024-03-16] MEDS: Bictegrav/Emtricit/Tenofov Ala TABLET 1 TAB PO (08:45)
[2024-03-16] MEDS: busPIRone HCl 10 MG TABLET PO (08:45)
[2024-03-16] MEDS: Thiamine HCL 100 MG TABLET PO (08:45)
[2024-03-16] MEDS: Lactulose 20 GM/30 ML SOLUTION PO (08:46)
[2024-03-16 09:25] LABS: Anion Gap 15 (12-20); Blood Urea Nitrogen 13 mg/dL (9-16); Carbon Dioxide 18 mmol/L (22-29); Chloride 105 mmol/L (96-108); Creatinine Clr Calc Pharmacy 101.5; Estimated Glomerular Filt Rate > 60; Glucose Random 146 mg/dL (60-115); Potassium 4.9 mmol/L (3.3-5.1); Sodium 133 mmol/L (135-145)
--- NOTE | 2024-03-16 10:59 | MHC.CM.PN ---
Per PIG MACHINE OPERATOR/Barbara, Patient is now refusing to go to [facility] and insisting on leaving today; CM has canceled S transport to [facility].
[2024-03-16 11:31] LABS: Glucose, Whole Blood 211 mg/dL (60-115)
--- NOTE | 2024-03-16 12:57 | MHC.CM.PN ---
Patient has decided to leave AMA; [facility] has been notified. CM received permission to arrange for a LYFT to bring Patient to [facility] at [address] [place] [address] in [place].
--- NOTE | 2024-03-16 13:20 | PC.NURSE ---
Patient left AMA. Alert and oriented x 4. Midline removed from left upper arm. Catheter intact upon removal. OUTBOARD MOTORBOAT RIGGER at bedside to educate patient on the risks/consequences of leave AMA. Patient signed AMA paperwork. Patient verbally stated he understood all risks of leaving AMA. All medications and wallet returned to patient from pharmacy and security before discharge. patient brought down to front lobby in wheelchair for uber services.
== END 2024-03-16 13:47 | disposition left against medical advice (07) | DRG 432 ==
LOC: HO.ED 15:34 → HO.EDOVER 16:36 → HO.IMC 19:14
PROVIDERS: Family Medicine; Internal Medicine; Physician Assistant; Physician Assistant Surgical; Student in an Organized Health Care Education/Training Program; Admitting Provider Physician Assistant Medical; Emergency Provider Student in an Organized Health Care Education/Training Program; Visit Provider Nurse Practitioner Acute Care
DX: K70.31 Alcoholic cirrhosis of liver with ascites (principal); G92.8 Other toxic encephalopathy; J69.0 Pneumonitis due to inhalation of food and vomit; J96.01 Acute respiratory failure with hypoxia; K72.00 Acute and subacute hepatic failure without coma; E87.21 Acute metabolic acidosis; F11.20 Opioid dependence, uncomplicated; R78.81 Bacteremia; K56.7 Ileus, unspecified; Z59.02 Unsheltered homelessness; F33.2 Major depressive disorder, recurrent severe without psychotic features; N17.9 Acute kidney failure, unspecified; K56.609 Unspecified intestinal obstruction, unspecified as to partial versus complete obstruction; J44.9 Chronic obstructive pulmonary disease, unspecified; K72.10 Chronic hepatic failure without coma; F10.10 Alcohol abuse, uncomplicated; B95.61 Methicillin susceptible Staphylococcus aureus infection as the cause of diseases classified elsewhere; B18.2 Chronic viral hepatitis C; K76.82 Hepatic encephalopathy; D69.59 Other secondary thrombocytopenia; F14.10 Cocaine abuse, uncomplicated; K70.11 Alcoholic hepatitis with ascites; R73.03 Prediabetes; E86.1 Hypovolemia; F17.210 Nicotine dependence, cigarettes, uncomplicated; K59.00 Constipation, unspecified; F43.10 Post-traumatic stress disorder, unspecified; Z21 Asymptomatic human immunodeficiency virus [HIV] infection status; Z71.6 Tobacco abuse counseling; Z79.4 Long term (current) use of insulin; Z79.02 Long term (current) use of antithrombotics/antiplatelets; Z79.51 Long term (current) use of inhaled steroids; Z79.899 Other long term (current) drug therapy
CPT/HCPCS: 36410; 36415; 36600; 49083; 70450; 71045; 71250; 71275; 72125; 74018; 74176; 74177; 76705; 80048; 80051; 80053; 80076; 80202; 80307; 81001; 82042; 82140; 82248; 82271; 82550; 82565; 82803; 82947; 83036; 83605; 83735; 83880; 84157; 84484; 85007; 85025; 85027; 85610; 86359; 86360; 86850; 86900; 86901; 87040; 87070; 87073; 87077; 87186; 87205; 88112; 88305; 89051; 92526; 92610; 92950; 93005; 93306; 94640; 97110; 97116; 97162; 99285; C1758; C9113; J0690; J0737; J1630; J1642; J1940; J2270; J2405; J2543; J3010; J3370; J3371; J3411; J3480; J7120; P9047; Q9957; Q9967

== ENCOUNTER → 2024-02-29 10:00 | Outpatient (BNV) | payer OTHER, SELFPAY | PROVIDERS: Admitting Provider Physician Assistant Medical; Emergency Provider Student in an Organized Health Care Education/Training Program; Visit Provider Internal Medicine Cardiovascular Disease | DX: R06.02 Shortness of breath (principal) | CPT/HCPCS: 93010 ==

== ENCOUNTER 2024-02-29 16:22 | Outpatient (BNV) | payer OTHER, SELFPAY | END 2024-03-15 13:30 | PROVIDERS: Admitting Provider Physician Assistant Medical; Emergency Provider Student in an Organized Health Care Education/Training Program; Visit Provider Physician Assistant Surgical | DX: R18.8 Other ascites (principal) | CPT/HCPCS: 49083 ==

== ENCOUNTER 2024-02-29 16:22 | Outpatient (BNV) | payer OTHER, SELFPAY | END 2024-03-12 14:30 | PROVIDERS: Admitting Provider Physician Assistant Medical; Emergency Provider Student in an Organized Health Care Education/Training Program; Visit Provider Physician Assistant Surgical | DX: R18.8 Other ascites (principal) | CPT/HCPCS: 49083 ==

== ENCOUNTER 2024-02-29 16:22 | Outpatient (BNV) | payer OTHER, SELFPAY | END 2024-03-01 07:00 | PROVIDERS: Admitting Provider Physician Assistant Medical; Emergency Provider Student in an Organized Health Care Education/Training Program; Visit Provider Internal Medicine Cardiovascular Disease | DX: R78.81 Bacteremia (principal); I36.1 Nonrheumatic tricuspid (valve) insufficiency; I35.8 Other nonrheumatic aortic valve disorders | CPT/HCPCS: 93306 ==

== ENCOUNTER → 2024-02-29 16:22 | Outpatient (BNV) | payer OTHER, SELFPAY | PROVIDERS: Admitting Provider Physician Assistant Medical; Emergency Provider Student in an Organized Health Care Education/Training Program; Visit Provider Surgery | DX: K56.7 Ileus, unspecified (principal) | CPT/HCPCS: 99222; 99232; 99499 ==

== ENCOUNTER → 2024-02-29 16:22 | Outpatient (BNV) | payer OTHER, SELFPAY | PROVIDERS: Admitting Provider Physician Assistant Medical; Emergency Provider Student in an Organized Health Care Education/Training Program; Visit Provider Internal Medicine | DX: K70.10 Alcoholic hepatitis without ascites (principal); R78.81 Bacteremia; K76.82 Hepatic encephalopathy; R09.02 Hypoxemia; R41.82 Altered mental status, unspecified; K72.90 Hepatic failure, unspecified without coma; K74.60 Unspecified cirrhosis of liver | CPT/HCPCS: 99223; 99233 ==

== ENCOUNTER → 2024-02-29 16:22 | Outpatient (BNV) | payer OTHER, SELFPAY | PROVIDERS: Admitting Provider Physician Assistant Medical; Emergency Provider Student in an Organized Health Care Education/Training Program; Visit Provider Physician Assistant Medical | DX: K70.10 Alcoholic hepatitis without ascites (principal); R78.81 Bacteremia; K56.7 Ileus, unspecified; T17.908A Unspecified foreign body in respiratory tract, part unspecified causing other injury, initial encounter | CPT/HCPCS: 99223; 99232; 99233; 99499 ==

== ENCOUNTER → 2024-02-29 16:22 | Outpatient (BNV) | payer OTHER, SELFPAY | PROVIDERS: Admitting Provider Physician Assistant Medical; Emergency Provider Student in an Organized Health Care Education/Training Program; Visit Provider Internal Medicine | DX: K70.10 Alcoholic hepatitis without ascites (principal); K72.90 Hepatic failure, unspecified without coma; K74.60 Unspecified cirrhosis of liver; R09.02 Hypoxemia; R78.81 Bacteremia; B20 Human immunodeficiency virus [HIV] disease | CPT/HCPCS: 99222 ==

== ENCOUNTER → 2024-02-29 16:22 | Outpatient (BNV) | payer OTHER, SELFPAY | PROVIDERS: Admitting Provider Physician Assistant Medical; Emergency Provider Student in an Organized Health Care Education/Training Program; Visit Provider Registered Nurse | DX: F33.2 Major depressive disorder, recurrent severe without psychotic features (principal); F11.10 Opioid abuse, uncomplicated; F14.10 Cocaine abuse, uncomplicated; F43.11 Post-traumatic stress disorder, acute | CPT/HCPCS: 99222 ==

== ENCOUNTER 2024-03-16 18:45 | Inpatient (IN) | payer OTHER, SELFPAY ==
--- NOTE | 2024-03-16 | ECG_ITS ---
Test Reason : ABD PAIN Blood Pressure : / mmHG Vent. Rate : 088 BPM Atrial Rate : 088 BPM P-R Int : 126 ms QRS Dur : 074 ms QT Int : 370 ms P-R-T Axes : 018 060 013 degrees QTc Int : 447 ms Sinus rhythm with Premature atrial complexes Nonspecific ST and T wave abnormality Abnormal ECG When compared with ECG of 29-FEB-2024 10:07, Premature atrial complexes are now Present Referred By: Generic ED Physician Electronically Signed By:ANGELI FERRARI MD
--- NOTE | ~2024-03-16 | US_ITS ---
EXAMINATION: US ABDOMEN LIMITED CLINICAL INFORMATION: Ascites check. COMPARISON: Ultrasound abdomen from 03/15/2024 TECHNIQUE: Real-time imaging of the right upper quadrant abdominal viscera. FINDINGS: FREE FLUID: Small to moderate volume ascites greatest in the right upper quadrant. US/US abdomen limited IMPRESSION: Small to moderate volume ascites greatest in the right upper quadrant.
[2024-03-16 18:48] VITALS: BP 137/60; PULSE 92; O2SAT 92
[2024-03-16 19:04] VITALS: BP 108/61; PULSE 92; RESP 14; TEMP 36.4; O2SAT 92; BMI 27.5
[2024-03-16 19:37] VITALS: BP 121/64; PULSE 91; RESP 18; TEMP 37.2; O2SAT 92
--- NOTE | 2024-03-16 19:53 | MHC.EDTECH ---
patient changed over $490.00 put in safe, belongings put in pod laundry closet.
[2024-03-16 19:54] LABS: Basophils Absolute Auto 0.2 X10*3/uL (0.0-0.2); Basophils Percent Auto 0.7 % (0-2); Eosinophils Absolute Auto 0.1 X10*3/uL (0.0-0.4); Eosinophils Percent Auto 0.4 % (0-4); Imm Gran Abs Auto 0.37 X10*3/uL (0.00-0.03); Imm Gran Pct Auto 1.4 % (0.0-0.4); Lymphocytes Absolute Auto 2.4 X10*3/uL (1.2-4.9); Lymphocytes Percent Auto 8.8 % (20-40); MANUAL DIFF FLAG SCAN; Mean Corpuscular HGB Conc 35.3 g/dl (31.0-36.0); Mean Corpuscular Hemoglobin 34.7 pg (27.0-33.0); Mean Corpuscular Volume 98.3 fL (80.0-98.0); Mean Platelet Volume 11.2 fL (9.4-12.4); Monocytes Absolute Auto 2.2 X10*3/uL (0.1-1.2); Monocytes Percent Auto 8.2 % (2-11); Neutrophils Percent Auto 80.5 % (45-73); Platelet Count 222 X10*3/uL (160-400); Red Blood Count 3.46 X10*6/uL (4.60-5.80); Red Cell Distribution Width 14.9 % (11.0-16.0); SCAN SMEAR FLAG 1; White Blood Count 27.3 X10*3/uL (4.8-10.8)
[2024-03-16 20:15] LABS: Alanine Aminotransferase 9 U/L (0-40); Alkaline Phosphatase 220 U/L (39-117); Anion Gap 12 (12-20); Aspartate Amino Transferase 50 U/L (5-37); Bilirubin Total 6.6 mg/dL (0.0-1.0); Blood Urea Nitrogen 14 mg/dL (9-16); Calcium 8.2 mg/dL (8.4-10.2); Carbon Dioxide 23 mmol/L (22-29); Chloride 102 mmol/L (96-108); Estimated Glomerular Filt Rate > 60; Ethanol < 10 mg/dL; Glucose Random 148 mg/dL (60-115); Potassium 3.7 mmol/L (3.3-5.1); Sodium 133 mmol/L (135-145); Total Protein 6.4 g/dL (6.5-8.0)
--- NOTE | 2024-03-16 20:16 | PC.NURSE ---
pt zulay from [facility] in [place], a&ox4, respirations even and unlabored. pt [place] [facility] [place] [facility] [place] and reports not feeling better. at time of arrival pt tearful reports he has been depressed with SI thoughts. pt reports his plan was to jump [place] bridge [place] the river. pt denies HI at this time. pt changed over by security and belongings placed into POD. Labs obtained and sent. pt calm and cooperative.
[2024-03-16 20:18] LABS: SLIDE REVIEW VERIFIED
--- NOTE | 2024-03-16 20:38 | PC.NURSE ---
pt has sitter at bedside 1:1
--- NOTE | 2024-03-16 20:39 | PC.NURSE ---
this RN obtained controlled substances from pt belongings, medications brought to pharmacy at this time, copy placed in pt chart.
--- NOTE | 2024-03-16 21:19 | ED.GENADULT ---
HPI - General Adult General Chief complaint: Psychiatric Symptoms Stated complaint: abd pain 1 week, weakness Time Seen by Provider: 03/16/24 19:01 Source: patient Mode of arrival: EMS History of Present Illness ED Provider: Dr Cutler HPI narrative: 59-year-old male who left against medical advice this morning via were now returns via ambulance, patient endorses that he did have every intention of drinking alcohol but was able to avoided, he denies taking any illicit drugs and states that he was unable to tile picker any of his medications due to wrong location of the pharmacy, patient is very emotional in telling his story although does appear to be proud of himself for having abstained from drinking any alcohol while he was away but began to think of his family, becomes tearful and states that he does not want to and that he absolutely needs to complete his treatment as he wants to see his family. I did review the triage note which reports that patient endorsed that he was suicidal and had a plan to jump off of a bridge into the river and feeling increasingly depressed. Related Data Home Medications ?Medication ?Instructions ?Recorded ?Confirmed buspirone 10 mg tablet 10 mg PO BID 02/29/24 02/29/24 buspirone 30 mg tablet 15 mg PO BID 02/29/24 02/29/24 clopidogrel 75 mg tablet 75 mg PO DAILY 02/29/24 02/29/24 empagliflozin 10 mg tablet 10 mg PO DAILY 02/29/24 02/29/24 (Jardiance) folic acid 1 mg tablet 1 mg PO DAILY 02/29/24 02/29/24 melatonin 3 mg tablet 3 mg PO BEDTIME 02/29/24 02/29/24 pantoprazole 40 mg tablet,delayed 40 mg PO DAILY@0630 02/29/24 02/29/24 release quetiapine 50 mg tablet 50 mg PO BEDTIME 02/29/24 02/29/24 Previous Rx's ?Medication ?Instructions ?Recorded bictegravir 50 mg-emtricitabine 1 tab PO DAILY 30 days #30 tabs 05/12/23 200 mg-tenofovir alafenam 25 mg tablet (Biktarvy) bupropion HCl 150 mg 24 hr tablet, 150 mg PO BID@0900,1500 30 days 05/12/23 extended release #60 tabs fluticasone furoate 100 1 ea inhalation DAILY 30 days #60 05/12/23 mcg-vilanterol 25 mcg/dose ea inhalation powder (Breo Ellipta) insulin lispro 100 unit/mL See Protocol subcut QIDACHS #10 mL 03/15/24 subcutaneous solution (Admelog U-100 Insulin lispro) lactulose 20 gram/30 mL oral 20 g (30 mL) PO TID #1,200 mL 03/15/24 solution rifaximin 550 mg tablet (Xifaxan) 550 mg PO BID #60 tabs 03/15/24 thiamine mononitrate (vit B1) 100 100 mg PO DAILY 30 days #30 tabs 03/15/24 mg tablet buprenorphine 8 mg-naloxone 2 mg 1 film sublingual TID #90 ea 03/16/24 sublingual film (Suboxone) cephalexin 500 mg capsule 500 mg PO Q12H #26 caps 03/16/24 Allergies Allergy/AdvReac Type Severity Reaction Status Date / Time ketorolac [From Toradol] AdvReac Itching Verified 03/16/24 19:06 Review of Systems Review of Systems: Pertinent positives and negatives as stated in [facility] Past Medical History Source: nursing notes reviewed Medical History MSSA bacteremia Cocaine abuse Opioid abuse MDD (major depressive disorder), recurrent severe, without psychosis Coccygeal pain Acute foot pain IBS (irritable bowel syndrome) COPD (chronic obstructive pulmonary disease) Prediabetes Colitis Hypertension PTSD (post-traumatic stress disorder) Osteoarthritis of both hips Opioid dependence Hepatitis C HIV infection Surgical History Status post right shoulder hemiarthroplasty History of right hip replacement Family History Family History Other No family history of coronary artery disease Social History Social History Household Members: Friend(s) Housing: Homeless Do you presently have visiting nurse or other home services: No Unable to assess alcohol history related to: Unknown Alcohol intake: current Alcohol intake frequency: 0-2 drinks per day Alcohol type: beer Patient Tobacco Use Status: Current everyday Tobacco user Tobacco use type: Cigarette Cigarette Packs Per Day: 1 Cigarettes Per Day: 20.0 Years Smoked: 35 Smoked in Last 30 Days: Yes Use of substances other than those prescribed or required for medical reasons: No Substance Use Type: Marijuana Advance Directives: Yes Advance Directives on File: Yes Advance Directives Date on File: 09/07/22 Do you have a plan to hurt others: No Plan service: No Current occupational status: disabled Sexual orientation: Straight/Heterosexual Physical Exam ED Vital Signs: Vital Signs - 24 hr 03/16/24 19:04 03/16/24 19:37 Temperature 97.6 F 99 F Pulse Rate 92 91 Respiratory Rate 14 18 Blood Pressure 108/61 121/64 Pulse Oximetry 92 92 Oxygen Delivery Method Room Air Room Air BMI result Body Mass Index 27.5 VITAL SIGNS: Reviewed. GENERAL: Poor health, appears older than stated age, chronically ill, in no acute distress. HEAD: Normocephalic/atraumatic EYES: PERRLA, EOMI EARS: Ext canals without abnormality NOSE: Nares patent bilateral OROPHARYNX: no oral lesions noted, posterior pharynx clear NECK: Supple, no adenopathy LUNGS: Normal breath sounds. No adventitious sounds or accessory muscle use. SpO2<92> CARDIOVASCULAR: Regular rate and rhythm without noted murmurs, no JVD or lower extremity edema. ABDOMEN: Soft, non-tender, non-distended with bowel sounds. MUSCULOSKELETAL: No tenderness, deformities, or effusions noted on gross inspection. EXTREMITIES: No cyanosis, clubbing or edema. SKIN: Inspection of the skin reveals no rashes NEUROLOGIC: Alert and oriented x 4. Strength and sensation to light touch were grossly intact x 4. PSYCH: Depressed affect, tearful Medical Decision Making Medical Decision Making MDM Narrative: 59-year-old male with history and clinical presentation consistent with depression/vague SI though I do appreciate the patient has endorsed a specific plan in my discussion with him he seems somewhat overwhelmed by life choices and his current state of health, will repeat lab work, I did discuss this patient with the inpatient hospitalist who accepts readmission. I reviewed all investigations which shows chronically stable leukocytosis/macrocytic anemia and no thrombocytopenia. Chemistry indices are stable without DELMI very mild hyponatremia and stable elevated liver enzymes. Alcohol is undetectable and UDS is pending. Patient is otherwise medically cleared for evaluation by the crisis team, patient will be admitted and all the floor. Differential Diagnosis Differential Diagnoses: The differential diagnosis associated with the presentation includes Please see the discussion above Admission/Observation Consideration of admission/observation: Escalation of care including admission/observation considered Please see the discussion above Consult Healthcare Provider Management of the patient was discussed with: Hospitalist Please see the discussion above Lab Data MDM Lab Attestation statement: I reviewed the patient's lab results. Please see the discussion above 03/16/24 19:48 03/16/24 19:48 Labs: Lab Results 03/16/24 Range/Units 19:48 WBC 27.3 H (4.8-10.8) X10*3/uL RBC 3.46 L (4.60-5.80) X10*6/uL Hgb 12.0 L (14.0-18.0) g/dl Hct 34.0 L (42.0-52.0) % MCV 98.3 H (80.0-98.0) fL MCH 34.7 H (27.0-33.0) pg MCHC 35.3 (31.0-36.0) g/dl RDW 14.9 (11.0-16.0) % Plt Count 222 (160-400) X10*3/uL MPV 11.2 (9.4-12.4) fL Immature Gran % (Auto) 1.4 H (0.0-0.4) % Neut % (Auto) 80.5 H (45-73) % Lymph % (Auto) 8.8 L (20-40) % [place] % (Auto) 8.2 (2-11) % Eos % (Auto) 0.4 (0-4) % Baso % (Auto) 0.7 (0-2) % Lymph # (Auto) 2.4 (1.2-4.9) X10*3/uL [place] # (Auto) 2.2 H (0.1-1.2) X10*3/uL Eos # (Auto) 0.1 (0.0-0.4) X10*3/uL Baso # (Auto) 0.2 (0.0-0.2) X10*3/uL Abs Immat Gran (auto) 0.37 H (0.00-0.03) X10*3/uL Absolute Neuts (auto) 22.0 H (2.0-8.3) x10*3/uL Absolute Nucleated RBC 0.000 (0.0-0.012) X10*3/uL Nucleated RBC % (auto) 0.0 (0.0-0.2) /100WBC Smear Tech's Comments VERIFIED Sodium 133 L (135-145) mmol/L Potassium 3.7 D (3.3-5.1) mmol/L Chloride 102 (96-108) mmol/L Carbon Dioxide 23 (22-29) mmol/L Anion Gap 12 (12-20) BUN 14 (9-16) mg/dL Creatinine 1.01 (0.5-1.4) mg/dL Estim Creat Clear Calc 90.0 Estimated GFR > 60 Random Glucose 148 H (60-115) mg/dL Calcium 8.2 L (8.4-10.2) mg/dL Total Bilirubin 6.6 H (0.0-1.0) mg/dL AST 50 H (5-37) U/L ALT 9 (0-40) U/L Alkaline Phosphatase 220 H (39-117) U/L Total Protein 6.4 L (6.5-8.0) g/dL Albumin 3.0 L (3.5-5.0) g/dL Ethyl Alcohol < 10 mg/dL External Record Review External record reviewed: Inpatient record, Outpatient record, Prior outpatient labs and Prior outpatient radiology Chronic Conditions Bacteremia, COPD, HIV Critical Care Time Critical Care Time Critical Care Time: Yes Total Critical Care Time: 45 Attestation: I personally attest to this time spent taking care of the patient. Discharge Plan Discharge Clinical Impression: Bacteremia, Suicidal ideation, Depression Patient Disposition: Admitted As Inpatient Prescriptions: No Action melatonin 3 mg tablet 3 mg PO BEDTIME clopidogrel 75 mg tablet 75 mg PO DAILY pantoprazole 40 mg tablet,delayed release (DR/EC) 40 mg PO DAILY@0630 buspirone 10 mg tablet 10 mg PO BID folic acid 1 mg tablet 1 mg PO DAILY quetiapine 50 mg tablet 50 mg PO BEDTIME Jardiance 10 mg tablet 10 mg PO DAILY buspirone 30 mg tablet 15 mg PO BID Xifaxan 550 mg Tablet 550 mg PO BID Qty: 60 0RF lactulose 20 gram/30 mL Solution 20 g PO TID Qty: 1200 0RF thiamine mononitrate (vit B1) 100 mg Tablet 100 mg PO DAILY 30 Days Qty: 30 0RF insulin lispro [Admelog U-100 Insulin lispro] 100 unit/mL Solution See Protocol subcut QIDACHS Qty: 10 0RF Protocol: Insulin Correction Scale Less than or equal to 110 ---- Give (units): 0 111 to 150 Give (units): 0 151 to 200 Give (units): 2 201 to 250 Give (units): 4 251 to 300 Give (units): 6 301 to 350 Give (units): 8 Greater than 350 Give (units): 10 Call MD if Blood Glucose > : 350 buprenorphine-naloxone [Suboxone] 8-2 mg film 1 film sublingual TID Qty: 90 0RF cephalexin 500 mg capsule 500 mg PO Q12H Qty: 26 0RF bupropion HCl 150 mg Tablet Extended Release 24 Hr 150 mg PO BID@0900,1500 30 Days Qty: 60 0RF fluticasone furoate-vilanterol [Breo Ellipta] 100-25 mcg/dose blister with device 1 ea inhalation DAILY 30 Days Qty: 60 0RF Biktarvy 50-200-25 mg tablet 1 tab PO DAILY 30 Days Qty: 30 0RF Interventions: [place]-Suicide Risk Severity Scale Last Done: 03/16/24 19:12 Print Language: [place] Islander
--- NOTE | 2024-03-16 21:26 | PC.NURSE ---
Addendum entered by Flor Manuel 03/16/24 21:32: at bedside for admission of pt, per provider they are requesting a sitter to be placed. 1:[address]. Original Note: per , pt is not suicidal at this time, reports pt does not need a sitter. sitter removed. 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
--- NOTE | 2024-03-16 21:56 | PM.IMHP ---
History of Present Illness Date of Service: 03/16/24 Attending physician on admission: Ronnie Schneider Chief Complaint: I feel depressed Wilver Damian is a 59 years old man with past medical history significant for chronic liver disease due to alcohol abuse, chronic hep C, opiate abuse on Suboxone and bipolar disorder presents to the emergency department via EMS with suicidal thoughts. He was recently hospitalized due to bacteremia and left the hospital against medical advice today. He said that he was about to jump off a bridge into the river because he is very depressed. He lost a twin sister about 2 years ago. He reports some nausea and abdominal discomfort. Been having loose stools. He did not report any acute cardiopulmonary or genitourinary symptoms. He denied recent consumption of alcohol or drugs. In the ED, he was found to have normal vital signs. Blood workup showed leukocytosis of 27.3, hemoglobin of 12 and platelets of 222. There is slight hyponatremia 133. There are no other electrolyte imbalances. LFTs are similar to prior. INR is 2.9. Renal function is normal. ED tx: None. Review of Systems Review of Systems: All 12 systems were reviewed and normal except as noted in HPI. [facility] Medical History MSSA bacteremia Cocaine abuse Opioid abuse MDD (major depressive disorder), recurrent severe, without psychosis Coccygeal pain Acute foot pain IBS (irritable bowel syndrome) COPD (chronic obstructive pulmonary disease) Prediabetes Colitis Hypertension PTSD (post-traumatic stress disorder) Osteoarthritis of both hips Opioid dependence Hepatitis C HIV infection Family History Other No family history of coronary artery disease Surgical History Status post right shoulder hemiarthroplasty History of right hip replacement Social History Household Members: Friend(s) Housing: Homeless Do you presently have visiting nurse or other home services: No Unable to assess alcohol history related to: Unknown Alcohol intake: current Alcohol intake frequency: 0-2 drinks per day Alcohol type: beer Patient Tobacco Use Status: Current everyday Tobacco user Tobacco use type: Cigarette Cigarette Packs Per Day: 1 Cigarettes Per Day: 20.0 Years Smoked: 35 Smoked in Last 30 Days: Yes Use of substances other than those prescribed or required for medical reasons: No Substance Use Type: Marijuana Advance Directives: Yes Advance Directives on File: Yes Advance Directives Date on File: 09/07/22 Do you have a plan to hurt others: No Plan service: No Current occupational status: disabled Sexual orientation: Straight/Heterosexual Meds Allergies Allergy/AdvReac Type Severity Reaction Status Date / Time ketorolac [From Toradol] AdvReac Itching Verified 03/16/24 19:06 Active Medications: Current Medications Cefazolin Sodium/Dextrose (Ancef) 2 gm in 50 mls @ 100 mls/hr IV Q8H [facility] Melatonin (Melatonin 3 Mg Tablet) 6 mg PO BEDTIME PRN PRN Reason: Insomnia Ondansetron HCl (Ondansetron Hcl 4 Mg/2 Ml Vial) 4 mg IVPUSH Q6H PRN PRN Reason: Nausea and Vomiting Sodium Chloride (0.9 % Sodium Chloride Flush 3 Ml Syringe) [facility] Home Medications ?Medication ?Instructions ?Recorded ?Confirmed ?Last Taken ?Type buspirone 10 mg tablet 10 mg PO BID 02/29/24 02/29/24 Unknown History buspirone 30 mg tablet 15 mg PO BID 02/29/24 02/29/24 Unknown History clopidogrel 75 mg tablet 75 mg PO DAILY 02/29/24 02/29/24 Unknown History empagliflozin 10 mg tablet 10 mg PO DAILY 02/29/24 02/29/24 Unknown History (Jardiance) folic acid 1 mg tablet 1 mg PO DAILY 02/29/24 02/29/24 Unknown History melatonin 3 mg tablet 3 mg PO BEDTIME 02/29/24 02/29/24 Unknown History pantoprazole 40 mg tablet,delayed 40 mg PO DAILY@0630 02/29/24 02/29/24 Unknown History release quetiapine 50 mg tablet 50 mg PO BEDTIME 02/29/24 02/29/24 Unknown History Physical Exam Vital Signs and Narrative: Vital Signs: Last Vital Signs Temp 99 F 03/16/24 19:37 Pulse 91 03/16/24 19:37 Resp 18 03/16/24 19:37 BP 121/64 03/16/24 19:37 Pulse Ox 92 03/16/24 19:37 O2 Del Method Room Air 03/16/24 19:37 BMI result Body Mass Index 27.5 Constitutional - Awake and Alert, No apparent distress. Tearful and depressed. HEENT - PERRL. Duodenal mucosa. Cardiovascular - S1S2, RRR, No edema Lungs - Normal lung expansion, Normal respiratory effort, No respiratory distress, CTA bilaterally Abdomen - NT / ND; +BS; No rebound or guarding. (+) fluid wave. Extremities - no calf tenderness bilaterally, no swelling Musculoskeletal - Normal inspection, normal ROM Skin - Warm/Dry. No jaundice. Neurological - Alert & oriented x3. No asterixis. No focal weakness. Psychological - Depressed affect Results Labs 03/16/24 19:48 03/16/24 19:48 Labs: Laboratory Results - last 24 hr 03/16/24 19:48 MCV 98.3 H MCH 34.7 H MCHC 35.3 RDW 14.9 Plt Count 222 MPV 11.2 Immature Gran % (Auto) 1.4 H Neut % (Auto) 80.5 H Lymph % (Auto) 8.8 L [place] % (Auto) 8.2 Eos % (Auto) 0.4 Baso % (Auto) 0.7 Lymph # (Auto) 2.4 [place] # (Auto) 2.2 H Eos # (Auto) 0.1 Baso # (Auto) 0.2 Abs Immat Gran (auto) 0.37 H Absolute Neuts (auto) 22.0 H Absolute Nucleated RBC 0.000 Nucleated RBC % (auto) 0.0 Smear Tech's Comments VERIFIED Anion Gap 12 Estim Creat Clear Calc 90.0 Estimated GFR > 60 Random Glucose 148 H Calcium 8.2 L Total Bilirubin 6.6 H AST 50 H ALT 9 Alkaline Phosphatase 220 H Total Protein 6.4 L Albumin 3.0 L Ethyl Alcohol < 10 Assessment and Plan (1) Depression: Qualifiers: Depression Type: unspecified Qualified Code(s): F32.A - Depression, unspecified Status: Acute (2) Suicidal ideation: Status: Acute (3) MSSA bacteremia: Status: Acute Plan Wilver aDmian is a 59 y/o man admitted with: Suicidal ideation. One-to-one observation. Psych evaluation. Precautions. MSSA bacteremia. Continue cefazolin IV every 8 hours. Will need to complete course until Leukocytosis, likely secondary to above. Continue to monitor. Generalized weakness. PT eval. Fall precautions. History alcohol abuse. No evidence of withdrawal symptoms. Continue thiamine and folic acid. History of opiate abuse. Continue Suboxone. Is interested in returning to [facility] short-term rehab. Recent aspiration pneumonia. s/p Zosyn course. Recent SBO. No acute symptoms suggesting this. Recent event of hepatic encephalopathy. No altered mental status observed. Continue lactulose. Abnormal LFTs secondary to above. At baseline. Continue to monitor. Chronic anemia. Secondary to chronic liver disease. Continue to monitor. Mood disorder. Continue bupropion, BuSpar and Seroquel. HIV. Continue Biktary. COPD. Not in acute exacerbation. Continue inhalers. History of chronic hep C infection. On Plavix. Unclear to me why patient is taking this med. Will investigate. DVT prophylaxis: SCDs. Code status: Full Patient will need hospitalization for at least 2 midnights to continue IV antibiotics for MSSA bacteremia and evaluation by psych for suicidal ideation. Quality Stroke Does the patient have a stroke diagnosis?: No VTE Prior VTE?: No VTE Risk Level:: Medical - moderate - high VTE Device Contraindication: N/A - Device Ordered VTE Drug Contraindication: Treatment Not Indicated
--- NOTE | 2024-03-16 22:06 | PC.NURSE ---
at bedside, US guided 18G placed in right AC.
[2024-03-16] MEDS: rifAXIMin 550 MG TABLET PO (22:18)
[2024-03-16] MEDS: ceFAZolin Sodium/Dextrose,Iso 2 GM/50 ML PIGGYBACK IV (22:20)
--- NOTE | 2024-03-16 22:23 | PC.NURSE ---
pt medicated per nov, tolerated well with water. per blood cultures not needed at this time,antibiotic administered.
[2024-03-16 23:26] VITALS: BP 101/61; PULSE 88; RESP 18; TEMP 37.2; O2SAT 91
[2024-03-17] MEDS: 0.9 % Sodium Chloride Flush 3 ML SYRINGE IVFLUSH ×4 (00:41→21:10)
[2024-03-17 05:33] LABS: Hematocrit 34.6 % (42.0-52.0); Hemoglobin 12.3 g/dl (14.0-18.0); Mean Corpuscular HGB Conc 35.5 g/dl (31.0-36.0); Mean Corpuscular Hemoglobin 35.4 pg (27.0-33.0); Mean Corpuscular Volume 99.7 fL (80.0-98.0); Mean Platelet Volume 11.4 fL (9.4-12.4); Platelet Count 195 X10*3/uL (160-400); Red Blood Count 3.47 X10*6/uL (4.60-5.80); Red Cell Distribution Width 15.3 % (11.0-16.0); White Blood Count 19.6 X10*3/uL (4.8-10.8)
[2024-03-17 05:43] LABS: Alanine Aminotransferase 9 U/L (0-40); Albumin Level 2.6 g/dL (3.5-5.0); Alkaline Phosphatase 216 U/L (39-117); Anion Gap 11 (12-20); Aspartate Amino Transferase 49 U/L (5-37); Bilirubin Total 6.2 mg/dL (0.0-1.0); Blood Urea Nitrogen 13 mg/dL (9-16); Calcium 7.8 mg/dL (8.4-10.2); Carbon Dioxide 23 mmol/L (22-29); Chloride 102 mmol/L (96-108); Creatinine Clr Calc Pharmacy 122.9; Estimated Glomerular Filt Rate > 60; Glucose Random 101 mg/dL (60-115); Potassium 3.7 mmol/L (3.3-5.1); Sodium 132 mmol/L (135-145)
[2024-03-17 05:57] VITALS: BP 132/77; PULSE 76; RESP 17; TEMP 36.3; O2SAT 93
[2024-03-17] MEDS: ceFAZolin Sodium/Dextrose,Iso 2 GM/50 ML PIGGYBACK IV ×3 (05:59→21:20)
[2024-03-17 06:09] LABS: Appearance Urine Clear; Color Urine Dark Yellow; Glucose Urine UA Negative (Negative); Leukocyte Esterase Urine Small (1+) (Negative); Nitrite Urine Positive (Negative); Specific Gravity - Urine 1.025 (1.005-1.025); UMIC TRIGGER UACC YES; Urine Blood Moderate (2+) (Negative); Urine Ketones Negative (Negative); Urine Protein 30 (1+) mg/dL (Neg-Trace)
[2024-03-17 06:20] LABS: Amphetamine Screen Urine Not Detected (Not Detect); Barbiturates, Urine Not Detected (Not Detect); Benzodiazepines Screen Urine POSITIVE (Not Detect); Buprenorphine Scr Positive (Not Detect); Cannabinoid Screen Urine Not Detected (Not Detect); Cocaine Screen Urine Not Detected (Not Detect); Fentanyl, urine Not Detected (Not Detect); Methadone Screen, Urine Not Detected (Not Detect); Opiate Screen Urine Not Detected (Not Detect); Oxycodone Screen Urine Positive (Not Detect); Phencyclidine Screen Urine Not Detected (Not Detect)
[2024-03-17 06:22] LABS: Bacteria Urine None Seen (None Seen); Granular Casts Urine Present; UACC Culture Trigger YES; WBC Urine 0-5 /HPF (0-5)
--- NOTE | 2024-03-17 07:16 | PHA.MEDREC ---
Pharmacy Consult ? Medication Reconciliation Pharmacy has completed the medication reconciliation. Patient was discharged yesterday, will use discharge packet.
[2024-03-17 07:25] VITALS: BP 122/68; PULSE 75; RESP 15; TEMP 36.6; O2SAT 91
[2024-03-17 07:33] LABS: Glucose, Whole Blood 101 mg/dL (60-115)
[2024-03-17 09:53] VITALS: BMI 27.5
[2024-03-17 10:01] VITALS: BP 145/70; PULSE 78; RESP 14; TEMP 37.1; O2SAT 93
--- NOTE | 2024-03-17 10:04 | HO.PM.IMPN ---
Subjective Subjective Date of Service: 03/17/24 Review of Systems Follow up abd pain feeling nausea and abd pain Physical Exam Vital Signs: Vital Signs: Last Vital Signs Temp 98.7 F 03/17/24 10:01 Pulse 78 03/17/24 10:01 Resp 14 03/17/24 10:01 BP 145/70 H 03/17/24 10:01 Pulse Ox 93 03/17/24 10:01 O2 Del Method Room Air 03/17/24 10:01 BMI result Body Mass Index 27.5 Appearing in no acute distress lung sounds are clear to auscultation heart regular rate rhythm, clear S1, S2 positive bowel sounds, abdomen is soft, nontender neuro patient is alert x3, no focal deficits Objective Data Active Medications Bictegravir/Emtricitabine/Tenofovir (Bictegrav/Emtricit/Tenofov Ala Tablet) 1 tab PO DAILY [facility] Buprenorphine/Naloxone (Buprenorphine/Naloxone 8/2 Mg Film) 1 film SUBLINGUAL TID [facility] Bupropion HCl (Bupropion Hcl Xl 150 Mg Tab.Er.24h) 150 mg PO BID@0900,1500 [facility] Buspirone HCl (Buspirone Hcl 10 Mg Tablet) 10 mg PO BID [facility] Buspirone HCl (Buspirone Hcl 5 Mg Tablet) 15 mg PO BID [facility] Clopidogrel Bisulfate (Clopidogrel Bisulfate 75 Mg Tablet) 75 mg PO DAILY [facility] Empagliflozin (Empagliflozin 10 Mg Tablet) 10 mg PO DAILY [facility] Fluticasone/Vilanterol (Fluticasone/Vilanterol 100/25 Blst.W.Dev) 1 puff INHALE DAILY [facility] Last Admin: 03/17/24 09:32 Dose: Not Given Documented By: JAI Non-Admin Reason: pharmacy called for med Folic Acid (Folic Acid 1 Mg Tablet) 1 mg PO DAILY [facility] Cefazolin Sodium/Dextrose (Ancef) 2 gm in 50 mls @ 100 mls/hr IV Q8H [facility] Last Infusion: 03/17/24 06:34 Dose: Infused Documented By: DONN Lactulose (Lactulose 20 Gm/30 Ml Solution) 20 gm PO TID [facility] Melatonin (Melatonin 3 Mg Tablet) 6 mg PO BEDTIME PRN PRN Reason: Insomnia Ondansetron HCl (Ondansetron Hcl 4 Mg/2 Ml Vial) 4 mg IVPUSH Q6H PRN PRN Reason: Nausea and Vomiting Pantoprazole Sodium (Pantoprazole Sodium 20 Mg Tablet.Dr) 40 mg PO DAILY@0630 [facility] Rifaximin (Rifaximin 550 Mg Tablet) 550 mg PO BID [facility] Sodium Chloride (0.9 % Sodium Chloride Flush 3 Ml Syringe) 3 ml IVFLUSH QSHIFT [facility] Last Admin: 03/17/24 00:41 Dose: 3 ml Documented By: DONN Thiamine HCl (Thiamine Hcl 100 Mg Tablet) 100 mg PO DAILY [facility] Labs 03/17/24 04:47 03/17/24 04:47 Labs: Laboratory Results - last 24 hr 03/16/24 03/17/24 03/17/24 19:48 04:47 06:01 MCV 98.3 H 99.7 H MCH 34.7 H 35.4 H MCHC 35.3 35.5 RDW 14.9 15.3 Plt Count 222 195 MPV 11.2 11.4 Immature Gran % (Auto) 1.4 H Neut % (Auto) 80.5 H Lymph % (Auto) 8.8 L Lewis % (Auto) 8.2 Eos % (Auto) 0.4 Baso % (Auto) 0.7 Lymph # (Auto) 2.4 Lewis # (Auto) 2.2 H Eos # (Auto) 0.1 Baso # (Auto) 0.2 Abs Immat Gran (auto) 0.37 H Absolute Neuts (auto) 22.0 H Absolute Nucleated RBC 0.000 0.000 Nucleated RBC % (auto) 0.0 0.0 Smear Tech's Comments VERIFIED Anion Gap 12 11 L Estim Creat Clear Calc 90.0 122.9 Estimated GFR > 60 > 60 POC Glucose Random Glucose 148 H 101 Calcium 8.2 L 7.8 L Total Bilirubin 6.6 H 6.2 H AST 50 H 49 H ALT 9 9 Alkaline Phosphatase 220 H 216 H Total Protein 6.4 L 6.0 L Albumin 3.0 L 2.6 L Urine Color Dark Yellow Urine Appearance Clear Urine pH 6.0 Ur Specific [place] 1.025 Urine Protein 30 (1+) H Urine Glucose (UA) Negative Urine Ketones Negative Urine Blood Moderate (2+) H Urine Nitrite Positive H Ur Leukocyte Esterase Small (1+) H Urine RBC 11-20 H Urine WBC 0-5 Ur Squamous Epith Cells 3-5 Urine Bacteria None Seen Hyaline Casts 3-5 Granular Casts Present Urine Opiates Screen Not Detected Ur Buprenorphine Scrn Positive H Ur Oxycodone Screen Positive H Urine Methadone Screen Not Detected Urine Fentanyl Screen Not Detected Ur Barbiturates Screen Not Detected Ur Phencyclidine Scrn Not Detected Ur Amphetamines Screen Not Detected U Benzodiazepines Scrn POSITIVE H Urine Cocaine Screen Not Detected U Marijuana (THC) Screen Not Detected Ethyl Alcohol < 10 03/17/24 07:19 MCV MCH MCHC RDW Plt Count MPV Immature Gran % (Auto) Neut % (Auto) Lymph % (Auto) Lewis % (Auto) Eos % (Auto) Baso % (Auto) Lymph # (Auto) Lewis # (Auto) Eos # (Auto) Baso # (Auto) Abs Immat Gran (auto) Absolute Neuts (auto) Absolute Nucleated RBC Nucleated RBC % (auto) Smear Tech's Comments Anion Gap Estim Creat Clear Calc Estimated GFR POC Glucose 101 Random Glucose Calcium Total Bilirubin AST ALT Alkaline Phosphatase Total Protein Albumin Urine Color Urine Appearance Urine pH Ur Specific [place] Urine Protein Urine Glucose (UA) Urine Ketones Urine Blood Urine Nitrite Ur Leukocyte Esterase Urine RBC Urine WBC Ur Squamous Epith Cells Urine Bacteria Hyaline Casts Granular Casts Urine Opiates Screen Ur Buprenorphine Scrn Ur Oxycodone Screen Urine Methadone Screen Urine Fentanyl Screen Ur Barbiturates Screen Ur Phencyclidine Scrn Ur Amphetamines Screen U Benzodiazepines Scrn Urine Cocaine Screen U Marijuana (THC) Screen Ethyl Alcohol Assessment and Plan (1) Suicidal ideation: Status: Acute (2) Bacteremia: Status: Acute Plan Wilver Damian is a 59 y/o man that left A 03/16/24 but was supposed to be transferred to [facility] to complete abx tx for bacteremia. He is now admitted with suicide ideation and abd pain. Abdominal pain secondary to alcoholic liver cirrhosis abd soft but tender on palpation no nausea or vomiting last admission paracentesis x2 abd us ordered for ascites check Suicidal ideation. One-to-one observation. care team evaluation when medically clear MSSA bacteremia. diagnosed last admission Continue cefazolin IV every 8 hours. Will need to complete course until March 29 Leukocytosis chronically elevated likely secondary to above. Continue to monitor. Generalized weakness. PT eval. Fall precautions. History alcohol abuse. No evidence of withdrawal symptoms. Continue thiamine and folic acid. History of opiate abuse. Continue Suboxone. Is interested in returning to [facility]-term rehab. Abnormal LFTs secondary to above. At baseline. Continue to monitor. Chronic normocytic anemia. Secondary to chronic liver disease. Continue to monitor. Mood disorder. Continue bupropion, BuSpar and Seroquel. HIV. Continue Biktary. COPD. Not in acute exacerbation. Continue inhalers. History of chronic hep C infection. On Plavix. Unclear to me why patient is taking this med. Will investigate. DVT prophylaxis: SCDs. Attending Dr. Sullivan Code status: Full Quality Stroke Does the patient have a stroke diagnosis?: No VTE Prior VTE?: No VTE Risk Level:: Medical - moderate - high VTE Device Contraindication: N/A - Device Ordered VTE Drug Contraindication: Treatment Not Indicated
[2024-03-17] MEDS: busPIRone HCl 5 MG TABLET 15 MG PO ×2 (10:21→21:09)
[2024-03-17] MEDS: rifAXIMin 550 MG TABLET PO ×2 (10:21→21:09)
[2024-03-17] MEDS: Clopidogrel Bisulfate 75 MG TABLET PO (10:22)
[2024-03-17] MEDS: Buprenorphine/Naloxone 8/2 mg FILM 1 FILM SUBLINGUAL ×3 (10:22→21:09)
[2024-03-17] MEDS: Empagliflozin 10 MG TABLET PO (10:22)
[2024-03-17] MEDS: buPROPion HCl XL 150 MG TAB.ER.24H PO ×2 (10:22→15:01)
[2024-03-17] MEDS: busPIRone HCl 10 MG TABLET PO ×2 (10:22→21:09)
[2024-03-17] MEDS: Bictegrav/Emtricit/Tenofov Ala TABLET 1 TAB PO (10:22)
[2024-03-17] MEDS: Thiamine HCL 100 MG TABLET PO (10:22)
[2024-03-17] MEDS: Folic Acid 1 MG TABLET PO (10:22)
[2024-03-17] MEDS: Lactulose 20 GM/30 ML SOLUTION PO ×3 (10:22→21:09)
[2024-03-17] MEDS: ondansetron HCL 4 MG/2 ML VIAL IVPUSH (10:36)
--- NOTE | 2024-03-17 14:34 | MHC.CM.PN ---
PT WAS SUPPOSED TO DC TO [facility] YESTERDAY FOR IV ABX, HOWEVER INSTEAD LEFT AMA PT SAYS HE IS HOMELESS AND HAS A SHACK HE MADE IN THE [place] NEAR [place] PT USES A CANE TO AMBULATE HE HAS A HCP ON FILE AND STATES HIS PCP IS ENRIKE MCKEON AT [facility] REFERRAL MADE TO [facility] TO DETERMINE IF THEY WILL STILL ACCEPT HE WILL NEED BLS TRANSPORT IF HE AGREES TO [facility]
[2024-03-17 15:14] VITALS: BP 112/67; PULSE 74; RESP 14; TEMP 37.1; O2SAT 92
[2024-03-17 19:23] VITALS: BP 110/58; PULSE 79; RESP 18; TEMP 36.4; O2SAT 92
[2024-03-17] MEDS: Melatonin 3 MG TABLET 6 MG PO (21:18)
[2024-03-18] VITALS (7 sets, daily range): BP systolic 102–134; BP diastolic 59–61; PULSE 73–86; RESP 16–18; TEMP 36.1–36.6; O2SAT 87–95
[2024-03-18] MEDS: Pantoprazole Sodium 20 MG TABLET.DR 40 MG PO (06:41)
[2024-03-18] MEDS: ceFAZolin Sodium/Dextrose,Iso 2 GM/50 ML PIGGYBACK IV ×3 (06:42→21:05)
[2024-03-18] MEDS: 0.9 % Sodium Chloride Flush 3 ML SYRINGE IVFLUSH ×3 (07:20→20:32)
[2024-03-18] MEDS: Fluticasone/Vilanterol 100/25 BLST.W.DEV 1 PUFF INHALE (08:28)
[2024-03-18] MEDS: Buprenorphine/Naloxone 8/2 mg FILM 1 FILM SUBLINGUAL ×3 (09:47→20:31)
[2024-03-18] MEDS: buPROPion HCl XL 150 MG TAB.ER.24H PO ×2 (09:48→15:36)
[2024-03-18] MEDS: Empagliflozin 10 MG TABLET PO (09:48)
[2024-03-18] MEDS: Lactulose 20 GM/30 ML SOLUTION PO ×3 (09:48→20:31)
[2024-03-18] MEDS: busPIRone HCl 5 MG TABLET 15 MG PO ×2 (09:48→20:31)
[2024-03-18] MEDS: rifAXIMin 550 MG TABLET PO ×2 (09:48→20:32)
[2024-03-18] MEDS: Folic Acid 1 MG TABLET PO (09:48)
[2024-03-18] MEDS: Clopidogrel Bisulfate 75 MG TABLET PO (09:48)
[2024-03-18] MEDS: busPIRone HCl 10 MG TABLET PO ×2 (09:48→20:32)
[2024-03-18] MEDS: Bictegrav/Emtricit/Tenofov Ala TABLET 1 TAB PO (09:48)
[2024-03-18] MEDS: Thiamine HCL 100 MG TABLET PO (09:48)
--- NOTE | 2024-03-18 10:54 | HO.PM.IMPN ---
Subjective Subjective Date of Service: 03/18/24 Review of Systems Follow up abd pain nausea and vomiting resolved Physical Exam Vital Signs: Vital Signs: Last Vital Signs Temp 97.2 F 03/18/24 07:20 Pulse 86 03/18/24 08:30 Resp 16 03/18/24 08:30 BP 134/59 L 03/18/24 07:20 Pulse Ox 92 03/18/24 07:20 O2 Del Method Room Air 03/18/24 07:20 BMI result Body Mass Index 27.5 Appearing in no acute distress lung sounds are clear to auscultation heart regular rate rhythm, clear S1, S2 positive bowel sounds, abdomen is soft, nontender neuro patient is alert x3, no focal deficits Objective Data Active Medications Bictegravir/Emtricitabine/Tenofovir (Bictegrav/Emtricit/Tenofov Ala Tablet) 1 tab PO DAILY [facility] Last Admin: 03/18/24 09:48 Dose: 1 tab Documented By: DEBORA Buprenorphine/Naloxone (Buprenorphine/Naloxone 8/2 Mg Film) 1 film SUBLINGUAL TID [facility] Last Admin: 03/18/24 09:47 Dose: 1 film Documented By: DEBORA Bupropion HCl (Bupropion Hcl Xl 150 Mg Tab.Er.24h) 150 mg PO BID@0900,1500 [facility] Last Admin: 03/18/24 09:48 Dose: 150 mg Documented By: DEBORA Buspirone HCl (Buspirone Hcl 10 Mg Tablet) 10 mg PO BID [facility] Last Admin: 03/18/24 09:48 Dose: 10 mg Documented By: DEBORA Buspirone HCl (Buspirone Hcl 5 Mg Tablet) 15 mg PO BID [facility] Last Admin: 03/18/24 09:48 Dose: 15 mg Documented By: DEBORA Clopidogrel Bisulfate (Clopidogrel Bisulfate 75 Mg Tablet) 75 mg PO DAILY [facility] Last Admin: 03/18/24 09:48 Dose: 75 mg Documented By: DEBORA Empagliflozin (Empagliflozin 10 Mg Tablet) 10 mg PO DAILY [facility] Last Admin: 03/18/24 09:48 Dose: 10 mg Documented By: DEBORA Fluticasone/Vilanterol (Fluticasone/Vilanterol 100/25 Blst.W.Dev) 1 puff INHALE DAILY [facility] Last Admin: 03/18/24 08:28 Dose: 1 puff Documented By: EDISON Folic Acid (Folic Acid 1 Mg Tablet) 1 mg PO DAILY [facility] Last Admin: 03/18/24 09:48 Dose: 1 mg Documented By: DEBORA Cefazolin Sodium/Dextrose (Ancef) 2 gm in 50 mls @ 100 mls/hr IV Q8H [facility] Last Infusion: 03/18/24 07:20 Dose: Infused Documented By: DEBORA Lactulose (Lactulose 20 Gm/30 Ml Solution) 20 gm PO TID [facility] Last Admin: 03/18/24 09:48 Dose: 20 gm Documented By: DEBORA Melatonin (Melatonin 3 Mg Tablet) 6 mg PO BEDTIME PRN PRN Reason: Insomnia Last Admin: 03/17/24 21:18 Dose: 6 mg Documented By: LANDEN Ondansetron HCl (Ondansetron Hcl 4 Mg/2 Ml Vial) 4 mg IVPUSH Q6H PRN PRN Reason: Nausea and Vomiting Last Admin: 03/17/24 10:36 Dose: 4 mg Documented By: NGOC Pantoprazole Sodium (Pantoprazole Sodium 20 Mg Tablet.) 40 mg PO DAILY@0630 [facility] Last Admin: 03/18/24 06:41 Dose: 40 mg Documented By: LANDEN Rifaximin (Rifaximin 550 Mg Tablet) 550 mg PO BID [facility] Last Admin: 03/18/24 09:48 Dose: 550 mg Documented By: DEBORA Sodium Chloride (0.9 % Sodium Chloride Flush 3 Ml Syringe) 3 ml IVFLUSH QSHIFT [facility] Last Admin: 03/18/24 07:20 Dose: 3 ml Documented By: DEBORA Thiamine HCl (Thiamine Hcl 100 Mg Tablet) 100 mg PO DAILY [facility] Last Admin: 03/18/24 09:48 Dose: 100 mg Documented By: DEBORA Labs 03/17/24 04:47 03/17/24 04:47 Microbiology Microbiology Results: Microbiology 03/17/24 Unknown Urine Culture - Final Urine clean catch - Urine oropeza top No growth. Assessment and Plan (1) Suicidal ideation: Status: Acute (2) Bacteremia: Status: Acute Plan Wilver Damian is a 59 y/o man that left A 03/16/24 but was supposed to be transferred to [facility] to complete abx tx for bacteremia. He is now admitted with suicide ideation and abd pain. Suicidal ideation. One-to-one observation. care team consult placed Abdominal pain secondary to alcoholic liver cirrhosis abd soft no nausea or vomiting last admission paracentesis x2 abd us ordered>small to moderate amount of ascites, no need for paracentesis at this time, may require in the near future MSSA bacteremia. diagnosed last admission Continue cefazolin IV every 8 hours. Will need to complete course until March 29 Leukocytosis chronically elevated likely secondary to above. Continue to monitor. Generalized weakness. PT eval. Fall precautions. History alcohol abuse. No evidence of withdrawal symptoms. Continue thiamine and folic acid. History of opiate abuse. Continue Suboxone. Is interested in returning to [facility] short-term rehab. Abnormal LFTs secondary to above. At baseline. Continue to monitor. Chronic normocytic anemia. Secondary to chronic liver disease. Continue to monitor. Mood disorder. Continue bupropion, BuSpar and Seroquel. HIV. Continue Biktary. COPD. Not in acute exacerbation. Continue inhalers. History of chronic hep C infection. On Plavix. Unclear to me why patient is taking this med. Will investigate. DVT prophylaxis: SCDs. Attending Dr. Parks Code status: Full Quality Stroke Does the patient have a stroke diagnosis?: No VTE Prior VTE?: No VTE Risk Level:: Medical - moderate - high VTE Device Contraindication: N/A - Device Ordered VTE Drug Contraindication: Treatment Not Indicated
--- NOTE | 2024-03-18 15:21 | HO.MIDLINE_ITS ---
Midline Insertion MIDLINE INSERTION Diagnosis: MSSA Bacteremia Indication: 2 weeks antibx Pertinent Labs: Reviewed Technique: Using sterile technique including cap and mask, glove and drape, the Left arm was prepped and draped in the usual sterile fashion of full barrier technique with CHG. Using ultrasound guidance, Left Brachial vein access was obtained on second attempt. 4FR 10CM SINGLE LUMEN NON-PASV POWERMIDLINE trimmable was positioned. The procedure was performed in RM. 272. Ultrasound was used to document vein patency and for needle entry. A formal ultrasound picture was recorded. [employer] has released the line for use and it is currently dressed with a StatLock, Tegaderm, and CHG disc. Verification has been performed for blood return and line patency. Arm Circumference: 28.5CM Equipment: [employer] POWERMIDLINE CATHETER Catheter Type: 4FR 10CM SINGLE LUMEN NON-PASV POWERMIDLINE trimmable Lot #: [id number]
--- NOTE | 2024-03-18 15:56 | MHC.CARE ---
Pt was assessed by the CARE Team and is inpatient bedsearch
[2024-03-18] MEDS: oxyCODONE HCl Immed Release 5 MG TABLET PO (16:34)
[2024-03-18] MEDS: QUEtiapine Fumarate 50 MG TABLET PO (21:05)
[2024-03-19] VITALS (7 sets, daily range): BP systolic 104–113; BP diastolic 59–65; PULSE 72–88; RESP 14–18; TEMP 36–37.1; O2SAT 90–95
[2024-03-19] MEDS: Pantoprazole Sodium 20 MG TABLET.DR 40 MG PO (05:54)
[2024-03-19] MEDS: ceFAZolin Sodium/Dextrose,Iso 2 GM/50 ML PIGGYBACK IV ×3 (05:54→21:36)
--- NOTE | 2024-03-19 06:22 | PC.NURSE ---
pt a&ox3, sometimes forgetful of time/date. pt talkative with good affect. pain to left upper arm/resting on pillow, patient states it is due to the midline that was placed on 03/18/2024. Midline is flushing without difficulty with good blood return. Medications given per MAR as ordered. Tolerating well. Patient states that they would still hurt themselves if discharged or alone, 1:1 sitter remains in room for SI. See suicide assessment form for complete information. Patient cooperative with care, working well with 1:1 and ambulating well to the bathroom with walker and stand by assist. bowel movement x 2 overnight, one loose and one formed. All needs met, safety and comfort maintained. Sitter remains next to patient for assistance.
--- NOTE | 2024-03-19 07:11 | HO.PM.IMPN ---
Subjective Subjective Date of Service: 03/19/24 Review of Systems Follow up abd pain nausea and vomiting resolved bacteremia Physical Exam Vital Signs: Vital Signs: Last Vital Signs Temp 98.3 F 03/19/24 06:00 Pulse 88 03/19/24 06:00 Resp 14 03/19/24 06:00 BP 104/61 03/19/24 06:00 Pulse Ox 95 03/19/24 06:00 O2 Del Method Room Air 03/19/24 06:00 O2 Flow Rate 2 03/18/24 11:51 BMI result Body Mass Index 27.5 Appearing in no acute distress lung sounds are clear to auscultation heart regular rate rhythm, clear S1, S2 positive bowel sounds, abdomen is soft, nontender neuro patient is alert x3, no focal deficits Objective Data Active Medications Bictegravir/Emtricitabine/Tenofovir (Bictegrav/Emtricit/Tenofov Ala Tablet) 1 tab PO DAILY [facility] Last Admin: 03/18/24 09:48 Dose: 1 tab Documented By: DEBORA Buprenorphine/Naloxone (Buprenorphine/Naloxone 8/2 Mg Film) 1 film SUBLINGUAL TID [facility] Last Admin: 03/18/24 20:31 Dose: 1 film Documented By: CELSO Bupropion HCl (Bupropion Hcl Xl 150 Mg Tab.Er.24h) 150 mg PO BID@0900,1500 [facility] Last Admin: 03/18/24 15:36 Dose: 150 mg Documented By: DEBORA Buspirone HCl (Buspirone Hcl 10 Mg Tablet) 10 mg PO BID [facility] Last Admin: 03/18/24 20:32 Dose: 10 mg Documented By: CELSO Buspirone HCl (Buspirone Hcl 5 Mg Tablet) 15 mg PO BID [facility] Last Admin: 03/18/24 20:31 Dose: 15 mg Documented By: CELSO Clopidogrel Bisulfate (Clopidogrel Bisulfate 75 Mg Tablet) 75 mg PO DAILY [facility] Last Admin: 03/18/24 09:48 Dose: 75 mg Documented By: DEBORA Empagliflozin (Empagliflozin 10 Mg Tablet) 10 mg PO DAILY [facility] Last Admin: 03/18/24 09:48 Dose: 10 mg Documented By: DEBORA Fluticasone/Vilanterol (Fluticasone/Vilanterol 100/25 Blst.W.Dev) 1 puff INHALE DAILY [facility] Last Admin: 03/18/24 08:28 Dose: 1 puff Documented By: EDISON Folic Acid (Folic Acid 1 Mg Tablet) 1 mg PO DAILY [facility] Last Admin: 03/18/24 09:48 Dose: 1 mg Documented By: DEBORA Cefazolin Sodium/Dextrose (Ancef) 2 gm in 50 mls @ 100 mls/hr IV Q8H [facility] Last Infusion: 03/19/24 06:20 Dose: Infused Documented By: CELSO Lactulose (Lactulose 20 Gm/30 Ml Solution) 20 gm PO TID [facility] Last Admin: 03/18/24 20:31 Dose: 20 gm Documented By: CELSO Melatonin (Melatonin 3 Mg Tablet) 6 mg PO BEDTIME PRN PRN Reason: Insomnia Last Admin: 03/17/24 21:18 Dose: 6 mg Documented By: LANDEN Ondansetron HCl (Ondansetron Hcl 4 Mg/2 Ml Vial) 4 mg IVPUSH Q6H PRN PRN Reason: Nausea and Vomiting Last Admin: 03/17/24 10:36 Dose: 4 mg Documented By: NGOC Oxycodone HCl (Oxycodone Hcl Immed Release 5 Mg Tablet) 5 mg PO Q6H PRN PRN Reason: Pain, Severe (Pain Scale 7-10) Last Admin: 03/18/24 16:34 Dose: 5 mg Documented By: DEBORA Pantoprazole Sodium (Pantoprazole Sodium 20 Mg Tablet.Dr) 40 mg PO DAILY@0630 [facility] Last Admin: 03/19/24 05:54 Dose: 40 mg Documented By: CELSO Quetiapine Fumarate (Quetiapine Fumarate 50 Mg Tablet) 50 mg PO BEDTIME [facility] Last Admin: 03/18/24 21:05 Dose: 50 mg Documented By: CELSO Rifaximin (Rifaximin 550 Mg Tablet) 550 mg PO BID [facility] Last Admin: 03/18/24 20:32 Dose: 550 mg Documented By: CELSO Sodium Chloride (0.9 % Sodium Chloride Flush 3 Ml Syringe) 3 ml IVFLUSH QSHIFT [facility] Last Admin: 03/18/24 20:32 Dose: 3 ml Documented By: CELSO Thiamine HCl (Thiamine Hcl 100 Mg Tablet) 100 mg PO DAILY [facility] Last Admin: 03/18/24 09:48 Dose: 100 mg Documented By: DEBORA Labs 03/17/24 04:47 03/19/24 07:27 Microbiology Microbiology Results: Microbiology 03/17/24 Unknown Urine Culture - Final Urine clean catch - Urine oropeza top No growth. Assessment and Plan (1) Suicidal ideation: Status: Acute (2) Bacteremia: Status: Acute Plan Wilver Damian is a 59 y/o man that left AMA 03/16/24 but was supposed to be transferred to [facility] to complete abx tx for bacteremia. He is now admitted with suicide ideation and abd pain. Suicidal ideation. One-to-one observation. care team consult>bed search Abdominal pain secondary to alcoholic liver cirrhosis abd soft no nausea or vomiting last admission paracentesis x2 abd us ordered>small to moderate amount of ascites, no need for paracentesis at this time, may require in the near future MSSA bacteremia. diagnosed last admission Continue cefazolin IV every 8 hours. Will need to complete course until March 29 Leukocytosis chronically elevated likely secondary to above. Continue to monitor. Generalized weakness. PT eval. Fall precautions. encourage oob to chair and ambulating History alcohol abuse. No evidence of withdrawal symptoms. Continue thiamine and folic acid. History of opiate abuse. Continue Suboxone. Is interested in returning to [facility] short-term rehab. Abnormal LFTs secondary to above. At baseline. Continue to monitor. Chronic normocytic anemia. Secondary to chronic liver disease. Continue to monitor. Mood disorder. Continue bupropion, BuSpar and Seroquel. HIV. Continue Biktary. COPD. Not in acute exacerbation. Continue inhalers. History of chronic hep C infection. On Plavix. Unclear to me why patient is taking this med. Will investigate. DVT prophylaxis: SCDs. Attending Dr. Parks Code status: Full Quality Stroke Does the patient have a stroke diagnosis?: No VTE Prior VTE?: No VTE Risk Level:: Medical - moderate - high VTE Device Contraindication: N/A - Device Ordered VTE Drug Contraindication: Treatment Not Indicated
[2024-03-19 07:56] LABS: Alanine Aminotransferase 7 U/L (0-40); Albumin Level 2.4 g/dL (3.5-5.0); Alkaline Phosphatase 221 U/L (39-117); Anion Gap 11 (12-20); Aspartate Amino Transferase 50 U/L (5-37); Bilirubin Direct 2.7 mg/dL (0.0-0.5); Bilirubin Total 4.3 mg/dL (0.0-1.0); Blood Urea Nitrogen 12 mg/dL (9-16); Calcium 7.8 mg/dL (8.4-10.2); Carbon Dioxide 24 mmol/L (22-29); Chloride 104 mmol/L (96-108); Creatinine Clr Calc Pharmacy 118.1; Estimated Glomerular Filt Rate > 60; Glucose Random 95 mg/dL (60-115); Potassium 3.6 mmol/L (3.3-5.1); Sodium 135 mmol/L (135-145); Total Protein 6.2 g/dL (6.5-8.0)
[2024-03-19] MEDS: Fluticasone/Vilanterol 100/25 BLST.W.DEV 1 PUFF INHALE (07:56)
[2024-03-19] MEDS: rifAXIMin 550 MG TABLET PO ×2 (08:33→21:36)
[2024-03-19] MEDS: Bictegrav/Emtricit/Tenofov Ala TABLET 1 TAB PO (08:33)
[2024-03-19] MEDS: Clopidogrel Bisulfate 75 MG TABLET PO (08:33)
[2024-03-19] MEDS: 0.9 % Sodium Chloride Flush 3 ML SYRINGE IVFLUSH ×3 (08:33→21:42)
[2024-03-19] MEDS: Buprenorphine/Naloxone 8/2 mg FILM 1 FILM SUBLINGUAL ×3 (08:33→21:36)
[2024-03-19] MEDS: Empagliflozin 10 MG TABLET PO (08:34)
[2024-03-19] MEDS: busPIRone HCl 10 MG TABLET PO ×2 (08:34→21:36)
[2024-03-19] MEDS: Lactulose 20 GM/30 ML SOLUTION PO ×3 (08:34→21:36)
[2024-03-19] MEDS: buPROPion HCl XL 150 MG TAB.ER.24H PO ×2 (08:34→15:07)
[2024-03-19] MEDS: busPIRone HCl 5 MG TABLET 15 MG PO ×2 (08:34→21:36)
[2024-03-19] MEDS: Folic Acid 1 MG TABLET PO (08:34)
[2024-03-19] MEDS: Thiamine HCL 100 MG TABLET PO (08:34)
--- NOTE | 2024-03-19 14:47 | PM.DS ---
DS: Providers Provider Date of Service: 03/19/24 <Barbara Galeano NP - Last Filed: 03/25/24 11:21> Date of admission: 03/16/24 21:51 <Barbara Galeano NP - Last Filed: 03/25/24 11:21> Primary care physician: Shayy Nielson NP <Barbara Galeano NP - Last Filed: 03/25/24 11:21> Consults: 03/16/24 21:45 Consult to Care Team Stat Comment: Reason for consultation: Depression, SI 03/18/24 08:57 Consult to Care Team Routine Comment: Reason for consultation: suicide ideation 03/18/24 11:06 Consult for Sitter Routine Reason for consultation: SI Has provider been notified: No <Barbara Galeano NP - Last Filed: 03/25/24 11:21> DS: Diagnosis Discharge Diagnosis (1) Suicidal ideation: Status: Acute <Barbara Galeano NP - Last Filed: 03/25/24 11:21> (2) Bacteremia: Status: Acute <Barbara Galeano NP - Last Filed: 03/25/24 11:21> DS: Summary Hospital Course Hospital Course: History and physical as per admitting provider. Wilver Damian is a 59 years old man with past medical history significant for chronic liver disease due to alcohol abuse, chronic hep C, opiate abuse on Suboxone and bipolar disorder presents to the emergency department via EMS with suicidal thoughts. He was recently hospitalized due to bacteremia and left the hospital against medical advice today. He said that he was about to jump off a bridge into the river because he is very depressed. He lost a twin sister about 2 years ago. He reports some nausea and abdominal discomfort. Been having loose stools. He did not report any acute cardiopulmonary or genitourinary symptoms. He denied recent consumption of alcohol or drugs. In the ED, he was found to have normal vital signs. Blood workup showed leukocytosis of 27.3, hemoglobin of 12 and platelets of 222. There is slight hyponatremia 133. There are no other electrolyte imbalances. LFTs are similar to prior. INR is 2.9. Renal function is normal. ED tx: None. 59-year-old man treated for suicidal ideation. He had one-to-one observation, was seen evaluated by care team with recommendation for psychiatric admission. Patient has a history of MSSA bacteremia that was diagnosed during his last admission. He is on Kefzol IV every 8 hours to complete course on March 29. Midline can be removed after final dose of antibiotics He has some chronic abdominal pain secondary to alcoholic liver cirrhosis. He has not required any paracentesis during this admission, abdominal ultrasound ordered which showed small to moderate amount of ascites. If abdominal distention worsens would recommend checking limited ultrasound to assess for increasing ascites, can have therapeutic paracentesis by IR if necessary. We will start low-dose Lasix 20 mg daily, if patient tolerates would recommend adding Aldactone 50 mg b.i.d.. Monitor renal function and electrolytes daily for the 1st several days and then weekly while receiving antibiotics. Will need outpatient follow up with GI. Was started on rifaximin in addition to lactulose. goal for 2-3 bowel movements daily to prevent hepatic encephalopathy. Leukocytosis. Chronically elevated likely secondary to alcoholic liver cirrhosis. History of alcohol abuse. Had no evidence of withdrawal during this hospitalization. Continue thiamine and folic acid supplementation History of opiate abuse. Continue Suboxone. He is interested in returning to [facility] after psychiatric admission Chronic normocytic anemia. Secondary to liver disease Mental health. Continue bupropion, BuSpar and Seroquel. dose of seroquel had been decreased on last admission due to sedation and acute medical issues. HIV. Continue Biktarvy. Will need outpatient follow-up with specialist COPD not in exacerbation during hospitalization. Continue inhalers History of carotid artery stenosis. Continue Plavix History of hepatitis-C infection. Follow with specialist outpatient Patient will be discharged to inpatient psych for further care of depression and suicidal ideation <Barbara Galeano NP - Last Filed: 03/25/24 11:21> Time Attestation Discharge Coordination Time (in mins): 35 <Myles Parks MD - Last Filed: 03/21/24 19:06> Quality: Safe Use of Opioids Does Pt have an Active Cancer Diagnosis on the Problem List?: No <Myles Parks MD - Last Filed: 03/21/24 19:06> Quality: Stroke Does the patient have a stroke diagnosis?: No <Myles Parks MD - Last Filed: 03/21/24 19:06> Physical Exam Vital Signs: Vital Signs: Last Vital Signs Temp 96.8 F 03/19/24 07:38 Pulse 74 06/25/24 07:56 Resp 18 03/19/24 07:56 BP 112/61 03/19/24 07:38 Pulse Ox 92 03/19/24 07:38 O2 Del Method Room Air 03/19/24 07:38 O2 Flow Rate 2 03/18/24 11:51 BMI result Body Mass Index 27.5 <Barbara Galeano NP - Last Filed: 03/25/24 11:21> Appearing in no acute distress Mild jaundice head is normocephalic atraumatic eyes pupils are PERRLA sclera is anicteric mouth throat mucous membranes are intact and moist neck is supple no lymphadenopathy, no JVD noted lung sounds are clear to auscultation heart regular rate rhythm, clear S1, S2 positive bowel sounds, abdomen is soft, nontender neuro patient is alert x3, no focal deficits <Barbara Galeano NP - Last Filed: 03/25/24 11:21> DS: Data Data Completed and Pending Completed studies during hospitalization [Text1]: Procedures Drainage of Spinal Canal, Percutaneous Approach, Diagnostic (09/06/22) Other Electroconvulsive Therapy (04/18/23) <Barbara Galeano NP - Last Filed: 03/25/24 11:21> Labs on day of discharge: Laboratory Results - last 24 hr 03/19/24 07:27 Sodium 135 Potassium 3.6 Chloride 104 Carbon Dioxide 24 Anion Gap 11 L BUN 12 Creatinine 0.77 Estim Creat Clear Calc 118.1 Estimated GFR > 60 Random Glucose 95 Calcium 7.8 L Total Bilirubin 4.3 H Direct Bilirubin 2.7 H AST 50 H ALT 7 Alkaline Phosphatase 221 H Total Protein 6.2 L Albumin 2.4 L <Barbara Galeano NP - Last Filed: 03/25/24 11:21> Discharge Plan Discharge Anticipated Discharge Date/Time: 03/20/24 14:48 <Barbara Galeano NP - Last Filed: 03/25/24 11:21> Patient Disposition: Xfer Psychiatric Hosp <Barbara Galeano NP - Last Filed: 03/25/24 11:21> Discharge Diagnosis: Suicidal ideation MSSA bacteremia (diagnosed last admission) Abdominal pain secondary to alcoholic liver cirrhosis <Barbara Galeano NP - Last Filed: 03/25/24 11:21> Suicidal ideation MSSA bacteremia (diagnosed last admission) Abdominal pain secondary to alcoholic liver cirrhosis <Myleskyle Parks MD - Last Filed: 03/21/24 19:06> Discharge Medications: New furosemide 20 mg Tablet 20 mg PO DAILY Qty: 1 0RF Protocol: Hold for SBP< HOLD for SBP < : 90 Continued melatonin 3 mg tablet 3 mg PO BEDTIME clopidogrel 75 mg tablet 75 mg PO DAILY pantoprazole 40 mg tablet,delayed release (DR/EC) 40 mg PO DAILY@0630 buspirone 10 mg tablet 10 mg PO BID folic acid 1 mg tablet 1 mg PO DAILY quetiapine 50 mg tablet 50 mg PO BEDTIME Jardiance 10 mg tablet 10 mg PO DAILY buspirone 30 mg tablet 15 mg PO BID Xifaxan 550 mg Tablet 550 mg PO BID Qty: 60 0RF lactulose 20 gram/30 mL Solution 20 g PO TID Qty: 1200 0RF thiamine mononitrate (vit B1) 100 mg Tablet 100 mg PO DAILY 30 Days Qty: 30 0RF insulin lispro [Admelog U-100 Insulin lispro] 100 unit/mL Solution See Protocol subcut QIDACHS Qty: 10 0RF Protocol: Insulin Correction Scale Less than or equal to 110 ---- Give (units): 0 111 to 150 Give (units): 0 151 to 200 Give (units): 2 201 to 250 Give (units): 4 251 to 300 Give (units): 6 301 to 350 Give (units): 8 Greater than 350 Give (units): 10 Call if Blood Glucose > : 350 buprenorphine-naloxone [Suboxone] 8-2 mg film 1 film sublingual TID Qty: 90 0RF bupropion HCl 150 mg Tablet Extended Release 24 Hr 150 mg PO BID@0900,1500 30 Days Qty: 60 0RF fluticasone furoate-vilanterol [Breo Ellipta] 100-25 mcg/dose blister with device 1 ea inhalation DAILY 30 Days Qty: 60 0RF Biktarvy 50-200-25 mg tablet 1 tab PO DAILY 30 Days Qty: 30 0RF Discontinued cephalexin 500 mg capsule 500 mg PO Q12H Qty: 26 0RF No Action cefazolin in dextrose (iso-os) 2 gram/100 mL piggyback 100 ml IV Q8H <Barbara Galeano NP - Last Filed: 03/25/24 11:21> Discharge Orders: Discharge Order (Routine); Ordered 03/20/24 Ordered By: Donya Melendez <Barbara Galeano NP - Last Filed: 03/25/24 11:21> Diet: Advance to usual diet <Barbara Galeano NP - Last Filed: 03/25/24 11:21> Advance to usual diet <Myles Parks MD - Last Filed: 03/21/24 19:06> Activity on Discharge: As tolerated <Barbara Galeano NP - Last Filed: 03/25/24 11:21> As tolerated <Myles Parks MD - Last Filed: 03/21/24 19:06> Stand Alone Forms: Patient Portal Discharge page <Barbara Galeano NP - Last Filed: 03/25/24 11:21> Print Language: Latvian <Barbara Galeano NP - Last Filed: 03/25/24 11:21> Care Plan Goals: Continue IV cefazolin 2 g every 8 hours. End date March 29. RN may remove PICC line or refer to Interventional Radiology after last dose. <Barbara Galeano NP - Last Filed: 03/25/24 11:21> Health Concerns: Suicidal ideation MSSA bacteremia (diagnosed last admission) Abdominal pain secondary to alcoholic liver cirrhosis, recurrenat abdominal ascites <Barbara Galeano NP - Last Filed: 03/25/24 11:21> Plan of Treatment: Follow-up with gastroenterology for HIV - follow up with ID Take all medications as prescribed will start low dose lasix, 20 mg daily; if tolerates, can start aldactone 50 bid monitor renal function and electrolytes closely while starting diuretics If recurrent ascites can check limited abdominal ultrasound and obtain therapeutic paracentesis <Barbara Galeano NP - Last Filed: 03/25/24 11:21> Assessment: See discharge summary <Barbara Galeano NP - Last Filed: 03/25/24 11:21> Discharge Date/Time: 03/20/24 16:08 <Barbara Galeano NP - Last Filed: 03/25/24 11:21>
[2024-03-19] MEDS: oxyCODONE HCl Immed Release 5 MG TABLET PO (16:43)
--- NOTE | 2024-03-19 18:24 | MHC.CARE ---
Per Candace @ [facility], pt is accepted to [facility] for tonight 03/19. ETA REMI. Dr. Ann Stuart is accepting. Accepting facility will call for N2N
--- NOTE | 2024-03-19 20:30 | PC.NURSE ---
Addendum entered by Peg Harp RN 03/20/24 05:43: Santo, [employer] took message from Sandra Diaz and relayed to RN. Addendum entered by Peg Harp RN 03/20/24 05:42: [facility] unable to accept patient r/t LUE midline. Original Note: [facility] called, patient to be d/c'd for bed 03/20/2024 for 09:00.
[2024-03-19] MEDS: QUEtiapine Fumarate 50 MG TABLET PO (21:36)
[2024-03-19] MEDS: Melatonin 3 MG TABLET 6 MG PO (21:36)
[2024-03-20 03:17] VITALS: BP 99/57; PULSE 75; RESP 14; TEMP 36.5; O2SAT 92
--- NOTE | 2024-03-20 05:44 | PC.NURSE ---
a&ox3, forgetful of date intermittently. pt pleasant and cooperative care. pt keeps stating that he is moving to today. Medicated per mar, tolerating antibiotic well. ambulating with 1:1 sitter (SI) without difficulty, some mild to moderate weakness with movement and ambulation. patient continues to have thoughts of suicide with a plan and starts to cry when thinking about his family. see SI assessment. PT reports a vasovagal episode after defecating around 23:45. No syncopal episode. Patient endorsed dizziness and sweating. RN took orthostatic VS at the time this occured- sitting 110/74, lying 108/70, and standing he was 106/68. Provider notified later in the shift - recommend to keep patient high fall risk and to utilize the sitter to assist with ambulation. patient educated to stand up slowly and not push too hard when having a bowel movement. patient states understanding, repeating back education to RN. No new reports of vasovagal or syncopal episodes this night. safety and comfort maintained, sitter remains at bedside for patient safety.
[2024-03-20] MEDS: Pantoprazole Sodium 20 MG TABLET.DR 40 MG PO (06:19)
[2024-03-20] MEDS: ceFAZolin Sodium/Dextrose,Iso 2 GM/50 ML PIGGYBACK IV ×2 (06:20→14:35)
[2024-03-20 07:53] VITALS: BP 116/65; PULSE 75; RESP 16; TEMP 36.4; O2SAT 93
[2024-03-20] MEDS: Fluticasone/Vilanterol 100/25 BLST.W.DEV 1 PUFF INHALE (08:28)
[2024-03-20 08:29] VITALS: PULSE 88; RESP 16; O2SAT 89
[2024-03-20] MEDS: Lactulose 20 GM/30 ML SOLUTION PO ×2 (09:17→14:35)
[2024-03-20] MEDS: busPIRone HCl 5 MG TABLET 15 MG PO (09:17)
[2024-03-20] MEDS: rifAXIMin 550 MG TABLET PO (09:18)
[2024-03-20] MEDS: Folic Acid 1 MG TABLET PO (09:18)
[2024-03-20] MEDS: Bictegrav/Emtricit/Tenofov Ala TABLET 1 TAB PO (09:18)
[2024-03-20] MEDS: buPROPion HCl XL 150 MG TAB.ER.24H PO ×2 (09:18→14:35)
[2024-03-20] MEDS: busPIRone HCl 10 MG TABLET PO (09:18)
[2024-03-20] MEDS: Thiamine HCL 100 MG TABLET PO (09:18)
[2024-03-20] MEDS: Empagliflozin 10 MG TABLET PO (09:18)
[2024-03-20] MEDS: Clopidogrel Bisulfate 75 MG TABLET PO (09:18)
[2024-03-20] MEDS: Buprenorphine/Naloxone 8/2 mg FILM 1 FILM SUBLINGUAL ×2 (09:18→14:35)
[2024-03-20] MEDS: oxyCODONE HCl Immed Release 5 MG TABLET PO (10:21)
--- NOTE | 2024-03-20 11:28 | MHC.CM.PN ---
Addendum entered by Angy Hobbs RN 03/20/24 15:09: [place] [facility]. Original Note: Per MD rounds patient remains I/P psych bed search. Midline in place for IV abx w/ stop date of 03/29. CM will continue to follow.
[2024-03-20 12:08] LABS: Hematocrit 36.6 % (42.0-52.0); Hemoglobin 12.7 g/dl (14.0-18.0); Mean Corpuscular HGB Conc 34.7 g/dl (31.0-36.0); Mean Corpuscular Hemoglobin 34.6 pg (27.0-33.0); Mean Corpuscular Volume 99.7 fL (80.0-98.0); Mean Platelet Volume 11.6 fL (9.4-12.4); Platelet Count 163 X10*3/uL (160-400); Red Blood Count 3.67 X10*6/uL (4.60-5.80); Red Cell Distribution Width 14.8 % (11.0-16.0); White Blood Count 14.8 X10*3/uL (4.8-10.8)
--- NOTE | 2024-03-20 14:38 | P.CNPS_ITS ---
History of Present Illness Date of Service: t Chief Complaint: Bacteremia, suicidal ideation Reason for Consult: Assessment if the patient is inpatient level of care for Psychiatry Discussed with referring provider: Yes Sources of Information: patient interviewed, chart reviewed and crisis/core team assessment reviewed HPI Narrative: The patient is a 59-year-old male with a past history of bipolar disorder, cocaine use disorder, opiate use disorder and alcohol use disorder who was recently admitted after sepsis and other several medical conditions that required inpatient level of care. The present consult was asked to assess if the patient needs inpatient level of care in Psychiatry. On interview, the patient is very well known by me since I treated him for ECT last year. 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 After the medical episode, the patient reports he is feeling very tired and weak and he has passive suicidal ideation. The patient complained of racing thoughts, flight of ideas and sporadic dysphoria. There is no evidence of psychotic symptoms and he is willing to cooperate in Psychiatry. We discussed with the treatment team and we decided to transfer him to Psychiatry Past Psychiatric History: Past psychiatric hospitalizations History of ECT 2019 Multiple medication trials Medical Evaluation Reviewed: Yes [facility] Medical History MSSA bacteremia Cocaine abuse Opioid abuse MDD (major depressive disorder), recurrent severe, without psychosis Coccygeal pain Acute foot pain IBS (irritable bowel syndrome) COPD (chronic obstructive pulmonary disease) Prediabetes Colitis Hypertension PTSD (post-traumatic stress disorder) Osteoarthritis of both hips Opioid dependence Hepatitis C HIV infection Surgical History Status post right shoulder hemiarthroplasty History of right hip replacement Family History: Sister: Bipolar disorder Social History: Raised his kids and 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 After his father , lost access to the mobile home and has been homeless for the past 2 years Substance History: Past history of cocaine use disorder, opiate use disorder Trauma History: Childhood trauma Diagnostics Vital Signs (24Hr): Vital Signs - 24 hr 03/19/24 15:51 03/19/24 19:30 03/19/24 23:16 Temperature 97.6 F 97.8 F 98.8 F Pulse Rate 75 75 76 Respiratory Rate 18 16 16 Blood Pressure 104/65 113/63 111/64 Pulse Oximetry 90 L 92 93 Oxygen Delivery Method Room Air Room Air Room Air 03/20/24 03:17 03/20/24 07:53 03/20/24 08:29 Temperature 97.7 F 97.6 F Pulse Rate 75 75 88 Respiratory Rate 14 16 16 Blood Pressure 99/57 L 116/65 Pulse Oximetry 92 93 Oxygen Delivery Method Room Air Room Air BMI result Body Mass Index 27.5 Labs 03/20/24 11:27 03/19/24 07:27 Labs: Laboratory Results - last 48 hr 03/19/24 03/20/24 07:27 11:27 WBC 14.8 H RBC 3.67 L Hgb 12.7 L Hct 36.6 L MCV 99.7 H MCH 34.6 H MCHC 34.7 RDW 14.8 Plt Count 163 MPV 11.6 Absolute Nucleated RBC 0.000 Nucleated RBC % (auto) 0.0 Sodium 135 Potassium 3.6 Chloride 104 Carbon Dioxide 24 Anion Gap 11 L BUN 12 Creatinine 0.77 Estim Creat Clear Calc 118.1 Estimated GFR > 60 Random Glucose 95 Calcium 7.8 L Total Bilirubin 4.3 H Direct Bilirubin 2.7 H AST 50 H ALT 7 Alkaline Phosphatase 221 H Total Protein 6.2 L Albumin 2.4 L Imaging Radiology Impressions: ITS Impressions Abdomen Ultrasound 03/17/24 10:52 IMPRESSION: Small to moderate volume ascites greatest in the right upper quadrant. Mental Status Exam Mental Status Exam Patient Appearance: Appropriate Patient Orientation: Person and Situation Level of Consciousness: Awake and Appropriate Patient Behavior: Appropriate, Cooperative and Passive Mood Description: Calm Affect Description: Constricted Patient Cognition Impaired: Yes Ability to Follow Directions: Good Speech Pattern: Clear Hallucinations: None Delusions: Not Present Thought Process: Distracted and Slowed Thinking Thought Content: positive for [place] and positive for Poverty of Content Judgement: Fair Medications Medications Current Medications Bictegravir/Emtricitabine/Tenofovir (Bictegrav/Emtricit/Tenofov Ala Tablet) 1 tab PO DAILY [facility] Last Admin: 03/20/24 09:18 Dose: 1 tab Buprenorphine/Naloxone (Buprenorphine/Naloxone 8/2 Mg Film) 1 film SUBLINGUAL TID [facility] Last Admin: 03/20/24 09:18 Dose: 1 film Bupropion HCl (Bupropion Hcl Xl 150 Mg Tab.Er.24h) 150 mg PO BID@0900,1500 [facility] Last Admin: 03/20/24 09:18 Dose: 150 mg Buspirone HCl (Buspirone Hcl 10 Mg Tablet) 10 mg PO BID [facility] Last Admin: 03/20/24 09:18 Dose: 10 mg Buspirone HCl (Buspirone Hcl 5 Mg Tablet) 15 mg PO BID [facility] Last Admin: 03/20/24 09:17 Dose: 15 mg Clopidogrel Bisulfate (Clopidogrel Bisulfate 75 Mg Tablet) 75 mg PO DAILY [facility] Last Admin: 03/20/24 09:18 Dose: 75 mg Empagliflozin (Empagliflozin 10 Mg Tablet) 10 mg PO DAILY [facility] Last Admin: 03/20/24 09:18 Dose: 10 mg Fluticasone/Vilanterol (Fluticasone/Vilanterol 100/25 Blst.W.Dev) 1 puff INHALE DAILY [facility] Last Admin: 03/20/24 08:28 Dose: 1 puff Folic Acid (Folic Acid 1 Mg Tablet) 1 mg PO DAILY [facility] Last Admin: 03/20/24 09:18 Dose: 1 mg Cefazolin Sodium/Dextrose (Ancef) 2 gm in 50 mls @ 100 mls/hr IV Q8H [facility] Last Infusion: 03/20/24 08:04 Dose: Infused Lactulose (Lactulose 20 Gm/30 Ml Solution) 20 gm PO TID [facility] Last Admin: 03/20/24 09:17 Dose: 20 gm Melatonin (Melatonin 3 Mg Tablet) 6 mg PO BEDTIME PRN PRN Reason: Insomnia Last Admin: 03/19/24 21:36 Dose: 6 mg Ondansetron HCl (Ondansetron Hcl 4 Mg/2 Ml Vial) 4 mg IVPUSH Q6H PRN PRN Reason: Nausea and Vomiting Last Admin: 03/17/24 10:36 Dose: 4 mg Oxycodone HCl (Oxycodone Hcl Immed Release 5 Mg Tablet) 5 mg PO Q6H PRN PRN Reason: Pain, Severe (Pain Scale 7-10) Last Admin: 03/20/24 10:21 Dose: 5 mg Pantoprazole Sodium (Pantoprazole Sodium 20 Mg Tablet.) 40 mg PO DAILY@0630 [facility] Last Admin: 03/20/24 06:19 Dose: 40 mg Quetiapine Fumarate (Quetiapine Fumarate 50 Mg Tablet) 50 mg PO BEDTIME [facility] Last Admin: 03/19/24 21:36 Dose: 50 mg Rifaximin (Rifaximin 550 Mg Tablet) 550 mg PO BID [facility] Last Admin: 03/20/24 09:18 Dose: 550 mg Sodium Chloride (0.9 % Sodium Chloride Flush 3 Ml Syringe) 3 ml IVFLUSH QSHIFT [facility] Last Admin: 03/20/24 09:18 Dose: Not Given Thiamine HCl (Thiamine Hcl 100 Mg Tablet) 100 mg PO DAILY [facility] Last Admin: 03/20/24 09:18 Dose: 100 mg Allergies Allergies Allergy/AdvReac Type Severity Reaction Status Date / Time ketorolac [From Toradol] AdvReac Itching Verified 03/16/24 19:06 Assessment & Plan Assessment & Plan (1) Alcoholic hepatitis: Status: Acute Code(s): K70.10 - Alcoholic hepatitis without ascites (2) Opioid dependence: Status: Acute Code(s): F11.20 - Opioid dependence, uncomplicated (3) COPD (chronic obstructive pulmonary disease): Status: Acute Code(s): J44.9 - Chronic obstructive pulmonary disease, unspecified (4) HIV infection: Status: Acute Code(s): B20 - Human immunodeficiency virus [HIV] disease (5) Cocaine abuse: Status: Acute Code(s): F14.10 - Cocaine abuse, uncomplicated (6) Opioid abuse: Status: Acute Code(s): F11.10 - Opioid abuse, uncomplicated (7) PTSD (post-traumatic stress disorder): Status: Acute Code(s): F43.10 - Post-traumatic stress disorder, unspecified (8) Bipolar 1 disorder: Status: Acute Code(s): F31.9 - Bipolar disorder, unspecified Plan The patient is a middle-aged male with a past history of bipolar disorder, HIV, cocaine use disorder, opiate use disorder, alcohol use disorder and recently admitted by bacteremia with 2 sepsis referred by the primary team for assessment if the patient has inpatient level of care criteria for Psychiatry. At this moment the patient reports unstable mood with racing thoughts and dysphoria unable to take care of himself. We discussed at length risks, benefits, side-effects and alternatives and he agreed to go to Psychiatry. Plan 1. The patient agreed to go to Psychiatry the patient can sign a conditional voluntary he has capacity to take informed decisions. 2. Continue with regular treatment. 3. Coordinate with crisis team for bed search. 4. Reassessment as demand. Total time managing care of this patient today __30__ minutes. Patient educated on: diagnosis Informed Consent: understands
--- NOTE | 2024-03-20 14:52 | P.DS_ITS ---
DS: Providers Provider Date of Service: 03/20/24 Date of admission: 03/16/24 21:51 Date of discharge: 03/20/24 Primary care physician: Shayy Nielson NP Consults: 03/16/24 21:45 Consult to Care Team Stat Comment: Reason for consultation: Depression, SI 03/18/24 08:57 Consult to Care Team Routine Comment: Reason for consultation: suicide ideation 03/18/24 11:06 Consult for Sitter Routine Reason for consultation: SI Has provider been notified: No 03/20/24 13:38 Consult to Psychiatry Routine Consulting Provider: Psych Covering Reason for consultation: SI, depression Has provider been notified: No Attending physician on discharge: Clayton Ambrose Discharging clinician: Donya Melendez DS: Diagnosis Discharge Diagnosis (1) Alcoholic hepatitis: Status: Acute (2) Opioid dependence: Status: Acute (3) COPD (chronic obstructive pulmonary disease): Status: Acute (4) HIV infection: Status: Acute (5) Cocaine abuse: Status: Acute (6) Opioid abuse: Status: Acute (7) PTSD (post-traumatic stress disorder): Status: Acute (8) Bipolar 1 disorder: Status: Acute DS: Summary Hospital Course Hospital Course: History and physical as per admitting provider. Wilver Damian is a 59 years old man with past medical history significant for chronic liver disease due to alcohol abuse, chronic hep C, opiate abuse on Suboxone and bipolar disorder presents to the emergency department via EMS with suicidal thoughts. He was recently hospitalized due to bacteremia and left the hospital against medical advice today. He said that he was about to jump off a bridge into the river because he is very depressed. He lost a twin sister about 2 years ago. He reports some nausea and abdominal discomfort. Been having loose stools. He did not report any acute cardiopulmonary or genitourinary symptoms. He denied recent consumption of alcohol or drugs. In the ED, he was found to have normal vital signs. Blood workup showed leukocytosis of 27.3, hemoglobin of 12 and platelets of 222. There is slight hyponatremia 133. There are no other electrolyte imbalances. LFTs are similar to prior. INR is 2.9. Renal function is normal. ED tx: None. 59-year-old man treated for suicidal ideation. He had one-to-one observation, was seen evaluated by care team with recommendation for psychiatric admission. Patient has a history of MSSA bacteremia that was diagnosed during his last admission. He is on Kefzol IV every 8 hours to complete course on March 29. Midline can be removed after final dose of antibiotics He has some chronic abdominal pain secondary to alcoholic liver cirrhosis. He has not required any paracentesis during this admission, abdominal ultrasound ordered which showed small to moderate amount of ascites. If abdominal distention worsens would recommend checking limited ultrasound to assess for increasing ascites, can have therapeutic paracentesis by IR if necessary. We will start low-dose Lasix 20 mg daily, if patient tolerates would recommend adding Aldactone 50 mg b.i.d.. Monitor renal function and electrolytes daily for the 1st several days and then weekly while receiving antibiotics. Will need outpatient follow up with GI. Was started on rifaximin in addition to lactulose. goal for 2-3 bowel movements daily to prevent hepatic encephalopathy. Leukocytosis. Chronically elevated likely secondary to alcoholic liver cirrhosis. History of alcohol abuse. Had no evidence of withdrawal during this hospitalization. Continue thiamine and folic acid supplementation History of opiate abuse. Continue Suboxone. He is interested in returning to [facility] after psychiatric admission Chronic normocytic anemia. Secondary to liver disease Mental health. Continue bupropion, BuSpar and Seroquel. dose of seroquel had been decreased on last admission due to sedation and acute medical issues. HIV. Continue Biktarvy. Will need outpatient follow-up with specialist COPD not in exacerbation during hospitalization. Continue inhalers History of carotid artery stenosis. Continue Plavix History of hepatitis-C infection. Follow with specialist outpatient Patient will be discharged to inpatient psych for further care of depression and suicidal ideation Time Attestation Discharge Coordination Time (in mins): 40 Quality: Safe Use of Opioids Does Pt have an Active Cancer Diagnosis on the Problem List?: No Quality: Stroke Does the patient have a stroke diagnosis?: No Physical Exam Vital Signs: Vital Signs: Last Vital Signs Temp 97.6 F 03/20/24 07:53 Pulse 88 03/20/24 08:29 Resp 16 03/20/24 08:29 BP 116/65 03/20/24 07:53 Pulse Ox 93 03/20/24 07:53 O2 Del Method Room Air 03/20/24 07:53 O2 Flow Rate 2 03/18/24 11:51 BMI result Body Mass Index 27.5 Const: General: cooperative, comfortable, no acute distress and alert Nutritional Appearance: average body habitus Orientation/consciousness: patient oriented x3 Resp: Effort & Inspection: normal respiratory effort, able to speak in complete sentences, no respiratory distress and no use of accessory muscles Cardio: Rate: regular rate GI: Other: non-distended, non-tender Palpation (GI): Soft to palpation Neuro: Other: grossly nonfocal; no asterixis General: patient oriented x3 and moves all extremities DS: Data Data Completed and Pending Completed studies during hospitalization [Text1]: Procedures Drainage of Spinal Canal, Percutaneous Approach, Diagnostic (09/06/22) Other Electroconvulsive Therapy (04/18/23) Labs on day of discharge: Laboratory Results - last 24 hr 03/20/24 11:27 WBC 14.8 H RBC 3.67 L Hgb 12.7 L Hct 36.6 L MCV 99.7 H MCH 34.6 H MCHC 34.7 RDW 14.8 Plt Count 163 MPV 11.6 Absolute Nucleated RBC 0.000 Nucleated RBC % (auto) 0.0 Discharge Plan Discharge Anticipated Discharge Date/Time: 03/20/24 14:48 Patient Disposition: Xfer Psychiatric Hosp Discharge Diagnosis: Suicidal ideation MSSA bacteremia (diagnosed last admission) Abdominal pain secondary to alcoholic liver cirrhosis Discharge Medications: New cefazolin in dextrose (iso-os) 2 gram/100 mL piggyback 2 ml IV Q8H Qty: 1200 0RF furosemide 20 mg Tablet 20 mg PO DAILY Qty: 1 0RF Protocol: Hold for SBP< HOLD for SBP < : 90 Continued melatonin 3 mg tablet 3 mg PO BEDTIME clopidogrel 75 mg tablet 75 mg PO DAILY pantoprazole 40 mg tablet,delayed release (DR/EC) 40 mg PO DAILY@0630 buspirone 10 mg tablet 10 mg PO BID folic acid 1 mg tablet 1 mg PO DAILY quetiapine 50 mg tablet 50 mg PO BEDTIME Jardiance 10 mg tablet 10 mg PO DAILY buspirone 30 mg tablet 15 mg PO BID Xifaxan 550 mg Tablet 550 mg PO BID Qty: 60 0RF lactulose 20 gram/30 mL Solution 20 g PO TID Qty: 1200 0RF thiamine mononitrate (vit B1) 100 mg Tablet 100 mg PO DAILY 30 Days Qty: 30 0RF insulin lispro [Admelog U-100 Insulin lispro] 100 unit/mL Solution See Protocol subcut QIDACHS Qty: 10 0RF Protocol: Insulin Correction Scale Less than or equal to 110 ---- Give (units): 0 111 to 150 Give (units): 0 151 to 200 Give (units): 2 201 to 250 Give (units): 4 251 to 300 Give (units): 6 301 to 350 Give (units): 8 Greater than 350 Give (units): 10 Call MD if Blood Glucose > : 350 buprenorphine-naloxone [Suboxone] 8-2 mg film 1 film sublingual TID Qty: 90 0RF bupropion HCl 150 mg Tablet Extended Release 24 Hr 150 mg PO BID@0900,1500 30 Days Qty: 60 0RF fluticasone furoate-vilanterol [Breo Ellipta] 100-25 mcg/dose blister with device 1 ea inhalation DAILY 30 Days Qty: 60 0RF Biktarvy 50-200-25 mg tablet 1 tab PO DAILY 30 Days Qty: 30 0RF Discontinued cephalexin 500 mg capsule 500 mg PO Q12H Qty: 26 0RF Discharge Orders: Discharge Order (Routine); Ordered 03/20/24 Ordered By: Donya Melendez Diet: Advance to usual diet Activity on Discharge: As tolerated Stand Alone Forms: Patient Portal Discharge page Print Language: Malay Care Plan Goals: Continue IV cefazolin 2 g every 8 hours. End date March 29. RN may remove PICC line or refer to Interventional Radiology after last dose. Health Concerns: Suicidal ideation MSSA bacteremia (diagnosed last admission) Abdominal pain secondary to alcoholic liver cirrhosis, recurrenat abdominal ascites Plan of Treatment: Follow-up with gastroenterology for HIV - follow up with ID Take all medications as prescribed will start low dose lasix, 20 mg daily; if tolerates, can start aldactone 50 bid monitor renal function and electrolytes closely while starting diuretics If recurrent ascites can check limited abdominal ultrasound and obtain therapeutic paracentesis Assessment: See discharge summary
[2024-03-20 15:09] VITALS: BP 108/58; PULSE 75; RESP 18; TEMP 36.8; O2SAT 93
[2024-03-20 15:20] VITALS: BP 108/58
[2024-03-20] MEDS: Furosemide 20 MG TABLET PO (15:20)
[2024-03-20] MEDS: 0.9 % Sodium Chloride Flush 3 ML SYRINGE IVFLUSH (15:22)
== END 2024-03-20 16:08 | DRG 433 ==
LOC: HO.ED 21:56 → HO.EDOVER 22:02 → HO.S3 03-17 08:57
PROVIDERS: Nurse Practitioner Acute Care; Admitting Provider Internal Medicine; Emergency Provider Student in an Organized Health Care Education/Training Program; PCP Nurse Practitioner Primary Care; Visit Provider Physician Assistant Medical
DX: K70.10 Alcoholic hepatitis without ascites (principal); F11.20 Opioid dependence, uncomplicated; R45.851 Suicidal ideations; R78.81 Bacteremia; F31.9 Bipolar disorder, unspecified; K70.30 Alcoholic cirrhosis of liver without ascites; Z21 Asymptomatic human immunodeficiency virus [HIV] infection status; F10.10 Alcohol abuse, uncomplicated; I65.29 Occlusion and stenosis of unspecified carotid artery; D63.8 Anemia in other chronic diseases classified elsewhere; B95.61 Methicillin susceptible Staphylococcus aureus infection as the cause of diseases classified elsewhere; J44.9 Chronic obstructive pulmonary disease, unspecified; Z86.19 Personal history of other infectious and parasitic diseases; Z79.4 Long term (current) use of insulin; Z79.02 Long term (current) use of antithrombotics/antiplatelets; Z79.51 Long term (current) use of inhaled steroids; Z79.899 Other long term (current) drug therapy
CPT/HCPCS: 36410; 36415; 76705; 80048; 80053; 80076; 80307; 81001; 82947; 85025; 85027; 87086; 93005; 94640; 99285; C1751; J0690; J2405; S9485

== ENCOUNTER → 2024-03-16 19:22 | Outpatient (BNV) | payer OTHER, SELFPAY | PROVIDERS: Admitting Provider Internal Medicine; Emergency Provider Student in an Organized Health Care Education/Training Program; PCP Nurse Practitioner Primary Care; Visit Provider Internal Medicine Cardiovascular Disease | DX: R94.31 Abnormal electrocardiogram [ECG] [EKG] (principal) | CPT/HCPCS: 93010 ==

== ENCOUNTER → 2024-03-16 21:51 | Outpatient (BNV) | payer OTHER, SELFPAY | PROVIDERS: Admitting Provider Internal Medicine; Emergency Provider Student in an Organized Health Care Education/Training Program; PCP Nurse Practitioner Primary Care; Visit Provider Psychiatry & Neurology Psychiatry | DX: F31.4 Bipolar disorder, current episode depressed, severe, without psychotic features (principal); F14.10 Cocaine abuse, uncomplicated; F11.20 Opioid dependence, uncomplicated; F43.11 Post-traumatic stress disorder, acute | CPT/HCPCS: 90792 ==

== ENCOUNTER → 2024-03-16 21:51 | Outpatient (BNV) | payer OTHER, SELFPAY | PROVIDERS: Admitting Provider Internal Medicine; Emergency Provider Student in an Organized Health Care Education/Training Program; Visit Provider Internal Medicine | DX: R45.851 Suicidal ideations (principal); R78.81 Bacteremia | CPT/HCPCS: 99223; 99232; 99239 ==

== ENCOUNTER 2024-03-20 17:51 | Inpatient (IN) | payer OTHER, SELFPAY ==
--- NOTE | ~2024-03-20 | XR_ITS ---
EXAMINATION: XR CHEST CLINICAL INFORMATION: Cough, question pneumonia. COMPARISON: Chest x-ray 03/12/2024. TECHNIQUE: Frontal view of the chest was obtained. FINDINGS: Low lung volumes. The cardiomediastinal silhouette is stable. Bronchovascular crowding in the setting of hypoexpansion but no focal consolidation. Likely atelectasis at the lung bases. No effusion or pneumothorax. XR/XR chest 1V IMPRESSION: Limited evaluation due to pulmonary hyperexpansion. No focal pneumonia.
--- NOTE | ~2024-03-20 | US_ITS ---
EXAMINATION: US ABDOMEN LIMITED CLINICAL INFORMATION: Ascites check for possible paracentesis. COMPARISON: Ultrasound abdomen 03/17/2024. TECHNIQUE: Real-time imaging of all 4 quadrants of the abdomen. FINDINGS: Moderate to large amount of ascites is present in all 4 quadrants. There is certainly enough ascites present to perform a paracentesis. US/US abdomen limited IMPRESSION: Moderate ascites.
[2024-03-20 18:25] VITALS: BP 134/71; PULSE 75; RESP 15; TEMP 36.4; O2SAT 96
[2024-03-20 18:28] VITALS: BMI 25.1
--- NOTE | 2024-03-20 20:02 | PC.ADMIT ---
Wilver arrived on M5 via wheelchair from [place] [address] room 373-1. On S3 he had been being treated with IV antibiotics for MRSA bacteremia. He currently has PICC line left upper arm. IV site intact and dressing is clean and dry. He was medically cleared however he continued to endorse suicidal ideation while on S3 so he was discharged from S3 and readmitted to M5 on a Section 12a. He was seen by Dr. Dill and a CV was signed. Skin check was done immediately upon admission. He has multiple tatoos on his face and his trunk. He also has a DSD on the right side of his abdomen. He refused dinner and stated his appetite has been poor and he has had significant weight loss since he has had ascites. He stated about the dressing on his abdomen I had 70 pounds of bile removed from my liver. He was escorted to his room and immediate. Unit orientation was omitted as pt. has been a inpatient on M5 previously. Admission assessment, Initial treatment plan and Safety Tool were completed. Pt. did complain of feeling very fatigued. He refused dinner and stated his appetite has been poor and he has had significant weight loss since he has had ascites. He went to bed and immediately fell asleep.
[2024-03-20] MEDS: busPIRone HCl 10 MG TABLET PO (20:35)
[2024-03-20] MEDS: Buprenorphine/Naloxone 8/2 mg FILM 1 FILM SUBLINGUAL (20:35)
[2024-03-20] MEDS: hydrOXYzine HCL 25 MG TABLET PO (20:36)
[2024-03-20] MEDS: traZODone HCL 50 MG TABLET PO (20:36)
[2024-03-20] MEDS: busPIRone HCl 5 MG TABLET 15 MG PO (20:36)
[2024-03-20] MEDS: ceFAZolin Sodium/Dextrose,Iso 2 GM/50 ML PIGGYBACK IV (21:22)
[2024-03-20] MEDS: QUEtiapine Fumarate 50 MG TABLET PO (22:01)
[2024-03-20] MEDS: Melatonin 3 MG TABLET PO (22:01)
[2024-03-20] MEDS: rifAXIMin 550 MG TABLET PO (22:01)
[2024-03-20] MEDS: Lactulose 20 GM/30 ML SOLUTION PO (22:01)
[2024-03-21] MEDS: ceFAZolin Sodium/Dextrose,Iso 2 GM/50 ML PIGGYBACK IV ×3 (05:00→22:59)
[2024-03-21] MEDS: Pantoprazole Sodium 20 MG TABLET.DR 40 MG PO (06:20)
[2024-03-21 08:20] VITALS: BP 106/71; PULSE 73; RESP 18; TEMP 36.4; O2SAT 96
[2024-03-21] MEDS: Bictegrav/Emtricit/Tenofov Ala TABLET 1 TAB PO (08:36)
[2024-03-21] MEDS: Clopidogrel Bisulfate 75 MG TABLET PO (08:36)
[2024-03-21] MEDS: busPIRone HCl 5 MG TABLET 15 MG PO ×2 (08:36→22:04)
[2024-03-21] MEDS: busPIRone HCl 10 MG TABLET PO ×2 (08:36→22:07)
[2024-03-21] MEDS: buPROPion HCl XL 150 MG TAB.ER.24H PO ×2 (08:36→14:08)
[2024-03-21] MEDS: Folic Acid 1 MG TABLET PO (08:36)
[2024-03-21] MEDS: Thiamine HCL 100 MG TABLET PO (08:36)
[2024-03-21] MEDS: Furosemide 20 MG TABLET PO (08:36)
[2024-03-21] MEDS: Empagliflozin 10 MG TABLET PO (08:36)
[2024-03-21] MEDS: rifAXIMin 550 MG TABLET PO ×2 (08:37→22:06)
[2024-03-21] MEDS: Buprenorphine/Naloxone 8/2 mg FILM 1 FILM SUBLINGUAL ×3 (08:37→22:03)
[2024-03-21] MEDS: Lactulose 20 GM/30 ML SOLUTION PO ×3 (08:37→22:09)
[2024-03-21 08:56] LABS: Glucose, Whole Blood 100 mg/dL (60-115)
--- NOTE | 2024-03-21 09:02 | P.HPPS_ITS ---
HPI Date of Service: 03/21/24 Chief Complaint: SI depression Sources of Information: patient interviewed, chart reviewed and crisis/core team assessment reviewed HPI Subjective Notes: Mir Warning and Conditional Voluntary Narrative: Patient is a 59-year-old male with history of depression, PTSD, opiate/alcohol dependence, HIV, alcohol hepatitis, hep C, portal hypotension/ascites, COPD who was transferred from the medical floor to [facility] for SI, following treatment for MSSA bacteremia, currently on IV antibiotics. Patient was being treated for MSSA bacteremia for several weeks on the hospital floor during which time he also developed: 1.encephalopathy from elevated liver enzymes/ammonia (resolved now on lactulose and rifaximin) 2.small-bowel obstruction, now resolved with conservative treatment 3.Aspiration pneumonia, resolving 4.DELMI, resolved 5.Recurrent ascites with paracentesis x2 While on medical floor, patient was accepted to a sniff but left AMA; he came back the next day was admitted again and reported SI to jump off a bridge. Patient says that is mind was not right to tolerate going to a sniff so he left AMA, quickly finding himself depressed and walked over to a bridge, thinking of jumping; he says he saw the face of his sister who said come join me... Patient however self presented to the hospital, not wanting to and citing several protective factors including seeing certain family members grow up. Past Psychiatric History: Past psychiatric hospitalizations History of ECT 2019 Multiple medication trials Medical Evaluation Reviewed: Yes FOR[facility]LY [facility] Medical History MSSA bacteremia Cocaine abuse Opioid abuse MDD (major depressive disorder), recurrent severe, without psychosis Coccygeal pain Acute foot pain IBS (irritable bowel syndrome) COPD (chronic obstructive pulmonary disease) Prediabetes Colitis Hypertension PTSD (post-traumatic stress disorder) Osteoarthritis of both hips Opioid dependence Hepatitis C HIV infection Surgical History Status post right shoulder hemiarthroplasty History of right hip replacement Family History: Sister: Bipolar disorder Social History: Raised his kids and [facility] 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 After his father , lost access to the mobile home and has been homeless for the past 2 years Substance History: Chronic, severe alcohol abuse Trauma History: Childhood trauma Diagnostics Vital Signs (24Hr): Vital Signs - 24 hr 03/20/24 18:25 Temperature 97.5 F Pulse Rate 75 Respiratory Rate 15 Blood Pressure 134/71 Pulse Oximetry 96 Oxygen Delivery Method Room Air BMI result Body Mass Index 25.1 Labs 03/21/24 09:08 Labs: Laboratory Results - last 48 hr 03/21/24 07:55 POC Glucose 100 Meds/Allergies Meds Home Medications ?Medication ?Instructions ?Recorded ?Confirmed ?Type buspirone 10 mg tablet 10 mg PO BID 02/29/24 03/20/24 History buspirone 30 mg tablet 15 mg PO BID 02/29/24 03/20/24 History clopidogrel 75 mg tablet 75 mg PO DAILY 02/29/24 03/20/24 History empagliflozin 10 mg tablet 10 mg PO DAILY 02/29/24 03/20/24 History (Jardiance) folic acid 1 mg tablet 1 mg PO DAILY 02/29/24 03/20/24 History melatonin 3 mg tablet 3 mg PO BEDTIME 02/29/24 03/20/24 History pantoprazole 40 mg tablet,delayed 40 mg PO DAILY@0630 02/29/24 03/20/24 History release quetiapine 50 mg tablet 50 mg PO BEDTIME 02/29/24 03/20/24 History cefazolin 2 gram/100 mL in 100 ml IV Q8H 03/20/24 03/20/24 History dextrose(iso-osmotic) intravenous piggyback Allergies Allergies Allergy/AdvReac Type Severity Reaction Status Date / Time ketorolac [From Toradol] AdvReac Itching Verified 03/16/24 19:06 Mental Status Exam Mental Status Exam Narrative: Pt is alert and oriented; behavior is cooperative, friendly and calm; patient is not in distress; dressed in casual attire with unkempt hair but adequate hygiene; mood is described as ok and affect congruent; eye contact appropriate; Speech is verbose, but normal rate, volume and prosody and not pressured; no psychomotor agitation/retardation present; thought process is goal directed, circumstantial; Thought content is on tx; otherwise pertinent to relevant topics and without any delusional content, paranoid ideations or grandiosity; denies any SI/HI. There is no evidence of perceptual disturbance. Patients insight and judgment impaired Assessment & Plan Assessment & Plan (1) MDD (major depressive disorder), recurrent severe, without psychosis: Status: Acute Code(s): F33.2 - Major depressive disorder, recurrent severe without psychotic features (2) PTSD (post-traumatic stress disorder): Status: Acute Code(s): F43.10 - Post-traumatic stress disorder, unspecified (3) MSSA bacteremia: Status: Acute Code(s): R78.81 - Bacteremia; B95.61 - Methicillin susceptible Staphylococcus aureus infection as the cause of diseases classified elsewhere (4) Alcoholic hepatitis: Status: Acute Code(s): K70.10 - Alcoholic hepatitis without ascites (5) Decompensation of cirrhosis of liver: Status: Acute Code(s): K72.90 - Hepatic failure, unspecified without coma; K74.60 - Unspecified cirrhosis of liver (6) Opioid dependence: Status: Acute Code(s): F11.20 - Opioid dependence, uncomplicated (7) COPD (chronic obstructive pulmonary disease): Status: Acute Code(s): J44.9 - Chronic obstructive pulmonary disease, unspecified (8) HIV infection: Status: Acute Code(s): B20 - Human immunodeficiency virus [HIV] disease (9) Cocaine abuse: Status: Acute Code(s): F14.10 - Cocaine abuse, uncomplicated (10) Alcohol use disorder: Status: Inactive Code(s): F10.90 - Alcohol use, unspecified, uncomplicated Plan HPI: Patient is a 59-year-old male with history of depression, PTSD, opiate/alcohol dependence, HIV, alcohol hepatitis, hep C, portal hypotension/ascites, COPD who was transferred from the medical floor to [facility] for SI, following treatment for MSSA bacteremia, currently on IV antibiotics. Patient was being treated for MSSA bacteremia for several weeks on the hospital floor during which time he also developed: 1.encephalopathy from elevated liver enzymes/ammonia (resolved now on lactulose and rifaximin) 2.small-bowel obstruction, resolved with conservative treatment 3.Aspiration pneumonia, resolving 4.DELMI, resolved 5.Recurrent ascites with paracentesis x2 While on medical floor, patient was accepted to a sniff but left AMA; he came back the next day was admitted again and reported SI to jump off a bridge. Patient says that is mind was not right to tolerate going to a sniff so he left AMA, quickly finding himself depressed and walked over to a bridge, thinking of jumping; he says he saw the face of his sister who said come join me... Patient however self presented to the hospital, not wanting to and citing several protective factors including seeing certain family members grow up. Currently not suicidal PLAN: CV Q 15 minute checks Bictegravir/Emtricitabine/Tenofovir (Bictegrav/Emtricit/Tenofov Ala Tablet) 1 tab PO DAILY CRISTY Buprenorphine/Naloxone (Buprenorphine/Naloxone 8/2 Mg Film) 1 film SUBLINGUAL TID CRISTY Bupropion HCl (Bupropion Hcl Xl 150 Mg Tab.Er.24h) 150 mg PO BID@0900,1500 CRISTY Buspirone HCl (Buspirone Hcl 10 Mg Tablet) 10 mg PO BID CRISTY Buspirone HCl (Buspirone Hcl 5 Mg Tablet) 15 mg PO BID CRISTY Clopidogrel Bisulfate (Clopidogrel Bisulfate 75 Mg Tablet) 75 mg PO DAILY CRISTY Empagliflozin (Empagliflozin 10 Mg Tablet) 10 mg PO DAILY CRISTY Fluticasone/Vilanterol (Fluticasone/Vilanterol 100/25 Blst.W.Dev) 1 puff INHALE DAILY [facility] Folic Acid 1 mg PO DAILY [facility] Cefazolin Sodium/Dextrose (Ancef) 2 gm in 50 mls @ 100 mls/hr IV Q8H CRISTY Lactulose (Lactulose 20 Gm/30 Ml Solution) 20 gm PO TID CRISTY Melatonin (Melatonin 3 Mg Tablet) 6 mg PO BEDTIME PRN Ondansetron HCl Pantoprazole Sodium (Pantoprazole Sodium 20 Mg Tablet.) 40 mg PO DAILY@0630 CRISTY Rifaximin (Rifaximin 550 Mg Tablet) 550 mg PO BID CRISTY Sodium Chloride (0.9 % Sodium Chloride Flush 3 Ml Syringe) 3 ml IVFLUSH QSHIFT CRISTY Thiamine HCl (Thiamine Hcl 100 Mg Tablet) 100 mg PO DAILY CRISTY Gabapentin 100 mg t.i.d. Oxycodone HCl 5 mg PO daily prn Quetiapine Fumarate 50 mg PO BEDTIME CRISTY Furosemide 20 mg daily Insulin sliding scale At discharge, will need to follow-up appointments for: Infectious disease GI Patient educated on: diagnosis, medication risk/benefits, substance abuse and medical condition Informed Consent: understands Reason for continued inpatient stay Substantial Risk for: rapid decompensation Statement Statement: I have reviewed the history and physical and performed a pertinent examination on my patient. No changes have occurred unless specified. If the History and Physical was not performed prior to admission, the Hospitalist's service will be consulted for completing the admission physical. Time Spent With Patient Time: Total time managing care of this patient today ____ minutes.
[2024-03-21] MEDS: Fluticasone/Vilanterol 100/25 BLST.W.DEV 1 PUFF INHALE (09:47)
[2024-03-21] MEDS: Gabapentin 100 MG CAPSULE PO ×3 (09:47→22:04)
[2024-03-21 09:48] LABS: Alanine Aminotransferase 7 U/L (0-40); Albumin Level 2.4 g/dL (3.5-5.0); Alkaline Phosphatase 224 U/L (39-117); Anion Gap 14 (12-20); Aspartate Amino Transferase 66 U/L (5-37); Bilirubin Total 4.3 mg/dL (0.0-1.0); Blood Urea Nitrogen 12 mg/dL (9-16); Calcium 7.8 mg/dL (8.4-10.2); Carbon Dioxide 20 mmol/L (22-29); Chloride 104 mmol/L (96-108); Cholesterol 57 mg/dL (<200); Creatinine Clr Calc Pharmacy 103.4; Estimated Glomerular Filt Rate > 60; Glucose Fasting 114 mg/dL (60-99); HDL Cholesterol 10 mg/dL (>40); LDL Cholesterol Calculated 34 mg/dL (<100); Potassium 4.2 mmol/L (3.3-5.1); Sodium 134 mmol/L (135-145); Total Protein 6.8 g/dL (6.5-8.0); Triglycerides 69 mg/dL (<150)
[2024-03-21 10:45] VITALS: BMI 20.9
--- NOTE | 2024-03-21 11:21 | MHC.CLN ---
RE: CONSULT FOR POOR APPETITE HT 6'1 WT 190# IBW 184#+/-10% PT IS 103% IBW INDICATES ADEQUATE WT FOR HT PREVIOUS WT 90KG (02/28/23) PT WITH 4% NONSIGNIFICANT WT LOSS X1 YEAR; BMI 20.9 -WNL PT REPORTS WT LOSS SECONDARY TO ASCITES NOTED REFUSED DINNER LAST NIGHT FAMILIAR WITH PT FROM ADMISSION TO MEDICAL FLOOR PT CONSUMED 75-100% ON MEDICAL FLOOR PT IS S/P IV ABT FOR MRSA BACTEREMIA DIET RX: REGULAR-APPROPRIATE PLAN: MONITOR PO INTAKE CLOSELY IF PO INTAKE <25% X 3 DAYS, RECOMMEND ADDING NUTRITION SUPPLEMENT NO NEW ORDERS CONTINUE CURRENT CARE PLAN
[2024-03-21 12:38] LABS: Glucose, Whole Blood 180 mg/dL (60-115)
[2024-03-21] MEDS: Insulin Lispro 100 UNIT/ML 3 ML VIAL SUBCUT (12:50)
[2024-03-21] MEDS: Heparin Sodium,Porcine Flush 50 UNITS, 0.9 % Sodium Chloride Flush 5 ML IVFLUSH ×2 (14:23→23:39)
[2024-03-21 17:26] LABS: Glucose, Whole Blood 130 mg/dL (60-115)
[2024-03-21 20:00] VITALS: BP 113/63; PULSE 72; TEMP 36.4; O2SAT 92
[2024-03-21 21:09] LABS: Glucose, Whole Blood 93 mg/dL (60-115)
[2024-03-21] MEDS: Melatonin 3 MG TABLET PO (22:04)
[2024-03-21] MEDS: oxyCODONE HCl Immed Release 5 MG TABLET PO (22:06)
[2024-03-21] MEDS: hydrOXYzine HCL 25 MG TABLET PO (22:07)
[2024-03-21] MEDS: QUEtiapine Fumarate 50 MG TABLET PO (22:07)
[2024-03-22] MEDS: ceFAZolin Sodium/Dextrose,Iso 2 GM/50 ML PIGGYBACK IV ×3 (05:43→21:41)
[2024-03-22] MEDS: Heparin Sodium,Porcine Flush 50 UNITS, 0.9 % Sodium Chloride Flush 5 ML IVFLUSH ×3 (06:35→22:21)
[2024-03-22] MEDS: Pantoprazole Sodium 20 MG TABLET.DR 40 MG PO (06:35)
[2024-03-22 08:29] LABS: Glucose, Whole Blood 94 mg/dL (60-115)
[2024-03-22 10:00] VITALS: BP 108/62; PULSE 78; RESP 16; TEMP 36.3; O2SAT 93
[2024-03-22] MEDS: Thiamine HCL 100 MG TABLET PO (10:06)
[2024-03-22] MEDS: Folic Acid 1 MG TABLET PO (10:06)
[2024-03-22] MEDS: Gabapentin 100 MG CAPSULE PO ×3 (10:06→21:02)
[2024-03-22] MEDS: Empagliflozin 10 MG TABLET PO (10:06)
[2024-03-22] MEDS: Buprenorphine/Naloxone 8/2 mg FILM 1 FILM SUBLINGUAL ×3 (10:06→21:01)
[2024-03-22] MEDS: Furosemide 20 MG TABLET PO (10:06)
[2024-03-22] MEDS: Bictegrav/Emtricit/Tenofov Ala TABLET 1 TAB PO (10:07)
[2024-03-22] MEDS: busPIRone HCl 10 MG TABLET PO ×2 (10:07→21:02)
[2024-03-22] MEDS: rifAXIMin 550 MG TABLET PO ×2 (10:07→21:02)
[2024-03-22] MEDS: Clopidogrel Bisulfate 75 MG TABLET PO (10:07)
[2024-03-22] MEDS: buPROPion HCl XL 150 MG TAB.ER.24H PO ×2 (10:07→15:15)
[2024-03-22] MEDS: busPIRone HCl 5 MG TABLET 15 MG PO ×2 (10:07→21:01)
[2024-03-22] MEDS: Lactulose 20 GM/30 ML SOLUTION PO ×3 (10:07→21:02)
[2024-03-22] MEDS: Fluticasone/Vilanterol 100/25 BLST.W.DEV 1 PUFF INHALE (10:08)
[2024-03-22] MEDS: oxyCODONE HCl Immed Release 5 MG TABLET PO (10:18)
[2024-03-22 12:28] LABS: Glucose, Whole Blood 129 mg/dL (60-115)
[2024-03-22 17:12] LABS: Glucose, Whole Blood 137 mg/dL (60-115)
--- NOTE | 2024-03-22 18:59 | HO.PSYCHPN ---
Subjective Subjective Date of Service: 03/22/24 Reason For Visit: SI depression Interim History: Met with patient; discussed with team Patient reports that he is overall okay; no SI. He says he is pushing himself to walk throughout the day; remains tired however. Discussed aftercare plans and patient agrees to remain at [facility] since he has been going there for quite some time and has a strong rapport with providers there. Discussed case with hospitalist THU who initially saw patient and reports patient was initially going to go to SNF for physical therapy in addition to PICC line/antibiotics. Reached out to physical therapy who will re-evaluate patient next week. Of note patient left the hospital AMA and was walking around on his own quite some distance before he decided to return to the hospital. Mental Status Exam Mental Status Exam Narrative: Pt is alert and oriented; behavior is cooperative, friendly and calm; patient is not in distress; dressed in casual attire with unkempt hair but adequate hygiene; mood is described as ok and affect congruent; eye contact appropriate; Speech is verbose, but normal rate, volume and prosody and not pressured; no psychomotor agitation/retardation present; thought process is goal directed, circumstantial; Thought content is on tx; otherwise pertinent to relevant topics and without any delusional content, paranoid ideations or grandiosity; denies any SI/HI. There is no evidence of perceptual disturbance. Patients insight and judgment fair Diagnostics Vital Signs (24Hr): Vital Signs - 24 hr 03/21/24 20:00 03/22/24 10:00 Temperature 97.5 F 97.4 F Pulse Rate 72 78 Respiratory Rate 16 Blood Pressure 113/63 108/62 Pulse Oximetry 92 93 Oxygen Delivery Method Room Air Room Air BMI result Body Mass Index 20.9 Labs 03/21/24 09:08 Labs: Laboratory Results - last 48 hr 03/21/24 03/21/24 03/21/24 07:55 09:08 12:34 Sodium 134 L Potassium 4.2 Chloride 104 Carbon Dioxide 20 L Anion Gap 14 BUN 12 Creatinine 0.88 Estim Creat Clear Calc 103.4 Estimated GFR > 60 POC Glucose 100 180 H Fasting Glucose 114 H Calcium 7.8 L Total Bilirubin 4.3 H AST 66 H ALT 7 Alkaline Phosphatase 224 H Total Protein 6.8 Albumin 2.4 L Triglycerides 69 Cholesterol 57 LDL Cholesterol, Calc 34 HDL Cholesterol 10 L 03/21/24 03/21/24 03/22/24 17:20 21:03 08:22 Sodium Potassium Chloride Carbon Dioxide Anion Gap BUN Creatinine Estim Creat Clear Calc Estimated GFR POC Glucose 130 H 93 94 Fasting Glucose Calcium Total Bilirubin AST ALT Alkaline Phosphatase Total Protein Albumin Triglycerides Cholesterol LDL Cholesterol, Calc HDL Cholesterol 03/22/24 03/22/24 12:20 17:06 Sodium Potassium Chloride Carbon Dioxide Anion Gap BUN Creatinine Estim Creat Clear Calc Estimated GFR POC Glucose 129 H 137 H Fasting Glucose Calcium Total Bilirubin AST ALT Alkaline Phosphatase Total Protein Albumin Triglycerides Cholesterol LDL Cholesterol, Calc HDL Cholesterol Medications Medications Current Medications Al Hydroxide/Mg Hydroxide (Magnesium Hydrox/Alum Hydrox 30 Ml Oral.Susp) 30 ml PO Q6H PRN PRN Reason: Heartburn/Nausea Bictegravir/Emtricitabine/Tenofovir (Bictegrav/Emtricit/Tenofov Ala Tablet) 1 tab PO DAILY [facility] Last Admin: 03/22/24 10:07 Dose: 1 tab Buprenorphine/Naloxone (Buprenorphine/Naloxone 8/2 Mg Film) 1 film SUBLINGUAL TID [facility] Last Admin: 03/22/24 15:15 Dose: 1 film Bupropion HCl (Bupropion Hcl Xl 150 Mg Tab.Er.24h) 150 mg PO BID@0900,1500 [facility] Last Admin: 03/22/24 15:15 Dose: 150 mg Buspirone HCl (Buspirone Hcl 10 Mg Tablet) 10 mg PO BID [facility] Last Admin: 03/22/24 10:07 Dose: 10 mg Buspirone HCl (Buspirone Hcl 5 Mg Tablet) 15 mg PO BID [facility] Last Admin: 03/22/24 10:07 Dose: 15 mg Clopidogrel Bisulfate (Clopidogrel Bisulfate 75 Mg Tablet) 75 mg PO DAILY [facility] Last Admin: 03/22/24 10:07 Dose: 75 mg Heparin Sodium (Porcine) 50 (units/ Sodium Chloride 5 ml) 0 units IVFLUSH TID@0500,1300,2100 [facility] Last Admin: 03/22/24 14:12 Dose: 5 unit Empagliflozin (Empagliflozin 10 Mg Tablet) 10 mg PO DAILY [facility] Last Admin: 03/22/24 10:06 Dose: 10 mg Fluticasone/Vilanterol (Fluticasone/Vilanterol 100/25 Blst.W.Dev) 1 puff INHALE RDAILY [facility] Last Admin: 03/22/24 10:08 Dose: 1 puff Folic Acid (Folic Acid 1 Mg Tablet) 1 mg PO DAILY [facility] Last Admin: 03/22/24 10:06 Dose: 1 mg Furosemide (Furosemide 20 Mg Tablet) 20 mg PO DAILY [facility]; Protocol Last Admin: 03/22/24 10:06 Dose: 20 mg Gabapentin (Gabapentin 100 Mg Capsule) 100 mg PO TID [facility] Last Admin: 03/22/24 15:15 Dose: 100 mg Hydroxyzine HCl (Hydroxyzine Hcl 25 Mg Tablet) 25 mg PO Q6H PRN PRN Reason: Anxiety Last Admin: 03/21/24 22:07 Dose: 25 mg Cefazolin Sodium/Dextrose (Ancef) 2 gm in 50 mls @ 100 mls/hr IV Q8H [facility] Last Infusion: 03/22/24 13:58 Dose: Infused Insulin Human Lispro (Insulin Lispro 100 Unit/Ml 3 Ml Vial) 0 unit SUBCUT QIDACHS [facility]; Protocol Last Admin: 03/22/24 17:17 Dose: Not Given Lactulose (Lactulose 20 Gm/30 Ml Solution) 20 gm PO TID [facility] Last Admin: 03/22/24 15:15 Dose: 20 gm Magnesium Hydroxide (Milk Of Magnesia 30 Ml Oral.Susp) 30 ml PO DAILY PRN PRN Reason: Constipation Melatonin (Melatonin 3 Mg Tablet) 3 mg PO BEDTIME [facility] Last Admin: 03/21/24 22:04 Dose: 3 mg Nicotine (Nicotine 21 Mg Patch.Td24) 21 mg TRANSDERMA DAILY PRN PRN Reason: nicotine cravings Nicotine Polacrilex (Nicotine Polacrilex 2 Mg Gum) 4 mg BUCCAL Q2H PRN PRN Reason: Nicotine Cravings Oxycodone HCl (Oxycodone Hcl Immed Release 5 Mg Tablet) 5 mg PO DAILY PRN PRN Reason: severe pain Last Admin: 03/22/24 10:18 Dose: 5 mg Pantoprazole Sodium (Pantoprazole Sodium 20 Mg Tablet.Dr) 40 mg PO DAILY@0630 [facility] Last Admin: 03/22/24 06:35 Dose: 40 mg Quetiapine Fumarate (Quetiapine Fumarate 50 Mg Tablet) 50 mg PO BEDTIME [facility] Last Admin: 03/21/24 22:07 Dose: 50 mg Rifaximin (Rifaximin 550 Mg Tablet) 550 mg PO BID [facility] Last Admin: 03/22/24 10:07 Dose: 550 mg Thiamine HCl (Thiamine Hcl 100 Mg Tablet) 100 mg PO DAILY [facility] Last Admin: 03/22/24 10:06 Dose: 100 mg Trazodone HCl (Trazodone Hcl 50 Mg Tablet) 50 mg PO BEDTIME MRX1 PRN PRN Reason: Insomnia Last Admin: 03/20/24 20:36 Dose: 50 mg Allergies Allergies Allergy/AdvReac Type Severity Reaction Status Date / Time ketorolac [From Toradol] AdvReac Itching Verified 03/16/24 19:06 Assessment & Plan Assessment & Plan (1) MDD (major depressive disorder), recurrent severe, without psychosis: Status: Acute Code(s): F33.2 - Major depressive disorder, recurrent severe without psychotic features (2) PTSD (post-traumatic stress disorder): Status: Acute Code(s): F43.10 - Post-traumatic stress disorder, unspecified (3) MSSA bacteremia: Status: Acute Code(s): R78.81 - Bacteremia; B95.61 - Methicillin susceptible Staphylococcus aureus infection as the cause of diseases classified elsewhere (4) Alcoholic hepatitis: Status: Acute Code(s): K70.10 - Alcoholic hepatitis without ascites (5) Decompensation of cirrhosis of liver: Status: Acute Code(s): K72.90 - Hepatic failure, unspecified without coma; K74.60 - Unspecified cirrhosis of liver (6) Opioid dependence: Status: Acute Code(s): F11.20 - Opioid dependence, uncomplicated (7) COPD (chronic obstructive pulmonary disease): Status: Acute Code(s): J44.9 - Chronic obstructive pulmonary disease, unspecified (8) HIV infection: Status: Acute Code(s): B20 - Human immunodeficiency virus [HIV] disease (9) Cocaine abuse: Status: Acute Code(s): F14.10 - Cocaine abuse, uncomplicated (10) Alcohol use disorder: Status: Inactive Code(s): F10.90 - Alcohol use, unspecified, uncomplicated Plan HPI: Patient is a 59-year-old male with history of depression, PTSD, opiate/alcohol dependence, HIV, alcohol hepatitis, hep C, portal hypotension/ascites, COPD who was transferred from the medical floor to [facility] for SI, following treatment for MSSA bacteremia, currently on IV antibiotics. Patient was being treated for MSSA bacteremia for several weeks on the hospital floor during which time he also developed: 1.encephalopathy from elevated liver enzymes/ammonia (resolved now on lactulose and rifaximin) 2.small-bowel obstruction, resolved with conservative treatment 3.Aspiration pneumonia, resolving 4.DELMI, resolved 5.Recurrent ascites with paracentesis x2 While on medical floor, patient was accepted to a sniff but left AMA; he came back the next day was admitted again and reported SI to jump off a bridge. Patient says that is mind was not right to tolerate going to a sniff so he left AMA, quickly finding himself depressed and walked over to a bridge, thinking of jumping; he says he saw the face of his sister who said come join me... Patient however self presented to the hospital, not wanting to and citing several protective factors including seeing certain family members grow up. Currently not suicidal Hospital course: 03/22 Patient reports that he is overall okay; no SI. Tired but pushing himself to get up and move around. agrees to remain at [facility] given longevity there and strong rapport with providers there. -initially going to go to SNF for physical therapy in addition to PICC line/antibiotics. Reached out to physical therapy who will re-evaluate patient next week. Of note patient left the hospital AMA and was walking around on his own quite some distance before he decided to return to the hospital. PLAN: CV Q 15 minute checks Bictegravir/Emtricitabine/Tenofovir (Bictegrav/Emtricit/Tenofov Ala Tablet) 1 tab PO DAILY [facility] Buprenorphine/Naloxone (Buprenorphine/Naloxone 8/2 Mg Film) 1 film SUBLINGUAL TID [facility] Bupropion HCl (Bupropion Hcl Xl 150 Mg Tab.Er.24h) 150 mg PO BID@0900,1500 [facility] Buspirone HCl (Buspirone Hcl 10 Mg Tablet) 10 mg PO BID [facility] Buspirone HCl (Buspirone Hcl 5 Mg Tablet) 15 mg PO BID [facility] Clopidogrel Bisulfate (Clopidogrel Bisulfate 75 Mg Tablet) 75 mg PO DAILY [facility] Empagliflozin (Empagliflozin 10 Mg Tablet) 10 mg PO DAILY [facility] Fluticasone/Vilanterol (Fluticasone/Vilanterol 100/25 Blst.W.Dev) 1 puff INHALE DAILY [facility] Folic Acid 1 mg PO DAILY [facility] Cefazolin Sodium/Dextrose (Ancef) 2 gm in 50 mls @ 100 mls/hr IV Q8H [facility] Lactulose (Lactulose 20 Gm/30 Ml Solution) 20 gm PO TID [facility] Melatonin (Melatonin 3 Mg Tablet) 6 mg PO BEDTIME PRN Ondansetron HCl Pantoprazole Sodium (Pantoprazole Sodium 20 Mg Tablet.Dr) 40 mg PO DAILY@0630 [facility] Rifaximin (Rifaximin 550 Mg Tablet) 550 mg PO BID [facility] Sodium Chloride (0.9 % Sodium Chloride Flush 3 Ml Syringe) 3 ml IVFLUSH QSHIFT [facility] Thiamine HCl (Thiamine Hcl 100 Mg Tablet) 100 mg PO DAILY [facility] Gabapentin 100 mg t.i.d. Oxycodone HCl 5 mg PO daily prn Quetiapine Fumarate 50 mg PO BEDTIME [facility] Furosemide 20 mg daily Insulin sliding scale At discharge, will need to follow-up appointments for: Infectious disease GI Patient educated on: diagnosis, medication risk/benefits and medical condition Informed Consent: understands Reason for continued inpatient stay Substantial Risk for: stable for discharge Time Spent With Patient Time: Total time managing care of this patient today ____ minutes.
[2024-03-22 20:00] VITALS: BP 127/76; PULSE 86; RESP 16; TEMP 36.7; O2SAT 94
[2024-03-22 20:13] LABS: Glucose, Whole Blood 141 mg/dL (60-115)
[2024-03-22] MEDS: QUEtiapine Fumarate 50 MG TABLET PO (21:02)
[2024-03-22] MEDS: Melatonin 3 MG TABLET PO (21:02)
[2024-03-23] MEDS: ceFAZolin Sodium/Dextrose,Iso 2 GM/50 ML PIGGYBACK IV ×3 (05:02→21:55)
[2024-03-23] MEDS: Heparin Sodium,Porcine Flush 50 UNITS, 0.9 % Sodium Chloride Flush 5 ML IVFLUSH (05:32)
[2024-03-23] MEDS: Pantoprazole Sodium 20 MG TABLET.DR 40 MG PO (05:36)
[2024-03-23 08:00] VITALS: BP 105/58; PULSE 80; RESP 18; TEMP 36.4; O2SAT 91
[2024-03-23] MEDS: Empagliflozin 10 MG TABLET PO (08:14)
[2024-03-23] MEDS: Furosemide 20 MG TABLET PO (08:14)
[2024-03-23] MEDS: busPIRone HCl 5 MG TABLET 15 MG PO ×2 (08:14→21:53)
[2024-03-23] MEDS: Bictegrav/Emtricit/Tenofov Ala TABLET 1 TAB PO (08:14)
[2024-03-23] MEDS: Thiamine HCL 100 MG TABLET PO (08:14)
[2024-03-23] MEDS: buPROPion HCl XL 150 MG TAB.ER.24H PO ×2 (08:14→14:47)
[2024-03-23] MEDS: Clopidogrel Bisulfate 75 MG TABLET PO (08:14)
[2024-03-23] MEDS: Folic Acid 1 MG TABLET PO (08:14)
[2024-03-23] MEDS: rifAXIMin 550 MG TABLET PO ×2 (08:14→21:53)
[2024-03-23] MEDS: Gabapentin 100 MG CAPSULE PO ×3 (08:15→21:53)
[2024-03-23] MEDS: busPIRone HCl 10 MG TABLET PO ×2 (08:15→21:54)
[2024-03-23] MEDS: Fluticasone/Vilanterol 100/25 BLST.W.DEV 1 PUFF INHALE (08:15)
[2024-03-23] MEDS: Lactulose 20 GM/30 ML SOLUTION PO ×3 (08:17→21:56)
[2024-03-23 08:24] LABS: Glucose, Whole Blood 116 mg/dL (60-115)
[2024-03-23] MEDS: oxyCODONE HCl Immed Release 5 MG TABLET PO (08:25)
[2024-03-23] MEDS: Buprenorphine/Naloxone 8/2 mg FILM 1 FILM SUBLINGUAL ×3 (09:24→21:53)
--- NOTE | 2024-03-23 10:07 | HO.PSYCHPN ---
Subjective Subjective Date of Service: 03/23/24 Reason For Visit: SI depression Interim History: Met with patient; discussed with team Patient reports that he is overall okay; no SI. He says he is feeling better overall. He denies SI/HI/AVH. Seen in bed and appeared tired but reported he is out of his room and goes into the milieu. Reports generalized pain but better than it was. He is tolerating meds well. Mental Status Exam Mental Status Exam Narrative: Pt is alert and oriented; behavior is cooperative, friendly and calm; patient is not in distress; dressed in casual attire with unkempt hair but adequate hygiene; mood is described as ok and affect congruent; eye contact appropriate; Speech is verbose, but normal rate, volume and prosody and not pressured; no psychomotor agitation/retardation present; thought process is goal directed, circumstantial; Thought content is on tx; otherwise pertinent to relevant topics and without any delusional content, paranoid ideations or grandiosity; denies any SI/HI. There is no evidence of perceptual disturbance. Patients insight and judgment fair Diagnostics Vital Signs (24Hr): Vital Signs - 24 hr 03/22/24 20:00 03/23/24 08:00 Temperature 98.1 F 97.5 F Pulse Rate 86 80 Respiratory Rate 16 18 Blood Pressure 127/76 105/58 L Pulse Oximetry 94 91 L Oxygen Delivery Method Room Air Room Air BMI result Body Mass Index 20.9 Labs 03/21/24 09:08 Labs: Laboratory Results - last 48 hr 03/21/24 03/21/24 03/21/24 12:34 17:20 21:03 POC Glucose 180 H 130 H 93 03/22/24 03/22/24 03/22/24 08:22 12:20 17:06 POC Glucose 94 129 H 137 H 03/22/24 03/23/24 19:55 08:17 POC Glucose 141 H 116 H Medications Medications Current Medications Al Hydroxide/Mg Hydroxide (Magnesium Hydrox/Alum Hydrox 30 Ml Oral.Susp) 30 ml PO Q6H PRN PRN Reason: Heartburn/Nausea Bictegravir/Emtricitabine/Tenofovir (Bictegrav/Emtricit/Tenofov Ala Tablet) 1 tab PO DAILY [facility] Last Admin: 03/23/24 08:14 Dose: 1 tab Buprenorphine/Naloxone (Buprenorphine/Naloxone 8/2 Mg Film) 1 film SUBLINGUAL TID [facility] Last Admin: 03/23/24 09:24 Dose: 1 film Bupropion HCl (Bupropion Hcl Xl 150 Mg Tab.Er.24h) 150 mg PO BID@0900,1500 [facility] Last Admin: 03/23/24 08:14 Dose: 150 mg Buspirone HCl (Buspirone Hcl 10 Mg Tablet) 10 mg PO BID [facility] Last Admin: 03/23/24 08:15 Dose: 10 mg Buspirone HCl (Buspirone Hcl 5 Mg Tablet) 15 mg PO BID [facility] Last Admin: 03/23/24 08:14 Dose: 15 mg Clopidogrel Bisulfate (Clopidogrel Bisulfate 75 Mg Tablet) 75 mg PO DAILY [facility] Last Admin: 03/23/24 08:14 Dose: 75 mg Heparin Sodium (Porcine) 50 (units/ Sodium Chloride 5 ml) 0 units IVFLUSH TID@0500,1300,2100 [facility] Last Admin: 03/23/24 05:32 Dose: 3 unit Empagliflozin (Empagliflozin 10 Mg Tablet) 10 mg PO DAILY [facility] Last Admin: 03/23/24 08:14 Dose: 10 mg Fluticasone/Vilanterol (Fluticasone/Vilanterol 100/25 Blst.W.Dev) 1 puff INHALE RDAILY [facility] Last Admin: 03/23/24 08:15 Dose: 1 puff Folic Acid (Folic Acid 1 Mg Tablet) 1 mg PO DAILY [facility] Last Admin: 03/23/24 08:14 Dose: 1 mg Furosemide (Furosemide 20 Mg Tablet) 20 mg PO DAILY [facility]; Protocol Last Admin: 03/23/24 08:14 Dose: 20 mg Gabapentin (Gabapentin 100 Mg Capsule) 100 mg PO TID [facility] Last Admin: 03/23/24 08:15 Dose: 100 mg Hydroxyzine HCl (Hydroxyzine Hcl 25 Mg Tablet) 25 mg PO Q6H PRN PRN Reason: Anxiety Last Admin: 03/21/24 22:07 Dose: 25 mg Cefazolin Sodium/Dextrose (Ancef) 2 gm in 50 mls @ 100 mls/hr IV Q8H [facility] Last Infusion: 03/23/24 07:58 Dose: Infused Insulin Human Lispro (Insulin Lispro 100 Unit/Ml 3 Ml Vial) 0 unit SUBCUT QIDACHS [facility]; Protocol Last Admin: 03/23/24 08:18 Dose: Not Given Lactulose (Lactulose 20 Gm/30 Ml Solution) 20 gm PO TID [facility] Last Admin: 03/23/24 08:17 Dose: 20 gm Magnesium Hydroxide (Milk Of Magnesia 30 Ml Oral.Susp) 30 ml PO DAILY PRN PRN Reason: Constipation Melatonin (Melatonin 3 Mg Tablet) 3 mg PO BEDTIME [facility] Last Admin: 03/22/24 21:02 Dose: 3 mg Nicotine (Nicotine 21 Mg Patch.Td24) 21 mg TRANSDERMA DAILY PRN PRN Reason: nicotine cravings Nicotine Polacrilex (Nicotine Polacrilex 2 Mg Gum) 4 mg BUCCAL Q2H PRN PRN Reason: Nicotine Cravings Oxycodone HCl (Oxycodone Hcl Immed Release 5 Mg Tablet) 5 mg PO DAILY PRN PRN Reason: severe pain Last Admin: 03/23/24 08:25 Dose: 5 mg Pantoprazole Sodium (Pantoprazole Sodium 20 Mg Tablet.Dr) 40 mg PO DAILY@0630 [facility] Last Admin: 03/23/24 05:36 Dose: 40 mg Quetiapine Fumarate (Quetiapine Fumarate 50 Mg Tablet) 50 mg PO BEDTIME [facility] Last Admin: 03/22/24 21:02 Dose: 50 mg Rifaximin (Rifaximin 550 Mg Tablet) 550 mg PO BID [facility] Last Admin: 03/23/24 08:14 Dose: 550 mg Thiamine HCl (Thiamine Hcl 100 Mg Tablet) 100 mg PO DAILY [facility] Last Admin: 03/23/24 08:14 Dose: 100 mg Trazodone HCl (Trazodone Hcl 50 Mg Tablet) 50 mg PO BEDTIME MRX1 PRN PRN Reason: Insomnia Last Admin: 03/20/24 20:36 Dose: 50 mg Allergies Allergies Allergy/AdvReac Type Severity Reaction Status Date / Time ketorolac [From Toradol] AdvReac Itching Verified 03/16/24 19:06 Assessment & Plan Assessment & Plan (1) MDD (major depressive disorder), recurrent severe, without psychosis: Status: Acute Code(s): F33.2 - Major depressive disorder, recurrent severe without psychotic features (2) PTSD (post-traumatic stress disorder): Status: Acute Code(s): F43.10 - Post-traumatic stress disorder, unspecified (3) MSSA bacteremia: Status: Acute Code(s): R78.81 - Bacteremia; B95.61 - Methicillin susceptible Staphylococcus aureus infection as the cause of diseases classified elsewhere (4) Alcoholic hepatitis: Status: Acute Code(s): K70.10 - Alcoholic hepatitis without ascites (5) Decompensation of cirrhosis of liver: Status: Acute Code(s): K72.90 - Hepatic failure, unspecified without coma; K74.60 - Unspecified cirrhosis of liver (6) Opioid dependence: Status: Acute Code(s): F11.20 - Opioid dependence, uncomplicated (7) COPD (chronic obstructive pulmonary disease): Status: Acute Code(s): J44.9 - Chronic obstructive pulmonary disease, unspecified (8) HIV infection: Status: Acute Code(s): B20 - Human immunodeficiency virus [HIV] disease (9) Cocaine abuse: Status: Acute Code(s): F14.10 - Cocaine abuse, uncomplicated (10) Alcohol use disorder: Status: Inactive Code(s): F10.90 - Alcohol use, unspecified, uncomplicated Plan HPI: Patient is a 59-year-old male with history of depression, PTSD, opiate/alcohol dependence, HIV, alcohol hepatitis, hep C, portal hypotension/ascites, COPD who was transferred from the medical floor to [facility] for SI, following treatment for MSSA bacteremia, currently on IV antibiotics. Patient was being treated for MSSA bacteremia for several weeks on the hospital floor during which time he also developed: 1.encephalopathy from elevated liver enzymes/ammonia (resolved now on lactulose and rifaximin) 2.small-bowel obstruction, resolved with conservative treatment 3.Aspiration pneumonia, resolving 4.DELMI, resolved 5.Recurrent ascites with paracentesis x2 While on medical floor, patient was accepted to a sniff but left AMA; he came back the next day was admitted again and reported SI to jump off a bridge. Patient says that is mind was not right to tolerate going to a sniff so he left AMA, quickly finding himself depressed and walked over to a bridge, thinking of jumping; he says he saw the face of his sister who said come join me... Patient however self presented to the hospital, not wanting to and citing several protective factors including seeing certain family members grow up. Currently not suicidal Hospital course: 03/22 Patient reports that he is overall okay; no SI. Tired but pushing himself to get up and move around. agrees to remain at [facility] given longevity there and strong rapport with providers there. -initially going to go to SNF for physical therapy in addition to PICC line/antibiotics. Reached out to physical therapy who will re-evaluate patient next week. Of note patient left the hospital AMA and was walking around on his own quite some distance before he decided to return to the hospital. PLAN: CV Q 15 minute checks Bictegravir/Emtricitabine/Tenofovir (Bictegrav/Emtricit/Tenofov Ala Tablet) 1 tab PO DAILY [facility] Buprenorphine/Naloxone (Buprenorphine/Naloxone 8/2 Mg Film) 1 film SUBLINGUAL TID [facility] Bupropion HCl (Bupropion Hcl Xl 150 Mg Tab.Er.24h) 150 mg PO BID@0900,1500 [facility] Buspirone HCl (Buspirone Hcl 10 Mg Tablet) 10 mg PO BID [facility] Buspirone HCl (Buspirone Hcl 5 Mg Tablet) 15 mg PO BID [facility] Clopidogrel Bisulfate (Clopidogrel Bisulfate 75 Mg Tablet) 75 mg PO DAILY [facility] Empagliflozin (Empagliflozin 10 Mg Tablet) 10 mg PO DAILY [facility] Fluticasone/Vilanterol (Fluticasone/Vilanterol 100/25 Blst.W.Dev) 1 puff INHALE DAILY [facility] Folic Acid 1 mg PO DAILY [facility] Cefazolin Sodium/Dextrose (Ancef) 2 gm in 50 mls @ 100 mls/hr IV Q8H [facility] Lactulose (Lactulose 20 Gm/30 Ml Solution) 20 gm PO TID [facility] Melatonin (Melatonin 3 Mg Tablet) 6 mg PO BEDTIME PRN Ondansetron HCl Pantoprazole Sodium (Pantoprazole Sodium 20 Mg Tablet.) 40 mg PO DAILY@0630 [facility] Rifaximin (Rifaximin 550 Mg Tablet) 550 mg PO BID [facility] Sodium Chloride (0.9 % Sodium Chloride Flush 3 Ml Syringe) 3 ml IVFLUSH QSHIFT [facility] Thiamine HCl (Thiamine Hcl 100 Mg Tablet) 100 mg PO DAILY [facility] Gabapentin 100 mg t.i.d. Oxycodone HCl 5 mg PO daily prn Quetiapine Fumarate 50 mg PO BEDTIME [facility] Furosemide 20 mg daily Insulin sliding scale At discharge, will need to follow-up appointments for: Infectious disease GI 03/23: continue current management and treatment plan. Reason for continued inpatient stay Substantial Risk for: inability to function and med/psych decompensation Time Spent With Patient Time: Total time managing care of this patient today ____ minutes.
[2024-03-23 12:29] LABS: Glucose, Whole Blood 138 mg/dL (60-115)
[2024-03-23] MEDS: 0.9 % Sodium Chloride Flush 10 ML SYRINGE 5 ML IVFLUSH ×2 (14:46→21:28)
[2024-03-23 17:34] LABS: Glucose, Whole Blood 110 mg/dL (60-115)
[2024-03-23 20:00] VITALS: BP 99/55; PULSE 86; RESP 20; TEMP 36.4; O2SAT 95
[2024-03-23] MEDS: QUEtiapine Fumarate 50 MG TABLET PO (21:53)
[2024-03-23] MEDS: Melatonin 3 MG TABLET PO (21:53)
[2024-03-23] MEDS: Insulin Lispro 100 UNIT/ML 3 ML VIAL SUBCUT (21:54)
[2024-03-24] MEDS: ceFAZolin Sodium/Dextrose,Iso 2 GM/50 ML PIGGYBACK IV ×3 (05:01→23:01)
[2024-03-24] MEDS: Pantoprazole Sodium 20 MG TABLET.DR 40 MG PO (06:39)
[2024-03-24 08:06] VITALS: BP 103/62; PULSE 80; RESP 18; TEMP 36.4; O2SAT 92
[2024-03-24] MEDS: Folic Acid 1 MG TABLET PO (08:19)
[2024-03-24] MEDS: busPIRone HCl 10 MG TABLET PO ×2 (08:19→21:47)
[2024-03-24] MEDS: Clopidogrel Bisulfate 75 MG TABLET PO (08:19)
[2024-03-24] MEDS: Gabapentin 100 MG CAPSULE PO ×3 (08:19→21:47)
[2024-03-24] MEDS: Furosemide 20 MG TABLET PO (08:19)
[2024-03-24] MEDS: Fluticasone/Vilanterol 100/25 BLST.W.DEV 1 PUFF INHALE (08:20)
[2024-03-24] MEDS: Lactulose 20 GM/30 ML SOLUTION PO ×3 (08:20→21:50)
[2024-03-24] MEDS: Bictegrav/Emtricit/Tenofov Ala TABLET 1 TAB PO (08:20)
[2024-03-24] MEDS: busPIRone HCl 5 MG TABLET 15 MG PO ×2 (08:20→21:47)
[2024-03-24] MEDS: rifAXIMin 550 MG TABLET PO ×2 (08:20→21:49)
[2024-03-24] MEDS: Empagliflozin 10 MG TABLET PO (08:20)
[2024-03-24] MEDS: buPROPion HCl XL 150 MG TAB.ER.24H PO ×2 (08:20→15:09)
[2024-03-24] MEDS: oxyCODONE HCl Immed Release 5 MG TABLET PO (08:23)
[2024-03-24] MEDS: Thiamine HCL 100 MG TABLET PO (08:31)
[2024-03-24 08:40] LABS: Glucose, Whole Blood 101 mg/dL (60-115)
[2024-03-24] MEDS: Buprenorphine/Naloxone 8/2 mg FILM 1 FILM SUBLINGUAL ×3 (09:04→21:49)
[2024-03-24 12:38] LABS: Glucose, Whole Blood 143 mg/dL (60-115)
[2024-03-24] MEDS: 0.9 % Sodium Chloride Flush 10 ML SYRINGE 5 ML IVFLUSH ×2 (13:38→22:54)
--- NOTE | 2024-03-24 17:15 | P.PNPSI_ITS ---
Subjective Subjective Date of Service: 03/24/24 Reason For Visit: SI depression Interim History: Met with patient; discussed with team Patient reports that he is overall okay; no SI. He says he is feeling better overall. Especially physically. Able to get out of bed and out of room. More social. He denies SI/HI/AVH. Complaining of diarrhea. Seen in bed and appeared tired but reported he is out of his room and goes into the milieu. Reports generalized pain but better than it was. He is tolerating meds well. Mental Status Exam Mental Status Exam Narrative: Pt is alert and oriented; behavior is cooperative, friendly and calm; patient is not in distress; dressed in casual attire with unkempt hair but adequate hygiene; mood is described as ok and affect congruent; eye contact appropriate; Speech is verbose, but normal rate, volume and prosody and not pressured; no psychomotor agitation/retardation present; thought process is goal directed, circumstantial; Thought content is on tx; otherwise pertinent to relevant topics and without any delusional content, paranoid ideations or grandiosity; denies any SI/HI. There is no evidence of perceptual disturbance. Patients insight and judgment fair Diagnostics Vital Signs (24Hr): Vital Signs - 24 hr 03/23/24 20:00 03/24/24 08:06 Temperature 97.5 F 97.5 F Pulse Rate 86 80 Respiratory Rate 20 18 Blood Pressure 99/55 L 103/62 Pulse Oximetry 95 92 Oxygen Delivery Method Room Air Room Air BMI result Body Mass Index 20.9 Labs 03/21/24 09:08 Labs: Laboratory Results - last 48 hr 03/22/24 03/23/24 03/23/24 19:55 08:17 12:18 POC Glucose 141 H 116 H 138 H 03/23/24 03/24/24 03/24/24 17:23 08:31 12:29 POC Glucose 110 101 143 H Medications Medications Current Medications Al Hydroxide/Mg Hydroxide (Magnesium Hydrox/Alum Hydrox 30 Ml Oral.Susp) 30 ml PO Q6H PRN PRN Reason: Heartburn/Nausea Bictegravir/Emtricitabine/Tenofovir (Bictegrav/Emtricit/Tenofov Ala Tablet) 1 tab PO DAILY [facility] Last Admin: 03/24/24 08:20 Dose: 1 tab Buprenorphine/Naloxone (Buprenorphine/Naloxone 8/2 Mg Film) 1 film SUBLINGUAL TID [facility] Last Admin: 03/24/24 15:09 Dose: 1 film Bupropion HCl (Bupropion Hcl Xl 150 Mg Tab.Er.24h) 150 mg PO BID@0900,1500 [facility] Last Admin: 03/24/24 15:09 Dose: 150 mg Buspirone HCl (Buspirone Hcl 10 Mg Tablet) 10 mg PO BID [facility] Last Admin: 03/24/24 08:19 Dose: 10 mg Buspirone HCl (Buspirone Hcl 5 Mg Tablet) 15 mg PO BID [facility] Last Admin: 03/24/24 08:20 Dose: 15 mg Clopidogrel Bisulfate (Clopidogrel Bisulfate 75 Mg Tablet) 75 mg PO DAILY [facility] Last Admin: 03/24/24 08:19 Dose: 75 mg Empagliflozin (Empagliflozin 10 Mg Tablet) 10 mg PO DAILY [facility] Last Admin: 03/24/24 08:20 Dose: 10 mg Fluticasone/Vilanterol (Fluticasone/Vilanterol 100/25 Blst.W.Dev) 1 puff INHALE RDAILY [facility] Last Admin: 03/24/24 08:20 Dose: 1 puff Folic Acid (Folic Acid 1 Mg Tablet) 1 mg PO DAILY [facility] Last Admin: 03/24/24 08:19 Dose: 1 mg Furosemide (Furosemide 20 Mg Tablet) 20 mg PO DAILY [facility]; Protocol Last Admin: 03/24/24 08:19 Dose: 20 mg Gabapentin (Gabapentin 100 Mg Capsule) 100 mg PO TID [facility] Last Admin: 03/24/24 15:09 Dose: 100 mg Hydroxyzine HCl (Hydroxyzine Hcl 25 Mg Tablet) 25 mg PO Q6H PRN PRN Reason: Anxiety Last Admin: 03/21/24 22:07 Dose: 25 mg Cefazolin Sodium/Dextrose (Ancef) 2 gm in 50 mls @ 100 mls/hr IV Q8H [facility] Last Infusion: 03/24/24 13:37 Dose: Infused Insulin Human Lispro (Insulin Lispro 100 Unit/Ml 3 Ml Vial) 0 unit SUBCUT QIDACHS [facility]; Protocol Last Admin: 03/24/24 17:03 Dose: Not Given Lactulose (Lactulose 20 Gm/30 Ml Solution) 20 gm PO TID [facility] Last Admin: 03/24/24 15:09 Dose: 20 gm Magnesium Hydroxide (Milk Of Magnesia 30 Ml Oral.Susp) 30 ml PO DAILY PRN PRN Reason: Constipation Melatonin (Melatonin 3 Mg Tablet) 3 mg PO BEDTIME [facility] Last Admin: 03/23/24 21:53 Dose: 3 mg Nicotine (Nicotine 21 Mg Patch.Td24) 21 mg TRANSDERMA DAILY PRN PRN Reason: nicotine cravings Nicotine Polacrilex (Nicotine Polacrilex 2 Mg Gum) 4 mg BUCCAL Q2H PRN PRN Reason: Nicotine Cravings Oxycodone HCl (Oxycodone Hcl Immed Release 5 Mg Tablet) 5 mg PO DAILY PRN PRN Reason: severe pain Last Admin: 03/24/24 08:23 Dose: 5 mg Pantoprazole Sodium (Pantoprazole Sodium 20 Mg Tablet.Dr) 40 mg PO DAILY@0630 [facility] Last Admin: 03/24/24 06:39 Dose: 40 mg Quetiapine Fumarate (Quetiapine Fumarate 50 Mg Tablet) 50 mg PO BEDTIME [facility] Last Admin: 03/23/24 21:53 Dose: 50 mg Rifaximin (Rifaximin 550 Mg Tablet) 550 mg PO BID [facility] Last Admin: 03/24/24 08:20 Dose: 550 mg Sodium Chloride (0.9 % Sodium Chloride Flush 10 Ml Syringe) 5 ml IVFLUSH TID@0500,1300,2100 [facility] Last Admin: 03/24/24 13:38 Dose: 5 ml Thiamine HCl (Thiamine Hcl 100 Mg Tablet) 100 mg PO DAILY [facility] Last Admin: 03/24/24 08:31 Dose: 100 mg Trazodone HCl (Trazodone Hcl 50 Mg Tablet) 50 mg PO BEDTIME MRX1 PRN PRN Reason: Insomnia Last Admin: 03/20/24 20:36 Dose: 50 mg Allergies Allergies Allergy/AdvReac Type Severity Reaction Status Date / Time ketorolac [From Toradol] AdvReac Itching Verified 03/16/24 19:06 Assessment & Plan Assessment & Plan (1) MDD (major depressive disorder), recurrent severe, without psychosis: Status: Inactive Code(s): F33.2 - Major depressive disorder, recurrent severe without psychotic features (2) PTSD (post-traumatic stress disorder): Status: Inactive Code(s): F43.10 - Post-traumatic stress disorder, unspecified (3) MSSA bacteremia: Status: Acute Code(s): R78.81 - Bacteremia; B95.61 - Methicillin susceptible Staphylococcus aureus infection as the cause of diseases classified elsewhere (4) Alcoholic hepatitis: Status: Resolved Code(s): K70.10 - Alcoholic hepatitis without ascites (5) Decompensation of cirrhosis of liver: Status: Inactive Code(s): K72.90 - Hepatic failure, unspecified without coma; K74.60 - Unspecified cirrhosis of liver (6) Opioid dependence: Status: Acute Code(s): F11.20 - Opioid dependence, uncomplicated (7) COPD (chronic obstructive pulmonary disease): Status: Acute Code(s): J44.9 - Chronic obstructive pulmonary disease, unspecified (8) HIV infection: Status: Inactive Code(s): B20 - Human immunodeficiency virus [HIV] disease (9) Cocaine abuse: Status: Inactive Code(s): F14.10 - Cocaine abuse, uncomplicated (10) Alcohol use disorder: Status: Inactive Code(s): F10.90 - Alcohol use, unspecified, uncomplicated Plan HPI: Patient is a 59-year-old male with history of depression, PTSD, opiate/alcohol dependence, HIV, alcohol hepatitis, hep C, portal hypotension/ascites, COPD who was transferred from the medical floor to [facility] for SI, following treatment for MSSA bacteremia, currently on IV antibiotics. Patient was being treated for MSSA bacteremia for several weeks on the hospital floor during which time he also developed: 1.encephalopathy from elevated liver enzymes/ammonia (resolved now on lactulose and rifaximin) 2.small-bowel obstruction, resolved with conservative treatment 3.Aspiration pneumonia, resolving 4.DELMI, resolved 5.Recurrent ascites with paracentesis x2 While on medical floor, patient was accepted to a sniff but left AMA; he came back the next day was admitted again and reported SI to jump off a bridge. Patient says that is mind was not right to tolerate going to a sniff so he left AMA, quickly finding himself depressed and walked over to a bridge, thinking of jumping; he says he saw the face of his sister who said come join me... Patient however self presented to the hospital, not wanting to and citing several protective factors including seeing certain family members grow up. Currently not suicidal Hospital course: 03/22 Patient reports that he is overall okay; no SI. Tired but pushing himself to get up and move around. agrees to remain at [facility] given longevity there and strong rapport with providers there. -initially going to go to SNF for physical therapy in addition to PICC line/antibiotics. Reached out to physical therapy who will re-evaluate patient next week. Of note patient left the hospital AMA and was walking around on his own quite some distance before he decided to return to the hospital. PLAN: CV Q 15 minute checks Bictegravir/Emtricitabine/Tenofovir (Bictegrav/Emtricit/Tenofov Ala Tablet) 1 tab PO DAILY [facility] Buprenorphine/Naloxone (Buprenorphine/Naloxone 8/2 Mg Film) 1 film SUBLINGUAL TID [facility] Bupropion HCl (Bupropion Hcl Xl 150 Mg Tab.Er.24h) 150 mg PO BID@0900,1500 [facility] Buspirone HCl (Buspirone Hcl 10 Mg Tablet) 10 mg PO BID [facility] Buspirone HCl (Buspirone Hcl 5 Mg Tablet) 15 mg PO BID [facility] Clopidogrel Bisulfate (Clopidogrel Bisulfate 75 Mg Tablet) 75 mg PO DAILY [facility] Empagliflozin (Empagliflozin 10 Mg Tablet) 10 mg PO DAILY [facility] Fluticasone/Vilanterol (Fluticasone/Vilanterol 100/25 Blst.W.Dev) 1 puff INHALE DAILY [facility] Folic Acid 1 mg PO DAILY [facility] Cefazolin Sodium/Dextrose (Ancef) 2 gm in 50 mls @ 100 mls/hr IV Q8H [facility] Lactulose (Lactulose 20 Gm/30 Ml Solution) 20 gm PO TID [facility] Melatonin (Melatonin 3 Mg Tablet) 6 mg PO BEDTIME PRN Ondansetron HCl Pantoprazole Sodium (Pantoprazole Sodium 20 Mg Tablet.) 40 mg PO DAILY@0630 [facility] Rifaximin (Rifaximin 550 Mg Tablet) 550 mg PO BID [facility] Sodium Chloride (0.9 % Sodium Chloride Flush 3 Ml Syringe) 3 ml IVFLUSH QSHIFT [facility] Thiamine HCl (Thiamine Hcl 100 Mg Tablet) 100 mg PO DAILY [facility] Gabapentin 100 mg t.i.d. Oxycodone HCl 5 mg PO daily prn Quetiapine Fumarate 50 mg PO BEDTIME [facility] Furosemide 20 mg daily Insulin sliding scale At discharge, will need to follow-up appointments for: Infectious disease GI 03/23: continue current management and treatment plan. 03/24: Lower Lactulose to BID. Otherwise continue current management and treatment plan. Reason for continued inpatient stay Substantial Risk for: harm to self, inability to function, rapid decompensation and med/psych decompensation Time Spent With Patient Time: Total time managing care of this patient today ____ minutes.
[2024-03-24 21:25] VITALS: BP 115/67; PULSE 80; TEMP 36.4; O2SAT 96
[2024-03-24] MEDS: Melatonin 3 MG TABLET PO (21:48)
[2024-03-24] MEDS: QUEtiapine Fumarate 50 MG TABLET PO (21:49)
[2024-03-24 22:06] LABS: Glucose, Whole Blood 127 mg/dL (60-115)
[2024-03-25] MEDS: 0.9 % Sodium Chloride Flush 10 ML SYRINGE 5 ML IVFLUSH ×3 (06:04→21:05)
[2024-03-25] MEDS: ceFAZolin Sodium/Dextrose,Iso 2 GM/50 ML PIGGYBACK IV ×3 (06:08→21:00)
[2024-03-25] MEDS: Pantoprazole Sodium 20 MG TABLET.DR 40 MG PO (06:09)
[2024-03-25 08:00] VITALS: BP 108/63; PULSE 81; RESP 20; TEMP 36.5; O2SAT 91
[2024-03-25 08:33] LABS: Glucose, Whole Blood 108 mg/dL (60-115)
[2024-03-25 08:59] VITALS: BP 108/63
[2024-03-25] MEDS: Furosemide 20 MG TABLET PO (08:59)
[2024-03-25] MEDS: Clopidogrel Bisulfate 75 MG TABLET PO (09:00)
[2024-03-25] MEDS: Bictegrav/Emtricit/Tenofov Ala TABLET 1 TAB PO (09:01)
[2024-03-25] MEDS: busPIRone HCl 5 MG TABLET 15 MG PO ×2 (09:01→21:03)
[2024-03-25] MEDS: buPROPion HCl XL 150 MG TAB.ER.24H PO ×2 (09:02→15:29)
[2024-03-25] MEDS: Thiamine HCL 100 MG TABLET PO (09:02)
[2024-03-25] MEDS: Gabapentin 100 MG CAPSULE PO ×3 (09:02→21:05)
[2024-03-25] MEDS: Empagliflozin 10 MG TABLET PO (09:02)
[2024-03-25] MEDS: Folic Acid 1 MG TABLET PO (09:02)
[2024-03-25] MEDS: rifAXIMin 550 MG TABLET PO ×2 (09:03→21:04)
[2024-03-25] MEDS: Buprenorphine/Naloxone 8/2 mg FILM 1 FILM SUBLINGUAL ×3 (09:03→21:02)
[2024-03-25] MEDS: busPIRone HCl 10 MG TABLET PO ×2 (09:03→21:04)
[2024-03-25] MEDS: oxyCODONE HCl Immed Release 5 MG TABLET PO (09:35)
[2024-03-25] MEDS: Fluticasone/Vilanterol 100/25 BLST.W.DEV 1 PUFF INHALE (09:36)
[2024-03-25 11:51] LABS: Glucose, Whole Blood 104 mg/dL (60-115)
[2024-03-25 12:00] LABS: Glucose, Whole Blood 135 mg/dL (60-115)
[2024-03-25 14:17] VITALS: PULSE 93; O2SAT 92
--- NOTE | 2024-03-25 14:21 | HO.PSYCHPN ---
Subjective Subjective Date of Service: 03/25/24 Reason For Visit: SI depression Subjective Notes: Conditional Voluntary Interim History: The nursing staff reported the patient has been transferred from to this unit for continuation of treatment. On interview the patient reports that she is feeling still tired and dysphoric but feeling much better than before. We review his list of medications and we needed to increase her Seroquel as a mood stabilizer. He agreed on the plan Mental Status Exam Mental Status Exam Patient Appearance: Appropriate Patient Orientation: Person and Situation Level of Consciousness: Awake and Appropriate Patient Behavior: Guarded and Passive Mood Description: Withdrawn Affect Description: Constricted Patient Cognition Impaired: Yes Ability to Follow Directions: Good Speech Pattern: Clear Hallucinations: None Delusions: Not Present Thought Process: Distracted and Slowed Thinking Thought Content: positive for [place] and positive for Poverty of Content Judgement: Fair Diagnostics Vital Signs (24Hr): Vital Signs - 24 hr 03/24/24 21:25 03/25/24 08:00 03/25/24 08:59 Temperature 97.5 F 97.7 F Pulse Rate 80 81 Respiratory Rate 20 Blood Pressure 115/67 108/63 108/63 Pulse Oximetry 96 91 L Oxygen Delivery Method Room Air Room Air BMI result Body Mass Index 20.9 Labs 03/21/24 09:08 Labs: Laboratory Results - last 48 hr 03/23/24 03/24/24 03/24/24 17:23 08:31 12:29 POC Glucose 110 101 143 H 03/24/24 03/25/24 03/25/24 22:02 08:29 08:36 POC Glucose 127 H 108 104 03/25/24 11:52 POC Glucose 135 H Medications Medications Current Medications Al Hydroxide/Mg Hydroxide (Magnesium Hydrox/Alum Hydrox 30 Ml Oral.Susp) 30 ml PO Q6H PRN PRN Reason: Heartburn/Nausea Bictegravir/Emtricitabine/Tenofovir (Bictegrav/Emtricit/Tenofov Ala Tablet) 1 tab PO DAILY [facility] Last Admin: 03/25/24 09:01 Dose: 1 tab Buprenorphine/Naloxone (Buprenorphine/Naloxone 8/2 Mg Film) 1 film SUBLINGUAL TID [facility] Last Admin: 03/25/24 09:03 Dose: 1 film Bupropion HCl (Bupropion Hcl Xl 150 Mg Tab.Er.24h) 150 mg PO BID@0900,1500 [facility] Last Admin: 03/25/24 09:02 Dose: 150 mg Buspirone HCl (Buspirone Hcl 10 Mg Tablet) 10 mg PO BID [facility] Last Admin: 03/25/24 09:03 Dose: 10 mg Buspirone HCl (Buspirone Hcl 5 Mg Tablet) 15 mg PO BID [facility] Last Admin: 03/25/24 09:01 Dose: 15 mg Clopidogrel Bisulfate (Clopidogrel Bisulfate 75 Mg Tablet) 75 mg PO DAILY [facility] Last Admin: 03/25/24 09:00 Dose: 75 mg Empagliflozin (Empagliflozin 10 Mg Tablet) 10 mg PO DAILY [facility] Last Admin: 03/25/24 09:02 Dose: 10 mg Fluticasone/Vilanterol (Fluticasone/Vilanterol 100/25 Blst.W.Dev) 1 puff INHALE RDAILY [facility] Last Admin: 03/25/24 09:36 Dose: 1 puff Folic Acid (Folic Acid 1 Mg Tablet) 1 mg PO DAILY [facility] Last Admin: 03/25/24 09:02 Dose: 1 mg Furosemide (Furosemide 20 Mg Tablet) 20 mg PO DAILY [facility]; Protocol Last Admin: 03/25/24 08:59 Dose: 20 mg Gabapentin (Gabapentin 100 Mg Capsule) 100 mg PO TID [facility] Last Admin: 03/25/24 09:02 Dose: 100 mg Hydroxyzine HCl (Hydroxyzine Hcl 25 Mg Tablet) 25 mg PO Q6H PRN PRN Reason: Anxiety Last Admin: 03/21/24 22:07 Dose: 25 mg Cefazolin Sodium/Dextrose (Ancef) 2 gm in 50 mls @ 100 mls/hr IV Q8H [facility] Last Infusion: 03/25/24 07:11 Dose: Infused Insulin Human Lispro (Insulin Lispro 100 Unit/Ml 3 Ml Vial) 0 unit SUBCUT QIDACHS [facility]; Protocol Last Admin: 03/25/24 12:54 Dose: Not Given Lactulose (Lactulose 20 Gm/30 Ml Solution) 20 gm PO BID [facility] Last Admin: 03/25/24 09:30 Dose: Not Given Magnesium Hydroxide (Milk Of Magnesia 30 Ml Oral.Susp) 30 ml PO DAILY PRN PRN Reason: Constipation Melatonin (Melatonin 3 Mg Tablet) 3 mg PO BEDTIME [facility] Last Admin: 03/24/24 21:48 Dose: 3 mg Nicotine (Nicotine 21 Mg Patch.Td24) 21 mg TRANSDERMA DAILY PRN PRN Reason: nicotine cravings Nicotine Polacrilex (Nicotine Polacrilex 2 Mg Gum) 4 mg BUCCAL Q2H PRN PRN Reason: Nicotine Cravings Oxycodone HCl (Oxycodone Hcl Immed Release 5 Mg Tablet) 5 mg PO DAILY PRN PRN Reason: severe pain Last Admin: 03/25/24 09:35 Dose: 5 mg Pantoprazole Sodium (Pantoprazole Sodium 20 Mg Tablet.Dr) 40 mg PO DAILY@0630 [facility] Last Admin: 03/25/24 06:09 Dose: 40 mg Quetiapine Fumarate (Quetiapine Fumarate 50 Mg Tablet) 50 mg PO BEDTIME [facility] Last Admin: 03/24/24 21:49 Dose: 50 mg Rifaximin (Rifaximin 550 Mg Tablet) 550 mg PO BID [facility] Last Admin: 03/25/24 09:03 Dose: 550 mg Sodium Chloride (0.9 % Sodium Chloride Flush 10 Ml Syringe) 5 ml IVFLUSH TID@0500,1300,2100 [facility] Last Admin: 03/25/24 06:04 Dose: 5 ml Thiamine HCl (Thiamine Hcl 100 Mg Tablet) 100 mg PO DAILY [facility] Last Admin: 03/25/24 09:02 Dose: 100 mg Trazodone HCl (Trazodone Hcl 50 Mg Tablet) 50 mg PO BEDTIME MRX1 PRN PRN Reason: Insomnia Last Admin: 03/20/24 20:36 Dose: 50 mg Allergies Allergies Allergy/AdvReac Type Severity Reaction Status Date / Time ketorolac [From Toradol] AdvReac Itching Verified 03/16/24 19:06 Assessment & Plan Assessment & Plan (1) MDD (major depressive disorder), recurrent severe, without psychosis: Status: Inactive Code(s): F33.2 - Major depressive disorder, recurrent severe without psychotic features (2) PTSD (post-traumatic stress disorder): Status: Inactive Code(s): F43.10 - Post-traumatic stress disorder, unspecified (3) MSSA bacteremia: Status: Acute Code(s): R78.81 - Bacteremia; B95.61 - Methicillin susceptible Staphylococcus aureus infection as the cause of diseases classified elsewhere (4) Alcoholic hepatitis: Status: Resolved Code(s): K70.10 - Alcoholic hepatitis without ascites (5) Decompensation of cirrhosis of liver: Status: Inactive Code(s): K72.90 - Hepatic failure, unspecified without coma; K74.60 - Unspecified cirrhosis of liver (6) Opioid dependence: Status: Acute Code(s): F11.20 - Opioid dependence, uncomplicated (7) COPD (chronic obstructive pulmonary disease): Status: Acute Code(s): J44.9 - Chronic obstructive pulmonary disease, unspecified (8) HIV infection: Status: Inactive Code(s): B20 - Human immunodeficiency virus [HIV] disease (9) Cocaine abuse: Status: Inactive Code(s): F14.10 - Cocaine abuse, uncomplicated (10) Alcohol use disorder: Status: Inactive Code(s): F10.90 - Alcohol use, unspecified, uncomplicated Plan HPI: Patient is a 59-year-old male with history of depression, PTSD, opiate/alcohol dependence, HIV, alcohol hepatitis, hep C, portal hypotension/ascites, COPD who was transferred from the medical floor to [facility] for SI, following treatment for MSSA bacteremia, currently on IV antibiotics. Patient was being treated for MSSA bacteremia for several weeks on the hospital floor during which time he also developed: 1.encephalopathy from elevated liver enzymes/ammonia (resolved now on lactulose and rifaximin) 2.small-bowel obstruction, resolved with conservative treatment 3.Aspiration pneumonia, resolving 4.DLEMI, resolved 5.Recurrent ascites with paracentesis x2 While on medical floor, patient was accepted to a sniff but left AMA; he came back the next day was admitted again and reported SI to jump off a bridge. Patient says that is mind was not right to tolerate going to a sniff so he left AMA, quickly finding himself depressed and walked over to a bridge, thinking of jumping; he says he saw the face of his sister who said come join me... Patient however self presented to the hospital, not wanting to and citing several protective factors including seeing certain family members grow up. Currently not suicidal Hospital course: 03/22 Patient reports that he is overall okay; no SI. Tired but pushing himself to get up and move around. agrees to remain at [facility] given longevity there and strong rapport with providers there. -initially going to go to SNF for physical therapy in addition to PICC line/antibiotics. Reached out to physical therapy who will re-evaluate patient next week. Of note patient left the hospital AMA and was walking around on his own quite some distance before he decided to return to the hospital. PLAN: CV Q 15 minute checks Bictegravir/Emtricitabine/Tenofovir (Bictegrav/Emtricit/Tenofov Ala Tablet) 1 tab PO DAILY [facility] Buprenorphine/Naloxone (Buprenorphine/Naloxone 8/2 Mg Film) 1 film SUBLINGUAL TID [facility] Bupropion HCl (Bupropion Hcl Xl 150 Mg Tab.Er.24h) 150 mg PO BID@0900,1500 [facility] Buspirone HCl (Buspirone Hcl 10 Mg Tablet) 10 mg PO BID [facility] Buspirone HCl (Buspirone Hcl 5 Mg Tablet) 15 mg PO BID [facility] Clopidogrel Bisulfate (Clopidogrel Bisulfate 75 Mg Tablet) 75 mg PO DAILY [facility] Empagliflozin (Empagliflozin 10 Mg Tablet) 10 mg PO DAILY [facility] Fluticasone/Vilanterol (Fluticasone/Vilanterol 100/25 Blst.W.Dev) 1 puff INHALE DAILY [facility] Folic Acid 1 mg PO DAILY [facility] Cefazolin Sodium/Dextrose (Ancef) 2 gm in 50 mls @ 100 mls/hr IV Q8H [facility] Lactulose (Lactulose 20 Gm/30 Ml Solution) 20 gm PO TID [facility] Melatonin (Melatonin 3 Mg Tablet) 6 mg PO BEDTIME PRN Ondansetron HCl Pantoprazole Sodium (Pantoprazole Sodium 20 Mg Tablet.Dr) 40 mg PO DAILY@0630 [facility] Rifaximin (Rifaximin 550 Mg Tablet) 550 mg PO BID [facility] Sodium Chloride (0.9 % Sodium Chloride Flush 3 Ml Syringe) 3 ml IVFLUSH QSHIFT [facility] Thiamine HCl (Thiamine Hcl 100 Mg Tablet) 100 mg PO DAILY [facility] Gabapentin 100 mg t.i.d. Oxycodone HCl 5 mg PO daily prn Quetiapine Fumarate 50 mg PO BEDTIME [facility] Furosemide 20 mg daily Insulin sliding scale At discharge, will need to follow-up appointments for: Infectious disease GI 03/23: continue current management and treatment plan. 03/24: Lower Lactulose to BID. Otherwise continue current management and treatment plan. March 25 increase Seroquel up to 100 mg p.o. q.h.s. Reason for continued inpatient stay Substantial Risk for: inability to function, rapid decompensation and med/psych decompensation Time Spent With Patient Time: Total time managing care of this patient today __20__ minutes.
[2024-03-25 16:11] LABS: Glucose, Whole Blood 167 mg/dL (60-115)
[2024-03-25] MEDS: Insulin Lispro 100 UNIT/ML 3 ML VIAL SUBCUT (16:47)
[2024-03-25 20:00] VITALS: BP 109/92; PULSE 83; RESP 18; TEMP 36.2; O2SAT 93
[2024-03-25 20:08] LABS: Glucose, Whole Blood 137 mg/dL (60-115)
[2024-03-25] MEDS: Lactulose 20 GM/30 ML SOLUTION PO (21:03)
[2024-03-25] MEDS: QUEtiapine Fumarate 100 MG TABLET PO (21:04)
[2024-03-25] MEDS: Melatonin 3 MG TABLET PO (21:04)
[2024-03-26] MEDS: ceFAZolin Sodium/Dextrose,Iso 2 GM/50 ML PIGGYBACK IV ×3 (05:14→20:40)
[2024-03-26] MEDS: 0.9 % Sodium Chloride Flush 10 ML SYRINGE 5 ML IVFLUSH ×3 (05:15→20:32)
[2024-03-26] MEDS: Pantoprazole Sodium 20 MG TABLET.DR 40 MG PO (05:53)
[2024-03-26 06:40] LABS: Glucose, Whole Blood 128 mg/dL (60-115)
[2024-03-26 08:45] VITALS: BP 107/57; PULSE 85; RESP 18; TEMP 36.2; O2SAT 93
[2024-03-26] MEDS: Lactulose 20 GM/30 ML SOLUTION PO ×2 (08:57→20:35)
[2024-03-26] MEDS: Fluticasone/Vilanterol 100/25 BLST.W.DEV 1 PUFF INHALE (08:57)
[2024-03-26] MEDS: Magnesium Hydrox/Alum Hydrox 30 ML ORAL.SUSP PO (08:57)
[2024-03-26] MEDS: Buprenorphine/Naloxone 8/2 mg FILM 1 FILM SUBLINGUAL ×3 (08:57→20:33)
[2024-03-26] MEDS: busPIRone HCl 5 MG TABLET 15 MG PO ×2 (08:57→20:36)
[2024-03-26] MEDS: buPROPion HCl XL 150 MG TAB.ER.24H PO ×2 (08:59→15:16)
[2024-03-26] MEDS: Folic Acid 1 MG TABLET PO (08:59)
[2024-03-26] MEDS: busPIRone HCl 10 MG TABLET PO ×2 (08:59→20:37)
[2024-03-26 09:00] VITALS: BP 107/57
[2024-03-26] MEDS: Empagliflozin 10 MG TABLET PO (09:00)
[2024-03-26] MEDS: Clopidogrel Bisulfate 75 MG TABLET PO (09:00)
[2024-03-26] MEDS: Furosemide 20 MG TABLET PO (09:00)
[2024-03-26] MEDS: Gabapentin 100 MG CAPSULE PO ×3 (09:00→20:35)
[2024-03-26] MEDS: Bictegrav/Emtricit/Tenofov Ala TABLET 1 TAB PO (09:01)
[2024-03-26] MEDS: rifAXIMin 550 MG TABLET PO ×2 (09:01→20:37)
[2024-03-26] MEDS: Thiamine HCL 100 MG TABLET PO (09:02)
[2024-03-26 11:21] LABS: Glucose, Whole Blood 130 mg/dL (60-115)
--- NOTE | 2024-03-26 12:43 | HO.PSYCHPN ---
Subjective Subjective Date of Service: 03/26/24 Reason For Visit: SI depression Subjective Notes: Conditional Voluntary Interim History: The nursing staff reported the patient had been receiving antibiotics he slept 8 hours and he denies any new issues. On interview the patient feels tired physically sick. He slept better with a mild increase of Seroquel. Mental Status Exam Mental Status Exam Patient Appearance: Appropriate Patient Orientation: Person, Place and Situation Level of Consciousness: Awake and Appropriate Patient Behavior: Guarded and Cooperative Mood Description: Calm Affect Description: Constricted Patient Cognition Impaired: Yes Ability to Follow Directions: Good Speech Pattern: Clear Hallucinations: None Delusions: Not Present Thought Process: Distracted and Slowed Thinking Thought Content: positive for [place] and positive for Poverty of Content Judgement: Poor Diagnostics Vital Signs (24Hr): Vital Signs - 24 hr 03/25/24 14:17 03/25/24 20:00 03/26/24 08:45 Temperature 97.2 F 97.1 F Pulse Rate 93 83 85 Respiratory Rate 18 18 Blood Pressure 109/92 H 107/57 L Pulse Oximetry 92 93 93 Oxygen Delivery Method Room Air Room Air 03/26/24 09:00 Temperature Pulse Rate Respiratory Rate Blood Pressure 107/57 L Pulse Oximetry Oxygen Delivery Method BMI result Body Mass Index 20.9 Labs 03/21/24 09:08 Labs: Laboratory Results - last 48 hr 03/24/24 03/25/24 03/25/24 22:02 08:29 08:36 POC Glucose 127 H 108 104 03/25/24 03/25/24 03/25/24 11:52 16:04 20:03 POC Glucose 135 H 167 H 137 H 03/26/24 03/26/24 06:36 11:12 POC Glucose 128 H 130 H Medications Medications Current Medications Al Hydroxide/Mg Hydroxide (Magnesium Hydrox/Alum Hydrox 30 Ml Oral.Susp) 30 ml PO Q6H PRN PRN Reason: Heartburn/Nausea Last Admin: 03/26/24 08:57 Dose: 30 ml Bictegravir/Emtricitabine/Tenofovir (Bictegrav/Emtricit/Tenofov Ala Tablet) 1 tab PO DAILY [facility] Last Admin: 03/26/24 09:01 Dose: 1 tab Buprenorphine/Naloxone (Buprenorphine/Naloxone 8/2 Mg Film) 1 film SUBLINGUAL TID [facility] Last Admin: 03/26/24 08:57 Dose: 1 film Bupropion HCl (Bupropion Hcl Xl 150 Mg Tab.Er.24h) 150 mg PO BID@0900,1500 [facility] Last Admin: 03/26/24 08:59 Dose: 150 mg Buspirone HCl (Buspirone Hcl 10 Mg Tablet) 10 mg PO BID [facility] Last Admin: 03/26/24 08:59 Dose: 10 mg Buspirone HCl (Buspirone Hcl 5 Mg Tablet) 15 mg PO BID [facility] Last Admin: 03/26/24 08:57 Dose: 15 mg Clopidogrel Bisulfate (Clopidogrel Bisulfate 75 Mg Tablet) 75 mg PO DAILY [facility] Last Admin: 03/26/24 09:00 Dose: 75 mg Empagliflozin (Empagliflozin 10 Mg Tablet) 10 mg PO DAILY [facility] Last Admin: 03/26/24 09:00 Dose: 10 mg Fluticasone/Vilanterol (Fluticasone/Vilanterol 100/25 Blst.W.Dev) 1 puff INHALE RDAILY [facility] Last Admin: 03/26/24 08:57 Dose: 1 puff Folic Acid (Folic Acid 1 Mg Tablet) 1 mg PO DAILY [facility] Last Admin: 03/26/24 08:59 Dose: 1 mg Furosemide (Furosemide 20 Mg Tablet) 20 mg PO DAILY [facility]; Protocol Last Admin: 03/26/24 09:00 Dose: 20 mg Gabapentin (Gabapentin 100 Mg Capsule) 100 mg PO TID [facility] Last Admin: 03/26/24 09:00 Dose: 100 mg Hydroxyzine HCl (Hydroxyzine Hcl 25 Mg Tablet) 25 mg PO Q6H PRN PRN Reason: Anxiety Last Admin: 03/21/24 22:07 Dose: 25 mg Cefazolin Sodium/Dextrose (Ancef) 2 gm in 50 mls @ 100 mls/hr IV Q8H [facility] Last Infusion: 03/26/24 06:00 Dose: Infused Insulin Human Lispro (Insulin Lispro 100 Unit/Ml 3 Ml Vial) 0 unit SUBCUT QIDACHS [facility]; Protocol Last Admin: 03/26/24 11:52 Dose: Not Given Lactulose (Lactulose 20 Gm/30 Ml Solution) 20 gm PO BID [facility] Last Admin: 03/26/24 08:57 Dose: 20 gm Magnesium Hydroxide (Milk Of Magnesia 30 Ml Oral.Susp) 30 ml PO DAILY PRN PRN Reason: Constipation Melatonin (Melatonin 3 Mg Tablet) 3 mg PO BEDTIME [facility] Last Admin: 03/25/24 21:04 Dose: 3 mg Nicotine (Nicotine 21 Mg Patch.Td24) 21 mg TRANSDERMA DAILY PRN PRN Reason: nicotine cravings Nicotine Polacrilex (Nicotine Polacrilex 2 Mg Gum) 4 mg BUCCAL Q2H PRN PRN Reason: Nicotine Cravings Oxycodone HCl (Oxycodone Hcl Immed Release 5 Mg Tablet) 5 mg PO DAILY PRN PRN Reason: severe pain Last Admin: 03/25/24 09:35 Dose: 5 mg Pantoprazole Sodium (Pantoprazole Sodium 20 Mg Tablet.Dr) 40 mg PO DAILY@0630 [facility] Last Admin: 03/26/24 05:53 Dose: 40 mg Quetiapine Fumarate (Quetiapine Fumarate 100 Mg Tablet) 100 mg PO BEDTIME [facility] Last Admin: 03/25/24 21:04 Dose: 100 mg Rifaximin (Rifaximin 550 Mg Tablet) 550 mg PO BID [facility] Last Admin: 03/26/24 09:01 Dose: 550 mg Sodium Chloride (0.9 % Sodium Chloride Flush 10 Ml Syringe) 5 ml IVFLUSH TID@0500,1300,2100 [facility] Last Admin: 03/26/24 05:15 Dose: 5 ml Thiamine HCl (Thiamine Hcl 100 Mg Tablet) 100 mg PO DAILY [facility] Last Admin: 03/26/24 09:02 Dose: 100 mg Trazodone HCl (Trazodone Hcl 50 Mg Tablet) 50 mg PO BEDTIME MRX1 PRN PRN Reason: Insomnia Last Admin: 03/20/24 20:36 Dose: 50 mg Allergies Allergies Allergy/AdvReac Type Severity Reaction Status Date / Time ketorolac [From Toradol] AdvReac Itching Verified 03/16/24 19:06 Assessment & Plan Assessment & Plan (1) MDD (major depressive disorder), recurrent severe, without psychosis: Status: Inactive Code(s): F33.2 - Major depressive disorder, recurrent severe without psychotic features (2) PTSD (post-traumatic stress disorder): Status: Inactive Code(s): F43.10 - Post-traumatic stress disorder, unspecified (3) MSSA bacteremia: Status: Acute Code(s): R78.81 - Bacteremia; B95.61 - Methicillin susceptible Staphylococcus aureus infection as the cause of diseases classified elsewhere (4) Alcoholic hepatitis: Status: Resolved Code(s): K70.10 - Alcoholic hepatitis without ascites (5) Decompensation of cirrhosis of liver: Status: Inactive Code(s): K72.90 - Hepatic failure, unspecified without coma; K74.60 - Unspecified cirrhosis of liver (6) Opioid dependence: Status: Acute Code(s): F11.20 - Opioid dependence, uncomplicated (7) COPD (chronic obstructive pulmonary disease): Status: Acute Code(s): J44.9 - Chronic obstructive pulmonary disease, unspecified (8) HIV infection: Status: Inactive Code(s): B20 - Human immunodeficiency virus [HIV] disease (9) Cocaine abuse: Status: Inactive Code(s): F14.10 - Cocaine abuse, uncomplicated (10) Alcohol use disorder: Status: Inactive Code(s): F10.90 - Alcohol use, unspecified, uncomplicated Plan HPI: Patient is a 59-year-old male with history of depression, PTSD, opiate/alcohol dependence, HIV, alcohol hepatitis, hep C, portal hypotension/ascites, COPD who was transferred from the medical floor to [facility] for SI, following treatment for MSSA bacteremia, currently on IV antibiotics. Patient was being treated for MSSA bacteremia for several weeks on the hospital floor during which time he also developed: 1.encephalopathy from elevated liver enzymes/ammonia (resolved now on lactulose and rifaximin) 2.small-bowel obstruction, resolved with conservative treatment 3.Aspiration pneumonia, resolving 4.DELMI, resolved 5.Recurrent ascites with paracentesis x2 While on medical floor, patient was accepted to a sniff but left AMA; he came back the next day was admitted again and reported SI to jump off a bridge. Patient says that is mind was not right to tolerate going to a sniff so he left AMA, quickly finding himself depressed and walked over to a bridge, thinking of jumping; he says he saw the face of his sister who said come join me... Patient however self presented to the hospital, not wanting to and citing several protective factors including seeing certain family members grow up. Currently not suicidal Hospital course: 03/22 Patient reports that he is overall okay; no SI. Tired but pushing himself to get up and move around. agrees to remain at [facility] given longevity there and strong rapport with providers there. -initially going to go to SNF for physical therapy in addition to PICC line/antibiotics. Reached out to physical therapy who will re-evaluate patient next week. Of note patient left the hospital AMA and was walking around on his own quite some distance before he decided to return to the hospital. PLAN: CV Q 15 minute checks Bictegravir/Emtricitabine/Tenofovir (Bictegrav/Emtricit/Tenofov Ala Tablet) 1 tab PO DAILY [facility] Buprenorphine/Naloxone (Buprenorphine/Naloxone 8/2 Mg Film) 1 film SUBLINGUAL TID [facility] Bupropion HCl (Bupropion Hcl Xl 150 Mg Tab.Er.24h) 150 mg PO BID@0900,1500 [facility] Buspirone HCl (Buspirone Hcl 10 Mg Tablet) 10 mg PO BID [facility] Buspirone HCl (Buspirone Hcl 5 Mg Tablet) 15 mg PO BID [facility] Clopidogrel Bisulfate (Clopidogrel Bisulfate 75 Mg Tablet) 75 mg PO DAILY [facility] Empagliflozin (Empagliflozin 10 Mg Tablet) 10 mg PO DAILY [facility] Fluticasone/Vilanterol (Fluticasone/Vilanterol 100/25 Blst.W.Dev) 1 puff INHALE DAILY [facility] Folic Acid 1 mg PO DAILY [facility] Cefazolin Sodium/Dextrose (Ancef) 2 gm in 50 mls @ 100 mls/hr IV Q8H [facility] Lactulose (Lactulose 20 Gm/30 Ml Solution) 20 gm PO TID [facility] Melatonin (Melatonin 3 Mg Tablet) 6 mg PO BEDTIME PRN Ondansetron HCl Pantoprazole Sodium (Pantoprazole Sodium 20 Mg Tablet.) 40 mg PO DAILY@0630 [facility] Rifaximin (Rifaximin 550 Mg Tablet) 550 mg PO BID [facility] Sodium Chloride (0.9 % Sodium Chloride Flush 3 Ml Syringe) 3 ml IVFLUSH QSHIFT [facility] Thiamine HCl (Thiamine Hcl 100 Mg Tablet) 100 mg PO DAILY [facility] Gabapentin 100 mg t.i.d. Oxycodone HCl 5 mg PO daily prn Quetiapine Fumarate 50 mg PO BEDTIME [facility] Furosemide 20 mg daily Insulin sliding scale At discharge, will need to follow-up appointments for: Infectious disease GI 03/23: continue current management and treatment plan. 03/24: Lower Lactulose to BID. Otherwise continue current management and treatment plan. March 25 increase Seroquel up to 100 mg p.o. q.h.s. we will keep on the same dose for the next days Reason for continued inpatient stay Substantial Risk for: inability to function, rapid decompensation and med/psych decompensation Time Spent With Patient Time: Total time managing care of this patient today __20__ minutes.
[2024-03-26 16:37] LABS: Glucose, Whole Blood 127 mg/dL (60-115)
[2024-03-26 20:00] VITALS: BP 106/65; PULSE 74; RESP 16; TEMP 36.4; O2SAT 92
[2024-03-26 20:11] LABS: Glucose, Whole Blood 170 mg/dL (60-115)
[2024-03-26] MEDS: Insulin Lispro 100 UNIT/ML 3 ML VIAL SUBCUT (20:35)
[2024-03-26] MEDS: oxyCODONE HCl Immed Release 5 MG TABLET PO (20:36)
[2024-03-26] MEDS: QUEtiapine Fumarate 100 MG TABLET PO (20:37)
[2024-03-26] MEDS: Melatonin 3 MG TABLET PO (20:37)
[2024-03-27] MEDS: Pantoprazole Sodium 20 MG TABLET.DR 40 MG PO (05:14)
[2024-03-27] MEDS: ceFAZolin Sodium/Dextrose,Iso 2 GM/50 ML PIGGYBACK IV ×3 (05:15→22:20)
[2024-03-27] MEDS: 0.9 % Sodium Chloride Flush 10 ML SYRINGE 5 ML IVFLUSH ×3 (05:16→22:45)
[2024-03-27 06:47] LABS: Glucose, Whole Blood 103 mg/dL (60-115)
[2024-03-27 08:55] VITALS: BP 119/69; PULSE 80; RESP 18; TEMP 36.5; O2SAT 92
[2024-03-27] MEDS: Fluticasone/Vilanterol 100/25 BLST.W.DEV 1 PUFF INHALE (08:57)
[2024-03-27] MEDS: Lactulose 20 GM/30 ML SOLUTION PO ×2 (08:57→22:27)
[2024-03-27] MEDS: Thiamine HCL 100 MG TABLET PO (08:58)
[2024-03-27] MEDS: Bictegrav/Emtricit/Tenofov Ala TABLET 1 TAB PO (08:58)
[2024-03-27] MEDS: Buprenorphine/Naloxone 8/2 mg FILM 1 FILM SUBLINGUAL ×3 (08:58→22:21)
[2024-03-27] MEDS: Folic Acid 1 MG TABLET PO (08:58)
[2024-03-27] MEDS: Furosemide 20 MG TABLET PO (08:58)
[2024-03-27] MEDS: rifAXIMin 550 MG TABLET PO ×2 (08:58→22:24)
[2024-03-27] MEDS: Gabapentin 100 MG CAPSULE PO ×3 (08:58→22:27)
[2024-03-27] MEDS: Clopidogrel Bisulfate 75 MG TABLET PO (08:59)
[2024-03-27] MEDS: buPROPion HCl XL 150 MG TAB.ER.24H PO ×2 (08:59→15:41)
[2024-03-27] MEDS: busPIRone HCl 5 MG TABLET 15 MG PO ×3 (08:59→22:47)
[2024-03-27] MEDS: Empagliflozin 10 MG TABLET PO (08:59)
[2024-03-27] MEDS: busPIRone HCl 10 MG TABLET PO ×2 (09:00→23:43)
[2024-03-27 11:30] LABS: Glucose, Whole Blood 146 mg/dL (60-115)
--- NOTE | 2024-03-27 13:40 | P.PNPSI_ITS ---
Subjective Subjective Date of Service: 03/27/24 Reason For Visit: SI depression Subjective Notes: Conditional Voluntary Interim History: The nursing staff reported the patient remains in his bed most of the time he was out for meals he report discomfort for his ascites. On interview the patient reports that he is feeling tired most of the time. He denies active suicidal ideation. Sleepy still but with Seroquel 100. We are going to keep on the same dose since he have acute liver damage. Mental Status Exam Mental Status Exam Patient Appearance: Appropriate Patient Orientation: Person and Situation Level of Consciousness: Awake and Appropriate Patient Behavior: Guarded and Passive Mood Description: Withdrawn Affect Description: Constricted Patient Cognition Impaired: Yes Ability to Follow Directions: Good Speech Pattern: Clear Hallucinations: None Delusions: Not Present Thought Process: Linear Thought Content: positive for [place] and positive for Poverty of Content Judgement: Fair Diagnostics Vital Signs (24Hr): Vital Signs - 24 hr 03/26/24 20:00 03/27/24 08:55 Temperature 97.5 F 97.7 F Pulse Rate 74 80 Respiratory Rate 16 18 Blood Pressure 106/65 119/69 Pulse Oximetry 92 92 Oxygen Delivery Method Room Air Room Air BMI result Body Mass Index 20.9 Labs 03/21/24 09:08 Labs: Laboratory Results - last 48 hr 03/25/24 03/25/24 03/26/24 16:04 20:03 06:36 POC Glucose 167 H 137 H 128 H 03/26/24 03/26/24 03/26/24 11:12 16:23 20:06 POC Glucose 130 H 127 H 170 H 03/27/24 03/27/24 06:20 11:26 POC Glucose 103 146 H Medications Medications Current Medications Al Hydroxide/Mg Hydroxide (Magnesium Hydrox/Alum Hydrox 30 Ml Oral.Susp) 30 ml PO Q6H PRN PRN Reason: Heartburn/Nausea Last Admin: 03/26/24 08:57 Dose: 30 ml Bictegravir/Emtricitabine/Tenofovir (Bictegrav/Emtricit/Tenofov Ala Tablet) 1 tab PO DAILY [facility] Last Admin: 03/27/24 08:58 Dose: 1 tab Buprenorphine/Naloxone (Buprenorphine/Naloxone 8/2 Mg Film) 1 film SUBLINGUAL TID [facility] Last Admin: 03/27/24 08:58 Dose: 1 film Bupropion HCl (Bupropion Hcl Xl 150 Mg Tab.Er.24h) 150 mg PO BID@0900,1500 [facility] Last Admin: 03/27/24 08:59 Dose: 150 mg Buspirone HCl (Buspirone Hcl 10 Mg Tablet) 10 mg PO BID [facility] Last Admin: 03/27/24 09:00 Dose: 10 mg Buspirone HCl (Buspirone Hcl 5 Mg Tablet) 15 mg PO BID [facility] Last Admin: 03/27/24 08:59 Dose: 15 mg Clopidogrel Bisulfate (Clopidogrel Bisulfate 75 Mg Tablet) 75 mg PO DAILY [facility] Last Admin: 03/27/24 08:59 Dose: 75 mg Empagliflozin (Empagliflozin 10 Mg Tablet) 10 mg PO DAILY [facility] Last Admin: 03/27/24 08:59 Dose: 10 mg Fluticasone/Vilanterol (Fluticasone/Vilanterol 100/25 Blst.W.Dev) 1 puff INHALE RDAILY [facility] Last Admin: 03/27/24 08:57 Dose: 1 puff Folic Acid (Folic Acid 1 Mg Tablet) 1 mg PO DAILY [facility] Last Admin: 03/27/24 08:58 Dose: 1 mg Furosemide (Furosemide 20 Mg Tablet) 20 mg PO DAILY [facility]; Protocol Last Admin: 03/27/24 08:58 Dose: 20 mg Gabapentin (Gabapentin 100 Mg Capsule) 100 mg PO TID [facility] Last Admin: 03/27/24 08:58 Dose: 100 mg Hydroxyzine HCl (Hydroxyzine Hcl 25 Mg Tablet) 25 mg PO Q6H PRN PRN Reason: Anxiety Last Admin: 03/21/24 22:07 Dose: 25 mg Cefazolin Sodium/Dextrose (Ancef) 2 gm in 50 mls @ 100 mls/hr IV Q8H [facility] Last Infusion: 03/27/24 06:04 Dose: Infused Insulin Human Lispro (Insulin Lispro 100 Unit/Ml 3 Ml Vial) 0 unit SUBCUT QIDACHS [facility]; Protocol Last Admin: 03/27/24 11:32 Dose: Not Given Lactulose (Lactulose 20 Gm/30 Ml Solution) 20 gm PO BID [facility] Last Admin: 03/27/24 08:57 Dose: 20 gm Magnesium Hydroxide (Milk Of Magnesia 30 Ml Oral.Susp) 30 ml PO DAILY PRN PRN Reason: Constipation Melatonin (Melatonin 3 Mg Tablet) 3 mg PO BEDTIME [facility] Last Admin: 03/26/24 20:37 Dose: 3 mg Nicotine (Nicotine 21 Mg Patch.Td24) 21 mg TRANSDERMA DAILY PRN PRN Reason: nicotine cravings Nicotine Polacrilex (Nicotine Polacrilex 2 Mg Gum) 4 mg BUCCAL Q2H PRN PRN Reason: Nicotine Cravings Oxycodone HCl (Oxycodone Hcl Immed Release 5 Mg Tablet) 5 mg PO DAILY PRN PRN Reason: severe pain Last Admin: 03/26/24 20:36 Dose: 5 mg Pantoprazole Sodium (Pantoprazole Sodium 20 Mg Tablet.Dr) 40 mg PO DAILY@0630 [facility] Last Admin: 03/27/24 05:14 Dose: 40 mg Quetiapine Fumarate (Quetiapine Fumarate 100 Mg Tablet) 100 mg PO BEDTIME [facility] Last Admin: 03/26/24 20:37 Dose: 100 mg Rifaximin (Rifaximin 550 Mg Tablet) 550 mg PO BID [facility] Last Admin: 03/27/24 08:58 Dose: 550 mg Sodium Chloride (0.9 % Sodium Chloride Flush 10 Ml Syringe) 5 ml IVFLUSH TID@0500,1300,2100 [facility] Last Admin: 03/27/24 05:16 Dose: 5 ml Thiamine HCl (Thiamine Hcl 100 Mg Tablet) 100 mg PO DAILY [facility] Last Admin: 03/27/24 08:58 Dose: 100 mg Trazodone HCl (Trazodone Hcl 50 Mg Tablet) 50 mg PO BEDTIME MRX1 PRN PRN Reason: Insomnia Last Admin: 03/20/24 20:36 Dose: 50 mg Allergies Allergies Allergy/AdvReac Type Severity Reaction Status Date / Time ketorolac [From Toradol] AdvReac Itching Verified 03/16/24 19:06 Assessment & Plan Assessment & Plan (1) MDD (major depressive disorder), recurrent severe, without psychosis: Status: Inactive Code(s): F33.2 - Major depressive disorder, recurrent severe without psychotic features (2) PTSD (post-traumatic stress disorder): Status: Inactive Code(s): F43.10 - Post-traumatic stress disorder, unspecified (3) MSSA bacteremia: Status: Acute Code(s): R78.81 - Bacteremia; B95.61 - Methicillin susceptible Staphylococcus aureus infection as the cause of diseases classified elsewhere (4) Alcoholic hepatitis: Status: Resolved Code(s): K70.10 - Alcoholic hepatitis without ascites (5) Decompensation of cirrhosis of liver: Status: Inactive Code(s): K72.90 - Hepatic failure, unspecified without coma; K74.60 - Unspecified cirrhosis of liver (6) Opioid dependence: Status: Acute Code(s): F11.20 - Opioid dependence, uncomplicated (7) COPD (chronic obstructive pulmonary disease): Status: Acute Code(s): J44.9 - Chronic obstructive pulmonary disease, unspecified (8) HIV infection: Status: Inactive Code(s): B20 - Human immunodeficiency virus [HIV] disease (9) Cocaine abuse: Status: Inactive Code(s): F14.10 - Cocaine abuse, uncomplicated (10) Alcohol use disorder: Status: Inactive Code(s): F10.90 - Alcohol use, unspecified, uncomplicated Plan HPI: Patient is a 59-year-old male with history of depression, PTSD, opiate/alcohol dependence, HIV, alcohol hepatitis, hep C, portal hypotension/ascites, COPD who was transferred from the medical floor to [facility] for SI, following treatment for MSSA bacteremia, currently on IV antibiotics. Patient was being treated for MSSA bacteremia for several weeks on the hospital floor during which time he also developed: 1.encephalopathy from elevated liver enzymes/ammonia (resolved now on lactulose and rifaximin) 2.small-bowel obstruction, resolved with conservative treatment 3.Aspiration pneumonia, resolving 4.DELMI, resolved 5.Recurrent ascites with paracentesis x2 While on medical floor, patient was accepted to a sniff but left AMA; he came back the next day was admitted again and reported SI to jump off a bridge. Patient says that is mind was not right to tolerate going to a sniff so he left AMA, quickly finding himself depressed and walked over to a bridge, thinking of jumping; he says he saw the face of his sister who said come join me... Patient however self presented to the hospital, not wanting to and citing several protective factors including seeing certain family members grow up. Currently not suicidal Hospital course: 03/22 Patient reports that he is overall okay; no SI. Tired but pushing himself to get up and move around. agrees to remain at [facility] given longevity there and strong rapport with providers there. -initially going to go to SNF for physical therapy in addition to PICC line/antibiotics. Reached out to physical therapy who will re-evaluate patient next week. Of note patient left the hospital AMA and was walking around on his own quite some distance before he decided to return to the hospital. PLAN: CV Q 15 minute checks Bictegravir/Emtricitabine/Tenofovir (Bictegrav/Emtricit/Tenofov Ala Tablet) 1 tab PO DAILY [facility] Buprenorphine/Naloxone (Buprenorphine/Naloxone 8/2 Mg Film) 1 film SUBLINGUAL TID [facility] Bupropion HCl (Bupropion Hcl Xl 150 Mg Tab.Er.24h) 150 mg PO BID@0900,1500 [facility] Buspirone HCl (Buspirone Hcl 10 Mg Tablet) 10 mg PO BID [facility] Buspirone HCl (Buspirone Hcl 5 Mg Tablet) 15 mg PO BID [facility] Clopidogrel Bisulfate (Clopidogrel Bisulfate 75 Mg Tablet) 75 mg PO DAILY [facility] Empagliflozin (Empagliflozin 10 Mg Tablet) 10 mg PO DAILY [facility] Fluticasone/Vilanterol (Fluticasone/Vilanterol 100/25 Blst.W.Dev) 1 puff INHALE DAILY [facility] Folic Acid 1 mg PO DAILY [facility] Cefazolin Sodium/Dextrose (Ancef) 2 gm in 50 mls @ 100 mls/hr IV Q8H [facility] Lactulose (Lactulose 20 Gm/30 Ml Solution) 20 gm PO TID [facility] Melatonin (Melatonin 3 Mg Tablet) 6 mg PO BEDTIME PRN Ondansetron HCl Pantoprazole Sodium (Pantoprazole Sodium 20 Mg Tablet.) 40 mg PO DAILY@0630 [facility] Rifaximin (Rifaximin 550 Mg Tablet) 550 mg PO BID [facility] Sodium Chloride (0.9 % Sodium Chloride Flush 3 Ml Syringe) 3 ml IVFLUSH QSHIFT [facility] Thiamine HCl (Thiamine Hcl 100 Mg Tablet) 100 mg PO DAILY [facility] Gabapentin 100 mg t.i.d. Oxycodone HCl 5 mg PO daily prn Quetiapine Fumarate 50 mg PO BEDTIME [facility] Furosemide 20 mg daily Insulin sliding scale At discharge, will need to follow-up appointments for: Infectious disease GI Psychiatry 1. Seroquel was been increased up to 100 mg p.o. q.h.s. to target mood lability. At this point we are not planning to increased anymore until his medical condition improves. 2. We will assess for the possibility of care home facility subacute rehab Reason for continued inpatient stay Substantial Risk for: inability to function, rapid decompensation and med/psych decompensation Time Spent With Patient Time: Total time managing care of this patient today __20__ minutes.
[2024-03-27] MEDS: oxyCODONE HCl Immed Release 5 MG TABLET PO (14:07)
[2024-03-27 16:06] LABS: Glucose, Whole Blood 118 mg/dL (60-115)
[2024-03-27 20:00] VITALS: BP 116/66; PULSE 80; RESP 17; TEMP 36.3; O2SAT 92
[2024-03-27 20:34] LABS: Glucose, Whole Blood 106 mg/dL (60-115)
[2024-03-27] MEDS: QUEtiapine Fumarate 100 MG TABLET PO (22:24)
[2024-03-27] MEDS: traZODone HCL 50 MG TABLET PO (22:25)
[2024-03-27] MEDS: Melatonin 3 MG TABLET PO (22:26)
[2024-03-28] MEDS: ceFAZolin Sodium/Dextrose,Iso 2 GM/50 ML PIGGYBACK IV ×3 (05:00→21:40)
[2024-03-28] MEDS: Pantoprazole Sodium 20 MG TABLET.DR 40 MG PO (05:41)
[2024-03-28 06:45] LABS: Glucose, Whole Blood 125 mg/dL (60-115)
[2024-03-28 07:00] VITALS: BMI 24.2
[2024-03-28 08:26] VITALS: BP 120/74; PULSE 92; RESP 18; TEMP 36.3; O2SAT 93
[2024-03-28] MEDS: Gabapentin 100 MG CAPSULE PO ×3 (08:27→19:53)
[2024-03-28] MEDS: Furosemide 20 MG TABLET PO (08:27)
[2024-03-28] MEDS: buPROPion HCl XL 150 MG TAB.ER.24H PO ×2 (08:27→15:06)
[2024-03-28] MEDS: rifAXIMin 550 MG TABLET PO ×2 (08:27→19:52)
[2024-03-28] MEDS: busPIRone HCl 10 MG TABLET PO ×2 (08:27→19:53)
[2024-03-28] MEDS: Bictegrav/Emtricit/Tenofov Ala TABLET 1 TAB PO (08:27)
[2024-03-28] MEDS: Thiamine HCL 100 MG TABLET PO (08:27)
[2024-03-28] MEDS: Folic Acid 1 MG TABLET PO (08:27)
[2024-03-28] MEDS: Empagliflozin 10 MG TABLET PO (08:28)
[2024-03-28] MEDS: Clopidogrel Bisulfate 75 MG TABLET PO (08:28)
[2024-03-28] MEDS: 0.9 % Sodium Chloride Flush 10 ML SYRINGE 5 ML IVFLUSH ×3 (08:32→21:39)
[2024-03-28] MEDS: busPIRone HCl 5 MG TABLET 15 MG PO ×2 (08:46→19:53)
[2024-03-28] MEDS: Lactulose 20 GM/30 ML SOLUTION PO ×2 (08:47→21:41)
[2024-03-28] MEDS: Buprenorphine/Naloxone 8/2 mg FILM 1 FILM SUBLINGUAL ×3 (08:47→21:00)
[2024-03-28] MEDS: Fluticasone/Vilanterol 100/25 BLST.W.DEV 1 PUFF INHALE (09:49)
[2024-03-28 11:12] LABS: Glucose, Whole Blood 143 mg/dL (60-115)
--- NOTE | 2024-03-28 11:35 | HO.PSYCHPN ---
Subjective Subjective Date of Service: 03/28/24 Reason For Visit: SI depression Interim History: The nursing staff reported the patient remains in his bed most of the time he was out for meals. reports back pain and discomfort for his ascites. On interview the patient reports that he is feeling tired most of the time. He denies active suicidal ideation. Medication Compliance: Yes Side effects from medications: No Attending Groups: No Review of Systems pain Mental Status Exam Mental Status Exam Narrative: Pt is alert and oriented; behavior is cooperative, friendly and calm; patient reports body pain and lower bck pain;dressed in casual attire with unkempt hair but adequate hygiene; mood is described as ok and affect congruent; eye contact appropriate; Speech is verbose, but normal rate, volume and prosody and not pressured; no psychomotor agitation/retardation present; thought process is goal directed, circumstantial; Thought content is on tx; otherwise pertinent to relevant topics and without any delusional content, paranoid ideations or grandiosity; denies any SI/HI. There is no evidence of perceptual disturbance. Patients insight and judgment fair Patient Appearance: Appropriate Patient Orientation: Person and Situation Level of Consciousness: Awake and Appropriate Patient Behavior: Guarded and Passive Mood Description: Withdrawn Affect Description: Constricted Patient Cognition Impaired: Yes Ability to Follow Directions: Good Speech Pattern: Clear Diagnostics Vital Signs (24Hr): Vital Signs - 24 hr 03/27/24 20:00 03/28/24 08:26 Temperature 97.4 F 97.4 F Pulse Rate 80 92 Respiratory Rate 17 18 Blood Pressure 116/66 120/74 Pulse Oximetry 92 93 Oxygen Delivery Method Room Air Room Air BMI result Body Mass Index 20.9 Labs 03/21/24 09:08 Labs: Laboratory Results - last 48 hr 03/26/24 03/26/24 03/27/24 16:23 20:06 06:20 POC Glucose 127 H 170 H 103 03/27/24 03/27/24 03/27/24 11:26 16:01 20:21 POC Glucose 146 H 118 H 106 03/28/24 03/28/24 06:22 11:06 POC Glucose 125 H 143 H Medications Medications Current Medications Al Hydroxide/Mg Hydroxide (Magnesium Hydrox/Alum Hydrox 30 Ml Oral.Susp) 30 ml PO Q6H PRN PRN Reason: Heartburn/Nausea Last Admin: 07/02/24 08:57 Dose: 30 ml Bictegravir/Emtricitabine/Tenofovir (Bictegrav/Emtricit/Tenofov Ala Tablet) 1 tab PO DAILY [facility] Last Admin: 03/28/24 08:27 Dose: 1 tab Buprenorphine/Naloxone (Buprenorphine/Naloxone 8/2 Mg Film) 1 film SUBLINGUAL TID [facility] Last Admin: 03/28/24 08:47 Dose: 1 film Bupropion HCl (Bupropion Hcl Xl 150 Mg Tab.Er.24h) 150 mg PO BID@0900,1500 [facility] Last Admin: 03/28/24 08:27 Dose: 150 mg Buspirone HCl (Buspirone Hcl 10 Mg Tablet) 10 mg PO BID [facility] Last Admin: 03/28/24 08:27 Dose: 10 mg Buspirone HCl (Buspirone Hcl 5 Mg Tablet) 15 mg PO BID [facility] Last Admin: 03/28/24 08:46 Dose: 15 mg Clopidogrel Bisulfate (Clopidogrel Bisulfate 75 Mg Tablet) 75 mg PO DAILY [facility] Last Admin: 03/28/24 08:28 Dose: 75 mg Empagliflozin (Empagliflozin 10 Mg Tablet) 10 mg PO DAILY [facility] Last Admin: 03/28/24 08:28 Dose: 10 mg Fluticasone/Vilanterol (Fluticasone/Vilanterol 100/25 Blst.W.Dev) 1 puff INHALE RDAILY [facility] Last Admin: 03/28/24 09:49 Dose: 1 puff Folic Acid (Folic Acid 1 Mg Tablet) 1 mg PO DAILY [facility] Last Admin: 03/28/24 08:27 Dose: 1 mg Furosemide (Furosemide 20 Mg Tablet) 20 mg PO DAILY [facility]; Protocol Last Admin: 03/28/24 08:27 Dose: 20 mg Gabapentin (Gabapentin 100 Mg Capsule) 100 mg PO TID [facility] Last Admin: 03/28/24 08:27 Dose: 100 mg Hydroxyzine HCl (Hydroxyzine Hcl 25 Mg Tablet) 25 mg PO Q6H PRN PRN Reason: Anxiety Last Admin: 03/21/24 22:07 Dose: 25 mg Cefazolin Sodium/Dextrose (Ancef) 2 gm in 50 mls @ 100 mls/hr IV Q8H [facility] Last Infusion: 03/28/24 05:44 Dose: Infused Insulin Human Lispro (Insulin Lispro 100 Unit/Ml 3 Ml Vial) 0 unit SUBCUT QIDACHS [facility]; Protocol Last Admin: 03/28/24 11:13 Dose: Not Given Lactulose (Lactulose 20 Gm/30 Ml Solution) 20 gm PO BID [facility] Last Admin: 03/28/24 08:47 Dose: 20 gm Magnesium Hydroxide (Milk Of Magnesia 30 Ml Oral.Susp) 30 ml PO DAILY PRN PRN Reason: Constipation Melatonin (Melatonin 3 Mg Tablet) 3 mg PO BEDTIME [facility] Last Admin: 03/27/24 22:26 Dose: 3 mg Nicotine (Nicotine 21 Mg Patch.Td24) 21 mg TRANSDERMA DAILY PRN PRN Reason: nicotine cravings Nicotine Polacrilex (Nicotine Polacrilex 2 Mg Gum) 4 mg BUCCAL Q2H PRN PRN Reason: Nicotine Cravings Oxycodone HCl (Oxycodone Hcl Immed Release 5 Mg Tablet) 5 mg PO DAILY PRN PRN Reason: severe pain Last Admin: 03/27/24 14:07 Dose: 5 mg Pantoprazole Sodium (Pantoprazole Sodium 20 Mg Tablet.Dr) 40 mg PO DAILY@0630 [facility] Last Admin: 03/28/24 05:41 Dose: 40 mg Quetiapine Fumarate (Quetiapine Fumarate 100 Mg Tablet) 100 mg PO BEDTIME [facility] Last Admin: 03/27/24 22:24 Dose: 100 mg Rifaximin (Rifaximin 550 Mg Tablet) 550 mg PO BID [facility] Last Admin: 03/28/24 08:27 Dose: 550 mg Sodium Chloride (0.9 % Sodium Chloride Flush 10 Ml Syringe) 5 ml IVFLUSH TID@0500,1300,2100 [facility] Last Admin: 03/28/24 08:32 Dose: 5 ml Thiamine HCl (Thiamine Hcl 100 Mg Tablet) 100 mg PO DAILY [facility] Last Admin: 03/28/24 08:27 Dose: 100 mg Trazodone HCl (Trazodone Hcl 50 Mg Tablet) 50 mg PO BEDTIME MRX1 PRN PRN Reason: Insomnia Last Admin: 03/27/24 22:25 Dose: 50 mg Allergies Allergies Allergy/AdvReac Type Severity Reaction Status Date / Time ketorolac [From Toradol] AdvReac Itching Verified 03/16/24 19:06 Assessment & Plan Assessment & Plan (1) MDD (major depressive disorder), recurrent severe, without psychosis: Status: Inactive Code(s): F33.2 - Major depressive disorder, recurrent severe without psychotic features (2) PTSD (post-traumatic stress disorder): Status: Inactive Code(s): F43.10 - Post-traumatic stress disorder, unspecified (3) MSSA bacteremia: Status: Acute Code(s): R78.81 - Bacteremia; B95.61 - Methicillin susceptible Staphylococcus aureus infection as the cause of diseases classified elsewhere (4) Alcoholic hepatitis: Status: Resolved Code(s): K70.10 - Alcoholic hepatitis without ascites (5) Decompensation of cirrhosis of liver: Status: Inactive Code(s): K72.90 - Hepatic failure, unspecified without coma; K74.60 - Unspecified cirrhosis of liver (6) Opioid dependence: Status: Inactive Code(s): F11.20 - Opioid dependence, uncomplicated (7) COPD (chronic obstructive pulmonary disease): Status: Inactive Code(s): J44.9 - Chronic obstructive pulmonary disease, unspecified (8) HIV infection: Status: Inactive Code(s): B20 - Human immunodeficiency virus [HIV] disease (9) Cocaine abuse: Status: Inactive Code(s): F14.10 - Cocaine abuse, uncomplicated (10) Alcohol use disorder: Status: Inactive Code(s): F10.90 - Alcohol use, unspecified, uncomplicated Plan HPI: Patient is a 59-year-old male with history of depression, PTSD, opiate/alcohol dependence, HIV, alcohol hepatitis, hep C, portal hypotension/ascites, COPD who was transferred from the medical floor to [facility] for SI, following treatment for MSSA bacteremia, currently on IV antibiotics. Patient was being treated for MSSA bacteremia for several weeks on the hospital floor during which time he also developed: 1.encephalopathy from elevated liver enzymes/ammonia (resolved now on lactulose and rifaximin) 2.small-bowel obstruction, resolved with conservative treatment 3.Aspiration pneumonia, resolving 4.DELMI, resolved 5.Recurrent ascites with paracentesis x2 While on medical floor, patient was accepted to a sniff but left AMA; he came back the next day was admitted again and reported SI to jump off a bridge. Patient says that is mind was not right to tolerate going to a sniff so he left AMA, quickly finding himself depressed and walked over to a bridge, thinking of jumping; he says he saw the face of his sister who said come join me... Patient however self presented to the hospital, not wanting to and citing several protective factors including seeing certain family members grow up. Currently not suicidal Hospital course: 03/22 Patient reports that he is overall okay; no SI. Tired but pushing himself to get up and move around. agrees to remain at [facility] given longevity there and strong rapport with providers there. -initially going to go to SNF for physical therapy in addition to PICC line/antibiotics. Reached out to physical therapy who will re-evaluate patient next week. Of note patient left the hospital AMA and was walking around on his own quite some distance before he decided to return to the hospital. PLAN: CV Q 15 minute checks Bictegravir/Emtricitabine/Tenofovir (Bictegrav/Emtricit/Tenofov Ala Tablet) 1 tab PO DAILY [facility] Buprenorphine/Naloxone (Buprenorphine/Naloxone 8/2 Mg Film) 1 film SUBLINGUAL TID [facility] Bupropion HCl (Bupropion Hcl Xl 150 Mg Tab.Er.24h) 150 mg PO BID@0900,1500 [facility] Buspirone HCl (Buspirone Hcl 10 Mg Tablet) 10 mg PO BID [facility] Buspirone HCl (Buspirone Hcl 5 Mg Tablet) 15 mg PO BID [facility] Clopidogrel Bisulfate (Clopidogrel Bisulfate 75 Mg Tablet) 75 mg PO DAILY [facility] Empagliflozin (Empagliflozin 10 Mg Tablet) 10 mg PO DAILY [facility] Fluticasone/Vilanterol (Fluticasone/Vilanterol 100/25 Blst.W.Dev) 1 puff INHALE DAILY [facility] Folic Acid 1 mg PO DAILY [facility] Cefazolin Sodium/Dextrose (Ancef) 2 gm in 50 mls @ 100 mls/hr IV Q8H [facility] Lactulose (Lactulose 20 Gm/30 Ml Solution) 20 gm PO TID [facility] Melatonin (Melatonin 3 Mg Tablet) 6 mg PO BEDTIME PRN Ondansetron HCl Pantoprazole Sodium (Pantoprazole Sodium 20 Mg Tablet.Dr) 40 mg PO DAILY@0630 [facility] Rifaximin (Rifaximin 550 Mg Tablet) 550 mg PO BID [facility] Sodium Chloride (0.9 % Sodium Chloride Flush 3 Ml Syringe) 3 ml IVFLUSH QSHIFT [facility] Thiamine HCl (Thiamine Hcl 100 Mg Tablet) 100 mg PO DAILY [facility] Gabapentin 100 mg t.i.d. Oxycodone HCl 5 mg PO daily prn Quetiapine Fumarate 50 mg PO BEDTIME [facility] Furosemide 20 mg daily Insulin sliding scale At discharge, will need to follow-up appointments for: Infectious disease GI Psychiatry 1. Seroquel was been increased up to 100 mg p.o. q.h.s. to target mood lability. At this point we are not planning to increased anymore until his medical condition improves. 2. We will assess for the possibility of [facility] facility subacute rehab 03/28/24 continue treatment plan hospitalist consult for pain and ascites consider consult with hospice if appropriate Reason for continued inpatient stay Substantial Risk for: inability to function, rapid decompensation and med/psych decompensation Time Spent With Patient Time: Total time managing care of this patient today ____ minutes.
[2024-03-28] MEDS: oxyCODONE HCl Immed Release 5 MG TABLET PO (14:36)
[2024-03-28 16:23] LABS: Glucose, Whole Blood 172 mg/dL (60-115)
[2024-03-28] MEDS: Insulin Lispro 100 UNIT/ML 3 ML VIAL SUBCUT (16:57)
--- NOTE | 2024-03-28 19:20 | PM.EVENT ---
Event Note Date of Service: 03/28/24 Event Note: Patient is a 59-year-old man with PMH significant for alcoholic cirrhosis, chronic hep C, opiate use disorder on Suboxone, and bipolar disorder who was admitted to [facility] for increasing depression with SI with plan to jump off a bridge. Hospitalist consult for abdominal distention with question of ascites. Patient was recently re-admitted to the hospitalist services from 03/16-03/20 for bacteremia after patient left AMA. Patient's last paracentesis was on 03/15 where he had 5.0 L of yellow fluid removed. Today patient complains of increasing abdominal distention, though denies any significant pain. Also complains of early satiety from abdominal discomfort. Reports he can only take a few bites of food before he feels full and bloated. Denies fever, chills. No nausea or vomiting. Complains about loose stool, though these are likely secondary to his lactulose treatment. Will order limited abdominal ultrasound to evaluate for drainable ascites. Little concern for SBP: Patient afebrile with stable vital signs and currently on cefazolin for bacteremia. Time Spent With Patient Time: Total time managing care of this patient today ____ minutes.
[2024-03-28] MEDS: QUEtiapine Fumarate 100 MG TABLET PO (19:54)
[2024-03-28] MEDS: traZODone HCL 50 MG TABLET PO (19:54)
[2024-03-28 20:00] VITALS: BP 134/84; PULSE 76; RESP 16; TEMP 36.8; O2SAT 93
[2024-03-28 21:20] LABS: Glucose, Whole Blood 130 mg/dL (60-115)
[2024-03-29] MEDS: 0.9 % Sodium Chloride Flush 10 ML SYRINGE 5 ML IVFLUSH ×3 (04:55→22:30)
[2024-03-29] MEDS: ceFAZolin Sodium/Dextrose,Iso 2 GM/50 ML PIGGYBACK IV ×3 (04:56→21:54)
[2024-03-29] MEDS: Pantoprazole Sodium 20 MG TABLET.DR 40 MG PO (05:30)
[2024-03-29 07:00] LABS: Glucose, Whole Blood 120 mg/dL (60-115)
[2024-03-29 08:24] VITALS: BP 100/64; PULSE 78; RESP 14; TEMP 36.1; O2SAT 94
[2024-03-29] MEDS: busPIRone HCl 5 MG TABLET 15 MG PO ×2 (09:52→20:03)
[2024-03-29] MEDS: rifAXIMin 550 MG TABLET PO ×2 (09:52→20:01)
[2024-03-29] MEDS: oxyCODONE HCl Immed Release 5 MG TABLET PO (09:53)
[2024-03-29] MEDS: Bictegrav/Emtricit/Tenofov Ala TABLET 1 TAB PO (09:54)
[2024-03-29] MEDS: Clopidogrel Bisulfate 75 MG TABLET PO (09:55)
[2024-03-29] MEDS: Empagliflozin 10 MG TABLET PO (09:55)
[2024-03-29] MEDS: Gabapentin 100 MG CAPSULE PO ×3 (09:56→20:02)
[2024-03-29] MEDS: busPIRone HCl 10 MG TABLET PO ×2 (09:56→20:04)
[2024-03-29] MEDS: Folic Acid 1 MG TABLET PO (09:56)
[2024-03-29] MEDS: buPROPion HCl XL 150 MG TAB.ER.24H PO ×2 (09:56→15:21)
[2024-03-29] MEDS: Furosemide 20 MG TABLET PO (09:57)
[2024-03-29] MEDS: Thiamine HCL 100 MG TABLET PO (09:57)
[2024-03-29] MEDS: Lactulose 20 GM/30 ML SOLUTION PO ×2 (09:58→20:05)
[2024-03-29] MEDS: Buprenorphine/Naloxone 8/2 mg FILM 1 FILM SUBLINGUAL ×3 (10:00→20:07)
[2024-03-29] MEDS: Fluticasone/Vilanterol 100/25 BLST.W.DEV 1 PUFF INHALE (10:28)
--- NOTE | 2024-03-29 13:47 | HO.PSYCHPN ---
Subjective Subjective Date of Service: 03/29/24 Reason For Visit: SI depression Interim History: just had 7.5L ascites removed. feeling much better, now has an appetite. no questions or requests for MD. per staff, no issues. Mental Status Exam Mental Status Exam Narrative: Pt is alert and oriented; behavior is cooperative, friendly and calm; dressed in casual attire with unkempt hair but adequate hygiene; mood is described as ok and affect congruent; eye contact appropriate; Speech is verbose, but normal rate, volume and prosody and not pressured; no psychomotor agitation/retardation present; thought process is goal directed, circumstantial; Thought content is on tx; otherwise pertinent to relevant topics and without any delusional content, paranoid ideations or grandiosity; denies any SI/HI. There is no evidence of perceptual disturbance. Patients insight and judgment fair Diagnostics Vital Signs (24Hr): Vital Signs - 24 hr 03/28/24 20:00 03/29/24 08:24 Temperature 98.3 F 97.0 F Pulse Rate 76 78 Respiratory Rate 16 14 Blood Pressure 134/84 100/64 Pulse Oximetry 93 94 Oxygen Delivery Method Room Air Room Air BMI result Body Mass Index 24.2 Labs 03/21/24 09:08 Labs: Laboratory Results - last 48 hr 03/27/24 03/27/24 03/28/24 16:01 20:21 06:22 POC Glucose 118 H 106 125 H 03/28/24 03/28/24 03/28/24 11:06 16:17 21:15 POC Glucose 143 H 172 H 130 H 03/29/24 06:32 POC Glucose 120 H Medications Medications Current Medications Al Hydroxide/Mg Hydroxide (Magnesium Hydrox/Alum Hydrox 30 Ml Oral.Susp) 30 ml PO Q6H PRN PRN Reason: Heartburn/Nausea Last Admin: 03/26/24 08:57 Dose: 30 ml Bictegravir/Emtricitabine/Tenofovir (Bictegrav/Emtricit/Tenofov Ala Tablet) 1 tab PO DAILY [facility] Last Admin: 03/29/24 09:54 Dose: 1 tab Buprenorphine/Naloxone (Buprenorphine/Naloxone 8/2 Mg Film) 1 film SUBLINGUAL TID [facility] Last Admin: 03/29/24 10:00 Dose: 1 film Bupropion HCl (Bupropion Hcl Xl 150 Mg Tab.Er.24h) 150 mg PO BID@0900,1500 [facility] Last Admin: 03/29/24 09:56 Dose: 150 mg Buspirone HCl (Buspirone Hcl 10 Mg Tablet) 10 mg PO BID [facility] Last Admin: 03/29/24 09:56 Dose: 10 mg Buspirone HCl (Buspirone Hcl 5 Mg Tablet) 15 mg PO BID [facility] Last Admin: 03/29/24 09:52 Dose: 15 mg Clopidogrel Bisulfate (Clopidogrel Bisulfate 75 Mg Tablet) 75 mg PO DAILY [facility] Last Admin: 03/29/24 09:55 Dose: 75 mg Empagliflozin (Empagliflozin 10 Mg Tablet) 10 mg PO DAILY [facility] Last Admin: 03/29/24 09:55 Dose: 10 mg Fluticasone/Vilanterol (Fluticasone/Vilanterol 100/25 Blst.W.Dev) 1 puff INHALE RDAILY [facility] Last Admin: 03/29/24 10:28 Dose: 1 puff Folic Acid (Folic Acid 1 Mg Tablet) 1 mg PO DAILY [facility] Last Admin: 03/29/24 09:56 Dose: 1 mg Furosemide (Furosemide 20 Mg Tablet) 20 mg PO DAILY [facility]; Protocol Last Admin: 03/29/24 09:57 Dose: 20 mg Gabapentin (Gabapentin 100 Mg Capsule) 100 mg PO TID [facility] Last Admin: 03/29/24 09:56 Dose: 100 mg Hydroxyzine HCl (Hydroxyzine Hcl 25 Mg Tablet) 25 mg PO Q6H PRN PRN Reason: Anxiety Last Admin: 03/21/24 22:07 Dose: 25 mg Cefazolin Sodium/Dextrose (Ancef) 2 gm in 50 mls @ 100 mls/hr IV Q8H [facility] Last Infusion: 03/29/24 05:30 Dose: Infused Insulin Human Lispro (Insulin Lispro 100 Unit/Ml 3 Ml Vial) 0 unit SUBCUT QIDACHS [facility]; Protocol Last Admin: 03/29/24 07:58 Dose: Not Given Lactulose (Lactulose 20 Gm/30 Ml Solution) 20 gm PO BID [facility] Last Admin: 03/29/24 09:58 Dose: 20 gm Magnesium Hydroxide (Milk Of Magnesia 30 Ml Oral.Susp) 30 ml PO DAILY PRN PRN Reason: Constipation Melatonin (Melatonin 3 Mg Tablet) 3 mg PO BEDTIME [facility] Last Admin: 03/28/24 21:31 Dose: Not Given Nicotine (Nicotine 21 Mg Patch.Td24) 21 mg TRANSDERMA DAILY PRN PRN Reason: nicotine cravings Nicotine Polacrilex (Nicotine Polacrilex 2 Mg Gum) 4 mg BUCCAL Q2H PRN PRN Reason: Nicotine Cravings Oxycodone HCl (Oxycodone Hcl Immed Release 5 Mg Tablet) 5 mg PO DAILY PRN PRN Reason: severe pain Last Admin: 03/29/24 09:53 Dose: 5 mg Pantoprazole Sodium (Pantoprazole Sodium 20 Mg Tablet.Dr) 40 mg PO DAILY@0630 [facility] Last Admin: 03/29/24 05:30 Dose: 40 mg Quetiapine Fumarate (Quetiapine Fumarate 100 Mg Tablet) 100 mg PO BEDTIME [facility] Last Admin: 03/28/24 19:54 Dose: 100 mg Rifaximin (Rifaximin 550 Mg Tablet) 550 mg PO BID [facility] Last Admin: 03/29/24 09:52 Dose: 550 mg Sodium Chloride (0.9 % Sodium Chloride Flush 10 Ml Syringe) 5 ml IVFLUSH TID@0500,1300,2100 [facility] Last Admin: 03/29/24 04:55 Dose: 5 ml Thiamine HCl (Thiamine Hcl 100 Mg Tablet) 100 mg PO DAILY [facility] Last Admin: 03/29/24 09:57 Dose: 100 mg Trazodone HCl (Trazodone Hcl 50 Mg Tablet) 50 mg PO BEDTIME MRX1 PRN PRN Reason: Insomnia Last Admin: 03/28/24 19:54 Dose: 50 mg Allergies Allergies Allergy/AdvReac Type Severity Reaction Status Date / Time ketorolac [From Toradol] AdvReac Itching Verified 03/16/24 19:06 Assessment & Plan Assessment & Plan (1) MDD (major depressive disorder), recurrent severe, without psychosis: Status: Inactive Code(s): F33.2 - Major depressive disorder, recurrent severe without psychotic features (2) PTSD (post-traumatic stress disorder): Status: Inactive Code(s): F43.10 - Post-traumatic stress disorder, unspecified (3) MSSA bacteremia: Status: Acute Code(s): R78.81 - Bacteremia; B95.61 - Methicillin susceptible Staphylococcus aureus infection as the cause of diseases classified elsewhere (4) Alcoholic hepatitis: Status: Resolved Code(s): K70.10 - Alcoholic hepatitis without ascites (5) Decompensation of cirrhosis of liver: Status: Inactive Code(s): K72.90 - Hepatic failure, unspecified without coma; K74.60 - Unspecified cirrhosis of liver (6) Opioid dependence: Status: Inactive Code(s): F11.20 - Opioid dependence, uncomplicated (7) COPD (chronic obstructive pulmonary disease): Status: Inactive Code(s): J44.9 - Chronic obstructive pulmonary disease, unspecified (8) HIV infection: Status: Inactive Code(s): B20 - Human immunodeficiency virus [HIV] disease (9) Cocaine abuse: Status: Inactive Code(s): F14.10 - Cocaine abuse, uncomplicated (10) Alcohol use disorder: Status: Inactive Code(s): F10.90 - Alcohol use, unspecified, uncomplicated Plan HPI: Patient is a 59-year-old male with history of depression, PTSD, opiate/alcohol dependence, HIV, alcohol hepatitis, hep C, portal hypotension/ascites, COPD who was transferred from the medical floor to [facility] for SI, following treatment for MSSA bacteremia, currently on IV antibiotics. Patient was being treated for MSSA bacteremia for several weeks on the hospital floor during which time he also developed: 1.encephalopathy from elevated liver enzymes/ammonia (resolved now on lactulose and rifaximin) 2.small-bowel obstruction, resolved with conservative treatment 3.Aspiration pneumonia, resolving 4.DELMI, resolved 5.Recurrent ascites with paracentesis x2 While on medical floor, patient was accepted to a sniff but left AMA; he came back the next day was admitted again and reported SI to jump off a bridge. Patient says that is mind was not right to tolerate going to a sniff so he left AMA, quickly finding himself depressed and walked over to a bridge, thinking of jumping; he says he saw the face of his sister who said come join me... Patient however self presented to the hospital, not wanting to and citing several protective factors including seeing certain family members grow up. Currently not suicidal Hospital course: 03/22 Patient reports that he is overall okay; no SI. Tired but pushing himself to get up and move around. agrees to remain at [facility] given longevity there and strong rapport with providers there. -initially going to go to SNF for physical therapy in addition to PICC line/antibiotics. Reached out to physical therapy who will re-evaluate patient next week. Of note patient left the hospital AMA and was walking around on his own quite some distance before he decided to return to the hospital. PLAN: CV Q 15 minute checks Bictegravir/Emtricitabine/Tenofovir (Bictegrav/Emtricit/Tenofov Ala Tablet) 1 tab PO DAILY [facility] Buprenorphine/Naloxone (Buprenorphine/Naloxone 8/2 Mg Film) 1 film SUBLINGUAL TID [facility] Bupropion HCl (Bupropion Hcl Xl 150 Mg Tab.Er.24h) 150 mg PO BID@0900,1500 [facility] Buspirone HCl (Buspirone Hcl 10 Mg Tablet) 10 mg PO BID [facility] Buspirone HCl (Buspirone Hcl 5 Mg Tablet) 15 mg PO BID [facility] Clopidogrel Bisulfate (Clopidogrel Bisulfate 75 Mg Tablet) 75 mg PO DAILY [facility] Empagliflozin (Empagliflozin 10 Mg Tablet) 10 mg PO DAILY [facility] Fluticasone/Vilanterol (Fluticasone/Vilanterol 100/25 Blst.W.Dev) 1 puff INHALE DAILY [facility] Folic Acid 1 mg PO DAILY [facility] Cefazolin Sodium/Dextrose (Ancef) 2 gm in 50 mls @ 100 mls/hr IV Q8H [facility] Lactulose (Lactulose 20 Gm/30 Ml Solution) 20 gm PO TID [facility] Melatonin (Melatonin 3 Mg Tablet) 6 mg PO BEDTIME PRN Ondansetron HCl Pantoprazole Sodium (Pantoprazole Sodium 20 Mg Tablet.Dr) 40 mg PO DAILY@0630 [facility] Rifaximin (Rifaximin 550 Mg Tablet) 550 mg PO BID [facility] Sodium Chloride (0.9 % Sodium Chloride Flush 3 Ml Syringe) 3 ml IVFLUSH QSHIFT [facility] Thiamine HCl (Thiamine Hcl 100 Mg Tablet) 100 mg PO DAILY [facility] Gabapentin 100 mg t.i.d. Oxycodone HCl 5 mg PO daily prn Quetiapine Fumarate 50 mg PO BEDTIME [facility] Furosemide 20 mg daily Insulin sliding scale At discharge, will need to follow-up appointments for: Infectious disease GI Psychiatry 1. Seroquel was been increased up to 100 mg p.o. q.h.s. to target mood lability. At this point we are not planning to increased anymore until his medical condition improves. 2. We will assess for the possibility of halfway facility subacute rehab 03/28/24 continue treatment plan hospitalist consult for pain and ascites consider consult with hospice if appropriate 03/29: calm, cooperative. 7.5L tapped from ascites. feeling much better. continue current mgmt. Reason for continued inpatient stay Substantial Risk for: harm to self, inability to function and med/psych decompensation Time Spent With Patient Time: Total time managing care of this patient today __25__ minutes.
[2024-03-29 20:00] VITALS: BP 102/59; PULSE 70; RESP 16; TEMP 36.4; O2SAT 96
[2024-03-29] MEDS: Melatonin 3 MG TABLET PO (20:03)
[2024-03-29] MEDS: QUEtiapine Fumarate 100 MG TABLET PO (20:05)
[2024-03-29 21:05] LABS: Glucose, Whole Blood 126 mg/dL (60-115)
[2024-03-30] MEDS: ceFAZolin Sodium/Dextrose,Iso 2 GM/50 ML PIGGYBACK IV (04:53)
[2024-03-30] MEDS: 0.9 % Sodium Chloride Flush 10 ML SYRINGE 5 ML IVFLUSH ×3 (04:55→20:33)
[2024-03-30] MEDS: Pantoprazole Sodium 20 MG TABLET.DR 40 MG PO (05:15)
[2024-03-30 06:54] LABS: Glucose, Whole Blood 116 mg/dL (60-115)
[2024-03-30 08:00] VITALS: BP 121/71; PULSE 77; RESP 17; TEMP 36.3; O2SAT 96
[2024-03-30] MEDS: Fluticasone/Vilanterol 100/25 BLST.W.DEV 1 PUFF INHALE (09:05)
[2024-03-30] MEDS: Thiamine HCL 100 MG TABLET PO (09:06)
[2024-03-30] MEDS: Empagliflozin 10 MG TABLET PO (09:06)
[2024-03-30] MEDS: Clopidogrel Bisulfate 75 MG TABLET PO (09:06)
[2024-03-30] MEDS: Folic Acid 1 MG TABLET PO (09:06)
[2024-03-30] MEDS: busPIRone HCl 10 MG TABLET PO ×2 (09:06→20:39)
[2024-03-30] MEDS: busPIRone HCl 5 MG TABLET 15 MG PO ×2 (09:06→20:39)
[2024-03-30] MEDS: Buprenorphine/Naloxone 8/2 mg FILM 1 FILM SUBLINGUAL ×3 (09:06→20:36)
[2024-03-30] MEDS: Furosemide 20 MG TABLET PO (09:06)
[2024-03-30] MEDS: buPROPion HCl XL 150 MG TAB.ER.24H PO ×2 (09:06→15:49)
[2024-03-30] MEDS: Bictegrav/Emtricit/Tenofov Ala TABLET 1 TAB PO (09:06)
[2024-03-30] MEDS: Gabapentin 100 MG CAPSULE PO ×3 (09:06→20:39)
[2024-03-30] MEDS: rifAXIMin 550 MG TABLET PO ×2 (09:06→20:40)
[2024-03-30] MEDS: Lactulose 20 GM/30 ML SOLUTION PO ×2 (09:09→20:41)
[2024-03-30] MEDS: oxyCODONE HCl Immed Release 5 MG TABLET PO ×2 (09:55→20:40)
--- NOTE | 2024-03-30 10:36 | HO.PSYCHPN ---
Subjective Subjective Date of Service: 03/30/24 Reason For Visit: SI depression Interim History: c/o abd pain, asking for increase in frequency of oxycodone. otherwise no complaints. feeling much better since paracentesis yesterday, ate breakfast today. per staff, no change in presentation. feeling better since tap. ate some bfast. no complaints. Mental Status Exam Mental Status Exam Narrative: Pt is alert and oriented; behavior is cooperative, friendly and calm; dressed in casual attire with unkempt hair but adequate hygiene; mood is described as ok and affect congruent; eye contact appropriate; Speech is verbose, but normal rate, volume and prosody and not pressured; no psychomotor agitation/retardation present; thought process is goal directed, circumstantial; Thought content is on tx; otherwise pertinent to relevant topics and without any delusional content, paranoid ideations or grandiosity; denies any SI/HI. There is no evidence of perceptual disturbance. Patients insight and judgment fair Diagnostics Vital Signs (24Hr): Vital Signs - 24 hr 03/29/24 20:00 03/30/24 08:00 Temperature 97.6 F 97.3 F Pulse Rate 70 77 Respiratory Rate 16 17 Blood Pressure 102/59 L 121/71 Pulse Oximetry 96 96 Oxygen Delivery Method Room Air Room Air BMI result Body Mass Index 24.2 Labs 03/21/24 09:08 Labs: Laboratory Results - last 48 hr 03/28/24 03/28/24 03/28/24 11:06 16:17 21:15 POC Glucose 143 H 172 H 130 H 03/29/24 03/29/24 03/30/24 06:32 19:57 06:35 POC Glucose 120 H 126 H 116 H Imaging Radiology Impressions: ITS Impressions Abdomen Ultrasound 03/29/24 09:20 IMPRESSION: Moderate ascites. Medications Medications Current Medications Al Hydroxide/Mg Hydroxide (Magnesium Hydrox/Alum Hydrox 30 Ml Oral.Susp) 30 ml PO Q6H PRN PRN Reason: Heartburn/Nausea Last Admin: 03/26/24 08:57 Dose: 30 ml Bictegravir/Emtricitabine/Tenofovir (Bictegrav/Emtricit/Tenofov Ala Tablet) 1 tab PO DAILY [facility] Last Admin: 03/30/24 09:06 Dose: 1 tab Buprenorphine/Naloxone (Buprenorphine/Naloxone 8/2 Mg Film) 1 film SUBLINGUAL TID [facility] Last Admin: 03/30/24 09:06 Dose: 1 film Bupropion HCl (Bupropion Hcl Xl 150 Mg Tab.Er.24h) 150 mg PO BID@0900,1500 [facility] Last Admin: 03/30/24 09:06 Dose: 150 mg Buspirone HCl (Buspirone Hcl 10 Mg Tablet) 10 mg PO BID [facility] Last Admin: 03/30/24 09:06 Dose: 10 mg Buspirone HCl (Buspirone Hcl 5 Mg Tablet) 15 mg PO BID [facility] Last Admin: 03/30/24 09:06 Dose: 15 mg Clopidogrel Bisulfate (Clopidogrel Bisulfate 75 Mg Tablet) 75 mg PO DAILY [facility] Last Admin: 03/30/24 09:06 Dose: 75 mg Empagliflozin (Empagliflozin 10 Mg Tablet) 10 mg PO DAILY [facility] Last Admin: 03/30/24 09:06 Dose: 10 mg Fluticasone/Vilanterol (Fluticasone/Vilanterol 100/25 Blst.W.Dev) 1 puff INHALE RDAILY [facility] Last Admin: 03/30/24 09:05 Dose: 1 puff Folic Acid (Folic Acid 1 Mg Tablet) 1 mg PO DAILY [facility] Last Admin: 03/30/24 09:06 Dose: 1 mg Furosemide (Furosemide 20 Mg Tablet) 20 mg PO DAILY [facility]; Protocol Last Admin: 03/30/24 09:06 Dose: 20 mg Gabapentin (Gabapentin 100 Mg Capsule) 100 mg PO TID [facility] Last Admin: 03/30/24 09:06 Dose: 100 mg Hydroxyzine HCl (Hydroxyzine Hcl 25 Mg Tablet) 25 mg PO Q6H PRN PRN Reason: Anxiety Last Admin: 03/21/24 22:07 Dose: 25 mg Cefazolin Sodium/Dextrose (Ancef) 2 gm in 50 mls @ 100 mls/hr IV Q8H [facility] Last Infusion: 03/30/24 05:30 Dose: Infused Insulin Human Lispro (Insulin Lispro 100 Unit/Ml 3 Ml Vial) 0 unit SUBCUT BID [facility]; Protocol Last Admin: 03/30/24 09:08 Dose: Not Given Lactulose (Lactulose 20 Gm/30 Ml Solution) 20 gm PO BID [facility] Last Admin: 03/30/24 09:09 Dose: 20 gm Magnesium Hydroxide (Milk Of Magnesia 30 Ml Oral.Susp) 30 ml PO DAILY PRN PRN Reason: Constipation Melatonin (Melatonin 3 Mg Tablet) 3 mg PO BEDTIME [facility] Last Admin: 03/29/24 20:03 Dose: 3 mg Nicotine (Nicotine 21 Mg Patch.Td24) 21 mg TRANSDERMA DAILY PRN PRN Reason: nicotine cravings Nicotine Polacrilex (Nicotine Polacrilex 2 Mg Gum) 4 mg BUCCAL Q2H PRN PRN Reason: Nicotine Cravings Oxycodone HCl (Oxycodone Hcl Immed Release 5 Mg Tablet) 5 mg PO BID PRN PRN Reason: severe pain Pantoprazole Sodium (Pantoprazole Sodium 20 Mg Tablet.Dr) 40 mg PO DAILY@0630 [facility] Last Admin: 03/30/24 05:15 Dose: 40 mg Quetiapine Fumarate (Quetiapine Fumarate 100 Mg Tablet) 100 mg PO BEDTIME [facility] Last Admin: 03/29/24 20:05 Dose: 100 mg Rifaximin (Rifaximin 550 Mg Tablet) 550 mg PO BID [facility] Last Admin: 03/30/24 09:06 Dose: 550 mg Sodium Chloride (0.9 % Sodium Chloride Flush 10 Ml Syringe) 5 ml IVFLUSH TID@0500,1300,2100 [facility] Last Admin: 03/30/24 04:55 Dose: 5 ml Thiamine HCl (Thiamine Hcl 100 Mg Tablet) 100 mg PO DAILY [facility] Last Admin: 03/30/24 09:06 Dose: 100 mg Trazodone HCl (Trazodone Hcl 50 Mg Tablet) 50 mg PO BEDTIME MRX1 PRN PRN Reason: Insomnia Last Admin: 03/28/24 19:54 Dose: 50 mg Allergies Allergies Allergy/AdvReac Type Severity Reaction Status Date / Time ketorolac [From Toradol] AdvReac Itching Verified 03/16/24 19:06 Assessment & Plan Assessment & Plan (1) MDD (major depressive disorder), recurrent severe, without psychosis: Status: Inactive Code(s): F33.2 - Major depressive disorder, recurrent severe without psychotic features (2) PTSD (post-traumatic stress disorder): Status: Inactive Code(s): F43.10 - Post-traumatic stress disorder, unspecified (3) MSSA bacteremia: Status: Acute Code(s): R78.81 - Bacteremia; B95.61 - Methicillin susceptible Staphylococcus aureus infection as the cause of diseases classified elsewhere (4) Alcoholic hepatitis: Status: Resolved Code(s): K70.10 - Alcoholic hepatitis without ascites (5) Decompensation of cirrhosis of liver: Status: Inactive Code(s): K72.90 - Hepatic failure, unspecified without coma; K74.60 - Unspecified cirrhosis of liver (6) Opioid dependence: Status: Inactive Code(s): F11.20 - Opioid dependence, uncomplicated (7) COPD (chronic obstructive pulmonary disease): Status: Inactive Code(s): J44.9 - Chronic obstructive pulmonary disease, unspecified (8) HIV infection: Status: Inactive Code(s): B20 - Human immunodeficiency virus [HIV] disease (9) Cocaine abuse: Status: Inactive Code(s): F14.10 - Cocaine abuse, uncomplicated (10) Alcohol use disorder: Status: Inactive Code(s): F10.90 - Alcohol use, unspecified, uncomplicated Plan HPI: Patient is a 59-year-old male with history of depression, PTSD, opiate/alcohol dependence, HIV, alcohol hepatitis, hep C, portal hypotension/ascites, COPD who was transferred from the medical floor to [facility] for SI, following treatment for MSSA bacteremia, currently on IV antibiotics. Patient was being treated for MSSA bacteremia for several weeks on the hospital floor during which time he also developed: 1.encephalopathy from elevated liver enzymes/ammonia (resolved now on lactulose and rifaximin) 2.small-bowel obstruction, resolved with conservative treatment 3.Aspiration pneumonia, resolving 4.DELMI, resolved 5.Recurrent ascites with paracentesis x2 While on medical floor, patient was accepted to a sniff but left AMA; he came back the next day was admitted again and reported SI to jump off a bridge. Patient says that is mind was not right to tolerate going to a sniff so he left AMA, quickly finding himself depressed and walked over to a bridge, thinking of jumping; he says he saw the face of his sister who said come join me... Patient however self presented to the hospital, not wanting to and citing several protective factors including seeing certain family members grow up. Currently not suicidal Hospital course: 03/22 Patient reports that he is overall okay; no SI. Tired but pushing himself to get up and move around. agrees to remain at [facility] given longevity there and strong rapport with providers there. -initially going to go to SNF for physical therapy in addition to PICC line/antibiotics. Reached out to physical therapy who will re-evaluate patient next week. Of note patient left the hospital AMA and was walking around on his own quite some distance before he decided to return to the hospital. PLAN: CV Q 15 minute checks Bictegravir/Emtricitabine/Tenofovir (Bictegrav/Emtricit/Tenofov Ala Tablet) 1 tab PO DAILY [facility] Buprenorphine/Naloxone (Buprenorphine/Naloxone 8/2 Mg Film) 1 film SUBLINGUAL TID [facility] Bupropion HCl (Bupropion Hcl Xl 150 Mg Tab.Er.24h) 150 mg PO BID@0900,1500 [facility] Buspirone HCl (Buspirone Hcl 10 Mg Tablet) 10 mg PO BID [facility] Buspirone HCl (Buspirone Hcl 5 Mg Tablet) 15 mg PO BID [facility] Clopidogrel Bisulfate (Clopidogrel Bisulfate 75 Mg Tablet) 75 mg PO DAILY [facility] Empagliflozin (Empagliflozin 10 Mg Tablet) 10 mg PO DAILY [facility] Fluticasone/Vilanterol (Fluticasone/Vilanterol 100/25 Blst.W.Dev) 1 puff INHALE DAILY [facility] Folic Acid 1 mg PO DAILY [facility] Cefazolin Sodium/Dextrose (Ancef) 2 gm in 50 mls @ 100 mls/hr IV Q8H [facility] Lactulose (Lactulose 20 Gm/30 Ml Solution) 20 gm PO TID [facility] Melatonin (Melatonin 3 Mg Tablet) 6 mg PO BEDTIME PRN Ondansetron HCl Pantoprazole Sodium (Pantoprazole Sodium 20 Mg Tablet.Dr) 40 mg PO DAILY@0630 [facility] Rifaximin (Rifaximin 550 Mg Tablet) 550 mg PO BID [facility] Sodium Chloride (0.9 % Sodium Chloride Flush 3 Ml Syringe) 3 ml IVFLUSH QSHIFT [facility] Thiamine HCl (Thiamine Hcl 100 Mg Tablet) 100 mg PO DAILY [facility] Gabapentin 100 mg t.i.d. Oxycodone HCl 5 mg PO daily prn Quetiapine Fumarate 50 mg PO BEDTIME [facility] Furosemide 20 mg daily Insulin sliding scale At discharge, will need to follow-up appointments for: Infectious disease GI Psychiatry 1. Seroquel was been increased up to 100 mg p.o. q.h.s. to target mood lability. At this point we are not planning to increased anymore until his medical condition improves. 2. We will assess for the possibility of half-way facility subacute rehab 03/28/24 continue treatment plan hospitalist consult for pain and ascites consider consult with hospice if appropriate 03/29: calm, cooperative. 7.5L tapped from ascites. feeling much better. continue current mgmt. 03/30: remains improved physically post-tap. pain remains. increase oxycodone PRN dosing from 5 mg once daily to twice daily. otherwise continue current mgmt. Reason for continued inpatient stay Substantial Risk for: inability to function, rapid decompensation and med/psych decompensation Time Spent With Patient Time: Total time managing care of this patient today ____ minutes.
[2024-03-30 20:00] VITALS: BP 138/66; PULSE 76; RESP 18; TEMP 36.1; O2SAT 94
[2024-03-30] MEDS: QUEtiapine Fumarate 100 MG TABLET PO (20:39)
[2024-03-30] MEDS: Melatonin 3 MG TABLET PO (20:39)
[2024-03-30 20:40] LABS: Glucose, Whole Blood 132 mg/dL (60-115)
[2024-03-31] MEDS: 0.9 % Sodium Chloride Flush 10 ML SYRINGE 5 ML IVFLUSH ×3 (05:35→20:11)
[2024-03-31] MEDS: Pantoprazole Sodium 20 MG TABLET.DR 40 MG PO (05:36)
[2024-03-31 06:43] LABS: Glucose, Whole Blood 96 mg/dL (60-115)
[2024-03-31 09:28] VITALS: BP 114/57; PULSE 74; RESP 18; TEMP 36.1; O2SAT 93
[2024-03-31] MEDS: Fluticasone/Vilanterol 100/25 BLST.W.DEV 1 PUFF INHALE (09:31)
[2024-03-31] MEDS: Folic Acid 1 MG TABLET PO (09:31)
[2024-03-31] MEDS: Lactulose 20 GM/30 ML SOLUTION PO ×2 (09:31→20:09)
[2024-03-31] MEDS: Buprenorphine/Naloxone 8/2 mg FILM 1 FILM SUBLINGUAL ×3 (09:31→20:09)
[2024-03-31] MEDS: Clopidogrel Bisulfate 75 MG TABLET PO (09:32)
[2024-03-31] MEDS: Furosemide 20 MG TABLET PO (09:32)
[2024-03-31] MEDS: Gabapentin 100 MG CAPSULE PO ×3 (09:32→20:09)
[2024-03-31] MEDS: Thiamine HCL 100 MG TABLET PO (09:32)
[2024-03-31] MEDS: buPROPion HCl XL 150 MG TAB.ER.24H PO ×2 (09:32→14:48)
[2024-03-31] MEDS: Bictegrav/Emtricit/Tenofov Ala TABLET 1 TAB PO (09:32)
[2024-03-31] MEDS: busPIRone HCl 5 MG TABLET 15 MG PO ×2 (09:32→20:09)
[2024-03-31] MEDS: busPIRone HCl 10 MG TABLET PO ×2 (09:32→20:09)
[2024-03-31] MEDS: Empagliflozin 10 MG TABLET PO (09:32)
--- NOTE | 2024-03-31 11:48 | HO.PSYCHPN ---
Subjective Subjective Date of Service: 03/31/24 Reason For Visit: SI depression Interim History: calm, cooperative, pleasant. continues to feel improved since tap yesterday. per staff, no issues. Mental Status Exam Mental Status Exam Narrative: Pt is alert and oriented; behavior is cooperative, friendly and calm; dressed in casual attire with unkempt hair but adequate hygiene; mood is described as ok and affect congruent; eye contact appropriate; Speech is verbose, but normal rate, volume and prosody and not pressured; no psychomotor agitation/retardation present; thought process is goal directed, circumstantial; Thought content is on tx; otherwise pertinent to relevant topics and without any delusional content, paranoid ideations or grandiosity; denies any SI/HI. There is no evidence of perceptual disturbance. Patients insight and judgment fair Diagnostics Vital Signs (24Hr): Vital Signs - 24 hr 03/30/24 20:00 03/31/24 09:28 Temperature 97 F 97.0 F Pulse Rate 76 74 Respiratory Rate 18 18 Blood Pressure 138/66 114/57 L Pulse Oximetry 94 93 Oxygen Delivery Method Room Air Room Air BMI result Body Mass Index 24.2 Labs 03/21/24 09:08 Labs: Laboratory Results - last 48 hr 03/29/24 03/30/24 03/30/24 19:57 06:35 20:30 POC Glucose 126 H 116 H 132 H 03/31/24 06:36 POC Glucose 96 Imaging Radiology Impressions: ITS Impressions Abdomen Ultrasound 03/29/24 09:20 IMPRESSION: Moderate ascites. Medications Medications Current Medications Al Hydroxide/Mg Hydroxide (Magnesium Hydrox/Alum Hydrox 30 Ml Oral.Susp) 30 ml PO Q6H PRN PRN Reason: Heartburn/Nausea Last Admin: 03/26/24 08:57 Dose: 30 ml Bictegravir/Emtricitabine/Tenofovir (Bictegrav/Emtricit/Tenofov Ala Tablet) 1 tab PO DAILY [facility] Last Admin: 03/31/24 09:32 Dose: 1 tab Buprenorphine/Naloxone (Buprenorphine/Naloxone 8/2 Mg Film) 1 film SUBLINGUAL TID [facility] Last Admin: 03/31/24 09:31 Dose: 1 film Bupropion HCl (Bupropion Hcl Xl 150 Mg Tab.Er.24h) 150 mg PO BID@0900,1500 [facility] Last Admin: 03/31/24 09:32 Dose: 150 mg Buspirone HCl (Buspirone Hcl 10 Mg Tablet) 10 mg PO BID [facility] Last Admin: 03/31/24 09:32 Dose: 10 mg Buspirone HCl (Buspirone Hcl 5 Mg Tablet) 15 mg PO BID [facility] Last Admin: 03/31/24 09:32 Dose: 15 mg Clopidogrel Bisulfate (Clopidogrel Bisulfate 75 Mg Tablet) 75 mg PO DAILY [facility] Last Admin: 03/31/24 09:32 Dose: 75 mg Empagliflozin (Empagliflozin 10 Mg Tablet) 10 mg PO DAILY [facility] Last Admin: 03/31/24 09:32 Dose: 10 mg Fluticasone/Vilanterol (Fluticasone/Vilanterol 100/25 Blst.W.Dev) 1 puff INHALE RDAILY [facility] Last Admin: 03/31/24 09:31 Dose: 1 puff Folic Acid (Folic Acid 1 Mg Tablet) 1 mg PO DAILY [facility] Last Admin: 03/31/24 09:31 Dose: 1 mg Furosemide (Furosemide 20 Mg Tablet) 20 mg PO DAILY [facility]; Protocol Last Admin: 03/31/24 09:32 Dose: 20 mg Gabapentin (Gabapentin 100 Mg Capsule) 100 mg PO TID [facility] Last Admin: 03/31/24 09:32 Dose: 100 mg Hydroxyzine HCl (Hydroxyzine Hcl 25 Mg Tablet) 25 mg PO Q6H PRN PRN Reason: Anxiety Last Admin: 03/21/24 22:07 Dose: 25 mg Insulin Human Lispro (Insulin Lispro 100 Unit/Ml 3 Ml Vial) 0 unit SUBCUT BID [facility]; Protocol Last Admin: 03/31/24 08:02 Dose: Not Given Lactulose (Lactulose 20 Gm/30 Ml Solution) 20 gm PO BID [facility] Last Admin: 03/31/24 09:31 Dose: 20 gm Magnesium Hydroxide (Milk Of Magnesia 30 Ml Oral.Susp) 30 ml PO DAILY PRN PRN Reason: Constipation Melatonin (Melatonin 3 Mg Tablet) 3 mg PO BEDTIME [facility] Last Admin: 03/30/24 20:39 Dose: 3 mg Nicotine (Nicotine 21 Mg Patch.Td24) 21 mg TRANSDERMA DAILY PRN PRN Reason: nicotine cravings Nicotine Polacrilex (Nicotine Polacrilex 2 Mg Gum) 4 mg BUCCAL Q2H PRN PRN Reason: Nicotine Cravings Oxycodone HCl (Oxycodone Hcl Immed Release 5 Mg Tablet) 5 mg PO BID PRN PRN Reason: severe pain Last Admin: 03/30/24 20:40 Dose: 5 mg Pantoprazole Sodium (Pantoprazole Sodium 20 Mg Tablet.Dr) 40 mg PO DAILY@0630 [facility] Last Admin: 03/31/24 05:36 Dose: 40 mg Quetiapine Fumarate (Quetiapine Fumarate 100 Mg Tablet) 100 mg PO BEDTIME [facility] Last Admin: 03/30/24 20:39 Dose: 100 mg Sodium Chloride (0.9 % Sodium Chloride Flush 10 Ml Syringe) 5 ml IVFLUSH TID@0500,1300,2100 [facility] Last Admin: 03/31/24 05:35 Dose: 5 ml Thiamine HCl (Thiamine Hcl 100 Mg Tablet) 100 mg PO DAILY [facility] Last Admin: 03/31/24 09:32 Dose: 100 mg Trazodone HCl (Trazodone Hcl 50 Mg Tablet) 50 mg PO BEDTIME MRX1 PRN PRN Reason: Insomnia Last Admin: 03/28/24 19:54 Dose: 50 mg Allergies Allergies Allergy/AdvReac Type Severity Reaction Status Date / Time ketorolac [From Toradol] AdvReac Itching Verified 03/16/24 19:06 Assessment & Plan Assessment & Plan (1) MDD (major depressive disorder), recurrent severe, without psychosis: Status: Inactive Code(s): F33.2 - Major depressive disorder, recurrent severe without psychotic features (2) PTSD (post-traumatic stress disorder): Status: Inactive Code(s): F43.10 - Post-traumatic stress disorder, unspecified (3) MSSA bacteremia: Status: Acute Code(s): R78.81 - Bacteremia; B95.61 - Methicillin susceptible Staphylococcus aureus infection as the cause of diseases classified elsewhere (4) Alcoholic hepatitis: Status: Resolved Code(s): K70.10 - Alcoholic hepatitis without ascites (5) Decompensation of cirrhosis of liver: Status: Inactive Code(s): K72.90 - Hepatic failure, unspecified without coma; K74.60 - Unspecified cirrhosis of liver (6) Opioid dependence: Status: Inactive Code(s): F11.20 - Opioid dependence, uncomplicated (7) COPD (chronic obstructive pulmonary disease): Status: Inactive Code(s): J44.9 - Chronic obstructive pulmonary disease, unspecified (8) HIV infection: Status: Inactive Code(s): B20 - Human immunodeficiency virus [HIV] disease (9) Cocaine abuse: Status: Inactive Code(s): F14.10 - Cocaine abuse, uncomplicated (10) Alcohol use disorder: Status: Inactive Code(s): F10.90 - Alcohol use, unspecified, uncomplicated Plan HPI: Patient is a 59-year-old male with history of depression, PTSD, opiate/alcohol dependence, HIV, alcohol hepatitis, hep C, portal hypotension/ascites, COPD who was [facility], following treatment for MSSA bacteremia, currently on IV antibiotics. Patient was being treated for MSSA bacteremia for several weeks on the hospital floor during which time he also developed: 1.encephalopathy from elevated liver enzymes/ammonia (resolved now on lactulose and rifaximin) 2.small-bowel obstruction, resolved with conservative treatment 3.Aspiration pneumonia, resolving 4.DELMI, resolved 5.Recurrent ascites with paracentesis x2 While on medical floor, patient was accepted to a sniff but left AMA; he came back the next day was admitted again and reported SI to jump off a bridge. Patient says that is mind was not right to tolerate going to a sniff so he left AMA, quickly finding himself depressed and walked over to a bridge, thinking of jumping; he says he saw the face of his sister who said come join me... Patient however self presented to the hospital, not wanting to and citing several protective factors including seeing certain family members grow up. Currently not suicidal Hospital course: 03/22 Patient reports that he is overall okay; no SI. Tired but pushing himself to get up and move around. agrees to remain at [facility] given longevity there and strong rapport with providers there. -initially going to go to SNF for physical therapy in addition to PICC line/antibiotics. Reached out to physical therapy who will re-evaluate patient next week. Of note patient left the hospital AMA and was walking around on his own quite some distance before he decided to return to the hospital. PLAN: CV Q 15 minute checks Bictegravir/Emtricitabine/Tenofovir (Bictegrav/Emtricit/Tenofov Ala Tablet) 1 tab PO DAILY [facility] Buprenorphine/Naloxone (Buprenorphine/Naloxone 8/2 Mg Film) 1 film SUBLINGUAL TID [facility] Bupropion HCl (Bupropion Hcl Xl 150 Mg Tab.Er.24h) 150 mg PO BID@0900,1500 [facility] Buspirone HCl (Buspirone Hcl 10 Mg Tablet) 10 mg PO BID [facility] Buspirone HCl (Buspirone Hcl 5 Mg Tablet) 15 mg PO BID [facility] Clopidogrel Bisulfate (Clopidogrel Bisulfate 75 Mg Tablet) 75 mg PO DAILY [facility] Empagliflozin (Empagliflozin 10 Mg Tablet) 10 mg PO DAILY [facility] Fluticasone/Vilanterol (Fluticasone/Vilanterol 100/25 Blst.W.Dev) 1 puff INHALE DAILY [facility] Folic Acid 1 mg PO DAILY [facility] Cefazolin Sodium/Dextrose (Ancef) 2 gm in 50 mls @ 100 mls/hr IV Q8H [facility] Lactulose (Lactulose 20 Gm/30 Ml Solution) 20 gm PO TID [facility] Melatonin (Melatonin 3 Mg Tablet) 6 mg PO BEDTIME PRN Ondansetron HCl Pantoprazole Sodium (Pantoprazole Sodium 20 Mg Tablet.Dr) 40 mg PO DAILY@0630 [facility] Rifaximin (Rifaximin 550 Mg Tablet) 550 mg PO BID [facility] Sodium Chloride (0.9 % Sodium Chloride Flush 3 Ml Syringe) 3 ml IVFLUSH QSHIFT [facility] Thiamine HCl (Thiamine Hcl 100 Mg Tablet) 100 mg PO DAILY [facility] Gabapentin 100 mg t.i.d. Oxycodone HCl 5 mg PO daily prn Quetiapine Fumarate 50 mg PO BEDTIME [facility] Furosemide 20 mg daily Insulin sliding scale At discharge, will need to follow-up appointments for: Infectious disease GI Psychiatry 1. Seroquel was been increased up to 100 mg p.o. q.h.s. to target mood lability. At this point we are not planning to increased anymore until his medical condition improves. 2. We will assess for the possibility of longterm facility subacute rehab 03/28/24 continue treatment plan hospitalist consult for pain and ascites consider consult with hospice if appropriate 03/29: calm, cooperative. 7.5L tapped from ascites. feeling much better. continue current mgmt. 03/30: remains improved physically post-tap. pain remains. increase oxycodone PRN dosing from 5 mg once daily to twice daily. otherwise continue current mgmt. 03/31: continues improved. no change in mgmt. Reason for continued inpatient stay Substantial Risk for: inability to function Time Spent With Patient Time: Total time managing care of this patient today ____ minutes.
[2024-03-31] MEDS: oxyCODONE HCl Immed Release 5 MG TABLET PO (12:36)
[2024-03-31 14:45] VITALS: BP 99/65; PULSE 68
[2024-03-31 19:34] LABS: Glucose, Whole Blood 142 mg/dL (60-115)
[2024-03-31 20:07] VITALS: BP 112/62; PULSE 73; RESP 16; TEMP 36.8; O2SAT 94
[2024-03-31] MEDS: QUEtiapine Fumarate 100 MG TABLET PO (20:10)
[2024-03-31] MEDS: Melatonin 3 MG TABLET PO (20:10)
[2024-04-01] MEDS: 0.9 % Sodium Chloride Flush 10 ML SYRINGE 5 ML IVFLUSH ×3 (05:28→20:46)
[2024-04-01] MEDS: Pantoprazole Sodium 20 MG TABLET.DR 40 MG PO (05:31)
[2024-04-01 06:40] LABS: Glucose, Whole Blood 108 mg/dL (60-115)
[2024-04-01] MEDS: oxyCODONE HCl Immed Release 5 MG TABLET PO ×2 (06:44→17:28)
[2024-04-01] MEDS: Folic Acid 1 MG TABLET PO (08:22)
[2024-04-01] MEDS: Buprenorphine/Naloxone 8/2 mg FILM 1 FILM SUBLINGUAL ×3 (08:22→20:42)
[2024-04-01] MEDS: busPIRone HCl 5 MG TABLET 15 MG PO ×2 (08:22→20:43)
[2024-04-01] MEDS: Bictegrav/Emtricit/Tenofov Ala TABLET 1 TAB PO (08:22)
[2024-04-01] MEDS: Thiamine HCL 100 MG TABLET PO (08:22)
[2024-04-01] MEDS: Clopidogrel Bisulfate 75 MG TABLET PO (08:22)
[2024-04-01] MEDS: busPIRone HCl 10 MG TABLET PO ×2 (08:22→20:44)
[2024-04-01] MEDS: Fluticasone/Vilanterol 100/25 BLST.W.DEV 1 PUFF INHALE (08:22)
[2024-04-01] MEDS: Lactulose 20 GM/30 ML SOLUTION PO ×2 (08:22→20:42)
[2024-04-01 08:23] VITALS: BP 106/68; BP 108/68; PULSE 74; RESP 16; TEMP 36.6; O2SAT 92
[2024-04-01] MEDS: Gabapentin 100 MG CAPSULE PO ×3 (08:23→20:43)
[2024-04-01] MEDS: Empagliflozin 10 MG TABLET PO (08:23)
[2024-04-01] MEDS: Furosemide 20 MG TABLET PO (08:23)
[2024-04-01] MEDS: buPROPion HCl XL 150 MG TAB.ER.24H PO ×2 (08:23→14:49)
[2024-04-01 13:12] VITALS: PULSE 103; O2SAT 93
--- NOTE | 2024-04-01 15:20 | P.PNPSI_ITS ---
Subjective Subjective Date of Service: 04/01/24 Reason For Visit: SI depression Subjective Notes: Conditional Voluntary Interim History: The nursing staff reported the patient had been cooperative and pleasant still dysphoric and withdrawn. He slept 7 hours. The social studies teacher reported that he is going to be transferred to a subacute rehab. On interview the patient denies new symptoms we are going to keep on the same medications blood work for tomorrow morning Mental Status Exam Mental Status Exam Patient Appearance: Appropriate Patient Orientation: Person and Situation Level of Consciousness: Awake and Appropriate Patient Behavior: Guarded and Passive Mood Description: Withdrawn Affect Description: Constricted Patient Cognition Impaired: Yes Ability to Follow Directions: Good Speech Pattern: Clear Hallucinations: None Delusions: Not Present Thought Process: Distracted and Slowed Thinking Thought Content: positive for [place] and positive for Poverty of Content Judgement: Fair Diagnostics Vital Signs (24Hr): Vital Signs - 24 hr 03/31/24 20:07 04/01/24 08:23 04/01/24 08:23 Temperature 98.2 F 97.9 F Pulse Rate 73 74 Respiratory Rate 16 16 Blood Pressure 112/62 108/68 106/68 Pulse Oximetry 94 92 Oxygen Delivery Method Room Air Room Air 04/01/24 13:12 Temperature Pulse Rate 103 H Respiratory Rate Blood Pressure Pulse Oximetry 93 Oxygen Delivery Method BMI result Body Mass Index 24.2 Labs 03/21/24 09:08 Labs: Laboratory Results - last 48 hr 03/30/24 03/31/24 03/31/24 20:30 06:36 19:29 POC Glucose 132 H 96 142 H 04/01/24 06:32 POC Glucose 108 Imaging Radiology Impressions: ITS Impressions Abdomen Ultrasound 03/29/24 09:20 IMPRESSION: Moderate ascites. Medications Medications Current Medications Al Hydroxide/Mg Hydroxide (Magnesium Hydrox/Alum Hydrox 30 Ml Oral.Susp) 30 ml PO Q6H PRN PRN Reason: Heartburn/Nausea Last Admin: 03/26/24 08:57 Dose: 30 ml Bictegravir/Emtricitabine/Tenofovir (Bictegrav/Emtricit/Tenofov Ala Tablet) 1 tab PO DAILY [facility] Last Admin: 04/01/24 08:22 Dose: 1 tab Buprenorphine/Naloxone (Buprenorphine/Naloxone 8/2 Mg Film) 1 film SUBLINGUAL TID [facility] Last Admin: 04/01/24 14:49 Dose: 1 film Bupropion HCl (Bupropion Hcl Xl 150 Mg Tab.Er.24h) 150 mg PO BID@0900,1500 [facility] Last Admin: 04/01/24 14:49 Dose: 150 mg Buspirone HCl (Buspirone Hcl 10 Mg Tablet) 10 mg PO BID [facility] Last Admin: 04/01/24 08:22 Dose: 10 mg Buspirone HCl (Buspirone Hcl 5 Mg Tablet) 15 mg PO BID [facility] Last Admin: 04/01/24 08:22 Dose: 15 mg Clopidogrel Bisulfate (Clopidogrel Bisulfate 75 Mg Tablet) 75 mg PO DAILY [facility] Last Admin: 04/01/24 08:22 Dose: 75 mg Empagliflozin (Empagliflozin 10 Mg Tablet) 10 mg PO DAILY [facility] Last Admin: 04/01/24 08:23 Dose: 10 mg Fluticasone/Vilanterol (Fluticasone/Vilanterol 100/25 Blst.W.Dev) 1 puff INHALE RDAILY [facility] Last Admin: 04/01/24 08:22 Dose: 1 puff Folic Acid (Folic Acid 1 Mg Tablet) 1 mg PO DAILY [facility] Last Admin: 04/01/24 08:22 Dose: 1 mg Furosemide (Furosemide 20 Mg Tablet) 20 mg PO DAILY [facility]; Protocol Last Admin: 04/01/24 08:23 Dose: 20 mg Gabapentin (Gabapentin 100 Mg Capsule) 100 mg PO TID [facility] Last Admin: 04/01/24 14:49 Dose: 100 mg Hydroxyzine HCl (Hydroxyzine Hcl 25 Mg Tablet) 25 mg PO Q6H PRN PRN Reason: Anxiety Last Admin: 03/21/24 22:07 Dose: 25 mg Insulin Human Lispro (Insulin Lispro 100 Unit/Ml 3 Ml Vial) 0 unit SUBCUT BID [facility]; Protocol Last Admin: 04/01/24 08:53 Dose: Not Given Lactulose (Lactulose 20 Gm/30 Ml Solution) 20 gm PO BID [facility] Last Admin: 04/01/24 08:22 Dose: 20 gm Magnesium Hydroxide (Milk Of Magnesia 30 Ml Oral.Susp) 30 ml PO DAILY PRN PRN Reason: Constipation Melatonin (Melatonin 3 Mg Tablet) 3 mg PO BEDTIME [facility] Last Admin: 03/31/24 20:10 Dose: 3 mg Nicotine (Nicotine 21 Mg Patch.Td24) 21 mg TRANSDERMA DAILY PRN PRN Reason: nicotine cravings Nicotine Polacrilex (Nicotine Polacrilex 2 Mg Gum) 4 mg BUCCAL Q2H PRN PRN Reason: Nicotine Cravings Oxycodone HCl (Oxycodone Hcl Immed Release 5 Mg Tablet) 5 mg PO BID PRN PRN Reason: severe pain Last Admin: 04/01/24 06:44 Dose: 5 mg Pantoprazole Sodium (Pantoprazole Sodium 20 Mg Tablet.Dr) 40 mg PO DAILY@0630 [facility] Last Admin: 04/01/24 05:31 Dose: 40 mg Quetiapine Fumarate (Quetiapine Fumarate 100 Mg Tablet) 100 mg PO BEDTIME [facility] Last Admin: 03/31/24 20:10 Dose: 100 mg Sodium Chloride (0.9 % Sodium Chloride Flush 10 Ml Syringe) 5 ml IVFLUSH TID@0500,1300,2100 [facility] Last Admin: 04/01/24 12:31 Dose: 5 ml Thiamine HCl (Thiamine Hcl 100 Mg Tablet) 100 mg PO DAILY [facility] Last Admin: 04/01/24 08:22 Dose: 100 mg Trazodone HCl (Trazodone Hcl 50 Mg Tablet) 50 mg PO BEDTIME MRX1 PRN PRN Reason: Insomnia Last Admin: 03/28/24 19:54 Dose: 50 mg Allergies Allergies Allergy/AdvReac Type Severity Reaction Status Date / Time ketorolac [From Toradol] AdvReac Itching Verified 03/16/24 19:06 Assessment & Plan Assessment & Plan (1) MDD (major depressive disorder), recurrent severe, without psychosis: Status: Inactive Code(s): F33.2 - Major depressive disorder, recurrent severe without psychotic features (2) PTSD (post-traumatic stress disorder): Status: Inactive Code(s): F43.10 - Post-traumatic stress disorder, unspecified (3) MSSA bacteremia: Status: Acute Code(s): R78.81 - Bacteremia; B95.61 - Methicillin susceptible Staphylococcus aureus infection as the cause of diseases classified elsewhere (4) Alcoholic hepatitis: Status: Resolved Code(s): K70.10 - Alcoholic hepatitis without ascites (5) Decompensation of cirrhosis of liver: Status: Inactive Code(s): K72.90 - Hepatic failure, unspecified without coma; K74.60 - Unspecified cirrhosis of liver (6) Opioid dependence: Status: Inactive Code(s): F11.20 - Opioid dependence, uncomplicated (7) COPD (chronic obstructive pulmonary disease): Status: Inactive Code(s): J44.9 - Chronic obstructive pulmonary disease, unspecified (8) HIV infection: Status: Inactive Code(s): B20 - Human immunodeficiency virus [HIV] disease (9) Cocaine abuse: Status: Inactive Code(s): F14.10 - Cocaine abuse, uncomplicated (10) Alcohol use disorder: Status: Inactive Code(s): F10.90 - Alcohol use, unspecified, uncomplicated Plan HPI: Patient is a 59-year-old male with history of depression, PTSD, opiate/alcohol dependence, HIV, alcohol hepatitis, hep C, portal hypotension/ascites, COPD who was transferred from the medical floor to [facility] for SI, following treatment for MSSA bacteremia, currently on IV antibiotics. Patient was being treated for MSSA bacteremia for several weeks on the hospital floor during which time he also developed: 1.encephalopathy from elevated liver enzymes/ammonia (resolved now on lactulose and rifaximin) 2.small-bowel obstruction, resolved with conservative treatment 3.Aspiration pneumonia, resolving 4.DELMI, resolved 5.Recurrent ascites with paracentesis x2 While on medical floor, patient was accepted to a sniff but left AMA; he came back the next day was admitted again and reported SI to jump off a bridge. Patient says that is mind was not right to tolerate going to a sniff so he left AMA, quickly finding himself depressed and walked over to a bridge, thinking of jumping; he says he saw the face of his sister who said come join me... Patient however self presented to the hospital, not wanting to and citing several protective factors including seeing certain family members grow up. Currently not suicidal Hospital course: 03/22 Patient reports that he is overall okay; no SI. Tired but pushing himself to get up and move around. agrees to remain at [facility] given longevity there and strong rapport with providers there. -initially going to go to SNF for physical therapy in addition to PICC line/antibiotics. Reached out to physical therapy who will re-evaluate patient next week. Of note patient left the hospital AMA and was walking around on his own quite some distance before he decided to return to the hospital. PLAN: CV Q 15 minute checks Bictegravir/Emtricitabine/Tenofovir (Bictegrav/Emtricit/Tenofov Ala Tablet) 1 tab PO DAILY [facility] Buprenorphine/Naloxone (Buprenorphine/Naloxone 8/2 Mg Film) 1 film SUBLINGUAL TID [facility] Bupropion HCl (Bupropion Hcl Xl 150 Mg Tab.Er.24h) 150 mg PO BID@0900,1500 [facility] Buspirone HCl (Buspirone Hcl 10 Mg Tablet) 10 mg PO BID [facility] Buspirone HCl (Buspirone Hcl 5 Mg Tablet) 15 mg PO BID [facility] Clopidogrel Bisulfate (Clopidogrel Bisulfate 75 Mg Tablet) 75 mg PO DAILY [facility] Empagliflozin (Empagliflozin 10 Mg Tablet) 10 mg PO DAILY [facility] Fluticasone/Vilanterol (Fluticasone/Vilanterol 100/25 Blst.W.Dev) 1 puff INHALE DAILY [facility] Folic Acid 1 mg PO DAILY [facility] Cefazolin Sodium/Dextrose (Ancef) 2 gm in 50 mls @ 100 mls/hr IV Q8H [facility] Lactulose (Lactulose 20 Gm/30 Ml Solution) 20 gm PO TID [facility] Melatonin (Melatonin 3 Mg Tablet) 6 mg PO BEDTIME PRN Ondansetron HCl Pantoprazole Sodium (Pantoprazole Sodium 20 Mg Tablet.Dr) 40 mg PO DAILY@0630 [facility] Rifaximin (Rifaximin 550 Mg Tablet) 550 mg PO BID [facility] Sodium Chloride (0.9 % Sodium Chloride Flush 3 Ml Syringe) 3 ml IVFLUSH QSHIFT [facility] Thiamine HCl (Thiamine Hcl 100 Mg Tablet) 100 mg PO DAILY [facility] Gabapentin 100 mg t.i.d. Oxycodone HCl 5 mg PO daily prn Quetiapine Fumarate 50 mg PO BEDTIME [facility] Furosemide 20 mg daily Insulin sliding scale At discharge, will need to follow-up appointments for: Infectious disease GI Psychiatry 1. Seroquel was been increased up to 100 mg p.o. q.h.s. to target mood lability. At this point we are not planning to increased anymore until his medical condition improves. 2. We will assess for the possibility of halfway facility subacute rehab 3. Continue on same medications, blood work for tomorrow morning Reason for continued inpatient stay Substantial Risk for: inability to function, rapid decompensation and med/psych decompensation Time Spent With Patient Time: Total time managing care of this patient today __20__ minutes.
[2024-04-01 20:00] VITALS: BP 103/63; PULSE 74; RESP 16; TEMP 36.5; O2SAT 92
[2024-04-01 20:20] LABS: Glucose, Whole Blood 118 mg/dL (60-115)
[2024-04-01] MEDS: Melatonin 3 MG TABLET PO (20:43)
[2024-04-01] MEDS: QUEtiapine Fumarate 100 MG TABLET PO (20:44)
[2024-04-02] MEDS: 0.9 % Sodium Chloride Flush 10 ML SYRINGE 5 ML IVFLUSH ×3 (05:36→19:53)
[2024-04-02] MEDS: Pantoprazole Sodium 20 MG TABLET.DR 40 MG PO (05:36)
[2024-04-02 06:49] LABS: Glucose, Whole Blood 91 mg/dL (60-115)
[2024-04-02 08:41] LABS: Estimated Average Glucose 91 mg/dL; Hemoglobin A1c % 4.8 % (<6.0)
[2024-04-02 08:51] LABS: Alanine Aminotransferase 10 U/L (0-40); Albumin Level 1.9 g/dL (3.5-5.0); Alkaline Phosphatase 205 U/L (39-117); Anion Gap 12 (12-20); Aspartate Amino Transferase 70 U/L (5-37); Bilirubin Direct 0.9 mg/dL (0.0-0.5); Bilirubin Total 2.2 mg/dL (0.0-1.0); Blood Urea Nitrogen 12 mg/dL (9-16); Calcium 7.5 mg/dL (8.4-10.2); Carbon Dioxide 21 mmol/L (22-29); Chloride 101 mmol/L (96-108); Creatinine Clr Calc Pharmacy 116.6; Estimated Glomerular Filt Rate > 60; Glucose Random 137 mg/dL (60-115); Potassium 4.6 mmol/L (3.3-5.1); Sodium 129 mmol/L (135-145); Total Protein 6.4 g/dL (6.5-8.0)
[2024-04-02 09:10] VITALS: BP 127/62; PULSE 81; RESP 18; TEMP 36.6; O2SAT 90
[2024-04-02] MEDS: Fluticasone/Vilanterol 100/25 BLST.W.DEV 1 PUFF INHALE (09:16)
[2024-04-02] MEDS: oxyCODONE HCl Immed Release 5 MG TABLET PO ×2 (09:16→19:50)
[2024-04-02] MEDS: Bictegrav/Emtricit/Tenofov Ala TABLET 1 TAB PO (09:16)
[2024-04-02] MEDS: busPIRone HCl 10 MG TABLET PO ×2 (09:16→19:51)
[2024-04-02] MEDS: Gabapentin 100 MG CAPSULE PO ×3 (09:17→19:51)
[2024-04-02] MEDS: Furosemide 20 MG TABLET PO (09:17)
[2024-04-02] MEDS: Thiamine HCL 100 MG TABLET PO (09:17)
[2024-04-02] MEDS: buPROPion HCl XL 150 MG TAB.ER.24H PO ×2 (09:17→15:39)
[2024-04-02] MEDS: Folic Acid 1 MG TABLET PO (09:17)
[2024-04-02] MEDS: Empagliflozin 10 MG TABLET PO (09:17)
[2024-04-02] MEDS: Clopidogrel Bisulfate 75 MG TABLET PO (09:17)
[2024-04-02] MEDS: busPIRone HCl 5 MG TABLET 15 MG PO ×2 (09:18→19:48)
[2024-04-02] MEDS: Buprenorphine/Naloxone 8/2 mg FILM 1 FILM SUBLINGUAL ×3 (09:18→19:45)
[2024-04-02] MEDS: Lactulose 20 GM/30 ML SOLUTION PO ×2 (09:18→19:48)
[2024-04-02 13:39] LABS: Basophils Absolute Auto 0.1 X10*3/uL (0.0-0.2); Basophils Percent Auto 0.7 % (0-2); Eosinophils Absolute Auto 0.2 X10*3/uL (0.0-0.4); Eosinophils Percent Auto 1.3 % (0-4); Hematocrit 37.9 % (42.0-52.0); Hemoglobin 13.1 g/dl (14.0-18.0); Imm Gran Abs Auto 0.14 X10*3/uL (0.00-0.03); Lymphocytes Absolute Auto 1.5 X10*3/uL (1.2-4.9); Mean Corpuscular HGB Conc 34.6 g/dl (31.0-36.0); Mean Corpuscular Hemoglobin 33.9 pg (27.0-33.0); Mean Corpuscular Volume 97.9 fL (80.0-98.0); Mean Platelet Volume 10.4 fL (9.4-12.4); Monocytes Absolute Auto 1.3 X10*3/uL (0.1-1.2); Neutrophils Absolute Auto 10.1 x10*3/uL (2.0-8.3); Platelet Count 194 X10*3/uL (160-400); Red Blood Count 3.87 X10*6/uL (4.60-5.80); Red Cell Distribution Width 13.4 % (11.0-16.0); White Blood Count 13.4 X10*3/uL (4.8-10.8)
[2024-04-02 13:53] LABS: MANUAL DIFF FLAG NO
--- NOTE | 2024-04-02 16:35 | HO.PSYCHPN ---
Subjective Subjective Date of Service: 04/02/24 Reason For Visit: SI depression Subjective Notes: Conditional Voluntary Interim History: The nursing staff reported the patient had been compliant with treatment, sometimes he gets a little angry but easily redirectable. On interview the patient denies new symptoms, waiting for placement his main complaint is poor sleep so we are increasing Seroquel up to 200 mg p.o. q.h.s.. His blood work came back without no changes Mental Status Exam Mental Status Exam Patient Appearance: Appropriate Patient Orientation: Person and Situation Level of Consciousness: Awake and Appropriate Patient Behavior: Guarded and Passive Mood Description: Withdrawn Affect Description: Constricted Patient Cognition Impaired: Yes Ability to Follow Directions: Good Speech Pattern: Clear Hallucinations: None Delusions: Not Present Thought Process: Distracted and Slowed Thinking Thought Content: positive for [place] and positive for Poverty of Content Judgement: Fair Diagnostics Vital Signs (24Hr): Vital Signs - 24 hr 04/01/24 20:00 04/02/24 09:10 Temperature 97.7 F 97.8 F Pulse Rate 74 81 Respiratory Rate 16 18 Blood Pressure 103/63 127/62 Pulse Oximetry 92 90 L Oxygen Delivery Method Room Air Room Air BMI result Body Mass Index 24.2 Labs 04/02/24 13:28 04/02/24 08:16 Labs: Laboratory Results - last 48 hr 03/31/24 04/01/24 04/01/24 19:29 06:32 19:56 WBC RBC Hgb Hct MCV MCH MCHC RDW Plt Count MPV Immature Gran % (Auto) Neut % (Auto) Lymph % (Auto) [place] % (Auto) Eos % (Auto) Baso % (Auto) Lymph # (Auto) [place] # (Auto) Eos # (Auto) Baso # (Auto) Abs Immat Gran (auto) Absolute Neuts (auto) Absolute Nucleated RBC Nucleated RBC % (auto) Sodium Potassium Chloride Carbon Dioxide Anion Gap BUN Creatinine Estim Creat Clear Calc Estimated GFR POC Glucose 142 H 108 118 H Random Glucose Estimat Average Glucose Hemoglobin A1c % Calcium Total Bilirubin Direct Bilirubin AST ALT Alkaline Phosphatase Total Protein Albumin 04/02/24 04/02/24 04/02/24 06:40 08:16 13:28 WBC 13.4 H RBC 3.87 L Hgb 13.1 L Hct 37.9 L MCV 97.9 MCH 33.9 H MCHC 34.6 RDW 13.4 Plt Count 194 MPV 10.4 Immature Gran % (Auto) 1.0 H Neut % (Auto) 76.0 H Lymph % (Auto) 11.0 L [place] % (Auto) 10.0 Eos % (Auto) 1.3 Baso % (Auto) 0.7 Lymph # (Auto) 1.5 [place] # (Auto) 1.3 H Eos # (Auto) 0.2 Baso # (Auto) 0.1 Abs Immat Gran (auto) 0.14 H Absolute Neuts (auto) 10.1 H Absolute Nucleated RBC 0.000 Nucleated RBC % (auto) 0.0 Sodium 129 L Potassium 4.6 Chloride 101 Carbon Dioxide 21 L Anion Gap 12 BUN 12 Creatinine 0.78 Estim Creat Clear Calc 116.6 Estimated GFR > 60 POC Glucose 91 Random Glucose 137 H Estimat Average Glucose 91 Hemoglobin A1c % 4.8 Calcium 7.5 L Total Bilirubin 2.2 H Direct Bilirubin 0.9 H AST 70 H ALT 10 Alkaline Phosphatase 205 H Total Protein 6.4 L Albumin 1.9 L Imaging Radiology Impressions: ITS Impressions Abdomen Ultrasound 03/29/24 09:20 IMPRESSION: Moderate ascites. Medications Medications Current Medications Al Hydroxide/Mg Hydroxide (Magnesium Hydrox/Alum Hydrox 30 Ml Oral.Susp) 30 ml PO Q6H PRN PRN Reason: Heartburn/Nausea Last Admin: 03/26/24 08:57 Dose: 30 ml Bictegravir/Emtricitabine/Tenofovir (Bictegrav/Emtricit/Tenofov Ala Tablet) 1 tab PO DAILY [facility] Last Admin: 04/02/24 09:16 Dose: 1 tab Buprenorphine/Naloxone (Buprenorphine/Naloxone 8/2 Mg Film) 1 film SUBLINGUAL TID [facility] Last Admin: 04/02/24 15:39 Dose: 1 film Bupropion HCl (Bupropion Hcl Xl 150 Mg Tab.Er.24h) 150 mg PO BID@0900,1500 [facility] Last Admin: 04/02/24 15:39 Dose: 150 mg Buspirone HCl (Buspirone Hcl 10 Mg Tablet) 10 mg PO BID [facility] Last Admin: 04/02/24 09:16 Dose: 10 mg Buspirone HCl (Buspirone Hcl 5 Mg Tablet) 15 mg PO BID [facility] Last Admin: 04/02/24 09:18 Dose: 15 mg Clopidogrel Bisulfate (Clopidogrel Bisulfate 75 Mg Tablet) 75 mg PO DAILY [facility] Last Admin: 04/02/24 09:17 Dose: 75 mg Empagliflozin (Empagliflozin 10 Mg Tablet) 10 mg PO DAILY [facility] Last Admin: 04/02/24 09:17 Dose: 10 mg Fluticasone/Vilanterol (Fluticasone/Vilanterol 100/25 Blst.W.Dev) 1 puff INHALE RDAILY [facility] Last Admin: 04/02/24 09:16 Dose: 1 puff Folic Acid (Folic Acid 1 Mg Tablet) 1 mg PO DAILY [facility] Last Admin: 04/02/24 09:17 Dose: 1 mg Furosemide (Furosemide 20 Mg Tablet) 20 mg PO DAILY [facility]; Protocol Last Admin: 04/02/24 09:17 Dose: 20 mg Gabapentin (Gabapentin 100 Mg Capsule) 100 mg PO TID [facility] Last Admin: 04/02/24 15:39 Dose: 100 mg Hydroxyzine HCl (Hydroxyzine Hcl 25 Mg Tablet) 25 mg PO Q6H PRN PRN Reason: Anxiety Last Admin: 03/21/24 22:07 Dose: 25 mg Insulin Human Lispro (Insulin Lispro 100 Unit/Ml 3 Ml Vial) 0 unit SUBCUT BID [facility]; Protocol Last Admin: 04/02/24 09:18 Dose: Not Given Lactulose (Lactulose 20 Gm/30 Ml Solution) 20 gm PO BID [facility] Last Admin: 04/02/24 09:18 Dose: 20 gm Magnesium Hydroxide (Milk Of Magnesia 30 Ml Oral.Susp) 30 ml PO DAILY PRN PRN Reason: Constipation Melatonin (Melatonin 3 Mg Tablet) 3 mg PO BEDTIME [facility] Last Admin: 04/01/24 20:43 Dose: 3 mg Nicotine (Nicotine 21 Mg Patch.Td24) 21 mg TRANSDERMA DAILY PRN PRN Reason: nicotine cravings Nicotine Polacrilex (Nicotine Polacrilex 2 Mg Gum) 4 mg BUCCAL Q2H PRN PRN Reason: Nicotine Cravings Oxycodone HCl (Oxycodone Hcl Immed Release 5 Mg Tablet) 5 mg PO BID PRN PRN Reason: severe pain Last Admin: 04/02/24 09:16 Dose: 5 mg Pantoprazole Sodium (Pantoprazole Sodium 20 Mg Tablet.Dr) 40 mg PO DAILY@0630 [facility] Last Admin: 04/02/24 05:36 Dose: 40 mg Quetiapine Fumarate (Quetiapine Fumarate 100 Mg Tablet) 100 mg PO BEDTIME [facility] Last Admin: 04/01/24 20:44 Dose: 100 mg Sodium Chloride (0.9 % Sodium Chloride Flush 10 Ml Syringe) 5 ml IVFLUSH TID@0500,1300,2100 [facility] Last Admin: 04/02/24 13:33 Dose: 5 ml Thiamine HCl (Thiamine Hcl 100 Mg Tablet) 100 mg PO DAILY [facility] Last Admin: 04/02/24 09:17 Dose: 100 mg Trazodone HCl (Trazodone Hcl 50 Mg Tablet) 50 mg PO BEDTIME MRX1 PRN PRN Reason: Insomnia Last Admin: 03/28/24 19:54 Dose: 50 mg Allergies Allergies Allergy/AdvReac Type Severity Reaction Status Date / Time ketorolac [From Toradol] AdvReac Itching Verified 03/16/24 19:06 Assessment & Plan Assessment & Plan (1) MDD (major depressive disorder), recurrent severe, without psychosis: Status: Inactive Code(s): F33.2 - Major depressive disorder, recurrent severe without psychotic features (2) PTSD (post-traumatic stress disorder): Status: Inactive Code(s): F43.10 - Post-traumatic stress disorder, unspecified (3) MSSA bacteremia: Status: Acute Code(s): R78.81 - Bacteremia; B95.61 - Methicillin susceptible Staphylococcus aureus infection as the cause of diseases classified elsewhere (4) Alcoholic hepatitis: Status: Resolved Code(s): K70.10 - Alcoholic hepatitis without ascites (5) Decompensation of cirrhosis of liver: Status: Inactive Code(s): K72.90 - Hepatic failure, unspecified without coma; K74.60 - Unspecified cirrhosis of liver (6) Opioid dependence: Status: Inactive Code(s): F11.20 - Opioid dependence, uncomplicated (7) COPD (chronic obstructive pulmonary disease): Status: Inactive Code(s): J44.9 - Chronic obstructive pulmonary disease, unspecified (8) HIV infection: Status: Inactive Code(s): B20 - Human immunodeficiency virus [HIV] disease (9) Cocaine abuse: Status: Inactive Code(s): F14.10 - Cocaine abuse, uncomplicated (10) Alcohol use disorder: Status: Inactive Code(s): F10.90 - Alcohol use, unspecified, uncomplicated Plan HPI: Patient is a 59-year-old male with history of depression, PTSD, opiate/alcohol dependence, HIV, alcohol hepatitis, hep C, portal hypotension/ascites, COPD who was transferred from the medical floor to [facility] for SI, following treatment for MSSA bacteremia, currently on IV antibiotics. Patient was being treated for MSSA bacteremia for several weeks on the hospital floor during which time he also developed: 1.encephalopathy from elevated liver enzymes/ammonia (resolved now on lactulose and rifaximin) 2.small-bowel obstruction, resolved with conservative treatment 3.Aspiration pneumonia, resolving 4.DELMI, resolved 5.Recurrent ascites with paracentesis x2 While on medical floor, patient was accepted to a sniff but left AMA; he came back the next day was admitted again and reported SI to jump off a bridge. Patient says that is mind was not right to tolerate going to a sniff so he left AMA, quickly finding himself depressed and walked over to a bridge, thinking of jumping; he says he saw the face of his sister who said come join me... Patient however self presented to the hospital, not wanting to and citing several protective factors including seeing certain family members grow up. Currently not suicidal Hospital course: 03/22 Patient reports that he is overall okay; no SI. Tired but pushing himself to get up and move around. agrees to remain at [facility] given longevity there and strong rapport with providers there. -initially going to go to SNF for physical therapy in addition to PICC line/antibiotics. Reached out to physical therapy who will re-evaluate patient next week. Of note patient left the hospital AMA and was walking around on his own quite some distance before he decided to return to the hospital. PLAN: CV Q 15 minute checks Bictegravir/Emtricitabine/Tenofovir (Bictegrav/Emtricit/Tenofov Ala Tablet) 1 tab PO DAILY [facility] Buprenorphine/Naloxone (Buprenorphine/Naloxone 8/2 Mg Film) 1 film SUBLINGUAL TID [facility] Bupropion HCl (Bupropion Hcl Xl 150 Mg Tab.Er.24h) 150 mg PO BID@0900,1500 [facility] Buspirone HCl (Buspirone Hcl 10 Mg Tablet) 10 mg PO BID [facility] Buspirone HCl (Buspirone Hcl 5 Mg Tablet) 15 mg PO BID [facility] Clopidogrel Bisulfate (Clopidogrel Bisulfate 75 Mg Tablet) 75 mg PO DAILY [facility] Empagliflozin (Empagliflozin 10 Mg Tablet) 10 mg PO DAILY [facility] Fluticasone/Vilanterol (Fluticasone/Vilanterol 100/25 Blst.W.Dev) 1 puff INHALE DAILY [facility] Folic Acid 1 mg PO DAILY [facility] Cefazolin Sodium/Dextrose (Ancef) 2 gm in 50 mls @ 100 mls/hr IV Q8H [facility] Lactulose (Lactulose 20 Gm/30 Ml Solution) 20 gm PO TID [facility] Melatonin (Melatonin 3 Mg Tablet) 6 mg PO BEDTIME PRN Ondansetron HCl Pantoprazole Sodium (Pantoprazole Sodium 20 Mg Tablet.Dr) 40 mg PO DAILY@0630 [facility] Rifaximin (Rifaximin 550 Mg Tablet) 550 mg PO BID [facility] Sodium Chloride (0.9 % Sodium Chloride Flush 3 Ml Syringe) 3 ml IVFLUSH QSHIFT [facility] Thiamine HCl (Thiamine Hcl 100 Mg Tablet) 100 mg PO DAILY [facility] Gabapentin 100 mg t.i.d. Oxycodone HCl 5 mg PO daily prn Quetiapine Fumarate 50 mg PO BEDTIME [facility] Furosemide 20 mg daily Insulin sliding scale At discharge, will need to follow-up appointments for: Infectious disease GI Psychiatry 1. Seroquel was been increased up to 100 mg p.o. q.h.s. to target mood lability. At this point we are not planning to increased anymore until his medical condition improves. 2. We will assess for the possibility of group home facility subacute rehab 3. Continue on same medications, blood work of April 02 came back with no changes. 4. Seroquel increased up to 200 mg p.o. q.h.s. on April 02 Reason for continued inpatient stay Substantial Risk for: inability to function, rapid decompensation and med/psych decompensation Time Spent With Patient Time: Total time managing care of this patient today __20__ minutes.
[2024-04-02] MEDS: Melatonin 3 MG TABLET PO (19:48)
[2024-04-02] MEDS: QUEtiapine Fumarate 200 MG TABLET PO (19:49)
[2024-04-02 20:00] VITALS: BP 110/69; PULSE 86; RESP 20; TEMP 36.3; O2SAT 92
[2024-04-02] MEDS: Insulin Lispro 100 UNIT/ML 3 ML VIAL SUBCUT (20:04)
[2024-04-02 20:11] LABS: Glucose, Whole Blood 204 mg/dL (60-115)
--- NOTE | 2024-04-02 21:31 | PC.NURSE ---
abdomen 50 inches 04/02/24. patient uncomfortable with head of bed up 45 degrees, reports no discomfort 30 or < degrees
[2024-04-03] MEDS: Pantoprazole Sodium 20 MG TABLET.DR 40 MG PO (05:49)
[2024-04-03] MEDS: 0.9 % Sodium Chloride Flush 10 ML SYRINGE 5 ML IVFLUSH ×3 (05:49→20:12)
[2024-04-03 06:52] LABS: Glucose, Whole Blood 102 mg/dL (60-115)
[2024-04-03 08:00] VITALS: BP 115/70; PULSE 78; RESP 17; TEMP 36.6; O2SAT 92
[2024-04-03] MEDS: Lactulose 20 GM/30 ML SOLUTION PO ×2 (08:32→20:07)
[2024-04-03] MEDS: Empagliflozin 10 MG TABLET PO (08:33)
[2024-04-03] MEDS: busPIRone HCl 10 MG TABLET PO ×2 (08:33→20:08)
[2024-04-03] MEDS: Buprenorphine/Naloxone 8/2 mg FILM 1 FILM SUBLINGUAL ×3 (08:33→20:07)
[2024-04-03] MEDS: busPIRone HCl 5 MG TABLET 15 MG PO ×2 (08:33→20:07)
[2024-04-03] MEDS: Gabapentin 100 MG CAPSULE PO ×3 (08:33→20:20)
[2024-04-03] MEDS: Clopidogrel Bisulfate 75 MG TABLET PO (08:33)
[2024-04-03] MEDS: Thiamine HCL 100 MG TABLET PO (08:34)
[2024-04-03] MEDS: Furosemide 20 MG TABLET PO (08:34)
[2024-04-03] MEDS: Bictegrav/Emtricit/Tenofov Ala TABLET 1 TAB PO (08:34)
[2024-04-03] MEDS: Folic Acid 1 MG TABLET PO (08:34)
[2024-04-03] MEDS: buPROPion HCl XL 150 MG TAB.ER.24H PO ×2 (08:34→14:32)
[2024-04-03] MEDS: Fluticasone/Vilanterol 100/25 BLST.W.DEV 1 PUFF INHALE (08:57)
[2024-04-03] MEDS: oxyCODONE HCl Immed Release 5 MG TABLET PO ×2 (08:57→20:08)
--- NOTE | 2024-04-03 13:38 | P.PNPSI_ITS ---
Subjective Subjective Date of Service: 04/03/24 Reason For Visit: SI depression Subjective Notes: Conditional Voluntary Interim History: The nursing staff reported the patient had been less depressed, compliant with treatment, no new symptoms. On interview the patient reported that he slept better with the increase of Seroquel. He reported improvement of his mood. Mental Status Exam Mental Status Exam Patient Appearance: Appropriate Patient Orientation: Person and Situation Level of Consciousness: Awake and Appropriate Patient Behavior: Guarded and Passive Mood Description: Calm Affect Description: Constricted Ability to Follow Directions: Good Speech Pattern: Clear Hallucinations: None Delusions: Not Present Thought Process: Distracted and Slowed Thinking Thought Content: positive for [place] and positive for Poverty of Content Judgement: Fair Diagnostics Vital Signs (24Hr): Vital Signs - 24 hr 04/02/24 20:00 04/03/24 08:00 Temperature 97.3 F 98 F Pulse Rate 86 78 Respiratory Rate 20 17 Blood Pressure 110/69 115/70 Pulse Oximetry 92 92 Oxygen Delivery Method Room Air Room Air BMI result Body Mass Index 24.2 Labs 04/02/24 13:28 04/02/24 08:16 Labs: Laboratory Results - last 48 hr 04/01/24 04/02/24 04/02/24 19:56 06:40 08:16 WBC RBC Hgb Hct MCV MCH MCHC RDW Plt Count MPV Immature Gran % (Auto) Neut % (Auto) Lymph % (Auto) [place] % (Auto) Eos % (Auto) Baso % (Auto) Lymph # (Auto) [place] # (Auto) Eos # (Auto) Baso # (Auto) Abs Immat Gran (auto) Absolute Neuts (auto) Absolute Nucleated RBC Nucleated RBC % (auto) Sodium 129 L Potassium 4.6 Chloride 101 Carbon Dioxide 21 L Anion Gap 12 BUN 12 Creatinine 0.78 Estim Creat Clear Calc 116.6 Estimated GFR > 60 POC Glucose 118 H 91 Random Glucose 137 H Estimat Average Glucose 91 Hemoglobin A1c % 4.8 Calcium 7.5 L Total Bilirubin 2.2 H Direct Bilirubin 0.9 H AST 70 H ALT 10 Alkaline Phosphatase 205 H Total Protein 6.4 L Albumin 1.9 L 04/02/24 04/02/24 04/03/24 13:28 19:43 06:46 WBC 13.4 H RBC 3.87 L Hgb 13.1 L Hct 37.9 L MCV 97.9 MCH 33.9 H MCHC 34.6 RDW 13.4 Plt Count 194 MPV 10.4 Immature Gran % (Auto) 1.0 H Neut % (Auto) 76.0 H Lymph % (Auto) 11.0 L [place] % (Auto) 10.0 Eos % (Auto) 1.3 Baso % (Auto) 0.7 Lymph # (Auto) 1.5 [place] # (Auto) 1.3 H Eos # (Auto) 0.2 Baso # (Auto) 0.1 Abs Immat Gran (auto) 0.14 H Absolute Neuts (auto) 10.1 H Absolute Nucleated RBC 0.000 Nucleated RBC % (auto) 0.0 Sodium Potassium Chloride Carbon Dioxide Anion Gap BUN Creatinine Estim Creat Clear Calc Estimated GFR POC Glucose 204 H 102 Random Glucose Estimat Average Glucose Hemoglobin A1c % Calcium Total Bilirubin Direct Bilirubin AST ALT Alkaline Phosphatase Total Protein Albumin Imaging Radiology Impressions: ITS Impressions Abdomen Ultrasound 03/29/24 09:20 IMPRESSION: Moderate ascites. Medications Medications Current Medications Al Hydroxide/Mg Hydroxide (Magnesium Hydrox/Alum Hydrox 30 Ml Oral.Susp) 30 ml PO Q6H PRN PRN Reason: Heartburn/Nausea Last Admin: 03/26/24 08:57 Dose: 30 ml Bictegravir/Emtricitabine/Tenofovir (Bictegrav/Emtricit/Tenofov Ala Tablet) 1 tab PO DAILY [facility] Last Admin: 04/03/24 08:34 Dose: 1 tab Buprenorphine/Naloxone (Buprenorphine/Naloxone 8/2 Mg Film) 1 film SUBLINGUAL TID [facility] Last Admin: 04/03/24 08:33 Dose: 1 film Bupropion HCl (Bupropion Hcl Xl 150 Mg Tab.Er.24h) 150 mg PO BID@0900,1500 [facility] Last Admin: 04/03/24 08:34 Dose: 150 mg Buspirone HCl (Buspirone Hcl 10 Mg Tablet) 10 mg PO BID [facility] Last Admin: 04/03/24 08:33 Dose: 10 mg Buspirone HCl (Buspirone Hcl 5 Mg Tablet) 15 mg PO BID [facility] Last Admin: 04/03/24 08:33 Dose: 15 mg Clopidogrel Bisulfate (Clopidogrel Bisulfate 75 Mg Tablet) 75 mg PO DAILY [facility] Last Admin: 04/03/24 08:33 Dose: 75 mg Empagliflozin (Empagliflozin 10 Mg Tablet) 10 mg PO DAILY [facility] Last Admin: 04/03/24 08:33 Dose: 10 mg Fluticasone/Vilanterol (Fluticasone/Vilanterol 100/25 Blst.W.Dev) 1 puff INHALE RDAILY [facility] Last Admin: 04/03/24 08:57 Dose: 1 puff Folic Acid (Folic Acid 1 Mg Tablet) 1 mg PO DAILY [facility] Last Admin: 04/03/24 08:34 Dose: 1 mg Furosemide (Furosemide 20 Mg Tablet) 20 mg PO DAILY [facility]; Protocol Last Admin: 04/03/24 08:34 Dose: 20 mg Gabapentin (Gabapentin 100 Mg Capsule) 100 mg PO TID [facility] Last Admin: 04/03/24 08:33 Dose: 100 mg Hydroxyzine HCl (Hydroxyzine Hcl 25 Mg Tablet) 25 mg PO Q6H PRN PRN Reason: Anxiety Last Admin: 03/21/24 22:07 Dose: 25 mg Insulin Human Lispro (Insulin Lispro 100 Unit/Ml 3 Ml Vial) 0 unit SUBCUT BID [facility]; Protocol Last Admin: 04/03/24 08:51 Dose: Not Given Lactulose (Lactulose 20 Gm/30 Ml Solution) 20 gm PO BID [facility] Last Admin: 04/03/24 08:32 Dose: 20 gm Magnesium Hydroxide (Milk Of Magnesia 30 Ml Oral.Susp) 30 ml PO DAILY PRN PRN Reason: Constipation Melatonin (Melatonin 3 Mg Tablet) 3 mg PO BEDTIME [facility] Last Admin: 04/02/24 19:48 Dose: 3 mg Nicotine (Nicotine 21 Mg Patch.Td24) 21 mg TRANSDERMA DAILY PRN PRN Reason: nicotine cravings Nicotine Polacrilex (Nicotine Polacrilex 2 Mg Gum) 4 mg BUCCAL Q2H PRN PRN Reason: Nicotine Cravings Oxycodone HCl (Oxycodone Hcl Immed Release 5 Mg Tablet) 5 mg PO BID PRN PRN Reason: severe pain Last Admin: 04/03/24 08:57 Dose: 5 mg Pantoprazole Sodium (Pantoprazole Sodium 20 Mg Tablet.Dr) 40 mg PO DAILY@0630 [facility] Last Admin: 04/03/24 05:49 Dose: 40 mg Quetiapine Fumarate (Quetiapine Fumarate 200 Mg Tablet) 200 mg PO BEDTIME [facility] Last Admin: 04/02/24 19:49 Dose: 200 mg Sodium Chloride (0.9 % Sodium Chloride Flush 10 Ml Syringe) 5 ml IVFLUSH TID@0500,1300,2100 [facility] Last Admin: 04/03/24 12:27 Dose: 5 ml Thiamine HCl (Thiamine Hcl 100 Mg Tablet) 100 mg PO DAILY [facility] Last Admin: 04/03/24 08:34 Dose: 100 mg Trazodone HCl (Trazodone Hcl 50 Mg Tablet) 50 mg PO BEDTIME MRX1 PRN PRN Reason: Insomnia Last Admin: 03/28/24 19:54 Dose: 50 mg Allergies Allergies Allergy/AdvReac Type Severity Reaction Status Date / Time ketorolac [From Toradol] AdvReac Itching Verified 03/16/24 19:06 Assessment & Plan Assessment & Plan (1) MDD (major depressive disorder), recurrent severe, without psychosis: Status: Inactive Code(s): F33.2 - Major depressive disorder, recurrent severe without psychotic features (2) PTSD (post-traumatic stress disorder): Status: Inactive Code(s): F43.10 - Post-traumatic stress disorder, unspecified (3) MSSA bacteremia: Status: Acute Code(s): R78.81 - Bacteremia; B95.61 - Methicillin susceptible Staphylococcus aureus infection as the cause of diseases classified elsewhere (4) Alcoholic hepatitis: Status: Resolved Code(s): K70.10 - Alcoholic hepatitis without ascites (5) Decompensation of cirrhosis of liver: Status: Inactive Code(s): K72.90 - Hepatic failure, unspecified without coma; K74.60 - Unspecified cirrhosis of liver (6) Opioid dependence: Status: Inactive Code(s): F11.20 - Opioid dependence, uncomplicated (7) COPD (chronic obstructive pulmonary disease): Status: Inactive Code(s): J44.9 - Chronic obstructive pulmonary disease, unspecified (8) HIV infection: Status: Inactive Code(s): B20 - Human immunodeficiency virus [HIV] disease (9) Cocaine abuse: Status: Inactive Code(s): F14.10 - Cocaine abuse, uncomplicated (10) Alcohol use disorder: Status: Inactive Code(s): F10.90 - Alcohol use, unspecified, uncomplicated Plan HPI: Patient is a 59-year-old male with history of depression, PTSD, opiate/alcohol dependence, HIV, alcohol hepatitis, hep C, portal hypotension/ascites, COPD who was transferred from the medical floor to [facility] for SI, following treatment for MSSA bacteremia, currently on IV antibiotics. Patient was being treated for MSSA bacteremia for several weeks on the hospital floor during which time he also developed: 1.encephalopathy from elevated liver enzymes/ammonia (resolved now on lactulose and rifaximin) 2.small-bowel obstruction, resolved with conservative treatment 3.Aspiration pneumonia, resolving 4.DELMI, resolved 5.Recurrent ascites with paracentesis x2 While on medical floor, patient was accepted to a sniff but left AMA; he came back the next day was admitted again and reported SI to jump off a bridge. Patient says that is mind was not right to tolerate going to a sniff so he left AMA, quickly finding himself depressed and walked over to a bridge, thinking of jumping; he says he saw the face of his sister who said come join me... Patient however self presented to the hospital, not wanting to and citing several protective factors including seeing certain family members grow up. Currently not suicidal Hospital course: 03/22 Patient reports that he is overall okay; no SI. Tired but pushing himself to get up and move around. agrees to remain at [facility] given longevity there and strong rapport with providers there. -initially going to go to SNF for physical therapy in addition to PICC line/antibiotics. Reached out to physical therapy who will re-evaluate patient next week. Of note patient left the hospital AMA and was walking around on his own quite some distance before he decided to return to the hospital. PLAN: CV Q 15 minute checks Bictegravir/Emtricitabine/Tenofovir (Bictegrav/Emtricit/Tenofov Ala Tablet) 1 tab PO DAILY [facility] Buprenorphine/Naloxone (Buprenorphine/Naloxone 8/2 Mg Film) 1 film SUBLINGUAL TID [facility] Bupropion HCl (Bupropion Hcl Xl 150 Mg Tab.Er.24h) 150 mg PO BID@0900,1500 [facility] Buspirone HCl (Buspirone Hcl 10 Mg Tablet) 10 mg PO BID [facility] Buspirone HCl (Buspirone Hcl 5 Mg Tablet) 15 mg PO BID [facility] Clopidogrel Bisulfate (Clopidogrel Bisulfate 75 Mg Tablet) 75 mg PO DAILY [facility] Empagliflozin (Empagliflozin 10 Mg Tablet) 10 mg PO DAILY [facility] Fluticasone/Vilanterol (Fluticasone/Vilanterol 100/25 Blst.W.Dev) 1 puff INHALE DAILY [facility] Folic Acid 1 mg PO DAILY [facility] Cefazolin Sodium/Dextrose (Ancef) 2 gm in 50 mls @ 100 mls/hr IV Q8H [facility] Lactulose (Lactulose 20 Gm/30 Ml Solution) 20 gm PO TID [facility] Melatonin (Melatonin 3 Mg Tablet) 6 mg PO BEDTIME PRN Ondansetron HCl Pantoprazole Sodium (Pantoprazole Sodium 20 Mg Tablet.Dr) 40 mg PO DAILY@0630 [facility] Rifaximin (Rifaximin 550 Mg Tablet) 550 mg PO BID [facility] Sodium Chloride (0.9 % Sodium Chloride Flush 3 Ml Syringe) 3 ml IVFLUSH QSHIFT [facility] Thiamine HCl (Thiamine Hcl 100 Mg Tablet) 100 mg PO DAILY [facility] Gabapentin 100 mg t.i.d. Oxycodone HCl 5 mg PO daily prn Quetiapine Fumarate 50 mg PO BEDTIME [facility] Furosemide 20 mg daily Insulin sliding scale At discharge, will need to follow-up appointments for: Infectious disease GI Psychiatry 1. Seroquel was been increased up to 100 mg p.o. q.h.s. to target mood lability. At this point we are not planning to increased anymore until his medical condition improves. 2. We will assess for the possibility of correction facility subacute rehab 3. Continue on same medications, blood work of April 02 came back with no changes. 4. Seroquel increased up to 200 mg p.o. q.h.s. on April 02 since there were no changes on his blood work. Reason for continued inpatient stay Substantial Risk for: inability to function, rapid decompensation and med/psych decompensation Time Spent With Patient Time: Total time managing care of this patient today _20___ minutes.
[2024-04-03 19:45] LABS: Glucose, Whole Blood 125 mg/dL (60-115)
[2024-04-03 20:00] VITALS: BP 102/57; PULSE 77; RESP 16; TEMP 36.4; O2SAT 95
[2024-04-03] MEDS: QUEtiapine Fumarate 200 MG TABLET PO (20:08)
[2024-04-03] MEDS: Melatonin 3 MG TABLET PO (20:08)
[2024-04-04] MEDS: 0.9 % Sodium Chloride Flush 10 ML SYRINGE 5 ML IVFLUSH ×3 (05:43→20:16)
[2024-04-04] MEDS: Pantoprazole Sodium 20 MG TABLET.DR 40 MG PO (05:44)
[2024-04-04 06:43] LABS: Glucose, Whole Blood 106 mg/dL (60-115)
[2024-04-04 08:00] VITALS: BP 119/67; PULSE 75; RESP 16; TEMP 36.5; O2SAT 93
[2024-04-04] MEDS: Gabapentin 100 MG CAPSULE PO ×3 (08:25→20:06)
[2024-04-04] MEDS: Empagliflozin 10 MG TABLET PO (08:26)
[2024-04-04] MEDS: busPIRone HCl 10 MG TABLET PO ×2 (08:26→20:08)
[2024-04-04] MEDS: Clopidogrel Bisulfate 75 MG TABLET PO (08:26)
[2024-04-04 08:27] VITALS: BP 119/67
[2024-04-04] MEDS: Furosemide 20 MG TABLET PO (08:27)
[2024-04-04] MEDS: Folic Acid 1 MG TABLET PO (08:27)
[2024-04-04] MEDS: Thiamine HCL 100 MG TABLET PO (08:28)
[2024-04-04] MEDS: buPROPion HCl XL 150 MG TAB.ER.24H PO ×2 (08:28→15:41)
[2024-04-04] MEDS: Bictegrav/Emtricit/Tenofov Ala TABLET 1 TAB PO (08:28)
[2024-04-04] MEDS: Lactulose 20 GM/30 ML SOLUTION PO ×2 (08:29→20:08)
[2024-04-04] MEDS: Buprenorphine/Naloxone 8/2 mg FILM 1 FILM SUBLINGUAL ×3 (08:30→20:05)
[2024-04-04] MEDS: oxyCODONE HCl Immed Release 5 MG TABLET PO ×2 (08:38→20:06)
[2024-04-04] MEDS: Fluticasone/Vilanterol 100/25 BLST.W.DEV 1 PUFF INHALE (08:38)
[2024-04-04] MEDS: busPIRone HCl 5 MG TABLET 15 MG PO ×2 (08:39→20:07)
[2024-04-04 09:57] VITALS: BMI 23.2
--- NOTE | 2024-04-04 14:06 | HO.PSYCHPN ---
Subjective Subjective Date of Service: 04/04/24 Reason For Visit: SI depression Subjective Notes: Conditional Voluntary Interim History: The patient had been fully compliant with treatment, he reported that he is feeling better, he took PRN Oxycodone, slept 8h. The psych social worker reported that he has been denied form 29 facilities, still searching for proper disposition. On interview, he reports feeling much better, no side effects. Mental Status Exam Mental Status Exam Patient Appearance: Appropriate Patient Orientation: Person and Situation Level of Consciousness: Awake and Appropriate Patient Behavior: Guarded and Passive Mood Description: Withdrawn Affect Description: Constricted Patient Cognition Impaired: Yes Ability to Follow Directions: Good Speech Pattern: Clear Hallucinations: None Delusions: Not Present Thought Process: Distracted and Slowed Thinking Thought Content: positive for [place] and positive for Poverty of Content Judgement: Fair Diagnostics Vital Signs (24Hr): Vital Signs - 24 hr 04/03/24 20:00 04/04/24 08:00 04/04/24 08:27 Temperature 97.5 F 97.7 F Pulse Rate 77 75 Respiratory Rate 16 16 Blood Pressure 102/57 L 119/67 119/67 Pulse Oximetry 95 93 Oxygen Delivery Method Room Air Room Air BMI result Body Mass Index 23.2 Labs 04/02/24 13:28 04/02/24 08:16 Labs: Laboratory Results - last 48 hr 04/02/24 04/03/24 04/03/24 19:43 06:46 19:40 POC Glucose 204 H 102 125 H 04/04/24 06:32 POC Glucose 106 Imaging Radiology Impressions: ITS Impressions Abdomen Ultrasound 03/29/24 09:20 IMPRESSION: Moderate ascites. Medications Medications Current Medications Al Hydroxide/Mg Hydroxide (Magnesium Hydrox/Alum Hydrox 30 Ml Oral.Susp) 30 ml PO Q6H PRN PRN Reason: Heartburn/Nausea Last Admin: 03/26/24 08:57 Dose: 30 ml Bictegravir/Emtricitabine/Tenofovir (Bictegrav/Emtricit/Tenofov Ala Tablet) 1 tab PO DAILY [facility] Last Admin: 04/04/24 08:28 Dose: 1 tab Buprenorphine/Naloxone (Buprenorphine/Naloxone 8/2 Mg Film) 1 film SUBLINGUAL TID [facility] Last Admin: 04/04/24 08:30 Dose: 1 film Bupropion HCl (Bupropion Hcl Xl 150 Mg Tab.Er.24h) 150 mg PO BID@0900,1500 [facility] Last Admin: 04/04/24 08:28 Dose: 150 mg Buspirone HCl (Buspirone Hcl 10 Mg Tablet) 10 mg PO BID [facility] Last Admin: 04/04/24 08:26 Dose: 10 mg Buspirone HCl (Buspirone Hcl 5 Mg Tablet) 15 mg PO BID [facility] Last Admin: 04/04/24 08:39 Dose: 15 mg Clopidogrel Bisulfate (Clopidogrel Bisulfate 75 Mg Tablet) 75 mg PO DAILY [facility] Last Admin: 04/04/24 08:26 Dose: 75 mg Empagliflozin (Empagliflozin 10 Mg Tablet) 10 mg PO DAILY [facility] Last Admin: 04/04/24 08:26 Dose: 10 mg Fluticasone/Vilanterol (Fluticasone/Vilanterol 100/25 Blst.W.Dev) 1 puff INHALE RDAILY [facility] Last Admin: 04/04/24 08:38 Dose: 1 puff Folic Acid (Folic Acid 1 Mg Tablet) 1 mg PO DAILY [facility] Last Admin: 04/04/24 08:27 Dose: 1 mg Furosemide (Furosemide 20 Mg Tablet) 20 mg PO DAILY [facility]; Protocol Last Admin: 04/04/24 08:27 Dose: 20 mg Gabapentin (Gabapentin 100 Mg Capsule) 100 mg PO TID [facility] Last Admin: 04/04/24 08:25 Dose: 100 mg Hydroxyzine HCl (Hydroxyzine Hcl 25 Mg Tablet) 25 mg PO Q6H PRN PRN Reason: Anxiety Last Admin: 03/21/24 22:07 Dose: 25 mg Insulin Human Lispro (Insulin Lispro 100 Unit/Ml 3 Ml Vial) 0 unit SUBCUT BID [facility]; Protocol Last Admin: 04/04/24 08:30 Dose: Not Given Lactulose (Lactulose 20 Gm/30 Ml Solution) 20 gm PO BID [facility] Last Admin: 04/04/24 08:29 Dose: 20 gm Magnesium Hydroxide (Milk Of Magnesia 30 Ml Oral.Susp) 30 ml PO DAILY PRN PRN Reason: Constipation Melatonin (Melatonin 3 Mg Tablet) 3 mg PO BEDTIME [facility] Last Admin: 04/03/24 20:08 Dose: 3 mg Nicotine (Nicotine 21 Mg Patch.Td24) 21 mg TRANSDERMA DAILY PRN PRN Reason: nicotine cravings Nicotine Polacrilex (Nicotine Polacrilex 2 Mg Gum) 4 mg BUCCAL Q2H PRN PRN Reason: Nicotine Cravings Oxycodone HCl (Oxycodone Hcl Immed Release 5 Mg Tablet) 5 mg PO BID PRN PRN Reason: severe pain Last Admin: 04/04/24 08:38 Dose: 5 mg Pantoprazole Sodium (Pantoprazole Sodium 20 Mg Tablet.Dr) 40 mg PO DAILY@0630 [facility] Last Admin: 04/04/24 05:44 Dose: 40 mg Quetiapine Fumarate (Quetiapine Fumarate 200 Mg Tablet) 200 mg PO BEDTIME [facility] Last Admin: 04/03/24 20:08 Dose: 200 mg Sodium Chloride (0.9 % Sodium Chloride Flush 10 Ml Syringe) 5 ml IVFLUSH TID@0500,1300,2100 [facility] Last Admin: 04/04/24 12:59 Dose: 5 ml Thiamine HCl (Thiamine Hcl 100 Mg Tablet) 100 mg PO DAILY [facility] Last Admin: 04/04/24 08:28 Dose: 100 mg Trazodone HCl (Trazodone Hcl 50 Mg Tablet) 50 mg PO BEDTIME MRX1 PRN PRN Reason: Insomnia Last Admin: 03/28/24 19:54 Dose: 50 mg Allergies Allergies Allergy/AdvReac Type Severity Reaction Status Date / Time ketorolac [From Toradol] AdvReac Itching Verified 03/16/24 19:06 Assessment & Plan Assessment & Plan (1) MDD (major depressive disorder), recurrent severe, without psychosis: Status: Inactive Code(s): F33.2 - Major depressive disorder, recurrent severe without psychotic features (2) PTSD (post-traumatic stress disorder): Status: Inactive Code(s): F43.10 - Post-traumatic stress disorder, unspecified (3) MSSA bacteremia: Status: Acute Code(s): R78.81 - Bacteremia; B95.61 - Methicillin susceptible Staphylococcus aureus infection as the cause of diseases classified elsewhere (4) Alcoholic hepatitis: Status: Resolved Code(s): K70.10 - Alcoholic hepatitis without ascites (5) Decompensation of cirrhosis of liver: Status: Inactive Code(s): K72.90 - Hepatic failure, unspecified without coma; K74.60 - Unspecified cirrhosis of liver (6) Opioid dependence: Status: Inactive Code(s): F11.20 - Opioid dependence, uncomplicated (7) COPD (chronic obstructive pulmonary disease): Status: Inactive Code(s): J44.9 - Chronic obstructive pulmonary disease, unspecified (8) HIV infection: Status: Inactive Code(s): B20 - Human immunodeficiency virus [HIV] disease (9) Cocaine abuse: Status: Inactive Code(s): F14.10 - Cocaine abuse, uncomplicated (10) Alcohol use disorder: Status: Inactive Code(s): F10.90 - Alcohol use, unspecified, uncomplicated Plan HPI: Patient is a 59-year-old male with history of depression, PTSD, opiate/alcohol dependence, HIV, alcohol hepatitis, hep C, portal hypotension/ascites, COPD who was transferred from the medical floor to [facility] for SI, following treatment for MSSA bacteremia, currently on IV antibiotics. Patient was being treated for MSSA bacteremia for several weeks on the hospital floor during which time he also developed: 1.encephalopathy from elevated liver enzymes/ammonia (resolved now on lactulose and rifaximin) 2.small-bowel obstruction, resolved with conservative treatment 3.Aspiration pneumonia, resolving 4.DELMI, resolved 5.Recurrent ascites with paracentesis x2 While on medical floor, patient was accepted to a sniff but left AMA; he came back the next day was admitted again and reported SI to jump off a bridge. Patient says that is mind was not right to tolerate going to a sniff so he left AMA, quickly finding himself depressed and walked over to a bridge, thinking of jumping; he says he saw the face of his sister who said come join me... Patient however self presented to the hospital, not wanting to and citing several protective factors including seeing certain family members grow up. Currently not suicidal Hospital course: 03/22 Patient reports that he is overall okay; no SI. Tired but pushing himself to get up and move around. agrees to remain at [facility] given longevity there and strong rapport with providers there. -initially going to go to SNF for physical therapy in addition to PICC line/antibiotics. Reached out to physical therapy who will re-evaluate patient next week. Of note patient left the hospital AMA and was walking around on his own quite some distance before he decided to return to the hospital. PLAN: CV Q 15 minute checks Bictegravir/Emtricitabine/Tenofovir (Bictegrav/Emtricit/Tenofov Ala Tablet) 1 tab PO DAILY [facility] Buprenorphine/Naloxone (Buprenorphine/Naloxone 8/2 Mg Film) 1 film SUBLINGUAL TID [facility] Bupropion HCl (Bupropion Hcl Xl 150 Mg Tab.Er.24h) 150 mg PO BID@0900,1500 [facility] Buspirone HCl (Buspirone Hcl 10 Mg Tablet) 10 mg PO BID [facility] Buspirone HCl (Buspirone Hcl 5 Mg Tablet) 15 mg PO BID [facility] Clopidogrel Bisulfate (Clopidogrel Bisulfate 75 Mg Tablet) 75 mg PO DAILY [facility] Empagliflozin (Empagliflozin 10 Mg Tablet) 10 mg PO DAILY [facility] Fluticasone/Vilanterol (Fluticasone/Vilanterol 100/25 Blst.W.Dev) 1 puff INHALE DAILY [facility] Folic Acid 1 mg PO DAILY [facility] Cefazolin Sodium/Dextrose (Ancef) 2 gm in 50 mls @ 100 mls/hr IV Q8H [facility] Lactulose (Lactulose 20 Gm/30 Ml Solution) 20 gm PO TID [facility] Melatonin (Melatonin 3 Mg Tablet) 6 mg PO BEDTIME PRN Ondansetron HCl Pantoprazole Sodium (Pantoprazole Sodium 20 Mg Tablet.Dr) 40 mg PO DAILY@0630 [facility] Rifaximin (Rifaximin 550 Mg Tablet) 550 mg PO BID [facility] Sodium Chloride (0.9 % Sodium Chloride Flush 3 Ml Syringe) 3 ml IVFLUSH QSHIFT [facility] Thiamine HCl (Thiamine Hcl 100 Mg Tablet) 100 mg PO DAILY [facility] Gabapentin 100 mg t.i.d. Oxycodone HCl 5 mg PO daily prn Quetiapine Fumarate 50 mg PO BEDTIME [facility] Furosemide 20 mg daily Insulin sliding scale At discharge, will need to follow-up appointments for: Infectious disease GI Psychiatry 1. Seroquel was been increased up to 100 mg p.o. q.h.s. to target mood lability. At this point we are not planning to increased anymore until his medical condition improves. 2. We will assess for the possibility of residential facility subacute rehab 3. Continue on same medications, blood work of April 02 came back with no changes. 4. Seroquel increased up to 200 mg p.o. q.h.s. on April 02 since there were no changes on his blood work. Reason for continued inpatient stay Substantial Risk for: inability to function, rapid decompensation and med/psych decompensation Time Spent With Patient Time: Total time managing care of this patient today __20__ minutes.
[2024-04-04 20:00] VITALS: BP 114/72; PULSE 76; RESP 18; TEMP 36
[2024-04-04 20:03] LABS: Glucose, Whole Blood 95 mg/dL (60-115)
[2024-04-04] MEDS: QUEtiapine Fumarate 200 MG TABLET PO (20:06)
[2024-04-04] MEDS: Melatonin 3 MG TABLET PO (20:07)
[2024-04-05] MEDS: Pantoprazole Sodium 20 MG TABLET.DR 40 MG PO (06:05)
[2024-04-05] MEDS: 0.9 % Sodium Chloride Flush 10 ML SYRINGE 5 ML IVFLUSH ×3 (06:05→19:47)
[2024-04-05 06:19] LABS: Glucose, Whole Blood 95 mg/dL (60-115)
[2024-04-05] MEDS: oxyCODONE HCl Immed Release 5 MG TABLET PO (06:47)
[2024-04-05 08:24] VITALS: BP 116/69
[2024-04-05] MEDS: Bictegrav/Emtricit/Tenofov Ala TABLET 1 TAB PO (08:24)
[2024-04-05] MEDS: Furosemide 20 MG TABLET PO (08:24)
[2024-04-05] MEDS: Fluticasone/Vilanterol 100/25 BLST.W.DEV 1 PUFF INHALE (08:24)
[2024-04-05 08:25] VITALS: BP 116/69; PULSE 78; RESP 20; TEMP 36.3; O2SAT 95
[2024-04-05] MEDS: buPROPion HCl XL 150 MG TAB.ER.24H PO ×2 (08:27→14:33)
[2024-04-05] MEDS: busPIRone HCl 10 MG TABLET PO ×2 (08:28→19:45)
[2024-04-05] MEDS: Thiamine HCL 100 MG TABLET PO (08:28)
[2024-04-05] MEDS: busPIRone HCl 5 MG TABLET 15 MG PO ×2 (08:28→19:45)
[2024-04-05] MEDS: Gabapentin 100 MG CAPSULE PO ×3 (08:29→19:45)
[2024-04-05] MEDS: Clopidogrel Bisulfate 75 MG TABLET PO (08:29)
[2024-04-05] MEDS: Folic Acid 1 MG TABLET PO (08:29)
[2024-04-05] MEDS: Empagliflozin 10 MG TABLET PO (08:29)
[2024-04-05] MEDS: Buprenorphine/Naloxone 8/2 mg FILM 1 FILM SUBLINGUAL ×3 (08:30→19:44)
[2024-04-05] MEDS: Lactulose 20 GM/30 ML SOLUTION PO ×2 (08:38→19:45)
[2024-04-05 13:34] VITALS: BP 116/69; PULSE 78; O2SAT 95
--- NOTE | 2024-04-05 15:04 | HO.PSYCHPN ---
Subjective Subjective Date of Service: 04/05/24 Reason For Visit: SI depression Subjective Notes: Conditional Voluntary Interim History: The nursing staff reported the patient had been compliant with treatment, he received oxycodone PRNs pain. He admitted that his anxiety depression is 6/10 he had been pleasant and cooperative. He slept 8 hours. The social sciences lecturer reported that [facility] is looking into his chart. On interview the patient denies new symptoms, waiting for placement. Mental Status Exam Mental Status Exam Patient Appearance: Appropriate Patient Orientation: Person and Situation Level of Consciousness: Awake and Appropriate Patient Behavior: Appropriate and Cooperative Mood Description: Calm Affect Description: Constricted Patient Cognition Impaired: No Ability to Follow Directions: Good Speech Pattern: Clear Hallucinations: None Delusions: Not Present Thought Process: Distracted and Slowed Thinking Thought Content: positive for [place] and positive for Poverty of Content Judgement: Poor Diagnostics Vital Signs (24Hr): Vital Signs - 24 hr 04/04/24 20:00 04/05/24 08:24 04/05/24 08:25 Temperature 96.8 F 97.4 F Pulse Rate 76 78 Respiratory Rate 18 20 Blood Pressure 114/72 116/69 116/69 Pulse Oximetry 95 Oxygen Delivery Method Room Air Room Air 04/05/24 13:34 Temperature Pulse Rate 78 Respiratory Rate Blood Pressure 116/69 Pulse Oximetry 95 Oxygen Delivery Method BMI result Body Mass Index 23.2 Labs 04/02/24 13:28 04/02/24 08:16 Labs: Laboratory Results - last 48 hr 04/03/24 04/04/24 04/04/24 19:40 06:32 19:58 POC Glucose 125 H 106 95 04/05/24 06:14 POC Glucose 95 Imaging Radiology Impressions: ITS Impressions Abdomen Ultrasound 03/29/24 09:20 IMPRESSION: Moderate ascites. Medications Medications Current Medications Al Hydroxide/Mg Hydroxide (Magnesium Hydrox/Alum Hydrox 30 Ml Oral.Susp) 30 ml PO Q6H PRN PRN Reason: Heartburn/Nausea Last Admin: 03/26/24 08:57 Dose: 30 ml Bictegravir/Emtricitabine/Tenofovir (Bictegrav/Emtricit/Tenofov Ala Tablet) 1 tab PO DAILY [facility] Last Admin: 04/05/24 08:24 Dose: 1 tab Buprenorphine/Naloxone (Buprenorphine/Naloxone 8/2 Mg Film) 1 film SUBLINGUAL TID [facility] Last Admin: 04/05/24 14:34 Dose: 1 film Bupropion HCl (Bupropion Hcl Xl 150 Mg Tab.Er.24h) 150 mg PO BID@0900,1500 [facility] Last Admin: 04/05/24 14:33 Dose: 150 mg Buspirone HCl (Buspirone Hcl 10 Mg Tablet) 10 mg PO BID [facility] Last Admin: 04/05/24 08:28 Dose: 10 mg Buspirone HCl (Buspirone Hcl 5 Mg Tablet) 15 mg PO BID [facility] Last Admin: 04/05/24 08:28 Dose: 15 mg Clopidogrel Bisulfate (Clopidogrel Bisulfate 75 Mg Tablet) 75 mg PO DAILY [facility] Last Admin: 04/05/24 08:29 Dose: 75 mg Empagliflozin (Empagliflozin 10 Mg Tablet) 10 mg PO DAILY [facility] Last Admin: 04/05/24 08:29 Dose: 10 mg Fluticasone/Vilanterol (Fluticasone/Vilanterol 100/25 Blst.W.Dev) 1 puff INHALE RDAILY [facility] Last Admin: 04/05/24 08:24 Dose: 1 puff Folic Acid (Folic Acid 1 Mg Tablet) 1 mg PO DAILY [facility] Last Admin: 04/05/24 08:29 Dose: 1 mg Furosemide (Furosemide 20 Mg Tablet) 20 mg PO DAILY [facility]; Protocol Last Admin: 04/05/24 08:24 Dose: 20 mg Gabapentin (Gabapentin 100 Mg Capsule) 100 mg PO TID [facility] Last Admin: 04/05/24 14:34 Dose: 100 mg Hydroxyzine HCl (Hydroxyzine Hcl 25 Mg Tablet) 25 mg PO Q6H PRN PRN Reason: Anxiety Last Admin: 03/21/24 22:07 Dose: 25 mg Insulin Human Lispro (Insulin Lispro 100 Unit/Ml 3 Ml Vial) 0 unit SUBCUT BID [facility]; Protocol Last Admin: 04/05/24 08:30 Dose: Not Given Lactulose (Lactulose 20 Gm/30 Ml Solution) 20 gm PO BID [facility] Last Admin: 04/05/24 08:38 Dose: 20 gm Magnesium Hydroxide (Milk Of Magnesia 30 Ml Oral.Susp) 30 ml PO DAILY PRN PRN Reason: Constipation Melatonin (Melatonin 3 Mg Tablet) 3 mg PO BEDTIME [facility] Last Admin: 04/04/24 20:07 Dose: 3 mg Nicotine (Nicotine 21 Mg Patch.Td24) 21 mg TRANSDERMA DAILY PRN PRN Reason: nicotine cravings Nicotine Polacrilex (Nicotine Polacrilex 2 Mg Gum) 4 mg BUCCAL Q2H PRN PRN Reason: Nicotine Cravings Oxycodone HCl (Oxycodone Hcl Immed Release 5 Mg Tablet) 5 mg PO BID PRN PRN Reason: severe pain Last Admin: 04/05/24 06:47 Dose: 5 mg Pantoprazole Sodium (Pantoprazole Sodium 20 Mg Tablet.Dr) 40 mg PO DAILY@0630 [facility] Last Admin: 04/05/24 06:05 Dose: 40 mg Quetiapine Fumarate (Quetiapine Fumarate 200 Mg Tablet) 200 mg PO BEDTIME [facility] Last Admin: 04/04/24 20:06 Dose: 200 mg Sodium Chloride (0.9 % Sodium Chloride Flush 10 Ml Syringe) 5 ml IVFLUSH TID@0500,1300,2100 [facility] Last Admin: 04/05/24 13:43 Dose: 5 ml Thiamine HCl (Thiamine Hcl 100 Mg Tablet) 100 mg PO DAILY [facility] Last Admin: 04/05/24 08:28 Dose: 100 mg Trazodone HCl (Trazodone Hcl 50 Mg Tablet) 50 mg PO BEDTIME MRX1 PRN PRN Reason: Insomnia Last Admin: 03/28/24 19:54 Dose: 50 mg Allergies Allergies Allergy/AdvReac Type Severity Reaction Status Date / Time ketorolac [From Toradol] AdvReac Itching Verified 03/16/24 19:06 Assessment & Plan Assessment & Plan (1) MDD (major depressive disorder), recurrent severe, without psychosis: Status: Inactive Code(s): F33.2 - Major depressive disorder, recurrent severe without psychotic features (2) PTSD (post-traumatic stress disorder): Status: Inactive Code(s): F43.10 - Post-traumatic stress disorder, unspecified (3) MSSA bacteremia: Status: Acute Code(s): R78.81 - Bacteremia; B95.61 - Methicillin susceptible Staphylococcus aureus infection as the cause of diseases classified elsewhere (4) Alcoholic hepatitis: Status: Resolved Code(s): K70.10 - Alcoholic hepatitis without ascites (5) Decompensation of cirrhosis of liver: Status: Inactive Code(s): K72.90 - Hepatic failure, unspecified without coma; K74.60 - Unspecified cirrhosis of liver (6) Opioid dependence: Status: Inactive Code(s): F11.20 - Opioid dependence, uncomplicated (7) COPD (chronic obstructive pulmonary disease): Status: Inactive Code(s): J44.9 - Chronic obstructive pulmonary disease, unspecified (8) HIV infection: Status: Inactive Code(s): B20 - Human immunodeficiency virus [HIV] disease (9) Cocaine abuse: Status: Inactive Code(s): F14.10 - Cocaine abuse, uncomplicated (10) Alcohol use disorder: Status: Inactive Code(s): F10.90 - Alcohol use, unspecified, uncomplicated Plan HPI: Patient is a 59-year-old male with history of depression, PTSD, opiate/alcohol dependence, HIV, alcohol hepatitis, hep C, portal hypotension/ascites, COPD who was transferred from the medical floor to [facility] for SI, following treatment for MSSA bacteremia, currently on IV antibiotics. Patient was being treated for MSSA bacteremia for several weeks on the hospital floor during which time he also developed: 1.encephalopathy from elevated liver enzymes/ammonia (resolved now on lactulose and rifaximin) 2.small-bowel obstruction, resolved with conservative treatment 3.Aspiration pneumonia, resolving 4.DELMI, resolved 5.Recurrent ascites with paracentesis x2 While on medical floor, patient was accepted to a sniff but left AMA; he came back the next day was admitted again and reported SI to jump off a bridge. Patient says that is mind was not right to tolerate going to a sniff so he left AMA, quickly finding himself depressed and walked over to a bridge, thinking of jumping; he says he saw the face of his sister who said come join me... Patient however self presented to the hospital, not wanting to and citing several protective factors including seeing certain family members grow up. Currently not suicidal Hospital course: 03/22 Patient reports that he is overall okay; no SI. Tired but pushing himself to get up and move around. agrees to remain at [facility] given longevity there and strong rapport with providers there. -initially going to go to SNF for physical therapy in addition to PICC line/antibiotics. Reached out to physical therapy who will re-evaluate patient next week. Of note patient left the hospital AMA and was walking around on his own quite some distance before he decided to return to the hospital. PLAN: CV Q 15 minute checks Bictegravir/Emtricitabine/Tenofovir (Bictegrav/Emtricit/Tenofov Ala Tablet) 1 tab PO DAILY [facility] Buprenorphine/Naloxone (Buprenorphine/Naloxone 8/2 Mg Film) 1 film SUBLINGUAL TID [facility] Bupropion HCl (Bupropion Hcl Xl 150 Mg Tab.Er.24h) 150 mg PO BID@0900,1500 [facility] Buspirone HCl (Buspirone Hcl 10 Mg Tablet) 10 mg PO BID [facility] Buspirone HCl (Buspirone Hcl 5 Mg Tablet) 15 mg PO BID [facility] Clopidogrel Bisulfate (Clopidogrel Bisulfate 75 Mg Tablet) 75 mg PO DAILY [facility] Empagliflozin (Empagliflozin 10 Mg Tablet) 10 mg PO DAILY [facility] Fluticasone/Vilanterol (Fluticasone/Vilanterol 100/25 Blst.W.Dev) 1 puff INHALE DAILY [facility] Folic Acid 1 mg PO DAILY [facility] Cefazolin Sodium/Dextrose (Ancef) 2 gm in 50 mls @ 100 mls/hr IV Q8H [facility] Lactulose (Lactulose 20 Gm/30 Ml Solution) 20 gm PO TID [facility] Melatonin (Melatonin 3 Mg Tablet) 6 mg PO BEDTIME PRN Ondansetron HCl Pantoprazole Sodium (Pantoprazole Sodium 20 Mg Tablet.Dr) 40 mg PO DAILY@0630 [facility] Rifaximin (Rifaximin 550 Mg Tablet) 550 mg PO BID [facility] Sodium Chloride (0.9 % Sodium Chloride Flush 3 Ml Syringe) 3 ml IVFLUSH QSHIFT [facility] Thiamine HCl (Thiamine Hcl 100 Mg Tablet) 100 mg PO DAILY [facility] Gabapentin 100 mg t.i.d. Oxycodone HCl 5 mg PO daily prn Quetiapine Fumarate 50 mg PO BEDTIME [facility] Furosemide 20 mg daily Insulin sliding scale At discharge, will need to follow-up appointments for: Infectious disease GI Psychiatry 1. Seroquel was been increased up to 100 mg p.o. q.h.s. to target mood lability. At this point we are not planning to increased anymore until his medical condition improves. 2. We will assess for the possibility of [facility] subacute rehab 3. Continue on same medications, blood work of April 02 came back with no changes. 4. Seroquel increased up to 200 mg p.o. q.h.s. on April 02 since there were no changes on his blood work. 5. Waiting for placement Reason for continued inpatient stay Substantial Risk for: inability to function, rapid decompensation and med/psych decompensation Time Spent With Patient Time: Total time managing care of this patient today __20__ minutes.
[2024-04-05 19:33] LABS: Glucose, Whole Blood 135 mg/dL (60-115)
[2024-04-05 19:42] VITALS: BP 130/73; PULSE 80; RESP 16; TEMP 36.2; O2SAT 94
[2024-04-05] MEDS: Melatonin 3 MG TABLET PO (19:45)
[2024-04-05] MEDS: QUEtiapine Fumarate 200 MG TABLET PO (19:45)
[2024-04-06] MEDS: 0.9 % Sodium Chloride Flush 10 ML SYRINGE 5 ML IVFLUSH ×3 (05:31→20:00)
[2024-04-06] MEDS: Pantoprazole Sodium 20 MG TABLET.DR 40 MG PO (05:31)
[2024-04-06 06:52] LABS: Glucose, Whole Blood 94 mg/dL (60-115)
[2024-04-06] MEDS: Buprenorphine/Naloxone 8/2 mg FILM 1 FILM SUBLINGUAL ×3 (08:16→20:00)
[2024-04-06] MEDS: busPIRone HCl 10 MG TABLET PO ×2 (08:17→19:59)
[2024-04-06] MEDS: Clopidogrel Bisulfate 75 MG TABLET PO (08:21)
[2024-04-06] MEDS: buPROPion HCl XL 150 MG TAB.ER.24H PO ×2 (08:21→14:42)
[2024-04-06] MEDS: Thiamine HCL 100 MG TABLET PO (08:21)
[2024-04-06] MEDS: busPIRone HCl 5 MG TABLET 15 MG PO ×2 (08:21→19:59)
[2024-04-06] MEDS: Bictegrav/Emtricit/Tenofov Ala TABLET 1 TAB PO (08:21)
[2024-04-06] MEDS: Folic Acid 1 MG TABLET PO (08:21)
[2024-04-06 08:22] VITALS: BP 120/79; PULSE 80; RESP 18; TEMP 36.6; O2SAT 92
[2024-04-06] MEDS: Gabapentin 100 MG CAPSULE PO ×3 (08:23→20:00)
[2024-04-06] MEDS: Furosemide 20 MG TABLET PO (08:23)
[2024-04-06] MEDS: Lactulose 20 GM/30 ML SOLUTION PO ×2 (08:23→20:00)
[2024-04-06] MEDS: Empagliflozin 10 MG TABLET PO (08:23)
[2024-04-06] MEDS: Fluticasone/Vilanterol 100/25 BLST.W.DEV 1 PUFF INHALE (08:25)
--- NOTE | 2024-04-06 10:15 | P.PNPSI_ITS ---
Subjective Subjective Date of Service: 04/06/24 Reason For Visit: SI depression Subjective Notes: Conditional Voluntary Interim History: The nursing staff reported the patient had been compliant with treatment, he received oxycodone PRNs pain. He admitted that his anxiety depression is 6/10 he had been pleasant and cooperative. He slept 8 hours. The certified social workers in health care reported that [facility] looking [facility] his chart. On interview the patient denies new symptoms, waiting for placement. 04/06/24 Pt has been flat somewhat demoralized but future oriented pending placement Diagnostics Vital Signs (24Hr): Vital Signs - 24 hr 04/05/24 13:34 04/05/24 19:42 04/06/24 08:22 Temperature 97.2 F 97.9 F Pulse Rate 78 80 80 Respiratory Rate 16 18 Blood Pressure 116/69 130/73 120/79 Pulse Oximetry 95 94 92 Oxygen Delivery Method Room Air Room Air BMI result Body Mass Index 23.2 Labs 04/02/24 13:28 04/02/24 08:16 Labs: Laboratory Results - last 48 hr 04/04/24 04/05/24 04/05/24 19:58 06:14 19:28 POC Glucose 95 95 135 H 04/06/24 06:47 POC Glucose 94 Imaging Radiology Impressions: ITS Impressions Abdomen Ultrasound 03/29/24 09:20 IMPRESSION: Moderate ascites. Medications Medications Current Medications Al Hydroxide/Mg Hydroxide (Magnesium Hydrox/Alum Hydrox 30 Ml Oral.Susp) 30 ml PO Q6H PRN PRN Reason: Heartburn/Nausea Last Admin: 03/26/24 08:57 Dose: 30 ml Bictegravir/Emtricitabine/Tenofovir (Bictegrav/Emtricit/Tenofov Ala Tablet) 1 tab PO DAILY [facility] Last Admin: 04/06/24 08:21 Dose: 1 tab Buprenorphine/Naloxone (Buprenorphine/Naloxone 8/2 Mg Film) 1 film SUBLINGUAL TID [facility] Last Admin: 04/06/24 08:16 Dose: 1 film Bupropion HCl (Bupropion Hcl Xl 150 Mg Tab.Er.24h) 150 mg PO BID@0900,1500 [facility] Last Admin: 04/06/24 08:21 Dose: 150 mg Buspirone HCl (Buspirone Hcl 10 Mg Tablet) 10 mg PO BID [facility] Last Admin: 04/06/24 08:17 Dose: 10 mg Buspirone HCl (Buspirone Hcl 5 Mg Tablet) 15 mg PO BID [facility] Last Admin: 04/06/24 08:21 Dose: 15 mg Clopidogrel Bisulfate (Clopidogrel Bisulfate 75 Mg Tablet) 75 mg PO DAILY [facility] Last Admin: 04/06/24 08:21 Dose: 75 mg Empagliflozin (Empagliflozin 10 Mg Tablet) 10 mg PO DAILY [facility] Last Admin: 04/06/24 08:23 Dose: 10 mg Fluticasone/Vilanterol (Fluticasone/Vilanterol 100/25 Blst.W.Dev) 1 puff INHALE RDAILY [facility] Last Admin: 04/06/24 08:25 Dose: 1 puff Folic Acid (Folic Acid 1 Mg Tablet) 1 mg PO DAILY [facility] Last Admin: 04/06/24 08:21 Dose: 1 mg Furosemide (Furosemide 20 Mg Tablet) 20 mg PO DAILY [facility]; Protocol Last Admin: 04/06/24 08:23 Dose: 20 mg Gabapentin (Gabapentin 100 Mg Capsule) 100 mg PO TID [facility] Last Admin: 04/06/24 08:23 Dose: 100 mg Hydroxyzine HCl (Hydroxyzine Hcl 25 Mg Tablet) 25 mg PO Q6H PRN PRN Reason: Anxiety Last Admin: 03/21/24 22:07 Dose: 25 mg Insulin Human Lispro (Insulin Lispro 100 Unit/Ml 3 Ml Vial) 0 unit SUBCUT BID [facility]; Protocol Last Admin: 04/06/24 08:24 Dose: Not Given Lactulose (Lactulose 20 Gm/30 Ml Solution) 20 gm PO BID [facility] Last Admin: 04/06/24 08:23 Dose: 20 gm Magnesium Hydroxide (Milk Of Magnesia 30 Ml Oral.Susp) 30 ml PO DAILY PRN PRN Reason: Constipation Melatonin (Melatonin 3 Mg Tablet) 3 mg PO BEDTIME [facility] Last Admin: 04/05/24 19:45 Dose: 3 mg Nicotine (Nicotine 21 Mg Patch.Td24) 21 mg TRANSDERMA DAILY PRN PRN Reason: nicotine cravings Nicotine Polacrilex (Nicotine Polacrilex 2 Mg Gum) 4 mg BUCCAL Q2H PRN PRN Reason: Nicotine Cravings Oxycodone HCl (Oxycodone Hcl Immed Release 5 Mg Tablet) 5 mg PO BID PRN PRN Reason: severe pain Last Admin: 04/05/24 06:47 Dose: 5 mg Pantoprazole Sodium (Pantoprazole Sodium 20 Mg Tablet.Dr) 40 mg PO DAILY@0630 [facility] Last Admin: 04/06/24 05:31 Dose: 40 mg Quetiapine Fumarate (Quetiapine Fumarate 200 Mg Tablet) 200 mg PO BEDTIME [facility] Last Admin: 04/05/24 19:45 Dose: 200 mg Sodium Chloride (0.9 % Sodium Chloride Flush 10 Ml Syringe) 5 ml IVFLUSH TID@0500,1300,2100 [facility] Last Admin: 04/06/24 05:31 Dose: 5 ml Thiamine HCl (Thiamine Hcl 100 Mg Tablet) 100 mg PO DAILY [facility] Last Admin: 04/06/24 08:21 Dose: 100 mg Trazodone HCl (Trazodone Hcl 50 Mg Tablet) 50 mg PO BEDTIME MRX1 PRN PRN Reason: Insomnia Last Admin: 03/28/24 19:54 Dose: 50 mg Allergies Allergies Allergy/AdvReac Type Severity Reaction Status Date / Time ketorolac [From Toradol] AdvReac Itching Verified 03/16/24 19:06 Assessment & Plan Assessment & Plan (1) MDD (major depressive disorder), recurrent severe, without psychosis: Status: Inactive Code(s): F33.2 - Major depressive disorder, recurrent severe without psychotic features (2) PTSD (post-traumatic stress disorder): Status: Inactive Code(s): F43.10 - Post-traumatic stress disorder, unspecified (3) MSSA bacteremia: Status: Acute Code(s): R78.81 - Bacteremia; B95.61 - Methicillin susceptible Staphylococcus aureus infection as the cause of diseases classified elsewhere (4) Alcoholic hepatitis: Status: Resolved Code(s): K70.10 - Alcoholic hepatitis without ascites (5) Decompensation of cirrhosis of liver: Status: Inactive Code(s): K72.90 - Hepatic failure, unspecified without coma; K74.60 - Unspecified cirrhosis of liver (6) Opioid dependence: Status: Inactive Code(s): F11.20 - Opioid dependence, uncomplicated (7) COPD (chronic obstructive pulmonary disease): Status: Inactive Code(s): J44.9 - Chronic obstructive pulmonary disease, unspecified (8) HIV infection: Status: Inactive Code(s): B20 - Human immunodeficiency virus [HIV] disease (9) Cocaine abuse: Status: Inactive Code(s): F14.10 - Cocaine abuse, uncomplicated (10) Alcohol use disorder: Status: Inactive Code(s): F10.90 - Alcohol use, unspecified, uncomplicated Plan HPI: Patient is a 59-year-old male with history of depression, PTSD, opiate/alcohol dependence, HIV, alcohol hepatitis, hep C, portal hypotension/ascites, COPD who was transferred from the medical floor to [facility] for SI, following treatment for MSSA bacteremia, currently on IV antibiotics. Patient was being treated for MSSA bacteremia for several weeks on the hospital floor during which time he also developed: 1.encephalopathy from elevated liver enzymes/ammonia (resolved now on lactulose and rifaximin) 2.small-bowel obstruction, resolved with conservative treatment 3.Aspiration pneumonia, resolving 4.DELMI, resolved 5.Recurrent ascites with paracentesis x2 While on medical floor, patient was accepted to a sniff but left AMA; he came back the next day was admitted again and reported SI to jump off a bridge. Patient says that is mind was not right to tolerate going to a sniff so he left AMA, quickly finding himself depressed and walked over to a bridge, thinking of jumping; he says he saw the face of his sister who said come join me... Patient however self presented to the hospital, not wanting to and citing several protective factors including seeing certain family members grow up. Currently not suicidal Hospital course: 03/22 Patient reports that he is overall okay; no SI. Tired but pushing himself to get up and move around. agrees to remain at [facility] given longevity there and strong rapport with providers there. -initially going to go to SNF for physical therapy in addition to PICC line/antibiotics. Reached out to physical therapy who will re-evaluate patient next week. Of note patient left the hospital AMA and was walking around on his own quite some distance before he decided to return to the hospital. PLAN: CV Q 15 minute checks Bictegravir/Emtricitabine/Tenofovir (Bictegrav/Emtricit/Tenofov Ala Tablet) 1 tab PO DAILY [facility] Buprenorphine/Naloxone (Buprenorphine/Naloxone 8/2 Mg Film) 1 film SUBLINGUAL TID [facility] Bupropion HCl (Bupropion Hcl Xl 150 Mg Tab.Er.24h) 150 mg PO BID@0900,1500 [facility] Buspirone HCl (Buspirone Hcl 10 Mg Tablet) 10 mg PO BID [facility] Buspirone HCl (Buspirone Hcl 5 Mg Tablet) 15 mg PO BID [facility] Clopidogrel Bisulfate (Clopidogrel Bisulfate 75 Mg Tablet) 75 mg PO DAILY [facility] Empagliflozin (Empagliflozin 10 Mg Tablet) 10 mg PO DAILY [facility] Fluticasone/Vilanterol (Fluticasone/Vilanterol 100/25 Blst.W.Dev) 1 puff INHALE DAILY [facility] Folic Acid 1 mg PO DAILY [facility] Cefazolin Sodium/Dextrose (Ancef) 2 gm in 50 mls @ 100 mls/hr IV Q8H [facility] Lactulose (Lactulose 20 Gm/30 Ml Solution) 20 gm PO TID [facility] Melatonin (Melatonin 3 Mg Tablet) 6 mg PO BEDTIME PRN Ondansetron HCl Pantoprazole Sodium (Pantoprazole Sodium 20 Mg Tablet.Dr) 40 mg PO DAILY@0630 [facility] Rifaximin (Rifaximin 550 Mg Tablet) 550 mg PO BID [facility] Sodium Chloride (0.9 % Sodium Chloride Flush 3 Ml Syringe) 3 ml IVFLUSH QSHIFT [facility] Thiamine HCl (Thiamine Hcl 100 Mg Tablet) 100 mg PO DAILY [facility] Gabapentin 100 mg t.i.d. Oxycodone HCl 5 mg PO daily prn Quetiapine Fumarate 50 mg PO BEDTIME [facility] Furosemide 20 mg daily Insulin sliding scale At discharge, will need to follow-up appointments for: Infectious disease GI Psychiatry 1. Seroquel was been increased up to 100 mg p.o. q.h.s. to target mood lability. At this point we are not planning to increased anymore until his medical condition improves. 2. We will assess for the possibility of [facility] facility subacute rehab 3. Continue on same medications, blood work of April 02 came back with no changes. 4. Seroquel increased up to 200 mg p.o. q.h.s. on April 02 since there were no changes on his blood work. 5. Waiting for placement Reason for continued inpatient stay Substantial Risk for: rapid decompensation and med/psych decompensation Time Spent With Patient Time: Total time managing care of this patient today ____ minutes.
[2024-04-06 19:38] LABS: Glucose, Whole Blood 138 mg/dL (60-115)
[2024-04-06 19:56] VITALS: BP 105/57; PULSE 70; RESP 18; TEMP 36.1; O2SAT 96
[2024-04-06] MEDS: QUEtiapine Fumarate 200 MG TABLET PO (19:59)
[2024-04-06] MEDS: Melatonin 3 MG TABLET PO (20:00)
[2024-04-07] MEDS: 0.9 % Sodium Chloride Flush 10 ML SYRINGE 5 ML IVFLUSH ×3 (05:21→20:00)
[2024-04-07] MEDS: Pantoprazole Sodium 20 MG TABLET.DR 40 MG PO (05:22)
[2024-04-07 06:53] LABS: Glucose, Whole Blood 107 mg/dL (60-115)
[2024-04-07 07:47] VITALS: BP 118/75; PULSE 82; RESP 18; TEMP 36.1; O2SAT 94
[2024-04-07] MEDS: Buprenorphine/Naloxone 8/2 mg FILM 1 FILM SUBLINGUAL ×3 (07:50→19:55)
[2024-04-07] MEDS: Fluticasone/Vilanterol 100/25 BLST.W.DEV 1 PUFF INHALE (07:50)
[2024-04-07] MEDS: Bictegrav/Emtricit/Tenofov Ala TABLET 1 TAB PO (07:51)
[2024-04-07] MEDS: Lactulose 20 GM/30 ML SOLUTION PO ×2 (07:51→19:55)
[2024-04-07] MEDS: Furosemide 20 MG TABLET PO (07:51)
[2024-04-07] MEDS: busPIRone HCl 5 MG TABLET 15 MG PO ×2 (07:51→19:55)
[2024-04-07] MEDS: Thiamine HCL 100 MG TABLET PO (07:52)
[2024-04-07] MEDS: Gabapentin 100 MG CAPSULE PO ×3 (07:52→19:55)
[2024-04-07] MEDS: Clopidogrel Bisulfate 75 MG TABLET PO (07:52)
[2024-04-07] MEDS: Empagliflozin 10 MG TABLET PO (07:52)
[2024-04-07] MEDS: buPROPion HCl XL 150 MG TAB.ER.24H PO ×2 (07:52→14:44)
[2024-04-07] MEDS: busPIRone HCl 10 MG TABLET PO ×2 (07:52→19:55)
[2024-04-07] MEDS: Folic Acid 1 MG TABLET PO (07:53)
--- NOTE | 2024-04-07 13:06 | HO.PSYCHPN ---
Subjective Subjective Date of Service: 04/07/24 Reason For Visit: SI depression Subjective Notes: Conditional Voluntary Interim History: Patient accepting treatment agreeable to referral discharge Mental Status Exam Mental Status Exam Patient Appearance: Appropriate Patient Orientation: Person and Situation Level of Consciousness: Awake and Appropriate Patient Behavior: Appropriate and Cooperative Mood Description: Calm Affect Description: Constricted Patient Cognition Impaired: No Ability to Follow Directions: Good Speech Pattern: Clear Hallucinations: None Delusions: Not Present Thought Process: Distracted and Slowed Thinking Thought Content: positive for [place] and positive for Poverty of Content Judgement: Poor Diagnostics Vital Signs (24Hr): Vital Signs - 24 hr 04/06/24 19:56 04/07/24 07:47 Temperature 97 F 97 F Pulse Rate 70 82 Respiratory Rate 18 18 Blood Pressure 105/57 L 118/75 Pulse Oximetry 96 94 Oxygen Delivery Method Room Air Room Air BMI result Body Mass Index 23.2 Labs 04/02/24 13:28 04/02/24 08:16 Labs: Laboratory Results - last 48 hr 04/05/24 04/06/24 04/06/24 19:28 06:47 19:34 POC Glucose 135 H 94 138 H 04/07/24 06:43 POC Glucose 107 Imaging Radiology Impressions: ITS Impressions Abdomen Ultrasound 03/29/24 09:20 IMPRESSION: Moderate ascites. Medications Medications Current Medications Al Hydroxide/Mg Hydroxide (Magnesium Hydrox/Alum Hydrox 30 Ml Oral.Susp) 30 ml PO Q6H PRN PRN Reason: Heartburn/Nausea Last Admin: 03/26/24 08:57 Dose: 30 ml Bictegravir/Emtricitabine/Tenofovir (Bictegrav/Emtricit/Tenofov Ala Tablet) 1 tab PO DAILY [facility] Last Admin: 04/07/24 07:51 Dose: 1 tab Buprenorphine/Naloxone (Buprenorphine/Naloxone 8/2 Mg Film) 1 film SUBLINGUAL TID [facility] Last Admin: 04/07/24 07:50 Dose: 1 film Bupropion HCl (Bupropion Hcl Xl 150 Mg Tab.Er.24h) 150 mg PO BID@0900,1500 [facility] Last Admin: 04/07/24 07:52 Dose: 150 mg Buspirone HCl (Buspirone Hcl 10 Mg Tablet) 10 mg PO BID [facility] Last Admin: 04/07/24 07:52 Dose: 10 mg Buspirone HCl (Buspirone Hcl 5 Mg Tablet) 15 mg PO BID [facility] Last Admin: 04/07/24 07:51 Dose: 15 mg Clopidogrel Bisulfate (Clopidogrel Bisulfate 75 Mg Tablet) 75 mg PO DAILY [facility] Last Admin: 04/07/24 07:52 Dose: 75 mg Empagliflozin (Empagliflozin 10 Mg Tablet) 10 mg PO DAILY [facility] Last Admin: 04/07/24 07:52 Dose: 10 mg Fluticasone/Vilanterol (Fluticasone/Vilanterol 100/25 Blst.W.Dev) 1 puff INHALE RDAILY [facility] Last Admin: 04/07/24 07:50 Dose: 1 puff Folic Acid (Folic Acid 1 Mg Tablet) 1 mg PO DAILY [facility] Last Admin: 04/07/24 07:53 Dose: 1 mg Furosemide (Furosemide 20 Mg Tablet) 20 mg PO DAILY [facility]; Protocol Last Admin: 04/07/24 07:51 Dose: 20 mg Gabapentin (Gabapentin 100 Mg Capsule) 100 mg PO TID [facility] Last Admin: 04/07/24 07:52 Dose: 100 mg Hydroxyzine HCl (Hydroxyzine Hcl 25 Mg Tablet) 25 mg PO Q6H PRN PRN Reason: Anxiety Last Admin: 03/21/24 22:07 Dose: 25 mg Insulin Human Lispro (Insulin Lispro 100 Unit/Ml 3 Ml Vial) 0 unit SUBCUT BID [facility]; Protocol Last Admin: 04/07/24 07:53 Dose: Not Given Lactulose (Lactulose 20 Gm/30 Ml Solution) 20 gm PO BID [facility] Last Admin: 04/07/24 07:51 Dose: 20 gm Magnesium Hydroxide (Milk Of Magnesia 30 Ml Oral.Susp) 30 ml PO DAILY PRN PRN Reason: Constipation Melatonin (Melatonin 3 Mg Tablet) 3 mg PO BEDTIME [facility] Last Admin: 04/06/24 20:00 Dose: 3 mg Nicotine (Nicotine 21 Mg Patch.Td24) 21 mg TRANSDERMA DAILY PRN PRN Reason: nicotine cravings Nicotine Polacrilex (Nicotine Polacrilex 2 Mg Gum) 4 mg BUCCAL Q2H PRN PRN Reason: Nicotine Cravings Oxycodone HCl (Oxycodone Hcl Immed Release 5 Mg Tablet) 5 mg PO BID PRN PRN Reason: severe pain Last Admin: 04/05/24 06:47 Dose: 5 mg Pantoprazole Sodium (Pantoprazole Sodium 20 Mg Tablet.) 40 mg PO DAILY@0630 [facility] Last Admin: 04/07/24 05:22 Dose: 40 mg Quetiapine Fumarate (Quetiapine Fumarate 200 Mg Tablet) 200 mg PO BEDTIME [facility] Last Admin: 04/06/24 19:59 Dose: 200 mg Sodium Chloride (0.9 % Sodium Chloride Flush 10 Ml Syringe) 5 ml IVFLUSH TID@0500,1300,2100 [facility] Last Admin: 04/07/24 12:38 Dose: 5 ml Thiamine HCl (Thiamine Hcl 100 Mg Tablet) 100 mg PO DAILY [facility] Last Admin: 04/07/24 07:52 Dose: 100 mg Trazodone HCl (Trazodone Hcl 50 Mg Tablet) 50 mg PO BEDTIME MRX1 PRN PRN Reason: Insomnia Last Admin: 03/28/24 19:54 Dose: 50 mg Allergies Allergies Allergy/AdvReac Type Severity Reaction Status Date / Time ketorolac [From Toradol] AdvReac Itching Verified 03/16/24 19:06 Assessment & Plan Assessment & Plan (1) MDD (major depressive disorder), recurrent severe, without psychosis: Status: Inactive Code(s): F33.2 - Major depressive disorder, recurrent severe without psychotic features (2) PTSD (post-traumatic stress disorder): Status: Inactive Code(s): F43.10 - Post-traumatic stress disorder, unspecified (3) MSSA bacteremia: Status: Acute Code(s): R78.81 - Bacteremia; B95.61 - Methicillin susceptible Staphylococcus aureus infection as the cause of diseases classified elsewhere (4) Alcoholic hepatitis: Status: Resolved Code(s): K70.10 - Alcoholic hepatitis without ascites (5) Decompensation of cirrhosis of liver: Status: Inactive Code(s): K72.90 - Hepatic failure, unspecified without coma; K74.60 - Unspecified cirrhosis of liver (6) Opioid dependence: Status: Inactive Code(s): F11.20 - Opioid dependence, uncomplicated (7) COPD (chronic obstructive pulmonary disease): Status: Inactive Code(s): J44.9 - Chronic obstructive pulmonary disease, unspecified (8) HIV infection: Status: Inactive Code(s): B20 - Human immunodeficiency virus [HIV] disease (9) Cocaine abuse: Status: Inactive Code(s): F14.10 - Cocaine abuse, uncomplicated (10) Alcohol use disorder: Status: Inactive Code(s): F10.90 - Alcohol use, unspecified, uncomplicated Plan HPI: Patient is a 59-year-old male with history of depression, PTSD, opiate/alcohol dependence, HIV, alcohol hepatitis, hep C, portal hypotension/ascites, COPD who was transferred from the medical floor to [facility] for SI, following treatment for MSSA bacteremia, currently on IV antibiotics. Patient was being treated for MSSA bacteremia for several weeks on the hospital floor during which time he also developed: 1.encephalopathy from elevated liver enzymes/ammonia (resolved now on lactulose and rifaximin) 2.small-bowel obstruction, resolved with conservative treatment 3.Aspiration pneumonia, resolving 4.DELMI, resolved 5.Recurrent ascites with paracentesis x2 While on medical floor, patient was accepted to a sniff but left AMA; he came back the next day was admitted again and reported SI to jump off a bridge. Patient says that is mind was not right to tolerate going to a sniff so he left AMA, quickly finding himself depressed and walked over to a bridge, thinking of jumping; he says he saw the face of his sister who said come join me... Patient however self presented to the hospital, not wanting to and citing several protective factors including seeing certain family members grow up. Currently not suicidal Hospital course: 03/22 Patient reports that he is overall okay; no SI. Tired but pushing himself to get up and move around. agrees to remain at [facility] given longevity there and strong rapport with providers there. -initially going to go to SNF for physical therapy in addition to PICC line/antibiotics. Reached out to physical therapy who will re-evaluate patient next week. Of note patient left the hospital AMA and was walking around on his own quite some distance before he decided to return to the hospital. PLAN: CV Q 15 minute checks Bictegravir/Emtricitabine/Tenofovir (Bictegrav/Emtricit/Tenofov Ala Tablet) 1 tab PO DAILY [facility] Buprenorphine/Naloxone (Buprenorphine/Naloxone 8/2 Mg Film) 1 film SUBLINGUAL TID [facility] Bupropion HCl (Bupropion Hcl Xl 150 Mg Tab.Er.24h) 150 mg PO BID@0900,1500 [facility] Buspirone HCl (Buspirone Hcl 10 Mg Tablet) 10 mg PO BID [facility] Buspirone HCl (Buspirone Hcl 5 Mg Tablet) 15 mg PO BID [facility] Clopidogrel Bisulfate (Clopidogrel Bisulfate 75 Mg Tablet) 75 mg PO DAILY [facility] Empagliflozin (Empagliflozin 10 Mg Tablet) 10 mg PO DAILY [facility] Fluticasone/Vilanterol (Fluticasone/Vilanterol 100/25 Blst.W.Dev) 1 puff INHALE DAILY [facility] Folic Acid 1 mg PO DAILY [facility] Cefazolin Sodium/Dextrose (Ancef) 2 gm in 50 mls @ 100 mls/hr IV Q8H [facility] Lactulose (Lactulose 20 Gm/30 Ml Solution) 20 gm PO TID [facility] Melatonin (Melatonin 3 Mg Tablet) 6 mg PO BEDTIME PRN Ondansetron HCl Pantoprazole Sodium (Pantoprazole Sodium 20 Mg Tablet.Dr) 40 mg PO DAILY@0630 [facility] Rifaximin (Rifaximin 550 Mg Tablet) 550 mg PO BID [facility] Sodium Chloride (0.9 % Sodium Chloride Flush 3 Ml Syringe) 3 ml IVFLUSH QSHIFT [facility] Thiamine HCl (Thiamine Hcl 100 Mg Tablet) 100 mg PO DAILY [facility] Gabapentin 100 mg t.i.d. Oxycodone HCl 5 mg PO daily prn Quetiapine Fumarate 50 mg PO BEDTIME [facility] Furosemide 20 mg daily Insulin sliding scale At discharge, will need to follow-up appointments for: Infectious disease GI Psychiatry 1. Seroquel was been increased up to 100 mg p.o. q.h.s. to target mood lability. At this point we are not planning to increased anymore until his medical condition improves. 2. We will assess for the possibility of intermediate facility subacute rehab 3. Continue on same medications, blood work of April 02 came back with no changes. 4. Seroquel increased up to 200 mg p.o. q.h.s. on April 02 since there were no changes on his blood work. 5. Waiting for placement 04/07/2024 Continue plan of care Reason for continued inpatient stay Substantial Risk for: rapid decompensation and med/psych decompensation Time Spent With Patient Time: Total time managing care of this patient today ____ minutes.
[2024-04-07 16:27] LABS: Glucose, Whole Blood 112 mg/dL (60-115)
[2024-04-07] MEDS: QUEtiapine Fumarate 200 MG TABLET PO (19:55)
[2024-04-07] MEDS: Melatonin 3 MG TABLET PO (19:55)
[2024-04-07] MEDS: oxyCODONE HCl Immed Release 5 MG TABLET PO (19:55)
[2024-04-07 20:00] VITALS: BP 153/88; PULSE 80; RESP 16; TEMP 36.2; O2SAT 97
[2024-04-07 20:36] LABS: Glucose, Whole Blood 99 mg/dL (60-115)
[2024-04-08] MEDS: Pantoprazole Sodium 20 MG TABLET.DR 40 MG PO (05:33)
[2024-04-08] MEDS: 0.9 % Sodium Chloride Flush 10 ML SYRINGE 5 ML IVFLUSH ×3 (05:35→19:45)
[2024-04-08 06:52] LABS: Glucose, Whole Blood 106 mg/dL (60-115)
[2024-04-08 08:00] VITALS: BP 123/70; PULSE 72; RESP 17; TEMP 36.3; O2SAT 95
[2024-04-08] MEDS: busPIRone HCl 10 MG TABLET PO ×2 (08:29→19:46)
[2024-04-08] MEDS: busPIRone HCl 5 MG TABLET 15 MG PO ×2 (08:29→19:46)
[2024-04-08] MEDS: Bictegrav/Emtricit/Tenofov Ala TABLET 1 TAB PO (08:30)
[2024-04-08] MEDS: Buprenorphine/Naloxone 8/2 mg FILM 1 FILM SUBLINGUAL ×3 (08:30→19:45)
[2024-04-08] MEDS: Gabapentin 100 MG CAPSULE PO ×3 (08:30→19:46)
[2024-04-08] MEDS: Lactulose 20 GM/30 ML SOLUTION PO ×2 (08:30→19:45)
[2024-04-08] MEDS: buPROPion HCl XL 150 MG TAB.ER.24H PO ×2 (08:30→15:16)
[2024-04-08] MEDS: Empagliflozin 10 MG TABLET PO (08:30)
[2024-04-08] MEDS: Clopidogrel Bisulfate 75 MG TABLET PO (08:30)
[2024-04-08] MEDS: Thiamine HCL 100 MG TABLET PO (08:30)
[2024-04-08] MEDS: Furosemide 20 MG TABLET PO (08:30)
[2024-04-08] MEDS: Folic Acid 1 MG TABLET PO (08:30)
[2024-04-08] MEDS: Fluticasone/Vilanterol 100/25 BLST.W.DEV 1 PUFF INHALE (08:31)
[2024-04-08] MEDS: oxyCODONE HCl Immed Release 5 MG TABLET PO ×2 (08:49→21:01)
--- NOTE | 2024-04-08 10:46 | P.PNPSI_ITS ---
Subjective Subjective Date of Service: 04/08/24 Reason For Visit: SI depression Interim History: Patient reports cough and there is yellow green sputum visible on paper towel/tissues. He reports discomfort and worry that he is keeping roommate awake. Otherwise he is stable; He is accepting treatment and agreeable to referral discharge Medication Compliance: Yes Side effects from medications: No Attending Groups: No Review of Systems cough ? URI Medical Review of Systems: changed Review of Systems: cough with production Review of Systems Respiratory: Reports cough Mental Status Exam Mental Status Exam Narrative: Pt is alert and oriented; behavior is cooperative, friendly and calm; In bed, unkempt hair but adequate hygiene; mood is described as ok and affect congruent; eye contact appropriate; Speech is verbose, but normal rate, volume and prosody and not pressured; no psychomotor agitation/retardation present; thought process is goal directed, circumstantial; Thought content is on tx; otherwise pertinent to relevant topics and without any delusional content, paranoid ideations or grandiosity; denies any SI/HI. There is no evidence of perceptual disturbance. Patients insight and judgment fair Patient Appearance: Appropriate Patient Orientation: Person and Situation Level of Consciousness: Awake and Appropriate Patient Behavior: Appropriate and Cooperative Mood Description: Calm Affect Description: Constricted Patient Cognition Impaired: No Ability to Follow Directions: Good Speech Pattern: Clear Diagnostics Vital Signs (24Hr): Vital Signs - 24 hr 04/07/24 20:00 04/08/24 08:00 Temperature 97.2 F 97.4 F Pulse Rate 80 72 Respiratory Rate 16 17 Blood Pressure 153/88 H 123/70 Pulse Oximetry 97 95 Oxygen Delivery Method Room Air Room Air BMI result Body Mass Index 23.2 Labs 04/02/24 13:28 04/02/24 08:16 Labs: Laboratory Results - last 48 hr 04/06/24 04/07/24 04/07/24 19:34 06:43 16:17 POC Glucose 138 H 107 112 04/07/24 04/08/24 20:12 06:35 POC Glucose 99 106 Imaging Radiology Impressions: ITS Impressions Abdomen Ultrasound 03/29/24 09:20 IMPRESSION: Moderate ascites. Medications Medications Current Medications Al Hydroxide/Mg Hydroxide (Magnesium Hydrox/Alum Hydrox 30 Ml Oral.Susp) 30 ml PO Q6H PRN PRN Reason: Heartburn/Nausea Last Admin: 03/26/24 08:57 Dose: 30 ml Bictegravir/Emtricitabine/Tenofovir (Bictegrav/Emtricit/Tenofov Ala Tablet) 1 tab PO DAILY [facility] Last Admin: 04/08/24 08:30 Dose: 1 tab Buprenorphine/Naloxone (Buprenorphine/Naloxone 8/2 Mg Film) 1 film SUBLINGUAL TID [facility] Last Admin: 04/08/24 08:30 Dose: 1 film Bupropion HCl (Bupropion Hcl Xl 150 Mg Tab.Er.24h) 150 mg PO BID@0900,1500 [facility] Last Admin: 04/08/24 08:30 Dose: 150 mg Buspirone HCl (Buspirone Hcl 10 Mg Tablet) 10 mg PO BID [facility] Last Admin: 04/08/24 08:29 Dose: 10 mg Buspirone HCl (Buspirone Hcl 5 Mg Tablet) 15 mg PO BID [facility] Last Admin: 04/08/24 08:29 Dose: 15 mg Clopidogrel Bisulfate (Clopidogrel Bisulfate 75 Mg Tablet) 75 mg PO DAILY [facility] Last Admin: 04/08/24 08:30 Dose: 75 mg Empagliflozin (Empagliflozin 10 Mg Tablet) 10 mg PO DAILY [facility] Last Admin: 04/08/24 08:30 Dose: 10 mg Fluticasone/Vilanterol (Fluticasone/Vilanterol 100/25 Blst.W.Dev) 1 puff INHALE RDAILY [facility] Last Admin: 04/08/24 08:31 Dose: 1 puff Folic Acid (Folic Acid 1 Mg Tablet) 1 mg PO DAILY [facility] Last Admin: 04/08/24 08:30 Dose: 1 mg Furosemide (Furosemide 20 Mg Tablet) 20 mg PO DAILY [facility]; Protocol Last Admin: 04/08/24 08:30 Dose: 20 mg Gabapentin (Gabapentin 100 Mg Capsule) 100 mg PO TID [facility] Last Admin: 04/08/24 08:30 Dose: 100 mg Hydroxyzine HCl (Hydroxyzine Hcl 25 Mg Tablet) 25 mg PO Q6H PRN PRN Reason: Anxiety Last Admin: 03/21/24 22:07 Dose: 25 mg Insulin Human Lispro (Insulin Lispro 100 Unit/Ml 3 Ml Vial) 0 unit SUBCUT BID [facility]; Protocol Last Admin: 04/08/24 08:55 Dose: Not Given Lactulose (Lactulose 20 Gm/30 Ml Solution) 20 gm PO BID [facility] Last Admin: 04/08/24 08:30 Dose: 20 gm Magnesium Hydroxide (Milk Of Magnesia 30 Ml Oral.Susp) 30 ml PO DAILY PRN PRN Reason: Constipation Melatonin (Melatonin 3 Mg Tablet) 3 mg PO BEDTIME [facility] Last Admin: 04/07/24 19:55 Dose: 3 mg Nicotine (Nicotine 21 Mg Patch.Td24) 21 mg TRANSDERMA DAILY PRN PRN Reason: nicotine cravings Nicotine Polacrilex (Nicotine Polacrilex 2 Mg Gum) 4 mg BUCCAL Q2H PRN PRN Reason: Nicotine Cravings Oxycodone HCl (Oxycodone Hcl Immed Release 5 Mg Tablet) 5 mg PO BID PRN PRN Reason: severe pain Last Admin: 04/08/24 08:49 Dose: 5 mg Pantoprazole Sodium (Pantoprazole Sodium 20 Mg Tablet.Dr) 40 mg PO DAILY@0630 [facility] Last Admin: 04/08/24 05:33 Dose: 40 mg Quetiapine Fumarate (Quetiapine Fumarate 200 Mg Tablet) 200 mg PO BEDTIME [facility] Last Admin: 04/07/24 19:55 Dose: 200 mg Sodium Chloride (0.9 % Sodium Chloride Flush 10 Ml Syringe) 5 ml IVFLUSH TID@0500,1300,2100 [facility] Last Admin: 04/08/24 05:35 Dose: 5 ml Thiamine HCl (Thiamine Hcl 100 Mg Tablet) 100 mg PO DAILY [facility] Last Admin: 04/08/24 08:30 Dose: 100 mg Trazodone HCl (Trazodone Hcl 50 Mg Tablet) 50 mg PO BEDTIME MRX1 PRN PRN Reason: Insomnia Last Admin: 03/28/24 19:54 Dose: 50 mg Allergies Allergies Allergy/AdvReac Type Severity Reaction Status Date / Time ketorolac [From Toradol] AdvReac Itching Verified 03/16/24 19:06 Assessment & Plan Assessment & Plan (1) MDD (major depressive disorder), recurrent severe, without psychosis: Status: Inactive Code(s): F33.2 - Major depressive disorder, recurrent severe without psychotic features (2) PTSD (post-traumatic stress disorder): Status: Inactive Code(s): F43.10 - Post-traumatic stress disorder, unspecified (3) MSSA bacteremia: Status: Acute Code(s): R78.81 - Bacteremia; B95.61 - Methicillin susceptible Staphylococcus aureus infection as the cause of diseases classified elsewhere (4) Alcoholic hepatitis: Status: Resolved Code(s): K70.10 - Alcoholic hepatitis without ascites (5) Decompensation of cirrhosis of liver: Status: Inactive Code(s): K72.90 - Hepatic failure, unspecified without coma; K74.60 - Unspecified cirrhosis of liver (6) Opioid dependence: Status: Inactive Code(s): F11.20 - Opioid dependence, uncomplicated (7) COPD (chronic obstructive pulmonary disease): Status: Inactive Code(s): J44.9 - Chronic obstructive pulmonary disease, unspecified (8) HIV infection: Status: Inactive Code(s): B20 - Human immunodeficiency virus [HIV] disease (9) Cocaine abuse: Status: Inactive Code(s): F14.10 - Cocaine abuse, uncomplicated (10) Alcohol use disorder: Status: Inactive Code(s): F10.90 - Alcohol use, unspecified, uncomplicated Plan HPI: Patient is a 59-year-old male with history of depression, PTSD, opiate/alcohol dependence, HIV, alcohol hepatitis, hep C, portal hypotension/ascites, COPD who was transferred from the medical floor to [facility] for SI, following treatment for MSSA bacteremia, currently on IV antibiotics. Patient was being treated for MSSA bacteremia for several weeks on the hospital floor during which time he also developed: 1.encephalopathy from elevated liver enzymes/ammonia (resolved now on lactulose and rifaximin) 2.small-bowel obstruction, resolved with conservative treatment 3.Aspiration pneumonia, resolving 4.DELMI, resolved 5.Recurrent ascites with paracentesis x2 While on medical floor, patient was accepted to a sniff but left AMA; he came back the next day was admitted again and reported SI to jump off a bridge. Patient says that is mind was not right to tolerate going to a sniff so he left AMA, quickly finding himself depressed and walked over to a bridge, thinking of jumping; he says he saw the face of his sister who said come join me... Patient however self presented to the hospital, not wanting to and citing several protective factors including seeing certain family members grow up. Currently not suicidal Hospital course: 03/22 Patient reports that he is overall okay; no SI. Tired but pushing himself to get up and move around. agrees to remain at [facility] given longevity there and strong rapport with providers there. -initially going to go to SNF for physical therapy in addition to PICC line/antibiotics. Reached out to physical therapy who will re-evaluate patient next week. Of note patient left the hospital AMA and was walking around on his own quite some distance before he decided to return to the hospital. PLAN: CV Q 15 minute checks Bictegravir/Emtricitabine/Tenofovir (Bictegrav/Emtricit/Tenofov Ala Tablet) 1 tab PO DAILY [facility] Buprenorphine/Naloxone (Buprenorphine/Naloxone 8/2 Mg Film) 1 film SUBLINGUAL TID [facility] Bupropion HCl (Bupropion Hcl Xl 150 Mg Tab.Er.24h) 150 mg PO BID@0900,1500 [facility] Buspirone HCl (Buspirone Hcl 10 Mg Tablet) 10 mg PO BID [facility] Buspirone HCl (Buspirone Hcl 5 Mg Tablet) 15 mg PO BID [facility] Clopidogrel Bisulfate (Clopidogrel Bisulfate 75 Mg Tablet) 75 mg PO DAILY [facility] Empagliflozin (Empagliflozin 10 Mg Tablet) 10 mg PO DAILY [facility] Fluticasone/Vilanterol (Fluticasone/Vilanterol 100/25 Blst.W.Dev) 1 puff INHALE DAILY [facility] Folic Acid 1 mg PO DAILY [facility] Cefazolin Sodium/Dextrose (Ancef) 2 gm in 50 mls @ 100 mls/hr IV Q8H [facility] Lactulose (Lactulose 20 Gm/30 Ml Solution) 20 gm PO TID [facility] Melatonin (Melatonin 3 Mg Tablet) 6 mg PO BEDTIME PRN Ondansetron HCl Pantoprazole Sodium (Pantoprazole Sodium 20 Mg Tablet.) 40 mg PO DAILY@0630 [facility] Rifaximin (Rifaximin 550 Mg Tablet) 550 mg PO BID [facility] Sodium Chloride (0.9 % Sodium Chloride Flush 3 Ml Syringe) 3 ml IVFLUSH QSHIFT [facility] Thiamine HCl (Thiamine Hcl 100 Mg Tablet) 100 mg PO DAILY [facility] Gabapentin 100 mg t.i.d. Oxycodone HCl 5 mg PO daily prn Quetiapine Fumarate 50 mg PO BEDTIME [facility] Furosemide 20 mg daily Insulin sliding scale At discharge, will need to follow-up appointments for: Infectious disease GI Psychiatry 1. Seroquel was been increased up to 100 mg p.o. q.h.s. to target mood lability. At this point we are not planning to increased anymore until his medical condition improves. 2. We will assess for the possibility of [facility] facility subacute rehab 3. Continue on same medications, blood work of April 02 came back with no changes. 4. Seroquel increased up to 200 mg p.o. q.h.s. on April 02 since there were no changes on his blood work. 5. Waiting for placement 04/07/2024 Continue plan of care 04/08/24 consult with hositalist re: cough and ?URI Patient educated on: diagnosis, medication risk/benefits, therapeutic strategies and medical condition Reason for continued inpatient stay Substantial Risk for: inability to function Time Spent With Patient Time: Total time managing care of this patient today __30__ minutes.
--- NOTE | 2024-04-08 16:26 | P.EN_ITS ---
Event Note Date of Service: 04/08/24 Event Note: Patient is a 59-year-old male with a PMH significant for alcoholic cirrhosis, chronic hep C, opiate use disorder on Suboxone, and bipolar disorder who was admitted to [facility] for increasing depression with SI with plan to jump off a bridge. Hospitalist consult for productive cough. Patient reports has been having a cough for the past 4 days that has occasionally been productive of greenish sputum. Cough most pronounced at night and early in the morning upon waking. Denies fever, chills, nausea, vomiting, belly pain. Reports chronic ?depression fatigue? around baseline. States recently quit smoking approximately 3 months ago. Obtained CXR which was negative for focal pneumonia. Vital signs have been stable with no fever, tachycardia, tachypnea, or hypoxia. Lungs clear to auscultation. Patient not respiratory distress, able to speak complete sentences given negative CXR, stable vital signs, and benign physical examination will treat conservatively with guaifenesin p.r.n. for cough. No indication to treat with antibiotics for pneumonia at this time. Will sign off for now. If patient's condition persists or deteriorates, please re-consult for re-evaluation. Time Spent With Patient Time: Total time managing care of this patient today ____ minutes.
[2024-04-08 19:30] LABS: Glucose, Whole Blood 119 mg/dL (60-115)
[2024-04-08] MEDS: Melatonin 3 MG TABLET PO (19:46)
[2024-04-08] MEDS: QUEtiapine Fumarate 200 MG TABLET PO (19:46)
[2024-04-08 20:00] VITALS: BP 116/69; PULSE 80; RESP 18; TEMP 35.8; O2SAT 92
[2024-04-09] MEDS: 0.9 % Sodium Chloride Flush 10 ML SYRINGE 5 ML IVFLUSH ×3 (05:37→20:20)
[2024-04-09] MEDS: Pantoprazole Sodium 20 MG TABLET.DR 40 MG PO (05:38)
[2024-04-09 06:46] LABS: Glucose, Whole Blood 109 mg/dL (60-115)
[2024-04-09 08:00] VITALS: BP 114/67; PULSE 80; RESP 17; TEMP 36.4; O2SAT 95
[2024-04-09] MEDS: Gabapentin 100 MG CAPSULE PO ×3 (08:09→20:17)
[2024-04-09] MEDS: busPIRone HCl 5 MG TABLET 15 MG PO ×2 (08:09→20:17)
[2024-04-09] MEDS: buPROPion HCl XL 150 MG TAB.ER.24H PO ×2 (08:09→15:30)
[2024-04-09] MEDS: Thiamine HCL 100 MG TABLET PO (08:10)
[2024-04-09] MEDS: Furosemide 20 MG TABLET PO (08:10)
[2024-04-09] MEDS: Empagliflozin 10 MG TABLET PO (08:10)
[2024-04-09] MEDS: Folic Acid 1 MG TABLET PO (08:10)
[2024-04-09] MEDS: Bictegrav/Emtricit/Tenofov Ala TABLET 1 TAB PO (08:10)
[2024-04-09] MEDS: busPIRone HCl 10 MG TABLET PO ×2 (08:11→20:17)
[2024-04-09] MEDS: Clopidogrel Bisulfate 75 MG TABLET PO (08:11)
[2024-04-09] MEDS: Lactulose 20 GM/30 ML SOLUTION PO ×2 (08:15→20:17)
[2024-04-09] MEDS: Fluticasone/Vilanterol 100/25 BLST.W.DEV 1 PUFF INHALE (08:15)
[2024-04-09] MEDS: Buprenorphine/Naloxone 8/2 mg FILM 1 FILM SUBLINGUAL ×3 (08:16→20:17)
[2024-04-09] MEDS: oxyCODONE HCl Immed Release 5 MG TABLET PO ×2 (14:04→20:17)
--- NOTE | 2024-04-09 16:01 | P.PNPSI_ITS ---
Subjective Subjective Date of Service: 04/09/24 Reason For Visit: SI depression Interim History: Wilver reports feeling improved today-URI sx are subsiding, and his abdomen has no pain, distention or fluid retention, I am comfortable Discussed awaiting placement and being told he was dying due to illness/hepatic disease. I have done a job on myself . Not what I wanted to do. Discussed his medical issues, terminal prognosis, concerns and hope for an improved future with treatment compliance. Medication Compliance: Yes Side effects from medications: No Attending Groups: Intermittent Review of Systems as noted Review of Systems Review of Systems Yes all other systems are reviewed and are negative (denies today) Mental Status Exam Mental Status Exam Patient Appearance: Fatigued Patient Orientation: Person, Place, Time and Situation Level of Consciousness: Alert Patient Behavior: Appropriate, Talkative, Cooperative and Good Eye Contact Mood Description: Flat Affect Description: Flat Patient Cognition Impaired: No Ability to Follow Directions: Good Speech Pattern: Spontaneous Speech Memory Description: Episodic Impaired Hallucinations: None Delusions: Not Present Thought Process: Rumination Thought Content: positive for Circumstantial, positive for Perseveration, positive for Suicidal Ideation (denies) and positive for Homicidal Ideation (denies) Judgement: Fair Diagnostics Vital Signs (24Hr): Vital Signs - 24 hr 04/08/24 20:00 04/09/24 08:00 Temperature 96.5 F L 97.6 F Pulse Rate 80 80 Respiratory Rate 18 17 Blood Pressure 116/69 114/67 Pulse Oximetry 92 95 Oxygen Delivery Method Room Air Room Air BMI result Body Mass Index 23.2 Labs 04/02/24 13:28 04/02/24 08:16 Labs: Laboratory Results - last 48 hr 04/07/24 04/07/24 04/08/24 16:17 20:12 06:35 POC Glucose 112 99 106 04/08/24 04/09/24 19:26 06:33 POC Glucose 119 H 109 Imaging Radiology Impressions: ITS Impressions Abdomen Ultrasound 03/29/24 09:20 IMPRESSION: Moderate ascites. Chest X-Ray 04/08/24 12:32 IMPRESSION: Limited evaluation due to pulmonary hyperexpansion. No focal pneumonia. Medications Medications Current Medications Al Hydroxide/Mg Hydroxide (Magnesium Hydrox/Alum Hydrox 30 Ml Oral.Susp) 30 ml PO Q6H PRN PRN Reason: Heartburn/Nausea Last Admin: 03/26/24 08:57 Dose: 30 ml Bictegravir/Emtricitabine/Tenofovir (Bictegrav/Emtricit/Tenofov Ala Tablet) 1 tab PO DAILY [facility] Last Admin: 04/09/24 08:10 Dose: 1 tab Buprenorphine/Naloxone (Buprenorphine/Naloxone 8/2 Mg Film) 1 film SUBLINGUAL TID [facility] Last Admin: 04/09/24 15:30 Dose: 1 film Bupropion HCl (Bupropion Hcl Xl 150 Mg Tab.Er.24h) 150 mg PO BID@0900,1500 [facility] Last Admin: 04/09/24 15:30 Dose: 150 mg Buspirone HCl (Buspirone Hcl 10 Mg Tablet) 10 mg PO BID [facility] Last Admin: 04/09/24 08:11 Dose: 10 mg Buspirone HCl (Buspirone Hcl 5 Mg Tablet) 15 mg PO BID [facility] Last Admin: 04/09/24 08:09 Dose: 15 mg Clopidogrel Bisulfate (Clopidogrel Bisulfate 75 Mg Tablet) 75 mg PO DAILY [facility] Last Admin: 04/09/24 08:11 Dose: 75 mg Empagliflozin (Empagliflozin 10 Mg Tablet) 10 mg PO DAILY [facility] Last Admin: 04/09/24 08:10 Dose: 10 mg Fluticasone/Vilanterol (Fluticasone/Vilanterol 100/25 Blst.W.Dev) 1 puff INHALE RDAILY [facility] Last Admin: 04/09/24 08:15 Dose: 1 puff Folic Acid (Folic Acid 1 Mg Tablet) 1 mg PO DAILY [facility] Last Admin: 04/09/24 08:10 Dose: 1 mg Furosemide (Furosemide 20 Mg Tablet) 20 mg PO DAILY [facility]; Protocol Last Admin: 04/09/24 08:10 Dose: 20 mg Gabapentin (Gabapentin 100 Mg Capsule) 100 mg PO TID [facility] Last Admin: 04/09/24 15:30 Dose: 100 mg Guaifenesin/Dextromethorphan (Guaifenesin Dm 200/20/10 Ml 10 Ml Syrup) 10 ml PO Q4H PRN PRN Reason: Cough Hydroxyzine HCl (Hydroxyzine Hcl 25 Mg Tablet) 25 mg PO Q6H PRN PRN Reason: Anxiety Last Admin: 03/21/24 22:07 Dose: 25 mg Insulin Human Lispro (Insulin Lispro 100 Unit/Ml 3 Ml Vial) 0 unit SUBCUT BID [facility]; Protocol Last Admin: 04/09/24 08:15 Dose: Not Given Lactulose (Lactulose 20 Gm/30 Ml Solution) 20 gm PO BID [facility] Last Admin: 04/09/24 08:15 Dose: 20 gm Magnesium Hydroxide (Milk Of Magnesia 30 Ml Oral.Susp) 30 ml PO DAILY PRN PRN Reason: Constipation Melatonin (Melatonin 3 Mg Tablet) 3 mg PO BEDTIME [facility] Last Admin: 04/08/24 19:46 Dose: 3 mg Nicotine (Nicotine 21 Mg Patch.Td24) 21 mg TRANSDERMA DAILY PRN PRN Reason: nicotine cravings Nicotine Polacrilex (Nicotine Polacrilex 2 Mg Gum) 4 mg BUCCAL Q2H PRN PRN Reason: Nicotine Cravings Oxycodone HCl (Oxycodone Hcl Immed Release 5 Mg Tablet) 5 mg PO BID PRN PRN Reason: severe pain Last Admin: 04/09/24 14:04 Dose: 5 mg Pantoprazole Sodium (Pantoprazole Sodium 20 Mg Tablet.Dr) 40 mg PO DAILY@0630 [facility] Last Admin: 04/09/24 05:38 Dose: 40 mg Quetiapine Fumarate (Quetiapine Fumarate 200 Mg Tablet) 200 mg PO BEDTIME [facility] Last Admin: 04/08/24 19:46 Dose: 200 mg Sodium Chloride (0.9 % Sodium Chloride Flush 10 Ml Syringe) 5 ml IVFLUSH TID@0500,1300,2100 [facility] Last Admin: 04/09/24 13:45 Dose: 5 ml Thiamine HCl (Thiamine Hcl 100 Mg Tablet) 100 mg PO DAILY [facility] Last Admin: 04/09/24 08:10 Dose: 100 mg Trazodone HCl (Trazodone Hcl 50 Mg Tablet) 50 mg PO BEDTIME MRX1 PRN PRN Reason: Insomnia Last Admin: 03/28/24 19:54 Dose: 50 mg Allergies Allergies Allergy/AdvReac Type Severity Reaction Status Date / Time ketorolac [From Toradol] AdvReac Itching Verified 03/16/24 19:06 Assessment & Plan Assessment & Plan (1) MDD (major depressive disorder), recurrent severe, without psychosis: Status: Inactive Code(s): F33.2 - Major depressive disorder, recurrent severe without psychotic features (2) PTSD (post-traumatic stress disorder): Status: Inactive Code(s): F43.10 - Post-traumatic stress disorder, unspecified (3) MSSA bacteremia: Status: Acute Code(s): R78.81 - Bacteremia; B95.61 - Methicillin susceptible Staphylococcus aureus infection as the cause of diseases classified elsewhere (4) Alcoholic hepatitis: Status: Resolved Code(s): K70.10 - Alcoholic hepatitis without ascites (5) Decompensation of cirrhosis of liver: Status: Inactive Code(s): K72.90 - Hepatic failure, unspecified without coma; K74.60 - Unspecified cirrhosis of liver (6) Opioid dependence: Status: Inactive Code(s): F11.20 - Opioid dependence, uncomplicated (7) COPD (chronic obstructive pulmonary disease): Status: Inactive Code(s): J44.9 - Chronic obstructive pulmonary disease, unspecified (8) HIV infection: Status: Inactive Code(s): B20 - Human immunodeficiency virus [HIV] disease (9) Cocaine abuse: Status: Inactive Code(s): F14.10 - Cocaine abuse, uncomplicated (10) Alcohol use disorder: Status: Inactive Code(s): F10.90 - Alcohol use, unspecified, uncomplicated Plan HPI: Patient is a 59-year-old male with history of depression, PTSD, opiate/alcohol dependence, HIV, alcohol hepatitis, hep C, portal hypotension/ascites, COPD who was transferred from the medical floor to [facility] for SI, following treatment for MSSA bacteremia, currently on IV antibiotics. Patient was being treated for MSSA bacteremia for several weeks on the hospital floor during which time he also developed: 1.encephalopathy from elevated liver enzymes/ammonia (resolved now on lactulose and rifaximin) 2.small-bowel obstruction, resolved with conservative treatment 3.Aspiration pneumonia, resolving 4.DELMI, resolved 5.Recurrent ascites with paracentesis x2 While on medical floor, patient was accepted to a sniff but left AMA; he came back the next day was admitted again and reported SI to jump off a bridge. Patient says that is mind was not right to tolerate going to a sniff so he left AMA, quickly finding himself depressed and walked over to a bridge, thinking of jumping; he says he saw the face of his sister who said come join me... Patient however self presented to the hospital, not wanting to and citing several protective factors including seeing certain family members grow up. Currently not suicidal Hospital course: 03/22 Patient reports that he is overall okay; no SI. Tired but pushing himself to get up and move around. agrees to remain at [facility] given longevity there and strong rapport with providers there. -initially going to go to SNF for physical therapy in addition to PICC line/antibiotics. Reached out to physical therapy who will re-evaluate patient next week. Of note patient left the hospital AMA and was walking around on his own quite some distance before he decided to return to the hospital. PLAN: CV Q 15 minute checks Bictegravir/Emtricitabine/Tenofovir (Bictegrav/Emtricit/Tenofov Ala Tablet) 1 tab PO DAILY [facility] Buprenorphine/Naloxone (Buprenorphine/Naloxone 8/2 Mg Film) 1 film SUBLINGUAL TID [facility] Bupropion HCl (Bupropion Hcl Xl 150 Mg Tab.Er.24h) 150 mg PO BID@0900,1500 [facility] Buspirone HCl (Buspirone Hcl 10 Mg Tablet) 10 mg PO BID [facility] Buspirone HCl (Buspirone Hcl 5 Mg Tablet) 15 mg PO BID [facility] Clopidogrel Bisulfate (Clopidogrel Bisulfate 75 Mg Tablet) 75 mg PO DAILY [facility] Empagliflozin (Empagliflozin 10 Mg Tablet) 10 mg PO DAILY [facility] Fluticasone/Vilanterol (Fluticasone/Vilanterol 100/25 Blst.W.Dev) 1 puff INHALE DAILY [facility] Folic Acid 1 mg PO DAILY [facility] Cefazolin Sodium/Dextrose (Ancef) 2 gm in 50 mls @ 100 mls/hr IV Q8H [facility] Lactulose (Lactulose 20 Gm/30 Ml Solution) 20 gm PO TID [facility] Melatonin (Melatonin 3 Mg Tablet) 6 mg PO BEDTIME PRN Ondansetron HCl Pantoprazole Sodium (Pantoprazole Sodium 20 Mg Tablet.Dr) 40 mg PO DAILY@0630 [facility] Rifaximin (Rifaximin 550 Mg Tablet) 550 mg PO BID [facility] Sodium Chloride (0.9 % Sodium Chloride Flush 3 Ml Syringe) 3 ml IVFLUSH QSHIFT [facility] Thiamine HCl (Thiamine Hcl 100 Mg Tablet) 100 mg PO DAILY [facility] Gabapentin 100 mg t.i.d. Oxycodone HCl 5 mg PO daily prn Quetiapine Fumarate 50 mg PO BEDTIME [facility] Furosemide 20 mg daily Insulin sliding scale At discharge, will need to follow-up appointments for: Infectious disease GI Psychiatry 1. Seroquel was been increased up to 100 mg p.o. q.h.s. to target mood lability. At this point we are not planning to increased anymore until his medical condition improves. 2. We will [facility] 3. Continue on same medications, blood work of April 02 came back with no changes. 4. Seroquel increased up to 200 mg p.o. q.h.s. on April 02 since there were no changes on his blood work. 5. Waiting for placement 04/07/2024 Continue plan of care 04/08/24 consult with hositalist re: cough and ?URI 04/09 Continue tx Reason for continued inpatient stay Substantial Risk for: med/psych decompensation Time Spent With Patient Time: Total time managing care of this patient today ____ minutes.
[2024-04-09 19:40] VITALS: BP 110/64; PULSE 73; RESP 18; TEMP 36.4; O2SAT 93
[2024-04-09 19:52] LABS: Glucose, Whole Blood 119 mg/dL (60-115)
[2024-04-09] MEDS: Melatonin 3 MG TABLET PO (20:17)
[2024-04-09] MEDS: QUEtiapine Fumarate 200 MG TABLET PO (20:17)
[2024-04-10] MEDS: guaiFENesin DM 200/20/10 ML 10 ML SYRUP PO (05:27)
[2024-04-10] MEDS: Pantoprazole Sodium 20 MG TABLET.DR 40 MG PO (05:27)
[2024-04-10] MEDS: 0.9 % Sodium Chloride Flush 10 ML SYRINGE 5 ML IVFLUSH ×3 (05:28→21:08)
[2024-04-10 06:35] LABS: Glucose, Whole Blood 120 mg/dL (60-115)
[2024-04-10 08:00] VITALS: BP 113/75; PULSE 86; RESP 18; TEMP 36.6; O2SAT 95
[2024-04-10] MEDS: Fluticasone/Vilanterol 100/25 BLST.W.DEV 1 PUFF INHALE (08:24)
[2024-04-10] MEDS: Buprenorphine/Naloxone 8/2 mg FILM 1 FILM SUBLINGUAL ×3 (08:24→21:02)
[2024-04-10] MEDS: Lactulose 20 GM/30 ML SOLUTION PO ×2 (08:24→21:02)
[2024-04-10] MEDS: Folic Acid 1 MG TABLET PO (08:25)
[2024-04-10] MEDS: Thiamine HCL 100 MG TABLET PO (08:25)
[2024-04-10] MEDS: busPIRone HCl 5 MG TABLET 15 MG PO ×2 (08:25→21:02)
[2024-04-10] MEDS: Gabapentin 100 MG CAPSULE PO ×3 (08:25→21:06)
[2024-04-10] MEDS: oxyCODONE HCl Immed Release 5 MG TABLET PO ×3 (08:25→22:00)
[2024-04-10] MEDS: Bictegrav/Emtricit/Tenofov Ala TABLET 1 TAB PO (08:25)
[2024-04-10] MEDS: Furosemide 20 MG TABLET PO (08:25)
[2024-04-10] MEDS: busPIRone HCl 10 MG TABLET PO ×2 (08:25→21:07)
[2024-04-10] MEDS: buPROPion HCl XL 150 MG TAB.ER.24H PO ×2 (08:26→15:41)
[2024-04-10] MEDS: Clopidogrel Bisulfate 75 MG TABLET PO (08:26)
[2024-04-10] MEDS: Empagliflozin 10 MG TABLET PO (08:26)
--- NOTE | 2024-04-10 13:21 | HO.PSYCHPN ---
Subjective Subjective Date of Service: 04/10/24 Reason For Visit: SI depression Interim History: Pt reports an increase in pain today. Increased timing of narcotic pain med. Reports nightmares last night as well. Team working on placement and requirements of receiving facility today. Pt states he is prepared to move forward with his transfer. States he is resting to prepare for the transfer. Medication Compliance: Yes Side effects from medications: No Attending Groups: No Review of Systems Acute medical concerns: No Medical Review of Systems: unchanged Review of Systems Review of Systems chronic pain Mental Status Exam Mental Status Exam Patient Appearance: Fatigued Patient Orientation: Person, Place, Time and Situation Level of Consciousness: Alert Patient Behavior: Appropriate, Talkative, Cooperative and Good Eye Contact Mood Description: Flat Affect Description: Flat Patient Cognition Impaired: No Ability to Follow Directions: Good Speech Pattern: Spontaneous Speech Memory Description: Episodic Impaired Hallucinations: None Delusions: Not Present Thought Process: Rumination Thought Content: positive for Circumstantial, positive for Perseveration, positive for Suicidal Ideation (denies) and positive for Homicidal Ideation (denies) Judgement: Fair Diagnostics Vital Signs (24Hr): Vital Signs - 24 hr 04/09/24 19:40 04/10/24 08:00 Temperature 97.6 F 97.8 F Pulse Rate 73 86 Respiratory Rate 18 18 Blood Pressure 110/64 113/75 Pulse Oximetry 93 95 Oxygen Delivery Method Room Air Room Air BMI result Body Mass Index 23.2 Labs 04/02/24 13:28 04/02/24 08:16 Labs: Laboratory Results - last 48 hr 04/08/24 04/09/24 04/09/24 19:26 06:33 19:48 POC Glucose 119 H 109 119 H 04/10/24 06:24 POC Glucose 120 H Imaging Radiology Impressions: ITS Impressions Abdomen Ultrasound 03/29/24 09:20 IMPRESSION: Moderate ascites. Chest X-Ray 04/08/24 12:32 IMPRESSION: Limited evaluation due to pulmonary hyperexpansion. No focal pneumonia. Medications Medications Current Medications Al Hydroxide/Mg Hydroxide (Magnesium Hydrox/Alum Hydrox 30 Ml Oral.Susp) 30 ml PO Q6H PRN PRN Reason: Heartburn/Nausea Last Admin: 03/26/24 08:57 Dose: 30 ml Bictegravir/Emtricitabine/Tenofovir (Bictegrav/Emtricit/Tenofov Ala Tablet) 1 tab PO DAILY [facility] Last Admin: 04/10/24 08:25 Dose: 1 tab Buprenorphine/Naloxone (Buprenorphine/Naloxone 8/2 Mg Film) 1 film SUBLINGUAL TID [facility] Last Admin: 04/10/24 08:24 Dose: 1 film Bupropion HCl (Bupropion Hcl Xl 150 Mg Tab.Er.24h) 150 mg PO BID@0900,1500 [facility] Last Admin: 04/10/24 08:26 Dose: 150 mg Buspirone HCl (Buspirone Hcl 10 Mg Tablet) 10 mg PO BID [facility] Last Admin: 04/10/24 08:25 Dose: 10 mg Buspirone HCl (Buspirone Hcl 5 Mg Tablet) 15 mg PO BID [facility] Last Admin: 04/10/24 08:25 Dose: 15 mg Clopidogrel Bisulfate (Clopidogrel Bisulfate 75 Mg Tablet) 75 mg PO DAILY [facility] Last Admin: 04/10/24 08:26 Dose: 75 mg Empagliflozin (Empagliflozin 10 Mg Tablet) 10 mg PO DAILY [facility] Last Admin: 04/10/24 08:26 Dose: 10 mg Fluticasone/Vilanterol (Fluticasone/Vilanterol 100/25 Blst.W.Dev) 1 puff INHALE RDAILY [facility] Last Admin: 04/10/24 08:24 Dose: 1 puff Folic Acid (Folic Acid 1 Mg Tablet) 1 mg PO DAILY [facility] Last Admin: 04/10/24 08:25 Dose: 1 mg Furosemide (Furosemide 20 Mg Tablet) 20 mg PO DAILY [facility]; Protocol Last Admin: 04/10/24 08:25 Dose: 20 mg Gabapentin (Gabapentin 100 Mg Capsule) 100 mg PO TID [facility] Last Admin: 04/10/24 08:25 Dose: 100 mg Guaifenesin/Dextromethorphan (Guaifenesin Dm 200/20/10 Ml 10 Ml Syrup) 10 ml PO Q4H PRN PRN Reason: Cough Last Admin: 04/10/24 05:27 Dose: 10 ml Hydroxyzine HCl (Hydroxyzine Hcl 25 Mg Tablet) 25 mg PO Q6H PRN PRN Reason: Anxiety Last Admin: 03/21/24 22:07 Dose: 25 mg Insulin Human Lispro (Insulin Lispro 100 Unit/Ml 3 Ml Vial) 0 unit SUBCUT BID [facility]; Protocol Last Admin: 04/10/24 08:37 Dose: Not Given Lactulose (Lactulose 20 Gm/30 Ml Solution) 20 gm PO BID [facility] Last Admin: 04/10/24 08:24 Dose: 20 gm Magnesium Hydroxide (Milk Of Magnesia 30 Ml Oral.Susp) 30 ml PO DAILY PRN PRN Reason: Constipation Melatonin (Melatonin 3 Mg Tablet) 3 mg PO BEDTIME [facility] Last Admin: 04/09/24 20:17 Dose: 3 mg Nicotine (Nicotine 21 Mg Patch.Td24) 21 mg TRANSDERMA DAILY PRN PRN Reason: nicotine cravings Nicotine Polacrilex (Nicotine Polacrilex 2 Mg Gum) 4 mg BUCCAL Q2H PRN PRN Reason: Nicotine Cravings Oxycodone HCl (Oxycodone Hcl Immed Release 5 Mg Tablet) 5 mg PO BID PRN PRN Reason: severe pain Last Admin: 04/10/24 08:25 Dose: 5 mg Pantoprazole Sodium (Pantoprazole Sodium 20 Mg Tablet.Dr) 40 mg PO DAILY@0630 [facility] Last Admin: 04/10/24 05:27 Dose: 40 mg Quetiapine Fumarate (Quetiapine Fumarate 200 Mg Tablet) 200 mg PO BEDTIME [facility] Last Admin: 04/09/24 20:17 Dose: 200 mg Sodium Chloride (0.9 % Sodium Chloride Flush 10 Ml Syringe) 5 ml IVFLUSH TID@0500,1300,2100 [facility] Last Admin: 04/10/24 05:28 Dose: 5 ml Thiamine HCl (Thiamine Hcl 100 Mg Tablet) 100 mg PO DAILY [facility] Last Admin: 04/10/24 08:25 Dose: 100 mg Trazodone HCl (Trazodone Hcl 50 Mg Tablet) 50 mg PO BEDTIME MRX1 PRN PRN Reason: Insomnia Last Admin: 03/28/24 19:54 Dose: 50 mg Allergies Allergies Allergy/AdvReac Type Severity Reaction Status Date / Time ketorolac [From Toradol] AdvReac Itching Verified 03/16/24 19:06 Assessment & Plan Assessment & Plan (1) MDD (major depressive disorder), recurrent severe, without psychosis: Status: Inactive Code(s): F33.2 - Major depressive disorder, recurrent severe without psychotic features (2) PTSD (post-traumatic stress disorder): Status: Inactive Code(s): F43.10 - Post-traumatic stress disorder, unspecified (3) MSSA bacteremia: Status: Acute Code(s): R78.81 - Bacteremia; B95.61 - Methicillin susceptible Staphylococcus aureus infection as the cause of diseases classified elsewhere (4) Alcoholic hepatitis: Status: Resolved Code(s): K70.10 - Alcoholic hepatitis without ascites (5) Decompensation of cirrhosis of liver: Status: Inactive Code(s): K72.90 - Hepatic failure, unspecified without coma; K74.60 - Unspecified cirrhosis of liver (6) Opioid dependence: Status: Inactive Code(s): F11.20 - Opioid dependence, uncomplicated (7) COPD (chronic obstructive pulmonary disease): Status: Inactive Code(s): J44.9 - Chronic obstructive pulmonary disease, unspecified (8) HIV infection: Status: Inactive Code(s): B20 - Human immunodeficiency virus [HIV] disease (9) Cocaine abuse: Status: Inactive Code(s): F14.10 - Cocaine abuse, uncomplicated (10) Alcohol use disorder: Status: Inactive Code(s): F10.90 - Alcohol use, unspecified, uncomplicated Plan HPI: Patient is a 59-year-old male with history of depression, PTSD, opiate/alcohol dependence, HIV, alcohol hepatitis, hep C, portal hypotension/ascites, COPD who was transferred from the medical floor to [facility] for SI, following treatment for MSSA bacteremia, currently on IV antibiotics. Patient was being treated for MSSA bacteremia for several weeks on the hospital floor during which time he also developed: 1.encephalopathy from elevated liver enzymes/ammonia (resolved now on lactulose and rifaximin) 2.small-bowel obstruction, resolved with conservative treatment 3.Aspiration pneumonia, resolving 4.DELMI, resolved 5.Recurrent ascites with paracentesis x2 While on medical floor, patient was accepted to a sniff but left AMA; he came back the next day was admitted again and reported SI to jump off a bridge. Patient says that is mind was not right to tolerate going to a sniff so he left AMA, quickly finding himself depressed and walked over to a bridge, thinking of jumping; he says he saw the face of his sister who said come join me... Patient however self presented to the hospital, not wanting to and citing several protective factors including seeing certain family members grow up. Currently not suicidal Hospital course: 03/22 Patient reports that he is overall okay; no SI. Tired but pushing himself to get up and move around. agrees to remain at [facility] given longevity there and strong rapport with providers there. -initially going to go to SNF for physical therapy in addition to PICC line/antibiotics. Reached out to physical therapy who will re-evaluate patient next week. Of note patient left the hospital AMA and was walking around on his own quite some distance before he decided to return to the hospital. PLAN: CV Q 15 minute checks Bictegravir/Emtricitabine/Tenofovir (Bictegrav/Emtricit/Tenofov Ala Tablet) 1 tab PO DAILY [facility] Buprenorphine/Naloxone (Buprenorphine/Naloxone 8/2 Mg Film) 1 film SUBLINGUAL TID [facility] Bupropion HCl (Bupropion Hcl Xl 150 Mg Tab.Er.24h) 150 mg PO BID@0900,1500 [facility] Buspirone HCl (Buspirone Hcl 10 Mg Tablet) 10 mg PO BID [facility] Buspirone HCl (Buspirone Hcl 5 Mg Tablet) 15 mg PO BID [facility] Clopidogrel Bisulfate (Clopidogrel Bisulfate 75 Mg Tablet) 75 mg PO DAILY [facility] Empagliflozin (Empagliflozin 10 Mg Tablet) 10 mg PO DAILY [facility] Fluticasone/Vilanterol (Fluticasone/Vilanterol 100/25 Blst.W.Dev) 1 puff INHALE DAILY [facility] Folic Acid 1 mg PO DAILY [facility] Cefazolin Sodium/Dextrose (Ancef) 2 gm in 50 mls @ 100 mls/hr IV Q8H [facility] Lactulose (Lactulose 20 Gm/30 Ml Solution) 20 gm PO TID [facility] Melatonin (Melatonin 3 Mg Tablet) 6 mg PO BEDTIME PRN Ondansetron HCl Pantoprazole Sodium (Pantoprazole Sodium 20 Mg Tablet.Dr) 40 mg PO DAILY@0630 [facility] Rifaximin (Rifaximin 550 Mg Tablet) 550 mg PO BID [facility] Sodium Chloride (0.9 % Sodium Chloride Flush 3 Ml Syringe) 3 ml IVFLUSH QSHIFT [facility] Thiamine HCl (Thiamine Hcl 100 Mg Tablet) 100 mg PO DAILY [facility] Gabapentin 100 mg t.i.d. Oxycodone HCl 5 mg PO daily prn Quetiapine Fumarate 50 mg PO BEDTIME [facility] Furosemide 20 mg daily Insulin sliding scale At discharge, will need to follow-up appointments for: Infectious disease GI Psychiatry 1. Seroquel was been increased up to 100 mg p.o. q.h.s. to target mood lability. At this point we are not planning to increased anymore until his medical condition improves. 2. We will assess for the possibility of [facility] facility subacute rehab 3. Continue on same medications, blood work of April 02 came back with no changes. 4. Seroquel increased up to 200 mg p.o. q.h.s. on April 02 since there were no changes on his blood work. 5. Waiting for placement 04/07/2024 Continue plan of care 04/08/24 consult with hositalist re: cough and ?URI 04/09 Continue tx 04/10 Increase Oyxcodone to q 6 hrs prn for severe pain. Reason for continued inpatient stay Substantial Risk for: med/psych decompensation Time Spent With Patient Time: Total time managing care of this patient today ____ minutes.
[2024-04-10 15:08] VITALS: PULSE 88; O2SAT 90
[2024-04-10 20:00] VITALS: BP 115/63; PULSE 66; RESP 16; TEMP 36.8; O2SAT 92
[2024-04-10 20:43] LABS: Glucose, Whole Blood 102 mg/dL (60-115)
[2024-04-10] MEDS: Melatonin 3 MG TABLET PO (21:06)
[2024-04-10] MEDS: QUEtiapine Fumarate 200 MG TABLET PO (21:06)
[2024-04-11] MEDS: 0.9 % Sodium Chloride Flush 10 ML SYRINGE 5 ML IVFLUSH ×3 (06:30→20:39)
[2024-04-11] MEDS: Pantoprazole Sodium 20 MG TABLET.DR 40 MG PO (06:30)
[2024-04-11 06:52] LABS: Glucose, Whole Blood 83 mg/dL (60-115)
[2024-04-11 07:00] VITALS: BMI 23.4
[2024-04-11 07:52] VITALS: BP 114/69; PULSE 79; RESP 16; TEMP 36.1; O2SAT 93
[2024-04-11] MEDS: Fluticasone/Vilanterol 100/25 BLST.W.DEV 1 PUFF INHALE (07:54)
[2024-04-11] MEDS: Gabapentin 100 MG CAPSULE PO ×3 (07:58→20:37)
[2024-04-11] MEDS: Thiamine HCL 100 MG TABLET PO (08:00)
[2024-04-11] MEDS: Clopidogrel Bisulfate 75 MG TABLET PO (08:00)
[2024-04-11] MEDS: Bictegrav/Emtricit/Tenofov Ala TABLET 1 TAB PO (08:00)
[2024-04-11] MEDS: Empagliflozin 10 MG TABLET PO (08:00)
[2024-04-11] MEDS: busPIRone HCl 10 MG TABLET PO ×2 (08:00→20:37)
[2024-04-11] MEDS: buPROPion HCl XL 150 MG TAB.ER.24H PO ×2 (08:00→14:50)
[2024-04-11] MEDS: Folic Acid 1 MG TABLET PO (08:00)
[2024-04-11] MEDS: busPIRone HCl 5 MG TABLET 15 MG PO ×2 (08:00→20:37)
[2024-04-11] MEDS: Buprenorphine/Naloxone 8/2 mg FILM 1 FILM SUBLINGUAL ×3 (08:00→20:35)
[2024-04-11] MEDS: Furosemide 20 MG TABLET PO (08:01)
[2024-04-11] MEDS: Lactulose 20 GM/30 ML SOLUTION PO ×2 (08:01→20:35)
[2024-04-11] MEDS: oxyCODONE HCl Immed Release 5 MG TABLET PO ×2 (11:12→18:09)
[2024-04-11] MEDS: guaiFENesin DM 200/20/10 ML 10 ML SYRUP PO (11:12)
--- NOTE | 2024-04-11 15:19 | P.PNPSI_ITS ---
Subjective Subjective Date of Service: 04/11/24 Reason For Visit: SI depression Subjective Notes: Conditional Voluntary Healthcare Proxy: No Guardianship: No Medical Problems Affecting Mental Status: No Interim History: Reports diarrhea and increase in pain today. Anxious about transfer to SNF-he is told this will most likely occur soon. Discussed what he felt when told he was dying and his intention to fight for his life, attempt to maintain sobriety and be present for my grand-daughter. Medication Compliance: Yes Side effects from medications: No Attending Groups: No Review of Systems Acute medical concerns: No Medical Review of Systems: unchanged Review of Systems Review of Systems pain diarrhea reported today Mental Status Exam Mental Status Exam Patient Appearance: Fatigued Patient Orientation: Person, Place, Time and Situation Level of Consciousness: Alert Patient Behavior: Appropriate, Talkative, Cooperative and Good Eye Contact Mood Description: Flat Affect Description: Flat Patient Cognition Impaired: No Ability to Follow Directions: Good Speech Pattern: Spontaneous Speech Memory Description: Episodic Impaired Hallucinations: None Delusions: Not Present Thought Process: Rumination Thought Content: positive for Circumstantial, positive for Perseveration, positive for Suicidal Ideation (denies) and positive for Homicidal Ideation (denies) Judgement: Fair Diagnostics Vital Signs (24Hr): Vital Signs - 24 hr 04/10/24 20:00 04/11/24 07:52 Temperature 98.3 F 96.9 F Pulse Rate 66 79 Respiratory Rate 16 16 Blood Pressure 115/63 114/69 Pulse Oximetry 92 93 Oxygen Delivery Method Room Air Room Air BMI result Body Mass Index 23.4 Labs 04/02/24 13:28 04/02/24 08:16 Labs: Laboratory Results - last 48 hr 04/09/24 04/10/24 04/10/24 19:48 06:24 20:37 POC Glucose 119 H 120 H 102 04/11/24 06:29 POC Glucose 83 Imaging Radiology Impressions: ITS Impressions Abdomen Ultrasound 03/29/24 09:20 IMPRESSION: Moderate ascites. Chest X-Ray 04/08/24 12:32 IMPRESSION: Limited evaluation due to pulmonary hyperexpansion. No focal pneumonia. Medications Medications Current Medications Al Hydroxide/Mg Hydroxide (Magnesium Hydrox/Alum Hydrox 30 Ml Oral.Susp) 30 ml PO Q6H PRN PRN Reason: Heartburn/Nausea Last Admin: 03/26/24 08:57 Dose: 30 ml Bictegravir/Emtricitabine/Tenofovir (Bictegrav/Emtricit/Tenofov Ala Tablet) 1 tab PO DAILY [facility] Last Admin: 04/11/24 08:00 Dose: 1 tab Buprenorphine/Naloxone (Buprenorphine/Naloxone 8/2 Mg Film) 1 film SUBLINGUAL TID [facility] Last Admin: 04/11/24 14:50 Dose: 1 film Bupropion HCl (Bupropion Hcl Xl 150 Mg Tab.Er.24h) 150 mg PO BID@0900,1500 [facility] Last Admin: 04/11/24 14:50 Dose: 150 mg Buspirone HCl (Buspirone Hcl 10 Mg Tablet) 10 mg PO BID [facility] Last Admin: 04/11/24 08:00 Dose: 10 mg Buspirone HCl (Buspirone Hcl 5 Mg Tablet) 15 mg PO BID [facility] Last Admin: 04/11/24 08:00 Dose: 15 mg Clopidogrel Bisulfate (Clopidogrel Bisulfate 75 Mg Tablet) 75 mg PO DAILY [facility] Last Admin: 04/11/24 08:00 Dose: 75 mg Empagliflozin (Empagliflozin 10 Mg Tablet) 10 mg PO DAILY [facility] Last Admin: 04/11/24 08:00 Dose: 10 mg Fluticasone/Vilanterol (Fluticasone/Vilanterol 100/25 Blst.W.Dev) 1 puff INHALE RDAILY [facility] Last Admin: 04/11/24 07:54 Dose: 1 puff Folic Acid (Folic Acid 1 Mg Tablet) 1 mg PO DAILY [facility] Last Admin: 04/11/24 08:00 Dose: 1 mg Furosemide (Furosemide 20 Mg Tablet) 20 mg PO DAILY [facility]; Protocol Last Admin: 04/11/24 08:01 Dose: 20 mg Gabapentin (Gabapentin 100 Mg Capsule) 100 mg PO TID [facility] Last Admin: 04/11/24 14:50 Dose: 100 mg Guaifenesin/Dextromethorphan (Guaifenesin Dm 200/20/10 Ml 10 Ml Syrup) 10 ml PO Q4H PRN PRN Reason: Cough Last Admin: 04/11/24 11:12 Dose: 10 ml Hydroxyzine HCl (Hydroxyzine Hcl 25 Mg Tablet) 25 mg PO Q6H PRN PRN Reason: Anxiety Last Admin: 03/21/24 22:07 Dose: 25 mg Insulin Human Lispro (Insulin Lispro 100 Unit/Ml 3 Ml Vial) 0 unit SUBCUT BID [facility]; Protocol Last Admin: 04/11/24 08:03 Dose: Not Given Lactulose (Lactulose 20 Gm/30 Ml Solution) 20 gm PO BID [facility] Last Admin: 04/11/24 08:01 Dose: 20 gm Magnesium Hydroxide (Milk Of Magnesia 30 Ml Oral.Susp) 30 ml PO DAILY PRN PRN Reason: Constipation Melatonin (Melatonin 3 Mg Tablet) 3 mg PO BEDTIME [facility] Last Admin: 04/10/24 21:06 Dose: 3 mg Nicotine (Nicotine 21 Mg Patch.Td24) 21 mg TRANSDERMA DAILY PRN PRN Reason: nicotine cravings Nicotine Polacrilex (Nicotine Polacrilex 2 Mg Gum) 4 mg BUCCAL Q2H PRN PRN Reason: Nicotine Cravings Oxycodone HCl (Oxycodone Hcl Immed Release 5 Mg Tablet) 5 mg PO Q6H PRN PRN Reason: severe pain Last Admin: 04/11/24 11:12 Dose: 5 mg Pantoprazole Sodium (Pantoprazole Sodium 20 Mg Tablet.Dr) 40 mg PO DAILY@0630 [facility] Last Admin: 04/11/24 06:30 Dose: 40 mg Quetiapine Fumarate (Quetiapine Fumarate 200 Mg Tablet) 200 mg PO BEDTIME [facility] Last Admin: 04/10/24 21:06 Dose: 200 mg Sodium Chloride (0.9 % Sodium Chloride Flush 10 Ml Syringe) 5 ml IVFLUSH TID@0500,1300,2100 [facility] Last Admin: 04/11/24 13:41 Dose: 5 ml Thiamine HCl (Thiamine Hcl 100 Mg Tablet) 100 mg PO DAILY [facility] Last Admin: 04/11/24 08:00 Dose: 100 mg Trazodone HCl (Trazodone Hcl 50 Mg Tablet) 50 mg PO BEDTIME MRX1 PRN PRN Reason: Insomnia Last Admin: 03/28/24 19:54 Dose: 50 mg Allergies Allergies Allergy/AdvReac Type Severity Reaction Status Date / Time ketorolac [From Toradol] AdvReac Itching Verified 03/16/24 19:06 Assessment & Plan Assessment & Plan (1) MSSA bacteremia: Status: Acute Code(s): R78.81 - Bacteremia; B95.61 - Methicillin susceptible Staphylococcus aureus infection as the cause of diseases classified elsewhere (2) Alcoholic hepatitis: Status: Resolved Code(s): K70.10 - Alcoholic hepatitis without ascites Plan HPI: Patient is a 59-year-old male with history of depression, PTSD, opiate/alcohol dependence, HIV, alcohol hepatitis, hep C, portal hypotension/ascites, COPD who was transferred from the medical floor to [facility] for SI, following treatment for MSSA bacteremia, currently on IV antibiotics. Patient was being treated for MSSA bacteremia for several weeks on the hospital floor during which time he also developed: 1.encephalopathy from elevated liver enzymes/ammonia (resolved now on lactulose and rifaximin) 2.small-bowel obstruction, resolved with conservative treatment 3.Aspiration pneumonia, resolving 4.DELMI, resolved 5.Recurrent ascites with paracentesis x2 While on medical floor, patient was accepted to a sniff but left AMA; he came back the next day was admitted again and reported SI to jump off a bridge. Patient says that is mind was not right to tolerate going to a sniff so he left AMA, quickly finding himself depressed and walked over to a bridge, thinking of jumping; he says he saw the face of his sister who said come join me... Patient however self presented to the hospital, not wanting to and citing several protective factors including seeing certain family members grow up. Currently not suicidal Hospital course: 03/22 Patient reports that he is overall okay; no SI. Tired but pushing himself to get up and move around. agrees to remain at [facility] given longevity there and strong rapport with providers there. -initially going to go to SNF for physical therapy in addition to PICC line/antibiotics. Reached out to physical therapy who will re-evaluate patient next week. Of note patient left the hospital AMA and was walking around on his own quite some distance before he decided to return to the hospital. PLAN: CV Q 15 minute checks Bictegravir/Emtricitabine/Tenofovir (Bictegrav/Emtricit/Tenofov Ala Tablet) 1 tab PO DAILY [facility] Buprenorphine/Naloxone (Buprenorphine/Naloxone 8/2 Mg Film) 1 film SUBLINGUAL TID [facility] Bupropion HCl (Bupropion Hcl Xl 150 Mg Tab.Er.24h) 150 mg PO BID@0900,1500 [facility] Buspirone HCl (Buspirone Hcl 10 Mg Tablet) 10 mg PO BID [facility] Buspirone HCl (Buspirone Hcl 5 Mg Tablet) 15 mg PO BID [facility] Clopidogrel Bisulfate (Clopidogrel Bisulfate 75 Mg Tablet) 75 mg PO DAILY [facility] Empagliflozin (Empagliflozin 10 Mg Tablet) 10 mg PO DAILY [facility] Fluticasone/Vilanterol (Fluticasone/Vilanterol 100/25 Blst.W.Dev) 1 puff INHALE DAILY [facility] Folic Acid 1 mg PO DAILY [facility] Cefazolin Sodium/Dextrose (Ancef) 2 gm in 50 mls @ 100 mls/hr IV Q8H [facility] Lactulose (Lactulose 20 Gm/30 Ml Solution) 20 gm PO TID [facility] Melatonin (Melatonin 3 Mg Tablet) 6 mg PO BEDTIME PRN Ondansetron HCl Pantoprazole Sodium (Pantoprazole Sodium 20 Mg Tablet.Dr) 40 mg PO DAILY@0630 [facility] Rifaximin (Rifaximin 550 Mg Tablet) 550 mg PO BID [facility] Sodium Chloride (0.9 % Sodium Chloride Flush 3 Ml Syringe) 3 ml IVFLUSH QSHIFT [facility] Thiamine HCl (Thiamine Hcl 100 Mg Tablet) 100 mg PO DAILY [facility] Gabapentin 100 mg t.i.d. Oxycodone HCl 5 mg PO daily prn Quetiapine Fumarate 50 mg PO BEDTIME [facility] Furosemide 20 mg daily Insulin sliding scale At discharge, will need to follow-up appointments for: Infectious disease GI Psychiatry 1. Seroquel was been increased up to 100 mg p.o. q.h.s. to target mood lability. At this point we are not planning to increased anymore until his medical condition improves. 2. We will assess for the possibility of correction facility subacute rehab 3. Continue on same medications, blood work of April 02 came back with no changes. 4. Seroquel increased up to 200 mg p.o. q.h.s. on April 02 since there were no changes on his blood work. 5. Waiting for placement 04/07/2024 Continue plan of care 04/08/24 consult with hositalist re: cough and ?URI 04/09 Continue tx 04/10 Increase Oyxcodone to q 6 hrs prn for severe pain. 04/11 Increase Oxycodone to q 4 hrs prn for severe pain. Imodium prn for diarrhea. Reason for continued inpatient stay Substantial Risk for: rapid decompensation and med/psych decompensation Time Spent With Patient Time: Total time managing care of this patient today ____ minutes.
[2024-04-11 20:00] VITALS: BP 120/72; PULSE 79; RESP 18; TEMP 36.6; O2SAT 92
[2024-04-11 20:13] LABS: Glucose, Whole Blood 140 mg/dL (60-115)
[2024-04-11] MEDS: QUEtiapine Fumarate 200 MG TABLET PO (20:37)
[2024-04-11] MEDS: Melatonin 3 MG TABLET PO (20:38)
[2024-04-12] MEDS: 0.9 % Sodium Chloride Flush 10 ML SYRINGE 5 ML IVFLUSH ×3 (06:14→21:22)
[2024-04-12] MEDS: Pantoprazole Sodium 20 MG TABLET.DR 40 MG PO (06:15)
[2024-04-12 06:50] LABS: Glucose, Whole Blood 89 mg/dL (60-115)
[2024-04-12] MEDS: oxyCODONE HCl Immed Release 5 MG TABLET PO ×3 (06:50→18:55)
[2024-04-12 08:13] VITALS: BP 118/69; PULSE 83; RESP 14; TEMP 36.9; O2SAT 90
[2024-04-12] MEDS: Lactulose 20 GM/30 ML SOLUTION PO ×2 (08:16→21:19)
[2024-04-12] MEDS: Buprenorphine/Naloxone 8/2 mg FILM 1 FILM SUBLINGUAL ×3 (08:16→21:20)
[2024-04-12] MEDS: Gabapentin 100 MG CAPSULE PO ×3 (08:16→21:20)
[2024-04-12] MEDS: Clopidogrel Bisulfate 75 MG TABLET PO (08:16)
[2024-04-12] MEDS: buPROPion HCl XL 150 MG TAB.ER.24H PO ×2 (08:16→13:55)
[2024-04-12] MEDS: busPIRone HCl 5 MG TABLET 15 MG PO ×2 (08:16→21:19)
[2024-04-12] MEDS: Bictegrav/Emtricit/Tenofov Ala TABLET 1 TAB PO (08:17)
[2024-04-12] MEDS: Fluticasone/Vilanterol 100/25 BLST.W.DEV 1 PUFF INHALE (08:17)
[2024-04-12] MEDS: busPIRone HCl 10 MG TABLET PO ×2 (08:17→21:21)
[2024-04-12] MEDS: Thiamine HCL 100 MG TABLET PO (08:17)
[2024-04-12] MEDS: Folic Acid 1 MG TABLET PO (08:17)
[2024-04-12] MEDS: Furosemide 20 MG TABLET PO (08:17)
[2024-04-12] MEDS: Loperamide HCl 2 MG CAPSULE PO (08:19)
[2024-04-12] MEDS: Empagliflozin 10 MG TABLET PO (08:19)
[2024-04-12] MEDS: guaiFENesin DM 200/20/10 ML 10 ML SYRUP PO (10:30)
--- NOTE | 2024-04-12 17:07 | HO.PSYCHPN ---
Subjective Subjective Date of Service: 04/12/24 Reason For Visit: SI depression Subjective Notes: Conditional Voluntary Interim History: The nursing staff reported the patient had been compliant with treatment, he reported pain and needed p.r.n. opioids. The social sciences chair reported that most likely he could be discharged pretty soon as soon as we get confirmation. On interview the patient reported that he is feeling much better. Waiting for placement. Mental Status Exam Mental Status Exam Patient Appearance: Appropriate Patient Orientation: Person and Situation Level of Consciousness: Awake and Appropriate Patient Behavior: Guarded and Passive Mood Description: Withdrawn Affect Description: Constricted Patient Cognition Impaired: Yes Ability to Follow Directions: Good Speech Pattern: Clear Hallucinations: None Delusions: Not Present Thought Process: Distracted and Slowed Thinking Thought Content: positive for Sunburst and positive for Poverty of Content Judgement: Fair Diagnostics Vital Signs (24Hr): Vital Signs - 24 hr 04/11/24 20:00 04/12/24 08:13 Temperature 97.8 F 98.4 F Pulse Rate 79 83 Respiratory Rate 18 14 Blood Pressure 120/72 118/69 Pulse Oximetry 92 90 L Oxygen Delivery Method Room Air Room Air BMI result Body Mass Index 23.4 Labs 04/02/24 13:28 04/02/24 08:16 Labs: Laboratory Results - last 48 hr 04/10/24 04/11/24 04/11/24 20:37 06:29 20:02 POC Glucose 102 83 140 H 04/12/24 06:30 POC Glucose 89 Imaging Radiology Impressions: ITS Impressions Abdomen Ultrasound 03/29/24 09:20 IMPRESSION: Moderate ascites. Chest X-Ray 04/08/24 12:32 IMPRESSION: Limited evaluation due to pulmonary hyperexpansion. No focal pneumonia. Medications Medications Current Medications Al Hydroxide/Mg Hydroxide (Magnesium Hydrox/Alum Hydrox 30 Ml Oral.Susp) 30 ml PO Q6H PRN PRN Reason: Heartburn/Nausea Last Admin: 03/26/24 08:57 Dose: 30 ml Bictegravir/Emtricitabine/Tenofovir (Bictegrav/Emtricit/Tenofov Ala Tablet) 1 tab PO DAILY [facility] Last Admin: 04/12/24 08:17 Dose: 1 tab Buprenorphine/Naloxone (Buprenorphine/Naloxone 8/2 Mg Film) 1 film SUBLINGUAL TID [facility] Last Admin: 04/12/24 13:55 Dose: 1 film Bupropion HCl (Bupropion Hcl Xl 150 Mg Tab.Er.24h) 150 mg PO BID@0900,1500 [facility] Last Admin: 04/12/24 13:55 Dose: 150 mg Buspirone HCl (Buspirone Hcl 10 Mg Tablet) 10 mg PO BID [facility] Last Admin: 04/12/24 08:17 Dose: 10 mg Buspirone HCl (Buspirone Hcl 5 Mg Tablet) 15 mg PO BID [facility] Last Admin: 04/12/24 08:16 Dose: 15 mg Clopidogrel Bisulfate (Clopidogrel Bisulfate 75 Mg Tablet) 75 mg PO DAILY [facility] Last Admin: 04/12/24 08:16 Dose: 75 mg Empagliflozin (Empagliflozin 10 Mg Tablet) 10 mg PO DAILY [facility] Last Admin: 04/12/24 08:19 Dose: 10 mg Fluticasone/Vilanterol (Fluticasone/Vilanterol 100/25 Blst.W.Dev) 1 puff INHALE RDAILY [facility] Last Admin: 04/12/24 08:17 Dose: 1 puff Folic Acid (Folic Acid 1 Mg Tablet) 1 mg PO DAILY [facility] Last Admin: 04/12/24 08:17 Dose: 1 mg Furosemide (Furosemide 20 Mg Tablet) 20 mg PO DAILY [facility]; Protocol Last Admin: 04/12/24 08:17 Dose: 20 mg Gabapentin (Gabapentin 100 Mg Capsule) 100 mg PO TID [facility] Last Admin: 04/12/24 13:55 Dose: 100 mg Guaifenesin/Dextromethorphan (Guaifenesin Dm 200/20/10 Ml 10 Ml Syrup) 10 ml PO Q4H PRN PRN Reason: Cough Last Admin: 04/12/24 10:30 Dose: 10 ml Hydroxyzine HCl (Hydroxyzine Hcl 25 Mg Tablet) 25 mg PO Q6H PRN PRN Reason: Anxiety Last Admin: 03/21/24 22:07 Dose: 25 mg Insulin Human Lispro (Insulin Lispro 100 Unit/Ml 3 Ml Vial) 0 unit SUBCUT BID [facility]; Protocol Last Admin: 04/12/24 08:17 Dose: Not Given Lactulose (Lactulose 20 Gm/30 Ml Solution) 20 gm PO BID [facility] Last Admin: 04/12/24 08:16 Dose: 20 gm Loperamide HCl (Loperamide Hcl 2 Mg Capsule) 2 mg PO Q6H PRN PRN Reason: Diarrhea Last Admin: 04/12/24 08:19 Dose: 2 mg Magnesium Hydroxide (Milk Of Magnesia 30 Ml Oral.Susp) 30 ml PO DAILY PRN PRN Reason: Constipation Melatonin (Melatonin 3 Mg Tablet) 3 mg PO BEDTIME [facility] Last Admin: 04/11/24 20:38 Dose: 3 mg Nicotine (Nicotine 21 Mg Patch.Td24) 21 mg TRANSDERMA DAILY PRN PRN Reason: nicotine cravings Nicotine Polacrilex (Nicotine Polacrilex 2 Mg Gum) 4 mg BUCCAL Q2H PRN PRN Reason: Nicotine Cravings Oxycodone HCl (Oxycodone Hcl Immed Release 5 Mg Tablet) 5 mg PO Q4H PRN PRN Reason: severe pain Last Admin: 04/12/24 13:54 Dose: 5 mg Pantoprazole Sodium (Pantoprazole Sodium 20 Mg Tablet.Dr) 40 mg PO DAILY@0630 [facility] Last Admin: 04/12/24 06:15 Dose: 40 mg Quetiapine Fumarate (Quetiapine Fumarate 200 Mg Tablet) 200 mg PO BEDTIME [facility] Last Admin: 04/11/24 20:37 Dose: 200 mg Sodium Chloride (0.9 % Sodium Chloride Flush 10 Ml Syringe) 5 ml IVFLUSH TID@0500,1300,2100 [facility] Last Admin: 04/12/24 13:42 Dose: 5 ml Thiamine HCl (Thiamine Hcl 100 Mg Tablet) 100 mg PO DAILY [facility] Last Admin: 04/12/24 08:17 Dose: 100 mg Trazodone HCl (Trazodone Hcl 50 Mg Tablet) 50 mg PO BEDTIME MRX1 PRN PRN Reason: Insomnia Last Admin: 03/28/24 19:54 Dose: 50 mg Allergies Allergies Allergy/AdvReac Type Severity Reaction Status Date / Time ketorolac [From Toradol] AdvReac Itching Verified 03/16/24 19:06 Assessment & Plan Assessment & Plan (1) MSSA bacteremia: Status: Acute Code(s): R78.81 - Bacteremia; B95.61 - Methicillin susceptible Staphylococcus aureus infection as the cause of diseases classified elsewhere (2) Alcoholic hepatitis: Status: Resolved Code(s): K70.10 - Alcoholic hepatitis without ascites Plan HPI: Patient is a 59-year-old male with history of depression, PTSD, opiate/alcohol dependence, HIV, alcohol hepatitis, hep C, portal hypotension/ascites, COPD who was transferred from the medical floor to psych for SI, following treatment for MSSA bacteremia, currently on IV antibiotics. Patient was being treated for MSSA bacteremia for several weeks on the hospital floor during which time he also developed: 1.encephalopathy from elevated liver enzymes/ammonia (resolved now on lactulose and rifaximin) 2.small-bowel obstruction, resolved with conservative treatment 3.Aspiration pneumonia, resolving 4.DELMI, resolved 5.Recurrent ascites with paracentesis x2 While on medical floor, patient was accepted to a sniff but left AMA; he came back the next day was admitted again and reported SI to jump off a bridge. Patient says that is mind was not right to tolerate going to a sniff so he left AMA, quickly finding himself depressed and walked over to a bridge, thinking of jumping; he says he saw the face of his sister who said come join me... Patient however self presented to the hospital, not wanting to and citing several protective factors including seeing certain family members grow up. Currently not suicidal Hospital course: 03/22 Patient reports that he is overall okay; no SI. Tired but pushing himself to get up and move around. agrees to remain at [facility] given longevity there and strong rapport with providers there. -initially going to go to SNF for physical therapy in addition to PICC line/antibiotics. Reached out to physical therapy who will re-evaluate patient next week. Of note patient left the hospital AMA and was walking around on his own quite some distance before he decided to return to the hospital. PLAN: CV Q 15 minute checks Bictegravir/Emtricitabine/Tenofovir (Bictegrav/Emtricit/Tenofov Ala Tablet) 1 tab PO DAILY [facility] Buprenorphine/Naloxone (Buprenorphine/Naloxone 8/2 Mg Film) 1 film SUBLINGUAL TID [facility] Bupropion HCl (Bupropion Hcl Xl 150 Mg Tab.Er.24h) 150 mg PO BID@0900,1500 [facility] Buspirone HCl (Buspirone Hcl 10 Mg Tablet) 10 mg PO BID [facility] Buspirone HCl (Buspirone Hcl 5 Mg Tablet) 15 mg PO BID [facility] Clopidogrel Bisulfate (Clopidogrel Bisulfate 75 Mg Tablet) 75 mg PO DAILY [facility] Empagliflozin (Empagliflozin 10 Mg Tablet) 10 mg PO DAILY [facility] Fluticasone/Vilanterol (Fluticasone/Vilanterol 100/25 Blst.W.Dev) 1 puff INHALE DAILY [facility] Folic Acid 1 mg PO DAILY [facility] Cefazolin Sodium/Dextrose (Ancef) 2 gm in 50 mls @ 100 mls/hr IV Q8H [facility] Lactulose (Lactulose 20 Gm/30 Ml Solution) 20 gm PO TID [facility] Melatonin (Melatonin 3 Mg Tablet) 6 mg PO BEDTIME PRN Ondansetron HCl Pantoprazole Sodium (Pantoprazole Sodium 20 Mg Tablet.Dr) 40 mg PO DAILY@0630 [facility] Rifaximin (Rifaximin 550 Mg Tablet) 550 mg PO BID [facility] Sodium Chloride (0.9 % Sodium Chloride Flush 3 Ml Syringe) 3 ml IVFLUSH QSHIFT [facility] Thiamine HCl (Thiamine Hcl 100 Mg Tablet) 100 mg PO DAILY [facility] Gabapentin 100 mg t.i.d. Oxycodone HCl 5 mg PO daily prn Quetiapine Fumarate 50 mg PO BEDTIME [facility] Furosemide 20 mg daily Insulin sliding scale At discharge, will need to follow-up appointments for: Infectious disease GI Psychiatry 1. Seroquel was been increased up to 100 mg p.o. q.h.s. to target mood lability. At this point we are not planning to increased anymore until his medical condition improves. 2. We will assess for the possibility of alf facility subacute rehab 3. Continue on same medications, blood work of April 02 came back with no changes. 4. Seroquel increased up to 200 mg p.o. q.h.s. on April 02 since there were no changes on his blood work. 5. Waiting for placement Reason for continued inpatient stay Substantial Risk for: inability to function, rapid decompensation and med/psych decompensation Time Spent With Patient Time: Total time managing care of this patient today _20___ minutes.
[2024-04-12 20:00] VITALS: BP 135/73; PULSE 72; RESP 16; TEMP 36.3; O2SAT 93
[2024-04-12 21:03] LABS: Glucose, Whole Blood 101 mg/dL (60-115)
[2024-04-12] MEDS: Melatonin 3 MG TABLET PO (21:20)
[2024-04-12] MEDS: QUEtiapine Fumarate 200 MG TABLET PO (21:34)
[2024-04-13] MEDS: guaiFENesin DM 200/20/10 ML 10 ML SYRUP PO ×2 (04:06→15:12)
[2024-04-13] MEDS: oxyCODONE HCl Immed Release 5 MG TABLET PO ×4 (04:10→18:06)
[2024-04-13] MEDS: Pantoprazole Sodium 20 MG TABLET.DR 40 MG PO (05:37)
[2024-04-13] MEDS: 0.9 % Sodium Chloride Flush 10 ML SYRINGE 5 ML IVFLUSH ×3 (05:37→20:04)
[2024-04-13 06:45] LABS: Glucose, Whole Blood 91 mg/dL (60-115)
[2024-04-13 08:25] VITALS: BP 122/73; PULSE 73; RESP 17; TEMP 36.4; O2SAT 94
[2024-04-13] MEDS: busPIRone HCl 5 MG TABLET 15 MG PO ×2 (08:29→20:03)
[2024-04-13] MEDS: Thiamine HCL 100 MG TABLET PO (08:30)
[2024-04-13] MEDS: buPROPion HCl XL 150 MG TAB.ER.24H PO ×2 (08:30→15:09)
[2024-04-13] MEDS: Folic Acid 1 MG TABLET PO (08:30)
[2024-04-13] MEDS: Bictegrav/Emtricit/Tenofov Ala TABLET 1 TAB PO (08:30)
[2024-04-13] MEDS: Furosemide 20 MG TABLET PO (08:30)
[2024-04-13] MEDS: busPIRone HCl 10 MG TABLET PO ×2 (08:30→20:03)
[2024-04-13] MEDS: Gabapentin 100 MG CAPSULE PO ×3 (08:30→20:03)
[2024-04-13] MEDS: Empagliflozin 10 MG TABLET PO (08:30)
[2024-04-13] MEDS: Clopidogrel Bisulfate 75 MG TABLET PO (08:30)
[2024-04-13] MEDS: Fluticasone/Vilanterol 100/25 BLST.W.DEV 1 PUFF INHALE (08:31)
[2024-04-13] MEDS: Buprenorphine/Naloxone 8/2 mg FILM 1 FILM SUBLINGUAL ×3 (08:32→20:01)
[2024-04-13] MEDS: Lactulose 20 GM/30 ML SOLUTION PO ×2 (08:33→20:04)
--- NOTE | 2024-04-13 08:49 | P.PNPSI_ITS ---
Subjective Subjective Date of Service: 04/13/24 Reason For Visit: SI depression Interim History: Care review with team who reports no issues/changes. Pt reports he is feeling OK toay. He reports pain is managed well, I am able to rest better and I think the rest helps me to do more. Supportive of room-mate. Full range of affect. States he is hopeful for the future. Medication Compliance: Yes Side effects from medications: No Attending Groups: No Review of Systems Medical Review of Systems: unchanged Review of Systems Review of Systems Reports pain is managed today. Yes all other systems are reviewed and are negative (denies today) Mental Status Exam Mental Status Exam Patient Appearance: Fatigued Patient Orientation: Person, Place, Time and Situation Level of Consciousness: Alert Patient Behavior: Appropriate, Talkative, Cooperative and Good Eye Contact Mood Description: Flat Affect Description: Flat Patient Cognition Impaired: No Ability to Follow Directions: Good Speech Pattern: Spontaneous Speech Memory Description: Episodic Impaired Hallucinations: None Delusions: Not Present Thought Content: positive for Circumstantial, positive for Suicidal Ideation (denies) and positive for Homicidal Ideation (denies) Judgement: Fair Diagnostics Vital Signs (24Hr): Vital Signs - 24 hr 04/12/24 20:00 04/13/24 08:25 Temperature 97.4 F 97.6 F Pulse Rate 72 73 Respiratory Rate 16 17 Blood Pressure 135/73 122/73 Pulse Oximetry 93 94 Oxygen Delivery Method Room Air Room Air BMI result Body Mass Index 23.4 Labs 04/02/24 13:28 04/02/24 08:16 Labs: Laboratory Results - last 48 hr 04/11/24 04/12/24 04/12/24 20:02 06:30 20:18 POC Glucose 140 H 89 101 04/13/24 06:37 POC Glucose 91 Imaging Radiology Impressions: ITS Impressions Abdomen Ultrasound 03/29/24 09:20 IMPRESSION: Moderate ascites. Chest X-Ray 04/08/24 12:32 IMPRESSION: Limited evaluation due to pulmonary hyperexpansion. No focal pneumonia. Medications Medications Current Medications Al Hydroxide/Mg Hydroxide (Magnesium Hydrox/Alum Hydrox 30 Ml Oral.Susp) 30 ml PO Q6H PRN PRN Reason: Heartburn/Nausea Last Admin: 03/26/24 08:57 Dose: 30 ml Bictegravir/Emtricitabine/Tenofovir (Bictegrav/Emtricit/Tenofov Ala Tablet) 1 tab PO DAILY [facility] Last Admin: 04/13/24 08:30 Dose: 1 tab Buprenorphine/Naloxone (Buprenorphine/Naloxone 8/2 Mg Film) 1 film SUBLINGUAL TID [facility] Last Admin: 04/13/24 08:32 Dose: 1 film Bupropion HCl (Bupropion Hcl Xl 150 Mg Tab.Er.24h) 150 mg PO BID@0900,1500 [facility] Last Admin: 04/13/24 08:30 Dose: 150 mg Buspirone HCl (Buspirone Hcl 10 Mg Tablet) 10 mg PO BID [facility] Last Admin: 04/13/24 08:30 Dose: 10 mg Buspirone HCl (Buspirone Hcl 5 Mg Tablet) 15 mg PO BID [facility] Last Admin: 04/13/24 08:29 Dose: 15 mg Clopidogrel Bisulfate (Clopidogrel Bisulfate 75 Mg Tablet) 75 mg PO DAILY [facility] Last Admin: 04/13/24 08:30 Dose: 75 mg Empagliflozin (Empagliflozin 10 Mg Tablet) 10 mg PO DAILY [facility] Last Admin: 04/13/24 08:30 Dose: 10 mg Fluticasone/Vilanterol (Fluticasone/Vilanterol 100/25 Blst.W.Dev) 1 puff INHALE RDAILY [facility] Last Admin: 04/13/24 08:31 Dose: 1 puff Folic Acid (Folic Acid 1 Mg Tablet) 1 mg PO DAILY [facility] Last Admin: 04/13/24 08:30 Dose: 1 mg Furosemide (Furosemide 20 Mg Tablet) 20 mg PO DAILY [facility]; Protocol Last Admin: 04/13/24 08:30 Dose: 20 mg Gabapentin (Gabapentin 100 Mg Capsule) 100 mg PO TID [facility] Last Admin: 04/13/24 08:30 Dose: 100 mg Guaifenesin/Dextromethorphan (Guaifenesin Dm 200/20/10 Ml 10 Ml Syrup) 10 ml PO Q4H PRN PRN Reason: Cough Last Admin: 04/13/24 04:06 Dose: 10 ml Hydroxyzine HCl (Hydroxyzine Hcl 25 Mg Tablet) 25 mg PO Q6H PRN PRN Reason: Anxiety Last Admin: 03/21/24 22:07 Dose: 25 mg Insulin Human Lispro (Insulin Lispro 100 Unit/Ml 3 Ml Vial) 0 unit SUBCUT BID [facility]; Protocol Last Admin: 04/13/24 08:35 Dose: Not Given Lactulose (Lactulose 20 Gm/30 Ml Solution) 20 gm PO BID [facility] Last Admin: 04/13/24 08:33 Dose: 20 gm Loperamide HCl (Loperamide Hcl 2 Mg Capsule) 2 mg PO Q6H PRN PRN Reason: Diarrhea Last Admin: 04/12/24 08:19 Dose: 2 mg Magnesium Hydroxide (Milk Of Magnesia 30 Ml Oral.Susp) 30 ml PO DAILY PRN PRN Reason: Constipation Melatonin (Melatonin 3 Mg Tablet) 3 mg PO BEDTIME [facility] Last Admin: 04/12/24 21:20 Dose: 3 mg Nicotine (Nicotine 21 Mg Patch.Td24) 21 mg TRANSDERMA DAILY PRN PRN Reason: nicotine cravings Nicotine Polacrilex (Nicotine Polacrilex 2 Mg Gum) 4 mg BUCCAL Q2H PRN PRN Reason: Nicotine Cravings Oxycodone HCl (Oxycodone Hcl Immed Release 5 Mg Tablet) 5 mg PO Q4H PRN PRN Reason: severe pain Last Admin: 04/13/24 08:29 Dose: 5 mg Pantoprazole Sodium (Pantoprazole Sodium 20 Mg Tablet.Dr) 40 mg PO DAILY@0630 [facility] Last Admin: 04/13/24 05:37 Dose: 40 mg Quetiapine Fumarate (Quetiapine Fumarate 200 Mg Tablet) 200 mg PO BEDTIME [facility] Last Admin: 04/12/24 21:34 Dose: 200 mg Sodium Chloride (0.9 % Sodium Chloride Flush 10 Ml Syringe) 5 ml IVFLUSH TID@0500,1300,2100 [facility] Last Admin: 04/13/24 05:37 Dose: 5 ml Thiamine HCl (Thiamine Hcl 100 Mg Tablet) 100 mg PO DAILY [facility] Last Admin: 04/13/24 08:30 Dose: 100 mg Trazodone HCl (Trazodone Hcl 50 Mg Tablet) 50 mg PO BEDTIME MRX1 PRN PRN Reason: Insomnia Last Admin: 03/28/24 19:54 Dose: 50 mg Allergies Allergies Allergy/AdvReac Type Severity Reaction Status Date / Time ketorolac [From Toradol] AdvReac Itching Verified 03/16/24 19:06 Assessment & Plan Assessment & Plan (1) MSSA bacteremia: Status: Acute Code(s): R78.81 - Bacteremia; B95.61 - Methicillin susceptible Staphylococcus aureus infection as the cause of diseases classified elsewhere (2) Alcoholic hepatitis: Status: Resolved Code(s): K70.10 - Alcoholic hepatitis without ascites Plan HPI: Patient is a 59-year-old male with history of depression, PTSD, opiate/alcohol dependence, HIV, alcohol hepatitis, hep C, portal hypotension/ascites, COPD who was transferred from the medical floor to [facility] for SI, following treatment for MSSA bacteremia, currently on IV antibiotics. Patient was being treated for MSSA bacteremia for several weeks on the hospital floor during which time he also developed: 1.encephalopathy from elevated liver enzymes/ammonia (resolved now on lactulose and rifaximin) 2.small-bowel obstruction, resolved with conservative treatment 3.Aspiration pneumonia, resolving 4.DELMI, resolved 5.Recurrent ascites with paracentesis x2 While on medical floor, patient was accepted to a sniff but left AMA; he came back the next day was admitted again and reported SI to jump off a bridge. Patient says that is mind was not right to tolerate going to a sniff so he left AMA, quickly finding himself depressed and walked over to a bridge, thinking of jumping; he says he saw the face of his sister who said come join me... Patient however self presented to the hospital, not wanting to and citing several protective factors including seeing certain family members grow up. Currently not suicidal Hospital course: 03/22 Patient reports that he is overall okay; no SI. Tired but pushing himself to get up and move around. agrees to remain at [facility] given longevity there and strong rapport with providers there. -initially going to go to SNF for physical therapy in addition to PICC line/antibiotics. Reached out to physical therapy who will re-evaluate patient next week. Of note patient left the hospital AMA and was walking around on his own quite some distance before he decided to return to the hospital. PLAN: CV Q 15 minute checks Bictegravir/Emtricitabine/Tenofovir (Bictegrav/Emtricit/Tenofov Ala Tablet) 1 tab PO DAILY [facility] Buprenorphine/Naloxone (Buprenorphine/Naloxone 8/2 Mg Film) 1 film SUBLINGUAL TID [facility] Bupropion HCl (Bupropion Hcl Xl 150 Mg Tab.Er.24h) 150 mg PO BID@0900,1500 [facility] Buspirone HCl (Buspirone Hcl 10 Mg Tablet) 10 mg PO BID [facility] Buspirone HCl (Buspirone Hcl 5 Mg Tablet) 15 mg PO BID [facility] Clopidogrel Bisulfate (Clopidogrel Bisulfate 75 Mg Tablet) 75 mg PO DAILY [facility] Empagliflozin (Empagliflozin 10 Mg Tablet) 10 mg PO DAILY [facility] Fluticasone/Vilanterol (Fluticasone/Vilanterol 100/25 Blst.W.Dev) 1 puff INHALE DAILY [facility] Folic Acid 1 mg PO DAILY [facility] Cefazolin Sodium/Dextrose (Ancef) 2 gm in 50 mls @ 100 mls/hr IV Q8H [facility] Lactulose (Lactulose 20 Gm/30 Ml Solution) 20 gm PO TID [facility] Melatonin (Melatonin 3 Mg Tablet) 6 mg PO BEDTIME PRN Ondansetron HCl Pantoprazole Sodium (Pantoprazole Sodium 20 Mg Tablet.Dr) 40 mg PO DAILY@0630 [facility] Rifaximin (Rifaximin 550 Mg Tablet) 550 mg PO BID [facility] Sodium Chloride (0.9 % Sodium Chloride Flush 3 Ml Syringe) 3 ml IVFLUSH QSHIFT [facility] Thiamine HCl (Thiamine Hcl 100 Mg Tablet) 100 mg PO DAILY [facility] Gabapentin 100 mg t.i.d. Oxycodone HCl 5 mg PO daily prn Quetiapine Fumarate 50 mg PO BEDTIME [facility] Furosemide 20 mg daily Insulin sliding scale At discharge, will need to follow-up appointments for: Infectious disease GI Psychiatry 1. Seroquel was been increased up to 100 mg p.o. q.h.s. to target mood lability. At this point we are not planning to increased anymore until his medical condition improves. 2. We will assess for the possibility of nursing home facility subacute rehab 3. Continue on same medications, blood work of April 02 came back with no changes. 4. Seroquel increased up to 200 mg p.o. q.h.s. on April 02 since there were no changes on his blood work. 5. Waiting for placement Reason for continued inpatient stay Substantial Risk for: rapid decompensation Time Spent With Patient Time: Total time managing care of this patient today ____ minutes.
[2024-04-13 20:00] VITALS: BP 121/68; PULSE 87; RESP 18; TEMP 36; O2SAT 95
[2024-04-13] MEDS: Melatonin 3 MG TABLET PO (20:03)
[2024-04-13] MEDS: QUEtiapine Fumarate 200 MG TABLET PO (20:03)
[2024-04-13 20:42] LABS: Glucose, Whole Blood 145 mg/dL (60-115)
[2024-04-14] MEDS: oxyCODONE HCl Immed Release 5 MG TABLET PO ×5 (02:09→22:34)
[2024-04-14] MEDS: 0.9 % Sodium Chloride Flush 10 ML SYRINGE 5 ML IVFLUSH ×3 (05:35→20:43)
[2024-04-14] MEDS: Pantoprazole Sodium 20 MG TABLET.DR 40 MG PO (05:35)
[2024-04-14 06:52] LABS: Glucose, Whole Blood 78 mg/dL (60-115)
[2024-04-14 08:18] VITALS: BP 121/68; PULSE 77; RESP 17; TEMP 36.3; O2SAT 95
[2024-04-14] MEDS: Clopidogrel Bisulfate 75 MG TABLET PO (08:19)
[2024-04-14] MEDS: buPROPion HCl XL 150 MG TAB.ER.24H PO ×2 (08:19→15:27)
[2024-04-14] MEDS: Thiamine HCL 100 MG TABLET PO (08:19)
[2024-04-14] MEDS: Bictegrav/Emtricit/Tenofov Ala TABLET 1 TAB PO (08:19)
[2024-04-14] MEDS: busPIRone HCl 10 MG TABLET PO ×2 (08:19→20:32)
[2024-04-14] MEDS: Furosemide 20 MG TABLET PO (08:19)
[2024-04-14] MEDS: Empagliflozin 10 MG TABLET PO (08:19)
[2024-04-14] MEDS: Folic Acid 1 MG TABLET PO (08:19)
[2024-04-14] MEDS: busPIRone HCl 5 MG TABLET 15 MG PO ×2 (08:19→20:31)
[2024-04-14] MEDS: Gabapentin 100 MG CAPSULE PO ×3 (08:20→20:32)
[2024-04-14] MEDS: Buprenorphine/Naloxone 8/2 mg FILM 1 FILM SUBLINGUAL ×3 (08:20→20:30)
[2024-04-14] MEDS: Lactulose 20 GM/30 ML SOLUTION PO ×2 (08:22→20:31)
[2024-04-14] MEDS: Fluticasone/Vilanterol 100/25 BLST.W.DEV 1 PUFF INHALE (08:22)
--- NOTE | 2024-04-14 12:43 | HO.PSYCHPN ---
Subjective Subjective Date of Service: 04/14/24 Reason For Visit: SI depression Interim History: Reviewed with team. No new issues or concerns. Pt showered today, reports feeling improved after this task. Pain reasonably managed with some discomfort Pt positive and well engaged. Medication Compliance: Yes Side effects from medications: No Attending Groups: No Review of Systems Medical Review of Systems: unchanged Review of Systems Review of Systems chronic pain Mental Status Exam Mental Status Exam Patient Appearance: Fatigued Patient Orientation: Person, Place, Time and Situation Level of Consciousness: Alert Patient Behavior: Appropriate, Talkative, Cooperative and Good Eye Contact Mood Description: Flat Affect Description: Flat Patient Cognition Impaired: No Ability to Follow Directions: Good Speech Pattern: Spontaneous Speech Memory Description: Episodic Impaired Hallucinations: None Delusions: Not Present Thought Content: positive for Circumstantial, positive for Suicidal Ideation (denies) and positive for Homicidal Ideation (denies) Judgement: Fair Diagnostics Vital Signs (24Hr): Vital Signs - 24 hr 04/13/24 20:00 04/14/24 08:18 Temperature 96.8 F 97.4 F Pulse Rate 87 77 Respiratory Rate 18 17 Blood Pressure 121/68 121/68 Pulse Oximetry 95 95 Oxygen Delivery Method Room Air Room Air BMI result Body Mass Index 23.4 Labs 04/02/24 13:28 04/02/24 08:16 Labs: Laboratory Results - last 48 hr 04/12/24 04/13/24 04/13/24 20:18 06:37 19:59 POC Glucose 101 91 145 H 04/14/24 06:34 POC Glucose 78 Imaging Radiology Impressions: ITS Impressions Abdomen Ultrasound 03/29/24 09:20 IMPRESSION: Moderate ascites. Chest X-Ray 04/08/24 12:32 IMPRESSION: Limited evaluation due to pulmonary hyperexpansion. No focal pneumonia. Medications Medications Current Medications Al Hydroxide/Mg Hydroxide (Magnesium Hydrox/Alum Hydrox 30 Ml Oral.Susp) 30 ml PO Q6H PRN PRN Reason: Heartburn/Nausea Last Admin: 03/26/24 08:57 Dose: 30 ml Bictegravir/Emtricitabine/Tenofovir (Bictegrav/Emtricit/Tenofov Ala Tablet) 1 tab PO DAILY [facility] Last Admin: 04/14/24 08:19 Dose: 1 tab Buprenorphine/Naloxone (Buprenorphine/Naloxone 8/2 Mg Film) 1 film SUBLINGUAL TID [facility] Last Admin: 04/14/24 08:20 Dose: 1 film Bupropion HCl (Bupropion Hcl Xl 150 Mg Tab.Er.24h) 150 mg PO BID@0900,1500 [facility] Last Admin: 04/14/24 08:19 Dose: 150 mg Buspirone HCl (Buspirone Hcl 10 Mg Tablet) 10 mg PO BID [facility] Last Admin: 04/14/24 08:19 Dose: 10 mg Buspirone HCl (Buspirone Hcl 5 Mg Tablet) 15 mg PO BID [facility] Last Admin: 04/14/24 08:19 Dose: 15 mg Clopidogrel Bisulfate (Clopidogrel Bisulfate 75 Mg Tablet) 75 mg PO DAILY [facility] Last Admin: 04/14/24 08:19 Dose: 75 mg Empagliflozin (Empagliflozin 10 Mg Tablet) 10 mg PO DAILY [facility] Last Admin: 04/14/24 08:19 Dose: 10 mg Fluticasone/Vilanterol (Fluticasone/Vilanterol 100/25 Blst.W.Dev) 1 puff INHALE RDAILY [facility] Last Admin: 04/14/24 08:22 Dose: 1 puff Folic Acid (Folic Acid 1 Mg Tablet) 1 mg PO DAILY [facility] Last Admin: 04/14/24 08:19 Dose: 1 mg Furosemide (Furosemide 20 Mg Tablet) 20 mg PO DAILY [facility]; Protocol Last Admin: 04/14/24 08:19 Dose: 20 mg Gabapentin (Gabapentin 100 Mg Capsule) 100 mg PO TID [facility] Last Admin: 04/14/24 08:20 Dose: 100 mg Guaifenesin/Dextromethorphan (Guaifenesin Dm 200/20/10 Ml 10 Ml Syrup) 10 ml PO Q4H PRN PRN Reason: Cough Last Admin: 04/13/24 15:12 Dose: 10 ml Hydroxyzine HCl (Hydroxyzine Hcl 25 Mg Tablet) 25 mg PO Q6H PRN PRN Reason: Anxiety Last Admin: 03/21/24 22:07 Dose: 25 mg Insulin Human Lispro (Insulin Lispro 100 Unit/Ml 3 Ml Vial) 0 unit SUBCUT BID [facility]; Protocol Last Admin: 04/14/24 08:24 Dose: Not Given Lactulose (Lactulose 20 Gm/30 Ml Solution) 20 gm PO BID [facility] Last Admin: 04/14/24 08:22 Dose: 20 gm Loperamide HCl (Loperamide Hcl 2 Mg Capsule) 2 mg PO Q6H PRN PRN Reason: Diarrhea Last Admin: 04/12/24 08:19 Dose: 2 mg Magnesium Hydroxide (Milk Of Magnesia 30 Ml Oral.Susp) 30 ml PO DAILY PRN PRN Reason: Constipation Melatonin (Melatonin 3 Mg Tablet) 3 mg PO BEDTIME [facility] Last Admin: 04/13/24 20:03 Dose: 3 mg Nicotine (Nicotine 21 Mg Patch.Td24) 21 mg TRANSDERMA DAILY PRN PRN Reason: nicotine cravings Nicotine Polacrilex (Nicotine Polacrilex 2 Mg Gum) 4 mg BUCCAL Q2H PRN PRN Reason: Nicotine Cravings Oxycodone HCl (Oxycodone Hcl Immed Release 5 Mg Tablet) 5 mg PO Q4H PRN PRN Reason: severe pain Last Admin: 04/14/24 08:19 Dose: 5 mg Pantoprazole Sodium (Pantoprazole Sodium 20 Mg Tablet.Dr) 40 mg PO DAILY@0630 [facility] Last Admin: 04/14/24 05:35 Dose: 40 mg Quetiapine Fumarate (Quetiapine Fumarate 200 Mg Tablet) 200 mg PO BEDTIME [facility] Last Admin: 04/13/24 20:03 Dose: 200 mg Sodium Chloride (0.9 % Sodium Chloride Flush 10 Ml Syringe) 5 ml IVFLUSH TID@0500,1300,2100 [facility] Last Admin: 04/14/24 05:35 Dose: 5 ml Thiamine HCl (Thiamine Hcl 100 Mg Tablet) 100 mg PO DAILY [facility] Last Admin: 04/14/24 08:19 Dose: 100 mg Trazodone HCl (Trazodone Hcl 50 Mg Tablet) 50 mg PO BEDTIME MRX1 PRN PRN Reason: Insomnia Last Admin: 03/28/24 19:54 Dose: 50 mg Allergies Allergies Allergy/AdvReac Type Severity Reaction Status Date / Time ketorolac [From Toradol] AdvReac Itching Verified 03/16/24 19:06 Assessment & Plan Assessment & Plan (1) MSSA bacteremia: Status: Acute Code(s): R78.81 - Bacteremia; B95.61 - Methicillin susceptible Staphylococcus aureus infection as the cause of diseases classified elsewhere (2) Alcoholic hepatitis: Status: Resolved Code(s): K70.10 - Alcoholic hepatitis without ascites Plan HPI: Patient is a 59-year-old male with history of depression, PTSD, opiate/alcohol dependence, HIV, alcohol hepatitis, hep C, portal hypotension/ascites, COPD who was transferred from the medical floor to psych for SI, following treatment for MSSA bacteremia, currently on IV antibiotics. Patient was being treated for MSSA bacteremia for several weeks on the hospital floor during which time he also developed: 1.encephalopathy from elevated liver enzymes/ammonia (resolved now on lactulose and rifaximin) 2.small-bowel obstruction, resolved with conservative treatment 3.Aspiration pneumonia, resolving 4.DELMI, resolved 5.Recurrent ascites with paracentesis x2 While on medical floor, patient was accepted to a sniff but left AMA; he came back the next day was admitted again and reported SI to jump off a bridge. Patient says that is mind was not right to tolerate going to a sniff so he left AMA, quickly finding himself depressed and walked over to a bridge, thinking of jumping; he says he saw the face of his sister who said come join me... Patient however self presented to the hospital, not wanting to and citing several protective factors including seeing certain family members grow up. Currently not suicidal Hospital course: 03/22 Patient reports that he is overall okay; no SI. Tired but pushing himself to get up and move around. agrees to remain at [facility] given longevity there and strong rapport with providers there. -initially going to go to SNF for physical therapy in addition to PICC line/antibiotics. Reached out to physical therapy who will re-evaluate patient next week. Of note patient left the hospital AMA and was walking around on his own quite some distance before he decided to return to the hospital. PLAN: CV Q 15 minute checks Bictegravir/Emtricitabine/Tenofovir (Bictegrav/Emtricit/Tenofov Ala Tablet) 1 tab PO DAILY [facility] Buprenorphine/Naloxone (Buprenorphine/Naloxone 8/2 Mg Film) 1 film SUBLINGUAL TID [facility] Bupropion HCl (Bupropion Hcl Xl 150 Mg Tab.Er.24h) 150 mg PO BID@0900,1500 [facility] Buspirone HCl (Buspirone Hcl 10 Mg Tablet) 10 mg PO BID [facility] Buspirone HCl (Buspirone Hcl 5 Mg Tablet) 15 mg PO BID [facility] Clopidogrel Bisulfate (Clopidogrel Bisulfate 75 Mg Tablet) 75 mg PO DAILY [facility] Empagliflozin (Empagliflozin 10 Mg Tablet) 10 mg PO DAILY [facility] Fluticasone/Vilanterol (Fluticasone/Vilanterol 100/25 Blst.W.Dev) 1 puff INHALE DAILY [facility] Folic Acid 1 mg PO DAILY [facility] Cefazolin Sodium/Dextrose (Ancef) 2 gm in 50 mls @ 100 mls/hr IV Q8H [facility] Lactulose (Lactulose 20 Gm/30 Ml Solution) 20 gm PO TID [facility] Melatonin (Melatonin 3 Mg Tablet) 6 mg PO BEDTIME PRN Ondansetron HCl Pantoprazole Sodium (Pantoprazole Sodium 20 Mg Tablet.Dr) 40 mg PO DAILY@0630 [facility] Rifaximin (Rifaximin 550 Mg Tablet) 550 mg PO BID [facility] Sodium Chloride (0.9 % Sodium Chloride Flush 3 Ml Syringe) 3 ml IVFLUSH QSHIFT [facility] Thiamine HCl (Thiamine Hcl 100 Mg Tablet) 100 mg PO DAILY [facility] Gabapentin 100 mg t.i.d. Oxycodone HCl 5 mg PO daily prn Quetiapine Fumarate 50 mg PO BEDTIME [facility] Furosemide 20 mg daily Insulin sliding scale At discharge, will need to follow-up appointments for: Infectious disease GI Psychiatry 1. Seroquel was been increased up to 100 mg p.o. q.h.s. to target mood lability. At this point we are not planning to increased anymore until his medical condition improves. 2. We will assess for the possibility of alf facility subacute rehab 3. Continue on same medications, blood work of April 02 came back with no changes. 4. Seroquel increased up to 200 mg p.o. q.h.s. on April 02 since there were no changes on his blood work. 5. Waiting for placement Reason for continued inpatient stay Substantial Risk for: rapid decompensation Time Spent With Patient Time: Total time managing care of this patient today ____ minutes.
[2024-04-14 20:00] VITALS: BP 120/73; PULSE 72; RESP 18; TEMP 36.2; O2SAT 96
[2024-04-14] MEDS: QUEtiapine Fumarate 200 MG TABLET PO (20:32)
[2024-04-14] MEDS: Melatonin 3 MG TABLET PO (20:32)
[2024-04-15 00:33] LABS: Glucose, Whole Blood 98 mg/dL (60-115)
[2024-04-15] MEDS: 0.9 % Sodium Chloride Flush 10 ML SYRINGE 5 ML IVFLUSH ×3 (05:53→20:19)
[2024-04-15] MEDS: Pantoprazole Sodium 20 MG TABLET.DR 40 MG PO (05:53)
[2024-04-15 06:55] LABS: Glucose, Whole Blood 76 mg/dL (60-115)
[2024-04-15 08:41] VITALS: BP 127/72; PULSE 71; RESP 16; TEMP 36.3; O2SAT 94
[2024-04-15] MEDS: Bictegrav/Emtricit/Tenofov Ala TABLET 1 TAB PO (08:48)
[2024-04-15] MEDS: Buprenorphine/Naloxone 8/2 mg FILM 1 FILM SUBLINGUAL ×3 (08:48→20:14)
[2024-04-15] MEDS: Gabapentin 100 MG CAPSULE PO ×3 (08:48→20:17)
[2024-04-15] MEDS: Thiamine HCL 100 MG TABLET PO (08:48)
[2024-04-15] MEDS: Lactulose 20 GM/30 ML SOLUTION PO ×2 (08:48→20:14)
[2024-04-15] MEDS: Clopidogrel Bisulfate 75 MG TABLET PO (08:48)
[2024-04-15 08:49] VITALS: BP 127/72
[2024-04-15] MEDS: oxyCODONE HCl Immed Release 5 MG TABLET PO ×3 (08:49→20:15)
[2024-04-15] MEDS: Folic Acid 1 MG TABLET PO (08:49)
[2024-04-15] MEDS: Furosemide 20 MG TABLET PO (08:49)
[2024-04-15] MEDS: busPIRone HCl 5 MG TABLET 15 MG PO ×2 (08:49→20:15)
[2024-04-15] MEDS: busPIRone HCl 10 MG TABLET PO ×2 (08:49→20:22)
[2024-04-15] MEDS: buPROPion HCl XL 150 MG TAB.ER.24H PO ×2 (08:49→14:14)
[2024-04-15] MEDS: Empagliflozin 10 MG TABLET PO (08:49)
[2024-04-15] MEDS: Fluticasone/Vilanterol 100/25 BLST.W.DEV 1 PUFF INHALE (09:12)
--- NOTE | 2024-04-15 11:25 | PC.NURSE ---
Asked clinical coordinator Magnolia about rational for Wilver needing PICC line and she spoke with Dr. Martini who stated to keep PICC line in for right now. Dr. Martini reported he would consult with hospitalist about necessity of PICC line.
--- NOTE | 2024-04-15 15:34 | P.PNPSI_ITS ---
Subjective Subjective Date of Service: 04/15/24 Reason For Visit: SI depression Subjective Notes: Conditional Voluntary Interim History: The nursing staff reported the patient had been compliant with treatment, reports some depression anxiety but much better. On interview the patient denies new symptoms, waiting for placement he feels better. Mental Status Exam Mental Status Exam Patient Appearance: Appropriate Patient Orientation: Person, Place and Situation Level of Consciousness: Awake and Appropriate Patient Behavior: Appropriate Mood Description: Constricted Affect Description: Calm Patient Cognition Impaired: Yes Ability to Follow Directions: Good Speech Pattern: Clear Hallucinations: None Delusions: Not Present Thought Process: Distracted and Slowed Thinking Thought Content: positive for [place] and positive for Poverty of Content Judgement: Fair Diagnostics Vital Signs (24Hr): Vital Signs - 24 hr 04/14/24 20:00 04/15/24 08:41 04/15/24 08:49 Temperature 97.2 F 97.4 F Pulse Rate 72 71 Respiratory Rate 18 16 Blood Pressure 120/73 127/72 127/72 Pulse Oximetry 96 94 Oxygen Delivery Method Room Air Room Air BMI result Body Mass Index 23.4 Labs 04/02/24 13:28 04/02/24 08:16 Labs: Laboratory Results - last 48 hr 04/13/24 04/14/24 04/14/24 19:59 06:34 19:51 POC Glucose 145 H 78 98 04/15/24 06:43 POC Glucose 76 Imaging Radiology Impressions: ITS Impressions Abdomen Ultrasound 03/29/24 09:20 IMPRESSION: Moderate ascites. Chest X-Ray 04/08/24 12:32 IMPRESSION: Limited evaluation due to pulmonary hyperexpansion. No focal pneumonia. Medications Medications Current Medications Al Hydroxide/Mg Hydroxide (Magnesium Hydrox/Alum Hydrox 30 Ml Oral.Susp) 30 ml PO Q6H PRN PRN Reason: Heartburn/Nausea Last Admin: 03/26/24 08:57 Dose: 30 ml Bictegravir/Emtricitabine/Tenofovir (Bictegrav/Emtricit/Tenofov Ala Tablet) 1 tab PO DAILY [facility] Last Admin: 04/15/24 08:48 Dose: 1 tab Buprenorphine/Naloxone (Buprenorphine/Naloxone 8/2 Mg Film) 1 film SUBLINGUAL TID CRISTY Last Admin: 04/15/24 14:14 Dose: 1 film Bupropion HCl (Bupropion Hcl Xl 150 Mg Tab.Er.24h) 150 mg PO BID@0900,1500 [facility] Last Admin: 04/15/24 14:14 Dose: 150 mg Buspirone HCl (Buspirone Hcl 10 Mg Tablet) 10 mg PO BID [facility] Last Admin: 04/15/24 08:49 Dose: 10 mg Buspirone HCl (Buspirone Hcl 5 Mg Tablet) 15 mg PO BID [facility] Last Admin: 04/15/24 08:49 Dose: 15 mg Clopidogrel Bisulfate (Clopidogrel Bisulfate 75 Mg Tablet) 75 mg PO DAILY [facility] Last Admin: 04/15/24 08:48 Dose: 75 mg Empagliflozin (Empagliflozin 10 Mg Tablet) 10 mg PO DAILY [facility] Last Admin: 04/15/24 08:49 Dose: 10 mg Fluticasone/Vilanterol (Fluticasone/Vilanterol 100/25 Blst.W.Dev) 1 puff INHALE RDAILY [facility] Last Admin: 04/15/24 09:12 Dose: 1 puff Folic Acid (Folic Acid 1 Mg Tablet) 1 mg PO DAILY [facility] Last Admin: 04/15/24 08:49 Dose: 1 mg Furosemide (Furosemide 20 Mg Tablet) 20 mg PO DAILY [facility]; Protocol Last Admin: 04/15/24 08:49 Dose: 20 mg Gabapentin (Gabapentin 100 Mg Capsule) 100 mg PO TID [facility] Last Admin: 04/15/24 14:14 Dose: 100 mg Guaifenesin/Dextromethorphan (Guaifenesin Dm 200/20/10 Ml 10 Ml Syrup) 10 ml PO Q4H PRN PRN Reason: Cough Last Admin: 04/13/24 15:12 Dose: 10 ml Hydroxyzine HCl (Hydroxyzine Hcl 25 Mg Tablet) 25 mg PO Q6H PRN PRN Reason: Anxiety Last Admin: 03/21/24 22:07 Dose: 25 mg Insulin Human Lispro (Insulin Lispro 100 Unit/Ml 3 Ml Vial) 0 unit SUBCUT BID [facility]; Protocol Last Admin: 04/15/24 07:56 Dose: Not Given Lactulose (Lactulose 20 Gm/30 Ml Solution) 20 gm PO BID [facility] Last Admin: 04/15/24 08:48 Dose: 20 gm Loperamide HCl (Loperamide Hcl 2 Mg Capsule) 2 mg PO Q6H PRN PRN Reason: Diarrhea Last Admin: 04/12/24 08:19 Dose: 2 mg Magnesium Hydroxide (Milk Of Magnesia 30 Ml Oral.Susp) 30 ml PO DAILY PRN PRN Reason: Constipation Melatonin (Melatonin 3 Mg Tablet) 3 mg PO BEDTIME [facility] Last Admin: 04/14/24 20:32 Dose: 3 mg Nicotine (Nicotine 21 Mg Patch.Td24) 21 mg TRANSDERMA DAILY PRN PRN Reason: nicotine cravings Nicotine Polacrilex (Nicotine Polacrilex 2 Mg Gum) 4 mg BUCCAL Q2H PRN PRN Reason: Nicotine Cravings Oxycodone HCl (Oxycodone Hcl Immed Release 5 Mg Tablet) 5 mg PO Q4H PRN PRN Reason: severe pain Last Admin: 04/15/24 14:19 Dose: 5 mg Pantoprazole Sodium (Pantoprazole Sodium 20 Mg Tablet.Dr) 40 mg PO DAILY@0630 [facility] Last Admin: 04/15/24 05:53 Dose: 40 mg Quetiapine Fumarate (Quetiapine Fumarate 200 Mg Tablet) 200 mg PO BEDTIME [facility] Last Admin: 04/14/24 20:32 Dose: 200 mg Sodium Chloride (0.9 % Sodium Chloride Flush 10 Ml Syringe) 5 ml IVFLUSH TID@0500,1300,2100 [facility] Last Admin: 04/15/24 14:14 Dose: 5 ml Thiamine HCl (Thiamine Hcl 100 Mg Tablet) 100 mg PO DAILY [facility] Last Admin: 04/15/24 08:48 Dose: 100 mg Trazodone HCl (Trazodone Hcl 50 Mg Tablet) 50 mg PO BEDTIME MRX1 PRN PRN Reason: Insomnia Last Admin: 03/28/24 19:54 Dose: 50 mg Allergies Allergies Allergy/AdvReac Type Severity Reaction Status Date / Time ketorolac [From Toradol] AdvReac Itching Verified 03/16/24 19:06 Assessment & Plan Assessment & Plan (1) MSSA bacteremia: Status: Acute Code(s): R78.81 - Bacteremia; B95.61 - Methicillin susceptible Staphylococcus aureus infection as the cause of diseases classified elsewhere (2) Alcoholic hepatitis: Status: Resolved Code(s): K70.10 - Alcoholic hepatitis without ascites Plan HPI: Patient is a 59-year-old male with history of depression, PTSD, opiate/alcohol dependence, HIV, alcohol hepatitis, hep C, portal hypotension/ascites, COPD who was transferred from the medical floor to [facility] for SI, following treatment for MSSA bacteremia, currently on IV antibiotics. Patient was being treated for MSSA bacteremia for several weeks on the hospital floor during which time he also developed: 1.encephalopathy from elevated liver enzymes/ammonia (resolved now on lactulose and rifaximin) 2.small-bowel obstruction, resolved with conservative treatment 3.Aspiration pneumonia, resolving 4.DELMI, resolved 5.Recurrent ascites with paracentesis x2 While on medical floor, patient was accepted to a sniff but left AMA; he came back the next day was admitted again and reported SI to jump off a bridge. Patient says that is mind was not right to tolerate going to a sniff so he left AMA, quickly finding himself depressed and walked over to a bridge, thinking of jumping; he says he saw the face of his sister who said come join me... Patient however self presented to the hospital, not wanting to and citing several protective factors including seeing certain family members grow up. Currently not suicidal Hospital course: 03/22 Patient reports that he is overall okay; no SI. Tired but pushing himself to get up and move around. agrees to remain at [facility] given longevity there and strong rapport with providers there. -initially going to go to SNF for physical therapy in addition to PICC line/antibiotics. Reached out to physical therapy who will re-evaluate patient next week. Of note patient left the hospital AMA and was walking around on his own quite some distance before he decided to return to the hospital. PLAN: CV Q 15 minute checks Bictegravir/Emtricitabine/Tenofovir (Bictegrav/Emtricit/Tenofov Ala Tablet) 1 tab PO DAILY [facility] Buprenorphine/Naloxone (Buprenorphine/Naloxone 8/2 Mg Film) 1 film SUBLINGUAL TID [facility] Bupropion HCl (Bupropion Hcl Xl 150 Mg Tab.Er.24h) 150 mg PO BID@0900,1500 [facility] Buspirone HCl (Buspirone Hcl 10 Mg Tablet) 10 mg PO BID [facility] Buspirone HCl (Buspirone Hcl 5 Mg Tablet) 15 mg PO BID [facility] Clopidogrel Bisulfate (Clopidogrel Bisulfate 75 Mg Tablet) 75 mg PO DAILY [facility] Empagliflozin (Empagliflozin 10 Mg Tablet) 10 mg PO DAILY [facility] Fluticasone/Vilanterol (Fluticasone/Vilanterol 100/25 Blst.W.Dev) 1 puff INHALE DAILY CRIST[facility] Folic Acid 1 mg PO DAILY [facility] Cefazolin Sodium/Dextrose (Ancef) 2 gm in 50 mls @ 100 mls/hr IV Q8H [facility] Lactulose (Lactulose 20 Gm/30 Ml Solution) 20 gm PO TID CRISTY Melatonin (Melatonin 3 Mg Tablet) 6 mg PO BEDTIME PRN Ondansetron HCl Pantoprazole Sodium (Pantoprazole Sodium 20 Mg Tablet.Dr) 40 mg PO DAILY@0630 [facility] Rifaximin (Rifaximin 550 Mg Tablet) 550 mg PO BID [facility]RI[facility] Sodium Chloride (0.9 % Sodium Chloride Flush 3 Ml Syringe) 3 ml IVFLUSH QSHIFT CRISTY Thiamine HCl (Thiamine Hcl 100 Mg Tablet) 100 mg PO DAILY [facility] Gabapentin 100 mg t.i.d. Oxycodone HCl 5 mg PO daily prn Quetiapine Fumarate 50 mg PO BEDTIME [facility]RI[facility] Furosemide 20 mg daily Insulin sliding scale At discharge, will need to follow-up appointments for: Infectious disease GI Psychiatry 1. Seroquel was been increased up to 100 mg p.o. q.h.s. to target mood lability. At this point we are not planning to increased anymore until his medical condition improves. 2. We will assess for the possibility of fdc facility subacute rehab 3. Continue on same medications, blood work of April 02 came back with no changes. 4. Seroquel increased up to 200 mg p.o. q.h.s. on April 02 since there were no changes on his blood work. 5. Waiting for placement Reason for continued inpatient stay Substantial Risk for: inability to function, rapid decompensation and med/psych decompensation Time Spent With Patient Time: Total time managing care of this patient today __20__ minutes.
[2024-04-15 20:00] VITALS: BP 127/85; PULSE 75; RESP 16; TEMP 36.6; O2SAT 92
[2024-04-15] MEDS: QUEtiapine Fumarate 200 MG TABLET PO (20:16)
[2024-04-15] MEDS: Melatonin 3 MG TABLET PO (20:16)
[2024-04-15 20:42] LABS: Glucose, Whole Blood 106 mg/dL (60-115)
[2024-04-16] MEDS: Pantoprazole Sodium 20 MG TABLET.DR 40 MG PO (05:51)
[2024-04-16] MEDS: 0.9 % Sodium Chloride Flush 10 ML SYRINGE 5 ML IVFLUSH ×2 (05:54→13:04)
[2024-04-16 06:43] LABS: Glucose, Whole Blood 87 mg/dL (60-115)
[2024-04-16 08:07] VITALS: BP 122/69; PULSE 76; RESP 18; TEMP 36.9; O2SAT 94
[2024-04-16] MEDS: oxyCODONE HCl Immed Release 5 MG TABLET PO (08:12)
[2024-04-16] MEDS: Buprenorphine/Naloxone 8/2 mg FILM 1 FILM SUBLINGUAL ×2 (08:12→14:08)
[2024-04-16] MEDS: Gabapentin 100 MG CAPSULE PO ×2 (08:12→14:09)
[2024-04-16] MEDS: Clopidogrel Bisulfate 75 MG TABLET PO (08:12)
[2024-04-16] MEDS: Furosemide 20 MG TABLET PO (08:13)
[2024-04-16] MEDS: Empagliflozin 10 MG TABLET PO (08:13)
[2024-04-16] MEDS: Bictegrav/Emtricit/Tenofov Ala TABLET 1 TAB PO (08:13)
[2024-04-16] MEDS: buPROPion HCl XL 150 MG TAB.ER.24H PO ×2 (08:13→14:09)
[2024-04-16] MEDS: busPIRone HCl 5 MG TABLET 15 MG PO (08:13)
[2024-04-16] MEDS: Thiamine HCL 100 MG TABLET PO (08:13)
[2024-04-16] MEDS: Folic Acid 1 MG TABLET PO (08:13)
[2024-04-16] MEDS: busPIRone HCl 10 MG TABLET PO (08:13)
[2024-04-16] MEDS: Loperamide HCl 2 MG CAPSULE PO (08:13)
[2024-04-16] MEDS: Fluticasone/Vilanterol 100/25 BLST.W.DEV 1 PUFF INHALE (08:19)
[2024-04-16] MEDS: Lactulose 20 GM/30 ML SOLUTION PO (08:22)
[2024-04-16 09:57] VITALS: PULSE 83; O2SAT 87
--- NOTE | 2024-04-16 13:13 | PM.PSYDC ---
DS: Providers Provider Date of Service: 04/16/24 Date of admission: 03/20/24 17:51 Date of discharge: 04/16/24 Primary care physician: Unknown Physician Consults: 03/28/24 13:04 Consult to Hospitalist Routine Comment: Consulting Provider: Hospitalist Reason For Exam: body pain, back oain, acites, cirrhosis 04/08/24 11:13 Consult to Hospitalist Routine Comment: Consulting Provider: Hospitalist Reason For Exam: cough with production and discomfort DS: Diagnosis Discharge Diagnosis (1) MSSA bacteremia: Status: Acute (2) Alcoholic hepatitis: Status: Resolved DS: Medications Discharge Medications Home Medications: Home Medications ?Medication ?Instructions ?Recorded ?Confirmed buspirone 10 mg tablet 10 mg PO BID 02/29/24 03/20/24 buspirone 30 mg tablet 15 mg PO BID 02/29/24 03/20/24 clopidogrel 75 mg tablet 75 mg PO DAILY 02/29/24 03/20/24 empagliflozin 10 mg tablet 10 mg PO DAILY 02/29/24 03/20/24 (Jardiance) folic acid 1 mg tablet 1 mg PO DAILY 02/29/24 03/20/24 melatonin 3 mg tablet 3 mg PO BEDTIME 02/29/24 03/20/24 pantoprazole 40 mg tablet,delayed 40 mg PO DAILY@0630 02/29/24 03/20/24 release quetiapine 50 mg tablet 50 mg PO BEDTIME 02/29/24 03/20/24 cefazolin 2 gram/100 mL in 100 ml IV Q8H 03/20/24 03/20/24 dextrose(iso-osmotic) intravenous piggyback Previous Rx's ?Medication ?Instructions ?Recorded bupropion HCl 150 mg 24 hr tablet, 150 mg PO BID@0900,1500 30 days 05/12/23 extended release #60 tabs fluticasone furoate 100 1 ea inhalation DAILY 30 days #60 05/12/23 mcg-vilanterol 25 mcg/dose ea inhalation powder (Breo Ellipta) insulin lispro 100 unit/mL See Protocol subcut QIDACHS #10 mL 03/15/24 subcutaneous solution (Admelog U-100 Insulin lispro) lactulose 20 gram/30 mL oral 20 g (30 mL) PO TID #1,200 mL 03/15/24 solution rifaximin 550 mg tablet (Xifaxan) 550 mg PO BID #60 tabs 03/15/24 thiamine mononitrate (vit B1) 100 100 mg PO DAILY 30 days #30 tabs 03/15/24 mg tablet buprenorphine 8 mg-naloxone 2 mg 1 film sublingual TID #90 ea 03/16/24 sublingual film (Suboxone) furosemide 20 mg tablet 20 mg PO DAILY #1 tab 03/20/24 bictegravir 50 mg-emtricitabine 1 tab PO DAILY 30 days #30 tabs 04/16/24 200 mg-tenofovir alafenam 25 mg tablet (Biktarvy) buprenorphine 8 mg-naloxone 2 mg 1 film sublingual TID 30 days #90 04/16/24 sublingual film (Suboxone) ea Mental Status Exam Mental Status Exam Patient Appearance: Well Grooomed and Appropriate Patient Orientation: Person, Place, Time and Situation Level of Consciousness: Awake and Appropriate Patient Behavior: Appropriate and Cooperative Mood Description: Withdrawn Affect Description: Calm Patient Cognition Impaired: No Ability to Follow Directions: Good Speech Pattern: Clear Hallucinations: None Delusions: Not Present Thought Process: Distracted Thought Content: positive for [place] and positive for Poverty of Content Judgement: Fair Data Data Completed and Pending Completed studies during hospitalization [Text1]: 04/09/24 04/10/24 04/10/24 19:48 06:24 20:37 POC Glucose 119 H 120 H 102 04/11/24 04/11/24 04/12/24 06:29 20:02 06:30 POC Glucose 83 140 H 89 04/12/24 04/13/24 04/13/24 20:18 06:37 19:59 POC Glucose 101 91 145 H 04/14/24 04/14/24 04/15/24 06:34 19:51 06:43 POC Glucose 78 98 76 04/15/24 04/16/24 19:55 06:36 POC Glucose 106 87 Imaging Diagnostic Imaging Impressions Abdomen Ultrasound 03/29/24 09:20 IMPRESSION: Moderate ascites. Chest X-Ray 04/08/24 12:32 IMPRESSION: Limited evaluation due to pulmonary hyperexpansion. No focal pneumonia. DS: Summary Hospital Course Hospital Course: The patient is a 59-year-old male with a past history of bipolar disorder, polysubstance dependence and other several medical comorbidities who was transferred from Medicine since he was suicidal. He was initially admitted into Medicine for acute hepatic failure due to alcohol abuse, after being medically stable transferred to this facility for continuation of care. On admission, the patient reported that he was feeling very depressed with poor sleep and anhedonia. The patient carries a diagnosis of bipolar disorder and historically he had been stable on Seroquel. We titrated up slowly up to 200 mg p.o. q.h.s. with for improvement of his symptoms. The patient has several medical comorbidities and according to Medicine and Physical therapy he should be transferred to a subacute rehab facility since he the condition at while he was in the hospital. The patient's suicidality resolved, was future oriented and he agreed on the discharge plan. Finally he was transfer to a subacute rehab after several referrals denied. At the moment of discharge the patient is safe and able to contract for safety, willing to continue treatment. Time spent discussing smoking cessation with patient: 3 to 10 minutes Status at Discharge Cognitive/behavioral status at discharge: At baseline Functional status at discharge: independent ambulation Overall status at discharge: patient is back to baseline Time Spent with Patient Time attestation: Total time managing care of this patient today _30___ minutes. Time spent: Less than 30 minutes Discharge Plan Discharge Anticipated Discharge Date/Time: 04/16/24 13:16 Patient Disposition: Xfer Inpatient Rehab Fac Discharge Diagnosis: Bipolar disorder Alcohol use disorder Opiate use disorder on agonist therapy HIV Chronic renal failure Referrals: Physician,Unknown J [Primary Care Provider] - 1 Week Discharge Medications: New buprenorphine-naloxone [Suboxone] 8-2 mg Film 1 film sublingual TID 30 Days Qty: 90 0RF loperamide 2 mg Capsule 2 mg PO Q6H PRN (Reason: Diarrhea) 30 Days Qty: 60 0RF trazodone 50 mg Tablet 50 mg PO BEDTIME MRX1 PRN (Reason: Insomnia) 30 Days Qty: 60 0RF nicotine (polacrilex) 2 mg Gum 4 mg buccal Q2H PRN (Reason: Nicotine Cravings) 30 Days Qty: 60 0RF quetiapine 200 mg Tablet 200 mg PO BEDTIME 30 Days Qty: 30 0RF nicotine 21 mg/24 hr Patch 24 Hour 21 mg transdermal DAILY PRN (Reason: nicotine cravings) 30 Days Qty: 30 0RF gabapentin 100 mg Capsule 100 mg PO TID 30 Days Qty: 90 0RF oxycodone 5 mg Tablet 5 mg PO Q4H PRN (Reason: severe pain) 30 Days Qty: 60 0RF Rx Instructions: Partial Fill upon patient request. naloxone [Narcan] 4 mg/actuation spray,non-aerosol 1 spray intranasal Q2M Qty: 2 0RF Rx Instructions: spray 1 dose into ONE nostril; alternate nostrils w each dose until help arrives Continued Biktarvy 50-200-25 mg tablet 1 tab PO DAILY 30 Days Qty: 30 0RF melatonin 3 mg tablet 3 mg PO BEDTIME 30 Days Qty: 30 0RF clopidogrel 75 mg tablet 75 mg PO DAILY 30 Days Qty: 30 0RF pantoprazole 40 mg tablet,delayed release (DR/EC) 40 mg PO DAILY@0630 30 Days Qty: 30 0RF buspirone 30 mg tablet 15 mg PO BID 30 Days Qty: 30 0RF buspirone 10 mg tablet 10 mg PO BID 30 Days Qty: 60 0RF folic acid 1 mg tablet 1 mg PO DAILY 30 Days Qty: 30 0RF furosemide 20 mg Tablet 20 mg PO DAILY 30 Days Qty: 30 0RF Protocol: Hold for SBP< HOLD for SBP < : 90 insulin lispro [Admelog U-100 Insulin lispro] 100 unit/mL Solution See Protocol subcut QIDAS Qty: 10 0RF Protocol: Insulin Correction Scale Less than or equal to 110 ---- Give (units): 0 111 to 150 Give (units): 0 151 to 200 Give (units): 2 201 to 250 Give (units): 4 251 to 300 Give (units): 6 301 to 350 Give (units): 8 Greater than 350 Give (units): 10 Call MD if Blood Glucose > : 350 bupropion HCl 150 mg Tablet Extended Release 24 Hr 150 mg PO BID@0900,1500 30 Days Qty: 60 0RF thiamine mononitrate (vit B1) 100 mg Tablet 100 mg PO DAILY 30 Days Qty: 30 0RF lactulose 20 gram/30 mL Solution 20 g PO TID 30 Days Qty: 1200 0RF fluticasone furoate-vilanterol [Breo Ellipta] 100-25 mcg/dose blister with device 1 ea inhalation DAILY 30 Days Qty: 60 0RF Jardiance 10 mg tablet 10 mg PO DAILY 30 Days Qty: 30 0RF Discontinued quetiapine 50 mg tablet 50 mg PO BEDTIME Xifaxan 550 mg Tablet 550 mg PO BID Qty: 60 0RF buprenorphine-naloxone [Suboxone] 8-2 mg film 1 film sublingual TID Qty: 90 0RF cefazolin in dextrose (iso-os) 2 gram/100 mL piggyback 100 ml IV Q8H Discharge Orders: Discharge Order (Routine); Ordered 04/16/24 Ordered By: Albert Martini Diet: Advance to usual diet Activity on Discharge: As tolerated Stand Alone Forms: Patient Portal Discharge page Print Language: Mongolian Care Plan Goals: CARE PLAN GOALS ACHIEVED IN THIS ADMISSION Health Concerns: CONTINUE TREATMENT WITH OUTPATIENT PROVIDERS Plan of Treatment: CONTINUE WITH OUTPATIENT PSYCHIATRIC PROVIDERS Assessment: MIDDLE-AGED MALE WITH A PAST HISTORY OF BIPOLAR DISORDER AND POLYSUBSTANCE DEPENDENCE WITH OTHER SEVERAL MEDICAL COMORBIDITIES ADMITTED INITIALLY TO THE HOSPITAL FOR BACTEREMIA AND CONSEQUENCE OF ALCOHOL USE DISORDER WITH CHRONIC LIVER FAILURE, MUCH STABLE SINCE PSYCHOTROPICS WERE STARTED. TRANSFERRED TO SUBACUTE REHAB FOR CONTINUATION OF TREATMENT.
== END 2024-04-16 15:35 | DRG 885 ==
LOC: HO.PM5 03-21 20:27 → HO.PGERI 03-25 12:33
PROVIDERS: Psychiatry & Neurology Psychiatry; Admitting Provider Psychiatry & Neurology Psychiatry; Visit Provider Psychiatry & Neurology Psychiatry
DX: F33.2 Major depressive disorder, recurrent severe without psychotic features (principal); R45.851 Suicidal ideations; F11.20 Opioid dependence, uncomplicated; B20 Human immunodeficiency virus [HIV] disease; F43.10 Post-traumatic stress disorder, unspecified; K70.31 Alcoholic cirrhosis of liver with ascites; F14.10 Cocaine abuse, uncomplicated; B18.2 Chronic viral hepatitis C; F10.20 Alcohol dependence, uncomplicated; J44.9 Chronic obstructive pulmonary disease, unspecified; F17.210 Nicotine dependence, cigarettes, uncomplicated; Z71.6 Tobacco abuse counseling; Z79.4 Long term (current) use of insulin; Z79.02 Long term (current) use of antithrombotics/antiplatelets; Z79.51 Long term (current) use of inhaled steroids; Z79.899 Other long term (current) drug therapy
CPT/HCPCS: 36415; 71045; 76705; 80048; 80053; 80061; 80076; 82947; 83036; 85025; 97110; 97112; 97116; 97162; 97530; J0690; J1642

== ENCOUNTER → 2024-03-20 17:51 | Outpatient (BNV) | payer OTHER, SELFPAY | PROVIDERS: Admitting Provider Psychiatry & Neurology Psychiatry; Visit Provider Psychiatry & Neurology Psychiatry | DX: F33.2 Major depressive disorder, recurrent severe without psychotic features (principal); F11.20 Opioid dependence, uncomplicated; F14.10 Cocaine abuse, uncomplicated; F43.11 Post-traumatic stress disorder, acute; F10.90 Alcohol use, unspecified, uncomplicated | CPT/HCPCS: 99231 ==

== ENCOUNTER → 2024-03-20 17:51 | Outpatient (BNV) | payer OTHER, SELFPAY | PROVIDERS: Admitting Provider Psychiatry & Neurology Psychiatry; Visit Provider Psychiatry & Neurology Psychiatry | DX: F33.2 Major depressive disorder, recurrent severe without psychotic features (principal); K70.10 Alcoholic hepatitis without ascites; R78.81 Bacteremia; B95.61 Methicillin susceptible Staphylococcus aureus infection as the cause of diseases classified elsewhere | CPT/HCPCS: 90792; 99231; 99232; 99238 ==

== ENCOUNTER → 2024-03-29 12:19 | Outpatient (BNV) | payer OTHER, SELFPAY | PROVIDERS: Visit Provider Student in an Organized Health Care Education/Training Program | DX: R18.8 Other ascites (principal) | CPT/HCPCS: 49083 ==

== ENCOUNTER → 2024-03-29 | Day surgery (SDC) | payer OTHER, SELFPAY ==
--- NOTE | ~2024-03-29 | US_ITS ---
ULTRASOUND GUIDED PARACENTESIS HISTORY: Ascites. Therapeutic and diagnostic drainage TECHNIQUE: Risks and benefits and possible complications were discussed with the patient and consent form was signed. A safe pocket of ascitic fluid was identified right lower quadrant using ultrasound guidance, and the overlying skin was marked, prepped and draped in sterile fashion. 1% lidocaine was used as a local anesthetic. Using ultrasound guidance, a 5 fr catheter was placed into the ascitic pocket. 5.0 liters of yellow fluid was removed passively. The catheter was then removed. A few residential sales representative images from before and after the examination were obtained. US/US paracentesis abd w/image IMPRESSION: Ultrasound-guided paracentesis as described above. No immediate complications
[2024-03-29] MEDS: Lidocaine HCl 1 % MPF 5 ML VIAL SUBCUT (13:43)
== END ==
PROVIDERS: Visit Provider Internal Medicine
DX: R18.8 Other ascites (principal)
CPT/HCPCS: 49083

== ENCOUNTER 2024-04-29 14:04 | Outpatient (AMB) | payer OTHER, SELFPAY ==
[2024-04-29 14:15] VITALS: PULSE 82; TEMP 36.4; O2SAT 92
--- NOTE | 2024-04-29 14:15 | MHC.OFFVIS ---
Vital Signs 04/29/24 14:15 Pulse 82 Pulse Source Pulse Oximeter Temp 97.6 F Temp Source Oral Pulse Oximetry (%) 92 Intake Visit Reasons: Ref[place] [place]blood stream infection Allergies ketorolac [From Toradol] Adverse Reaction (Verified 04/29/24 14:15) Itching HPI HPI Ref.([facility] [place]blood stream infection: Details: He has had MSSA bacteremia. He takes Biktarvy for HIV and reports good control. He has PICC line in left arm with no problems. He is at [facility]. He finishes Kefzol on 03/29. [facility] Medical History Bipolar 1 disorder Depression Suicidal ideation Decompensation of cirrhosis of liver MSSA bacteremia Cocaine abuse Opioid abuse MDD (major depressive disorder), recurrent severe, without psychosis Coccygeal pain Acute foot pain IBS (irritable bowel syndrome) COPD (chronic obstructive pulmonary disease) Prediabetes Colitis Hypertension PTSD (post-traumatic stress disorder) Osteoarthritis of both hips Opioid dependence Hepatitis C HIV infection Surgical History Status post right shoulder hemiarthroplasty History of right hip replacement Family History Other No family history of coronary artery disease Social History Household Members: None Household Members Other:: 2 Housing: Homeless Do you presently have visiting nurse or other home services: No Unable to assess alcohol history related to: Unknown Alcohol intake: current Alcohol intake frequency: 0-2 drinks per day Alcohol type: beer Comment: 1:1 sitter for SI. Patient Tobacco Use Status: Current everyday Tobacco user Tobacco use type: Cigarette Cigarette Packs Per Day: 0.5 Cigarettes Per Day: 10.0 Years Smoked: 35 e-Cigarette/Vaping Use: Never Used Second Hand Smoke Exposure: Yes Substance Use Type: Marijuana Advance Directives Date on File: 09/07/22 service: No Current occupational status: disabled Sexual orientation: Straight/Heterosexual Review of Systems Const All systems reviewed & are unremarkable except as noted in HPI and below Physical Exam Vital Signs: Last Vital Signs Temp 97.6 F 04/29/24 14:15 Pulse 82 04/29/24 14:15 Pulse Ox 92 04/29/24 14:15 Const General: cooperative Orientation/consciousness: patient oriented x3 HEENT Head: Yes normal to inspection Mouth: Normal oral and palatal mucosa present Eyes General: appearance normal, both eyes and all related structures Pupils: Equal, round and reactive pupils present Resp Effort & Inspection: normal respiratory effort Cardio Rate: regular rate Rhythm: regular rhythm GI Palpation (GI): Soft to palpation and nontender General: Yes no CVA tenderness Back/Spine/Pelvis Back: no CVA tenderness Skin General skin exam: no rashes or lesions noted Neuro General: patient oriented x3 Cranial nerves: Yes CN's II-XII intact bilaterally and Yes Equal, round and reactive pupils present Extrem General: Yes normal to inspection Psych Appearance: grossly normal Assessment & Plan Assessment & Plan (1) Bacteremia: Code(s): R78.81 - Bacteremia Category: Medical Plan: na (2) Status post PICC central line placement: Code(s): Z95.828 - Presence of other vascular implants and grafts Category: Surgical Plan: na (3) Bacteremia: Comment: No further antibiotics at this time. Remove PICC line. Code(s): R78.81 - Bacteremia Category: Medical Plan: na Orders: Orders Blood Culture X2 04/29/24 R78.81 - Bacteremia IR cvc remove any age 0804/29/24 R78.81 - Bacteremia Coding Level of Care Code Est Pt Level 3 (35922) Diagnoses Bacteremia R78.81 Status post PICC central line placement Z95.828
== END 2024-04-29 16:36 | disposition home or self-care (01) ==
LOC: HO.HID 14:04
PROVIDERS: Visit Provider Internal Medicine
DX: R78.81 Bacteremia (principal); Z95.828 Presence of other vascular implants and grafts
CPT/HCPCS: 99213

== ENCOUNTER → 2024-04-29 14:04 | Outpatient (BNVA) | payer OTHER, SELFPAY | PROVIDERS: Visit Provider Internal Medicine | DX: R78.81 Bacteremia (principal); B20 Human immunodeficiency virus [HIV] disease; Z95.828 Presence of other vascular implants and grafts | CPT/HCPCS: 99212 ==